=== PATIENT | female | born 1965 ===

== ENCOUNTER 2020-03-11 17:37 | Inpatient (IN) | payer MEDICAID, SELFPAY ==
--- NOTE | 2020-03-11 17:44 | XR_ITS ---
EXAMINATION: XR CHEST CLINICAL INFORMATION: Question: COMPARISON: Chest x-ray and chest CT 04/10/2019 TECHNIQUE: Frontal view of the chest was obtained. FINDINGS: Cardiac silhouette is stable in size. The lungs are well aerated. Similar mild diffuse coarsening of the interstitial markings. Subtle left basilar linear opacity most suggestive of atelectasis. No lobar consolidation. No pleural effusion or pneumothorax. XR/XR chest 1V IMPRESSION: Suspected left basilar atelectasis.
--- NOTE | 2020-03-11 17:44 | ECG_ITS ---
Test Reason : SOB Blood Pressure : / mmHG Vent. Rate : 081 BPM Atrial Rate : 081 BPM P-R Int : 152 ms QRS Dur : 096 ms QT Int : 418 ms P-R-T Axes : 082 -81 031 degrees QTc Int : 485 ms Normal sinus rhythm Possible Left atrial enlargement Left axis deviation Pulmonary disease pattern Prolonged QT Abnormal ECG When compared with ECG of 10-APR-2019 16:14, No significant change was found Referred By: Joel Greenwood Electronically Signed By:Johny Velazco
--- NOTE | 2020-03-11 17:52 | ED_ITS ---
HPI - SOB/Dyspnea General Chief Complaint: Dyspnea Stated Complaint: SOB Time Seen by Provider: 03/11/20 17:42 Source: patient Mode of arrival: EMS Limitations: language barrier History of Present Illness HPI Narrative: Patient history of asthma/COPD been sick for last 3 weeks her was diagnosed with COVID 4 weeks ago patient has been coughing mostly mucopurulent and increased shortness of breath for last 1 week patient denies any chest pain feeling weak tired no fever was saturating 80% at room air patie nt is on 3 L of oxygen 24 hours at home improved to 95% on non-rebreather MD elicited complaint: shortness of breath and cough Onset (ago): week(s) (3) Severity: moderate Relieving factors: oxygen Associated symptoms: pain with inspiration, cough and wheezing Treatment prior to arrival: oxygen Related Data Home oxygen amount: 3 liters Home Medications Medication Instructions Recorded Confirmed albuterol sulfate [ProAir HFA] 2 puff INHALATION Q4-6H PRN 03/11/20 03/11/20 amlodipine 5 mg PO DAILY 03/11/20 03/11/20 hydroxyzine pamoate 03/11/20 levothyroxine 175 mcg PO DAILY 03/11/20 03/11/20 lisinopril 40 mg PO DAILY 03/11/20 03/11/20 nicotine (polacrilex) 2 mg BUCCAL Q2H 03/11/20 03/11/20 pantoprazole PO 03/11/20 03/11/20 perphenazine mg 03/11/20 rosuvastatin 20 mg PO DAILY 03/11/20 03/11/20 sertraline 100 mg PO DAILY 03/11/20 03/11/20 umeclidinium [Incruse Ellipta] INHALATION 03/11/20 Allergies Allergy/AdvReac Type Severity Reaction Status Date / Time Penicillins [PENICILLINS] Allergy Unknown RED ITCHY Verified 03/11/20 18:01 RASH SEAFOOD Allergy Unknown FEVER Uncoded 12/13/19 16:37 SWELLING Review of Systems Review of Systems: REVIEW OF SYSTEMS: Pertinent positives and negatives are stated above in the history. GEN: no fevers, chills, fatigue ++ HEENT: no nasal congestion, sore throat, ear pain NEURO: no headache, dizziness, focal weakness PULM: Shortness of breath with cough CV: no chest pain, palpitations, LE edema ABD: no abdominal pain, nausea, vomiting, diarrhea : no dysuria, urgency, frequency SKIN: no rash ROS otherwise negative x 10 PMFSH Past Medical History Medical History COPD (chronic obstructive pulmonary disease) Hepatitis C HTN (hypertension) Hypothyroid Social History Social History Smoking Status: Current every day smoker Use of substances other than those prescribed or required for medical reasons: Yes Substance Use Type: Heroin Advance Directives: No Advance Directives Information Provided: Yes Physical Exam Vital Signs: Vital Signs: Last Vital Signs Temp 98.2 F 03/11/20 22:00 Pulse 89 03/11/20 22:00 Resp 14 03/11/20 22:00 BP 139/85 03/11/20 22:00 Pulse Ox 93 03/11/20 22:00 Body Mass Index 26.6 VITAL SIGNS: Reviewed. GENERAL: Well developed, well nourished, in moderate distress. HEAD: Normocephalic/atraumatic, EYES: PERRLA No pallor/icterus noted OROPHARYNX: Oral mucosa moist no oral lesions NECK: Supple, no adenopathy LUNGS: Prolonged breath sounds. Wheezing bilateral diffuse , + rales bilateral bases using accessory muscle use on non-rebreather CARDIOVASCULAR: Regular rate and rhythm without noted murmurs, no JVD or lower extremity edema. ABDOMEN: Soft, non-tender, non-distended with normal bowel sounds. No rigidity. No guarding. No palpable masses or hernias noted MUSCULOSKELETAL: No tenderness, deformities, EXTREMITIES: No cyanosis or edema. SKIN: no rashes, ulcerations, jaundice, pallor, NEUROLOGIC: Alert and oriented x 3. Strength and sensation to light touch were grossly intact normal speech MDM - SOB/Dyspnea MDM Narrative Medical decision making narrative: Patient with COPD with hypoxia on home oxygen COVID-19 is negative chest x-ray without any infiltrate patient is saturating now on Ventimask 90% will admit patient for COPD exacerbation Differential Diagnosis Differential diagnosis: Likely acute exacerbation of chronic obstructive airways disease and congestive heart failure Medical Records Attestation: I reviewed the patient's medical records. Lab Data Attestation: I reviewed the patient's lab results. Result diagrams: 03/11/20 18:25 03/11/20 18:25 Labs: Lab Results 03/11/20 03/11/20 03/11/20 Range/Units 18:25 18:25 18:25 WBC 7.8 (4.8-10.8) X10*3/uL RBC 6.31 H (4.20-5.50) X10*6/uL Hgb 17.7 H (12.0-16.0) g/dl Hct 58.1 H (37-47) % MCV 92.1 (80-98) fL MCH 28.1 (27.0-33.0) pg MCHC 30.5 L (31.0-35.0) g/dl RDW 19.2 H (11.0-16.0) % Plt Count 114 L (160-400) X10*3/uL MPV 11.8 (9.4-12.3) fL Immature Gran % (Auto) 0.3 (0.0-0.4) % Neut % (Auto) 46.2 (45-73) % Lymph % (Auto) 45.1 H (20-40) % [place] % (Auto) 5.3 (2-11) % Eos % (Auto) 2.3 (0-4) % Baso % (Auto) 0.8 (0-2) % Lymph # (Auto) 3.5 (1.2-4.9) X10*3/uL [place] # (Auto) 0.4 (0.1-1.2) X10*3/uL Eos # (Auto) 0.2 (0.0-0.4) X10*3/uL Baso # (Auto) 0.1 (0.0-0.2) X10*3/uL Abs Immat Gran (auto) 0.02 (0.00-0.03) X10*3/uL Absolute Neuts (auto) 3.6 (2.0-8.3) X10*3/uL Absolute Nucleated RBC 0.000 (0.0-0.012) X10*3/uL Nucleated RBC % (auto) 0.0 (0.0-0.2) /100WBC PT (10.8-13.0) SEC INR (0.9-1.1) D-Dimer NG/ML VBG pH (7.32-7.43) VBG pCO2 mmhg VBG pO2 mmhg VBG HCO3 mmol/L VBG O2 Saturation % VBG Base Excess mmol/L Sodium 139 (135-145) mmol/L Potassium 4.2 (3.3-5.1) mmol/l Chloride 99 (96-108) mmol/L Carbon Dioxide 29 (22-29) mmol/L Anion Gap 15 (12-20) BUN 7 L (9-16) mg/dL Creatinine 0.70 (0.5-1.4) mg/dL Estim Creat Clear Calc 92.7 Estimated GFR > 60 Random Glucose 81 (60-115) mg/dL Lactic Acid (0.5-2.0) mmol/L Calcium 8.2 L (8.4-10.2) mg/dL Total Bilirubin 0.9 (0.0-1.0) mg/dL Direct Bilirubin 0.4 (0.0-0.5) mg/dL AST 46 H (5-31) U/L ALT 25 (0-31) U/L Alkaline Phosphatase 118 H (39-117) U/L Troponin I High Sens < 3.5 (<3.5-17.0) ng/L Total Protein 8.5 H (6.5-8.0) g/dL Albumin 4.5 (3.5-5.0) g/dL Coronavirus (PCR) (Negative) Influenza Type A (PCR) (Negative) Influenza Type B (PCR) (Negative) RSV RNA Qual (PCR) (Negative) 03/11/20 03/11/20 03/11/20 Range/Units 18:25 18:25 18:44 WBC (4.8-10.8) X10*3/uL RBC (4.20-5.50) X10*6/uL Hgb (12.0-16.0) g/dl Hct (37-47) % MCV (80-98) fL MCH (27.0-33.0) pg MCHC (31.0-35.0) g/dl RDW (11.0-16.0) % Plt Count (160-400) X10*3/uL MPV (9.4-12.3) fL Immature Gran % (Auto) (0.0-0.4) % Neut % (Auto) (45-73) % Lymph % (Auto) (20-40) % [place] % (Auto) (2-11) % Eos % (Auto) (0-4) % Baso % (Auto) (0-2) % Lymph # (Auto) (1.2-4.9) X10*3/uL [place] # (Auto) (0.1-1.2) X10*3/uL Eos # (Auto) (0.0-0.4) X10*3/uL Baso # (Auto) (0.0-0.2) X10*3/uL Abs Immat Gran (auto) (0.00-0.03) X10*3/uL Absolute Neuts (auto) (2.0-8.3) X10*3/uL Absolute Nucleated RBC (0.0-0.012) X10*3/uL Nucleated RBC % (auto) (0.0-0.2) /100WBC PT 10.6 L (10.8-13.0) SEC INR 0.9 (0.9-1.1) D-Dimer 318 NG/ML VBG pH (7.32-7.43) VBG pCO2 mmhg VBG pO2 mmhg VBG HCO3 mmol/L VBG O2 Saturation % VBG Base Excess mmol/L Sodium (135-145) mmol/L Potassium (3.3-5.1) mmol/l Chloride (96-108) mmol/L Carbon Dioxide (22-29) mmol/L Anion Gap (12-20) BUN (9-16) mg/dL Creatinine (0.5-1.4) mg/dL Estim Creat Clear Calc Estimated GFR Random Glucose (60-115) mg/dL Lactic Acid 1.5 (0.5-2.0) mmol/L Calcium (8.4-10.2) mg/dL Total Bilirubin (0.0-1.0) mg/dL Direct Bilirubin (0.0-0.5) mg/dL AST (5-31) U/L ALT (0-31) U/L Alkaline Phosphatase (39-117) U/L Troponin I High Sens (<3.5-17.0) ng/L Total Protein (6.5-8.0) g/dL Albumin (3.5-5.0) g/dL Coronavirus (PCR) NEGATIVE (Negative) Influenza Type A (PCR) NEGATIVE (Negative) Influenza Type B (PCR) NEGATIVE (Negative) RSV RNA Qual (PCR) NEGATIVE (Negative) 03/11/20 Range/Units 20:14 WBC (4.8-10.8) X10*3/uL RBC (4.20-5.50) X10*6/uL Hgb (12.0-16.0) g/dl Hct (37-47) % MCV (80-98) fL MCH (27.0-33.0) pg MCHC (31.0-35.0) g/dl RDW (11.0-16.0) % Plt Count (160-400) X10*3/uL MPV (9.4-12.3) fL Immature Gran % (Auto) (0.0-0.4) % Neut % (Auto) (45-73) % Lymph % (Auto) (20-40) % [place] % (Auto) (2-11) % Eos % (Auto) (0-4) % Baso % (Auto) (0-2) % Lymph # (Auto) (1.2-4.9) X10*3/uL [place] # (Auto) (0.1-1.2) X10*3/uL Eos # (Auto) (0.0-0.4) X10*3/uL Baso # (Auto) (0.0-0.2) X10*3/uL Abs Immat Gran (auto) (0.00-0.03) X10*3/uL Absolute Neuts (auto) (2.0-8.3) X10*3/uL Absolute Nucleated RBC (0.0-0.012) X10*3/uL Nucleated RBC % (auto) (0.0-0.2) /100WBC PT (10.8-13.0) SEC INR (0.9-1.1) D-Dimer NG/ML VBG pH 7.31 L (7.32-7.43) VBG pCO2 56 mmhg VBG pO2 95 mmhg VBG HCO3 28 mmol/L VBG O2 Saturation 97.2 % VBG Base Excess -0.2 mmol/L Sodium (135-145) mmol/L Potassium (3.3-5.1) mmol/l Chloride (96-108) mmol/L Carbon Dioxide (22-29) mmol/L Anion Gap (12-20) BUN (9-16) mg/dL Creatinine (0.5-1.4) mg/dL Estim Creat Clear Calc Estimated GFR Random Glucose (60-115) mg/dL Lactic Acid (0.5-2.0) mmol/L Calcium (8.4-10.2) mg/dL Total Bilirubin (0.0-1.0) mg/dL Direct Bilirubin (0.0-0.5) mg/dL AST (5-31) U/L ALT (0-31) U/L Alkaline Phosphatase (39-117) U/L Troponin I High Sens (<3.5-17.0) ng/L Total Protein (6.5-8.0) g/dL Albumin (3.5-5.0) g/dL Coronavirus (PCR) (Negative) Influenza Type A (PCR) (Negative) Influenza Type B (PCR) (Negative) RSV RNA Qual (PCR) (Negative) ABG Data ABG results: Venous gases showed hypoxia mild CO2 retention respiratory acidosis Discharge Plan Discharge Clinical Impression: Acute exacerbation of chronic obstructive airways disease, Hypoxia Patient Disposition: Admitted As Inpatient
[2020-03-11 17:53] VITALS: BP 130/80; BP 134/92; PULSE 120; PULSE 81; RESP 20; TEMP 36.7; O2SAT 80; O2SAT 91; BMI 26.6
[2020-03-11 18:08] VITALS: PULSE 86; O2SAT 92
[2020-03-11] MEDS: Albuterol Sulfate 90 MCG 8 GM INHALER 4 PUFF INHALE (18:08)
[2020-03-11 18:34] LABS: PLT CLUMP 1; SCAN SMEAR FLAG 1
[2020-03-11 18:36] LABS: Basophils Absolute Auto 0.1 X10*3/uL (0.0-0.2); Basophils Percent Auto 0.8 % (0-2); Eosinophils Absolute Auto 0.2 X10*3/uL (0.0-0.4); Eosinophils Percent Auto 2.3 % (0-4); Hemoglobin 17.7 g/dl (12.0-16.0); Imm Gran Abs Auto 0.02 X10*3/uL (0.00-0.03); Imm Gran Pct Auto 0.3 % (0.0-0.4); Lymphocytes Absolute Auto 3.5 X10*3/uL (1.2-4.9); Lymphocytes Percent Auto 45.1 % (20-40); MANUAL DIFF FLAG NO; Mean Corpuscular HGB Conc 30.5 g/dl (31.0-35.0); Mean Corpuscular Hemoglobin 28.1 pg (27.0-33.0); Mean Corpuscular Volume 92.1 fL (80-98); Mean Platelet Volume 11.8 fL (9.4-12.3); Monocytes Absolute Auto 0.4 X10*3/uL (0.1-1.2); Monocytes Percent Auto 5.3 % (2-11); Neutrophils Absolute Auto 3.6 X10*3/uL (2.0-8.3); Neutrophils Percent Auto 46.2 % (45-73); Platelet Count 114 X10*3/uL (160-400); Red Blood Count 6.31 X10*6/uL (4.20-5.50); Red Cell Distribution Width 19.2 % (11.0-16.0); White Blood Count 7.8 X10*3/uL (4.8-10.8)
[2020-03-11 18:37] LABS: Hematocrit 58.1 % (37-47)
[2020-03-11 18:50] LABS: INTERNATIONAL NORM RATIO 0.9 (0.9-1.1); Prothrombin Time 10.6 SEC (10.8-13.0)
[2020-03-11 18:53] LABS: D Dimer 318 NG/ML
--- NOTE | 2020-03-11 18:56 | PC.NURSE ---
Pt presented to ED with NRB, SOB x 3 weeks, recently diagnosed with COVID x 1 month ago. Pt denies fevers but productive cough with green sputum. Home 02 dependent on 3lpm via nc. IV established by EMS, bld cultures obtained x 2 and other labs/COVID swab sent. Pt placed on venti mask at 55% and tolerating well with sat around 93%, now able to speak 5-6 word sentences with minimal SOB.
[2020-03-11 18:57] LABS: Anion Gap 15 (12-20); Blood Urea Nitrogen 7 mg/dL (9-16); Calcium 8.2 mg/dL (8.4-10.2); Carbon Dioxide 29 mmol/L (22-29); Chloride 99 mmol/L (96-108); Creatinine Clr Calc Pharmacy 92.7; Estimated Glomerular Filt Rate > 60; Glucose Random 81 mg/dL (60-115); Potassium 4.2 mmol/l (3.3-5.1); Sodium 139 mmol/L (135-145)
[2020-03-11 19:04] LABS: Troponin-I High Sensitivity < 3.5 ng/L (<3.5-17.0)
[2020-03-11 19:18] LABS: Lactic Acid 1.5 mmol/L (0.5-2.0)
[2020-03-11 19:23] LABS: Influenza A PCR NEGATIVE (Negative); Influenza B PCR NEGATIVE (Negative); Resp Syncy Virus RNA Qual PCR NEGATIVE (Negative); SARS COV2 PCR INHOUSE NEGATIVE (Negative)
[2020-03-11 19:59] LABS: Alanine Aminotransferase 25 U/L (0-31); Albumin Level 4.5 g/dL (3.5-5.0); Alkaline Phosphatase 118 U/L (39-117); Aspartate Amino Transferase 46 U/L (5-31); Bilirubin Direct 0.4 mg/dL (0.0-0.5); Bilirubin Total 0.9 mg/dL (0.0-1.0); Total Protein 8.5 g/dL (6.5-8.0)
[2020-03-11 20:00] VITALS: BP 132/86; PULSE 80; RESP 17; TEMP 37.1; O2SAT 90
[2020-03-11 20:21] LABS: PCO2 VBG 56 mmhg; PO2 VBG 95 mmhg; pH VBG 7.31 (7.32-7.43)
[2020-03-11 20:22] LABS: Base Excess VBG -0.2 mmol/L; HCO3 VBG 28 mmol/L; Oxygen Saturation VBG 97.2 %
[2020-03-11] MEDS: Albuterol/Iprat 2.5/0.5MG 3 ML AMPUL.NEB INHALE (20:31)
[2020-03-11] MEDS: Albuterol Sulfate (0.083%) 2.5 MG/3 ML VIAL.NEB 5 MG INHALE (20:31)
[2020-03-11 20:32] VITALS: PULSE 80; O2SAT 92
[2020-03-11] MEDS: 0.9 % Sodium Chloride 1,000 ML 999 ML IVCONT (20:36)
[2020-03-11] MEDS: cefTRIAXone sodium 1 GM in 0.9 % Sodium Chloride 50 ML IV (20:36)
[2020-03-11 22:00] VITALS: BP 139/85; PULSE 89; RESP 14; TEMP 36.8; O2SAT 93
[2020-03-12] VITALS: BP 125/77; PULSE 88; RESP 12; O2SAT 91
--- NOTE | 2020-03-12 00:25 | P.HPHOSP_ITS ---
History of Present Illness Date of Service: 03/12/20 Chief Complaint: SOB 54 y/o female with an extensive PMHX who presented from home due to SOB. Per history provided by the patient, reports that she is on home oxygen 3 liters of end stage COPD. In the recent days patient has noted worsening difficulty breathing which has not been improving with her O2 therapy and albuterol inhaler for what decided to come to the ED. Denies any chest pain, nausea, vomiting, diarrhea or fever. Denies any sick contacts or recent travel. On presentation to the ED vitals were stable but O2 sat was found to be in the 80's. At present patient is on venti mask saturating around 94-95%. Decision for admission given for COPD exacerbation. Patient given per ED albuterol, rocephin and dexamethasone. Patient seen and examined a the bedside, laying down in bed in no acute distress. ROS as above otherwise negative. Physical exam positive for mild wheezes diffusely, no rales or crackles. PMHX: COPD, HTN, HYpothyroidism, HLP, Psychosis, Smoker and Heroin abuser PSx; none Toxic habits; Smoker, Heroin abuser Review of Systems Constitutional: Constitutional: Reports as per [facility] Medical History COPD (chronic obstructive pulmonary disease) Hepatitis C HTN (hypertension) Hypothyroid Functional capacity: independent ambulation Social History Smoking Status: Current every day smoker Use of substances other than those prescribed or required for medical reasons: Yes Substance Use Type: Heroin Advance Directives: No Advance Directives Information Provided: Yes Meds Allergies Allergy/AdvReac Type Severity Reaction Status Date / Time Penicillins [PENICILLINS] Allergy Unknown RED ITCHY Verified 03/11/20 18:01 RASH SEAFOOD Allergy Unknown FEVER Uncoded 12/13/19 16:37 SWELLING Home Medications Medication Instructions Recorded Confirmed Type albuterol sulfate [ProAir HFA] 2 puff INHALATION Q4-6H PRN 03/11/20 03/11/20 History amlodipine 5 mg PO DAILY 03/11/20 03/11/20 History hydroxyzine pamoate 03/11/20 History levothyroxine 175 mcg PO DAILY 03/11/20 03/11/20 History lisinopril 40 mg PO DAILY 03/11/20 03/11/20 History nicotine (polacrilex) 2 mg BUCCAL Q2H 03/11/20 03/11/20 History pantoprazole PO 03/11/20 03/11/20 History perphenazine mg 03/11/20 History rosuvastatin 20 mg PO DAILY 03/11/20 03/11/20 History sertraline 100 mg PO DAILY 03/11/20 03/11/20 History umeclidinium [Incruse Ellipta] INHALATION 03/11/20 History Physical Exam Vital Signs and Narrative: Vital Signs: Last Vital Signs Temp 98.2 F 03/11/20 22:00 Pulse 88 03/12/20 00:00 Resp 12 03/12/20 00:00 BP 125/77 03/12/20 00:00 Pulse Ox 91 L 03/12/20 00:00 Body Mass Index 26.6 Const: General: cooperative, healthy appearing and comfortable Orientation/consciousness: oriented to person, oriented to place and oriented to time HENMT: Head: Yes normal to inspection Eyes: General: appearance normal, both eyes and all related structures Neck: Yes normal visual inspection Chest: Chest palpation & inspection: normal inspection of the chest Resp: Effort & Inspection: normal respiratory effort Auscultation: wheezes Cardio: Jugular venous distension: no JVD Rate: regular rate Rhythm: regular rhythm Heart sounds: S1 normal heart sound present and S2 normal heart sound present GI: Inspection: Yes normal to inspection Skin: General skin exam: no rashes or lesions noted Neuro: General: oriented to person, oriented to place and oriented to time Cognition (Neuro): normal cognition Extrem: General: Yes normal to inspection Results Labs CBC and Chem 7: 03/11/20 18:25 03/11/20 18:25 Labs: Laboratory Results - last 24 hr 03/11/20 03/11/20 03/11/20 18:25 18:25 18:25 MCV 92.1 MCH 28.1 MCHC 30.5 L RDW 19.2 H Plt Count 114 L MPV 11.8 Immature Gran % (Auto) 0.3 Neut % (Auto) 46.2 Lymph % (Auto) 45.1 H [place] % (Auto) 5.3 Eos % (Auto) 2.3 Baso % (Auto) 0.8 Lymph # (Auto) 3.5 [place] # (Auto) 0.4 Eos # (Auto) 0.2 Baso # (Auto) 0.1 Abs Immat Gran (auto) 0.02 Absolute Neuts (auto) 3.6 Absolute Nucleated RBC 0.000 Nucleated RBC % (auto) 0.0 PT INR D-Dimer VBG pH VBG pCO2 VBG pO2 VBG HCO3 VBG O2 Saturation VBG Base Excess Anion Gap 15 Estim Creat Clear Calc 92.7 Estimated GFR > 60 Random Glucose 81 Lactic Acid Calcium 8.2 L Total Bilirubin 0.9 Direct Bilirubin 0.4 AST 46 H ALT 25 Alkaline Phosphatase 118 H Troponin I High Sens < 3.5 Total Protein 8.5 H Albumin 4.5 Coronavirus (PCR) Influenza Type A (PCR) Influenza Type B (PCR) RSV RNA Qual (PCR) 03/11/20 03/11/20 03/11/20 18:25 18:25 18:44 MCV MCH MCHC RDW Plt Count MPV Immature Gran % (Auto) Neut % (Auto) Lymph % (Auto) [place] % (Auto) Eos % (Auto) Baso % (Auto) Lymph # (Auto) [place] # (Auto) Eos # (Auto) Baso # (Auto) Abs Immat Gran (auto) Absolute Neuts (auto) Absolute Nucleated RBC Nucleated RBC % (auto) PT 10.6 L INR 0.9 D-Dimer 318 VBG pH VBG pCO2 VBG pO2 VBG HCO3 VBG O2 Saturation VBG Base Excess Anion Gap Estim Creat Clear Calc Estimated GFR Random Glucose Lactic Acid 1.5 Calcium Total Bilirubin Direct Bilirubin AST ALT Alkaline Phosphatase Troponin I High Sens Total Protein Albumin Coronavirus (PCR) NEGATIVE Influenza Type A (PCR) NEGATIVE Influenza Type B (PCR) NEGATIVE RSV RNA Qual (PCR) NEGATIVE 03/11/20 20:14 MCV MCH MCHC RDW Plt Count MPV Immature Gran % (Auto) Neut % (Auto) Lymph % (Auto) [place] % (Auto) Eos % (Auto) Baso % (Auto) Lymph # (Auto) [place] # (Auto) Eos # (Auto) Baso # (Auto) Abs Immat Gran (auto) Absolute Neuts (auto) Absolute Nucleated RBC Nucleated RBC % (auto) PT INR D-Dimer VBG pH 7.31 L VBG pCO2 56 VBG pO2 95 VBG HCO3 28 VBG O2 Saturation 97.2 VBG Base Excess -0.2 Anion Gap Estim Creat Clear Calc Estimated GFR Random Glucose Lactic Acid Calcium Total Bilirubin Direct Bilirubin AST ALT Alkaline Phosphatase Troponin I High Sens Total Protein Albumin Coronavirus (PCR) Influenza Type A (PCR) Influenza Type B (PCR) RSV RNA Qual (PCR) Imaging Radiologist's Impressions: Impressions Chest X-Ray 03/11/20 17:44 IMPRESSION: Suspected left basilar atelectasis. Assessment and Plan (1) Acute exacerbation of chronic obstructive airways disease: Status: Acute Acute on chronic respiratory failure likely secondary to COPD exacerbation Continue with Albuterol inhalers as ordered Continue with IV steroid therapy and taper off as tolerated Continue with O2 therapy and titrate down as tolerated to home oxygen requirements Pulmnology consult in the am No antbx at present as there is no evidence of any underlying infectious process Covid test negative Follow up Bcx as ordered (2) Psychosis: Status: Acute continue with home meds as ordered (3) Hyperlipidemia: Status: Inactive continue with home meds as ordered (4) Hypothyroid: Status: Acute continue with home meds as ordered (5) HTN (hypertension): Status: Acute continue with home meds as ordered
--- NOTE | 2020-03-12 00:40 | PC.NURSE ---
PATIENT TAKING HERSELF OFF THE VENTI MASK THIS IS TOO MUCH FOR ME , PLACED ON 4L NASAL CANNULA, O2 SATS ARE AT 89% AND PATIENT DOES NOT HAVE DISTRESS AT THIS TIME. STATING NOT FEELING SOB. RESP THERAPIST AT BEDSIDE AND AWARE. PATIENT NORMALLY WEARS 3L CONTINUOUSLY AT HOME AT BASELINE. WILL MONITOR FOR CHANGES CLOSELY.
[2020-03-12 00:53] VITALS: BP 133/84; PULSE 81; RESP 12; O2SAT 89
--- NOTE | 2020-03-12 00:56 | PC.NURSE ---
CALLED [facility] FOR REPORT, AWAITING RETURN CALL FROM NURSE
[2020-03-12 06:38] VITALS: BP 133/70; PULSE 75; RESP 20; TEMP 36.6; O2SAT 93
[2020-03-12 07:28] VITALS: BP 146/94; PULSE 70; RESP 19; TEMP 36.2; O2SAT 91
[2020-03-12 08:00] VITALS: BP 146/94; PULSE 70; RESP 19; TEMP 36.2; O2SAT 91
[2020-03-12 08:17] LABS: Basophils Percent Auto 0.2 % (0-2); MANUAL DIFF FLAG SCAN; SCAN SMEAR FLAG 1
[2020-03-12 08:18] LABS: Hemoglobin 16.8 g/dl (12.0-16.0); Imm Gran Abs Auto 0.01 X10*3/uL (0.00-0.03); Imm Gran Pct Auto 0.2 % (0.0-0.4); Lymphocytes Absolute Auto 0.7 X10*3/uL (1.2-4.9); Lymphocytes Percent Auto 15.2 % (20-40); Mean Corpuscular HGB Conc 30.4 g/dl (31.0-35.0); Mean Corpuscular Hemoglobin 27.6 pg (27.0-33.0); Mean Corpuscular Volume 90.8 fL (80-98); Monocytes Absolute Auto 0.2 X10*3/uL (0.1-1.2); Monocytes Percent Auto 3.5 % (2-11); Neutrophils Absolute Auto 3.7 X10*3/uL (2.0-8.3); Neutrophils Percent Auto 80.9 % (45-73); Platelet Count 105 X10*3/uL (160-400); Red Blood Count 6.08 X10*6/uL (4.20-5.50); Red Cell Distribution Width 18.9 % (11.0-16.0); White Blood Count 4.5 X10*3/uL (4.8-10.8)
[2020-03-12 08:23] LABS: Hematocrit 55.2 % (37-47)
[2020-03-12 08:24] LABS: PLT ABN DIST 1
[2020-03-12] MEDS: amLODIPine Besylate 5 MG TABLET PO (08:41)
[2020-03-12] MEDS: lisinopriL 40 MG TABLET PO (08:42)
[2020-03-12] MEDS: Nicotine Polacrilex 2 MG GUM BUCCAL ×4 (08:42→21:30)
[2020-03-12] MEDS: Levothyroxine Sodium 175 MCG TABLET PO (08:42)
[2020-03-12] MEDS: Heparin Sodium,Porcine 5,000 UNIT/ML VIAL 5000 UNIT SUBCUT ×2 (08:43→17:20)
[2020-03-12] MEDS: Sertraline HCL 100 MG TABLET PO (08:43)
[2020-03-12] MEDS: Atorvastatin Calcium 80 MG TABLET PO (08:43)
[2020-03-12 08:50] LABS: Anion Gap 13 (12-20); Blood Urea Nitrogen 7 mg/dL (9-16); Calcium 8.3 mg/dL (8.4-10.2); Carbon Dioxide 28 mmol/L (22-29); Chloride 101 mmol/L (96-108); Creatinine Clr Calc Pharmacy 98.3; Estimated Glomerular Filt Rate > 60; Glucose Random 113 mg/dL (60-115); Potassium 4.4 mmol/l (3.3-5.1); Sodium 138 mmol/L (135-145)
[2020-03-12 10:35] LABS: SLIDE REVIEW VERIFIED
[2020-03-12] MEDS: 0.9 % Sodium Chloride Flush 3 ML SYRINGE IVFLUSH ×2 (14:11→17:21)
[2020-03-12 15:16] VITALS: BP 144/83; PULSE 80; RESP 18; TEMP 36.8; O2SAT 92
--- NOTE | 2020-03-12 15:43 | PM.CNPUL ---
History of Present Illness History of Present Illness Consult date: 03/12/20 Requesting physician: Kristen Pyle Reason for consult: COPD Chief complaint: COPD EXACERBATION Narrative: 54-year-old lady with underlying history of severe COPD on 3 L supplemental oxygen, hypertension, hypothyroidism, symptoms abuse admitted on 03/12/2020 with 3 day history of worsening dyspnea associated with wheezing. On ER evaluation patient was noted to be in acute COPD exacerbation was admitted for further treatment. She was started on systemic glucocorticoids, nebulized bronchodilators, and ceftriaxone and admitted to [facility] for further management. This morning she states that dyspnea is improving. Her within is getting better, her oxygen requirements are close to her baseline. Review of Systems Constitutional: Constitutional: Denies malaise and Denies weakness Eyes: Eyes: Denies change in vision and Denies loss of vision ENT: Denies dizziness Cardiovascular: Cardiovascular: Denies chest pain, Reports dyspnea, Reports dyspnea on exertion and Denies paroxysmal nocturnal dyspnea Respiratory: Respiratory: Denies cough, Reports dyspnea, Reports dyspnea on exertion and Reports wheezing Gastrointestinal: Gastrointestinal: Denies constipation and Denies diarrhea Genitourinary: Genitourinary: Denies difficulty voiding, Denies urinary incontinence and Denies urinary urgency Musculoskeletal: Musculoskeletal: Denies myalgias and Denies muscle weakness Integumentary/Breasts: Skin/Breast: Denies rash Neurologic: Denies dizziness, Denies loss of vision and Denies weakness Endocrine: Endocrine: Denies cold intolerance and Denies heat intolerance Allergic/Immunologic: Allergic/Immunologic: Reports wheezing PMFSH Past Medical History Medical History COPD (chronic obstructive pulmonary disease) Hepatitis C HTN (hypertension) Hyperlipidemia Hypothyroid Functional capacity: independent ambulation Social History Social History Household Members: Spouse Housing: Apartment Do you presently have visiting nurse or other home services: Yes Smoking Status: Current every day smoker Tobacco Type: Cigarette Packs Per Day: 2 Cigarettes Per Day: 40.0 Smoked in Last 30 Days: Yes Patient Interested in Nicotine Replacement: No Second Hand Smoke Exposure: Yes Use of substances other than those prescribed or required for medical reasons: No Substance Use Type: Heroin Have you been hit, kicked, punched, or otherwise hurt by someone within the past year? If so, by whom?: No Do you feel safe in your current relationship?: No Is there a partner from a previous relationship who is making you feel unsafe now?: No Are you made to feel afraid or neglected: No Advance Directives: No Advance Directives Information Provided: Yes Do you have thoughts of harming others: None Do you have a plan to hurt others: No Plan Recently lost weight without trying: No Meds Allergies Allergy/AdvReac Type Severity Reaction Status Date / Time Penicillins [PENICILLINS] Allergy Unknown RED ITCHY Verified 03/11/20 18:01 RASH SEAFOOD Allergy Unknown FEVER Uncoded 12/13/19 16:37 SWELLING Home Medications Medication Instructions Recorded Confirmed Type albuterol sulfate [ProAir HFA] 2 puff INHALATION Q4-6H PRN 03/11/20 03/11/20 History amlodipine 5 mg PO DAILY 03/11/20 03/11/20 History hydroxyzine pamoate 03/11/20 History levothyroxine 175 mcg PO DAILY 03/11/20 03/11/20 History lisinopril 40 mg PO DAILY 03/11/20 03/11/20 History nicotine (polacrilex) 2 mg BUCCAL Q2H 03/11/20 03/11/20 History pantoprazole PO 03/11/20 03/11/20 History perphenazine mg 03/11/20 History rosuvastatin 20 mg PO DAILY 03/11/20 03/11/20 History sertraline 100 mg PO DAILY 03/11/20 03/11/20 History umeclidinium [Incruse Ellipta] INHALATION 03/11/20 History methadone 78 mg PO DAILY 03/12/20 03/12/20 History Physical Exam Vital Signs: Vital Signs: Last Vital Signs Temp 98.2 F 03/12/20 15:16 Pulse 80 03/12/20 15:16 Resp 18 03/12/20 15:16 BP 144/83 H 03/12/20 15:16 Pulse Ox 92 03/12/20 15:16 Body Mass Index 26.6 Const: General: no acute distress, alert and awake Eyes: Sclerae: sclerae normal EOM: EOMs intact bilaterally Neck: Neck: Yes no lymphadenopathy, Yes trachea midline and Yes supple Resp: Effort & Inspection: normal respiratory effort and no respiratory distress Auscultation: wheezes (Bilateral expiratory) Cardio: Rate: regular rate Rhythm: regular rhythm Heart sounds: no gallops, no murmurs and no rubs GI: Palpation (GI): Soft to palpation and Other GI palpation findings present ( Nontender) Auscultation: normal bowel sounds Extrem: General: Yes no pedal edema, No clubbing and No cyanosis Results Laboratory Findings CBC and BMP: 03/12/20 07:51 03/12/20 07:51 ABG, PT/INR, D-dimer: PT/INR, D-dimer PT 10.6 SEC (10.8-13.0) L 03/11/20 18:25 INR 0.9 (0.9-1.1) 03/11/20 18:25 D-Dimer 318 NG/ML 03/11/20 18:25 Abnormal lab findings: Abnormal Labs 03/11/20 03/11/20 03/11/20 18:25 18:25 18:25 WBC RBC 6.31 H Hgb 17.7 H Hct 58.1 H MCHC 30.5 L RDW 19.2 H Plt Count 114 L Neut % (Auto) Lymph % (Auto) 45.1 H Lymph # (Auto) PT 10.6 L VBG pH BUN 7 L Calcium 8.2 L AST 46 H Alkaline Phosphatase 118 H Total Protein 8.5 H 03/11/20 03/12/20 03/12/20 20:14 07:51 07:51 WBC 4.5 L RBC 6.08 H Hgb 16.8 H Hct 55.2 H MCHC 30.4 L RDW 18.9 H Plt Count 105 L Neut % (Auto) 80.9 H Lymph % (Auto) 15.2 L Lymph # (Auto) 0.7 L PT VBG pH 7.31 L BUN 7 L Calcium 8.3 L AST Alkaline Phosphatase Total Protein Assessment and Plan (1) COPD exacerbation: Status: Acute Impression: Acute on chronic hypoxic and hypercapnic respiratory failure secondary to bronchitic exacerbation of underlying COPD. Recommendations: Agree with 5 day course of Solu-Medrol 40 mg daily. Agree with inhaled bronchodilators. Consider 5 day course of azithromycin for its anti-inflammatory effect in patients with an acute exacerbation of underlying COPD. (2) Acute on chronic respiratory failure with hypoxia and hypercapnia: Status: Acute
[2020-03-13] VITALS: BP 135/89; PULSE 66; RESP 20; TEMP 36.5; O2SAT 94
[2020-03-13] MEDS: Heparin Sodium,Porcine 5,000 UNIT/ML VIAL 5000 UNIT SUBCUT ×2 (00:51→08:11)
[2020-03-13] MEDS: 0.9 % Sodium Chloride Flush 3 ML SYRINGE IVFLUSH ×2 (00:54→08:12)
[2020-03-13] MEDS: Acetaminophen 325 MG TABLET 650 MG PO (04:28)
[2020-03-13 07:51] VITALS: BP 146/96; PULSE 72; RESP 18; TEMP 37.1; O2SAT 92
[2020-03-13 08:10] VITALS: BP 146/96; PULSE 72
[2020-03-13] MEDS: lisinopriL 40 MG TABLET PO (08:10)
[2020-03-13] MEDS: amLODIPine Besylate 5 MG TABLET PO (08:10)
[2020-03-13] MEDS: Atorvastatin Calcium 80 MG TABLET PO (08:10)
[2020-03-13] MEDS: Levothyroxine Sodium 175 MCG TABLET PO (08:11)
[2020-03-13] MEDS: Sertraline HCL 100 MG TABLET PO (08:11)
[2020-03-13] MEDS: Nicotine Polacrilex 2 MG GUM BUCCAL (08:29)
--- NOTE | 2020-03-13 10:25 | PM.DS ---
DS: Providers Provider Date of admission: 03/12/20 00:24 Primary care physician: Unknown Physician Consults: 03/12/20 00:24 Consult to Pulmonology Routine Consulting Provider: [facility] Reason for consultation: COPD exacerbation Has provider been notified: No DS: Diagnosis Discharge Diagnosis (1) COPD exacerbation: Status: Resolved (2) Acute on chronic respiratory failure with hypoxia and hypercapnia: Status: Resolved DS: Medications Discharge Medications Home Medications: Home Medications Medication Instructions Recorded Confirmed albuterol sulfate [ProAir HFA] 2 puff INHALATION Q4-6H PRN 03/11/20 03/11/20 amlodipine 5 mg PO DAILY 03/11/20 03/11/20 hydroxyzine pamoate 03/11/20 levothyroxine 175 mcg PO DAILY 03/11/20 03/11/20 lisinopril 40 mg PO DAILY 03/11/20 03/11/20 nicotine (polacrilex) 2 mg BUCCAL Q2H 03/11/20 03/11/20 pantoprazole PO 03/11/20 03/11/20 perphenazine mg 03/11/20 rosuvastatin 20 mg PO DAILY 03/11/20 03/11/20 sertraline 100 mg PO DAILY 03/11/20 03/11/20 umeclidinium [Incruse Ellipta] INHALATION 03/11/20 methadone 78 mg PO DAILY 03/12/20 03/12/20 DS: Summary Hospital Course Hospital Course: 54 y/o female with an extensive PMHX who presented from home due to SOB. Per history provided by the patient, reports that she is on home oxygen 3 liters of end stage COPD. In the recent days patient has noted worsening difficulty breathing which has not been improving with her O2 therapy and albuterol inhaler for what decided to come to the ED. Denies any chest pain, nausea, vomiting, diarrhea or fever. Denies any sick contacts or recent travel. On presentation to the ED vitals were stable but O2 sat was found to be in the 80's. At present patient is on venti mask saturating around 94-95%. Decision for admission given for COPD exacerbation. Patient given per ED albuterol, rocephin and dexamethasone. Hospital course: Patient was admitted and treated with IV corticosteroid and bronchodilators by [facility] and is feeling better and will be discharge with Prednisone for total of 5 days. Advised to stop smoking and follow up with PCP Time spent discussing smoking cessation with patient: 3 to 10 minutes Status at Discharge Functional status at discharge: independent ambulation Time Spent with Patient Time attestation: Total time spent providing and/or coordinating discharge services: Physical Exam Vital Signs: Vital Signs: Last Vital Signs Temp 98.7 F 03/13/20 07:51 Pulse 72 03/13/20 08:10 Resp 18 03/13/20 07:51 BP 146/96 H 03/13/20 08:10 Pulse Ox 92 03/13/20 07:51 Body Mass Index 26.6 Const: Other: General: AO X 3, no acute distress Resp: CTA bilateral CVS: S1,S2,RRR GI: +BS, NT, no distention Skin: No rash Neuro: motor grossly intact Psych: appropriate affect DS: Data Data Completed and Pending Labs on day of discharge: 03/11/20 17:44 ECG 12 lead EKG Stat EKG Documentation DIRECTED XR chest 1V Stat 03/11/20 17:45 Continuous Cardiac Monitoring NOW Albuterol Sulfate [Ventolin] 4 puff INHALE ONCE ONE dexAMETHasone Sod Phosphate/PF [Decadron] 10 mg IVPUSH ONCE ONE 03/11/20 18:25 Basic Metabolic Panel Stat Complete Blood Count Auto Diff Stat D Dimer Stat Liver Panel Stat Prothrombin Time INR Stat SARS-CoV2/FLU/RSV Stat Troponin-I High Sensitivity Stat 03/11/20 18:44 Lactic Acid Stat 03/11/20 20:13 Albuterol Sulfate (0.083%) [Ventolin (0.083%)] 5 mg INHALE ONCE ONE Albuterol/Iprat 2.5/0.5MG 3 ML [Duoneb] 3 ml INHALE ONCE ONE 03/11/20 20:14 Venous Blood Gas Stat cefTRIAXone sodium [Rocephin] 1 gm 0.9 % Sodium Chloride [Ns] 50 ml IV ONCE 03/11/20 20:15 0.9 % Sodium Chloride [Ns] 1,000 ml IVCONT 999 mls/hr 03/11/20 20:26 cefTRIAXone sodium [Rocephin] 1 gm .ROUTE .STK-MED ONE 03/12/20 00:21 Transfer Order Routine 03/12/20 07:51 Basic Metabolic Panel Routine Complete Blood Count Auto Diff Routine SLIDE REVIEW Routine 03/13/20 04:07 Acetaminophen [Tylenol] 650 mg PO ONCE ONE Laboratory Last Values WBC 4.5 X10*3/uL (4.8-10.8) L 03/12/20 07:51 RBC 6.08 X10*6/uL (4.20-5.50) H 03/12/20 07:51 Hgb 16.8 g/dl (12.0-16.0) H 03/12/20 07:51 Hct 55.2 % (37-47) H 03/12/20 07:51 MCV 90.8 fL (80-98) 03/12/20 07:51 MCH 27.6 pg (27.0-33.0) 03/12/20 07:51 MCHC 30.4 g/dl (31.0-35.0) L 03/12/20 07:51 RDW 18.9 % (11.0-16.0) H 03/12/20 07:51 Plt Count 105 X10*3/uL (160-400) L 03/12/20 07:51 MPV Not Reportable 03/12/20 07:51 Immature Gran % (Auto) 0.2 % (0.0-0.4) 03/12/20 07:51 Neut % (Auto) 80.9 % (45-73) H 03/12/20 07:51 Lymph % (Auto) 15.2 % (20-40) L 03/12/20 07:51 [place] % (Auto) 3.5 % (2-11) 03/12/20 07:51 Eos % (Auto) 0.0 % (0-4) 03/12/20 07:51 Baso % (Auto) 0.2 % (0-2) 03/12/20 07:51 Lymph # (Auto) 0.7 X10*3/uL (1.2-4.9) L 03/12/20 07:51 [place] # (Auto) 0.2 X10*3/uL (0.1-1.2) 03/12/20 07:51 Eos # (Auto) 0.0 X10*3/uL (0.0-0.4) 03/12/20 07:51 Baso # (Auto) 0.0 X10*3/uL (0.0-0.2) 03/12/20 07:51 Abs Immat Gran (auto) 0.01 X10*3/uL (0.00-0.03) 03/12/20 07:51 Absolute Neuts (auto) 3.7 X10*3/uL (2.0-8.3) 03/12/20 07:51 Absolute Nucleated RBC 0.000 X10*3/uL (0.0-0.012) 03/12/20 07:51 Nucleated RBC % (auto) 0.0 /100WBC (0.0-0.2) 03/12/20 07:51 Smear Tech's Comments VERIFIED 03/12/20 07:51 PT 10.6 SEC (10.8-13.0) L 03/11/20 18:25 INR 0.9 (0.9-1.1) 03/11/20 18:25 D-Dimer 318 NG/ML 03/11/20 18:25 VBG pH 7.31 (7.32-7.43) L 03/11/20 20:14 VBG pCO2 56 mmhg 03/11/20 20:14 VBG pO2 95 mmhg 03/11/20 20:14 VBG HCO3 28 mmol/L 03/11/20 20:14 VBG O2 Saturation 97.2 % 03/11/20 20:14 VBG Base Excess -0.2 mmol/L 03/11/20 20:14 Sodium 138 mmol/L (135-145) 03/12/20 07:51 Potassium 4.4 mmol/l (3.3-5.1) 03/12/20 07:51 Chloride 101 mmol/L (96-108) 03/12/20 07:51 Carbon Dioxide 28 mmol/L (22-29) 03/12/20 07:51 Anion Gap 13 (12-20) 03/12/20 07:51 BUN 7 mg/dL (9-16) L 03/12/20 07:51 Creatinine 0.66 mg/dL (0.5-1.4) 03/12/20 07:51 Estim Creat Clear Calc 98.3 03/12/20 07:51 Estimated GFR > 60 03/12/20 07:51 Random Glucose 113 mg/dL (60-115) D 03/12/20 07:51 Lactic Acid 1.5 mmol/L (0.5-2.0) 03/11/20 18:44 Calcium 8.3 mg/dL (8.4-10.2) L 03/12/20 07:51 Total Bilirubin 0.9 mg/dL (0.0-1.0) 03/11/20 18:25 Direct Bilirubin 0.4 mg/dL (0.0-0.5) 03/11/20 18:25 AST 46 U/L (5-31) H 03/11/20 18:25 ALT 25 U/L (0-31) 03/11/20 18:25 Alkaline Phosphatase 118 U/L (39-117) H 03/11/20 18:25 Troponin I High Sens < 3.5 ng/L (<3.5-17.0) 03/11/20 18:25 Total Protein 8.5 g/dL (6.5-8.0) H 03/11/20 18:25 Albumin 4.5 g/dL (3.5-5.0) 03/11/20 18:25 Coronavirus (PCR) NEGATIVE (Negative) 03/11/20 18:25 Influenza Type A (PCR) NEGATIVE (Negative) 03/11/20 18:25 Influenza Type B (PCR) NEGATIVE (Negative) 03/11/20 18:25 RSV RNA Qual (PCR) NEGATIVE (Negative) 03/11/20 18:25 Preliminary micro results at discharge 03/11/20 18:44 Blood Culture - Preliminary Blood - Venous No growth after 24 hours. 03/11/20 18:25 Blood Culture - Preliminary Blood - Venous No growth after 24 hours. Discharge Plan Discharge Anticipated Discharge Date/Time: 03/13/20 10:16 Patient Disposition: Home Health Service Referrals: [facility] [Other] - 1 Day (RESUMPTION OF CARE PLEASE CALL ABOVE NUMBER OR [facility] [phone] IF YOU HAVE NOT HEARD ANYTHING BY [facility].) Physician,Unknown [Primary Care Provider] - Discharge Medications: New prednisone 20 mg tablet 40 mg PO DAILY Qty: 8 RF: 0 Continued levothyroxine 175 mcg Tablet 175 mcg PO DAILY RF: 0 perphenazine 2 mg Tablet RF: 0 nicotine (polacrilex) 2 mg Gum 2 mg BUCCAL Q2H RF: 0 hydroxyzine pamoate 50 mg Capsule RF: 0 albuterol sulfate [ProAir HFA] 90 mcg/actuation Hfa Aerosol Inhaler 2 puff INHALATION Q4-6H PRN (Reason: Shortness Of Breath Or Wheezing) RF: 0 lisinopril 40 mg Tablet 40 mg PO DAILY RF: 0 Incruse Ellipta 62.5 mcg/actuation Blister With Device INHALATION RF: 0 sertraline 100 mg Tablet 100 mg PO DAILY RF: 0 amlodipine 5 mg Tablet 5 mg PO DAILY RF: 0 pantoprazole 20 mg Tablet,Delayed Release (Dr/Ec) PO RF: 0 rosuvastatin 20 mg Tablet 20 mg PO DAILY RF: 0 methadone 10 mg/mL Syringe 78 mg PO DAILY RF: 0 Discharge Orders: Discharge Order (Routine); Ordered 03/13/20 Ordered By: Karthikeyan Whitley Diet: advance to usual diet Activity on Discharge: As tolerated Discharge Date/Time: 03/13/20 16:02 Visit Report Forms: Patient Portal Discharge page Care Plan Goals: prevent rehospitalization for copd Health Concerns: tobacco use desorder Plan of Treatment: Take Prednisone as recommended and follow up with your Docotor in a week, call for appointment. Stop smoking and use Nicotine gum
--- NOTE | 2020-03-13 10:44 | MHC.CM.PN ---
PT DISCHARGING HOME WITH RESUMPTION OF [facility] AND HOME O2 WITH [place], PT USES 3L OF O2 AT NIGHT AND IF O2 IS BELOW 90, PT WILL NEED TRANSPORTATION HOME AND IS REQUESTING SHUTTLE. HCP:JAMEY WOLF ([facility]) [phone] [facility]: [facility] [phone] PCP: [facility]: [facility] OR [facility].
--- NOTE | 2020-03-13 13:37 | P.F2F_ITS ---
Service Date Service Date: 03/13/20 Reasons for Services Reason for intermediate: medication management Homebound: Leaving the home is medically contraindicated at this time without the asist of a device and/or another person due th the listed conditions above and below. Certification: Based on the above findings, I certify that this patient is confined to the home and needs intermittent intermediate care, physical therapy and/or speech therapy, or continues to need occupational therapy. The patient is under my care, and I have initiated the establishment of the plan of care. The patient will be followed by a physician who will periodically review the plan of care.
--- NOTE | 2020-03-14 13:16 | MHC.CM.PN ---
THIS RN RECEIVED A MESSAGE FROM CASE MANAGEMENT W[employer] INSULATION SPRAYER TO CALL CONTACT [facility]TS [facility] ABOUT NEEDING A SIGNED COPY OF DISCHARGE SUMMARY FROM 03/14/20, THIS RN SENT MESSAGE TO HOSPITALIST REQUESTING HIM TO SIGN DISCHARGE SUMMARY SO IT COULD BE FORWARDED TO [facility], THIS RN CONTACTED LAUREEN FROM [facility] AT APPROXIMATELY 12:15PM AND LET HER KNOW THE DISCHARGE PACKET, [id number] AD DISCHARGE SUMMARY(DRAFT) WERE SENT VIA [employer] AND SOON DISCHARGE SUMMARY WAS SIGNED IT WOULD BE FAXED PER HER REQUEST.
== END 2020-03-13 16:02 | disposition home health service (06) | DRG 140 ==
LOC: HO.ED 21:29 → HO.S3 03-12 00:56
PROVIDERS: Admitting Provider Internal Medicine; Emergency Provider Internal Medicine; Visit Provider Internal Medicine
DX: J44.1 Chronic obstructive pulmonary disease with (acute) exacerbation (principal); J96.21 Acute and chronic respiratory failure with hypoxia; Z99.81 Dependence on supplemental oxygen; E78.5 Hyperlipidemia, unspecified; I10 Essential (primary) hypertension; J96.22 Acute and chronic respiratory failure with hypercapnia; F11.20 Opioid dependence, uncomplicated; E03.9 Hypothyroidism, unspecified; F17.210 Nicotine dependence, cigarettes, uncomplicated; Z71.6 Tobacco abuse counseling; Z20.828 Contact with and (suspected) exposure to other viral communicable diseases; Z88.0 Allergy status to penicillin; Z79.890 Hormone replacement therapy; Z79.899 Other long term (current) drug therapy
CPT/HCPCS: 0241U; 36415; 71045; 80048; 80076; 82803; 83605; 84484; 85025; 85379; 85610; 87040; 93005; 94640; 96365; 96375; 99285; J0696; J1100; J2920

== ENCOUNTER → 2020-04-29 12:58 | Outpatient (BNVA) | payer MEDICAID, SELFPAY | PROVIDERS: PCP Family Medicine; Visit Provider Nurse Practitioner ==

== ENCOUNTER → 2020-10-21 08:02 | Outpatient (BNVA) | payer MEDICAID, SELFPAY | PROVIDERS: PCP Family Medicine; Visit Provider Nurse Practitioner | DX: K70.30 Alcoholic cirrhosis of liver without ascites (principal); K29.70 Gastritis, unspecified, without bleeding ==

== ENCOUNTER 2020-10-28 10:30 | Outpatient (REF) | payer MEDICAID, SELFPAY ==
--- NOTE | ~2020-10-28 | US_ITS ---
EXAMINATION: US ABDOMEN COMPLETE CLINICAL INFORMATION: Alcoholic cirrhosis of liver without ascites. COMPARISON: CT abdomen and pelvis 05/19/2018. Ultrasound abdomen 07/15/2012. TECHNIQUE: Real-time imaging of the abdominal viscera. FINDINGS: PANCREAS: Normal. ABDOMINAL AORTA: The proximal, mid, and distal segments are normal in caliber. INFERIOR VENA CAVA: Visualized portions are normal. LIVER: There is diffuse increased liver parenchymal echogenicity. No focal hepatic mass is seen. The liver is normal in size and contour. No biliary ductal dilatation. GALLBLADDER: Normal. The gallbladder is physiologically distended without evidence of stones, sludge, polyps, wall thickening or pericholecystic fluid. COMMON BILE DUCT: Normal in caliber measuring 0.3 cm in diameter. RIGHT KIDNEY: Normal. No hydronephrosis. No renal calculi or focal parenchymal lesions. The kidney measures 11.2 cm in maximum dimension. LEFT KIDNEY: Normal. No hydronephrosis. No renal calculi or focal parenchymal lesions. The kidney measures 10.6 cm in maximum dimension. SPLEEN: Normal. The spleen measures 10.2 cm in maximum dimension. FREE FLUID: None. US/US abdomen complete IMPRESSION: There is generalized increase in hepatic echotexture, consistent with fatty infiltration or hepatocellular disease. Please correlate clinically. Provided history of cirrhosis noted. No focal hepatic mass or intrahepatic biliary dilatation is seen.
== END 2020-10-28 10:31 | disposition home or self-care (01) ==
LOC: HO.US 10:30
PROVIDERS: PCP Family Medicine; Visit Provider Nurse Practitioner
DX: K70.30 Alcoholic cirrhosis of liver without ascites (principal)
CPT/HCPCS: 76700

== ENCOUNTER 2021-09-24 14:54 | Outpatient (REF) | payer MEDICAID, SELFPAY ==
[2021-09-24 15:13] LABS: MANUAL DIFF FLAG NO
[2021-09-24 15:19] LABS: Basophils Absolute Auto 0.1 X10*3/uL (0.0-0.2); Basophils Percent Auto 1.1 % (0-2); Eosinophils Absolute Auto 0.1 X10*3/uL (0.0-0.4); Eosinophils Percent Auto 2.5 % (0-4); Imm Gran Abs Auto 0.01 X10*3/uL (0.00-0.03); Imm Gran Pct Auto 0.2 % (0.0-0.4); Lymphocytes Absolute Auto 1.6 X10*3/uL (1.2-4.9); Mean Corpuscular HGB Conc 32.1 g/dl (31.0-35.0); Mean Corpuscular Hemoglobin 31.6 pg (27.0-33.0); Mean Corpuscular Volume 98.3 fL (80.0-98.0); Mean Platelet Volume 12.2 fL (9.4-12.3); Monocytes Absolute Auto 0.5 X10*3/uL (0.1-1.2); Monocytes Percent Auto 8.6 % (2-11); Neutrophils Percent Auto 57.6 % (45-73); Platelet Count 101 X10*3/uL (160-400); Red Blood Count 6.01 X10*6/uL (4.20-5.50); Red Cell Distribution Width 20.5 % (11.0-16.0); White Blood Count 5.3 X10*3/uL (4.8-10.8)
[2021-09-24 15:22] LABS: Hematocrit 59.1 % (37.0-47.0)
[2021-09-24 15:31] LABS: Ammonia 39 umol/L (13-55)
[2021-09-24 15:37] LABS: Alanine Aminotransferase 37 U/L (0-31); Albumin Level 4.2 g/dL (3.5-5.0); Alkaline Phosphatase 126 U/L (39-117); Anion Gap 15 (12-20); Aspartate Amino Transferase 71 U/L (5-31); Bilirubin Total 1.3 mg/dL (0.0-1.0); Blood Urea Nitrogen 10 mg/dL (9-16); Calcium 9.1 mg/dL (8.4-10.2); Carbon Dioxide 30 mmol/L (22-29); Chloride 95 mmol/L (96-108); Estimated Glomerular Filt Rate 58; Glucose Random 94 mg/dL (60-115); Potassium 4.6 mmol/L (3.3-5.1); Sodium 135 mmol/L (135-145); Total Protein 8.3 g/dL (6.5-8.0)
[2021-09-24 15:57] LABS: TSH reflex Free T4 23.42 uIU/mL (0.32-4.0)
[2021-09-29 13:11] LABS: Alpha Fetoprotein 3.5 ng/mL
== END 2021-09-24 14:55 | disposition home or self-care (01) ==
LOC: HO.LAB 14:54
PROVIDERS: PCP Family Medicine; Visit Provider Nurse Practitioner
DX: K70.30 Alcoholic cirrhosis of liver without ascites (principal); K21.9 Gastro-esophageal reflux disease without esophagitis; R11.2 Nausea with vomiting, unspecified; R14.0 Abdominal distension (gaseous)
CPT/HCPCS: 36415; 80053; 82105; 82140; 84439; 84443; 85025; 99212

== ENCOUNTER 2022-07-07 14:08 | Outpatient (REF) | payer MEDICAID, SELFPAY ==
--- NOTE | ~2022-07-07 | MM_ITS ---
EXAMINATION: MM SCREENING DIGITAL BREAST TOMOSYNTHESIS, BILATERAL CLINICAL INFORMATION: Screening. Asymptomatic. The lifetime risk of breast cancer based on the Tyrer-Cuzick Model is 12%. COMPARISON: Mammography: 08/08/2015, 10/19/2012 TECHNIQUE: Digital breast tomosynthesis is performed in both the craniocaudal and mediolateral oblique views along with computer-aided detection (CAD). Synthesized 2D images are generated from the tomosynthesis. FINDINGS: There are scattered areas of fibroglandular density (ACR BI-RADS breast composition Category b). There are no significant masses, abnormal calcifications, or other abnormalities. Parenchymal pattern is similar to prior studies. There is no developing density or architectural abnormality. The axilla and skin contours are unremarkable. No significant changes. MM/MM tomosynthesis screening BI IMPRESSION: No mammographic evidence of malignancy. ASSESSMENT: BI-RADS 1: Negative RECOMMENDATION: Routine annual mammography screening. This patient's information was entered into a reminder system with a target due date for their next mammogram.
--- NOTE | ~2022-07-07 | MM_ITS ---
EXAMINATION: BONE DENSITOMETRY CLINICAL INDICATION: Steroid use. COMPARISON: None (current study represents initial baseline exam). TECHNIQUE: Using a [employer] DXA System (software version: 13.1) manufactured by [employer], dual-energy x-ray absorptiometry was performed of the lumbar spine and left hip. The images are of good technical quality. Summary results are attached. FINDINGS: AP SPINE L1-L4: BMD 1.194 g/cm2, Z-score 1.2, T-score 0.1, normal. LEFT FEMUR, NECK: BMD 0.954 g/cm2, Z-score 0.6, T-score -0.6, normal. LEFT FEMUR, TOTAL: BMD 0.940 g/cm2, Z-score 0.3, T-score -0.5, normal. IDENTIFIED RISK FACTORS: Menopause, tobacco use (current smoker), glucocorticoids (chronic). HISTORY OF FRACTURE: None listed. MEDICATIONS: Vitamin D. MM/XR DEXA axial skeleton IMPRESSION: 1. DIAGNOSIS: Normal bone density based on the lowest T-score value of -0.6 in the femoral neck applying World Health Organization criteria. 2. 10-YEAR FRACTURE RISK PREDICTION, FRAX: According to the guidelines, FRAX calculation should only be performed on patients in the osteopenia bone density category. Therefore, FRAX was not performed on this patient. 3. Treatment Recommendations: NOF guidelines recommend consideration for treatment in postmenopausal women and men age 50 and older presenting with the following: -A hip or vertebral (clinical or morphometric) fracture. -T-score less than or equal to -2.5 at the femoral neck or spine after appropriate evaluation to exclude secondary causes. -Low bone mass at the hip or spine and a 10-year fracture probability by FRAX of greater than or equal to 3% for hip fracture or greater than or equal to 20% for major osteoporotic fracture based on the [place] adapted WHO algorithm. 4. Other Recommendations: All treatment decisions require clinical judgment and consideration of individual patient factors, including patient preferences, comorbidities, previous drug use, risk factors not captured in the FRAX model (e.g. frailty, falls, vitamin D deficiency, increased bone turnover, interval significant decline in bone density) and possible under or overestimation of fracture risk by FRAX. FUTURE SCAN RECOMMENDATION: People with diagnosed cases of osteoporosis or at high risk for fracture should have regular bone mineral density tests. For patients eligible for Medicare, routine testing is allowed once every 2 years. The testing frequency can be increased to one year for patients who have rapidly progressing disease, those who are receiving or discontinuing medical therapy to restore bone mass, or have additional risk factors.
== END 2022-07-07 14:09 | disposition home or self-care (01) ==
LOC: HO.MAMMO 14:08
PROVIDERS: PCP Family Medicine; Visit Provider Family Medicine
DX: Z12.31 Encounter for screening mammogram for malignant neoplasm of breast (principal); Z13.820 Encounter for screening for osteoporosis; Z91.89 Other specified personal risk factors, not elsewhere classified; Z79.51 Long term (current) use of inhaled steroids; Z78.0 Asymptomatic menopausal state
CPT/HCPCS: 77063; 77067; 77080

== ENCOUNTER 2022-10-01 13:49 | Outpatient (AMB) | payer MEDICAID, SELFPAY ==
--- NOTE | 2022-10-01 13:51 | MHC.OFFVIS ---
Intake Vital Signs 10/01/22 13:55 Height 5 ft 5 in Weight 153 lb 7.068 oz BMI 25.5 BP 139/84 Blood Pressure Location Rt brachial Position Sitting Pulse 101 H Intake Visit Reasons: 6 months follow up Intake Note: Patient presents to in office visit today in follwo up cirrhosis. Patient cc: Pt c/o gas, nausea, abdominal discomfort, bloating, and occasional vomiting. She also reports occasional diarrhea and GERD. Denies other GI symptoms. 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 Accompanied by: Self / Same As Patient Allergies Penicillins [PENICILLINS] Allergy (Unknown, Verified 10/21/20 08:02) RED ITCHY RASH SEAFOOD Allergy (Unknown, Uncoded 12/13/19 16:37) FEVER SWELLING HPI 6 months follow up HPI Details Assessment & Plan (1) Alcoholic cirrhosis: ?Comment: BASELINE LABS 03/11/2012 Plt Count 105 L Hemoglobin A1c Total Bilirubin 0.9 Direct Bilirubin 0.4 AST 46 H ALT 25 Alkaline Phosphatase 118 H Hemoglobin A1c 6.4 Free T4 0.44 L TSH 3rd Generation 48.28 H Ethyl Alcohol < 10 10/22/19 Hep Bs Antigen NEGATIVE Hep C Viral Load <15, <1.18 HIV 1&2 Antigen & Ab NONREACTIVE CURRENT LABS * ULTRASOUND OF THE ABDOMEN? 10/28/20 IMPRESSION: There is generalized increase in hepatic echotexture, consistent with fatty infiltration or hepatocellular disease. Please correlate clinically. Provided history of cirrhosis noted. No focal hepatic mass or intrahepatic biliary dilatation is seen. ?Code(s): K70.30 - Alcoholic cirrhosis of liver without ascites ?Plan: Welsh #Female family member translates per patient request She is on oxygen via 3L n/c now. She says she forgot to do the lab work last year. I will send her again. It is also time to repeat the US. She is still c/o phlem and nausea when she eats. She does have bloating, but denies CIC. I will try rx for simethicone and advise them to buy OTC Gas x if this is not covered. She is only on protonix 20mg so will increase it to 40mg and add famotidine back in qhs 20mg. This may help her nausea more, but it may be r/t gas trapping. ROV after US.? NEXT OFFICE VISIT CONSIDER GETTING FERRITIN AND HEMOCHROMATOSIS SCREEN.? HEMOGLOBIN/HEMATOCRIT VERY HIGH. (2) GERD (gastroesophageal reflux disease): ?Code(s): K21.9 - Gastro-esophageal reflux disease without esophagitis (3) Nausea and vomiting: ?Code(s): R11.2 - Nausea with vomiting, unspecified (4) Abdominal bloating: ?Code(s): R14.0 - Abdominal distension (gaseous) ? ? ? Orders: Orders US abdomen limited Today K21.9 - Gastro-eso phageal reflux dis ease without esoph agitis, K70.30 - A lcoholic cirrhosis of liver without ascites, R11.2 - N ausea with vomitin g, unspecified ? Medications: New simethicone ?? aft er meals 180 mg? PO BID 30 days 60 caps 3RF G R14.0 - Abdominal distension (gaseou s) ? famotidine (Pepcid ) 40 mg? PO BEDTIME 30 tabs 6RF K21.9 - Gastro-eso phageal reflux dis ease without esoph agitis ? famotidine (Pepcid ) 20 mg? PO BEDTIME 30 tabs 6RF K21.9 - Gastro-eso phageal reflux dis ease without esoph agitis ? THE LABS: ULTRASOUND OF THE ABDOMEN SCHEDULED FOR 03/19/2022 YET WAS NEVER OBTAINED TODAY'S VISIT Welsh #Mandi Live She has been lost to follow up since 08/2021. She says she is not drinking ETOH I hold off because of all of my medicines. She says she has not wanted to leave her house when it is too hot or too rainy and this gets in the way of her appts. she is on oxygen portable still at 4L-6L n/c. She does not know the names of her medicines, but she says that only certain foods like sauces and iced tea cause her HB. In the past she was maintained on famotidine and simethicone successfully. She is not complaining of the symptoms so I soon she still on the medications. She is due for more labs and US for her liver and she is agreeable. ROV 6 weeks. [facility], [facility] Medical History COPD (chronic obstructive pulmonary disease) Hepatitis C HTN (hypertension) Hyperlipidemia Hypothyroid Family History Father HTN (hypertension) Mother Gastritis Ovarian cancer Arthritis Son Thyroid disease Social History Household Members: Spouse Housing: Apartment Do you presently have visiting nurse or other home services: Yes Alcohol intake: current Alcohol intake frequency: does not drink Cigarette Packs Per Day: 1 Cigarettes Per Day: 20.0 Second Hand Smoke Exposure: Yes Substance Use Type: Heroin service: No Current occupational status: unemployed Review of Systems Const Denies fatigue, Denies fever(s), Denies night sweats, Denies poor appetite and Denies weight loss ENT Reports Normal hearing present, Denies dental pain, Denies dysphagia, Denies hearing loss, Denies mouth pain, Denies odynophagia, Denies throat swelling, Denies tongue swelling and Reports other (Dentition adequate) Card Reports no additional complaints and Reports dyspnea on exertion Resp Reports dyspnea on exertion GI Denies abdominal pain, Denies melena, Denies bloating, Denies hematochezia, Denies constipation, Denies GI cramping, Denies dysphagia, Denies excessive flatus, Denies early satiety, Reports heartburn, Denies diarrhea, Denies nausea, Denies odynophagia, Denies vomiting and Denies hematemesis Musc Reports myalgias Skin/Breast Denies pruritus, Denies lesions, Denies rash and Denies jaundice Neuro Reports Normal hearing present and Denies Abnormal speech present Endo Denies fatigue Aller/Immun Denies throat swelling and Denies tongue swelling Physical Exam Vital Signs: Last Vital Signs Pulse 101 H 10/01/22 13:55 BP 139/84 10/01/22 13:55 BMI result Body Mass Index 25.5 Const General: cooperative, no acute distress, well developed and well groomed Nutritional Appearance: average body habitus and well nourished Orientation/consciousness: oriented to person, oriented to place and oriented to time Limitations: language barrier and other limitations HEENT Head: Yes normocephalic and Yes atraumatic Eyes General: appearance normal, both eyes and all related structures Pupils: Equal, round and reactive pupils present Neck Neck: Yes normal visual inspection and Yes no lymphadenopathy Thyroid: Thyroid normal Resp Effort & Inspection: normal respiratory effort and able to speak in complete sentences Auscultation: clear to auscultation bilaterally Cardio Rate: regular rate Rhythm: regular rhythm Heart sounds: Normal, physiologic split S2 sound present Peripheral pulses: radial pulses present and posterior tibial pulses present GI Inspection: No distended, No Abdominal panniculus present and Yes obesity Palpation (GI): Soft to palpation, nontender, no guarding, not rigid and Hepatosplenomegaly present (extent difficult to ascertain r/t her breathing and ticklish) Percussion: Yes normal to percussion Auscultation: normal bowel sounds Rectal Exam - Female: deferred Skin General skin exam: no rashes or lesions noted, turgor normal, skin not dry, no jaundice, No spider nevi and no striae Rashes: no rashes Nails: normal Neuro General: oriented to person, oriented to place and oriented to time Cranial nerves: Yes Equal, round and reactive pupils present and Yes Normal hearing present Speech: No Abnormal speech present Extrem General: Yes normal to inspection, No clubbing, No cyanosis and No edema Psych Appearance: grossly normal and well kempt Mental Status: mental status grossly normal Speech and movement: Normal speech and movement present Affect: normal affect Attitude: cooperative Thought process: Normal thought process present and not confabulating Thought content: Normal thought content present Insight: Limited insight present (Psych) Judgement: Limited judgement present (Psych) Assessment & Plan Assessment & Plan (1) Alcoholic cirrhosis: Comment: BASELINE LABS 03/11/2012 Plt Count 105 L Hemoglobin A1c Total Bilirubin 0.9 Direct Bilirubin 0.4 AST 46 H ALT 25 Alkaline Phosphatase 118 H Hemoglobin A1c 6.4 Free T4 0.44 L TSH 3rd Generation 48.28 H Ethyl Alcohol < 10 10/22/19 Hep Bs Antigen NEGATIVE Hep C Viral Load <15, <1.18 HIV 1&2 Antigen & Ab NONREACTIVE CURRENT LABS * ULTRASOUND OF THE ABDOMEN 10/28/20 IMPRESSION: There is generalized increase in hepatic echotexture, consistent with fatty infiltration or hepatocellular disease. Please correlate clinically. Provided history of cirrhosis noted. No focal hepatic mass or intrahepatic biliary dilatation is seen. Code(s): K70.30 - Alcoholic cirrhosis of liver without ascites Plan: Welsh #Mandi Jin She has been lost to follow up since 08/2021. She says she is not drinking ETOH I hold off because of all of my medicines. She says she has not wanted to leave her house when it is too hot or too rainy and this gets in the way of her appts. she is on oxygen portable still at 4L-6L n/c. She does not know the names of her medicines, but she says that only certain foods like sauces and iced tea cause her HB. In the past she was maintained on famotidine and simethicone successfully. She is not complaining of the symptoms so I soon she still on the medications. She is due for more labs and US for her liver and she is agreeable. ROV 6 weeks. (2) Nausea and vomiting: Code(s): R11.2 - Nausea with vomiting, unspecified (3) GERD (gastroesophageal reflux disease): Code(s): K21.9 - Gastro-esophageal reflux disease without esophagitis (4) Diarrhea: Code(s): R19.7 - Diarrhea, unspecified (5) Abdominal bloating: Code(s): R14.0 - Abdominal distension (gaseous) Orders: Orders Alpha Fetoprotein 10/01/22 K70.30 - Alcoholic cirrhosis of liver without ascites Ammonia 10/01/22 K70.30 - Alcoholic cirrhosis of liver without ascites Comprehensive Met. Panel 10/01/22 K70.30 - Alcoholic cirrhosis of liver without ascites Ferritin 10/01/22 K70.30 - Alcoholic cirrhosis of liver without ascites Gamma Glutamyl Transpeptidase 10/01/22 K70.30 - Alcoholic cirrhosis of liver without ascites Complete Blood Count Auto Diff 10/01/22 K70.30 - Alcoholic cirrhosis of liver without ascites US abdomen comp w elastography 10/01/22 K70.30 - Alcoholic cirrhosis of liver without ascites Medications: Refilled simethicone after meals 180 mg PO BID 60 caps 6RF 30 days R14.0 - Abdominal distension (gaseous) famotidine (Pepcid) 40 mg PO BEDTIME 30 tabs 6RF K21.9 - Gastro-esophageal reflux disease without esophagitis Coding Level of Care Code Est Pt Level 3 (38226) Diagnoses Alcoholic cirrhosis K70.30 Nausea and vomiting R11.2 GERD (gastroesophageal reflux disease) K21.9 Diarrhea R19.7 Abdominal bloating R14.0
[2022-10-01 13:55] VITALS: BP 139/84; PULSE 101; BMI 25.5
== END 2022-10-01 14:17 | disposition home or self-care (01) ==
PROVIDERS: PCP Family Medicine; Visit Provider Nurse Practitioner
DX: K70.30 Alcoholic cirrhosis of liver without ascites (principal); R11.2 Nausea with vomiting, unspecified; K21.9 Gastro-esophageal reflux disease without esophagitis; R19.7 Diarrhea, unspecified; R14.0 Abdominal distension (gaseous)
CPT/HCPCS: 99213

== ENCOUNTER → 2022-10-01 13:49 | Outpatient (BNVA) | payer MEDICAID, SELFPAY | PROVIDERS: PCP Family Medicine; Visit Provider Nurse Practitioner | DX: K70.30 Alcoholic cirrhosis of liver without ascites (principal); K21.9 Gastro-esophageal reflux disease without esophagitis; R11.2 Nausea with vomiting, unspecified; R14.0 Abdominal distension (gaseous) | CPT/HCPCS: 99213 ==

== ENCOUNTER 2022-12-14 12:49 | Outpatient (REF) | payer MEDICAID, SELFPAY ==
[2022-12-14 16:21] LABS: Imm Gran Abs Auto 0.02 X10*3/uL (0.00-0.03); Imm Gran Pct Auto 0.3 % (0.0-0.4); PLT CLUMP 1; Red Cell Distribution Width 16.1 % (11.0-16.0); SCAN SMEAR FLAG 1
[2022-12-14 16:23] LABS: Basophils Absolute Auto 0.1 X10*3/uL (0.0-0.2); Basophils Percent Auto 0.9 % (0-2); Eosinophils Absolute Auto 0.2 X10*3/uL (0.0-0.4); Eosinophils Percent Auto 2.5 % (0-4); Hemoglobin 18.5 g/dl (12.0-16.0); Lymphocytes Absolute Auto 1.9 X10*3/uL (1.2-4.9); Lymphocytes Percent Auto 29.9 % (20-40); Mean Corpuscular HGB Conc 32.6 g/dl (31.0-35.0); Mean Corpuscular Volume 107.4 fL (80.0-98.0); Mean Platelet Volume 11.2 fL (9.4-12.3); Monocytes Absolute Auto 0.4 X10*3/uL (0.1-1.2); Monocytes Percent Auto 6.3 % (2-11); NRBC Pct Auto 0.3 /100WBC (0.0-0.2); Neutrophils Absolute Auto 3.9 x10*3/uL (2.0-8.3); Neutrophils Percent Auto 60.1 % (45-73); Red Blood Count 5.29 X10*6/uL (4.20-5.50)
[2022-12-14 16:26] LABS: Hematocrit 56.8 % (37.0-47.0)
[2022-12-14 16:27] LABS: MANUAL DIFF FLAG NO; Platelet Count 115 X10*3/uL (160-400); White Blood Count 6.5 X10*3/uL (4.8-10.8)
[2022-12-14 16:38] LABS: Estimated Average Glucose 91 mg/dL; Hemoglobin A1c % 4.8 % (<6.0); INTERNATIONAL NORM RATIO 0.9 (0.9-1.1); Prothrombin Time 10.4 SEC (11.1-13.3)
[2022-12-14 16:51] LABS: Alanine Aminotransferase 41 U/L (0-31); Albumin Level 4.3 g/dL (3.5-5.0); Alkaline Phosphatase 180 U/L (39-117); Anion Gap 13 (12-20); Aspartate Amino Transferase 87 U/L (5-31); Bilirubin Total 1.4 mg/dL (0.0-1.0); Blood Urea Nitrogen 4 mg/dL (9-16); Calcium 9.6 mg/dL (8.4-10.2); Carbon Dioxide 34 mmol/L (22-29); Chloride 96 mmol/L (96-108); Estimated Glomerular Filt Rate > 60; Glucose Random 97 mg/dL (60-115); Potassium 3.8 mmol/L (3.3-5.1); Sodium 139 mmol/L (135-145); Total Protein 8.5 g/dL (6.5-8.0)
[2022-12-14 16:52] LABS: Cholesterol 305 mg/dL (<200); HDL Cholesterol 54 mg/dL (>40); Triglycerides 549 mg/dL (<150)
[2022-12-14 17:10] LABS: Ferritin 182 ng/mL (10-250); TSH reflex Free T4 32.45 uIU/mL (0.32-4.0)
[2022-12-14 17:22] LABS: Folate 15.5 ng/mL (> or = 4.0); Vitamin B12 539 pg/mL (200-900)
[2022-12-14 17:54] LABS: Reflex LDLD? Yes
[2022-12-14 18:03] LABS: Free T4 (Free Thyroxine) 0.57 ng/dL (0.71-1.85)
[2022-12-15 08:35] LABS: Hepatitis A Antibody IgG REACTIVE (Nonreactive); ~Hepatitis A Antibody IgG 10.75 S/CO (0.00-0.99)
[2022-12-15 08:36] LABS: HBS Num1 > 1000.00 mIU/mL (0-7.99); HBc Num1 0.16 S/CO (0.00-0.79); HBsAGNum1 0.32 S/CO (0.00-0.99); HIV AB/AG Nonreactive (Nonreactive); HIV Num 1 0.15 S/CO (0.00-0.99); Hepatitis B Core Antibody Nonreactive (Nonreactive); Hepatitis B Surface Antigen Negative (Negative); ~HepC Num1 12.66 S/CO (0.00-0.79); ~Hepatitis B Surface Antibody REACTIVE (Nonreactive); ~Hepatitis C Antibody Reactive (Nonreactive)
[2022-12-15 08:47] LABS: Syphilis Screen Nonreactive (Nonreactive)
[2022-12-15 12:24] LABS: Alpha Fetoprotein 3.7 ng/mL
[2022-12-16 08:44] LABS: LDL Cholesterol Direct 147 mg/dL (<100)
[2022-12-17 07:59] LABS: TS Negative Control Passed; TS Panel A 0; TS Panel B 1; TS Positive Control Passed; TSpotTB Invalid (Negative)
== END 2022-12-14 12:50 | disposition home or self-care (01) ==
LOC: HO.HHCL 12:49
PROVIDERS: Visit Provider Family Medicine
DX: K76.9 Liver disease, unspecified (principal)
CPT/HCPCS: 36415; 80053; 80061; 82105; 82607; 82728; 82746; 83036; 83721; 84439; 84443; 85025; 85610; 86481; 86704; 86706; 86708; 86780; 86803; 87340; 87389; 87522

== ENCOUNTER 2022-12-22 10:34 | Outpatient (REF) | payer MEDICAID, SELFPAY ==
--- NOTE | ~2022-12-22 | XR_ITS ---
EXAMINATION: XR CHEST CLINICAL INFORMATION: Wheezing COMPARISON: 03/11/2020 TECHNIQUE: 2 views of the chest were obtained. FINDINGS: The lungs are hyperinflated compatible with COPD with flattening of the diaphragms. Bibasilar atelectasis is seen. Heart size within normal limits. No evidence of CHF. No pleural effusions. XR/XR chest 2V IMPRESSION: COPD. No acute intrathoracic disease.
== END 2022-12-22 10:35 | disposition home or self-care (01) ==
LOC: HO.HHCX 10:34
PROVIDERS: Visit Provider Family Medicine
DX: R06.2 Wheezing (principal)
CPT/HCPCS: 71046

== ENCOUNTER 2023-04-20 14:24 | Inpatient (IN) | payer MEDICAID, SELFPAY ==
[2023-04-20] VITALS (11 sets, daily range): BP systolic 119–156; BP diastolic 70–96; PULSE 79–102; RESP 12–24; TEMP 36.1–36.9; O2SAT 80–93; BMI 25.5
--- NOTE | ~2023-04-20 | XR_ITS ---
EXAMINATION: XR CHEST CLINICAL INFORMATION: Shortness of breath and cough COMPARISON: Previous chest x-ray recent November 2022 TECHNIQUE: Frontal view of the chest was obtained. FINDINGS: The cardiac and mediastinal contours are stable. There are increased central bronchovascular markings. There is atelectasis or small infiltrates at both lung bases. There is blunting at the left lateral costophrenic angle. This is similar to previous exams and when compared with prior CT may represent prominent epicardial fat as opposed to small pleural effusion There is no right pleural effusion. There is no pneumothorax. Bony structures are unremarkable. XR/XR chest 1V IMPRESSION: Increased central bronchovascular markings questionable for airways disease versus mild pulmonary edema. Atelectasis or small infiltrates at the lung bases.
[2023-04-20] MEDS: Albuterol Sulfate 5 MG, Albuterol/Iprat 2.5/0.5MG 3 ML 3 ML INHALE (14:43)
--- NOTE | 2023-04-20 14:43 | ECG_ITS ---
Test Reason : SOB Blood Pressure : / mmHG Vent. Rate : 086 BPM Atrial Rate : 086 BPM P-R Int : 136 ms QRS Dur : 092 ms QT Int : 386 ms P-R-T Axes : 078 -80 062 degrees QTc Int : 461 ms Normal sinus rhythm Possible Left atrial enlargement Left axis deviation Incomplete right bundle branch block Abnormal ECG When compared with ECG of 11-MAR-2020 19:05, Incomplete right bundle branch block is now Present Referred By: Generic ED Physician Electronically Signed By:Johny Velazco
--- NOTE | 2023-04-20 15:09 | ED_ITS ---
HPI - SOB/Dyspnea General Chief Complaint: Dyspnea Stated Complaint: DIFF BREATHING,6LPM NRB DUONEB PER EMS Time Seen by Provider: 04/20/23 14:53 Source: patient and EMS Mode of arrival: EMS Limitations: no limitations History of Present Illness HPI Narrative: A 57-year-old female history of COPD/emphysema on supplemental oxygen at home 4 L at rest and 6 L with exercises presented with difficulty breathing and low oxygenation in the 80s with 4 L of her baseline supplemental oxygen, patient been having subjective fever at home with cough and greenish sputum. No sick contacts, no recent travel, no lower extremities swelling. Related Data Home Medications Medication Instructions Recorded Confirmed albuterol sulfate 90 mcg/actuation 2 puff inhalation Q4-6H PRN 03/11/20 03/11/20 aerosol inhaler (ProAir HFA) Shortness Of Breath Or Wheezing lisinopril 40 mg tablet 40 mg PO DAILY 03/11/20 03/11/20 rosuvastatin 20 mg tablet 20 mg PO DAILY 03/11/20 03/11/20 docosahexaenoic acid 200 mg mg PO 09/24/21 capsule (Algal Parkman-3 DHA) perphenazine 4 mg tablet 4 mg PO BID 09/24/21 amlodipine 10 mg tablet 10 mg PO DAILY 10/01/22 budesonide-formoterol HFA 160 2 puff inhalation BID 10/01/22 mcg-4.5 mcg/actuation aerosol inhaler (Symbicort) levothyroxine 200 mcg tablet 200 mcg PO QAM 10/01/22 sertraline 25 mg tablet 25 mg PO QAM 10/01/22 umeclidinium 62.5 mcg/actuation 1 inh inhalation DAILY 10/01/22 blister powder for inhalation (Incruse Ellipta) Previous Rx's Medication Instructions Recorded famotidine 40 mg tablet (Pepcid) 40 mg PO BEDTIME #30 tabs 10/01/22 simethicone 180 mg capsule 180 mg PO BID 30 days #60 caps 10/01/22 Allergies Allergy/AdvReac Type Severity Reaction Status Date / Time Penicillins [PENICILLINS] Allergy Unknown RED ITCHY Verified 10/21/20 08:02 RASH SEAFOOD Allergy Unknown FEVER Uncoded 12/13/19 16:37 SWELLING Review of Systems 2 Review of Systems: All other systems are reviewed and are negative Constitutional: Reports as per HPI and Reports no additional constitutional complaints Eyes: Reports as per HPI and Reports no additional eye complaints Reports system reviewed and no additional complaints, except as documented Cardiovascular: Reports as per HPI and Reports no additional cardiovascular complaints Respiratory: Reports as per HPI and Reports no additional respiratory complaints Gastrointestinal: Reports as per HPI and Reports no additional gastrointestinal complaints Genitourinary: Reports no additional female genitourinary complaints Musculoskeletal: Reports no additional musculoskeletal complaints Skin/Breast: Reports system reviewed and no additional complaints, except as docu Psychiatric: Reports no additional psychiatric complaints Endocrine: Reports no additional endocrine complaints Hematologic/Lymphatic: Reports no additional hematologic/lymphatic complaints Allergic/Immunologic: Reports no additional allergic/immunologic complaints Reports system reviewed and no additional complaints, except as documented and Reports Abnormal speech present [facility] Past Medical History Medical History Hyperlipidemia Psychosis Hypoxia Acute exacerbation of chronic obstructive airways disease Hepatitis C HTN (hypertension) Hypothyroid COPD (chronic obstructive pulmonary disease) Family History Family History Father HTN (hypertension) Mother Gastritis Ovarian cancer Arthritis Son Thyroid disease Social History Social History Household Members: Spouse Housing: Apartment Do you presently have visiting nurse or other home services: Yes Alcohol intake: current Alcohol intake frequency: does not drink Cigarette Packs Per Day: 1 Cigarettes Per Day: 20.0 Second Hand Smoke Exposure: Yes Substance Use Type: Heroin Advance Directives: No Advance Directives Information Provided: No service: No Current occupational status: unemployed Physical Exam 2 Vital Signs: Vital Signs: Last Vital Signs Temp 98.4 F 04/20/23 14:35 Pulse 100 04/20/23 15:43 Resp 20 04/20/23 17:56 BP 120/70 04/20/23 15:43 Pulse Ox 93 04/20/23 15:43 O2 Del Method BiPAP 04/20/23 15:43 Oxygen Flow Rate 6 04/20/23 14:35 BMI result Body Mass Index 25.5 Vital signs have been reviewed and appear to be correct. Blood pressure elevated. Heart rate normal. Respiratory rate elevated. Temperature normal. Oxygen low. Appearance: Alert. Oriented X3. No acute distress. Head: Normal external exam. Normocephalic. Atraumatic. No Faulkner signs noted. No raccoon eyes noted Eyes: PERRLA. EOMI. Conjunctiva and sclera normal. Eyelids normal. ENT: TM's Normal. Pharynx normal. Uvula midline. Moist mucous membranes. No trismus noted. No drooling noted. No muffled voice noted. Neck: Normal inspection. Neck supple. FROM. No adenopathy. Thyroid Normal. No meningeal signs. No neck mass noted. CVS: Normal heart rate and rhythm. Heart sound normal. No murmurs noted. Pulses normal throughout. Respiratory: No respiratory distress. Painless inspiration. Breath sounds normal. Expiratory wheezing with prolonged expiration decreased air entry bilaterally. No accessory muscle usage noted or decreased air movement noted. Abdomen: Soft and nontender. Bowel sounds normal in all 4 quadrants. No distention noted. No organomegaly noted. No visible injury noted. Back: No CVA tenderness. Full range of motion noted. Skin: Skin warm and dry. Normal skin color. Normal skin turgor. No rashes/lesions/lacerations noted. Extremities: No lower extremity edema. Extremities exhibit normal range of motion. Extremities nontender. Neuro: Oriented X 3. Cranial nerve exam: II-XII are grossly intact No motor deficit. No sensory deficit. Reflexes normal. Course Reevaluation(s) Reevaluation #1: Acute respiratory failure with hypoxia and hypercarbia due to Acute COPD exacerbation with hypercarbia require BiPAP machine. Received Zithromax/ceftriaxone. Continue with BiPAP machine. ICU admission. Time: 19:31 Medications Administered Discontinued Medications Generic Name Dose Route Start Last Admin Trade Name Corbyq PRN Reason Stop Dose Admin Albuterol Sulfate 5 mg/ 0 mg 04/20/23 14:39 04/20/23 14:43 Albuterol/Ipratropium 3 ml INHALE 04/20/23 14:40 1 each ONCE ONE Administration Magnesium Sulfate 2 gm in 50 mls @ 25 mls/hr 04/20/23 15:04 04/20/23 17:43 Magnesium Sulfate/H2o IV 04/20/23 17:03 Infused ONCE ONE Infusion Ceftriaxone Sodium 1 gm/ 50 mls @ 100 mls/hr 04/20/23 15:06 04/20/23 16:30 Sodium Chloride IV 04/20/23 15:35 Infused ONCE ONE Infusion Azithromycin 500 mg/ Sodium 250 mls @ 125 mls/hr 04/20/23 15:06 04/20/23 19:19 Chloride IV 04/20/23 17:05 Infused ONCE ONE Infusion Methylprednisolone Sodium Succinate 125 mg 04/20/23 15:04 04/20/23 15:40 Methylprednisolone Sod Succ 125 Mg/2 Ml Vial IVPUSH 04/20/23 15:05 125 mg ONCE ONE Administration Medical Decision Making Differential Diagnosis Differential Diagnoses: The differential diagnosis associated with the presentation includes (Pneumonia/acute respiratory failure/COPD exacerbation/ACS/severe anemia/electrolyte abnormality.) Admission/Observation Consideration of admission/observation: Escalation of care including admission/observation considered Consult Healthcare Provider Management of the patient was discussed with: Food Safety Director (Dr. Johnson.) Lab Data MDM Lab Attestation statement: I reviewed the patient's lab results. 04/20/23 15:28 04/20/23 15:28 Labs: Lab Results 04/20/23 04/20/23 04/20/23 Range/Units 15: 15: 15:29 WBC 11.6 H (4.8-10.8) X10*3/uL RBC 5.51 H (4.20-5.50) X10*6/uL Hgb 17.1 H (12.0-16.0) g/dl Hct 55.2 H (37.0-47.0) % MCV 100.2 H (80.0-98.0) fL MCH 31.0 (27.0-33.0) pg MCHC 31.0 (31.0-35.0) g/dl RDW 16.5 H (11.0-16.0) % Plt Count 116 L (160-400) X10*3/uL MPV 11.2 (9.4-12.3) fL Immature Gran % (Auto) 0.5 H (0.0-0.4) % Neut % (Auto) 66.7 (45-73) % Lymph % (Auto) 26.9 (20-40) % Bleckley % (Auto) 4.5 (2-11) % Eos % (Auto) 1.1 (0-4) % Baso % (Auto) 0.3 (0-2) % Lymph # (Auto) 3.1 (1.2-4.9) X10*3/uL Bleckley # (Auto) 0.5 (0.1-1.2) X10*3/uL Eos # (Auto) 0.1 (0.0-0.4) X10*3/uL Baso # (Auto) 0.0 (0.0-0.2) X10*3/uL Abs Immat Gran (auto) 0.06 H (0.00-0.03) X10*3/uL Absolute Neuts (auto) 7.7 (2.0-8.3) x10*3/uL Absolute Nucleated RBC 0.000 (0.0-0.012) X10*3/uL Nucleated RBC % (auto) 0.0 (0.0-0.2) /100WBC O2 Saturation 88.0 % ABG pH at Pt Temp 7.31 L (7.35-7.45) ABG pCO2 at Pt Temp 69 H* (32-45) mmHg ABG pO2 at Pt Temp 59 L (83-108) mmHg ABG HCO3 35 H (22-26) mmol/L ABG Base Excess (Actual) 6.3 mmol/L Sodium 136 (135-145) mmol/L Potassium 3.6 (3.3-5.1) mmol/L Chloride 91 L (96-108) mmol/L Carbon Dioxide 35 H (22-29) mmol/L Anion Gap 14 (12-20) BUN 14 (9-16) mg/dL Creatinine 0.92 (0.5-1.4) mg/dL Estim Creat Clear Calc 66.7 Estimated GFR > 60 Random Glucose 137 H (60-115) mg/dL Lactic Acid 1.3 (0.5-2.0) mmol/L Calcium 9.8 (8.4-10.2) mg/dL Magnesium 2.2 (1.6-2.6) mg/dL Total Bilirubin 0.9 (0.0-1.0) mg/dL AST 32 H (5-31) U/L ALT 22 (0-31) U/L Alkaline Phosphatase 133 H (39-117) U/L Troponin I High Sens < 2.7 (<3.5-17.0) ng/L B-Natriuretic Peptide 24 (<100) pg/mL Total Protein 8.3 H (6.5-8.0) g/dL Albumin 4.0 (3.5-5.0) g/dL COVID-19 (TODD) (Negative) COVID-19 Clin Com Influenza Type A (ANN) (Negative) Influenza Type B (ANN) (Negative) Influenza A & B Note 04/20/23 04/20/23 Range/Units 15:36 17:25 WBC (4.8-10.8) X10*3/uL RBC (4.20-5.50) X10*6/uL Hgb (12.0-16.0) g/dl Hct (37.0-47.0) % MCV (80.0-98.0) fL MCH (27.0-33.0) pg MCHC (31.0-35.0) g/dl RDW (11.0-16.0) % Plt Count (160-400) X10*3/uL MPV (9.4-12.3) fL Immature Gran % (Auto) (0.0-0.4) % Neut % (Auto) (45-73) % Lymph % (Auto) (20-40) % Bleckley % (Auto) (2-11) % Eos % (Auto) (0-4) % Baso % (Auto) (0-2) % Lymph # (Auto) (1.2-4.9) X10*3/uL Bleckley # (Auto) (0.1-1.2) X10*3/uL Eos # (Auto) (0.0-0.4) X10*3/uL Baso # (Auto) (0.0-0.2) X10*3/uL Abs Immat Gran (auto) (0.00-0.03) X10*3/uL Absolute Neuts (auto) (2.0-8.3) x10*3/uL Absolute Nucleated RBC (0.0-0.012) X10*3/uL Nucleated RBC % (auto) (0.0-0.2) /100WBC O2 Saturation 93.0 % ABG pH at Pt Temp 7.29 L (7.35-7.45) ABG pCO2 at Pt Temp 76 H* (32-45) mmHg ABG pO2 at Pt Temp 71 L (83-108) mmHg ABG HCO3 37 H (22-26) mmol/L ABG Base Excess (Actual) 7.1 mmol/L Sodium (135-145) mmol/L Potassium (3.3-5.1) mmol/L Chloride (96-108) mmol/L Carbon Dioxide (22-29) mmol/L Anion Gap (12-20) BUN (9-16) mg/dL Creatinine (0.5-1.4) mg/dL Estim Creat Clear Calc Estimated GFR Random Glucose (60-115) mg/dL Lactic Acid (0.5-2.0) mmol/L Calcium (8.4-10.2) mg/dL Magnesium (1.6-2.6) mg/dL Total Bilirubin (0.0-1.0) mg/dL AST (5-31) U/L ALT (0-31) U/L Alkaline Phosphatase (39-117) U/L Troponin I High Sens (<3.5-17.0) ng/L B-Natriuretic Peptide (<100) pg/mL Total Protein (6.5-8.0) g/dL Albumin (3.5-5.0) g/dL COVID-19 (TODD) Negative (Negative) COVID-19 Clin Com See Note Influenza Type A (ANN) Negative (Negative) Influenza Type B (ANN) Negative (Negative) Influenza A & B Note See Note Independent Interpretation I performed an independent interpretation of an: Plain X-Ray (Chest:Increased central bronchovascular markings questionable for airways disease versus mild pulmonary edema. Atelectasis or small infiltrates at the lung bases. ) Radiology Impression Discussion of test interpretation with radiology: I have reviewed the radiologist's reading. Chronic Conditions Patient?s care impacted by: Other (COPD) Critical Care Time Critical Care Time Critical Care Time: Yes Total Critical Care Time: 60 Attestation: I spent 60 minutes providing critical care service to the patient, this including time spent at the bedside to evaluate the patient, reassess the patient, monitoring vital signs, review labs, and radiographic studies, counseling the patient/family, discussing the case with consultants, disposition the patient. Discharge Plan Discharge Clinical Impression: Acute exacerbation of chronic obstructive airways disease, Acute respiratory failure, unspecified whether with hypoxia or hypercapnia Patient Disposition: Admitted As Inpatient
[2023-04-20 15:11] LABS: ABG Base Excess 6.3 mmol/L; ABG HCO3 35 mmol/L (22-26); ABG pCO2 69 mmHg (32-45); ABG pH 7.31 (7.35-7.45); ABG pO2 59 mmHg (83-108)
[2023-04-20 15:36] LABS: MANUAL DIFF FLAG NO
[2023-04-20] MEDS: methylPREDNISolone Sod Succ 125 MG/2 ML VIAL IVPUSH (15:40)
[2023-04-20] MEDS: Magnesium Sulfate/H2O 2 GM/50 ML PIGGYBACK IV (15:40)
[2023-04-20 15:42] LABS: Basophils Percent Auto 0.3 % (0-2); Eosinophils Absolute Auto 0.1 X10*3/uL (0.0-0.4); Eosinophils Percent Auto 1.1 % (0-4); Hemoglobin 17.1 g/dl (12.0-16.0); Imm Gran Abs Auto 0.06 X10*3/uL (0.00-0.03); Imm Gran Pct Auto 0.5 % (0.0-0.4); Lymphocytes Absolute Auto 3.1 X10*3/uL (1.2-4.9); Lymphocytes Percent Auto 26.9 % (20-40); Mean Corpuscular Volume 100.2 fL (80.0-98.0); Mean Platelet Volume 11.2 fL (9.4-12.3); Monocytes Absolute Auto 0.5 X10*3/uL (0.1-1.2); Monocytes Percent Auto 4.5 % (2-11); Neutrophils Absolute Auto 7.7 x10*3/uL (2.0-8.3); Neutrophils Percent Auto 66.7 % (45-73); Platelet Count 116 X10*3/uL (160-400); Red Blood Count 5.51 X10*6/uL (4.20-5.50); Red Cell Distribution Width 16.5 % (11.0-16.0); White Blood Count 11.6 X10*3/uL (4.8-10.8)
[2023-04-20 15:55] LABS: Lactic Acid 1.3 mmol/L (0.5-2.0)
[2023-04-20 15:58] LABS: IDNOW Serial# 9DB6401D; Influenza A Negative (Negative); Influenza B2 Negative (Negative)
[2023-04-20 15:59] LABS: COVID-19 Test Negative (Negative); IDNOW Serial# 08D9AD1C
[2023-04-20 15:59] LABS: Alanine Aminotransferase 22 U/L (0-31); Alkaline Phosphatase 133 U/L (39-117); Anion Gap 14 (12-20); Aspartate Amino Transferase 32 U/L (5-31); Bilirubin Total 0.9 mg/dL (0.0-1.0); Blood Urea Nitrogen 14 mg/dL (9-16); Calcium 9.8 mg/dL (8.4-10.2); Carbon Dioxide 35 mmol/L (22-29); Chloride 91 mmol/L (96-108); Creatinine Clr Calc Pharmacy 66.7; Estimated Glomerular Filt Rate > 60; Glucose Random 137 mg/dL (60-115); Magnesium 2.2 mg/dL (1.6-2.6); Potassium 3.6 mmol/L (3.3-5.1); Sodium 136 mmol/L (135-145); Total Protein 8.3 g/dL (6.5-8.0)
[2023-04-20] MEDS: cefTRIAXone sodium 1 GM in 0.9 % Sodium Chloride 50 ML IV (16:00)
[2023-04-20 16:04] LABS: B Type Natriuretic Peptide 24 pg/mL (<100)
[2023-04-20 16:08] LABS: Hematocrit 55.2 % (37.0-47.0)
[2023-04-20 16:09] LABS: Troponin-I High Sensitivity < 2.7 ng/L (<3.5-17.0)
[2023-04-20 16:09] LABS: ABG Refer to POC result
[2023-04-20] MEDS: Azithromycin 500 MG in 0.9 % Sodium Chloride 250 ML 125 MG IV (17:17)
[2023-04-20 17:33] LABS: ABG Base Excess 7.1 mmol/L; ABG HCO3 37 mmol/L (22-26); ABG pCO2 76 mmHg (32-45); ABG pH 7.29 (7.35-7.45); ABG pO2 71 mmHg (83-108)
[2023-04-20 17:40] LABS: ABG Refer to POC result
[2023-04-20] MEDS: acetaZOLAMIDE sodium 500 MG VIAL 250 MG IVPUSH (19:52)
--- NOTE | 2023-04-20 20:04 | PM.CCHP ---
History of Present Illness Date of Service: 04/20/23 Attending physician on admission: Miki Johnson Chief Complaint: Dyspnea Patient is a 57-year-old female with a past medical history of COPD on home 02 4L,? hepatitis C, hypertension, hypothyroidism, hyperlipidemia,? IV drug abuse,? who presented to the emergency? department with dyspnea.? Patient presented to the emergency department with difficulty breathing and low oxygenation in the 80s on her baseline 4L. Patient reports? not feeling well in the past 2 days,? reports cough and greenish sputum.? ?Laboratory data was significant for WBC 11.6,? hemoglobin of 17.1,? chloride 91, serum bicarb 35 and? ABGs:? 7.31/69/59/35 Chest Xray:? with pulmonary congestion and some signs of possible aspiration pneumonia on right lower lobe ?ED course:? ?Patient received albuterol, methylprednisolone 125, medium 2 g, ceftriaxone 1 g, azithromycin and 500 mg.? Patient was placed on BiPAP? ?Patient be admitted to the ICU for? acute? hypercapnic and hypoxic respiratory failure requiring BiPAP Review of Systems Review of Systems: Yes all other systems are reviewed and are negative [facility] Past Medical History Medical History Hyperlipidemia Psychosis Hypoxia Acute exacerbation of chronic obstructive airways disease Hepatitis C HTN (hypertension) Hypothyroid COPD (chronic obstructive pulmonary disease) Family History Family History Father HTN (hypertension) Mother Gastritis Ovarian cancer Arthritis Son Thyroid disease Social History Social History Household Members: Significant Other Housing: Apartment Do you presently have visiting nurse or other home services: Yes (nurse and [employer]) Alcohol intake: current Alcohol intake frequency: does not drink Patient Tobacco Use Status: Current everyday Tobacco user Tobacco use type: Cigarette Cigarette Packs Per Day: 1 Cigarettes Per Day: 20.0 Smoked in Last 30 Days: Yes e-Cigarette/Vaping Use: Never Used Patient Interested in Nicotine Replacement: No Patient Given Instructions on How to Stop Smoking: No Second Hand Smoke Exposure: No Use of substances other than those prescribed or required for medical reasons: Yes Substance Use Type: Heroin Substance Use Frequency: Daily Last Used Substance: Days (ago) Currently Displaying Signs/Symptoms of Drug Intoxication Withdrawal: No Any prior treatment program specific to substance use: No Have you been hit, kicked, punched, or otherwise hurt by someone within the past year? If so, by whom?: No Do you feel safe in your current relationship?: Yes Is there a partner from a previous relationship who is making you feel unsafe now?: No Are you made to feel afraid or neglected: No Advance Directives: No Advance Directives Information Provided: No Do you have thoughts of harming others: None Do you have a plan to hurt others: No Plan Recently lost weight without trying: No How much weight loss: Unsure Eating poorly because of decreased appetite: No Nutrition screen score: 2 Nutrition Risks: No Nutritional Risk Patient : No : No Poor oral hygiene: No service: No Current occupational status: unemployed Meds Allergies Allergy/AdvReac Type Severity Reaction Status Date / Time Penicillins [PENICILLINS] Allergy Unknown RED ITCHY Verified 10/21/20 08:02 RASH SEAFOOD Allergy Unknown FEVER Uncoded 12/13/19 16:37 SWELLING Active Medications: Current Medications Enoxaparin Sodium (Enoxaparin Sodium 40 Mg/0.4 Ml Syringe) 40 mg SUBCUT Q24H MAYRA Sodium Chloride (Ns) 1,000 mls @ 250 mls/hr IV .Q4H ONE Stop: 04/20/23 23:32 Last Admin: 04/20/23 19:52 Dose: Not Given Home Medications Medication Instructions Recorded Confirmed Last Taken Type albuterol sulfate 90 mcg/actuation 2 puff inhalation Q4-6H PRN 03/11/20 04/20/23 Unknown History aerosol inhaler (ProAir HFA) Shortness Of Breath Or Wheezing lisinopril 40 mg tablet 40 mg PO DAILY 03/11/20 04/20/23 Unknown History rosuvastatin 20 mg tablet 20 mg PO DAILY 03/11/20 04/20/23 Unknown History perphenazine 4 mg tablet 4 mg PO BEDTIME 09/24/21 04/20/23 Unknown History amlodipine 10 mg tablet 10 mg PO DAILY 10/01/22 04/20/23 Unknown History levothyroxine 200 mcg tablet 200 mcg PO QAM 10/01/22 04/20/23 Unknown History sertraline 25 mg tablet 25 mg PO QAM 10/01/22 04/20/23 Unknown History umeclidinium 62.5 mcg/actuation 1 inh inhalation DAILY 10/01/22 04/20/23 Unknown History blister powder for inhalation (Incruse Ellipta) fluticasone 500 mcg-salmeterol 50 1 ea inhalation BID 04/20/23 04/20/23 Unknown History mcg/dose blistr powdr for inhalation (Advair Diskus) hydroxyzine pamoate 50 mg capsule 50 mg PO BID PRN Itching 04/20/23 04/20/23 Unknown History ipratropium 0.5 mg-albuterol 3 mg 3 ml inhalation QID PRN wheezing 04/20/23 04/20/23 Unknown History (2.5 mg base)/3 mL nebulization soln levothyroxine 25 mcg tablet 12.5 mcg PO DAILY 04/20/23 04/20/23 Unknown History lidocaine 5 % topical patch 1 patch topical Q24H PRN Pain 04/20/23 04/20/23 Unknown History omega-3 acid ethyl esters 1 gram 1 cap PO BID@1200,1800 04/20/23 04/20/23 Unknown History capsule pantoprazole 40 mg tablet,delayed 40 mg PO DAILY@1200 04/20/23 04/20/23 Unknown History release sertraline 100 mg tablet 100 mg PO DAILY 04/20/23 04/20/23 Unknown History Physical Exam Vital Signs: Vital Signs: Last Vital Signs Temp 98.4 F 04/20/23 14:35 Pulse 87 04/20/23 19:42 Resp 17 04/20/23 19:42 BP 123/78 04/20/23 19:42 Pulse Ox 91 L 04/20/23 19:42 O2 Del Method BiPAP 04/20/23 19:42 Oxygen Flow Rate 6 04/20/23 14:35 BMI result Body Mass Index 25.5 ?General:? Alert oriented x3 no severe distress on BIPAP ?HEENT:? Head is normocephalic, atraumatic, pupils equal round reactive to light accommodation bilaterally.? Extraocular movements appear intact.? Buccal mucosa is dry, Neck is supple ?Cardiac:? Clear S1-S2, no murmurs rubs or gallops. ?Pulmonary:? Expiratory wheezing throughout. On BIPAP ?Abdomen:? ?Abdomen soft, non-tender, non-distended. Normal bowel sounds. No pulsatile mass. No hepatosplenomegaly. ?Musculoskeletal:? Moving all 4 extremities upon request a major joints, there is no crepitus or tenderness.? The strength is 5/5 bilaterally and throughout all 4 extremities.? Gait not assessed at this point. ?Neurologic:? cranial nerves 2-12 are grossly intact.? No focal deficits noted.Motor strength as above.?? ?Skin:? Scattered bruising throughout extremities, multiple injection varma on upper extremities. Vascular:? 2+ pulses upper and lower extremities distally.? Results Labs 04/21/23 04:54 04/21/23 00:27 Labs: Laboratory Results - last 24 hr 04/20/23 04/20/23 04/20/23 15:04 15:28 15:29 MCV 100.2 H MCH 31.0 MCHC 31.0 RDW 16.5 H Plt Count 116 L MPV 11.2 Immature Gran % (Auto) 0.5 H Neut % (Auto) 66.7 Lymph % (Auto) 26.9 Winkler % (Auto) 4.5 Eos % (Auto) 1.1 Baso % (Auto) 0.3 Lymph # (Auto) 3.1 Winkler # (Auto) 0.5 Eos # (Auto) 0.1 Baso # (Auto) 0.0 Abs Immat Gran (auto) 0.06 H Absolute Neuts (auto) 7.7 Absolute Nucleated RBC 0.000 Nucleated RBC % (auto) 0.0 O2 Saturation 88.0 ABG pH at Pt Temp 7.31 L ABG pCO2 at Pt Temp 69 H* ABG pO2 at Pt Temp 59 L ABG HCO3 35 H ABG Base Excess (Actual) 6.3 Anion Gap 14 Estim Creat Clear Calc 66.7 Estimated GFR > 60 Random Glucose 137 H Lactic Acid 1.3 Calcium 9.8 Magnesium 2.2 Total Bilirubin 0.9 AST 32 H ALT 22 Alkaline Phosphatase 133 H B-Natriuretic Peptide 24 Total Protein 8.3 H Albumin 4.0 COVID-19 (TODD) COVID-19 Clin Com Influenza Type A (ANN) Influenza Type B (ANN) Influenza A & B Note 04/20/23 04/20/23 15:36 17:25 MCV MCH MCHC RDW Plt Count MPV Immature Gran % (Auto) Neut % (Auto) Lymph % (Auto) Winkler % (Auto) Eos % (Auto) Baso % (Auto) Lymph # (Auto) Winkler # (Auto) Eos # (Auto) Baso # (Auto) Abs Immat Gran (auto) Absolute Neuts (auto) Absolute Nucleated RBC Nucleated RBC % (auto) O2 Saturation 93.0 ABG pH at Pt Temp 7.29 L ABG pCO2 at Pt Temp 76 H* ABG pO2 at Pt Temp 71 L ABG HCO3 37 H ABG Base Excess (Actual) 7.1 Anion Gap Estim Creat Clear Calc Estimated GFR Random Glucose Lactic Acid Calcium Magnesium Total Bilirubin AST ALT Alkaline Phosphatase B-Natriuretic Peptide Total Protein Albumin COVID-19 (TODD) Negative COVID-19 Clin Com See Note Influenza Type A (ANN) Negative Influenza Type B (ANN) Negative Influenza A & B Note See Note Imaging Radiologist's Impressions: Impressions Chest X-Ray 04/20/23 17:43 IMPRESSION: Increased central bronchovascular markings questionable for airways disease versus mild pulmonary edema. Atelectasis or small infiltrates at the lung bases. Assessment and Plan (1) Acute respiratory failure with hypoxia and hypercapnia: Status: Acute (2) Acute exacerbation of chronic obstructive airways disease: Status: Acute (3) Pneumonia: Status: Acute Plan 57-year-old female? with history of COPD on home 02 4L,? hepatitis C, hypertension, hypothyroidism, hyperlipidemia,? IV drug abuse,admitted for? acute hypercapnic and hypoxic respiratory failure requiring BiPAP support Plan: Neuro:? No acute issues. Cardiac:?? Pulmonary congestion:? and chest x-ray with evidence of some pulmonary congestion.? Will give diamox as her serum bicarb is elevated.? Monitor for diuresing. Echo in the am? Pulmonary:?? acute hypoxic and hypercapnic respiratory failure secondary to Pulmonary edema and pneumonia. ? received systemic glucocorticoids in ED. Will cont? systemic? glucocorticoids, nebulized bronchodilators, and? antibiotics Renal:? No acute issues.?? Endo:? No acute issues.?? GI:?? No acute issues ID:? ?Pneumonia- ,? No signs of severe infection.? Patient has penicillin allergy? will give Levaquin and cont azithromycin.?? Heme/Onc:? No acute issues. Psych:? ? heroin abuse-? patient reports last use 3 days ago. Will add utox Miscellaneous:? No acute issues. Prophylaxis:? lovenox? Diet:? NPO while on BIPAP Critical care time spent:? 60 minutes
[2023-04-20 20:31] LABS: Thyroid Stimulating Hormone 32.28 uIU/mL (0.32-4.0)
[2023-04-20] MEDS: levoFLOXacin/D5W 500 MG/100 ML PIGGYBACK 100 MG IV (20:32)
[2023-04-20] MEDS: Enoxaparin Sodium 40 MG/0.4 ML SYRINGE SUBCUT (20:32)
--- NOTE | 2023-04-20 20:48 | PHA.MEDREC ---
Pharmacy Consult ? Medication Reconciliation Pharmacy has completed the medication reconciliation.Unable to confirm current medications. Used claim history. Niece is bringing list of medications tomorrow (Sara [phone]) Debbie Baer CPhT
[2023-04-20 21:07] LABS: Phosphorus 3.7 mg/dL (2.7-4.5)
[2023-04-20] MEDS: Levothyroxine Sodium 100 MCG/5 ML VIAL IVPUSH (22:32)
[2023-04-20] MEDS: guaiFENesin 200 MG/10 ML 10 ML LIQUID PO (22:50)
[2023-04-21] VITALS (21 sets, daily range): BP systolic 107–159; BP diastolic 61–102; PULSE 58–96; RESP 12–22; TEMP 36.4–37.1; O2SAT 88–95; BMI 26.2
[2023-04-21 00:58] LABS: Amphetamine Screen Urine Not Detected (Not Detect); Barbiturates, Urine Not Detected (Not Detect); Benzodiazepines Screen Urine Not Detected (Not Detect); Cannabinoid Screen Urine Not Detected (Not Detect); Cocaine Screen Urine Not Detected (Not Detect); Fentanyl, urine POSITIVE (Not Detect); Opiate Screen Urine POSITIVE (Not Detect); Phencyclidine Screen Urine Not Detected (Not Detect)
[2023-04-21 01:11] LABS: Alanine Aminotransferase 19 U/L (0-31); Albumin Level 3.8 g/dL (3.5-5.0); Alkaline Phosphatase 126 U/L (39-117); Anion Gap 12 (12-20); Aspartate Amino Transferase 26 U/L (5-31); Bilirubin Total 0.8 mg/dL (0.0-1.0); Blood Urea Nitrogen 10 mg/dL (9-16); Calcium 9.4 mg/dL (8.4-10.2); Carbon Dioxide 36 mmol/L (22-29); Chloride 96 mmol/L (96-108); Creatinine Clr Calc Pharmacy 80.8; Estimated Glomerular Filt Rate > 60; Glucose Random 160 mg/dL (60-115); Magnesium 2.6 mg/dL (1.6-2.6); Potassium 4.3 mmol/L (3.3-5.1); Sodium 140 mmol/L (135-145); Total Protein 7.9 g/dL (6.5-8.0)
[2023-04-21 01:16] LABS: VBG Base Excess 8.6 mmol/L; VBG HCO3 38 mmol/L (22-26); VBG pCO2 73 mmHg; VBG pH 7.32 (7.32-7.43); VBG pO2 91 mmHg
[2023-04-21 01:17] LABS: Venous Blood Gas Refer to POC result
[2023-04-21 01:26] LABS: TSH reflex Free T4 5.92 uIU/mL (0.32-4.0)
[2023-04-21 05:04] LABS: VBG Base Excess 7.7 mmol/L; VBG HCO3 35 mmol/L (22-26); VBG pCO2 57 mmHg; VBG pH 7.39 (7.32-7.43); VBG pO2 54 mmHg
[2023-04-21 05:08] LABS: Venous Blood Gas Refer to POC result
[2023-04-21 05:09] LABS: Basophils Percent Auto 0.2 % (0-2); Monocytes Absolute Auto 0.2 X10*3/uL (0.1-1.2); PLT CLUMP 1; SCAN SMEAR FLAG 1
[2023-04-21 05:11] LABS: Hematocrit 52.7 % (37.0-47.0); Hemoglobin 16.6 g/dl (12.0-16.0); Imm Gran Abs Auto 0.07 X10*3/uL (0.00-0.03); Imm Gran Pct Auto 0.9 % (0.0-0.4); Lymphocytes Absolute Auto 1.1 X10*3/uL (1.2-4.9); Mean Corpuscular HGB Conc 31.5 g/dl (31.0-35.0); Mean Corpuscular Hemoglobin 31.8 pg (27.0-33.0); Mean Platelet Volume 11.7 fL (9.4-12.3); Neutrophils Absolute Auto 6.8 x10*3/uL (2.0-8.3); Neutrophils Percent Auto 82.9 % (45-73); Platelet Count 121 X10*3/uL (160-400); Red Blood Count 5.22 X10*6/uL (4.20-5.50); Red Cell Distribution Width 16.8 % (11.0-16.0); White Blood Count 8.1 X10*3/uL (4.8-10.8)
[2023-04-21 05:12] LABS: MANUAL DIFF FLAG NO
[2023-04-21 05:23] LABS: Phosphorus 3.5 mg/dL (2.7-4.5)
[2023-04-21] MEDS: guaiFENesin 200 MG/10 ML 10 ML LIQUID PO ×2 (05:26→12:34)
--- NOTE | 2023-04-21 07:00 | CA_ITS ---
Transthoracic Echocardiogram Patient (Last, First, Middle): Sandra Rose D Gender: Female Date of : 1965 Age: 57 Procedure Date: 04/21/2023 Procedure Type: Transthoracic Echocardiogram Location: ICU Height: 165.1 cm Weight: 71.22 kg BSA: 1.78 m2 Heart Rate: 71 bpm BP: 129 / 92 mmHg Computer Hardware Designer: SB Referring MD: Gretel Khan NP Symptoms: Pulmonary edema on bipap Study Quality: Fair ECG Rhythm: Sinus Conclusions: - Normal left ventricular cavity size. There is normal left ventricular wall thickness. The left ventricular systolic function is low normal. The visually estimated ejection fraction is between 55-60%. - E/E prime ratio is between 8 and 15 consistent with indeterminate filling pressures. Reduced global longitudinal strain -14%. - The inferoseptal wall, the basal anteroseptal, and mid anteroseptal segments are akinetic. - Normal right ventricular cavity size and systolic function. Findings Left Ventricle Normal left ventricular cavity size. There is normal left ventricular wall thickness. The left ventricular systolic function is low normal. The visually estimated ejection fraction is between 55-60%. There is evidence of regional wall motion abnormalities. Abnormal diastolic function is noted. Spectral Doppler is indicative of a pseudonormal filling pattern. E/E prime ratio is between 8 and 15 consistent with indeterminate filling pressures. Reduced global longitudinal strain -14%. Wall Motion Rest Echo Findings The inferoseptal wall, the basal anteroseptal, and mid anteroseptal segments are akinetic. Right Ventricle Normal right ventricular cavity size and systolic function. Atria The left atrium is normal in size. The right atrium is normal in size. Aortic Valve Normal aortic valve structure and function. There is no aortic valve stenosis. There is no aortic valve regurgitation. Mitral Valve The mitral valve appears normal. There is no mitral valve regurgitation. There is no mitral valve stenosis. Pulmonic Valve Normal pulmonic valve structure and function. There is no pulmonic valve regurgitation. Tricuspid Valve Normal tricuspid valve structure and function. There is no tricuspid valve regurgitation. Normal right atrial pressure. There is no evidence of pulmonary hypertension. Great Vessels All visible segments of the aorta are normal in size. The visualized portions of the pulmonary artery and branches are normal. Venous The inferior vena cava is normal in size and collapses greater than 50% with inspiration. Pericardium/Pleural There is no evidence of pericardial effusion. Prior Study Comparison No prior study available for comparison. Measurements 2D Linear Measurements IVSd: 0.59 0.6-0.9/0.6-1.0 cm LVIDd: 5.38 3.9-5.3/4.2-5.9 cm LVIDd Index: 3.02 2.4-3.2/2.2-3.1 cm/m2 LVIDs: 3.77 2.0-3.6 cm LVPWd: 0.85 0.7-1.1 cm LA Diam: 3.20 2.7-3.8/3.0-4.0 cm LAIDs Index: 1.80 1.5-2.3 cm/m2 LV Mass: 167.66 67-162/88-224 g LV Mass Index: 94.19 43-95/49-115 g/m2 LVOT Diam: 2.10 3.0+(-)1.3 cm 2D Systolic Function EF 4C: 55.80 >55% EF 2C: 67.40 >55% EF BiP: 61.20 >55% Mitral Valve MV Pk E: 0.81 MV PK A: 0.80 MV Decel Time: 241.00 E/A: 1.00 E'Lateral: 7.83 E'Medial: 7.07 E/E' Med: 11.40 E/E' Lat: 10.30 PHT: 71.00 MVA PHT: 3.10 Decel Loíza: 3.34 Aortic Valve AoV Pk Niles: 1.30 AoV Pk Grad: 7.00 ALBAN: 3.01 LVOT LVOT Pk Niles: 1.13 LVOT Mn Niles: 0.81 LVOT VTI: 0.24 LVOT Pk Grad: 5.00 LVOT Mn Grad: 3.00 LVOT Diam: 2.10 LVOT Area: 3.46 Diastolic Function MV Pk E: 0.81 MV Pk A: 0.80 E/A: 1.00 E'Medial: 7.07 E/E' Med: 11.40 E' Laterial: 7.83 E/E' Lat: 10.30 Right Ventricle TAPSE (mm): 21.90 TVS' Niles: 11.90 Tricuspid Valve TR Pk Niles: 2.62 TR Pk Grad: 27.00 RA Press: 3.00 RVSP: 30.00 Great Vessels Aorta Sinus of Valsalva: 3.10 2.0-3.5 cm Ao Asc: 3.00 2.1-3.4 cm Pulmonary Veins Pulm Vein S/D 1.10 Pulmonary Valve PV Pk Niles: 0.81 Peak PV Grad: 3.00 Updated in Other Vendor System with Status of Final Johny Velazco MD electronically signed on 04/21/2023 3:42:27 PM with status of Final
[2023-04-21] MEDS: Albuterol/Iprat 2.5/0.5MG 3 ML AMPUL.NEB INHALE ×4 (07:57→20:09)
[2023-04-21] MEDS: methylPREDNISolone Sod Succ 40 MG/ML VIAL IVPUSH (08:24)
[2023-04-21] MEDS: amLODIPine Besylate 10 MG TABLET PO (08:37)
--- NOTE | 2023-04-21 08:43 | PM.CCPN ---
Subjective Subjective Date of Service: 04/21/23 Interval History: 57-year-old lady with underlying history of COPD 4 L of supplemental oxygen, hepatitis-C, hypertension, hypothyroidism, hyperlipidemia, substance abuse, now on methadone admitted on 04/20/2023 to intensive care unit with shortness of breath and hypercapnic respiratory failure requiring BiPAP support. Patient was treated with systemic glucocorticoids, nebulized bronchodilators, and acetazolamide with significant improvement. Titrated off BiPAP overnight. Critical Care Time (minutes): 0 Physical Exam Vital Signs: Vital Signs: Last Vital Signs Temp 97.6 F 04/21/23 08:00 Pulse 82 04/21/23 08:00 Resp 12 04/21/23 08:00 BP 129/92 H 04/21/23 08:00 Pulse Ox 89 L 04/21/23 08:00 O2 Del Method Nasal Cannula 04/21/23 08:00 O2 Flow Rate 6 04/21/23 08:00 FiO2 60 04/21/23 05:00 Oxygen Flow Rate 6 04/20/23 14:35 BMI result Body Mass Index 26.2 Const: General: no acute distress, alert and awake Eyes: Sclerae: sclerae normal EOM: EOMs intact bilaterally Neck: Neck: Yes no lymphadenopathy, Yes trachea midline and Yes supple Resp: Effort & Inspection: normal respiratory effort and no respiratory distress Auscultation: clear to auscultation bilaterally Cardio: Rate: regular rate Rhythm: regular rhythm Heart sounds: no gallops, no murmurs and no rubs GI: Palpation (GI): Soft to palpation and Other GI palpation findings present ( Nontender) Auscultation: normal bowel sounds Extrem: General: Yes no pedal edema, No clubbing and No cyanosis Objective Data Labs 04/21/23 04:54 04/21/23 00:27 Labs: Laboratory Results - last 24 hr 04/20/23 04/20/23 04/20/23 15:04 15:28 15:29 WBC 11.6 H RBC 5.51 H Hgb 17.1 H Hct 55.2 H MCV 100.2 H MCH 31.0 MCHC 31.0 RDW 16.5 H Plt Count 116 L MPV 11.2 Immature Gran % (Auto) 0.5 H Neut % (Auto) 66.7 Lymph % (Auto) 26.9 Barber % (Auto) 4.5 Eos % (Auto) 1.1 Baso % (Auto) 0.3 Lymph # (Auto) 3.1 Barber # (Auto) 0.5 Eos # (Auto) 0.1 Baso # (Auto) 0.0 Abs Immat Gran (auto) 0.06 H Absolute Neuts (auto) 7.7 Absolute Nucleated RBC 0.000 Nucleated RBC % (auto) 0.0 O2 Saturation 88.0 ABG pH at Pt Temp 7.31 L ABG pCO2 at Pt Temp 69 H* ABG pO2 at Pt Temp 59 L ABG HCO3 35 H ABG Base Excess (Actual) 6.3 VBG pH VBG pCO2 VBG pO2 VBG HCO3 VBG O2 Saturation VBG Base Excess Sodium 136 Potassium 3.6 Chloride 91 L Carbon Dioxide 35 H Anion Gap 14 BUN 14 Creatinine 0.92 Estim Creat Clear Calc 66.7 Estimated GFR > 60 Random Glucose 137 H Lactic Acid 1.3 Calcium 9.8 Phosphorus Magnesium 2.2 Total Bilirubin 0.9 AST 32 H ALT 22 Alkaline Phosphatase 133 H Troponin I High Sens < 2.7 B-Natriuretic Peptide 24 Total Protein 8.3 H Albumin 4.0 TSH 32.28 H Free T4 Urine Opiates Screen Urine Fentanyl Screen Ur Barbiturates Screen Ur Phencyclidine Scrn Ur Amphetamines Screen U Benzodiazepines Scrn Urine Cocaine Screen U Marijuana (THC) Screen COVID-19 (TODD) COVID-19 Clin Com Influenza Type A (ANN) Influenza Type B (ANN) Influenza A & B Note 04/20/23 04/20/23 04/20/23 15:36 17:25 20:44 WBC RBC Hgb Hct MCV MCH MCHC RDW Plt Count MPV Immature Gran % (Auto) Neut % (Auto) Lymph % (Auto) Barber % (Auto) Eos % (Auto) Baso % (Auto) Lymph # (Auto) Barber # (Auto) Eos # (Auto) Baso # (Auto) Abs Immat Gran (auto) Absolute Neuts (auto) Absolute Nucleated RBC Nucleated RBC % (auto) O2 Saturation 93.0 ABG pH at Pt Temp 7.29 L ABG pCO2 at Pt Temp 76 H* ABG pO2 at Pt Temp 71 L ABG HCO3 37 H ABG Base Excess (Actual) 7.1 VBG pH VBG pCO2 VBG pO2 VBG HCO3 VBG O2 Saturation VBG Base Excess Sodium Potassium Chloride Carbon Dioxide Anion Gap BUN Creatinine Estim Creat Clear Calc Estimated GFR Random Glucose Lactic Acid Calcium Phosphorus 3.7 Magnesium Total Bilirubin AST ALT Alkaline Phosphatase Troponin I High Sens B-Natriuretic Peptide Total Protein Albumin TSH Free T4 Urine Opiates Screen Urine Fentanyl Screen Ur Barbiturates Screen Ur Phencyclidine Scrn Ur Amphetamines Screen U Benzodiazepines Scrn Urine Cocaine Screen U Marijuana (THC) Screen COVID-19 (TODD) Negative COVID-19 Clin Com See Note Influenza Type A (ANN) Negative Influenza Type B (ANN) Negative Influenza A & B Note See Note 04/21/23 04/21/23 04/21/23 00:03 00:27 01:02 WBC RBC Hgb Hct MCV MCH MCHC RDW Plt Count MPV Immature Gran % (Auto) Neut % (Auto) Lymph % (Auto) Barber % (Auto) Eos % (Auto) Baso % (Auto) Lymph # (Auto) Barber # (Auto) Eos # (Auto) Baso # (Auto) Abs Immat Gran (auto) Absolute Neuts (auto) Absolute Nucleated RBC Nucleated RBC % (auto) O2 Saturation ABG pH at Pt Temp ABG pCO2 at Pt Temp ABG pO2 at Pt Temp ABG HCO3 ABG Base Excess (Actual) VBG pH 7.32 VBG pCO2 73 VBG pO2 91 VBG HCO3 38 H VBG O2 Saturation 99.0 VBG Base Excess 8.6 Sodium 140 Potassium 4.3 Chloride 96 Carbon Dioxide 36 H Anion Gap 12 BUN 10 Creatinine 0.76 Estim Creat Clear Calc 80.8 Estimated GFR > 60 Random Glucose 160 H Lactic Acid Calcium 9.4 Phosphorus Magnesium 2.6 Total Bilirubin 0.8 AST 26 ALT 19 Alkaline Phosphatase 126 H Troponin I High Sens B-Natriuretic Peptide Total Protein 7.9 Albumin 3.8 TSH 5.92 H Free T4 0.60 L Urine Opiates Screen POSITIVE H Urine Fentanyl Screen POSITIVE H Ur Barbiturates Screen Not Detected Ur Phencyclidine Scrn Not Detected Ur Amphetamines Screen Not Detected U Benzodiazepines Scrn Not Detected Urine Cocaine Screen Not Detected U Marijuana (THC) Screen Not Detected COVID-19 (TODD) COVID-19 Clin Com Influenza Type A (ANN) Influenza Type B (ANN) Influenza A & B Note 04/21/23 04/21/23 04:54 04:58 WBC 8.1 RBC 5.22 Hgb 16.6 H Hct 52.7 H MCV 101.0 H MCH 31.8 MCHC 31.5 RDW 16.8 H Plt Count 121 L MPV 11.7 Immature Gran % (Auto) 0.9 H Neut % (Auto) 82.9 H Lymph % (Auto) 14.0 L Barber % (Auto) 2.0 Eos % (Auto) 0.0 Baso % (Auto) 0.2 Lymph # (Auto) 1.1 L Barber # (Auto) 0.2 Eos # (Auto) 0.0 Baso # (Auto) 0.0 Abs Immat Gran (auto) 0.07 H Absolute Neuts (auto) 6.8 Absolute Nucleated RBC 0.000 Nucleated RBC % (auto) 0.0 O2 Saturation ABG pH at Pt Temp ABG pCO2 at Pt Temp ABG pO2 at Pt Temp ABG HCO3 ABG Base Excess (Actual) VBG pH 7.39 VBG pCO2 57 VBG pO2 54 VBG HCO3 35 H VBG O2 Saturation 88.0 VBG Base Excess 7.7 Sodium Potassium Chloride Carbon Dioxide Anion Gap BUN Creatinine Estim Creat Clear Calc Estimated GFR Random Glucose Lactic Acid Calcium Phosphorus 3.5 Magnesium Total Bilirubin AST ALT Alkaline Phosphatase Troponin I High Sens B-Natriuretic Peptide Total Protein Albumin TSH Free T4 Urine Opiates Screen Urine Fentanyl Screen Ur Barbiturates Screen Ur Phencyclidine Scrn Ur Amphetamines Screen U Benzodiazepines Scrn Urine Cocaine Screen U Marijuana (THC) Screen COVID-19 (TODD) COVID-19 Clin Com Influenza Type A (ANN) Influenza Type B (ANN) Influenza A & B Note Progress Note: A&P Assessment and plan (1) Acute respiratory failure with hypoxia and hypercapnia: Status: Acute (2) Alcoholic cirrhosis: Status: Acute (3) Hepatitis C: Status: Acute (4) COPD (chronic obstructive pulmonary disease): Status: Acute (5) Methadone dependence: Status: Acute Plan Assessment: 57-year-old lady with underlying oxygen-dependent COPD admitted with acute hypoxic and hypercapnic respiratory failure secondary to COPD exacerbation initially requiring BiPAP support now titrated off. Plan: Neuro: No acute issues. Cardiac: No acute issues. Pulmonary: Acute hypoxic and hypercapnic respiratory failure secondary to COPD exacerbation initially requiring BiPAP support now titrated off. Continue with systemic glucocorticoids, nebulized bronchodilators, also with possible aspiration pneumonitis/pneumonia component, continue Levaquin for 7 days. Renal: No acute issues. Endo: No acute issues. GI: No acute issues. ID: No acute issues Heme/Onc: No acute issues. Psych: No acute issues. Miscellaneous: Underlying methadone dependence, restart on methadone after verifying dose. Prophylaxis: Lovenox Diet: Regular Quality Stroke Does the patient have a stroke diagnosis?: No VTE Prior VTE?: No VTE Risk Level:: Medical - moderate - high VTE Device Contraindication: N/A - Device Ordered VTE Drug Contraindication: N/A - Med Ordered
--- NOTE | 2023-04-21 10:22 | HE.PHANOTE ---
Methadone Verification Received Methadone verification form from ICU. Med added to med rec. Patient last received 85 mg on 04/20/23 per Mica at [facility] Dwaine ([phone])
--- NOTE | 2023-04-21 11:05 | MHC.CM.PN ---
CM MET WITH PT AT BEDSIDE IN ICU. 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 PT IS INDEPENDENT BUT USES CANE WHEN GOES OUT. HOME 02 VIA [facility]. PT STATES SHE HAS A HCP. PCP DR. MO AT [facility]. DP: HOME WITH RESUMPTION OF VNA SERVICES WITH [facility] FOR NURSING AND WALLPAPER REMOVER STEAM SERVICES. CALLED PLACED TO NURSE STRAUSS AND RETURN REFERRAL SENT. PT HAS OWN RIDE HOME AT DC. CM WILL CONTINUE TO FOLLOW FOR ANY CHANGE TO DC PLAN/NEEDS.
[2023-04-21] MEDS: methADONE HCl 20 MG/2 ML ORAL.CONC 85 MG PO (12:34)
--- NOTE | 2023-04-21 13:42 | PM.EVENT ---
Event Note Date of Service: 04/22/23 Event Note: Patient was admitted to the ICU for COPD exacerbation, this afternoon downgraded to the floor. Patient came with COPD exacerbation-requiring BiPAP, IV steroids antibiotics nebs and ICU level of care. Physical exam: Unchanged from ICU note. Assessment and Plan: Above management discussed with the ICU in detail length-plan is continue nebs, steroids, antibiotics. Time Spent With Patient Time: Total time managing care of this patient today ____ minutes.
[2023-04-21] MEDS: Enoxaparin Sodium 40 MG/0.4 ML SYRINGE SUBCUT (21:55)
[2023-04-21] MEDS: levoFLOXacin/D5W 500 MG/100 ML PIGGYBACK 100 MG IV (21:55)
[2023-04-22] VITALS (10 sets, daily range): BP systolic 121–142; BP diastolic 60–87; PULSE 72–93; RESP 18–24; TEMP 36.1–36.6; O2SAT 92–97; BMI 26.6
[2023-04-22] MEDS: guaiFENesin 200 MG/10 ML 10 ML LIQUID PO ×3 (00:33→23:02)
[2023-04-22] MEDS: Ibuprofen 600 MG TABLET PO (00:33)
[2023-04-22] MEDS: Levothyroxine Sodium 200 MCG TABLET PO (05:33)
[2023-04-22] MEDS: Albuterol/Iprat 2.5/0.5MG 3 ML AMPUL.NEB INHALE ×4 (07:54→21:08)
[2023-04-22] MEDS: lisinopriL 40 MG TABLET PO (09:23)
[2023-04-22] MEDS: amLODIPine Besylate 10 MG TABLET PO (09:23)
[2023-04-22] MEDS: Levothyroxine Sodium 25 MCG TABLET 12.5 MCG PO (09:23)
[2023-04-22] MEDS: Sertraline HCL 25 MG TABLET PO (09:23)
[2023-04-22] MEDS: methylPREDNISolone Sod Succ 40 MG/ML VIAL IVPUSH (09:23)
[2023-04-22] MEDS: Sertraline HCL 100 MG TABLET PO (09:23)
[2023-04-22] MEDS: methADONE HCl 20 MG/2 ML ORAL.CONC 85 MG PO (09:24)
[2023-04-22] MEDS: Lidocaine 4 % Patch ADH..PATCH 1 PATCH TRANSDERMA ×2 (09:28→16:19)
[2023-04-22] MEDS: Atorvastatin Calcium 80 MG TABLET PO (09:28)
--- NOTE | 2023-04-22 11:40 | HE.PHANOTE ---
CHANGE IV LEVOFLOXACIN TO PO LEVOFLOXACIN PER POLICY (OK PER DR CARTER)
[2023-04-22] MEDS: Omeprazole 20 MG CAPSULE.DR PO (11:57)
--- NOTE | 2023-04-22 12:56 | MHC.CM.PN ---
EMR REVIEWED, PT STEP DOWN FROM ICU, PT W/COPD EXAC NO LONGER ON BIPAP AND NOW ON 8L O2, NO PLAN FOR DC AT THIS TIME, CM WILL CONT TO FOLLOW DC NEEDS.
--- NOTE | 2023-04-22 13:09 | P.PNIM_ITS ---
Subjective Subjective Date of Service: 04/22/23 Interval History: copd excerebation Review of Systems sob seems similar yesterday ,still sob with minimal excersion no fever or chest pain Physical Exam 2 Vital Signs: Vital Signs: Last Vital Signs Temp 97.6 F 04/22/23 11:30 Pulse 93 04/22/23 11:30 Resp 18 04/22/23 11:30 BP 124/76 04/22/23 11:30 Pulse Ox 97 04/22/23 11:30 O2 Del Method Nasal Cannula 04/22/23 11:30 O2 Flow Rate 8 04/22/23 11:30 FiO2 60 04/21/23 05:00 Oxygen Flow Rate 6 04/20/23 14:35 BMI result Body Mass Index 26.6 Appearance: Alert.? Oriented X3.? cvs: rrr, [id number] . res: air entry diminshed b/l ,has exp wheezing abd: no rebound or guarding ,nt, bs present. ext pulses present , no cyanosis . neuro: axo3 , nonfocal. Objective Data Active Medications Albuterol/Ipratropium (Albuterol/Iprat 2.5/0.5mg 3 Ml Ampul.Neb) 3 ml INHALE RQ4H WHILE AWAKE [facility] Last Admin: 04/22/23 11:18 Dose: 3 ml Documented By: RAMAN Albuterol/Ipratropium (Albuterol/Iprat 2.5/0.5mg 3 Ml Ampul.Neb) 3 ml INHALE QID PRN PRN Reason: wheezing Amlodipine Besylate (Amlodipine Besylate 10 Mg Tablet) 10 mg PO DAILY [facility]; Protocol Last Admin: 04/22/23 09:23 Dose: 10 mg Documented By: MOR Atorvastatin Calcium (Atorvastatin Calcium 80 Mg Tablet) 80 mg PO DAILY [facility] Last Admin: 04/22/23 09:28 Dose: 80 mg Documented By: MOR Enoxaparin Sodium (Enoxaparin Sodium 40 Mg/0.4 Ml Syringe) 40 mg SUBCUT Q24H [facility] Last Admin: 04/21/23 21:55 Dose: 40 mg Documented By: OGTRJazmin Famotidine (Famotidine 20 Mg Tablet) 40 mg PO BEDTIME [facility] Guaifenesin (Guaifenesin 200 Mg/10 Ml 10 Ml Liquid) 10 ml PO Q4H PRN PRN Reason: Cough Last Admin: 04/22/23 09:23 Dose: 10 ml Documented By: MOR Hydroxyzine HCl (Hydroxyzine Hcl 50 Mg Tablet) 50 mg PO BID PRN PRN Reason: Itching Ibuprofen (Ibuprofen 600 Mg Tablet) 600 mg PO Q6H PRN PRN Reason: Pain, Severe (Pain Scale 7-10) Last Admin: 04/22/23 00:33 Dose: 600 mg Documented By: BALWINDER Levofloxacin (Levofloxacin 500 Mg Tablet) 500 mg PO Q24H [facility] Levothyroxine Sodium (Levothyroxine Sodium 200 Mcg Tablet) 200 mcg PO DAILY@0600 [facility] Last Admin: 04/22/23 05:33 Dose: 200 mcg Documented By: BALWINDER Levothyroxine Sodium (Levothyroxine Sodium 25 Mcg Tablet) 12.5 mcg PO DAILY [facility] Last Admin: 04/22/23 09:23 Dose: 12.5 mcg Documented By: MOR Lidocaine (Lidocaine 4 % Patch Adh..Patch) 1 patch TRANSDERMA Q24H [facility] Last Admin: 04/22/23 09:28 Dose: 1 patch Documented By: MOR Lisinopril (Lisinopril 40 Mg Tablet) 40 mg PO DAILY [facility]; Protocol Last Admin: 04/22/23 09:23 Dose: 40 mg Documented By: MOR Methadone HCl (Methadone Hcl 20 Mg/2 Ml Oral.Conc) 85 mg PO DAILY [facility] Last Admin: 04/22/23 09:24 Dose: 85 mg Documented By: MOR Methylprednisolone Sodium Succinate (Methylprednisolone Sod Succ 40 Mg/Ml Vial) 40 mg IVPUSH DAILY [facility] Last Admin: 04/22/23 09:23 Dose: 40 mg Documented By: MOR Omeprazole (Omeprazole 20 Mg Capsule.Dr) 20 mg PO DAILY@1200 [facility] Last Admin: 04/22/23 11:57 Dose: 20 mg Documented By: MOR Perphenazine (Perphenazine 4 Mg Tablet) 4 mg PO BEDTIME [facility] Sertraline HCl (Sertraline Hcl 25 Mg Tablet) 25 mg PO DAILY@0900 [facility] Last Admin: 04/22/23 09:23 Dose: 25 mg Documented By: MOR Sertraline HCl (Sertraline Hcl 100 Mg Tablet) 100 mg PO DAILY [facility] Last Admin: 04/22/23 09:23 Dose: 100 mg Documented By: MOR Simethicone (Simethicone 80 Mg Tab.Chew) 160 mg PO BID [facility] Labs 04/21/23 04:54 04/21/23 00:27 Microbiology Microbiology Results: Microbiology 04/20/23 15:36 Blood Culture - Preliminary Blood - Venous No growth after 24 hours. 04/20/23 15:28 Blood Culture - Preliminary Blood - Venous No growth after 24 hours. Assessment and Plan (1) COPD (chronic obstructive pulmonary disease): Status: Acute Plan 57-year-old lady with underlying history of COPD 4 L of supplemental oxygen, hepatitis-C, hypertension, hypothyroidism, hyperlipidemia, substance abuse, now on methadone admitted on 04/20/2023 to intensive care unit with shortness of breath and hypercapnic respiratory failure requiring BiPAP support. Patient was treated with systemic glucocorticoids, nebulized bronchodilators, and acetazolamide with significant improvement. Titrated off BiPAP overnight Acute on chronic respiratory failure likely secondary to COPD exacerbation( on home oxygen 4 liter in day,5-6 liter at night as per patient) : need bipap in ICu,covid negative sob seems similar to yesterday , require 8 liter oxygen continue nebs ,steriods ,levaquin,taper oxygen Hyperlipidemia: continue statin. Hypothyroid: continue levothyroxine. HTN (hypertension):bp stable. continue lisinopril ,amlodipine dvt prophyalx:s/c lovenox ongoing hospitlisation need : Acute on chronic respiratory failure likely secondary to COPD exacerbation-requiring need bipap in ICu and has higher oxygen needs as well as needs iv antibiotics ,steriods . Quality Stroke Does the patient have a stroke diagnosis?: No VTE Prior VTE?: No VTE Risk Level:: Medical - moderate - high VTE Device Contraindication: N/A - Device Ordered VTE Drug Contraindication: N/A - Med Ordered
[2023-04-22] MEDS: Famotidine 20 MG TABLET 40 MG PO (23:04)
[2023-04-22] MEDS: Enoxaparin Sodium 40 MG/0.4 ML SYRINGE SUBCUT (23:05)
[2023-04-22] MEDS: levoFLOXacin 500 MG TABLET PO (23:05)
[2023-04-22] MEDS: Perphenazine 4 MG TABLET PO (23:05)
[2023-04-22] MEDS: Simethicone 80 MG TAB.CHEW 160 MG PO (23:05)
[2023-04-23 04:00] VITALS: BP 140/88; PULSE 86; RESP 18; TEMP 36.2; O2SAT 94
[2023-04-23] MEDS: guaiFENesin 200 MG/10 ML 10 ML LIQUID PO (04:34)
[2023-04-23] MEDS: Levothyroxine Sodium 200 MCG TABLET PO (04:34)
[2023-04-23 06:00] VITALS: BMI 25.4
[2023-04-23 08:00] VITALS: BP 138/80; PULSE 81; RESP 20; TEMP 36.6; O2SAT 94
[2023-04-23 09:04] VITALS: PULSE 80; RESP 18; O2SAT 92
[2023-04-23] MEDS: Albuterol/Iprat 2.5/0.5MG 3 ML AMPUL.NEB INHALE ×2 (09:04→12:03)
[2023-04-23] MEDS: methylPREDNISolone Sod Succ 40 MG/ML VIAL IVPUSH (09:45)
[2023-04-23] MEDS: Levothyroxine Sodium 25 MCG TABLET PO (09:45)
[2023-04-23] MEDS: methADONE HCl 20 MG/2 ML ORAL.CONC 85 MG PO (09:45)
[2023-04-23] MEDS: Simethicone 80 MG TAB.CHEW 160 MG PO (09:45)
[2023-04-23] MEDS: Atorvastatin Calcium 80 MG TABLET PO (09:45)
[2023-04-23] MEDS: Lidocaine 4 % Patch ADH..PATCH 1 PATCH TRANSDERMA ×2 (09:45)
[2023-04-23] MEDS: Sertraline HCL 100 MG TABLET PO (09:45)
[2023-04-23] MEDS: Sertraline HCL 25 MG TABLET PO (09:45)
[2023-04-23] MEDS: lisinopriL 40 MG TABLET PO (09:45)
[2023-04-23] MEDS: amLODIPine Besylate 10 MG TABLET PO (09:45)
--- NOTE | 2023-04-23 10:12 | P.DS_ITS ---
DS: Providers Provider Date of Service: 04/23/23 Date of admission: 04/20/23 19:41 Date of discharge: 04/23/23 Primary care physician: Cathleen Sears MD Attending physician on discharge: Jaydon Rodriguez Discharging clinician: Jaydon Rodriguez DS: Diagnosis Discharge Diagnosis (1) COPD (chronic obstructive pulmonary disease): Status: Acute DS: Summary Hospital Course Hospital Course: 57-year-old female with a past medical history of COPD on home 02 4L,? hepatitis C, hypertension, hypothyroidism, hyperlipidemia,? IV drug abuse,? who presented to the emergency? department with dyspnea.? Patient presented to the emergency department with difficulty breathing and low oxygenation in the 80s on her baseline 4L. Patient reports? not feeling well in the past 2 days,? reports cough and greenish sputum.? ?Laboratory data was significant for WBC 11.6,? hemoglobin of 17.1,? chloride 91, serum bicarb 35 and? ABGs:? 7.31/69/59/35 Chest Xray:? with pulmonary congestion and some signs of possible aspiration pneumonia on right lower lobe ?ED course:? ?Patient received albuterol, methylprednisolone 125, medium 2 g, ceftriaxone 1 g, azithromycin and 500 mg.? Patient was placed on BiPAP? ?Patient be admitted to the ICU for? acute? hypercapnic and hypoxic respiratory failure requiring BiPAP. Hospital course: Patient was admitted with acute hypoxemic, hypercarbic respiratory failure sec ondary to COPD exacerbation-started on IV steroids, antibiotics, also requiring BiPAP in ICU: Subsequently patient's seems to be improved significantly and now patient is at her baseline oxygen demand. She overall feeling much better. Going home with p.o. steroids and antibiotics( for possible pneumonitis ) plan: Complete the course Levaquin 500 mg p.o. daily for 5 days, prednisone 40 mg da rebecca for 4 days. repeat chest imaging in 3-4 weeks . Assessment and plan coordination time spent 50 minute. Patient understand and in agreement with the above plan. Time Attestation Discharge coordination time: Greater than 30 minutes Quality: Safe Use of Opioids Does Pt have an Active Cancer Diagnosis on the Problem List?: No Quality: Stroke Does the patient have a stroke diagnosis?: No Physical Exam Vital Signs: Vital Signs: Last Vital Signs Temp 97.9 F 04/23/23 08:00 Pulse 80 04/23/23 09:04 Resp 18 04/23/23 09:04 BP 138/80 04/23/23 08:00 Pulse Ox 94 04/23/23 08:00 O2 Del Method Nasal Cannula 04/23/23 08:00 O2 Flow Rate 5 04/23/23 08:00 FiO2 60 04/21/23 05:00 Oxygen Flow Rate 6 04/20/23 14:35 BMI result Body Mass Index 25.4 Appearance: Alert.? Oriented X3.? not in distress.? cvs: rrr, [id number] . res: air entry fair ,no rales or wheezing abd: no rebound or guarding ,nt, bs present. ext pulses present , no cyanosis. neuro: axo3 , nonfocal. DS: Data Data Completed and Pending Labs on day of discharge: Preliminary micro results at discharge 04/20/23 15:36 Blood Culture - Preliminary Blood - Venous No growth after 48 hours. 04/20/23 15:28 Blood Culture - Preliminary Blood - Venous No growth after 48 hours. Imaging Chest x-ray: Radiologist's impression: ITS Impressions Chest X-Ray 04/20/23 17:43 IMPRESSION: Increased central bronchovascular markings questionable for airways disease versus mild pulmonary edema. Atelectasis or small infiltrates at the lung bases. Discharge Plan Discharge Anticipated Discharge Date/Time: 04/23/23 10:03 Patient Disposition: Home Health Service Discharge Diagnosis: acute hypo Referrals: Cathleen Sears MD [Primary Care Provider] - 1 Week Discharge Medications: New prednisone 20 mg tablet 40 mg PO DAILY Qty: 8 0RF levofloxacin 500 mg Tablet 500 mg PO Q24H Qty: 5 0RF Continued albuterol sulfate [ProAir HFA] 90 mcg/actuation Hfa Aerosol Inhaler 2 puff INHALATION Q4-6H PRN (Reason: Shortness Of Breath Or Wheezing) lisinopril 40 mg Tablet 40 mg PO DAILY rosuvastatin 20 mg Tablet 20 mg PO DAILY ipratropium-albuterol 0.5 mg-3 mg(2.5 mg base)/3 mL solution for nebulization 3 ml inhalation QID PRN (Reason: wheezing) sertraline 100 mg Tablet 100 mg PO DAILY hydroxyzine pamoate 50 mg capsule 50 mg PO BID PRN (Reason: Itching) pantoprazole 40 mg tablet,delayed release (DR/EC) 40 mg PO DAILY@1200 lidocaine 5 % adhesive patch,medicated 1 patch topical Q24H PRN (Reason: Pain) fluticasone propion-salmeterol [Advair Diskus] 500-50 mcg/dose blister with device 1 ea INHALATION BID omega-3 acid ethyl esters 1 gram capsule 1 cap PO BID@1200,1800 methadone 10 mg/mL Concentrate 85 mg PO DAILY perphenazine 4 mg tablet 4 mg PO BEDTIME sertraline 25 mg tablet 25 mg PO QAM Incruse Ellipta 62.5 mcg/actuation blister with device 1 inh inhalation DAILY levothyroxine 200 mcg tablet 200 mcg PO QAM amlodipine 10 mg tablet 10 mg PO DAILY simethicone 180 mg capsule 180 mg PO BID 30 Days Qty: 60 6RF Rx Instructions: after meals famotidine [Pepcid] 40 mg tablet 40 mg PO BEDTIME Qty: 30 6RF Changed levothyroxine 25 mcg Tablet 25 mcg PO DAILY Qty: 30 0RF Discharge Orders: Discharge Order (Routine); Ordered 04/23/23 Ordered By: Jaydon Rodriguez Diet: Advance to usual diet Activity on Discharge: As tolerated Stand Alone Forms: Patient Portal Discharge page Care Plan Goals: Patient was admitted with acute hypoxemic, hypercarbic respiratory failure secondary to COPD exacerbation-started on IV steroids, antibiotics, also requiring BiPAP in ICU: Subsequently patient's seems to be improved significantly and now patient is at her baseline oxygen demand. She overall feeling much better. Going home with p.o. steroids and antibiotics( for possible pneumonitis ) Complete the course Levaquin 500 mg p.o. daily for 5 days, prednisone 40 mg daily for 4 days. repeat chest imaging in 3-4 weeks . Health Concerns: As above. Plan of Treatment: As above. Assessment: As above.
--- NOTE | 2023-04-23 10:28 | MHC.CM.PN ---
PT TO DC HOME TODAY WITH RESUMPTION OF [employer] [facility] [employer] [facility] CM CALLED PTS VISITING NURSE, RICA [phone] AND INFORMED HIM OF PENDING DC HE CONFIRMS THEY WILL RESUME SERVICES TOMORROW DCS SENT TO [facility]
[2023-04-23] MEDS: Omeprazole 20 MG CAPSULE.DR PO (11:22)
[2023-04-23 12:05] VITALS: PULSE 88; RESP 17; O2SAT 91
== END 2023-04-23 13:34 | disposition home health service (06) | DRG 140 ==
LOC: HO.ED 19:29 → HO.EDOVER 19:46 → HO.ICU 20:45 → HO.IMC 04-21 15:15
PROVIDERS: Internal Medicine Pulmonary Disease; Admitting Provider Registered Nurse Community Health; Emergency Provider Emergency Medicine; PCP Family Medicine; Visit Provider Internal Medicine
DX: J43.9 Emphysema, unspecified (principal); J96.21 Acute and chronic respiratory failure with hypoxia; J18.9 Pneumonia, unspecified organism; J96.22 Acute and chronic respiratory failure with hypercapnia; K70.30 Alcoholic cirrhosis of liver without ascites; E03.9 Hypothyroidism, unspecified; B19.20 Unspecified viral hepatitis C without hepatic coma; E78.5 Hyperlipidemia, unspecified; I10 Essential (primary) hypertension; F17.210 Nicotine dependence, cigarettes, uncomplicated; Z71.6 Tobacco abuse counseling; Z99.81 Dependence on supplemental oxygen; F11.20 Opioid dependence, uncomplicated; Z79.51 Long term (current) use of inhaled steroids; Z79.890 Hormone replacement therapy; Z79.899 Other long term (current) drug therapy
CPT/HCPCS: 36415; 71045; 80053; 80307; 82803; 83605; 83735; 83880; 84100; 84439; 84443; 84484; 85025; 87040; 87502; 87635; 93005; 93306; 93356; 94640; 94660; 99285; C1758; J0456; J0696; J1120; J1650; J1956; J2920; J2930; J3475

== ENCOUNTER → 2023-04-20 14:43 | Outpatient (BNV) | payer MEDICAID, SELFPAY | PROVIDERS: Admitting Provider Registered Nurse Community Health; Emergency Provider Emergency Medicine; PCP Family Medicine; Visit Provider Internal Medicine Cardiovascular Disease | DX: R06.02 Shortness of breath (principal) | CPT/HCPCS: 93010 ==

== ENCOUNTER 2023-04-20 19:41 | Outpatient (BNV) | payer MEDICAID, SELFPAY | END 2023-04-21 07:00 | PROVIDERS: Admitting Provider Registered Nurse Community Health; Emergency Provider Emergency Medicine; PCP Family Medicine; Visit Provider Internal Medicine Cardiovascular Disease | DX: J96.01 Acute respiratory failure with hypoxia (principal); J96.02 Acute respiratory failure with hypercapnia | CPT/HCPCS: 93306 ==

== ENCOUNTER → 2023-04-20 19:41 | Outpatient (BNV) | payer MEDICAID, SELFPAY | PROVIDERS: Admitting Provider Registered Nurse Community Health; Emergency Provider Emergency Medicine; PCP Family Medicine; Visit Provider Internal Medicine | DX: J96.01 Acute respiratory failure with hypoxia (principal); J44.1 Chronic obstructive pulmonary disease with (acute) exacerbation | CPT/HCPCS: 99232; 99239; 99499 ==

== ENCOUNTER → 2023-04-20 19:41 | Outpatient (BNV) | payer MEDICAID, SELFPAY | PROVIDERS: Admitting Provider Registered Nurse Community Health; Emergency Provider Emergency Medicine; PCP Family Medicine; Visit Provider Registered Nurse Community Health | DX: J44.1 Chronic obstructive pulmonary disease with (acute) exacerbation (principal); J96.01 Acute respiratory failure with hypoxia; J96.02 Acute respiratory failure with hypercapnia; J18.9 Pneumonia, unspecified organism | CPT/HCPCS: 99291 ==

== ENCOUNTER → 2023-04-20 19:41 | Outpatient (BNV) | payer MEDICAID, SELFPAY | PROVIDERS: Admitting Provider Registered Nurse Community Health; Emergency Provider Emergency Medicine; PCP Family Medicine; Visit Provider Internal Medicine Pulmonary Disease | DX: J96.01 Acute respiratory failure with hypoxia (principal); J96.02 Acute respiratory failure with hypercapnia; K70.30 Alcoholic cirrhosis of liver without ascites; B19.20 Unspecified viral hepatitis C without hepatic coma; J44.9 Chronic obstructive pulmonary disease, unspecified; F11.20 Opioid dependence, uncomplicated | CPT/HCPCS: 99232 ==

== ENCOUNTER 2023-05-12 11:01 | Outpatient (REF) | payer MEDICAID, SELFPAY ==
[2023-05-12 13:06] LABS: MANUAL DIFF FLAG NO
[2023-05-12 13:29] LABS: Basophils Percent Auto 0.5 % (0-2); Eosinophils Absolute Auto 0.2 X10*3/uL (0.0-0.4); Eosinophils Percent Auto 3.1 % (0-4); Hemoglobin 18.1 g/dl (12.0-16.0); Imm Gran Abs Auto 0.01 X10*3/uL (0.00-0.03); Imm Gran Pct Auto 0.2 % (0.0-0.4); Lymphocytes Absolute Auto 2.2 X10*3/uL (1.2-4.9); Lymphocytes Percent Auto 37.2 % (20-40); Mean Corpuscular HGB Conc 31.5 g/dl (31.0-35.0); Mean Corpuscular Hemoglobin 30.7 pg (27.0-33.0); Mean Corpuscular Volume 97.3 fL (80.0-98.0); Mean Platelet Volume 11.1 fL (9.4-12.3); Monocytes Absolute Auto 0.5 X10*3/uL (0.1-1.2); Monocytes Percent Auto 8.4 % (2-11); Neutrophils Absolute Auto 2.9 x10*3/uL (2.0-8.3); Neutrophils Percent Auto 50.6 % (45-73); Platelet Count 150 X10*3/uL (160-400); Red Cell Distribution Width 16.4 % (11.0-16.0); White Blood Count 5.8 X10*3/uL (4.8-10.8)
[2023-05-12 13:30] LABS: Hematocrit 57.4 % (37.0-47.0)
[2023-05-12 13:52] LABS: Alanine Aminotransferase 26 U/L (0-31); Alkaline Phosphatase 180 U/L (39-117); Anion Gap 12 (12-20); Aspartate Amino Transferase 26 U/L (5-31); Bilirubin Direct 0.2 mg/dL (0.0-0.5); Bilirubin Total 0.6 mg/dL (0.0-1.0); Blood Urea Nitrogen 7 mg/dL (9-16); C Reactive Protein 0.31 mg/dL (< or = 0.50); Calcium 9.6 mg/dL (8.4-10.2); Carbon Dioxide 36 mmol/L (22-29); Chloride 99 mmol/L (96-108); Estimated Glomerular Filt Rate > 60; Glucose Random 106 mg/dL (60-115); Potassium 4.2 mmol/L (3.3-5.1); Sodium 143 mmol/L (135-145)
[2023-05-12 13:57] LABS: Free T4 (Free Thyroxine) 1.28 ng/dL (0.71-1.85); Thyroid Stimulating Hormone 3.29 uIU/mL (0.32-4.0)
[2023-05-13 04:18] LABS: HIV AB/AG Nonreactive (Nonreactive); HIV Num 1 0.12 S/CO (0.00-0.99)
[2023-05-14 20:48] LABS: TS Negative Control Passed; TS Panel A 1; TS Panel B 2; TS Positive Control Passed; TSpotTB Negative (Negative)
== END 2023-05-12 11:02 | disposition home or self-care (01) ==
LOC: HO.HHCL 11:01
PROVIDERS: Visit Provider Family Medicine
DX: E03.8 Other specified hypothyroidism (principal); E06.3 Autoimmune thyroiditis; R61 Generalized hyperhidrosis
CPT/HCPCS: 36415; 80048; 80076; 84439; 84443; 85025; 86140; 86481; 87389

== ENCOUNTER 2023-06-14 14:52 | Outpatient (REF) | payer MEDICAID, SELFPAY ==
--- NOTE | ~2023-06-14 | XR_ITS ---
EXAMINATION: XR HIP, LEFT CLINICAL INFORMATION: 3 weeks of severe left lateral hip pain, no history of trauma. COMPARISON: None available. TECHNIQUE: 2 views of the left hip. FINDINGS: Degenerative changes on limited views of the bilateral sacroiliac joints with joint space narrowing and sclerosis. Left hip alignment preserved. Mild degenerative changes in the left hip with joint space narrowing and hypertrophic change. No displaced left hip fracture appreciated. CT scan recommended for further evaluation if there is clinical concern for fracture or other underlying pathology. XR/XR hip LT min 2V IMPRESSION: 1. Mild degenerative changes in the left hip. 2. Degenerative changes on limited views of the bilateral sacroiliac joints. 3. CT scan recommended for further evaluation if there is clinical concern for fracture or other underlying pathology.
== END 2023-06-14 14:53 | disposition home or self-care (01) ==
LOC: HO.HHCX 14:52
PROVIDERS: Visit Provider Internal Medicine Geriatric Medicine
DX: M25.552 Pain in left hip (principal)
CPT/HCPCS: 73502

== ENCOUNTER 2023-06-22 12:36 | Outpatient (AMB) | payer MEDICAID, SELFPAY ==
--- NOTE | 2023-06-22 12:38 | MHC.OFFVIS ---
Intake Vital Signs 06/22/23 12:42 Height 5 ft 5 in Weight 151 lb BMI 25.1 BP 121/72 Blood Pressure Location Lt brachial Position Sitting Pulse 72 Pulse Source Pulse Oximeter Pulse Oximetry (%) 94 Oxygen Delivery Method Room Air Intake Visit Reasons: Abdominal pain Information Interpreted: non-clinical & clinical Accompanied by: Nephew or Niece Allergies Penicillins [PENICILLINS] Allergy (Unknown, Verified 06/22/23 12:46) RED ITCHY RASH SEAFOOD Allergy (Unknown, Uncoded 06/22/23 12:46) FEVER SWELLING HPI Abdominal pain HPI Details Assessment & Plan (1) Alcoholic cirrhosis: ?Comment: BASELINE LABS 03/11/2012 Plt Count 105 L Hemoglobin A1c Total Bilirubin 0.9 Direct Bilirubin 0.4 AST 46 H ALT 25 Alkaline Phosphatase 118 H Hemoglobin A1c 6.4 Free T4 0.44 L TSH 3rd Generation 48.28 H Ethyl Alcohol < 10 10/22/19 Hep Bs Antigen NEGATIVE Hep C Viral Load <15, <1.18 HIV 1&2 Antigen & Ab NONREACTIVE CURRENT LABS * ULTRASOUND OF THE ABDOMEN? 10/28/20 IMPRESSION: There is generalized increase in hepatic echotexture, consistent with fatty infiltration or hepatocellular disease. Please correlate clinically. Provided history of cirrhosis noted. No focal hepatic mass or intrahepatic biliary dilatation is seen. ?Code(s): K70.30 - Alcoholic cirrhosis of liver without ascites ?Plan: Mexican #[employer] She has been lost to follow up since 08/2021. She says she is not drinking ETOH I hold off because of all of? my medicines. She says she has not wanted to leave her house when it is too hot or too rainy and this gets in the way of her appts. she is on oxygen portable still at 4L-6L n/c. She does not know the names of her medicines, but she says that only certain foods like sauces and iced tea cause her HB.? In the past she was maintained on famotidine and simethicone successfully.? She is not complaining of the symptoms so I soon she still on the medications. She is due for more labs and US for her liver and she is agreeable. ROV 6 weeks. (2) Nausea and vomiting: ?Code(s): R11.2 - Nausea with vomiting, unspecified (3) GERD (gastroesophageal reflux disease): ?Code(s): K21.9 - Gastro-esophageal reflux disease without esophagitis (4) Diarrhea: ?Code(s): R19.7 - Diarrhea, unspecified (5) Abdominal bloating: ?Code(s): R14.0 - Abdominal distension (gaseous) ? ? ? Orders: Orders Alpha FetoproteinB 10/01/22 K70.30 - Alcoholic cirrhosis of live r without ascites ? Ammonia 10/01/22 K70.30 - Alcoholic cirrhosis of live r without ascites ? Comprehensive Met. Panel 10/01/22 K70.30 - Alcoholic cirrhosis of live r without ascites ? Ferritin 10/01/22 K70.30 - Alcoholic cirrhosis of live r without ascites ? Gamma Glutamyl Tra nspeptidase 10/01/22 K70.30 - Alcoholic cirrhosis of live r without ascites ? Complete Blood Cou nt Auto Diff 10/01/22 K70.30 - Alcoholic cirrhosis of live r without ascites ? US abdomen comp w elastography 10/01/22 K70.30 - Alcoholic cirrhosis of live r without ascites ? Medications: Refilled simethicone ?? aft er meals 180 mg PO BID 60 c aps 6RF 30 days R14.0 - Abdominal distension (gaseou s) ? famotidine (Pepcid ) 40 mg PO BEDTIME 3 0 tabs 6RF K21.9 - Gastro-eso phageal reflux dis ease without esoph agitis ? LABS: Laboratory Tests 09/24/21 05/12/23 15:12 11:06 WBC 5.3 Hgb 19.0 H Hct 59.1 H MCV 98.3 H MCH 31.6 Plt Count 101 L 150 L Estimated GFR 58 Total Bilirubin 0.6 Direct Bilirubin 0.2 AST 26 ALT 26 Alkaline Phosphata se 180 H TSH 3.29 Free T4 1.28 ULTRASOUND OF THE ABDOMEN WITH ELASTOGRAPHY Not yet obtained TODAY'S VISIT Mexican # PULLEY WORKER/niece translates per patient request She has had NO ETOH for 2 mos and her PULLEY WORKER/niece is watching her closely. However, not all of the labs I ordered were obtained nor was the US. She will go for the remaining labs today and I will re order the US. I encouraged her that her liver will recover quickly if she can avoid alcohol and it does appear that she has improved in her transaminases when compared to her 2019 values. She continues on her famotidine and simethicone with good control of her GI conditions. Rov 6 mos. [facility] Medical History Acute respiratory failure, unspecified whether with hypoxia or hypercapnia Hyperlipidemia Psychosis Hypoxia Acute exacerbation of chronic obstructive airways disease Hepatitis C HTN (hypertension) Hypothyroid COPD (chronic obstructive pulmonary disease) Family History Father HTN (hypertension) Mother Gastritis Ovarian cancer Arthritis Son Thyroid disease Other Hypothyroid Social History Household Members: Significant Other Housing: Apartment Do you presently have visiting nurse or other home services: Yes (nurse and PULLEY WORKER) Alcohol intake: current Alcohol intake frequency: does not drink Patient Tobacco Use Status: Current everyday Tobacco user Tobacco use type: Cigarette Cigarette Packs Per Day: 1 Cigarettes Per Day: 20.0 e-Cigarette/Vaping Use: Never Used Second Hand Smoke Exposure: No Substance Use Type: Heroin service: No Current occupational status: unemployed Review of Systems Const Denies fatigue, Denies fever(s), Denies night sweats, Denies poor appetite and Denies weight loss ENT Reports Normal hearing present, Denies dental pain, Denies dysphagia, Denies hearing loss, Denies mouth pain, Denies odynophagia, Denies throat swelling, Denies tongue swelling and Reports other (Dentition adequate) Card Reports no additional complaints and Reports dyspnea on exertion Resp Reports dyspnea on exertion GI Details: Denies abdominal pain, Denies melena, Reports bloating, Denies hematochezia, Denies constipation, Denies GI cramping, Denies dysphagia, Denies excessive flatus, Denies early satiety, Reports heartburn, Denies diarrhea, Denies nausea, Denies odynophagia, Denies vomiting and Denies hematemesis Skin/Breast Denies pruritus, Denies lesions, Denies rash and Denies jaundice Neuro Reports Normal hearing present and Denies Abnormal speech present Endo Denies fatigue Aller/Immun Denies throat swelling and Denies tongue swelling Physical Exam Vital Signs: Last Vital Signs Pulse 72 06/22/23 12:42 BP 121/72 06/22/23 12:42 Pulse Ox 94 06/22/23 12:42 Oxygen Delivery Method Room Air 06/22/23 12:42 BMI result Body Mass Index 25.1 Const General: cooperative, no acute distress, well developed and well groomed Nutritional Appearance: average body habitus and well nourished Orientation/consciousness: oriented to person, oriented to place and oriented to time Limitations: language barrier and other limitations HEENT Head: Yes normocephalic and Yes atraumatic Eyes General: appearance normal, both eyes and all related structures Pupils: Equal, round and reactive pupils present Neck Neck: Yes normal visual inspection and Yes no lymphadenopathy Thyroid: Thyroid normal Resp Other: on oxygen n/c 4 L Effort & Inspection: normal respiratory effort and able to speak in complete sentences Auscultation: clear to auscultation bilaterally Cardio Rate: regular rate Rhythm: regular rhythm Heart sounds: Normal, physiologic split S2 sound present Peripheral pulses: radial pulses present and posterior tibial pulses present GI Inspection: No distended, No Abdominal panniculus present and Yes obesity Palpation (GI): Soft to palpation, nontender, no guarding, not rigid and No hepatosplenomegaly present Percussion: Yes normal to percussion Auscultation: normal bowel sounds Rectal Exam - Female: deferred Skin General skin exam: no rashes or lesions noted, turgor normal, skin not dry, no jaundice, No spider nevi and no striae Rashes: no rashes Nails: normal Neuro General: oriented to person, oriented to place and oriented to time Cranial nerves: Yes Equal, round and reactive pupils present and Yes Normal hearing present Speech: No Abnormal speech present Extrem General: Yes normal to inspection, No clubbing, No cyanosis and No edema Psych Appearance: grossly normal and well kempt Mental Status: mental status grossly normal Speech and movement: Normal speech and movement present Affect: normal affect Attitude: cooperative Thought process: Normal thought process present and not confabulating Thought content: Normal thought content present Insight: Poor insight present (Psych) Judgement: Poor judgement present (Psych) Assessment & Plan Assessment & Plan (1) GERD (gastroesophageal reflux disease): Code(s): K21.9 - Gastro-esophageal reflux disease without esophagitis (2) Abdominal bloating: Code(s): R14.0 - Abdominal distension (gaseous) (3) Alcoholic cirrhosis: Code(s): K70.30 - Alcoholic cirrhosis of liver without ascites Plan Mexican # PULLEY WORKER/niece translates per patient request She has had NO ETOH for 2 mos and her PULLEY WORKER/niece is watching her closely. However, not all of the labs I ordered were obtained nor was the US. She will go for the remaining labs today and I will re order the US. I encouraged her that her liver will recover quickly if she can avoid alcohol and it does appear that she has improved in her transaminases when compared to her 2019 values. She continues on her famotidine and simethicone with good control of her GI conditions. Rov 6 mos. Medications: New pantoprazole 40 mg PO DAILY@1200 30 tabs 6RF Refilled simethicone after meals 180 mg PO BID 30 days 60 caps 6RF R14.0 - Abdominal distension (gaseous) famotidine (Pepcid) 40 mg PO BEDTIME 30 tabs 6RF K21.9 - Gastro-esophageal reflux disease without esophagitis Coding Level of Care Code Est Pt Level 3 (58033) Diagnoses GERD (gastroesophageal reflux disease) K21.9 Abdominal bloating R14.0 Alcoholic cirrhosis K70.30
[2023-06-22 12:42] VITALS: BP 121/72; PULSE 72; O2SAT 94; BMI 25.1
== END 2023-06-22 13:13 | disposition home or self-care (01) ==
PROVIDERS: PCP Family Medicine; Visit Provider Nurse Practitioner
DX: K21.9 Gastro-esophageal reflux disease without esophagitis (principal); R14.0 Abdominal distension (gaseous); K70.30 Alcoholic cirrhosis of liver without ascites
CPT/HCPCS: 99213

== ENCOUNTER 2023-06-22 12:36 | Outpatient (REF) | payer MEDICAID, SELFPAY ==
[2023-06-22 13:36] LABS: MANUAL DIFF FLAG NO
[2023-06-22 13:52] LABS: Ammonia 39 umol/L (13-55)
[2023-06-22 14:22] LABS: Basophils Percent Auto 0.3 % (0-2); Eosinophils Absolute Auto 0.2 X10*3/uL (0.0-0.4); Eosinophils Percent Auto 2.8 % (0-4); Hematocrit 53.8 % (37.0-47.0); Hemoglobin 16.6 g/dl (12.0-16.0); Imm Gran Abs Auto 0.01 X10*3/uL (0.00-0.03); Imm Gran Pct Auto 0.1 % (0.0-0.4); Lymphocytes Absolute Auto 2.2 X10*3/uL (1.2-4.9); Lymphocytes Percent Auto 32.7 % (20-40); Mean Corpuscular HGB Conc 30.9 g/dl (31.0-35.0); Mean Corpuscular Hemoglobin 28.5 pg (27.0-33.0); Mean Corpuscular Volume 92.4 fL (80.0-98.0); Mean Platelet Volume 10.8 fL (9.4-12.3); Monocytes Absolute Auto 0.7 X10*3/uL (0.1-1.2); Monocytes Percent Auto 10.6 % (2-11); Neutrophils Absolute Auto 3.6 x10*3/uL (2.0-8.3); Neutrophils Percent Auto 53.5 % (45-73); Platelet Count 147 X10*3/uL (160-400); Red Blood Count 5.82 X10*6/uL (4.20-5.50); White Blood Count 6.8 X10*3/uL (4.8-10.8)
[2023-06-22 14:47] LABS: Alanine Aminotransferase 9 U/L (0-31); Albumin Level 3.8 g/dL (3.5-5.0); Alkaline Phosphatase 119 U/L (39-117); Anion Gap 8 (12-20); Aspartate Amino Transferase 14 U/L (5-31); Bilirubin Total 0.6 mg/dL (0.0-1.0); Blood Urea Nitrogen 8 mg/dL (9-16); Calcium 9.1 mg/dL (8.4-10.2); Carbon Dioxide 38 mmol/L (22-29); Chloride 100 mmol/L (96-108); Estimated Glomerular Filt Rate > 60; Gamma Glutamyl Transpeptidase 122 U/L (7-33); Glucose Random 69 mg/dL (60-115); Potassium 4.1 mmol/L (3.3-5.1); Sodium 142 mmol/L (135-145); Total Protein 7.5 g/dL (6.5-8.0)
[2023-06-22 14:54] LABS: Ferritin 26 ng/mL (10-250)
[2023-06-23 12:53] LABS: Alpha Fetoprotein 1.5 ng/mL
== END 2023-06-22 12:37 | disposition home or self-care (01) ==
LOC: HO.LAB 12:36
PROVIDERS: PCP Family Medicine; Visit Provider Nurse Practitioner
DX: K70.30 Alcoholic cirrhosis of liver without ascites (principal); K21.9 Gastro-esophageal reflux disease without esophagitis; R14.0 Abdominal distension (gaseous); Z99.81 Dependence on supplemental oxygen
CPT/HCPCS: 36415; 80053; 82105; 82140; 82728; 82977; 85025; 99212

== ENCOUNTER 2023-06-30 17:14 | Inpatient (IN) | payer MEDICAID, SELFPAY ==
[2023-06-30] VITALS (15 sets, daily range): BP systolic 91–180; BP diastolic 59–124; PULSE 72–110; RESP 12–30; TEMP 33–37.2; O2SAT 85–96; BMI 33.1
--- NOTE | ~2023-06-30 | XR_ITS ---
EXAMINATION: XR CHEST CLINICAL INFORMATION: Shortness of breath. COMPARISON: Chest x-ray April 20, 2023 TECHNIQUE: Frontal portable view of the chest was obtained. 6:16 PM FINDINGS: Persistent mild to moderate central pulmonary vascular congestion unchanged since chest x-ray April 20, 2023. Density at both lung bases could be due to patchy airspace disease versus crowding the bronchovascular markings. Persistent slight blunting left costophrenic angle probably due to a small pleural effusion. No significant right pleural effusion. XR/XR chest 1V IMPRESSION: Persistent mild to moderate central pulmonary vascular congestion unchanged since chest x-ray April 20, 2023.
--- NOTE | ~2023-06-30 | CT_ITS ---
EXAMINATION: CT HEAD WITHOUT CONTRAST CLINICAL INFORMATION: Altered mental status. COMPARISON: None available. TECHNIQUE: Contiguous axial imaging was performed from the skull base to vertex without intravenous administration of contrast. This CT examination was performed using dose optimization techniques as appropriate, variously including the following: *Automated exposure control *Adjustment of mA and/or kV according to patient size (this includes techniques or standardized protocols for targeted exams where dose is matched to indication/reason for exam; i.e. extremities or head) *Use of iterative reconstruction technique DLP: 652 mGy-cm FINDINGS: The lateral, third and fourth ventricles are normally outlined. The cortical sulci and basal cisterns are normally outlined as well. There is no acute territorial defect, hemorrhage or midline shift. The extra-axial spaces are unremarkable. Calvarium: Intact. Maxillofacial sinuses and mastoids: Clear as visualized. There appears to be a partially healed nasal bone fracture. CT/CT head/brain wo IV con IMPRESSION: No acute intracranial pathology. Nasal bone fracture appears to be partially healed. Correlation needed.
--- NOTE | ~2023-06-30 | CT_ITS ---
EXAMINATION: CT CHEST WITHOUT CONTRAST CLINICAL INFORMATION: Altered mental status. Dyspnea. Respiratory failure. COMPARISON: 04/10/2019. TECHNIQUE: Multidetector volumetric CT imaging of the chest was done. Axial MIP volume rendering provided. Sagittal and coronal reformatted images were obtained. This CT examination was performed using dose optimization techniques as appropriate, variously including the following: *Automated exposure control *Adjustment of mA and/or kV according to patient size (this includes techniques or standardized protocols for targeted exams where dose is matched to indication/reason for exam; i.e. extremities or head) *Use of iterative reconstruction technique DLP: 375 mGy-cm FINDINGS: ARCHIVAL STUDIES PROFESSOR: Patient is intubated. There is bibasilar consolidation greater on the left LUNGS: There is an endotracheal tube in good position above the jeffry. There is diffuse emphysematous change. There is left lung base consolidation with air bronchogram formation. There is similar patchy consolidation right lower lung field associated with a small right pleural effusion. MEDIASTINUM: There is mild shift of the midline to the left. The heart is at the upper limits of normal for size. There is no pericardial effusion. There is no significant lymph node enlargement. CORONARY ARTERY CALCIFICATION: None visualized on this study. PLEURA: There is a small right pleural effusion. AXILLA: No lymphadenopathy. UPPER ABDOMEN: Unremarkable. OSSEOUS STRUCTURES: Unremarkable. CT/CT chest wo IV con IMPRESSION: 1. Bilateral lower lobe consolidation, left greater than right. There is a small right pleural effusion. Suspect a combination of atelectasis and pneumonia. 2. Endotracheal tube in good position above the jeffry. 3. Emphysema. Fleischner guidelines were followed.
--- NOTE | ~2023-06-30 | US_ITS ---
EXAMINATION: US VENOUS ULTRASOUND WITH DOPPLER LOWER EXTREMITY, BILATERAL CLINICAL INFORMATION: Bilateral leg swelling. COMPARISON: None available. TECHNIQUE: Ultrasound of the deep veins is performed from the hip to the calf with compression sonography and color and pulse Doppler assessment. Spectral analysis with color-flow imaging is performed. FINDINGS: RIGHT: There is normal venous compression and respiratory variation and augmented flow. The visualized common femoral vein, superficial femoral vein, profunda femoral vein, popliteal vein, and the trifurcation region shows no evidence of deep venous thrombosis. There is small Delvalle's cyst with septation measuring 4.5 x 2.0 x 2.4 cm . LEFT: There is normal venous compression and respiratory variation and augmented flow. The visualized common femoral vein, superficial femoral vein, profunda femoral vein, popliteal vein, and the trifurcation region shows no evidence of deep venous thrombosis. There is no significant popliteal fossa cyst. If the patient's symptoms persist, followup ultrasound in 5 days 7 days might be of value to exclude proximal propagation from a non-visualized calf vein. US/US venous duplex LE BI IMPRESSION: No DVT demonstrated in bilateral lower extremity.
--- NOTE | ~2023-06-30 | XR_ITS ---
EXAMINATION: XR CHEST CLINICAL INFORMATION: Respiratory failure. Status post intubation. COMPARISON: Previous of the same day. TECHNIQUE: Frontal view of the chest was obtained. FINDINGS: The cardiomediastinal silhouette is stable. There is an endotracheal tube in good position above the jeffry. There is stable bibasilar lung opacity/consolidation. The bony structures and soft tissues are unremarkable XR/XR chest 1V IMPRESSION: 1. Endotracheal tube in good position above the jeffry. 2. Stable bibasilar lung opacities/consolidation.
--- NOTE | ~2023-06-30 | XR_ITS ---
EXAMINATION: XR CHEST CLINICAL INFORMATION: Central line placement. COMPARISON: Previous of the same day. TECHNIQUE: Frontal view of the chest was obtained. FINDINGS: The cardiomediastinal silhouette is stable. There is an endotracheal tube in good position above the jeffry. A gastric tube extends below the diaphragm into left upper quadrant. There has been interval placement of a left approach central line with tip at the level of the mid SVC. Bibasilar lung consolidation is again seen. No pneumothorax identified. The bony structures and soft tissues are unremarkable XR/XR chest 1V IMPRESSION: 1. Interval placement of left approach central line with tip at the level of the mid SVC. No pneumothorax. 2. No change in bibasilar lung consolidation.
--- NOTE | 2023-06-30 17:23 | ECG_ITS ---
Test Reason : SOB Blood Pressure : / mmHG Vent. Rate : 086 BPM Atrial Rate : 086 BPM P-R Int : 146 ms QRS Dur : 090 ms QT Int : 394 ms P-R-T Axes : 072 -74 043 degrees QTc Int : 471 ms Poor data quality Normal sinus rhythm with sinus arrhythmia Left axis deviation Minimal voltage criteria for LVH, may be normal variant ( Luke product ) Abnormal ECG When compared with ECG of 20-APR-2023 14:54, No significant changes seen Referred By: Chris Andrews Electronically Signed By:SEBASTIAN [facility] MD
[2023-06-30] MEDS: Albuterol Sulfate 5 MG, Albuterol/Iprat 2.5/0.5MG 3 ML 3 ML INHALE (17:56)
--- NOTE | 2023-06-30 18:18 | ED_ITS ---
HPI - General Adult General Chief complaint: Dyspnea Stated complaint: SOB x1 week, edema in lower extremity Time Seen by Provider: 06/30/23 17:18 Source: patient Mode of arrival: ambulatory Limitations: no limitations History of Present Illness HPI narrative: 57-year-old female history of asthma COPD substance abuse of heroine and opoinds, presents to ED for right leg lower extremity edema, shortness of breath, coughing, body aches, and chills for 1 week. Patient denies any chest pain. EMS STATES PATIENT ON 4 LITERS AT HER HOUSE WAS 70%. Related Data Home Medications ?Medication ?Instructions ?Recorded ?Confirmed albuterol sulfate 90 mcg/actuation 2 puff inhalation Q6H PRN 03/11/20 07/01/23 aerosol inhaler (ProAir HFA) Shortness Of Breath Or Wheezing lisinopril 40 mg tablet 40 mg PO DAILY 03/11/20 07/01/23 rosuvastatin 20 mg tablet 20 mg PO DAILY 03/11/20 07/01/23 perphenazine 4 mg tablet 4 mg PO BEDTIME 09/24/21 07/01/23 amlodipine 10 mg tablet 10 mg PO DAILY 10/01/22 07/01/23 levothyroxine 200 mcg tablet 200 mcg PO DAILY 10/01/22 07/01/23 sertraline 25 mg tablet 25 mg PO DAILY@0910/01/22 07/01/23 umeclidinium 62.5 mcg/actuation 1 inh inhalation DAILY 10/01/22 07/01/23 blister powder for inhalation (Incruse Ellipta) fluticasone 500 mcg-salmeterol 50 1 ea inhalation BID 04/20/23 07/01/23 mcg/dose blistr powdr for inhalation (Advair Diskus) hydroxyzine pamoate 50 mg capsule 50 mg PO BID PRN Itching 04/20/23 07/01/23 ipratropium 0.5 mg-albuterol 3 mg 3 ml inhalation QID PRN wheezing 04/20/23 07/01/23 (2.5 mg base)/3 mL nebulization soln omega-3 acid ethyl esters 1 gram 1 cap PO BID@1200,1800 04/20/23 07/01/23 capsule sertraline 100 mg tablet 100 mg PO DAILY@0900 04/20/23 07/01/23 methadone 10 mg/mL oral concentrate 85 mg PO DAILY 04/21/23 07/01/23 docusate sodium 100 mg capsule 100 mg PO BID constipation 07/01/23 07/01/23 metformin 500 mg tablet,extended 500 mg PO DAILY@1800 07/01/23 07/01/23 release 24 hr nicotine (polacrilex) 2 mg gum 2 mg PO Q2H PRN Smoking Cessation 07/01/23 07/01/23 olmesartan 40 mg tablet 40 mg PO DAILY@1200 07/01/23 07/01/23 sennosides 8.6 mg tablet (senna) 17.2 mg PO BEDTIME PRN constipation 07/01/23 07/01/23 Previous Rx's ?Medication ?Instructions ?Recorded levothyroxine 25 mcg tablet 25 mcg PO DAILY #30 tabs 04/23/23 famotidine 40 mg tablet (Pepcid) 40 mg PO BEDTIME #30 tabs 06/22/23 pantoprazole 40 mg tablet,delayed 40 mg PO DAILY@1200 #30 tabs 06/22/23 release simethicone 180 mg capsule 180 mg PO BID 30 days #60 caps 06/22/23 Allergies Allergy/AdvReac Type Severity Reaction Status Date / Time Penicillins [PENICILLINS] Allergy Unknown RED ITCHY Verified 06/30/23 17:45 RASH SEAFOOD Allergy Unknown FEVER Uncoded 06/22/23 12:46 SWELLING Review of Systems 2 Review of Systems: Shortness of breath, coughing, right leg swelling for 1 week. Yes all other systems are reviewed and are negative [facility] Past Medical History Medical History Acute respiratory failure, unspecified whether with hypoxia or hypercapnia Hyperlipidemia Psychosis Hypoxia Acute exacerbation of chronic obstructive airways disease Hepatitis C HTN (hypertension) Hypothyroid COPD (chronic obstructive pulmonary disease) Family History Family History Father HTN (hypertension) Mother Gastritis Ovarian cancer Arthritis Son Thyroid disease Other Hypothyroid Social History Social History Household Members: Unknown / Unable to assess Housing: Unknown / Unable to assess Alcohol intake: current Alcohol intake frequency: does not drink Patient Tobacco Use Status: Tobacco use Unknown Tobacco use type: Cigarette Cigarette Packs Per Day: 1 Cigarettes Per Day: 20.0 Smoked in Last 30 Days: Yes e-Cigarette/Vaping Use: Never Used Second Hand Smoke Exposure: No Use of substances other than those prescribed or required for medical reasons: Unable to respond Substance Use Type: Heroin Currently Displaying Signs/Symptoms of Drug Intoxication Withdrawal: No Advance Directives: No Advance Directives Information Provided: No Recently lost weight without trying: Unsure Nutrition Risks: No Nutritional Risk Patient : No : No Poor oral hygiene: Yes service: No Current occupational status: unemployed Physical Exam ED Vital Signs: Vital Signs - 24 hr 06/30/23 17:38 06/30/23 17:57 06/30/23 18:03 Temperature 98.3 F Pulse Rate 88 89 Respiratory Rate 22 H 12 14 Blood Pressure 131/75 Pulse Oximetry 92 Oxygen Delivery Method Non-Rebreather Mask Oxygen Flow Rate Fraction of Inspired Oxygen 06/30/23 19:06 06/30/23 19:11 06/30/23 19:20 Temperature 98.9 F Pulse Rate 92 Respiratory Rate 19 14 Blood Pressure 91/61 123/71 Pulse Oximetry 93 Oxygen Delivery Method BiPAP Oxygen Flow Rate 60 Fraction of Inspired Oxygen 06/30/23 20:37 06/30/23 21:16 06/30/23 21:30 Temperature 98.0 F Pulse Rate 110 H 99 Respiratory Rate 30 H 20 20 Blood Pressure 180/124 H 171/92 H Pulse Oximetry 92 87 L Oxygen Delivery Method Nasal Cannula High Flow Nasal Cannula Oxygen Flow Rate 13 40 Fraction of Inspired Oxygen 75 06/30/23 21:37 06/30/23 22:40 06/30/23 23:11 Temperature 98.6 F Pulse Rate 94 85 100 Respiratory Rate 21 H 15 Blood Pressure 121/61 Pulse Oximetry 96 92 Oxygen Delivery Method High Flow Nasal Cannula High Flow Nasal Cannula Oxygen Flow Rate 40 40 Fraction of Inspired Oxygen 85 72 06/30/23 23:18 06/30/23 23:30 Temperature Pulse Rate 98 Respiratory Rate 19 Blood Pressure 145/100 H Pulse Oximetry 94 Oxygen Delivery Method Mechanical Ventilation Oxygen Flow Rate Fraction of Inspired Oxygen 40 40 BMI result Body Mass Index 33.1 Const General: cooperative, healthy appearing, comfortable, no acute distress, well developed, alert, awake and Physically active Orientation/consciousness: oriented to person, oriented to place, oriented to time and patient oriented x3 HENMT Head: Yes normal to inspection, Yes No palpable skull fracture present, Yes normocephalic, Yes atraumatic and No abrasion Eyes General: appearance normal, both eyes and all related structures Neck Neck: Yes normal visual inspection, Yes full ROM, Yes no lymphadenopathy, Yes no meningeal signs, Yes trachea midline, Yes supple, No anterior neck swelling and No tender Chest Chest palpation & inspection: normal inspection of the chest and normal palpation of entire chest wall Resp Effort & Inspection: normal respiratory effort and able to speak in complete sentences Auscultation: diminished lung sounds Cardio Jugular venous distension: no JVD Heart sounds: S1 normal heart sound present and S2 normal heart sound present GI Inspection: Yes normal to inspection Palpation (GI): Soft to palpation, not firm, nontender, no guarding and not rigid General: No CVA tenderness and Yes no CVA tenderness Back/Spine/Pelvis Back: no CVA tenderness, No CVA tenderness and No back tenderness Skin General skin exam: no rashes or lesions noted, elasticity normal and turgor normal Neuro General: oriented to person, oriented to place, oriented to time, patient oriented x3, gait normal, tone normal, moves all extremities, Normal light touch and pain sensation, no meningeal signs, no focal motor deficits, CN's II-XI intact bilaterally and normal sensation to monofilament Extrem Other: Positive for right leg swelling only with pitting edema. Psych Appearance: grossly normal, well kempt and not disheveled Medications Administered Generic Name Dose Route Start Last Admin Trade Name Freq PRN Reason Stop Dose Admin Acetazolamide 250 mg 07/01/23 09:00 07/02/23 20:37 Acetazolamide Sodium 500 Mg Vial IVPUSH 250 mg BID MAYRA Administration Albuterol/Ipratropium 3 ml 07/01/23 11:55 07/02/23 19:55 Albuterol/Iprat 2.5/0.5mg 3 Ml Ampul.Neb INHALE 3 ml RQ6H WHILE AWAKE MAYRA Administration Docusate Sodium 100 mg 07/02/23 21:00 07/02/23 20:38 Docusate Sodium 100 Mg Capsule PO 100 mg BID MAYRA Administration Enoxaparin Sodium 40 mg 07/01/23 09:00 07/02/23 08:47 Enoxaparin Sodium 40 Mg/0.4 Ml Syringe SUBCUT 40 mg Q24H MAYRA Administration Levofloxacin 750 mg in 150 mls @ 100 mls/hr 07/01/23 08:30 07/02/23 09:52 Levaquin IV Infused Q24H MAYRA Infusion Insulin Human Lispro 0 unit 07/02/23 11:30 07/02/23 20:38 Insulin Lispro 100 Unit/Ml 3 Ml Vial SUBCUT 2 unit QIDACHS [facility] Administration Protocol Methadone HCl 85 mg 07/02/23 15:15 07/02/23 15:25 Methadone Hcl 20 Mg/2 Ml Oral.Conc PO 85 mg DAILY MAYRA Administration Perphenazine 4 mg 07/02/23 21:00 07/02/23 20:38 Perphenazine 4 Mg Tablet PO 4 mg BEDTIME MAYRA Administration Discontinued Medications Generic Name Dose Route Start Last Admin Trade Name Freq PRN Reason Stop Dose Admin Chlorhexidine Gluconate 15 ml 07/01/23 15:00 07/02/23 08:41 Chlorhexidine Gluc Oral Rinse 15 Ml Mouthwash BUCCAL Not Given TID MAYRA Albuterol Sulfate 5 mg/ 0 mg 06/30/23 17:34 06/30/23 17:56 Albuterol/Ipratropium 3 ml INHALE 06/30/23 17:35 3 each ONCE ONE Administration Etomidate 20 mg 06/30/23 22:56 06/30/23 23:07 Etomidate 20 Mg/10 Ml Vial IVPUSH 06/30/23 22:57 20 mg NOW STA Administration Famotidine 20 mg 07/01/23 09:00 07/02/23 08:47 Famotidine/Pf 20 Mg/2 Ml Vial IVPUSH 20 mg DAILY MAYRA Administration Furosemide 20 mg 07/01/23 10:18 07/01/23 10:24 Furosemide 20 Mg/2 Ml Vial IVPUSH 07/01/23 10:19 20 mg ONCE ONE Administration Protocol Furosemide 20 mg 07/02/23 09:14 07/02/23 09:33 Furosemide 20 Mg/2 Ml Vial IVPUSH 07/02/23 09:15 20 mg ONCE ONE Administration Protocol Hydromorphone HCl 1 mg 07/01/23 01:28 07/01/23 01:55 Hydromorphone Hcl 1 Mg/Ml Syringe IVPUSH 07/01/23 01:29 1 mg ONCE ONE Administration Protocol Hydromorphone HCl 1 mg 07/01/23 03:02 07/01/23 02:07 Hydromorphone Hcl 1 Mg/Ml Syringe IVPUSH 07/01/23 03:03 1 mg ONCE ONE Administration Protocol Magnesium Sulfate 2 gm in 50 mls @ 25 mls/hr 06/30/23 17:25 06/30/23 20:30 Magnesium Sulfate/H2o IV 06/30/23 19:24 Infused ONCE ONE Infusion Ceftriaxone Sodium 1 gm/ 50 mls @ 100 mls/hr 06/30/23 18:35 06/30/23 19:41 Sodium Chloride IV 06/30/23 19:04 Infused ONCE ONE Infusion Azithromycin 500 mg/ Sodium 250 mls @ 125 mls/hr 06/30/23 18:35 06/30/23 23:32 Chloride IV 06/30/23 20:34 Infused ONCE ONE Infusion Sodium Chloride 1,000 mls @ 999 mls/hr 06/30/23 18:51 06/30/23 23:32 Ns IV 06/30/23 19:51 Infused .Q1H1M STA Infusion Propofol 1,000 mg in 100 mls @ 0 mls/hr 06/30/23 23:00 07/01/23 15:00 Diprivan IVCONT Infused .Q0M MAYRA Titration Protocol Per Protocol Lactated Ringer's 1,000 mls @ 150 mls/hr 07/01/23 01:30 07/01/23 08:39 Lr IVCONT Infused .Q6H40M MAYRA Infusion Dexmedetomidine HCl 400 mcg in 100 mls @ 0 mls/hr 07/01/23 01:30 07/01/23 03:12 Precedex IVCONT Infused .Q0M MAYRA Titration Protocol Per Protocol Lactated Ringer's 1,000 mls @ 999 mls/hr 07/01/23 03:15 07/01/23 04:13 Lr IV 07/01/23 04:15 Infused .Q1H1M MAYRA Infusion Albumin Human 100 mls @ 100 mls/hr 07/01/23 08:00 07/01/23 09:50 Kedbumin 25 % IV 07/01/23 09:59 Infused Q1H MAYRA Infusion Methylprednisolone Sodium Succinate 125 mg 06/30/23 17:25 06/30/23 18:26 Methylprednisolone Sod Succ 125 Mg/2 Ml Vial IVPUSH 06/30/23 17:26 125 mg ONCE ONE Administration Methylprednisolone Sodium Succinate 60 mg 07/01/23 01:30 07/01/23 07:43 Methylprednisolone Sod Succ 125 Mg/2 Ml Vial IVPUSH 60 mg Q6H MAYRA Administration Naloxone HCl 0.2 mg 06/30/23 20:12 06/30/23 20:29 Naloxone Hcl 0.4 Mg/Ml Vial IVPUSH 06/30/23 20:13 0.2 mg STAT STA Administration Ondansetron HCl 4 mg 06/30/23 20:22 06/30/23 20:30 Ondansetron Hcl 4 Mg/2 Ml Vial IVPUSH 06/30/23 20:23 4 mg ONCE ONE Administration Potassium Chloride 40 meq 07/02/23 06:07 07/02/23 06:35 Potassium Chloride Packet 20 Meq Packet PO 07/02/23 06:08 40 meq ONCE ONE Administration Potassium Phos/Sodium Phos 2 packet 07/02/23 06:07 07/02/23 06:35 Sodium,Potassium Phosphates Powd.Pack PO 07/02/23 06:08 2 packet ONCE ONE Administration Rocuronium Philpot 100 mg 06/30/23 22:56 06/30/23 23:07 Rocuronium Philpot 50 Mg/5 Ml Vial IVPUSH 06/30/23 22:57 100 mg ONCE ONE Administration Medical Decision Making Medical Decision Making MDM Narrative: 57 year old female presents denies asthma COPD exacerbation. As per EMS patient's oxygen dependent 4-6 L WAS 70 ON 4-6LITERS. In the ED patient is talking and maintaining O2 saturation 75% on 4-6LITERS. Patient immediately given albuterol Solu-Medrol magnesium. IV ultrasound had to be placed. Patient placed on CPAP. VBG ordered. Antibiotics ordered. Chest x-ray ordered. Ultrasound lower extremity ordered. Patient is talking and laughing with staff and wathcing television. 7:30pm: Patient is sleepy. Bicarb not high enough for patient to be sleepy. PH is normal. VBG done twice. Ed exam negative for signs of trauma. Patient does have history of substance abuse is on methadone. SUSPECTING PATIENT USED SOME NARCOTICS. We will give Narcan. And no improvement will do head CT scan. 8:48pm: Patient given Narcan and awoke immedIATELY. Patient placed oxygen 13 L O2 saturation DUE TO DESATURATION TO 75%. OXYGEN WENT UP TO 88 percent. Patient placed on oxygen nasal canuli due to narcan reaction( emesis, pain, being agitatED AND NOT BEING ABLE TO HANDLE CPAP MASK). Baseline is 4-6 L oxygen. Discuss[address] with Dr. Camarena hospitalist who states patient will need to go back on CPAP and be admitted to ICU IF NO IMPROVEMENT. ONLY WILL EXCEPT PATIENT IF SHE IS OFF CPAP AND IS ON OXYGEN. 21:00; Dr. Momin recommends patient to be placed on high-flow oxygen FOR A TRIAL and then re-evaluate. 22:58: Patient is sleepy. Repeat ABG showed CO2 of 112. Patient intbuated by Me with Dr. Sin Supervision. Head CT chest CT ordered RECOMMEND BY [facility] ICU. CASE PRESENTED TO DR. JOHNSON FOR ADMISSION Differential Diagnosis Differential Diagnoses: The differential diagnosis associated with the presentation includes (CO2 retention, COPD exacerbation, pneumonia,) Admission/Observation Consideration of admission/observation: Escalation of care including admission/observation considered Lab Data MDM Lab Attestation statement: I reviewed the patient's lab results. 07/02/23 05:12 07/02/23 05:12 Labs: Lab Results 06/30/23 06/30/23 06/30/23 Range/Units 18:15 18:16 18:20 WBC 7.3 (4.8-10.8) X10*3/uL RBC 6.16 H (4.20-5.50) X10*6/uL Hgb 17.1 H (12.0-16.0) g/dl Hct 56.9 H (37.0-47.0) % MCV 92.4 (80.0-98.0) fL MCH 27.8 (27.0-33.0) pg MCHC 30.1 L (31.0-35.0) g/dl RDW 16.8 H (11.0-16.0) % Plt Count 102 L D (160-400) X10*3/uL MPV 11.5 (9.4-12.3) fL Immature Gran % (Auto) 0.3 (0.0-0.4) % Neut % (Auto) 50.7 (45-73) % Lymph % (Auto) 37.0 (20-40) % Crook % (Auto) 8.3 (2-11) % Eos % (Auto) 3.0 (0-4) % Baso % (Auto) 0.7 (0-2) % Lymph # (Auto) 2.7 (1.2-4.9) X10*3/uL Crook # (Auto) 0.6 (0.1-1.2) X10*3/uL Eos # (Auto) 0.2 (0.0-0.4) X10*3/uL Baso # (Auto) 0.1 (0.0-0.2) X10*3/uL Abs Immat Gran (auto) 0.02 (0.00-0.03) X10*3/uL Absolute Neuts (auto) 3.7 (2.0-8.3) x10*3/uL Absolute Nucleated RBC 0.000 (0.0-0.012) X10*3/uL Nucleated RBC % (auto) 0.0 (0.0-0.2) /100WBC PT 10.7 L (11.1-13.3) SEC INR 0.9 (0.9-1.1) APTT 33.8 (26.0-36.8) SEC O2 Saturation % ABG pH at Pt Temp (7.35-7.45) ABG pCO2 at Pt Temp (32-45) mmHg ABG pO2 at Pt Temp (83-108) mmHg ABG HCO3 (22-26) mmol/L ABG Base Excess (Actual) mmol/L VBG pH 7.35 (7.32-7.43) VBG pCO2 76 mmHg VBG pO2 62 mmHg VBG HCO3 42 H (22-26) mmol/L VBG O2 Saturation 91.0 % VBG Base Excess 11.7 mmol/L Sodium 141 (135-145) mmol/L Potassium 4.2 (3.3-5.1) mmol/L Chloride 94 L (96-108) mmol/L Carbon Dioxide 43 H* (22-29) mmol/L Anion Gap 8 L (12-20) BUN 12 (9-16) mg/dL Creatinine 0.64 (0.5-1.4) mg/dL Estim Creat Clear Calc 89.8 Estimated GFR > 60 Random Glucose 116 H (60-115) mg/dL Lactic Acid 0.8 (0.5-2.0) mmol/L Calcium 9.6 (8.4-10.2) mg/dL Total Bilirubin 0.7 (0.0-1.0) mg/dL AST 19 (5-31) U/L ALT 11 (0-31) U/L Alkaline Phosphatase 122 H (39-117) U/L Troponin I High Sens < 2.7 (<3.5-17.0) ng/L B-Natriuretic Peptide 38 (<100) pg/mL Total Protein 7.9 (6.5-8.0) g/dL Albumin 3.8 (3.5-5.0) g/dL Urine Color Urine Appearance Urine pH (5.0-9.0) Ur Specific Bartow (1.005-1.025) Urine Protein (Neg-Trace) mg/dL Urine Glucose (UA) (Negative) mg/dL Urine Ketones (Negative) mg/dL Urine Blood (Negative) Urine Nitrite (Negative) Ur Leukocyte Esterase (Negative) Urine RBC (0-2) /HPF Urine WBC (0-5) /HPF Ur Squamous Epith Cells (0-2) /HPF Urine Bacteria (None Seen) Hyaline Casts (0-2) /LPF Urine Opiates Screen (Not Detect) Urine Fentanyl Screen (Not Detect) Ur Barbiturates Screen (Not Detect) Ur Phencyclidine Scrn (Not Detect) Ur Amphetamines Screen (Not Detect) U Benzodiazepines Scrn (Not Detect) Urine Cocaine Screen (Not Detect) U Marijuana (THC) Screen (Not Detect) Ethyl Alcohol mg/dL Influenza Type A (PCR) NEGATIVE (Negative) Influenza Type B (PCR) NEGATIVE (Negative) RSV RNA Qual (PCR) NEGATIVE (Negative) SARS-CoV-2 RNA (RT-PCR) NEGATIVE (Negative) 06/30/23 06/30/23 06/30/23 Range/Units 19:39 22:42 23:35 WBC (4.8-10.8) X10*3/uL RBC (4.20-5.50) X10*6/uL Hgb (12.0-16.0) g/dl Hct (37.0-47.0) % MCV (80.0-98.0) fL MCH (27.0-33.0) pg MCHC (31.0-35.0) g/dl RDW (11.0-16.0) % Plt Count (160-400) X10*3/uL MPV (9.4-12.3) fL Immature Gran % (Auto) (0.0-0.4) % Neut % (Auto) (45-73) % Lymph % (Auto) (20-40) % Crook % (Auto) (2-11) % Eos % (Auto) (0-4) % Baso % (Auto) (0-2) % Lymph # (Auto) (1.2-4.9) X10*3/uL Crook # (Auto) (0.1-1.2) X10*3/uL Eos # (Auto) (0.0-0.4) X10*3/uL Baso # (Auto) (0.0-0.2) X10*3/uL Abs Immat Gran (auto) (0.00-0.03) X10*3/uL Absolute Neuts (auto) (2.0-8.3) x10*3/uL Absolute Nucleated RBC (0.0-0.012) X10*3/uL Nucleated RBC % (auto) (0.0-0.2) /100WBC PT (11.1-13.3) SEC INR (0.9-1.1) APTT (26.0-36.8) SEC O2 Saturation 95.0 % ABG pH at Pt Temp 7.16 L* (7.35-7.45) ABG pCO2 at Pt Temp 112 H* (32-45) mmHg ABG pO2 at Pt Temp 83 (83-108) mmHg ABG HCO3 40 H (22-26) mmol/L ABG Base Excess (Actual) 5.9 mmol/L VBG pH 7.35 (7.32-7.43) VBG pCO2 73 mmHg VBG pO2 81 mmHg VBG HCO3 41 H (22-26) mmol/L VBG O2 Saturation 97.0 % VBG Base Excess 11.3 mmol/L Sodium (135-145) mmol/L Potassium (3.3-5.1) mmol/L Chloride (96-108) mmol/L Carbon Dioxide (22-29) mmol/L Anion Gap (12-20) BUN (9-16) mg/dL Creatinine (0.5-1.4) mg/dL Estim Creat Clear Calc Estimated GFR Random Glucose (60-115) mg/dL Lactic Acid (0.5-2.0) mmol/L Calcium (8.4-10.2) mg/dL Total Bilirubin (0.0-1.0) mg/dL AST (5-31) U/L ALT (0-31) U/L Alkaline Phosphatase (39-117) U/L Troponin I High Sens (<3.5-17.0) ng/L B-Natriuretic Peptide (<100) pg/mL Total Protein (6.5-8.0) g/dL Albumin (3.5-5.0) g/dL Urine Color Yellow Urine Appearance Clear Urine pH 7.0 (5.0-9.0) Ur Specific Bartow 1.010 (1.005-1.025) Urine Protein 30 (1+) H (Neg-Trace) mg/dL Urine Glucose (UA) Negative (Negative) mg/dL Urine Ketones Negative (Negative) mg/dL Urine Blood Large (3+) H (Negative) Urine Nitrite Negative (Negative) Ur Leukocyte Esterase Negative (Negative) Urine RBC 3-5 H (0-2) /HPF Urine WBC 0-5 (0-5) /HPF Ur Squamous Epith Cells 0-2 (0-2) /HPF Urine Bacteria None Seen (None Seen) Hyaline Casts 3-5 (0-2) /LPF Urine Opiates Screen Not Detected (Not Detect) Urine Fentanyl Screen Not Detected (Not Detect) Ur Barbiturates Screen Not Detected (Not Detect) Ur Phencyclidine Scrn Not Detected (Not Detect) Ur Amphetamines Screen Not Detected (Not Detect) U Benzodiazepines Scrn Not Detected (Not Detect) Urine Cocaine Screen Not Detected (Not Detect) U Marijuana (THC) Screen Not Detected (Not Detect) Ethyl Alcohol < 10 mg/dL Influenza Type A (PCR) (Negative) Influenza Type B (PCR) (Negative) RSV RNA Qual (PCR) (Negative) SARS-CoV-2 RNA (RT-PCR) (Negative) Independent Interpretation I performed an independent interpretation of an: EKG (Normal sinus rhythm. Negative STEM), Plain X-Ray and CT Scan Radiology Impression Discussion of test interpretation with radiology: I have reviewed the radiologist's reading. Independent Historian Clinical information obtained from an independent historian. History obtained from or confirmed by: EMS and Other (PATIENT) External Record Review External record reviewed: Other (PRIOR VISITS) Critical Care Time Critical Care Time Critical Care Time: Yes Total Critical Care Time: 60 Attestation: 70% on room air history of asthma COPD. Patient placed on CPAP. Albuterol magnesium Solu-Medrol ordered. Antibiotics ordered. IV ultrasound placed. VBG ordered. Antibiotics ordered 22:58: Patient intubated by me with Dr. Sin Supervision. 23:00Pm: Case admitted to Dr. Johnson of ICU. Patient PA Christo Discharge Plan Discharge Clinical Impression: Acute exacerbation of chronic obstructive airways disease, Community acquired pneumonia Patient Disposition: Admitted As Inpatient Interventions: Admission Worksheet (ED) Last Done: 07/01/23 00:46 Discharge Date/Time: 07/01/23 00:50
[2023-06-30 18:21] LABS: MANUAL DIFF FLAG NO
[2023-06-30] MEDS: Magnesium Sulfate/H2O 2 GM/50 ML PIGGYBACK IV (18:26)
[2023-06-30] MEDS: methylPREDNISolone Sod Succ 125 MG/2 ML VIAL IVPUSH (18:26)
[2023-06-30 18:28] LABS: VBG Base Excess 11.7 mmol/L; VBG HCO3 42 mmol/L (22-26); VBG pCO2 76 mmHg; VBG pH 7.35 (7.32-7.43); VBG pO2 62 mmHg
[2023-06-30 18:29] LABS: INTERNATIONAL NORM RATIO 0.9 (0.9-1.1); Prothrombin Time 10.7 SEC (11.1-13.3)
[2023-06-30 18:31] LABS: Basophils Absolute Auto 0.1 X10*3/uL (0.0-0.2); Basophils Percent Auto 0.7 % (0-2); Eosinophils Absolute Auto 0.2 X10*3/uL (0.0-0.4); Hemoglobin 17.1 g/dl (12.0-16.0); Imm Gran Abs Auto 0.02 X10*3/uL (0.00-0.03); Imm Gran Pct Auto 0.3 % (0.0-0.4); Lymphocytes Absolute Auto 2.7 X10*3/uL (1.2-4.9); Mean Corpuscular HGB Conc 30.1 g/dl (31.0-35.0); Mean Corpuscular Hemoglobin 27.8 pg (27.0-33.0); Mean Corpuscular Volume 92.4 fL (80.0-98.0); Mean Platelet Volume 11.5 fL (9.4-12.3); Monocytes Absolute Auto 0.6 X10*3/uL (0.1-1.2); Monocytes Percent Auto 8.3 % (2-11); Neutrophils Absolute Auto 3.7 x10*3/uL (2.0-8.3); Neutrophils Percent Auto 50.7 % (45-73); Partial Thromboplastin Time 33.8 SEC (26.0-36.8); Platelet Count 102 X10*3/uL (160-400); Red Blood Count 6.16 X10*6/uL (4.20-5.50); Red Cell Distribution Width 16.8 % (11.0-16.0); White Blood Count 7.3 X10*3/uL (4.8-10.8)
[2023-06-30 18:32] LABS: Hematocrit 56.9 % (37.0-47.0)
[2023-06-30 18:33] LABS: Venous Blood Gas Refer to POC result
[2023-06-30 18:38] LABS: Lactic Acid 0.8 mmol/L (0.5-2.0)
[2023-06-30 18:42] LABS: B Type Natriuretic Peptide 38 pg/mL (<100)
[2023-06-30 18:46] LABS: Troponin-I High Sensitivity < 2.7 ng/L (<3.5-17.0)
[2023-06-30 18:47] LABS: Alanine Aminotransferase 11 U/L (0-31); Albumin Level 3.8 g/dL (3.5-5.0); Alkaline Phosphatase 122 U/L (39-117); Anion Gap 8 (12-20); Aspartate Amino Transferase 19 U/L (5-31); Bilirubin Total 0.7 mg/dL (0.0-1.0); Blood Urea Nitrogen 12 mg/dL (9-16); Calcium 9.6 mg/dL (8.4-10.2); Carbon Dioxide 43 mmol/L (22-29); Chloride 94 mmol/L (96-108); Creatinine Clr Calc Pharmacy 89.8; Estimated Glomerular Filt Rate > 60; Glucose Random 116 mg/dL (60-115); Potassium 4.2 mmol/L (3.3-5.1); Sodium 141 mmol/L (135-145); Total Protein 7.9 g/dL (6.5-8.0)
[2023-06-30] MEDS: cefTRIAXone sodium 1 GM in 0.9 % Sodium Chloride 50 ML IV (18:51)
[2023-06-30] MEDS: 0.9 % Sodium Chloride 1,000 ML 999 ML IV (18:56)
--- NOTE | 2023-06-30 19:09 | PC.NURSE ---
this rn assumed care of pt. pt on BIPAP 60% oxygen, sating 92-94%. pt denies sob with the bipap on. pt normal sinus on tele 85-88bpm. no acute distress noted. pt denies pain. Chris CHUA at bedside.
[2023-06-30 19:11] LABS: Influenza A PCR NEGATIVE (Negative); Influenza B PCR NEGATIVE (Negative); Resp Syncy Virus RNA Qual PCR NEGATIVE (Negative); SARS COV2 PCR INHOUSE NEGATIVE (Negative)
[2023-06-30] MEDS: Azithromycin 500 MG in 0.9 % Sodium Chloride 250 ML 125 MG IV (19:41)
[2023-06-30 19:45] LABS: VBG Base Excess 11.3 mmol/L; VBG HCO3 41 mmol/L (22-26); VBG pCO2 73 mmHg; VBG pH 7.35 (7.32-7.43); VBG pO2 81 mmHg
[2023-06-30 19:46] LABS: Venous Blood Gas Refer to POC result
[2023-06-30 19:57] LABS: Ethanol < 10 mg/dL
[2023-06-30] MEDS: Naloxone HCl 0.4 MG/ML VIAL 0.2 MG IVPUSH (20:29)
[2023-06-30] MEDS: ondansetron HCL 4 MG/2 ML VIAL IVPUSH (20:30)
--- NOTE | 2023-06-30 20:34 | PC.NURSE ---
Addendum entered by Tea Chávez 06/30/23 20:40: provider aware of pt vital signs, Chris CHUA at bedside. Original Note: pt medicated per may, pt alert at this time. respiratory at bedside to attempt to remove pt from bipap, pt on 13L nasal cannula sating 88-89%.
--- NOTE | 2023-06-30 20:52 | PC.NURSE ---
pt visibly agitated at this time, pt on 13L nasal cannula, plan to place pt back on BIPAP once calm.
--- NOTE | 2023-06-30 21:07 | PC.NURSE ---
respiratory at bedside placing pt on highflow nasal cannula.
--- NOTE | 2023-06-30 21:40 | PC.NURSE ---
pt alert at this time, calm and cooperative. pt desat to 96%, respiratory called to bedside, pt sating 96% on 40L 85% o2 high flow.
[2023-06-30 22:51] LABS: ABG Base Excess 5.9 mmol/L; ABG HCO3 40 mmol/L (22-26); ABG pCO2 112 mmHg (32-45); ABG pH 7.16 (7.35-7.45); ABG pO2 83 mmHg (83-108)
[2023-06-30] MEDS: Rocuronium Bromide 50 MG/5 ML VIAL 100 MG IVPUSH (23:07)
[2023-06-30] MEDS: Etomidate 20 MG/10 ML VIAL IVPUSH (23:07)
[2023-06-30] MEDS: propofoL 1,000 MG/100 ML VIAL 13.82 MG IVCONT (23:11)
--- NOTE | 2023-06-30 23:15 | PC.NURSE ---
@23:07 20mg etomidate and 100mg rocuronium administered for intubation ETT 7 23 @lip Pt is 76.8kg bedscale weight, propofol started at 30mcg/kg/min @23:10 HR 103, O2 100% on vent, RR 17, BP 144/102
[2023-06-30 23:39] LABS: ABG Refer to POC result
[2023-06-30 23:43] LABS: Appearance Urine Clear; Color Urine Yellow; Glucose Urine UA Negative (Negative); Leukocyte Esterase Urine Negative (Negative); Nitrite Urine Negative (Negative); UMIC TRIGGER UACC YES; Urine Blood Large (3+) (Negative); Urine Ketones Negative (Negative); Urine Protein 30 (1+) mg/dL (Neg-Trace)
--- NOTE | 2023-06-30 23:45 | PC.NURSE ---
bains placed per provider order, 700ml of dark yellow urine immediately after output.
[2023-06-30 23:49] LABS: Amphetamine Screen Urine Not Detected (Not Detect); Barbiturates, Urine Not Detected (Not Detect); Benzodiazepines Screen Urine Not Detected (Not Detect); Cannabinoid Screen Urine Not Detected (Not Detect); Cocaine Screen Urine Not Detected (Not Detect); Fentanyl, urine Not Detected (Not Detect); Opiate Screen Urine Not Detected (Not Detect); Phencyclidine Screen Urine Not Detected (Not Detect)
--- NOTE | 2023-06-30 23:54 | PM.CCHP ---
History of Present Illness Date of Service: 06/30/23 Attending physician on admission: Miki Johnson Chief Complaint: Hypoxic/hypercapnic respiratory failure; unintentional oxygen poisoning HPI:? Patient with underlying history of COPD, alcoholic cirrhosis, GERD, hepatitis-C (unknown if treated) O2 dependent, mixed asthma disorder, who presented to the emergency room complaints of right lower extremity edema, shortness of breath, coughing body aches for approximately 1 week.? Upon being seen in the emergency room, patient was noted to be hypoxic with an O2 sat 75% on room air.? Initial venous blood gases were evaluated but he was told that she was doing fine, she had been put on nasal cannula and subsequently on CPAP, then venous blood gas repeated and transition to a a Suarez mask at 13 L, the patient continued to worsen and developed significant obtundation, ABG obtained and now the patient shows respiratory acidosis with hypercarbia state with a CO2 concentration of 112.? The patient was emergently intubated by Dr. Sin. Of the laboratories are unremarkable with the exception of hemo concentration, lactic acid 0.8. Transferred to the ICU for further care. While seen in the emergency room, it was eminent that the patient could have aspirated for she has significant amount of secretions and proximally 100 cc of it were suctioned between me and the nurses, her end-tidal CO2 is over 50 and O2 sat 94%, I did adjust the settings of the vent for an FiO2 of 40% and a rate of 28 prior to transferring to ICU I discussed the case with a ER physician assistant in nursing to rule out organic causes of her encephalopathy kindly asked for a CT of the head and the chest. ROS:? UNABLE TO OBTAIN PATIENT INTUBATED Past Medical History:? As above Past Surgical History:? As above Family history:? Unknown Social History: ?History of heroin abuse currently on methadone. CODE STATUS:? Full code Allergies:? Penicillin (erythema and rash), seafood (fever and swelling) Home Medications:? see Med Rec PHYSICAL EXAM: Blood pressure 145/100, heart rate 98, respirations 22, O2 sat 94% while on vent. VENT SETTINGS : AC 28 / 300/ 5 / 40% ? General:? Sedated on a ventilator ? Skin:? Intact, multiple pinpoint lesions consistent with needle poking, right lower extremity anterior tibial slight erythema without had missed to touch. ? HEENT:? Head is normocephalic, atraumatic, pupils pinpointed and nonreactive.? Neck is supple, no JVD or lymphadenopathy, no masses. ? Cardiac:? Clear S1-S2, no murmurs rubs or gallops. ? Pulmonary:? Diminished lung sounds bilaterally with expiratory wheezing right upper lobe coarseness. ? Abdomen:? Protuberant, positive bowel sounds in all 4 quadrants.? Soft ? Musculoskeletal:? No bony abnormalities, on passive range of motion at the major joints there is no cogwheeling or crepitus, no calf asymmetry or edema of the legs.? ? Neurologic:? As above otherwise unable to assess ? Vascular:? 2+ pulses upper and lower extremities distally.? Less than 2nd capillary refill fingers and toes bilaterally upper and lower extremities. SIGNIFICANT LABORATORY DATA: As above REVIEW OF IMAGES: US BILATERAL L EXT IMPRESSION: No DVT demonstrated in bilateral lower extremity. CXR IMPRESSION: Persistent mild to moderate central pulmonary vascular congestion unchanged since chest x-ray April 20, 2023. EKG REVIEW: ?To my view this is sinus rhythm 86 beats per minutes.? There is no ST elevations, no ST depressions, Criteria for left ventricular hypertrophy, left axis deviation.? QTC is 471. ?No comparison available. ASSESSMENT: 1. Acute hypoxic/hypercarbic respiratory failure. 2. Acute respiratory acidosis. 3. Iatrogenic unintentional oxygen poisoning 4. Acute COPD exacerbation with hypercarbic state 5. Metabolic encephalopathy rule out intracranial abnormality 6. Right lower lobe pneumonia likely aspiration 7. History of opiate dependence currently on methadone treatment 8. Clinical dehydration 9. Multiple comorbidities PLAN OF CARE: Patient will be admitted to the ICU, monitor vital signs, I and O's, continue with ventilatory support, I have increased her respiratory rate to 28 as her end-tidal CO2 is over 50, will repeat a gas in a couple hours, goal O2 sat is 88-90%, administer gentle IV fluids, I have advised the ER provider to obtain a head CT to rule out intracranial pathology as a additional cause of her mental status changes.? I have asked Chris to order a CT of the chest without contrast for I do not suspect she could have a PE but certainly I think she presents a quadrant of a bilateral pneumonia rather than pulmonary vascular congestion.. Continue to give her Rocephin and Zithromax. Methadone dose should be confirmed in the morning for it to be continued.? OG tube will be placed while the patient is intubated.? Will continue with propofol sedation. Recheck laboratories and blood gas in the morning.? Will add mag and phos to her current labs. Nurses have been unable to get more IV access, central line will be placed. IV fluids will be given to complete 30 ml/kg even though I believe it is not Sepis but SIRS. GI PROPHYLAXIS: ?IV Pepcid DVT PROPHYLAXIS:? SubQ Lovenox Critical care time used for critical evaluation of this patient, diagnosis, treatment and coordination of care, review her records and documentation TOTAL CRITICAL CARE TIME 90? MIN discussion and coordination with consultants, completely separate from any procedures performed. . Patient's care was discussed in detail with Dr. Johnson.? He is aware of all the above as well as the plan of care for this patient. . Review of Systems Review of Systems: Yes unobtainable due to endotracheal tube PMFSH Past Medical History Medical History Acute respiratory failure, unspecified whether with hypoxia or hypercapnia Hyperlipidemia Psychosis Hypoxia Acute exacerbation of chronic obstructive airways disease Hepatitis C HTN (hypertension) Hypothyroid COPD (chronic obstructive pulmonary disease) Family History Family History Father HTN (hypertension) Mother Gastritis Ovarian cancer Arthritis Son Thyroid disease Other Hypothyroid Social History Social History Household Members: Unknown / Unable to assess Housing: Unknown / Unable to assess Alcohol intake: current Alcohol intake frequency: does not drink Patient Tobacco Use Status: Tobacco use Unknown Tobacco use type: Cigarette Cigarette Packs Per Day: 1 Cigarettes Per Day: 20.0 Smoked in Last 30 Days: Yes e-Cigarette/Vaping Use: Never Used Second Hand Smoke Exposure: No Use of substances other than those prescribed or required for medical reasons: Unable to respond Substance Use Type: Heroin Currently Displaying Signs/Symptoms of Drug Intoxication Withdrawal: No Advance Directives: No Advance Directives Information Provided: No Recently lost weight without trying: Unsure Nutrition Risks: No Nutritional Risk Patient : No : No Poor oral hygiene: Yes service: No Current occupational status: unemployed Meds Allergies Allergy/AdvReac Type Severity Reaction Status Date / Time Penicillins [PENICILLINS] Allergy Unknown RED ITCHY Verified 06/30/23 17:45 RASH SEAFOOD Allergy Unknown FEVER Uncoded 06/22/23 12:46 SWELLING Active Medications: Current Medications Propofol (Diprivan) 1,000 mg in 100 mls @ 0 mls/hr IVCONT .Q0M MAYRA; Protocol Last Admin: 06/30/23 23:11 Dose: 30 mcg/kg/min, 13.82 mls/hr Home Medications ?Medication ?Instructions ?Recorded ?Confirmed ?Last Taken ?Type albuterol sulfate 90 mcg/actuation 2 puff inhalation Q6H PRN 03/11/20 07/01/23 Unknown History aerosol inhaler (ProAir HFA) Shortness Of Breath Or Wheezing lisinopril 40 mg tablet 40 mg PO DAILY 03/11/20 07/01/23 06/30/23 History rosuvastatin 20 mg tablet 20 mg PO DAILY 03/11/20 07/01/23 06/29/23 History perphenazine 4 mg tablet 4 mg PO BEDTIME 09/24/21 07/01/23 06/29/23 History amlodipine 10 mg tablet 10 mg PO DAILY 10/01/22 07/01/23 06/30/23 History levothyroxine 200 mcg tablet 200 mcg PO DAILY 10/01/22 07/01/23 06/30/23 History sertraline 25 mg tablet 25 mg PO DAILY@0900 10/01/22 07/01/23 06/30/23 History umeclidinium 62.5 mcg/actuation 1 inh inhalation DAILY 10/01/22 07/01/23 06/30/23 History blister powder for inhalation (Incruse Ellipta) fluticasone 500 mcg-salmeterol 50 1 ea inhalation BID 04/20/23 07/01/23 06/30/23 History mcg/dose blistr powdr for inhalation (Advair Diskus) hydroxyzine pamoate 50 mg capsule 50 mg PO BID PRN Itching 04/20/23 07/01/23 Unknown History ipratropium 0.5 mg-albuterol 3 mg 3 ml inhalation QID PRN wheezing 04/20/23 07/01/23 Unknown History (2.5 mg base)/3 mL nebulization soln omega-3 acid ethyl esters 1 gram 1 cap PO BID@1200,1800 04/20/23 07/01/2306/29/24 History capsule sertraline 100 mg tablet 100 mg PO DAILY@0900 04/20/23 07/01/23 06/30/23 History methadone 10 mg/mL oral concentrate 85 mg PO DAILY 04/21/23 07/01/23 06/30/23 History docusate sodium 100 mg capsule 100 mg PO BID constipation 07/01/23 07/01/23 06/30/23 History metformin 500 mg tablet,extended 500 mg PO DAILY@1800 07/01/23 07/01/23 06/29/23 History release 24 hr nicotine (polacrilex) 2 mg gum 2 mg PO Q2H PRN Smoking Cessation 07/01/23 07/01/23 Unknown History olmesartan 40 mg tablet 40 mg PO DAILY@1200 07/01/23 07/01/23 06/30/23 History sennosides 8.6 mg tablet (senna) 17.2 mg PO BEDTIME PRN constipation 07/01/23 07/01/23 Unknown History Physical Exam Vital Signs: Vital Signs: Last Vital Signs Temp 98.6 F 06/30/23 22:40 Pulse 98 06/30/23 23:18 Resp 19 06/30/23 23:18 BP 145/100 H 06/30/23 23:18 Pulse Ox 94 06/30/23 23:18 O2 Del Method Mechanical Ventil ation 06/30/23 23:18 O2 Flow Rate 40 06/30/23 22:40 FiO2 40 06/30/23 23:18 BMI result Body Mass Index 33.1 Results Labs 07/01/23 04:49 07/01/23 04:49 Labs: Laboratory Results - last 24 hr 06/30/23 06/30/23 06/30/23 18:15 18:16 18:20 MCV 92.4 MCH 27.8 MCHC 30.1 L RDW 16.8 H Plt Count 102 L D MPV 11.5 Immature Gran % (Auto) 0.3 Neut % (Auto) 50.7 Lymph % (Auto) 37.0 Granite % (Auto) 8.3 Eos % (Auto) 3.0 Baso % (Auto) 0.7 Lymph # (Auto) 2.7 Granite # (Auto) 0.6 Eos # (Auto) 0.2 Baso # (Auto) 0.1 Abs Immat Gran (auto) 0.02 Absolute Neuts (auto) 3.7 Absolute Nucleated RBC 0.000 Nucleated RBC % (auto) 0.0 PT 10.7 L INR 0.9 APTT 33.8 O2 Saturation ABG pH at Pt Temp ABG pCO2 at Pt Temp ABG pO2 at Pt Temp ABG HCO3 ABG Base Excess (Actual) VBG pH 7.35 VBG pCO2 76 VBG pO2 62 VBG HCO3 42 H VBG O2 Saturation 91.0 VBG Base Excess 11.7 Anion Gap 8 L Estim Creat Clear Calc 89.8 Estimated GFR > 60 Random Glucose 116 H Lactic Acid 0.8 Calcium 9.6 Total Bilirubin 0.7 AST 19 ALT 11 Alkaline Phosphatase 122 H Troponin I High Sens < 2.7 B-Natriuretic Peptide 38 Total Protein 7.9 Albumin 3.8 Urine Opiates Screen Urine Fentanyl Screen Ur Barbiturates Screen Ur Phencyclidine Scrn Ur Amphetamines Screen U Benzodiazepines Scrn Urine Cocaine Screen U Marijuana (THC) Screen Ethyl Alcohol Influenza Type A (PCR) NEGATIVE Influenza Type B (PCR) NEGATIVE RSV RNA Qual (PCR) NEGATIVE SARS-CoV-2 RNA (RT-PCR) NEGATIVE 06/30/23 06/30/23 06/30/23 19:39 22:42 23:35 MCV MCH MCHC RDW Plt Count MPV Immature Gran % (Auto) Neut % (Auto) Lymph % (Auto) Granite % (Auto) Eos % (Auto) Baso % (Auto) Lymph # (Auto) Granite # (Auto) Eos # (Auto) Baso # (Auto) Abs Immat Gran (auto) Absolute Neuts (auto) Absolute Nucleated RBC Nucleated RBC % (auto) PT INR APTT O2 Saturation 95.0 ABG pH at Pt Temp 7.16 L* ABG pCO2 at Pt Temp 112 H* ABG pO2 at Pt Temp 83 ABG HCO3 40 H ABG Base Excess (Actual) 5.9 VBG pH 7.35 VBG pCO2 73 VBG pO2 81 VBG HCO3 41 H VBG O2 Saturation 97.0 VBG Base Excess 11.3 Anion Gap Estim Creat Clear Calc Estimated GFR Random Glucose Lactic Acid Calcium Total Bilirubin AST ALT Alkaline Phosphatase Troponin I High Sens B-Natriuretic Peptide Total Protein Albumin Urine Opiates Screen Not Detected Urine Fentanyl Screen Not Detected Ur Barbiturates Screen Not Detected Ur Phencyclidine Scrn Not Detected Ur Amphetamines Screen Not Detected U Benzodiazepines Scrn Not Detected Urine Cocaine Screen Not Detected U Marijuana (THC) Screen Not Detected Ethyl Alcohol < 10 Influenza Type A (PCR) Influenza Type B (PCR) RSV RNA Qual (PCR) SARS-CoV-2 RNA (RT-PCR) Imaging Radiologist's Impressions: Impressions Chest X-Ray 06/30/23 18:10 IMPRESSION: Persistent mild to moderate central pulmonary vascular congestion unchanged since chest x-ray April 20, 2023. Venous Duplex 06/30/23 18:41
[2023-07-01] VITALS (31 sets, daily range): BP systolic 89–142; BP diastolic 44–88; PULSE 69–95; RESP 12–20; TEMP 33–37.7; O2SAT 82–95; BMI 31.0; BMI 31.6
[2023-07-01 00:09] LABS: Bacteria Urine None Seen (None Seen); Squamous Epithelial Cell Urine 0-2 /HPF (0-2); WBC Urine 0-5 /HPF (0-5)
[2023-07-01] MEDS: dexmedeTOMIDidine HCL/NS 400 MCG/100 ML INFUS..BTL 19.2 MCG IVCONT (01:44)
[2023-07-01] MEDS: methylPREDNISolone Sod Succ 125 MG/2 ML VIAL 60 MG IVPUSH ×2 (01:45→07:43)
--- NOTE | 2023-07-01 01:50 | W.PM.CCHP ---
Procedures Date of Service Date of Service: 07/01/23 Central Line Placement Left IJ: Consent for Procedure: Emergent-no informed consent obtained Time out performed: Yes Sterile Technique Used: Yes Patient placed on monitor/pulse ox: Yes MD prep: mask, gown and gloves Central line prep: Chlorhexidine scrub Ultrasound used for placement: Yes Central line lumen inserted: triple Post procedure: sutured in place, good blood return, all ports aspirated, flushed, capped and sterile dressing applied Post procedure x-ray: tip of catheter in good position and no pneumothorax seen Patient tolerated procedure: well Complications: none
[2023-07-01] MEDS: HYDROmorphone HCl 1 MG/ML SYRINGE IVPUSH ×2 (01:55→02:07)
[2023-07-01] MEDS: Lactated Ringers 1,000 ML 150 ML IVCONT (02:34)
[2023-07-01] MEDS: Lactated Ringers 1,000 ML 999 ML IV (03:10)
[2023-07-01] MEDS: propofoL 1,000 MG/100 ML VIAL 18.43 MG IVCONT (03:15)
[2023-07-01 04:54] LABS: VBG Base Excess 9.6 mmol/L; VBG HCO3 39 mmol/L (22-26); VBG pCO2 75 mmHg; VBG pH 7.32 (7.32-7.43); VBG pO2 53 mmHg
[2023-07-01 04:59] LABS: Hematocrit 51.1 % (37.0-47.0); Hemoglobin 15.2 g/dl (12.0-16.0); Imm Gran Abs Auto 0.02 X10*3/uL (0.00-0.03); Imm Gran Pct Auto 0.3 % (0.0-0.4); Lymphocytes Absolute Auto 0.5 X10*3/uL (1.2-4.9); Lymphocytes Percent Auto 8.3 % (20-40); MANUAL DIFF FLAG SCAN; Mean Corpuscular HGB Conc 29.7 g/dl (31.0-35.0); Mean Corpuscular Hemoglobin 27.4 pg (27.0-33.0); Mean Corpuscular Volume 92.2 fL (80.0-98.0); Monocytes Percent Auto 0.6 % (2-11); Neutrophils Absolute Auto 5.6 x10*3/uL (2.0-8.3); Neutrophils Percent Auto 90.8 % (45-73); Platelet Count 95 X10*3/uL (160-400); Red Blood Count 5.54 X10*6/uL (4.20-5.50); Red Cell Distribution Width 16.3 % (11.0-16.0); SCAN SMEAR FLAG 1; White Blood Count 6.2 X10*3/uL (4.8-10.8)
[2023-07-01 05:12] LABS: Venous Blood Gas Refer to POC result
[2023-07-01 05:15] LABS: Alanine Aminotransferase 12 U/L (0-31); Albumin Level 3.1 g/dL (3.5-5.0); Alkaline Phosphatase 103 U/L (39-117); Anion Gap 11 (12-20); Aspartate Amino Transferase 21 U/L (5-31); Bilirubin Total 0.5 mg/dL (0.0-1.0); Blood Urea Nitrogen 12 mg/dL (9-16); Calcium 8.8 mg/dL (8.4-10.2); Carbon Dioxide 37 mmol/L (22-29); Chloride 97 mmol/L (96-108); Creatinine Clr Calc Pharmacy 86.8; Estimated Glomerular Filt Rate > 60; Glucose Random 187 mg/dL (60-115); Potassium 3.7 mmol/L (3.3-5.1); Sodium 141 mmol/L (135-145); Total Protein 6.5 g/dL (6.5-8.0)
[2023-07-01 05:34] LABS: SLIDE REVIEW VERIFIED
--- NOTE | 2023-07-01 06:31 | PC.NURSE ---
Patient admitted from the ED. Patient intubated and sedated on propofol upon arrival. Multiple attempts by two RNs for a second IV site were unsuccessful, a central line was then placed by the PA. Once central line was placed, IV sedation was weaned down or discontinued. Please see vent settings for changes throughout the shift.
[2023-07-01] MEDS: Albumin Human 25 % 100 ML IV ×2 (07:43→08:48)
[2023-07-01] MEDS: propofoL 1,000 MG/100 ML VIAL 13.82 MG IVCONT (08:48)
[2023-07-01] MEDS: Enoxaparin Sodium 40 MG/0.4 ML SYRINGE SUBCUT (08:49)
[2023-07-01] MEDS: acetaZOLAMIDE sodium 500 MG VIAL 250 MG IVPUSH ×2 (08:49→21:02)
[2023-07-01] MEDS: levoFLOXacin/D5W 750 MG/150 ML PIGGYBACK 100 MG IV (08:49)
[2023-07-01] MEDS: Famotidine/PF 20 MG/2 ML VIAL IVPUSH (08:49)
--- NOTE | 2023-07-01 09:50 | MHC.CLN ---
PT IS INTUBATED AND SEDATED CURRENTLY NPO IF TF NEEDED; RECOMMEND PROMOTE AT MAX GOAL RATE 40ML/HR TO PROVIDE 960KCALS (1325KCALS WITH SEDATION; 25KCALS/KG), 60G PROTEIN (1.1G/KG), 805ML FREE WATER FROM FORMULA MONITOR TOLERANCE, RESIDUALS AND LYTES SEE ALSO FULL CLINICAL NUTRITION ASSESSMENT
--- NOTE | 2023-07-01 10:03 | P.PNCC_ITS ---
Subjective Subjective Date of Service: 07/01/23 Interval History: 57-year-old lady with underlying history of COPD 4 L of supplemental oxygen, hepatitis-C, hypertension, hypothyroidism, hyperlipidemia, substance abuse, now on methadone admitted on of 06/30/2023 to intensive care unit with acute hypercapnic respiratory failure requiring ventilatory support. Patient started on empiric antibiotics, systemic glucocorticoids, nebulized bronchodilators, and acetazolamide. No events overnight Critical Care Time (minutes): 60 Physical Exam 2 Vital Signs: Vital Signs: Last Vital Signs Temp 98.4 F 07/01/23 09:53 Pulse 77 07/01/23 09:53 Resp 18 07/01/23 09:53 BP 121/71 07/01/23 09:53 Pulse Ox 87 L 07/01/23 09:53 O2 Del Method Mechanical Ventil ation 07/01/23 09:53 O2 Flow Rate 40 06/30/23 22:40 FiO2 50 07/01/23 09:53 BMI result Body Mass Index 31.6 Const: General: no acute distress and other (Sedated on the vent) Eyes: Sclerae: sclerae normal EOM: EOMs intact bilaterally Neck: Neck: Yes no lymphadenopathy, Yes trachea midline and Yes supple Resp: Auscultation: crackles (Bibasilar) Cardio: Rate: regular rate Rhythm: regular rhythm Heart sounds: no gallops, no murmurs and no rubs GI: Palpation (GI): Soft to palpation and Other GI palpation findings present ( Nontender) Auscultation: normal bowel sounds Extrem: General: Yes no pedal edema, No clubbing and No cyanosis Objective Data Labs 07/01/23 04:49 07/01/23 04:49 Labs: Laboratory Results - last 24 hr 06/30/23 06/30/23 06/30/23 18:15 18:16 18:20 WBC 7.3 RBC 6.16 H Hgb 17.1 H Hct 56.9 H MCV 92.4 MCH 27.8 MCHC 30.1 L RDW 16.8 H Plt Count 102 L D MPV 11.5 Immature Gran % (Auto) 0.3 Neut % (Auto) 50.7 Lymph % (Auto) 37.0 [place] % (Auto) 8.3 Eos % (Auto) 3.0 Baso % (Auto) 0.7 Lymph # (Auto) 2.7 [place] # (Auto) 0.6 Eos # (Auto) 0.2 Baso # (Auto) 0.1 Abs Immat Gran (auto) 0.02 Absolute Neuts (auto) 3.7 Absolute Nucleated RBC 0.000 Nucleated RBC % (auto) 0.0 Smear Tech's Comments PT 10.7 L INR 0.9 APTT 33.8 O2 Saturation ABG pH at Pt Temp ABG pCO2 at Pt Temp ABG pO2 at Pt Temp ABG HCO3 ABG Base Excess (Actual) VBG pH 7.35 VBG pCO2 76 VBG pO2 62 VBG HCO3 42 H VBG O2 Saturation 91.0 VBG Base Excess 11.7 Sodium 141 Potassium 4.2 Chloride 94 L Carbon Dioxide 43 H* Anion Gap 8 L BUN 12 Creatinine 0.64 Estim Creat Clear Calc 89.8 Estimated GFR > 60 Random Glucose 116 H Lactic Acid 0.8 Calcium 9.6 Total Bilirubin 0.7 AST 19 ALT 11 Alkaline Phosphatase 122 H Troponin I High Sens < 2.7 B-Natriuretic Peptide 38 Total Protein 7.9 Albumin 3.8 Urine Color Urine Appearance Urine pH Ur Specific [place] Urine Protein Urine Glucose (UA) Urine Ketones Urine Blood Urine Nitrite Ur Leukocyte Esterase Urine RBC Urine WBC Ur Squamous Epith Cells Urine Bacteria Hyaline Casts Urine Opiates Screen Urine Fentanyl Screen Ur Barbiturates Screen Ur Phencyclidine Scrn Ur Amphetamines Screen U Benzodiazepines Scrn Urine Cocaine Screen U Marijuana (THC) Screen Ethyl Alcohol Influenza Type A (PCR) NEGATIVE Influenza Type B (PCR) NEGATIVE RSV RNA Qual (PCR) NEGATIVE SARS-CoV-2 RNA (RT-PCR) NEGATIVE 06/30/23 06/30/23 06/30/23 19:39 22:42 23:35 WBC RBC Hgb Hct MCV MCH MCHC RDW Plt Count MPV Immature Gran % (Auto) Neut % (Auto) Lymph % (Auto) [place] % (Auto) Eos % (Auto) Baso % (Auto) Lymph # (Auto) [place] # (Auto) Eos # (Auto) Baso # (Auto) Abs Immat Gran (auto) Absolute Neuts (auto) Absolute Nucleated RBC Nucleated RBC % (auto) Smear Tech's Comments PT INR APTT O2 Saturation 95.0 ABG pH at Pt Temp 7.16 L* ABG pCO2 at Pt Temp 112 H* ABG pO2 at Pt Temp 83 ABG HCO3 40 H ABG Base Excess (Actual) 5.9 VBG pH 7.35 VBG pCO2 73 VBG pO2 81 VBG HCO3 41 H VBG O2 Saturation 97.0 VBG Base Excess 11.3 Sodium Potassium Chloride Carbon Dioxide Anion Gap BUN Creatinine Estim Creat Clear Calc Estimated GFR Random Glucose Lactic Acid Calcium Total Bilirubin AST ALT Alkaline Phosphatase Troponin I High Sens B-Natriuretic Peptide Total Protein Albumin Urine Color Yellow Urine Appearance Clear Urine pH 7.0 Ur Specific [place] 1.010 Urine Protein 30 (1+) H Urine Glucose (UA) Negative Urine Ketones Negative Urine Blood Large (3+) H Urine Nitrite Negative Ur Leukocyte Esterase Negative Urine RBC 3-5 H Urine WBC 0-5 Ur Squamous Epith Cells 0-2 Urine Bacteria None Seen Hyaline Casts 3-5 Urine Opiates Screen Not Detected Urine Fentanyl Screen Not Detected Ur Barbiturates Screen Not Detected Ur Phencyclidine Scrn Not Detected Ur Amphetamines Screen Not Detected U Benzodiazepines Scrn Not Detected Urine Cocaine Screen Not Detected U Marijuana (THC) Screen Not Detected Ethyl Alcohol < 10 Influenza Type A (PCR) Influenza Type B (PCR) RSV RNA Qual (PCR) SARS-CoV-2 RNA (RT-PCR) 07/01/23 07/01/23 04:47 04:49 WBC 6.2 RBC 5.54 H Hgb 15.2 Hct 51.1 H MCV 92.2 MCH 27.4 MCHC 29.7 L RDW 16.3 H Plt Count 95 L MPV TNP Immature Gran % (Auto) 0.3 Neut % (Auto) 90.8 H Lymph % (Auto) 8.3 L [place] % (Auto) 0.6 L Eos % (Auto) 0.0 Baso % (Auto) 0.0 Lymph # (Auto) 0.5 L [place] # (Auto) 0.0 L Eos # (Auto) 0.0 Baso # (Auto) 0.0 Abs Immat Gran (auto) 0.02 Absolute Neuts (auto) 5.6 Absolute Nucleated RBC 0.000 Nucleated RBC % (auto) 0.0 Smear Tech's Comments VERIFIED PT INR APTT O2 Saturation ABG pH at Pt Temp ABG pCO2 at Pt Temp ABG pO2 at Pt Temp ABG HCO3 ABG Base Excess (Actual) VBG pH 7.32 VBG pCO2 75 VBG pO2 53 VBG HCO3 39 H VBG O2 Saturation 84.0 VBG Base Excess 9.6 Sodium 141 Potassium 3.7 Chloride 97 Carbon Dioxide 37 H Anion Gap 11 L BUN 12 Creatinine 0.64 Estim Creat Clear Calc 86.8 Estimated GFR > 60 Random Glucose 187 H Lactic Acid Calcium 8.8 D Total Bilirubin 0.5 AST 21 ALT 12 Alkaline Phosphatase 103 Troponin I High Sens B-Natriuretic Peptide Total Protein 6.5 Albumin 3.1 L Urine Color Urine Appearance Urine pH Ur Specific [place] Urine Protein Urine Glucose (UA) Urine Ketones Urine Blood Urine Nitrite Ur Leukocyte Esterase Urine RBC Urine WBC Ur Squamous Epith Cells Urine Bacteria Hyaline Casts Urine Opiates Screen Urine Fentanyl Screen Ur Barbiturates Screen Ur Phencyclidine Scrn Ur Amphetamines Screen U Benzodiazepines Scrn Urine Cocaine Screen U Marijuana (THC) Screen Ethyl Alcohol Influenza Type A (PCR) Influenza Type B (PCR) RSV RNA Qual (PCR) SARS-CoV-2 RNA (RT-PCR) Microbiology Microbiology Results: Microbiology 07/01/23 01:29 Sputum - Suctioned Gram Stain - Final 07/01/23 01:29 Sputum - Suctioned Sputum Culture - Final Progress Note: A&P Assessment and plan (1) Acute respiratory failure with hypoxia and hypercapnia: Status: Acute (2) Hepatitis C: Status: Acute (3) COPD (chronic obstructive pulmonary disease): Status: Acute (4) Methadone dependence: Status: Acute (5) Alcoholic cirrhosis: Status: Acute Plan Assessment: 57-year-old lady with underlying COPD, CO2 retention, on supplemental oxygen up to 4 L admitted with acute hypoxic and hypercapnic respiratory failure now requiring ventilatory support. Plan: Neuro: No acute issues. Cardiac: No acute issues. Pulmonary: Acute on chronic hypoxic and hypercapnic respiratory failure requiring ventilatory support. Continue to titrate off as tolerated. Renal: No acute issues. Endo: No acute issues. Underlying hypothyroidism. GI: No acute issues. Underlying hepatitis-C. ID: No acute issues Heme/Onc: No acute issues. Psych: No acute issues. Miscellaneous: No acute issues. Prophylaxis: Famotidine, Lovenox Diet: NPO Critical care time spent: 60 minutes Quality Stroke Does the patient have a stroke diagnosis?: No VTE Prior VTE?: No VTE Risk Level:: Medical - moderate - high VTE Device Contraindication: N/A - Device Ordered VTE Drug Contraindication: N/A - Med Ordered
--- NOTE | 2023-07-01 10:08 | PHA.MEDREC ---
Pharmacy Consult ? Medication Reconciliation Pharmacy has completed the medication reconciliation. Spoke to patient's daughter Gia [phone] via phone and confirmed medication list. Spoke to ICU nurse, she will get the methadone verification form done.
[2023-07-01] MEDS: Furosemide 20 MG/2 ML VIAL IVPUSH (10:24)
--- NOTE | 2023-07-01 10:30 | PC.RT ---
Pt found on PSV settings. Settings change made by provider, RT unaware and not contacted about change.
--- NOTE | 2023-07-01 10:49 | PC.RT ---
Pt extubated w/o incident. Positive cuff leak. B/s clear and dim, no stridor noted post extubation. Pt on 15L [place], SATs 88-90% per MD request.
[2023-07-01] MEDS: Albuterol/Iprat 2.5/0.5MG 3 ML AMPUL.NEB INHALE ×3 (12:00→20:11)
[2023-07-01 12:23] LABS: ABG Base Excess 11.6 mmol/L; ABG HCO3 40 mmol/L (22-26); ABG pCO2 68 mmHg (32-45); ABG pH 7.37 (7.35-7.45); ABG pO2 45 mmHg (83-108)
--- NOTE | 2023-07-01 12:56 | PC.RT ---
ABG results sent to MD Johnson, PO2 44 mmhg. MD aware that Pt O2 SATs were 77% on 2L NC and 84% on 4L NC. Pt remains on 4L NC per .
--- NOTE | 2023-07-01 14:16 | HE.PHANOTE ---
RE: METHADONE DOSE Last dose of methadone 85 mg was given on 06/30/2023 (by home RN) per MIGEL Sanchez at [facility].
--- NOTE | 2023-07-01 15:11 | MHC.CM.PN ---
Pt presently in ICU intubated with plans to extubate today if sedation vacation successful. Review of EMR notes pt came from home: No HCP on file. Attempted to contact next of kin, joleen Nielsen: no ability to leave a VM on number. CM to follow on 07/01 when pt is able to participate in conversation.
[2023-07-02] VITALS (18 sets, daily range): BP systolic 120–139; BP diastolic 70–92; PULSE 75–91; RESP 14–24; TEMP 36.2–37.4; O2SAT 86–91; BMI 30.4
[2023-07-02 04:02] LABS: ABG Refer to POC result
[2023-07-02 05:30] LABS: Mean Corpuscular Volume 91.3 fL (80.0-98.0); PLT ABN DIST 1; SCAN SMEAR FLAG 1
[2023-07-02 05:30] LABS: VBG Base Excess 5.2 mmol/L; VBG HCO3 33 mmol/L (22-26); VBG pCO2 61 mmHg; VBG pH 7.34 (7.32-7.43); VBG pO2 47 mmHg
[2023-07-02 05:32] LABS: Basophils Percent Auto 0.2 % (0-2); Eosinophils Percent Auto 0.1 % (0-4); Hematocrit 52.3 % (37.0-47.0); Hemoglobin 16.1 g/dl (12.0-16.0); Imm Gran Abs Auto 0.03 X10*3/uL (0.00-0.03); Imm Gran Pct Auto 0.3 % (0.0-0.4); Lymphocytes Percent Auto 18.9 % (20-40); Mean Corpuscular HGB Conc 30.8 g/dl (31.0-35.0); Mean Corpuscular Hemoglobin 28.1 pg (27.0-33.0); Monocytes Absolute Auto 0.7 X10*3/uL (0.1-1.2); Monocytes Percent Auto 7.1 % (2-11); Neutrophils Absolute Auto 7.7 x10*3/uL (2.0-8.3); Neutrophils Percent Auto 73.4 % (45-73); Platelet Count 99 X10*3/uL (160-400); Red Blood Count 5.73 X10*6/uL (4.20-5.50); Red Cell Distribution Width 17.4 % (11.0-16.0); White Blood Count 10.5 X10*3/uL (4.8-10.8)
[2023-07-02 05:33] LABS: MANUAL DIFF FLAG NO
[2023-07-02 05:40] LABS: Venous Blood Gas Refer to POC result
[2023-07-02 05:51] LABS: Anion Gap 8 (12-20); Blood Urea Nitrogen 15 mg/dL (9-16); Calcium 9.5 mg/dL (8.4-10.2); Carbon Dioxide 33 mmol/L (22-29); Chloride 103 mmol/L (96-108); Estimated Glomerular Filt Rate > 60; Glucose Random 144 mg/dL (60-115); Magnesium 2.3 mg/dL (1.6-2.6); Phosphorus 2.3 mg/dL (2.7-4.5); Potassium 3.2 mmol/L (3.3-5.1); Sodium 141 mmol/L (135-145)
[2023-07-02] MEDS: Potassium Chloride Packet 20 MEQ PACKET 40 MEQ PO (06:35)
[2023-07-02] MEDS: Sodium,Potassium Phosphates POWD.PACK 2 PACKET PO (06:35)
[2023-07-02 07:30] LABS: Glucose, Whole Blood 112 mg/dL (60-115)
[2023-07-02] MEDS: Albuterol/Iprat 2.5/0.5MG 3 ML AMPUL.NEB INHALE ×3 (08:04→19:55)
[2023-07-02] MEDS: levoFLOXacin/D5W 750 MG/150 ML PIGGYBACK 150 MG IV (08:47)
[2023-07-02] MEDS: Famotidine/PF 20 MG/2 ML VIAL IVPUSH (08:47)
[2023-07-02] MEDS: acetaZOLAMIDE sodium 500 MG VIAL 250 MG IVPUSH ×2 (08:47→20:37)
[2023-07-02] MEDS: Enoxaparin Sodium 40 MG/0.4 ML SYRINGE SUBCUT (08:47)
[2023-07-02] MEDS: Furosemide 20 MG/2 ML VIAL IVPUSH (09:33)
--- NOTE | 2023-07-02 09:34 | PM.CCPN ---
Subjective Subjective Date of Service: 07/02/23 Interval History: 57-year-old lady with underlying history of COPD 4 L of supplemental oxygen, hepatitis-C, hypertension, hypothyroidism, hyperlipidemia, substance abuse, now on methadone admitted on of 06/30/2023 to intensive care unit with acute hypercapnic respiratory failure requiring ventilatory support. Patient started on empiric antibiotics, systemic glucocorticoids, nebulized bronchodilators, and acetazolamide. Extubated uneventfully on 07/01/2023. No events overnight Critical Care Time (minutes): 0 Physical Exam Vital Signs: Vital Signs: Last Vital Signs Temp 99.3 F 07/02/23 09:00 Pulse 85 07/02/23 09:00 Resp 17 07/02/23 09:00 BP 120/74 07/02/23 09:00 Pulse Ox 87 L 07/02/23 09:00 O2 Del Method Nasal Cannula 07/02/23 09:00 O2 Flow Rate 5 07/02/23 09:00 FiO2 50 07/01/23 09:53 BMI result Body Mass Index 30.4 Const: General: no acute distress, alert and awake Eyes: Sclerae: sclerae normal EOM: EOMs intact bilaterally Neck: Neck: Yes no lymphadenopathy, Yes trachea midline and Yes supple Resp: Effort & Inspection: normal respiratory effort and no respiratory distress Auscultation: clear to auscultation bilaterally Cardio: Rate: regular rate Rhythm: regular rhythm Heart sounds: no gallops, no murmurs and no rubs GI: Palpation (GI): Soft to palpation and Other GI palpation findings present ( Nontender) Auscultation: normal bowel sounds Extrem: General: Yes no pedal edema, No clubbing and No cyanosis Objective Data Labs 07/02/23 05:12 07/02/23 05:12 Labs: Laboratory Results - last 24 hr 06/30/23 07/01/23 07/02/23 18:16 12:16 05:12 WBC 10.5 RBC 5.73 H Hgb 16.1 H Hct 52.3 H MCV 91.3 MCH 28.1 MCHC 30.8 L RDW 17.4 H Plt Count 99 L MPV Not Reportable Immature Gran % (Auto) 0.3 Neut % (Auto) 73.4 H Lymph % (Auto) 18.[address] [place] % (Auto) 7.1 Eos % (Auto) 0.1 Baso % (Auto) 0.2 Lymph # (Auto) 2.0 [place] # (Auto) 0.7 Eos # (Auto) 0.0 Baso # (Auto) 0.0 Abs Immat Gran (auto) 0.03 Absolute Neuts (auto) 7.7 Absolute Nucleated RBC 0.000 Nucleated RBC % (auto) 0.0 PT 10.7 L INR 0.9 APTT 33.8 O2 Saturation 77.0 ABG pH at Pt Temp 7.37 ABG pCO2 at Pt Temp 68 H* ABG pO2 at Pt Temp 45 L* ABG HCO3 40 H ABG Base Excess (Actual) 11.6 VBG pH VBG pCO2 VBG pO2 VBG HCO3 VBG O2 Saturation VBG Base Excess Sodium 141 Potassium 3.2 L Chloride 103 Carbon Dioxide 33 H Anion Gap 8 L BUN 15 Creatinine 0.72 Estim Creat Clear Calc 78.0 Estimated GFR > 60 POC Glucose Random Glucose 144 H Calcium 9.5 D Phosphorus 2.3 L Magnesium 2.3 Albumin 4.0 07/02/23 07/02/23 05:22 07:27 WBC RBC Hgb Hct MCV MCH MCHC RDW Plt Count MPV Immature Gran % (Auto) Neut % (Auto) Lymph % (Auto) [place] % (Auto) Eos % (Auto) Baso % (Auto) Lymph # (Auto) [place] # (Auto) Eos # (Auto) Baso # (Auto) Abs Immat Gran (auto) Absolute Neuts (auto) Absolute Nucleated RBC Nucleated RBC % (auto) PT INR APTT O2 Saturation ABG pH at Pt Temp ABG pCO2 at Pt Temp ABG pO2 at Pt Temp ABG HCO3 ABG Base Excess (Actual) VBG pH 7.34 VBG pCO2 61 VBG pO2 47 VBG HCO3 33 H VBG O2 Saturation 77.0 VBG Base Excess 5.2 Sodium Potassium Chloride Carbon Dioxide Anion Gap BUN Creatinine Estim Creat Clear Calc Estimated GFR POC Glucose 112 Random Glucose Calcium Phosphorus Magnesium Albumin Microbiology Microbiology Results: Microbiology 06/30/23 18:16 Blood - Venous Blood Culture - Preliminary No growth after 24 hours. 06/30/23 18:14 Blood - Venous Blood Culture - Preliminary Prelim: GPC Gram Stain only 07/01/23 01:29 Sputum - Suctioned Gram Stain - Final 07/01/23 01:29 Sputum - Suctioned Sputum Culture - Final Progress Note: A&P Assessment and plan (1) Methadone dependence: Status: Acute (2) COPD (chronic obstructive pulmonary disease): Status: Acute (3) Hepatitis C: Status: Acute (4) Acute respiratory failure with hypoxia and hypercapnia: Status: Acute (5) Alcoholic cirrhosis: Status: Acute Plan Assessment: 57-year-old lady with underlying COPD, CO2 retention, on supplemental oxygen up to 4 L admitted with acute hypoxic and hypercapnic respiratory failure now requiring ventilatory support. Plan: Neuro: No acute issues. Cardiac: No acute issues. Pulmonary: Acute on chronic hypoxic and hypercapnic respiratory failure initially requiring ventilatory support, extubated 07/01/2023. Continue to titrate off supplemental oxygen as tolerated. Renal: No acute issues. Endo: No acute issues. Underlying hypothyroidism. GI: No acute issues. Underlying hepatitis-C/alcoholic cirrhosis. ID: No acute issues Heme/Onc: No acute issues. Psych: No acute issues. Miscellaneous: No acute issues. Prophylaxis: Lovenox Diet: Regular Quality Stroke Does the patient have a stroke diagnosis?: No VTE Prior VTE?: No VTE Risk Level:: Medical - moderate - high VTE Device Contraindication: N/A - Device Ordered VTE Drug Contraindication: N/A - Med Ordered
--- NOTE | 2023-07-02 11:36 | MHC.CM.PN ---
Met w/pt to review d/c plan: pt resides alone and has 3 hours/day of [employer] services through [employer]: [employer]NAGER assists w/transportation, some ADL's and housekeeping. Family also assists pt with transportation. Pt has a walker and cane and [employer] for home O2. Discussed d/c needs: pt would like to return to home w/outpt follow up w/PCP. Pt has working cell with her and will call family for transportation to home. HCP on file and verified: PCP Dr. Copeland
[2023-07-02 11:45] LABS: Glucose, Whole Blood 172 mg/dL (60-115)
[2023-07-02] MEDS: Insulin Lispro 100 UNIT/ML 3 ML VIAL SUBCUT ×2 (12:17→20:38)
[2023-07-02] MEDS: methADONE HCl 20 MG/2 ML ORAL.CONC 85 MG PO (15:25)
--- NOTE | 2023-07-02 16:58 | PM.EVENT ---
Event Note Date of Service: 07/02/23 Event Note: 57-year-old lady with underlying history of COPD 4 L of supplemental oxygen, hepatitis-C/etoh cirrhosis, hypertension, hypothyroidism, hyperlipidemia, substance abuse on methadone admitted to intensive care unit with shortness of breath and hypercapnic respiratory failure requiring intubation. Patient was treated with systemic glucocorticoids, nebulized bronchodilators, and acetazolamide and lasix with significant improvement, was extubated 06/30 and downgraded to the medical service 07/01. acute on chronic respiratory failure with hypercapnia and hypoxia due to COPD, pneumonia and fluid overload on baseline 4L supplemental oxygen s/p intubation s/p IV lasix on azetazolamide continue breathing treatments continue levaquin blood cultures / coag neg staph, likely contaminant goal o2 saturation 87-90% to prevent hypercapnia hypokalemia s/p replacement follow BMP DM hold metformin follow POCs HTN bp controlled home meds on hold (olmesartan, norvasc, lisinopril) follow bp closely Mood resume zoloft, perphenazine TCP r/t liver dz. at baseline hypothyroidism continue synthroid OUD continue methadone dvt ppx - lovenox Time Spent With Patient Time: Total time managing care of this patient today ____ minutes.
[2023-07-02 19:57] LABS: Glucose, Whole Blood 125 mg/dL (60-115)
[2023-07-02 19:57] LABS: Glucose, Whole Blood 156 mg/dL (60-115)
[2023-07-02] MEDS: Perphenazine 4 MG TABLET PO (20:38)
[2023-07-02] MEDS: Docusate Sodium 100 MG CAPSULE PO (20:38)
[2023-07-03] VITALS (10 sets, daily range): BP systolic 108–133; BP diastolic 63–88; PULSE 75–89; RESP 16–20; TEMP 36.1–36.8; O2SAT 86–91; BMI 29.8
[2023-07-03] MEDS: Levothyroxine Sodium 25 MCG TABLET PO (05:21)
[2023-07-03] MEDS: Levothyroxine Sodium 200 MCG TABLET PO (05:21)
[2023-07-03 07:16] LABS: Glucose, Whole Blood 109 mg/dL (60-115)
[2023-07-03 07:23] LABS: VBG Base Excess 2.2 mmol/L; VBG HCO3 29 mmol/L (22-26); VBG pCO2 51 mmHg; VBG pH 7.36 (7.32-7.43); VBG pO2 75 mmHg
[2023-07-03 07:24] LABS: Venous Blood Gas Refer to POC result
[2023-07-03] MEDS: methADONE HCl 20 MG/2 ML ORAL.CONC 85 MG PO (08:14)
[2023-07-03] MEDS: Docusate Sodium 100 MG CAPSULE PO ×2 (08:15→21:15)
[2023-07-03] MEDS: acetaZOLAMIDE sodium 500 MG VIAL 250 MG IVPUSH ×2 (08:15→21:14)
[2023-07-03] MEDS: Sertraline HCL 100 MG TABLET PO (08:15)
[2023-07-03] MEDS: levoFLOXacin/D5W 750 MG/150 ML PIGGYBACK 100 MG IV (08:15)
[2023-07-03] MEDS: Enoxaparin Sodium 40 MG/0.4 ML SYRINGE SUBCUT (08:15)
[2023-07-03] MEDS: Sertraline HCL 25 MG TABLET PO (08:15)
[2023-07-03] MEDS: Fluticasone/Vilanterol 200/25 BLST.W.DEV 1 PUFF INHALE (08:20)
[2023-07-03] MEDS: Albuterol/Iprat 2.5/0.5MG 3 ML AMPUL.NEB INHALE ×3 (08:20→19:36)
--- NOTE | 2023-07-03 10:28 | HO.PM.IMPN ---
Subjective Subjective Date of Service: 07/03/23 Interval History: Seen and examined this morning Follow-up for respiratory failure, pneumonia History obtained with the assistance of a radiation officer Patient awake alert, resting comfortably in bed. Reports ongoing cough productive of yellow phlegm and ongoing shortness of breath Review of Systems Review of Systems: Yes all other systems are reviewed and are negative Constitutional Constitutional: Denies chills and Denies fever(s) Cardiovascular Cardiovascular: Denies chest pain, Denies palpitations and Reports dyspnea Respiratory Respiratory: Reports cough and Reports dyspnea Endocrine Endocrine: Denies palpitations Physical Exam Vital Signs: Vital Signs: Last Vital Signs Temp 97.5 F 07/03/23 07:11 Pulse 75 07/03/23 08:23 Resp 18 07/03/23 08:23 BP 133/80 07/03/23 07:11 Pulse Ox 86 L 07/03/23 07:11 O2 Del Method Nasal Cannula 07/03/23 07:11 O2 Flow Rate 6 07/03/23 07:11 FiO2 50 07/01/23 09:53 BMI result Body Mass Index 29.8 Const: General: cooperative, comfortable, no acute distress, alert and awake Nutritional Appearance: average body habitus Orientation/consciousness: patient oriented x3 Resp: Other: prolonged expiratory phase, wheezing bilaterally Effort & Inspection: normal respiratory effort, able to speak in complete sentences, no respiratory distress and no use of accessory muscles Cardio: Rate: regular rate GI: Inspection: No distended Palpation (GI): Soft to palpation and nontender Neuro: General: patient oriented x3, moves all extremities and CN's II-XI intact bilaterally Extrem: General: Yes no pedal edema Objective Data Active Medications Acetazolamide (Acetazolamide Sodium 500 Mg Vial) 250 mg IVPUSH BID [facility] Last Admin: 07/03/23 08:15 Dose: 250 mg Documented By: MICHELL Albuterol Sulfate (Albuterol Sulfate (0.083%) 2.5 Mg/3 Ml Vial.Neb) 2.5 mg INHALE Q4H PRN PRN Reason: Wheezing Albuterol/Ipratropium (Albuterol/Iprat 2.5/0.5mg 3 Ml Ampul.Neb) 3 ml INHALE RQ6H WHILE AWAKE [facility] Last Admin: 07/03/23 08:20 Dose: 3 ml Documented By: LYNNE Docusate Sodium (Docusate Sodium 100 Mg Capsule) 100 mg PO BID [facility] Last Admin: 07/03/23 08:15 Dose: 100 mg Documented By: MICHELL Enoxaparin Sodium (Enoxaparin Sodium 40 Mg/0.4 Ml Syringe) 40 mg SUBCUT Q24H [facility] Last Admin: 07/03/23 08:15 Dose: 40 mg Documented By: MICHELL Fluticasone/Vilanterol (Fluticasone/Vilanterol 200/25 Blst.W.Dev) 1 puff INHALE RDAILY [facility] Last Admin: 07/03/23 08:20 Dose: 1 puff Documented By: LYNNE Levofloxacin (Levaquin) 750 mg in 150 mls @ 100 mls/hr IV Q24H [facility] Last Admin: 07/03/23 08:15 Dose: 100 mls/hr Documented By: MICHELL Insulin Human Lispro (Insulin Lispro 100 Unit/Ml 3 Ml Vial) 0 unit SUBCUT QIDACHS [facility]; Protocol Last Admin: 07/03/23 08:37 Dose: Not Given Documented By: MICHELL Non-Admin Reason: No Insulin Coverage Levothyroxine Sodium (Levothyroxine Sodium 200 Mcg Tablet) 200 mcg PO DAILY@0600 [facility] Last Admin: 07/03/23 05:21 Dose: 200 mcg Documented By: DREW Levothyroxine Sodium (Levothyroxine Sodium 25 Mcg Tablet) 25 mcg PO DAILY@0600 [facility] Last Admin: 07/03/23 05:21 Dose: 25 mcg Documented By: DREW Methadone HCl (Methadone Hcl 20 Mg/2 Ml Oral.Conc) 85 mg PO DAILY [facility] Last Admin: 07/03/23 08:14 Dose: 85 mg Documented By: MICHELL Nicotine Polacrilex (Nicotine Polacrilex 2 Mg Gum) 2 mg BUCCAL Q2H PRN PRN Reason: Smoking Cessation Perphenazine (Perphenazine 4 Mg Tablet) 4 mg PO BEDTIME [facility] Last Admin: 07/02/23 20:38 Dose: 4 mg Documented By: DREW Sertraline HCl (Sertraline Hcl 100 Mg Tablet) 100 mg PO DAILY@0900 [facility] Last Admin: 07/03/23 08:15 Dose: 100 mg Documented By: MICHELL Sertraline HCl (Sertraline Hcl 25 Mg Tablet) 25 mg PO DAILY@0900 [facility] Last Admin: 07/03/23 08:15 Dose: 25 mg Documented By: MICHELL Labs 07/02/23 05:12 07/02/23 05:12 Labs: Laboratory Results - last 24 hr 07/02/23 07/02/23 07/02/23 11:35 15:55 19:51 Hold Purple Top VBG pH VBG pCO2 VBG pO2 VBG HCO3 VBG O2 Saturation VBG Base Excess POC Glucose 172 H 125 H 156 H 07/03/23 07/03/23 07/03/23 07:00 07:04 07:12 Hold Purple Top SEE NOTE VBG pH 7.36 VBG pCO2 51 VBG pO2 75 VBG HCO3 29 H VBG O2 Saturation 96.0 VBG Base Excess 2.2 POC Glucose 109 Microbiology Microbiology Results: Microbiology 06/30/23 18:16 Blood Culture - Preliminary Blood - Venous No growth after 48 hours. 06/30/23 18:14 Blood Culture - Final Blood - Venous Coag negative Staphylococcus Assessment and Plan (1) Acute respiratory failure with hypoxia and hypercapnia: Status: Acute (2) Community acquired pneumonia: Status: Acute Plan This is a 57-year-old female with underlying COPD on 4 L of supplemental oxygen, hepatitis-C/etoh cirrhosis, hypertension, hypothyroidism, hyperlipidemia, substance abuse on methadone who presented with shortness of breath and hypercapnic respiratory failure requiring intubation in the ED and was subsequently admitted to the ICU. Patient was treated with systemic glucocorticoids, nebulized bronchodilators, and acetazolamide and lasix with significant improvement, was extubated 06/30 and downgraded to the medical service 07/01. acute on chronic respiratory failure with hypercapnia and hypoxia due to COPD, pneumonia and fluid overload CT chest showing b/l lower lobe consolidatio on baseline 4L supplemental oxygen s/p intubation s/p IV lasix on azetazolamide continue breathing treatments continue levaquin, started 06/30 blood cultures 1/2 coag neg staph, likely contaminant goal o2 saturation 87-90% to prevent hypercapnia hypokalemia s/p replacement follow BMP DM hold metformin follow POCs HTN bp controlled home meds on hold (olmesartan, norvasc, lisinopril) follow bp closely Mood resume home meds - zoloft, perphenazine TCP r/t liver dz. at baseline hypothyroidism continue synthroid OUD continue methadone tobacco dependence smoking cessation advised. dvt ppx - lovenox Patient requires ongoing inpatient stay for management of pneumonia, hypercarbic/hypoxic respiratory failure requiring close monitoring of respiratory status Quality Stroke Does the patient have a stroke diagnosis?: No VTE Prior VTE?: No VTE Risk Level:: Medical - moderate - high VTE Device Contraindication: N/A - Device Ordered VTE Drug Contraindication: N/A - Med Ordered
[2023-07-03 11:37] LABS: Glucose, Whole Blood 119 mg/dL (60-115)
[2023-07-03 11:53] LABS: Anion Gap 11 (12-20); Blood Urea Nitrogen 21 mg/dL (9-16); Calcium 9.7 mg/dL (8.4-10.2); Carbon Dioxide 27 mmol/L (22-29); Chloride 105 mmol/L (96-108); Creatinine Clr Calc Pharmacy 73.7; Estimated Glomerular Filt Rate > 60; Glucose Random 107 mg/dL (60-115); Potassium 4.7 mmol/L (3.3-5.1); Sodium 138 mmol/L (135-145)
[2023-07-03 16:24] LABS: Glucose, Whole Blood 175 mg/dL (60-115)
[2023-07-03] MEDS: Insulin Lispro 100 UNIT/ML 3 ML VIAL SUBCUT ×2 (17:04→21:15)
[2023-07-03 20:08] LABS: Glucose, Whole Blood 179 mg/dL (60-115)
[2023-07-03] MEDS: Perphenazine 4 MG TABLET PO (21:15)
[2023-07-04] VITALS (11 sets, daily range): BP systolic 111–117; BP diastolic 59–74; PULSE 82–96; RESP 16–20; TEMP 36.1–37.1; O2SAT 84–98
[2023-07-04] MEDS: Levothyroxine Sodium 200 MCG TABLET PO (05:46)
[2023-07-04] MEDS: Levothyroxine Sodium 25 MCG TABLET PO (05:46)
[2023-07-04 07:24] LABS: Glucose, Whole Blood 122 mg/dL (60-115)
[2023-07-04] MEDS: Fluticasone/Vilanterol 200/25 BLST.W.DEV 1 PUFF INHALE (07:54)
[2023-07-04] MEDS: Albuterol/Iprat 2.5/0.5MG 3 ML AMPUL.NEB INHALE ×3 (07:55→19:24)
--- NOTE | 2023-07-04 09:03 | HO.PM.IMPN ---
Subjective Subjective Date of Service: 07/04/23 Interval History: Seen and examined this morning Follow-up for respiratory failure, pneumonia History obtained with the assistance of a transaction processor Patient awake alert, resting comfortably in bed. Reports ongoing cough productive of yellow phlegm and ongoing shortness of breath Review of Systems Review of Systems: Yes all other systems are reviewed and are negative Constitutional Constitutional: Denies chills and Denies fever(s) Cardiovascular Cardiovascular: Denies chest pain, Denies palpitations and Reports dyspnea Respiratory Respiratory: Reports cough and Reports dyspnea Endocrine Endocrine: Denies palpitations Physical Exam Vital Signs: Vital Signs: Last Vital Signs Temp 98.7 F 07/04/23 07:09 Pulse 83 07/04/23 07:57 Resp 16 07/04/23 07:57 BP 113/59 L 07/04/23 07:09 Pulse Ox 93 07/04/23 07:09 O2 Del Method Oxymask 07/04/23 07:09 O2 Flow Rate 6 07/04/23 04:00 FiO2 50 07/01/23 09:53 BMI result Body Mass Index 29.8 Objective Data Active Medications Albuterol Sulfate (Albuterol Sulfate (0.083%) 2.5 Mg/3 Ml Vial.Neb) 2.5 mg INHALE Q4H PRN PRN Reason: Wheezing Albuterol/Ipratropium (Albuterol/Iprat 2.5/0.5mg 3 Ml Ampul.Neb) 3 ml INHALE RQ6H WHILE AWAKE [facility] Last Admin: 07/04/23 07:55 Dose: 3 ml Documented By: LYNNE Docusate Sodium (Docusate Sodium 100 Mg Capsule) 100 mg PO BID [facility] Last Admin: 07/03/23 21:15 Dose: 100 mg Documented By: REJI Enoxaparin Sodium (Enoxaparin Sodium 40 Mg/0.4 Ml Syringe) 40 mg SUBCUT Q24H [facility] Last Admin: 07/03/23 08:15 Dose: 40 mg Documented By: MICHELL Fluticasone/Vilanterol (Fluticasone/Vilanterol 200/25 Blst.W.Dev) 1 puff INHALE RDAILY [facility] Last Admin: 07/04/23 07:54 Dose: 1 puff Documented By: LYNNE Levofloxacin (Levaquin) 750 mg in 150 mls @ 100 mls/hr IV Q24H [facility] Last Infusion: 07/03/23 12:00 Dose: Infused Documented By: MICHELL Insulin Human Lispro (Insulin Lispro 100 Unit/Ml 3 Ml Vial) 0 unit SUBCUT BRIANDACHGlenda [facility]; Protocol Last Admin: 07/04/23 07:39 Dose: Not Given Documented By: ULISSES Non-Admin Reason: No Insulin Coverage Levothyroxine Sodium (Levothyroxine Sodium 200 Mcg Tablet) 200 mcg PO DAILY@06 [facility] Last Admin: 07/04/23 05:46 Dose: 200 mcg Documented By: REJI Levothyroxine Sodium (Levothyroxine Sodium 25 Mcg Tablet) 25 mcg PO DAILY@06 [facility] Last Admin: 07/04/23 05:46 Dose: 25 mcg Documented By: REJI Methadone HCl (Methadone Hcl 20 Mg/2 Ml Oral.Conc) 85 mg PO DAILY [facility] Last Admin: 07/03/23 08:14 Dose: 85 mg Documented By: MICHELL Nicotine Polacrilex (Nicotine Polacrilex 2 Mg Gum) 2 mg BUCCAL Q2H PRN PRN Reason: Smoking Cessation Perphenazine (Perphenazine 4 Mg Tablet) 4 mg PO BEDTIME [facility] Last Admin: 07/03/23 21:15 Dose: 4 mg Documented By: REJI Sertraline HCl (Sertraline Hcl 100 Mg Tablet) 100 mg PO DAILY@0900 [facility] Last Admin: 07/03/23 08:15 Dose: 100 mg Documented By: MICHELL Sertraline HCl (Sertraline Hcl 25 Mg Tablet) 25 mg PO DAILY@09 [facility] Last Admin: 07/03/23 08:15 Dose: 25 mg Documented By: MICHELL Labs 07/02/23 05:12 07/03/23 11:18 Labs: Laboratory Results - last 24 hr 07/03/23 07/03/23 07/03/23 11:18 11:33 16:18 Anion Gap 11 L Estim Creat Clear Calc 73.7 Estimated GFR > 60 POC Glucose 119 H 175 H Random Glucose 107 Calcium 9.7 07/03/23 07/04/23 19:57 07:12 Anion Gap Estim Creat Clear Calc Estimated GFR POC Glucose 179 H 122 H Random Glucose Calcium Assessment and Plan (1) Acute respiratory failure with hypoxia and hypercapnia: Status: Acute (2) Community acquired pneumonia: Status: Acute Plan This is a 57-year-old female with underlying COPD on 4 L of supplemental oxygen, hepatitis-C/etoh cirrhosis, hypertension, hypothyroidism, hyperlipidemia, substance abuse on methadone who presented with shortness of breath and hypercapnic respiratory failure requiring intubation in the ED and was subsequently admitted to the ICU. Patient was treated with systemic glucocorticoids, nebulized bronchodilators, and acetazolamide and lasix with significant improvement, was extubated 06/30 and downgraded to the medical service 07/01. acute on chronic respiratory failure with hypercapnia and hypoxia due to COPD, pneumonia and fluid overload CT chest showing b/l lower lobe consolidation on baseline 4L supplemental oxygen s/p intubation s/p IV lasix on azetazolamide continue breathing treatments continue levaquin, started 06/30 blood cultures 03/29 coag neg staph, likely contaminant goal o2 saturation 87-90% to prevent hypercapnia hypokalemia s/p replacement follow BMP DM hold metformin follow POCs HTN bp controlled home meds on hold (olmesartan, norvasc, lisinopril) follow bp closely Mood resume home meds - zoloft, perphenazine TCP r/t liver dz. at baseline hypothyroidism continue synthroid OUD continue methadone tobacco dependence smoking cessation advised. dvt ppx - lovenox Attending Dr. Beltran Patient requires ongoing inpatient stay for management of pneumonia, hypercarbic/hypoxic respiratory failure requiring close monitoring of respiratory status Quality Stroke Does the patient have a stroke diagnosis?: No VTE Prior VTE?: No VTE Risk Level:: Medical - moderate - high VTE Device Contraindication: N/A - Device Ordered VTE Drug Contraindication: N/A - Med Ordered
[2023-07-04] MEDS: levoFLOXacin/D5W 750 MG/150 ML PIGGYBACK 100 MG IV (09:09)
[2023-07-04] MEDS: Enoxaparin Sodium 40 MG/0.4 ML SYRINGE SUBCUT (09:09)
[2023-07-04] MEDS: Sertraline HCL 25 MG TABLET PO (09:09)
[2023-07-04] MEDS: Sertraline HCL 100 MG TABLET PO (09:09)
[2023-07-04] MEDS: methADONE HCl 20 MG/2 ML ORAL.CONC 85 MG PO (09:09)
[2023-07-04] MEDS: Docusate Sodium 100 MG CAPSULE PO ×2 (09:10→21:43)
--- NOTE | 2023-07-04 10:38 | MHC.CM.PN ---
Pt has not yet been medically cleared, she is requiring further treatment for Pneumonia and hypoxic, hypercarbaric respiratory failure. DC plan is home, resume services, CM to follow and assist with DC plan.
[2023-07-04 11:50] LABS: Glucose, Whole Blood 169 mg/dL (60-115)
[2023-07-04] MEDS: Insulin Lispro 100 UNIT/ML 3 ML VIAL SUBCUT (12:15)
[2023-07-04 16:07] LABS: Glucose, Whole Blood 100 mg/dL (60-115)
[2023-07-04] MEDS: Acetaminophen 325 MG TABLET 975 MG PO (16:21)
[2023-07-04 20:36] LABS: Glucose, Whole Blood 138 mg/dL (60-115)
[2023-07-04] MEDS: Perphenazine 4 MG TABLET PO (21:42)
[2023-07-05] VITALS (11 sets, daily range): BP systolic 101–136; BP diastolic 58–75; PULSE 82–101; RESP 16–20; TEMP 36.1–37.2; O2SAT 85–92; BMI 30.9
--- NOTE | 2023-07-05 00:03 | PC.NURSE ---
CARE ASSUMED 7PM...ALERT..ORIENTED X3...RESPIRATIONS EASY...O2 9 L/M VIA MASK...SAO2 87-91%...MD ORDER FOR SAO2 GOAL 87-90%...PER REPORT PATIENT STRAIGHT CATH'D 10AM...BLADDER SCANNED 155ml 4PM...HAD NOT VOIDED SINCE...BLADDER SCANNED 10:30PM FOR 437ml...ASYMPTOMATIC....11:30PM OOB TO BEDSIDE COMMODE AND VOIDED 400ml CONCENTRATED URINE...DENIES ANY DISCOMFORT..RESTFUL..RESPIRATIONS EASY...
[2023-07-05] MEDS: Acetaminophen 325 MG TABLET 975 MG PO ×2 (04:19→16:24)
[2023-07-05] MEDS: Levothyroxine Sodium 200 MCG TABLET PO (04:19)
[2023-07-05] MEDS: Levothyroxine Sodium 25 MCG TABLET PO (04:19)
[2023-07-05] MEDS: Fluticasone/Vilanterol 200/25 BLST.W.DEV 1 PUFF INHALE (07:43)
[2023-07-05] MEDS: Albuterol/Iprat 2.5/0.5MG 3 ML AMPUL.NEB INHALE ×3 (07:43→19:28)
[2023-07-05 07:44] LABS: Glucose, Whole Blood 119 mg/dL (60-115)
[2023-07-05] MEDS: Enoxaparin Sodium 40 MG/0.4 ML SYRINGE SUBCUT (08:30)
[2023-07-05] MEDS: Docusate Sodium 100 MG CAPSULE PO ×2 (08:30→20:44)
[2023-07-05] MEDS: Sertraline HCL 100 MG TABLET PO (08:30)
[2023-07-05] MEDS: levoFLOXacin/D5W 750 MG/150 ML PIGGYBACK 100 MG IV (08:31)
[2023-07-05] MEDS: methADONE HCl 20 MG/2 ML ORAL.CONC 85 MG PO (08:31)
[2023-07-05] MEDS: Sertraline HCL 25 MG TABLET PO (08:31)
--- NOTE | 2023-07-05 10:17 | HO.PM.IMPN ---
Subjective Subjective Date of Service: 07/05/23 Interval History: Seen and examined this morning Follow-up for respiratory failure, pneumonia Patient awake alert, resting comfortably in bed. Reports ongoing cough productive of yellow phlegm and ongoing shortness of breath Review of Systems Review of Systems: Yes all other systems are reviewed and are negative Constitutional Constitutional: Denies chills and Denies fever(s) Cardiovascular Cardiovascular: Denies chest pain, Denies palpitations and Reports dyspnea Respiratory Respiratory: Reports cough and Reports dyspnea Endocrine Endocrine: Denies palpitations Physical Exam Vital Signs: Vital Signs: Last Vital Signs Temp 96.9 F 07/05/23 07:33 Pulse 101 H 07/05/23 07:49 Resp 16 07/05/23 07:49 BP 101/58 L 07/05/23 07:33 Pulse Ox 87 L 07/05/23 07:33 O2 Del Method Oxymask 07/05/23 07:33 O2 Flow Rate 7 07/05/23 07:33 FiO2 50 07/01/23 09:53 BMI result Body Mass Index 30.9 Appearing in no acute distress lung sounds exp wheezing heart regular rate rhythm, clear S1, S2 positive bowel sounds, abdomen is soft, nontender neuro patient is alert x3, no focal deficits Objective Data Active Medications Acetaminophen (Acetaminophen 325 Mg Tablet) 975 mg PO Q6H PRN PRN Reason: Pain, Moderate(Pain Scale 4-6) Last Admin: 07/05/23 04:19 Dose: 975 mg Documented By: LEVY Albuterol Sulfate (Albuterol Sulfate (0.083%) 2.5 Mg/3 Ml Vial.Neb) 2.5 mg INHALE Q4H PRN PRN Reason: Wheezing Albuterol/Ipratropium (Albuterol/Iprat 2.5/0.5mg 3 Ml Ampul.Neb) 3 ml INHALE RQ6H WHILE AWAKE [facility] Last Admin: 07/05/23 07:43 Dose: 3 ml Documented By: JOSE Docusate Sodium (Docusate Sodium 100 Mg Capsule) 100 mg PO BID [facility] Last Admin: 07/05/23 08:30 Dose: 100 mg Documented By: ULISSES Enoxaparin Sodium (Enoxaparin Sodium 40 Mg/0.4 Ml Syringe) 40 mg SUBCUT Q24H [facility] Last Admin: 07/05/23 08:30 Dose: 40 mg Documented By: ULISSES Fluticasone/Vilanterol (Fluticasone/Vilanterol 200/25 Blst.W.Dev) 1 puff INHALE RDAILY [facility] Last Admin: 07/05/23 07:43 Dose: 1 puff Documented By: JOSE Levofloxacin (Levaquin) 750 mg in 150 mls @ 100 mls/hr IV Q24H [facility] Last Admin: 07/05/23 08:31 Dose: 100 mls/hr Documented By: ULISSES Insulin Human Lispro (Insulin Lispro 100 Unit/Ml 3 Ml Vial) 0 unit SUBCUT QIDACHS [facility]; Protocol Last Admin: 07/05/23 07:40 Dose: Not Given Documented By: ULISSES Non-Admin Reason: No Insulin Coverage Levothyroxine Sodium (Levothyroxine Sodium 200 Mcg Tablet) 200 mcg PO DAILY@0600 [facility] Last Admin: 07/05/23 04:19 Dose: 200 mcg Documented By: LEVY Levothyroxine Sodium (Levothyroxine Sodium 25 Mcg Tablet) 25 mcg PO DAILY@0600 [facility] Last Admin: 07/05/23 04:19 Dose: 25 mcg Documented By: LEVY Methadone HCl (Methadone Hcl 20 Mg/2 Ml Oral.Conc) 85 mg PO DAILY [facility] Last Admin: 07/05/23 08:31 Dose: 85 mg Documented By: ULISSES Nicotine Polacrilex (Nicotine Polacrilex 2 Mg Gum) 2 mg BUCCAL Q2H PRN PRN Reason: Smoking Cessation Perphenazine (Perphenazine 4 Mg Tablet) 4 mg PO BEDTIME [facility] Last Admin: 07/04/23 21:42 Dose: 4 mg Documented By: LEVY Sertraline HCl (Sertraline Hcl 100 Mg Tablet) 100 mg PO DAILY@0900 [facility] Last Admin: 07/05/23 08:30 Dose: 100 mg Documented By: ULISSES Sertraline HCl (Sertraline Hcl 25 Mg Tablet) 25 mg PO DAILY@0900 [facility] Last Admin: 07/05/23 08:31 Dose: 25 mg Documented By: ULISSES Labs 07/02/23 05:12 07/03/23 11:18 Labs: Laboratory Results - last 24 hr 07/04/23 07/04/23 07/04/23 11:43 15:15 20:27 POC Glucose 169 H 100 138 H 07/05/23 07:35 POC Glucose 119 H Assessment and Plan (1) Acute respiratory failure with hypoxia and hypercapnia: Status: Acute (2) Community acquired pneumonia: Status: Acute Plan This is a 57-year-old female with underlying COPD on 4 L of supplemental oxygen, hepatitis-C/etoh cirrhosis, hypertension, hypothyroidism, hyperlipidemia, substance abuse on methadone who presented with shortness of breath and hypercapnic respiratory failure requiring intubation in the ED and was subsequently admitted to the ICU. Patient was treated with systemic glucocorticoids, nebulized bronchodilators, and acetazolamide and lasix with significant improvement, was extubated 06/30 and downgraded to the medical service 07/01. Acute on chronic respiratory failure with hypercapnia and hypoxia due to COPD, pneumonia and fluid overload CT chest showing b/l lower lobe consolidation on baseline 4L supplemental oxygen s/p intubation s/p IV lasix on azetazolamide continue breathing treatments continue levaquin, started 06/30 blood cultures 03/29 coag neg staph, likely contaminant goal o2 saturation 87-90% to prevent hypercapnia Home o2 evaluation ordered hypokalemia s/p replacement follow BMP DM hold metformin follow POCs HTN bp controlled home meds on hold (olmesartan, norvasc, lisinopril) follow bp closely Mood resume home meds - zoloft, perphenazine TCP r/t liver dz. at baseline hypothyroidism continue synthroid OUD continue methadone tobacco dependence smoking cessation advised. dvt ppx - lovenox Attending Dr. Beltran DISPO PT consult Patient requires ongoing inpatient stay for management of pneumonia, hypercarbic/hypoxic respiratory failure requiring close monitoring of respiratory status Quality Stroke Does the patient have a stroke diagnosis?: No VTE Prior VTE?: No VTE Risk Level:: Medical - moderate - high VTE Device Contraindication: N/A - Device Ordered VTE Drug Contraindication: N/A - Med Ordered
[2023-07-05 11:30] LABS: Glucose, Whole Blood 119 mg/dL (60-115)
--- NOTE | 2023-07-05 13:01 | MHC.CM.PN ---
CM met with pt to discuss DC plan. Pt said she has [employer] services and O2 at home, and she lives on a third floor apt. She is on a waiting list for housing to get into a different Apt., [place] called [facility], to inquire if there is anything that can be done to move her up the waiting list due to her medical condition, left message requesting a call back. Pt [facility] her [facility] from [facility],
[2023-07-05 16:09] LABS: Glucose, Whole Blood 156 mg/dL (60-115)
[2023-07-05] MEDS: Insulin Lispro 100 UNIT/ML 3 ML VIAL SUBCUT ×2 (16:27→20:44)
[2023-07-05] MEDS: Sennosides 8.6 MG TABLET 17.2 MG PO (16:46)
[2023-07-05] MEDS: polyethylene glycoL 3350 17 GM POWD.PACK PO (16:46)
[2023-07-05 20:31] LABS: Glucose, Whole Blood 171 mg/dL (60-115)
[2023-07-05] MEDS: Perphenazine 4 MG TABLET PO (20:44)
[2023-07-06] VITALS (9 sets, daily range): BP systolic 101–140; BP diastolic 61–84; PULSE 88–94; RESP 12–18; TEMP 36.1–36.6; O2SAT 88–98; BMI 30.8
[2023-07-06] MEDS: Acetaminophen 325 MG TABLET 975 MG PO ×3 (01:27→18:06)
[2023-07-06] MEDS: Levothyroxine Sodium 25 MCG TABLET PO (03:57)
[2023-07-06] MEDS: Levothyroxine Sodium 200 MCG TABLET PO (03:57)
--- NOTE | 2023-07-06 07:21 | P.PNIM_ITS ---
Subjective Subjective Date of Service: 07/06/23 Interval History: Seen and examined this morning Follow-up for respiratory failure, pneumonia Patient awake alert, resting comfortably in bed. Reports ongoing cough productive of yellow phlegm and ongoing shortness of breath Review of Systems Review of Systems: Yes all other systems are reviewed and are negative Constitutional Constitutional: Denies chills and Denies fever(s) Cardiovascular Cardiovascular: Denies chest pain, Denies palpitations and Reports dyspnea Respiratory Respiratory: Reports cough and Reports dyspnea Endocrine Endocrine: Denies palpitations Physical Exam 2 Vital Signs: Vital Signs: Last Vital Signs Temp 97.1 F 07/06/23 03:13 Pulse 91 07/06/23 03:13 Resp 18 07/06/23 03:13 BP 115/61 07/06/23 03:13 Pulse Ox 92 07/06/23 03:13 O2 Del Method Nasal Cannula, Ox ymask 07/06/23 03:13 O2 Flow Rate 5 07/06/23 03:13 FiO2 50 07/01/23 09:53 BMI result Body Mass Index 30.8 Appearing in no acute distress lung sounds are clear to auscultation heart regular rate rhythm, clear S1, S2 positive bowel sounds, abdomen is soft, nontender neuro patient is alert x3, no focal deficits Objective Data Active Medications Acetaminophen (Acetaminophen 325 Mg Tablet) 975 mg PO Q6H PRN PRN Reason: Pain, Moderate(Pain Scale 4-6) Last Admin: 07/06/23 01:27 Dose: 975 mg Documented By: REJI Albuterol Sulfate (Albuterol Sulfate (0.083%) 2.5 Mg/3 Ml Vial.Neb) 2.5 mg INHALE Q4H PRN PRN Reason: Wheezing Albuterol/Ipratropium (Albuterol/Iprat 2.5/0.5mg 3 Ml Ampul.Neb) 3 ml INHALE RQ6H WHILE AWAKE [facility] Last Admin: 07/05/23 19:28 Dose: 3 ml Documented By: LYNNE Bisacodyl (Bisacodyl 10 Mg Supp.Rect) 10 mg [place] DAILY PRN PRN Reason: Constipation Docusate Sodium (Docusate Sodium 100 Mg Capsule) 100 mg PO BID [facility] Last Admin: 07/05/23 20:44 Dose: 100 mg Documented By: REJI Enoxaparin Sodium (Enoxaparin Sodium 40 Mg/0.4 Ml Syringe) 40 mg SUBCUT Q24H [facility] Last Admin: 07/05/23 08:30 Dose: 40 mg Documented By: ULISSES Fluticasone/Vilanterol (Fluticasone/Vilanterol 200/25 Blst.W.Dev) 1 puff INHALE RDAILY [facility] Last Admin: 07/05/23 07:43 Dose: 1 puff Documented By: JOSE Levofloxacin (Levaquin) 750 mg in 150 mls @ 100 mls/hr IV Q24H [facility] Last Infusion: 07/05/23 10:26 Dose: Infused Documented By: ULISSES Insulin Human Lispro (Insulin Lispro 100 Unit/Ml 3 Ml Vial) 0 unit SUBCUT QIDACHS [facility]; Protocol Last Admin: 07/05/23 20:44 Dose: 2 unit Documented By: REJI Levothyroxine Sodium (Levothyroxine Sodium 200 Mcg Tablet) 200 mcg PO DAILY@0600 [facility] Last Admin: 07/06/23 03:57 Dose: 200 mcg Documented By: REJI Levothyroxine Sodium (Levothyroxine Sodium 25 Mcg Tablet) 25 mcg PO DAILY@0600 [facility] Last Admin: 07/06/23 03:57 Dose: 25 mcg Documented By: REJI Methadone HCl (Methadone Hcl 20 Mg/2 Ml Oral.Conc) 85 mg PO DAILY [facility] Last Admin: 07/05/23 08:31 Dose: 85 mg Documented By: ULISSES Nicotine Polacrilex (Nicotine Polacrilex 2 Mg Gum) 2 mg BUCCAL Q2H PRN PRN Reason: Smoking Cessation Perphenazine (Perphenazine 4 Mg Tablet) 4 mg PO BEDTIME [facility] Last Admin: 07/05/23 20:44 Dose: 4 mg Documented By: REJI Polyethylene Glycol (Polyethylene Glycol 3350 17 Gm Powd.Pack) 17 gm PO DAILY PRN PRN Reason: Constipation Last Admin: 07/05/23 16:46 Dose: 17 gm Documented By: LESSARL Senna (Sennosides 8.6 Mg Tablet) 17.2 mg PO Q24H PRN PRN Reason: Constipation Last Admin: 07/05/23 16:46 Dose: 17.2 mg Documented By: ELIZABETH Sertraline HCl (Sertraline Hcl 100 Mg Tablet) 100 mg PO DAILY@09 [facility] Last Admin: 07/05/23 08:30 Dose: 100 mg Documented By: ULISSES Sertraline HCl (Sertraline Hcl 25 Mg Tablet) 25 mg PO DAILY@0900 [facility] Last Admin: 07/05/23 08:31 Dose: 25 mg Documented By: ULISSES Labs 07/02/23 05:12 07/03/23 11:18 Labs: Laboratory Results - last 24 hr 07/05/23 07/05/23 07/05/23 07:35 11:25 15:46 POC Glucose 119 H 119 H 156 H 07/05/23 20:24 POC Glucose 171 H Microbiology Microbiology Results: Microbiology 06/30/23 18:16 Blood Culture - Final Blood - Venous No growth after 5 days. Assessment and Plan (1) Acute respiratory failure with hypoxia and hypercapnia: Status: Acute (2) Community acquired pneumonia: Status: Acute Plan This is a 57-year-old female with underlying COPD on 4 L of supplemental oxygen, hepatitis-C/etoh cirrhosis, hypertension, hypothyroidism, hyperlipidemia, substance abuse on methadone who presented with shortness of breath and hypercapnic respiratory failure requiring intubation in the ED and was subsequently admitted to the ICU. Patient was treated with systemic glucocorticoids, nebulized bronchodilators, and acetazolamide and lasix with significant improvement, was extubated 06/30 and downgraded to the medical service 07/01. Acute on chronic respiratory failure with hypercapnia and hypoxia due to COPD, pneumonia and fluid overload CT chest showed b/l lower lobe consolidation s/p intubation s/p IV lasix on azetazolamide continue levaquin, started 06/30 on baseline 4-5L supplemental oxygen goal o2 saturation 87-90% to prevent hypercapnia still hypoxic despite oxygen, will consult pulm hypokalemia s/p replacement follow BMP DM2 hold metformin follow POCs HTN bp well controlled home meds on hold (olmesartan, norvasc, lisinopril) follow bp closely Mood resume home meds - zoloft, perphenazine TCP r/t liver dz. at baseline hypothyroidism continue synthroid OUD continue methadone tobacco dependence smoking cessation advised. dvt ppx - lovenox Attending Dr. Beltran DISPO PT consult Patient requires ongoing inpatient stay for management of pneumonia, hypercarbic/hypoxic respiratory failure requiring close monitoring of respiratory status Quality Stroke Does the patient have a stroke diagnosis?: No VTE Prior VTE?: No VTE Risk Level:: Medical - moderate - high VTE Device Contraindication: N/A - Device Ordered VTE Drug Contraindication: N/A - Med Ordered
[2023-07-06 07:43] LABS: Glucose, Whole Blood 122 mg/dL (60-115)
[2023-07-06] MEDS: Sertraline HCL 100 MG TABLET PO (08:00)
[2023-07-06] MEDS: Sertraline HCL 25 MG TABLET PO (08:00)
[2023-07-06] MEDS: Docusate Sodium 100 MG CAPSULE PO ×2 (08:00→21:07)
[2023-07-06] MEDS: polyethylene glycoL 3350 17 GM POWD.PACK PO (08:01)
[2023-07-06] MEDS: methADONE HCl 20 MG/2 ML ORAL.CONC 85 MG PO (08:01)
[2023-07-06] MEDS: Enoxaparin Sodium 40 MG/0.4 ML SYRINGE SUBCUT (08:01)
[2023-07-06] MEDS: levoFLOXacin/D5W 750 MG/150 ML PIGGYBACK 100 MG IV (08:08)
[2023-07-06] MEDS: Fluticasone/Vilanterol 200/25 BLST.W.DEV 1 PUFF INHALE (08:11)
[2023-07-06] MEDS: Albuterol/Iprat 2.5/0.5MG 3 ML AMPUL.NEB INHALE ×3 (08:13→19:11)
[2023-07-06 10:05] LABS: Hematocrit 53.7 % (37.0-47.0); Hemoglobin 16.1 g/dl (12.0-16.0); Mean Corpuscular Hemoglobin 27.5 pg (27.0-33.0); Mean Corpuscular Volume 91.8 fL (80.0-98.0); PLT CLUMP 1; Red Blood Count 5.85 X10*6/uL (4.20-5.50)
[2023-07-06 10:24] LABS: Anion Gap 11 (12-20); Blood Urea Nitrogen 11 mg/dL (9-16); Calcium 9.1 mg/dL (8.4-10.2); Carbon Dioxide 29 mmol/L (22-29); Chloride 102 mmol/L (96-108); Creatinine Clr Calc Pharmacy 90.9; Estimated Glomerular Filt Rate > 60; Glucose Random 181 mg/dL (60-115); Potassium 4.4 mmol/L (3.3-5.1); Sodium 138 mmol/L (135-145)
--- NOTE | 2023-07-06 10:44 | MHC.CM.PN ---
Rec from [facility] and PT is pulmonary STR, Pt agreed to go, and referrals sent for pulmonary and regular STR, only [facility] following. Pt has used [facility] following prior hosp. stay, referral sent to them. Not medically cleared yet, O2 need currently 5L. DC plan will likely be home with services. CM to follow and assist with DC plan.
[2023-07-06 11:12] LABS: Glucose, Whole Blood 187 mg/dL (60-115)
[2023-07-06 11:45] LABS: White Blood Count 5.7 X10*3/uL (4.8-10.8)
[2023-07-06] MEDS: Insulin Lispro 100 UNIT/ML 3 ML VIAL SUBCUT ×2 (13:27→21:07)
--- NOTE | 2023-07-06 14:13 | P.CONPL_ITS ---
History of Present Illness History of Present Illness Consult date: 07/06/23 Chief complaint: Hypoxic Hypercarbaric resp failure, 02 poisioning Narrative: 57-year-old lady with underlying history of COPD 4 L of supplemental oxygen, hepatitis-C, hypertension, hypothyroidism, hyperlipidemia, substance abuse, now on methadone admitted on of 06/30/2023 to intensive care unit with acute hypercapnic respiratory failure requiring ventilatory support. Patient started on empiric antibiotics, systemic glucocorticoids, nebulized bronchodilators, diuretics including acetazolamide. Extubated uneventfully on 07/01/2023. However, she still remains with increased oxygen requirements with OxyMask at 3- 4 L or nasal cannula at 6-7 L. Review of Systems 2 Constitutional: Constitutional: Denies daytime sleepiness, Denies excessive sweating, Denies fatigue, Denies fever(s), Denies lethargy, Denies malaise, Denies night sweats, Denies snoring and Denies weight loss Eyes: Eyes: Denies blurry vision and Denies itchy eyes ENT: Denies nasal congestion, Denies post nasal drip, Denies sinus pain, Denies sinus pressure and Denies other ( Thrush) Cardiovascular: Cardiovascular: Denies chest pain, Denies pedal edema, Denies dyspnea, Reports dyspnea on exertion, Denies orthopnea and Denies paroxysmal nocturnal dyspnea Respiratory: Respiratory: Denies cough, Denies hemoptysis, Denies excessive phlegm production, Denies dyspnea, Reports dyspnea on exertion, Denies snoring and Denies wheezing Gastrointestinal: Gastrointestinal: Denies abdominal pain and Denies heartburn Musculoskeletal: Musculoskeletal: Denies myalgias, Denies arthralgias and Denies joint swelling Integumentary/Breasts: Skin/Breast: Denies rash Neurologic: Denies memory loss and Denies seizure-like activity Psychiatric: Psychiatric: Denies abnormal sleep pattern, Denies anxiety and Denies memory loss Endocrine: Endocrine: Denies excessive sweating, Denies fatigue and Denies heat intolerance Hematologic/Lymphatic: Hematologic/Lymphatic: Denies easy bruising Allergic/Immunologic: Allergic/Immunologic: Denies itchy eyes, Denies seasonal rhinorrhea and Denies wheezing PMFSH Past Medical History Medical History Acute respiratory failure, unspecified whether with hypoxia or hypercapnia Hyperlipidemia Psychosis Hypoxia Acute exacerbation of chronic obstructive airways disease Hepatitis C HTN (hypertension) Hypothyroid COPD (chronic obstructive pulmonary disease) Family History Family History Father HTN (hypertension) Mother Gastritis Ovarian cancer Arthritis Son Thyroid disease Other Hypothyroid Social History Social History Household Members: Unknown / Unable to assess Housing: Unknown / Unable to assess Alcohol intake: current Alcohol intake frequency: does not drink Patient Tobacco Use Status: Tobacco use Unknown Tobacco use type: Cigarette Cigarette Packs Per Day: 1 Cigarettes Per Day: 20.0 Smoked in Last 30 Days: Yes e-Cigarette/Vaping Use: Never Used Second Hand Smoke Exposure: No Use of substances other than those prescribed or required for medical reasons: Unable to respond Substance Use Type: Heroin Currently Displaying Signs/Symptoms of Drug Intoxication Withdrawal: No Advance Directives: No Advance Directives Information Provided: No Recently lost weight without trying: Unsure Nutrition Risks: No Nutritional Risk Patient : No : No Poor oral hygiene: Yes service: No Current occupational status: unemployed Meds Allergies Allergy/AdvReac Type Severity Reaction Status Date / Time Penicillins [PENICILLINS] Allergy Unknown RED ITCHY Verified 06/30/23 17:45 RASH SEAFOOD Allergy Unknown FEVER Uncoded 06/22/23 12:46 SWELLING Active Medications: Current Medications Acetaminophen (Acetaminophen 325 Mg Tablet) 975 mg PO Q6H PRN PRN Reason: Pain, Moderate(Pain Scale 4-6) Last Admin: 07/06/23 08:00 Dose: 975 mg Albuterol Sulfate (Albuterol Sulfate (0.083%) 2.5 Mg/3 Ml Vial.Neb) 2.5 mg INHALE Q4H PRN PRN Reason: Wheezing Albuterol/Ipratropium (Albuterol/Iprat 2.5/0.5mg 3 Ml Ampul.Neb) 3 ml INHALE RQ6H WHILE AWAKE [facility] Last Admin: 07/06/23 08:13 Dose: 3 ml Bisacodyl (Bisacodyl 10 Mg Supp.Rect) 10 mg TX DAILY PRN PRN Reason: Constipation Docusate Sodium (Docusate Sodium 100 Mg Capsule) 100 mg PO BID [facility] Last Admin: 07/06/23 08:00 Dose: 100 mg Enoxaparin Sodium (Enoxaparin Sodium 40 Mg/0.4 Ml Syringe) 40 mg SUBCUT Q24H [facility] Last Admin: 07/06/23 08:01 Dose: 40 mg Fluticasone/Vilanterol (Fluticasone/Vilanterol 200/25 Blst.W.Dev) 1 puff INHALE RDAILY [facility] Last Admin: 07/06/23 08:11 Dose: 1 puff Furosemide (Furosemide 20 Mg/2 Ml Vial) 20 mg IVPUSH BID@0900,1800 [facility]; Protocol Insulin Human Lispro (Insulin Lispro 100 Unit/Ml 3 Ml Vial) 0 unit SUBCUT QIDACHS [facility]; Protocol Last Admin: 07/06/23 13:27 Dose: 2 unit Levofloxacin (Levofloxacin 750 Mg Tablet) 750 mg PO Q24H [facility] Levothyroxine Sodium (Levothyroxine Sodium 200 Mcg Tablet) 200 mcg PO DAILY@0600 [facility] Last Admin: 07/06/23 03:57 Dose: 200 mcg Levothyroxine Sodium (Levothyroxine Sodium 25 Mcg Tablet) 25 mcg PO DAILY@0600 [facility] Last Admin: 07/06/23 03:57 Dose: 25 mcg Methadone HCl (Methadone Hcl 20 Mg/2 Ml Oral.Conc) 85 mg PO DAILY [facility] Last Admin: 07/06/23 08:01 Dose: 85 mg Nicotine Polacrilex (Nicotine Polacrilex 2 Mg Gum) 2 mg BUCCAL Q2H PRN PRN Reason: Smoking Cessation Perphenazine (Perphenazine 4 Mg Tablet) 4 mg PO BEDTIME [facility] Last Admin: 07/05/23 20:44 Dose: 4 mg Polyethylene Glycol (Polyethylene Glycol 3350 17 Gm Powd.Pack) 17 gm PO DAILY PRN PRN Reason: Constipation Last Admin: 07/06/23 08:01 Dose: 17 gm Senna (Sennosides 8.6 Mg Tablet) 17.2 mg PO Q24H PRN PRN Reason: Constipation Last Admin: 07/05/23 16:46 Dose: 17.2 mg Sertraline HCl (Sertraline Hcl 100 Mg Tablet) 100 mg PO DAILY@0900 [facility] Last Admin: 07/06/23 08:00 Dose: 100 mg Sertraline HCl (Sertraline Hcl 25 Mg Tablet) 25 mg PO DAILY@0900 [facility] Last Admin: 07/06/23 08:00 Dose: 25 mg Home Medications ?Medication ?Instructions ?Recorded ?Confirmed ?Last Taken ?Type albuterol sulfate 90 mcg/actuation 2 puff inhalation Q6H PRN 03/11/20 07/01/23 Unknown History aerosol inhaler (ProAir HFA) Shortness Of Breath Or Wheezing lisinopril 40 mg tablet 40 mg PO DAILY 03/11/20 07/01/23 06/30/23 History rosuvastatin 20 mg tablet 20 mg PO DAILY 03/11/20 07/01/23 06/29/23 History perphenazine 4 mg tablet 4 mg PO BEDTIME 09/24/21 07/01/23 06/29/23 History amlodipine 10 mg tablet 10 mg PO DAILY 10/01/22 07/01/23 06/30/23 History levothyroxine 200 mcg tablet 200 mcg PO DAILY 10/01/22 07/01/23 06/30/23 History sertraline 25 mg tablet 25 mg PO DAILY@0900 10/01/22 07/01/23 06/30/23 History umeclidinium 62.5 mcg/actuation 1 inh inhalation DAILY 10/01/22 07/01/23 06/30/23 History blister powder for inhalation (Incruse Ellipta) fluticasone 500 mcg-salmeterol 50 1 ea inhalation BID 04/20/23 07/01/23 06/30/23 History mcg/dose blistr powdr for inhalation (Advair Diskus) hydroxyzine pamoate 50 mg capsule 50 mg PO BID PRN Itching 04/20/23 07/01/23 Unknown History ipratropium 0.5 mg-albuterol 3 mg 3 ml inhalation QID PRN wheezing 04/20/23 07/01/23 Unknown History (2.5 mg base)/3 mL nebulization soln omega-3 acid ethyl esters 1 gram 1 cap PO BID@1200,1800 04/20/23 07/01/23 06/30/23 History capsule sertraline 100 mg tablet 100 mg PO DAILY@0900 04/20/23 07/01/23 06/30/23 History methadone 10 mg/mL oral concentrate 85 mg PO DAILY 04/21/23 07/01/23 06/30/23 History docusate sodium 100 mg capsule 100 mg PO BID constipation 07/01/23 07/01/23 06/30/23 History metformin 500 mg tablet,extended 500 mg PO DAILY@1800 07/01/23 07/01/23 06/29/23 History release 24 hr nicotine (polacrilex) 2 mg gum 2 mg PO Q2H PRN Smoking Cessation 07/01/23 07/01/23 Unknown History olmesartan 40 mg tablet 40 mg PO DAILY@1200 07/01/23 07/01/23 06/30/23 History sennosides 8.6 mg tablet (senna) 17.2 mg PO BEDTIME PRN constipation 07/01/23 07/01/23 Unknown History Physical Exam 2 Vital Signs: Vital Signs: Last Vital Signs Temp 98 F 07/06/23 11:21 Pulse 89 07/06/23 11:21 Resp 18 07/06/23 11:21 BP 101/63 07/06/23 11:21 Pulse Ox 90 L 07/06/23 11:21 O2 Del Method Nasal Cannula 07/06/23 11:21 O2 Flow Rate 7 07/06/23 11:21 FiO2 50 07/01/23 09:53 BMI result Body Mass Index 30.8 Const: General: no acute distress and alert Nutritional Appearance: not obese Orientation/consciousness: Other orientation findings ( oriented) HEENT: Head: Yes atraumatic Eyes: General: appearance normal, both eyes and all related structures S clerae: sclerae normal EOM: EOMs intact bilaterally Neck: Neck: Yes supple Lymphatic: no lymphadenopathy noted Resp: Effort & Inspection: normal respiratory effort and no use of accessory muscles Auscultation: clear to auscultation bilaterally Cardio: Rate: regular rate Rhythm: regular rhythm Heart sounds: no gallops, no murmurs and no rubs Skin: General skin exam: other ( warm) Extrem: General: No clubbing, No cyanosis and No edema Results Laboratory Findings 07/06/23 09:12 07/06/23 09:12 ABG, PT/INR, D-dimer: PT/INR, D-dimer PT 10.7 SEC (11.1-13.3) L 06/30/23 18:16 INR 0.9 (0.9-1.1) 06/30/23 18:16 Abnormal lab findings: Abnormal Labs 06/30/23 06/30/23 06/30/23 18:16 18:20 19:39 RBC 6.16 H Hgb 17.1 H Hct 56.9 H MCHC 30.1 L RDW 16.8 H Plt Count 102 L D Neut % (Auto) Lymph % (Auto) Traverse % (Auto) Lymph # (Auto) Traverse # (Auto) PT 10.7 L ABG pH at Pt Temp ABG pCO2 at Pt Temp ABG pO2 at Pt Temp ABG HCO3 VBG HCO3 42 H 41 H Potassium Chloride 94 L Carbon Dioxide 43 H* Anion Gap 8 L BUN POC Glucose Random Glucose 116 H Phosphorus Alkaline Phosphatase 122 H Albumin Urine Protein Urine Blood Urine RBC 06/30/23 06/30/23 07/01/23 22:42 23:35 04:47 RBC Hgb Hct MCHC RDW Plt Count Neut % (Auto) Lymph % (Auto) Traverse % (Auto) Lymph # (Auto) Traverse # (Auto) PT ABG pH at Pt Temp 7.16 L* ABG pCO2 at Pt Temp 112 H* ABG pO2 at Pt Temp ABG HCO3 40 H VBG HCO3 39 H Potassium Chloride Carbon Dioxide Anion Gap BUN POC Glucose Random Glucose Phosphorus Alkaline Phosphatase Albumin Urine Protein 30 (1+) H Urine Blood Large (3+) H Urine RBC 3-5 H 07/01/23 07/01/23 07/02/23 04:49 12:16 05:12 RBC 5.54 H 5.73 H Hgb 16.1 H Hct 51.1 H 52.3 H MCHC 29.7 L 30.8 L RDW 16.3 H 17.4 H Plt Count 95 L 99 L Neut % (Auto) 90.8 H 73.4 H Lymph % (Auto) 8.3 L 18.9 L Traverse % (Auto) 0.6 L Lymph # (Auto) 0.5 L Traverse # (Auto) 0.0 L PT ABG pH at Pt Temp ABG pCO2 at Pt Temp 68 H* ABG pO2 at Pt Temp 45 L* ABG HCO3 40 H VBG HCO3 Potassium 3.2 L Chloride Carbon Dioxide 37 H 33 H Anion Gap 11 L 8 L BUN POC Glucose Random Glucose 187 H 144 H Phosphorus 2.3 L Alkaline Phosphatase Albumin 3.1 L Urine Protein Urine Blood Urine RBC 07/02/23 07/02/23 07/02/23 05:22 11:35 15:55 RBC Hgb Hct MCHC RDW Plt Count Neut % (Auto) Lymph % (Auto) Traverse % (Auto) Lymph # (Auto) Traverse # (Auto) PT ABG pH at Pt Temp ABG pCO2 at Pt Temp ABG pO2 at Pt Temp ABG HCO3 VBG HCO3 33 H Potassium Chloride Carbon Dioxide Anion Gap BUN POC Glucose 172 H 125 H Random Glucose Phosphorus Alkaline Phosphatase Albumin Urine Protein Urine Blood Urine RBC 07/02/23 07/03/23 07/03/23 19:51 07:04 11:18 RBC Hgb Hct MCHC RDW Plt Count Neut % (Auto) Lymph % (Auto) Traverse % (Auto) Lymph # (Auto) Traverse # (Auto) PT ABG pH at Pt Temp ABG pCO2 at Pt Temp ABG pO2 at Pt Temp ABG HCO3 VBG HCO3 29 H Potassium Chloride Carbon Dioxide Anion Gap 11 L BUN 21 H POC Glucose 156 H Random Glucose Phosphorus Alkaline Phosphatase Albumin Urine Protein Urine Blood Urine RBC 07/03/23 07/03/23 07/03/23 11:33 16:18 19:57 RBC Hgb Hct MCHC RDW Plt Count Neut % (Auto) Lymph % (Auto) Traverse % (Auto) Lymph # (Auto) Traverse # (Auto) PT ABG pH at Pt Temp ABG pCO2 at Pt Temp ABG pO2 at Pt Temp ABG HCO3 VBG HCO3 Potassium Chloride Carbon Dioxide Anion Gap BUN POC Glucose 119 H 175 H 179 H Random Glucose Phosphorus Alkaline Phosphatase Albumin Urine Protein Urine Blood Urine RBC 07/04/23 07/04/23 07/04/23 07:12 11:43 20:27 RBC Hgb Hct MCHC RDW Plt Count Neut % (Auto) Lymph % (Auto) Traverse % (Auto) Lymph # (Auto) Traverse # (Auto) PT ABG pH at Pt Temp ABG pCO2 at Pt Temp ABG pO2 at Pt Temp ABG HCO3 VBG HCO3 Potassium Chloride Carbon Dioxide Anion Gap BUN POC Glucose 122 H 169 H 138 H Random Glucose Phosphorus Alkaline Phosphatase Albumin Urine Protein Urine Blood Urine RBC 07/05/23 07/05/23 07/05/23 07:35 11:25 15:46 RBC Hgb Hct MCHC RDW Plt Count Neut % (Auto) Lymph % (Auto) Traverse % (Auto) Lymph # (Auto) Traverse # (Auto) PT ABG pH at Pt Temp ABG pCO2 at Pt Temp ABG pO2 at Pt Temp ABG HCO3 VBG HCO3 Potassium Chloride Carbon Dioxide Anion Gap BUN POC Glucose 119 H 119 H 156 H Random Glucose Phosphorus Alkaline Phosphatase Albumin Urine Protein Urine Blood Urine RBC 07/05/23 07/06/23 07/06/23 20:24 07:39 09:12 RBC 5.85 H Hgb 16.1 H Hct 53.7 H MCHC 30.0 L RDW 18.0 H Plt Count Neut % (Auto) Lymph % (Auto) Traverse % (Auto) Lymph # (Auto) Traverse # (Auto) PT ABG pH at Pt Temp ABG pCO2 at Pt Temp ABG pO2 at Pt Temp ABG HCO3 VBG HCO3 Potassium Chloride Carbon Dioxide Anion Gap 11 L BUN POC Glucose 171 H 122 H Random Glucose 181 H Phosphorus Alkaline Phosphatase Albumin Urine Protein Urine Blood Urine RBC 07/06/23 11:02 RBC Hgb Hct MCHC RDW Plt Count Neut % (Auto) Lymph % (Auto) Traverse % (Auto) Lymph # (Auto) Traverse # (Auto) PT ABG pH at Pt Temp ABG pCO2 at Pt Temp ABG pO2 at Pt Temp ABG HCO3 VBG HCO3 Potassium Chloride Carbon Dioxide Anion Gap BUN POC Glucose 187 H Random Glucose Phosphorus Alkaline Phosphatase Albumin Urine Protein Urine Blood Urine RBC Microbiology: Microbiology 06/30/23 18:16 Blood - Venous Blood Culture - Final No growth after 5 days. 06/30/23 18:14 Blood - Venous Blood Culture - Final Coag negative Staphylococcus 07/01/23 01:29 Sputum - Suctioned Gram Stain - Final 07/01/23 01:29 Sputum - Suctioned Sputum Culture - Final Assessment and Plan (1) COPD (chronic obstructive pulmonary disease): Status: Acute (2) Acute respiratory failure with hypoxia and hypercapnia: Status: Acute Plan Impression: 57-year-old lady with underlying chronic hypoxic and hypercapnic respiratory failure with CO2 retention on 4-6 L of supplemental oxygen admitted with acute on chronic hypoxic and hypercapnic respiratory failure initially requiring ventilatory support, now back to nasal cannula. However, patient still with elevated oxygen requirements. Somewhat improved with diuresis, renal indices and bicarbonate are still below the baseline. Recommendations: Consider further diuresis until bicarbonate increases over 30 and creatinine comes up to baseline of around 1. Agree with nebulized bronchodilators and empiric CAP coverage. Procedures Date of Service Date of Service: 07/06/23
[2023-07-06 16:18] LABS: Glucose, Whole Blood 125 mg/dL (60-115)
[2023-07-06] MEDS: Furosemide 20 MG/2 ML VIAL IVPUSH (18:08)
[2023-07-06 20:45] LABS: Glucose, Whole Blood 215 mg/dL (60-115)
[2023-07-06] MEDS: Perphenazine 4 MG TABLET PO (21:07)
[2023-07-07] MEDS: Acetaminophen 325 MG TABLET 975 MG PO ×2 (00:13→14:22)
[2023-07-07 03:34] VITALS: BP 140/76; PULSE 87; RESP 16; TEMP 36.3; O2SAT 91
[2023-07-07] MEDS: Levothyroxine Sodium 25 MCG TABLET PO (04:40)
[2023-07-07] MEDS: Levothyroxine Sodium 200 MCG TABLET PO (04:40)
[2023-07-07 06:00] VITALS: BMI 30.5
[2023-07-07 06:52] VITALS: BP 140/78; PULSE 82; RESP 20; TEMP 36.1; O2SAT 90
[2023-07-07 07:24] LABS: Glucose, Whole Blood 150 mg/dL (60-115)
[2023-07-07] MEDS: Albuterol/Iprat 2.5/0.5MG 3 ML AMPUL.NEB INHALE ×2 (07:43→14:12)
[2023-07-07] MEDS: Fluticasone/Vilanterol 200/25 BLST.W.DEV 1 PUFF INHALE (07:43)
[2023-07-07 07:45] VITALS: PULSE 82; RESP 20; O2SAT 90
[2023-07-07] MEDS: Sertraline HCL 100 MG TABLET PO (08:54)
[2023-07-07] MEDS: levoFLOXacin 750 MG TABLET PO (08:54)
[2023-07-07] MEDS: Enoxaparin Sodium 40 MG/0.4 ML SYRINGE SUBCUT (08:54)
[2023-07-07] MEDS: methADONE HCl 20 MG/2 ML ORAL.CONC 85 MG PO (08:54)
[2023-07-07] MEDS: Insulin Lispro 100 UNIT/ML 3 ML VIAL SUBCUT (08:55)
[2023-07-07] MEDS: Furosemide 20 MG/2 ML VIAL IVPUSH (08:55)
[2023-07-07] MEDS: Sertraline HCL 25 MG TABLET PO (08:55)
[2023-07-07] MEDS: Docusate Sodium 100 MG CAPSULE PO (08:55)
--- NOTE | 2023-07-07 10:52 | MHC.CM.PN ---
CM met with pt and an cotton wringer to discuss DC plan. CM explained to pt that referrals were sent for STR, the only one accepting ( and even that they did not confirm) is [facility] in [place], and pt said she does not want to go there and would rather go home with her EMERGENCY SERVICES DIRECTOR services. WILMAR has sent updated reports to [facility], the [facility] who assist her with her medications. DC plan will be for pt to go home via her EMERGENCY SERVICES DIRECTOR to transport her and resume her prior services.
[2023-07-07 11:08] VITALS: BP 150/91; PULSE 105; RESP 20; TEMP 35.8; O2SAT 87
[2023-07-07 11:24] LABS: Glucose, Whole Blood 133 mg/dL (60-115)
--- NOTE | 2023-07-07 12:18 | P.DS_ITS ---
DS: Providers Provider Date of Service: 07/07/23 Date of admission: 06/30/23 23:36 Date of discharge: 07/07/23 Primary care physician: Cathleen Sears MD Consults: 07/06/23 09:54 Consult to Pulmonology Routine Consulting Provider: [facility] Reason for consultation: hypoxia Attending physician on discharge: Dinesh Beltran Discharging clinician: Tegan Radford DS: Diagnosis Discharge Diagnosis (1) COPD (chronic obstructive pulmonary disease): Status: Acute (2) Acute respiratory failure with hypoxia and hypercapnia: Status: Acute DS: Summary Hospital Course Hospital Course: From H&P on the day of admission Patient with underlying history of COPD, alcoh olic cirrhosis, GERD, hepatitis-C (unknown if treated) O2 dependent, mixed asthma disorder, who presented to the emergency room complaints of right lower extremity edema, shortness of breath, coughing body aches for approximately 1 week.? Upon being seen in the emergency room, patient was noted to be hypoxic with an O2 sat 75% on room air.? Initial venous blood gases were evaluated but he was told that she was doing fine, she had been put on nasal cannula and subsequently on CPAP, then venous blood gas repeated and transition to a a Suarez mask at 13 L, the patient continued to worsen and developed significant obtundation, ABG obtained and now the patient shows respiratory acidosis with hypercarbia state with a CO2 concentration of 112.? The patient was emergently intubated by Dr. Sin. Of the laboratories are unremarkable with the exception of hemo concentration, lactic acid 0.8. Transferred to the ICU for further care. While seen in the emergency room, it was eminent that the patient could have aspirated for she has significant amount of secretions and proximally 100 cc of it were suctioned between me and the nurses, her end-tidal CO2 is over 50 and O2 sat 94%, I did adjust the settings of the vent for an FiO2 of 40% and a rate of 28 prior to transferring to ICU I discussed the case with a ER physician hardware sales assistant to rule out organic causes of her encephalopathy kindly asked for a CT of the head and the chest. This is a 57-year-old female with underlying COPD on 4 L of supplemental oxygen, hepatitis-C/etoh cirrhosis, hypertension, hypothyroidism, hyperlipidemia, substance abuse on methadone who presented with shortness of breath and hypercapnic respiratory failure requiring intubation in the ED and was subsequently admitted to the ICU. Patient was treated with systemic glucocorticoids, nebulized bronchodilators, and acetazolamide and lasix with significant improvement, was extubated 06/30 and downgraded to the medical service 07/01. She required further diuresis x2 doses and her restpiratory status has improved. She has completed course of antibiotics during her hospitalization. Acute on chronic respiratory failure with hypercapnia and hypoxia due to COPD, pneumonia and fluid overload CT chest showed b/l lower lobe consolidation s/p intubation. s/p IV lasix and azetazolamide. on baseline 4-5L supplemental oxygen goal o2 saturation 87-90% to prevent hypercapnia. She has been able to ambulate to the bathroom and have conversations will month maintaining oxygen saturations in her goal range of the upper 80s. She does not walk very far at baseline. PT did recommend inpatient pulmonary rehab however given her history of drug abuse on methadone only 1 facility was not option for rehab and she has declined to go to that facility. Therefore she will be discharged home to resume [employer] PROFESSIONAL services and continue her supplemental oxygen. Recommend outpatient follow up with PCP and consideration of outpatient pulmonary rehab. hypokalemia. resolved with replacement Time Attestation Total time managing care of this patient today: 36 mintues. Discharge Coordination Time (in mins): 36 Quality: Safe Use of Opioids Does Pt have an Active Cancer Diagnosis on the Problem List?: No Quality: Stroke Does the patient have a stroke diagnosis?: No Physical Exam Vital Signs: Vital Signs: Last Vital Signs Temp 96.4 F L 07/07/23 11:08 Pulse 105 H 07/07/23 11:08 Resp 20 07/07/23 11:08 BP 150/91 H 07/07/23 11:08 Pulse Ox 87 L 07/07/23 11:08 O2 Del Method Nasal Cannula 07/07/23 11:08 O2 Flow Rate 3 07/07/23 11:08 FiO2 50 07/01/23 09:53 BMI result Body Mass Index 30.5 Const: General: cooperative, comfortable, no acute distress, alert and awake Nutritional Appearance: average body habitus Orientation/consciousness: patient oriented x3 Resp: Other: no wheezing, no rhonchi Effort & Inspection: normal respiratory effort, able to speak in complete sentences, no respiratory distress and no use of accessory muscles Cardio: Rate: regular rate GI: Inspection: No distended Palpation (GI): Soft to palpation and nontender Neuro: General: patient oriented x3, moves all extremities and CN's II-XI intact bilaterally Extrem: General: Yes no pedal edema DS: Data Data Completed and Pending Completed studies during hospitalization [Text1]: Procedures Assistance with Respiratory Ventilation, Less than 24 Consecutive Hours, Continuous Positive Airway Pressure (04/20/23) Labs on day of discharge: Laboratory Results - last 24 hr 07/06/23 07/06/23 07/07/23 16:10 20:39 07:06 POC Glucose 125 H 215 H 150 H 07/07/23 11:16 POC Glucose 133 H Discharge Plan Discharge Anticipated Discharge Date/Time: 07/07/23 12:55 Patient Disposition: Home Health Service Discharge Diagnosis: acute on chronic respiratory failure with hypoxia and hypercapnia Referrals: Cathleen Sears MD [Primary Care Provider] - 1 Week Discharge Medications: Continued albuterol sulfate [ProAir HFA] 90 mcg/actuation Hfa Aerosol Inhaler 2 puff INHALATION Q6H PRN (Reason: Shortness Of Breath Or Wheezing) rosuvastatin 20 mg Tablet 20 mg PO DAILY ipratropium-albuterol 0.5 mg-3 mg(2.5 mg base)/3 mL solution for nebulization 3 ml inhalation QID PRN (Reason: wheezing) sertraline 100 mg Tablet 100 mg PO DAILY@0900 hydroxyzine pamoate 50 mg capsule 50 mg PO BID PRN (Reason: Itching) fluticasone propion-salmeterol [Advair Diskus] 500-50 mcg/dose blister with device 1 ea INHALATION BID omega-3 acid ethyl esters 1 gram capsule 1 cap PO BID@1200,1800 methadone 10 mg/mL Concentrate 85 mg PO DAILY levothyroxine 25 mcg Tablet 25 mcg PO DAILY Qty: 30 0RF sennosides [senna] 8.6 mg tablet 17.2 mg PO BEDTIME PRN (Reason: constipation) nicotine (polacrilex) 2 mg gum 2 mg PO Q2H PRN (Reason: Smoking Cessation) docusate sodium 100 mg capsule 100 mg PO BID metformin 500 mg tablet extended release 24 hr 500 mg PO DAILY@1800 perphenazine 4 mg tablet 4 mg PO BEDTIME sertraline 25 mg tablet 25 mg PO DAILY@0900 Incruse Ellipta 62.5 mcg/actuation blister with device 1 inh inhalation DAILY levothyroxine 200 mcg tablet 200 mcg PO DAILY amlodipine 10 mg tablet 10 mg PO DAILY pantoprazole 40 mg tablet,delayed release (DR/EC) 40 mg PO DAILY@1200 Qty: 30 6RF famotidine [Pepcid] 40 mg tablet 40 mg PO BEDTIME Qty: 30 6RF simethicone 180 mg capsule 180 mg PO BID 30 Days Qty: 60 6RF Rx Instructions: after meals Held lisinopril 40 mg Tablet 40 mg PO DAILY Hold Instructions: hold until confirmation from PCP - on both timothy and arb on med rec; bp stable olmesartan 40 mg tablet 40 mg PO DAILY@1200 Hold Instructions: hold until confirmation with PCP - on both timothy and arb; bp stable Discharge Orders: Discharge Order (Routine); Ordered 07/07/23 Ordered By: Tegan Radford Activity on Discharge: As tolerated Stand Alone Forms: Patient Portal Discharge page Print Language: Icelandic Care Plan Goals: see below Health Concerns: acute on chronic hypercapnic respiratory failure pneumonia Plan of Treatment: continue to use oxygen per previous recommendations - o2 goal 87-90% completed course of antibiotics and steroids call to schedule follow up appointment with PCP you have two medications for blood pressure which are similar. don't take lisinopril or olmesartan until confirmation from PCP. Olmesartan was likely supposed to replace lisinopril. blood pressure has been controlled on amlodipine only Assessment: see discharge summary
--- NOTE | 2023-07-07 12:40 | MHC.CM.PN ---
Addendum entered by Ruby Dumont 07/07/23 13:44: Pt has been medically cleared for DC, she will go home via her HEAD TRANSFER CLERK and will resume her services from [facility] home care Original Note: Pt's nurse informed me that she does not have electricity on in her apt., and asked if I would call [facility] [employer] [facility] [employer] [facility] CM called there and was told that they just 5 min ago received a call from someone that is helping this pt. and the services has been restored.
--- NOTE | 2023-07-07 13:14 | W.MHC.F2F ---
Service Date Service Date: 07/07/23 Encounter Date of encounter: 07/07/23 Reasons for Services Signs and symptoms assessed: needs residential for blood pressure monitoring and monitoring of respiratory status/supplemental oxygen Reason for residential: other MD Overseeing Care: Cathleen Sears Homebound: Leaving the home is medically contraindicated at this time without the asist of a device and/or another person due th the listed conditions above and below. Reason homebound: unsteady gait / fall risk Certification: Based on the above findings, I certify that this patient is confined to the home and needs intermittent residential care, physical therapy and/or speech therapy, or continues to need occupational therapy. The patient is under my care, and I have initiated the establishment of the plan of care. The patient will be followed by a physician who will periodically review the plan of care. Time Spent With Patient Time: Total time managing care of this patient today ____ minutes.
[2023-07-07 14:14] VITALS: PULSE 105; RESP 20
--- NOTE | 2023-07-16 16:54 | P.CDIM_ITS ---
PROVIDER RESPONSE TEXT: To clarify, the appropriate diagnosis supported by the clinical indicators: Pneumonia: possibly due to aspiration QUERY TEXT: PHYSICIAN'S DOCUMENTATION REQUEST Date of Query: 07/15/2023 09:51 AM EDT Patient Name: Sandra Rose Admit Date: 07/01/2023 Dear Tegan Radford, RETROSPECTIVE QUERY A review of the medical record indicates additional documentation may be needed. Please review below and update the documentation accordingly. Clinical Indicators: ICU H&P dated 06/30/23 - While seen in the emergency room, it was eminent that the patient could have a spirated for she has significant amount of secretions and proximally 100 cc of it were suctioned between me and the nurses . Assessment: Right lower lobe pneumonia likely aspiration Based on the above, could you clarify in the Progress Notes further specificity regarding the most li edilberto type of pneumonia you suspect for the Pdx for this patient: Aspiration Pneumonia Please indicate substance such as food or vomitus, oils, or other solids or liquids Pneumonia please specify Other (explain) Clinically unable to determine (explain) Thank you, Naomi Alcala, CCS, CDIS Use of terms such as suspected, likely, concern for, or probable (associated with a specific diagnosi s that is being evaluated, monitored, or treated as if it exists) are acceptable and can be coded in the inpatient se tting, when documented at the time of discharge. Please use your independent medical judgment in providing your response. THIS QUERY IS PART OF THE PERMANENT MEDICAL RECORD
== END 2023-07-07 14:50 | disposition home health service (06) | DRG 137 ==
LOC: HO.ED 18:19 → HO.EDOVER 07-01 00:33 → HO.ICU 07-01 00:37 → HO.IMC 07-02 12:29
PROVIDERS: Internal Medicine Pulmonary Disease; Nurse Practitioner Acute Care; Physician Assistant; Admitting Provider Physician Assistant Medical; Emergency Provider Emergency Medicine; PCP Family Medicine; Visit Provider Physician Assistant Medical
DX: J69.0 Pneumonitis due to inhalation of food and vomit (principal); J96.21 Acute and chronic respiratory failure with hypoxia; D69.59 Other secondary thrombocytopenia; J44.1 Chronic obstructive pulmonary disease with (acute) exacerbation; E11.9 Type 2 diabetes mellitus without complications; B19.20 Unspecified viral hepatitis C without hepatic coma; T41.5X1A Poisoning by therapeutic gases, accidental (unintentional), initial encounter; E87.6 Hypokalemia; K70.30 Alcoholic cirrhosis of liver without ascites; Z99.81 Dependence on supplemental oxygen; I10 Essential (primary) hypertension; F39 Unspecified mood [affective] disorder; E03.9 Hypothyroidism, unspecified; E86.0 Dehydration; F11.20 Opioid dependence, uncomplicated; J96.22 Acute and chronic respiratory failure with hypercapnia; Z20.822 Contact with and (suspected) exposure to COVID-19; Z79.51 Long term (current) use of inhaled steroids; Z79.890 Hormone replacement therapy; Z79.84 Long term (current) use of oral hypoglycemic drugs; Z79.899 Other long term (current) drug therapy
CPT/HCPCS: 0241U; 36415; 36600; 70450; 71045; 71250; 80048; 80053; 80307; 81001; 81003; 82040; 82803; 82947; 83605; 83735; 83880; 84100; 84484; 85025; 85027; 85610; 85730; 87040; 87070; 87205; 93005; 93970; 94002; 94003; 94640; 97161; 99285; C1758; J0456; J0696; J1120; J1170; J1650; J1940; J1956; J2310; J2405; J2704; J2930; J3475; J7120; P9047

== ENCOUNTER → 2023-06-30 17:23 | Outpatient (BNV) | payer MEDICAID, SELFPAY | PROVIDERS: Admitting Provider Physician Assistant Medical; Emergency Provider Emergency Medicine; PCP Family Medicine; Visit Provider Internal Medicine Cardiovascular Disease | DX: R06.02 Shortness of breath (principal) | CPT/HCPCS: 93010 ==

== ENCOUNTER → 2023-06-30 23:36 | Outpatient (BNV) | payer MEDICAID, SELFPAY | PROVIDERS: Admitting Provider Physician Assistant Medical; Emergency Provider Emergency Medicine; PCP Family Medicine; Visit Provider Internal Medicine Pulmonary Disease | DX: J44.9 Chronic obstructive pulmonary disease, unspecified (principal); J96.01 Acute respiratory failure with hypoxia; J96.02 Acute respiratory failure with hypercapnia | CPT/HCPCS: 99232; 99291 ==

== ENCOUNTER → 2023-06-30 23:36 | Outpatient (BNV) | payer MEDICAID, SELFPAY | PROVIDERS: Admitting Provider Physician Assistant Medical; Emergency Provider Emergency Medicine; PCP Family Medicine; Visit Provider Physician Assistant Medical | DX: J44.9 Chronic obstructive pulmonary disease, unspecified (principal); J96.01 Acute respiratory failure with hypoxia; J96.02 Acute respiratory failure with hypercapnia | CPT/HCPCS: 99232; 99239; 99499; G0180 ==

== ENCOUNTER → 2023-06-30 23:36 | Outpatient (BNV) | payer MEDICAID, SELFPAY | PROVIDERS: Admitting Provider Physician Assistant Medical; Emergency Provider Emergency Medicine; PCP Family Medicine; Visit Provider Physician Assistant Medical | DX: J44.1 Chronic obstructive pulmonary disease with (acute) exacerbation (principal); J96.01 Acute respiratory failure with hypoxia; J96.02 Acute respiratory failure with hypercapnia | CPT/HCPCS: 36556; 99291 ==

== ENCOUNTER → 2023-07-13 10:30 | Outpatient (BNV) | payer MEDICAID, SELFPAY | PROVIDERS: PCP Family Medicine; Visit Provider Radiology Diagnostic Radiology | DX: Z12.31 Encounter for screening mammogram for malignant neoplasm of breast (principal) | CPT/HCPCS: 77063; 77067 ==

== ENCOUNTER 2023-07-13 10:42 | Outpatient (REF) | payer MEDICAID, SELFPAY ==
--- NOTE | ~2023-07-13 | MM_ITS ---
EXAMINATION: MM SCREENING DIGITAL BREAST TOMOSYNTHESIS, BILATERAL CLINICAL INFORMATION: Screening. Asymptomatic. COMPARISON: Mammography: This study is compared with prior exams dating back to 2016. TECHNIQUE: Digital breast tomosynthesis is performed in both the craniocaudal and mediolateral oblique views along with computer-aided detection (CAD). Synthesized 2D images are generated from the tomosynthesis. FINDINGS: The breasts are heterogeneously dense, which may obscure small masses (ACR BI-RADS breast composition Category c). There are no significant masses, abnormal calcifications, or other abnormalities. MM/MM tomosynthesis screening BI IMPRESSION: No mammographic evidence of malignancy. ASSESSMENT: BI-RADS BI-RADS 1 - Negative RECOMMENDATION: Routine annual mammography screening. 1 year F/U This examination should not preclude the clinical evaluation of a suspicious palpable abnormality. This patient's information was entered into a reminder system with a target due date for their next mammogram.
== END 2023-07-13 10:43 | disposition home or self-care (01) ==
LOC: HO.MAMMO 10:42
PROVIDERS: PCP Family Medicine; Visit Provider Family Medicine
DX: Z12.31 Encounter for screening mammogram for malignant neoplasm of breast (principal)
CPT/HCPCS: 77063; 77067

== ENCOUNTER 2023-07-22 12:16 | Outpatient (REF) | payer MEDICAID, SELFPAY ==
--- NOTE | ~2023-07-22 | XR_ITS ---
EXAMINATION: XR CHEST CLINICAL INFORMATION: Pneumonia. COMPARISON: Chest radiograph 07/01/2023. TECHNIQUE: 2 views of the chest were obtained. FINDINGS: Unchanged prominence of the cardiomediastinal silhouette. Increased interstitial markings. Possible early bibasilar infiltrates. No pleural effusion or pneumothorax. No acute osseous findings. XR/XR chest 2V IMPRESSION: Findings suggesting atypical infectious/inflammatory process with small airways disease and possible bibasilar early infiltrates.
== END 2023-07-22 12:17 | disposition home or self-care (01) ==
LOC: HO.HHCX 12:16
PROVIDERS: Visit Provider Nurse Practitioner Primary Care
DX: J96.11 Chronic respiratory failure with hypoxia (principal); J96.12 Chronic respiratory failure with hypercapnia
CPT/HCPCS: 36415; 71046; 80048

== ENCOUNTER 2023-07-22 12:42 | Outpatient (REF) | payer MEDICAID, SELFPAY ==
[2023-07-22 16:53] LABS: Anion Gap 19 (12-20); Blood Urea Nitrogen 10 mg/dL (9-16); Calcium 10.1 mg/dL (8.4-10.2); Carbon Dioxide 25 mmol/L (22-29); Chloride 100 mmol/L (96-108); Estimated Glomerular Filt Rate > 60; Glucose Random 93 mg/dL (60-115); Potassium 5.2 mmol/L (3.3-5.1); Sodium 139 mmol/L (135-145)
== END 2023-07-22 12:43 | disposition home or self-care (01) ==
LOC: HO.HHCL 12:42
PROVIDERS: Visit Provider Nurse Practitioner Primary Care
DX: E87.6 Hypokalemia (principal); M79.89 Other specified soft tissue disorders
CPT/HCPCS: 36415; 80048; 83880

== ENCOUNTER 2023-08-01 14:22 | Outpatient (REF) | payer MEDICAID, SELFPAY ==
--- NOTE | ~2023-08-01 | US_ITS ---
EXAMINATION: US VENOUS ULTRASOUND WITH DOPPLER LOWER EXTREMITY, RIGHT CLINICAL INFORMATION: Right lower extremity swelling COMPARISON: Ultrasound venous duplex of the bilateral lower extremities dated 06/30/2023 TECHNIQUE: Ultrasound of the deep veins is performed from the hip to the calf with compression sonography and color and pulse Doppler assessment. Spectral analysis with color-flow imaging is performed. FINDINGS: There is normal venous compression and respiratory variation and augmented flow. The visualized common femoral vein, superficial femoral vein, profunda femoral vein, popliteal vein, and the trifurcation region shows no evidence of deep venous thrombosis. There is no significant popliteal fossa cyst. The left common femoral vein is widely patent. If the patient's symptoms persist, followup ultrasound in 5 days 7 days might be of value to exclude proximal propagation from a non-visualized calf vein. US/US venous duplex LE RT IMPRESSION: No DVT demonstrated in the right lower extremity.
== END 2023-08-01 14:23 | disposition home or self-care (01) ==
LOC: HO.US 14:22
PROVIDERS: PCP Family Medicine; Visit Provider Nurse Practitioner Primary Care
DX: R60.0 Localized edema (principal)
CPT/HCPCS: 93971

== ENCOUNTER 2023-08-03 13:17 | Outpatient (REF) | payer MEDICAID, SELFPAY ==
[2023-08-03 16:50] LABS: Anion Gap 16 (12-20); Blood Urea Nitrogen 11 mg/dL (9-16); Calcium 10.4 mg/dL (8.4-10.2); Carbon Dioxide 36 mmol/L (22-29); Chloride 93 mmol/L (96-108); Estimated Glomerular Filt Rate > 60; Glucose Random 130 mg/dL (60-115); Potassium 3.4 mmol/L (3.3-5.1); Sodium 142 mmol/L (135-145)
[2023-08-03 17:10] LABS: TSH reflex Free T4 0.57 uIU/mL (0.32-4.0)
== END 2023-08-03 13:18 | disposition home or self-care (01) ==
LOC: HO.HHCL 13:17
PROVIDERS: Visit Provider Family Medicine
DX: M79.89 Other specified soft tissue disorders (principal)
CPT/HCPCS: 36415; 80048; 84443

== ENCOUNTER 2023-08-15 21:29 | Inpatient (IN) | payer MEDICAID, SELFPAY ==
--- NOTE | ~2023-08-15 | XR_ITS ---
EXAMINATION: XR CHEST CLINICAL INFORMATION: Shortness of breath COMPARISON: Chest radiograph 07/22/2023 TECHNIQUE: Frontal view of the chest was obtained. FINDINGS: There is bibasilar atelectasis slightly improved on the right but slightly worse on the left. The heart is mildly enlarged, increased when compared to prior. No gross CHF. Pericardial effusion cannot be entirely excluded. A small left pleural effusion is present. A small right subpulmonic pleural effusion cannot be entirely excluded. XR/XR chest 1V IMPRESSION: 1. Bibasilar atelectasis with small left pleural effusion. 2. Mild cardiomegaly increased since prior.
[2023-08-15 21:35] VITALS: BP 110/62; BP 116/74; PULSE 100; PULSE 91; RESP 25; TEMP 36.9; O2SAT 84; O2SAT 93; BMI 30.3
[2023-08-15 21:38] VITALS: BP 116/79; PULSE 90; RESP 17; TEMP 36.9; O2SAT 85
--- NOTE | 2023-08-15 21:42 | ECG_ITS ---
Test Reason : DYSPENEA Blood Pressure : / mmHG Vent. Rate : 086 BPM Atrial Rate : 086 BPM P-R Int : 148 ms QRS Dur : 086 ms QT Int : 422 ms P-R-T Axes : 079 -56 042 degrees QTc Int : 504 ms Normal sinus rhythm Left axis deviation Prolonged QT Abnormal ECG When compared with ECG of 30-JUN-2023 17:50, No significant change was found Referred By: Annelise Webster Electronically Signed By:oJhny Velazco
--- NOTE | 2023-08-15 21:43 | ED_ITS ---
HPI - SOB/Dyspnea General Chief Complaint: Dyspnea Stated Complaint: COPD EXACERBATION Time Seen by Provider: 08/15/23 21:41 Source: patient Mode of arrival: ambulatory History of Present Illness ED Provider: Dr. Webster HPI Narrative: 57-year-old female with history of diabetes/hypertension/COPD/everyday smoker but denies any alcohol or drug use arrives via EMS with 3 weeks of increasing shortness of breath with bilateral lower extremity edema and redness with pain. EMS reports that patient was noted to be 84% on 6 L nasal cannula and does use 2 L of nasal cannula at baseline at home. Related Data Home Medications ?Medication ?Instructions ?Recorded ?Confirmed albuterol sulfate 90 mcg/actuation 2 puff inhalation Q6H PRN 03/11/20 07/01/23 aerosol inhaler (ProAir HFA) Shortness Of Breath Or Wheezing lisinopril 40 mg tablet 40 mg PO DAILY 03/11/20 07/01/23 rosuvastatin 20 mg tablet 20 mg PO DAILY 03/11/20 07/01/23 perphenazine 4 mg tablet 4 mg PO BEDTIME 09/24/21 07/01/23 amlodipine 10 mg tablet 10 mg PO DAILY 10/01/22 07/01/23 levothyroxine 200 mcg tablet 200 mcg PO DAILY 10/01/22 07/01/23 sertraline 25 mg tablet 25 mg PO DAILY@0910/01/22 07/01/23 umeclidinium 62.5 mcg/actuation 1 inh inhalation DAILY 10/01/22 07/01/23 blister powder for inhalation (Incruse Ellipta) fluticasone 500 mcg-salmeterol 50 1 ea inhalation BID 04/20/23 07/01/23 mcg/dose blistr powdr for inhalation (Advair Diskus) hydroxyzine pamoate 50 mg capsule 50 mg PO BID PRN Itching 04/20/23 07/01/23 ipratropium 0.5 mg-albuterol 3 mg 3 ml inhalation QID PRN wheezing 04/20/23 07/01/23 (2.5 mg base)/3 mL nebulization soln omega-3 acid ethyl esters 1 gram 1 cap PO BID@1200,1800 04/20/23 07/01/23 capsule sertraline 100 mg tablet 100 mg PO DAILY@0900 04/20/23 07/01/23 methadone 10 mg/mL oral concentrate 85 mg PO DAILY 04/21/23 07/01/23 docusate sodium 100 mg capsule 100 mg PO BID constipation 07/01/23 07/01/23 metformin 500 mg tablet,extended 500 mg PO DAILY@1800 07/01/23 07/01/23 release 24 hr nicotine (polacrilex) 2 mg gum 2 mg PO Q2H PRN Smoking Cessation 07/01/23 07/01/23 olmesartan 40 mg tablet 40 mg PO DAILY@1200 07/01/23 07/01/23 sennosides 8.6 mg tablet (senna) 17.2 mg PO BEDTIME PRN constipation 07/01/23 07/01/23 Previous Rx's ?Medication ?Instructions ?Recorded levothyroxine 25 mcg tablet 25 mcg PO DAILY #30 tabs 04/23/23 famotidine 40 mg tablet (Pepcid) 40 mg PO BEDTIME #30 tabs 06/22/23 pantoprazole 40 mg tablet,delayed 40 mg PO DAILY@1200 #30 tabs 06/22/23 release simethicone 180 mg capsule 180 mg PO BID 30 days #60 caps 06/22/23 Allergies Allergy/AdvReac Type Severity Reaction Status Date / Time Penicillins [PENICILLINS] Allergy Unknown RED ITCHY Verified 08/15/23 21:39 RASH SEAFOOD Allergy Unknown FEVER Uncoded 08/15/23 21:39 SWELLING Review of Systems 2 Review of Systems: Pertinent positives and negatives as stated in HPI [facility] Past Medical History Source: nursing notes reviewed Medical History Methadone dependence Alcoholic cirrhosis Acute respiratory failure, unspecified whether with hypoxia or hypercapnia Hyperlipidemia Psychosis Hypoxia Acute exacerbation of chronic obstructive airways disease Hepatitis C HTN (hypertension) Hypothyroid COPD (chronic obstructive pulmonary disease) Family History Family History Father HTN (hypertension) Mother Gastritis Ovarian cancer Arthritis Son Thyroid disease Other Hypothyroid Social History Social History Household Members: Unknown / Unable to assess Housing: Unknown / Unable to assess Alcohol intake: current Alcohol intake frequency: does not drink Patient Tobacco Use Status: Tobacco use Unknown Tobacco use type: Cigarette Cigarette Packs Per Day: 1 Cigarettes Per Day: 20.0 e-Cigarette/Vaping Use: Never Used Second Hand Smoke Exposure: No Substance Use Type: Heroin Advance Directives: No Advance Directives Information Provided: No service: No Current occupational status: unemployed Physical Exam 2 Vital Signs: Vital Signs: Last Vital Signs Temp 98.5 F 08/15/23 21:38 Pulse 91 08/15/23 23:50 Resp 18 08/15/23 23:50 BP 116/79 08/15/23 21:38 Pulse Ox 82 L 08/15/23 23:43 O2 Del Method Oxymask 08/15/23 23:43 O2 Flow Rate 6 08/15/23 23:43 Oxygen Flow Rate 6 08/15/23 21:35 BMI result Body Mass Index 30.3 VITAL SIGNS: Reviewed. GENERAL: Well developed, well nourished, in no acute distress. HEAD: Normocephalic/atraumatic EYES: PERRLA, EOMI EARS: Ext canals without abnormality, TMs non-bulging and non-erythematous NOSE: Nares patent bilateral OROPHARYNX: no oral lesions noted, posterior pharynx clear and non-erythematous without noted tonsillar enlargement/erythema/exudates NECK: Supple, no adenopathy LUNGS: Good inspiratory effort but decreased bilaterally, left greater than right, mild tachypnea with increased work of breathing SpO2<85> on 6 L nasal cannula CARDIOVASCULAR: Regular rate and rhythm without noted murmurs, no JVD bilateral lower extremity 1 to 2+ pitting edema ABDOMEN: Soft, non-tender, non-distended with bowel sounds. MUSCULOSKELETAL: No tenderness, deformities, or effusions noted on gross inspection. EXTREMITIES: No cyanosis, clubbing or edema. BILATERAL LOWER EXTREMITY: Janes in color, skin thickening consistent with chronic venous stasis/insufficiency, 1 to 2+ pitting, symmetrical SKIN: Inspection of the skin reveals no rashes NEUROLOGIC: Alert and oriented x 4. Strength and sensation to light touch were grossly intact x 4. Medications Administered Discontinued Medications Generic Name Dose Route Start Last Admin Trade Name Freq PRN Reason Stop Dose Admin Albuterol Sulfate 2.5 mg/ 0 mg 08/15/23 21:44 08/15/23 22:01 Albuterol/Ipratropium 3 ml INHALE 08/15/23 21:45 5 dose ONCE ONE Administration Albuterol Sulfate 2.5 mg/ 0 mg 08/15/23 23:42 08/15/23 23:50 Albuterol/Ipratropium 3 ml INHALE 08/15/23 23:43 5 dose ONCE ONE Administration Magnesium Sulfate 2 gm in 50 mls @ 150 mls/hr 08/15/23 22:21 08/15/23 22:46 Magnesium Sulfate/H2o IV 08/15/23 22:40 Infused ONCE ONE Infusion Cefepime HCl 1 gm/ Sodium 50 mls @ 100 mls/hr 08/15/23 23:50 08/16/23 01:15 Chloride IV 08/16/23 00:19 Infused ONCE ONE Infusion Methylprednisolone Sodium Succinate 125 mg 08/15/23 21:42 08/15/23 22:26 Methylprednisolone Sod Succ 125 Mg/2 Ml Vial IVPUSH 08/15/23 21:43 125 mg ONCE ONE Administration Medical Decision Making Medical Decision Making [facility] Narrative: 2144: 57-year-old female with history and clinical presentation, DDX: COPD exacerbation, possible pneumonia but felt to be less likely in the absence of fever or chills, do not suspect lower extremity cellulitis as this has appearance chronic venous insufficiency, there may be a component of CHF, will treat for COPD exacerbation. INTERVENTION: ED bronch, Solu-Medrol, supplemental oxygen, magnesium sulfate I reviewed all investigations and hematologic indices are negative for leukocytosis/anemia and patient has chronic thrombocytopenia. Delayed VBG does not demonstrate any respiratory acidosis or hypercapnia. Patient continues to require supplemental oxygen for hypoxia. She has no fevers or chills, she received 1 dose of antibiotics. Chemistry indices are negative for AGUILAR or electrolyte derangements, there is noted elevation of LFTs without reported fevers/chills/nausea or vomiting or abdominal discomfort. BNP is noted to be within normal limits. And chest x-ray does not identify a discrete infiltrate but identification of small left pleural effusion and mild cardiomegaly that has increased. Patient oxygenating well on nasal cannula with reservoir, otherwise appears comfortable, I did discuss this case with inpatient hospitalist who accepts admission. Differential Diagnosis Differential Diagnoses: The differential diagnosis associated with the presentation includes Please see the discussion above Admission/Observation Consideration of admission/observation: Escalation of care including admission/observation considered Please see the discussion above Lab Data [facility] Lab Attestation statement: I reviewed the patient's lab results. Please see the discussion above 08/15/23 22:20 08/15/23 22:20 Labs: Lab Results 08/15/23 08/15/23 08/15/23 Range/Units 22:20 22:22 23:54 WBC 6.1 (4.8-10.8) X10*3/uL RBC 5.50 (4.20-5.50) X10*6/uL Hgb 15.3 (12.0-16.0) g/dl Hct 48.3 H (37.0-47.0) % MCV 87.8 (80.0-98.0) fL MCH 27.8 (27.0-33.0) pg MCHC 31.7 (31.0-35.0) g/dl RDW 16.0 (11.0-16.0) % Plt Count 146 L D (160-400) X10*3/uL MPV 10.9 (9.4-12.3) fL Immature Gran % (Auto) 0.2 (0.0-0.4) % Neut % (Auto) 50.3 (45-73) % Lymph % (Auto) 37.0 (20-40) % Twiggs % (Auto) 8.2 (2-11) % Eos % (Auto) 3.6 (0-4) % Baso % (Auto) 0.7 (0-2) % Lymph # (Auto) 2.3 (1.2-4.9) X10*3/uL Twiggs # (Auto) 0.5 (0.1-1.2) X10*3/uL Eos # (Auto) 0.2 (0.0-0.4) X10*3/uL Baso # (Auto) 0.0 (0.0-0.2) X10*3/uL Abs Immat Gran (auto) 0.01 (0.00-0.03) X10*3/uL Absolute Neuts (auto) 3.1 (2.0-8.3) x10*3/uL Absolute Nucleated RBC 0.000 (0.0-0.012) X10*3/uL Nucleated RBC % (auto) 0.0 (0.0-0.2) /100WBC VBG pH 7.51 H (7.32-7.43) VBG pCO2 52 mmHg VBG pO2 151 mmHg VBG HCO3 42 H (22-26) mmol/L VBG O2 Saturation 99.0 % VBG Base Excess 16.4 mmol/L Sodium 141 (135-145) mmol/L Potassium 3.8 (3.3-5.1) mmol/L Chloride 91 L (96-108) mmol/L Carbon Dioxide 39 H (22-29) mmol/L Anion Gap 15 (12-20) BUN 12 (9-16) mg/dL Creatinine 0.62 (0.5-1.4) mg/dL Estim Creat Clear Calc 103.6 Estimated GFR > 60 Random Glucose 99 (60-115) mg/dL Lactic Acid 1.1 (0.5-2.0) mmol/L Calcium 10.1 (8.4-10.2) mg/dL Total Bilirubin 0.5 (0.0-1.0) mg/dL AST 33 H (5-31) U/L ALT 39 H (0-31) U/L Alkaline Phosphatase 141 H (39-117) U/L B-Natriuretic Peptide 30 (<100) pg/mL Total Protein 8.0 (6.5-8.0) g/dL Albumin 4.1 (3.5-5.0) g/dL 08/16/23 Range/Units 01:17 WBC (4.8-10.8) X10*3/uL RBC (4.20-5.50) X10*6/uL Hgb (12.0-16.0) g/dl Hct (37.0-47.0) % MCV (80.0-98.0) fL MCH (27.0-33.0) pg MCHC (31.0-35.0) g/dl RDW (11.0-16.0) % Plt Count (160-400) X10*3/uL MPV (9.4-12.3) fL Immature Gran % (Auto) (0.0-0.4) % Neut % (Auto) (45-73) % Lymph % (Auto) (20-40) % Twiggs % (Auto) (2-11) % Eos % (Auto) (0-4) % Baso % (Auto) (0-2) % Lymph # (Auto) (1.2-4.9) X10*3/uL Twiggs # (Auto) (0.1-1.2) X10*3/uL Eos # (Auto) (0.0-0.4) X10*3/uL Baso # (Auto) (0.0-0.2) X10*3/uL Abs Immat Gran (auto) (0.00-0.03) X10*3/uL Absolute Neuts (auto) (2.0-8.3) x10*3/uL Absolute Nucleated RBC (0.0-0.012) X10*3/uL Nucleated RBC % (auto) (0.0-0.2) /100WBC VBG pH 7.53 H (7.32-7.43) VBG pCO2 48 mmHg VBG pO2 155 mmHg VBG HCO3 41 H (22-26) mmol/L VBG O2 Saturation 99.0 % VBG Base Excess 16.0 mmol/L Sodium (135-145) mmol/L Potassium (3.3-5.1) mmol/L Chloride (96-108) mmol/L Carbon Dioxide (22-29) mmol/L Anion Gap (12-20) BUN (9-16) mg/dL Creatinine (0.5-1.4) mg/dL Estim Creat Clear Calc Estimated GFR Random Glucose (60-115) mg/dL Lactic Acid (0.5-2.0) mmol/L Calcium (8.4-10.2) mg/dL Total Bilirubin (0.0-1.0) mg/dL AST (5-31) U/L ALT (0-31) U/L Alkaline Phosphatase (39-117) U/L B-Natriuretic Peptide (<100) pg/mL Total Protein (6.5-8.0) g/dL Albumin (3.5-5.0) g/dL Independent Interpretation I performed an independent interpretation of an: EKG Interpretation: Normal sinus rhythm, HR-86, no STEMI, FL/QRS are within normal limits and QTC is mildly prolonged which is a change on comparison with EKG from June/2023. External Record Review External record reviewed: Outpatient record, Prior outpatient labs and Prior outpatient radiology Chronic Conditions Patient?s care impacted by: Diabetes and Hypertension COPD, everyday smoker Critical Care Time Critical Care Time Critical Care Time: Yes Total Critical Care Time: 60 Attestation: I personally attest to this time spent taking care of the patient. Discharge Plan Discharge Clinical Impression: Acute hypoxemic respiratory failure, COPD (chronic obstructive pulmonary disease) Patient Disposition: Admitted As Inpatient
[2023-08-15 21:45] VITALS: RESP 25
[2023-08-15] MEDS: Albuterol Sulfate 2.5 MG, Albuterol/Iprat 2.5/0.5MG 3 ML 3 ML INHALE ×2 (22:01→23:50)
[2023-08-15 22:02] VITALS: PULSE 96; RESP 21; O2SAT 90
[2023-08-15] MEDS: methylPREDNISolone Sod Succ 125 MG/2 ML VIAL IVPUSH (22:26)
[2023-08-15] MEDS: Magnesium Sulfate/H2O 2 GM/50 ML PIGGYBACK IV (22:26)
[2023-08-15 22:27] LABS: MANUAL DIFF FLAG NO
[2023-08-15 22:28] LABS: Basophils Percent Auto 0.7 % (0-2); Eosinophils Absolute Auto 0.2 X10*3/uL (0.0-0.4); Eosinophils Percent Auto 3.6 % (0-4); Hematocrit 48.3 % (37.0-47.0); Hemoglobin 15.3 g/dl (12.0-16.0); Imm Gran Abs Auto 0.01 X10*3/uL (0.00-0.03); Imm Gran Pct Auto 0.2 % (0.0-0.4); Lymphocytes Absolute Auto 2.3 X10*3/uL (1.2-4.9); Mean Corpuscular HGB Conc 31.7 g/dl (31.0-35.0); Mean Corpuscular Hemoglobin 27.8 pg (27.0-33.0); Mean Corpuscular Volume 87.8 fL (80.0-98.0); Mean Platelet Volume 10.9 fL (9.4-12.3); Monocytes Absolute Auto 0.5 X10*3/uL (0.1-1.2); Monocytes Percent Auto 8.2 % (2-11); Neutrophils Absolute Auto 3.1 x10*3/uL (2.0-8.3); Neutrophils Percent Auto 50.3 % (45-73); Platelet Count 146 X10*3/uL (160-400); White Blood Count 6.1 X10*3/uL (4.8-10.8)
[2023-08-15 22:37] LABS: Lactic Acid 1.1 mmol/L (0.5-2.0)
[2023-08-15 22:42] LABS: Alanine Aminotransferase 39 U/L (0-31); Albumin Level 4.1 g/dL (3.5-5.0); Alkaline Phosphatase 141 U/L (39-117); Anion Gap 15 (12-20); Aspartate Amino Transferase 33 U/L (5-31); Bilirubin Total 0.5 mg/dL (0.0-1.0); Blood Urea Nitrogen 12 mg/dL (9-16); Calcium 10.1 mg/dL (8.4-10.2); Carbon Dioxide 39 mmol/L (22-29); Chloride 91 mmol/L (96-108); Creatinine Clr Calc Pharmacy 103.6; Estimated Glomerular Filt Rate > 60; Glucose Random 99 mg/dL (60-115); Potassium 3.8 mmol/L (3.3-5.1); Sodium 141 mmol/L (135-145)
[2023-08-15 22:47] LABS: B Type Natriuretic Peptide 30 pg/mL (<100)
[2023-08-15 23:43] VITALS: O2SAT 82
--- NOTE | 2023-08-15 23:43 | PC.NURSE ---
Addendum entered by Victoriano Oro 08/15/23 23:44: vbg check recommended; ordered per Dr. Webster. Original Note: pt satting at 82% on 6L oxymask. RT called to bedside. Dr. Webster aware. pt is axox4 resp even and unlabored speaking full clear sentences.
[2023-08-15 23:50] VITALS: PULSE 91; RESP 18; O2SAT 90
[2023-08-15 23:58] LABS: Venous Blood Gas Refer to POC result
[2023-08-16] VITALS (8 sets, daily range): BP systolic 118–136; BP diastolic 66–73; PULSE 82–101; RESP 16–18; TEMP 36–37.2; O2SAT 89–93; BMI 27.1
[2023-08-16 00:03] LABS: VBG Base Excess 16.4 mmol/L; VBG HCO3 42 mmol/L (22-26); VBG pCO2 52 mmHg; VBG pH 7.51 (7.32-7.43); VBG pO2 151 mmHg
[2023-08-16] MEDS: cefEPime HCl 1 GM in 0.9 % Sodium Chloride 50 ML IV (00:32)
--- NOTE | 2023-08-16 00:47 | PC.NURSE ---
pt found to be 80-85% on oxymask. Dr. Siddiqui and RT notified. pt remains axox4 speaking full clear sentences, denies dyspnea/sob/cp. pt placed on oxymizer by RT at 4L, sats 90%. pt refusing to use bedpan/purewick, educated on need for bed rest as o2 sats drop with exertion. pt continues to refuse. pt agreeable to commode.
[2023-08-16 01:25] LABS: VBG HCO3 41 mmol/L (22-26); VBG pCO2 48 mmHg; VBG pH 7.53 (7.32-7.43); VBG pO2 155 mmHg
[2023-08-16 01:28] LABS: Venous Blood Gas Refer to POC result
--- NOTE | 2023-08-16 01:45 | PM.IMHP ---
History of Present Illness Date of Service: 08/16/23 Chief Complaint: Dyspnea This is a 57-year-old female with pertinent history of chronic hypoxemic respiratory failure to COPD with baseline 4-5 L supplemental oxygen, hepatitis-C/ethanol cirrhosis, hypertension, hypothyroidism, mixed hyperlipidemia, substance use disorder on methadone, tobacco use disorder who presents to the emergency department for evaluation of dyspnea. Patient states she started having dyspnea 1 day prior to presentation. She denies associated cough, chest discomfort or palpitations. Also has associated wheezing and no relief with home inhaler. Patient states she also has pain and swelling of bilateral lower extremity. No orthopnea or PND. No fever, chills, nausea, vomiting, abdominal discomfort, changes in urinary or bowel habits. Patient was found to be hypoxemic at 84% as per EMS on 6 L supplemental oxygen. In the emergency department, patient requiring OxyMask. Review of Systems Constitutional: Constitutional: Reports no additional constitutional complaints Cardiovascular: Cardiovascular: Reports dyspnea on exertion Respiratory: Respiratory: Reports dyspnea on exertion and Reports wheezing Gastrointestinal: Gastrointestinal: Reports no additional gastrointestinal complaints Genitourinary: Genitourinary: Reports no additional female genitourinary complaints Allergic/Immunologic: Allergic/Immunologic: Reports wheezing [facility] Medical History Methadone dependence Alcoholic cirrhosis Acute respiratory failure, unspecified whether with hypoxia or hypercapnia Hyperlipidemia Psychosis Hypoxia Acute exacerbation of chronic obstructive airways disease Hepatitis C HTN (hypertension) Hypothyroid COPD (chronic obstructive pulmonary disease) Family History Father HTN (hypertension) Mother Gastritis Ovarian cancer Arthritis Son Thyroid disease Other Hypothyroid Social History Household Members: Unknown / Unable to assess Housing: Unknown / Unable to assess Alcohol intake: current Alcohol intake frequency: does not drink Patient Tobacco Use Status: Tobacco use Unknown Tobacco use type: Cigarette Cigarette Packs Per Day: 1 Cigarettes Per Day: 20.0 Smoked in Last 30 Days: Yes e-Cigarette/Vaping Use: Never Used Second Hand Smoke Exposure: No Substance Use Type: Heroin Substance Use Type Other:: methadone Advance Directives: No Advance Directives Information Provided: No service: No Current occupational status: unemployed Meds Allergies Allergy/AdvReac Type Severity Reaction Status Date / Time Penicillins [PENICILLINS] Allergy Unknown RED ITCHY Verified 08/15/23 21:39 RASH SEAFOOD Allergy Unknown FEVER Uncoded 08/15/23 21:39 SWELLING Home Medications ?Medication ?Instructions ?Recorded ?Confirmed ?Last Taken ?Type albuterol sulfate 90 mcg/actuation 2 puff inhalation Q6H PRN 03/11/20 07/01/23 Unknown History aerosol inhaler (ProAir HFA) Shortness Of Breath Or Wheezing lisinopril 40 mg tablet 40 mg PO DAILY 03/11/20 07/01/23 06/30/23 History rosuvastatin 20 mg tablet 20 mg PO DAILY 03/11/20 07/01/23 06/29/23 History perphenazine 4 mg tablet 4 mg PO BEDTIME 09/24/21 07/01/23 06/29/23 History amlodipine 10 mg tablet 10 mg PO DAILY 10/01/22 07/01/23 06/30/23 History levothyroxine 200 mcg tablet 200 mcg PO DAILY 10/01/22 07/01/23 06/30/23 History sertraline 25 mg tablet 25 mg PO DAILY@0900 10/01/22 07/01/23 06/30/23 History umeclidinium 62.5 mcg/actuation 1 inh inhalation DAILY 10/01/22 07/01/23 06/30/23 History blister powder for inhalation (Incruse Ellipta) fluticasone 500 mcg-salmeterol 50 1 ea inhalation BID 04/20/23 07/01/23 06/30/23 History mcg/dose blistr powdr for inhalation (Advair Diskus) hydroxyzine pamoate 50 mg capsule 50 mg PO BID PRN Itching 04/20/23 07/01/23 Unknown History ipratropium 0.5 mg-albuterol 3 mg 3 ml inhalation QID PRN wheezing 04/20/23 07/01/23 Unknown History (2.5 mg base)/3 mL nebulization soln omega-3 acid ethyl esters 1 gram 1 cap PO BID@1200,1800 04/20/23 07/01/23 06/30/23 History capsule sertraline 100 mg tablet 100 mg PO DAILY@0900 04/20/23 07/01/23 06/30/23 History methadone 10 mg/mL oral concentrate 85 mg PO DAILY 04/21/23 07/01/23 06/30/23 History docusate sodium 100 mg capsule 100 mg PO BID constipation 07/01/23 07/01/23 06/30/23 History metformin 500 mg tablet,extended 500 mg PO DAILY@1800 07/01/23 07/01/23 06/29/23 History release 24 hr nicotine (polacrilex) 2 mg gum 2 mg PO Q2H PRN Smoking Cessation 07/01/23 07/01/23 Unknown History olmesartan 40 mg tablet 40 mg PO DAILY@1200 07/01/23 07/01/23 06/30/23 History sennosides 8.6 mg tablet (senna) 17.2 mg PO BEDTIME PRN constipation 07/01/23 07/01/23 Unknown History Physical Exam Vital Signs and Narrative: Vital Signs: Last Vital Signs Temp 98.5 F 08/15/23 21:38 Pulse 91 08/15/23 23:50 Resp 18 08/15/23 23:50 BP 116/79 08/15/23 21:38 Pulse Ox 82 L 08/15/23 23:43 O2 Del Method Oxymask 08/15/23 23:43 O2 Flow Rate 6 08/15/23 23:43 Oxygen Flow Rate 6 08/15/23 21:35 BMI result Body Mass Index 30.3 Middle-aged female lying in bed in mild distress on supplemental oxygen Neck supple, no JVD Regular rate and rhythm, S1-S2 heard Bilateral wheezing present Abdomen soft nontender, no guarding, no rigidity Patient is awake, alert and oriented to self, place, time and person ; no focal motor deficit Psych: Normal mood No pedal edema Results Labs 08/16/23 05:06 08/16/23 05:06 Labs: Laboratory Results - last 24 hr 08/15/23 08/15/23 08/15/23 22:20 22:22 23:54 MCV 87.8 MCH 27.8 MCHC 31.7 RDW 16.0 Plt Count 146 L D MPV 10.9 Immature Gran % (Auto) 0.2 Neut % (Auto) 50.3 Lymph % (Auto) 37.0 [place] % (Auto) 8.2 Eos % (Auto) 3.6 Baso % (Auto) 0.7 Lymph # (Auto) 2.3 [place] # (Auto) 0.5 Eos # (Auto) 0.2 Baso # (Auto) 0.0 Abs Immat Gran (auto) 0.01 Absolute Neuts (auto) 3.1 Absolute Nucleated RBC 0.000 Nucleated RBC % (auto) 0.0 VBG pH 7.51 H VBG pCO2 52 VBG pO2 151 VBG HCO3 42 H VBG O2 Saturation 99.0 VBG Base Excess 16.4 Anion Gap 15 Estim Creat Clear Calc 103.6 Estimated GFR > 60 Random Glucose 99 Lactic Acid 1.1 Calcium 10.1 Total Bilirubin 0.5 AST 33 H ALT 39 H Alkaline Phosphatase 141 H B-Natriuretic Peptide 30 Total Protein 8.0 Albumin 4.1 08/16/23 01:17 MCV MCH MCHC RDW Plt Count MPV Immature Gran % (Auto) Neut % (Auto) Lymph % (Auto) [place] % (Auto) Eos % (Auto) Baso % (Auto) Lymph # (Auto) [place] # (Auto) Eos # (Auto) Baso # (Auto) Abs Immat Gran (auto) Absolute Neuts (auto) Absolute Nucleated RBC Nucleated RBC % (auto) VBG pH 7.53 H VBG pCO2 48 VBG pO2 155 VBG HCO3 41 H VBG O2 Saturation 99.0 VBG Base Excess 16.0 Anion Gap Estim Creat Clear Calc Estimated GFR Random Glucose Lactic Acid Calcium Total Bilirubin AST ALT Alkaline Phosphatase B-Natriuretic Peptide Total Protein Albumin Imaging Radiologist's Impressions: Impressions Chest X-Ray 08/15/23 21:55 IMPRESSION: 1. Bibasilar atelectasis with small left pleural effusion. 2. Mild cardiomegaly increased since prior. Assessment and Plan (1) Acute hypoxemic respiratory failure: Status: Acute (2) COPD (chronic obstructive pulmonary disease): Status: Acute Plan This is a 57-year-old female with pertinent history of chronic hypoxemic respiratory failure to COPD with baseline 4-5 L supplemental oxygen, hepatitis-C/ethanol cirrhosis, hypertension, hypothyroidism, mixed hyperlipidemia, substance use disorder on methadone, tobacco use disorder who presents to the emergency department for evaluation of dyspnea. #. Acute on chronic hypoxic respiratory failure due to acute exacerbation of COPD: Will admit patient and initiate systemic steroids. Scheduled and p.r.n. DuoNebs. Continue home inhaler. Uses 4-5 L supplemental oxygen at baseline. Monitor oxygen and wean as tolerated, maintain oxygen saturation greater than 88% #. Dln-aclqmei-lmbxswlpi diabetes mellitus with hyperglycemia: Initiating Accu-Cheks sliding scale insulin #. Hypertension: Continue Norvasc #. Mood disorder: Continue Zoloft and perphenazine #. Chronic thrombocytopenia due to liver disease #. Substance use disorder: On methadone #. Hypothyroidism: Synthroid #. Tobacco use disorder: Counseled regarding cessation. Refused nicotine patch Med rec pending DVT prophylaxis: Lovenox Full code Admit as inpatient and will require two night minimum hospital stay for supplemental oxygen, monitoring of respiratory status (as above), which is not possible in a lesser acute setting. Quality Stroke Does the patient have a stroke diagnosis?: No VTE Prior VTE?: No VTE Risk Level:: Medical - moderate - high VTE Device Contraindication: Treatment Not Indicated VTE Drug Contraindication: N/A - Med Ordered
[2023-08-16 05:16] LABS: MANUAL DIFF FLAG NO
[2023-08-16 05:18] LABS: Basophils Percent Auto 0.2 % (0-2); Hematocrit 44.6 % (37.0-47.0); Hemoglobin 14.4 g/dl (12.0-16.0); Imm Gran Abs Auto 0.02 X10*3/uL (0.00-0.03); Imm Gran Pct Auto 0.3 % (0.0-0.4); Lymphocytes Absolute Auto 0.6 X10*3/uL (1.2-4.9); Lymphocytes Percent Auto 9.5 % (20-40); Mean Corpuscular HGB Conc 32.3 g/dl (31.0-35.0); Mean Corpuscular Volume 86.6 fL (80.0-98.0); Mean Platelet Volume 10.5 fL (9.4-12.3); Monocytes Absolute Auto 0.1 X10*3/uL (0.1-1.2); Neutrophils Absolute Auto 5.4 x10*3/uL (2.0-8.3); Platelet Count 141 X10*3/uL (160-400); Red Blood Count 5.15 X10*6/uL (4.20-5.50); White Blood Count 6.1 X10*3/uL (4.8-10.8)
[2023-08-16 05:37] LABS: Anion Gap 19 (12-20); Blood Urea Nitrogen 12 mg/dL (9-16); Calcium 9.9 mg/dL (8.4-10.2); Carbon Dioxide 31 mmol/L (22-29); Chloride 95 mmol/L (96-108); Creatinine Clr Calc Pharmacy 94.5; Estimated Glomerular Filt Rate > 60; Glucose Random 200 mg/dL (60-115); Potassium 3.7 mmol/L (3.3-5.1); Sodium 141 mmol/L (135-145)
[2023-08-16] MEDS: Albuterol/Iprat 2.5/0.5MG 3 ML AMPUL.NEB INHALE ×3 (07:24→15:06)
[2023-08-16 07:55] LABS: Glucose, Whole Blood 170 mg/dL (60-115)
--- NOTE | 2023-08-16 08:00 | PC.NURSE ---
alert and oriented, one assist onto commode
[2023-08-16 08:18] LABS: Estimated Average Glucose 131 mg/dL; Hemoglobin A1c % 6.2 % (<6.0)
[2023-08-16] MEDS: Enoxaparin Sodium 40 MG/0.4 ML SYRINGE SUBCUT (08:18)
[2023-08-16] MEDS: 0.9 % Sodium Chloride Flush 3 ML SYRINGE IVFLUSH ×3 (08:18→20:01)
[2023-08-16] MEDS: methylPREDNISolone Sod Succ 40 MG/ML VIAL IVPUSH ×2 (08:18→20:01)
--- NOTE | 2023-08-16 09:09 | PHA.MEDREC ---
Pharmacy Consult ? Medication Reconciliation Pharmacy has completed the medication reconciliation. 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 Patient no longer taking olmesartan, nicotine, fish oil, or simethicone.
--- NOTE | 2023-08-16 09:21 | HE.PHANOTE ---
Re: Methadone Last dose confirmed for methadone 85 mg daily at [facility]. Patient given 14 take home bottles for methadone 85 mg on 08/10/23.
[2023-08-16] MEDS: methADONE HCl 20 MG/2 ML ORAL.CONC 85 MG PO (10:36)
--- NOTE | 2023-08-16 10:42 | PM.EVENT ---
Event Note Date of Service: 08/16/23 Event Note: 57-year-old female with pertinent history of chronic hypoxemic respiratory failure to COPD with baseline 4-5 L supplemental oxygen, hepatitis-C/ethanol cirrhosis, hypertension, hypothyroidism, mixed hyperlipidemia, substance use disorder on methadone, tobacco use disorder who presents to the emergency department for evaluation of dyspnea and bilateral lower extremity. This morning patient feeling better with less shortness of breath, leg swelling and pain On examination awake alert Lungs clear to auscultation Extremities mild edema, no tenderness Assessment/plan #. Acute on chronic hypoxic respiratory failure due to acute exacerbation of COPD: Continue IV steroids. Scheduled and p.r.n. DuoNebs. Continue home inhaler. Uses 4-5 L supplemental oxygen at baseline. will maintain oxygen saturation greater than 88% Chest x-ray showed bibasilar atelectasis will add incentive spirometry. #. Mxn-sluebmp-eazjwhrhc diabetes mellitus with hyperglycemia: Initiating Accu-Cheks sliding scale insulin, stable blood sugars hemoglobin A1c 6.2 #. Hypertension: Continue Norvasc will lower dose to 5 mg likely contributing to leg edema follow BP #. Mood disorder: Continue Zoloft and perphenazine #. Chronic thrombocytopenia due to liver disease, stable #. Substance use disorder: Resume methadone #. Hypothyroidism: Continue Synthroid, TSH 0.57 #. Tobacco use disorder: Counseled regarding cessation. Refused nicotine patch DVT prophylaxis: Lovenox Full code Patient will require continued inpatient hospital stay for supplemental oxygen, monitoring of respiratory status (as above), which is not possible in a lesser acute setting. Time Spent With Patient Time: Total time managing care of this patient today ____ minutes.
[2023-08-16 11:20] LABS: Glucose, Whole Blood 232 mg/dL (60-115)
[2023-08-16] MEDS: Sertraline HCL 100 MG TABLET PO (11:39)
[2023-08-16] MEDS: Sertraline HCL 25 MG TABLET PO (11:39)
[2023-08-16] MEDS: Insulin Lispro 100 UNIT/ML 3 ML VIAL SUBCUT ×2 (11:40→16:35)
--- NOTE | 2023-08-16 12:29 | MHC.CM.PN ---
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
[2023-08-16] MEDS: Acetaminophen 325 MG TABLET 650 MG PO (13:49)
[2023-08-16 16:03] LABS: Glucose, Whole Blood 158 mg/dL (60-115)
[2023-08-16] MEDS: Docusate Sodium 100 MG CAPSULE PO (20:01)
[2023-08-16] MEDS: Perphenazine 4 MG TABLET PO (20:01)
[2023-08-16 20:07] LABS: Glucose, Whole Blood 138 mg/dL (60-115)
[2023-08-17 03:05] VITALS: BP 122/69; PULSE 78; RESP 17; TEMP 36.2; O2SAT 97
--- NOTE | 2023-08-17 03:14 | PC.NURSE ---
o2sat 97% on 5L decreased oxygen to 4L.
[2023-08-17] MEDS: Levothyroxine Sodium 25 MCG TABLET 12.5 MCG PO (05:18)
[2023-08-17] MEDS: Levothyroxine Sodium 200 MCG TABLET PO (05:18)
[2023-08-17] MEDS: Omeprazole 40 MG CAPSULE.DR PO (05:18)
[2023-08-17 07:13] VITALS: BP 132/85; PULSE 78; RESP 18; TEMP 36.1; O2SAT 90
[2023-08-17 07:33] LABS: Glucose, Whole Blood 129 mg/dL (60-115)
[2023-08-17] MEDS: Albuterol/Iprat 2.5/0.5MG 3 ML AMPUL.NEB INHALE ×2 (08:35→11:03)
[2023-08-17 08:38] VITALS: PULSE 87; RESP 18; O2SAT 88
[2023-08-17] MEDS: Enoxaparin Sodium 40 MG/0.4 ML SYRINGE SUBCUT (08:47)
[2023-08-17] MEDS: methylPREDNISolone Sod Succ 40 MG/ML VIAL IVPUSH (08:47)
[2023-08-17] MEDS: methADONE HCl 20 MG/2 ML ORAL.CONC 85 MG PO (08:47)
[2023-08-17] MEDS: Atorvastatin Calcium 40 MG TABLET PO (08:48)
[2023-08-17] MEDS: Docusate Sodium 100 MG CAPSULE PO (08:48)
[2023-08-17] MEDS: Furosemide 20 MG TABLET PO (08:48)
[2023-08-17] MEDS: amLODIPine Besylate 5 MG TABLET PO (08:48)
[2023-08-17] MEDS: 0.9 % Sodium Chloride Flush 3 ML SYRINGE IVFLUSH (08:52)
[2023-08-17] MEDS: Tiotropium Bromide 2.5 mcg 1 PUFF/2.5 MCG MIST.INHAL 2 PUFF INHALE (10:31)
--- NOTE | 2023-08-17 10:36 | P.DS_ITS ---
DS: Providers Provider Date of Service: 08/17/23 Date of admission: 08/16/23 01:41 Primary care physician: Cathleen Sears MD DS: Diagnosis Discharge Diagnosis (1) Acute hypoxemic respiratory failure: Status: Acute (2) COPD (chronic obstructive pulmonary disease): Status: Acute DS: Summary Hospital Course Hospital Course: History of presenting illness: Date of Service: 08/16/23 Chief Complaint: Dyspnea This is a 57-year-old female with pertinent history of chronic hypoxemic respiratory failure to COPD with baseline 4-5 L supplemental oxygen, hepatitis- C/ethanol cirrhosis, hypertension, hypothyroidism, mixed hyperlipidemia, substance use disorder on methadone, tobacco use disorder who presents to the emergency department for evaluation of dyspnea. Patient states she started having dyspnea 1 day prior to presentation. She denies associated cough, chest discomfort or palpitations. Also has associated wheezing and no relief with home inhaler. Patient states she also has pain and swelling of bilateral lower extremity. No orthopnea or PND. No fever, chills, nausea, vomiting, abdominal discomfort, changes in urinary or bowel habits. Patient was found to be hypoxemic at 84% as per EMS on 6 L supplemental oxygen. In the emergency department, patient requiring OxyMask. Hospital course: Acute on chronic hypoxic respiratory failure due to acute COPD exacerbation. 57-year-old woman with chronic hypoxic respiratory failure use 6 L of oxygen with ambulation and 4 L at rest presented to [facility] with 1 day history of shortness of breath in 2-3 weeks' history of bilateral lower extremity swelling and pain patient was noted to be hypoxic 84% as per EMS on 6 L of supplemental oxygen chest x-ray showed bibasilar atelectasis and mild cardiomegaly patient was admitted to [facility] with a diagnosis of acute on chronic hypoxic respiratory failure due to acute COPD exacerbation and treated with IV steroids scheduled and as needed updraft treatment, patient recently had right lower extremity duplex study that showed no DVT, her Norvasc dose was reduced from 10 mg to 5 mg patient noted to have significant improvement in her shortness of breath, her leg edema improved, she has been strongly advised to abstain from smoking she prefers to continue Nicorette gums and declined nicotine patch she is being discharged home on her baseline oxygen, she is recommended to continue home inhalers, does not require steroids upon discharge. In regard to Tvu-xujhska-jpztxlbfa diabetes mellitus with hyperglycemia, she is recommended to resume metformin, hemoglobin A1c 6.2 Hypertension, stable blood pressure dose of Norvasc reduced from 10 mg to 5 mg likely continue beating too edema Mood disorder,Continue Zoloft and perphenazine Chronic thrombocytopenia due to liver disease, stable Substance use disorder recommend to continue methadone Hypothyroidism: Continue Synthroid, TSH 0.57 Hepatitis-C/alcoholic cirrhosis patient currently not drinking recommend outpatient follow-up with GI and consider diuretics if continue to have lower extremity edema. Time Attestation Discharge Coordination Time (in mins): 38 Quality: Safe Use of Opioids Does Pt have an Active Cancer Diagnosis on the Problem List?: No Quality: Stroke Does the patient have a stroke diagnosis?: No Physical Exam Vital Signs: Vital Signs: Last Vital Signs Temp 96.9 F 08/17/23 07:13 Pulse 87 08/17/23 08:38 Resp 18 08/17/23 08:38 BP 132/85 08/17/23 07:13 Pulse Ox 90 L 08/17/23 07:13 O2 Del Method Nasal Cannula 08/17/23 07:13 O2 Flow Rate 4.0 08/17/23 07:13 Oxygen Flow Rate 6 08/15/23 21:35 BMI result Body Mass Index 27.1 Const: Other: General awake alert x3, in no acute distress. Neck supple no JVD. CVS regular rate rhythm, Respiratory lungs clear to auscultation, no respiratory distress, no wheeze, no rhonchi. Gastrointestinal abdomen soft, non tender, bowel sounds audible. Extremities mild bilateral lower extremity edema, improved since admission. Neuro non focal Skin no rash Psych appropriate affect DS: Data Data Completed and Pending Completed studies during hospitalization [Text1]: Procedures Assistance with Respiratory Ventilation, Less than 24 Consecutive Hours, Continuous Positive Airway Pressure (04/20/23) Insertion of Endotracheal Airway into Trachea, Via Natural or Artificial Opening (06/30/23) Insertion of Infusion Device into Superior Vena Cava, Percutaneous Approach (06/30/23) Respiratory Ventilation, Less than 24 Consecutive Hours (06/30/23) Ultrasonography of Superior Vena Cava, Guidance (06/30/23) Labs on day of discharge: Laboratory Results - last 24 hr 08/16/23 08/16/23 08/16/23 11:15 15:54 20:00 POC Glucose 232 H 158 H 138 H 08/17/23 07:17 POC Glucose 129 H Preliminary micro results at discharge 08/15/23 22:15 Blood Culture - Preliminary Blood - Venous No growth after 24 hours. 08/15/23 22:20 Blood Culture - Preliminary Blood - Venous No growth after 24 hours. Discharge Plan Discharge Anticipated Discharge Date/Time: 08/17/23 10:33 Patient Disposition: Home Health Service Discharge Diagnosis: Acute hypoxic respiratory failure due to acute exacerbation of COPD Bilateral lower extremity edema Referrals: [facility] [Other] - 1 Week Cathleen Sears MD [Primary Care Provider] - 1 Week Discharge Medications: New amlodipine [Norvasc] 5 mg tablet 5 mg PO DAILY Qty: 30 0RF Continued albuterol sulfate [ProAir HFA] 90 mcg/actuation Hfa Aerosol Inhaler 2 puff INHALATION Q6H PRN (Reason: Shortness Of Breath Or Wheezing) rosuvastatin 20 mg Tablet 20 mg PO BEDTIME ipratropium-albuterol 0.5 mg-3 mg(2.5 mg base)/3 mL solution for nebulization 3 ml inhalation QID PRN (Reason: wheezing) sertraline 100 mg Tablet 100 mg PO DAILY@1200 hydroxyzine pamoate 50 mg capsule 50 mg PO BID PRN (Reason: Itching or anxiety) fluticasone propion-salmeterol [Advair Diskus] 500-50 mcg/dose blister with device 1 ea INHALATION BID methadone 10 mg/mL Concentrate 85 mg PO DAILY Rx Instructions: [facility] methadone clinic per pt sennosides [senna] 8.6 mg tablet 17.2 mg PO BEDTIME PRN (Reason: constipation) docusate sodium 100 mg capsule 100 mg PO BID metformin 500 mg tablet extended release 24 hr 500 mg PO DAILY@1800 furosemide 20 mg tablet 20 mg PO DAILY levothyroxine 25 mcg tablet 12.5 mcg PO DAILY@0600 pantoprazole 40 mg tablet,delayed release (DR/EC) 40 mg PO DAILY@1200 famotidine [Pepcid] 40 mg tablet 40 mg PO BEDTIME PRN (Reason: Heartburn) perphenazine 4 mg tablet 4 mg PO BEDTIME sertraline 25 mg tablet 25 mg PO DAILY@1200 Incruse Ellipta 62.5 mcg/actuation blister with device 1 inh inhalation DAILY levothyroxine 200 mcg tablet 200 mcg PO DAILY@0600 Discontinued amlodipine 10 mg tablet 10 mg PO DAILY@1200 Discharge Orders: Discharge Order (Routine); Ordered 08/17/23 Ordered By: Suzy Engel Diet: Diabetic diet Activity on Discharge: As tolerated Stand Alone Forms: Patient Portal Discharge page Print Language: Belarusian Care Plan Goals: Hypoxia resolved continue home oxygen as before Reduced dose of Norvasc from 10 mg daily to 5 mg daily Keep legs elevated while sitting Recommend complete abstinence from smoking Health Concerns: Cirrhosis Plan of Treatment: Outpatient follow-up with primary care physician call for appointment Assessment: As above
--- NOTE | 2023-08-17 10:38 | MHC.CM.PN ---
pt dcd home arianne skinner
[2023-08-17 11:06] VITALS: PULSE 86; RESP 18; O2SAT 90
[2023-08-17 11:21] LABS: Glucose, Whole Blood 149 mg/dL (60-115)
--- NOTE | 2023-08-17 12:11 | MHC.CM.PN ---
shuttle booked for pt for 1:30
[2023-08-17] MEDS: Sertraline HCL 25 MG TABLET PO (12:45)
[2023-08-17] MEDS: Sertraline HCL 100 MG TABLET PO (12:45)
[2023-08-17] MEDS: Acetaminophen 325 MG TABLET 650 MG PO (12:45)
== END 2023-08-17 13:26 | disposition home health service (06) | DRG 140 ==
LOC: HO.ED 08-16 01:37 → HO.EDOVER 08-16 01:52 → HO.S3 08-16 07:33
PROVIDERS: Internal Medicine; Admitting Provider Student in an Organized Health Care Education/Training Program; Emergency Provider Student in an Organized Health Care Education/Training Program; PCP Family Medicine; Visit Provider Hospitalist
DX: J44.1 Chronic obstructive pulmonary disease with (acute) exacerbation (principal); J96.21 Acute and chronic respiratory failure with hypoxia; D69.6 Thrombocytopenia, unspecified; K70.30 Alcoholic cirrhosis of liver without ascites; Z99.81 Dependence on supplemental oxygen; E11.65 Type 2 diabetes mellitus with hyperglycemia; I10 Essential (primary) hypertension; F11.20 Opioid dependence, uncomplicated; J98.11 Atelectasis; E78.2 Mixed hyperlipidemia; E03.9 Hypothyroidism, unspecified; F17.210 Nicotine dependence, cigarettes, uncomplicated; Z71.6 Tobacco abuse counseling; Z79.51 Long term (current) use of inhaled steroids; Z79.84 Long term (current) use of oral hypoglycemic drugs; Z79.890 Hormone replacement therapy; Z79.899 Other long term (current) drug therapy
CPT/HCPCS: 36415; 71045; 80048; 80053; 82803; 82947; 83036; 83605; 83880; 85025; 87040; 93005; 94640; 99285; J0692; J1650; J2919; J3475

== ENCOUNTER → 2023-08-15 21:42 | Outpatient (BNV) | payer MEDICAID, SELFPAY | PROVIDERS: Admitting Provider Student in an Organized Health Care Education/Training Program; Emergency Provider Student in an Organized Health Care Education/Training Program; PCP Family Medicine; Visit Provider Internal Medicine Cardiovascular Disease | DX: R06.00 Dyspnea, unspecified (principal) | CPT/HCPCS: 93010 ==

== ENCOUNTER → 2023-08-16 01:41 | Outpatient (BNV) | payer MEDICAID, SELFPAY | PROVIDERS: Admitting Provider Student in an Organized Health Care Education/Training Program; Emergency Provider Student in an Organized Health Care Education/Training Program; PCP Family Medicine; Visit Provider Student in an Organized Health Care Education/Training Program | DX: J96.01 Acute respiratory failure with hypoxia (principal); J44.9 Chronic obstructive pulmonary disease, unspecified; E11.9 Type 2 diabetes mellitus without complications; I10 Essential (primary) hypertension | CPT/HCPCS: 99222; 99239 ==

== ENCOUNTER 2023-09-02 19:11 | Inpatient (IN) | payer MEDICAID, SELFPAY ==
[2023-09-02] VITALS (7 sets, daily range): BP systolic 95–140; BP diastolic 43–90; PULSE 87–110; RESP 18–24; TEMP 36.1; O2SAT 69–94; BMI 22.6
--- NOTE | ~2023-09-02 | US_ITS ---
EXAMINATION: US VENOUS ULTRASOUND WITH DOPPLER LOWER EXTREMITY, BILATERAL CLINICAL INFORMATION: Pain, redness, warmth COMPARISON: 08/01/2023 TECHNIQUE: Ultrasound of the deep veins is performed from the hip to the calf with compression sonography and color and pulse Doppler assessment. Spectral analysis with color-flow imaging is performed. FINDINGS: RIGHT: There is normal venous compression and respiratory variation and augmented flow. The visualized common femoral vein, superficial femoral vein, profunda femoral vein, popliteal vein, and the trifurcation region shows no evidence of deep venous thrombosis. Popliteal fossa cyst measures 4.4 x 2.0 x 2.0 cm. Additional cystic structure in the popliteal fossa measures 2.7 x 0.6 x 1.1 cm. Mildly prominent lymph node in the groin, which may be reactive. Edema noted extending from the popliteal fossa to the distal calf. LEFT: There is normal venous compression and respiratory variation and augmented flow. The visualized common femoral vein, superficial femoral vein, profunda femoral vein, popliteal vein, and the trifurcation region shows no evidence of deep venous thrombosis. There is no significant popliteal fossa cyst. Edema noted extending from the popliteal fossa to the distal calf. If the patient's symptoms persist, followup ultrasound in 5 days 7 days might be of value to exclude proximal propagation from a non-visualized calf vein. US/US venous duplex LE IMPRESSION: 1. No DVT demonstrated in the bilateral lower extremities. 2. Right popliteal fossa cysts measuring up to 4.4 cm. 3. Bilateral lower extremity edema.
--- NOTE | ~2023-09-02 | XR_ITS ---
EXAMINATION: XR CHEST CLINICAL INFORMATION: Shortness of breath. COMPARISON: Prior chest radiographs, most recently 08/15/2023; CT chest dated 07/01/2023. TECHNIQUE: Frontal view of the chest was obtained. FINDINGS: The heart, great vessels, pulmonary vasculature and mediastinum are stable. There is moderate plate-like atelectasis at the right base. There is mild left base scar/subsegmental atelectasis. A left pericardial fat pad is redemonstrated. No new infiltrate, effusion or pneumothorax is seen. There is no acute osseous abnormality. XR/XR chest 1V IMPRESSION: 1. There is bibasilar linear atelectasis, right greater than left. 2. No infiltrate or congestive heart failure is seen.
--- NOTE | 2023-09-02 19:14 | ED_ITS ---
HPI - SOB/Dyspnea General Chief Complaint: Dyspnea Stated Complaint: SOB, 68% with duoneb, 90% with CPAP Time Seen by Provider: 09/02/23 19:13 Source: patient Mode of arrival: ambulatory Limitations: no limitations History of Present Illness ED Provider: purvi SMITH Narrative: Patient with history of COPD , chronic smoker on 6 L of oxygen at home 18/10 been feeling short of breath for last few weeks got worse last few days family reports she was unarousable saturating 69% on 6 L of oxygen EMS arrived [employer] [place] CPAP with improvement to 91% patient does have chronic leg edema been coughing a lot lately with no fever or chills denies any chest pain no recent fall patient just discharged on 08/17/23 for similar presentation Related Data Home Medications ?Medication ?Instructions ?Recorded ?Confirmed albuterol sulfate 90 mcg/actuation 2 puff inhalation Q6H PRN 03/11/20 08/16/23 aerosol inhaler (ProAir HFA) Shortness Of Breath Or Wheezing rosuvastatin 20 mg tablet 20 mg PO BEDTIME 03/11/20 08/16/23 perphenazine 4 mg tablet 4 mg PO BEDTIME 09/24/21 08/16/23 levothyroxine 200 mcg tablet 200 mcg PO DAILY@0610/01/22 08/16/23 sertraline 25 mg tablet 25 mg PO DAILY@119910/01/22 08/16/23 umeclidinium 62.5 mcg/actuation 1 inh inhalation DAILY 10/01/22 08/16/23 blister powder for inhalation (Incruse Ellipta) fluticasone 500 mcg-salmeterol 50 1 ea inhalation BID 04/20/23 08/16/23 mcg/dose blistr powdr for inhalation (Advair Diskus) hydroxyzine pamoate 50 mg capsule 50 mg PO BID PRN Itching or anxiety 04/20/23 08/16/23 ipratropium 0.5 mg-albuterol 3 mg 3 ml inhalation QID PRN wheezing 04/20/23 08/16/23 (2.5 mg base)/3 mL nebulization soln sertraline 100 mg tablet 100 mg PO DAILY@1200 04/20/23 08/16/23 methadone 10 mg/mL oral concentrate 85 mg PO DAILY 04/21/23 08/16/23 docusate sodium 100 mg capsule 100 mg PO BID constipation 07/01/23 08/16/23 metformin 500 mg tablet,extended 500 mg PO DAILY@1800 07/01/23 08/16/23 release 24 hr sennosides 8.6 mg tablet (senna) 17.2 mg PO BEDTIME PRN constipation 07/01/23 08/16/23 famotidine 40 mg tablet (Pepcid) 40 mg PO BEDTIME PRN Heartburn 08/16/23 08/16/23 furosemide 20 mg tablet 20 mg PO DAILY 08/16/23 08/16/23 levothyroxine 25 mcg tablet 12.5 mcg PO DAILY@0600 08/16/23 08/16/23 pantoprazole 40 mg tablet,delayed 40 mg PO DAILY@1200 08/16/23 08/16/23 release Previous Rx's ?Medication ?Instructions ?Recorded amlodipine 5 mg tablet (Norvasc) 5 mg PO DAILY #30 tabs 08/17/23 Allergies Allergy/AdvReac Type Severity Reaction Status Date / Time Penicillins [PENICILLINS] Allergy Unknown RED ITCHY Verified 09/02/23 19:23 RASH SEAFOOD Allergy Unknown FEVER Uncoded 09/02/23 19:23 SWELLING Review of Systems 2 Review of Systems: Yes all other systems are reviewed and are negative PMFSH Past Medical History Medical History COPD (chronic obstructive pulmonary disease) Methadone dependence Alcoholic cirrhosis Acute respiratory failure, unspecified whether with hypoxia or hypercapnia Hyperlipidemia Psychosis Hypoxia Acute exacerbation of chronic obstructive airways disease Hepatitis C HTN (hypertension) Hypothyroid COPD (chronic obstructive pulmonary disease) Family History Family History Father HTN (hypertension) Mother Gastritis Ovarian cancer Arthritis Son Thyroid disease Other Hypothyroid Social History Social History Household Members: Significant Other Housing: Apartment Do you presently have visiting nurse or other home services: Yes Alcohol intake: current Alcohol intake frequency: does not drink Patient Tobacco Use Status: Current everyday Tobacco user Tobacco use type: Cigarette Cigarette Packs Per Day: 1 Cigarettes Per Day: 10 Years Smoked: 23 e-Cigarette/Vaping Use: Never Used Second Hand Smoke Exposure: No Substance Use Type: Heroin Advance Directives: Yes Advance Directives on File: Yes Advance Directives Date on File: 08/18/23 service: No Current occupational status: unemployed Physical Exam 2 Vital Signs: Vital Signs: Last Vital Signs Temp 96.9 F 09/02/23 19:20 Pulse 100 09/02/23 23:28 Resp 19 09/02/23 23:28 BP 105/48 L 09/02/23 23:30 Pulse Ox 94 09/02/23 23:28 O2 Del Method CPAP 09/02/23 23:28 BMI result Body Mass Index 22.6 Appearance: Alert. Oriented X3. Severe respiratory distress Eyes: No pallor or icterus ENT: Pharynx normal. Oral Mucosa moist Neck: Normal inspection. Neck supple. CVS: Normal heart rate and rhythm. Pulses normal. Respiratory: Severe respiratory distress. Equal air entry bilateral, bilateral wheezing Abdomen: Soft and nontender. Bowel sounds are present, no mass palpable, no CVA tenderness Skin: Skin warm and dry. Normal skin color. Normal skin turgor. Extremities: 1+ lower extremity edema. No calf tenderness Neuro: Oriented X 3. No motor deficit. Medications Administered Generic Name Dose Route Start Last Admin Trade Name Freq PRN Reason Stop Dose Admin Albuterol/Ipratropium 3 ml 09/02/23 20:03 09/02/23 23:05 Albuterol/Iprat 2.5/0.5mg 3 Ml Ampul.Neb INHALE 3 ml RQ4H PRN Administration Wheezing Enoxaparin Sodium 40 mg 09/02/23 20:15 09/02/23 21:32 Enoxaparin Sodium 40 Mg/0.4 Ml Syringe SUBCUT 40 mg Q24H MAYRA Administration Azithromycin 500 mg/ Sodium 250 mls @ 125 mls/hr 09/02/23 20:30 09/03/23 01:43 Chloride IV Infused Q24H MAYRA Infusion Insulin Human Lispro 0 unit 09/02/23 21:00 09/02/23 21:37 Insulin Lispro 100 Unit/Ml 3 Ml Vial SUBCUT 2 unit QIDACHS MAYRA Administration Protocol Sodium Chloride 3 ml 09/03/23 00:00 09/03/23 01:18 0.9 % Sodium Chloride Flush 3 Ml Syringe IVFLUSH Not Given QSHIFT MAYRA Discontinued Medications Generic Name Dose Route Start Last Admin Trade Name Freq PRN Reason Stop Dose Admin Albuterol Sulfate 7.5 mg/ 0 mg 09/02/23 19:28 09/02/23 19:33 Albuterol/Ipratropium 3 ml INHALE 09/02/23 19:29 10 each ONCE ONE Administration Magnesium Sulfate 2 gm in 50 mls @ 150 mls/hr 09/02/23 19:26 09/02/23 20:56 Magnesium Sulfate/H2o IV 09/02/23 19:45 Infused ONCE ONE Infusion Ceftriaxone Sodium 1 gm/ 50 mls @ 100 mls/hr 09/02/23 19:30 09/02/23 21:32 Sodium Chloride IV 09/02/23 19:59 Infused ONCE ONE Infusion Vancomycin HCl 1,500 mg/ 500 mls @ 333.333 mls/hr 09/02/23 20:23 09/02/23 23:20 Sodium Chloride IV 09/02/23 21:52 Infused ONCE ONE Infusion Albumin Human 100 mls @ 133.333 mls/hr 09/02/23 23:45 09/03/23 01:43 Kedbumin 25 % IV 09/03/23 01:29 133.33 mls/hr Q1H MAYRA Administration Methylprednisolone Sodium Succinate 125 mg 09/02/23 19:26 09/02/23 19:54 Methylprednisolone Sod Succ 125 Mg/2 Ml Vial IVPUSH 09/02/23 19:27 125 mg ONCE ONE Administration Medical Decision Making Medical Decision Making [facility] Narrative: Patient with chronic respiratory failure with COPD smoker came with acute shortness of breath treated with CPAP initially and nebulizing treatment and steroids IV antibiotics started patient has improved during stay in the ER no CHF or infiltrates venous Doppler negative for DVTs will admit patient for acute on chronic hypoxia with hypercapnia Differential Diagnosis Differential Diagnoses: The differential diagnosis associated with the presentation includes Admission/Observation Consideration of admission/observation: Escalation of care including admission/observation considered Consult Healthcare Provider Management of the patient was discussed with: Hospitalist Lab Data [facility] Lab Attestation statement: I reviewed the patient's lab results. 09/02/23 19:28 09/02/23 19:30 Labs: Lab Results 09/02/23 09/02/23 09/02/23 Range/Units 19:28 19:30 19:34 WBC 7.0 (4.8-10.8) X10*3/uL RBC 5.56 H (4.20-5.50) X10*6/uL Hgb 15.3 (12.0-16.0) g/dl Hct 50.3 H (37.0-47.0) % MCV 90.5 (80.0-98.0) fL MCH 27.5 (27.0-33.0) pg MCHC 30.4 L (31.0-35.0) g/dl RDW 17.0 H (11.0-16.0) % Plt Count 144 L (160-400) X10*3/uL MPV 11.1 (9.4-12.3) fL Immature Gran % (Auto) 0.1 (0.0-0.4) % Neut % (Auto) 50.1 (45-73) % Lymph % (Auto) 36.5 (20-40) % [place] % (Auto) 9.3 (2-11) % Eos % (Auto) 3.3 (0-4) % Baso % (Auto) 0.7 (0-2) % Lymph # (Auto) 2.5 (1.2-4.9) X10*3/uL [place] # (Auto) 0.7 (0.1-1.2) X10*3/uL Eos # (Auto) 0.2 (0.0-0.4) X10*3/uL Baso # (Auto) 0.1 (0.0-0.2) X10*3/uL Abs Immat Gran (auto) 0.01 (0.00-0.03) X10*3/uL Absolute Neuts (auto) 3.5 (2.0-8.3) x10*3/uL Absolute Nucleated RBC 0.000 (0.0-0.012) X10*3/uL Nucleated RBC % (auto) 0.0 (0.0-0.2) /100WBC VBG pH 7.37 (7.32-7.43) VBG pCO2 74 mmHg VBG pO2 57 mmHg VBG HCO3 43 H (22-26) mmol/L VBG O2 Saturation 91.0 % VBG Base Excess 13.9 mmol/L Sodium 141 (135-145) mmol/L Potassium 4.7 D (3.3-5.1) mmol/L Chloride 96 (96-108) mmol/L Carbon Dioxide 34 H (22-29) mmol/L Anion Gap 16 (12-20) BUN 8 L (9-16) mg/dL Creatinine 0.64 (0.5-1.4) mg/dL Estim Creat Clear Calc 91.8 Estimated GFR > 60 Random Glucose 94 (60-115) mg/dL Calcium 9.7 (8.4-10.2) mg/dL Magnesium 2.2 (1.6-2.6) mg/dL Total Bilirubin 0.6 (0.0-1.0) mg/dL AST 23 (5-31) U/L ALT 17 (0-31) U/L Alkaline Phosphatase 107 (39-117) U/L Troponin I High Sens < 2.7 (<3.5-17.0) ng/L B-Natriuretic Peptide 26 (<100) pg/mL Total Protein 7.9 (6.5-8.0) g/dL Albumin 4.1 (3.5-5.0) g/dL Influenza Type A (PCR) NEGATIVE (Negative) Influenza Type B (PCR) NEGATIVE (Negative) RSV RNA Qual (PCR) NEGATIVE (Negative) SARS-CoV-2 RNA (RT-PCR) NEGATIVE (Negative) ABG Data Attestation ABG: I personally reviewed and interpreted this ABG as follows: Independent Interpretation I performed an independent interpretation of an: EKG Interpretation: Normal sinus rhythm with sinus arrhythmia heart rate 91 beats per minute left axis deviation no acute ST elevation no acute ischemia Radiology Impression Discussion of test interpretation with radiology: I have reviewed the radiologist's reading. Critical Care Time Critical Care Time Critical Care Time: Yes Total Critical Care Time: 65 Attestation: The patient was critically ill with a high probability of imminent or life threatening deterioration. I spent greater than 70???minutes of discontinuous time evaluating the patient,delivering critical care at the bedside, discussing and evaluating pertinent data with consultants. Critical care time does not include time spent performing separately billable procedures or teaching. Total time spent performing critical care was 65???minutes. Discharge Plan Discharge Clinical Impression: Acute exacerbation of chronic obstructive airways disease, Acute respiratory failure with hypoxia and hypercapnia Patient Disposition: Admitted As Inpatient
--- NOTE | 2023-09-02 19:22 | ECG_ITS ---
Test Reason : SOB Blood Pressure : / mmHG Vent. Rate : 091 BPM Atrial Rate : 091 BPM P-R Int : 166 ms QRS Dur : 090 ms QT Int : 388 ms P-R-T Axes : 032 -66 037 degrees QTc Int : 477 ms Normal sinus rhythm with sinus arrhythmia Left axis deviation Abnormal ECG When compared with ECG of 15-AUG-2023 21:45, No significant change was found Referred By: Joel Roman Electronically Signed By:SEBASTIAN VAN MD
[2023-09-02] MEDS: Albuterol Sulfate 7.5 MG, Albuterol/Iprat 2.5/0.5MG 3 ML 3 ML INHALE (19:33)
[2023-09-02 19:37] LABS: MANUAL DIFF FLAG NO
[2023-09-02 19:38] LABS: Basophils Absolute Auto 0.1 X10*3/uL (0.0-0.2); Basophils Percent Auto 0.7 % (0-2); Eosinophils Absolute Auto 0.2 X10*3/uL (0.0-0.4); Eosinophils Percent Auto 3.3 % (0-4); Hematocrit 50.3 % (37.0-47.0); Hemoglobin 15.3 g/dl (12.0-16.0); Imm Gran Abs Auto 0.01 X10*3/uL (0.00-0.03); Imm Gran Pct Auto 0.1 % (0.0-0.4); Lymphocytes Absolute Auto 2.5 X10*3/uL (1.2-4.9); Lymphocytes Percent Auto 36.5 % (20-40); Mean Corpuscular HGB Conc 30.4 g/dl (31.0-35.0); Mean Corpuscular Hemoglobin 27.5 pg (27.0-33.0); Mean Corpuscular Volume 90.5 fL (80.0-98.0); Mean Platelet Volume 11.1 fL (9.4-12.3); Monocytes Absolute Auto 0.7 X10*3/uL (0.1-1.2); Monocytes Percent Auto 9.3 % (2-11); Neutrophils Absolute Auto 3.5 x10*3/uL (2.0-8.3); Neutrophils Percent Auto 50.1 % (45-73); Platelet Count 144 X10*3/uL (160-400); Red Blood Count 5.56 X10*6/uL (4.20-5.50)
[2023-09-02 19:42] LABS: VBG Base Excess 13.9 mmol/L; VBG HCO3 43 mmol/L (22-26); VBG pCO2 74 mmHg; VBG pH 7.37 (7.32-7.43); VBG pO2 57 mmHg
[2023-09-02 19:47] LABS: Venous Blood Gas Refer to POC result
[2023-09-02] MEDS: methylPREDNISolone Sod Succ 125 MG/2 ML VIAL IVPUSH (19:54)
[2023-09-02] MEDS: Magnesium Sulfate/H2O 2 GM/50 ML PIGGYBACK IV (20:01)
[2023-09-02 20:05] LABS: B Type Natriuretic Peptide 26 pg/mL (<100)
--- NOTE | 2023-09-02 20:05 | P.HPHOSP_ITS ---
History of Present Illness Date of Service: 09/02/23 Chief Complaint: dyspnea This is a 57-year-old female with pertinent history of chronic hypoxemic respiratory failure to COPD with baseline 5-6 L supplemental oxygen, hepatitis- C/ethanol cirrhosis, hypertension, hypothyroidism, mixed hyperlipidemia, substance use disorder on methadone, tobacco use disorder who presents to the emergency department for evaluation of dyspnea. Patient states symptoms started 2 weeks prior to presentation. She has been having dyspnea with exertion which has been progressive. Also has associated purulent cough and wheezing. Continues to smoke cigarettes. Patient also complains of leg pain and right lower leg redness. She denies chest discomfort or palpitations. No orthopnea or PND. No fever, chills, nausea, vomiting, abdominal discomfort, changes in urinary or bowel habits. In the emergency department, patient found to be wheezing despite multiple DuoNeb treatments. She was also found to be satting 84% on 6 L home O2 Review of Systems 2 Constitutional: Constitutional: Reports no additional constitutional complaints Cardiovascular: Cardiovascular: Reports dyspnea on exertion Respiratory: Respiratory: Reports cough, Reports dyspnea on exertion and Reports wheezing Gastrointestinal: Gastrointestinal: Reports no additional gastrointestinal complaints Genitourinary: Genitourinary: Reports no additional female genitourinary complaints Allergic/Immunologic: Allergic/Immunologic: Reports wheezing [facility] Medical History COPD (chronic obstructive pulmonary disease) Methadone dependence Alcoholic cirrhosis Acute respiratory failure, unspecified whether with hypoxia or hypercapnia Hyperlipidemia Psychosis Hypoxia Acute exacerbation of chronic obstructive airways disease Hepatitis C HTN (hypertension) Hypothyroid COPD (chronic obstructive pulmonary disease) Family History Father HTN (hypertension) Mother Gastritis Ovarian cancer Arthritis Son Thyroid disease Other Hypothyroid Social History Household Members: Significant Other Housing: Apartment Do you presently have visiting nurse or other home services: Yes Alcohol intake: current Alcohol intake frequency: does not drink Patient Tobacco Use Status: Current everyday Tobacco user Tobacco use type: Cigarette Cigarette Packs Per Day: 1 Cigarettes Per Day: 10 Years Smoked: 23 e-Cigarette/Vaping Use: Never Used Second Hand Smoke Exposure: No Substance Use Type: Heroin Advance Directives: Yes Advance Directives on File: Yes Advance Directives Date on File: 08/18/23 service: No Current occupational status: unemployed Meds Allergies Allergy/AdvReac Type Severity Reaction Status Date / Time Penicillins [PENICILLINS] Allergy Unknown RED ITCHY Verified 09/02/23 19:23 RASH SEAFOOD Allergy Unknown FEVER Uncoded 09/02/23 19:23 SWELLING Home Medications ?Medication ?Instructions ?Recorded ?Confirmed ?Last Taken ?Type albuterol sulfate 90 mcg/actuation 2 puff inhalation Q6H PRN 03/11/20 08/16/23 Unknown History aerosol inhaler (ProAir HFA) Shortness Of Breath Or Wheezing rosuvastatin 20 mg tablet 20 mg PO BEDTIME 03/11/20 08/16/23 08/15/23 History perphenazine 4 mg tablet 4 mg PO BEDTIME 09/24/21 08/16/23 08/15/23 History levothyroxine 200 mcg tablet 200 mcg PO DAILY@0600 10/01/22 08/16/23 08/15/23 History sertraline 25 mg tablet 25 mg PO DAILY@1200 10/01/22 08/16/23 08/15/23 History umeclidinium 62.5 mcg/actuation 1 inh inhalation DAILY 10/01/22 08/16/23 08/15/23 History blister powder for inhalation (Incruse Ellipta) fluticasone 500 mcg-salmeterol 50 1 ea inhalation BID 04/20/23 08/16/23 08/15/23 History mcg/dose blistr powdr for inhalation (Advair Diskus) hydroxyzine pamoate 50 mg capsule 50 mg PO BID PRN Itching or anxiety 04/20/23 08/16/23 Unknown History ipratropium 0.5 mg-albuterol 3 mg 3 ml inhalation QID PRN wheezing 04/20/23 08/16/23 Unknown History (2.5 mg base)/3 mL nebulization soln sertraline 100 mg tablet 100 mg PO DAILY@1200 04/20/23 08/16/23 08/15/23 History methadone 10 mg/mL oral concentrate 85 mg PO DAILY 04/21/23 08/16/23 08/15/23 History docusate sodium 100 mg capsule 100 mg PO BID constipation 07/01/23 08/16/23 08/15/23 History metformin 500 mg tablet,extended 500 mg PO DAILY@1800 07/01/23 08/16/23 08/15/23 History release 24 hr sennosides 8.6 mg tablet (senna) 17.2 mg PO BEDTIME PRN constipation 07/01/23 08/16/23 Unknown History famotidine 40 mg tablet (Pepcid) 40 mg PO BEDTIME PRN Heartburn 08/16/23 08/16/23 Unknown History furosemide 20 mg tablet 20 mg PO DAILY 08/16/23 08/16/23 08/15/23 History levothyroxine 25 mcg tablet 12.5 mcg PO DAILY@0600 08/16/23 08/16/23 08/15/23 History pantoprazole 40 mg tablet,delayed 40 mg PO DAILY@1200 08/16/23 08/16/23 08/15/23 History release Physical Exam 2 Vital Signs and Narrative: Vital Signs: Last Vital Signs Temp 96.9 F 09/02/23 19:20 Pulse 87 09/02/23 19:34 Resp 20 09/02/23 19:34 BP 118/76 09/02/23 19:20 Pulse Ox 90 L 09/02/23 19:20 O2 Del Method CPAP 09/02/23 19:20 BMI result Body Mass Index 22.6 Middle-aged female lying in bed in mild distress on supplemental oxygen Neck supple, no JVD Regular rate and rhythm, S1-S2 heard Bilateral wheezing present Abdomen soft nontender, no guarding, no rigidity Patient is awake, alert and oriented to self, place, time and person ; no focal motor deficit Psych: Normal mood Right lower extremity with erythema, tenderness and warmth ; bilateral pedal edema seen Results Labs 09/02/23 19:28 09/02/23 19:30 Labs: Laboratory Results - last 24 hr 09/02/23 09/02/23 19:28 19:34 MCV 90.5 MCH 27.5 MCHC 30.4 L RDW 17.0 H Plt Count 144 L MPV 11.1 Immature Gran % (Auto) 0.1 Neut % (Auto) 50.1 Lymph % (Auto) 36.5 [place] % (Auto) 9.3 Eos % (Auto) 3.3 Baso % (Auto) 0.7 Lymph # (Auto) 2.5 [place] # (Auto) 0.7 Eos # (Auto) 0.2 Baso # (Auto) 0.1 Abs Immat Gran (auto) 0.01 Absolute Neuts (auto) 3.5 Absolute Nucleated RBC 0.000 Nucleated RBC % (auto) 0.0 VBG pH 7.37 VBG pCO2 74 VBG pO2 57 VBG HCO3 43 H VBG O2 Saturation 91.0 VBG Base Excess 13.9 Assessment and Plan (1) Acute exacerbation of chronic obstructive airways disease: Status: Acute Plan This is a 57-year-old female with pertinent history of chronic hypoxemic respiratory failure to COPD with baseline 5-6 L supplemental oxygen, hepatitis- C/ethanol cirrhosis, hypertension, hypothyroidism, mixed hyperlipidemia, substance use disorder on methadone, tobacco use disorder who presents to the emergency department for evaluation of dyspnea. #. Acute on chronic hypoxic respiratory failure due to acute exacerbation of COPD: Will admit patient and initiate systemic steroids. Scheduled and p.r.n. DuoNebs. Continue home inhaler. Initiating azithromycin for pleiotropic effect #. Right lower extremity cellulitis: Initiating empiric IV antibiotics. Monitor for improvement #. Bilateral pedal edema: due to venous stasis. No CHF. Venous duplex pending. #. Rgv-wvnjiyy-ywjgvjkco diabetes mellitus with hyperglycemia: Initiating Accu-Cheks sliding scale insulin #. Hypertension: Continue Norvasc #. Mood disorder: Continue Zoloft and perphenazine #. Chronic thrombocytopenia due to liver disease #. Substance use disorder: On methadone #. Hypothyroidism: Synthroid #. Tobacco use disorder: Counseled regarding cessation. Refused nicotine patch Med rec pending DVT prophylaxis: Lovenox Full code Admit as inpatient and will require two night minimum hospital stay for supplemental oxygen, IV antibiotics, monitoring of respiratory status (as above), which is not possible in a lesser acute setting. Quality Stroke Does the patient have a stroke diagnosis?: No VTE Prior VTE?: No VTE Risk Level:: Medical - moderate - high VTE Device Contraindication: Treatment Not Indicated VTE Drug Contraindication: N/A - Med Ordered
[2023-09-02 20:07] LABS: Alanine Aminotransferase 17 U/L (0-31); Albumin Level 4.1 g/dL (3.5-5.0); Alkaline Phosphatase 107 U/L (39-117); Anion Gap 16 (12-20); Aspartate Amino Transferase 23 U/L (5-31); Bilirubin Total 0.6 mg/dL (0.0-1.0); Blood Urea Nitrogen 8 mg/dL (9-16); Calcium 9.7 mg/dL (8.4-10.2); Carbon Dioxide 34 mmol/L (22-29); Chloride 96 mmol/L (96-108); Creatinine Clr Calc Pharmacy 91.8; Estimated Glomerular Filt Rate > 60; Glucose Random 94 mg/dL (60-115); Magnesium 2.2 mg/dL (1.6-2.6); Potassium 4.7 mmol/L (3.3-5.1); Sodium 141 mmol/L (135-145); Total Protein 7.9 g/dL (6.5-8.0)
[2023-09-02 20:26] LABS: Influenza A PCR NEGATIVE (Negative); Influenza B PCR NEGATIVE (Negative); Resp Syncy Virus RNA Qual PCR NEGATIVE (Negative); SARS COV2 PCR INHOUSE NEGATIVE (Negative)
[2023-09-02 20:28] LABS: Troponin-I High Sensitivity < 2.7 ng/L (<3.5-17.0)
--- NOTE | 2023-09-02 20:54 | PC.NURSE ---
pt 85% on 6L oxymask. aware, resp at bedside
[2023-09-02] MEDS: Albuterol/Iprat 2.5/0.5MG 3 ML AMPUL.NEB INHALE ×2 (21:00→23:05)
[2023-09-02] MEDS: cefTRIAXone sodium 1 GM in 0.9 % Sodium Chloride 50 ML IV (21:01)
[2023-09-02 21:13] LABS: Lactic Acid 1.5 mmol/L (0.5-2.0)
[2023-09-02 21:14] LABS: Glucose, Whole Blood 178 mg/dL (60-115)
[2023-09-02 21:15] LABS: Prothrombin Time 11.6 SEC (11.1-13.3)
[2023-09-02] MEDS: vancomycin HCL 1,500 MG in 0.9 % Sodium Chloride 500 ML 333.33 MG IV (21:32)
[2023-09-02] MEDS: Enoxaparin Sodium 40 MG/0.4 ML SYRINGE SUBCUT (21:32)
[2023-09-02] MEDS: Insulin Lispro 100 UNIT/ML 3 ML VIAL SUBCUT (21:37)
--- NOTE | 2023-09-02 22:10 | PC.NURSE ---
pt placed on BiPAP, resting comfortably at this time
--- NOTE | 2023-09-02 22:17 | PC.NURSE ---
timothy wraps applied to bilateral legs per MD. pt tolerated well
--- NOTE | 2023-09-02 22:19 | PHA.PROG ---
Admission Date/Time: September 02, 2023 20:17 Indication: SKIN Weight in k.503 kg Serum Creatinine - Last 168 Hours 09/02/23 19:30 Creatinine 0.64 Estimated CrCl and GFR - Last 168 Hours 09/02/23 19:30 Estim Creat Clear Calc 91.8 Estimated GFR > 60 Vancomycin Loading Dose: 1500mg Current Vancomycin Dosing Regimen: 1000mg q12h Vancomycin Monitoring using AUC goal of 400 - 600 range with trough as surrogate marker: 520, predicted trough 15.6 Date and Time for next Vancomycin Level to be drawn: 09/03 @ 0700 Pharmacist Comments on Vancomycin Plan: Vancomycin dosing will take advantage of [employer] as a clinical decision support tool that uses Bayesian modeling to calculate individual patient's pharmacokinetic parameters and forecast the patient's drug concentration time course with the target goal AUC 24 range of 400 - 600 mg/L/hr.
[2023-09-02] MEDS: Azithromycin 500 MG in 0.9 % Sodium Chloride 250 ML 125 MG IV (23:21)
[2023-09-03] VITALS (8 sets, daily range): BP systolic 101–155; BP diastolic 50–85; PULSE 85–100; RESP 13–22; TEMP 36.7–37.1; O2SAT 89–94
--- NOTE | 2023-09-03 01:19 | PC.NURSE ---
albumin delayed, ABX infusing
--- NOTE | 2023-09-03 01:40 | PC.NURSE ---
assist via w/c to bathroom, pt unable to go on commode. pt tolerated well
[2023-09-03] MEDS: Albumin Human 25 % 100 ML 133.33 ML IV ×2 (01:43→03:08)
[2023-09-03] MEDS: traMADoL HCL 50 MG TABLET PO (02:38)
--- NOTE | 2023-09-03 04:30 | PC.NURSE ---
pt resting in bed with eyes closed, breathing even and unlabored, no apparent distress at this time, call may w/in reach. 91% on 6L oxymask
[2023-09-03 06:29] LABS: Basophils Percent Auto 0.2 % (0-2); Hemoglobin 12.4 g/dl (12.0-16.0); Imm Gran Abs Auto 0.03 X10*3/uL (0.00-0.03); Imm Gran Pct Auto 0.5 % (0.0-0.4); Lymphocytes Absolute Auto 0.5 X10*3/uL (1.2-4.9); Lymphocytes Percent Auto 7.6 % (20-40); MANUAL DIFF FLAG SCAN; Mean Corpuscular Hemoglobin 27.9 pg (27.0-33.0); Mean Corpuscular Volume 89.9 fL (80.0-98.0); Mean Platelet Volume 11.7 fL (9.4-12.3); Monocytes Percent Auto 0.5 % (2-11); Neutrophils Absolute Auto 5.6 x10*3/uL (2.0-8.3); Neutrophils Percent Auto 91.2 % (45-73); Platelet Count 128 X10*3/uL (160-400); Red Blood Count 4.45 X10*6/uL (4.20-5.50); Red Cell Distribution Width 16.8 % (11.0-16.0); SCAN SMEAR FLAG 1; White Blood Count 6.2 X10*3/uL (4.8-10.8)
[2023-09-03 06:48] LABS: Anion Gap 18 (12-20); Blood Urea Nitrogen 13 mg/dL (9-16); Calcium 9.5 mg/dL (8.4-10.2); Carbon Dioxide 30 mmol/L (22-29); Chloride 94 mmol/L (96-108); Creatinine Clr Calc Pharmacy 63.8; Estimated Glomerular Filt Rate > 60; Glucose Random 298 mg/dL (60-115); Potassium 3.6 mmol/L (3.3-5.1); Sodium 138 mmol/L (135-145)
[2023-09-03 07:16] LABS: SLIDE REVIEW VERIFIED
[2023-09-03] MEDS: Albuterol/Iprat 2.5/0.5MG 3 ML AMPUL.NEB INHALE ×4 (07:32→19:36)
--- NOTE | 2023-09-03 07:36 | HE.PHANOTE ---
RE VANCO IN SETTING OF INCREASED SCR, WILL LOWER DOSE AT THIS TIME. WILL CONTINUE WITH SAME TROUGH ORDER. NEW DOSE OF 750 MG Q12H, SUSPECT AUC 514, CORRELATING TO TROUGH OF 16.8. MAY NEED TO ADJUST DOSE AGAIN PENDING UPDATED LABS [facility]
[2023-09-03 07:47] LABS: Glucose, Whole Blood 240 mg/dL (60-115)
[2023-09-03] MEDS: methylPREDNISolone Sod Succ 40 MG/ML VIAL IVPUSH ×2 (08:08→21:48)
[2023-09-03] MEDS: Insulin Lispro 100 UNIT/ML 3 ML VIAL SUBCUT ×2 (08:10→14:02)
[2023-09-03] MEDS: 0.9 % Sodium Chloride Flush 3 ML SYRINGE IVFLUSH ×2 (08:10→16:36)
[2023-09-03] MEDS: vancomycin HCL 750 MG in 0.9 % Sodium Chloride 250 ML 265 MG IV (09:41)
--- NOTE | 2023-09-03 10:11 | PHA.MEDREC ---
Pharmacy Consult ? Medication Reconciliation Pharmacy has completed the medication reconciliation. Spoke with patient through an typing pool supervisor. Patient was instructed by someone to take 2 tablets of her water pill for the fluid in her legs however it was making her super drowsy, going to keep it as one tablet daily (original directions from pharmacy) on her home list. She couldn't remember the name of the water pill but furosemide was the only one in her claims recently filled. She was also discharged on amlodipine 5mg last visit here (normally fills 10mg) but there is not a claim for 5mg and the list she gave me from [facility] still says 10mg. Patient reports methadone dose of 85mg from [facility] on [address] She last took it yesterday (09/01) around 9am, it is administered by her visiting nurse. Confirmed her medications through the [facility] list patient provided, previous discharge papers, and claim history.
--- NOTE | 2023-09-03 12:57 | P.PNIM_ITS ---
Subjective Subjective Date of Service: 09/03/23 Interval History: seen and examined reports feeling better this AM but still not at baseline states she was told to increase her furosemide from 1 tab to 2 and thinks that is making her more fatigued no other complaints Review of Systems Negative except HPI/interval history. Physical Exam 2 Vital Signs: Vital Signs: Last Vital Signs Temp 98.0 F 09/03/23 06:32 Pulse 85 09/03/23 11:19 Resp 16 09/03/23 11:19 BP 101/50 L 09/03/23 06:32 Pulse Ox 91 L 09/03/23 06:32 O2 Del Method Nasal Cannula 09/03/23 06:32 O2 Flow Rate 6 09/03/23 06:32 BMI result Body Mass Index 22.6 Const: Other: General - no acute distress, appears comfortable Cardiovascular - regular rate and rhythm, S1-S2 Lungs - poor air entry globally; tachypnea and increased work of breathing with minimal exertion (i.e 2 minute coversation) Abdomen - soft, nontender, no rebound or guarding Extremities - timothy bandages removed, minimal edema; RLE -- do not appreciate significant erythema / tenderness / swelling Neuro - awake and alert, no focal deficits Objective Data Active Medications Acetaminophen (Acetaminophen 325 Mg Tablet) 650 mg PO Q6H PRN PRN Reason: Pain, Mild (Pain Scale 1-3) Albuterol/Ipratropium (Albuterol/Iprat 2.5/0.5mg 3 Ml Ampul.Neb) 3 ml INHALE RQ4H WHILE AWAKE [facility] Last Admin: 09/03/23 11:18 Dose: 3 ml Documented By: JUVE Albuterol/Ipratropium (Albuterol/Iprat 2.5/0.5mg 3 Ml Ampul.Neb) 3 ml INHALE RQ4H PRN PRN Reason: Wheezing Last Admin: 09/02/23 23:05 Dose: 3 ml Documented By: KARLEE Enoxaparin Sodium (Enoxaparin Sodium 40 Mg/0.4 Ml Syringe) 40 mg SUBCUT Q24H [facility] Last Admin: 09/02/23 21:32 Dose: 40 mg Documented By: LESLIE Glucose (Glucose Gel 15 Gm Gel..Gram.) 15 gm PO Q15M PRN; Protocol PRN Reason: per Hypoglycemia Standing Ord. Azithromycin 500 mg/ Sodium (Chloride) 250 mls @ 125 mls/hr IV Q24H [facility] Last Infusion: 09/03/23 01:43 Dose: Infused Documented By: LESLIE Dextrose (D10) 250 mls @ 750 mls/hr IV Q15M PRN; Protocol PRN Reason: per Hypoglycemia Standing Ord. Vancomycin HCl 750 mg/ Sodium (Chloride) 265 mls @ 265 mls/hr IV Q12H [facility] Last Infusion: 09/03/23 12:28 Dose: Infused Documented By: JM Insulin Human Lispro (Insulin Lispro 100 Unit/Ml 3 Ml Vial) 0 unit SUBCUT QIDACHS [facility]; Protocol Last Admin: 09/03/23 08:10 Dose: 4 unit Documented By: DENNIS Melatonin (Melatonin 3 Mg Tablet) 6 mg PO BEDTIME PRN PRN Reason: Insomnia Methylprednisolone Sodium Succinate (Methylprednisolone Sod Succ 40 Mg/Ml Vial) 40 mg IVPUSH Q12H [facility] Last Admin: 09/03/23 08:08 Dose: 40 mg Documented By: DENNIS Ondansetron HCl (Ondansetron Hcl 4 Mg/2 Ml Vial) 4 mg IVPUSH Q8H PRN PRN Reason: Nausea and Vomiting Pharmacy Consult (Consult Rx Vancomycin Dosing) 1 each MISCELLANE DAILY PRN PRN Reason: Consult order Sodium Chloride (0.9 % Sodium Chloride Flush 3 Ml Syringe) 3 ml IVFLUSH QSHIFT [facility] Last Admin: 09/03/23 08:10 Dose: 3 ml Documented By: DENNIS Labs 09/03/23 05:35 09/03/23 05:35 Labs: Laboratory Results - last 24 hr 09/02/23 09/02/23 09/02/23 19:28 19:30 19:34 MCV 90.5 MCH 27.5 MCHC 30.4 L RDW 17.0 H Plt Count 144 L MPV 11.1 Immature Gran % (Auto) 0.1 Neut % (Auto) 50.1 Lymph % (Auto) 36.5 [place] % (Auto) 9.3 Eos % (Auto) 3.3 Baso % (Auto) 0.7 Lymph # (Auto) 2.5 [place] # (Auto) 0.7 Eos # (Auto) 0.2 Baso # (Auto) 0.1 Abs Immat Gran (auto) 0.01 Absolute Neuts (auto) 3.5 Absolute Nucleated RBC 0.000 Nucleated RBC % (auto) 0.0 Smear Tech's Comments PT INR VBG pH 7.37 VBG pCO2 74 VBG pO2 57 VBG HCO3 43 H VBG O2 Saturation 91.0 VBG Base Excess 13.9 Anion Gap 16 Estim Creat Clear Calc 91.8 Estimated GFR > 60 POC Glucose Random Glucose 94 Lactic Acid Calcium 9.7 Magnesium 2.2 Total Bilirubin 0.6 AST 23 ALT 17 Alkaline Phosphatase 107 Troponin I High Sens < 2.7 B-Natriuretic Peptide 26 Total Protein 7.9 Albumin 4.1 Influenza Type A (PCR) NEGATIVE Influenza Type B (PCR) NEGATIVE RSV RNA Qual (PCR) NEGATIVE SARS-CoV-2 RNA (RT-PCR) NEGATIVE 09/02/23 09/02/23 09/03/23 20:44 21:10 05:35 MCV 89.9 MCH 27.9 MCHC 31.0 RDW 16.8 H Plt Count 128 L MPV 11.7 Immature Gran % (Auto) 0.5 H Neut % (Auto) 91.2 H Lymph % (Auto) 7.6 L [place] % (Auto) 0.5 L Eos % (Auto) 0.0 Baso % (Auto) 0.2 Lymph # (Auto) 0.5 L [place] # (Auto) 0.0 L Eos # (Auto) 0.0 Baso # (Auto) 0.0 Abs Immat Gran (auto) 0.03 Absolute Neuts (auto) 5.6 Absolute Nucleated RBC 0.000 Nucleated RBC % (auto) 0.0 Smear Tech's Comments VERIFIED PT 11.6 INR 1.0 VBG pH VBG pCO2 VBG pO2 VBG HCO3 VBG O2 Saturation VBG Base Excess Anion Gap 18 Estim Creat Clear Calc 63.8 Estimated GFR > 60 POC Glucose 178 H Random Glucose 298 H Lactic Acid 1.5 Calcium 9.5 Magnesium Total Bilirubin AST ALT Alkaline Phosphatase Troponin I High Sens B-Natriuretic Peptide Total Protein Albumin Influenza Type A (PCR) Influenza Type B (PCR) RSV RNA Qual (PCR) SARS-CoV-2 RNA (RT-PCR) 09/03/23 07:28 MCV MCH MCHC RDW Plt Count MPV Immature Gran % (Auto) Neut % (Auto) Lymph % (Auto) [place] % (Auto) Eos % (Auto) Baso % (Auto) Lymph # (Auto) [place] # (Auto) Eos # (Auto) Baso # (Auto) Abs Immat Gran (auto) Absolute Neuts (auto) Absolute Nucleated RBC Nucleated RBC % (auto) Smear Tech's Comments PT INR VBG pH VBG pCO2 VBG pO2 VBG HCO3 VBG O2 Saturation VBG Base Excess Anion Gap Estim Creat Clear Calc Estimated GFR POC Glucose 240 H Random Glucose Lactic Acid Calcium Magnesium Total Bilirubin AST ALT Alkaline Phosphatase Troponin I High Sens B-Natriuretic Peptide Total Protein Albumin Influenza Type A (PCR) Influenza Type B (PCR) RSV RNA Qual (PCR) SARS-CoV-2 RNA (RT-PCR) Assessment and Plan (1) Acute respiratory failure with hypoxia and hypercapnia: Status: Acute Plan 57 yo F with chronic resp. failure on 5-6 liters of O2, COPD, DM, HTN, mood d/o, chronic opiate dependence, hep C/cirrhosis, who presented to [facility] with hypoxia and is found to have acute COPD exacerbation and acute on chronic resp failure. 1. Acute on chronic resp failure due to COPD O2 to keep saturation 88-92 updrafts and systemic steroids currently on zithromax -- will change to doxy (see cellulitis below) 2. RLE cellulitis does not appear to be severe, will change from vancomcyin to doxy -- will cover both #1 and 2 3. DM hold oral, use sliding scale 4. HTN BP soft, hold norvasc and lasix possibly related to increase in lasix dose as outpatient recently (previously on 20, but increased to 40 recently) 5. chronic opiate dependence continue methadone 6. hypothyroidism synthroid 7. Mood continue bseline meds 8. thrombocytopenia about baseline and due to chronic liver dx Full Code DVT pptx, Lovenox Quality Stroke Does the patient have a stroke diagnosis?: No VTE Prior VTE?: No VTE Risk Level:: Medical - moderate - high VTE Device Contraindication: Treatment Not Indicated VTE Drug Contraindication: N/A - Med Ordered
[2023-09-03 13:02] LABS: Glucose, Whole Blood 192 mg/dL (60-115)
[2023-09-03] MEDS: Omeprazole 20 MG CAPSULE.DR PO (14:02)
[2023-09-03] MEDS: Sertraline HCL 25 MG TABLET PO (14:02)
[2023-09-03] MEDS: Sertraline HCL 100 MG TABLET PO (14:02)
--- NOTE | 2023-09-03 16:04 | PC.NURSE ---
attempted to verify pts methadone dose, she reports that she goes to [facility] in [place] - office closed for the day at this time
[2023-09-03 16:33] LABS: Glucose, Whole Blood 192 mg/dL (60-115)
[2023-09-03 18:44] LABS: Glucose, Whole Blood 151 mg/dL (60-115)
[2023-09-03] MEDS: Atorvastatin Calcium 80 MG TABLET PO (21:48)
[2023-09-03] MEDS: Enoxaparin Sodium 40 MG/0.4 ML SYRINGE SUBCUT (21:48)
[2023-09-03] MEDS: Docusate Sodium 100 MG CAPSULE PO (21:48)
[2023-09-03] MEDS: Doxycycline Hyclate 100 MG in 0.9 % Sodium Chloride 250 ML 166.67 MG IV (21:52)
[2023-09-03 23:17] LABS: Glucose, Whole Blood 138 mg/dL (60-115)
[2023-09-04] VITALS (11 sets, daily range): BP systolic 140–173; BP diastolic 82–96; PULSE 77–93; RESP 16–20; TEMP 36.2–36.8; O2SAT 89–93
[2023-09-04] MEDS: Levothyroxine Sodium 25 MCG TABLET 12.5 MCG PO (05:44)
[2023-09-04] MEDS: Omeprazole 20 MG CAPSULE.DR PO (05:45)
[2023-09-04] MEDS: Levothyroxine Sodium 200 MCG TABLET PO (05:45)
[2023-09-04] MEDS: guaiFEN/Codeine SF 200/20/10ML 10 ML LIQUID 5 ML PO (05:48)
[2023-09-04 07:21] LABS: Hematocrit 47.3 % (37.0-47.0); Hemoglobin 14.8 g/dl (12.0-16.0); Mean Corpuscular HGB Conc 31.3 g/dl (31.0-35.0); Mean Corpuscular Hemoglobin 27.7 pg (27.0-33.0); Mean Corpuscular Volume 88.4 fL (80.0-98.0); Mean Platelet Volume 11.4 fL (9.4-12.3); Platelet Count 166 X10*3/uL (160-400); Red Blood Count 5.35 X10*6/uL (4.20-5.50); Red Cell Distribution Width 17.3 % (11.0-16.0)
[2023-09-04 07:39] LABS: Anion Gap 12 (12-20); Blood Urea Nitrogen 13 mg/dL (9-16); Calcium 10.2 mg/dL (8.4-10.2); Carbon Dioxide 37 mmol/L (22-29); Chloride 98 mmol/L (96-108); Creatinine Clr Calc Pharmacy 94.8; Estimated Glomerular Filt Rate > 60; Glucose Random 137 mg/dL (60-115); Potassium 4.4 mmol/L (3.3-5.1); Sodium 143 mmol/L (135-145)
[2023-09-04] MEDS: Albuterol/Iprat 2.5/0.5MG 3 ML AMPUL.NEB INHALE ×4 (07:45→20:01)
[2023-09-04] MEDS: Docusate Sodium 100 MG CAPSULE PO ×2 (08:47→21:07)
[2023-09-04] MEDS: Acetaminophen 325 MG TABLET 650 MG PO (08:47)
[2023-09-04] MEDS: methylPREDNISolone Sod Succ 40 MG/ML VIAL IVPUSH ×2 (08:47→19:35)
[2023-09-04] MEDS: Doxycycline Hyclate 100 MG in 0.9 % Sodium Chloride 250 ML 166.67 MG IV ×2 (08:48→21:08)
[2023-09-04] MEDS: 0.9 % Sodium Chloride Flush 3 ML SYRINGE IVFLUSH ×4 (08:50→19:36)
[2023-09-04 12:09] LABS: Glucose, Whole Blood 161 mg/dL (60-115)
[2023-09-04] MEDS: Insulin Lispro 100 UNIT/ML 3 ML VIAL SUBCUT ×2 (12:35→21:48)
[2023-09-04] MEDS: Sertraline HCL 100 MG TABLET PO (12:35)
[2023-09-04] MEDS: Sertraline HCL 25 MG TABLET PO (12:35)
--- NOTE | 2023-09-04 12:47 | P.PNIM_ITS ---
Subjective Subjective Date of Service: 09/04/23 Interval History: seen and examined feels improving but still AVENDANO with minimal exertion still coughing Review of Systems Negative except HPI/interval history. Physical Exam 2 Vital Signs: Vital Signs: Last Vital Signs Temp 97.9 F 09/04/23 11:25 Pulse 82 09/04/23 12:41 Resp 18 09/04/23 12:41 BP 142/88 H 09/04/23 11:25 Pulse Ox 90 L 09/04/23 07:47 O2 Del Method Nasal Cannula 09/04/23 11:25 O2 Flow Rate 3 09/04/23 11:25 BMI result Body Mass Index 22.6 Const: Other: General - no acute distress, appears comfortable at rest Cardiovascular - regular rate and rhythm, S1-S2 Lungs - improved air entry, diffuse wheezing Abdomen - soft, nontender, no rebound or guarding Extremities - timothy bandages removed, minimal edema; RLE -- do not appreciate significant erythema / tenderness / swelling Neuro - awake and alert, no focal deficits Objective Data Active Medications Acetaminophen (Acetaminophen 325 Mg Tablet) 650 mg PO Q6H PRN PRN Reason: Pain, Mild (Pain Scale 1-3) Last Admin: 09/04/23 08:47 Dose: 650 mg Documented By: CORINNE Albuterol/Ipratropium (Albuterol/Iprat 2.5/0.5mg 3 Ml Ampul.Neb) 3 ml INHALE RQ4H WHILE AWAKE [facility] Last Admin: 09/04/23 12:40 Dose: 3 ml Documented By: JOSE Albuterol/Ipratropium (Albuterol/Iprat 2.5/0.5mg 3 Ml Ampul.Neb) 3 ml INHALE RQ4H PRN PRN Reason: Wheezing Last Admin: 09/02/23 23:05 Dose: 3 ml Documented By: KARLEE Atorvastatin Calcium (Atorvastatin Calcium 80 Mg Tablet) 80 mg PO BEDTIME [facility] Last Admin: 09/03/23 21:48 Dose: 80 mg Documented By: DEON Docusate Sodium (Docusate Sodium 100 Mg Capsule) 100 mg PO BID [facility] Last Admin: 09/04/23 08:47 Dose: 100 mg Documented By: CORINNE Enoxaparin Sodium (Enoxaparin Sodium 40 Mg/0.4 Ml Syringe) 40 mg SUBCUT Q24H [facility] Last Admin: 09/03/23 21:48 Dose: 40 mg Documented By: DEON Famotidine (Famotidine 20 Mg Tablet) 40 mg PO BEDTIME PRN PRN Reason: Heartburn Glucose (Glucose Gel 15 Gm Gel..Gram.) 15 gm PO Q15M PRN; Protocol PRN Reason: per Hypoglycemia Standing Ord. Guaifenesin/Codeine Phosphate (Guaifen/Codeine Sf 200/20/10ml 10 Ml Liquid) 5 ml PO Q6H PRN PRN Reason: Cough Last Admin: 09/04/23 05:48 Dose: 5 ml Documented By: DEON Hydroxyzine HCl (Hydroxyzine Hcl 50 Mg Tablet) 50 mg PO BID PRN PRN Reason: Itching or anxiety Dextrose (D10) 250 mls @ 750 mls/hr IV Q15M PRN; Protocol PRN Reason: per Hypoglycemia Standing Ord. Doxycycline Hyclate 100 mg/ (Sodium Chloride) 250 mls @ 166.67 mls/hr IV BID [facility] Last Infusion: 09/04/23 10:20 Dose: Infused Documented By: CORINNE Insulin Human Lispro (Insulin Lispro 100 Unit/Ml 3 Ml Vial) 0 unit SUBCUT QIDACHS [facility]; Protocol Last Admin: 09/04/23 12:35 Dose: 2 unit Documented By: CORINNE Levothyroxine Sodium (Levothyroxine Sodium 25 Mcg Tablet) 12.5 mcg PO DAILY@0600 [facility] Last Admin: 09/04/23 05:44 Dose: 12.5 mcg Documented By: DEON Levothyroxine Sodium (Levothyroxine Sodium 200 Mcg Tablet) 200 mcg PO DAILY@0600 [facility] Last Admin: 09/04/23 05:45 Dose: 200 mcg Documented By: DEON Melatonin (Melatonin 3 Mg Tablet) 6 mg PO BEDTIME PRN PRN Reason: Insomnia Methadone HCl (Methadone Hcl 20 Mg/2 Ml Oral.Conc) 85 mg PO ONCE ONE Stop: 09/04/23 11:54 Methylprednisolone Sodium Succinate (Methylprednisolone Sod Succ 40 Mg/Ml Vial) 40 mg IVPUSH Q12H [facility] Last Admin: 09/04/23 08:47 Dose: 40 mg Documented By: CORINNE Omeprazole (Omeprazole 20 Mg Capsule.Dr) 20 mg PO DAILY@0630 [facility] Last Admin: 09/04/23 05:45 Dose: 20 mg Documented By: DEON Ondansetron HCl (Ondansetron Hcl 4 Mg/2 Ml Vial) 4 mg IVPUSH Q8H PRN PRN Reason: Nausea and Vomiting Perphenazine (Perphenazine 4 Mg Tablet) 4 mg PO BEDTIME [facility] Last Admin: 09/04/23 00:00 Dose: 4 mg Documented By: DEON Senna (Sennosides 8.6 Mg Tablet) 17.2 mg PO BEDTIME PRN PRN Reason: constipation Sertraline HCl (Sertraline Hcl 25 Mg Tablet) 25 mg PO DAILY@1200 [facility] Last Admin: 09/04/23 12:35 Dose: 25 mg Documented By: CORINNE Sertraline HCl (Sertraline Hcl 100 Mg Tablet) 100 mg PO DAILY@1200 [facility] Last Admin: 09/04/23 12:35 Dose: 100 mg Documented By: CORINNE Sodium Chloride (0.9 % Sodium Chloride Flush 3 Ml Syringe) 3 ml IVFLUSH QSHIFT [facility] Last Admin: 09/04/23 08:50 Dose: 3 ml Documented By: CORINNE Labs 09/04/23 06:49 09/04/23 06:49 Labs: Laboratory Results - last 24 hr 09/03/23 09/03/23 09/03/23 12:56 16:29 18:32 MCV MCH MCHC RDW Plt Count MPV Absolute Nucleated RBC Nucleated RBC % (auto) Anion Gap Estim Creat Clear Calc Estimated GFR POC Glucose 192 H 192 H 151 H Random Glucose Calcium 09/03/23 09/04/23 09/04/23 21:29 06:49 11:31 MCV 88.4 MCH 27.7 MCHC 31.3 RDW 17.3 H Plt Count 166 D MPV 11.4 Absolute Nucleated RBC 0.000 Nucleated RBC % (auto) 0.0 Anion Gap 12 Estim Creat Clear Calc 94.8 Estimated GFR > 60 POC Glucose 138 H 161 H Random Glucose 137 H Calcium 10.2 D Microbiology Microbiology Results: Microbiology 09/02/23 20:44 Blood Culture - Preliminary Blood - Venous No growth after 24 hours. 09/02/23 20:44 Blood Culture - Preliminary Blood - Venous No growth after 24 hours. Assessment and Plan (1) Acute exacerbation of chronic obstructive airways disease: Status: Acute Plan 57 yo F with chronic resp. failure on 5-6 liters of O2, COPD, DM, HTN, mood d/o, chronic opiate dependence, hep C/cirrhosis, who presented to [facility] ED with hypoxia and is found to have acute COPD exacerbation and acute on chronic resp failure. 1. Acute on chronic resp failure due to COPD O2 to keep saturation 88-92 updrafts and systemic steroids doxy 2. RLE cellulitis doxy 3. DM hold oral, use sliding scale 4. HTN BP improved, will restart norvasc at 5mg and lasix upon d/c 5. chronic opiate dependence continue methadone - unable to be verified as clinic is closed, but verified with our pharmacy -- given 85mg during past admission, will give a dose now and can be verified tomorrow. 6. hypothyroidism synthroid 7. Mood continue bseline meds 8. thrombocytopenia about baseline and due to chronic liver dx Full Code DVT pptx, Lovenox pt with ongoing respiratory symptoms with hypoxia and AVENDANO with minimal exertion, therefore, not medically optimized for transition to oral medications and discharge home Quality Stroke Does the patient have a stroke diagnosis?: No VTE Prior VTE?: No VTE Risk Level:: Medical - moderate - high VTE Device Contraindication: Treatment Not Indicated VTE Drug Contraindication: N/A - Med Ordered
[2023-09-04] MEDS: methADONE HCl 20 MG/2 ML ORAL.CONC 85 MG PO (13:19)
[2023-09-04] MEDS: amLODIPine Besylate 5 MG TABLET PO (13:19)
[2023-09-04 16:26] LABS: Glucose, Whole Blood 148 mg/dL (60-115)
[2023-09-04] MEDS: Enoxaparin Sodium 40 MG/0.4 ML SYRINGE SUBCUT (19:36)
[2023-09-04] MEDS: Perphenazine 4 MG TABLET PO ×2 (21:07)
[2023-09-04] MEDS: Atorvastatin Calcium 80 MG TABLET PO (21:07)
[2023-09-04 21:41] LABS: Glucose, Whole Blood 170 mg/dL (60-115)
[2023-09-05 02:51] VITALS: BMI 25.7
[2023-09-05 04:00] VITALS: BP 135/81; PULSE 71; RESP 16; TEMP 36; O2SAT 90
[2023-09-05] MEDS: Levothyroxine Sodium 25 MCG TABLET 12.5 MCG PO (05:48)
[2023-09-05] MEDS: Omeprazole 20 MG CAPSULE.DR PO (05:48)
[2023-09-05] MEDS: Levothyroxine Sodium 200 MCG TABLET PO (05:48)
[2023-09-05 07:34] VITALS: BP 151/96; PULSE 70; RESP 12; TEMP 36.2; O2SAT 92
[2023-09-05 07:35] VITALS: PULSE 72; RESP 18; O2SAT 90
[2023-09-05] MEDS: Albuterol/Iprat 2.5/0.5MG 3 ML AMPUL.NEB INHALE ×2 (07:35→10:40)
[2023-09-05 07:38] LABS: Glucose, Whole Blood 123 mg/dL (60-115)
[2023-09-05 07:49] VITALS: BP 151/96; PULSE 70; RESP 12; TEMP 36.2; O2SAT 92
[2023-09-05] MEDS: Doxycycline Hyclate 100 MG in 0.9 % Sodium Chloride 250 ML 166.67 MG IV (08:16)
[2023-09-05] MEDS: amLODIPine Besylate 5 MG TABLET PO (08:16)
[2023-09-05] MEDS: Docusate Sodium 100 MG CAPSULE PO (08:16)
[2023-09-05] MEDS: methylPREDNISolone Sod Succ 40 MG/ML VIAL IVPUSH (08:16)
[2023-09-05] MEDS: 0.9 % Sodium Chloride Flush 3 ML SYRINGE IVFLUSH (08:17)
--- NOTE | 2023-09-05 09:18 | MHC.CM.PN ---
CM MET WITH PT AT BEDSIDE. PT LIVES WITH SIGNIFICANT OTHER. PT HAS DAILY [facility] SERVICES THROUGH [facility] FOR METHADONE AND ASSESSMENTS. RETURN REFERRAL SENT. PT IS ON 5-6 LITERS 02 AT BASELINE. 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 + HCP PCP DR. MO DP: HOME WITH RESUMPTION OF VNA SERVICES THROUGH [facility] IS THE GOAL. PT MAY HAVE A RIDE HOME, IF NOT WILL GO HOME VIA BLS DUE TO 02 NEEDS. CM WILL CONTINUE TO FOLLOW FOR ANY CHANGE TO DC PLAN/NEEDS
[2023-09-05 10:41] VITALS: PULSE 75; RESP 18; O2SAT 88
--- NOTE | 2023-09-05 10:44 | P.DS_ITS ---
DS: Providers Provider Date of Service: 09/05/23 Date of admission: 09/02/23 20:17 Primary care physician: Cathleen Sears MD DS: Diagnosis Discharge Diagnosis (1) Acute exacerbation of chronic obstructive airways disease: Status: Acute DS: Summary Hospital Course Hospital Course: History and physical as per admitting provider. This is a 57-year-old female with pertinent history of chronic hypoxemic respiratory failure to COPD with baseline 5-6 L supplemental oxygen, hepatitis-C/ethanol cirrhosis, hypertension, hypothyroidism, mixed hyperlipidemia, substance use disorder on methadone, tobacco use disorder who presents to the emergency department for evaluation of dyspnea. Patient states symptoms started 2 weeks prior to presentation. She has been having dyspnea with exertion which has been progressive. Also has associated purulent cough and wheezing. Continues to smoke cigarettes. Patient also complains of leg pain and right lower leg redness. She denies chest discomfort or palpitations. No orthopnea or PND. No fever, chills, nausea, vomiting, abdominal discomfort, changes in urinary or bowel habits. In the emergency department, patient found to be wheezing despite multiple DuoNeb treatments. She was also found to be satting 84% on 6 L home O2 57-year-old woman treated for acute on chronic respiratory failure secondary to COPD exacerbation. Treated with scheduled DuoNebs and IV steroids as well as doxycycline. O2 saturation to be around 88-92%. Patient chronically on 5-6 L oxygen via nasal cannula. Patient is at her baseline at this point with no increased shortness of breath. She will continue 4 more days of prednisone. She was also treated for right lower extremity cellulitis with IV doxycycline but at this point there is no cellulitis noted. Plan is to discharge patient home she is in agreement with this. Diabetes mellitus type 2. Continue home medications Hypertension. Stable blood pressure. Continue amlodipine and lasix History of chronic opiate dependence. On methadone at home, 85 mg daily, last dose 09/05/2023 Hypothyroidism. Continue levothyroxine Mental health. Continue home medications History of thrombocytopenia. At baseline likely secondary to chronic liver disease Time Attestation Discharge Coordination Time (in mins): 35 Quality: Safe Use of Opioids Does Pt have an Active Cancer Diagnosis on the Problem List?: No Quality: Stroke Does the patient have a stroke diagnosis?: No Physical Exam Vital Signs: Vital Signs: Last Vital Signs Temp 97.1 F 09/05/23 07:49 Pulse 75 09/05/23 10:41 Resp 18 09/05/23 10:41 BP 151/96 H 09/05/23 07:49 Pulse Ox 92 09/05/23 07:49 O2 Del Method Nasal Cannula 09/05/23 07:49 O2 Flow Rate 2 09/05/23 07:49 BMI result Body Mass Index 25.7 Appearing in no acute distress head is normocephalic atraumatic eyes pupils are PERRLA sclera is anicteric mouth throat mucous membranes are intact and moist neck is supple no lymphadenopathy, no JVD noted lung sounds are clear to auscultation heart regular rate rhythm, clear S1, S2 positive bowel sounds, abdomen is soft, nontender neuro patient is alert x3, no focal deficits DS: Data Data Completed and Pending Completed studies during hospitalization [Text1]: Procedures Assistance with Respiratory Ventilation, Less than 24 Consecutive Hours, Continuous Positive Airway Pressure (04/20/23) Insertion of Endotracheal Airway into Trachea, Via Natural or Artificial Opening (06/30/23) Insertion of Infusion Device into Superior Vena Cava, Percutaneous Approach (06/30/23) Respiratory Ventilation, Less than 24 Consecutive Hours (06/30/23) Ultrasonography of Superior Vena Cava, Guidance (06/30/23) Labs on day of discharge: Laboratory Results - last 24 hr 09/04/23 09/04/23 09/04/23 11:31 16:23 21:37 POC Glucose 161 H 148 H 170 H 09/05/23 07:35 POC Glucose 123 H Preliminary micro results at discharge 09/02/23 20:44 Blood Culture - Preliminary Blood - Venous No growth after 48 hours. 09/02/23 20:44 Blood Culture - Preliminary Blood - Venous No growth after 48 hours. Discharge Plan Discharge Anticipated Discharge Date/Time: 09/05/23 09:53 Patient Disposition: Home, Self-Care Discharge Diagnosis: Acute on chronic hypoxic respiratory failure COPD exacerbation Referrals: Cathleen Sears MD [Primary Care Provider] - 1 Week Discharge Medications: New prednisone 10 mg tablet 40 mg PO DIRECTED Qty: 16 0RF Rx Instructions: see taper instructions Continued albuterol sulfate [ProAir HFA] 90 mcg/actuation Hfa Aerosol Inhaler 2 puff INHALATION Q6H PRN (Reason: Shortness Of Breath Or Wheezing) rosuvastatin 20 mg Tablet 20 mg PO BEDTIME ipratropium-albuterol 0.5 mg-3 mg(2.5 mg base)/3 mL solution for nebulization 3 ml inhalation QID PRN (Reason: wheezing) sertraline 100 mg Tablet 100 mg PO DAILY@1200 hydroxyzine pamoate 50 mg capsule 50 mg PO BID PRN (Reason: Itching or anxiety) fluticasone propion-salmeterol [Advair Diskus] 500-50 mcg/dose blister with device 1 ea INHALATION BID methadone 10 mg/mL Concentrate 85 mg PO DAILY Rx Instructions: [facility] clinic per pt sennosides [senna] 8.6 mg tablet 17.2 mg PO BEDTIME PRN (Reason: constipation) docusate sodium 100 mg capsule 100 mg PO BID metformin 500 mg tablet extended release 24 hr 500 mg PO DAILY@1800 furosemide 20 mg tablet 20 mg PO DAILY levothyroxine 25 mcg tablet 12.5 mcg PO DAILY@0600 pantoprazole 40 mg tablet,delayed release (DR/EC) 40 mg PO DAILY@1200 famotidine [Pepcid] 40 mg tablet 40 mg PO BEDTIME PRN (Reason: Heartburn) amlodipine 10 mg tablet 10 mg PO DAILY perphenazine 4 mg tablet 4 mg PO BEDTIME sertraline 25 mg tablet 25 mg PO DAILY@1200 Incruse Ellipta 62.5 mcg/actuation blister with device 1 inh inhalation DAILY levothyroxine 200 mcg tablet 200 mcg PO DAILY@0600 Discharge Orders: Discharge Order (Routine); Ordered 09/05/23 Ordered By: Rosanna Herrera Diet: Advance to usual diet Activity on Discharge: As tolerated Stand Alone Forms: Patient Portal Discharge page Print Language: [place]ralt[place] Care Plan Goals: Continue using baseline oxygen Treated for acute on chronic respiratory failure secondary to COPD exacerbation Health Concerns: Acute on chronic respiratory failure secondary to COPD exacerbation Right lower extremity cellulitis Plan of Treatment: Follow-up primary care provider as needed Take all medications as prescribed Assessment: See discharge summary
[2023-09-05] MEDS: methADONE HCl 20 MG/2 ML ORAL.CONC 85 MG PO (11:08)
--- NOTE | 2023-09-05 11:08 | MHC.CM.PN ---
DP:PT HAS BEEN MEDICALLY CLEARED FOR DC HOME WITH RESUMPTION OF [facility] SERVICES. [facility] UPDATED ON TODAY'S DC. BLS TRANSPORT BOOKED FOR 1 PM [facility]IA [facility] DUE TO 02 NEEDS.
[2023-09-05] MEDS: Sertraline HCL 100 MG TABLET PO (11:09)
[2023-09-05] MEDS: Sertraline HCL 25 MG TABLET PO (11:09)
[2023-09-05 11:18] LABS: Glucose, Whole Blood 157 mg/dL (60-115)
[2023-09-05] MEDS: Insulin Lispro 100 UNIT/ML 3 ML VIAL SUBCUT (11:23)
[2023-09-05 11:38] VITALS: BP 147/83; PULSE 89; RESP 16; TEMP 36.4; O2SAT 88
== END 2023-09-05 12:52 | disposition home or self-care (01) | DRG 140 ==
LOC: HO.ED 20:17 → HO.EDOVER 21:00 → HO.IMC 09-03 19:34 → HO.S3 09-04 16:11
PROVIDERS: Family Medicine; Admitting Provider Student in an Organized Health Care Education/Training Program; Emergency Provider Internal Medicine; PCP Family Medicine; Visit Provider Nurse Practitioner Acute Care
DX: J44.1 Chronic obstructive pulmonary disease with (acute) exacerbation (principal); J96.21 Acute and chronic respiratory failure with hypoxia; D69.59 Other secondary thrombocytopenia; K70.30 Alcoholic cirrhosis of liver without ascites; Z99.81 Dependence on supplemental oxygen; L03.115 Cellulitis of right lower limb; I87.323 Chronic venous hypertension (idiopathic) with inflammation of bilateral lower extremity; E78.2 Mixed hyperlipidemia; E03.9 Hypothyroidism, unspecified; F11.20 Opioid dependence, uncomplicated; F17.210 Nicotine dependence, cigarettes, uncomplicated; Z20.822 Contact with and (suspected) exposure to COVID-19; Z71.6 Tobacco abuse counseling; Z79.51 Long term (current) use of inhaled steroids; Z79.84 Long term (current) use of oral hypoglycemic drugs; Z79.890 Hormone replacement therapy; Z79.899 Other long term (current) drug therapy
CPT/HCPCS: 0241U; 36415; 71045; 80048; 80053; 82803; 82947; 83605; 83735; 83880; 84484; 85025; 85027; 85610; 87040; 93005; 93970; 94640; 94660; 99285; J0456; J0696; J1650; J2919; J3370; J3371; J3475; P9047

== ENCOUNTER → 2023-09-02 19:22 | Outpatient (BNV) | payer MEDICAID, SELFPAY | PROVIDERS: Admitting Provider Student in an Organized Health Care Education/Training Program; Emergency Provider Internal Medicine; Visit Provider Internal Medicine Cardiovascular Disease | DX: R06.02 Shortness of breath (principal) | CPT/HCPCS: 93010 ==

== ENCOUNTER → 2023-09-02 20:17 | Outpatient (BNV) | payer MEDICAID, SELFPAY | PROVIDERS: Admitting Provider Student in an Organized Health Care Education/Training Program; Emergency Provider Internal Medicine; Visit Provider Student in an Organized Health Care Education/Training Program | DX: J96.01 Acute respiratory failure with hypoxia (principal); J96.02 Acute respiratory failure with hypercapnia; J44.1 Chronic obstructive pulmonary disease with (acute) exacerbation; L03.115 Cellulitis of right lower limb | CPT/HCPCS: 99222; 99232; 99239 ==

== ENCOUNTER 2023-10-04 10:37 | Outpatient (REF) | payer MEDICAID, SELFPAY ==
--- NOTE | ~2023-10-04 | XR_ITS ---
EXAMINATION: XR FOOT, LEFT CLINICAL INFORMATION: Left foot pain, 6 well aerated and redness after fall on Tuesday COMPARISON: None available. TECHNIQUE: AP, lateral, and oblique views of the left foot. FINDINGS: Mildly displaced fracture of the second distal phalanx. Remaining bony structures are intact, alignment and articulations are maintained. Minor plantar calcaneal spurring. XR/XR foot LT min 3V IMPRESSION: Fracture second toe
== END 2023-10-04 10:38 | disposition home or self-care (01) ==
LOC: HO.HHCX 10:37
PROVIDERS: Visit Provider Family Medicine
DX: M79.672 Pain in left foot (principal); R60.0 Localized edema
CPT/HCPCS: 73630

== ENCOUNTER 2023-10-06 15:07 | Inpatient (IN) | payer MEDICAID, SELFPAY ==
[2023-10-06] VITALS (22 sets, daily range): BP systolic 77–181; BP diastolic 31–86; PULSE 84–122; RESP 13–32; TEMP 36.6–37.7; O2SAT 87–96; BMI 27.1
--- NOTE | ~2023-10-06 | XR_ITS ---
EXAMINATION: XR FOOT, LEFT CLINICAL INFORMATION: Left-sided foot pain. Mild swelling. COMPARISON: Left foot October 04, 2023 TECHNIQUE: AP, lateral, and oblique views of the left foot. FINDINGS: Redemonstration of the fracture of the distal phalange of the second toe. No change in alignment of fracture fragments since prior study. No new fracture. No dislocation. Small plantar calcaneal spur. XR/XR foot LT 2V IMPRESSION: Redemonstration of fracture of the distal phalange of the second toe.
--- NOTE | ~2023-10-06 | XR_ITS ---
EXAMINATION: XR CHEST CLINICAL INFORMATION: Shortness of breath COMPARISON: 09/02/2023 and selected priors TECHNIQUE: Frontal view of the chest was obtained. FINDINGS: Portable upright film obtained at reduced lung volumes. This causes some crowding of the lung bases. Overall, bibasilar atelectasis appears improved. Heart, mediastinum and central vasculature is more prominent on current study than on prior exams. However this may be artifactual due to hypoventilation. Recommend short interval follow-up with fully inspiratory PA and lateral radiographs. Blunting of the left lateral costophrenic angle is a chronic finding likely due to prominent epicardial fat pad. No definite effusion on portable frontal radiography. No large pneumothorax. Nonobstructive gas pattern. No acute osseous finding. XR/XR chest 1V IMPRESSION: Low lung volumes. Overall atelectasis is improved compared with 09/02/2023. Prominent heart, mediastinum and central vasculature may be artifactual. Recommend short-term follow-up with PA and lateral views
--- NOTE | 2023-10-06 15:29 | ECG_ITS ---
Test Reason : SOB Blood Pressure : / mmHG Vent. Rate : 117 BPM Atrial Rate : 117 BPM P-R Int : 186 ms QRS Dur : 076 ms QT Int : 320 ms P-R-T Axes : 018 -81 064 degrees QTc Int : 446 ms Poor data quality Sinus tachycardia with Premature atrial complexes Left axis deviation Abnormal ECG When compared with ECG of 02-SEP-2023 19:29, Poor data quality in current ECG precludes serial comparison Referred By: Kalani Rodríguez Electronically Signed By:Johny Velazco
--- NOTE | 2023-10-06 15:33 | ED_ITS ---
HPI - SOB/Dyspnea General Chief Complaint: Dyspnea Stated Complaint: SOB, 95% 8LPM NRB PER EMS Time Seen by Provider: 10/06/23 15:22 History of Present Illness HPI Narrative: Patient is a 57-year-old female with a history of COPD baseline on 4 L of oxygen was noted to have sudden onset of shortness of breath generalized malaise nausea. Noted to be satting at approximately 70% on the 4 L setting. Sent in for further evaluation. Positive coughing upper respiratory symptoms. Related Data Home Medications ?Medication ?Instructions ?Recorded ?Confirmed albuterol sulfate 90 mcg/actuation 2 puff inhalation Q6H PRN 03/11/20 09/03/23 aerosol inhaler (ProAir HFA) Shortness Of Breath Or Wheezing rosuvastatin 20 mg tablet 20 mg PO BEDTIME 03/11/20 09/03/23 perphenazine 4 mg tablet 4 mg PO BEDTIME 09/24/21 09/03/23 levothyroxine 200 mcg tablet 200 mcg PO DAILY@0600 10/01/22 09/03/23 sertraline 25 mg tablet 25 mg PO DAILY@1200 10/01/22 09/03/23 umeclidinium 62.5 mcg/actuation 1 inh inhalation DAILY 10/01/22 09/03/23 blister powder for inhalation (Incruse Ellipta) fluticasone 500 mcg-salmeterol 50 1 ea inhalation BID 04/20/23 09/03/23 mcg/dose blistr powdr for inhalation (Advair Diskus) hydroxyzine pamoate 50 mg capsule 50 mg PO BID PRN Itching or anxiety 04/20/23 09/03/23 ipratropium 0.5 mg-albuterol 3 mg 3 ml inhalation QID PRN wheezing 04/20/23 09/03/23 (2.5 mg base)/3 mL nebulization soln sertraline 100 mg tablet 100 mg PO DAILY@1200 04/20/23 09/03/23 methadone 10 mg/mL oral concentrate 85 mg PO DAILY 04/21/23 08/16/23 docusate sodium 100 mg capsule 100 mg PO BID constipation 07/01/23 09/03/23 metformin 500 mg tablet,extended 500 mg PO DAILY@1800 07/01/23 09/03/23 release 24 hr sennosides 8.6 mg tablet (senna) 17.2 mg PO BEDTIME PRN constipation 07/01/23 09/03/23 famotidine 40 mg tablet (Pepcid) 40 mg PO BEDTIME PRN Heartburn 08/16/23 09/03/23 furosemide 20 mg tablet 20 mg PO DAILY 08/16/23 09/03/23 levothyroxine 25 mcg tablet 12.5 mcg PO DAILY@0600 08/16/23 09/03/23 pantoprazole 40 mg tablet,delayed 40 mg PO DAILY@1200 08/16/23 09/03/23 release amlodipine 10 mg tablet 10 mg PO DAILY 09/03/23 09/03/23 Previous Rx's ?Medication ?Instructions ?Recorded prednisone 10 mg tablet 40 mg (4 x 10 mg) PO DIRECTED 09/05/23 #16 tabs Allergies Allergy/AdvReac Type Severity Reaction Status Date / Time Penicillins [PENICILLINS] Allergy Unknown RED ITCHY Verified 10/06/23 15:17 RASH SEAFOOD Allergy Unknown FEVER Uncoded 10/06/23 15:17 SWELLING Review of Systems 2 Review of Systems: Positive coughing congestion upper respiratory symptoms Yes all other systems are reviewed and are negative [facility] Past Medical History Attestation statement: The following information was validated with the patient. Medical History COPD (chronic obstructive pulmonary disease) Methadone dependence Alcoholic cirrhosis Acute respiratory failure, unspecified whether with hypoxia or hypercapnia Hyperlipidemia Psychosis Hypoxia Acute exacerbation of chronic obstructive airways disease Hepatitis C HTN (hypertension) Hypothyroid COPD (chronic obstructive pulmonary disease) Family History Family History Father HTN (hypertension) Mother Gastritis Ovarian cancer Arthritis Son Thyroid disease Other Hypothyroid Social History Social History Household Members: Significant Other Household Members Other:: 1 Housing: Apartment Do you presently have visiting nurse or other home services: Yes (daily) Alcohol intake: current Alcohol intake frequency: does not drink Patient Tobacco Use Status: Current everyday Tobacco user Tobacco use type: Cigarette Cigarette Packs Per Day: 1 Cigarettes Per Day: 20.0 Years Smoked: 30 e-Cigarette/Vaping Use: Never Used Second Hand Smoke Exposure: No Substance Use Type: Heroin Advance Directives: Yes Advance Directives on File: Yes Advance Directives Date on File: 08/18/23 service: No Current occupational status: unemployed Physical Exam 2 Vital Signs: Vital Signs: Last Vital Signs Temp 98.8 F 10/06/23 18:00 Pulse 102 H 10/06/23 19:38 Resp 21 H 10/06/23 19:38 BP 112/62 10/06/23 18:00 Pulse Ox 89 L 10/06/23 18:00 O2 Del Method BiPAP 10/06/23 18:00 O2 Flow Rate 11 10/06/23 15:15 Oxygen Flow Rate 10/06/23 15:14 BMI result Body Mass Index 27.1 Appearance: Increased work of breathing shortness of breath Eyes: Pupils equal, round and reactive to light. ENT: Pharynx normal. Neck: Normal inspection. Neck supple. No lymph nodes noted. No crepitus CVS: Normal heart rate and rhythm. Pulses normal. Normal S1 and S2 Respiratory: Positive wheezing bilaterally diminished breath sounds bilaterally Abdomen: Soft and nontender. No rigidity. No distention. good BS x4 Skin: Skin warm and dry. Normal skin color. Normal skin turgor. Extremities: No lower extremity edema. Neurovascular intact to all extremities. No Lacerations. No Rash Neuro: Oriented X 3. No motor deficit. No sensory deficit. Moving all extermities. No slurred speech Medications Administered Discontinued Medications Generic Name Dose Route Start Last Admin Trade Name Freq PRN Reason Stop Dose Admin Albuterol Sulfate 7.5 mg/ 10 mg 10/06/23 15:29 10/06/23 15:36 Albuterol Sulfate 2.5 mg INHALE 10/06/23 15:30 Not Given ONCE ONE Levalbuterol HCl 5 mg/ 0 mg 10/06/23 15:29 10/06/23 15:35 Ipratropium [place] 0.5 mg INHALE 10/06/23 15:30 1 dose ONCE ONE Administration Albuterol Sulfate 7.5 mg/ 0 mg 10/06/23 19:38 10/06/23 19:42 Albuterol/Ipratropium 3 ml INHALE 10/06/23 19:39 10 each ONCE ONE Administration Cefepime HCl 1 gm/ Sodium 50 mls @ 100 mls/hr 10/06/23 15:30 10/06/23 16:57 Chloride IV 10/06/23 15:59 Infused ONCE ONE Infusion Magnesium Sulfate 2 gm in 50 mls @ 150 mls/hr 10/06/23 15:31 10/06/23 16:49 Magnesium Sulfate/H2o IV 10/06/23 15:50 Infused ONCE ONE Infusion Acetaminophen 1,000 mg in 100 mls @ 400 mls/hr 10/06/23 15:33 10/06/23 16:57 Ofirmev IV 10/06/23 15:47 Infused ONCE ONE Infusion Methylprednisolone Sodium Succinate 125 mg 10/06/23 15:30 10/06/23 16:23 Methylprednisolone Sod Succ 125 Mg/2 Ml Vial IVPUSH 10/06/23 15:31 125 mg ONCE ONE Administration Medical Decision Making Medical Decision Making MDM Narrative: History of multiple ED visits in the past for shortness of breath. Patient presented in extremis. Continuous albuterol neb was given. ABG was done. My interpretation of patient's ABG showed acute on chronic respiratory acidosis with a pH of 7.27 pCO2 of greater than 80. BiPAP was started. Glass Vial Filler was contacted. Will repeat ABG. Currently there is no bed available at [facility]. Informed by the fiction and nonfiction writer prose that beds were open up in approximately 2 hours. Will continue to treat patient closely. Cultures were obtained antibiotic was started. 19:00 Patient was placed on BiPAP for the next 2-1/2 hours. Repeat ABG interpretation showed a pH of 7.25 pCO2 is 90 worsening acute on chronic respiratory acidosis. Additional BiPAP setting was changed. Will monitor carefully. Glass Vial Filler kept informed. Most likely will require ICU stay. Differential Diagnosis Differential Diagnoses: The differential diagnosis associated with the presentation includes Pneumonia, COPD, respiratory failure Admission/Observation Consideration of admission/observation: Escalation of care including admission/observation considered Consult Healthcare Provider Management of the patient was discussed with: Wood Scrap Handler (Glass Vial Filler) Lab Data [facility] Lab Attestation statement: I reviewed the patient's lab results. 10/06/23 15:42 10/06/23 16:25 Labs: Lab Results 10/06/23 10/06/23 10/06/23 Range/Units 15:38 15:42 16:25 WBC 8.0 (4.8-10.8) X10*3/uL RBC 5.60 H (4.20-5.50) X10*6/uL Hgb 15.7 (12.0-16.0) g/dl Hct 50.7 H (37.0-47.0) % MCV 90.5 (80.0-98.0) fL MCH 28.0 (27.0-33.0) pg MCHC 31.0 (31.0-35.0) g/dl RDW 17.4 H (11.0-16.0) % Plt Count 181 (160-400) X10*3/uL MPV 11.0 (9.4-12.3) fL Immature Gran % (Auto) 0.4 (0.0-0.4) % Neut % (Auto) 67.2 (45-73) % Lymph % (Auto) 23.1 (20-40) % [place] % (Auto) 6.8 (2-11) % Eos % (Auto) 2.0 (0-4) % Baso % (Auto) 0.5 (0-2) % Lymph # (Auto) 1.8 (1.2-4.9) X10*3/uL [place] # (Auto) 0.5 (0.1-1.2) X10*3/uL Eos # (Auto) 0.2 (0.0-0.4) X10*3/uL Baso # (Auto) 0.0 (0.0-0.2) X10*3/uL Abs Immat Gran (auto) 0.03 (0.00-0.03) X10*3/uL Absolute Neuts (auto) 5.3 (2.0-8.3) x10*3/uL Absolute Nucleated RBC 0.000 (0.0-0.012) X10*3/uL Nucleated RBC % (auto) 0.0 (0.0-0.2) /100WBC O2 Saturation 95.0 % ABG pH at Pt Temp 7.27 L (7.35-7.45) ABG pCO2 at Pt Temp 86 H* (32-45) mmHg ABG pO2 at Pt Temp 77 L (83-108) mmHg ABG HCO3 40 H (22-26) mmol/L ABG Base Excess (Actual) 9.0 mmol/L Sodium 138 (135-145) mmol/L Potassium 4.8 (3.3-5.1) mmol/L Chloride 99 (96-108) mmol/L Carbon Dioxide 31 H (22-29) mmol/L Anion Gap 13 (12-20) BUN 13 (9-16) mg/dL Creatinine 0.76 (0.5-1.4) mg/dL Estim Creat Clear Calc 83.2 Estimated GFR > 60 Random Glucose 116 H (60-115) mg/dL Lactic Acid 0.7 (0.5-2.0) mmol/L Calcium 9.6 (8.4-10.2) mg/dL Troponin I High Sens 2.7 (<3.5-17.0) ng/L Influenza Type A (PCR) NEGATIVE (Negative) Influenza Type B (PCR) NEGATIVE (Negative) RSV RNA Qual (PCR) NEGATIVE (Negative) SARS-CoV-2 RNA (RT-PCR) NEGATIVE (Negative) 10/06/23 Range/Units 18:23 WBC (4.8-10.8) X10*3/uL RBC (4.20-5.50) X10*6/uL Hgb (12.0-16.0) g/dl Hct (37.0-47.0) % MCV (80.0-98.0) fL MCH (27.0-33.0) pg MCHC (31.0-35.0) g/dl RDW (11.0-16.0) % Plt Count (160-400) X10*3/uL MPV (9.4-12.3) fL Immature Gran % (Auto) (0.0-0.4) % Neut % (Auto) (45-73) % Lymph % (Auto) (20-40) % [place] % (Auto) (2-11) % Eos % (Auto) (0-4) % Baso % (Auto) (0-2) % Lymph # (Auto) (1.2-4.9) X10*3/uL [place] # (Auto) (0.1-1.2) X10*3/uL Eos # (Auto) (0.0-0.4) X10*3/uL Baso # (Auto) (0.0-0.2) X10*3/uL Abs Immat Gran (auto) (0.00-0.03) X10*3/uL Absolute Neuts (auto) (2.0-8.3) x10*3/uL Absolute Nucleated RBC (0.0-0.012) X10*3/uL Nucleated RBC % (auto) (0.0-0.2) /100WBC O2 Saturation 93.0 % ABG pH at Pt Temp 7.23 L (7.35-7.45) ABG pCO2 at Pt Temp 91 H* (32-45) mmHg ABG pO2 at Pt Temp 73 L (83-108) mmHg ABG HCO3 39 H (22-26) mmol/L ABG Base Excess (Actual) 7.2 mmol/L Sodium (135-145) mmol/L Potassium (3.3-5.1) mmol/L Chloride (96-108) mmol/L Carbon Dioxide (22-29) mmol/L Anion Gap (12-20) BUN (9-16) mg/dL Creatinine (0.5-1.4) mg/dL Estim Creat Clear Calc Estimated GFR Random Glucose (60-115) mg/dL Lactic Acid (0.5-2.0) mmol/L Calcium (8.4-10.2) mg/dL Troponin I High Sens (<3.5-17.0) ng/L Influenza Type A (PCR) (Negative) Influenza Type B (PCR) (Negative) RSV RNA Qual (PCR) (Negative) SARS-CoV-2 RNA (RT-PCR) (Negative) ABG Data ABG Results: Acute on chronic respiratory acidosis Independent Interpretation I performed an independent interpretation of an: EKG (It showed a sinus rhythm heart rate is 120 poor quality.) and Plain X-Ray (My interpretation patient's EKG showed no gross infiltrate) Radiology Impression Discussion of test interpretation with radiology: I have reviewed the radiologist's reading. Independent Historian Clinical information obtained from an independent historian. History obtained from or confirmed by: EMS External Record Review External record reviewed: Inpatient record Chronic Conditions COPD Critical Care Time Critical Care Time Critical Care Time: Yes Total Critical Care Time: 90 Attestation: I have personally provided 90 minutes of critical care time exclusive of time spent on separately billable procedures. ?Time includes review of lab data, radiology results, discussion with consultants, and monitoring for potential decompensation. ?Interventions were performed as documented above Discharge Plan Discharge Clinical Impression: Respiratory failure Patient Disposition: Admitted As Inpatient Prescriptions: No Action albuterol sulfate [ProAir HFA] 90 mcg/actuation Hfa Aerosol Inhaler 2 puff INHALATION Q6H PRN (Reason: Shortness Of Breath Or Wheezing) rosuvastatin 20 mg Tablet 20 mg PO BEDTIME ipratropium-albuterol 0.5 mg-3 mg(2.5 mg base)/3 mL solution for nebulization 3 ml inhalation QID PRN (Reason: wheezing) sertraline 100 mg Tablet 100 mg PO DAILY@1200 hydroxyzine pamoate 50 mg capsule 50 mg PO BID PRN (Reason: Itching or anxiety) fluticasone propion-salmeterol [Advair Diskus] 500-50 mcg/dose blister with device 1 ea INHALATION BID methadone 10 mg/mL Concentrate 85 mg PO DAILY Rx Instructions: [facility] methadone clinic per pt sennosides [senna] 8.6 mg tablet 17.2 mg PO BEDTIME PRN (Reason: constipation) docusate sodium 100 mg capsule 100 mg PO BID metformin 500 mg tablet extended release 24 hr 500 mg PO DAILY@1800 furosemide 20 mg tablet 20 mg PO DAILY levothyroxine 25 mcg tablet 12.5 mcg PO DAILY@0600 pantoprazole 40 mg tablet,delayed release (DR/EC) 40 mg PO DAILY@1200 famotidine [Pepcid] 40 mg tablet 40 mg PO BEDTIME PRN (Reason: Heartburn) amlodipine 10 mg tablet 10 mg PO DAILY prednisone 10 mg tablet 40 mg PO DIRECTED Qty: 16 0RF Rx Instructions: see taper instructions perphenazine 4 mg tablet 4 mg PO BEDTIME sertraline 25 mg tablet 25 mg PO DAILY@1200 Incruse Ellipta 62.5 mcg/actuation blister with device 1 inh inhalation DAILY levothyroxine 200 mcg tablet 200 mcg PO DAILY@0600 Print Language: Micronesian
[2023-10-06] MEDS: levalbuterol HCL 5 MG, Ipratropium Bromide 0.5 MG INHALE (15:35)
[2023-10-06 15:48] LABS: ABG HCO3 40 mmol/L (22-26); ABG pCO2 86 mmHg (32-45); ABG pH 7.27 (7.35-7.45); ABG pO2 77 mmHg (83-108)
[2023-10-06 15:49] LABS: MANUAL DIFF FLAG NO
[2023-10-06 15:53] LABS: Basophils Percent Auto 0.5 % (0-2); Eosinophils Absolute Auto 0.2 X10*3/uL (0.0-0.4); Hematocrit 50.7 % (37.0-47.0); Hemoglobin 15.7 g/dl (12.0-16.0); Imm Gran Abs Auto 0.03 X10*3/uL (0.00-0.03); Imm Gran Pct Auto 0.4 % (0.0-0.4); Lymphocytes Absolute Auto 1.8 X10*3/uL (1.2-4.9); Lymphocytes Percent Auto 23.1 % (20-40); Mean Corpuscular Volume 90.5 fL (80.0-98.0); Monocytes Absolute Auto 0.5 X10*3/uL (0.1-1.2); Monocytes Percent Auto 6.8 % (2-11); Neutrophils Absolute Auto 5.3 x10*3/uL (2.0-8.3); Neutrophils Percent Auto 67.2 % (45-73); Platelet Count 181 X10*3/uL (160-400); Red Cell Distribution Width 17.4 % (11.0-16.0)
[2023-10-06 16:00] LABS: Lactic Acid 0.7 mmol/L (0.5-2.0)
[2023-10-06] MEDS: cefEPime HCl 1 GM in 0.9 % Sodium Chloride 50 ML IV (16:23)
[2023-10-06] MEDS: methylPREDNISolone Sod Succ 125 MG/2 ML VIAL IVPUSH (16:23)
[2023-10-06] MEDS: Acetaminophen 1,000 MG/100 ML PIGGYBACK 400 MG IV (16:24)
[2023-10-06] MEDS: Magnesium Sulfate/H2O 2 GM/50 ML PIGGYBACK IV (16:24)
[2023-10-06 16:45] LABS: Anion Gap 13 (12-20); Blood Urea Nitrogen 13 mg/dL (9-16); Calcium 9.6 mg/dL (8.4-10.2); Carbon Dioxide 31 mmol/L (22-29); Chloride 99 mmol/L (96-108); Creatinine Clr Calc Pharmacy 83.2; Estimated Glomerular Filt Rate > 60; Glucose Random 116 mg/dL (60-115); Potassium 4.8 mmol/L (3.3-5.1); Sodium 138 mmol/L (135-145)
[2023-10-06 16:55] LABS: Troponin-I High Sensitivity 2.7 ng/L (<3.5-17.0)
[2023-10-06 17:11] LABS: Influenza A PCR NEGATIVE (Negative); Influenza B PCR NEGATIVE (Negative); Resp Syncy Virus RNA Qual PCR NEGATIVE (Negative); SARS COV2 PCR INHOUSE NEGATIVE (Negative)
[2023-10-06 18:19] LABS: ABG Refer to POC result
[2023-10-06 18:31] LABS: ABG Base Excess 7.2 mmol/L; ABG HCO3 39 mmol/L (22-26); ABG pCO2 91 mmHg (32-45); ABG pH 7.23 (7.35-7.45); ABG pO2 73 mmHg (83-108)
[2023-10-06] MEDS: Albuterol Sulfate 7.5 MG, Albuterol/Iprat 2.5/0.5MG 3 ML 3 ML INHALE (19:42)
[2023-10-06 20:14] LABS: Venous Blood Gas Refer to POC result
[2023-10-06 20:15] LABS: VBG Base Excess 9.7 mmol/L; VBG HCO3 40 mmol/L (22-26); VBG pCO2 84 mmHg; VBG pH 7.28 (7.32-7.43); VBG pO2 66 mmHg
--- NOTE | 2023-10-06 20:25 | P.HPCC_ITS ---
History of Present Illness Date of Service: 10/06/23 Attending physician on admission: Lois Wilhelm Chief Complaint: Dyspnea The patient is a 57-year-old macedonian speaking female with a past medical history of COPD on home 02 at 4-6L,? hepatitis C, cirrhosis,? hypertension, hypothyroidism, hyperlipidemia, Substance abuse (on methadone), and tobacco use? who presented to the emergency? department with dyspnea.? Patient presented to the emergency department with? dyspnea. ? Patient reported acute shortness of breath,? satting 70% on 4L baseline O2.? she has a reported cough and respiratory symptoms.? ? Laboratory data was? consistent with respiratory acidosis,? 7.27/86/77/40,? she was placed on BiPAP.? ED course: She received albuterol, Solu-Medrol 125, cefepime and magnesium 2gm Patient admitted to ICU for hemodynamic monitoring of acute hypoxic and hypercapnic respiratory failure secondary to COPD exacerbation requiring BiPAP support Review of Systems 2 Review of Systems: Yes all other systems are reviewed and are negative Cardiovascular: Cardiovascular: Reports dyspnea Respiratory: Respiratory: Reports cough, Denies hemoptysis, Reports dyspnea and Reports wheezing Musculoskeletal: Comments: left foot pain Allergic/Immunologic: Allergic/Immunologic: Reports wheezing PMFSH Past Medical History Medical History COPD (chronic obstructive pulmonary disease) Methadone dependence Alcoholic cirrhosis Acute respiratory failure, unspecified whether with hypoxia or hypercapnia Hyperlipidemia Psychosis Hypoxia Acute exacerbation of chronic obstructive airways disease Hepatitis C HTN (hypertension) Hypothyroid COPD (chronic obstructive pulmonary disease) Family History Family History Father HTN (hypertension) Mother Gastritis Ovarian cancer Arthritis Son Thyroid disease Other Hypothyroid Social History Social History Household Members: Spouse Household Members Other:: 1 Housing: Apartment Do you presently have visiting nurse or other home services: Yes ( [employer] 3 hrs only Mondays ) Alcohol intake: current Alcohol intake frequency: does not drink Patient Tobacco Use Status: Current everyday Tobacco user Tobacco use type: Cigarette Cigarette Packs Per Day: 1 Cigarettes Per Day: 10 Years Smoked: 30 Smoked in Last 30 Days: Yes e-Cigarette/Vaping Use: Never Used Patient Interested in Nicotine Replacement: No ( I don't like the patch ) Second Hand Smoke Exposure: No Use of substances other than those prescribed or required for medical reasons: Refusing to respond Substance Use Type: Heroin Currently Displaying Signs/Symptoms of Drug Intoxication Withdrawal: No Denominational Healthcare Practices: [employer]oc[employer] Advance Directives: Yes Advance Directives on File: Yes Advance Directives Date on File: 08/18/23 Do you have a plan to hurt others: No Plan Recently lost weight without trying: Unsure Eating poorly because of decreased appetite: No Nutrition Risks: Difficulty chewing, On aspiration precautions and Poor intake 0-25% >4 days Patient : No : No service: No Current occupational status: unemployed Meds Allergies Allergy/AdvReac Type Severity Reaction Status Date / Time Penicillins [PENICILLINS] Allergy Unknown RED ITCHY Verified 10/06/23 15:17 RASH SEAFOOD Allergy Unknown FEVER Uncoded 10/06/23 15:17 SWELLING Active Medications: Current Medications Albuterol Sulfate (Albuterol Sulfate (0.083%) 2.5 Mg/3 Ml Vial.Neb) 2.5 mg INHALE Q4H PRN PRN Reason: Shortness of Breath/Wheezing Albuterol/Ipratropium (Albuterol/Iprat 2.5/0.5mg 3 Ml Ampul.Neb) 3 ml INHALE RQ4H WHILE AWAKE [facility] Enoxaparin Sodium (Enoxaparin Sodium 40 Mg/0.4 Ml Syringe) 40 mg SUBCUT Q24H [facility] Azithromycin 500 mg/ Sodium (Chloride) 250 mls @ 125 mls/hr IV Q24H [facility] Methylprednisolone Sodium Succinate (Methylprednisolone Sod Succ 125 Mg/2 Ml Vial) 80 mg IVPUSH Q12H [facility] Home Medications ?Medication ?Instructions ?Recorded ?Confirmed ?Last Taken ?Type rosuvastatin 20 mg tablet 20 mg PO BEDTIME 03/11/20 09/03/23 08/15/23 History perphenazine 4 mg tablet 4 mg PO BEDTIME 09/24/21 09/03/23 08/15/23 History levothyroxine 200 mcg tablet 200 mcg PO DAILY@0600 10/01/22 09/03/23 08/15/23 History sertraline 25 mg tablet 25 mg PO DAILY@1200 10/01/22 09/03/23 08/15/23 History umeclidinium 62.5 mcg/actuation 1 inh inhalation DAILY 10/01/22 09/03/23 08/15/23 History blister powder for inhalation (Incruse Ellipta) hydroxyzine pamoate 50 mg capsule 50 mg PO BID PRN Itching or anxiety 04/20/23 09/03/23 Unknown History ipratropium 0.5 mg-albuterol 3 mg 3 ml inhalation QID PRN wheezing 04/20/23 09/03/23 Unknown History (2.5 mg base)/3 mL nebulization soln sertraline 100 mg tablet 100 mg PO DAILY@1200 04/20/23 09/03/23 08/15/23 History methadone 10 mg/mL oral concentrate 85 mg PO DAILY 04/21/23 08/16/23 09/02/23 09:00 History docusate sodium 100 mg capsule 100 mg PO BID constipation 07/01/23 09/03/23 08/15/23 History metformin 500 mg tablet,extended 500 mg PO DAILY@1800 07/01/23 09/03/23 08/15/23 History release 24 hr sennosides 8.6 mg tablet (senna) 17.2 mg PO BEDTIME PRN constipation 07/01/23 09/03/23 Unknown History famotidine 40 mg tablet (Pepcid) 40 mg PO BEDTIME PRN Heartburn 08/16/23 09/03/23 Unknown History furosemide 20 mg tablet 20 mg PO DAILY 08/16/23 09/03/23 08/15/23 History levothyroxine 25 mcg tablet 12.5 mcg PO DAILY@0600 08/16/23 09/03/23 08/15/23 History pantoprazole 40 mg tablet,delayed 40 mg PO DAILY@1200 08/16/23 09/03/23 08/15/23 History release amlodipine 10 mg tablet 10 mg PO DAILY 09/03/23 09/03/23 Unknown History albuterol sulfate 90 mcg/actuation 2 puff inhalation Q6H PRN wheezing 10/06/23 Unknown History aerosol inhaler (Ventolin HFA) fluticasone 500 mcg-salmeterol 50 1 ea inhalation BID 10/06/23 Unknown History mcg/dose blistr powdr for inhalation (Advair Diskus) olmesartan 40 mg tablet 40 mg PO DAILY 10/06/23 Unknown History omega-3 acid ethyl esters 1 gram 1 cap PO BID 10/06/23 Unknown History capsule simethicone 180 mg capsule 180 mg PO BID 10/06/23 Unknown History Physical Exam 2 Vital Signs: Vital Signs: Last Vital Signs Temp 98.8 F 10/06/23 18:00 Pulse 96 10/06/23 19:59 Resp 20 10/06/23 19:59 BP 88/46 L 10/06/23 19:59 Pulse Ox 87 L 10/06/23 19:59 O2 Del Method BiPAP 10/06/23 19:59 O2 Flow Rate 10/06/23 15:15 Oxygen Flow Rate 10/06/23 15:14 BMI result Body Mass Index 27.1 ?General:? Alert oriented x3 no severe distress on BIPAP ?HEENT:? Head is normocephalic, atraumatic, pupils equal round reactive to light accommodation bilaterally.? Extraocular movements appear intact.? Buccal mucosa is dry, Neck is supple ?Cardiac:? Clear S1-S2, no murmurs rubs or gallops. ?Pulmonary:? Expiratory wheezing throughout. On BIPAP ?Abdomen:? ?Abdomen soft, non-tender, non-distended. Normal bowel sounds. No pulsatile mass. No hepatosplenomegaly. ?Musculoskeletal:?Left foot pain to touch, The strength is 5/5 bilaterally and throughout all 4 extremities.? Gait not assessed at this point. ?Neurologic:? cranial nerves 2-12 are grossly intact.? No focal deficits noted.Motor strength as above.?? ?Skin:? Scattered bruising throughout extremities, skin is dry Vascular:? 2+ pulses upper and lower extremities distally.? Results Labs 10/07/23 04:24 10/07/23 04:24 Labs: Laboratory Results - last 24 hr 10/06/23 10/06/23 10/06/23 15:38 15:42 16:25 MCV 90.5 MCH 28.0 MCHC 31.0 RDW 17.4 H Plt Count 181 MPV 11.0 Immature Gran % (Auto) 0.4 Neut % (Auto) 67.2 Lymph % (Auto) 23.1 Phelps % (Auto) 6.8 Eos % (Auto) 2.0 Baso % (Auto) 0.5 Lymph # (Auto) 1.8 Phelps # (Auto) 0.5 Eos # (Auto) 0.2 Baso # (Auto) 0.0 Abs Immat Gran (auto) 0.03 Absolute Neuts (auto) 5.3 Absolute Nucleated RBC 0.000 Nucleated RBC % (auto) 0.0 O2 Saturation 95.0 ABG pH at Pt Temp 7.27 L ABG pCO2 at Pt Temp 86 H* ABG pO2 at Pt Temp 77 L ABG HCO3 40 H ABG Base Excess (Actual) 9.0 VBG pH VBG pCO2 VBG pO2 VBG HCO3 VBG O2 Saturation VBG Base Excess Anion Gap 13 Estim Creat Clear Calc 83.2 Estimated GFR > 60 Random Glucose 116 H Lactic Acid 0.7 Calcium 9.6 Troponin I High Sens 2.7 Influenza Type A (PCR) NEGATIVE Influenza Type B (PCR) NEGATIVE RSV RNA Qual (PCR) NEGATIVE SARS-CoV-2 RNA (RT-PCR) NEGATIVE 10/06/23 10/06/23 18:23 20:08 MCV MCH MCHC RDW Plt Count MPV Immature Gran % (Auto) Neut % (Auto) Lymph % (Auto) Phelps % (Auto) Eos % (Auto) Baso % (Auto) Lymph # (Auto) Phelps # (Auto) Eos # (Auto) Baso # (Auto) Abs Immat Gran (auto) Absolute Neuts (auto) Absolute Nucleated RBC Nucleated RBC % (auto) O2 Saturation 93.0 ABG pH at Pt Temp 7.23 L ABG pCO2 at Pt Temp 91 H* ABG pO2 at Pt Temp 73 L ABG HCO3 39 H ABG Base Excess (Actual) 7.2 VBG pH 7.28 L VBG pCO2 84 VBG pO2 66 VBG HCO3 40 H VBG O2 Saturation 91.0 VBG Base Excess 9.7 Anion Gap Estim Creat Clear Calc Estimated GFR Random Glucose Lactic Acid Calcium Troponin I High Sens Influenza Type A (PCR) Influenza Type B (PCR) RSV RNA Qual (PCR) SARS-CoV-2 RNA (RT-PCR) Imaging Radiologist's Impressions: Impressions Chest X-Ray 10/06/23 16:40 IMPRESSION: Low lung volumes. Overall atelectasis is improved compared with 09/02/2023. Prominent heart, mediastinum and central vasculature may be artifactual. Recommend short-term follow-up with PA and lateral views Assessment and Plan (1) Acute respiratory failure with hypoxia and hypercapnia: Status: Resolved (2) COPD exacerbation: Status: Resolved (3) COPD (chronic obstructive pulmonary disease): Status: Inactive (4) Pulmonary edema: Status: Acute (5) Hypotension: Status: Acute Plan 57-year-old female with a past medical history of COPD on home 02 at 4-6L,? hepatitis C, cirrhosis,? hypertension, hypothyroidism, hyperlipidemia, Substance abuse (on methadone), and tobacco use ,admitted for acute hypercapnic and hypoxic respiratory failure secondary to COPD ? exacerbation requiring BiPAP support? Plan: Neuro:? No acute issues. Cardiac:?? Pulmonary edema:? chest x-ray with evidence of some pulmonary congestion.? Will give diamox as her serum bicarb is elevated.? Monitor for diuresing.? Hypotesion, she is mentating, alert x 3, likely from diuresing, no evidence of sepsi despite lactic being slightly elevated, white count is flat Pulmonary:?? Acute hypoxic and hypercapnic respiratory failure secondary to? COPD exacerbation. ? received systemic glucocorticoids in ED. Will cont? systemic? glucocorticoids, nebulized bronchodilators, and add azithromacin for copd exacerbation Renal:? No acute issues.?? Endo:? No acute issues.?? GI:?? No acute issues ID:? ?No acute issues Heme/Onc:? No acute issues. Msk: Left Toe Fx, Xray show redemonstration of seconf left toe fax, cont non weight bearing and hard sole shoes Psych: ? patient has a history of substance abuse,? Will add utox Miscellaneous:? No acute issues. Prophylaxis:? lovenox? Diet:? NPO while on BIPAP Critical care time spent:? 60 minutes
[2023-10-06 20:49] LABS: ABG Refer to POC result
[2023-10-06] MEDS: Enoxaparin Sodium 40 MG/0.4 ML SYRINGE SUBCUT (21:26)
[2023-10-06] MEDS: acetaZOLAMIDE sodium 500 MG VIAL 250 MG IVPUSH (21:26)
[2023-10-06] MEDS: Albumin Human 25 % 100 ML IV ×2 (21:31→21:49)
--- NOTE | 2023-10-06 21:34 | PC.NURSE ---
Addendum entered by Lisa Love RN 10/07/23 06:37: Patient remains afebrile, normal WBC. U/A sent for lactic. Pt remains A&Ox4, more wakeful. VBGs trended and improving. Pt requesting to come off Bipap. SENIOR PROJECT ARCHITECT verbal okay to take pt off bipap and place on baseline 4L nc; okay for nursing bedside swallow and sips of water if passed which patient did and has been tolerating infrequent small sips without coughing or other issue. Pt initially maintaining goal of 88-90% on nc though began to desat to low/mid 80%. Pt transitioned to oxymask for observed mouth breathing while resting in bed intermittently napping and watching TV, though still required increase in o2 to maintain goal. Patient consistently denies sob. Breathing is even and unlabored without distress. Respiratory requested to bedside and treatment given for wheezing with +effect. Discussed going back on bipap to maintain o2 sats with patient though patient refused for display card writer and SENIOR PROJECT ARCHITECT present at bedside. Pt continues on oxymask, resting in bed without distress. Po care provided. Please see admission and shift assessments, vitals, and MAR for full details. Handoff report given to coming RN. Addendum entered by Lisa Love RN 10/07/23 02:28: Repeat lactic back critical 3.0. SENIOR PROJECT ARCHITECT immediately notified. Mentation maintained. Orders for more albumin and levaquin as pt has allergy to pcn. Albumin initiated. Levaquin only stocked in ED; nursing body shop supervisor obtaining. Addendum entered by Lisa Love RN 10/07/23 00:49: Two additional peripheral #22's placed after multiple RN attempts. Patient BP briefly improved after albumin though has since been systolic in 80's. Patient is still arousable to voice and mentating per display card writer's initial assessment. SENIOR PROJECT ARCHITECT aware with MAP goal >50. Repeat labs ordered with lactic back at 2.5. SENIOR PROJECT ARCHITECT notified, no new orders at this time; verbal plan is to reassess lactic for further plan as WBC is normal at this time. Original Note: Patient arrived to ICU 20:00 hour. English speaking business management associate used. On bipap on arrival. Breathing even and unlabored without distress. Pt reporting on admission assessment she fell at home last Tuesday and broke her left foot, though denies having been medically assessed since incident. Tender to palpation. +dp and pt pulses. SENIOR PROJECT ARCHITECT notified, XR obtained. BPs soft 21:00 hour, systolic in 70's Pt drowsy though arouses to voice. MANNY Khan notified, albumin initatied via single right forearm #20. Tanner placed. Attempting to obtain additional access via ultrasound due to difficult stick.
[2023-10-06] MEDS: Azithromycin 500 MG in 0.9 % Sodium Chloride 250 ML 125 MG IV (22:09)
[2023-10-06 22:24] LABS: Amphetamine Screen Urine Not Detected (Not Detect); Barbiturates, Urine Not Detected (Not Detect); Benzodiazepines Screen Urine Not Detected (Not Detect); Buprenorphine Scr Not Detected (Not Detect); Cannabinoid Screen Urine Not Detected (Not Detect); Cocaine Screen Urine Not Detected (Not Detect); Fentanyl, urine Not Detected (Not Detect); Methadone Screen, Urine Positive (Not Detect); Opiate Screen Urine Not Detected (Not Detect); Oxycodone Screen Urine Not Detected (Not Detect); Phencyclidine Screen Urine Not Detected (Not Detect)
[2023-10-06 23:18] LABS: VBG Base Excess 6.3 mmol/L; VBG HCO3 35 mmol/L (22-26); VBG pCO2 67 mmHg; VBG pH 7.32 (7.32-7.43); VBG pO2 67 mmHg
[2023-10-06 23:20] LABS: Basophils Percent Auto 0.4 % (0-2); Hematocrit 43.7 % (37.0-47.0); Hemoglobin 13.3 g/dl (12.0-16.0); Imm Gran Abs Auto 0.02 X10*3/uL (0.00-0.03); Imm Gran Pct Auto 0.4 % (0.0-0.4); Lymphocytes Absolute Auto 0.4 X10*3/uL (1.2-4.9); Lymphocytes Percent Auto 7.7 % (20-40); MANUAL DIFF FLAG SCAN; Mean Corpuscular HGB Conc 30.4 g/dl (31.0-35.0); Mean Corpuscular Hemoglobin 27.9 pg (27.0-33.0); Mean Corpuscular Volume 91.6 fL (80.0-98.0); Mean Platelet Volume 10.8 fL (9.4-12.3); Monocytes Absolute Auto 0.1 X10*3/uL (0.1-1.2); Monocytes Percent Auto 1.1 % (2-11); Neutrophils Absolute Auto 5.2 x10*3/uL (2.0-8.3); Neutrophils Percent Auto 90.4 % (45-73); Platelet Count 157 X10*3/uL (160-400); Red Blood Count 4.77 X10*6/uL (4.20-5.50); Red Cell Distribution Width 17.4 % (11.0-16.0); SCAN SMEAR FLAG 1; White Blood Count 5.7 X10*3/uL (4.8-10.8)
[2023-10-06 23:34] LABS: Venous Blood Gas Refer to POC result
[2023-10-06 23:36] LABS: Anion Gap 14 (12-20); Blood Urea Nitrogen 18 mg/dL (9-16); Calcium 8.9 mg/dL (8.4-10.2); Carbon Dioxide 32 mmol/L (22-29); Chloride 97 mmol/L (96-108); Creatinine Clr Calc Pharmacy 61.4; Estimated Glomerular Filt Rate 55; Glucose Random 190 mg/dL (60-115); Lactic Acid 2.5 mmol/L (0.5-2.0); Magnesium 2.8 mg/dL (1.6-2.6); Sodium 139 mmol/L (135-145)
[2023-10-06 23:39] LABS: SLIDE REVIEW VERIFIED
[2023-10-07] VITALS (37 sets, daily range): BP systolic 83–132; BP diastolic 39–77; PULSE 83–100; RESP 12–30; TEMP 36.4–37.4; O2SAT 85–95
[2023-10-07 01:17] LABS: Reflex Lactate? Lactic Acid Added
[2023-10-07] MEDS: Albumin Human 25 % 100 ML IV ×2 (02:24→03:17)
[2023-10-07 02:31] LABS: Appearance Urine Clear; Color Urine Dark Yellow; Glucose Urine UA Negative (Negative); Leukocyte Esterase Urine Negative (Negative); Nitrite Urine Negative (Negative); Urine Blood Negative (Negative); Urine Ketones Negative (Negative); Urine Protein Negative (Neg-Trace)
[2023-10-07] MEDS: levoFLOXacin/D5W 750 MG/150 ML PIGGYBACK 100 MG IV (02:52)
[2023-10-07 03:42] LABS: Reflex Lactate? 2 Y
[2023-10-07 04:32] LABS: VBG Base Excess 6.5 mmol/L; VBG HCO3 33 mmol/L (22-26); VBG pCO2 58 mmHg; VBG pH 7.36 (7.32-7.43); VBG pO2 37 mmHg
[2023-10-07 04:41] LABS: Venous Blood Gas Refer to POC result
[2023-10-07 04:44] LABS: MANUAL DIFF FLAG NO
[2023-10-07 04:54] LABS: Basophils Percent Auto 0.4 % (0-2); Eosinophils Percent Auto 0.2 % (0-4); Hematocrit 42.7 % (37.0-47.0); Hemoglobin 13.3 g/dl (12.0-16.0); Imm Gran Abs Auto 0.02 X10*3/uL (0.00-0.03); Imm Gran Pct Auto 0.4 % (0.0-0.4); Lymphocytes Absolute Auto 0.9 X10*3/uL (1.2-4.9); Lymphocytes Percent Auto 16.9 % (20-40); Mean Corpuscular HGB Conc 31.1 g/dl (31.0-35.0); Mean Corpuscular Hemoglobin 28.2 pg (27.0-33.0); Mean Corpuscular Volume 90.5 fL (80.0-98.0); Mean Platelet Volume 10.9 fL (9.4-12.3); Monocytes Absolute Auto 0.2 X10*3/uL (0.1-1.2); Monocytes Percent Auto 3.5 % (2-11); Neutrophils Absolute Auto 4.1 x10*3/uL (2.0-8.3); Neutrophils Percent Auto 78.6 % (45-73); Platelet Count 151 X10*3/uL (160-400); Red Blood Count 4.72 X10*6/uL (4.20-5.50); Red Cell Distribution Width 17.3 % (11.0-16.0); White Blood Count 5.2 X10*3/uL (4.8-10.8)
[2023-10-07 04:59] LABS: ~Lactic Acid-LAB USE ONLY 2.7 mmol/L (0.5-2.0)
[2023-10-07 05:06] LABS: Anion Gap 17 (12-20); Blood Urea Nitrogen 19 mg/dL (9-16); Calcium 9.2 mg/dL (8.4-10.2); Carbon Dioxide 29 mmol/L (22-29); Chloride 98 mmol/L (96-108); Creatinine Clr Calc Pharmacy 75.3; Estimated Glomerular Filt Rate > 60; Glucose Random 133 mg/dL (60-115); Magnesium 2.9 mg/dL (1.6-2.6); Phosphorus 4.6 mg/dL (2.7-4.5); Potassium 4.5 mmol/L (3.3-5.1); Sodium 139 mmol/L (135-145)
[2023-10-07] MEDS: Albuterol Sulfate (0.083%) 2.5 MG/3 ML VIAL.NEB INHALE (05:25)
[2023-10-07] MEDS: Albuterol/Iprat 2.5/0.5MG 3 ML AMPUL.NEB INHALE ×4 (07:32→20:35)
[2023-10-07] MEDS: methylPREDNISolone Sod Succ 125 MG/2 ML VIAL 80 MG IVPUSH ×2 (07:51→20:10)
--- NOTE | 2023-10-07 08:06 | PM.CCPN ---
Subjective Subjective Date of Service: 10/07/23 Interval History: admitted for hypercarbic respiratory failure, on BiPAP, w/ interval improvement Critical Care Time (minutes): 60 Physical Exam Vital Signs: Vital Signs: Last Vital Signs Temp 99.1 F 10/07/23 05:00 Pulse 92 10/07/23 07:32 Resp 19 10/07/23 07:32 BP 120/68 10/07/23 07:00 Pulse Ox 87 L 10/07/23 07:00 O2 Del Method Oxymask 10/07/23 07:00 O2 Flow Rate 7 10/07/23 07:00 FiO2 50 10/07/23 03:00 Oxygen Flow Rate 11 10/06/23 15:14 BMI result Body Mass Index 27.1 Const: General: cooperative, healthy appearing, comfortable, no acute distress, well developed, alert, awake and Physically active Orientation/consciousness: patient oriented x3 HEENT: Head: Yes normal to inspection, Yes normocephalic and Yes atraumatic Eyes: General: appearance normal, both eyes and all related structures Neck: Neck: Yes normal visual inspection, Yes full ROM, Yes no meningeal signs, Yes trachea midline and Yes supple Chest: Chest palpation & inspection: normal inspection of the chest Resp: Other: no appreciable rales, rhonchi, wheezing Effort & Inspection: normal respiratory effort Cardio: Rate: regular rate Rhythm: regular rhythm GI: Inspection: Yes normal to inspection, No Abdominal wall edema and No distended Palpation (GI): Soft to palpation, not firm, nontender, no guarding and not rigid Skin: General skin exam: no rashes or lesions noted Neuro: General: patient oriented x3, tone normal, moves all extremities, no meningeal signs and no focal motor deficits Extrem: General: Yes normal to inspection, Yes full ROM, Yes capillary refill normal and Yes no clubbing, cyanosis or edema Psych: Appearance: grossly normal Objective Data Labs 10/07/23 04:24 10/07/23 04:24 Labs: Laboratory Results - last 24 hr 10/06/23 10/06/23 10/06/23 15:38 15:42 16:25 WBC 8.0 RBC 5.60 H Hgb 15.7 Hct 50.7 H MCV 90.5 MCH 28.0 MCHC 31.0 RDW 17.4 H Plt Count 181 MPV 11.0 Immature Gran % (Auto) 0.4 Neut % (Auto) 67.2 Lymph % (Auto) 23.1 Pickett % (Auto) 6.8 Eos % (Auto) 2.0 Baso % (Auto) 0.5 Lymph # (Auto) 1.8 Pickett # (Auto) 0.5 Eos # (Auto) 0.2 Baso # (Auto) 0.0 Abs Immat Gran (auto) 0.03 Absolute Neuts (auto) 5.3 Absolute Nucleated RBC 0.000 Nucleated RBC % (auto) 0.0 Smear Tech's Comments O2 Saturation 95.0 ABG pH at Pt Temp 7.27 L ABG pCO2 at Pt Temp 86 H* ABG pO2 at Pt Temp 77 L ABG HCO3 40 H ABG Base Excess (Actual) 9.0 VBG pH VBG pCO2 VBG pO2 VBG HCO3 VBG O2 Saturation VBG Base Excess Sodium 138 Potassium 4.8 Chloride 99 Carbon Dioxide 31 H Anion Gap 13 BUN 13 Creatinine 0.76 Estim Creat Clear Calc 83.2 Estimated GFR > 60 Random Glucose 116 H Lactic Acid 0.7 Lactic Acid F/U @ 2Hr Lactic Acid F/U @ 4Hr Calcium 9.6 Phosphorus Magnesium Troponin I High Sens 2.7 Urine Color Urine Appearance Urine pH Ur Specific [place] Urine Protein Urine Glucose (UA) Urine Ketones Urine Blood Urine Nitrite Ur Leukocyte Esterase Urine Opiates Screen Ur Buprenorphine Scrn Ur Oxycodone Screen Urine Methadone Screen Urine Fentanyl Screen Ur Barbiturates Screen Ur Phencyclidine Scrn Ur Amphetamines Screen U Benzodiazepines Scrn Urine Cocaine Screen U Marijuana (THC) Screen Influenza Type A (PCR) NEGATIVE Influenza Type B (PCR) NEGATIVE RSV RNA Qual (PCR) NEGATIVE SARS-CoV-2 RNA (RT-PCR) NEGATIVE 10/06/23 10/06/23 10/06/23 18:23 20:08 21:45 WBC RBC Hgb Hct MCV MCH MCHC RDW Plt Count MPV Immature Gran % (Auto) Neut % (Auto) Lymph % (Auto) Pickett % (Auto) Eos % (Auto) Baso % (Auto) Lymph # (Auto) [place] # (Auto) Eos # (Auto) Baso # (Auto) Abs Immat Gran (auto) Absolute Neuts (auto) Absolute Nucleated RBC Nucleated RBC % (auto) Smear Tech's Comments O2 Saturation 93.0 ABG pH at Pt Temp 7.23 L ABG pCO2 at Pt Temp 91 H* ABG pO2 at Pt Temp 73 L ABG HCO3 39 H ABG Base Excess (Actual) 7.2 VBG pH 7.28 L VBG pCO2 84 VBG pO2 66 VBG HCO3 40 H VBG O2 Saturation 91.0 VBG Base Excess 9.7 Sodium Potassium Chloride Carbon Dioxide Anion Gap BUN Creatinine Estim Creat Clear Calc Estimated GFR Random Glucose Lactic Acid Lactic Acid F/U @ 2Hr Lactic Acid F/U @ 4Hr Calcium Phosphorus Magnesium Troponin I High Sens Urine Color Urine Appearance Urine pH Ur Specific [place] Urine Protein Urine Glucose (UA) Urine Ketones Urine Blood Urine Nitrite Ur Leukocyte Esterase Urine Opiates Screen Not Detected Ur Buprenorphine Scrn Not Detected Ur Oxycodone Screen Not Detected Urine Methadone Screen Positive H Urine Fentanyl Screen Not Detected Ur Barbiturates Screen Not Detected Ur Phencyclidine Scrn Not Detected Ur Amphetamines Screen Not Detected U Benzodiazepines Scrn Not Detected Urine Cocaine Screen Not Detected U Marijuana (THC) Screen Not Detected Influenza Type A (PCR) Influenza Type B (PCR) RSV RNA Qual (PCR) SARS-CoV-2 RNA (RT-PCR) 10/06/23 10/06/23 10/07/23 23:08 23:11 01:35 WBC 5.7 RBC 4.77 Hgb 13.3 Hct 43.7 MCV 91.6 MCH 27.9 MCHC 30.4 L RDW 17.4 H Plt Count 157 L MPV 10.8 Immature Gran % (Auto) 0.4 Neut % (Auto) 90.4 H Lymph % (Auto) 7.7 L Pickett % (Auto) 1.1 L Eos % (Auto) 0.0 Baso % (Auto) 0.4 Lymph # (Auto) 0.4 L [place]ett # (Auto) 0.1 Eos # (Auto) 0.0 Baso # (Auto) 0.0 Abs Immat Gran (auto) 0.02 Absolute Neuts (auto) 5.2 Absolute Nucleated RBC 0.000 Nucleated RBC % (auto) 0.0 Smear Tech's Comments VERIFIED O2 Saturation ABG pH at Pt Temp ABG pCO2 at Pt Temp ABG pO2 at Pt Temp ABG HCO3 ABG Base Excess (Actual) VBG pH 7.32 VBG pCO2 67 VBG pO2 67 VBG HCO3 35 H VBG O2 Saturation 94.0 VBG Base Excess 6.3 Sodium 139 Potassium 4.0 Chloride 97 Carbon Dioxide 32 H Anion Gap 14 BUN 18 H Creatinine 1.03 Estim Creat Clear Calc 61.4 Estimated GFR 55 Random Glucose 190 H Lactic Acid 2.5 H* Lactic Acid F/U @ 2Hr 3.0 H* Lactic Acid F/U @ 4Hr Calcium 8.9 D Phosphorus 6.0 H Magnesium 2.8 H Troponin I High Sens Urine Color Urine Appearance Urine pH Ur Specific [place] Urine Protein Urine Glucose (UA) Urine Ketones Urine Blood Urine Nitrite Ur Leukocyte Esterase Urine Opiates Screen Ur Buprenorphine Scrn Ur Oxycodone Screen Urine Methadone Screen Urine Fentanyl Screen Ur Barbiturates Screen Ur Phencyclidine Scrn Ur Amphetamines Screen U Benzodiazepines Scrn Urine Cocaine Screen U Marijuana (THC) Screen Influenza Type A (PCR) Influenza Type B (PCR) RSV RNA Qual (PCR) SARS-CoV-2 RNA (RT-PCR) 10/07/23 10/07/23 10/07/23 02:15 04:22 04:24 WBC 5.2 RBC 4.72 Hgb 13.3 Hct 42.7 MCV 90.5 MCH 28.2 MCHC 31.1 RDW 17.3 H Plt Count 151 L MPV 10.9 Immature Gran % (Auto) 0.4 Neut % (Auto) 78.6 H Lymph % (Auto) 16.9 L Pickett % (Auto) 3.5 Eos % (Auto) 0.2 Baso % (Auto) 0.4 Lymph # (Auto) 0.9 L [place]ett # (Auto) 0.2 Eos # (Auto) 0.0 Baso # (Auto) 0.0 Abs Immat Gran (auto) 0.02 Absolute Neuts (auto) 4.1 Absolute Nucleated RBC 0.000 Nucleated RBC % (auto) 0.0 Smear Tech's Comments O2 Saturation ABG pH at Pt Temp ABG pCO2 at Pt Temp ABG pO2 at Pt Temp ABG HCO3 ABG Base Excess (Actual) VBG pH 7.36 VBG pCO2 58 VBG pO2 37 VBG HCO3 33 H VBG O2 Saturation 68.0 VBG Base Excess 6.5 Sodium 139 Potassium 4.5 Chloride 98 Carbon Dioxide 29 Anion Gap 17 BUN 19 H Creatinine 0.84 Estim Creat Clear Calc 75.3 Estimated GFR > 60 Random Glucose 133 H Lactic Acid Lactic Acid F/U @ 2Hr Lactic Acid F/U @ 4Hr 2.7 H* Calcium 9.2 Phosphorus 4.6 H Magnesium 2.9 H Troponin I High Sens Urine Color Dark Yellow Urine Appearance Clear Urine pH 5.0 Ur Specific [place] 1.020 Urine Protein Negative Urine Glucose (UA) Negative Urine Ketones Negative Urine Blood Negative Urine Nitrite Negative Ur Leukocyte Esterase Negative Urine Opiates Screen Ur Buprenorphine Scrn Ur Oxycodone Screen Urine Methadone Screen Urine Fentanyl Screen Ur Barbiturates Screen Ur Phencyclidine Scrn Ur Amphetamines Screen U Benzodiazepines Scrn Urine Cocaine Screen U Marijuana (THC) Screen Influenza Type A (PCR) Influenza Type B (PCR) RSV RNA Qual (PCR) SARS-CoV-2 RNA (RT-PCR) Progress Note: A&P Assessment and plan (1) Acute and chronic respiratory failure: Status: Acute (2) COPD (chronic obstructive pulmonary disease): Status: Acute (3) Hypertension: Status: Acute (4) Polysubstance abuse: Status: Acute Plan Patient is a 57 Y F with hypertension, hyperlipidemia, hypothyroidism, substance misuse on methadone, hepatitis C c/v cirrhosis, and COPD, c/b chronic mixed respiratory failure, on 4-6L NC baseline, presenting on 10/06 w/ yuspnea, found to be in acute on chronic mixed respiratory failure, placed on BiPAP N: encephalopathy, likely toxic-metabolic, resolved CV: no acute issues R: acute on chronic mixed respiratory failure d/t COPD exacerbation, likely multi-factorial, s/p BiPAP, magnesium improved; duonebs, steroids; to monitor GI: regular diet : no acute issues H: thrombocytopenia; to monitor; chemical DVT prophylaxis when platelets greater than 100 ID: empiric levofloxacin in setting of COPD exacerbation MSK: L 2nd distal phalange fracture; RICE as needed P: polysubstance misuse Quality Stroke Does the patient have a stroke diagnosis?: No VTE Prior VTE?: No VTE Risk Level:: Medical - moderate - high VTE Device Contraindication: N/A - Device Ordered VTE Drug Contraindication: N/A - Med Ordered
--- NOTE | 2023-10-07 08:30 | PHA.MEDREC ---
Pharmacy Consult ? Medication Reconciliation Pharmacy has completed the medication reconciliation. Used channeling machine operator services. Patient was on BiPAP machine and stated she could not think of her medications right now. Patient was last here about 4 weeks ago. Asked if anything has changed since then patient said that nothing should have changed since last discharge, used discharged packet as well as medical records. Looks like amlodipine was decreased last visit as well.
--- NOTE | 2023-10-07 09:25 | HE.PHANOTE ---
METHADONE Pharmacy received methadone verification sheet. Patient is noted to be dosed with [facility] in [place] [phone], patient dosed with 85 mg, last dose on 10/05/23
[2023-10-07] MEDS: Acetaminophen 325 MG TABLET 650 MG PO ×2 (09:32→21:42)
[2023-10-07] MEDS: Levothyroxine Sodium 200 MCG TABLET PO (09:32)
[2023-10-07] MEDS: Furosemide 20 MG TABLET PO (09:32)
[2023-10-07] MEDS: methADONE HCl 20 MG/2 ML ORAL.CONC 85 MG PO (09:32)
--- NOTE | 2023-10-07 10:17 | MHC.CM.PN ---
Pt in ICU making clinical gains for respiratory distress: pt on cell phone when CM arrived conversing without SOB noted: Pt states she lives with a partner and has VNA services for RN and methadone through [facility]. [facility] supplies her Home O2 and she uses a walker or cane on occasion. Pt utilizes family, bus or BLS services for transportation. HCP on file and verified. D/C plan is for a return to home with existing services via BLS transport. PCP Dr. Copeland HCP on file and verified
[2023-10-07 12:42] LABS: VBG Base Excess 6.2 mmol/L; VBG HCO3 32 mmol/L (22-26); VBG pCO2 51 mmHg; VBG pO2 87 mmHg
[2023-10-07 13:27] LABS: Venous Blood Gas Refer to POC result
[2023-10-07] MEDS: Enoxaparin Sodium 40 MG/0.4 ML SYRINGE SUBCUT (20:10)
[2023-10-07] MEDS: 0.9 % Sodium Chloride Flush 3 ML SYRINGE IVFLUSH (20:10)
[2023-10-08] VITALS (16 sets, daily range): BP systolic 127–151; BP diastolic 79–89; PULSE 70–91; RESP 16–22; TEMP 36.2–36.8; O2SAT 89–96; BMI 28.6
[2023-10-08 05:06] LABS: VBG Base Excess 7.7 mmol/L; VBG HCO3 34 mmol/L (22-26); VBG pCO2 53 mmHg; VBG pH 7.41 (7.32-7.43); VBG pO2 50 mmHg
[2023-10-08] MEDS: Levothyroxine Sodium 200 MCG TABLET PO (05:30)
[2023-10-08 06:03] LABS: Basophils Percent Auto 0.1 % (0-2); Eosinophils Percent Auto 0.3 % (0-4); Hematocrit 45.3 % (37.0-47.0); Hemoglobin 14.1 g/dl (12.0-16.0); Imm Gran Abs Auto 0.05 X10*3/uL (0.00-0.03); Imm Gran Pct Auto 0.6 % (0.0-0.4); Lymphocytes Absolute Auto 1.1 X10*3/uL (1.2-4.9); Lymphocytes Percent Auto 14.4 % (20-40); MANUAL DIFF FLAG SCAN; Mean Corpuscular HGB Conc 31.1 g/dl (31.0-35.0); Mean Corpuscular Hemoglobin 28.3 pg (27.0-33.0); Mean Corpuscular Volume 90.8 fL (80.0-98.0); Mean Platelet Volume 11.8 fL (9.4-12.3); Monocytes Absolute Auto 0.3 X10*3/uL (0.1-1.2); Monocytes Percent Auto 3.3 % (2-11); Neutrophils Absolute Auto 6.3 x10*3/uL (2.0-8.3); Neutrophils Percent Auto 81.3 % (45-73); PLT CLUMP 1; Red Blood Count 4.99 X10*6/uL (4.20-5.50); Red Cell Distribution Width 17.2 % (11.0-16.0); SCAN SMEAR FLAG 1
[2023-10-08 06:04] LABS: White Blood Count 7.8 X10*3/uL (4.8-10.8)
[2023-10-08 06:05] LABS: Platelet Count 162 X10*3/uL (160-400)
[2023-10-08 06:19] LABS: Venous Blood Gas Refer to POC result
[2023-10-08 06:26] LABS: Anion Gap 14 (12-20); Blood Urea Nitrogen 17 mg/dL (9-16); Calcium 10.2 mg/dL (8.4-10.2); Carbon Dioxide 30 mmol/L (22-29); Chloride 99 mmol/L (96-108); Creatinine Clr Calc Pharmacy 92.6; Estimated Glomerular Filt Rate > 60; Glucose Random 176 mg/dL (60-115); Magnesium 2.6 mg/dL (1.6-2.6); Phosphorus 2.1 mg/dL (2.7-4.5); Potassium 4.7 mmol/L (3.3-5.1); Sodium 138 mmol/L (135-145)
[2023-10-08 06:31] LABS: SLIDE REVIEW VERIFIED
[2023-10-08] MEDS: Albuterol/Iprat 2.5/0.5MG 3 ML AMPUL.NEB INHALE ×4 (08:05→19:47)
[2023-10-08] MEDS: methylPREDNISolone Sod Succ 125 MG/2 ML VIAL 80 MG IVPUSH ×2 (08:16→20:45)
[2023-10-08] MEDS: Sodium,Potassium Phosphates POWD.PACK 2 PACKET PO (08:17)
[2023-10-08] MEDS: methADONE HCl 20 MG/2 ML ORAL.CONC 85 MG PO (08:17)
[2023-10-08] MEDS: levoFLOXacin 500 MG TABLET PO (08:17)
[2023-10-08] MEDS: Furosemide 20 MG TABLET PO (08:17)
[2023-10-08] MEDS: 0.9 % Sodium Chloride Flush 3 ML SYRINGE IVFLUSH ×3 (08:18→20:45)
--- NOTE | 2023-10-08 11:31 | P.PNIM_ITS ---
Subjective Subjective Date of Service: 10/08/23 Interval History: seen and examined this AM slowly feeling better but still far from baseline Review of Systems Negative except HPI/interval history. Physical Exam 2 Vital Signs: Vital Signs: Last Vital Signs Temp 97.3 F 10/08/23 08:00 Pulse 84 10/08/23 11:15 Resp 18 10/08/23 11:15 BP 151/84 H 10/08/23 08:00 Pulse Ox 96 10/08/23 08:00 O2 Del Method Nasal Cannula 10/08/23 08:00 O2 Flow Rate 6 10/08/23 08:00 FiO2 40 10/08/23 03:00 Oxygen Flow Rate 11 10/06/23 15:14 BMI result Body Mass Index 28.6 Const: Other: General - no acute distress, appears comfortable Cardiovascular - regular rate and rhythm, S1-S2 Lungs - coase sounds throughout Abdomen - soft, nontender, no rebound or guarding Extremities - no edema bilaterally Neuro - awake and alert, no focal deficits Objective Data Active Medications Acetaminophen (Acetaminophen 325 Mg Tablet) 650 mg PO Q6H PRN PRN Reason: Pain, Moderate(Pain Scale 4-6) Last Admin: 10/07/23 21:42 Dose: 650 mg Documented By: CYNDI Albuterol Sulfate (Albuterol Sulfate (0.083%) 2.5 Mg/3 Ml Vial.Neb) 2.5 mg INHALE Q4H PRN PRN Reason: Shortness of Breath/Wheezing Last Admin: 10/07/23 05:25 Dose: 2.5 mg Documented By: JAKE Albuterol/Ipratropium (Albuterol/Iprat 2.5/0.5mg 3 Ml Ampul.Neb) 3 ml INHALE RQ4H WHILE AWAKE MAYRA Last Admin: 10/08/23 11:12 Dose: 3 ml Documented By: ANASTASIIA Enoxaparin Sodium (Enoxaparin Sodium 40 Mg/0.4 Ml Syringe) 40 mg SUBCUT Q24H MAYRA Last Admin: 10/07/23 20:10 Dose: 40 mg Documented By: CYNDI Famotidine (Famotidine 20 Mg Tablet) 20 mg PO BEDTIME PRN PRN Reason: Heartburn Furosemide (Furosemide 20 Mg Tablet) 20 mg PO DAILY MAYRA; Protocol Last Admin: 10/08/23 08:17 Dose: 20 mg Documented By: TANISHA Levofloxacin (Levofloxacin 500 Mg Tablet) 500 mg PO Q24H [facility] Last Admin: 10/08/23 08:17 Dose: 500 mg Documented By: TANISHA Levothyroxine Sodium (Levothyroxine Sodium 200 Mcg Tablet) 200 mcg PO DAILY@0600 [facility] Last Admin: 10/08/23 05:30 Dose: 200 mcg Documented By: DONAL Methadone HCl (Methadone Hcl 20 Mg/2 Ml Oral.Conc) 85 mg PO DAILY [facility] Last Admin: 10/08/23 08:17 Dose: 85 mg Documented By: TANISHA Methylprednisolone Sodium Succinate (Methylprednisolone Sod Succ 125 Mg/2 Ml Vial) 80 mg IVPUSH Q12H [facility] Last Admin: 10/08/23 08:16 Dose: 80 mg Documented By: TANISHA Sodium Chloride (0.9 % Sodium Chloride Flush 3 Ml Syringe) 3 ml IVFLUSH QSHIFT [facility] Last Admin: 10/08/23 08:18 Dose: 3 ml Documented By: TANISHA Labs 10/08/23 04:56 10/08/23 04:56 Labs: Laboratory Results - last 24 hr 10/07/23 10/08/23 10/08/23 12:33 04:56 04:57 MCV 90.8 MCH 28.3 MCHC 31.1 RDW 17.2 H Plt Count 162 MPV 11.8 Immature Gran % (Auto) 0.6 H Neut % (Auto) 81.3 H Lymph % (Auto) 14.4 L Bo[place] % (Auto) 3.3 Eos % (Auto) 0.3 Baso % (Auto) 0.1 Lymph # (Auto) 1.1 L [place] # (Auto) 0.3 Eos # (Auto) 0.0 Baso # (Auto) 0.0 Abs Immat Gran (auto) 0.05 H Absolute Neuts (auto) 6.3 Absolute Nucleated RBC 0.000 Nucleated RBC % (auto) 0.0 Smear Tech's Comments VERIFIED VBG pH 7.40 7.41 VBG pCO2 51 53 VBG pO2 87 50 VBG HCO3 32 H 34 H VBG O2 Saturation 98.0 84.0 VBG Base Excess 6.2 7.7 Anion Gap 14 Estim Creat Clear Calc 92.6 Estimated GFR > 60 Random Glucose 176 H Calcium 10.2 D Phosphorus 2.1 L Magnesium 2.6 Microbiology Microbiology Results: Microbiology 10/06/23 16:25 Blood Culture - Preliminary Blood - Venous No growth after 24 hours. 10/06/23 15:42 Blood Culture - Preliminary Blood - Venous No growth after 24 hours. Assessment and Plan (1) COPD (chronic obstructive pulmonary disease): Status: Acute Plan 57 yo F with HTN, HLD, hypothyroidism, chronic opiate dependence on methadone, hep c/cirrhosis and COPD on 4-6L at baseline who was admitted on 10/05 to the ICU 1. Acute on chronic hypoxic/hypercarbic resp failure due to COPD s/p NIPPV and ICU now on NC -- continue with goal 88-92 IV solu-medrol and updrafts + levaquin 2. DM hold metformin sliding scale + POC 3. HTN continue lasix/norvasc 4. chronic opiate dependence methadone 5. hypothyroidism synthroid 6. Mood continue bseline meds 7. thrombocytopenia resolved Full Code DVT pptx, Lovenox Quality Stroke Does the patient have a stroke diagnosis?: No VTE Prior VTE?: No VTE Risk Level:: Medical - moderate - high VTE Device Contraindication: N/A - Device Ordered VTE Drug Contraindication: N/A - Med Ordered
[2023-10-08 11:46] LABS: Glucose, Whole Blood 146 mg/dL (60-115)
[2023-10-08] MEDS: Sertraline HCL 100 MG TABLET PO (12:15)
[2023-10-08] MEDS: Omeprazole 20 MG CAPSULE.DR PO (12:15)
[2023-10-08] MEDS: Sertraline HCL 25 MG TABLET PO (12:15)
[2023-10-08 15:17] LABS: Glucose, Whole Blood 236 mg/dL (60-115)
[2023-10-08] MEDS: Insulin Lispro 100 UNIT/ML 3 ML VIAL SUBCUT ×2 (15:50→20:57)
[2023-10-08] MEDS: Perphenazine 4 MG TABLET PO (20:44)
[2023-10-08] MEDS: Atorvastatin Calcium 80 MG TABLET PO (20:44)
[2023-10-08] MEDS: Enoxaparin Sodium 40 MG/0.4 ML SYRINGE SUBCUT (20:45)
[2023-10-08 21:02] LABS: Glucose, Whole Blood 166 mg/dL (60-115)
[2023-10-09] VITALS: BP 137/72; PULSE 77; RESP 16; TEMP 36; O2SAT 92
[2023-10-09] MEDS: Acetaminophen 325 MG TABLET 650 MG PO ×2 (01:03→08:18)
[2023-10-09 04:00] VITALS: BP 141/82; PULSE 73; RESP 16; TEMP 36.6; O2SAT 92
[2023-10-09] MEDS: Levothyroxine Sodium 200 MCG TABLET PO (05:20)
[2023-10-09] MEDS: Levothyroxine Sodium 25 MCG TABLET 12.5 MCG PO (05:20)
[2023-10-09] MEDS: Omeprazole 20 MG CAPSULE.DR PO (06:27)
[2023-10-09 07:27] LABS: MANUAL DIFF FLAG NO
[2023-10-09 07:28] LABS: Glucose, Whole Blood 126 mg/dL (60-115)
[2023-10-09 07:32] VITALS: BP 153/92; PULSE 79; RESP 16; TEMP 36.2; O2SAT 89
[2023-10-09 07:32] LABS: Basophils Percent Auto 0.3 % (0-2); Hematocrit 51.1 % (37.0-47.0); Hemoglobin 15.7 g/dl (12.0-16.0); Imm Gran Abs Auto 0.02 X10*3/uL (0.00-0.03); Imm Gran Pct Auto 0.3 % (0.0-0.4); Lymphocytes Absolute Auto 1.7 X10*3/uL (1.2-4.9); Lymphocytes Percent Auto 23.9 % (20-40); Mean Corpuscular HGB Conc 30.7 g/dl (31.0-35.0); Mean Corpuscular Hemoglobin 27.5 pg (27.0-33.0); Mean Corpuscular Volume 89.5 fL (80.0-98.0); Mean Platelet Volume 11.1 fL (9.4-12.3); Monocytes Absolute Auto 0.4 X10*3/uL (0.1-1.2); Monocytes Percent Auto 5.7 % (2-11); Neutrophils Absolute Auto 4.9 x10*3/uL (2.0-8.3); Neutrophils Percent Auto 69.8 % (45-73); Platelet Count 194 X10*3/uL (160-400); Red Blood Count 5.71 X10*6/uL (4.20-5.50); Red Cell Distribution Width 16.8 % (11.0-16.0)
[2023-10-09 07:34] VITALS: PULSE 68; RESP 18; O2SAT 91
[2023-10-09] MEDS: Albuterol/Iprat 2.5/0.5MG 3 ML AMPUL.NEB INHALE ×2 (07:34→11:14)
[2023-10-09 08:00] LABS: Anion Gap 13 (12-20); Blood Urea Nitrogen 16 mg/dL (9-16); Calcium 10.3 mg/dL (8.4-10.2); Carbon Dioxide 35 mmol/L (22-29); Chloride 96 mmol/L (96-108); Creatinine Clr Calc Pharmacy 109.8; Estimated Glomerular Filt Rate > 60; Glucose Random 115 mg/dL (60-115); Magnesium 2.5 mg/dL (1.6-2.6); Phosphorus 3.1 mg/dL (2.7-4.5); Potassium 4.1 mmol/L (3.3-5.1); Sodium 140 mmol/L (135-145)
[2023-10-09 08:09] LABS: VBG Base Excess 13.7 mmol/L; VBG HCO3 42 mmol/L (22-26); VBG pCO2 65 mmHg; VBG pH 7.41 (7.32-7.43); VBG pO2 67 mmHg
[2023-10-09 08:11] LABS: Venous Blood Gas Refer to POC result
[2023-10-09] MEDS: Furosemide 20 MG TABLET PO (08:11)
[2023-10-09] MEDS: amLODIPine Besylate 5 MG TABLET PO (08:11)
[2023-10-09] MEDS: levoFLOXacin 500 MG TABLET PO (08:11)
[2023-10-09] MEDS: methylPREDNISolone Sod Succ 125 MG/2 ML VIAL 80 MG IVPUSH (08:11)
[2023-10-09] MEDS: methADONE HCl 20 MG/2 ML ORAL.CONC 85 MG PO (08:12)
[2023-10-09] MEDS: 0.9 % Sodium Chloride Flush 3 ML SYRINGE IVFLUSH (08:12)
--- NOTE | 2023-10-09 10:40 | PM.DS ---
DS: Providers Provider Date of Service: 10/09/23 Date of admission: 10/06/23 19:40 Primary care physician: Cathleen Sears MD DS: Diagnosis Discharge Diagnosis (1) COPD (chronic obstructive pulmonary disease): Status: Acute DS: Summary Hospital Course Hospital Course: From the admission H&P: The patient is a 57-year-old armenian speaking female with a past medical history of COPD on home 02 at 4-6L,? hepatitis C, cirrhosis,? hypertension, hypothyroidism, hyperlipidemia, Substance abuse (on methadone), and tobacco use? who presented to the emergency? department with dyspnea.? Patient presented to the emergency department with? dyspnea. ? Patient reported acute shortness of breath,? satting 70% on 4L baseline O2.? she has a reported cough and respiratory symptoms.? ? Laboratory data was? consistent with respiratory acidosis,? 7.//40,? she was placed on BiPAP.? ED course: She received albuterol, Solu-Medrol 125, cefepime and magnesium 2gm Patient admitted to ICU for hemodynamic monitoring of acute hypoxic and hypercapnic respiratory failure secondary to COPD exacerbation requiring BiPAP support Hospital Course: The patient was admitted to the intensive care unit for acute on chronic hypoxic and hypercarbic respiratory failure requiring BiPAP therapy. She was treated with systemic steroids, antibiotics and scheduled bronchodilators. She improved quickly and was transitioned to the medical floor on hospital day 2. There her treatment with steroids antibiotics and updrafts was continued. The patient is now at her baseline 4-6 L of supplemental oxygen. She has improved enough and is requesting discharge as it is her [birth year] tomorrow. Given her stability and improvement towards baseline I think this is reasonable and hence she will be discharged home with a prednisone taper as well as 5 more days of doxycycline. Time Attestation Discharge Coordination Time (in mins): 40 Quality: Safe Use of Opioids Does Pt have an Active Cancer Diagnosis on the Problem List?: No Quality: Stroke Does the patient have a stroke diagnosis?: No Physical Exam Vital Signs: Vital Signs: Last Vital Signs Temp 97.2 F 10/09/23 07:32 Pulse 68 10/09/23 07:34 Resp 18 10/09/23 07:34 BP 153/92 H 10/09/23 07:32 Pulse Ox 89 L 10/09/23 07:32 O2 Del Method Nasal Cannula 10/09/23 07:32 O2 Flow Rate 6 10/09/23 07:32 FiO2 40 10/08/23 03:00 Oxygen Flow Rate 11 10/06/23 15:14 BMI result Body Mass Index 28.6 Const: Other: Awake and alert No respiratory distress Improved air entry bilaterally DS: Data Data Completed and Pending Completed studies during hospitalization [Text1]: Procedures Assistance with Respiratory Ventilation, Less than 24 Consecutive Hours, Continuous Positive Airway Pressure (09/02/23) Insertion of Endotracheal Airway into Trachea, Via Natural or Artificial Opening (06/30/23) Insertion of Infusion Device into Superior Vena Cava, Percutaneous Approach (06/30/23) Respiratory Ventilation, Less than 24 Consecutive Hours (06/30/23) Ultrasonography of Superior Vena Cava, Guidance (06/30/23) Labs on day of discharge: Laboratory Results - last 24 hr 10/08/23 10/08/23 10/08/23 11:43 15:08 20:52 WBC RBC Hgb Hct MCV MCH MCHC RDW Plt Count MPV Immature Gran % (Auto) Neut % (Auto) Lymph % (Auto) Mcdonald % (Auto) Eos % (Auto) Baso % (Auto) Lymph # (Auto) Mcdonald # (Auto) Eos # (Auto) Baso # (Auto) Abs Immat Gran (auto) Absolute Neuts (auto) Absolute Nucleated RBC Nucleated RBC % (auto) VBG pH VBG pCO2 VBG pO2 VBG HCO3 VBG O2 Saturation VBG Base Excess Sodium Potassium Chloride Carbon Dioxide Anion Gap BUN Creatinine Estim Creat Clear Calc Estimated GFR POC Glucose 146 H 236 H 166 H Random Glucose Calcium Phosphorus Magnesium 10/09/23 10/09/23 10/09/23 07:16 07:18 08:01 WBC 7.0 RBC 5.71 H Hgb 15.7 Hct 51.1 H MCV 89.5 MCH 27.5 MCHC 30.7 L RDW 16.8 H Plt Count 194 MPV 11.1 Immature Gran % (Auto) 0.3 Neut % (Auto) 69.8 Lymph % (Auto) 23.9 Mcdonald % (Auto) 5.7 Eos % (Auto) 0.0 Baso % (Auto) 0.3 Lymph # (Auto) 1.7 Mcdonald # (Auto) 0.4 Eos # (Auto) 0.0 Baso # (Auto) 0.0 Abs Immat Gran (auto) 0.02 Absolute Neuts (auto) 4.9 Absolute Nucleated RBC 0.000 Nucleated RBC % (auto) 0.0 VBG pH 7.41 VBG pCO2 65 VBG pO2 67 VBG HCO3 42 H VBG O2 Saturation 93.0 VBG Base Excess 13.7 Sodium 140 Potassium 4.1 Chloride 96 Carbon Dioxide 35 H Anion Gap 13 BUN 16 Creatinine 0.59 Estim Creat Clear Calc 109.8 Estimated GFR > 60 POC Glucose 126 H Random Glucose 115 Calcium 10.3 H Phosphorus 3.1 Magnesium 2.5 Preliminary micro results at discharge 10/06/23 16:25 Blood Culture - Preliminary Blood - Venous No growth after 48 hours. 10/06/23 15:42 Blood Culture - Preliminary Blood - Venous No growth after 48 hours. Discharge Plan Discharge Anticipated Discharge Date/Time: 10/09/23 10:26 Patient Disposition: Home Health Service Discharge Diagnosis: COPD Respiratory failure Referrals: Cathleen Sears MD [Primary Care Provider] - 1 Week Discharge Medications: New doxycycline hyclate 100 mg capsule 100 mg PO BID Qty: 10 0RF prednisone 10 mg tablet See Taper PO DIRECTED Qty: 30 0RF Taper: Prednisone 40 mg daily for 3 Days and 0 Hour 30 mg daily for 3 Days and 0 Hour 20 mg daily for 3 Days and 0 Hour 10 mg daily for 3 Days and 0 Hour Rx Instructions: see taper instructions Continued rosuvastatin 20 mg Tablet 20 mg PO BEDTIME ipratropium-albuterol 0.5 mg-3 mg(2.5 mg base)/3 mL solution for nebulization 3 ml inhalation QID PRN (Reason: wheezing) sertraline 100 mg Tablet 100 mg PO DAILY@1200 hydroxyzine pamoate 50 mg capsule 50 mg PO BID PRN (Reason: Itching or anxiety) methadone 10 mg/mL Concentrate 85 mg PO DAILY Rx Instructions: [facility] methadone clinic per pt sennosides [senna] 8.6 mg tablet 17.2 mg PO BEDTIME PRN (Reason: constipation) docusate sodium 100 mg capsule 100 mg PO BID metformin 500 mg tablet extended release 24 hr 500 mg PO DAILY@1800 furosemide 20 mg tablet 20 mg PO DAILY levothyroxine 25 mcg tablet 12.5 mcg PO DAILY@0600 pantoprazole 40 mg tablet,delayed release (DR/EC) 40 mg PO DAILY@1200 famotidine [Pepcid] 40 mg tablet 40 mg PO BEDTIME PRN (Reason: Heartburn) amlodipine 10 mg tablet 5 mg PO DAILY simethicone 180 mg capsule 180 mg PO BID fluticasone propion-salmeterol [Advair Diskus] 500-50 mcg/dose blister with device 1 ea INHALATION BID olmesartan 40 mg tablet 40 mg PO DAILY omega-3 acid ethyl esters 1 gram capsule 1 cap PO BID albuterol sulfate [Ventolin HFA] 90 mcg/actuation HFA aerosol inhaler 2 puff INHALATION Q6H PRN (Reason: wheezing) perphenazine 4 mg tablet 4 mg PO BEDTIME sertraline 25 mg tablet 25 mg PO DAILY@1200 Incruse Ellipta 62.5 mcg/actuation blister with device 1 inh inhalation DAILY levothyroxine 200 mcg tablet 200 mcg PO DAILY@0600 Discharge Orders: Discharge Order (Routine); Ordered 10/09/23 Ordered By: Dinesh Beltran Diet: Advance to usual diet Activity on Discharge: As tolerated Stand Alone Forms: Patient Portal Discharge page Print Language: Sinhala Care Plan Goals: Take prednisone as prescribed -- you can start first dose tomorrow Finish doxycyline for 5 days -- you can start your first dose tomorrow Continue your other medications as usual Health Concerns: see above Plan of Treatment: see above Assessment: see discharge summary
--- NOTE | 2023-10-09 11:11 | MHC.CM.PN ---
Addendum entered by Marni Sanford 10/09/23 14:38: LAST DOSE LETTER AND DCS FAXED TO [facility] Addendum entered by Marni Sanford 10/09/23 13:42: CM CALLED [facility] AGAIN AT 1335 HOURS AND LEFT ANOTHER MESSAGE WITH THE ANSWERING SERVICE CM RECEIVED A RETURN CALL FROM REAL NGO WHO REQUESTED PTS DCS AND LAST DOSE LETTER BE FAXED TO [phone] [facility] TRANSPORT ARRANGED FOR [address] [place] Original Note: PT CLEARED TO DC HOME WITH RESUMPTION OF SERVICES, INCLUDING [facility] VNA FOR METHADONE DELIVERY CM CALLED [facility] [phone] AND SPOKE TO THE ANSWERING SERVICE. CM AWAITING A RESPONSE FROM THE RN SOCIAL WORK RN TO NOTIFY THEM OF DC AND REQUEST A FAX NUMBER FOR THE DCS AND LAST DOSE LETTER
[2023-10-09 11:15] VITALS: PULSE 98; RESP 20; O2SAT 91
[2023-10-09 12:00] VITALS: BP 144/84; PULSE 92; RESP 16; TEMP 36.4; O2SAT 92
[2023-10-09 12:13] LABS: Glucose, Whole Blood 176 mg/dL (60-115)
[2023-10-09] MEDS: Sertraline HCL 25 MG TABLET PO (12:27)
[2023-10-09] MEDS: Sertraline HCL 100 MG TABLET PO (12:27)
[2023-10-09] MEDS: Insulin Lispro 100 UNIT/ML 3 ML VIAL SUBCUT (12:29)
== END 2023-10-09 14:36 | disposition home health service (06) | DRG 140 ==
LOC: HO.ED 19:50 → HO.EDOVER 19:52 → HO.ICU 19:57 → HO.IMC 10-08 06:46
PROVIDERS: Internal Medicine Critical Care Medicine; Admitting Provider Registered Nurse Community Health; Emergency Provider Emergency Medicine Emergency Medical Services; PCP Family Medicine; Visit Provider Family Medicine
DX: J44.1 Chronic obstructive pulmonary disease with (acute) exacerbation (principal); J96.21 Acute and chronic respiratory failure with hypoxia; G92.8 Other toxic encephalopathy; Z99.81 Dependence on supplemental oxygen; K70.30 Alcoholic cirrhosis of liver without ascites; D69.6 Thrombocytopenia, unspecified; F39 Unspecified mood [affective] disorder; E03.9 Hypothyroidism, unspecified; E11.9 Type 2 diabetes mellitus without complications; S92.532A Displaced fracture of distal phalanx of left lesser toe(s), initial encounter for closed fracture; X58.XXXA Exposure to other specified factors, initial encounter; J96.22 Acute and chronic respiratory failure with hypercapnia; F19.10 Other psychoactive substance abuse, uncomplicated; F17.210 Nicotine dependence, cigarettes, uncomplicated; F11.20 Opioid dependence, uncomplicated; Z20.822 Contact with and (suspected) exposure to COVID-19; Z71.6 Tobacco abuse counseling; Z88.0 Allergy status to penicillin; Z79.51 Long term (current) use of inhaled steroids; Z79.890 Hormone replacement therapy; Z79.84 Long term (current) use of oral hypoglycemic drugs; Z79.899 Other long term (current) drug therapy
CPT/HCPCS: 0241U; 36415; 71045; 73620; 80048; 80307; 81003; 82803; 82947; 83605; 83735; 84100; 84484; 85025; 87040; 93005; 94640; 94660; 97162; 99285; C1758; J0131; J0456; J0692; J1120; J1650; J1956; J2919; J3475; P9047

== ENCOUNTER → 2023-10-06 15:29 | Outpatient (BNV) | payer MEDICAID, SELFPAY | PROVIDERS: Admitting Provider Registered Nurse Community Health; Emergency Provider Emergency Medicine Emergency Medical Services; PCP Family Medicine; Visit Provider Internal Medicine Cardiovascular Disease | DX: R06.02 Shortness of breath (principal) | CPT/HCPCS: 93010 ==

== ENCOUNTER → 2023-10-06 19:40 | Outpatient (BNV) | payer MEDICAID, SELFPAY | PROVIDERS: Admitting Provider Registered Nurse Community Health; Emergency Provider Emergency Medicine Emergency Medical Services; PCP Family Medicine; Visit Provider Registered Nurse Community Health | DX: J96.01 Acute respiratory failure with hypoxia (principal); J96.02 Acute respiratory failure with hypercapnia; J44.1 Chronic obstructive pulmonary disease with (acute) exacerbation; J44.9 Chronic obstructive pulmonary disease, unspecified; J81.1 Chronic pulmonary edema; I95.9 Hypotension, unspecified; J96.20 Acute and chronic respiratory failure, unspecified whether with hypoxia or hypercapnia; I10 Essential (primary) hypertension; F19.10 Other psychoactive substance abuse, uncomplicated | CPT/HCPCS: 99291 ==

== ENCOUNTER → 2023-10-06 19:40 | Outpatient (BNV) | payer MEDICAID, SELFPAY | PROVIDERS: Admitting Provider Registered Nurse Community Health; Emergency Provider Emergency Medicine Emergency Medical Services; PCP Family Medicine; Visit Provider Family Medicine | DX: J44.1 Chronic obstructive pulmonary disease with (acute) exacerbation (principal) | CPT/HCPCS: 99232; 99239 ==

== ENCOUNTER 2023-10-12 13:23 | Outpatient (AMB) | payer MEDICAID, SELFPAY ==
--- NOTE | 2023-10-12 13:25 | A.OFFVIS_ITS ---
Vital Signs 10/12/23 13:26 Height 5 ft 5 in Weight 160 lb 7.944 oz BMI 26.7 BP 104/54 L Blood Pressure Location Lt brachial Position Sitting Pulse 104 H Pulse Source Pulse Oximeter Intake Visit Reasons: pnp/dr aiken/vibha leg edema Doctor Podiatric Medicine Required: No Doctor Podiatric Medicine Services: Doctor Podiatric Medicine Offered & Declined Doctor Podiatric Medicine Name: Sandra-niece Accompanied by: Family/Other Allergies Penicillins [PENICILLINS] Allergy (Unknown, Verified 10/06/23 15:17) RED ITCHY RASH SEAFOOD Allergy (Unknown, Uncoded 10/06/23 15:17) FEVER SWELLING Medication List - Last Reconciled 10/12/23 by Bimal Hsu MD albuterol sulfate 90 mcg/actuation (Ventolin HFA) 2 puffs inhalation Q6H PRN amlodipine 5 mg PO DAILY aspirin (Adult Low Dose Aspirin) 81 mg PO DAILY docusate sodium 100 mg PO BID doxycycline hyclate 100 mg PO BID famotidine (Pepcid) 40 mg PO BEDTIME PRN fluticasone propion-salmeterol 500-50 mcg/dose (Advair Diskus) 1 ea inhalation BID furosemide 20 mg PO DAILY hydroxyzine pamoate 50 mg PO BID PRN ipratropium-albuterol 0.5 mg-3 mg(2.5 mg base)/3 mL 3 mL inhalation QID PRN levothyroxine 12.5 mcg PO DAILY@0600 levothyroxine 200 mcg PO DAILY@0600 metformin ER 500 mg PO DAILY@1800 methadone 85 mg PO DAILY olmesartan 40 mg PO DAILY omega-3 acid ethyl esters 1 cap PO BID pantoprazole 40 mg PO DAILY@1200 perphenazine 4 mg PO BEDTIME prednisone See Taper mg PO DIRECTED rosuvastatin 20 mg PO BEDTIME sennosides (senna) 17.2 mg PO BEDTIME PRN sertraline 100 mg PO DAILY@1200 sertraline 25 mg PO DAILY@1200 simethicone 180 mg PO BID umeclidinium 62.5 mcg/actuation (Incruse Ellipta) 1 inh inhalation DAILY HPI Comments Details: Evette is here for cardiac consultation. Previously no documented coronary disease or myocardial infarction or cardiomyopathy or in fact any other cardiac issues. Apparently, has done drugs including heroin and cocaine many years ago but nothing recently. She does have significant COPD at baseline and also uses oxygen. Has hepatitis-C and cirrhosis. Many comorbidities. Unfortunately, she still smoking. Has had hospitalizations for respiratory failure. From cardiac standpoint, no clear history. She does not get any clear-cut angina. She does get short of breath related to her COPD. [facility] Medical History (Updated 10/12/23 @ 14:05 by Bimal Hsu MD) Polysubstance abuse Hypertension COPD (chronic obstructive pulmonary disease) Acute and chronic respiratory failure Hypotension Pulmonary edema Respiratory failure Methadone dependence Alcoholic cirrhosis Acute respiratory failure, unspecified whether with hypoxia or hypercapnia Hyperlipidemia Psychosis Hypoxia Acute exacerbation of chronic obstructive airways disease Hepatitis C HTN (hypertension) Hypothyroid COPD (chronic obstructive pulmonary disease) Family History Father HTN (hypertension) Mother Gastritis Ovarian cancer Arthritis Son Thyroid disease Other Hypothyroid Social History Household Members: Spouse Household Members Other:: 1 Housing: Apartment Do you presently have visiting nurse or other home services: Yes ( MEDICAL RECORD ADMINISTRATOR 3 hrs only Mondays ) Alcohol intake: current Alcohol intake frequency: does not drink Patient Tobacco Use Status: Current everyday Tobacco user Tobacco use type: Cigarette Cigarette Packs Per Day: 1 Cigarettes Per Day: 10 Years Smoked: 30 e-Cigarette/Vaping Use: Never Used Second Hand Smoke Exposure: No Substance Use Type: Heroin Advance Directives Date on File: 08/18/23 service: No Current occupational status: unemployed Review of Systems Const Denies chills, Denies daytime sleepiness, Denies fatigue, Denies fever(s), Denies poor appetite, Denies snoring, Denies stops breathing during sleep, Denies weakness, Denies weight gain and Denies weight loss Eyes Denies loss of vision ENT Denies dizziness Card Denies chest pain, Denies irregular heart rhythm, Denies claudication, Reports leg edema, Denies lightheadedness, Denies palpitations, Denies dyspnea on exertion and Denies orthopnea Resp Denies cough, Denies excessive phlegm production, Denies dyspnea on exertion, Denies snoring and Denies wheezing GI Denies abdominal pain, Denies hematochezia, Denies change in bowel habits, Denies nausea and Denies vomiting Denies urinary frequency and Denies dysuria Musc Denies arthralgias, Denies muscle weakness, Denies numbness and Denies other Skin/Breast Denies nail changes and Denies rash Neuro Denies Abnormal speech present, Denies dizziness, Denies loss of vision, Denies memory loss, Denies numbness and Denies weakness Psych Denies depression and Denies memory loss Endo Denies fatigue and Denies palpitations Daniele/Lymph Denies easy bruising Aller/Immun Denies wheezing Physical Exam Vital Signs: Last Vital Signs Pulse 104 H 10/12/23 13:26 BP 104/54 L 10/12/23 13:26 BMI result Body Mass Index 26.7 Const General: comfortable and no acute distress Orientation/consciousness: patient oriented x3 HEENT Other: Unremarkable Head: Yes normal to inspection Neck Neck: Yes normal visual inspection Chest Chest palpation & inspection: normal inspection of the chest Resp Auscultation: wheezes and diminished lung sounds Cardio Palpation: normal PMI Heart sounds: S1 normal heart sound present, S2 normal heart sound present, no gallops, no murmurs and no rubs GI Palpation (GI): Soft to palpation Back/Spine/Pelvis Other: unremarkable Skin General skin exam: no rashes or lesions noted Neuro General: patient oriented x3 Speech: No Abnormal speech present Extrem General: Yes normal to inspection Psych Mental Status: mental status grossly normal Assessment & Plan Assessment & Plan (1) Atherosclerotic cardiovascular disease: Code(s): I25.10 - Atherosclerotic heart disease of [place] coronary artery without angina pectoris Category: Medical Plan In the most recent EKG, underlying artifact. There is sinus tachycardia, leftward axis but no clear-cut ischemic findings. In the echocardiogram from March, LVEF 55-60%. Reduced peak global longitudinal strain. Inferoseptal wall/anteroseptal chacon described to be akinetic. Overall, findings may indicate underlying coronary disease. They may also be related to coronary event in the setting of drug use from many years ago. Timing is unclear. Clinically, she does not have any angina whatsoever. Main issue is rather shortness of breath related to COPD. We discussed about different options for ischemic evaluation including stress test visits with coronary CTA. Do not really believe she can cooperate for a stress test due to advanced lung disease and oxygen dependence. CTA will also be challenging as she has sinus tachycardia and hence image quality would be suboptimal. We will plan on following her clinically for now. She is on aspirin and statins. Otherwise, risk factor modification. Must stop smoking and we discussed that today. Her lipids are on the higher side and she is due for follow-up checks. Based on this, we can see if meds need to be adjusted. If any concerns like chest pain/angina, they will contact us immediately. Discussed about this as well. Discussed with niece who came for appointment. All questions answered. Coding Level of Care Code New Pt Level 4 (87429) Diagnoses Atherosclerotic cardiovascular disease I25.10
[2023-10-12 13:26] VITALS: BP 104/54; PULSE 104; BMI 26.7
== END 2023-10-12 13:55 | disposition home or self-care (01) ==
PROVIDERS: PCP Family Medicine; Visit Provider Internal Medicine
DX: I25.10 Atherosclerotic heart disease of native coronary artery without angina pectoris (principal)
CPT/HCPCS: 99204

== ENCOUNTER → 2023-10-12 13:23 | Outpatient (BNVA) | payer MEDICAID, SELFPAY | PROVIDERS: PCP Family Medicine; Visit Provider Internal Medicine | DX: I25.10 Atherosclerotic heart disease of native coronary artery without angina pectoris (principal); Z79.82 Long term (current) use of aspirin; Z79.899 Other long term (current) drug therapy | CPT/HCPCS: 99202 ==

== ENCOUNTER 2023-10-25 19:45 | Inpatient (IN) | payer MEDICAID, SELFPAY ==
[2023-10-25] VITALS (17 sets, daily range): BP systolic 75–149; BP diastolic 31–96; PULSE 84–114; RESP 17–29; O2SAT 80–99; BMI 27.4; BMI 32.4
--- NOTE | ~2023-10-25 | CT_ITS ---
EXAMINATION: CT CHEST WITHOUT CONTRAST CLINICAL INFORMATION: Hypoxia COMPARISON: Chest x-ray from the same day, CT 07/01/2023 TECHNIQUE: Multidetector volumetric CT imaging of the chest was done. Axial MIP volume rendering provided. Sagittal and coronal reformatted images were obtained. This CT examination was performed using dose optimization techniques as appropriate, variously including the following: *Automated exposure control *Adjustment of mA and/or kV according to patient size (this includes techniques or standardized protocols for targeted exams where dose is matched to indication/reason for exam; i.e. extremities or head) *Use of iterative reconstruction technique DLP: 249 mGy-cm FINDINGS: LUNGS: Endotracheal tube tip lies approximately 3.7 cm above the jeffry. There is extensive upper lobe predominant centrilobular and paraseptal emphysema. There is complete opacification of the left lower lobe which also demonstrates some volume loss favoring at least a component of atelectasis. Adjacent dense opacity is present in the posterior left upper lobe. Dense regions of opacity are also present in the basilar right middle and lower lobes favored to at least partially be due to atelectasis. MEDIASTINUM: Visualized thyroid gland is grossly unremarkable. No significant mediastinal lymphadenopathy is seen. There is cardiomegaly without pericardial effusion. Aorta appears normal in caliber. CORONARY ARTERY CALCIFICATION: None visualized on this study. PLEURA: No pneumothorax or significant pleural effusion. AXILLA: No lymphadenopathy. UPPER ABDOMEN: Unremarkable. OSSEOUS STRUCTURES: Unremarkable. CT/CT chest wo IV con IMPRESSION: 1. Regions of dense opacity towards the bilateral lung bases as described above. This is favored to at least partially be due to atelectasis given associated volume loss, though a component of consolidation/pneumonia cannot be excluded. 2. Extensive upper lobe predominant emphysema. 3. Cardiomegaly.
--- NOTE | ~2023-10-25 | CT_ITS ---
EXAMINATION: CT ANGIOGRAM OF THE CHEST WITH AND WITHOUT CONTRAST (CT PULMONARY ANGIOGRAM FOR PE) CLINICAL INFORMATION: Reason for Exam hypoxia, tachycardia, elevated ddimer COMPARISON: 10/25/2023 TECHNIQUE: Prior to contrast administration, noncontrast localization images were obtained. Subsequently, multidetector volumetric imaging was performed from the thoracic inlet to below the diaphragms following the administration of 65 mL Omnipaque 350 intravenous contrast. No contrast reaction reported Sagittal, coronal, and MIP oblique sagittal reformatted images were obtained on the CT workstation, uploaded to PACS, and reviewed. This CT examination was performed using dose optimization techniques as appropriate, variously including the following: *Automated exposure control *Adjustment of mA and/or kV according to patient size (this includes techniques or standardized protocols for targeted exams where dose is matched to indication/reason for exam; i.e. extremities or head) *Use of iterative reconstruction technique Total exam dose-length product 301 mGy-cm FINDINGS: QUALITY OF STUDY/CONTRAST BOLUS: Satisfactory. PULMONARY ARTERIES: No filling defects are seen in the main, lobar, or segmental pulmonary arteries to suggest the presence of pulmonary emboli. THORACIC AORTA: No aneurysm or dissection. LUNG: Extensive upper lobe predominant emphysema. There is partial dense opacification of the bilateral lower lobes and right middle lobe, favored to at least mostly be due to atelectasis. PLEURA: No pneumothorax or pleural effusion. MEDIASTINUM: The visualized thyroid gland is unremarkable. There are subcentimeter mediastinal lymph nodes within the range of normal variation. Cardiomegaly without pericardial effusion. No evidence of septal bowing or right heart strain. CORONARY ARTERY CALCIFICATION: None visualized on this study. CHEST WALL/AXILLA: No axillary or internal mammary lymphadenopathy. OSSEOUS STRUCTURES: No acute or suspicious osseous abnormality. UPPER ABDOMEN: Unremarkable. No reflux of contrast into the hepatic veins to suggest elevated right heart pressures. CT/CT angio chest PE protocol IMPRESSION: 1. No pulmonary embolus identified. 2. Extensive upper lobe predominant emphysema. 3. Partial dense opacification of the bilateral lower lobes and right middle lobe, favored to at least mostly be due to atelectasis. In the proper clinical setting, some superimposed consolidation cannot be excluded. VTE: negative.
--- NOTE | ~2023-10-25 | XR_ITS ---
EXAMINATION: XR CHEST CLINICAL INFORMATION: SOB and COPD. COMPARISON: Chest 10/06/2023 TECHNIQUE: Frontal view of the chest was obtained. FINDINGS: The lungs are well-expanded with patchy opacity right lung base likely infiltrate or atelectasis. Rest of lungs are clear. The heart size and pulmonary vascularity is normal. No gross bony abnormality seen. XR/XR chest 1V IMPRESSION: New patchy opacity right lung base likely infiltrate or atelectasis.
--- NOTE | ~2023-10-25 | XR_ITS ---
EXAMINATION: XR CHEST CLINICAL INFORMATION: ET tube and NG tube placement. COMPARISON: Chest radiograph dated 10/25/2023 at 8:22 PM. TECHNIQUE: Frontal view of the chest was obtained. FINDINGS: The tip of the endotracheal tube terminates 4.5 cm above the jeffry. There is an enteric tube crossing the diaphragm. The tip is collimated from the [id number]. Heart size remains normal. Bibasilar airspace disease is redemonstrated. No pleural effusion or pneumothorax. No acute osseous abnormality. XR/XR chest 1V IMPRESSION: The tip of the endotracheal tube terminates 4.5 cm above the jeffry. There is an enteric tube crossing the diaphragm. The tip is collimated from the [id number]. Bibasilar airspace disease is redemonstrated.
--- NOTE | 2023-10-25 19:52 | ECG_ITS ---
Test Reason : SOB Blood Pressure : / mmHG Vent. Rate : 089 BPM Atrial Rate : 089 BPM P-R Int : 140 ms QRS Dur : 090 ms QT Int : 386 ms P-R-T Axes : 059 -69 062 degrees QTc Int : 469 ms Normal sinus rhythm Left axis deviation Abnormal ECG When compared with ECG of 06-OCT-2023 16:11, Premature atrial complexes are no longer Present Referred By: Karen Sin Electronically Signed By:Johny Velazco
[2023-10-25 20:10] LABS: MANUAL DIFF FLAG NO
[2023-10-25] MEDS: 0.9 % Sodium Chloride 1,000 ML 999 ML IVCONT (20:10)
[2023-10-25] MEDS: Magnesium Sulfate/H2O 2 GM/50 ML PIGGYBACK IV (20:10)
[2023-10-25] MEDS: methylPREDNISolone Sod Succ 125 MG/2 ML VIAL IVPUSH (20:10)
[2023-10-25] MEDS: Albuterol Sulfate 7.5 MG, Albuterol/Iprat 2.5/0.5MG 3 ML 3 ML INHALE (20:13)
[2023-10-25 20:15] LABS: VBG Base Excess 11.8 mmol/L; VBG HCO3 44 mmol/L (22-26); VBG pCO2 96 mmHg; VBG pH 7.27 (7.32-7.43); VBG pO2 47 mmHg
[2023-10-25 20:18] LABS: Venous Blood Gas Refer to POC result
[2023-10-25 20:21] LABS: Basophils Percent Auto 0.4 % (0-2); Eosinophils Absolute Auto 0.2 X10*3/uL (0.0-0.4); Hematocrit 55.7 % (37.0-47.0); Hemoglobin 16.7 g/dl (12.0-16.0); Imm Gran Abs Auto 0.03 X10*3/uL (0.00-0.03); Imm Gran Pct Auto 0.4 % (0.0-0.4); Lymphocytes Absolute Auto 2.1 X10*3/uL (1.2-4.9); Lymphocytes Percent Auto 25.7 % (20-40); Mean Corpuscular Hemoglobin 28.3 pg (27.0-33.0); Mean Corpuscular Volume 94.4 fL (80.0-98.0); Mean Platelet Volume 10.4 fL (9.4-12.3); Monocytes Absolute Auto 0.5 X10*3/uL (0.1-1.2); Monocytes Percent Auto 6.3 % (2-11); Neutrophils Absolute Auto 5.2 x10*3/uL (2.0-8.3); Neutrophils Percent Auto 64.2 % (45-73); Platelet Count 116 X10*3/uL (160-400); Red Cell Distribution Width 16.6 % (11.0-16.0); White Blood Count 8.1 X10*3/uL (4.8-10.8)
[2023-10-25 20:24] LABS: INTERNATIONAL NORM RATIO 0.8 (0.9-1.1)
[2023-10-25 20:25] LABS: Prothrombin Time 10.2 SEC (11.1-13.3)
[2023-10-25 20:26] LABS: Lactic Acid 0.9 mmol/L (0.5-2.0)
[2023-10-25 20:28] LABS: Ethanol < 10 mg/dL
[2023-10-25 20:36] LABS: B Type Natriuretic Peptide 22 pg/mL (<100)
[2023-10-25 20:37] LABS: Alanine Aminotransferase 20 U/L (0-31); Albumin Level 4.5 g/dL (3.5-5.0); Alkaline Phosphatase 104 U/L (39-117); Anion Gap 11 (12-20); Aspartate Amino Transferase 19 U/L (5-31); Bilirubin Direct 0.2 mg/dL (0.0-0.5); Bilirubin Total 0.6 mg/dL (0.0-1.0); Blood Urea Nitrogen 12 mg/dL (9-16); Calcium 9.6 mg/dL (8.4-10.2); Carbon Dioxide 44 mmol/L (22-29); Chloride 90 mmol/L (96-108); Estimated Glomerular Filt Rate > 60; Glucose Random 110 mg/dL (60-115); Sodium 141 mmol/L (135-145); Total Protein 8.3 g/dL (6.5-8.0)
[2023-10-25 20:38] LABS: Troponin-I High Sensitivity 2.9 ng/L (<3.5-17.0)
[2023-10-25] MEDS: cefTRIAXone sodium 1 GM in 0.9 % Sodium Chloride 50 ML IV (20:54)
[2023-10-25] MEDS: Etomidate 20 MG/10 ML VIAL IVPUSH (21:03)
[2023-10-25] MEDS: Rocuronium Bromide 50 MG/5 ML VIAL 100 MG IVPUSH (21:04)
[2023-10-25] MEDS: propofoL 1,000 MG/100 ML VIAL 12.25 MG IVCONT (21:10)
--- NOTE | 2023-10-25 21:21 | PC.NURSE ---
OG tube placed by MD; soft restraints applied by this RN
[2023-10-25] MEDS: Azithromycin 500 MG in 0.9 % Sodium Chloride 250 ML 125 MG IV (21:37)
[2023-10-25 21:45] LABS: Appearance Urine Clear; Color Urine Yellow; Glucose Urine UA Negative (Negative); Leukocyte Esterase Urine Negative (Negative); Nitrite Urine Negative (Negative); Urine Blood Negative (Negative); Urine Ketones Negative (Negative); Urine Protein Negative (Neg-Trace)
--- NOTE | 2023-10-25 21:50 | ED_ITS ---
HPI - SOB/Dyspnea General Chief Complaint: Dyspnea Stated Complaint: sob Time Seen by Provider: 10/25/23 19:52 Source: EMS Mode of arrival: EMS Limitations: altered mental status and other (Respiratory distress) History of Present Illness ED Provider: Dr. Karen Sin HPI Narrative: Patient comes to the emergency room via ambulance for shortness of breath. At this time, patient is confused, unable to answer questions, in respiratory distress. According to EMS, the patient called because she tried giving herself a breathing treatment but she was still not feeling better. She has been short of breath for several days. According to EMS, patient was saturating in the low 70s on 5 L of oxygen which is patient's home dose. EMS gave her IM Solu-Medrol. When patient arrived to the emergency room, patient tripoding, cyanotic, attempting to answer questions but patient is too short of breath. Related Data Home Medications ?Medication ?Instructions ?Recorded ?Confirmed rosuvastatin 20 mg tablet 20 mg PO BEDTIME 03/11/20 10/12/23 perphenazine 4 mg tablet 4 mg PO BEDTIME 09/24/21 10/12/23 levothyroxine 200 mcg tablet 200 mcg PO DAILY@0600 10/01/22 10/12/23 sertraline 25 mg tablet 25 mg PO DAILY@1200 10/01/22 10/12/23 umeclidinium 62.5 mcg/actuation 1 inh inhalation DAILY 10/01/22 10/12/23 blister powder for inhalation (Incruse Ellipta) hydroxyzine pamoate 50 mg capsule 50 mg PO BID PRN Itching or anxiety 04/20/23 10/12/23 ipratropium 0.5 mg-albuterol 3 mg 3 ml inhalation QID PRN wheezing 04/20/23 10/12/23 (2.5 mg base)/3 mL nebulization soln sertraline 100 mg tablet 100 mg PO DAILY@1200 04/20/23 10/12/23 methadone 10 mg/mL oral concentrate 85 mg PO DAILY 04/21/23 10/12/23 docusate sodium 100 mg capsule 100 mg PO BID constipation 07/01/23 10/12/23 metformin 500 mg tablet,extended 500 mg PO DAILY@1800 07/01/23 10/12/23 release 24 hr sennosides 8.6 mg tablet (senna) 17.2 mg PO BEDTIME PRN constipation 07/01/23 10/12/23 famotidine 40 mg tablet (Pepcid) 40 mg PO BEDTIME PRN Heartburn 08/16/23 10/12/23 furosemide 20 mg tablet 20 mg PO DAILY 08/16/23 10/12/23 levothyroxine 25 mcg tablet 12.5 mcg PO DAILY@0600 08/16/23 10/12/23 pantoprazole 40 mg tablet,delayed 40 mg PO DAILY@1200 08/16/23 10/12/23 release amlodipine 10 mg tablet 5 mg PO DAILY 09/03/23 10/12/23 albuterol sulfate 90 mcg/actuation 2 puff inhalation Q6H PRN wheezing 10/06/23 10/12/23 aerosol inhaler (Ventolin HFA) fluticasone 500 mcg-salmeterol 50 1 ea inhalation BID 10/06/23 10/12/23 mcg/dose blistr powdr for inhalation (Advair Diskus) olmesartan 40 mg tablet 40 mg PO DAILY 10/06/23 10/12/23 omega-3 acid ethyl esters 1 gram 1 cap PO BID 10/06/23 10/12/23 capsule simethicone 180 mg capsule 180 mg PO BID 10/06/23 10/12/23 aspirin 81 mg tablet,delayed 81 mg PO DAILY 10/12/23 10/12/23 release (Adult Low Dose Aspirin) Previous Rx's ?Medication ?Instructions ?Recorded doxycycline hyclate 100 mg capsule 100 mg PO BID #10 caps 10/09/23 prednisone 10 mg tablet See Taper PO DIRECTED #30 tabs 10/09/23 Allergies Allergy/AdvReac Type Severity Reaction Status Date / Time Penicillins [PENICILLINS] Allergy Unknown RED ITCHY Verified 10/25/23 20:01 RASH SEAFOOD Allergy Unknown FEVER Uncoded 10/06/23 15:17 SWELLING Review of Systems 2 Review of Systems: Yes Unobtainable due to mental condition [facility] Past Medical History Medical History Polysubstance abuse Hypertension COPD (chronic obstructive pulmonary disease) Acute and chronic respiratory failure Hypotension Pulmonary edema Respiratory failure Methadone dependence Alcoholic cirrhosis Acute respiratory failure, unspecified whether with hypoxia or hypercapnia Hyperlipidemia Psychosis Hypoxia Acute exacerbation of chronic obstructive airways disease Hepatitis C HTN (hypertension) Hypothyroid COPD (chronic obstructive pulmonary disease) Family History Family History Father HTN (hypertension) Mother Gastritis Ovarian cancer Arthritis Son Thyroid disease Other Hypothyroid Social History Social History Household Members: Spouse Household Members Other:: 1 Housing: Apartment Do you presently have visiting nurse or other home services: Yes ( 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 ) Alcohol intake: current Alcohol intake frequency: does not drink Patient Tobacco Use Status: Current everyday Tobacco user Tobacco use type: Cigarette Cigarette Packs Per Day: 1 Cigarettes Per Day: 10 Years Smoked: 30 Smoked in Last 30 Days: Yes e-Cigarette/Vaping Use: Never Used Second Hand Smoke Exposure: No Use of substances other than those prescribed or required for medical reasons: No Substance Use Type: Heroin Advance Directives: Yes Advance Directives on File: Yes Advance Directives Date on File: 08/18/23 service: No Current occupational status: unemployed Physical Exam 2 Vital Signs: Vital Signs: Last Vital Signs Pulse 91 10/25/23 20:14 Resp 21 H 10/25/23 20:14 BP 149/86 H 10/25/23 20:00 Pulse Ox 80 L 10/25/23 20:00 O2 Del Method Nasal Cannula 10/25/23 20:00 Oxygen Flow Rate 5 10/25/23 20:00 BMI result Body Mass Index 32.4 Const: Other: Appearance: Alert. In respiratory distress Eyes: Pupils equal, round and reactive to light. ENT: Pharynx normal. Neck: Normal inspection. Neck supple. No lymph nodes noted. No crepitus CVS: Normal heart rate and rhythm. Pulses normal. Normal S1 and S2 Respiratory: Patient on non-rebreather, tripoding, using accessory muscles, unable to talk due to shortness of breath. Very tight air movement, almost no wheezing Abdomen: Soft and nontender. No rigidity. No distention. Skin: Skin warm and dry. Normal skin color. Normal skin turgor. Extremities: No lower extremity edema. No Lacerations. No Rash Neuro: Unable to participating cranial nerve assessment Psych: In distress Course Course Course Narrative: -patient was placed on BiPAP, oxygen saturation was kept around 88-90%. However, within 5 minutes, patient started becoming fatigued, became unresponsive, patient was intubated -my interpretation of labs: patient's white blood cell count 8.1, lactic acid 0.9. Patient in acute respiratory failure. Patient's blood gases show a pH of 7.27, pCO2 96, bicarb 44. - Chest x-ray shows pneumonia. -serology pending -I discussed the patient with Dr. Reich and CLIMATOLOGY TEACHER Bill, patient being admitted to the intensive care unit Medications Administered Generic Name Dose Route Start Last Admin Trade Name Freq PRN Reason Stop Dose Admin Magnesium Sulfate 2 gm in 50 mls @ 25 mls/hr 10/25/23 19:53 10/25/23 20:40 Magnesium Sulfate/H2o IV 10/25/23 21:52 Infused ONCE ONE Infusion Azithromycin 500 mg/ Sodium 250 mls @ 125 mls/hr 10/25/23 19:53 10/25/23 21:37 Chloride IV 10/25/23 21:52 125 mls/hr ONCE ONE Administration Propofol 1,000 mg in 100 mls @ 0 mls/hr 10/25/23 20:45 10/25/23 21:10 Diprivan IVCONT 30 mcg/kg/min .Q0M MAYRA 12.25 mls/hr Administration Protocol Per Protocol Discontinued Medications Generic Name Dose Route Start Last Admin Trade Name Freq PRN Reason Stop Dose Admin Albuterol Sulfate 7.5 mg/ 0 mg 10/25/23 20:11 10/25/23 20:13 Albuterol/Ipratropium 3 ml INHALE 10/25/23 20:12 10 each ONCE ONE Administration Etomidate 20 mg 10/25/23 20:31 10/25/23 21:03 Etomidate 20 Mg/10 Ml Vial IVPUSH 10/25/23 20:32 20 mg NOW STA Administration Sodium Chloride 1,000 mls @ 999 mls/hr 10/25/23 19:52 10/25/23 20:10 Ns IVCONT 10/25/23 20:52 999 mls/hr .Q1H1M ONE Administration Ceftriaxone Sodium 1 gm/ 50 mls @ 100 mls/hr 10/25/23 19:53 10/25/23 21:38 Sodium Chloride IV 10/25/23 20:22 Infused ONCE ONE Infusion Methylprednisolone Sodium Succinate 125 mg 10/25/23 19:53 10/25/23 20:10 Methylprednisolone Sod Succ 125 Mg/2 Ml Vial IVPUSH 10/25/23 19:54 125 mg ONCE ONE Administration Rocuronium [place] 100 mg 10/25/23 20:31 10/25/23 21:04 Rocuronium [place] 50 Mg/5 Ml Vial IVPUSH 10/25/23 20:32 100 mg ONCE ONE Administration Medical Decision Making Lab Data 10/25/23 20:05 10/25/23 20:05 Labs: Lab Results 10/25/23 10/25/23 Range/Units 20:05 20:08 WBC 8.1 (4.8-10.8) X10*3/uL RBC 5.90 H (4.20-5.50) X10*6/uL Hgb 16.7 H (12.0-16.0) g/dl Hct 55.7 H (37.0-47.0) % MCV 94.4 (80.0-98.0) fL MCH 28.3 (27.0-33.0) pg MCHC 30.0 L (31.0-35.0) g/dl RDW 16.6 H (11.0-16.0) % Plt Count 116 L D (160-400) X10*3/uL MPV 10.4 (9.4-12.3) fL Immature Gran % (Auto) 0.4 (0.0-0.4) % Neut % (Auto) 64.2 (45-73) % Lymph % (Auto) 25.7 (20-40) % [place] % (Auto) 6.3 (2-11) % Eos % (Auto) 3.0 (0-4) % Baso % (Auto) 0.4 (0-2) % Lymph # (Auto) 2.1 (1.2-4.9) X10*3/uL [place] # (Auto) 0.5 (0.1-1.2) X10*3/uL Eos # (Auto) 0.2 (0.0-0.4) X10*3/uL Baso # (Auto) 0.0 (0.0-0.2) X10*3/uL Abs Immat Gran (auto) 0.03 (0.00-0.03) X10*3/uL Absolute Neuts (auto) 5.2 (2.0-8.3) x10*3/uL Absolute Nucleated RBC 0.000 (0.0-0.012) X10*3/uL Nucleated RBC % (auto) 0.0 (0.0-0.2) /100WBC PT 10.2 L (11.1-13.3) SEC INR 0.8 L (0.9-1.1) VBG pH 7.27 L (7.32-7.43) VBG pCO2 96 mmHg VBG pO2 47 mmHg VBG HCO3 44 H (22-26) mmol/L VBG O2 Saturation 80.0 % VBG Base Excess 11.8 mmol/L Sodium 141 (135-145) mmol/L Potassium 4.0 (3.3-5.1) mmol/L Chloride 90 L (96-108) mmol/L Carbon Dioxide 44 H* D (22-29) mmol/L Anion Gap 11 L (12-20) BUN 12 (9-16) mg/dL Creatinine 0.71 (0.5-1.4) mg/dL Estim Creat Clear Calc 79.0 Estimated GFR > 60 Random Glucose 110 (60-115) mg/dL Lactic Acid 0.9 (0.5-2.0) mmol/L Calcium 9.6 D (8.4-10.2) mg/dL Total Bilirubin 0.6 (0.0-1.0) mg/dL Direct Bilirubin 0.2 (0.0-0.5) mg/dL AST 19 (5-31) U/L ALT 20 (0-31) U/L Alkaline Phosphatase 104 (39-117) U/L Troponin I High Sens 2.9 (<3.5-17.0) ng/L B-Natriuretic Peptide 22 (<100) pg/mL Total Protein 8.3 H (6.5-8.0) g/dL Albumin 4.5 (3.5-5.0) g/dL Ethyl Alcohol < 10 mg/dL Procedures Intubation Intubation Type:: Emergency Endotracheal Intubation Intubation Date:: 10/25/23 Time out performed: Yes sedative: Etomidate Mg Given: 20 paralytic: Rocuronium Mg Given: 100 Laryngoscope: other (GlideScope) ET Tube Size: 7.5 ET Tube Uncuffed: No Tube Secured Depth (cm): 23 Tube Secured Location: lips Tube Placement Confirmation: visualized tube passing through cords, equal breath sounds bilaterally, no breath sounds over epigastrium and confirmation by capnometry Patient Tolerated Procedure: well and no complications Intubation Complications: none Critical Care Time Critical Care Time Critical Care Time: Yes Total Critical Care Time: 90 Attestation: I have personally provided critical care time. Time includes review of lab data, radiology results, discussion with consultants, and monitoring for potential decompensation. Intervention performed as documented. Discharge Plan Discharge Clinical Impression: Pneumonia, Acute hypoxic on chronic hypercapnic respiratory failure Patient Disposition: Admitted As Inpatient Prescriptions: No Action rosuvastatin 20 mg Tablet 20 mg PO BEDTIME ipratropium-albuterol 0.5 mg-3 mg(2.5 mg base)/3 mL solution for nebulization 3 ml inhalation QID PRN (Reason: wheezing) sertraline 100 mg Tablet 100 mg PO DAILY@1200 hydroxyzine pamoate 50 mg capsule 50 mg PO BID PRN (Reason: Itching or anxiety) methadone 10 mg/mL Concentrate 85 mg PO DAILY Rx Instructions: [facility] methadone clinic per pt sennosides [senna] 8.6 mg tablet 17.2 mg PO BEDTIME PRN (Reason: constipation) docusate sodium 100 mg capsule 100 mg PO BID metformin 500 mg tablet extended release 24 hr 500 mg PO DAILY@1800 furosemide 20 mg tablet 20 mg PO DAILY levothyroxine 25 mcg tablet 12.5 mcg PO DAILY@0600 pantoprazole 40 mg tablet,delayed release (DR/EC) 40 mg PO DAILY@1200 famotidine [Pepcid] 40 mg tablet 40 mg PO BEDTIME PRN (Reason: Heartburn) amlodipine 10 mg tablet 5 mg PO DAILY simethicone 180 mg capsule 180 mg PO BID fluticasone propion-salmeterol [Advair Diskus] 500-50 mcg/dose blister with device 1 ea INHALATION BID olmesartan 40 mg tablet 40 mg PO DAILY omega-3 acid ethyl esters 1 gram capsule 1 cap PO BID albuterol sulfate [Ventolin HFA] 90 mcg/actuation HFA aerosol inhaler 2 puff INHALATION Q6H PRN (Reason: wheezing) doxycycline hyclate 100 mg capsule 100 mg PO BID Qty: 10 0RF prednisone 10 mg tablet See Taper PO DIRECTED Qty: 30 0RF Taper: Prednisone 40 mg daily for 3 Days and 0 Hour 30 mg daily for 3 Days and 0 Hour 20 mg daily for 3 Days and 0 Hour 10 mg daily for 3 Days and 0 Hour Rx Instructions: see taper instructions perphenazine 4 mg tablet 4 mg PO BEDTIME sertraline 25 mg tablet 25 mg PO DAILY@1200 Incruse Ellipta 62.5 mcg/actuation blister with device 1 inh inhalation DAILY levothyroxine 200 mcg tablet 200 mcg PO DAILY@0600 aspirin [Adult Low Dose Aspirin] 81 mg tablet,delayed release (DR/EC) 81 mg PO DAILY Print Language: Persian
[2023-10-25 21:55] LABS: Amphetamine Screen Urine Not Detected (Not Detect); Barbiturates, Urine Not Detected (Not Detect); Benzodiazepines Screen Urine Not Detected (Not Detect); Buprenorphine Scr Not Detected (Not Detect); Cannabinoid Screen Urine Not Detected (Not Detect); Cocaine Screen Urine Not Detected (Not Detect); Fentanyl, urine Not Detected (Not Detect); Methadone Screen, Urine Positive (Not Detect); Opiate Screen Urine Not Detected (Not Detect); Oxycodone Screen Urine Not Detected (Not Detect); Phencyclidine Screen Urine Not Detected (Not Detect)
--- NOTE | 2023-10-25 22:03 | P.HPCC_ITS ---
History of Present Illness Date of Service: 10/25/23 Attending physician on admission: Miki Johnson Chief Complaint: Dyspnea The patient is a 57-year-old telugu speaking female with a past medical history of COPD on home 02 at 4-6L,? hepatitis C, cirrhosis,? hypertension, hypothyroidism, hyperlipidemia, Substance abuse (on methadone), and tobacco use? who presented to the emergency? department with dyspnea.? According to EMS patient was satting low 70s on 5 L oxygen at home,? EMS? placed on CPAP and gave IM Solu-Medrol EN route to the hospital.? On arrival to the emergency department patient was significantly confused,? unable to answer questions, in severe respiratory distress,? tripoding? and cyanotic, she was unable to tolerate CPAP and required emergent intubation.? ? Laboratory data was significant for? venous blood gas? 7.27/96/47/44, serum bicarb 44 ?Imaging:? ?Chest x-ray consistent with pulmonary congestion,? right lower lobe with? questionable infiltrate or atelectasis ED course:? she received 1 L bolus, 125 mg of Solu-Medrol, ceftriaxone 1 g, azithromycin 500 mg, and albuterol 7.5 mg Review of Systems 2 Review of Systems: Yes unobtainable due to endotracheal tube PMFSH Past Medical History Medical History (Updated 10/25/23 @ 22:32 by Gretel Khan NP) Pulmonary edema Polysubstance abuse Hypertension COPD (chronic obstructive pulmonary disease) Acute and chronic respiratory failure Hypotension Respiratory failure Methadone dependence Alcoholic cirrhosis Acute respiratory failure, unspecified whether with hypoxia or hypercapnia Hyperlipidemia Psychosis Hypoxia Acute exacerbation of chronic obstructive airways disease Hepatitis C HTN (hypertension) Hypothyroid COPD (chronic obstructive pulmonary disease) Family History Family History Father HTN (hypertension) Mother Gastritis Ovarian cancer Arthritis Son Thyroid disease Other Hypothyroid Social History Social History Household Members: Unknown / Unable to assess Household Members Other:: 1 Housing: Unknown / Unable to assess Do you presently have visiting nurse or other home services: Yes ( 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 ) Alcohol intake: current Alcohol intake frequency: does not drink Patient Tobacco Use Status: Tobacco use Unknown Tobacco use type: Cigarette Cigarette Packs Per Day: 1 Cigarettes Per Day: 10 Years Smoked: 30 Smoked in Last 30 Days: Yes e-Cigarette/Vaping Use: Never Used Second Hand Smoke Exposure: No Use of substances other than those prescribed or required for medical reasons: Unable to respond Substance Use Type: Heroin Currently Displaying Signs/Symptoms of Drug Intoxication Withdrawal: No Advance Directives: Yes Advance Directives on File: Yes Advance Directives Date on File: 08/18/23 Nutrition Risks: On aspiration precautions Patient : No service: No Current occupational status: unemployed Meds Allergies Allergy/AdvReac Type Severity Reaction Status Date / Time Penicillins [PENICILLINS] Allergy Unknown RED ITCHY Verified 10/25/23 20:01 RASH SEAFOOD Allergy Unknown FEVER Uncoded 10/06/23 15:17 SWELLING Active Medications: Current Medications Enoxaparin Sodium (Enoxaparin Sodium 40 Mg/0.4 Ml Syringe) 40 mg SUBCUT Q24H MAYRA Propofol (Diprivan) 1,000 mg in 100 mls @ 0 mls/hr IVCONT .Q0M MAYRA; Protocol Last Admin: 10/25/23 21:10 Dose: 30 mcg/kg/min, 12.25 mls/hr Sodium Chloride (Ns) 1,500 mls @ 999 mls/hr IVCONT .Q1H31M ONE Stop: 10/25/23 22:26 Home Medications ?Medication ?Instructions ?Recorded ?Confirmed ?Last Taken ?Type rosuvastatin 20 mg tablet 20 mg PO BEDTIME 03/11/20 10/26/23 08/15/23 History perphenazine 4 mg tablet 4 mg PO BEDTIME 09/24/21 10/26/23 08/15/23 History levothyroxine 200 mcg tablet 200 mcg PO DAILY@0600 10/01/22 10/26/23 08/15/23 History sertraline 25 mg tablet 25 mg PO DAILY@1200 10/01/22 10/26/23 08/15/23 History umeclidinium 62.5 mcg/actuation 1 inh inhalation DAILY 10/01/22 10/26/23 08/15/23 History blister powder for inhalation (Incruse Ellipta) hydroxyzine pamoate 50 mg capsule 50 mg PO BID PRN Itching or anxiety 04/20/23 10/26/23 Unknown History ipratropium 0.5 mg-albuterol 3 mg 3 ml inhalation QID PRN wheezing 04/20/23 10/26/23 Unknown History (2.5 mg base)/3 mL nebulization soln sertraline 100 mg tablet 100 mg PO DAILY@1200 04/20/23 10/26/23 08/15/23 History methadone 10 mg/mL oral concentrate 85 mg PO DAILY 04/21/23 10/12/23 10/05/23 History docusate sodium 100 mg capsule 100 mg PO BID constipation 07/01/23 10/26/23 08/15/23 History metformin 500 mg tablet,extended 500 mg PO DAILY@1800 07/01/23 10/26/23 08/15/23 History release 24 hr sennosides 8.6 mg tablet (senna) 17.2 mg PO BEDTIME PRN constipation 07/01/23 10/26/23 Unknown History famotidine 40 mg tablet (Pepcid) 40 mg PO BEDTIME PRN Heartburn 08/16/23 10/26/23 Unknown History furosemide 20 mg tablet 20 mg PO DAILY 08/16/23 10/26/23 08/15/23 History levothyroxine 25 mcg tablet 12.5 mcg PO DAILY@0600 08/16/23 10/26/23 08/15/23 History pantoprazole 40 mg tablet,delayed 40 mg PO DAILY@1200 08/16/23 10/26/23 08/15/23 History release amlodipine 10 mg tablet 5 mg PO DAILY 09/03/23 10/26/23 Unknown History albuterol sulfate 90 mcg/actuation 2 puff inhalation Q6H PRN wheezing 10/06/23 10/26/23 Unknown History aerosol inhaler (Ventolin HFA) fluticasone 500 mcg-salmeterol 50 1 ea inhalation BID 10/06/23 10/26/23 Unknown History mcg/dose blistr powdr for inhalation (Advair Diskus) olmesartan 40 mg tablet 40 mg PO DAILY 10/06/23 10/26/23 Unknown History omega-3 acid ethyl esters 1 gram 1 cap PO BID 10/06/23 10/26/23 Unknown History capsule simethicone 180 mg capsule 180 mg PO BID 10/06/23 10/26/23 Unknown History lidocaine 5 % topical patch 1 patch topical DAILY PRN Pain 10/26/23 10/26/23 Unknown History Physical Exam 2 Vital Signs: Vital Signs: Last Vital Signs Pulse 98 10/25/23 21:45 Resp 20 10/25/23 21:45 BP 135/96 H 10/25/23 21:45 Pulse Ox 89 L 10/25/23 21:45 O2 Del Method Mechanical Ventil ation 10/25/23 21:45 Oxygen Flow Rate 5 10/25/23 20:00 BMI result Body Mass Index 32.4 ?General:? Patient intubated ?HEENT:? Head is normocephalic, atraumatic, pupils equal round reactive to light accommodation bilaterally.? Extraocular movements appear intact.? Buccal mucosa is dry, Neck is supple ?Cardiac:? Clear S1-S2, no murmurs rubs or gallops. ?Pulmonary:? Lungs diminished throughout ?Abdomen:? ?Abdomen soft, non-tender, non-distended. Normal bowel sounds. No pulsatile mass. No hepatosplenomegaly. ?Musculoskeletal:? Moves extremities randomly and to pain. ?Neurologic:? No focal deficits noted.Motor strength as above.?? ?Skin:? Scattered bruising throughout extremities, skin is dry Vascular:? 2+ pulses upper and lower extremities distally.? Results Labs 10/26/23 05:14 10/26/23 05:14 Labs: Laboratory Results - last 24 hr 10/25/23 10/25/23 10/25/23 20:05 20:08 21:32 MCV 94.4 MCH 28.3 MCHC 30.0 L RDW 16.6 H Plt Count 116 L D MPV 10.4 Immature Gran % (Auto) 0.4 Neut % (Auto) 64.2 Lymph % (Auto) 25.7 Bowie % (Auto) 6.3 Eos % (Auto) 3.0 Baso % (Auto) 0.4 Lymph # (Auto) 2.1 Bowie # (Auto) 0.5 Eos # (Auto) 0.2 Baso # (Auto) 0.0 Abs Immat Gran (auto) 0.03 Absolute Neuts (auto) 5.2 Absolute Nucleated RBC 0.000 Nucleated RBC % (auto) 0.0 PT 10.2 L INR 0.8 L VBG pH 7.27 L VBG pCO2 96 VBG pO2 47 VBG HCO3 44 H VBG O2 Saturation 80.0 VBG Base Excess 11.8 Anion Gap 11 L Estim Creat Clear Calc 79.0 Estimated GFR > 60 Random Glucose 110 Lactic Acid 0.9 Calcium 9.6 D Total Bilirubin 0.6 Direct Bilirubin 0.2 AST 19 ALT 20 Alkaline Phosphatase 104 Troponin I High Sens 2.9 B-Natriuretic Peptide 22 Total Protein 8.3 H Albumin 4.5 Urine Color Yellow Urine Appearance Clear Urine pH 7.0 Ur Specific [place] 1.010 Urine Protein Negative Urine Glucose (UA) Negative Urine Ketones Negative Urine Blood Negative Urine Nitrite Negative Ur Leukocyte Esterase Negative Urine Opiates Screen Not Detected Ur Buprenorphine Scrn Not Detected Ur Oxycodone Screen Not Detected Urine Methadone Screen Positive H Urine Fentanyl Screen Not Detected Ur Barbiturates Screen Not Detected Ur Phencyclidine Scrn Not Detected Ur Amphetamines Screen Not Detected U Benzodiazepines Scrn Not Detected Urine Cocaine Screen Not Detected U Marijuana (THC) Screen Not Detected Ethyl Alcohol < 10 Imaging Radiologist's Impressions: Impressions Chest X-Ray 10/25/23 20:25 IMPRESSION: New patchy opacity right lung base likely infiltrate or atelectasis. Assessment and Plan (1) Acute hypoxic on chronic hypercapnic respiratory failure: Status: Acute (2) Pulmonary edema: Status: Acute Plan 57-year-old female with a past medical history of COPD on home 02 at 4-6L,? hepatitis C, cirrhosis,? hypertension, hypothyroidism, hyperlipidemia, Substance abuse (on methadone), and tobacco use ,admitted for acute hypercapnic and hypoxic respiratory failure secondary to? pulmonary edema Plan: Neuro:? No acute issues. Cardiac:?? Pulmonary edema:? chest x-ray with evidence of some pulmonary congestion.? Last echo on showed mild ventricular systolic dysfunction with EF of 55-60%. Will give diamox as her serum bicarb is elevated.? Monitor for diuresing.? Hypotension: No evidence of severe sepsis, lactic is negative white count is negative. Patient is required amount of sedation for intubation. Hypotension related to sedation. Wean off sedation and pressors as tolerated Pulmonary:?? Acute hypoxic and hypercapnic respiratory failure secondary to ? pulmonary edema,? ? I do not believe patient is in COPD exacerbation? or a pneumonia? patient? does not have any wheezing ?In right pulmonary infiltrates does not appear to be a pneumonia as patient white count is negative,? with no bandemia.? But will obtain chest CT for further imaging. ? Continue diuresing Renal:? No acute issues.?? Endo:? No acute issues.?? GI:?? No acute issues ID:? ?No acute issues Heme/Onc:? No acute issues. Psych: ? no acute issues Miscellaneous:? No acute issues. Prophylaxis:? lovenox? Critical care time spent:? 60 minutes
[2023-10-25] MEDS: acetaZOLAMIDE sodium 500 MG VIAL IVPUSH (22:18)
[2023-10-25] MEDS: Midazolam HCl/NS 50 MG/50 ML PLAST..BAG IVCONT (22:26)
[2023-10-25 22:30] LABS: Influenza A PCR NEGATIVE (Negative); Influenza B PCR NEGATIVE (Negative); Resp Syncy Virus RNA Qual PCR NEGATIVE (Negative); SARS COV2 PCR INHOUSE NEGATIVE (Negative)
[2023-10-25] MEDS: 0.9 % Sodium Chloride 1,500 ML 999 ML IVCONT (22:34)
[2023-10-25] MEDS: fentaNYL citrate/NS 1,000 MCG/100 ML PLAST..BAG 2.5 MCG IVCONT (22:53)
[2023-10-25] MEDS: Norepinephrine Bitartrate/D5W 8 MG/250 ML PLAST..BAG 8.28 MG IV (23:47)
[2023-10-25] MEDS: Enoxaparin Sodium 40 MG/0.4 ML SYRINGE SUBCUT (23:51)
[2023-10-26] VITALS (39 sets, daily range): BP systolic 91–134; BP diastolic 48–90; PULSE 67–98; RESP 13–25; TEMP 34.1–37.2; O2SAT 88–96; BMI 28.9
[2023-10-26 00:04] LABS: D Dimer High Sensitivity 201 NG/ML
[2023-10-26 00:42] LABS: Venous Blood Gas Refer to POC result
[2023-10-26 00:47] LABS: VBG Base Excess 8.4 mmol/L; VBG HCO3 38 mmol/L (22-26); VBG pCO2 74 mmHg; VBG pH 7.31 (7.32-7.43); VBG pO2 93 mmHg
[2023-10-26] MEDS: propofoL 1,000 MG/100 ML VIAL 20.41 MG IVCONT ×7 (03:28→23:50)
[2023-10-26 05:23] LABS: VBG Base Excess 7.5 mmol/L; VBG HCO3 34 mmol/L (22-26); VBG pCO2 58 mmHg; VBG pH 7.38 (7.32-7.43); VBG pO2 66 mmHg
[2023-10-26 05:27] LABS: Venous Blood Gas Refer to POC result
[2023-10-26 05:28] LABS: Hemoglobin 14.7 g/dl (12.0-16.0); Imm Gran Abs Auto 0.06 X10*3/uL (0.00-0.03); Imm Gran Pct Auto 0.5 % (0.0-0.4); SCAN SMEAR FLAG 1
[2023-10-26 05:30] LABS: Basophils Percent Auto 0.2 % (0-2); Hematocrit 47.3 % (37.0-47.0); Lymphocytes Absolute Auto 0.6 X10*3/uL (1.2-4.9); Lymphocytes Percent Auto 4.6 % (20-40); Mean Corpuscular HGB Conc 31.1 g/dl (31.0-35.0); Mean Corpuscular Hemoglobin 28.2 pg (27.0-33.0); Mean Corpuscular Volume 90.8 fL (80.0-98.0); Mean Platelet Volume 10.6 fL (9.4-12.3); Monocytes Absolute Auto 0.1 X10*3/uL (0.1-1.2); Monocytes Percent Auto 0.6 % (2-11); Neutrophils Absolute Auto 11.7 x10*3/uL (2.0-8.3); Neutrophils Percent Auto 94.1 % (45-73); Platelet Count 112 X10*3/uL (160-400); Red Blood Count 5.21 X10*6/uL (4.20-5.50); Red Cell Distribution Width 15.9 % (11.0-16.0); White Blood Count 12.5 X10*3/uL (4.8-10.8)
[2023-10-26 05:42] LABS: Alanine Aminotransferase 18 U/L (0-31); Albumin Level 3.8 g/dL (3.5-5.0); Alkaline Phosphatase 95 U/L (39-117); Anion Gap 10 (12-20); Aspartate Amino Transferase 19 U/L (5-31); Bilirubin Total 0.6 mg/dL (0.0-1.0); Blood Urea Nitrogen 12 mg/dL (9-16); Calcium 8.9 mg/dL (8.4-10.2); Carbon Dioxide 34 mmol/L (22-29); Chloride 99 mmol/L (96-108); Creatinine Clr Calc Pharmacy 93.2; Estimated Glomerular Filt Rate > 60; Glucose Random 236 mg/dL (60-115); MANUAL DIFF FLAG SCAN; Magnesium 2.5 mg/dL (1.6-2.6); PLT ABN DIST 1; Potassium 3.4 mmol/L (3.3-5.1); Sodium 140 mmol/L (135-145)
[2023-10-26 05:54] LABS: SLIDE REVIEW VERIFIED
[2023-10-26] MEDS: Potassium Chloride Packet 20 MEQ PACKET 40 MEQ PO (06:08)
--- NOTE | 2023-10-26 06:08 | PC.NURSE ---
Patient admitted to ICU from ED at approx 2330. Upon initial assessment, patient sedated on propofol, fentanyl, and versed- patient difficult to sedate, reaching for lines and tubes. Sedation titrated per MAR, RASS -3/-4. Core esophageal probe placed for accurate temp monitoring, afebrile. NSR on tele, HR 80s. Levophed ordered and titrated to maintain MAP > 65. ETT #7.5, 23cm @ lip, ACVC 20/340/6.0/70%. SpO2 goal 88-92% per FARM EQUIPMENT TECHNICIAN. OGT in place, clamped at this time. Tanner catheter in place from ED, urine output approx 100mL/hour. Skin overall intact, diffuse blanchable redness to upper back, bathed upon arrival. Bed locked, in lowest position, bed alarm on.
--- NOTE | 2023-10-26 07:00 | CA_ITS ---
Transthoracic Echocardiogram Patient (Last, First, Middle): Sandra RoseArnol Gender: Female Date of : 1965 Age: 58 Procedure Date: 10/26/2023 Procedure Type: Transthoracic Echocardiogram Location: ICU Height: 165.1 cm Weight: 78.47 kg BSA: 1.86 m2 Heart Rate: bpm BP: 92 / 55 mmHg Senior Budget Analyst: EDWARD Referring MD: Miki Johnson MD Symptoms: AVENDANO Study Quality: Fair Conclusions: - Normal left ventricular size, thickness, and systolic function. The visually estimated ejection fraction is between 55-60%. - E/E prime ratio is between 8 and 15 consistent with indeterminate filling pressures. - The basal inferoseptal segment is akinetic. - Mildly increased right ventricular cavity size. There is normal right ventricular systolic function. - The left atrium is moderately dilated. Findings Procedure Information Contrast agent, definity, is being given per protocol without apparent complications. Left Ventricle Normal left ventricular size, thickness, and systolic function. The visually estimated ejection fraction is between 55-60%. There is evidence of regional wall motion abnormalities. Abnormal diastolic function is noted. Spectral Doppler is indicative of an impaired relaxation filling pattern. E/E prime ratio is between 8 and 15 consistent with indeterminate filling pressures. Wall Motion Rest Echo Findings The basal inferoseptal segment is akinetic. Right Ventricle Mildly increased right ventricular cavity size. There is normal right ventricular systolic function. Atria The left atrium is moderately dilated. The right atrium is normal in size. Aortic Valve Normal aortic valve structure and function. There is no aortic valve stenosis. There is no aortic valve regurgitation. Mitral Valve Normal mitral valve structure and function. There is no mitral valve regurgitation. There is no mitral valve stenosis. Pulmonic Valve The pulmonic valve was not well visualized. Tricuspid Valve Likely normal tricuspid valve structure and function. There is trace tricuspid valve regurgitation. Normal right atrial pressure. There is no evidence of pulmonary hypertension. Great Vessels All visible segments of the aorta are normal in size. Venous The inferior vena cava is normal in size and collapses greater than 50% with inspiration. Pericardium/Pleural There is no evidence of pericardial effusion. Prior Study Comparison No significant change compared to prior study dated: 04/21/2023. Measurements 2D Linear Measurements IVSd: 0.93 0.6-0.9/0.6-1.0 cm LVIDd: 4.97 3.9-5.3/4.2-5.9 cm LVIDd Index: 2.67 2.4-3.2/2.2-3.1 cm/m2 LVIDs: 3.09 2.0-3.6 cm LVPWd: 0.82 0.7-1.1 cm Ao Root: 3.10 2.1-3.5 cm LA Diam: 3.10 2.7-3.8/3.0-4.0 cm LAIDs Index: 1.67 1.5-2.3 cm/m2 LV Mass: 187.79 67-162/88-224 g LV Mass Index: 100.96 43-95/49-115 g/m2 LVOT Diam: 2.10 3.0+(-)1.3 cm 2D Systolic Function EF 4C: 56.70 >55% EF 2C: 51.60 >55% EF BiP: 55.40 >55% Mitral Valve MV Pk E: 0.69 MV PK A: 1.08 MV Decel Time: 188.00 E/A: 0.60 E'Lateral: 5.87 E'Medial: 6.20 E/E' Med: 11.10 E/E' Lat: 11.70 PHT: 55.00 MVA PHT: 4.00 Decel [place]: 3.64 Aortic Valve AoV Pk [place]: 1.47 AoV Mn [place]: 0.94 AoV VTI: 0.22 AoV Pk Grad: 9.00 Aov Mn Grad: 4.00 ALBAN Cont.VTI: 2.96 LVOT LVOT Pk [place]iles: 1.11 LVOT Mn [place]: 0.73 LVOT VTI: 0.19 LVOT Pk Grad: 5.00 LVOT Mn Grad: 2.00 LVOT Diam: 2.10 LVOT Area: 3.46 Diastolic Function MV Pk E: 0.69 MV Pk A: 1.08 E/A: 0.60 E'Medial: 6.20 E/E' Med: 11.10 E' Laterial: 5.87 E/E' Lat: 11.70 Right Ventricle TAPSE (mm): 24.30 TVS' [place]iles: 11.20 Tricuspid Valve TR Pk [place]: 2.57 TR Pk Grad: 26.00 RVSP: 26.00 Great Vessels Aorta Ao Root-2D: 3.10 2.0-3.7 cm Ao Asc: 2.80 2.1-3.4 cm Updated in Other Vendor System with Status of Final Johny Velazco MD electronically signed on 10/26/2023 12:33:42 PM with status of Final
[2023-10-26] MEDS: 0.9 % Sodium Chloride Flush 3 ML SYRINGE IVFLUSH ×2 (07:34→16:23)
[2023-10-26] MEDS: Famotidine/PF 20 MG/2 ML VIAL IVPUSH (07:34)
[2023-10-26] MEDS: Chlorhexidine Gluc Oral Rinse 15 ML MOUTHWASH BUCCAL ×3 (07:37→20:16)
--- NOTE | 2023-10-26 07:38 | PHA.MEDREC ---
Pharmacy Consult ? Medication Reconciliation Pharmacy has completed the medication reconciliation. Patient recently discharged 10/09; patient intubated. Utilized discharge instructions and recent claim history.
[2023-10-26] MEDS: levoFLOXacin/D5W 500 MG/100 ML PIGGYBACK 100 MG IV (09:20)
[2023-10-26] MEDS: acetaZOLAMIDE sodium 500 MG VIAL 250 MG IVPUSH ×2 (09:20→20:16)
[2023-10-26] MEDS: fentaNYL citrate/NS 1,000 MCG/100 ML PLAST..BAG 7.5 MCG IVCONT ×2 (09:28→21:18)
--- NOTE | 2023-10-26 09:34 | P.PNCC_ITS ---
Subjective Subjective Date of Service: 10/26/23 Interval History: 57-year-old lady with underlying COPD on home O2 4-6 L, hepatitis-C, liver cirrhosis, substance abuse, methadone dependent, hypothyroidism admitted on 10/25/2023 with likely secondary to pulmonary aspiration with possible aspiration pneumonia and also underlying cardiomyopathy. Patient treated with empiric diuresis and antibiotics with improvement in her FiO2. Critical Care Time (minutes): 60 Physical Exam 2 Vital Signs: Vital Signs: Last Vital Signs Temp 98.4 F 10/26/23 09:00 Pulse 82 10/26/23 09:00 Resp 18 10/26/23 09:00 BP 92/55 L 10/26/23 09:00 Pulse Ox 88 L 10/26/23 09:00 O2 Del Method Mechanical Ventil ation 10/26/23 09:00 FiO2 50 10/26/23 09:00 Oxygen Flow Rate 5 10/25/23 20:00 BMI result Body Mass Index 28.9 Const: General: no acute distress and other (sedated on the vent) Eyes: Sclerae: sclerae normal EOM: EOMs intact bilaterally Neck: Neck: Yes no lymphadenopathy, Yes trachea midline and Yes supple Resp: Auscultation: crackles (bibasilar) Cardio: Rate: regular rate Rhythm: regular rhythm Heart sounds: no gallops, no murmurs and no rubs GI: Palpation (GI): Soft to palpation and Other GI palpation findings present ( Nontender) Auscultation: normal bowel sounds Extrem: General: Yes no pedal edema, No clubbing and No cyanosis Objective Data Labs 10/26/23 05:14 10/26/23 05:14 Labs: Laboratory Results - last 24 hr 10/25/23 10/25/23 10/25/23 20:05 20:08 21:32 WBC 8.1 RBC 5.90 H Hgb 16.7 H Hct 55.7 H MCV 94.4 MCH 28.3 MCHC 30.0 L RDW 16.6 H Plt Count 116 L D MPV 10.4 Immature Gran % (Auto) 0.4 Neut % (Auto) 64.2 Lymph % (Auto) 25.7 [place] % (Auto) 6.3 Eos % (Auto) 3.0 Baso % (Auto) 0.4 Lymph # (Auto) 2.1 [place] # (Auto) 0.5 Eos # (Auto) 0.2 Baso # (Auto) 0.0 Abs Immat Gran (auto) 0.03 Absolute Neuts (auto) 5.2 Absolute Nucleated RBC 0.000 Nucleated RBC % (auto) 0.0 Smear Tech's Comments PT 10.2 L INR 0.8 L D-Dimer High Sensitivty 201 VBG pH 7.27 L VBG pCO2 96 VBG pO2 47 VBG HCO3 44 H VBG O2 Saturation 80.0 VBG Base Excess 11.8 Sodium 141 Potassium 4.0 Chloride 90 L Carbon Dioxide 44 H* D Anion Gap 11 L BUN 12 Creatinine 0.71 Estim Creat Clear Calc 79.0 Estimated GFR > 60 Random Glucose 110 Lactic Acid 0.9 Calcium 9.6 D Phosphorus Magnesium Total Bilirubin 0.6 Direct Bilirubin 0.2 AST 19 ALT 20 Alkaline Phosphatase 104 Troponin I High Sens 2.9 B-Natriuretic Peptide 22 Total Protein 8.3 H Albumin 4.5 Urine Color Yellow Urine Appearance Clear Urine pH 7.0 Ur Specific [place] 1.010 Urine Protein Negative Urine Glucose (UA) Negative Urine Ketones Negative Urine Blood Negative Urine Nitrite Negative Ur Leukocyte Esterase Negative Urine Opiates Screen Not Detected Ur Buprenorphine Scrn Not Detected Ur Oxycodone Screen Not Detected Urine Methadone Screen Positive H Urine Fentanyl Screen Not Detected Ur Barbiturates Screen Not Detected Ur Phencyclidine Scrn Not Detected Ur Amphetamines Screen Not Detected U Benzodiazepines Scrn Not Detected Urine Cocaine Screen Not Detected U Marijuana (THC) Screen Not Detected Ethyl Alcohol < 10 Influenza Type A (PCR) NEGATIVE Influenza Type B (PCR) NEGATIVE RSV RNA Qual (PCR) NEGATIVE SARS-CoV-2 RNA (RT-PCR) NEGATIVE 10/26/23 10/26/23 10/26/23 00:40 05:13 05:14 WBC 12.5 H RBC 5.21 Hgb 14.7 Hct 47.3 H MCV 90.8 MCH 28.2 MCHC 31.1 RDW 15.9 Plt Count 112 L MPV 10.6 Immature Gran % (Auto) 0.5 H Neut % (Auto) 94.1 H Lymph % (Auto) 4.6 L [place] % (Auto) 0.6 L Eos % (Auto) 0.0 Baso % (Auto) 0.2 Lymph # (Auto) 0.6 L [place] # (Auto) 0.1 Eos # (Auto) 0.0 Baso # (Auto) 0.0 Abs Immat Gran (auto) 0.06 H Absolute Neuts (auto) 11.7 H Absolute Nucleated RBC 0.000 Nucleated RBC % (auto) 0.0 Smear Tech's Comments VERIFIED PT INR D-Dimer High Sensitivty VBG pH 7.31 L 7.38 VBG pCO2 74 58 VBG pO2 93 66 VBG HCO3 38 H 34 H VBG O2 Saturation 99.0 94.0 VBG Base Excess 8.4 7.5 Sodium 140 Potassium 3.4 Chloride 99 Carbon Dioxide 34 H Anion Gap 10 L BUN 12 Creatinine 0.73 Estim Creat Clear Calc 93.2 Estimated GFR > 60 Random Glucose 236 H Lactic Acid Calcium 8.9 D Phosphorus 3.0 Magnesium 2.5 Total Bilirubin 0.6 Direct Bilirubin AST 19 ALT 18 Alkaline Phosphatase 95 Troponin I High Sens B-Natriuretic Peptide Total Protein 7.0 Albumin 3.8 Urine Color Urine Appearance Urine pH Ur Specific [place] Urine Protein Urine Glucose (UA) Urine Ketones Urine Blood Urine Nitrite Ur Leukocyte Esterase Urine Opiates Screen Ur Buprenorphine Scrn Ur Oxycodone Screen Urine Methadone Screen Urine Fentanyl Screen Ur Barbiturates Screen Ur Phencyclidine Scrn Ur Amphetamines Screen U Benzodiazepines Scrn Urine Cocaine Screen U Marijuana (THC) Screen Ethyl Alcohol Influenza Type A (PCR) Influenza Type B (PCR) RSV RNA Qual (PCR) SARS-CoV-2 RNA (RT-PCR) Progress Note: A&P Assessment and plan (1) Pulmonary edema: Status: Acute (2) Acute hypoxic on chronic hypercapnic respiratory failure: Status: Acute (3) Aspiration pneumonia: Status: Acute (4) Hepatitis C: Status: Acute (5) Methadone dependence: Status: Acute (6) Alcoholic cirrhosis: Status: Acute (7) COPD (chronic obstructive pulmonary disease): Status: Acute Plan Assessment: 58-year-old lady with underlying hep C cirrhosis, COPD on 07/01 L, substance abuse on methadone admitted with acute hypoxic respiratory failure likely secondary to combination exacerbation of underlying congestive heart failure and aspiration pneumonia, now ventilatory support. Plan: Neuro: No acute issues. Cardiac: Acute on chronic congestive heart failure improving with diuresis. 2D echocardiogram is pending. Pulmonary: Acute hypoxic respiratory failure secondary to combination aspiration pneumonia versus pneumonitis acute on chronic congestive heart failure, improving. Continue to titrate off ventilatory support as tolerated. Underlying COPD supplemental oxygen dependent 4-6 L. Renal: No acute issues. Endo: No acute issues. GI: No acute issues. ID: Empiric coverage for aspiration pneumonia. Heme/Onc: No acute issues. Psych: No acute issues. Miscellaneous: No acute issues. Prophylaxis: Lovenox, famotidine Diet: Tube feeds Critical care time spent: 60 minutes Quality Stroke Does the patient have a stroke diagnosis?: No VTE Prior VTE?: No VTE Risk Level:: Medical - moderate - high VTE Device Contraindication: N/A - Device Ordered VTE Drug Contraindication: N/A - Med Ordered
--- NOTE | 2023-10-26 10:09 | MHC.CLN ---
PT IS INTUBATED AND SEDATED DISCUSSED AT ROUNDS WITH MD DIAZ TO START TODAY RECOMMEND JEVITY 1.0 AT MAX GOAL RATE 35ML/HR WITH 30ML PROSOURCE BID AND 240ML FREE WATER FLUSHES Q 8 HRS TO PROVIDE 1010KCALS (1549KCALS WITH SEDATION; 24KCALS/KG BASED ON CMW), 67G TOTAL PROTEIN (1.05G/KG), 1421ML TOTAL WATER FROM FORMULA AND FLUSHES (25ML/KG BASED ON IBW) MONITOR TOLERANCE AND LYTES SEE ALSO FULL CLINICAL NUTRITION ASSESSMENT
--- NOTE | 2023-10-26 10:17 | PC.NURSE ---
Per MD called to verify methadone dose Clinic is [facility] in [place] ([phone]). Clinic states that patient's home care organization picks up methadone bottles and administers to pt at home. [facility] able to verify dose of 85 mg. Contacted home care [facility] in [place] ([phone]). Left message for BRIANNA Thornton to call back to verify last done date and time.
--- NOTE | 2023-10-26 10:17 | MHC.CM.PN ---
PT IS CURRENTLY INTUBATED AND SEDATED IN ICU. INFORMATION GLEANED FROM CHART/RECENT ADMISSION. PT LIVES WITH PARTNER. USES WALKER/CANE NEEDED AND HAS HOME 02 4-6 LITERS VIA [place]. PT IS ACTIVE WITH [facility] FOR METHADONE DELIVERY AND INTERMEDIATE. RETURN REFERRAL SENT. +HCP ON FILE. PCP DR. MO AT [facility]:HOME WITH RESUMPTION OF [facility] SERVICES IS THE GOAL. CM WILL CONTINUE TO FOLLOW FOR DC PLAN .
[2023-10-26] MEDS: levoFLOXacin/D5W 250 MG/50 ML PIGGYBACK 50 MG IV (10:27)
--- NOTE | 2023-10-26 11:10 | HE.PHANOTE ---
METHADONE Receives from [facility] ([phone]). MIGEL Hernandez & Leonarod RN in facility confirmed last dose was 85mg on 10/24 at 10:15.
[2023-10-26] MEDS: Midazolam HCl/NS 50 MG/50 ML PLAST..BAG IVCONT (13:29)
[2023-10-26] MEDS: methADONE HCl 20 MG/2 ML ORAL.CONC 60 MG PO (14:15)
--- NOTE | 2023-10-26 15:08 | PC.NURSE ---
per , methadone 60 mg dose given via NGT 14:30 Tube feeds started Jevity @20ml/hr Versed gtt paused 15:05 per
[2023-10-26 18:06] LABS: Glucose, Whole Blood 109 mg/dL (60-115)
[2023-10-26 19:51] LABS: Anion Gap 9 (12-20); Blood Urea Nitrogen 13 mg/dL (9-16); Calcium 8.8 mg/dL (8.4-10.2); Carbon Dioxide 28 mmol/L (22-29); Chloride 105 mmol/L (96-108); Creatinine Clr Calc Pharmacy 102.2; Estimated Glomerular Filt Rate > 60; Glucose Random 120 mg/dL (60-115); Magnesium 2.4 mg/dL (1.6-2.6); Phosphorus 3.4 mg/dL (2.7-4.5); Potassium 4.1 mmol/L (3.3-5.1); Sodium 138 mmol/L (135-145)
[2023-10-26] MEDS: Enoxaparin Sodium 40 MG/0.4 ML SYRINGE SUBCUT (21:18)
--- NOTE | 2023-10-26 21:46 | PC.NURSE ---
LATE ENTRY FOR 10/24: pt extremely difficult to obtain IV access, multiple RN's attempted without success. able to obtain u/s guided line in left AC, labs obtained at 2004. at this time one pediatric blood culture was able to be obtained due to very little blood return. lab was called to verify if culture would be accepted. due to weight of patient and policy, culture was not accepted. Dr Sin notified - antibiotics were administered as not to delay care. after patient was intubated and stabilized requested that cultures attempted to be drawn despite already receiving antibiotics. at approx 2130 multiple attempts at obtaining blood cultures were made with no success. previous pedi culture was still available. lab called by another staff member who was also told they were not able to accept the pediatric blood culture. made aware. blood cultures finally able to be obtained at 225.
[2023-10-26 23:44] LABS: Glucose, Whole Blood 119 mg/dL (60-115)
[2023-10-27] VITALS (36 sets, daily range): BP systolic 85–126; BP diastolic 45–87; PULSE 40–89; RESP 12–27; TEMP 34–37.4; O2SAT 87–94; BMI 27.6
[2023-10-27] MEDS: Albuterol Sulfate (0.083%) 2.5 MG/3 ML VIAL.NEB INHALE (00:27)
[2023-10-27] MEDS: 0.9 % Sodium Chloride Flush 3 ML SYRINGE IVFLUSH ×3 (00:45→15:45)
--- NOTE | 2023-10-27 00:55 | PM.EVENT ---
Documented by User: Gretel Khan NP 10/27/23 00:56 Event Note Date of Service: 10/27/23 Event Note: Hypotension is related to sedation requirement, no evidence of severe sepsis Time Spent With Patient Time: Total time managing care of this patient today ____ minutes. Documented by User: Miki Johnson MD 10/27/23 11:57 Event Note Date of Service: 10/27/23
[2023-10-27] MEDS: Midazolam HCl/PF 2 MG/2 ML VIAL 4 MG IVPUSH (01:31)
[2023-10-27] MEDS: Cisatracurium Besylate 20 MG/10 ML VIAL IVPUSH (02:31)
[2023-10-27] MEDS: propofoL 1,000 MG/100 ML VIAL 20.41 MG IVCONT ×6 (02:54→21:21)
[2023-10-27] MEDS: fentaNYL citrate/NS 1,000 MCG/100 ML PLAST..BAG 20 MCG IVCONT ×5 (04:49→23:59)
[2023-10-27 05:12] LABS: Venous Blood Gas Refer to POC result
[2023-10-27 05:15] LABS: VBG Base Excess 3.8 mmol/L; VBG HCO3 29 mmol/L (22-26); VBG pCO2 47 mmHg; VBG pO2 80 mmHg
[2023-10-27 05:21] LABS: MANUAL DIFF FLAG NO
[2023-10-27 05:30] LABS: Basophils Percent Auto 0.2 % (0-2); Eosinophils Absolute Auto 0.1 X10*3/uL (0.0-0.4); Hematocrit 46.5 % (37.0-47.0); Hemoglobin 14.6 g/dl (12.0-16.0); Imm Gran Abs Auto 0.04 X10*3/uL (0.00-0.03); Imm Gran Pct Auto 0.4 % (0.0-0.4); Lymphocytes Absolute Auto 1.7 X10*3/uL (1.2-4.9); Mean Corpuscular HGB Conc 31.4 g/dl (31.0-35.0); Mean Corpuscular Hemoglobin 28.2 pg (27.0-33.0); Mean Corpuscular Volume 89.8 fL (80.0-98.0); Mean Platelet Volume 10.5 fL (9.4-12.3); Monocytes Absolute Auto 0.6 X10*3/uL (0.1-1.2); Monocytes Percent Auto 6.6 % (2-11); Neutrophils Absolute Auto 6.8 x10*3/uL (2.0-8.3); Neutrophils Percent Auto 73.8 % (45-73); Platelet Count 116 X10*3/uL (160-400); Red Blood Count 5.18 X10*6/uL (4.20-5.50); Red Cell Distribution Width 16.3 % (11.0-16.0); White Blood Count 9.2 X10*3/uL (4.8-10.8)
[2023-10-27 05:41] LABS: Albumin Level 3.6 g/dL (3.5-5.0); Anion Gap 11 (12-20); Blood Urea Nitrogen 16 mg/dL (9-16); Calcium 9.5 mg/dL (8.4-10.2); Carbon Dioxide 29 mmol/L (22-29); Chloride 106 mmol/L (96-108); Creatinine Clr Calc Pharmacy 93.2; Estimated Glomerular Filt Rate > 60; Glucose Random 115 mg/dL (60-115); Magnesium 2.4 mg/dL (1.6-2.6); Phosphorus 3.6 mg/dL (2.7-4.5); Potassium 3.6 mmol/L (3.3-5.1); Sodium 142 mmol/L (135-145)
[2023-10-27 06:14] LABS: Glucose, Whole Blood 109 mg/dL (60-115)
[2023-10-27] MEDS: Albuterol/Iprat 2.5/0.5MG 3 ML AMPUL.NEB INHALE ×3 (07:19→19:42)
[2023-10-27] MEDS: Chlorhexidine Gluc Oral Rinse 15 ML MOUTHWASH BUCCAL ×3 (08:00→21:19)
[2023-10-27] MEDS: acetaZOLAMIDE sodium 500 MG VIAL 250 MG IVPUSH ×2 (08:00→21:19)
[2023-10-27] MEDS: Famotidine/PF 20 MG/2 ML VIAL IVPUSH (08:00)
[2023-10-27] MEDS: Potassium Chloride Packet 20 MEQ PACKET 40 MEQ OG-TUBE (08:01)
[2023-10-27] MEDS: methADONE HCl 20 MG/2 ML ORAL.CONC 60 MG PO (08:08)
[2023-10-27] MEDS: levoFLOXacin/D5W 500 MG/100 ML PIGGYBACK 100 MG IV (08:08)
[2023-10-27] MEDS: levoFLOXacin/D5W 250 MG/50 ML PIGGYBACK 50 MG IV (09:42)
--- NOTE | 2023-10-27 10:11 | MHC.CLN ---
F/U PT REMAINS INTUBATED AND SEDATED DISCUSSED AT ROUNDS WITH TF STARTED YESTERDAY HOWEVER BRIEFLY ON HOLD PER NSG TF TO BE RE-STARTED TODAY PER MD RECOMMEND JEVITY 1.0 AT MAX GOAL RATE 35ML/HR WITH 30ML PROSOURCE BID AND 240ML FREE WATER FLUSHES Q 8 HRS TO PROVIDE 1010KCALS (1549KCALS WITH SEDATION; 24KCALS/KG BASED ON CMW), 67G TOTAL PROTEIN (1.05G/KG), 1421ML TOTAL WATER FROM FORMULA AND FLUSHES (25ML/KG BASED ON IBW) MONITOR TOLERANCE AND LYTES
--- NOTE | 2023-10-27 11:57 | PM.CCPN ---
Subjective Subjective Date of Service: 10/27/23 Interval History: 57-year-old lady with underlying COPD on home O2 4-6 L, hepatitis-C, liver cirrhosis, substance abuse, methadone dependent, hypothyroidism admitted on 10/25/2023 with likely secondary to pulmonary aspiration with possible aspiration pneumonia and also underlying cardiomyopathy. Patient treated with empiric diuresis and antibiotics with improvement in her FiO2. No events overnight. FiO2 requirements remain at 50%, still with significant in-line secretions. Critical Care Time (minutes): 60 Physical Exam Vital Signs: Vital Signs: Last Vital Signs Temp 99.1 F 10/27/23 11:00 Pulse 76 10/27/23 11:00 Resp 18 10/27/23 11:00 BP 103/67 10/27/23 11:00 Pulse Ox 91 L 10/27/23 11:00 O2 Del Method Mechanical Ventil ation 10/27/23 11:00 FiO2 50 10/27/23 11:19 Oxygen Flow Rate 5 10/25/23 20:00 BMI result Body Mass Index 27.6 Const: General: no acute distress and other (Sedated on the vent) Eyes: Sclerae: sclerae normal EOM: EOMs intact bilaterally Neck: Neck: Yes no lymphadenopathy, Yes trachea midline and Yes supple Resp: Auscultation: crackles (Bibasilar) Cardio: Rate: regular rate Rhythm: regular rhythm Heart sounds: no gallops, no murmurs and no rubs GI: Palpation (GI): Soft to palpation and Other GI palpation findings present ( Nontender) Auscultation: normal bowel sounds Extrem: General: Yes no pedal edema, No clubbing and No cyanosis Objective Data Labs 10/27/23 05:13 10/27/23 05:04 Labs: Laboratory Results - last 24 hr 10/26/23 10/26/23 10/26/23 18:02 19:19 23:38 WBC RBC Hgb Hct MCV MCH MCHC RDW Plt Count MPV Immature Gran % (Auto) Neut % (Auto) Lymph % (Auto) [place] % (Auto) Eos % (Auto) Baso % (Auto) Lymph # (Auto) [place] # (Auto) Eos # (Auto) Baso # (Auto) Abs Immat Gran (auto) Absolute Neuts (auto) Absolute Nucleated RBC Nucleated RBC % (auto) VBG pH VBG pCO2 VBG pO2 VBG HCO3 VBG O2 Saturation VBG Base Excess Sodium 138 Potassium 4.1 D Chloride 105 Carbon Dioxide 28 Anion Gap 9 L BUN 13 Creatinine 0.63 Estim Creat Clear Calc 102.2 Estimated GFR > 60 POC Glucose 109 119 H Random Glucose 120 H Calcium 8.8 Phosphorus 3.4 Magnesium 2.4 Albumin 10/27/23 10/27/23 10/27/23 05:04 05:07 05:13 WBC 9.2 RBC 5.18 Hgb 14.6 Hct 46.5 MCV 89.8 MCH 28.2 MCHC 31.4 RDW 16.3 H Plt Count 116 L MPV 10.5 Immature Gran % (Auto) 0.4 Neut % (Auto) 73.8 H Lymph % (Auto) 18.0 L [place] % (Auto) 6.6 Eos % (Auto) 1.0 Baso % (Auto) 0.2 Lymph # (Auto) 1.7 [place] # (Auto) 0.6 Eos # (Auto) 0.1 Baso # (Auto) 0.0 Abs Immat Gran (auto) 0.04 H Absolute Neuts (auto) 6.8 Absolute Nucleated RBC 0.000 Nucleated RBC % (auto) 0.0 VBG pH 7.40 VBG pCO2 47 VBG pO2 80 VBG HCO3 29 H VBG O2 Saturation 97.0 VBG Base Excess 3.8 Sodium 142 Potassium 3.6 Chloride 106 Carbon Dioxide 29 Anion Gap 11 L BUN 16 Creatinine 0.69 Estim Creat Clear Calc 93.2 Estimated GFR > 60 POC Glucose Random Glucose 115 Calcium 9.5 D Phosphorus 3.6 Magnesium 2.4 Albumin 3.6 10/27/23 06:05 WBC RBC Hgb Hct MCV MCH MCHC RDW Plt Count MPV Immature Gran % (Auto) Neut % (Auto) Lymph % (Auto) [place] % (Auto) Eos % (Auto) Baso % (Auto) Lymph # (Auto) [place] # (Auto) Eos # (Auto) Baso # (Auto) Abs Immat Gran (auto) Absolute Neuts (auto) Absolute Nucleated RBC Nucleated RBC % (auto) VBG pH VBG pCO2 VBG pO2 VBG HCO3 VBG O2 Saturation VBG Base Excess Sodium Potassium Chloride Carbon Dioxide Anion Gap BUN Creatinine Estim Creat Clear Calc Estimated GFR POC Glucose 109 Random Glucose Calcium Phosphorus Magnesium Albumin Microbiology Microbiology Results: Microbiology 10/25/23 22:59 Blood - Venous Blood Culture - Preliminary No growth after 24 hours. 10/25/23 23:01 Blood - Venous Blood Culture - Preliminary No growth after 24 hours. Progress Note: A&P Assessment and plan (1) COPD (chronic obstructive pulmonary disease): Status: Acute (2) Methadone dependence: Status: Acute (3) Hepatitis C: Status: Acute (4) Aspiration pneumonia: Status: Acute (5) Alcoholic cirrhosis: Status: Acute (6) Pulmonary edema: Status: Acute (7) Acute hypoxic on chronic hypercapnic respiratory failure: Status: Acute Plan Assessment: 58-year-old lady with underlying hep C cirrhosis, COPD on 07/01 L, substance abuse on methadone admitted with acute hypoxic respiratory failure likely secondary to combination exacerbation of underlying congestive heart failure and aspiration pneumonia, now ventilatory support. Plan: Neuro: No acute issues. Cardiac: Acute on chronic congestive heart failure improving with diuresis. 2D echocardiogram is wall motion abnormalities and diastolic dysfunction. Pulmonary: Acute hypoxic respiratory failure secondary to combination aspiration pneumonia versus pneumonitis acute on chronic congestive heart failure, improving. Continue to titrate off ventilatory support as tolerated. Underlying COPD supplemental oxygen dependent 4-6 L. Renal: No acute issues. Endo: No acute issues. GI: No acute issues. ID: Empiric coverage for aspiration pneumonia. Heme/Onc: No acute issues. Psych: No acute issues. Miscellaneous: No acute issues. Prophylaxis: Lovenox, famotidine Diet: Tube feeds Critical care time spent: 60 minutes Quality Stroke Does the patient have a stroke diagnosis?: No VTE Prior VTE?: No VTE Risk Level:: Medical - moderate - high VTE Device Contraindication: N/A - Device Ordered VTE Drug Contraindication: N/A - Med Ordered
[2023-10-27 12:06] LABS: Glucose, Whole Blood 106 mg/dL (60-115)
--- NOTE | 2023-10-27 15:36 | MHC.CM.PN ---
Pt continues care in ICU: vented but showing signs of respiratory improvement. Possible weaning plans for 8/ - D/C plan : return to home w/existing family/[employer] and [facility] support. CM to follow for changes in plan
[2023-10-27 18:20] LABS: Glucose, Whole Blood 109 mg/dL (60-115)
[2023-10-27] MEDS: Enoxaparin Sodium 40 MG/0.4 ML SYRINGE SUBCUT (21:19)
[2023-10-28] VITALS (32 sets, daily range): BP systolic 92–151; BP diastolic 55–95; PULSE 66–94; RESP 11–22; TEMP 34–37.6; O2SAT 88–93; BMI 27.3
[2023-10-28] MEDS: 0.9 % Sodium Chloride Flush 3 ML SYRINGE IVFLUSH ×4 (00:02→21:35)
[2023-10-28 00:07] LABS: Glucose, Whole Blood 104 mg/dL (60-115)
[2023-10-28] MEDS: propofoL 1,000 MG/100 ML VIAL 20.41 MG IVCONT ×3 (00:07→08:05)
[2023-10-28] MEDS: fentaNYL citrate/NS 1,000 MCG/100 ML PLAST..BAG 20 MCG IVCONT (04:49)
[2023-10-28 04:52] LABS: MANUAL DIFF FLAG NO
[2023-10-28 04:53] LABS: VBG Base Excess 1.2 mmol/L; VBG HCO3 27 mmol/L (22-26); VBG pCO2 47 mmHg; VBG pH 7.36 (7.32-7.43); VBG pO2 61 mmHg
[2023-10-28 04:58] LABS: Basophils Percent Auto 0.5 % (0-2); Eosinophils Absolute Auto 0.3 X10*3/uL (0.0-0.4); Hematocrit 45.3 % (37.0-47.0); Hemoglobin 14.1 g/dl (12.0-16.0); Imm Gran Abs Auto 0.02 X10*3/uL (0.00-0.03); Imm Gran Pct Auto 0.3 % (0.0-0.4); Lymphocytes Absolute Auto 1.6 X10*3/uL (1.2-4.9); Mean Corpuscular HGB Conc 31.1 g/dl (31.0-35.0); Mean Corpuscular Hemoglobin 28.2 pg (27.0-33.0); Mean Corpuscular Volume 90.6 fL (80.0-98.0); Monocytes Absolute Auto 0.4 X10*3/uL (0.1-1.2); Monocytes Percent Auto 7.1 % (2-11); Neutrophils Absolute Auto 3.9 x10*3/uL (2.0-8.3); Neutrophils Percent Auto 63.1 % (45-73); Platelet Count 124 X10*3/uL (160-400); White Blood Count 6.2 X10*3/uL (4.8-10.8)
[2023-10-28 04:59] LABS: Venous Blood Gas Refer to POC result
[2023-10-28 05:10] LABS: Alanine Aminotransferase 15 U/L (0-31); Albumin Level 3.3 g/dL (3.5-5.0); Alkaline Phosphatase 78 U/L (39-117); Anion Gap 8 (12-20); Aspartate Amino Transferase 14 U/L (5-31); Bilirubin Total 0.3 mg/dL (0.0-1.0); Blood Urea Nitrogen 18 mg/dL (9-16); Calcium 8.8 mg/dL (8.4-10.2); Carbon Dioxide 27 mmol/L (22-29); Chloride 108 mmol/L (96-108); Estimated Glomerular Filt Rate > 60; Glucose Random 120 mg/dL (60-115); Magnesium 2.2 mg/dL (1.6-2.6); Phosphorus 4.1 mg/dL (2.7-4.5); Potassium 3.7 mmol/L (3.3-5.1); Sodium 139 mmol/L (135-145); Total Protein 6.4 g/dL (6.5-8.0)
[2023-10-28] MEDS: Albuterol/Iprat 2.5/0.5MG 3 ML AMPUL.NEB INHALE ×3 (07:35→19:42)
[2023-10-28] MEDS: acetaZOLAMIDE sodium 500 MG VIAL 250 MG IVPUSH ×2 (08:08→21:34)
[2023-10-28] MEDS: Famotidine/PF 20 MG/2 ML VIAL IVPUSH (08:17)
[2023-10-28] MEDS: methADONE HCl 20 MG/2 ML ORAL.CONC 60 MG PO (08:21)
[2023-10-28] MEDS: Chlorhexidine Gluc Oral Rinse 15 ML MOUTHWASH BUCCAL (08:26)
[2023-10-28] MEDS: levoFLOXacin/D5W 500 MG/100 ML PIGGYBACK 100 MG IV (09:28)
[2023-10-28] MEDS: levoFLOXacin/D5W 250 MG/50 ML PIGGYBACK 50 MG IV (09:38)
--- NOTE | 2023-10-28 10:17 | P.PNCC_ITS ---
Subjective Subjective Date of Service: 10/28/23 Interval History: 57-year-old lady with underlying COPD on home O2 4-6 L, hepatitis-C, liver cirrhosis, substance abuse, methadone dependent, hypothyroidism admitted on 10/25/2023 with likely secondary to pulmonary aspiration with possible aspiration pneumonia and also underlying cardiomyopathy. Patient treated with empiric diuresis and antibiotics with improvement in her FiO2. No events overnight. Critical Care Time (minutes): 60 Physical Exam 2 Vital Signs: Vital Signs: Last Vital Signs Temp 97.7 F 10/28/23 09:00 Pulse 67 10/28/23 09:00 Resp 18 10/28/23 09:00 BP 104/62 10/28/23 09:00 Pulse Ox 88 L 10/28/23 09:00 O2 Del Method Mechanical Ventil ation 10/28/23 09:00 FiO2 50 10/28/23 09:00 Oxygen Flow Rate 5 10/25/23 20:00 BMI result Body Mass Index 27.3 Const: General: no acute distress and other (Sedated on the vent) Eyes: Sclerae: sclerae normal EOM: EOMs intact bilaterally Neck: Neck: Yes no lymphadenopathy, Yes trachea midline and Yes supple Resp: Auscultation: crackles (Mild bilateral) Cardio: Rate: regular rate Rhythm: regular rhythm Heart sounds: no gallops, no murmurs and no rubs GI: Palpation (GI): Soft to palpation and Other GI palpation findings present ( Nontender) Auscultation: normal bowel sounds Extrem: General: Yes no pedal edema, No clubbing and No cyanosis Objective Data Labs 10/28/23 04:43 10/28/23 04:43 Labs: Laboratory Results - last 24 hr 10/27/23 10/27/23 10/27/23 12:03 18:12 23:59 WBC RBC Hgb Hct MCV MCH MCHC RDW Plt Count MPV Immature Gran % (Auto) Neut % (Auto) Lymph % (Auto) [place] % (Auto) Eos % (Auto) Baso % (Auto) Lymph # (Auto) [place] # (Auto) Eos # (Auto) Baso # (Auto) Abs Immat Gran (auto) Absolute Neuts (auto) Absolute Nucleated RBC Nucleated RBC % (auto) VBG pH VBG pCO2 VBG pO2 VBG HCO3 VBG O2 Saturation VBG Base Excess Sodium Potassium Chloride Carbon Dioxide Anion Gap BUN Creatinine Estim Creat Clear Calc Estimated GFR POC Glucose 106 109 104 Random Glucose Calcium Phosphorus Magnesium Total Bilirubin AST ALT Alkaline Phosphatase Total Protein Albumin 10/28/23 10/28/23 04:42 04:43 WBC 6.2 RBC 5.00 Hgb 14.1 Hct 45.3 MCV 90.6 MCH 28.2 MCHC 31.1 RDW 17.0 H Plt Count 124 L MPV TNP Immature Gran % (Auto) 0.3 Neut % (Auto) 63.1 Lymph % (Auto) 25.0 [place] % (Auto) 7.1 Eos % (Auto) 4.0 Baso % (Auto) 0.5 Lymph # (Auto) 1.6 [place] # (Auto) 0.4 Eos # (Auto) 0.3 Baso # (Auto) 0.0 Abs Immat Gran (auto) 0.02 Absolute Neuts (auto) 3.9 Absolute Nucleated RBC 0.000 Nucleated RBC % (auto) 0.0 VBG pH 7.36 VBG pCO2 47 VBG pO2 61 VBG HCO3 27 H VBG O2 Saturation 90.0 VBG Base Excess 1.2 Sodium 139 Potassium 3.7 Chloride 108 Carbon Dioxide 27 Anion Gap 8 L BUN 18 H Creatinine 0.72 Estim Creat Clear Calc 87.0 Estimated GFR > 60 POC Glucose Random Glucose 120 H Calcium 8.8 D Phosphorus 4.1 Magnesium 2.2 Total Bilirubin 0.3 AST 14 ALT 15 Alkaline Phosphatase 78 Total Protein 6.4 L Albumin 3.3 L Microbiology Microbiology Results: Microbiology 10/25/23 22:59 Blood - Venous Blood Culture - Preliminary No growth after 48 hours. 10/25/23 23:01 Blood - Venous Blood Culture - Preliminary No growth after 48 hours. Progress Note: A&P Assessment and plan (1) COPD (chronic obstructive pulmonary disease): Status: Acute (2) Alcoholic cirrhosis: Status: Acute (3) Methadone dependence: Status: Acute (4) Hepatitis C: Status: Acute (5) Aspiration pneumonia: Status: Acute (6) Pulmonary edema: Status: Acute (7) Acute hypoxic on chronic hypercapnic respiratory failure: Status: Acute Plan Assessment: 58-year-old lady with underlying hep C cirrhosis, COPD on 07/01 L, substance abuse on methadone admitted with acute hypoxic respiratory failure likely secondary to combination exacerbation of underlying congestive heart failure and aspiration pneumonia, now ventilatory support. Plan: Neuro: No acute issues. Cardiac: Acute on chronic congestive heart failure improving with diuresis. 2D echocardiogram with wall motion abnormalities and diastolic dysfunction. Pulmonary: Acute hypoxic respiratory failure secondary to combination aspiration pneumonia versus pneumonitis acute on chronic congestive heart failure, improving. Continue to titrate off ventilatory support as tolerated. Underlying COPD supplemental oxygen dependent 4-6 L. Renal: No acute issues. Endo: No acute issues. GI: No acute issues. ID: Empiric coverage for aspiration pneumonia. Heme/Onc: No acute issues. Psych: No acute issues. Miscellaneous: No acute issues. Prophylaxis: Lovenox, famotidine Diet: Tube feeds Critical care time spent: 60 minutes Quality Stroke Does the patient have a stroke diagnosis?: No VTE Prior VTE?: No VTE Risk Level:: Medical - moderate - high VTE Device Contraindication: N/A - Device Ordered VTE Drug Contraindication: N/A - Med Ordered
--- NOTE | 2023-10-28 10:45 | MHC.CLN ---
F/U PT REMAINS INTUBATED AND SEDATED DISCUSSED AT ROUNDS WITH PT RECEIVING JEVITY 1.0 AT MAX GOAL RATE 35ML/HR WITH 30ML PROSOURCE BID AND 240ML FREE WATER FLUSHES Q 8 HRS PROVIDES 1010KCALS (1549KCALS WITH SEDATION; 24KCALS/KG BASED ON CMW), 67G TOTAL PROTEIN (1.05G/KG), 1421ML TOTAL WATER FROM FORMULA AND FLUSHES (25ML/KG BASED ON IBW) MONITOR TOLERANCE AND LYTES
[2023-10-28] MEDS: propofoL 1,000 MG/100 ML VIAL 4.08 MG IVCONT (11:27)
[2023-10-28 11:35] LABS: Glucose, Whole Blood 110 mg/dL (60-115)
--- NOTE | 2023-10-28 14:31 | MHC.CM.PN ---
Pt extubated today and is on high flow O2. Pt originally from home w/[facility] and [employer] support. Unknown if pt will require placement - CM to assess once pt is more stable. Family can transport to home.
[2023-10-28] MEDS: Ketorolac Tromethamine 15 MG/ML VIAL IVPUSH (16:15)
[2023-10-28 17:57] LABS: Glucose, Whole Blood 99 mg/dL (60-115)
[2023-10-28] MEDS: Enoxaparin Sodium 40 MG/0.4 ML SYRINGE SUBCUT (21:34)
[2023-10-29] VITALS (13 sets, daily range): BP systolic 121–166; BP diastolic 84–105; PULSE 86–100; RESP 16–20; TEMP 36.3–37.1; O2SAT 92–96; BMI 26.5
[2023-10-29 01:09] LABS: Glucose, Whole Blood 113 mg/dL (60-115)
[2023-10-29 06:11] LABS: Glucose, Whole Blood 93 mg/dL (60-115)
[2023-10-29 06:59] LABS: VBG Base Excess -2.9 mmol/L; VBG HCO3 18 mmol/L (22-26); VBG pCO2 25 mmHg; VBG pH 7.47 (7.32-7.43); VBG pO2 97 mmHg
[2023-10-29 07:01] LABS: Venous Blood Gas Refer to POC result
--- NOTE | 2023-10-29 07:35 | HO.PM.IMPN ---
Subjective Subjective Date of Service: 10/29/23 Interval History: Seen in follow up for aspiration pneumonia, CHF exacerbation, acute on chronic hypoxemic respiratory failure Interval history: ICU step-down overnight. Denies shortness of breath, orthopnea, wheezing, chest pain. Has been weaned to high-flow s/p extubation on 10/27. No complaints Review of Systems Review of Systems: Yes all other systems are reviewed and are negative Physical Exam Vital Signs: Vital Signs: Last Vital Signs Temp 98.5 F 10/29/23 07:15 Pulse 89 10/29/23 07:15 Resp 17 10/29/23 07:15 BP 146/89 H 10/29/23 07:15 Pulse Ox 92 10/29/23 07:15 O2 Del Method High Flow Nasal C annula 10/29/23 07:15 O2 Flow Rate 35 10/29/23 07:15 FiO2 72 10/29/23 07:15 Oxygen Flow Rate 5 10/25/23 20:00 BMI result Body Mass Index 26.5 Constitutional - Awake and Alert, No apparent distress Eyes - PERRLA, EOMI Cardiovascular - S1S2, RRR, No edema Respiratory - Normal lung expansion, Normal respiratory effort, No respiratory distress, bilateral crackles Gastrointestinal - NT / ND; +BS; No rebound or guarding Extremities - no calf tenderness bilaterally, no swelling Skin - Warm/Dry Neurological - Alert & oriented x3 Psychological - Appropriate affect Objective Data Active Medications Acetazolamide (Acetazolamide Sodium 500 Mg Vial) 250 mg IVPUSH BID [facility] Last Admin: 10/28/23 21:34 Dose: 250 mg Documented By: BERNY Albuterol Sulfate (Albuterol Sulfate (0.083%) 2.5 Mg/3 Ml Vial.Neb) 2.5 mg INHALE Q4H PRN PRN Reason: Shortness of Breath/Wheezing Last Admin: 10/27/23 00:27 Dose: 2.5 mg Documented By: LYNNE Albuterol/Ipratropium (Albuterol/Iprat 2.5/0.5mg 3 Ml Ampul.Neb) 3 ml INHALE RQ6H WHILE AWAKE [facility] Last Admin: 10/28/23 19:42 Dose: 3 ml Documented By: MARKUS Enoxaparin Sodium (Enoxaparin Sodium 40 Mg/0.4 Ml Syringe) 40 mg SUBCUT Q24H [facility] Last Admin: 10/28/23 21:34 Dose: 40 mg Documented By: BERNY Levofloxacin (Levaquin) 500 mg in 100 mls @ 100 mls/hr IV Q24H [facility] Last Infusion: 10/28/23 10:35 Dose: Infused Documented By: BAUTISTA Levofloxacin (Levaquin) 250 mg in 50 mls @ 50 mls/hr IV Q24H [facility] Last Infusion: 10/28/23 11:48 Dose: Infused Documented By: KATHERINE Methadone HCl (Methadone Hcl 20 Mg/2 Ml Oral.Conc) 60 mg PO DAILY [facility] Last Admin: 10/28/23 08:21 Dose: 60 mg Documented By: BAUTISTA Sodium Chloride (0.9 % Sodium Chloride Flush 3 Ml Syringe) 3 ml IVFLUSH QSHIFT [facility] Last Admin: 10/28/23 21:35 Dose: 3 ml Documented By: BERNY Labs 10/29/23 09:19 10/29/23 09:19 Labs: Laboratory Results - last 24 hr 10/28/23 10/28/23 10/29/23 11:31 17:49 00:59 VBG pH VBG pCO2 VBG pO2 VBG HCO3 VBG O2 Saturation VBG Base Excess POC Glucose 110 99 113 10/29/23 10/29/23 06:05 06:51 VBG pH 7.47 H VBG pCO2 25 VBG pO2 97 VBG HCO3 18 L VBG O2 Saturation 99.0 VBG Base Excess -2.9 POC Glucose 93 Assessment and Plan (1) Aspiration pneumonia: Status: Acute (2) Pulmonary edema: Status: Acute (3) Acute hypoxic on chronic hypercapnic respiratory failure: Status: Acute Plan 57-year-old croatian speaking female with a past medical history of COPD on home 02 at 4-6L,? hepatitis C, cirrhosis,? hypertension, hypothyroidism, hyperlipidemia, Substance abuse (on methadone), and tobacco use admitted for acute on chronic hypoxemic respiratory failure secondary to aspiration pneumonia and CHF exacerbation. Patient was initially admitted to ICU on 10/24 requiring emergent intubation due to severe respiratory distress and was successfully extubated on 10/27 on step-down to med/tele on 10/28. #Acute on chronic hypoxemic respiratory failure secondary to aspiration pneumonia and CHF exacerbation -continue high-flow O2, wean as tolerated. Baseline 4-6 L via nasal cannula -VBG this morning reassuring with pH 7.47, pCO2 25, bicarb 18 -DC diamox given bicarb 18. Initiate lasix 20mg IV daily, -17L this admission -continue Levaquin for empiric coverage of aspiration pneumonia -DuoNebs -steroids not indicated at this time -low-sodium diet -monitor I&O -weight is -last echo 10/25 shows normal LV systolic function with EF 55-60%. Normal LV size, thickness. Indeterminate filling pressures with akinetic basal inferoseptal segment -follow BMP # COPD -no acute exacerbation -resume home inhalers, albuterol p.r.n. # hypertension -resume amlodipine, olmesartan # hypothyroidism -resume levothyroxine # opiate use disorder -continue methadone, dose reduced to 60 mg in the ICU # tobacco abuse -smoking cessation # GERD -PPI #hep c cirrhosis -compensated -outpt follow up DVT prophylaxis-Lovenox Full code Patient requires ongoing inpatient stay due to acute on chronic hypoxemic respiratory failure still requiring high-flow secondary to aspiration pneumonia and CHF exacerbation and will require ongoing IV diuresis and IV antibiotics as well as close monitoring of intake and output and renal function/electrolyte levels Quality Stroke Does the patient have a stroke diagnosis?: No VTE Prior VTE?: No VTE Risk Level:: Medical - moderate - high VTE Device Contraindication: N/A - Device Ordered VTE Drug Contraindication: N/A - Med Ordered
[2023-10-29] MEDS: Albuterol/Iprat 2.5/0.5MG 3 ML AMPUL.NEB INHALE ×3 (07:36→18:40)
[2023-10-29] MEDS: methADONE HCl 20 MG/2 ML ORAL.CONC 60 MG PO (09:01)
[2023-10-29] MEDS: levoFLOXacin/D5W 500 MG/100 ML PIGGYBACK 100 MG IV (09:04)
[2023-10-29] MEDS: acetaZOLAMIDE sodium 500 MG VIAL 250 MG IVPUSH (09:04)
[2023-10-29] MEDS: levoFLOXacin/D5W 250 MG/50 ML PIGGYBACK 50 MG IV (09:12)
[2023-10-29] MEDS: 0.9 % Sodium Chloride Flush 3 ML SYRINGE IVFLUSH ×4 (09:12→22:55)
[2023-10-29 10:01] LABS: Anion Gap 12 (12-20); Blood Urea Nitrogen 14 mg/dL (9-16); Calcium 9.2 mg/dL (8.4-10.2); Carbon Dioxide 25 mmol/L (22-29); Chloride 108 mmol/L (96-108); Creatinine Clr Calc Pharmacy 88.3; Estimated Glomerular Filt Rate > 60; Glucose Random 147 mg/dL (60-115); Magnesium 2.2 mg/dL (1.6-2.6); Phosphorus 3.8 mg/dL (2.7-4.5); Potassium 3.3 mmol/L (3.3-5.1); Sodium 142 mmol/L (135-145)
[2023-10-29 10:10] LABS: Basophils Percent Auto 0.3 % (0-2); Eosinophils Absolute Auto 0.3 X10*3/uL (0.0-0.4); Eosinophils Percent Auto 4.3 % (0-4); Hematocrit 52.4 % (37.0-47.0); Hemoglobin 16.4 g/dl (12.0-16.0); Imm Gran Abs Auto 0.03 X10*3/uL (0.00-0.03); Imm Gran Pct Auto 0.4 % (0.0-0.4); Lymphocytes Absolute Auto 1.2 X10*3/uL (1.2-4.9); Lymphocytes Percent Auto 17.1 % (20-40); Mean Corpuscular HGB Conc 31.3 g/dl (31.0-35.0); Mean Corpuscular Hemoglobin 27.7 pg (27.0-33.0); Mean Corpuscular Volume 88.4 fL (80.0-98.0); Mean Platelet Volume 10.9 fL (9.4-12.3); Monocytes Absolute Auto 0.4 X10*3/uL (0.1-1.2); Monocytes Percent Auto 6.1 % (2-11); Neutrophils Absolute Auto 5.2 x10*3/uL (2.0-8.3); Neutrophils Percent Auto 71.8 % (45-73); Platelet Count 126 X10*3/uL (160-400); Red Blood Count 5.93 X10*6/uL (4.20-5.50); Red Cell Distribution Width 16.8 % (11.0-16.0); White Blood Count 7.2 X10*3/uL (4.8-10.8)
[2023-10-29 11:55] LABS: Glucose, Whole Blood 157 mg/dL (60-115)
[2023-10-29] MEDS: Docusate Sodium 100 MG CAPSULE PO ×2 (13:29→22:49)
[2023-10-29] MEDS: amLODIPine Besylate 5 MG TABLET PO (13:29)
[2023-10-29] MEDS: Furosemide 20 MG/2 ML VIAL IVPUSH (13:30)
[2023-10-29 16:23] LABS: Glucose, Whole Blood 128 mg/dL (60-115)
[2023-10-29 22:16] LABS: Glucose, Whole Blood 101 mg/dL (60-115)
[2023-10-29] MEDS: Simethicone 80 MG TAB.CHEW 160 MG PO (22:49)
[2023-10-29] MEDS: Enoxaparin Sodium 40 MG/0.4 ML SYRINGE SUBCUT (22:49)
[2023-10-29] MEDS: Perphenazine 4 MG TABLET PO (22:49)
[2023-10-29] MEDS: Atorvastatin Calcium 80 MG TABLET PO (22:49)
[2023-10-30] VITALS (13 sets, daily range): BP systolic 112–148; BP diastolic 69–99; PULSE 70–109; RESP 18–20; TEMP 36.1–36.9; O2SAT 88–96; BMI 27.3
[2023-10-30] MEDS: hydrOXYzine HCL 50 MG TABLET PO (00:12)
[2023-10-30 06:32] LABS: Venous Blood Gas Refer to POC result
[2023-10-30 06:35] LABS: VBG Base Excess 0.1 mmol/L; VBG HCO3 24 mmol/L (22-26); VBG pCO2 39 mmHg; VBG pO2 79 mmHg
[2023-10-30] MEDS: Levothyroxine Sodium 200 MCG TABLET PO (06:52)
[2023-10-30] MEDS: Levothyroxine Sodium 25 MCG TABLET 12.5 MCG PO (06:52)
[2023-10-30 07:04] LABS: Blood Urea Nitrogen 11 mg/dL (9-16); Calcium 9.9 mg/dL (8.4-10.2); Creatinine Clr Calc Pharmacy 89.6; Estimated Glomerular Filt Rate > 60; Glucose Random 115 mg/dL (60-115)
[2023-10-30 07:21] LABS: Anion Gap 15 (12-20); Carbon Dioxide 22 mmol/L (22-29); Chloride 106 mmol/L (96-108); Potassium 4.2 mmol/L (3.3-5.1); Sodium 139 mmol/L (135-145)
[2023-10-30 07:26] LABS: Hematocrit 52.4 % (37.0-47.0); Red Cell Distribution Width 16.9 % (11.0-16.0); SCAN SMEAR FLAG 1
--- NOTE | 2023-10-30 07:27 | HO.PM.IMPN ---
Subjective Subjective Date of Service: 10/30/23 Physical Exam Vital Signs: Vital Signs: Last Vital Signs Temp 98.4 F 10/30/23 04:00 Pulse 80 10/30/23 04:00 Resp 20 10/30/23 04:33 BP 148/88 H 10/30/23 04:00 Pulse Ox 94 10/30/23 04:00 O2 Del Method High Flow Nasal C annula 10/30/23 04:00 O2 Flow Rate 40 10/30/23 04:00 FiO2 70 10/30/23 04:00 Oxygen Flow Rate 5 10/25/23 20:00 BMI result Body Mass Index 26.5 Objective Data Active Medications Albuterol Sulfate (Albuterol Sulfate (0.083%) 2.5 Mg/3 Ml Vial.Neb) 2.5 mg INHALE Q4H PRN PRN Reason: Shortness of Breath/Wheezing Last Admin: 10/27/23 00:27 Dose: 2.5 mg Documented By: LYNNE Albuterol Sulfate (Albuterol Sulfate 90 Mcg 8 Gm Inhaler) 2 puff INHALE RQ6H PRN PRN Reason: wheezing Albuterol/Ipratropium (Albuterol/Iprat 2.5/0.5mg 3 Ml Ampul.Neb) 3 ml INHALE RQ6H WHILE AWAKE [facility] Last Admin: 10/29/23 18:40 Dose: 3 ml Documented By: KARLEE Amlodipine Besylate (Amlodipine Besylate 5 Mg Tablet) 5 mg PO DAILY [facility]; Protocol Last Admin: 10/29/23 13:29 Dose: 5 mg Documented By: MOR Atorvastatin Calcium (Atorvastatin Calcium 80 Mg Tablet) 80 mg PO BEDTIME [facility] Last Admin: 10/29/23 22:49 Dose: 80 mg Documented By: JAYCEE Docusate Sodium (Docusate Sodium 100 Mg Capsule) 100 mg PO BID [facility] Last Admin: 10/29/23 22:49 Dose: 100 mg Documented By: JAYCEE Enoxaparin Sodium (Enoxaparin Sodium 40 Mg/0.4 Ml Syringe) 40 mg SUBCUT Q24H [facility] Last Admin: 10/29/23 22:49 Dose: 40 mg Documented By: JAYCEE Famotidine (Famotidine 20 Mg Tablet) 40 mg PO BEDTIME PRN PRN Reason: Heartburn Fluticasone/Vilanterol (Fluticasone/Vilanterol 200/25 Blst.W.Dev) 1 puff INHALE RDAILY [facility] Furosemide (Furosemide 20 Mg/2 Ml Vial) 20 mg IVPUSH DAILY [facility]; Protocol Last Admin: 10/29/23 13:30 Dose: 20 mg Documented By: MOR Glucose (Glucose Gel 15 Gm Gel..Gram.) 15 gm PO Q15M PRN; Protocol PRN Reason: per Hypoglycemia Standing Ord. Hydroxyzine HCl (Hydroxyzine Hcl 50 Mg Tablet) 50 mg PO BID PRN PRN Reason: Itching or anxiety Last Admin: 10/30/23 00:12 Dose: 50 mg Documented By: JAYCEE Levofloxacin (Levaquin) 500 mg in 100 mls @ 100 mls/hr IV Q24H [facility] Last Infusion: 10/29/23 10:05 Dose: Infused Documented By: MOR Levofloxacin (Levaquin) 250 mg in 50 mls @ 50 mls/hr IV Q24H [facility] Last Infusion: 10/29/23 10:15 Dose: Infused Documented By: MOR Dextrose (D10) 250 mls @ 750 mls/hr IV Q15M PRN; Protocol PRN Reason: per Hypoglycemia Standing Ord. Insulin Human Lispro (Insulin Lispro 100 Unit/Ml 3 Ml Vial) 0 unit SUBCUT QIDACHS [facility]; Protocol Last Admin: 10/29/23 22:48 Dose: Not Given Documented By: JAYCEE Non-Admin Reason: No Insulin Coverage Levothyroxine Sodium (Levothyroxine Sodium 25 Mcg Tablet) 12.5 mcg PO DAILY@0600 [facility] Last Admin: 10/30/23 06:52 Dose: 12.5 mcg Documented By: JAYCEE Levothyroxine Sodium (Levothyroxine Sodium 200 Mcg Tablet) 200 mcg PO DAILY@0600 [facility] Last Admin: 10/30/23 06:52 Dose: 200 mcg Documented By: JAYCEE Lidocaine (Lidocaine 4 % Patch Adh..Patch) 1 patch TRANSDERMA DAILY PRN PRN Reason: Pain, Mild (Pain Scale 1-3) Methadone HCl (Methadone Hcl 20 Mg/2 Ml Oral.Conc) 60 mg PO DAILY [facility] Last Admin: 10/29/23 09:01 Dose: 60 mg Documented By: MOR Neomycin/Polymyxin/Dexamethasone (Neomy/Polymyx/Dexameth Oph Larissa 5 Ml Bottle) 2 drop EYE-LEFT RQ4H WHILE AWAKE [facility] Omeprazole (Omeprazole 20 Mg Capsule.Dr) 20 mg PO DAILY@1200 [facility] Perphenazine (Perphenazine 4 Mg Tablet) 4 mg PO BEDTIME [facility] Last Admin: 10/29/23 22:49 Dose: 4 mg Documented By: JAYCEE Polyethylene Glycol (Polyethylene Glycol 3350 17 Gm Powd.Pack) 17 gm PO DAILY [facility] Last Admin: 10/29/23 15:29 Dose: Not Given Documented By: MOR Non-Admin Reason: pt was able to move her bowel Senna (Sennosides 8.6 Mg Tablet) 17.2 mg PO BEDTIME PRN PRN Reason: constipation Sertraline HCl (Sertraline Hcl 25 Mg Tablet) 25 mg PO DAILY@1200 [facility] Sertraline HCl (Sertraline Hcl 100 Mg Tablet) 100 mg PO DAILY@1200 [facility] Simethicone (Simethicone 80 Mg Tab.Chew) 160 mg PO BID [facility] Last Admin: 10/29/23 22:49 Dose: 160 mg Documented By: JAYCEE Sodium Chloride (0.9 % Sodium Chloride Flush 3 Ml Syringe) 3 ml IVFLUSH QSHIFT [facility] Last Admin: 10/29/23 22:55 Dose: 3 ml Documented By: JAYCEE Tiotropium Nicholson (Tiotropium Nicholson 2.5 Mcg 1 Puff/2.5 Mcg Mist.Inhal) 1 puff INHALE RDAILY [facility] Valsartan (Valsartan 160 Mg Tablet) 160 mg PO DAILY [facility] Labs 10/30/23 06:24 10/30/23 06:24 Labs: Laboratory Results - last 24 hr 10/29/23 10/29/23 10/29/23 09:19 11:51 16:08 MCV 88.4 MCH 27.7 MCHC 31.3 RDW 16.8 H Plt Count 126 L MPV 10.9 Immature Gran % (Auto) 0.4 Neut % (Auto) 71.8 Lymph % (Auto) 17.1 L Weber % (Auto) 6.1 Eos % (Auto) 4.3 H Baso % (Auto) 0.3 Lymph # (Auto) 1.2 Weber # (Auto) 0.4 Eos # (Auto) 0.3 Baso # (Auto) 0.0 Abs Immat Gran (auto) 0.03 Absolute Neuts (auto) 5.2 Absolute Nucleated RBC 0.000 Nucleated RBC % (auto) 0.0 VBG pH VBG pCO2 VBG pO2 VBG HCO3 VBG O2 Saturation VBG Base Excess Anion Gap 12 Estim Creat Clear Calc 88.3 Estimated GFR > 60 POC Glucose 157 H 128 H Random Glucose 147 H Calcium 9.2 Phosphorus 3.8 Magnesium 2.2 Albumin 4.0 10/29/23 10/30/23 10/30/23 22:12 06:24 06:25 MCV MCH MCHC RDW Plt Count MPV Immature Gran % (Auto) Neut % (Auto) Lymph % (Auto) Weber % (Auto) Eos % (Auto) Baso % (Auto) Lymph # (Auto) Weber # (Auto) Eos # (Auto) Baso # (Auto) Abs Immat Gran (auto) Absolute Neuts (auto) Absolute Nucleated RBC Nucleated RBC % (auto) VBG pH 7.40 VBG pCO2 39 VBG pO2 79 VBG HCO3 24 VBG O2 Saturation 98.0 VBG Base Excess 0.1 Anion Gap 15 Estim Creat Clear Calc 89.6 Estimated GFR > 60 POC Glucose 101 Random Glucose 115 Calcium 9.9 D Phosphorus Magnesium Albumin Assessment and Plan (1) Aspiration pneumonia: Status: Acute (2) Pulmonary edema: Status: Acute (3) Acute hypoxic on chronic hypercapnic respiratory failure: Status: Acute Plan 57-year-old bhutanese speaking female with a past medical history of COPD on home 02 at 4-6L,? hepatitis C, cirrhosis,? hypertension, hypothyroidism, hyperlipidemia, Substance abuse (on methadone), and tobacco use admitted for acute on chronic hypoxemic respiratory failure secondary to aspiration pneumonia and CHF exacerbation. Patient was initially admitted to ICU on 10/24 requiring emergent intubation due to severe respiratory distress and was successfully extubated on 10/27 on step-down to med/tele on 10/28. #Acute on chronic hypoxemic respiratory failure secondary to aspiration pneumonia and CHF exacerbation -continue high-flow O2, wean as tolerated. Baseline 4-6 L via nasal cannula -VBG this morning reassuring with pH 7.47, pCO2 25, bicarb 18 -DC diamox given bicarb 18. Initiate lasix 20mg IV daily, -18L this admission. Lungs clear 10/29. Change to PO lasix 20mg daily tomorrow 10/30 -continue Levaquin for empiric coverage of aspiration pneumonia -DuoNebs -steroids not indicated at this time -low-sodium diet -monitor I&O -weight is -last echo 10/25 shows normal LV systolic function with EF 55-60%. Normal LV size, thickness. Indeterminate filling pressures with akinetic basal inferoseptal segment -follow BMP #Acute tachycardia acutely tachcyaric in the 110-130 range today EKG shows sinus tach , rate 115, unchanaged from priors Remains hypoxic to 90% despite high flow ddimer slightly elevated at 278. check cta chest #Chronic thrombocytopenia -due to cirrhosis, not severe sepsis # COPD -no acute exacerbation -resume home inhalers, albuterol p.r.n. # hypertension -resume amlodipine, olmesartan # hypothyroidism -resume levothyroxine # opiate use disorder -continue methadone, dose reduced to 60 mg in the ICU # tobacco abuse -smoking cessation # GERD -PPI #hep c cirrhosis -compensated -outpt follow up DVT prophylaxis-Lovenox Full code Patient requires ongoing inpatient stay due to acute on chronic hypoxemic respiratory failure still requiring high-flow secondary to aspiration pneumonia and CHF exacerbation and will require ongoing IV diuresis and IV antibiotics as well as close monitoring of intake and output and renal function/electrolyte levels Quality Stroke Does the patient have a stroke diagnosis?: No VTE Prior VTE?: No VTE Risk Level:: Medical - moderate - high VTE Device Contraindication: N/A - Device Ordered VTE Drug Contraindication: N/A - Med Ordered
[2023-10-30 07:28] LABS: Basophils Percent Auto 0.1 % (0-2); Eosinophils Absolute Auto 0.3 X10*3/uL (0.0-0.4); Eosinophils Percent Auto 4.3 % (0-4); Hemoglobin 16.8 g/dl (12.0-16.0); Imm Gran Abs Auto 0.02 X10*3/uL (0.00-0.03); Imm Gran Pct Auto 0.3 % (0.0-0.4); Lymphocytes Absolute Auto 1.9 X10*3/uL (1.2-4.9); Lymphocytes Percent Auto 27.9 % (20-40); Mean Corpuscular HGB Conc 32.1 g/dl (31.0-35.0); Mean Corpuscular Hemoglobin 28.1 pg (27.0-33.0); Mean Corpuscular Volume 87.8 fL (80.0-98.0); Monocytes Absolute Auto 0.5 X10*3/uL (0.1-1.2); Monocytes Percent Auto 6.6 % (2-11); Neutrophils Absolute Auto 4.2 x10*3/uL (2.0-8.3); Neutrophils Percent Auto 60.8 % (45-73); Red Blood Count 5.97 X10*6/uL (4.20-5.50)
[2023-10-30 07:30] LABS: PLT ABN DIST 1; Platelet Count 97 X10*3/uL (160-400)
[2023-10-30 07:31] LABS: MANUAL DIFF FLAG NO
[2023-10-30 07:39] LABS: Glucose, Whole Blood 136 mg/dL (60-115)
[2023-10-30] MEDS: Albuterol/Iprat 2.5/0.5MG 3 ML AMPUL.NEB INHALE ×3 (07:44→19:19)
[2023-10-30] MEDS: amLODIPine Besylate 5 MG TABLET PO (08:42)
[2023-10-30] MEDS: Simethicone 80 MG TAB.CHEW 160 MG PO ×2 (08:42→21:33)
[2023-10-30] MEDS: Valsartan 160 MG TABLET PO (08:42)
[2023-10-30] MEDS: Docusate Sodium 100 MG CAPSULE PO ×2 (08:42→21:33)
[2023-10-30] MEDS: methADONE HCl 20 MG/2 ML ORAL.CONC 60 MG PO (08:43)
[2023-10-30] MEDS: Furosemide 20 MG/2 ML VIAL IVPUSH (08:44)
[2023-10-30] MEDS: levoFLOXacin/D5W 500 MG/100 ML PIGGYBACK 100 MG IV (08:47)
[2023-10-30] MEDS: levoFLOXacin/D5W 250 MG/50 ML PIGGYBACK 50 MG IV (08:47)
[2023-10-30 11:32] LABS: Glucose, Whole Blood 174 mg/dL (60-115)
[2023-10-30] MEDS: NeoMY/Polymyx/Dexameth Oph Sus 5 ML BOTTLE 2 DROP EYE-LEFT ×3 (11:40→21:50)
[2023-10-30] MEDS: Sertraline HCL 100 MG TABLET PO (11:40)
[2023-10-30] MEDS: Omeprazole 20 MG CAPSULE.DR PO (11:40)
[2023-10-30] MEDS: Sertraline HCL 25 MG TABLET PO (11:40)
[2023-10-30] MEDS: Insulin Lispro 100 UNIT/ML 3 ML VIAL SUBCUT ×2 (11:40→22:19)
--- NOTE | 2023-10-30 13:46 | ECG_ITS ---
Test Reason : tachycardia Blood Pressure : / mmHG Vent. Rate : 115 BPM Atrial Rate : 115 BPM P-R Int : 152 ms QRS Dur : 084 ms QT Int : 348 ms P-R-T Axes : 024 -84 048 degrees QTc Int : 481 ms Sinus tachycardia Left axis deviation Pulmonary disease pattern Abnormal ECG When compared with ECG of 25-OCT-2023 20:10, No significant change was found Referred By: Catalina Denny Electronically Signed By:SEBASTIAN VAN MD
[2023-10-30] MEDS: Lidocaine 4 % Patch ADH..PATCH 1 PATCH TRANSDERMA (14:17)
[2023-10-30 15:13] LABS: D Dimer High Sensitivity 278 NG/ML
[2023-10-30 16:04] LABS: Glucose, Whole Blood 117 mg/dL (60-115)
[2023-10-30] MEDS: 0.9 % Sodium Chloride Flush 3 ML SYRINGE IVFLUSH ×2 (16:12→21:41)
[2023-10-30] MEDS: Enoxaparin Sodium 40 MG/0.4 ML SYRINGE SUBCUT (21:33)
[2023-10-30] MEDS: Perphenazine 4 MG TABLET PO (21:33)
[2023-10-30] MEDS: Atorvastatin Calcium 80 MG TABLET PO (21:33)
[2023-10-30 21:57] LABS: Glucose, Whole Blood 160 mg/dL (60-115)
[2023-10-31] VITALS (8 sets, daily range): BP systolic 102–130; BP diastolic 67–88; PULSE 87–106; RESP 18–20; TEMP 36.1–36.8; O2SAT 90–93; BMI 27.3
[2023-10-31] MEDS: iohexoL 350 MG/ML 100 ML INFUS..BTL 65 ML IV (00:36)
[2023-10-31] MEDS: Levothyroxine Sodium 25 MCG TABLET 12.5 MCG PO (06:23)
[2023-10-31] MEDS: Levothyroxine Sodium 200 MCG TABLET PO (06:23)
[2023-10-31 06:48] LABS: MANUAL DIFF FLAG NO
[2023-10-31 06:57] LABS: Basophils Percent Auto 0.4 % (0-2); Eosinophils Absolute Auto 0.3 X10*3/uL (0.0-0.4); Eosinophils Percent Auto 4.3 % (0-4); Hematocrit 51.7 % (37.0-47.0); Hemoglobin 16.3 g/dl (12.0-16.0); Imm Gran Abs Auto 0.03 X10*3/uL (0.00-0.03); Imm Gran Pct Auto 0.4 % (0.0-0.4); Lymphocytes Absolute Auto 1.8 X10*3/uL (1.2-4.9); Lymphocytes Percent Auto 25.4 % (20-40); Mean Corpuscular HGB Conc 31.5 g/dl (31.0-35.0); Mean Corpuscular Volume 88.8 fL (80.0-98.0); Mean Platelet Volume 11.5 fL (9.4-12.3); Monocytes Absolute Auto 0.7 X10*3/uL (0.1-1.2); Monocytes Percent Auto 9.1 % (2-11); Neutrophils Absolute Auto 4.3 x10*3/uL (2.0-8.3); Neutrophils Percent Auto 60.4 % (45-73); Platelet Count 142 X10*3/uL (160-400); Red Blood Count 5.82 X10*6/uL (4.20-5.50); Red Cell Distribution Width 16.7 % (11.0-16.0); White Blood Count 7.2 X10*3/uL (4.8-10.8)
[2023-10-31 07:10] LABS: Glucose, Whole Blood 111 mg/dL (60-115)
[2023-10-31 07:18] LABS: Anion Gap 12 (12-20); Blood Urea Nitrogen 18 mg/dL (9-16); Calcium 9.5 mg/dL (8.4-10.2); Carbon Dioxide 29 mmol/L (22-29); Chloride 103 mmol/L (96-108); Creatinine Clr Calc Pharmacy 88.2; Estimated Glomerular Filt Rate > 60; Glucose Random 96 mg/dL (60-115); Sodium 140 mmol/L (135-145)
[2023-10-31] MEDS: Fluticasone/Vilanterol 200/25 BLST.W.DEV 1 PUFF INHALE (07:18)
[2023-10-31] MEDS: Albuterol/Iprat 2.5/0.5MG 3 ML AMPUL.NEB INHALE ×3 (07:18→18:41)
[2023-10-31] MEDS: Tiotropium Bromide 2.5 mcg 1 PUFF/2.5 MCG MIST.INHAL INHALE (07:18)
--- NOTE | 2023-10-31 07:40 | HO.PM.IMPN ---
Subjective Subjective Date of Service: 10/31/23 Interval History: Seen in follow up for acute hypopxemic respiratory failure due to CHF exacerbation and aspiration Interval history: Continues improving, downt o 6L on valle, no sob/wheezing/cough/cp. Vitals stable tachycardia resolved Review of Systems Review of Systems: Yes all other systems are reviewed and are negative Physical Exam Vital Signs: Vital Signs: Last Vital Signs Temp 97 F 10/31/23 04:00 Pulse 97 10/31/23 07:19 Resp 18 10/31/23 07:19 BP 123/77 10/31/23 04:00 Pulse Ox 92 10/31/23 04:00 O2 Del Method High Flow Nasal C annula 10/31/23 04:00 O2 Flow Rate 40 10/31/23 04:00 FiO2 55 10/31/23 04:00 Oxygen Flow Rate 5 10/25/23 20:00 BMI result Body Mass Index 27.3 Constitutional - Awake and Alert, No apparent distress Eyes - PERRLA, EOMI Cardiovascular - S1S2, RRR, No edema Respiratory - Normal lung expansion, Normal respiratory effort, No respiratory distress, CTA bilaterally Gastrointestinal - NT / ND; +BS; No rebound or guarding Extremities - no calf tenderness bilaterally, no swelling Skin - Warm/Dry Neurological - Alert & oriented x3 Psychological - Appropriate affect Objective Data Active Medications Albuterol Sulfate (Albuterol Sulfate (0.083%) 2.5 Mg/3 Ml Vial.Neb) 2.5 mg INHALE Q4H PRN PRN Reason: Shortness of Breath/Wheezing Last Admin: 10/27/23 00:27 Dose: 2.5 mg Documented By: LYNNE Albuterol Sulfate (Albuterol Sulfate 90 Mcg 8 Gm Inhaler) 2 puff INHALE RQ6H PRN PRN Reason: wheezing Albuterol/Ipratropium (Albuterol/Iprat 2.5/0.5mg 3 Ml Ampul.Neb) 3 ml INHALE RQ6H WHILE AWAKE [facility] Last Admin: 10/31/23 07:18 Dose: 3 ml Documented By: JUVE Amlodipine Besylate (Amlodipine Besylate 5 Mg Tablet) 5 mg PO DAILY [facility]; Protocol Last Admin: 10/30/23 08:42 Dose: 5 mg Documented By: MOR Atorvastatin Calcium (Atorvastatin Calcium 80 Mg Tablet) 80 mg PO BEDTIME [facility] Last Admin: 10/30/23 21:33 Dose: 80 mg Documented By: DEON Docusate Sodium (Docusate Sodium 100 Mg Capsule) 100 mg PO BID [facility] Last Admin: 10/30/23 21:33 Dose: 100 mg Documented By: DEON Enoxaparin Sodium (Enoxaparin Sodium 40 Mg/0.4 Ml Syringe) 40 mg SUBCUT Q24H [facility] Last Admin: 10/30/23 21:33 Dose: 40 mg Documented By: DEON Famotidine (Famotidine 20 Mg Tablet) 40 mg PO BEDTIME PRN PRN Reason: Heartburn Fluticasone/Vilanterol (Fluticasone/Vilanterol 200/25 Blst.W.Dev) 1 puff INHALE RDAILY [facility] Last Admin: 10/31/23 07:18 Dose: 1 puff Documented By: JUVE Furosemide (Furosemide 20 Mg Tablet) 20 mg PO DAILY [facility]; Protocol Glucose (Glucose Gel 15 Gm Gel..Gram.) 15 gm PO Q15M PRN; Protocol PRN Reason: per Hypoglycemia Standing Ord. Hydroxyzine HCl (Hydroxyzine Hcl 50 Mg Tablet) 50 mg PO BID PRN PRN Reason: Itching or anxiety Last Admin: 10/30/23 00:12 Dose: 50 mg Documented By: JAYCEE Dextrose (D10) 250 mls @ 750 mls/hr IV Q15M PRN; Protocol PRN Reason: per Hypoglycemia Standing Ord. Levofloxacin (Levaquin) 750 mg in 150 mls @ 100 mls/hr IV Q24H [facility] Insulin Human Lispro (Insulin Lispro 100 Unit/Ml 3 Ml Vial) 0 unit SUBCUT QIDACHS [facility]; Protocol Last Admin: 10/31/23 07:35 Dose: Not Given Documented By: MOR Non-Admin Reason: No Insulin Coverage Levothyroxine Sodium (Levothyroxine Sodium 25 Mcg Tablet) 12.5 mcg PO DAILY@0600 [facility] Last Admin: 10/31/23 06:23 Dose: 12.5 mcg Documented By: DEON Levothyroxine Sodium (Levothyroxine Sodium 200 Mcg Tablet) 200 mcg PO DAILY@0600 [facility] Last Admin: 10/31/23 06:23 Dose: 200 mcg Documented By: DEON Lidocaine (Lidocaine 4 % Patch Adh..Patch) 1 patch TRANSDERMA DAILY PRN PRN Reason: Pain, Mild (Pain Scale 1-3) Last Admin: 10/30/23 14:17 Dose: 1 patch Documented By: MOR Methadone HCl (Methadone Hcl 20 Mg/2 Ml Oral.Conc) 60 mg PO DAILY [facility] Last Admin: 10/30/23 08:43 Dose: 60 mg Documented By: MOR Neomycin/Polymyxin/Dexamethasone (Neomy/Polymyx/Dexameth Oph Larissa 5 Ml Bottle) 2 drop EYE-LEFT RQ4H WHILE AWAKE [facility] Last Admin: 10/30/23 21:50 Dose: 2 drop Documented By: DEON Omeprazole (Omeprazole 20 Mg Capsule.Dr) 20 mg PO DAILY@1200 [facility] Last Admin: 10/30/23 11:40 Dose: 20 mg Documented By: MOR Perphenazine (Perphenazine 4 Mg Tablet) 4 mg PO BEDTIME [facility] Last Admin: 10/30/23 21:33 Dose: 4 mg Documented By: DEON Polyethylene Glycol (Polyethylene Glycol 3350 17 Gm Powd.Pack) 17 gm PO DAILY [facility] Last Admin: 10/30/23 09:06 Dose: Not Given Documented By: MOR Non-Admin Reason: Patient Refused Senna (Sennosides 8.6 Mg Tablet) 17.2 mg PO BEDTIME PRN PRN Reason: constipation Sertraline HCl (Sertraline Hcl 25 Mg Tablet) 25 mg PO DAILY@1200 [facility] Last Admin: 10/30/23 11:40 Dose: 25 mg Documented By: MOR Sertraline HCl (Sertraline Hcl 100 Mg Tablet) 100 mg PO DAILY@1200 [facility] Last Admin: 10/30/23 11:40 Dose: 100 mg Documented By: MOR Simethicone (Simethicone 80 Mg Tab.Chew) 160 mg PO BID [facility] Last Admin: 10/30/23 21:33 Dose: 160 mg Documented By: DEON Sodium Chloride (0.9 % Sodium Chloride Flush 3 Ml Syringe) [facility] Last Admin: 10/30/23 21:41 Dose: 3 ml Documented By: DEON Tiotropium Republic (Tiotropium [place] 2.5 Mcg 1 Puff/2.5 Mcg Mist.Inhal) 1 puff INHALE RDAILY [facility] Last Admin: 10/31/23 07:18 Dose: 1 puff Documented By: JUVE Valsartan (Valsartan 160 Mg Tablet) 160 mg PO DAILY [facility] Last Admin: 10/30/23 08:42 Dose: 160 mg Documented By: MOR Labs 10/31/23 06:15 10/31/23 06:15 Labs: Laboratory Results - last 24 hr 10/30/23 10/30/23 10/30/23 11:28 14:57 16:00 MCV MCH MCHC RDW Plt Count MPV Immature Gran % (Auto) Neut % (Auto) Lymph % (Auto) [place] % (Auto) Eos % (Auto) Baso % (Auto) Lymph # (Auto) [place] # (Auto) Eos # (Auto) Baso # (Auto) Abs Immat Gran (auto) Absolute Neuts (auto) Absolute Nucleated RBC Nucleated RBC % (auto) D-Dimer High Sensitivty 278 Anion Gap Estim Creat Clear Calc Estimated GFR POC Glucose 174 H 117 H Random Glucose Calcium 10/30/23 10/31/23 10/31/23 21:52 06:15 07:04 MCV 88.8 MCH 28.0 MCHC 31.5 RDW 16.7 H Plt Count 142 L D MPV 11.5 Immature Gran % (Auto) 0.4 Neut % (Auto) 60.4 Lymph % (Auto) 25.4 [place] % (Auto) 9.1 Eos % (Auto) 4.3 H Baso % (Auto) 0.4 Lymph # (Auto) 1.8 [place] # (Auto) 0.7 Eos # (Auto) 0.3 Baso # (Auto) 0.0 Abs Immat Gran (auto) 0.03 Absolute Neuts (auto) 4.3 Absolute Nucleated RBC 0.000 Nucleated RBC % (auto) 0.0 D-Dimer High Sensitivty Anion Gap 12 Estim Creat Clear Calc 88.2 Estimated GFR > 60 POC Glucose 160 H 111 Random Glucose 96 Calcium 9.5 Microbiology Microbiology Results: Microbiology 10/25/23 22:59 Blood Culture - Final Blood - Venous No growth after 5 days. 10/25/23 23:01 Blood Culture - Final Blood - Venous No growth after 5 days. Assessment and Plan (1) Aspiration pneumonia: Status: Acute (2) Pulmonary edema: Status: Acute (3) Acute hypoxic on chronic hypercapnic respiratory failure: Status: Acute Plan 57-year-old iraqi speaking female with a past medical history of COPD on home 02 at 4-6L,? hepatitis C, cirrhosis,? hypertension, hypothyroidism, hyperlipidemia, Substance abuse (on methadone), and tobacco use admitted for acute on chronic hypoxemic respiratory failure secondary to aspiration pneumonia and CHF exacerbation. Patient was initially admitted to ICU on 10/24 requiring emergent intubation due to severe respiratory distress and was successfully extubated on 10/27 on step-down to med/tele on 10/28. #Acute on chronic hypoxemic respiratory failure secondary to aspiration pneumonia and CHF exacerbation -continue high-flow O2, wean as tolerated. Now on 6L visa valle. Baseline 4L via nasal cannula -DC diamox given bicarb 18. Initiate lasix 20mg IV daily, -18L this admission. Lungs clear 10/29. Change to PO lasix 20mg daily tomorrow 10/30. Monitor bicarb -continue Levaquin (10/25) for empiric coverage of aspiration pneumonia -DuoNebs -steroids not indicated at this time -low-sodium diet -monitor I&O -weight is -last echo 10/25 shows normal LV systolic function with EF 55-60%. Normal LV size, thickness. Indeterminate filling pressures with akinetic basal inferoseptal segment -follow BMP #Acute tachycardia acutely tachcyaric in the 110-130 range 10/29, EKG shows sinus tach , rate 115, unchanaged from priors -ddimer slightly elevated at 278. check cta chest negative for PE but shows extensive upper lobe predominant emphysema. There is also partial dense opacification of the bilateral lower lobes and right middle lobe likely due to atelectasis but possible superimposed consolidation can not be excluded -Continue Levaquin #Chronic thrombocytopenia -due to cirrhosis, not severe sepsis # COPD -no acute exacerbation -resume home inhalers, albuterol p.r.n. # hypertension -resume amlodipine, olmesartan # hypothyroidism -resume levothyroxine # opiate use disorder -continue methadone, dose reduced to 60 mg in the ICU # tobacco abuse -smoking cessation # GERD -PPI #hep c cirrhosis -compensated -outpt follow up DVT prophylaxis-Lovenox Full code Patient requires ongoing inpatient stay due to acute on chronic hypoxemic respiratory failure still requiring high-flow secondary to aspiration pneumonia and CHF exacerbation and will require ongoing IV diuresis and IV antibiotics as well as close monitoring of intake and output and renal function/electrolyte levels Quality Stroke Does the patient have a stroke diagnosis?: No VTE Prior VTE?: No VTE Risk Level:: Medical - moderate - high VTE Device Contraindication: N/A - Device Ordered VTE Drug Contraindication: N/A - Med Ordered
[2023-10-31] MEDS: Furosemide 20 MG TABLET PO (08:18)
[2023-10-31] MEDS: Valsartan 160 MG TABLET PO (08:18)
[2023-10-31] MEDS: Docusate Sodium 100 MG CAPSULE PO ×2 (08:18→20:51)
[2023-10-31] MEDS: Simethicone 80 MG TAB.CHEW 160 MG PO ×2 (08:18→20:51)
[2023-10-31] MEDS: NeoMY/Polymyx/Dexameth Oph Sus 5 ML BOTTLE 2 DROP EYE-LEFT ×4 (08:18→20:53)
[2023-10-31] MEDS: methADONE HCl 20 MG/2 ML ORAL.CONC 60 MG PO (08:19)
[2023-10-31] MEDS: amLODIPine Besylate 5 MG TABLET PO (08:20)
[2023-10-31] MEDS: 0.9 % Sodium Chloride Flush 3 ML SYRINGE IVFLUSH ×3 (08:21→20:51)
[2023-10-31] MEDS: levoFLOXacin/D5W 750 MG/150 ML PIGGYBACK 100 MG IV (08:24)
--- NOTE | 2023-10-31 11:08 | MHC.CLN ---
F/U PT EXTUBATED AND TRANSFERRED TO MEDICAL FLOOR DIET ADVANCED TO 2000DM 2GM NA-APPROPRIATE NOTED REDNESS TO BUTTOCKS-FRAGILE SKIN MONITOR PO INTAKE CLOSE[address] RD TO FOLLOW WEEKLY
[2023-10-31 11:51] LABS: Glucose, Whole Blood 122 mg/dL (60-115)
[2023-10-31] MEDS: Sertraline HCL 25 MG TABLET PO (12:14)
[2023-10-31] MEDS: Sertraline HCL 100 MG TABLET PO (12:14)
[2023-10-31] MEDS: Omeprazole 20 MG CAPSULE.DR PO (12:14)
--- NOTE | 2023-10-31 14:57 | MHC.CM.PN ---
Addendum entered by Zulay Lara 10/31/23 15:22: [facility] unable to accpt pt, and requested referrals be placed to their sister facilities. Referrals placed to [facility], [facility], and [facility]. Original Note: EMR reviewed and per MD rounds, pt is not medically cleared for discharge today, anticipating discharge tomorrow. PT eval done and they are recommending STR. This CM met with pt with the assistance of a hearing stenographer to discuss PT recs and discharge plan. Pt states she would like to discuss going to STR with her niece and will let us know. Pt states we can place referrals to STR's to inquire about available beds. Due to pts methadone use, facility options are limited. Referral placed to [facility].
[2023-10-31 16:33] LABS: Glucose, Whole Blood 143 mg/dL (60-115)
[2023-10-31 19:48] LABS: Glucose, Whole Blood 152 mg/dL (60-115)
[2023-10-31] MEDS: Enoxaparin Sodium 40 MG/0.4 ML SYRINGE SUBCUT (20:51)
[2023-10-31] MEDS: Atorvastatin Calcium 80 MG TABLET PO (20:51)
[2023-10-31] MEDS: Insulin Lispro 100 UNIT/ML 3 ML VIAL SUBCUT (20:51)
[2023-10-31] MEDS: Perphenazine 4 MG TABLET PO (20:51)
[2023-11-01] VITALS (7 sets, daily range): BP systolic 113–136; BP diastolic 60–83; PULSE 72–110; RESP 16–20; TEMP 36.2–36.7; O2SAT 80–95; BMI 27.4
[2023-11-01] MEDS: Levothyroxine Sodium 25 MCG TABLET 12.5 MCG PO (05:58)
[2023-11-01] MEDS: Levothyroxine Sodium 200 MCG TABLET PO (05:59)
[2023-11-01 07:15] LABS: Glucose, Whole Blood 132 mg/dL (60-115)
[2023-11-01] MEDS: Tiotropium Bromide 2.5 mcg 1 PUFF/2.5 MCG MIST.INHAL INHALE (07:18)
[2023-11-01] MEDS: Albuterol/Iprat 2.5/0.5MG 3 ML AMPUL.NEB INHALE ×2 (07:20→13:48)
[2023-11-01] MEDS: Fluticasone/Vilanterol 200/25 BLST.W.DEV 1 PUFF INHALE (07:20)
[2023-11-01] MEDS: Valsartan 160 MG TABLET PO (08:44)
[2023-11-01] MEDS: levoFLOXacin/D5W 750 MG/150 ML PIGGYBACK 100 MG IV (08:44)
[2023-11-01] MEDS: Simethicone 80 MG TAB.CHEW 160 MG PO (08:44)
[2023-11-01] MEDS: amLODIPine Besylate 5 MG TABLET PO (08:44)
[2023-11-01] MEDS: Docusate Sodium 100 MG CAPSULE PO (08:44)
[2023-11-01] MEDS: Furosemide 20 MG TABLET PO (08:44)
[2023-11-01] MEDS: 0.9 % Sodium Chloride Flush 3 ML SYRINGE IVFLUSH (08:47)
[2023-11-01] MEDS: methADONE HCl 20 MG/2 ML ORAL.CONC 60 MG PO (08:48)
[2023-11-01] MEDS: NeoMY/Polymyx/Dexameth Oph Sus 5 ML BOTTLE 2 DROP EYE-LEFT ×2 (08:48→14:14)
[2023-11-01] MEDS: polyethylene glycoL 3350 17 GM POWD.PACK PO (08:49)
[2023-11-01 11:20] LABS: Glucose, Whole Blood 138 mg/dL (60-115)
--- NOTE | 2023-11-01 11:40 | MHC.CM.PN ---
Addendum entered by Sepideh Wyman RN 11/01/23 13:10: CM RECEIVED ANOTHER CALL FROM MONTSERRAT AT [facility], MONTSERRAT REPORTS PT IS ACTIVE W/[facility] [phone], CM CALLED [facility] AND WAS TRANSFERRED TO PT'S COUNSELOR LETICIA NO ANSWER AND DETAILED MESSAGE LEFT REGARDING DOSE CHANGE AND RESUMPTION OF [facility] TOMORROW 11/01, CM CONTACT INFO PROVIDED. Addendum entered by Sepideh Wyman RN 11/01/23 12:51: CM RECEIVED A CALL BACK FROM MONTSERRAT [phone] AT [facility] REPORTING THEY CAN DO PT'S RESUMP OF CARE TOMORROW 11/01 AND THAT PT WILL HAVE A NURSE COVERING FOR MONTSERRAT STRAUSS REQUESTING CM FAX DC SUMMARY TO [phone] ONCE COMPLETE Addendum entered by Sepideh Wyman RN 11/01/23 12:16: CM REATTEMPTED TO CONTACT PT'S NURSE RICA STRAUSS ANSWERED HOWEVER IS ON [employer] AND GAVE [phone], CM ATTEMPTED TO CONTACT [facility] OFFICE HOWEVER ANSWERING SERVICE ANSWERED AND DETAILED MESSAGE LEFT INCLUDING INFO REGARDING CHANGE IN METHADONE DOSE WHICH WAS DECREASED TO 60MG DAILY. Original Note: PT MEDICALLY CLEARED FOR DC HOME W/RESUMP OF [facility] FOR SN/METHADONE AND NEW HOME PT, WILMAR MET W/PT WHO GAVE [facility] NURSES PHONE # FOR HER NURSE RICA [phone], DETAILED MESSAGE LEFT. PT REPORTS HER NIECE WILL TRANSPORT.
--- NOTE | 2023-11-01 13:22 | HO.ADDICTCON ---
History of Present Illness Date of Service: 11/01/2023 Chief Complaint: Hypoxic hypercapnic respiratory failure Reason for Consult: methadone dose titration Sources of Information: patient interviewed and chart reviewed HPI Narrative: Patient medically admitted with respiratory failure required intubation, while in ICU methadone dose decreased from 85mg to 60mg daily consult requested to address discharge dosing of methadone patient seen in room 468 awake, alert, bright affect reporting she wishes to remain at 60mg as her goal is to eventually taper off of methadone states she has been in recovery for many years denies any withdrawal sx since dose decrease Review of Systems Constitutional: Reports as per HPI Diagnostics Vital Signs (24Hr): Vital Signs - 24 hr 10/31/23 15:00 10/31/23 16:00 10/31/23 18:41 Temperature 97.3 F Pulse Rate 100 96 106 H Respiratory Rate 18 18 18 Blood Pressure 102/68 Pulse Oximetry 90 L Oxygen Delivery Method Room Air Oxygen Flow Rate 10/31/23 19:46 11/01/23 00:00 11/01/23 04:00 Temperature 97.4 F 97.2 F 98.0 F Pulse Rate 94 72 84 Respiratory Rate 20 16 16 Blood Pressure 115/67 118/73 121/72 Pulse Oximetry 90 L 95 94 Oxygen Delivery Method Nasal Cannula Nasal Cannula Nasal Cannula Oxygen Flow Rate 5 5 5 11/01/23 07:20 11/01/23 08:00 11/01/23 12:00 Temperature 97.5 F 98.0 F Pulse Rate 84 90 110 H Respiratory Rate 16 20 20 Blood Pressure 113/60 136/83 Pulse Oximetry 80 L 87 L Oxygen Delivery Method Room Air Room Air Nasal Cannula Oxygen Flow Rate 5 5 BMI result Body Mass Index 27.4 Labs 10/31/23 06:15 10/31/23 06:15 Labs: Laboratory Results - last 48 hr 10/30/23 10/30/23 10/30/23 14:57 16:00 21:52 WBC RBC Hgb Hct MCV MCH MCHC RDW Plt Count MPV Immature Gran % (Auto) Neut % (Auto) Lymph % (Auto) [place] % (Auto) Eos % (Auto) Baso % (Auto) Lymph # (Auto) [place] # (Auto) Eos # (Auto) Baso # (Auto) Abs Immat Gran (auto) Absolute Neuts (auto) Absolute Nucleated RBC Nucleated RBC % (auto) D-Dimer High Sensitivty 278 Sodium Potassium Chloride Carbon Dioxide Anion Gap BUN Creatinine Estim Creat Clear Calc Estimated GFR POC Glucose 117 H 160 H Random Glucose Calcium 10/31/23 10/31/23 10/31/23 06:15 07:04 11:34 WBC 7.2 RBC 5.82 H Hgb 16.3 H Hct 51.7 H MCV 88.8 MCH 28.0 MCHC 31.5 RDW 16.7 H Plt Count 142 L D MPV 11.5 Immature Gran % (Auto) 0.4 Neut % (Auto) 60.4 Lymph % (Auto) 25.4 [place] % (Auto) 9.1 Eos % (Auto) 4.3 H Baso % (Auto) 0.4 Lymph # (Auto) 1.8 [place] # (Auto) 0.7 Eos # (Auto) 0.3 Baso # (Auto) 0.0 Abs Immat Gran (auto) 0.03 Absolute Neuts (auto) 4.3 Absolute Nucleated RBC 0.000 Nucleated RBC % (auto) 0.0 D-Dimer High Sensitivty Sodium 140 Potassium 4.0 Chloride 103 Carbon Dioxide 29 Anion Gap 12 BUN 18 H Creatinine 0.71 Estim Creat Clear Calc 88.2 Estimated GFR > 60 POC Glucose 111 122 H Random Glucose 96 Calcium 9.5 10/31/23 10/31/23 11/01/23 16:22 19:42 06:59 WBC RBC Hgb Hct MCV MCH MCHC RDW Plt Count MPV Immature Gran % (Auto) Neut % (Auto) Lymph % (Auto) [place] % (Auto) Eos % (Auto) Baso % (Auto) Lymph # (Auto) [place] # (Auto) Eos # (Auto) Baso # (Auto) Abs Immat Gran (auto) Absolute Neuts (auto) Absolute Nucleated RBC Nucleated RBC % (auto) D-Dimer High Sensitivty Sodium Potassium Chloride Carbon Dioxide Anion Gap BUN Creatinine Estim Creat Clear Calc Estimated GFR POC Glucose 143 H 152 H 132 H Random Glucose Calcium 11/01/23 10:58 WBC RBC Hgb Hct MCV MCH MCHC RDW Plt Count MPV Immature Gran % (Auto) Neut % (Auto) Lymph % (Auto) [place] % (Auto) Eos % (Auto) Baso % (Auto) Lymph # (Auto) [place] # (Auto) Eos # (Auto) Baso # (Auto) Abs Immat Gran (auto) Absolute Neuts (auto) Absolute Nucleated RBC Nucleated RBC % (auto) D-Dimer High Sensitivty Sodium Potassium Chloride Carbon Dioxide Anion Gap BUN Creatinine Estim Creat Clear Calc Estimated GFR POC Glucose 138 H Random Glucose Calcium Imaging Radiology Impressions: ITS Impressions Chest X-Ray 10/25/23 20:25 IMPRESSION: New patchy opacity right lung base likely infiltrate or atelectasis. Chest X-Ray 10/25/23 21:35 IMPRESSION: The tip of the endotracheal tube terminates 4.5 cm above the jeffry. There is an enteric tube crossing the diaphragm. The tip is collimated from the [id number]-no-nuid. Bibasilar airspace disease is redemonstrated. Chest CT 10/25/23 23:43 IMPRESSION: 1. Regions of dense opacity towards the bilateral lung bases as described above. This is favored to at least partially be due to atelectasis given associated volume loss, though a component of consolidation/pneumonia cannot be excluded. 2. Extensive upper lobe predominant emphysema. 3. Cardiomegaly. Chest CTA 10/31/23 00:30 IMPRESSION: 1. No pulmonary embolus identified. 2. Extensive upper lobe predominant emphysema. 3. Partial dense opacification of the bilateral lower lobes and right middle lobe, favored to at least mostly be due to atelectasis. In the proper clinical setting, some superimposed consolidation cannot be excluded. VTE: negative. Mental Status Exam Mental Status Exam Patient Appearance: Well Grooomed Level of Consciousness: Awake, Appropriate and Alert Medications Medications Current Medications Albuterol Sulfate (Albuterol Sulfate (0.083%) 2.5 Mg/3 Ml Vial.Neb) 2.5 mg INHALE Q4H PRN PRN Reason: Shortness of Breath/Wheezing Last Admin: 10/27/23 00:27 Dose: 2.5 mg Albuterol Sulfate (Albuterol Sulfate 90 Mcg 8 Gm Inhaler) 2 puff INHALE RQ6H PRN PRN Reason: wheezing Albuterol/Ipratropium (Albuterol/Iprat 2.5/0.5mg 3 Ml Ampul.Neb) 3 ml INHALE RQ6H WHILE AWAKE [facility] Last Admin: 11/01/23 07:20 Dose: 3 ml Amlodipine Besylate (Amlodipine Besylate 5 Mg Tablet) 5 mg PO DAILY [facility]; Protocol Last Admin: 11/01/23 08:44 Dose: 5 mg Atorvastatin Calcium (Atorvastatin Calcium 80 Mg Tablet) 80 mg PO BEDTIME [facility] Last Admin: 10/31/23 20:51 Dose: 80 mg Docusate Sodium (Docusate Sodium 100 Mg Capsule) 100 mg PO BID [facility] Last Admin: 11/01/23 08:44 Dose: 100 mg Enoxaparin Sodium (Enoxaparin Sodium 40 Mg/0.4 Ml Syringe) 40 mg SUBCUT Q24H [facility] Last Admin: 10/31/23 20:51 Dose: 40 mg Famotidine (Famotidine 20 Mg Tablet) 40 mg PO BEDTIME PRN PRN Reason: Heartburn Fluticasone/Vilanterol (Fluticasone/Vilanterol 200/25 Blst.W.Dev) 1 puff INHALE RDAILY [facility] Last Admin: 11/01/23 07:20 Dose: 1 puff Furosemide (Furosemide 20 Mg Tablet) 20 mg PO DAILY [facility]; Protocol Last Admin: 11/01/23 08:44 Dose: 20 mg Glucose (Glucose Gel 15 Gm Gel..Gram.) 15 gm PO Q15M PRN; Protocol PRN Reason: per Hypoglycemia Standing Ord. Hydroxyzine HCl (Hydroxyzine Hcl 50 Mg Tablet) 50 mg PO BID PRN PRN Reason: Itching or anxiety Last Admin: 10/30/23 00:12 Dose: 50 mg Dextrose (D10) 250 mls @ 750 mls/hr IV Q15M PRN; Protocol PRN Reason: per Hypoglycemia Standing Ord. Levofloxacin (Levaquin) 750 mg in 150 mls @ 100 mls/hr IV Q24H [facility] Last Infusion: 11/01/23 10:29 Dose: Infused Insulin Human Lispro (Insulin Lispro 100 Unit/Ml 3 Ml Vial) 0 unit SUBCUT QIDACHS [facility]; Protocol Last Admin: 11/01/23 11:21 Dose: Not Given Levothyroxine Sodium (Levothyroxine Sodium 25 Mcg Tablet) 12.5 mcg PO DAILY@0600 [facility] Last Admin: 11/01/23 05:58 Dose: 12.5 mcg Levothyroxine Sodium (Levothyroxine Sodium 200 Mcg Tablet) 200 mcg PO DAILY@0600 [facility] Last Admin: 11/01/23 05:59 Dose: 200 mcg Lidocaine (Lidocaine 4 % Patch Adh..Patch) 1 patch TRANSDERMA DAILY PRN PRN Reason: Pain, Mild (Pain Scale 1-3) Last Admin: 10/30/23 14:17 Dose: 1 patch Methadone HCl (Methadone Hcl 20 Mg/2 Ml Oral.Conc) 60 mg PO DAILY [facility] Last Admin: 11/01/23 08:48 Dose: 60 mg Neomycin/Polymyxin/Dexamethasone (Neomy/Polymyx/Dexameth Oph Larissa 5 Ml Bottle) 2 drop EYE-LEFT RQ4H WHILE AWAKE [facility] Last Admin: 11/01/23 08:48 Dose: 2 drop Omeprazole (Omeprazole 20 Mg Capsule.Dr) 20 mg PO DAILY@1200 [facility] Last Admin: 10/31/23 12:14 Dose: 20 mg Perphenazine (Perphenazine 4 Mg Tablet) 4 mg PO BEDTIME [facility] Last Admin: 10/31/23 20:51 Dose: 4 mg Polyethylene Glycol (Polyethylene Glycol 3350 17 Gm Powd.Pack) 17 gm PO DAILY [facility] Last Admin: 11/01/23 08:49 Dose: 17 gm Senna (Sennosides 8.6 Mg Tablet) 17.2 mg PO BEDTIME PRN PRN Reason: constipation Sertraline HCl (Sertraline Hcl 25 Mg Tablet) 25 mg PO DAILY@1200 [facility] Last Admin: 10/31/23 12:14 Dose: 25 mg Sertraline HCl (Sertraline Hcl 100 Mg Tablet) 100 mg PO DAILY@1200 [facility] Last Admin: 10/31/23 12:14 Dose: 100 mg Simethicone (Simethicone 80 Mg Tab.Chew) 160 mg PO BID [facility] Last Admin: 11/01/23 08:44 Dose: 160 mg Sodium Chloride (0.9 % Sodium Chloride Flush 3 Ml Syringe) 3 ml IVFLUSH QSHIFT [facility] Last Admin: 11/01/23 08:47 Dose: 3 ml Tiotropium Rutherford (Tiotropium [place] 2.5 Mcg 1 Puff/2.5 Mcg Mist.Inhal) 1 puff INHALE RDAILY [facility] Last Admin: 11/01/23 07:18 Dose: 1 puff Valsartan (Valsartan 160 Mg Tablet) 160 mg PO DAILY [facility] Last Admin: 11/01/23 08:44 Dose: 160 mg Allergies Allergies Allergy/AdvReac Type Severity Reaction Status Date / Time Penicillins [PENICILLINS] Allergy Unknown RED ITCHY Verified 10/25/23 20:01 RASH SEAFOOD Allergy Unknown FEVER Uncoded 10/06/23 15:17 SWELLING Assessment & Plan Assessment & Plan (1) Opioid use disorder, moderate, in sustained remission: Status: Acute Code(s): F11.21 - Opioid dependence, in remission Assessment and Plan: does not wish to make any additional changes to her methadone dose will remain at 60mg daily [facility] [place] at [place] (2) Elevated TSH: Status: Acute Code(s): R79.89 - Other specified abnormal findings of blood chemistry Total time managing care of this patient today ____ minutes. PMFSH Past Medical History Medical History (Updated 11/01/23 @ 13:22 by Sandra Mitchell CNP) COPD (chronic obstructive pulmonary disease) Methadone dependence Alcoholic cirrhosis Hepatitis C Pulmonary edema Polysubstance abuse Hypertension Acute and chronic respiratory failure Hypotension Respiratory failure Acute respiratory failure, unspecified whether with hypoxia or hypercapnia Hyperlipidemia Psychosis Hypoxia Acute exacerbation of chronic obstructive airways disease HTN (hypertension) Hypothyroid COPD (chronic obstructive pulmonary disease) Family History Family History Father HTN (hypertension) Mother Gastritis Ovarian cancer Arthritis Son Thyroid disease Other Hypothyroid Social History Social History Household Members: Unknown / Unable to assess Household Members Other:: 1 Housing: Unknown / Unable to assess Do you presently have visiting nurse or other home services: Yes ( [employer] 3 hrs only Mondays ) Alcohol intake: current Alcohol intake frequency: does not drink Patient Tobacco Use Status: Tobacco use Unknown Tobacco use type: Cigarette Cigarette Packs Per Day: 1 Cigarettes Per Day: 10 Years Smoked: 30 e-Cigarette/Vaping Use: Never Used Second Hand Smoke Exposure: No Substance Use Type: Heroin Advance Directives Date on File: 08/18/23 service: No Current occupational status: unemployed
--- NOTE | 2023-11-01 13:45 | P.DS_ITS ---
DS: Providers Provider Date of Service: 11/01/23 Date of admission: 10/25/23 22:01 Date of discharge: 11/01/23 Primary care physician: Cathleen Sears MD Consults: 11/01/23 11:47 Addiction Medicine Routine Consulting Provider: Addiction Covering Reason for consultation: drug use hx - on methadone adjustment Has provider been notified: No Attending physician on discharge: Jaydon Rodriguez Discharging clinician: Jaydon Rodriguez DS: Diagnosis Discharge Diagnosis (1) Opioid use disorder, moderate, in sustained remission: Status: Acute DS: Summary Hospital Course Hospital Course: 57-year-old syriac speaking female with a past medical history of COPD on home 02 at 4-6L,? hepatitis C, cirrhosis,? hypertension, hypothyroidism, h yperlipidemia, Substance abuse (on methadone), and tobacco use? who presented to the emergency? department with dyspnea.? According to EMS patient was satting low 70s on 5 L oxygen at home,? EMS? placed on CPAP and gave IM Solu-Medrol EN route to the hospital.? On arrival to the emergency department patient was significantly confused,? unable to answer questions, in severe respiratory distress,? tripoding? and cyanotic, she was unable to tolerate CPAP and required emergent intubation.? ?Laboratory data was significant for? venous blood gas? 7.27/96/47/44, serum bicarb 44. ?Imaging:?Chest x-ray consistent with pulmonary congestion,? right lower lobe with? questionable infiltrate or atelectasis ED course:? she received 1 L bolus, 125 mg of Solu-Medrol, ceftriaxone 1 g, azithromycin 500 mg, and albuterol 7.5 mg. Hospital course: 57-year-old female came with hx of copd on 4-6 liter home oxygen to the hospital because of shortness of breath, respiratory distressed-admitted to the ICU for Acute on chronic hypoxemic respiratory failure secondary to aspiration pneumonia and CHF exacerbation(HFpEF) and was unable to tolerate CPAP required intubation-initially patient started IV Lasix, steroids, antibiotics: With above supportive care patient seems to be improving, subsequently extubated ,in addition in ICU patient is methadone adjusted to 60mg po daily. Patient will also switched back to Lasix p.o. 20 mg daily. Echo was done EF is 55-60%. Patient also received Levaquin for aspiration pneumonia, completed the course of antibiotics for 7 days. Patient also has mild tachycardia, EKG sinus tachy, D- dimer borderline elevated to 78, CTA chest was negative for PE has extensive emphysema. Tachycardia seems to be somewhat improving, echo as above. Patient is asymptomatic, Tachycardia might be multifactorial- emphysema/atlactasis,decondtioning . tsh levels in : normal. plan: please consider check tsh in 1 week. Completed antibiotic course for pneumonia, consider checking chest imaging in 3- 4 weeks to see resolution of pneumonia. Continue home Lasix for 20 mg daily. methadone adjusted to 60mg po daily Monitor daily weights, CHF education given, if patient gained weight 2 lb or more in 1 week-will need outpatient Lasix adjustment. Patient was offered to go for rehab but patient declined, will be going home with home PT and VNA. Above was discussed with the patient and her family at bedside in detail length with the instrumentation and controls technician present, they both understand and in agreement with the above plan, time spent 40 minute. Time Attestation Total time managing care of this patient today: 40 mintues. Discharge Coordination Time (in mins): 40 min Quality: Safe Use of Opioids Does Pt have an Active Cancer Diagnosis on the Problem List?: No Quality: Stroke Does the patient have a stroke diagnosis?: No Physical Exam Vital Signs: Vital Signs: Last Vital Signs Temp 98.0 F 11/01/23 12:00 Pulse 110 H 11/01/23 12:00 Resp 20 11/01/23 12:00 BP 136/83 11/01/23 12:00 Pulse Ox 87 L 11/01/23 12:00 O2 Del Method Room Air, Nasal C annula 11/01/23 12:00 O2 Flow Rate 5 11/01/23 12:00 Oxygen Flow Rate 5 10/25/23 20:00 BMI result Body Mass Index 27.4 Appearance: Alert.? Oriented X3.? Eyes: Pupils equal, round and reactive to light.? Sclera nonicteric.? ENT: Pharynx normal.? Moist mucous membranes. cvs: rrr, [id number]. res: air entry fair , no wheezing or rales . abd: no rebound or guarding ,nt, bs present. ext pulses present , no cyanosis. neuro: axo3 , nonfocal. DS: Data Data Completed and Pending Completed studies during hospitalization [Text1]: Procedures Assistance with Respiratory Ventilation, Less than 24 Consecutive Hours, Continuous Positive Airway Pressure (10/06/23) Insertion of Endotracheal Airway into Trachea, Via Natural or Artificial Opening (06/30/23) Insertion of Infusion Device into Superior Vena Cava, Percutaneous Approach (06/30/23) Respiratory Ventilation, Less than 24 Consecutive Hours (06/30/23) Ultrasonography of Superior Vena Cava, Guidance (06/30/23) Labs on day of discharge: Laboratory Results - last 24 hr 10/31/23 10/31/23 11/01/23 16:22 19:42 06:59 POC Glucose 143 H 152 H 132 H 11/01/23 10:58 POC Glucose 138 H Imaging Chest x-ray: Radiologist's impression: ITS Impressions Chest X-Ray 10/25/23 20:25 IMPRESSION: New patchy opacity right lung base likely infiltrate or atelectasis. Chest X-Ray 10/25/23 21:35 IMPRESSION: The tip of the endotracheal tube terminates 4.5 cm above the jeffry. There is an enteric tube crossing the diaphragm. The tip is collimated from the [id number]. Bibasilar airspace disease is redemonstrated. Chest CT 10/25/23 23:43 IMPRESSION: 1. Regions of dense opacity towards the bilateral lung bases as described above. This is favored to at least partially be due to atelectasis given associated volume loss, though a component of consolidation/pneumonia cannot be excluded. 2. Extensive upper lobe predominant emphysema. 3. Cardiomegaly. Chest CTA 10/31/23 00:30 IMPRESSION: 1. No pulmonary embolus identified. 2. Extensive upper lobe predominant emphysema. 3. Partial dense opacification of the bilateral lower lobes and right middle lobe, favored to at least mostly be due to atelectasis. In the proper clinical setting, some superimposed consolidation cannot be excluded. VTE: negative. Discharge Plan Discharge Anticipated Discharge Date/Time: 11/01/23 13:32 Patient Disposition: Home Health Service Discharge Diagnosis: Acute on chronic hypoxemic respiratory failure secondary to aspiration pneumonia and CHF exacerbation Referrals: [facility] [Outside] - 1 Day (resumption of retirement and new home PT) Cathleen Sears MD [Primary Care Provider] - 1 Week Discharge Medications: Continued rosuvastatin 20 mg Tablet 20 mg PO BEDTIME ipratropium-albuterol 0.5 mg-3 mg(2.5 mg base)/3 mL solution for nebulization 3 ml inhalation QID PRN (Reason: wheezing) sertraline 100 mg Tablet 100 mg PO DAILY@1200 hydroxyzine pamoate 50 mg capsule 50 mg PO BID PRN (Reason: Itching or anxiety) sennosides [senna] 8.6 mg tablet 17.2 mg PO BEDTIME PRN (Reason: constipation) docusate sodium 100 mg capsule 100 mg PO BID metformin 500 mg tablet extended release 24 hr 500 mg PO DAILY@1800 furosemide 20 mg tablet 20 mg PO DAILY levothyroxine 25 mcg tablet 12.5 mcg PO DAILY@0600 pantoprazole 40 mg tablet,delayed release (DR/EC) 40 mg PO DAILY@1200 famotidine [Pepcid] 40 mg tablet 40 mg PO BEDTIME PRN (Reason: Heartburn) amlodipine 10 mg tablet 5 mg PO DAILY simethicone 180 mg capsule 180 mg PO BID fluticasone propion-salmeterol [Advair Diskus] 500-50 mcg/dose blister with device 1 ea INHALATION BID olmesartan 40 mg tablet 40 mg PO DAILY omega-3 acid ethyl esters 1 gram capsule 1 cap PO BID albuterol sulfate [Ventolin HFA] 90 mcg/actuation HFA aerosol inhaler 2 puff INHALATION Q6H PRN (Reason: wheezing) lidocaine 5 % adhesive patch,medicated 1 patch topical DAILY PRN (Reason: Pain) Rx Instructions: on for 12 h off for 12 h perphenazine 4 mg tablet 4 mg PO BEDTIME sertraline 25 mg tablet 25 mg PO DAILY@1200 Incruse Ellipta 62.5 mcg/actuation blister with device 1 inh inhalation DAILY levothyroxine 200 mcg tablet 200 mcg PO DAILY@0600 Changed methadone 10 mg/mL Concentrate 60 mg PO DAILY Qty: 1 0RF Rx Instructions: [facility] meth[facility]one clinic per pt- dose reduced during hospitalization to 60 mg Discharge Orders: Discharge Order (Routine); Ordered 11/01/23 Ordered By: Jaydon Rodriguez Diet: Advance to usual diet Activity on Discharge: As tolerated Stand Alone Forms: Patient Portal Discharge page, Community Support Print Language: Lithuanian Other Ambulatory Orders: Thyroid Stimulating Hormone (Routine) Timeframe: 1 Week Facility: [facility] - Location: Laboratory Ordered By: Jaydon Rodriguez Care Plan Goals: Patient was admitted for acute on chronic hypoxemic respiratory failure secondary to aspiration pneumonia, CHF exacerbation(hfpEf): Started on IV diuretics, antibiotics, also initially received steroids, required intubation in ICU-seems to be improved-sent to floor: Completed 7 days of antibiotics, diuresed well, shortness of breath improved significantly to the baseline now. Also in ICU her methadone is adjusted please see below. Health Concerns: please consider check tsh in 1 week. Completed antibiotic course for pneumonia, consider checking chest imaging in 3- 4 weeks to see resolution of pneumonia. Continue home Lasix for 20 mg daily. methadone adjusted to 60mg po daily Monitor daily weights, CHF education given, if patient gained weight 2 lb or more in 1 week-will need outpatient Lasix adjustment. Plan of Treatment: As above. Assessment: As above. Patient Instructions: Heart Failure (DC), Pneumonia (DC)
[2023-11-01 14:06] LABS: Glucose, Whole Blood 138 mg/dL (60-115)
[2023-11-01] MEDS: Sertraline HCL 25 MG TABLET PO (14:14)
[2023-11-01] MEDS: Omeprazole 20 MG CAPSULE.DR PO (14:14)
[2023-11-01] MEDS: Sertraline HCL 100 MG TABLET PO (14:15)
--- NOTE | 2023-11-01 14:24 | P.F2F_ITS ---
Service Date Service Date: 11/01/23 Encounter Date of encounter: 11/01/23 Encounter: CHF exacerbation, aspiration pneumonia Reasons for Services Signs and symptoms assessed: Shortness of breath or cough or fever or new symptoms. Reason for physical therapy: home safety and mobility, therapeutic exercises, restore joint function, gait/transfer training, assess need for DME, ADL training, energy conservation and other MD Overseeing Care: Cathleen Sears Homebound: Leaving the home is medically contraindicated at this time without the asist of a device and/or another person due th the listed conditions above and below. Reason homebound: weakness related to hospital stay Homebound supporting statement: Patient is generalized weak post hospitalisation has multiple comorbidities- need help with physical therapy, declined to go to rehab. Patient already has active VNA Certification: Based on the above findings, I certify that this patient is confined to the home and needs intermittent residential care, physical therapy and/or speech therapy, or continues to need occupational therapy. The patient is under my care, and I have initiated the establishment of the plan of care. The patient will be followed by a physician who will periodically review the plan of care. Time Spent With Patient Time: Total time managing care of this patient today ____ minutes.
--- NOTE | 2023-12-08 13:53 | MHC.CM.PN ---
Pt making progress and will transfer to the medical floor today: Pt from home w/significant other: has [facility] for skilled RN visits and [facility] for Methadone. Pt has a walker and [employer] for home O2. PCP is Dr. Sears: HCP on file and verified (dtr) Pt will likely need BLS transport to home. Referred back to [facility] for continued services upon d/c. CM to follow.
== END 2023-11-01 14:45 | disposition home health service (06) | DRG 137 ==
LOC: HO.ED 22:03 → HO.EDOVER 22:08 → HO.ICU 22:51 → HO.IMC 10-28 21:49
PROVIDERS: Internal Medicine Pulmonary Disease; Physician Assistant; Student in an Organized Health Care Education/Training Program; Admitting Provider Registered Nurse Community Health; Emergency Provider Emergency Medicine; PCP Family Medicine; Visit Provider Internal Medicine
DX: J69.0 Pneumonitis due to inhalation of food and vomit (principal); J96.21 Acute and chronic respiratory failure with hypoxia; I50.33 Acute on chronic diastolic (congestive) heart failure; J96.22 Acute and chronic respiratory failure with hypercapnia; I11.0 Hypertensive heart disease with heart failure; B19.20 Unspecified viral hepatitis C without hepatic coma; J43.9 Emphysema, unspecified; Z99.81 Dependence on supplemental oxygen; I42.9 Cardiomyopathy, unspecified; K21.9 Gastro-esophageal reflux disease without esophagitis; I95.2 Hypotension due to drugs; R00.0 Tachycardia, unspecified; T42.75XA Adverse effect of unspecified antiepileptic and sedative-hypnotic drugs, initial encounter; D69.59 Other secondary thrombocytopenia; K70.30 Alcoholic cirrhosis of liver without ascites; F11.20 Opioid dependence, uncomplicated; E78.5 Hyperlipidemia, unspecified; E03.9 Hypothyroidism, unspecified; Z20.822 Contact with and (suspected) exposure to COVID-19; Z88.0 Allergy status to penicillin; Z79.51 Long term (current) use of inhaled steroids; Z79.84 Long term (current) use of oral hypoglycemic drugs; Z79.890 Hormone replacement therapy; Z79.899 Other long term (current) drug therapy
CPT/HCPCS: 0241U; 36415; 71045; 71250; 71275; 80048; 80053; 80076; 80307; 81003; 82040; 82803; 82947; 83605; 83735; 83880; 84100; 84484; 85025; 85379; 85610; 87040; 93005; 93306; 94002; 94003; 94640; 94799; 97161; 99285; C1758; J0456; J0696; J1120; J1650; J1885; J1940; J1956; J2250; J2251; J2704; J2919; J3010; J3475; Q9967

== ENCOUNTER → 2023-10-25 19:52 | Outpatient (BNV) | payer MEDICAID, SELFPAY | PROVIDERS: Admitting Provider Registered Nurse Community Health; Emergency Provider Emergency Medicine; PCP Family Medicine; Visit Provider Internal Medicine Cardiovascular Disease | DX: R06.02 Shortness of breath (principal); R94.31 Abnormal electrocardiogram [ECG] [EKG] | CPT/HCPCS: 93010 ==

== ENCOUNTER 2023-10-25 22:01 | Outpatient (BNV) | payer MEDICAID, SELFPAY | END 2023-10-26 07:00 | PROVIDERS: Admitting Provider Registered Nurse Community Health; Emergency Provider Emergency Medicine; PCP Family Medicine; Visit Provider Internal Medicine Cardiovascular Disease | DX: R06.02 Shortness of breath (principal); R93.1 Abnormal findings on diagnostic imaging of heart and coronary circulation | CPT/HCPCS: 93306 ==

== ENCOUNTER 2023-10-25 22:01 | Outpatient (BNV) | payer MEDICAID, SELFPAY | END 2023-10-30 13:46 | PROVIDERS: Admitting Provider Registered Nurse Community Health; Emergency Provider Emergency Medicine; PCP Family Medicine; Visit Provider Internal Medicine Cardiovascular Disease | DX: R00.0 Tachycardia, unspecified (principal) | CPT/HCPCS: 93010 ==

== ENCOUNTER → 2023-10-25 22:01 | Outpatient (BNV) | payer MEDICAID, SELFPAY | PROVIDERS: Admitting Provider Registered Nurse Community Health; Emergency Provider Emergency Medicine; PCP Family Medicine; Visit Provider Nurse Practitioner Psychiatric/Mental Health | DX: F11.21 Opioid dependence, in remission (principal); R79.89 Other specified abnormal findings of blood chemistry | CPT/HCPCS: 99221 ==

== ENCOUNTER → 2023-10-25 22:01 | Outpatient (BNV) | payer MEDICAID, SELFPAY | PROVIDERS: Admitting Provider Registered Nurse Community Health; Emergency Provider Emergency Medicine; Visit Provider Registered Nurse Community Health | DX: J96.01 Acute respiratory failure with hypoxia (principal); J96.12 Chronic respiratory failure with hypercapnia; J81.1 Chronic pulmonary edema | CPT/HCPCS: 99291; 99499 ==

== ENCOUNTER → 2023-10-25 22:01 | Outpatient (BNV) | payer MEDICAID, SELFPAY | PROVIDERS: Admitting Provider Registered Nurse Community Health; Emergency Provider Emergency Medicine; Visit Provider Internal Medicine Pulmonary Disease | DX: J69.0 Pneumonitis due to inhalation of food and vomit (principal); J96.01 Acute respiratory failure with hypoxia; J96.12 Chronic respiratory failure with hypercapnia; B19.20 Unspecified viral hepatitis C without hepatic coma; J44.9 Chronic obstructive pulmonary disease, unspecified; F11.20 Opioid dependence, uncomplicated; K70.30 Alcoholic cirrhosis of liver without ascites; J81.1 Chronic pulmonary edema | CPT/HCPCS: 99291 ==

== ENCOUNTER → 2023-10-25 22:01 | Outpatient (BNV) | payer MEDICAID, SELFPAY | PROVIDERS: Admitting Provider Registered Nurse Community Health; Emergency Provider Emergency Medicine; PCP Family Medicine; Visit Provider Physician Assistant | DX: J69.0 Pneumonitis due to inhalation of food and vomit (principal); J81.1 Chronic pulmonary edema; J96.01 Acute respiratory failure with hypoxia; J96.12 Chronic respiratory failure with hypercapnia | CPT/HCPCS: 99232; 99239; G0180 ==

== ENCOUNTER 2023-11-08 13:40 | Outpatient (REF) | payer MEDICAID, SELFPAY ==
[2023-11-08 16:34] LABS: Cholesterol 235 mg/dL (<200); HDL Cholesterol 35 mg/dL (>40); Triglycerides 551 mg/dL (<150)
[2023-11-08 16:51] LABS: Alanine Aminotransferase 21 U/L (0-31); Albumin Level 3.9 g/dL (3.5-5.0); Alkaline Phosphatase 99 U/L (39-117); Anion Gap 15 (12-20); Aspartate Amino Transferase 24 U/L (5-31); Bilirubin Total 0.4 mg/dL (0.0-1.0); Blood Urea Nitrogen 12 mg/dL (9-16); Calcium 10.2 mg/dL (8.4-10.2); Carbon Dioxide 35 mmol/L (22-29); Chloride 94 mmol/L (96-108); Estimated Glomerular Filt Rate > 60; Glucose Random 89 mg/dL (60-115); Potassium 5.7 mmol/L (3.3-5.1); Sodium 138 mmol/L (135-145); TSH reflex Free T4 1.52 uIU/mL (0.32-4.0); Thyroid Stimulating Hormone 1.52 uIU/mL (0.32-4.0); Total Protein 7.8 g/dL (6.5-8.0)
[2023-11-08 17:17] LABS: Creatinine Urine 67.59 mg/dL; Microalbumin Urine < 5.0 mg/L
[2023-11-08 17:42] LABS: Folate 6.4 ng/mL (> or = 4.0); Vitamin B12 600 pg/mL (200-900)
[2023-11-08 18:12] LABS: Reflex LDLD? No
== END 2023-11-08 13:41 | disposition home or self-care (01) ==
LOC: HO.HHCL 13:40
PROVIDERS: Family Medicine; Visit Provider Internal Medicine
DX: E11.9 Type 2 diabetes mellitus without complications (principal); R79.89 Other specified abnormal findings of blood chemistry
CPT/HCPCS: 36415; 80053; 80061; 82043; 82570; 82607; 82746; 84443

== ENCOUNTER 2023-12-07 14:51 | Inpatient (IN) | payer MEDICAID, SELFPAY ==
[2023-12-07] VITALS (8 sets, daily range): BP systolic 101–122; BP diastolic 52–74; PULSE 89–111; RESP 14–25; TEMP 36.5–36.9; O2SAT 88–98; BMI 27.4
--- NOTE | ~2023-12-07 | XR_ITS ---
EXAMINATION: XR CHEST CLINICAL INFORMATION: Shortness of breath COMPARISON: 10/25/2023 TECHNIQUE: Frontal view of the chest was obtained. FINDINGS: Emphysema with increased lung markings appear similar. Pleural and parenchymal disease to get the left base appears similar. No overt pulmonary edema. Heart size remains enlarged. XR/XR chest 1V IMPRESSION: Emphysema. Left basilar pleural and parenchymal disease similar. Electronically signed by: Kwadwo Grijalva MD 12/07/2023 06:03 PM EDT RP
--- NOTE | 2023-12-07 15:09 | ECG_ITS ---
Test Reason : dyspnea Blood Pressure : / mmHG Vent. Rate : 101 BPM Atrial Rate : 101 BPM P-R Int : 154 ms QRS Dur : 088 ms QT Int : 378 ms P-R-T Axes : 006 -67 033 degrees QTc Int : 490 ms Sinus tachycardia Left axis deviation Abnormal ECG When compared with ECG of 30-OCT-2023 13:52, No significant change was found Referred By: Ed Larson Electronically Signed By:KIRA BREWSTER
--- NOTE | 2023-12-07 15:10 | ED.GENADULT ---
HPI - General Adult General Chief complaint: Dyspnea Stated complaint: SOB ON HOME O2,COUGH,?FLU PER EMS Time Seen by Provider: 12/07/23 15:02 History of Present Illness ED Provider: Marsha SMITH narrative: The patient is a 58-year-old woman with a history of COPD as well as other medical problems who has had worsening shortness of breath over the last 2 days. She has had a cough productive of yellow-green sputum. She thinks she may have had a fever. She is normally on 4 L of oxygen at home. She has been using her nebulizer machine. Today she called an ambulance because she was quite short of breath. Related Data Home Medications ?Medication ?Instructions ?Recorded ?Confirmed rosuvastatin 20 mg tablet 20 mg PO BEDTIME 03/11/20 10/26/23 perphenazine 4 mg tablet 4 mg PO BEDTIME 09/24/21 10/26/23 levothyroxine 200 mcg tablet 200 mcg PO DAILY@0600 10/01/22 10/26/23 sertraline 25 mg tablet 25 mg PO DAILY@1200 10/01/22 10/26/23 umeclidinium 62.5 mcg/actuation 1 inh inhalation DAILY 10/01/22 10/26/23 blister powder for inhalation (Incruse Ellipta) hydroxyzine pamoate 50 mg capsule 50 mg PO BID PRN Itching or anxiety 04/20/23 10/26/23 ipratropium 0.5 mg-albuterol 3 mg 3 ml inhalation QID PRN wheezing 04/20/23 10/26/23 (2.5 mg base)/3 mL nebulization soln sertraline 100 mg tablet 100 mg PO DAILY@1200 04/20/23 10/26/23 docusate sodium 100 mg capsule 100 mg PO BID constipation 07/01/23 10/26/23 metformin 500 mg tablet,extended 500 mg PO DAILY@1800 07/01/23 10/26/23 release 24 hr sennosides 8.6 mg tablet (senna) 17.2 mg PO BEDTIME PRN constipation 07/01/23 10/26/23 famotidine 40 mg tablet (Pepcid) 40 mg PO BEDTIME PRN Heartburn 08/16/23 10/26/23 furosemide 20 mg tablet 20 mg PO DAILY 08/16/23 10/26/23 levothyroxine 25 mcg tablet 12.5 mcg PO DAILY@0600 08/16/23 10/26/23 pantoprazole 40 mg tablet,delayed 40 mg PO DAILY@1200 08/16/23 10/26/23 release amlodipine 10 mg tablet 5 mg PO DAILY 09/03/23 10/26/23 albuterol sulfate 90 mcg/actuation 2 puff inhalation Q6H PRN wheezing 10/06/23 10/26/23 aerosol inhaler (Ventolin HFA) fluticasone 500 mcg-salmeterol 50 1 ea inhalation BID 10/06/23 10/26/23 mcg/dose blistr powdr for inhalation (Advair Diskus) olmesartan 40 mg tablet 40 mg PO DAILY 10/06/23 10/26/23 omega-3 acid ethyl esters 1 gram 1 cap PO BID 10/06/23 10/26/23 capsule simethicone 180 mg capsule 180 mg PO BID 10/06/23 10/26/23 lidocaine 5 % topical patch 1 patch topical DAILY PRN Pain 10/26/23 10/26/23 Previous Rx's ?Medication ?Instructions ?Recorded methadone 10 mg/mL oral concentrate 60 mg (6 mL) PO DAILY #1 mL 11/01/23 Allergies Allergy/AdvReac Type Severity Reaction Status Date / Time Penicillins [PENICILLINS] Allergy Unknown RED ITCHY Verified 12/07/23 15:12 RASH SEAFOOD Allergy Unknown FEVER Uncoded 12/07/23 15:12 SWELLING PMFSH Past Medical History Medical History (Updated 12/07/23 @ 22:26 by Ed Larson MD) COPD (chronic obstructive pulmonary disease) Methadone dependence Alcoholic cirrhosis Hepatitis C Pulmonary edema Polysubstance abuse Hypertension Acute and chronic respiratory failure Hypotension Respiratory failure Acute respiratory failure, unspecified whether with hypoxia or hypercapnia Hyperlipidemia Psychosis Hypoxia Acute exacerbation of chronic obstructive airways disease HTN (hypertension) Hypothyroid COPD (chronic obstructive pulmonary disease) Family History Family History Father HTN (hypertension) Mother Gastritis Ovarian cancer Arthritis Son Thyroid disease Other Hypothyroid Social History Social History Household Members: Unknown / Unable to assess Household Members Other:: 1 Housing: Unknown / Unable to assess Do you presently have visiting nurse or other home services: Yes ( [employer] 3 hrs only Mondays ) Alcohol intake: current Alcohol intake frequency: does not drink Patient Tobacco Use Status: Tobacco use Unknown Tobacco use type: Cigarette Cigarette Packs Per Day: 1 Cigarettes Per Day: 10 Years Smoked: 30 Smoked in Last 30 Days: No e-Cigarette/Vaping Use: Never Used Second Hand Smoke Exposure: No Use of substances other than those prescribed or required for medical reasons: No Substance Use Type: Heroin Advance Directives: Yes Advance Directives on File: Yes Advance Directives Date on File: 08/18/23 Do you have a plan to hurt others: No Plan service: No Current occupational status: unemployed Physical Exam ED Vital Signs: Vital Signs - 24 hr 12/07/23 15:06 12/07/23 16:20 12/07/23 18:23 Temperature 97.9 F Pulse Rate 111 H 99 Respiratory Rate 14 25 H 16 Blood Pressure 122/74 Pulse Oximetry 92 Oxygen Delivery Method Oxymask 12/07/23 18:28 12/07/23 20:00 12/07/23 20:00 Temperature 97.7 F Pulse Rate 90 89 Respiratory Rate 14 14 18 Blood Pressure 101/52 L Pulse Oximetry 96 93 Oxygen Delivery Method BiPAP BiPAP 12/07/23 22:03 Temperature Pulse Rate Respiratory Rate 20 Blood Pressure Pulse Oximetry Oxygen Delivery Method BMI result Body Mass Index 27.4 Const Other: The patient is a chronically ill-appearing 58-year-old woman who arrived awake in respiratory difficulty. There was increased work of breathing. HENMT Other: Face is symmetrical. Mucous membranes moist. Airway clear. Eyes Other: Pupils are round equal, conjunctivae clear, extraocular movements intact Neck Other: No JVD, no stridor Resp Other: Increased work of breathing, tachypnea, decreased air entry bilaterally, wheezes bilaterally Cardio Rate: tachycardic Rhythm: regular rhythm Heart sounds: S1 normal heart sound present and S2 normal heart sound present GI Other: Abdomen is soft and nontender Skin Other: Skin is pale and dry Neuro Other: The patient was initially awake and alert with intact cranial nerves and moving her extremities symmetrically. Later she seemed somnolent. Extrem Other: No peripheral edema, no calf asymmetry or tenderness. Medications Administered Discontinued Medications Generic Name Dose Route Start Last Admin Trade Name Freq PRN Reason Stop Dose Admin Albuterol Sulfate 5 mg/ 0 mg 12/07/23 16:09 12/07/23 16:20 Albuterol/Ipratropium 3 ml INHALE 12/07/23 16:10 1 each ONCE ONE Administration Azithromycin 500 mg/ Sodium 250 mls @ 125 mls/hr 12/07/23 18:12 12/07/23 18:22 Chloride IV 12/07/23 20:11 125 mls/hr ONCE ONE Administration Lidocaine 2 patch 12/07/23 20:04 12/07/23 20:49 Lidocaine 4 % Patch Adh..Patch TRANSDERMA 12/07/23 20:05 2 patch ONCE ONE Administration Protocol Methylprednisolone Sodium Succinate 80 mg 12/07/23 18:11 12/07/23 18:16 Methylprednisolone Sod Succ 125 Mg/2 Ml Vial IVPUSH 12/07/23 18:12 80 mg ONCE ONE Administration Medical Decision Making Medical Decision Making [facility] Narrative: The patient is a 58-year-old female with a history of significant COPD who is normally on 4 L of oxygen at home. She presents with 2 days of worsening symptoms of a respiratory illness. She says she has had fevers, cough, and green sputum production. She arrived hypoxic on 4 L and required additional supplemental oxygen. Her VBG showed a pH of 7.33 with a pCO2 of 84. Chest x-ray is unchanged. EKG is unremarkable. COVID is positive. Other labs are fairly unremarkable. The patient was initially placed on an OxyMask and she seemed to develop somnolence on the OxyMask. She was then placed on BiPAP. She was also given bronchodilator treatments as well as IV steroids and IV azithromycin. I think her acute respiratory deterioration is from COVID and her COPD. I do not think she is septic. Her lactate is 0.9. White count is normal with a normal differential. CRP only minimally abnormal at 0.78. The patient was placed on BiPAP for over an hour at which point we were able to transfer her to high-flow nasal oxygen. This seemed adequate. I discussed the case with the hospitalist. He says the patient tends to be a very brittle COPD the patient and often fails treatment on the floor. He therefore recommended possible ICU admission. I consulted the ICU attending and ultimately the patient was accepted to the ICU. Repeat VBG was fairly stable. Lab Data 12/07/23 15:58 12/07/23 15:50 Labs: Lab Results 12/07/23 12/07/23 12/07/23 Range/Units 15:39 15:50 15:50 WBC (4.8-10.8) X10*3/uL RBC (4.20-5.50) X10*6/uL Hgb (12.0-16.0) g/dl Hct (37.0-47.0) % MCV (80.0-98.0) fL MCH (27.0-33.0) pg MCHC (31.0-35.0) g/dl RDW (11.0-16.0) % Plt Count (160-400) X10*3/uL MPV (9.4-12.3) fL Immature Gran % (Auto) (0.0-0.4) % Neut % (Auto) (45-73) % Lymph % (Auto) (20-40) % [place] % (Auto) (2-11) % Eos % (Auto) (0-4) % Baso % (Auto) (0-2) % Lymph # (Auto) (1.2-4.9) X10*3/uL [place] # (Auto) (0.1-1.2) X10*3/uL Eos # (Auto) (0.0-0.4) X10*3/uL Baso # (Auto) (0.0-0.2) X10*3/uL Abs Immat Gran (auto) (0.00-0.03) X10*3/uL Absolute Neuts (auto) (2.0-8.3) x10*3/uL Absolute Nucleated RBC (0.0-0.012) X10*3/uL Nucleated RBC % (auto) (0.0-0.2) /100WBC PT 10.9 L (11.1-13.3) SEC INR 0.9 (0.9-1.1) VBG pH (7.32-7.43) VBG pCO2 mmHg VBG pO2 mmHg VBG HCO3 (22-26) mmol/L VBG O2 Saturation % VBG Base Excess mmol/L Sodium 137 (135-145) mmol/L Potassium 4.7 (3.3-5.1) mmol/L Chloride 92 L (96-108) mmol/L Carbon Dioxide 42 H* (22-29) mmol/L Anion Gap 8 L (12-20) BUN 14 (9-16) mg/dL Creatinine 0.70 (0.5-1.4) mg/dL Estim Creat Clear Calc 92.9 Estimated GFR > 60 Random Glucose 116 H (60-115) mg/dL Lactic Acid 0.9 (0.5-2.0) mmol/L Calcium 9.6 (8.4-10.2) mg/dL Magnesium 2.3 (1.6-2.6) mg/dL Total Bilirubin 0.4 (0.0-1.0) mg/dL Direct Bilirubin 0.1 (0.0-0.5) mg/dL AST 27 (5-31) U/L ALT 41 H (0-31) U/L Alkaline Phosphatase 109 (39-117) U/L Troponin I High Sens (<3.5-17.0) ng/L C-Reactive Protein 0.78 H (< or = 0.50) mg/dL B-Natriuretic Peptide 12 (<100) pg/mL Total Protein 7.7 (6.5-8.0) g/dL Albumin 4.1 (3.5-5.0) g/dL Ethyl Alcohol < 10 Cancelled mg/dL Influenza Type A (PCR) NEGATIVE (Negative) Influenza Type B (PCR) NEGATIVE (Negative) RSV RNA Qual (PCR) NEGATIVE (Negative) SARS-CoV-2 RNA (RT-PCR) POSITIVE A (Negative) 12/07/23 12/07/23 12/07/23 Range/Units 15:51 15:58 16:00 WBC 7.6 (4.8-10.8) X10*3/uL RBC 4.99 (4.20-5.50) X10*6/uL Hgb 14.1 (12.0-16.0) g/dl Hct 44.8 (37.0-47.0) % MCV 89.8 (80.0-98.0) fL MCH 28.3 (27.0-33.0) pg MCHC 31.5 (31.0-35.0) g/dl RDW 14.6 (11.0-16.0) % Plt Count 145 L (160-400) X10*3/uL MPV 10.6 (9.4-12.3) fL Immature Gran % (Auto) 0.4 (0.0-0.4) % Neut % (Auto) 54.2 (45-73) % Lymph % (Auto) 33.3 (20-40) % [place] % (Auto) 9.2 (2-11) % Eos % (Auto) 2.5 (0-4) % Baso % (Auto) 0.4 (0-2) % Lymph # (Auto) 2.5 (1.2-4.9) X10*3/uL [place] # (Auto) 0.7 (0.1-1.2) X10*3/uL Eos # (Auto) 0.2 (0.0-0.4) X10*3/uL Baso # (Auto) 0.0 (0.0-0.2) X10*3/uL Abs Immat Gran (auto) 0.03 (0.00-0.03) X10*3/uL Absolute Neuts (auto) 4.1 (2.0-8.3) x10*3/uL Absolute Nucleated RBC 0.000 (0.0-0.012) X10*3/uL Nucleated RBC % (auto) 0.0 (0.0-0.2) /100WBC PT (11.1-13.3) SEC INR (0.9-1.1) VBG pH 7.33 (7.32-7.43) VBG pCO2 84 mmHg VBG pO2 56 mmHg VBG HCO3 45 H (22-26) mmol/L VBG O2 Saturation 89.0 % VBG Base Excess 14.5 mmol/L Sodium (135-145) mmol/L Potassium (3.3-5.1) mmol/L Chloride (96-108) mmol/L Carbon Dioxide (22-29) mmol/L Anion Gap (12-20) BUN (9-16) mg/dL Creatinine (0.5-1.4) mg/dL Estim Creat Clear Calc Estimated GFR Random Glucose (60-115) mg/dL Lactic Acid (0.5-2.0) mmol/L Calcium (8.4-10.2) mg/dL Magnesium (1.6-2.6) mg/dL Total Bilirubin (0.0-1.0) mg/dL Direct Bilirubin (0.0-0.5) mg/dL AST (5-31) U/L ALT (0-31) U/L Alkaline Phosphatase (39-117) U/L Troponin I High Sens < 2.7 (<3.5-17.0) ng/L C-Reactive Protein (< or = 0.50) mg/dL B-Natriuretic Peptide (<100) pg/mL Total Protein (6.5-8.0) g/dL Albumin (3.5-5.0) g/dL Ethyl Alcohol mg/dL Influenza Type A (PCR) (Negative) Influenza Type B (PCR) (Negative) RSV RNA Qual (PCR) (Negative) SARS-CoV-2 RNA (RT-PCR) (Negative) 12/07/23 Range/Units 20:55 WBC (4.8-10.8) X10*3/uL RBC (4.20-5.50) X10*6/uL Hgb (12.0-16.0) g/dl Hct (37.0-47.0) % MCV (80.0-98.0) fL MCH (27.0-33.0) pg MCHC (31.0-35.0) g/dl RDW (11.0-16.0) % Plt Count (160-400) X10*3/uL MPV (9.4-12.3) fL Immature Gran % (Auto) (0.0-0.4) % Neut % (Auto) (45-73) % Lymph % (Auto) (20-40) % [place] % (Auto) (2-11) % Eos % (Auto) (0-4) % Baso % (Auto) (0-2) % Lymph # (Auto) (1.2-4.9) X10*3/uL [place] # (Auto) (0.1-1.2) X10*3/uL Eos # (Auto) (0.0-0.4) X10*3/uL Baso # (Auto) (0.0-0.2) X10*3/uL Abs Immat Gran (auto) (0.00-0.03) X10*3/uL Absolute Neuts (auto) (2.0-8.3) x10*3/uL Absolute Nucleated RBC (0.0-0.012) X10*3/uL Nucleated RBC % (auto) (0.0-0.2) /100WBC PT (11.1-13.3) SEC INR (0.9-1.1) VBG pH 7.34 (7.32-7.43) VBG pCO2 78 mmHg VBG pO2 47 mmHg VBG HCO3 42 H (22-26) mmol/L VBG O2 Saturation 81.0 % VBG Base Excess 12.5 mmol/L Sodium (135-145) mmol/L Potassium (3.3-5.1) mmol/L Chloride (96-108) mmol/L Carbon Dioxide (22-29) mmol/L Anion Gap (12-20) BUN (9-16) mg/dL Creatinine (0.5-1.4) mg/dL Estim Creat Clear Calc Estimated GFR Random Glucose (60-115) mg/dL Lactic Acid (0.5-2.0) mmol/L Calcium (8.4-10.2) mg/dL Magnesium (1.6-2.6) mg/dL Total Bilirubin (0.0-1.0) mg/dL Direct Bilirubin (0.0-0.5) mg/dL AST (5-31) U/L ALT (0-31) U/L Alkaline Phosphatase (39-117) U/L Troponin I High Sens (<3.5-17.0) ng/L C-Reactive Protein (< or = 0.50) mg/dL B-Natriuretic Peptide (<100) pg/mL Total Protein (6.5-8.0) g/dL Albumin (3.5-5.0) g/dL Ethyl Alcohol mg/dL Influenza Type A (PCR) (Negative) Influenza Type B (PCR) (Negative) RSV RNA Qual (PCR) (Negative) SARS-CoV-2 RNA (RT-PCR) (Negative) Independent Interpretation I performed an independent interpretation of an: EKG Interpretation: EKG at 16:10 shows sinus tachycardia at 101 beats per minute. There is left axis deviation. No significant change from previous. No acute ischemic changes. Critical Care Time Critical Care Time Critical Care Time: Yes Total Critical Care Time: 35 Attestation: The patient was critically ill with a high probability of imminent or life-threatening deterioration. ?I spent greater than 30 minutes of discontinuous time evaluating the patient, delivering critical care at the bedside, discussing evaluating data with consultants. ?Critical care time does not include time spent performing separately billable procedures or teaching. ?Time spent performing critical care with 35 minutes. Discharge Plan Discharge Patient Disposition: Admitted As Inpatient Prescriptions: No Action rosuvastatin 20 mg Tablet 20 mg PO BEDTIME ipratropium-albuterol 0.5 mg-3 mg(2.5 mg base)/3 mL solution for nebulization 3 ml inhalation QID PRN (Reason: wheezing) sertraline 100 mg Tablet 100 mg PO DAILY@1200 hydroxyzine pamoate 50 mg capsule 50 mg PO BID PRN (Reason: Itching or anxiety) sennosides [senna] 8.6 mg tablet 17.2 mg PO BEDTIME PRN (Reason: constipation) docusate sodium 100 mg capsule 100 mg PO BID metformin 500 mg tablet extended release 24 hr 500 mg PO DAILY@1800 furosemide 20 mg tablet 20 mg PO DAILY levothyroxine 25 mcg tablet 12.5 mcg PO DAILY@0600 pantoprazole 40 mg tablet,delayed release (DR/EC) 40 mg PO DAILY@1200 famotidine [Pepcid] 40 mg tablet 40 mg PO BEDTIME PRN (Reason: Heartburn) amlodipine 10 mg tablet 5 mg PO DAILY simethicone 180 mg capsule 180 mg PO BID fluticasone propion-salmeterol [Advair Diskus] 500-50 mcg/dose blister with device 1 ea INHALATION BID olmesartan 40 mg tablet 40 mg PO DAILY omega-3 acid ethyl esters 1 gram capsule 1 cap PO BID albuterol sulfate [Ventolin HFA] 90 mcg/actuation HFA aerosol inhaler 2 puff INHALATION Q6H PRN (Reason: wheezing) lidocaine 5 % adhesive patch,medicated 1 patch topical DAILY PRN (Reason: Pain) Rx Instructions: on for 12 h off for 12 h methadone 10 mg/mL Concentrate 60 mg PO DAILY Qty: 1 0RF Rx Instructions: [facility] methadone clinic per pt- dose reduced during hospitalization to 60 mg perphenazine 4 mg tablet 4 mg PO BEDTIME sertraline 25 mg tablet 25 mg PO DAILY@1200 Incruse Ellipta 62.5 mcg/actuation blister with device 1 inh inhalation DAILY levothyroxine 200 mcg tablet 200 mcg PO DAILY@0600 Print Language: Kyrgyz
[2023-12-07 15:51] LABS: INTERNATIONAL NORM RATIO 0.9 (0.9-1.1); Prothrombin Time 10.9 SEC (11.1-13.3)
[2023-12-07 16:03] LABS: MANUAL DIFF FLAG NO
[2023-12-07 16:06] LABS: Basophils Percent Auto 0.4 % (0-2); Eosinophils Absolute Auto 0.2 X10*3/uL (0.0-0.4); Eosinophils Percent Auto 2.5 % (0-4); Hematocrit 44.8 % (37.0-47.0); Hemoglobin 14.1 g/dl (12.0-16.0); Imm Gran Abs Auto 0.03 X10*3/uL (0.00-0.03); Imm Gran Pct Auto 0.4 % (0.0-0.4); Lymphocytes Absolute Auto 2.5 X10*3/uL (1.2-4.9); Lymphocytes Percent Auto 33.3 % (20-40); Mean Corpuscular HGB Conc 31.5 g/dl (31.0-35.0); Mean Corpuscular Hemoglobin 28.3 pg (27.0-33.0); Mean Corpuscular Volume 89.8 fL (80.0-98.0); Mean Platelet Volume 10.6 fL (9.4-12.3); Monocytes Absolute Auto 0.7 X10*3/uL (0.1-1.2); Monocytes Percent Auto 9.2 % (2-11); Neutrophils Absolute Auto 4.1 x10*3/uL (2.0-8.3); Neutrophils Percent Auto 54.2 % (45-73); Platelet Count 145 X10*3/uL (160-400); Red Blood Count 4.99 X10*6/uL (4.20-5.50); Red Cell Distribution Width 14.6 % (11.0-16.0); White Blood Count 7.6 X10*3/uL (4.8-10.8)
[2023-12-07 16:14] LABS: Lactic Acid 0.9 mmol/L (0.5-2.0)
[2023-12-07 16:19] LABS: VBG Base Excess 14.5 mmol/L; VBG HCO3 45 mmol/L (22-26); VBG pCO2 84 mmHg; VBG pH 7.33 (7.32-7.43); VBG pO2 56 mmHg
[2023-12-07] MEDS: Albuterol Sulfate 5 MG, Albuterol/Iprat 2.5/0.5MG 3 ML 3 ML INHALE (16:20)
[2023-12-07 16:24] LABS: Influenza A PCR NEGATIVE (Negative); Influenza B PCR NEGATIVE (Negative); Resp Syncy Virus RNA Qual PCR NEGATIVE (Negative); SARS COV2 PCR INHOUSE POSITIVE (Negative)
[2023-12-07 16:34] LABS: B Type Natriuretic Peptide 12 pg/mL (<100)
[2023-12-07 16:40] LABS: Troponin-I High Sensitivity < 2.7 ng/L (<3.5-17.0)
[2023-12-07 16:44] LABS: Alanine Aminotransferase 41 U/L (0-31); Albumin Level 4.1 g/dL (3.5-5.0); Alkaline Phosphatase 109 U/L (39-117); Anion Gap 8 (12-20); Aspartate Amino Transferase 27 U/L (5-31); Bilirubin Direct 0.1 mg/dL (0.0-0.5); Bilirubin Total 0.4 mg/dL (0.0-1.0); Blood Urea Nitrogen 14 mg/dL (9-16); C Reactive Protein 0.78 mg/dL (< or = 0.50); Calcium 9.6 mg/dL (8.4-10.2); Carbon Dioxide 42 mmol/L (22-29); Chloride 92 mmol/L (96-108); Creatinine Clr Calc Pharmacy 92.9; Estimated Glomerular Filt Rate > 60; Ethanol < 10 mg/dL; Glucose Random 116 mg/dL (60-115); Magnesium 2.3 mg/dL (1.6-2.6); Potassium 4.7 mmol/L (3.3-5.1); Sodium 137 mmol/L (135-145); Total Protein 7.7 g/dL (6.5-8.0)
[2023-12-07 16:54] LABS: Venous Blood Gas Refer to POC result
[2023-12-07] MEDS: methylPREDNISolone Sod Succ 125 MG/2 ML VIAL 80 MG IVPUSH (18:16)
[2023-12-07] MEDS: Azithromycin 500 MG in 0.9 % Sodium Chloride 250 ML 125 MG IV (18:22)
[2023-12-07] MEDS: Lidocaine 4 % Patch ADH..PATCH 2 PATCH TRANSDERMA (20:49)
[2023-12-07 20:58] LABS: Venous Blood Gas Refer to POC result
[2023-12-07 20:58] LABS: VBG Base Excess 12.5 mmol/L; VBG HCO3 42 mmol/L (22-26); VBG pCO2 78 mmHg; VBG pH 7.34 (7.32-7.43); VBG pO2 47 mmHg
--- NOTE | 2023-12-07 22:36 | P.HPCC_ITS ---
History of Present Illness Date of Service: 12/07/23 Attending physician on admission: Miki Johnson Chief Complaint: Dyspnea The patient is a 57-year-old occitan speaking female with a past medical history of COPD on home 02 at 4-6L,? hepatitis C, cirrhosis,? hypertension, hypothyroidism, hyperlipidemia, Substance abuse (on methadone), and tobacco use? who presented to the emergency? department with dyspnea.? Patient presented to the emergency department with worning? dyspnea x 2 days. Reported cough, productive yellow sputum and possible fever. Also no improvement with nebulizer machine ? On arrival to the emergency department patient was? placed on BiPAP due to work of breathing,?? ?Laboratory data was only significant for positive COVID test ED course:?? She received albuterol, Solu-Medrol 80,? albuterol treatment and azithromycin 500 Patient admitted to ICU for hemodynamic monitoring of acute hypoxic and hypercapnic respiratory failure secondary to viral infection with COVID requiring BiPAP support Review of Systems 2 Review of Systems: Yes all other systems are reviewed and are negative PMFSH Past Medical History Medical History (Updated 12/07/23 @ 22:26 by Ed Larson MD) COPD (chronic obstructive pulmonary disease) Methadone dependence Alcoholic cirrhosis Hepatitis C Pulmonary edema Polysubstance abuse Hypertension Acute and chronic respiratory failure Hypotension Respiratory failure Acute respiratory failure, unspecified whether with hypoxia or hypercapnia Hyperlipidemia Psychosis Hypoxia Acute exacerbation of chronic obstructive airways disease HTN (hypertension) Hypothyroid COPD (chronic obstructive pulmonary disease) Family History Family History Father HTN (hypertension) Mother Gastritis Ovarian cancer Arthritis Son Thyroid disease Other Hypothyroid Social History Social History Household Members: Unknown / Unable to assess Household Members Other:: 1 Housing: Unknown / Unable to assess Do you presently have visiting nurse or other home services: Yes Alcohol intake: current Alcohol intake frequency: does not drink Patient Tobacco Use Status: Tobacco use Unknown Tobacco use type: Cigarette Cigarette Packs Per Day: 1 Cigarettes Per Day: 10 Years Smoked: 30 Smoked in Last 30 Days: No e-Cigarette/Vaping Use: Never Used Second Hand Smoke Exposure: No Use of substances other than those prescribed or required for medical reasons: No Substance Use Type: Heroin Currently Displaying Signs/Symptoms of Drug Intoxication Withdrawal: No Advance Directives: Yes Advance Directives on File: Yes Advance Directives Date on File: 08/18/23 Do you have a plan to hurt others: No Plan Recently lost weight without trying: No Patient : No service: No Current occupational status: unemployed Meds Allergies Allergy/AdvReac Type Severity Reaction Status Date / Time Penicillins [PENICILLINS] Allergy Unknown RED ITCHY Verified 12/07/23 15:12 RASH SEAFOOD Allergy Unknown FEVER Uncoded 12/07/23 15:12 SWELLING Active Medications: Current Medications Albuterol Sulfate (Albuterol Sulfate (0.083%) 2.5 Mg/3 Ml Vial.Neb) 2.5 mg INHALE Q4H PRN PRN Reason: Shortness of Breath/Wheezing Albuterol/Ipratropium (Albuterol/Iprat 2.5/0.5mg 3 Ml Ampul.Neb) 3 ml INHALE RQ4H WHILE AWAKE MAYRA Enoxaparin Sodium (Enoxaparin Sodium 40 Mg/0.4 Ml Syringe) 40 mg SUBCUT Q24H MAYRA Methylprednisolone Sodium Succinate (Methylprednisolone Sod Succ 40 Mg/Ml Vial) 40 mg IVPUSH Q12H COUNT INCLUDES THE [facility] Home Medications ?Medication ?Instructions ?Recorded ?Confirmed ?Last Taken ?Type rosuvastatin 20 mg tablet 20 mg PO BEDTIME 03/11/20 10/26/23 08/15/23 History perphenazine 4 mg tablet 4 mg PO BEDTIME 09/24/21 10/26/23 08/15/23 History levothyroxine 200 mcg tablet 200 mcg PO DAILY@0600 10/01/22 10/26/23 08/15/23 History sertraline 25 mg tablet 25 mg PO DAILY@1200 10/01/22 10/26/23 08/15/23 History umeclidinium 62.5 mcg/actuation 1 inh inhalation DAILY 10/01/22 10/26/23 08/15/23 History blister powder for inhalation (Incruse Ellipta) hydroxyzine pamoate 50 mg capsule 50 mg PO BID PRN Itching or anxiety 04/20/23 10/26/23 Unknown History ipratropium 0.5 mg-albuterol 3 mg 3 ml inhalation QID PRN wheezing 04/20/23 10/26/23 Unknown History (2.5 mg base)/3 mL nebulization soln sertraline 100 mg tablet 100 mg PO DAILY@1200 04/20/23 10/26/23 08/15/23 History docusate sodium 100 mg capsule 100 mg PO BID constipation 07/01/23 10/26/23 08/15/23 History metformin 500 mg tablet,extended 500 mg PO DAILY@1800 07/01/23 10/26/23 08/15/23 History release 24 hr sennosides 8.6 mg tablet (senna) 17.2 mg PO BEDTIME PRN constipation 07/01/23 10/26/23 Unknown History famotidine 40 mg tablet (Pepcid) 40 mg PO BEDTIME PRN Heartburn 08/16/23 10/26/23 Unknown History furosemide 20 mg tablet 20 mg PO DAILY 08/16/23 10/26/23 08/15/23 History levothyroxine 25 mcg tablet 12.5 mcg PO DAILY@0600 08/16/23 10/26/23 08/15/23 History pantoprazole 40 mg tablet,delayed 40 mg PO DAILY@1200 08/16/23 10/26/23 08/15/23 History release amlodipine 10 mg tablet 5 mg PO DAILY 09/03/23 10/26/23 Unknown History albuterol sulfate 90 mcg/actuation 2 puff inhalation Q6H PRN wheezing 10/06/23 10/26/23 Unknown History aerosol inhaler (Ventolin HFA) fluticasone 500 mcg-salmeterol 50 1 ea inhalation BID 10/06/23 10/26/23 Unknown History mcg/dose blistr powdr for inhalation (Advair Diskus) olmesartan 40 mg tablet 40 mg PO DAILY 10/06/23 10/26/23 Unknown History omega-3 acid ethyl esters 1 gram 1 cap PO BID 10/06/23 10/26/23 Unknown History capsule simethicone 180 mg capsule 180 mg PO BID 10/06/23 10/26/23 Unknown History lidocaine 5 % topical patch 1 patch topical DAILY PRN Pain 10/26/23 10/26/23 Unknown History acetaminophen 500 mg tablet 1,000 mg PO Q8H PRN moderate pain 12/08/23 Unknown History hydrocortisone 2.5 % topical cream appl topical QD-BID 12/08/23 Unknown History varenicline 0.5 mg (11)-1 mg (42) ea PO DIRECTED 12/08/23 Unknown History tablets in a dose pack Physical Exam 2 Vital Signs: Vital Signs: Last Vital Signs Temp 97.7 F 12/07/23 18:28 Pulse 89 12/07/23 20:00 Resp 20 12/07/23 22:03 BP 101/52 L 12/07/23 18:28 Pulse Ox 93 12/07/23 20:00 O2 Del Method BiPAP 12/07/23 20:00 Oxygen Flow Rate 11 12/07/23 15:06 BMI result Body Mass Index 27.4 ?General:? Alert oriented x3, speaking in full sentences ?HEENT:? Head is normocephalic, atraumatic, pupils equal round reactive to light accommodation bilaterally.? Extraocular movements appear intact.? Buccal mucosa is dry, Neck is supple ?Cardiac:? Clear S1-S2, no murmurs rubs or gallops. ?Pulmonary:? Expiratory wheezing throughout. On High flow 50/50% ?Abdomen:? ?Abdomen soft, non-tender, non-distended. Normal bowel sounds. No pulsatile mass. No hepatosplenomegaly. ?Musculoskeletal:? The strength is 5/5 bilaterally and throughout all 4 extremities.? Gait not assessed at this point. ?Neurologic:? cranial nerves 2-12 are grossly intact.? No focal deficits noted.Motor strength as above.?? ?Skin:? Scattered bruising throughout extremities, skin is dry Vascular:? 2+ pulses upper and lower extremities distally.? Results Labs 12/08/23 05:09 12/08/23 05:09 Labs: Laboratory Results - last 24 hr 12/07/23 12/07/23 12/07/23 15:39 15:50 15:50 MCV MCH MCHC RDW Plt Count MPV Immature Gran % (Auto) Neut % (Auto) Lymph % (Auto) [place] % (Auto) Eos % (Auto) Baso % (Auto) Lymph # (Auto) [place] # (Auto) Eos # (Auto) Baso # (Auto) Abs Immat Gran (auto) Absolute Neuts (auto) Absolute Nucleated RBC Nucleated RBC % (auto) PT 10.9 L INR 0.9 VBG pH VBG pCO2 VBG pO2 VBG HCO3 VBG O2 Saturation VBG Base Excess Anion Gap 8 L Estim Creat Clear Calc 92.9 Estimated GFR > 60 Random Glucose 116 H Lactic Acid 0.9 Calcium 9.6 Magnesium 2.3 Total Bilirubin 0.4 Direct Bilirubin 0.1 AST 27 ALT 41 H Alkaline Phosphatase 109 Troponin I High Sens C-Reactive Protein 0.78 H B-Natriuretic Peptide 12 Total Protein 7.7 Albumin 4.1 Ethyl Alcohol < 10 Cancelled Influenza Type A (PCR) NEGATIVE Influenza Type B (PCR) NEGATIVE RSV RNA Qual (PCR) NEGATIVE SARS-CoV-2 RNA (RT-PCR) POSITIVE A 12/07/23 12/07/23 12/07/23 15:51 15:58 16:00 MCV 89.8 MCH 28.3 MCHC 31.5 RDW 14.6 Plt Count 145 L MPV 10.6 Immature Gran % (Auto) 0.4 Neut % (Auto) 54.2 Lymph % (Auto) 33.3 [place] % (Auto) 9.2 Eos % (Auto) 2.5 Baso % (Auto) 0.4 Lymph # (Auto) 2.5 [place] # (Auto) 0.7 Eos # (Auto) 0.2 Baso # (Auto) 0.0 Abs Immat Gran (auto) 0.03 Absolute Neuts (auto) 4.1 Absolute Nucleated RBC 0.000 Nucleated RBC % (auto) 0.0 PT INR VBG pH 7.33 VBG pCO2 84 VBG pO2 56 VBG HCO3 45 H VBG O2 Saturation 89.0 VBG Base Excess 14.5 Anion Gap Estim Creat Clear Calc Estimated GFR Random Glucose Lactic Acid Calcium Magnesium Total Bilirubin Direct Bilirubin AST ALT Alkaline Phosphatase Troponin I High Sens < 2.7 C-Reactive Protein B-Natriuretic Peptide Total Protein Albumin Ethyl Alcohol Influenza Type A (PCR) Influenza Type B (PCR) RSV RNA Qual (PCR) SARS-CoV-2 RNA (RT-PCR) 12/07/23 20:55 MCV MCH MCHC RDW Plt Count MPV Immature Gran % (Auto) Neut % (Auto) Lymph % (Auto) [place] % (Auto) Eos % (Auto) Baso % (Auto) Lymph # (Auto) [place] # (Auto) Eos # (Auto) Baso # (Auto) Abs Immat Gran (auto) Absolute Neuts (auto) Absolute Nucleated RBC Nucleated RBC % (auto) PT INR VBG pH 7.34 VBG pCO2 78 VBG pO2 47 VBG HCO3 42 H VBG O2 Saturation 81.0 VBG Base Excess 12.5 Anion Gap Estim Creat Clear Calc Estimated GFR Random Glucose Lactic Acid Calcium Magnesium Total Bilirubin Direct Bilirubin AST ALT Alkaline Phosphatase Troponin I High Sens C-Reactive Protein B-Natriuretic Peptide Total Protein Albumin Ethyl Alcohol Influenza Type A (PCR) Influenza Type B (PCR) RSV RNA Qual (PCR) SARS-CoV-2 RNA (RT-PCR) Imaging Radiologist's Impressions: Impressions Chest X-Ray 12/07/23 15:10 IMPRESSION: Emphysema. Left basilar pleural and parenchymal disease similar. Electronically signed by: Kwadwo Grijalva MD 12/07/2023 06:03 PM EDT RP Assessment and Plan (1) Acute hypoxic on chronic hypercapnic respiratory failure: Status: Acute (2) COVID: Status: Acute (3) Acute exacerbation of chronic obstructive pulmonary disease: Status: Acute (4) Pulmonary edema: Status: Acute Plan 57-year-old female with a past medical history of COPD on home 02 at 4-6L,? hepatitis C, cirrhosis,? hypertension, hypothyroidism, hyperlipidemia, Substance abuse (on methadone), and tobacco use ,admitted for acute hypercapnic and hypoxic respiratory failure secondary to? COVID-19 infection requiring BiPAP support? Plan: Neuro:? No acute issues. Cardiac:?? Pulmonary edema:? chest x-ray with evidence of some pulmonary congestion.? Will give diamox as her serum bicarb is elevated.? Monitor for diuresing.? Hypotesion, she is mentating, alert x 3, likely from diuresing, no evidence of sepsis? Pulmonary:?? Acute hypoxic and hypercapnic respiratory failure secondary to? COVID-19? viral illness and COPD exacerbation. ? received systemic glucocorticoids in ED. Will cont? systemic? glucocorticoids, nebulized bronchodilators, and cont azithromacin for copd exacerbation. Transitioned to high flow,? Keep 02 sat 88- 93% Renal:? No acute issues.?? Endo:? No acute issues.?? GI:?? No acute issues ID:? ?No acute issues Heme/Onc:? No acute issues. Psych:? ? no acute issues Miscellaneous:? No acute issues. Prophylaxis:? lovenox? Diet:? NPO while on BIPAP Critical care time spent:? 60 minutes
--- NOTE | 2023-12-07 22:48 | PC.NURSE ---
Report giving to ICU. Pt will be transported to room 262.
--- NOTE | 2023-12-07 23:20 | PC.NURSE ---
Pt reports hot sensation to lower back where lidocaine patches are placed, redness noted. Patches removed.
[2023-12-07] MEDS: Enoxaparin Sodium 40 MG/0.4 ML SYRINGE SUBCUT (23:25)
[2023-12-07] MEDS: acetaZOLAMIDE sodium 500 MG VIAL IVPUSH (23:25)
[2023-12-08] VITALS (19 sets, daily range): BP systolic 108–160; BP diastolic 54–95; PULSE 80–96; RESP 14–24; TEMP 35.9–36.9; O2SAT 88–95; BMI 27.8
[2023-12-08 05:23] LABS: VBG Base Excess 7.8 mmol/L; VBG HCO3 35 mmol/L (22-26); VBG pCO2 58 mmHg; VBG pH 7.38 (7.32-7.43); VBG pO2 60 mmHg
[2023-12-08 05:26] LABS: Venous Blood Gas Refer to POC result
[2023-12-08 05:46] LABS: MANUAL DIFF FLAG NO
[2023-12-08 05:47] LABS: Basophils Percent Auto 0.2 % (0-2); Hemoglobin 14.1 g/dl (12.0-16.0); Imm Gran Abs Auto 0.03 X10*3/uL (0.00-0.03); Imm Gran Pct Auto 0.5 % (0.0-0.4); Lymphocytes Absolute Auto 1.4 X10*3/uL (1.2-4.9); Lymphocytes Percent Auto 24.6 % (20-40); Mean Corpuscular HGB Conc 31.3 g/dl (31.0-35.0); Mean Corpuscular Hemoglobin 28.4 pg (27.0-33.0); Mean Corpuscular Volume 90.7 fL (80.0-98.0); Mean Platelet Volume 11.8 fL (9.4-12.3); Monocytes Absolute Auto 0.1 X10*3/uL (0.1-1.2); Monocytes Percent Auto 2.2 % (2-11); Neutrophils Percent Auto 72.5 % (45-73); Platelet Count 150 X10*3/uL (160-400); Red Blood Count 4.96 X10*6/uL (4.20-5.50); Red Cell Distribution Width 14.6 % (11.0-16.0); White Blood Count 5.5 X10*3/uL (4.8-10.8)
[2023-12-08 06:06] LABS: Albumin Level 3.9 g/dL (3.5-5.0); Anion Gap 14 (12-20); Blood Urea Nitrogen 18 mg/dL (9-16); Calcium 9.3 mg/dL (8.4-10.2); Carbon Dioxide 30 mmol/L (22-29); Chloride 97 mmol/L (96-108); Creatinine Clr Calc Pharmacy 93.4; Estimated Glomerular Filt Rate > 60; Glucose Random 175 mg/dL (60-115); Magnesium 2.5 mg/dL (1.6-2.6); Sodium 137 mmol/L (135-145)
[2023-12-08 06:48] LABS: Amphetamine Screen Urine Not Detected (Not Detect); Barbiturates, Urine Not Detected (Not Detect); Benzodiazepines Screen Urine Not Detected (Not Detect); Buprenorphine Scr Not Detected (Not Detect); Cannabinoid Screen Urine Not Detected (Not Detect); Cocaine Screen Urine Not Detected (Not Detect); Fentanyl, urine Not Detected (Not Detect); Methadone Screen, Urine Positive (Not Detect); Opiate Screen Urine Not Detected (Not Detect); Oxycodone Screen Urine Not Detected (Not Detect); Phencyclidine Screen Urine Not Detected (Not Detect)
--- NOTE | 2023-12-08 06:52 | HE.PHANOTE ---
METHADONE CONFIRMATION FORM PATIENT GOT 60MG FROM [facility] ON 12/06 @ 0800
[2023-12-08] MEDS: Albuterol/Iprat 2.5/0.5MG 3 ML AMPUL.NEB INHALE ×4 (07:43→18:45)
[2023-12-08] MEDS: methylPREDNISolone Sod Succ 40 MG/ML VIAL IVPUSH ×2 (07:47→22:00)
[2023-12-08] MEDS: methADONE HCl 20 MG/2 ML ORAL.CONC 60 MG PO (07:47)
[2023-12-08] MEDS: Acetaminophen 325 MG TABLET 650 MG PO (08:08)
--- NOTE | 2023-12-08 09:58 | P.PNCC_ITS ---
Subjective Subjective Date of Service: 12/08/23 Interval History: [age] year old lady with underlying COPD on home oxygen at 4-6 L, hepatitis-C,, hypertension, hypothyroidism, substance abuse on methadone admitted on 12/07/2023 with worsening dyspnea over several days. On ER evaluation patient with acute on chronic hypoxic respiratory failure secondary to COVID-19 infection briefly requiring BiPAP support, titrated to high-flow nasal cannula and admitted to the intensive care unit for close monitoring. No events overnight. Critical Care Time (minutes): 0 Physical Exam 2 Vital Signs: Vital Signs: Last Vital Signs Temp 98.4 F 12/08/23 08:00 Pulse 96 12/08/23 08:00 Resp 16 12/08/23 07:44 BP 114/54 L 12/08/23 08:00 Pulse Ox 90 L 12/08/23 08:00 O2 Del Method High Flow Nasal C annula 12/08/23 08:00 O2 Flow Rate 45 12/08/23 08:00 FiO2 50 12/08/23 08:00 Oxygen Flow Rate 11 12/07/23 15:06 BMI result Body Mass Index 27.8 Const: General: no acute distress, alert and awake Eyes: Sclerae: sclerae normal EOM: EOMs intact bilaterally Neck: Neck: Yes no lymphadenopathy, Yes trachea midline and Yes supple Resp: Effort & Inspection: normal respiratory effort and no respiratory distress Auscultation: crackles (Bilateral) Cardio: Rate: regular rate Rhythm: regular rhythm Heart sounds: no gallops, no murmurs and no rubs GI: Palpation (GI): Soft to palpation and Other GI palpation findings present ( Nontender) Auscultation: normal bowel sounds Extrem: General: Yes no pedal edema, No clubbing and No cyanosis Objective Data Labs 12/08/23 05:09 12/08/23 05:09 Labs: Laboratory Results - last 24 hr 12/07/23 12/07/23 12/07/23 15:39 15:50 15:50 WBC RBC Hgb Hct MCV MCH MCHC RDW Plt Count MPV Immature Gran % (Auto) Neut % (Auto) Lymph % (Auto) [place] % (Auto) Eos % (Auto) Baso % (Auto) Lymph # (Auto) [place] # (Auto) Eos # (Auto) Baso # (Auto) Abs Immat Gran (auto) Absolute Neuts (auto) Absolute Nucleated RBC Nucleated RBC % (auto) PT 10.9 L INR 0.9 VBG pH VBG pCO2 VBG pO2 VBG HCO3 VBG O2 Saturation VBG Base Excess Sodium 137 Potassium 4.7 Chloride 92 L Carbon Dioxide 42 H* Anion Gap 8 L BUN 14 Creatinine 0.70 Estim Creat Clear Calc 92.9 Estimated GFR > 60 Random Glucose 116 H Lactic Acid 0.9 Calcium 9.6 Phosphorus Magnesium 2.3 Total Bilirubin 0.4 Direct Bilirubin 0.1 AST 27 ALT 41 H Alkaline Phosphatase 109 Troponin I High Sens C-Reactive Protein 0.78 H B-Natriuretic Peptide 12 Total Protein 7.7 Albumin 4.1 Urine Opiates Screen Ur Buprenorphine Scrn Ur Oxycodone Screen Urine Methadone Screen Urine Fentanyl Screen Ur Barbiturates Screen Ur Phencyclidine Scrn Ur Amphetamines Screen U Benzodiazepines Scrn Urine Cocaine Screen U Marijuana (THC) Screen Ethyl Alcohol < 10 Cancelled Influenza Type A (PCR) NEGATIVE Influenza Type B (PCR) NEGATIVE RSV RNA Qual (PCR) NEGATIVE SARS-CoV-2 RNA (RT-PCR) POSITIVE A 12/07/23 12/07/23 12/07/23 15:51 15:58 16:00 WBC 7.6 RBC 4.99 Hgb 14.1 Hct 44.8 MCV 89.8 MCH 28.3 MCHC 31.5 RDW 14.6 Plt Count 145 L MPV 10.6 Immature Gran % (Auto) 0.4 Neut % (Auto) 54.2 Lymph % (Auto) 33.3 [place] % (Auto) 9.2 Eos % (Auto) 2.5 Baso % (Auto) 0.4 Lymph # (Auto) 2.5 [place] # (Auto) 0.7 Eos # (Auto) 0.2 Baso # (Auto) 0.0 Abs Immat Gran (auto) 0.03 Absolute Neuts (auto) 4.1 Absolute Nucleated RBC 0.000 Nucleated RBC % (auto) 0.0 PT INR VBG pH 7.33 VBG pCO2 84 VBG pO2 56 VBG HCO3 45 H VBG O2 Saturation 89.0 VBG Base Excess 14.5 Sodium Potassium Chloride Carbon Dioxide Anion Gap BUN Creatinine Estim Creat Clear Calc Estimated GFR Random Glucose Lactic Acid Calcium Phosphorus Magnesium Total Bilirubin Direct Bilirubin AST ALT Alkaline Phosphatase Troponin I High Sens < 2.7 C-Reactive Protein B-Natriuretic Peptide Total Protein Albumin Urine Opiates Screen Ur Buprenorphine Scrn Ur Oxycodone Screen Urine Methadone Screen Urine Fentanyl Screen Ur Barbiturates Screen Ur Phencyclidine Scrn Ur Amphetamines Screen U Benzodiazepines Scrn Urine Cocaine Screen U Marijuana (THC) Screen Ethyl Alcohol Influenza Type A (PCR) Influenza Type B (PCR) RSV RNA Qual (PCR) SARS-CoV-2 RNA (RT-PCR) 12/07/23 12/08/23 12/08/23 20:55 05:09 05:12 WBC 5.5 RBC 4.96 Hgb 14.1 Hct 45.0 MCV 90.7 MCH 28.4 MCHC 31.3 RDW 14.6 Plt Count 150 L MPV 11.8 Immature Gran % (Auto) 0.5 H Neut % (Auto) 72.5 Lymph % (Auto) 24.6 [place] % (Auto) 2.2 Eos % (Auto) 0.0 Baso % (Auto) 0.2 Lymph # (Auto) 1.4 [place] # (Auto) 0.1 Eos # (Auto) 0.0 Baso # (Auto) 0.0 Abs Immat Gran (auto) 0.03 Absolute Neuts (auto) 4.0 Absolute Nucleated RBC 0.000 Nucleated RBC % (auto) 0.0 PT INR VBG pH 7.34 7.38 VBG pCO2 78 58 VBG pO2 47 60 VBG HCO3 42 H 35 H VBG O2 Saturation 81.0 91.0 VBG Base Excess 12.5 7.8 Sodium 137 Potassium 4.0 Chloride 97 Carbon Dioxide 30 H Anion Gap 14 BUN 18 H Creatinine 0.70 Estim Creat Clear Calc 93.4 Estimated GFR > 60 Random Glucose 175 H Lactic Acid Calcium 9.3 Phosphorus 4.0 Magnesium 2.5 Total Bilirubin Direct Bilirubin AST ALT Alkaline Phosphatase Troponin I High Sens C-Reactive Protein B-Natriuretic Peptide Total Protein Albumin 3.9 Urine Opiates Screen Ur Buprenorphine Scrn Ur Oxycodone Screen Urine Methadone Screen Urine Fentanyl Screen Ur Barbiturates Screen Ur Phencyclidine Scrn Ur Amphetamines Screen U Benzodiazepines Scrn Urine Cocaine Screen U Marijuana (THC) Screen Ethyl Alcohol Influenza Type A (PCR) Influenza Type B (PCR) RSV RNA Qual (PCR) SARS-CoV-2 RNA (RT-PCR) 12/08/23 06:23 WBC RBC Hgb Hct MCV MCH MCHC RDW Plt Count MPV Immature Gran % (Auto) Neut % (Auto) Lymph % (Auto) [place] % (Auto) Eos % (Auto) Baso % (Auto) Lymph # (Auto) [place] # (Auto) Eos # (Auto) Baso # (Auto) Abs Immat Gran (auto) Absolute Neuts (auto) Absolute Nucleated RBC Nucleated RBC % (auto) PT INR VBG pH VBG pCO2 VBG pO2 VBG HCO3 VBG O2 Saturation VBG Base Excess Sodium Potassium Chloride Carbon Dioxide Anion Gap BUN Creatinine Estim Creat Clear Calc Estimated GFR Random Glucose Lactic Acid Calcium Phosphorus Magnesium Total Bilirubin Direct Bilirubin AST ALT Alkaline Phosphatase Troponin I High Sens C-Reactive Protein B-Natriuretic Peptide Total Protein Albumin Urine Opiates Screen Not Detected Ur Buprenorphine Scrn Not Detected Ur Oxycodone Screen Not Detected Urine Methadone Screen Positive H Urine Fentanyl Screen Not Detected Ur Barbiturates Screen Not Detected Ur Phencyclidine Scrn Not Detected Ur Amphetamines Screen Not Detected U Benzodiazepines Scrn Not Detected Urine Cocaine Screen Not Detected U Marijuana (THC) Screen Not Detected Ethyl Alcohol Influenza Type A (PCR) Influenza Type B (PCR) RSV RNA Qual (PCR) SARS-CoV-2 RNA (RT-PCR) Progress Note: A&P Assessment and plan (1) Acute on chronic respiratory failure with hypoxia and hypercapnia: Status: Resolved (2) COVID: Status: Acute (3) Alcoholic cirrhosis: Status: Acute (4) Methadone dependence: Status: Acute (5) Hepatitis C: Status: Acute (6) COPD (chronic obstructive pulmonary disease): Status: Acute Plan Assessment: 58-year-old lady with underlying COPD on 4-6 L, hep C cirrhosis, methadone dependence admitted with acute chronic hypoxic and hypercapnic respiratory failure secondary to COVID-19 initially briefly requiring BiPAP support now titrated to high-flow nasal cannula. Plan: Neuro: No acute issues. Cardiac: No acute issues. Pulmonary: Acute on chronic hypoxic and hypercapnic respiratory failure secondary to COVID-19 initially requiring BiPAP support now titrated to high- flow nasal cannula. Continue to titrate down to basal supplemental oxygen requirements of 4-6 L. maintaining O2 sat goal of 88-92%. Underlying COPD. Renal: No acute issues. Endo: No acute issues. Underlying hypothyroidism, continue Synthroid. GI: No acute issues. ID: COVID-19 with significant hypoxemia, continue with systemic glucocorticoids. Empiric azithromycin for underlying COPD exacerbation. Heme/Onc: No acute issues. Psych: No acute issues. Miscellaneous: Underlying methadone dependence, continue on methadone. Prophylaxis: Lovenox Diet: Regular Quality Stroke Does the patient have a stroke diagnosis?: No VTE Prior VTE?: No VTE Risk Level:: Medical - moderate - high VTE Device Contraindication: N/A - Device Ordered VTE Drug Contraindication: N/A - Med Ordered
--- NOTE | 2023-12-08 10:50 | P.CDIM_ITS ---
PROVIDER RESPONSE TEXT: To clarify, the appropriate diagnosis supported by the clinical indicators: Acute pulmonary edema QUERY TEXT: PHYSICIAN'S DOCUMENTATION REQUEST Date of Query: 12/08/2023 10:37 AM EDT Patient Name: Sandra Rose Admit Date: 12/08/2023 Dear Miki Johnson MD, A review of the medical record indicates additional documentation may be needed. Please review below and update the documentation accordingly. Clinical Indicators: ICU H&P 12/07/23 - Plan: Pulmonary edema, chest x-ray with evidence of some pulmonary congestion. Will give diamox as her serum bicarb is elevated. Monitor for diuresing. Based on the above, could you please provide, in the Progress Notes, further specificity regarding th e acuity of the pulmonary edema? Acute pulmonary edema Chronic pulmonary edema Other (explain) Clinically unable to determine (explain) Thank you, Naomi Alcala, CCS, CDIS Use of terms such as suspected, likely, concern for, or probable (associated with a specific diagnosi s that is being evaluated, monitored, or treated as if it exists) are acceptable and can be coded in the inpatient se tting, when documented at the time of discharge. Please use your independent medical judgment in providing your response. THIS QUERY IS PART OF THE PERMANENT MEDICAL RECORD
--- NOTE | 2023-12-08 11:57 | PHA.MEDREC ---
Pharmacy Consult ? Medication Reconciliation Pharmacy has completed the medication reconciliation. Patient had list but is a poor historian, also confirmed with [facility] who faxed medication list and claim history. Prednisone was 20mg daily x 5 days recently filled and also on list from [facility]. Patient also recently started Chantix but seems confused about dosing/taper schedule.
--- NOTE | 2023-12-08 13:59 | MHC.CM.PN ---
Pt making progress and will transfer to the medical floor today: Pt from home w/significant other: has [facility] for skilled RN visits and [facility] for Methadone. Pt has a walker and [employer] for home O2. PCP is Dr. Sears: HCP on file and verified (dtr) Pt will likely need BLS transport to home. Referred back to [facility] for continued services upon d/c. CM to follow.
[2023-12-08 16:14] LABS: Glucose, Whole Blood 215 mg/dL (60-115)
[2023-12-08] MEDS: Insulin Lispro 100 UNIT/ML 3 ML VIAL SUBCUT ×2 (16:50→22:01)
[2023-12-08 20:54] LABS: Glucose, Whole Blood 190 mg/dL (60-115)
[2023-12-08] MEDS: Famotidine 20 MG TABLET 40 MG PO (22:00)
[2023-12-08] MEDS: Furosemide 20 MG TABLET PO (22:00)
[2023-12-08] MEDS: Atorvastatin Calcium 80 MG TABLET PO (22:00)
[2023-12-08] MEDS: Azithromycin 500 MG in 0.9 % Sodium Chloride 250 ML 125 MG IV (22:01)
[2023-12-08] MEDS: Enoxaparin Sodium 40 MG/0.4 ML SYRINGE SUBCUT (22:12)
[2023-12-09] VITALS (10 sets, daily range): BP systolic 133–151; BP diastolic 70–79; PULSE 76–100; RESP 18–20; TEMP 35.9–37; O2SAT 90–95
[2023-12-09] MEDS: guaiFENesin 100 MG/5 ML 5 ML LIQUID PO (04:50)
[2023-12-09] MEDS: Levothyroxine Sodium 75 MCG TABLET 225 MCG PO (04:51)
[2023-12-09 06:31] LABS: MANUAL DIFF FLAG NO
[2023-12-09 06:35] LABS: Venous Blood Gas Refer to POC result
[2023-12-09 06:36] LABS: VBG HCO3 36 mmol/L (22-26); VBG pCO2 69 mmHg; VBG pH 7.33 (7.32-7.43); VBG pO2 78 mmHg
[2023-12-09 06:36] LABS: Basophils Percent Auto 0.2 % (0-2); Hematocrit 44.3 % (37.0-47.0); Imm Gran Abs Auto 0.05 X10*3/uL (0.00-0.03); Imm Gran Pct Auto 0.8 % (0.0-0.4); Lymphocytes Absolute Auto 1.3 X10*3/uL (1.2-4.9); Mean Corpuscular HGB Conc 31.6 g/dl (31.0-35.0); Mean Corpuscular Hemoglobin 28.4 pg (27.0-33.0); Mean Corpuscular Volume 89.9 fL (80.0-98.0); Mean Platelet Volume 10.7 fL (9.4-12.3); Monocytes Absolute Auto 0.2 X10*3/uL (0.1-1.2); Monocytes Percent Auto 3.3 % (2-11); Neutrophils Absolute Auto 4.7 x10*3/uL (2.0-8.3); Neutrophils Percent Auto 74.7 % (45-73); Platelet Count 144 X10*3/uL (160-400); Red Blood Count 4.93 X10*6/uL (4.20-5.50); Red Cell Distribution Width 14.4 % (11.0-16.0); White Blood Count 6.3 X10*3/uL (4.8-10.8)
[2023-12-09 06:53] LABS: Albumin Level 3.9 g/dL (3.5-5.0); Anion Gap 9 (12-20); Blood Urea Nitrogen 17 mg/dL (9-16); Calcium 9.3 mg/dL (8.4-10.2); Carbon Dioxide 32 mmol/L (22-29); Chloride 102 mmol/L (96-108); Creatinine Clr Calc Pharmacy 103.8; Estimated Glomerular Filt Rate > 60; Glucose Random 174 mg/dL (60-115); Magnesium 2.4 mg/dL (1.6-2.6); Phosphorus 2.5 mg/dL (2.7-4.5); Potassium 4.3 mmol/L (3.3-5.1); Sodium 139 mmol/L (135-145)
[2023-12-09 07:43] LABS: Glucose, Whole Blood 164 mg/dL (60-115)
[2023-12-09] MEDS: Albuterol/Iprat 2.5/0.5MG 3 ML AMPUL.NEB INHALE ×3 (09:19→18:36)
[2023-12-09] MEDS: methADONE HCl 20 MG/2 ML ORAL.CONC 60 MG PO (09:20)
[2023-12-09] MEDS: Furosemide 20 MG TABLET PO ×2 (09:20→22:13)
[2023-12-09] MEDS: guaiFENesin DM 600/30 1 TAB TAB.ER.12H PO ×2 (09:20→22:12)
[2023-12-09] MEDS: Acetaminophen 325 MG TABLET 650 MG PO ×2 (09:20→22:13)
[2023-12-09] MEDS: Insulin Lispro 100 UNIT/ML 3 ML VIAL SUBCUT ×4 (09:20→22:14)
[2023-12-09] MEDS: methylPREDNISolone Sod Succ 40 MG/ML VIAL IVPUSH ×2 (09:20→22:14)
--- NOTE | 2023-12-09 10:26 | P.PNIM_ITS ---
Subjective Subjective Date of Service: 12/09/23 Interval History: sob, cough, back pain Physical Exam 2 Vital Signs: Vital Signs: Last Vital Signs Temp 96.7 F L 12/09/23 08:00 Pulse 82 12/09/23 09:22 Resp 18 12/09/23 09:22 BP 133/70 12/09/23 08:00 Pulse Ox 92 12/09/23 08:00 O2 Del Method Room Air 12/09/23 08:00 O2 Flow Rate 8 12/09/23 03:59 FiO2 45 12/08/23 23:47 Oxygen Flow Rate 11 12/07/23 15:06 BMI result Body Mass Index 27.8 General: AO X 3, in acute distress Resp: wheezing bilateral, mild accessory muscles used CVS: S1,S2,RRR GI: soft, non tender, non distended Neuro: motor grossly intact, alert Objective Data Active Medications Acetaminophen (Acetaminophen 325 Mg Tablet) 650 mg PO Q6H PRN PRN Reason: Pain, Mild (Pain Scale 1-3) Last Admin: 12/09/23 09:20 Dose: 650 mg Documented By: PENNY Albuterol Sulfate (Albuterol Sulfate (0.083%) 2.5 Mg/3 Ml Vial.Neb) 2.5 mg INHALE Q4H PRN PRN Reason: Shortness of Breath/Wheezing Albuterol/Ipratropium (Albuterol/Iprat 2.5/0.5mg 3 Ml Ampul.Neb) 3 ml INHALE RQ4H WHILE AWAKE [facility] Last Admin: 12/09/23 09:19 Dose: 3 ml Documented By: YURI Amlodipine Besylate (Amlodipine Besylate 5 Mg Tablet) 5 mg PO DAILY@1200 [facility]; Protocol Atorvastatin Calcium (Atorvastatin Calcium 80 Mg Tablet) 80 mg PO BEDTIME [facility] Last Admin: 12/08/23 22:00 Dose: 80 mg Documented By: TERI Enoxaparin Sodium (Enoxaparin Sodium 40 Mg/0.4 Ml Syringe) 40 mg SUBCUT Q24H [facility] Last Admin: 12/08/23 22:12 Dose: 40 mg Documented By: TERI Famotidine (Famotidine 20 Mg Tablet) 40 mg PO BEDTIME [facility] Last Admin: 12/08/23 22:00 Dose: 40 mg Documented By: TERI Furosemide (Furosemide 20 Mg Tablet) 20 mg PO BID [facility]; Protocol Last Admin: 12/09/23 09:20 Dose: 20 mg Documented By: PENNY Glucose (Glucose Gel 15 Gm Gel..Gram.) 15 gm PO Q15M PRN; Protocol PRN Reason: per Hypoglycemia Standing Ord. Guaifenesin (Guaifenesin 100 Mg/5 Ml 5 Ml Liquid) 5 ml PO Q6H PRN PRN Reason: Cough Last Admin: 12/09/23 04:50 Dose: 5 ml Documented By: TERI Guaifenesin/Dextromethorphan (Guaifenesin Dm 600/30 1 Tab Tab.Er.12h) 1 tab PO BID [facility] Last Admin: 12/09/23 09:20 Dose: 1 tab Documented By: PENNY Hydroxyzine HCl (Hydroxyzine Hcl 25 Mg Tablet) 25 mg PO Q6H PRN PRN Reason: itch Azithromycin 500 mg/ Sodium (Chloride) 250 mls @ 125 mls/hr IV Q24H [facility] Last Infusion: 12/09/23 00:01 Dose: Infused Documented By: TERI Dextrose (D10) 250 mls @ 750 mls/hr IV Q15M PRN; Protocol PRN Reason: per Hypoglycemia Standing Ord. Insulin Human Lispro (Insulin Lispro 100 Unit/Ml 3 Ml Vial) 0 unit SUBCUT QIDACHS [facility]; Protocol Last Admin: 12/09/23 09:20 Dose: 2 unit Documented By: PENNY Levothyroxine Sodium (Levothyroxine Sodium 75 Mcg Tablet) 225 mcg PO DAILY@0600 [facility] Last Admin: 12/09/23 04:51 Dose: 225 mcg Documented By: TERI Methadone HCl (Methadone Hcl 20 Mg/2 Ml Oral.Conc) 60 mg PO DAILY [facility] Last Admin: 12/09/23 09:20 Dose: 60 mg Documented By: PENNY Co-signed By: JATINDER Methylprednisolone Sodium Succinate (Methylprednisolone Sod Succ 40 Mg/Ml Vial) 40 mg IVPUSH Q12H [facility] Last Admin: 12/09/23 09:20 Dose: 40 mg Documented By: PENNY Omeprazole (Omeprazole 20 Mg Capsule.Dr) 20 mg PO DAILY@1200 [facility] Perphenazine (Perphenazine 4 Mg Tablet) 4 mg PO BEDTIME [facility] Last Admin: 12/08/23 21:59 Dose: Not Given Documented By: TERI Non-Admin Reason: Patient Refused Senna (Sennosides 8.6 Mg Tablet) 17.2 mg PO BEDTIME PRN PRN Reason: constipation Sertraline HCl (Sertraline Hcl 100 Mg Tablet) 100 mg PO DAILY@1200 [facility] Sertraline HCl (Sertraline Hcl 25 Mg Tablet) 25 mg PO DAILY@1200 [facility] Sodium Chloride (Sodium Chloride 0.65 % Nasal 44 Ml Sprbtl) 1 spray NOSTRIL-B Q1H PRN PRN Reason: Dryness Labs 12/09/23 06:26 12/09/23 06:26 Labs: Laboratory Results - last 24 hr 12/08/23 12/08/23 12/09/23 16:11 20:30 06:26 MCV 89.9 MCH 28.4 MCHC 31.6 RDW 14.4 Plt Count 144 L MPV 10.7 Immature Gran % (Auto) 0.8 H Neut % (Auto) 74.7 H Lymph % (Auto) 21.0 Cache % (Auto) 3.3 Eos % (Auto) 0.0 Baso % (Auto) 0.2 Lymph # (Auto) 1.3 Cache # (Auto) 0.2 Eos # (Auto) 0.0 Baso # (Auto) 0.0 Abs Immat Gran (auto) 0.05 H Absolute Neuts (auto) 4.7 Absolute Nucleated RBC 0.000 Nucleated RBC % (auto) 0.0 VBG pH VBG pCO2 VBG pO2 VBG HCO3 VBG O2 Saturation VBG Base Excess Anion Gap 9 L Estim Creat Clear Calc 103.8 Estimated GFR > 60 POC Glucose 215 H 190 H Random Glucose 174 H Calcium 9.3 Phosphorus 2.5 L Magnesium 2.4 Albumin 3.9 12/09/23 12/09/23 06:32 07:05 MCV MCH MCHC RDW Plt Count MPV Immature Gran % (Auto) Neut % (Auto) Lymph % (Auto) Cache % (Auto) Eos % (Auto) Baso % (Auto) Lymph # (Auto) Cache # (Auto) Eos # (Auto) Baso # (Auto) Abs Immat Gran (auto) Absolute Neuts (auto) Absolute Nucleated RBC Nucleated RBC % (auto) VBG pH 7.33 VBG pCO2 69 VBG pO2 78 VBG HCO3 36 H VBG O2 Saturation 97.0 VBG Base Excess 8.0 Anion Gap Estim Creat Clear Calc Estimated GFR POC Glucose 164 H Random Glucose Calcium Phosphorus Magnesium Albumin Microbiology Microbiology Results: Microbiology 12/07/23 15:51 Blood Culture - Preliminary Blood - Venous No growth after 24 hours. 12/07/23 15:39 Blood Culture - Preliminary Blood - Venous No growth after 24 hours. Assessment and Plan (1) Acute on chronic respiratory failure with hypercapnia: Status: Acute Plan 58F PMH opiate dependence, hepatitis-C with cirrhosis, chronic hypoxic respiratory failure due to COPD on 4-6 L home, hypothyroid, hyperlipidemia presented 12/07/23 with shortness of breath, found to be positive for COVID. Required BiPAP for work of breathing so admitted to ICU, treated with steroids nebs and azithromycin and now downgraded to medical floor 12/08/23. Acute on chronic hypoxic and hypercapnic failure secondary to COPD with acute decompensation due to COVID Continue steroids and bronchodilators, continue to wean O2, empiric azithromycin Hypothyroid Continue levothyroxine Opiate depend Continue methadone hcv with cirrhosis appears compensated mood disorder trilafon, zoloft htn amlodipine dvt prophylaxis - lovenox full code reason for continued hospitalization:still wheezy, sob, o2 requirements above baseline Quality Stroke Does the patient have a stroke diagnosis?: No VTE Prior VTE?: No VTE Risk Level:: Medical - moderate - high VTE Device Contraindication: N/A - Device Ordered VTE Drug Contraindication: N/A - Med Ordered
[2023-12-09] MEDS: Albuterol Sulfate (0.083%) 2.5 MG/3 ML VIAL.NEB INHALE (11:24)
[2023-12-09 11:36] LABS: Glucose, Whole Blood 260 mg/dL (60-115)
[2023-12-09] MEDS: Omeprazole 20 MG CAPSULE.DR PO (12:39)
[2023-12-09] MEDS: amLODIPine Besylate 5 MG TABLET PO (12:39)
[2023-12-09] MEDS: Sertraline HCL 25 MG TABLET PO (12:40)
[2023-12-09] MEDS: Sertraline HCL 100 MG TABLET PO (12:40)
--- NOTE | 2023-12-09 13:47 | MHC.CM.PN ---
EMR REVIEWED, PT W/ARF/COPD/COVID, PT ON HI FLOW O2, NO PLAN FOR DC, CM WILL CONT TO FOLLOW DC NEEDS.
[2023-12-09 16:04] LABS: Glucose, Whole Blood 194 mg/dL (60-115)
[2023-12-09 21:26] LABS: Glucose, Whole Blood 250 mg/dL (60-115)
[2023-12-09] MEDS: Atorvastatin Calcium 80 MG TABLET PO (22:12)
[2023-12-09] MEDS: Famotidine 20 MG TABLET 40 MG PO (22:13)
[2023-12-09] MEDS: Azithromycin 500 MG in 0.9 % Sodium Chloride 250 ML 125 MG IV (22:14)
[2023-12-09] MEDS: Enoxaparin Sodium 40 MG/0.4 ML SYRINGE SUBCUT (22:16)
[2023-12-09] MEDS: Sennosides 8.6 MG TABLET 17.2 MG PO (22:23)
[2023-12-10] VITALS (10 sets, daily range): BP systolic 136–159; BP diastolic 72–93; PULSE 84–96; RESP 16–22; TEMP 36.1–36.7; O2SAT 90–94
[2023-12-10] MEDS: Levothyroxine Sodium 75 MCG TABLET 225 MCG PO (06:07)
[2023-12-10 06:58] LABS: Hematocrit 42.8 % (37.0-47.0); Hemoglobin 13.8 g/dl (12.0-16.0); Mean Corpuscular HGB Conc 32.2 g/dl (31.0-35.0); Mean Corpuscular Hemoglobin 28.2 pg (27.0-33.0); Mean Corpuscular Volume 87.5 fL (80.0-98.0); Mean Platelet Volume 10.5 fL (9.4-12.3); Platelet Count 167 X10*3/uL (160-400); Red Blood Count 4.89 X10*6/uL (4.20-5.50); Red Cell Distribution Width 14.2 % (11.0-16.0); White Blood Count 6.9 X10*3/uL (4.8-10.8)
[2023-12-10 07:23] LABS: Anion Gap 12 (12-20); Blood Urea Nitrogen 14 mg/dL (9-16); Calcium 9.6 mg/dL (8.4-10.2); Carbon Dioxide 36 mmol/L (22-29); Chloride 97 mmol/L (96-108); Creatinine Clr Calc Pharmacy 100.6; Estimated Glomerular Filt Rate > 60; Glucose Fasting 178 mg/dL (60-99); Potassium 3.9 mmol/L (3.3-5.1); Sodium 141 mmol/L (135-145)
[2023-12-10 07:39] LABS: Glucose, Whole Blood 164 mg/dL (60-115)
[2023-12-10] MEDS: Albuterol/Iprat 2.5/0.5MG 3 ML AMPUL.NEB INHALE ×4 (08:03→18:56)
[2023-12-10] MEDS: Furosemide 20 MG TABLET PO ×2 (08:19→21:06)
[2023-12-10] MEDS: Insulin Lispro 100 UNIT/ML 3 ML VIAL SUBCUT ×4 (08:19→21:14)
[2023-12-10] MEDS: Acetaminophen 325 MG TABLET 650 MG PO ×2 (08:19→21:06)
[2023-12-10] MEDS: guaiFENesin DM 600/30 1 TAB TAB.ER.12H PO ×2 (08:19→21:06)
[2023-12-10] MEDS: methylPREDNISolone Sod Succ 40 MG/ML VIAL IVPUSH ×2 (08:19→21:06)
[2023-12-10] MEDS: methADONE HCl 20 MG/2 ML ORAL.CONC 60 MG PO (08:20)
--- NOTE | 2023-12-10 10:52 | HO.PM.IMPN ---
Subjective Subjective Date of Service: 12/10/23 Interval History: sob, cough, back pain overall much better Physical Exam Vital Signs: Vital Signs: Last Vital Signs Temp 97.0 F 12/10/23 07:57 Pulse 96 12/10/23 08:03 Resp 18 12/10/23 08:03 BP 143/93 H 12/10/23 07:57 Pulse Ox 93 12/10/23 07:57 O2 Del Method Room Air 12/10/23 07:57 O2 Flow Rate 6 12/10/23 03:36 FiO2 50 12/09/23 16:00 Oxygen Flow Rate 11 12/07/23 15:06 BMI result Body Mass Index 27.8 General: AO X 3, in acute distress Resp: wheezing bilateral, mild accessory muscles used CVS: S1,S2,RRR GI: soft, non tender, non distended Neuro: motor grossly intact, alert Objective Data Active Medications Acetaminophen (Acetaminophen 325 Mg Tablet) 650 mg PO Q6H PRN PRN Reason: Pain, Mild (Pain Scale 1-3) Last Admin: 12/10/23 08:19 Dose: 650 mg Documented By: PENNY Albuterol Sulfate (Albuterol Sulfate (0.083%) 2.5 Mg/3 Ml Vial.Neb) 2.5 mg INHALE Q4H PRN PRN Reason: Shortness of Breath/Wheezing Last Admin: 12/09/23 11:24 Dose: 2.5 mg Documented By: JUVE Albuterol/Ipratropium (Albuterol/Iprat 2.5/0.5mg 3 Ml Ampul.Neb) 3 ml INHALE RQ4H WHILE AWAKE [facility] Last Admin: 12/10/23 08:03 Dose: 3 ml Documented By: ANASTASIIA Amlodipine Besylate (Amlodipine Besylate 5 Mg Tablet) 5 mg PO DAILY@1200 [facility]; Protocol Last Admin: 12/09/23 12:39 Dose: 5 mg Documented By: PENNY Atorvastatin Calcium (Atorvastatin Calcium 80 Mg Tablet) 80 mg PO BEDTIME [facility] Last Admin: 12/09/23 22:12 Dose: 80 mg Documented By: KIMBERLEY Enoxaparin Sodium (Enoxaparin Sodium 40 Mg/0.4 Ml Syringe) 40 mg SUBCUT Q24H [facility] Last Admin: 12/09/23 22:16 Dose: 40 mg Documented By: KIMBERLEY Famotidine (Famotidine 20 Mg Tablet) 40 mg PO BEDTIME [facility] Last Admin: 12/09/23 22:13 Dose: 40 mg Documented By: KIMBERLEY Furosemide (Furosemide 20 Mg Tablet) 20 mg PO BID [facility]; Protocol Last Admin: 12/10/23 08:19 Dose: 20 mg Documented By: PENNY Glucose (Glucose Gel 15 Gm Gel..Gram.) 15 gm PO Q15M PRN; Protocol PRN Reason: per Hypoglycemia Standing Ord. Guaifenesin (Guaifenesin 100 Mg/5 Ml 5 Ml Liquid) 5 ml PO Q6H PRN PRN Reason: Cough Last Admin: 12/09/23 04:50 Dose: 5 ml Documented By: TERI Guaifenesin/Dextromethorphan (Guaifenesin Dm 600/30 1 Tab Tab.Er.12h) 1 tab PO BID [facility] Last Admin: 12/10/23 08:19 Dose: 1 tab Documented By: PENNY Hydroxyzine HCl (Hydroxyzine Hcl 25 Mg Tablet) 25 mg PO Q6H PRN PRN Reason: itch Azithromycin 500 mg/ Sodium (Chloride) 250 mls @ 125 mls/hr IV Q24H [facility] Last Infusion: 12/10/23 00:33 Dose: Infused Documented By: KIMBERLEY Dextrose (D10) 250 mls @ 750 mls/hr IV Q15M PRN; Protocol PRN Reason: per Hypoglycemia Standing Ord. Insulin Human Lispro (Insulin Lispro 100 Unit/Ml 3 Ml Vial) 0 unit SUBCUT QIDACHS [facility]; Protocol Last Admin: 12/10/23 08:19 Dose: 2 unit Documented By: PENNY Levothyroxine Sodium (Levothyroxine Sodium 75 Mcg Tablet) 225 mcg PO DAILY@0600 [facility] Last Admin: 12/10/23 06:07 Dose: 225 mcg Documented By: KIMBERLEY Methadone HCl (Methadone Hcl 20 Mg/2 Ml Oral.Conc) 60 mg PO DAILY [facility] Last Admin: 12/10/23 08:20 Dose: 60 mg Documented By: PENNY Co-signed By: BALWINDER Methylprednisolone Sodium Succinate (Methylprednisolone Sod Succ 40 Mg/Ml Vial) 40 mg IVPUSH Q12H [facility] Last Admin: 12/10/23 08:19 Dose: 40 mg Documented By: PENNY Omeprazole (Omeprazole 20 Mg Capsule.Dr) 20 mg PO DAILY@1200 [facility] Last Admin: 12/09/23 12:39 Dose: 20 mg Documented By: PENNY Perphenazine (Perphenazine 4 Mg Tablet) 4 mg PO BEDTIME [facility] Last Admin: 12/09/23 22:20 Dose: Not Given Documented By: KIMBERLEY Non-Admin Reason: Patient Refused Senna (Sennosides 8.6 Mg Tablet) 17.2 mg PO BEDTIME PRN PRN Reason: constipation Last Admin: 12/09/23 22:23 Dose: 8.6 mg Documented By: KIMBERLEY Comments: pt request half dose Sertraline HCl (Sertraline Hcl 100 Mg Tablet) 100 mg PO DAILY@1200 [facility] Last Admin: 12/09/23 12:40 Dose: 100 mg Documented By: PENNY Sertraline HCl (Sertraline Hcl 25 Mg Tablet) 25 mg PO DAILY@1200 [facility] Last Admin: 12/09/23 12:40 Dose: 25 mg Documented By: PENNY Sodium Chloride (Sodium Chloride 0.65 % Nasal 44 Ml Sprbtl) 1 spray NOSTRIL-B Q1H PRN PRN Reason: Dryness Labs 12/10/23 06:34 12/10/23 06:34 Labs: Laboratory Results - last 24 hr 12/09/23 12/09/23 12/09/23 11:20 15:51 20:56 MCV MCH MCHC RDW Plt Count MPV Absolute Nucleated RBC Nucleated RBC % (auto) Anion Gap Estim Creat Clear Calc Estimated GFR POC Glucose 260 H 194 H 250 H Fasting Glucose Calcium 12/10/23 12/10/23 06:34 07:25 MCV 87.5 MCH 28.2 MCHC 32.2 RDW 14.2 Plt Count 167 MPV 10.5 Absolute Nucleated RBC 0.000 Nucleated RBC % (auto) 0.0 Anion Gap 12 Estim Creat Clear Calc 100.6 Estimated GFR > 60 POC Glucose 164 H Fasting Glucose 178 H Calcium 9.6 Microbiology Microbiology Results: Microbiology 12/07/23 15:51 Blood Culture - Preliminary Blood - Venous No growth after 48 hours. 12/07/23 15:39 Blood Culture - Preliminary Blood - Venous No growth after 48 hours. Assessment and Plan (1) Acute on chronic respiratory failure with hypercapnia: Status: Acute Plan 58F PMH opiate dependence, hepatitis-C with cirrhosis, chronic hypoxic respiratory failure due to COPD on 4-6 L home, hypothyroid, hyperlipidemia presented 12/07/23 with shortness of breath, found to be positive for COVID. Required BiPAP for work of breathing so admitted to ICU, treated with steroids nebs and azithromycin and now downgraded to medical floor 12/08/23. Acute on chronic hypoxic and hypercapnic failure secondary to COPD with acute decompensation due to COVID Continue steroids and bronchodilators, continue to wean O2, empiric azithromycin much improved, goal o2 88-91% on 4-6L Hypothyroid Continue levothyroxine Opiate depend Continue methadone hcv with cirrhosis appears compensated mood disorder trilafon, zoloft htn amlodipine dvt prophylaxis - lovenox full code reason for continued hospitalization:still wheezy, sob, o2 requirements above baseline Quality Stroke Does the patient have a stroke diagnosis?: No VTE Prior VTE?: No VTE Risk Level:: Medical - moderate - high VTE Device Contraindication: N/A - Device Ordered VTE Drug Contraindication: N/A - Med Ordered
[2023-12-10 11:33] LABS: Glucose, Whole Blood 206 mg/dL (60-115)
[2023-12-10] MEDS: Sertraline HCL 25 MG TABLET PO (11:52)
[2023-12-10] MEDS: Sertraline HCL 100 MG TABLET PO (11:52)
[2023-12-10] MEDS: amLODIPine Besylate 5 MG TABLET PO (11:53)
[2023-12-10] MEDS: Omeprazole 20 MG CAPSULE.DR PO (11:53)
[2023-12-10 16:30] LABS: Glucose, Whole Blood 248 mg/dL (60-115)
[2023-12-10 21:02] LABS: Glucose, Whole Blood 255 mg/dL (60-115)
[2023-12-10] MEDS: Sodium Chloride 0.65 % Nasal 44 ML SPRBTL 1 SPRAY NOSTRIL-B (21:04)
[2023-12-10] MEDS: Atorvastatin Calcium 80 MG TABLET PO (21:06)
[2023-12-10] MEDS: Famotidine 20 MG TABLET 40 MG PO (21:06)
[2023-12-10] MEDS: Azithromycin 500 MG in 0.9 % Sodium Chloride 250 ML 125 MG IV (21:07)
[2023-12-10] MEDS: Enoxaparin Sodium 40 MG/0.4 ML SYRINGE SUBCUT (23:10)
[2023-12-11 03:59] VITALS: BP 137/85; PULSE 82; RESP 20; TEMP 36.3; O2SAT 90
[2023-12-11] MEDS: Levothyroxine Sodium 75 MCG TABLET 225 MCG PO (05:04)
[2023-12-11] MEDS: Albuterol/Iprat 2.5/0.5MG 3 ML AMPUL.NEB INHALE ×2 (07:46→11:21)
[2023-12-11 07:47] VITALS: PULSE 72; RESP 15; O2SAT 97
[2023-12-11 07:59] LABS: Glucose, Whole Blood 156 mg/dL (60-115)
[2023-12-11 08:00] VITALS: BP 147/86; PULSE 80; RESP 20; O2SAT 96
[2023-12-11] MEDS: Insulin Lispro 100 UNIT/ML 3 ML VIAL SUBCUT ×2 (08:37→11:57)
[2023-12-11] MEDS: guaiFENesin DM 600/30 1 TAB TAB.ER.12H PO (08:37)
[2023-12-11] MEDS: methADONE HCl 20 MG/2 ML ORAL.CONC 60 MG PO (08:37)
[2023-12-11] MEDS: Furosemide 20 MG TABLET PO (08:37)
[2023-12-11] MEDS: Acetaminophen 325 MG TABLET 650 MG PO (08:37)
[2023-12-11] MEDS: methylPREDNISolone Sod Succ 40 MG/ML VIAL IVPUSH (08:38)
--- NOTE | 2023-12-11 09:18 | PM.DS ---
DS: Providers Provider Date of Service: 12/11/23 Date of admission: 12/07/23 22:22 Date of discharge: 12/11/23 Primary care physician: Cathleen Sears MD DS: Diagnosis Discharge Diagnosis (1) Acute on chronic respiratory failure with hypercapnia: Status: Acute DS: Summary Hospital Course Hospital Course: from initial hpi: 57-year-old east timorese speaking female with a past medical history of COPD on home 02 at 4-6L,? hepatitis C, cirrhosis,? hypertension, hypothyroidism, hyperlipidemia, Substance abuse (on methadone), and tobacco use? who presented to the emergency? department with dyspnea.? Patient presented to the emergency department with worning? dyspnea x 2 days. Reported cough, productive yellow sputum and possible fever. Also no improvement with nebulizer machine ? On arrival to the emergency department patient was? placed on BiPAP due to work of breathing,?? ?Laboratory data was only significant for positive COVID test ED course:?? She received albuterol, Solu-Medrol 80,? albuterol treatment and azithromycin 500 Patient admitted to ICU for hemodynamic monitoring of acute hypoxic and hypercapnic respiratory failure secondary to viral infection with COVID requiring BiPAP support hospital course: Patient was admitted for acute on chronic hypoxic and hypercapnic respiratory failure secondary to COPD with acute decompensation due to COVID. She was treated with steroids and bronchodilators. She was also given empiric azithromycin. She was treated with BiPAP in ICU and then taken off and downgraded to medical floor where she was continued to be weaned down to her baseline oxygen of 4-6 L. Patient is feeling much better will be discharged home on 5 more days of prednisone 40 mg daily. For hypothyroidism will continue with levothyroxine. For opiate dependence was continued on methadone. For HCV with cirrhosis patient appears compensated. For mood disorder was continued on Trilafon and Zoloft. For hypertension was continued on amlodipine. Time Attestation Discharge Coordination Time (in mins): 32 Quality: Safe Use of Opioids Does Pt have an Active Cancer Diagnosis on the Problem List?: No Quality: Stroke Does the patient have a stroke diagnosis?: No Physical Exam Vital Signs: Vital Signs: Last Vital Signs Temp 97.4 F 12/11/23 03:59 Pulse 80 12/11/23 08:00 Resp 20 12/11/23 08:00 BP 147/86 H 12/11/23 08:00 Pulse Ox 96 12/11/23 08:00 O2 Del Method Nasal Cannula 12/11/23 03:59 O2 Flow Rate 6 12/11/23 03:59 FiO2 50 12/09/23 16:00 Oxygen Flow Rate 11 12/07/23 15:06 BMI result Body Mass Index 27.8 General: AO X 3, in acute distress Resp: mild wheezing bilateral, no accessory muscles used CVS: S1,S2,RRR GI: soft, non tender, non distended Neuro: motor grossly intact, alert DS: Data Data Completed and Pending Completed studies during hospitalization [Text1]: Procedures Assistance with Respiratory Ventilation, Less than 24 Consecutive Hours, Continuous Positive Airway Pressure (10/06/23) Insertion of Endotracheal Airway into Trachea, Via Natural or Artificial Opening (10/25/23) Insertion of Infusion Device into Superior Vena Cava, Percutaneous Approach (06/30/23) Introduction of Vasopressor into Peripheral Vein, Percutaneous Approach (10/25/23) Respiratory Ventilation, 24-96 Consecutive Hours (10/25/23) Respiratory Ventilation, Less than 24 Consecutive Hours (06/30/23) Ultrasonography of Superior Vena Cava, Guidance (06/30/23) Labs on day of discharge: Laboratory Results - last 24 hr 12/10/23 12/10/23 12/10/23 11:20 16:27 20:55 POC Glucose 206 H 248 H 255 H 12/11/23 07:49 POC Glucose 156 H Preliminary micro results at discharge 12/07/23 15:51 Blood Culture - Preliminary Blood - Venous No growth after 48 hours. 12/07/23 15:39 Blood Culture - Preliminary Blood - Venous No growth after 48 hours. Discharge Plan Discharge Anticipated Discharge Date/Time: 12/11/23 09:15 Patient Disposition: Home, Self-Care Discharge Diagnosis: covid Referrals: Cathleen Sears MD [Primary Care Provider] - 1 Week Discharge Medications: New prednisone 20 mg tablet 40 mg PO DAILY Qty: 10 0RF Continued rosuvastatin 20 mg Tablet 20 mg PO BEDTIME ipratropium-albuterol 0.5 mg-3 mg(2.5 mg base)/3 mL solution for nebulization 3 ml inhalation QID PRN (Reason: wheezing) sertraline 100 mg Tablet 100 mg PO DAILY@1200 sennosides [senna] 8.6 mg tablet 17.2 mg PO BEDTIME PRN (Reason: constipation) metformin 500 mg tablet extended release 24 hr 500 mg PO DAILY@1700 Rx Instructions: with dinner furosemide 20 mg tablet 20 mg PO BID levothyroxine 25 mcg tablet 25 mcg PO DAILY@0600 pantoprazole 40 mg tablet,delayed release (DR/EC) 40 mg PO DAILY@1200 famotidine [Pepcid] 40 mg tablet 40 mg PO BEDTIME amlodipine 10 mg tablet 5 mg PO DAILY@1200 simethicone 180 mg capsule 180 mg PO BIDAC fluticasone propion-salmeterol [Advair Diskus] 500-50 mcg/dose blister with device 1 ea INHALATION BID albuterol sulfate [Ventolin HFA] 90 mcg/actuation HFA aerosol inhaler 2 puff INHALATION Q6H PRN (Reason: wheezing) lidocaine 5 % adhesive patch,medicated 1 patch topical DAILY PRN (Reason: Pain) Rx Instructions: on for 12 h off for 12 h methadone 10 mg/mL Concentrate 60 mg PO DAILY Qty: 1 0RF Rx Instructions: [facility] methadone clinic per pt- dose reduced during hospitalization to 60 mg acetaminophen 500 mg tablet 1,000 mg PO Q8H PRN (Reason: moderate pain) hydrocortisone 2.5 % cream 1 appl topical BID PRN (Reason: Itching) varenicline 0.5 mg (11)- 1 mg (42) tablets,dose pack PO DIRECTED prednisone 20 mg tablet 20 mg PO DAILY hydroxyzine pamoate 25 mg capsule 25 mg PO Q6H PRN (Reason: itch) docusate sodium 100 mg Capsule 100 mg PO BID PRN (Reason: Constipation) perphenazine 4 mg tablet 4 mg PO BEDTIME sertraline 25 mg tablet 25 mg PO DAILY@1200 Incruse Ellipta 62.5 mcg/actuation blister with device 1 inh inhalation DAILY levothyroxine 200 mcg tablet 200 mcg PO DAILY@0600 Discharge Orders: Discharge Order (Routine); Ordered 12/11/23 Ordered By: Zachary Suazo Diet: Advance to usual diet Activity on Discharge: As tolerated Stand Alone Forms: Patient Portal Discharge page Print Language: Salvadorean Care Plan Goals: recovery Health Concerns: covid, copd Plan of Treatment: increased prednisone 5 days Assessment: see above
--- NOTE | 2023-12-11 09:50 | MHC.CM.PN ---
Pt has been medically cleared for DC. She will go home via family transport and resume VNA services from [facility].
[2023-12-11 11:21] VITALS: PULSE 93; RESP 14; O2SAT 98
[2023-12-11 11:49] LABS: Glucose, Whole Blood 218 mg/dL (60-115)
[2023-12-11] MEDS: Sertraline HCL 25 MG TABLET PO (11:57)
[2023-12-11] MEDS: Omeprazole 20 MG CAPSULE.DR PO (11:57)
[2023-12-11] MEDS: amLODIPine Besylate 5 MG TABLET PO (11:57)
[2023-12-11] MEDS: Sertraline HCL 100 MG TABLET PO (11:57)
== END 2023-12-11 12:53 | disposition home health service (06) | DRG 137 ==
LOC: HO.ED 22:26 → HO.EDOVER 22:29 → HO.ICU 22:41 → HO.IMC 12-08 10:59
PROVIDERS: Internal Medicine Pulmonary Disease; Admitting Provider Registered Nurse Community Health; Emergency Provider Emergency Medicine; PCP Family Medicine; Visit Provider Internal Medicine
DX: U07.1 COVID-19 (principal); J96.21 Acute and chronic respiratory failure with hypoxia; K74.69 Other cirrhosis of liver; E03.9 Hypothyroidism, unspecified; F39 Unspecified mood [affective] disorder; B19.20 Unspecified viral hepatitis C without hepatic coma; I10 Essential (primary) hypertension; Z99.81 Dependence on supplemental oxygen; J81.0 Acute pulmonary edema; J44.1 Chronic obstructive pulmonary disease with (acute) exacerbation; J96.22 Acute and chronic respiratory failure with hypercapnia; F11.20 Opioid dependence, uncomplicated; Z79.51 Long term (current) use of inhaled steroids; Z79.84 Long term (current) use of oral hypoglycemic drugs; Z79.890 Hormone replacement therapy; Z79.899 Other long term (current) drug therapy
CPT/HCPCS: 0241U; 36415; 71045; 80048; 80076; 80307; 82040; 82803; 82947; 83605; 83735; 83880; 84100; 84484; 85025; 85027; 85610; 86140; 87040; 93005; 94640; 99285; J0456; J1120; J1650; J2919

== ENCOUNTER → 2023-12-07 22:22 | Outpatient (BNV) | payer MEDICAID, SELFPAY | PROVIDERS: Admitting Provider Registered Nurse Community Health; Emergency Provider Emergency Medicine; PCP Family Medicine; Visit Provider Registered Nurse Community Health | DX: J96.01 Acute respiratory failure with hypoxia (principal); J96.12 Chronic respiratory failure with hypercapnia; U07.1 COVID-19; J44.1 Chronic obstructive pulmonary disease with (acute) exacerbation; J81.1 Chronic pulmonary edema | CPT/HCPCS: 99291 ==

== ENCOUNTER → 2023-12-07 22:22 | Outpatient (BNV) | payer MEDICAID, SELFPAY | PROVIDERS: Admitting Provider Registered Nurse Community Health; Emergency Provider Emergency Medicine; PCP Family Medicine; Visit Provider Internal Medicine | DX: U07.1 COVID-19 (principal); J96.22 Acute and chronic respiratory failure with hypercapnia | CPT/HCPCS: 99232; 99233; 99239 ==

== ENCOUNTER → 2023-12-07 22:22 | Outpatient (BNV) | payer MEDICAID, SELFPAY | PROVIDERS: Admitting Provider Registered Nurse Community Health; Emergency Provider Emergency Medicine; PCP Family Medicine; Visit Provider Internal Medicine Pulmonary Disease | DX: J96.21 Acute and chronic respiratory failure with hypoxia (principal); J96.22 Acute and chronic respiratory failure with hypercapnia; U07.1 COVID-19; K70.30 Alcoholic cirrhosis of liver without ascites; F11.20 Opioid dependence, uncomplicated; J44.9 Chronic obstructive pulmonary disease, unspecified; B19.20 Unspecified viral hepatitis C without hepatic coma | CPT/HCPCS: 99233 ==

== ENCOUNTER 2023-12-21 11:52 | Outpatient (REF) | payer MEDICAID, SELFPAY ==
[2023-12-21 14:47] LABS: Alanine Aminotransferase 30 U/L (0-31); Albumin Level 4.2 g/dL (3.5-5.0); Alkaline Phosphatase 97 U/L (39-117); Aspartate Amino Transferase 24 U/L (5-31); Bilirubin Direct 0.1 mg/dL (0.0-0.5); Bilirubin Total 0.5 mg/dL (0.0-1.0); Total Protein 7.7 g/dL (6.5-8.0)
[2023-12-21 15:44] LABS: Estimated Average Glucose 146 mg/dL; Hemoglobin A1c % 6.7 % (<6.0)
[2023-12-23 11:14] LABS: Anti Nuclear Antibody Screen NEGATIVE (NEGATIVE)
[2023-12-25 16:09] LABS: Smooth Muscle Antibody <20 U (<20)
[2023-12-27 10:03] LABS: Mitochondrial Antibodies NEGATIVE (NEGATIVE)
[2023-12-27 11:21] LABS: Phosphatidylethanol 16:0-18:1 NEGATIVE; Phosphatidylethanol 16:0-18:2 NEGATIVE
== END 2023-12-21 11:53 | disposition home or self-care (01) ==
LOC: HO.LAB 11:52
PROVIDERS: PCP Family Medicine; Visit Provider Nurse Practitioner
DX: K21.9 Gastro-esophageal reflux disease without esophagitis (principal); K70.30 Alcoholic cirrhosis of liver without ascites; E11.9 Type 2 diabetes mellitus without complications
CPT/HCPCS: 36415; 80076; 80321; 83036; 86015; 86038; 86381; 99212

== ENCOUNTER 2023-12-21 11:52 | Outpatient (AMB) | payer MEDICAID, SELFPAY ==
--- NOTE | 2023-12-21 11:53 | A.OFFVIS_ITS ---
Vital Signs 12/21/23 12:11 Height 5 ft 5 in Weight 171 lb BMI 28.5 BP 126/59 L Blood Pressure Location Lt brachial Position Sitting Pulse 111 H Intake Visit Reasons: 6 month follow up ETOH cirrhosis, GERD Intake Note: Patient 6 month up ETHOS, Cirrhosis, and GERD Patient cc: soft stool, GERD with a lot of burping, bloody hemorrhoids, some difficulty swallowing. 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 Required: No Accompanied by: Family/Other Allergies Penicillins [PENICILLINS] Allergy (Unknown, Verified 12/21/23 12:05) RED ITCHY RASH SEAFOOD Allergy (Unknown, Uncoded 12/07/23 15:12) FEVER SWELLING HPI HPI 6 month follow up ETOH cirrhosis, GERD: Details: Assessment & Plan (1) GERD (gastroesophageal reflux disease): Code(s): K21.9 - Gastro-esophageal reflux disease without esophagitis (2) Abdominal bloating: Code(s): R14.0 - Abdominal distension (gaseous) (3) Alcoholic cirrhosis: Code(s): K70.30 - Alcoholic cirrhosis of liver without ascites Plan Salvadorean # COTTON MACHINE OPERATOR/niece translates per patient request She has had NO ETOH for 2 mos and her COTTON MACHINE OPERATOR/niece is watching her closely. However, not all of the labs I ordered were obtained nor was the US. She will go for the remaining labs today and I will re order the US. I encouraged her that her liver will recover quickly if she can avoid alcohol and it does appear that she has improved in her transaminases when compared to her 2019 values. She continues on her famotidine and simethicone with good control of her GI conditions. Rov 6 mos. Medications: New pantoprazole 40 mg PO DAILY@1200 30 tabs 6RF Refilled simethicone after meals 180 mg PO BID 30 days 60 caps 6RF R14.0 - Abdominal distension (gaseous) famotidine (Pepcid) 40 mg PO BEDTIME 30 tabs 6RF K21.9 - Gastro-esophageal reflux disease without esophagitis LABS: ULTRASOUND OF THE ABDOMEN WITH ELASTOGRAPHY Not yet obtained TODAY'S VISIT Salvadorean #Lorenzo translates per pt request She was hospitalized and intubated recently apparently she had COVID and this drove her into respiratory failure. While this is well documented her family was not aware of the COVID diagnosis so I did review this with them. I told him it is important in the future to keep up with her COVID vaccines given her chronic respiratory problems. She will go for the blood work that were missing I never got a full autoimmune workup on her and the ultrasound was not designated to the correct place and I have switched that today. She continues to be abstinent to alcohol since March which is good for her liver health. I also was unaware that she is diabetic, she asks for a fingerstick to check her sugar today and that is what tips me off. Obviously control of her blood sugars also important to her liver health so I will get a glucose and A1c. She continues on her pantoprazole in the morning famotidine at night and simethicone. She still has a lot of gas and bloating but this was going to come with her central adiposity and all of her multiple health problems including her chronic methadone therapy. For constipation and she endorses moving her bowels well and having good control of her GERD. Return office visit in 6 months [facility] Medical History (Updated 12/21/23 @ 12:29 by ESTHELA Rod) Nausea and vomiting COVID Community acquired pneumonia Colon cancer screening COPD (chronic obstructive pulmonary disease) Methadone dependence Alcoholic cirrhosis Hepatitis C Pulmonary edema Polysubstance abuse Hypertension Acute and chronic respiratory failure Hypotension Respiratory failure Acute respiratory failure, unspecified whether with hypoxia or hypercapnia Hyperlipidemia Psychosis Hypoxia Acute exacerbation of chronic obstructive airways disease HTN (hypertension) Hypothyroid COPD (chronic obstructive pulmonary disease) Family History Father HTN (hypertension) Mother Gastritis Ovarian cancer Arthritis Son Thyroid disease Other Hypothyroid Social History Household Members: Unknown / Unable to assess Household Members Other:: 1 Housing: Unknown / Unable to assess Do you presently have visiting nurse or other home services: Yes Alcohol intake: current Alcohol intake frequency: does not drink Patient Tobacco Use Status: Tobacco use Unknown Tobacco use type: Cigarette Cigarette Packs Per Day: 1 Cigarettes Per Day: 10 Years Smoked: 30 e-Cigarette/Vaping Use: Never Used Second Hand Smoke Exposure: No Substance Use Type: Heroin Advance Directives Date on File: 08/18/23 service: No Current occupational status: unemployed Review of Systems Const Denies fatigue, Denies fever(s), Reports headache(s), Denies night sweats, Denies poor appetite and Denies weight loss ENT Reports Normal hearing present, Denies dental pain, Denies dysphagia, Reports headache(s), Denies hearing loss, Denies mouth pain, Denies odynophagia, Denies throat swelling, Denies tongue swelling and Reports other (Dentition adequate) Card Reports no additional complaints and Reports dyspnea on exertion Resp Reports dyspnea on exertion GI Details: Denies abdominal pain, Reports belching, Denies melena, Reports bloating, Denies hematochezia, Reports constipation, Denies GI cramping, Denies dysphagia, Denies excessive flatus, Denies early satiety, Reports heartburn, Denies diarrhea, Denies nausea, Denies odynophagia, Denies vomiting and Denies hematemesis Skin/Breast Denies pruritus, Denies lesions, Denies rash and Denies jaundice Neuro Reports Normal hearing present, Denies Abnormal speech present and Reports headache(s) Endo Denies fatigue Aller/Immun Denies throat swelling and Denies tongue swelling Physical Exam Vital Signs: Last Vital Signs Pulse 111 H 12/21/23 12:11 BP 126/59 L 12/21/23 12:11 BMI result Body Mass Index 28.5 Const General: cooperative, no acute distress, well developed and well groomed Nutritional Appearance: well nourished and obese Orientation/consciousness: oriented to person, oriented to place and oriented to time Limitations: No language barrier HEENT Head: Yes normocephalic and Yes atraumatic Eyes General: appearance normal, both eyes and all related structures Pupils: Equal, round and reactive pupils present Neck Neck: Yes normal visual inspection and Yes no lymphadenopathy Thyroid: Thyroid normal Resp Effort & Inspection: normal respiratory effort and able to speak in complete sentences Auscultation: clear to auscultation bilaterally Cardio Rate: regular rate Rhythm: regular rhythm Heart sounds: Normal, physiologic split S2 sound present Peripheral pulses: radial pulses present and posterior tibial pulses present GI Inspection: No distended, No Abdominal panniculus present and Yes obesity Palpation (GI): Soft to palpation, nontender, no guarding, not rigid and Hepatomegaly present Percussion: Yes normal to percussion Auscultation: normal bowel sounds Rectal Exam - Female: deferred Skin General skin exam: no rashes or lesions noted, turgor normal, skin not dry, no jaundice, No spider nevi and no striae Rashes: no rashes Nails: normal Neuro General: oriented to person, oriented to place and oriented to time Cranial nerves: Yes Equal, round and reactive pupils present and Yes Normal hearing present Speech: No Abnormal speech present Extrem General: Yes normal to inspection, No clubbing, No cyanosis and No edema Psych Appearance: grossly normal and well kempt Mental Status: mental status grossly normal Speech and movement: Normal speech and movement present Affect: normal affect Attitude: cooperative Thought process: Normal thought process present and not confabulating Thought content: Normal thought content present Insight: Limited insight present (Psych) Judgement: Limited judgement present (Psych) Assessment & Plan Assessment & Plan (1) GERD (gastroesophageal reflux disease): Code(s): K21.9 - Gastro-esophageal reflux disease without esophagitis Category: Medical (2) Alcoholic cirrhosis: Code(s): K70.30 - Alcoholic cirrhosis of liver without ascites Category: Medical (3) Diabetes: Code(s): E11.9 - Type 2 diabetes mellitus without complications Category: Medical Plan Salvadorean #Niece translates per pt request She was hospitalized and intubated recently apparently she had COVID and this drove her into respiratory failure. While this is well documented her family was not aware of the COVID diagnosis so I did review this with them. I told him it is important in the future to keep up with her COVID vaccines given her chronic respiratory problems. She will go for the blood work that were missing I never got a full autoimmune workup on her and the ultrasound was not designated to the correct place and I have switched that today. She continues to be abstinent to alcohol since March which is good for her liver health. I also was unaware that she is diabetic, she asks for a fingerstick to check her sugar today and that is what tips me off. Obviously control of her blood sugars also important to her liver health so I will get a glucose and A1c. She continues on her pantoprazole in the morning famotidine at night and simethicone. She still has a lot of gas and bloating but this was going to come with her central adiposity and all of her multiple health problems including her chronic methadone therapy. For constipation and she endorses moving her bowels well and having good control of her GERD. Return office visit in 6 months Orders: Orders US abdomen comp w elastography 10/12/23 K74.60 - Unspecified cirrhosis of liver Smooth Muscle Antibody Today K70.30 - Alcoholic cirrhosis of liver without ascites Phosphatidylethanol, Blood Today K70.30 - Alcoholic cirrhosis of liver without ascites AMB Fasting Glucose Today E11.9 - Type 2 diabetes mellitus without complications, K70.30 - Alcoholic cirrhosis of liver without ascites, Z13.9 - Encounter for screening, unspecified Hemoglobin A1c Today E11.9 - Type 2 diabetes mellitus without complications PASCUAL Reflex Titer and Pattern Today K70.30 - Alcoholic cirrhosis of liver without ascites Mitochondrial Antibody Today K70.30 - Alcoholic cirrhosis of liver without ascites Liver Panel Today E11.9 - Type 2 diabetes mellitus without complications, K70.30 - Alcoholic cirrhosis of liver without ascites Medications: New sennosides (senna) 17.2 mg (2 x 8.6 mg) PO BEDTIME PRN 60 tabs 6RF constipation hydrocortisone 2.5% (Proctosol HC) BE SURE TO INCLUDE RECTAL APPICATOR!! 1 appl NC BID 30 grams 6RF hemorrhoids K64.9 - Unspecified hemorrhoids pantoprazole 40 mg PO DAILY@1200 30 tabs 6RF simethicone 180 mg PO BIDAC 60 caps 6RF docusate sodium 100 mg PO BID PRN 60 caps 6RF Constipation Refilled famotidine 40 mg PO BEDTIME 30 tabs 6RF Coding Level of Care Code Est Pt Level 3 (57510) Diagnoses GERD (gastroesophageal reflux disease) K21.9 Alcoholic cirrhosis K70.30 Diabetes E11.9
[2023-12-21 12:11] VITALS: BP 126/59; PULSE 111; BMI 28.5
== END 2023-12-21 14:21 | disposition home or self-care (01) ==
PROVIDERS: PCP Family Medicine; Visit Provider Nurse Practitioner
DX: K21.9 Gastro-esophageal reflux disease without esophagitis (principal); K70.30 Alcoholic cirrhosis of liver without ascites; E11.9 Type 2 diabetes mellitus without complications
CPT/HCPCS: 99213

== ENCOUNTER 2023-12-24 21:32 | Inpatient (IN) | payer MEDICAID, SELFPAY ==
--- NOTE | ~2023-12-24 | XR_ITS ---
EXAMINATION: XR CHEST CLINICAL INFORMATION: Cough, dyspnea and fever COMPARISON: Chest radiograph 12/07/[address] chest 12/07/2023 TECHNIQUE: Frontal view of the chest was obtained. FINDINGS: Again seen is mild cardiomegaly. There is no evidence of CHF. Bibasilar atelectasis is once again noted, left greater than right XR/XR chest 1V IMPRESSION: Bibasilar atelectasis, left greater than right. Electronically signed by: Ronny Louis MD 12/24/2023 10:41 PM EDT
[2023-12-24 21:37] VITALS: BP 120/72; BP 139/64; PULSE 109; PULSE 110; RESP 15; TEMP 37.7; O2SAT 90; O2SAT 96; BMI 30.7
[2023-12-24 21:47] VITALS: BP 139/64; PULSE 109; RESP 21; TEMP 37.7; O2SAT 87
--- NOTE | 2023-12-24 21:56 | PC.NURSE ---
patient o2 saturations in Mid 80s on Nasal Cannula. Swtched patient to oxymask and o2 improved to 92%
--- NOTE | 2023-12-24 22:02 | ED.GENADULT ---
HPI - General Adult General Chief complaint: General Medical Stated complaint: Sob, COPD exacerbation Time Seen by Provider: 12/24/23 22:02 History of Present Illness ED Provider: Marsha SMITH narrative: The patient is a 58-year-old woman with a history of COPD. She says that she has felt unwell for about 5 or 6 days. She has felt much worse over the last 2 days. She has been coughing a lot. She has been producing green and yellow sputum. She thinks she has had a fever. Related Data Home Medications ?Medication ?Instructions ?Recorded ?Confirmed rosuvastatin 20 mg tablet 20 mg PO BEDTIME 03/11/20 12/25/23 perphenazine 4 mg tablet 4 mg PO BEDTIME 09/24/21 12/25/23 levothyroxine 200 mcg tablet 200 mcg PO DAILY@0610/01/22 12/25/23 sertraline 25 mg tablet 25 mg PO DAILY@119910/01/22 12/25/23 umeclidinium 62.5 mcg/actuation 1 inh inhalation DAILY 10/01/22 12/25/23 blister powder for inhalation (Incruse Ellipta) ipratropium 0.5 mg-albuterol 3 mg 3 ml inhalation QID PRN wheezing 04/20/23 12/25/23 (2.5 mg base)/3 mL nebulization soln sertraline 100 mg tablet 100 mg PO DAILY@1200 04/20/23 12/25/23 metformin 500 mg tablet,extended 500 mg PO DAILY@1700 07/01/23 12/25/23 release 24 hr furosemide 20 mg tablet 20 mg PO BID 08/16/23 12/25/23 levothyroxine 25 mcg tablet 12.5 mcg PO DAILY@0608/16/23 12/25/23 amlodipine 10 mg tablet 5 mg PO DAILY@119909/03/23 12/25/23 albuterol sulfate 90 mcg/actuation 2 puff inhalation Q6H PRN wheezing 10/06/23 12/25/23 aerosol inhaler (Ventolin HFA) fluticasone 500 mcg-salmeterol 50 1 ea inhalation BID 10/06/23 12/25/23 mcg/dose blistr powdr for inhalation (Advair Diskus) lidocaine 5 % topical patch 1 patch topical DAILY PRN Pain 10/26/23 12/25/23 acetaminophen 500 mg tablet 1,000 mg PO Q8H PRN moderate pain 12/08/23 12/25/23 hydrocortisone 2.5 % topical cream 1 appl topical BID PRN Itching 12/08/23 12/25/23 hydroxyzine pamoate 25 mg capsule 25 mg PO Q6H PRN itch 12/08/23 12/25/23 varenicline 0.5 mg (11)-1 mg (42) 1 ea PO DIRECTED 12/08/23 12/25/23 tablets in a dose pack Previous Rx's ?Medication ?Instructions ?Recorded methadone 10 mg/mL oral concentrate 60 mg (6 mL) PO DAILY #1 mL 11/01/23 docusate sodium 100 mg capsule 100 mg PO BID PRN Constipation #60 12/21/23 caps famotidine 40 mg tablet 40 mg PO BEDTIME #30 tabs 12/21/23 hydrocortisone 2.5 % topical cream 1 appl MS BID hemorrhoids #30 grams 12/21/23 with perineal applicator (Proctosol HC) pantoprazole 40 mg tablet,delayed 40 mg PO DAILY@1200 #30 tabs 12/21/23 release sennosides 8.6 mg tablet (senna) 17.2 mg (2 x 8.6 mg) PO BEDTIME 12/21/23 PRN constipation #60 tabs simethicone 180 mg capsule 180 mg PO BIDAC #60 caps 12/21/23 Allergies Allergy/AdvReac Type Severity Reaction Status Date / Time Penicillins [PENICILLINS] Allergy Unknown RED ITCHY Verified 12/24/23 21:41 RASH SEAFOOD Allergy Unknown FEVER Uncoded 12/24/23 21:41 SWELLING Review of Systems Review of Systems: Yes all other systems are reviewed and are negative [facility] Past Medical History Medical History (Updated 12/25/23 @ 02:59 by Ed Larson MD) Nausea and vomiting COVID Community acquired pneumonia Colon cancer screening COPD (chronic obstructive pulmonary disease) Methadone dependence Alcoholic cirrhosis Hepatitis C Pulmonary edema Polysubstance abuse Hypertension Acute and chronic respiratory failure Hypotension Respiratory failure Acute respiratory failure, unspecified whether with hypoxia or hypercapnia Hyperlipidemia Psychosis Hypoxia Acute exacerbation of chronic obstructive airways disease HTN (hypertension) Hypothyroid COPD (chronic obstructive pulmonary disease) Family History Family History Father HTN (hypertension) Mother Gastritis Ovarian cancer Arthritis Son Thyroid disease Other Hypothyroid Social History Social History Household Members: Unknown / Unable to assess Household Members Other:: 1 Housing: Unknown / Unable to assess Do you presently have visiting nurse or other home services: Yes Alcohol intake: current Alcohol intake frequency: does not drink Patient Tobacco Use Status: Tobacco use Unknown Tobacco use type: Cigarette Cigarette Packs Per Day: 1 Cigarettes Per Day: 10 Years Smoked: 30 Smoked in Last 30 Days: Yes e-Cigarette/Vaping Use: Never Used Second Hand Smoke Exposure: No Use of substances other than those prescribed or required for medical reasons: No Substance Use Type: Heroin Advance Directives: Yes Advance Directives on File: Yes Advance Directives Date on File: 08/18/23 Do you have a plan to hurt others: No Plan Patient : No service: No Current occupational status: unemployed Physical Exam ED Vital Signs: Vital Signs - 24 hr 12/24/23 21:37 12/24/23 21:47 12/25/23 01:05 Temperature 99.9 F 99.9 F Pulse Rate 109 H 109 H 98 Respiratory Rate 15 21 H 18 Blood Pressure 139/64 139/64 Pulse Oximetry 90 L 87 L Oxygen Delivery Method Nasal Cannula Nasal Cannula Oxygen Flow Rate 6 12/25/23 01:46 12/25/23 02:02 12/25/23 07:22 Temperature Pulse Rate 98 92 93 Respiratory Rate 18 19 17 Blood Pressure 135/61 Pulse Oximetry 89 L Oxygen Delivery Method Oxymask Oxygen Flow Rate 12/25/23 08:11 12/25/23 10:01 12/25/23 11:04 Temperature 98.7 F Pulse Rate 97 98 97 Respiratory Rate 20 15 18 Blood Pressure 139/83 120/77 Pulse Oximetry 92 92 Oxygen Delivery Method Nasal Cannula Nasal Cannula Oxygen Flow Rate 6 6 12/25/23 11:45 12/25/23 12:42 12/25/23 12:44 Temperature Pulse Rate 88 100 Respiratory Rate 14 20 Blood Pressure 122/77 120/77 Pulse Oximetry 90 L 84 L 92 Oxygen Delivery Method Nasal Cannula Nasal Cannula Nasal Cannula Oxygen Flow Rate 3 3 5 12/25/23 12:47 12/25/23 15:06 Temperature Pulse Rate 84 Respiratory Rate 18 Blood Pressure 120/77 Pulse Oximetry Oxygen Delivery Method Oxygen Flow Rate BMI result Body Mass Index 30.7 Const Other: The patient is a chronically ill-appearing 58-year-old. She looked somewhat short of breath. Mental status was normal. HENMT Other: Face is symmetrical. Mucous membranes moist. Eyes General: appearance normal, both eyes and all related structures Neck Neck: Yes no JVD Resp Other: Markedly diminished air entry bilaterally. Quiet wheezes. Cardio Rate: regular rate Rhythm: regular rhythm Heart sounds: S1 normal heart sound present and S2 normal heart sound present GI Other: Abdomen is soft and nontender Skin Other: skin is dry and unremarkable. Neuro Other: The patient was awake and alert. She seemed coherent and I did not feel she was exhibiting signs of confusion or encephalopathy. Cranial nerves were intact. She moves her extremities symmetrically and had no focal findings. Extrem Other: No calf swelling or tenderness, no asymmetry. Medications Administered Generic Name Dose Route Start Last Admin Trade Name Freq PRN Reason Stop Dose Admin Albuterol/Ipratropium 3 ml 12/25/23 08:00 12/25/23 15:05 Albuterol/Iprat 2.5/0.5mg 3 Ml Ampul.Neb INHALE 3 ml RQ4H WHILE AWAKE MAYRA Administration Amlodipine Besylate 5 mg 12/25/23 12:00 12/25/23 12:47 Amlodipine Besylate 5 Mg Tablet PO 5 mg DAILY@1200 MAYRA Administration Protocol Enoxaparin Sodium 40 mg 12/25/23 03:30 12/25/23 04:43 Enoxaparin Sodium 40 Mg/0.4 Ml Syringe SUBCUT 40 mg Q24H MAYRA Administration Furosemide 20 mg 12/25/23 09:00 12/25/23 10:03 Furosemide 20 Mg Tablet PO 20 mg BID MAYRA Administration Protocol Insulin Human Lispro 0 unit 12/25/23 11:30 12/25/23 18:34 Insulin Lispro 100 Unit/Ml 3 Ml Vial SUBCUT 2 unit QIDACHS MAYRA Administration Protocol Methadone HCl 60 mg 12/25/23 10:30 12/25/23 11:43 Methadone Hcl 20 Mg/2 Ml Oral.Conc PO 60 mg DAILY@0800 MAYRA Administration Methylprednisolone Sodium Succinate 40 mg 12/25/23 10:00 12/25/23 10:03 Methylprednisolone Sod Succ 40 Mg/Ml Vial IVPUSH 40 mg Q12H MAYRA Administration Omeprazole 20 mg 12/25/23 12:00 12/25/23 12:47 Omeprazole 20 Mg Capsule. PO 20 mg DAILY@1200 MAYRA Administration Sertraline HCl 25 mg 12/25/23 12:00 12/25/23 12:47 Sertraline Hcl 25 Mg Tablet PO 25 mg DAILY@1200 MAYRA Administration Sertraline HCl 100 mg 12/25/23 12:00 12/25/23 12:47 Sertraline Hcl 100 Mg Tablet PO 100 mg DAILY@1200 MAYRA Administration Sodium Chloride 3 ml 12/25/23 08:00 12/25/23 15:43 0.9 % Sodium Chloride Flush 3 Ml Syringe IVFLUSH Not Given QSHIFT MAYRA Discontinued Medications Generic Name Dose Route Start Last Admin Trade Name Freq PRN Reason Stop Dose Admin Albuterol Sulfate 7.5 mg/ 10 mg 12/25/23 01:01 12/25/23 01:04 Albuterol Sulfate 2.5 mg INHALE 12/25/23 01:02 10 mg ONCE ONE Administration Albuterol Sulfate 7.5 mg/ 0 mg 12/25/23 01:39 12/25/23 01:45 Albuterol/Ipratropium 3 ml INHALE 12/25/23 01:40 10 each ONCE ONE Administration Azithromycin 500 mg/ Sodium 250 mls @ 125 mls/hr 12/25/23 01:04 12/25/23 05:49 Chloride IV 12/25/23 03:03 Infused ONCE ONE Infusion Lidocaine 2 patch 12/25/23 08:06 12/25/23 10:02 Lidocaine 4 % Patch Adh..Patch TRANSDERMA 12/25/23 08:07 2 patch ONCE ONE Administration Protocol Methylprednisolone Sodium Succinate 80 mg 12/24/23 22:51 12/24/23 23:05 Methylprednisolone Sod Succ 125 Mg/2 Ml Vial IVPUSH 12/24/23 22:52 80 mg ONCE ONE Administration Medical Decision Making Medical Decision Making MDM Narrative: The patient is a 58-year-old woman with a history of COPD who was on home oxygen. She has had multiple hospitalizations for exacerbations of her COPD and her chronic lung disease. She presents with what seems to be several days of worsening respiratory symptoms. She describes having a fever and a cough productive of yellow sputum. I suspect she has a another COPD exacerbation. Her chest x-ray does not show any definite pneumonia. Her labs would argue against a pneumonia as well. Her breath sounds were markedly diminished. She was given IV methylprednisolone and IV azithromycin and multiple bronchodilator treatments. She continued to have significantly higher than usual oxygen requirement and so she was admitted to the hospitalist service. Lab Data 12/25/23 05:20 12/25/23 04:36 Labs: Lab Results 12/24/23 12/24/23 12/24/23 Range/Units 22:05 22:45 22:57 WBC 7.4 (4.8-10.8) X10*3/uL RBC 4.78 (4.20-5.50) X10*6/uL Hgb 13.5 (12.0-16.0) g/dl Hct 43.4 (37.0-47.0) % MCV 90.8 (80.0-98.0) fL MCH 28.2 (27.0-33.0) pg MCHC 31.1 (31.0-35.0) g/dl RDW 14.8 (11.0-16.0) % Plt Count 113 L D (160-400) X10*3/uL MPV 10.6 (9.4-12.3) fL Immature Gran % (Auto) 0.4 (0.0-0.4) % Neut % (Auto) 65.6 (45-73) % Lymph % (Auto) 24.4 (20-40) % [place] % (Auto) 6.2 (2-11) % Eos % (Auto) 3.1 (0-4) % Baso % (Auto) 0.3 (0-2) % Lymph # (Auto) 1.8 (1.2-4.9) X10*3/uL [place] # (Auto) 0.5 (0.1-1.2) X10*3/uL Eos # (Auto) 0.2 (0.0-0.4) X10*3/uL Baso # (Auto) 0.0 (0.0-0.2) X10*3/uL Abs Immat Gran (auto) 0.03 (0.00-0.03) X10*3/uL Absolute Neuts (auto) 4.9 (2.0-8.3) x10*3/uL Absolute Nucleated RBC 0.000 (0.0-0.012) X10*3/uL Nucleated RBC % (auto) 0.0 (0.0-0.2) /100WBC Smear Tech's Comments VERIFIED VBG pH 7.56 H (7.32-7.43) VBG pCO2 53 mmHg VBG pO2 120 mmHg VBG HCO3 48 H (22-26) mmol/L VBG O2 Saturation 100.0 % VBG Base Excess 22.3 mmol/L Sodium 136 (135-145) mmol/L Potassium 5.3 H D (3.3-5.1) mmol/L Chloride 92 L (96-108) mmol/L Carbon Dioxide 37 H (22-29) mmol/L Anion Gap 12 (12-20) BUN 12 (9-16) mg/dL Creatinine 0.65 (0.5-1.4) mg/dL Estim Creat Clear Calc 102.1 Estimated GFR > 60 POC Glucose (60-115) mg/dL Random Glucose 138 H (60-115) mg/dL Calcium 9.7 (8.4-10.2) mg/dL Magnesium 2.3 (1.6-2.6) mg/dL Total Bilirubin 0.5 (0.0-1.0) mg/dL Direct Bilirubin 0.1 (0.0-0.5) mg/dL AST 30 (5-31) U/L ALT 24 (0-31) U/L Alkaline Phosphatase 97 (39-117) U/L Troponin I High Sens < 2.7 (<3.5-17.0) ng/L C-Reactive Protein 0.47 (< or = 0.50) mg/dL Total Protein 7.9 (6.5-8.0) g/dL Albumin 4.0 (3.5-5.0) g/dL Influenza Type A (PCR) NEGATIVE (Negative) Influenza Type B (PCR) NEGATIVE (Negative) RSV RNA Qual (PCR) NEGATIVE (Negative) SARS-CoV-2 RNA (RT-PCR) NEGATIVE (Negative) 12/25/23 12/25/23 12/25/23 Range/Units 04:36 05:20 12:17 WBC 6.5 (4.8-10.8) X10*3/uL RBC 4.58 (4.20-5.50) X10*6/uL Hgb 12.9 (12.0-16.0) g/dl Hct 42.3 (37.0-47.0) % MCV 92.4 (80.0-98.0) fL MCH 28.2 (27.0-33.0) pg MCHC 30.5 L (31.0-35.0) g/dl RDW 14.9 (11.0-16.0) % Plt Count 114 L (160-400) X10*3/uL MPV 11.4 (9.4-12.3) fL Immature Gran % (Auto) 0.8 H (0.0-0.4) % Neut % (Auto) 89.6 H (45-73) % Lymph % (Auto) 8.6 L (20-40) % [place] % (Auto) 0.8 L (2-11) % Eos % (Auto) 0.0 (0-4) % Baso % (Auto) 0.2 (0-2) % Lymph # (Auto) 0.6 L (1.2-4.9) X10*3/uL [place] # (Auto) 0.1 (0.1-1.2) X10*3/uL Eos # (Auto) 0.0 (0.0-0.4) X10*3/uL Baso # (Auto) 0.0 (0.0-0.2) X10*3/uL Abs Immat Gran (auto) 0.05 H (0.00-0.03) X10*3/uL Absolute Neuts (auto) 5.8 (2.0-8.3) x10*3/uL Absolute Nucleated RBC 0.000 (0.0-0.012) X10*3/uL Nucleated RBC % (auto) 0.0 (0.0-0.2) /100WBC Smear Tech's Comments VBG pH (7.32-7.43) VBG pCO2 mmHg VBG pO2 mmHg VBG HCO3 (22-26) mmol/L VBG O2 Saturation % VBG Base Excess mmol/L Sodium 141 (135-145) mmol/L Potassium 3.9 D (3.3-5.1) mmol/L Chloride 92 L (96-108) mmol/L Carbon Dioxide 39 H (22-29) mmol/L Anion Gap 14 (12-20) BUN 14 (9-16) mg/dL Creatinine 0.74 (0.5-1.4) mg/dL Estim Creat Clear Calc 89.6 Estimated GFR > 60 POC Glucose 272 H (60-115) mg/dL Random Glucose 277 H (60-115) mg/dL Calcium 9.4 (8.4-10.2) mg/dL Magnesium (1.6-2.6) mg/dL Total Bilirubin (0.0-1.0) mg/dL Direct Bilirubin (0.0-0.5) mg/dL AST (5-31) U/L ALT (0-31) U/L Alkaline Phosphatase (39-117) U/L Troponin I High Sens (<3.5-17.0) ng/L C-Reactive Protein (< or = 0.50) mg/dL Total Protein (6.5-8.0) g/dL Albumin (3.5-5.0) g/dL Influenza Type A (PCR) (Negative) Influenza Type B (PCR) (Negative) RSV RNA Qual (PCR) (Negative) SARS-CoV-2 RNA (RT-PCR) (Negative) Independent Interpretation I performed an independent interpretation of an: EKG Interpretation: EKG at 22:20 shows sinus tachycardia at 105 beats per minute. No definite acute ischemic changes. Critical Care Time Critical Care Time Critical Care Time: Yes Total Critical Care Time: 35 Attestation: The patient was critically ill with a high probability of imminent or life-threatening deterioration. I spent greater than 30 minutes of discontinuous time evaluating the patient, delivering critical care at the bedside, discussing evaluating data with consultants. Critical care time does not include time spent performing separately billable procedures or teaching. Time spent performing critical care with 35 minutes. Discharge Plan Discharge Clinical Impression: Acute exacerbation of chronic obstructive pulmonary disease Patient Disposition: Admitted As Inpatient
--- NOTE | 2023-12-24 22:05 | ECG_ITS ---
Test Reason : DYSPNEA Blood Pressure : / mmHG Vent. Rate : 105 BPM Atrial Rate : 105 BPM P-R Int : 160 ms QRS Dur : 088 ms QT Int : 356 ms P-R-T Axes : -02 -60 035 degrees QTc Int : 470 ms Sinus tachycardia Left axis deviation Abnormal ECG When compared with ECG of 07-DEC-2023 16:10, No significant change was found Referred By: Ed Larson Electronically Signed By:KIRA BREWSTER
[2023-12-24 22:55] LABS: Basophils Percent Auto 0.3 % (0-2); Eosinophils Absolute Auto 0.2 X10*3/uL (0.0-0.4); Eosinophils Percent Auto 3.1 % (0-4); Hematocrit 43.4 % (37.0-47.0); Hemoglobin 13.5 g/dl (12.0-16.0); Imm Gran Abs Auto 0.03 X10*3/uL (0.00-0.03); Imm Gran Pct Auto 0.4 % (0.0-0.4); Lymphocytes Absolute Auto 1.8 X10*3/uL (1.2-4.9); Lymphocytes Percent Auto 24.4 % (20-40); MANUAL DIFF FLAG SCAN; Mean Corpuscular HGB Conc 31.1 g/dl (31.0-35.0); Mean Corpuscular Hemoglobin 28.2 pg (27.0-33.0); Mean Corpuscular Volume 90.8 fL (80.0-98.0); Mean Platelet Volume 10.6 fL (9.4-12.3); Monocytes Absolute Auto 0.5 X10*3/uL (0.1-1.2); Monocytes Percent Auto 6.2 % (2-11); Neutrophils Absolute Auto 4.9 x10*3/uL (2.0-8.3); Neutrophils Percent Auto 65.6 % (45-73); PLT CLUMP 1; Red Blood Count 4.78 X10*6/uL (4.20-5.50); Red Cell Distribution Width 14.8 % (11.0-16.0); SCAN SMEAR FLAG 1
[2023-12-24 22:56] LABS: Platelet Count 113 X10*3/uL (160-400); White Blood Count 7.4 X10*3/uL (4.8-10.8)
[2023-12-24 23:05] LABS: VBG Base Excess 22.3 mmol/L; VBG HCO3 48 mmol/L (22-26); VBG pCO2 53 mmHg; VBG pH 7.56 (7.32-7.43); VBG pO2 120 mmHg
[2023-12-24] MEDS: methylPREDNISolone Sod Succ 125 MG/2 ML VIAL 80 MG IVPUSH (23:05)
[2023-12-24 23:10] LABS: Venous Blood Gas Refer to POC result
[2023-12-24 23:19] LABS: Alanine Aminotransferase 24 U/L (0-31); Alkaline Phosphatase 97 U/L (39-117); Anion Gap 12 (12-20); Aspartate Amino Transferase 30 U/L (5-31); Bilirubin Direct 0.1 mg/dL (0.0-0.5); Bilirubin Total 0.5 mg/dL (0.0-1.0); Blood Urea Nitrogen 12 mg/dL (9-16); C Reactive Protein 0.47 mg/dL (< or = 0.50); Calcium 9.7 mg/dL (8.4-10.2); Carbon Dioxide 37 mmol/L (22-29); Chloride 92 mmol/L (96-108); Creatinine Clr Calc Pharmacy 102.1; Estimated Glomerular Filt Rate > 60; Glucose Random 138 mg/dL (60-115); Magnesium 2.3 mg/dL (1.6-2.6); Potassium 5.3 mmol/L (3.3-5.1); Sodium 136 mmol/L (135-145); Total Protein 7.9 g/dL (6.5-8.0)
[2023-12-24 23:31] LABS: Troponin-I High Sensitivity < 2.7 ng/L (<3.5-17.0)
[2023-12-24 23:37] LABS: SLIDE REVIEW VERIFIED
[2023-12-24 23:44] LABS: Influenza A PCR NEGATIVE (Negative); Influenza B PCR NEGATIVE (Negative); Resp Syncy Virus RNA Qual PCR NEGATIVE (Negative); SARS COV2 PCR INHOUSE NEGATIVE (Negative)
[2023-12-25] VITALS (15 sets, daily range): BP systolic 120–139; BP diastolic 61–83; PULSE 84–100; RESP 14–20; TEMP 36.7–37.1; O2SAT 84–98
[2023-12-25] MEDS: Albuterol Sulfate 7.5 MG, Albuterol Sulfate (0.083%) 2.5 MG 10 MG INHALE (01:04)
[2023-12-25] MEDS: Albuterol Sulfate 7.5 MG, Albuterol/Iprat 2.5/0.5MG 3 ML 3 ML INHALE (01:45)
[2023-12-25] MEDS: Azithromycin 500 MG in 0.9 % Sodium Chloride 250 ML 125 MG IV (02:09)
--- NOTE | 2023-12-25 03:04 | P.HPHOSP_ITS ---
History of Present Illness Date of Service: 12/25/23 Chief Complaint: Dyspnea This is a 58-year-old female with pertinent history of chronic hypoxemic respiratory failure due to COPD on 4-6 L supplemental oxygen, hypothyroidism, opiate use disorder, HCV cirrhosis, mood disorder, hypertension, gastroesophageal reflux disease, mixed hyperlipidemia who presents to the emergency department for evaluation of dyspnea. Patient states symptoms started 5 days prior to presentation. She has been feeling unwell and has been having dyspnea which is worse with exertion. Also has been having cough with purulent sputum production. Has associated wheezing which is not relief with home inhaler. No fever, chills, chest pain, palpitations, abdominal pain, changes in urinary or bowel habits. Denies orthopnea or PND In the emergency department, patient with wheezing despite multiple DuoNeb treatments. Review of Systems 2 Constitutional: Constitutional: Reports fatigue and Reports malaise Cardiovascular: Cardiovascular: Reports dyspnea on exertion Respiratory: Respiratory: Reports cough, Reports dyspnea on exertion and Reports wheezing Endocrine: Endocrine: Reports fatigue Allergic/Immunologic: Allergic/Immunologic: Reports wheezing [facility] Medical History (Updated 12/25/23 @ 02:59 by Ed Larson MD) Nausea and vomiting COVID Community acquired pneumonia Colon cancer screening COPD (chronic obstructive pulmonary disease) Methadone dependence Alcoholic cirrhosis Hepatitis C Pulmonary edema Polysubstance abuse Hypertension Acute and chronic respiratory failure Hypotension Respiratory failure Acute respiratory failure, unspecified whether with hypoxia or hypercapnia Hyperlipidemia Psychosis Hypoxia Acute exacerbation of chronic obstructive airways disease HTN (hypertension) Hypothyroid COPD (chronic obstructive pulmonary disease) Family History Father HTN (hypertension) Mother Gastritis Ovarian cancer Arthritis Son Thyroid disease Other Hypothyroid Social History Household Members: Unknown / Unable to assess Household Members Other:: 1 Housing: Unknown / Unable to assess Do you presently have visiting nurse or other home services: Yes Alcohol intake: current Alcohol intake frequency: does not drink Patient Tobacco Use Status: Tobacco use Unknown Tobacco use type: Cigarette Cigarette Packs Per Day: 1 Cigarettes Per Day: 10 Years Smoked: 30 Smoked in Last 30 Days: Yes e-Cigarette/Vaping Use: Never Used Second Hand Smoke Exposure: No Use of substances other than those prescribed or required for medical reasons: No Substance Use Type: Heroin Advance Directives: Yes Advance Directives on File: Yes Advance Directives Date on File: 08/18/23 Do you have a plan to hurt others: No Plan Patient : No service: No Current occupational status: unemployed Meds Allergies Allergy/AdvReac Type Severity Reaction Status Date / Time Penicillins [PENICILLINS] Allergy Unknown RED ITCHY Verified 12/24/23 21:41 RASH SEAFOOD Allergy Unknown FEVER Uncoded 12/24/23 21:41 SWELLING Home Medications ?Medication ?Instructions ?Recorded ?Confirmed ?Last Taken ?Type rosuvastatin 20 mg tablet 20 mg PO BEDTIME 03/11/20 12/08/23 12/06/23 History perphenazine 4 mg tablet 4 mg PO BEDTIME 09/24/21 12/08/23 12/06/23 History levothyroxine 200 mcg tablet 200 mcg PO DAILY@0610/01/22 12/08/23 12/06/23 History sertraline 25 mg tablet 25 mg PO DAILY@1200 10/01/22 12/08/23 12/06/23 History umeclidinium 62.5 mcg/actuation 1 inh inhalation DAILY 10/01/22 12/08/23 12/06/23 History blister powder for inhalation (Incruse Ellipta) ipratropium 0.5 mg-albuterol 3 mg 3 ml inhalation QID PRN wheezing 04/20/23 12/08/23 12/06/23 History (2.5 mg base)/3 mL nebulization soln sertraline 100 mg tablet 100 mg PO DAILY@1200 04/20/23 12/08/23 12/06/23 History metformin 500 mg tablet,extended 500 mg PO DAILY@1700 07/01/23 12/08/23 12/06/23 History release 24 hr furosemide 20 mg tablet 20 mg PO BID 08/16/23 12/08/23 12/06/23 History levothyroxine 25 mcg tablet 25 mcg PO DAILY@0608/16/23 12/08/23 12/06/23 History amlodipine 10 mg tablet 5 mg PO DAILY@1200 09/03/23 12/08/23 12/06/23 History albuterol sulfate 90 mcg/actuation 2 puff inhalation Q6H PRN wheezing 10/06/23 12/08/23 12/06/23 History aerosol inhaler (Ventolin HFA) fluticasone 500 mcg-salmeterol 50 1 ea inhalation BID 10/06/23 12/08/23 12/06/23 History mcg/dose blistr powdr for inhalation (Advair Diskus) lidocaine 5 % topical patch 1 patch topical DAILY PRN Pain 10/26/23 12/08/23 12/06/23 History acetaminophen 500 mg tablet 1,000 mg PO Q8H PRN moderate pain 12/08/23 12/08/23 12/06/23 History hydrocortisone 2.5 % topical cream 1 appl topical BID PRN Itching 12/08/23 12/08/23 12/06/23 History hydroxyzine pamoate 25 mg capsule 25 mg PO Q6H PRN itch 12/08/23 12/08/23 Unknown History prednisone 20 mg tablet 20 mg PO DAILY 12/08/23 12/08/23 Unknown History varenicline 0.5 mg (11)-1 mg (42) ea PO DIRECTED 12/08/23 Unknown History tablets in a dose pack Physical Exam 2 Vital Signs and Narrative: Vital Signs: Last Vital Signs Temp 99.9 F 12/24/23 21:47 Pulse 92 12/25/23 02:02 Resp 19 12/25/23 02:02 BP 135/61 12/25/23 02:02 Pulse Ox 89 L 12/25/23 02:02 O2 Del Method Oxymask 12/25/23 02:02 O2 Flow Rate 6 12/24/23 21:47 Oxygen Flow Rate 6 12/24/23 21:37 BMI result Body Mass Index 30.7 Middle-aged female lying in bed in mild distress on supplemental oxygen Neck supple, no JVD Regular rate and rhythm, S1-S2 heard Bilateral wheezing present Abdomen soft nontender, no guarding, no rigidity Patient is awake, alert and oriented to self, place, time and person ; no focal motor deficit Psych: Normal mood No pedal edema Results Labs 12/24/23 22:45 12/24/23 22:45 Labs: Laboratory Results - last 24 hr 12/24/23 12/24/23 12/24/23 22:05 22:45 22:57 MCV 90.8 MCH 28.2 MCHC 31.1 RDW 14.8 Plt Count 113 L D MPV 10.6 Immature Gran % (Auto) 0.4 Neut % (Auto) 65.6 Lymph % (Auto) 24.4 [place] % (Auto) 6.2 Eos % (Auto) 3.1 Baso % (Auto) 0.3 Lymph # (Auto) 1.8 Bound[place] # (Auto) 0.5 Eos # (Auto) 0.2 Baso # (Auto) 0.0 Abs Immat Gran (auto) 0.03 Absolute Neuts (auto) 4.9 Absolute Nucleated RBC 0.000 Nucleated RBC % (auto) 0.0 Smear Tech's Comments VERIFIED VBG pH 7.56 H VBG pCO2 53 VBG pO2 120 VBG HCO3 48 H VBG O2 Saturation 100.0 VBG Base Excess 22.3 Anion Gap 12 Estim Creat Clear Calc 102.1 Estimated GFR > 60 Random Glucose 138 H Calcium 9.7 Magnesium 2.3 Total Bilirubin 0.5 Direct Bilirubin 0.1 AST 30 ALT 24 Alkaline Phosphatase 97 Troponin I High Sens < 2.7 C-Reactive Protein 0.47 Total Protein 7.9 Albumin 4.0 Influenza Type A (PCR) NEGATIVE Influenza Type B (PCR) NEGATIVE RSV RNA Qual (PCR) NEGATIVE SARS-CoV-2 RNA (RT-PCR) NEGATIVE Imaging Radiologist's Impressions: Impressions Chest X-Ray 12/24/23 22:05 IMPRESSION: Bibasilar atelectasis, left greater than right. Electronically signed by: Ronny Louis MD 12/24/2023 10:41 PM EDT RP Assessment and Plan (1) Acute exacerbation of chronic obstructive pulmonary disease: Status: Acute Plan This is a 58-year-old female with pertinent history of chronic hypoxemic respiratory failure due to COPD on 4-6 L supplemental oxygen, hypothyroidism, opiate use disorder, HCV cirrhosis, mood disorder, hypertension, gastroesophageal reflux disease, mixed hyperlipidemia who presents to the emergency department for evaluation of dyspnea. #. Acute respiratory distress on chronic hypoxic respiratory failure due to acute exacerbation of COPD: Will admit patient with systemic steroids. Scheduled and p.r.n. DuDeanbs. Initiating azithromycin for pleiotropic effect. #. Hypothyroid: On Synthroid #. Opiate use disorder: On methadone #. HCV cirrhosis: No decompensation on admission #. Mood disorder: Continue home mood stabilizers #. Hypertension: On amlodipine #. Mixed hyperlipidemia: On statin Med rec pending DVT prophylaxis: Lovenox Full code Quality Stroke Does the patient have a stroke diagnosis?: No VTE Prior VTE?: No VTE Risk Level:: Medical - moderate - high VTE Device Contraindication: Treatment Not Indicated VTE Drug Contraindication: N/A - Med Ordered
[2023-12-25] MEDS: Enoxaparin Sodium 40 MG/0.4 ML SYRINGE SUBCUT (04:43)
[2023-12-25 05:46] LABS: MANUAL DIFF FLAG NO
[2023-12-25 05:57] LABS: Basophils Percent Auto 0.2 % (0-2); Hematocrit 42.3 % (37.0-47.0); Hemoglobin 12.9 g/dl (12.0-16.0); Imm Gran Abs Auto 0.05 X10*3/uL (0.00-0.03); Imm Gran Pct Auto 0.8 % (0.0-0.4); Lymphocytes Absolute Auto 0.6 X10*3/uL (1.2-4.9); Lymphocytes Percent Auto 8.6 % (20-40); Mean Corpuscular HGB Conc 30.5 g/dl (31.0-35.0); Mean Corpuscular Hemoglobin 28.2 pg (27.0-33.0); Mean Corpuscular Volume 92.4 fL (80.0-98.0); Mean Platelet Volume 11.4 fL (9.4-12.3); Monocytes Absolute Auto 0.1 X10*3/uL (0.1-1.2); Monocytes Percent Auto 0.8 % (2-11); Neutrophils Absolute Auto 5.8 x10*3/uL (2.0-8.3); Neutrophils Percent Auto 89.6 % (45-73); Platelet Count 114 X10*3/uL (160-400); Red Blood Count 4.58 X10*6/uL (4.20-5.50); Red Cell Distribution Width 14.9 % (11.0-16.0); White Blood Count 6.5 X10*3/uL (4.8-10.8)
[2023-12-25 06:11] LABS: Anion Gap 14 (12-20); Blood Urea Nitrogen 14 mg/dL (9-16); Calcium 9.4 mg/dL (8.4-10.2); Carbon Dioxide 39 mmol/L (22-29); Chloride 92 mmol/L (96-108); Creatinine Clr Calc Pharmacy 89.6; Estimated Glomerular Filt Rate > 60; Glucose Random 277 mg/dL (60-115); Potassium 3.9 mmol/L (3.3-5.1); Sodium 141 mmol/L (135-145)
--- NOTE | 2023-12-25 07:00 | PC.NURSE ---
Report taken from Ivett Brown RN
[2023-12-25] MEDS: Albuterol/Iprat 2.5/0.5MG 3 ML AMPUL.NEB INHALE ×4 (07:21→19:36)
--- NOTE | 2023-12-25 07:42 | PM.EVENT ---
Event Note Date of Service: 12/25/23 Event Note: This is a 58-year-old female with pertinent history of chronic hypoxemic respiratory failure due to COPD on 4-6 L supplemental oxygen, hypothyroidism, opiate use disorder, HCV cirrhosis, mood disorder, hypertension, gastroesophageal reflux disease, mixed hyperlipidemia who presents to the emergency department for evaluation of dyspnea. Acute respiratory failure on chronic hypoxic respiratory failure due to acute exacerbation of COPD systemic steroids Scheduled and p.r.n. DuoNebs. Initiating azithromycin for pleiotropic effect. supplemental oxygen to keep o2 sats> 90% Primary metabolic alkalosis with secondary respiratory Alkalosis secondary to COPD exacerbation continue treatment as above DM2 ss, ada diet Hypothyroid On Synthroid Opiate use disorder On methadone HCV cirrhosis No decompensation on admission Mood disorder Continue home mood stabilizers HTN On amlodipine Mixed hyperlipidemia On statin DVT prophylaxis: Jose Miguel Attending Dr. Whitley Full code Time Spent With Patient Time: Total time managing care of this patient today ____ minutes.
--- NOTE | 2023-12-25 07:48 | PHA.MEDREC ---
Pharmacy Consult ? Medication Reconciliation Pharmacy has completed the medication reconciliation. Patient has list but poor historian, recently discharged 12/10. Utilized discharge packet which matched claim history
--- NOTE | 2023-12-25 08:03 | PC.NURSE ---
Pt. pulled IV out by getting caught on telemetry wires. Bed change and being cleaned up per ED staff. Requesting a Lidocaine patch- Leo Larson MD notified.
--- NOTE | 2023-12-25 08:11 | PC.NURSE ---
20G to R upper forearm placed. Tolerated well. Good blood return.
[2023-12-25] MEDS: Lidocaine 4 % Patch ADH..PATCH 2 PATCH TRANSDERMA (10:02)
[2023-12-25] MEDS: methylPREDNISolone Sod Succ 40 MG/ML VIAL IVPUSH ×2 (10:03→21:33)
[2023-12-25] MEDS: Furosemide 20 MG TABLET PO ×2 (10:03→21:25)
--- NOTE | 2023-12-25 10:15 | PC.NURSE ---
Spoke with Mica Ghosh LPN at [facility] to verify pt.'s last Methadone dosage. Per Mica, pt. is dosed with 60mg/daily, but they are unsure as to when her last dose was because pt. is on a homebound program. As it was explained to this RN, the homebound program means that a nurse visits the pt.'s residence every morning and doses her. Pt. has not had her homebound Methadone dose this morning because [place] has [place] [facility] [place]
--- NOTE | 2023-12-25 10:23 | PC.NURSE ---
Methadone verification form faxed to pharmacy
--- NOTE | 2023-12-25 10:28 | HE.PHANOTE ---
RE: methadone Patient gets 60mg daily via homebound program per [facility]. Daily visiting nurse, last dose 12/24/23
[2023-12-25] MEDS: methADONE HCl 20 MG/2 ML ORAL.CONC 60 MG PO (11:43)
[2023-12-25 12:22] LABS: Glucose, Whole Blood 272 mg/dL (60-115)
[2023-12-25] MEDS: Insulin Lispro 100 UNIT/ML 3 ML VIAL SUBCUT ×3 (12:47→21:24)
[2023-12-25] MEDS: amLODIPine Besylate 5 MG TABLET PO (12:47)
[2023-12-25] MEDS: Sertraline HCL 25 MG TABLET PO (12:47)
[2023-12-25] MEDS: Sertraline HCL 100 MG TABLET PO (12:47)
[2023-12-25] MEDS: Omeprazole 20 MG CAPSULE.DR PO (12:47)
--- NOTE | 2023-12-25 13:41 | MHC.CM.PN ---
PT LIVES WITH SHE HAS A INSURANCE BROKER AND HOME 02 SHE WILL ARRANGE HER OWN TRANSPORT HOME [facility] W/FAMILY AND INSURANCE BROKER
[2023-12-25 18:14] LABS: Glucose, Whole Blood 189 mg/dL (60-115)
--- NOTE | 2023-12-25 19:00 | PC.NURSE ---
Report given to Yusra Samuel RN
[2023-12-25 21:02] LABS: Glucose, Whole Blood 234 mg/dL (60-115)
[2023-12-25] MEDS: Famotidine 20 MG TABLET 40 MG PO (21:24)
[2023-12-25] MEDS: Perphenazine 4 MG TABLET PO (21:26)
[2023-12-25] MEDS: Atorvastatin Calcium 80 MG TABLET PO (21:26)
--- NOTE | 2023-12-25 21:39 | PC.NURSE ---
Patient is alert and oriented x4, VSS. Patient denies any pain at present . Patient reports chronic back pain that is well managed with Lidocaine patch. Patient medicated per MAR. Patient assisted to use a bedside commode and back to bed. Patient denies discomfort with urination . Currently patient resting on the stretcher bed, watching TV, call may in patient's reach.
[2023-12-26] VITALS (9 sets, daily range): BP systolic 130–141; BP diastolic 70–89; PULSE 78–94; RESP 13–20; TEMP 36–36.8; O2SAT 89–97
[2023-12-26] MEDS: 0.9 % Sodium Chloride Flush 3 ML SYRINGE IVFLUSH ×3 (00:19→19:28)
[2023-12-26] MEDS: Azithromycin 500 MG in 0.9 % Sodium Chloride 250 ML 125 MG IV (00:20)
--- NOTE | 2023-12-26 00:35 | PC.NURSE ---
Patient requested and given jello and zero sugar francia jessica. Patient tolerated well.
[2023-12-26] MEDS: Enoxaparin Sodium 40 MG/0.4 ML SYRINGE SUBCUT (03:45)
[2023-12-26] MEDS: Levothyroxine Sodium 25 MCG TABLET 12.5 MCG PO (06:20)
[2023-12-26] MEDS: Levothyroxine Sodium 200 MCG TABLET PO (06:20)
[2023-12-26] MEDS: methADONE HCl 20 MG/2 ML ORAL.CONC 60 MG PO (07:56)
[2023-12-26] MEDS: Furosemide 20 MG TABLET PO (07:56)
[2023-12-26 08:06] LABS: Glucose, Whole Blood 196 mg/dL (60-115)
[2023-12-26] MEDS: Insulin Lispro 100 UNIT/ML 3 ML VIAL SUBCUT ×3 (08:09→20:32)
[2023-12-26] MEDS: Albuterol/Iprat 2.5/0.5MG 3 ML AMPUL.NEB INHALE ×3 (10:25→20:39)
[2023-12-26] MEDS: amLODIPine Besylate 5 MG TABLET PO (11:07)
[2023-12-26] MEDS: Sertraline HCL 100 MG TABLET PO (11:07)
[2023-12-26] MEDS: Sertraline HCL 25 MG TABLET PO (11:07)
[2023-12-26] MEDS: methylPREDNISolone Sod Succ 40 MG/ML VIAL IVPUSH ×2 (11:07→20:33)
[2023-12-26] MEDS: Omeprazole 20 MG CAPSULE.DR PO (11:07)
--- NOTE | 2023-12-26 11:11 | HO.PM.IMPN ---
Subjective Subjective Date of Service: 12/26/23 Review of Systems Follow up COPD exacerbation feeling better but still sob Physical Exam Vital Signs: Vital Signs: Last Vital Signs Temp 97.9 F 12/26/23 10:46 Pulse 93 12/26/23 10:46 Resp 20 12/26/23 10:46 BP 139/89 12/26/23 10:46 Pulse Ox 89 L 12/26/23 10:46 O2 Del Method Nasal Cannula 12/26/23 10:46 O2 Flow Rate 6 12/26/23 10:46 Oxygen Flow Rate 6 12/24/23 21:37 BMI result Body Mass Index 30.7 Appearing in no acute distress lung sounds exp wheezing heart regular rate rhythm, clear S1, S2 positive bowel sounds, abdomen is soft, nontender neuro patient is alert x3, no focal deficits Objective Data Active Medications Acetaminophen (Acetaminophen 325 Mg Tablet) 650 mg PO Q6H PRN PRN Reason: Pain, Mild (Pain Scale 1-3), fever or headache Albuterol Sulfate (Albuterol Sulfate 90 Mcg 8 Gm Inhaler) 2 puff INHALE Q6H PRN PRN Reason: wheezing Albuterol/Ipratropium (Albuterol/Iprat 2.5/0.5mg 3 Ml Ampul.Neb) 3 ml INHALE RQ4H WHILE AWAKE [facility] Last Admin: 12/26/23 10:25 Dose: 3 ml Documented By: OJSE Albuterol/Ipratropium (Albuterol/Iprat 2.5/0.5mg 3 Ml Ampul.Neb) 3 ml INHALE Q4H PRN PRN Reason: Wheezing Albuterol/Ipratropium (Albuterol/Iprat 2.5/0.5mg 3 Ml Ampul.Neb) 3 ml INHALE QID PRN PRN Reason: wheezing Amlodipine Besylate (Amlodipine Besylate 5 Mg Tablet) 5 mg PO DAILY@1200 MAYRA; Protocol Last Admin: 12/26/23 11:07 Dose: 5 mg Documented By: KENDAL Atorvastatin Calcium (Atorvastatin Calcium 80 Mg Tablet) 80 mg PO BEDTIME [facility] Last Admin: 12/25/23 21:26 Dose: 80 mg Documented By: VASQUEZ Calcium Carbonate (Calcium Carbonate 750 Mg Tab.Chew) 750 mg PO Q4H PRN PRN Reason: Heartburn Docusate Sodium (Docusate Sodium 100 Mg Capsule) 100 mg PO BID PRN PRN Reason: Constipation Enoxaparin Sodium (Enoxaparin Sodium 40 Mg/0.4 Ml Syringe) 40 mg SUBCUT Q24H [facility] Last Admin: 12/26/23 03:45 Dose: 40 mg Documented By: VASQUEZ Famotidine (Famotidine 20 Mg Tablet) 40 mg PO BEDTIME [facility] Last Admin: 12/25/23 21:24 Dose: 40 mg Documented By: VASQUEZ Fluticasone/Vilanterol (Fluticasone/Vilanterol 200/25 Blst.W.Dev) 1 puff INHALE RDAILY [facility] Furosemide (Furosemide 20 Mg Tablet) 20 mg PO BID [facility]; Protocol Last Admin: 12/26/23 07:56 Dose: 20 mg Documented By: BETH Glucose (Glucose Gel 15 Gm Gel..Gram.) 15 gm PO Q15M PRN; Protocol PRN Reason: per Hypoglycemia Standing Ord. Hydroxyzine HCl (Hydroxyzine Hcl 25 Mg Tablet) 25 mg PO Q6H PRN PRN Reason: itch Azithromycin 500 mg/ Sodium (Chloride) 250 mls @ 125 mls/hr IV Q24H [facility] Last Infusion: 12/26/23 02:21 Dose: Infused Documented By: VASQUEZ Dextrose (D10) 250 mls @ 750 mls/hr IV Q15M PRN; Protocol PRN Reason: per Hypoglycemia Standing Ord. Insulin Human Lispro (Insulin Lispro 100 Unit/Ml 3 Ml Vial) 0 unit SUBCUT QIDACHS [facility]; Protocol Last Admin: 12/26/23 08:09 Dose: 2 unit Documented By: BETH Levothyroxine Sodium (Levothyroxine Sodium 25 Mcg Tablet) 12.5 mcg PO DAILY@0600 [facility] Last Admin: 12/26/23 06:20 Dose: 12.5 mcg Documented By: VASQUEZ Levothyroxine Sodium (Levothyroxine Sodium 200 Mcg Tablet) 200 mcg PO DAILY@0600 [facility] Last Admin: 12/26/23 06:20 Dose: 200 mcg Documented By: VASQUEZ Magnesium Hydroxide (Milk Of Magnesia 30 Ml Oral.Susp) 30 ml PO DAILY PRN PRN Reason: Constipation Melatonin (Melatonin 3 Mg Tablet) 6 mg PO BEDTIME PRN PRN Reason: Insomnia Methadone HCl (Methadone Hcl 20 Mg/2 Ml Oral.Conc) 60 mg PO DAILY@0800 [facility] Last Admin: 12/26/23 07:56 Dose: 60 mg Documented By: BETH Co-signed By: MITCHELL Methylprednisolone Sodium Succinate (Methylprednisolone Sod Succ 40 Mg/Ml Vial) 40 mg IVPUSH Q12H [facility] Last Admin: 12/26/23 11:07 Dose: 40 mg Documented By: KENDAL Omeprazole (Omeprazole 20 Mg Capsule.Dr) 20 mg PO DAILY@1200 [facility] Last Admin: 12/26/23 11:07 Dose: 20 mg Documented By: KENDAL Ondansetron HCl (Ondansetron Hcl 4 Mg/2 Ml Vial) 4 mg IVPUSH Q8H PRN PRN Reason: Nausea and Vomiting Perphenazine (Perphenazine 4 Mg Tablet) 4 mg PO BEDTIME [facility] Last Admin: 12/25/23 21:26 Dose: 4 mg Documented By: VASQUEZ Senna (Sennosides 8.6 Mg Tablet) 17.2 mg PO BEDTIME PRN PRN Reason: constipation Sertraline HCl (Sertraline Hcl 25 Mg Tablet) 25 mg PO DAILY@1200 [facility] Last Admin: 12/26/23 11:07 Dose: 25 mg Documented By: KENDAL Sertraline HCl (Sertraline Hcl 100 Mg Tablet) 100 mg PO DAILY@1200 [facility] Last Admin: 12/26/23 11:07 Dose: 100 mg Documented By: KENDAL Sodium Chloride (0.9 % Sodium Chloride Flush 3 Ml Syringe) 3 ml IVFLUSH QSHIFT [facility] Last Admin: 12/26/23 08:10 Dose: 3 ml Documented By: BETH Labs 12/25/23 05:20 12/25/23 04:36 Labs: Laboratory Results - last 24 hr 12/25/23 12/25/23 12/25/23 12:17 18:09 20:58 POC Glucose 272 H 189 H 234 H 12/26/23 07:27 POC Glucose 196 H Assessment and Plan (1) Acute exacerbation of chronic obstructive pulmonary disease: Status: Acute Plan This is a 58-year-old female with pertinent history of chronic hypoxemic respiratory failure due to COPD on 4-6 L supplemental oxygen, hypothyroidism, opiate use disorder, HCV cirrhosis, mood disorder, hypertension, gastroesophageal reflux disease, mixed hyperlipidemia who presents to the emergency department for evaluation of dyspnea. Acute respiratory failure on chronic hypoxic respiratory failure due to acute exacerbation of COPD systemic steroids Scheduled and p.r.n. DuoNebs. azithromycin for pleiotropic effect. supplemental oxygen to keep o2 sats> 90% Primary metabolic alkalosis with secondary respiratory Alkalosis secondary to COPD exacerbation continue treatment as above DM2 ss, ada diet Hypothyroid On Synthroid Opiate use disorder On methadone HCV cirrhosis No decompensation on admission Mood disorder Continue home mood stabilizers HTN On amlodipine Mixed hyperlipidemia On statin DVT prophylaxis: Lovenox Attending Dr. Whitley Full code Quality Stroke Does the patient have a stroke diagnosis?: No VTE Prior VTE?: No VTE Risk Level:: Medical - moderate - high VTE Device Contraindication: Treatment Not Indicated VTE Drug Contraindication: N/A - Med Ordered
[2023-12-26 11:29] LABS: Glucose, Whole Blood 104 mg/dL (60-115)
[2023-12-26 16:20] LABS: Glucose, Whole Blood 253 mg/dL (60-115)
[2023-12-26] MEDS: Perphenazine 4 MG TABLET PO (19:28)
[2023-12-26] MEDS: Atorvastatin Calcium 80 MG TABLET PO (19:28)
[2023-12-26] MEDS: Famotidine 20 MG TABLET 40 MG PO (19:28)
[2023-12-26 20:11] LABS: Glucose, Whole Blood 270 mg/dL (60-115)
[2023-12-26] MEDS: Melatonin 3 MG TABLET 6 MG PO (21:17)
[2023-12-27] MEDS: Azithromycin 500 MG in 0.9 % Sodium Chloride 250 ML 125 MG IV (00:37)
[2023-12-27 04:00] VITALS: BP 146/92; PULSE 85; RESP 20; TEMP 36; O2SAT 92
[2023-12-27] MEDS: Levothyroxine Sodium 200 MCG TABLET PO (05:32)
[2023-12-27] MEDS: Levothyroxine Sodium 25 MCG TABLET 12.5 MCG PO (05:32)
[2023-12-27] MEDS: Enoxaparin Sodium 40 MG/0.4 ML SYRINGE SUBCUT (05:35)
--- NOTE | 2023-12-27 07:14 | P.DS_ITS ---
DS: Providers Provider Date of Service: 12/27/23 Date of admission: 12/25/23 15:56 Primary care physician: Cathleen Sears MD DS: Diagnosis Discharge Diagnosis (1) Acute exacerbation of chronic obstructive pulmonary disease: Status: Acute DS: Summary Hospital Course Hospital Course: History and physical as per admitting provider. This is a 58-year-old female with pertinent history of chronic hypoxemic respiratory failure due to COPD on 4-6 L supplemental oxygen, hypothyroidism, opiate use disorder, HCV cirrhosis, mood disorder, hypertension, gastroesophageal reflux disease, mixed hyperlipidemia who presents to the emergency department for evaluation of dyspnea. Patient states symptoms started 5 days prior to presentation. She has been feeling unwell and has been having dyspnea which is worse with exertion. Also has been having cough with purulent sputum production. Has associated wheezing which is not relief with home inhaler. No fever, chills, chest pain, palpitations, abdominal pain, changes in urinary or bowel habits. Denies orthopnea or PND. In the emergency department, patient with wheezing despite multiple DuoNeb treatments. 58-year-old woman treated for acute on chronic hypoxic respiratory failure secondary to COPD exacerbation. She was treated with IV steroids, scheduled and as needed bronchodilators and azithromycin floor pleiotropic effect. She chronically is on 4-6 L of oxygen at home. She was noted to have primary metabolic alkalosis with secondary respiratory alkalosis secondary to COPD exacerbation. Plan is to discharge home with remote areas of azithromycin and prednisone taper. Diabetes mellitus type 2. Continue home medications Hypothyroidism. Continue levothyroxine Opiate use disorder. Continue methadone Hepatitis-C cirrhosis. No decompensation during admission Mental health. Continue mood stabilizers Hypertension. Continue amlodipine Hyperlipidemia. Continue statin Time Attestation Discharge Coordination Time (in mins): 36 Quality: Safe Use of Opioids Does Pt have an Active Cancer Diagnosis on the Problem List?: No Quality: Stroke Does the patient have a stroke diagnosis?: No Physical Exam Vital Signs: Vital Signs: Last Vital Signs Temp 96.8 F 12/27/23 04:00 Pulse 85 12/27/23 04:00 Resp 20 12/27/23 04:00 BP 146/92 H 12/27/23 04:00 Pulse Ox 92 12/27/23 04:00 O2 Del Method Nasal Cannula 12/27/23 04:00 O2 Flow Rate 6 12/27/23 04:00 Oxygen Flow Rate 6 12/24/23 21:37 BMI result Body Mass Index 30.7 Appearing in no acute distress head is normocephalic atraumatic eyes pupils are PERRLA sclera is anicteric mouth throat mucous membranes are intact and moist neck is supple no lymphadenopathy, no JVD noted lung sounds are clear to auscultation heart regular rate rhythm, clear S1, S2 positive bowel sounds, abdomen is soft, nontender neuro patient is alert x3, no focal deficits DS: Data Data Completed and Pending Completed studies during hospitalization [Text1]: Procedures Assistance with Respiratory Ventilation, Less than 24 Consecutive Hours, Continuous Positive Airway Pressure (12/07/23) Insertion of Endotracheal Airway into Trachea, Via Natural or Artificial Opening (10/25/23) Insertion of Infusion Device into Superior Vena Cava, Percutaneous Approach (06/30/23) Introduction of Vasopressor into Peripheral Vein, Percutaneous Approach (10/25/23) Respiratory Ventilation, 24-96 Consecutive Hours (10/25/23) Respiratory Ventilation, Less than 24 Consecutive Hours (06/30/23) Ultrasonography of Superior Vena Cava, Guidance (06/30/23) Labs on day of discharge: Laboratory Results - last 24 hr 12/26/23 12/26/23 12/26/23 07:27 11:20 16:16 POC Glucose 196 H 104 253 H 12/26/23 20:06 POC Glucose 270 H Discharge Plan Discharge Anticipated Discharge Date/Time: 12/27/23 07:11 Patient Disposition: Home, Self-Care Discharge Diagnosis: Acute on chronic hypoxic respiratory failure COPD exacerbation Referrals: Cathleen Sears MD [Primary Care Provider] - 1 Week Discharge Medications: New prednisone 10 mg tablet See Taper PO DIRECTED Qty: 20 0RF Taper: Prednisone 40 mg daily for 2 Days and 0 Hour 30 mg daily for 2 Days and 0 Hour 20 mg daily for 2 Days and 0 Hour 10 mg daily for 2 Days and 0 Hour Rx Instructions: see taper instructions azithromycin 500 mg tablet 500 mg PO DAILY 3 Days Qty: 3 0RF Continued rosuvastatin 20 mg Tablet 20 mg PO BEDTIME ipratropium-albuterol 0.5 mg-3 mg(2.5 mg base)/3 mL solution for nebulization 3 ml inhalation QID PRN (Reason: wheezing) sertraline 100 mg Tablet 100 mg PO DAILY@1200 metformin 500 mg tablet extended release 24 hr 500 mg PO DAILY@1700 Rx Instructions: with dinner furosemide 20 mg tablet 20 mg PO BID levothyroxine 25 mcg tablet 12.5 mcg PO DAILY@0600 amlodipine 10 mg tablet 5 mg PO DAILY@1200 fluticasone propion-salmeterol [Advair Diskus] 500-50 mcg/dose blister with device 1 ea INHALATION BID albuterol sulfate [Ventolin HFA] 90 mcg/actuation HFA aerosol inhaler 2 puff INHALATION Q6H PRN (Reason: wheezing) lidocaine 5 % adhesive patch,medicated 1 patch topical DAILY PRN (Reason: Pain) Rx Instructions: on for 12 h off for 12 h methadone 10 mg/mL Concentrate 60 mg PO DAILY Qty: 1 0RF Rx Instructions: [facility] methadone clinic per pt- dose reduced during hospitalization to 60 mg acetaminophen 500 mg tablet 1,000 mg PO Q8H PRN (Reason: moderate pain) hydrocortisone 2.5 % cream 1 appl topical BID PRN (Reason: Itching) varenicline 0.5 mg (11)- 1 mg (42) tablets,dose pack 1 ea PO DIRECTED hydroxyzine pamoate 25 mg capsule 25 mg PO Q6H PRN (Reason: itch) perphenazine 4 mg tablet 4 mg PO BEDTIME sertraline 25 mg tablet 25 mg PO DAILY@1200 Incruse Ellipta 62.5 mcg/actuation blister with device 1 inh inhalation DAILY levothyroxine 200 mcg tablet 200 mcg PO DAILY@0600 pantoprazole 40 mg tablet,delayed release (DR/EC) 40 mg PO DAILY@1200 Qty: 30 6RF sennosides [senna] 8.6 mg tablet 17.2 mg PO BEDTIME PRN (Reason: constipation) Qty: 60 6RF simethicone 180 mg capsule 180 mg PO BIDAC Qty: 60 6RF famotidine 40 mg tablet 40 mg PO BEDTIME Qty: 30 6RF docusate sodium 100 mg capsule 100 mg PO BID PRN (Reason: Constipation) Qty: 60 6RF hydrocortisone [Proctosol HC] 2.5 % cream with perineal applicator 1 appl [place] BID Qty: 30 6RF Rx Instructions: BE SURE TO INCLUDE RECTAL APPICATOR!! Discharge Orders: Discharge Order (Routine); Ordered 12/27/23 Ordered By: Rosanna Herrera Diet: Advance to usual diet Activity on Discharge: As tolerated Stand Alone Forms: Patient Portal Discharge page Print Language: Syrian Care Plan Goals: Complete course of prednisone and azithromycin Health Concerns: Acute on chronic hypoxic respiratory failure COPD exacerbation Plan of Treatment: Follow-up with primary care provider as needed Take all medications as prescribed Assessment: See discharge summary
[2023-12-27 07:28] LABS: Glucose, Whole Blood 155 mg/dL (60-115)
[2023-12-27 07:32] VITALS: BP 154/92; PULSE 82; RESP 16; TEMP 36.4; O2SAT 94
[2023-12-27] MEDS: methADONE HCl 20 MG/2 ML ORAL.CONC 60 MG PO (07:53)
[2023-12-27] MEDS: Insulin Lispro 100 UNIT/ML 3 ML VIAL SUBCUT (07:54)
[2023-12-27] MEDS: 0.9 % Sodium Chloride Flush 3 ML SYRINGE IVFLUSH (07:54)
[2023-12-27] MEDS: Furosemide 20 MG TABLET PO (07:54)
[2023-12-27] MEDS: Albuterol/Iprat 2.5/0.5MG 3 ML AMPUL.NEB INHALE (08:16)
[2023-12-27] MEDS: Fluticasone/Vilanterol 200/25 BLST.W.DEV 1 PUFF INHALE (08:16)
[2023-12-27 08:18] VITALS: PULSE 82; RESP 16; O2SAT 94
--- NOTE | 2023-12-27 08:46 | MHC.CM.PN ---
DP: PT HAS BEEN MEDICALLY CLEARED FOR DC HOME, NO SERVICES. PT HAS OWN [facility] HOME.
== END 2023-12-27 10:33 | disposition home or self-care (01) | DRG 140 ==
LOC: HO.ED 12-25 02:59 → HO.EDOVER 12-25 03:11 → HO.S3 12-26 08:46
PROVIDERS: Admitting Provider Student in an Organized Health Care Education/Training Program; Emergency Provider Emergency Medicine; PCP Family Medicine; Visit Provider Nurse Practitioner Acute Care
DX: J44.1 Chronic obstructive pulmonary disease with (acute) exacerbation (principal); J96.21 Acute and chronic respiratory failure with hypoxia; E87.3 Alkalosis; K74.69 Other cirrhosis of liver; I10 Essential (primary) hypertension; F39 Unspecified mood [affective] disorder; E78.2 Mixed hyperlipidemia; Z99.81 Dependence on supplemental oxygen; E03.9 Hypothyroidism, unspecified; E11.9 Type 2 diabetes mellitus without complications; F11.20 Opioid dependence, uncomplicated; Z86.19 Personal history of other infectious and parasitic diseases; F17.210 Nicotine dependence, cigarettes, uncomplicated; Z71.6 Tobacco abuse counseling; Z20.822 Contact with and (suspected) exposure to COVID-19; Z79.51 Long term (current) use of inhaled steroids; Z79.84 Long term (current) use of oral hypoglycemic drugs; Z79.890 Hormone replacement therapy; Z79.899 Other long term (current) drug therapy
CPT/HCPCS: 0241U; 36415; 71045; 80048; 80076; 82803; 82947; 83735; 84484; 85025; 86140; 93005; 94640; 96374; 99285; J0456; J1650; J2919

== ENCOUNTER → 2023-12-25 03:02 | Outpatient (BNV) | payer MEDICAID, SELFPAY | PROVIDERS: Admitting Provider Student in an Organized Health Care Education/Training Program; Emergency Provider Emergency Medicine; Visit Provider Student in an Organized Health Care Education/Training Program | DX: J44.1 Chronic obstructive pulmonary disease with (acute) exacerbation (principal); J96.21 Acute and chronic respiratory failure with hypoxia | CPT/HCPCS: 99222; 99232; 99239; 99499 ==

== ENCOUNTER 2024-01-02 15:43 | Emergency (ER) | payer OTHER, MEDICAID, SELFPAY ==
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
[2024-01-02 16:09] VITALS: BP 114/81; BP 130/88; PULSE 104; PULSE 110; RESP 18; TEMP 36.2; O2SAT 91; O2SAT 92; BMI 29.5
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
[2024-01-02 19:52] VITALS: BP 114/81; PULSE 104; RESP 18; TEMP 36.2; O2SAT 91
== END 2024-01-02 19:52 | disposition home or self-care (01) ==
PROVIDERS: Emergency Provider Emergency Medicine
DX: S13.4XXA Sprain of ligaments of cervical spine, initial encounter (principal); V43.62XA Car passenger injured in collision with other type car in traffic accident, initial encounter; Y93.89 Activity, other specified; Y92.414 Local residential or business street as the place of occurrence of the external cause; Y99.9 Unspecified external cause status
CPT/HCPCS: 70450; 72125; 99284

== ENCOUNTER 2024-01-05 06:20 | Inpatient (IN) | payer MEDICAID, SELFPAY ==
[2024-01-05] VITALS (28 sets, daily range): BP systolic 98–162; BP diastolic 58–104; PULSE 63–120; RESP 14–32; TEMP 36.7–37.2; O2SAT 88–98; BMI 33.2
--- NOTE | ~2024-01-05 | XR_ITS ---
EXAMINATION: XR CHEST CLINICAL INFORMATION: Shortness of breath COMPARISON: December 24, 2023. TECHNIQUE: Frontal view of the chest was obtained. Apical lordotic projection. FINDINGS: Coarsened opacity seen in the medial right base suspicious for infiltrate or atelectasis. Possible atelectatic change in the peripheral left base. No pneumothorax seen. Pulmonary vascularity appears stable. No distinct enlarging pleural effusions observed. XR/XR chest 1V IMPRESSION: Findings suspicious for infiltrate or atelectasis in the medial right base. Possible atelectatic change in the peripheral left base. Electronically signed by: Freddie Rosado MD 01/05/2024 10:41 AM EDT
--- NOTE | 2024-01-05 07:01 | ECG_ITS ---
Test Reason : DIFF BREATHING Blood Pressure : / mmHG Vent. Rate : 112 BPM Atrial Rate : 112 BPM P-R Int : 154 ms QRS Dur : 090 ms QT Int : 342 ms P-R-T Axes : 000 -54 052 degrees QTc Int : 466 ms Sinus tachycardia Left axis deviation Abnormal ECG When compared with ECG of 24-DEC-2023 22:20, No significant change was found Referred By: Karen Sin Electronically Signed By:SEBASTIAN VAN MD
[2024-01-05] MEDS: 0.9 % Sodium Chloride 2,000 ML 999 ML IVCONT (07:11)
[2024-01-05] MEDS: methylPREDNISolone Sod Succ 125 MG/2 ML VIAL 60 MG IVPUSH (07:11)
[2024-01-05] MEDS: Magnesium Sulfate/H2O 2 GM/50 ML PIGGYBACK IV (07:11)
[2024-01-05] MEDS: Albuterol Sulfate 7.5 MG, Albuterol/Iprat 2.5/0.5MG 3 ML 3 ML INHALE ×2 (07:13→09:44)
[2024-01-05 07:31] LABS: Venous Blood Gas Refer to POC result
[2024-01-05 07:31] LABS: VBG Base Excess 20.6 mmol/L; VBG HCO3 49 mmol/L (22-26); VBG pCO2 66 mmHg; VBG pH 7.47 (7.32-7.43); VBG pO2 55 mmHg
--- NOTE | 2024-01-05 07:37 | PC.NURSE ---
is RN resumed care of pt at 0645. per previous RN, pt unable to maintain SPO2 on 15L via nonrebreather. per previous RN, pt unable to maintain SPO2 above 84%. upon this remote mortgage underwriter's arrival - RT/MD bedside - pt then placed on bipap w/ good effect. rate = 16/5 @ 35%. pt maintaining PSO2% around 91%-92% via bipap at this time. 20gIV placed in the right upper forearm via ultrasound guided. another 20gIV placed in nthe right forearm - labs obtained/sent to lab. IVF/medication administered per provider order. ekg performed by [employer] bedside obtaining 2nd set of cultures - will administer abx when able. pt currently remains on same settings via bipap at this time. otherwise vss and up to date aside from being sinus tachycardic on the business center representative. pt repositioned upright to promote patent airway. wob noted. respirations even/labored. plan of care ongoing.
[2024-01-05 07:39] LABS: Troponin-I High Sensitivity 5.3 ng/L (<3.5-17.0)
[2024-01-05 07:44] LABS: INTERNATIONAL NORM RATIO 0.8 (0.9-1.1); Prothrombin Time 9.8 SEC (10.9-12.4)
[2024-01-05] MEDS: cefTRIAXone sodium 1 GM in 0.9 % Sodium Chloride 50 ML IV (07:48)
[2024-01-05 07:50] LABS: Basophils Percent Auto 0.2 % (0-2); Eosinophils Absolute Auto 0.2 X10*3/uL (0.0-0.4); Eosinophils Percent Auto 1.5 % (0-4); Hematocrit 49.2 % (37.0-47.0); Hemoglobin 14.9 g/dl (12.0-16.0); Imm Gran Abs Auto 0.06 X10*3/uL (0.00-0.03); Imm Gran Pct Auto 0.5 % (0.0-0.4); Lymphocytes Absolute Auto 3.2 X10*3/uL (1.2-4.9); Lymphocytes Percent Auto 25.7 % (20-40); Mean Corpuscular HGB Conc 30.3 g/dl (31.0-35.0); Mean Corpuscular Hemoglobin 28.3 pg (27.0-33.0); Mean Corpuscular Volume 93.4 fL (80.0-98.0); Mean Platelet Volume 10.1 fL (9.4-12.3); Monocytes Percent Auto 8.4 % (2-11); Neutrophils Absolute Auto 7.8 x10*3/uL (2.0-8.3); Neutrophils Percent Auto 63.7 % (45-73); Platelet Count 169 X10*3/uL (160-400); Red Blood Count 5.27 X10*6/uL (4.20-5.50); White Blood Count 12.3 X10*3/uL (4.8-10.8)
[2024-01-05] MEDS: Azithromycin 500 MG in 0.9 % Sodium Chloride 250 ML 125 MG IV (07:50)
[2024-01-05 07:51] LABS: MANUAL DIFF FLAG NO
[2024-01-05 07:58] LABS: Lactic Acid 1.5 mmol/L (0.5-2.0)
--- NOTE | 2024-01-05 08:01 | ED_ITS ---
HPI - Altered Mental Status General Chief Complaint: Dyspnea Stated Complaint: COPD SOB Time Seen by Provider: 01/05/24 07:05 Source: patient, EMS and old records reviewed Mode of arrival: EMS Limitations: altered mental status History of Present Illness ED Provider: CAESAR SMITH narrative: 58 yo female well known to us with a PMH of DM, COPD, ETOH cirrhosis, GERD, pneumonia, recurrent bouts of respiratory failure and NIPPV use - I do not have much history from night staff or EMS reportedly call for unresponsive person. She was in respiratory distress. Patient arrived with pinpoint pupils and RT noted initial end tidals in 80s placed in bipap on arrival. able to find EMS report was at home - 85% on neb treatment, called initially for SOB MD complaint: altered mental status and decreased responsiveness Onset (ago): unknown Severity: severe Consistency of symptoms: waxing and waning Context: history of similar presentation Associated symptoms: denies other symptoms Treatments prior to arrival: oxygen Related Data Home Medications ?Medication ?Instructions ?Recorded ?Confirmed rosuvastatin 20 mg tablet 20 mg PO BEDTIME 03/11/20 12/25/23 perphenazine 4 mg tablet 4 mg PO BEDTIME 09/24/21 12/25/23 levothyroxine 200 mcg tablet 200 mcg PO DAILY@0610/01/22 12/25/23 sertraline 25 mg tablet 25 mg PO DAILY@119910/01/22 12/25/23 umeclidinium 62.5 mcg/actuation 1 inh inhalation DAILY 10/01/22 12/25/23 blister powder for inhalation (Incruse Ellipta) ipratropium 0.5 mg-albuterol 3 mg 3 ml inhalation QID PRN wheezing 04/20/23 12/25/23 (2.5 mg base)/3 mL nebulization soln sertraline 100 mg tablet 100 mg PO DAILY@1200 04/20/23 12/25/23 metformin 500 mg tablet,extended 500 mg PO DAILY@1700 07/01/23 12/25/23 release 24 hr furosemide 20 mg tablet 20 mg PO BID 08/16/23 12/25/23 levothyroxine 25 mcg tablet 12.5 mcg PO DAILY@0608/16/23 12/25/23 amlodipine 10 mg tablet 5 mg PO DAILY@119909/03/23 12/25/23 albuterol sulfate 90 mcg/actuation 2 puff inhalation Q6H PRN wheezing 10/06/23 12/25/23 aerosol inhaler (Ventolin HFA) fluticasone 500 mcg-salmeterol 50 1 ea inhalation BID 10/06/23 12/25/23 mcg/dose blistr powdr for inhalation (Advair Diskus) lidocaine 5 % topical patch 1 patch topical DAILY PRN Pain 10/26/23 12/25/23 acetaminophen 500 mg tablet 1,000 mg PO Q8H PRN moderate pain 12/08/23 12/25/23 hydrocortisone 2.5 % topical cream 1 appl topical BID PRN Itching 12/08/23 12/25/23 hydroxyzine pamoate 25 mg capsule 25 mg PO Q6H PRN itch 12/08/23 12/25/23 varenicline 0.5 mg (11)-1 mg (42) 1 ea PO DIRECTED 12/08/23 12/25/23 tablets in a dose pack Previous Rx's ?Medication ?Instructions ?Recorded methadone 10 mg/mL oral concentrate 60 mg (6 mL) PO DAILY #1 mL 11/01/23 docusate sodium 100 mg capsule 100 mg PO BID PRN Constipation #60 12/21/23 caps famotidine 40 mg tablet 40 mg PO BEDTIME #30 tabs 12/21/23 hydrocortisone 2.5 % topical cream [address] BID hemorrhoids #30 grams 12/21/23 with perineal applicator (Proctosol HC) pantoprazole 40 mg tablet,delayed 40 mg PO DAILY@1200 #30 tabs 12/21/23 release sennosides 8.6 mg tablet (senna) 17.2 mg (2 x 8.6 mg) PO BEDTIME 12/21/23 PRN constipation #60 tabs simethicone 180 mg capsule 180 mg PO BIDAC #60 caps 12/21/23 azithromycin 500 mg tablet 500 mg PO DAILY 3 days #3 tabs 12/27/23 prednisone 10 mg tablet See Taper PO DIRECTED #20 tabs 12/27/23 methocarbamol 750 mg tablet 750 mg PO Q8H PRN pain #15 tabs 01/02/24 Allergies Allergy/AdvReac Type Severity Reaction Status Date / Time Penicillins [PENICILLINS] Allergy Unknown RED ITCHY Verified 01/05/24 06:32 RASH SEAFOOD Allergy Unknown FEVER Uncoded 01/05/24 06:32 SWELLING Review of Systems 2 Review of Systems: ROS unable to be obtained due to altered mental status [facility] Past Medical History Attestation statement: The following information was validated with the patient. Source: old records reviewed Medical History Nausea and vomiting COVID Community acquired pneumonia Colon cancer screening COPD (chronic obstructive pulmonary disease) Methadone dependence Alcoholic cirrhosis Hepatitis C Pulmonary edema Polysubstance abuse Hypertension Acute and chronic respiratory failure Hypotension Respiratory failure Acute respiratory failure, unspecified whether with hypoxia or hypercapnia Hyperlipidemia Psychosis Hypoxia Acute exacerbation of chronic obstructive airways disease HTN (hypertension) Hypothyroid COPD (chronic obstructive pulmonary disease) Family History Family History Father HTN (hypertension) Mother Gastritis Ovarian cancer Arthritis Son Thyroid disease Other Hypothyroid Social History Social History Household Members: Significant Other Household Members Other:: 1 Housing: Apartment Do you presently have visiting nurse or other home services: Yes Alcohol intake: current Alcohol intake frequency: does not drink Patient Tobacco Use Status: Current someday Tobacco user Tobacco use type: Cigarette Cigarette Packs Per Day: 1 Cigarettes Per Day: 10 Years Smoked: 30 e-Cigarette/Vaping Use: Never Used Second Hand Smoke Exposure: No Substance Use Type: Heroin Advance Directives: Yes Advance Directives on File: Yes Advance Directives Date on File: 08/18/23 service: No Current occupational status: unemployed Physical Exam ED Vital Signs: Vital Signs - 24 hr 01/05/24 06:29 01/05/24 07:08 01/05/24 07:14 Temperature 99 F Pulse Rate 109 H 108 H Respiratory Rate 22 H 23 H 20 Blood Pressure 162/97 H Pulse Oximetry 89 L Oxygen Delivery Method Nasal Cannula 01/05/24 07:36 01/05/24 07:56 01/05/24 08:12 Temperature Pulse Rate 91 110 H 108 H Respiratory Rate 23 H 24 H 16 Blood Pressure 133/83 121/94 H 120/90 H Pulse Oximetry 91 L 91 L 89 L Oxygen Delivery Method BiPAP BiPAP BiPAP 01/05/24 08:44 01/05/24 09:15 01/05/24 09:20 Temperature Pulse Rate 116 H 116 H 120 H Respiratory Rate 28 H 16 20 Blood Pressure 158/96 H 146/80 H 135/86 Pulse Oximetry 97 93 91 L Oxygen Delivery Method BiPAP BiPAP BiPAP 01/05/24 09:43 01/05/24 11:12 Temperature Pulse Rate 119 H Respiratory Rate 24 H 32 H Blood Pressure Pulse Oximetry Oxygen Delivery Method BMI result Body Mass Index 33.2 Appearance: Somnolent but wakes to voice and responds to painful stimuli and pulls away and yells moderate acute distress. unkempt disheveled Eyes: Pinpoint but equal ENT: Pharynx normal. atraumatic Neck: Normal inspection. Neck supple. CVS: Normal heart rate and rhythm. Pulses normal. Respiratory: Moderate respiratory distress labored Breath sounds very diminished with wheezes throughout , diminished with crackles R side Abdomen: Soft and nontender. Skin: Skin warm and dry. Normal skin color. Normal skin turgor. Extremities: No lower extremity edema. Neuro: Somnolent. No motor deficit. No sensory deficit. Course Course Course Narrative: awake and alert now breathing on her own sats improved after low dose narcan 0.2mg before very somnolent 89% on bipap with poor effort not going over NIPPV rate Reevaluation(s) Reevaluation #1: off bipap 931am after narcan she is not happy with us is awake repeat hour long neb Reevaluation #2: repeat narcan 0.2mg pinpoint pupils sleepy 87% on 6L RR 7 Reevaluation #3: possible RML pneumonia - will add on flagyl in case of aspiration still hypoxic 86% at this time failed bipap trial will place her back on Bipap will discuss with ICU Additional Reevaluation(s): doesn't want bipap I don't want to intubate her IM zyprexa given she states she needs something to calm down IM zyprexa ordered she is agreeable to try it Medications Administered Generic Name Dose Route Start Last Admin Trade Name Freq PRN Reason Stop Dose Admin Metronidazole 500 mg in 100 mls @ 100 mls/hr 01/05/24 10:48 01/05/24 11:04 Flagyl IV 01/05/24 11:47 100 mls/hr ONCE ONE Administration Discontinued Medications Generic Name Dose Route Start Last Admin Trade Name Freq PRN Reason Stop Dose Admin Albuterol Sulfate 7.5 mg/ 0 mg 01/05/24 07:12 01/05/24 07:13 Albuterol/Ipratropium 3 ml INHALE 01/05/24 07:13 1 each ONCE ONE Administration Albuterol Sulfate 7.5 mg/ 0 mg 01/05/24 09:43 01/05/24 09:44 Albuterol/Ipratropium 3 ml INHALE 01/05/24 09:44 1 each ONCE ONE Administration Sodium Chloride 2,000 mls @ 999 mls/hr 01/05/24 07:02 01/05/24 11:01 Ns IVCONT 01/05/24 09:02 Infused .Q2H1M ONE Infusion Azithromycin 500 mg/ Sodium 250 mls @ 125 mls/hr 01/05/24 07:02 01/05/24 09:50 Chloride IV 01/05/24 09:01 Infused ONCE ONE Infusion Ceftriaxone Sodium 1 gm/ 50 mls @ 100 mls/hr 01/05/24 07:02 01/05/24 08:18 Sodium Chloride IV 01/05/24 07:31 Infused ONCE ONE Infusion Magnesium Sulfate 2 gm in 50 mls @ 150 mls/hr 01/05/24 07:06 01/05/24 07:31 Magnesium Sulfate/H2o IV 01/05/24 07:25 Infused ONCE ONE Infusion Methylprednisolone Sodium Succinate 60 mg 01/05/24 07:06 01/05/24 07:11 Methylprednisolone Sod Succ 125 Mg/2 Ml Vial IVPUSH 01/05/24 07:07 60 mg ONCE ONE Administration Naloxone HCl 0.2 mg 01/05/24 08:19 01/05/24 08:27 Naloxone Hcl 0.4 Mg/Ml Vial IVPUSH 01/05/24 08:20 0.2 mg STAT STA Administration Naloxone HCl 0.2 mg 01/05/24 10:38 01/05/24 10:41 Naloxone Hcl 0.4 Mg/Ml Vial IVPUSH 01/05/24 10:39 0.2 mg STAT STA Administration Olanzapine 5 mg 01/05/24 10:51 01/05/24 10:59 Olanzapine 10 Mg Vial IM 01/05/24 10:52 5 mg ONCE ONE Administration Medical Decision Making Medical Decision Making MDM Narrative: 58 yo female well known to us with a PMH of DM, COPD, ETOH cirrhosis, GERD, pneumonia, recurrent bouts of respiratory failure and NIPPV use at this time will need basic labs, cultures, VBG, empiric COPD abx coverage and start on steroids/magnesium. She is waking up and improving but suspect this is likely due to ongoing opiate use and intoxication. She has no signs of head trauma. Doubt ICH. Will monitor on Bipap for improvement and if necessary will start on very lose dose narcan. Differential Diagnosis Differential Diagnoses: The differential diagnosis associated with the presentation includes COPD, drug abuse, metabolic and toxic encephalopathy, chronic resp failure Admission/Observation Consideration of admission/observation: Escalation of care including admission/observation considered ICU to review case Dr. Knott to admit Consult Healthcare Provider Management of the patient was discussed with: High Lift Driver (Dr. Knott aware will review) Lab Data MDM Lab Attestation statement: I reviewed the patient's lab results. 01/05/24 07:42 01/05/24 08:19 Labs: Lab Results 01/05/24 01/05/24 01/05/24 Range/Units 07:10 07:27 07:31 WBC (4.8-10.8) X10*3/uL RBC (4.20-5.50) X10*6/uL Hgb (12.0-16.0) g/dl Hct (37.0-47.0) % MCV (80.0-98.0) fL MCH (27.0-33.0) pg MCHC (31.0-35.0) g/dl RDW (11.0-16.0) % Plt Count (160-400) X10*3/uL MPV (9.4-12.3) fL Immature Gran % (Auto) (0.0-0.4) % Neut % (Auto) (45-73) % Lymph % (Auto) (20-40) % [place] % (Auto) (2-11) % Eos % (Auto) (0-4) % Baso % (Auto) (0-2) % Lymph # (Auto) (1.2-4.9) X10*3/uL [place] # (Auto) (0.1-1.2) X10*3/uL Eos # (Auto) (0.0-0.4) X10*3/uL Baso # (Auto) (0.0-0.2) X10*3/uL Abs Immat Gran (auto) (0.00-0.03) X10*3/uL Absolute Neuts (auto) (2.0-8.3) x10*3/uL Absolute Nucleated RBC (0.0-0.012) X10*3/uL Nucleated RBC % (auto) (0.0-0.2) /100WBC Hold Purple Top PT 9.8 L (10.9-12.4) SEC INR 0.8 L (0.9-1.1) VBG pH 7.47 H (7.32-7.43) VBG pCO2 66 mmHg VBG pO2 55 mmHg VBG HCO3 49 H (22-26) mmol/L VBG O2 Saturation 90.0 % VBG Base Excess 20.6 mmol/L Sodium (135-145) mmol/L Potassium (3.3-5.1) mmol/L Chloride (96-108) mmol/L Carbon Dioxide (22-29) mmol/L Anion Gap (12-20) BUN (9-16) mg/dL Creatinine (0.5-1.4) mg/dL Estim Creat Clear Calc Estimated GFR Random Glucose (60-115) mg/dL Lactic Acid 1.5 (0.5-2.0) mmol/L Calcium (8.4-10.2) mg/dL Magnesium (1.6-2.6) mg/dL Total Bilirubin (0.0-1.0) mg/dL Direct Bilirubin (0.0-0.5) mg/dL AST (5-31) U/L ALT (0-31) U/L Alkaline Phosphatase (39-117) U/L Ammonia (13-55) umol/L Troponin I High Sens 5.3 D (<3.5-17.0) ng/L B-Natriuretic Peptide < 10 (<100) pg/mL Total Protein (6.5-8.0) g/dL Albumin (3.5-5.0) g/dL Lipase (8-78) U/L Ethyl Alcohol mg/dL Influenza Type A (PCR) (Negative) Influenza Type B (PCR) (Negative) RSV RNA Qual (PCR) (Negative) SARS-CoV-2 RNA (RT-PCR) (Negative) 01/05/24 01/05/24 01/05/24 Range/Units 07:42 07:44 08:19 WBC 12.3 H (4.8-10.8) X10*3/uL RBC 5.27 (4.20-5.50) X10*6/uL Hgb 14.9 (12.0-16.0) g/dl Hct 49.2 H (37.0-47.0) % MCV 93.4 (80.0-98.0) fL MCH 28.3 (27.0-33.0) pg MCHC 30.3 L (31.0-35.0) g/dl RDW 15.0 (11.0-16.0) % Plt Count 169 D (160-400) X10*3/uL MPV 10.1 (9.4-12.3) fL Immature Gran % (Auto) 0.5 H (0.0-0.4) % Neut % (Auto) 63.7 (45-73) % Lymph % (Auto) 25.7 (20-40) % [place] % (Auto) 8.4 (2-11) % Eos % (Auto) 1.5 (0-4) % Baso % (Auto) 0.2 (0-2) % Lymph # (Auto) 3.2 (1.2-4.9) X10*3/uL [place] # (Auto) 1.0 (0.1-1.2) X10*3/uL Eos # (Auto) 0.2 (0.0-0.4) X10*3/uL Baso # (Auto) 0.0 (0.0-0.2) X10*3/uL Abs Immat Gran (auto) 0.06 H (0.00-0.03) X10*3/uL Absolute Neuts (auto) 7.8 (2.0-8.3) x10*3/uL Absolute Nucleated RBC 0.000 (0.0-0.012) X10*3/uL Nucleated RBC % (auto) 0.0 (0.0-0.2) /100WBC Hold Purple Top SEE NOTE PT (10.9-12.4) SEC INR (0.9-1.1) VBG pH (7.32-7.43) VBG pCO2 mmHg VBG pO2 mmHg VBG HCO3 (22-26) mmol/L VBG O2 Saturation % VBG Base Excess mmol/L Sodium 140 (135-145) mmol/L Potassium 4.1 (3.3-5.1) mmol/L Chloride 91 L (96-108) mmol/L Carbon Dioxide 37 H (22-29) mmol/L Anion Gap 16 (12-20) BUN 12 (9-16) mg/dL Creatinine 0.67 (0.5-1.4) mg/dL Estim Creat Clear Calc 85.0 Estimated GFR > 60 Random Glucose 185 H (60-115) mg/dL Lactic Acid (0.5-2.0) mmol/L Calcium 9.4 (8.4-10.2) mg/dL Magnesium 2.9 H (1.6-2.6) mg/dL Total Bilirubin 0.5 (0.0-1.0) mg/dL Direct Bilirubin 0.1 (0.0-0.5) mg/dL AST 24 (5-31) U/L ALT 23 (0-31) U/L Alkaline Phosphatase 90 (39-117) U/L Ammonia 56 H (13-55) umol/L Troponin I High Sens (<3.5-17.0) ng/L B-Natriuretic Peptide (<100) pg/mL Total Protein 7.1 (6.5-8.0) g/dL Albumin 3.9 (3.5-5.0) g/dL Lipase 38 (8-78) U/L Ethyl Alcohol < 10 mg/dL Influenza Type A (PCR) NEGATIVE (Negative) Influenza Type B (PCR) NEGATIVE (Negative) RSV RNA Qual (PCR) NEGATIVE (Negative) SARS-CoV-2 RNA (RT-PCR) NEGATIVE (Negative) ABG Data Attestation ABG: I personally reviewed and interpreted this ABG as follows: Independent Interpretation I performed an independent interpretation of an: EKG and Plain X-Ray (right middle lobe ds) Interpretation: Rate: 112 Rhythm: sinus tach [place]: ;eft Normal P waves. Normal JOSH. Normal QRS complex. ST T wave : normal no ESTRADA, inverted t wave V1 qTC: 466 prior studies: no acute ischemia The study has been interpreted contemporaneously by me. . Radiology Impression Discussion of test interpretation with radiology: I have reviewed the radiologist's reading. Independent Historian Clinical information obtained from an independent historian. History obtained from or confirmed by: EMS External Record Review External record reviewed: Inpatient record and Outpatient record Critical Care Time Critical Care Time Critical Care Time: Yes Total Critical Care Time: 75 Attestation: NIPPV, IV narcan x 2, review of records, IV magnesium I attest to this time spent taking care of the patient Discharge Plan Discharge Clinical Impression: Opiate abuse, continuous COPD (chronic obstructive pulmonary disease) Qualifiers: COPD type: COPD with acute exacerbation Qualified Code(s): J44.1 - Chronic obstructive pulmonary disease with (acute) exacerbation Pneumonia Qualifiers: Pneumonia type: due to unspecified organism Laterality: right Lung location: m iddle lobe of lung Qualified Code(s): J18.9 - Pneumonia, unspecified organism Patient Disposition: Admitted As Inpatient Print Language: Vietnamese
[2024-01-05] MEDS: Naloxone HCl 0.4 MG/ML VIAL 0.2 MG IVPUSH ×2 (08:27→10:41)
--- NOTE | 2024-01-05 08:27 | PC.NURSE ---
pt remains lethargic despite being on bipap. not answering questions appropriately. narcan administered via IVP per provider order. effectiveness pending.
[2024-01-05 08:28] LABS: Influenza A PCR NEGATIVE (Negative); Influenza B PCR NEGATIVE (Negative); Resp Syncy Virus RNA Qual PCR NEGATIVE (Negative); SARS COV2 PCR INHOUSE NEGATIVE (Negative)
[2024-01-05 08:41] LABS: Ammonia 56 umol/L (13-55)
--- NOTE | 2024-01-05 08:59 | PC.NURSE ---
pt less lethargic s/p IVP narcan. pt responsive to verbal stimuli. pt seemingly agitated/uncomfortable after medication administration. pt states that she is freezing cold and her whole entire body is aching. pt fidgeting throughout. thrashing body around in bed. pt remains on bipap at this time - setting remain the same as when she as placed on bipap - 16/5 @ 35%. SPO2 97%. pt repositioned to promote patent airway. chest xray obtained. plan of care ongoing.
[2024-01-05 09:01] LABS: Alanine Aminotransferase 23 U/L (0-31); Albumin Level 3.9 g/dL (3.5-5.0); Alkaline Phosphatase 90 U/L (39-117); Aspartate Amino Transferase 24 U/L (5-31); Bilirubin Direct 0.1 mg/dL (0.0-0.5); Bilirubin Total 0.5 mg/dL (0.0-1.0); Blood Urea Nitrogen 12 mg/dL (9-16); Calcium 9.4 mg/dL (8.4-10.2); Estimated Glomerular Filt Rate > 60; Glucose Random 185 mg/dL (60-115); Lipase 38 U/L (8-78); Magnesium 2.9 mg/dL (1.6-2.6); Total Protein 7.1 g/dL (6.5-8.0)
[2024-01-05 09:01] LABS: B Type Natriuretic Peptide < 10 pg/mL (<100)
[2024-01-05 09:08] LABS: Ethanol < 10 mg/dL
[2024-01-05 09:09] LABS: Carbon Dioxide 37 mmol/L (22-29); Chloride 91 mmol/L (96-108); Potassium 4.1 mmol/L (3.3-5.1); Sodium 140 mmol/L (135-145)
--- NOTE | 2024-01-05 09:20 | PC.NURSE ---
Care of Pt assumed at 9a d/t assignment change. Pt is currently on Bipap sating at 93% Pt is restless and frequently manipulates Bipap mask despite verbal reassurance and direction. Settings are 16/5 @35%
--- NOTE | 2024-01-05 09:32 | PC.NURSE ---
RT at bedside for removal of Bipap. Pt placed on 4L O2 via Oxymask and satting consistently at 90%. RT to administer updraft treatment and assess, Dr. Momin present.
[2024-01-05 10:33] LABS: Anion Gap 16 (12-20)
[2024-01-05] MEDS: OLANZapine 10 MG VIAL 5 MG IM (10:59)
[2024-01-05] MEDS: metroNIDAZOLE/NS 500 MG/100 ML PIGGYBACK 100 MG IV (11:04)
--- NOTE | 2024-01-05 11:07 | PC.NURSE ---
RT called to niharikaal Pt d/t poor sating on O2 @4L with oxymask. Bipap re-initiated at 16/5 @ 35%. Pt becomes agitated with Bipap. Pt states she is agreeable to take something to assist with her agitation--IM Zyprexa given with Pt consent. Pt now less restless and combative.
--- NOTE | 2024-01-05 12:10 | PC.NURSE ---
Pt has been resting quietly for about an hour now. Less agitated and restless. Bipap settings remain 16/5 @ 35%
--- NOTE | 2024-01-05 12:34 | PC.NURSE ---
Addendum entered by Rhoda Smith RN 01/05/24 12:38: Correction: Pts Nieces correct name spelling is Gia. Gia is listed as Pt HCP in her contacts. Original Note: Phone call from Pts Niece Sara received. Sara reports Pt called her from her cell but was unable to understand her. Sara advised she may come visit her aunt in the ER and that she is on admitted status at this time. Sara providers her contact # [phone] and [place] [facility] [place] needs.
--- NOTE | 2024-01-05 13:09 | PC.NURSE ---
Spoke with BRIANNA Valerio in ICU for report. RN to RN report given. Teodoro given the opportunity for questions and all questions answered to satisfaction. Pt with urine to clothing and linens. Pt cleansed and linens change, 2 warm blankets given per request. Pt resting quietly as this time.
[2024-01-05] MEDS: Pantoprazole Sodium 40 MG/10 ML VIAL IVPUSH (13:59)
[2024-01-05 14:12] LABS: Phosphorus 3.1 mg/dL (2.7-4.5)
--- NOTE | 2024-01-05 15:24 | P.HPCC_ITS ---
History of Present Illness Date of Service: 01/05/24 Chief Complaint: Shortness of breaths 58-year-old lady who is very frequent Flyer to this hospital mainly due to noncompliance and drug abuse with past medical history of chronic hypoxemic respiratory failure due to COPD on 4-6 L supplemental oxygen, hypothyroidism, opiate use disorder, HCV cirrhosis, mood disorder, hypertension, gastroesophageal reflux disease, mixed hyperlipidemia presents to the hospital with shortness of breath. Shortness of breath is acute in onset exacerbated by movement, present even at rest and is not associated with fever or cough. She is drowsy and very difficult to arouse and unable to get any further history. She received a dose of Narcan which momentarily improved her mental status but turns back to be drowsy later on Review of Systems 2 Review of Systems: Unable to obtain due to poor mental status PMFSH Past Medical History Medical History Nausea and vomiting COVID Community acquired pneumonia Colon cancer screening COPD (chronic obstructive pulmonary disease) Methadone dependence Alcoholic cirrhosis Hepatitis C Pulmonary edema Polysubstance abuse Hypertension Acute and chronic respiratory failure Hypotension Respiratory failure Acute respiratory failure, unspecified whether with hypoxia or hypercapnia Hyperlipidemia Psychosis Hypoxia Acute exacerbation of chronic obstructive airways disease HTN (hypertension) Hypothyroid COPD (chronic obstructive pulmonary disease) Family History Family History Father HTN (hypertension) Mother Gastritis Ovarian cancer Arthritis Son Thyroid disease Other Hypothyroid Social History Social History Household Members: Significant Other Household Members Other:: 1 Housing: Apartment Do you presently have visiting nurse or other home services: Yes Alcohol intake: current Alcohol intake frequency: does not drink Patient Tobacco Use Status: Current someday Tobacco user Tobacco use type: Cigarette Cigarette Packs Per Day: 1 Cigarettes Per Day: 10 Years Smoked: 30 e-Cigarette/Vaping Use: Never Used Second Hand Smoke Exposure: No Substance Use Type: Heroin Advance Directives: Yes Advance Directives on File: Yes Advance Directives Date on File: 08/18/23 service: No Current occupational status: unemployed Meds Allergies Allergy/AdvReac Type Severity Reaction Status Date / Time Penicillins [PENICILLINS] Allergy Unknown RED ITCHY Verified 01/05/24 06:32 RASH SEAFOOD Allergy Unknown FEVER Uncoded 01/05/24 06:32 SWELLING Active Medications: Current Medications Albuterol/Ipratropium (Albuterol/Iprat 2.5/0.5mg 3 Ml Ampul.Neb) 3 ml INHALE Q6H [facility] Last Admin: 01/05/24 13:38 Dose: Not Given Methylprednisolone Sodium Succinate (Methylprednisolone Sod Succ 40 Mg/Ml Vial) 40 mg IVPUSH DAILY ONE Stop: 01/06/24 09:01 Pantoprazole Sodium (Pantoprazole Sodium 40 Mg/10 Ml Vial) 40 mg IVPUSH DAILY@0630 [facility] Last Admin: 01/05/24 13:59 Dose: 40 mg Home Medications ?Medication ?Instructions ?Recorded ?Confirmed ?Last Taken ?Type rosuvastatin 20 mg tablet 20 mg PO BEDTIME 03/11/20 12/25/23 12/06/23 History perphenazine 4 mg tablet 4 mg PO BEDTIME 09/24/21 12/25/23 12/06/23 History levothyroxine 200 mcg tablet 200 mcg PO DAILY@0610/01/22 12/25/23 12/06/23 History sertraline 25 mg tablet 25 mg PO DAILY@119910/01/22 12/25/23 12/06/23 History umeclidinium 62.5 mcg/actuation 1 inh inhalation DAILY 10/01/22 12/25/23 12/06/23 History blister powder for inhalation (Incruse Ellipta) ipratropium 0.5 mg-albuterol 3 mg 3 ml inhalation QID PRN wheezing 04/20/23 12/25/23 12/06/23 History (2.5 mg base)/3 mL nebulization soln sertraline 100 mg tablet 100 mg PO DAILY@1200 04/20/23 12/25/23 12/06/23 History metformin 500 mg tablet,extended 500 mg PO DAILY@1700 07/01/23 12/25/23 12/06/23 History release 24 hr furosemide 20 mg tablet 20 mg PO BID 08/16/23 12/25/23 12/06/23 History levothyroxine 25 mcg tablet 12.5 mcg PO DAILY@0600 08/16/23 12/25/23 12/06/23 History amlodipine 10 mg tablet 5 mg PO DAILY@1200 09/03/23 12/25/23 12/06/23 History albuterol sulfate 90 mcg/actuation 2 puff inhalation Q6H PRN wheezing 10/06/23 12/25/23 12/06/23 History aerosol inhaler (Ventolin HFA) fluticasone 500 mcg-salmeterol 50 1 ea inhalation BID 10/06/23 12/25/23 12/06/23 History mcg/dose blistr powdr for inhalation (Advair Diskus) lidocaine 5 % topical patch 1 patch topical DAILY PRN Pain 10/26/23 12/25/23 12/06/23 History acetaminophen 500 mg tablet 1,000 mg PO Q8H PRN moderate pain 12/08/23 12/25/23 12/06/23 History hydrocortisone 2.5 % topical cream 1 appl topical BID PRN Itching 12/08/23 12/25/23 12/06/23 History hydroxyzine pamoate 25 mg capsule 25 mg PO Q6H PRN itch 12/08/23 12/25/23 Unknown History varenicline 0.5 mg (11)-1 mg (42) 1 ea PO DIRECTED 12/08/23 12/25/23 Unknown History tablets in a dose pack Physical Exam 2 Vital Signs: Vital Signs: Last Vital Signs Temp 98.0 F 01/05/24 12:16 Pulse 96 01/05/24 15:00 Resp 18 01/05/24 15:11 BP 98/62 01/05/24 15:00 Pulse Ox 91 L 01/05/24 15:00 O2 Del Method BiPAP 01/05/24 15:00 O2 Flow Rate 2 01/05/24 12:16 FiO2 35 01/05/24 15:00 Oxygen Flow Rate 5 01/05/24 06:29 BMI result Body Mass Index 33.2 General: acute distress, ill appearing and tired appearing Nutritional Appearance: well nourished and overweight Eyes: appearance normal, both eyes and all related structures; Alignment and Position: alignment normal and position normal Neck: No lymphadenopathy, no thyromegaly Resp: bilateral air entry equal, occasional added sounds present Cardio: Regular rate, regular rhythm; Heart sounds: S1 normal heart sound present and S2 normal heart sound present GI: soft, nontender, no guarding, no hepatosplenomegaly : bladder normal to inspection, bladder normal to palpation, no renal angle tenderness Skin: no rashes or lesions noted and elasticity normal Neuro: Drowsy but arousable, no focal deficits Results Labs 01/05/24 07:42 01/05/24 08:19 Labs: Laboratory Results - last 24 hr 01/05/24 01/05/24 01/05/24 07:10 07:27 07:31 MCV MCH MCHC RDW Plt Count MPV Immature Gran % (Auto) Neut % (Auto) Lymph % (Auto) [place] % (Auto) Eos % (Auto) Baso % (Auto) Lymph # (Auto) [place] # (Auto) Eos # (Auto) Baso # (Auto) Abs Immat Gran (auto) Absolute Neuts (auto) Absolute Nucleated RBC Nucleated RBC % (auto) Hold Purple Top PT 9.8 L INR 0.8 L VBG pH 7.47 H VBG pCO2 66 VBG pO2 55 VBG HCO3 49 H VBG O2 Saturation 90.0 VBG Base Excess 20.6 Anion Gap Estim Creat Clear Calc Estimated GFR Random Glucose Lactic Acid 1.5 Calcium Phosphorus Magnesium Total Bilirubin Direct Bilirubin AST ALT Alkaline Phosphatase Ammonia Troponin I High Sens 5.3 D B-Natriuretic Peptide < 10 Total Protein Albumin Lipase Ethyl Alcohol Influenza Type A (PCR) Influenza Type B (PCR) RSV RNA Qual (PCR) SARS-CoV-2 RNA (RT-PCR) 01/05/24 01/05/24 01/05/24 07:42 07:44 08:19 MCV 93.4 MCH 28.3 MCHC 30.3 L RDW 15.0 Plt Count 169 D MPV 10.1 Immature Gran % (Auto) 0.5 H Neut % (Auto) 63.7 Lymph % (Auto) 25.7 [place] % (Auto) 8.4 Eos % (Auto) 1.5 Baso % (Auto) 0.2 Lymph # (Auto) 3.2 [place] # (Auto) 1.0 Eos # (Auto) 0.2 Baso # (Auto) 0.0 Abs Immat Gran (auto) 0.06 H Absolute Neuts (auto) 7.8 Absolute Nucleated RBC 0.000 Nucleated RBC % (auto) 0.0 Hold Purple Top SEE NOTE PT INR VBG pH VBG pCO2 VBG pO2 VBG HCO3 VBG O2 Saturation VBG Base Excess Anion Gap 16 Estim Creat Clear Calc 85.0 Estimated GFR > 60 Random Glucose 185 H Lactic Acid Calcium 9.4 Phosphorus 3.1 Magnesium 2.9 H Total Bilirubin 0.5 Direct Bilirubin 0.1 AST 24 ALT 23 Alkaline Phosphatase 90 Ammonia 56 H Troponin I High Sens B-Natriuretic Peptide Total Protein 7.1 Albumin 3.9 Lipase 38 Ethyl Alcohol < 10 Influenza Type A (PCR) NEGATIVE Influenza Type B (PCR) NEGATIVE RSV RNA Qual (PCR) NEGATIVE SARS-CoV-2 RNA (RT-PCR) NEGATIVE Imaging Radiologist's Impressions: Impressions Chest X-Ray 01/05/24 07:01 IMPRESSION: Findings suspicious for infiltrate or atelectasis in the medial right base. Possible atelectatic change in the peripheral left base. Electronically signed by: Freddie Rosado MD 01/05/2024 10:41 AM EDT RP Assessment and Plan (1) Pneumonia: Qualifiers: Laterality: right Lung location: middle lobe of lung Pneumonia type: d ue to unspecified organism Qualified Code(s): J18.9 - Pneumonia, unspecified organism Status: Acute (2) Opiate abuse, continuous: Status: Acute (3) Diabetes: Status: Acute (4) Acute exacerbation of chronic obstructive pulmonary disease: Status: Acute (5) Opioid use disorder, moderate, in sustained remission: Status: Acute (6) COPD (chronic obstructive pulmonary disease): Qualifiers: COPD type: COPD with acute exacerbation Qualified Code(s): J44.1 - Chronic obstructive pulmonary disease with (acute) exacerbation Status: Acute (7) Methadone dependence: Status: Acute (8) Hepatitis C: Status: Acute Plan Neuro: Acute encephalopathy possibly due to drug overdose as she has history of drug overdose and somewhat responded to Narcan. Her UDS is still pending Close neurological status monitoring in the ICU every hour Respiratory: Acute on chronic hypoxemic respiratory failure due to COPD exacerbation Currently on BiPAP support We will do Duo nebs around the clock, Solu-Medrol 40 mg daily Received ceftriaxone erythromycin in the ED, we will continue with that Heme: Chronic anemia, closely monitor H&H, transfuse for hemoglobin less than 7 grams/deciliter Endocrine: Blood sugars under control Sliding scale insulin as needed Infectious disease: We will send pancultures We will start the patient on empiric ceftriaxone and azithromycin Lactate normal Prophylaxis: Lovenox, pantoprazole Patient's acute respiratory decompensation needing BiPAP support is due to poor mental status from drug overdose and less likely from sepsis. Her lactate is normal, blood cultures are sent, received empiric antibiotics in the ED.
--- NOTE | 2024-01-05 15:53 | PHA.MEDREC ---
Addendum entered by Narciso Mcclendon 01/05/24 16:11: Reviewed Original Note: Pharmacy Consult ? Medication Reconciliation Pharmacy has completed the medication reconciliation. I attempted to call [id number] to confirm med list and [facility] phone was shut off. I utilized discharge packet from 12/27/23 to confirm med rec. Patient got an Azithromycin for 3 days and Prednisone taper regimen on 12/26 for 8 days, I called [facility] and they confirmed she got those 12/27. I took them both off the med rec since patient would be with with the Azithromycin 12/29 and the Prednisone would of been done today 01/04.
[2024-01-05 16:47] LABS: Lactic Acid 1.6 mmol/L (0.5-2.0)
[2024-01-05] MEDS: Albuterol/Iprat 2.5/0.5MG 3 ML AMPUL.NEB INHALE (19:14)
[2024-01-05 21:48] LABS: VBG Base Excess 21.4 mmol/L; VBG HCO3 48 mmol/L (22-26); VBG pCO2 62 mmHg; VBG pO2 60 mmHg
[2024-01-05 21:48] LABS: Amphetamine Screen Urine Not Detected (Not Detect); Barbiturates, Urine Not Detected (Not Detect); Benzodiazepines Screen Urine Not Detected (Not Detect); Buprenorphine Scr Not Detected (Not Detect); Cannabinoid Screen Urine Not Detected (Not Detect); Cocaine Screen Urine Not Detected (Not Detect); Fentanyl, urine Not Detected (Not Detect); Methadone Screen, Urine Positive (Not Detect); Opiate Screen Urine Not Detected (Not Detect); Oxycodone Screen Urine Not Detected (Not Detect); Phencyclidine Screen Urine Not Detected (Not Detect)
[2024-01-05 21:51] LABS: Venous Blood Gas Refer to POC result
[2024-01-05] MEDS: Lidocaine 4 % Patch ADH..PATCH 1 PATCH TRANSDERMA (21:52)
[2024-01-05] MEDS: Acetaminophen 325 MG TABLET 650 MG PO (21:52)
[2024-01-06] VITALS (21 sets, daily range): BP systolic 115–140; BP diastolic 69–91; PULSE 79–105; RESP 13–23; TEMP 35.7–36.6; O2SAT 90–100; BMI 33.6
[2024-01-06] MEDS: Albuterol/Iprat 2.5/0.5MG 3 ML AMPUL.NEB INHALE ×3 (00:41→11:59)
[2024-01-06 05:42] LABS: MANUAL DIFF FLAG NO
[2024-01-06 05:48] LABS: Basophils Percent Auto 0.2 % (0-2); Eosinophils Percent Auto 0.3 % (0-4); Hematocrit 45.5 % (37.0-47.0); Hemoglobin 14.1 g/dl (12.0-16.0); Imm Gran Abs Auto 0.05 X10*3/uL (0.00-0.03); Imm Gran Pct Auto 0.5 % (0.0-0.4); Lymphocytes Absolute Auto 2.1 X10*3/uL (1.2-4.9); Lymphocytes Percent Auto 19.2 % (20-40); Mean Corpuscular Hemoglobin 28.1 pg (27.0-33.0); Mean Corpuscular Volume 90.6 fL (80.0-98.0); Mean Platelet Volume 10.6 fL (9.4-12.3); Monocytes Absolute Auto 0.7 X10*3/uL (0.1-1.2); Neutrophils Absolute Auto 8.1 x10*3/uL (2.0-8.3); Neutrophils Percent Auto 73.8 % (45-73); Platelet Count 163 X10*3/uL (160-400); Red Blood Count 5.02 X10*6/uL (4.20-5.50); Red Cell Distribution Width 14.6 % (11.0-16.0); White Blood Count 10.9 X10*3/uL (4.8-10.8)
[2024-01-06 05:49] LABS: VBG Base Excess 14.6 mmol/L; VBG HCO3 43 mmol/L (22-26); VBG pCO2 66 mmHg; VBG pH 7.41 (7.32-7.43); VBG pO2 47 mmHg
[2024-01-06 05:52] LABS: Venous Blood Gas Refer to POC result
[2024-01-06 06:00] LABS: Alanine Aminotransferase 20 U/L (0-31); Albumin Level 3.7 g/dL (3.5-5.0); Alkaline Phosphatase 81 U/L (39-117); Anion Gap 12 (12-20); Aspartate Amino Transferase 22 U/L (5-31); Bilirubin Total 0.7 mg/dL (0.0-1.0); Blood Urea Nitrogen 12 mg/dL (9-16); Calcium 9.1 mg/dL (8.4-10.2); Carbon Dioxide 37 mmol/L (22-29); Chloride 97 mmol/L (96-108); Creatinine Clr Calc Pharmacy 83.7; Estimated Glomerular Filt Rate > 60; Glucose Random 221 mg/dL (60-115); Magnesium 2.5 mg/dL (1.6-2.6); Potassium 4.3 mmol/L (3.3-5.1); Sodium 142 mmol/L (135-145); Total Protein 6.6 g/dL (6.5-8.0)
[2024-01-06 06:06] LABS: Alanine Aminotransferase 20 U/L (0-31); Albumin Level 3.6 g/dL (3.5-5.0); Alkaline Phosphatase 80 U/L (39-117); Anion Gap 8 (12-20); Aspartate Amino Transferase 22 U/L (5-31); Bilirubin Total 0.7 mg/dL (0.0-1.0); Blood Urea Nitrogen 11 mg/dL (9-16); Carbon Dioxide 40 mmol/L (22-29); Chloride 97 mmol/L (96-108); Creatinine Clr Calc Pharmacy 82.5; Estimated Glomerular Filt Rate > 60; Glucose Random 219 mg/dL (60-115); Magnesium 2.5 mg/dL (1.6-2.6); Phosphorus 2.6 mg/dL (2.7-4.5); Potassium 4.2 mmol/L (3.3-5.1); Sodium 141 mmol/L (135-145); Total Protein 6.5 g/dL (6.5-8.0)
[2024-01-06] MEDS: Acetaminophen 325 MG TABLET 650 MG PO ×2 (06:31→20:10)
[2024-01-06] MEDS: Pantoprazole Sodium 40 MG/10 ML VIAL IVPUSH (06:31)
[2024-01-06] MEDS: cefTRIAXone sodium 2 GM in 0.9 % Sodium Chloride 50 ML IV (06:31)
[2024-01-06] MEDS: Azithromycin 500 MG in 0.9 % Sodium Chloride 250 ML 125 MG IV (07:56)
[2024-01-06] MEDS: Sodium,Potassium Phosphates POWD.PACK 2 PACKET PO (08:02)
[2024-01-06] MEDS: Lactulose 20 GM/30 ML SOLUTION 30 GM PO (08:07)
[2024-01-06] MEDS: methylPREDNISolone Sod Succ 40 MG/ML VIAL IVPUSH (08:07)
--- NOTE | 2024-01-06 08:58 | P.PNCC_ITS ---
Subjective Subjective Date of Service: 01/06/24 Critical Care Time (minutes): 35 Comment: Feels better, off BiPAP support this morning Air entry better, mentation has improved Saturation stable on nasal cannula oxygen Physical Exam 2 Vital Signs: Vital Signs: Last Vital Signs Temp 97.9 F 01/06/24 08:00 Pulse 79 01/06/24 08:00 Resp 16 01/06/24 08:00 BP 124/79 01/06/24 08:00 Pulse Ox 94 01/06/24 08:00 O2 Del Method Nasal Cannula 01/06/24 08:00 O2 Flow Rate 4 01/06/24 08:00 FiO2 35 01/05/24 21:00 Oxygen Flow Rate 5 01/05/24 06:29 BMI result Body Mass Index 33.6 General: Not in acute distress, comfortable and speaking on the phone Nutritional Appearance: well nourished and overweight Eyes: appearance normal, both eyes and all related structures; Alignment and Position: alignment normal and position normal Neck: No lymphadenopathy, no thyromegaly Resp: bilateral air entry equal, bilateral significant wheeze heard Cardio: Regular rate, regular rhythm; Heart sounds: S1 normal heart sound present and S2 normal heart sound present GI: soft, nontender, no guarding, no hepatosplenomegaly : bladder normal to inspection, bladder normal to palpation, no renal angle tenderness Skin: no rashes or lesions noted and elasticity normal Neuro: oriented to person, oriented to place, oriented to time and moves all extremities Objective Data Labs 01/06/24 05:17 01/06/24 05:37 Labs: Laboratory Results - last 24 hr 01/05/24 01/05/24 01/05/24 07:31 08:19 16:17 WBC RBC Hgb Hct MCV MCH MCHC RDW Plt Count MPV Immature Gran % (Auto) Neut % (Auto) Lymph % (Auto) [place] % (Auto) Eos % (Auto) Baso % (Auto) Lymph # (Auto) [place] # (Auto) Eos # (Auto) Baso # (Auto) Abs Immat Gran (auto) Absolute Neuts (auto) Absolute Nucleated RBC Nucleated RBC % (auto) VBG pH VBG pCO2 VBG pO2 VBG HCO3 VBG O2 Saturation VBG Base Excess Sodium 140 Potassium 4.1 Chloride 91 L Carbon Dioxide 37 H Anion Gap 16 BUN 12 Creatinine 0.67 Estim Creat Clear Calc 85.0 Estimated GFR > 60 Random Glucose 185 H Lactic Acid 1.6 Calcium 9.4 Phosphorus 3.1 Magnesium 2.9 H Total Bilirubin 0.5 Direct Bilirubin 0.1 AST 24 ALT 23 Alkaline Phosphatase 90 B-Natriuretic Peptide < 10 Total Protein 7.1 Albumin 3.9 Lipase 38 Urine Opiates Screen Ur Buprenorphine Scrn Ur Oxycodone Screen Urine Methadone Screen Urine Fentanyl Screen Ur Barbiturates Screen Ur Phencyclidine Scrn Ur Amphetamines Screen U Benzodiazepines Scrn Urine Cocaine Screen U Marijuana (THC) Screen Ethyl Alcohol < 10 01/05/24 01/05/24 01/06/24 21:29 21:43 05:17 WBC 10.9 H RBC 5.02 Hgb 14.1 Hct 45.5 MCV 90.6 MCH 28.1 MCHC 31.0 RDW 14.6 Plt Count 163 MPV 10.6 Immature Gran % (Auto) 0.5 H Neut % (Auto) 73.8 H Lymph % (Auto) 19.2 L [place] % (Auto) 6.0 Eos % (Auto) 0.3 Baso % (Auto) 0.2 Lymph # (Auto) 2.1 [place] # (Auto) 0.7 Eos # (Auto) 0.0 Baso # (Auto) 0.0 Abs Immat Gran (auto) 0.05 H Absolute Neuts (auto) 8.1 Absolute Nucleated RBC 0.000 Nucleated RBC % (auto) 0.0 VBG pH 7.50 H VBG pCO2 62 VBG pO2 60 VBG HCO3 48 H VBG O2 Saturation 96.0 VBG Base Excess 21.4 Sodium 141 Potassium 4.2 Chloride 97 Carbon Dioxide 40 H* Anion Gap 8 L BUN 11 Creatinine 0.69 Estim Creat Clear Calc 82.5 Estimated GFR > 60 Random Glucose 219 H Lactic Acid Calcium 9.0 Phosphorus 2.6 L Magnesium 2.5 Total Bilirubin 0.7 Direct Bilirubin AST 22 ALT 20 Alkaline Phosphatase 80 B-Natriuretic Peptide Total Protein 6.5 Albumin 3.6 Lipase Urine Opiates Screen Not Detected Ur Buprenorphine Scrn Not Detected Ur Oxycodone Screen Not Detected Urine Methadone Screen Positive H Urine Fentanyl Screen Not Detected Ur Barbiturates Screen Not Detected Ur Phencyclidine Scrn Not Detected Ur Amphetamines Screen Not Detected U Benzodiazepines Scrn Not Detected Urine Cocaine Screen Not Detected U Marijuana (THC) Screen Not Detected Ethyl Alcohol 01/06/24 01/06/24 05:37 05:43 WBC RBC Hgb Hct MCV MCH MCHC RDW Plt Count MPV Immature Gran % (Auto) Neut % (Auto) Lymph % (Auto) [place] % (Auto) Eos % (Auto) Baso % (Auto) Lymph # (Auto) [place] # (Auto) Eos # (Auto) Baso # (Auto) Abs Immat Gran (auto) Absolute Neuts (auto) Absolute Nucleated RBC Nucleated RBC % (auto) VBG pH 7.41 VBG pCO2 66 VBG pO2 47 VBG HCO3 43 H VBG O2 Saturation 77.0 VBG Base Excess 14.6 Sodium 142 Potassium 4.3 Chloride 97 Carbon Dioxide 37 H Anion Gap 12 BUN 12 Creatinine 0.68 Estim Creat Clear Calc 83.7 Estimated GFR > 60 Random Glucose 221 H Lactic Acid Calcium 9.1 Phosphorus Magnesium 2.5 Total Bilirubin 0.7 Direct Bilirubin AST 22 ALT 20 Alkaline Phosphatase 81 B-Natriuretic Peptide Total Protein 6.6 Albumin 3.7 Lipase Urine Opiates Screen Ur Buprenorphine Scrn Ur Oxycodone Screen Urine Methadone Screen Urine Fentanyl Screen Ur Barbiturates Screen Ur Phencyclidine Scrn Ur Amphetamines Screen U Benzodiazepines Scrn Urine Cocaine Screen U Marijuana (THC) Screen Ethyl Alcohol Progress Note: A&P Assessment and plan (1) Pneumonia: Status: Acute (2) Opiate abuse, continuous: Status: Acute (3) Acute exacerbation of chronic obstructive pulmonary disease: Status: Acute (4) Opioid use disorder, moderate, in sustained remission: Status: Acute (5) COPD (chronic obstructive pulmonary disease): Status: Acute (6) Alcoholic cirrhosis: Status: Acute Plan Neuro: Acute encephalopathy possibly due to drug overdose as she has history of drug overdose and somewhat responded to Narcan. Her UDS is still pending Close neurological status monitoring in the ICU every hour Respiratory: Acute on chronic hypoxemic respiratory failure due to COPD exacerbation Off BiPAP support this morning, saturation stable on nasal cannula oxygen We will do Duo nebs around the clock, We will change Solu-Medrol 40 mg daily to p.o. prednisone 40 mg daily Continue ceftriaxone and azithromycin Heme: Chronic anemia, closely monitor H&H, transfuse for hemoglobin less than 7 grams/deciliter Endocrine: Blood sugars under control Sliding scale insulin as needed Infectious disease: Pending pancultures Continue empiric ceftriaxone and azithromycin Lactate normal Prophylaxis: Lovenox, pantoprazole Quality Stroke Does the patient have a stroke diagnosis?: No VTE Prior VTE?: No VTE Risk Level:: Medical - moderate - high VTE Device Contraindication: N/A - Device Ordered VTE Drug Contraindication: N/A - Med Ordered
--- NOTE | 2024-01-06 12:26 | P.CDIM_ITS ---
PROVIDER RESPONSE TEXT: To clarify, the appropriate diagnosis supported by the clinical indicators: Metabolic QUERY TEXT: PHYSICIAN'S DOCUMENTATION REQUEST Date of Query: 01/06/2024 12:09 PM EDT Patient Name: Sandra Rose Admit Date: 01/05/2024 Dear Kei Knott MD, A review of the medical record indicates additional documentation may be needed. Please review below and update the documentation accordingly. Clinical Indicators: ICU progress notes: Acute encephalopathy possibly due to drug overdose as she has a history of drug o verdose and somewhat responded to Narcan. Monitoring in the ICU. Altered mental status, decreased responsiveness. Based on the above, please further specify, in the Progress Notes, the known or suspected type of the documented encephalopathy: Metabolic Toxic Toxic metabolic Other (explain) Clinically unable to determine (explain) Thank you, Naomi Alcala, CCS, CDIS Use of terms such as suspected, likely, concern for, or probable (associated with a specific diagnosi s that is being evaluated, monitored, or treated as if it exists) are acceptable and can be coded in the inpatient se tting, when documented at the time of discharge. Please use your independent medical judgment in providing your response. THIS QUERY IS PART OF THE PERMANENT MEDICAL RECORD
--- NOTE | 2024-01-06 12:29 | MHC.CM.PN ---
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 She has [employer] for home O2 and Cpap and [facility] [place] [facility] for home methadone delivery. Pt states she will return to home w/existing services. She has a working cell and will call family for transportation.
--- NOTE | 2024-01-06 13:15 | HE.PHANOTE ---
RE: methadone Last dose [facility] 01/04/24 for 50mg
[2024-01-06] MEDS: Enoxaparin Sodium 40 MG/0.4 ML SYRINGE SUBCUT (14:25)
[2024-01-06 14:33] LABS: Glucose, Whole Blood 278 mg/dL (60-115)
--- NOTE | 2024-01-06 15:52 | PM.EVENT ---
Event Note Date of Service: 01/06/24 Event Note: This is a 58-year-old female admitted to the ICU secondary to acute encephalopathy and COPD exacerbation requiring BiPAP support. Downgraded from the ICU 01/05 Acute metabolic encephalopathy possibly due to drug overdose as she has history of drug overdose and somewhat responded to Narcan. Her UDS + for methadone Acute on chronic hypoxemic respiratory failure due to COPD exacerbation Off BiPAP support this morning, saturation stable on nasal cannula oxygen duenebs on baseline o2 We will change Solu-Medrol 40 mg daily to p.o. prednisone 40 mg daily Continue ceftriaxone and azithromycin Resume baseline inhalers Chronic anemia, closely monitor H&H, transfuse for hemoglobin less than 7 grams/deciliter diabetes: Blood sugars under control Sliding scale insulin as needed Hold metformin possible pneumonia Continue empiric ceftriaxone and azithromycin Lactate normal, no sepsis Hypothyroidism Resume Synthroid Mood Resume home medications HLD Resume statin Hypertension Blood pressure stable If trends up can resume Norvasc Opiate use disorder On methadone DVT prophylaxis-Lovenox Time Spent With Patient Time: Total time managing care of this patient today ____ minutes.
[2024-01-06] MEDS: methADONE HCl 20 MG/2 ML ORAL.CONC 60 MG PO (17:35)
[2024-01-06 18:38] LABS: Glucose, Whole Blood 173 mg/dL (60-115)
[2024-01-06] MEDS: Insulin Lispro 100 UNIT/ML 3 ML VIAL SUBCUT (18:52)
[2024-01-06] MEDS: 0.9 % Sodium Chloride Flush 3 ML SYRINGE IVFLUSH (18:53)
[2024-01-06 21:05] LABS: Glucose, Whole Blood 149 mg/dL (60-115)
[2024-01-06] MEDS: Atorvastatin Calcium 80 MG TABLET PO (21:06)
[2024-01-06] MEDS: Famotidine 20 MG TABLET 40 MG PO (21:06)
[2024-01-06] MEDS: Furosemide 20 MG TABLET PO (21:06)
[2024-01-06] MEDS: Perphenazine 4 MG TABLET PO (21:06)
[2024-01-06] MEDS: guaiFEN/Codeine SF 200/20/10ML 10 ML LIQUID 5 ML PO (23:59)
[2024-01-07] VITALS (7 sets, daily range): BP systolic 138–165; BP diastolic 69–101; PULSE 84–103; RESP 18–22; TEMP 36.1–36.7; O2SAT 91–97; BMI 34.5; BMI 34.0
[2024-01-07] MEDS: Levothyroxine Sodium 25 MCG TABLET 12.5 MCG PO (07:15)
[2024-01-07] MEDS: cefTRIAXone sodium 2 GM VIAL IV (07:15)
[2024-01-07] MEDS: Levothyroxine Sodium 200 MCG TABLET PO (07:15)
[2024-01-07 07:42] LABS: Glucose, Whole Blood 130 mg/dL (60-115)
[2024-01-07] MEDS: Fluticasone/Vilanterol 200/25 BLST.W.DEV 1 PUFF INHALE (07:52)
[2024-01-07] MEDS: Simethicone 80 MG TAB.CHEW 160 MG PO ×2 (09:09→16:50)
[2024-01-07] MEDS: Azithromycin 500 MG TABLET PO (09:10)
[2024-01-07] MEDS: methADONE HCl 20 MG/2 ML ORAL.CONC 60 MG PO (09:10)
[2024-01-07] MEDS: predniSONE 20 MG TABLET 40 MG PO (09:10)
[2024-01-07] MEDS: 0.9 % Sodium Chloride Flush 3 ML SYRINGE IVFLUSH ×2 (09:19→09:23)
--- NOTE | 2024-01-07 11:14 | HO.PM.IMPN ---
Subjective Subjective Date of Service: 01/07/24 Review of Systems Follow up COPD exacerbation feeling better but still with some SOB Physical Exam Vital Signs: Vital Signs: Last Vital Signs Temp 97.0 F 01/07/24 08:00 Pulse 94 01/07/24 08:00 Resp 22 H 01/07/24 08:00 BP 138/79 01/07/24 08:00 Pulse Ox 93 01/07/24 08:00 O2 Del Method Nasal Cannula 01/07/24 08:00 O2 Flow Rate 4 01/07/24 08:00 FiO2 35 01/05/24 21:00 Oxygen Flow Rate 5 01/05/24 06:29 BMI result Body Mass Index 34.0 Appearing in no acute distress lung sounds dim heart regular rate rhythm, clear S1, S2 positive bowel sounds, abdomen is soft, nontender neuro patient is alert x3, no focal deficits Objective Data Active Medications Acetaminophen (Acetaminophen 325 Mg Tablet) 650 mg PO Q6H PRN PRN Reason: Pain, Mild (Pain Scale 1-3) Last Admin: 01/06/24 20:10 Dose: 650 mg Documented By: JAYCEE Albuterol/Ipratropium (Albuterol/Iprat 2.5/0.5mg 3 Ml Ampul.Neb) 3 ml INHALE Q6H [facility] Last Admin: 01/07/24 07:52 Dose: Not Given Documented By: CARLOS Non-Admin Reason: Pt eating and refused Atorvastatin Calcium (Atorvastatin Calcium 80 Mg Tablet) 80 mg PO BEDTIME [facility] Last Admin: 01/06/24 21:06 Dose: 80 mg Documented By: JAYCEE Azithromycin (Azithromycin 500 Mg Tablet) 500 mg PO Q24H [facility] Last Admin: 01/07/24 09:10 Dose: 500 mg Documented By: [place] Ceftriaxone Sodium (Ceftriaxone Sodium 2 Gm Vial) 2 gm IV Q24H [facility] Enoxaparin Sodium (Enoxaparin Sodium 40 Mg/0.4 Ml Syringe) 40 mg SUBCUT Q24H [facility] Last Admin: 01/06/24 14:25 Dose: 40 mg Documented By: FLEX Famotidine (Famotidine 20 Mg Tablet) 40 mg PO BEDTIME [facility] Last Admin: 01/06/24 21:06 Dose: 40 mg Documented By: JAYCEE Fluticasone/Vilanterol (Fluticasone/Vilanterol 200/25 Blst.W.Dev) 1 puff INHALE DAILY [facility] Last Admin: 01/07/24 07:52 Dose: 1 puff Documented By: CARLOS Furosemide (Furosemide 20 Mg Tablet) 20 mg PO BID [facility]; Protocol Last Admin: 01/06/24 21:06 Dose: 20 mg Documented By: JAYCEE Glucose (Glucose Gel 15 Gm Gel..Gram.) 15 gm PO Q15M PRN; Protocol PRN Reason: per Hypoglycemia Standing Ord. Guaifenesin/Codeine Phosphate (Guaifen/Codeine Sf 200/20/10ml 10 Ml Liquid) 5 ml PO Q6H PRN PRN Reason: Cough Last Admin: 01/06/24 23:59 Dose: 5 ml Documented By: JAYCEE Dextrose (D10) 250 mls @ 750 mls/hr IV Q15M PRN; Protocol PRN Reason: per Hypoglycemia Standing Ord. Insulin Human Lispro (Insulin Lispro 100 Unit/Ml 3 Ml Vial) 0 unit SUBCUT QIDACHS [facility]; Protocol Stop: 01/07/24 15:17 Last Admin: 01/07/24 09:36 Dose: Not Given Documented By: ALB[place] Non-Admin Reason: No Insulin Coverage Lactulose (Lactulose 20 Gm/30 Ml Solution) 30 gm PO BID [facility] Last Admin: 01/06/24 21:05 Dose: Not Given Documented By: JAYCEE Non-Admin Reason: Patient Refused Levothyroxine Sodium (Levothyroxine Sodium 25 Mcg Tablet) 12.5 mcg PO DAILY@0600 [facility] Levothyroxine Sodium (Levothyroxine Sodium 200 Mcg Tablet) 200 mcg PO DAILY@0600 [facility] Lidocaine (Lidocaine 4 % Patch Adh..Patch) 1 patch TRANSDERMA DAILY PRN PRN Reason: Pain, Mild (Pain Scale 1-3) Methadone HCl (Methadone Hcl 20 Mg/2 Ml Oral.Conc) 60 mg PO DAILY@0800 [facility] Last Admin: 01/07/24 09:10 Dose: 60 mg Documented By: ALB[place]IA Co-signed By: BRI Perphenazine (Perphenazine 4 Mg Tablet) 4 mg PO BEDTIME [facility] Last Admin: 01/06/24 21:06 Dose: 4 mg Documented By: JAYCEE Prednisone (Prednisone 20 Mg Tablet) 40 mg PO DAILY [facility] Last Admin: 01/07/24 09:10 Dose: 40 mg Documented By: [place] Sertraline HCl (Sertraline Hcl 100 Mg Tablet) 100 mg PO DAILY@1200 [facility] Sertraline HCl (Sertraline Hcl 25 Mg Tablet) 25 mg PO DAILY@1200 [facility] Simethicone (Simethicone 80 Mg Tab.Chew) 160 mg PO BIDAC [facility] Last Admin: 01/07/24 09:09 Dose: 160 mg Documented By: ALB[place] Sodium Chloride (0.9 % Sodium Chloride Flush 3 Ml Syringe) 3 ml IVFLUSH QSHIFT [facility] Last Admin: 01/07/24 09:23 Dose: 3 ml Documented By: ALB[place]IA Tiotropium [place] (Tiotropium [place] 2.5 Mcg 1 Puff/2.5 Mcg Mist.Inhal) 2 puff INHALE DAILY [facility] Last Admin: 01/07/24 07:53 Dose: Not Given Documented By: CARLOS Non-Admin Reason: Med Not Available Labs 01/06/24 05:17 01/06/24 05:37 Labs: Laboratory Results - last 24 hr 01/06/24 01/06/24 01/06/24 14:28 18:34 20:58 POC Glucose 278 H 173 H 149 H 01/07/24 07:23 POC Glucose 130 H Microbiology Microbiology Results: Microbiology 01/05/24 07:42 Blood Culture - Preliminary Blood - Venous No growth after 48 hours. 01/05/24 07:30 Blood Culture - Preliminary Blood - Venous No growth after 48 hours. Assessment and Plan (1) Pneumonia: Status: Acute (2) Acute exacerbation of chronic obstructive pulmonary disease: Status: Acute Plan This is a 58-year-old female admitted to the ICU secondary to acute encephalopathy and COPD exacerbation requiring BiPAP support. Downgraded from the ICU 01/05 Acute metabolic encephalopathy possibly due to drug overdose as she has history of drug overdose and somewhat responded to Narcan. Her UDS + for methadone Acute on chronic hypoxemic respiratory failure due to COPD exacerbation Off BiPAP saturation stable on nasal cannula oxygen duonebs on baseline o2 prednisone 40 mg daily Continue ceftriaxone and azithromycin Resume baseline inhalers Chronic anemia closely monitor H&H transfuse for hemoglobin less than 7 grams/deciliter diabetes 2 Blood sugars under control Sliding scale insulin as needed Hold metformin possible pneumonia Continue empiric ceftriaxone and azithromycin Lactate normal, no sepsis Hypothyroidism Resume Synthroid Mood Resume home medications HLD Resume statin Hypertension Blood pressure stable If trends up can resume Norvasc Opiate use disorder On methadone DVT prophylaxis with Full code lovenox Attending Dr. Whitley Quality Stroke Does the patient have a stroke diagnosis?: No VTE Prior VTE?: No VTE Risk Level:: Medical - moderate - high VTE Device Contraindication: N/A - Device Ordered VTE Drug Contraindication: N/A - Med Ordered
[2024-01-07] MEDS: Furosemide 20 MG TABLET PO (11:16)
[2024-01-07 12:01] LABS: Glucose, Whole Blood 248 mg/dL (60-115)
[2024-01-07] MEDS: Sertraline HCL 25 MG TABLET PO (13:00)
[2024-01-07] MEDS: Sertraline HCL 100 MG TABLET PO (13:00)
[2024-01-07] MEDS: Insulin Lispro 100 UNIT/ML 3 ML VIAL SUBCUT ×3 (13:00→21:34)
[2024-01-07] MEDS: Enoxaparin Sodium 40 MG/0.4 ML SYRINGE SUBCUT (14:41)
[2024-01-07] MEDS: Albuterol/Iprat 2.5/0.5MG 3 ML AMPUL.NEB INHALE ×2 (14:44→21:30)
[2024-01-07 16:34] LABS: Glucose, Whole Blood 284 mg/dL (60-115)
[2024-01-07] MEDS: Acetaminophen 325 MG TABLET 650 MG PO (21:25)
[2024-01-07] MEDS: Famotidine 20 MG TABLET 40 MG PO (21:26)
[2024-01-07] MEDS: Atorvastatin Calcium 80 MG TABLET PO (21:26)
[2024-01-07] MEDS: Perphenazine 4 MG TABLET PO (21:26)
[2024-01-07 21:33] LABS: Glucose, Whole Blood 224 mg/dL (60-115)
[2024-01-08] VITALS (10 sets, daily range): BP systolic 134–155; BP diastolic 80–100; PULSE 77–96; RESP 17–22; TEMP 36–36.9; O2SAT 90–97; BMI 35.0
[2024-01-08] MEDS: Levothyroxine Sodium 200 MCG TABLET PO (07:32)
[2024-01-08] MEDS: Levothyroxine Sodium 25 MCG TABLET 12.5 MCG PO (07:33)
[2024-01-08] MEDS: cefTRIAXone sodium 2 GM VIAL IV (07:34)
[2024-01-08 07:46] LABS: Glucose, Whole Blood 113 mg/dL (60-115)
[2024-01-08] MEDS: Albuterol/Iprat 2.5/0.5MG 3 ML AMPUL.NEB INHALE ×3 (08:01→14:50)
[2024-01-08] MEDS: Fluticasone/Vilanterol 200/25 BLST.W.DEV 1 PUFF INHALE (08:01)
[2024-01-08] MEDS: Acetaminophen 325 MG TABLET 650 MG PO ×2 (08:36→17:19)
[2024-01-08] MEDS: 0.9 % Sodium Chloride Flush 3 ML SYRINGE IVFLUSH ×4 (08:37→21:19)
[2024-01-08] MEDS: Azithromycin 500 MG TABLET PO (08:37)
[2024-01-08] MEDS: predniSONE 20 MG TABLET 40 MG PO (08:37)
[2024-01-08] MEDS: methADONE HCl 20 MG/2 ML ORAL.CONC 60 MG PO (08:37)
--- NOTE | 2024-01-08 08:46 | HO.PM.IMPN ---
Subjective Subjective Date of Service: 01/08/24 Review of Systems Follow up COPD exacerbation feeling better but still with some mild SOB Physical Exam Vital Signs: Vital Signs: Last Vital Signs Temp 98.1 F 01/08/24 07:56 Pulse 78 01/08/24 08:02 Resp 18 01/08/24 08:02 BP 149/99 H 01/08/24 07:56 Pulse Ox 92 01/08/24 07:56 O2 Del Method Nasal Cannula 01/08/24 07:56 O2 Flow Rate 4 01/08/24 07:56 FiO2 35 01/05/24 21:00 Oxygen Flow Rate 5 01/05/24 06:29 BMI result Body Mass Index 35.0 Appearing in no acute distress lung sounds diminshed heart regular rate rhythm, clear S1, S2 positive bowel sounds, abdomen is soft, nontender neuro patient is alert x3, no focal deficits Objective Data Active Medications Acetaminophen (Acetaminophen 325 Mg Tablet) 650 mg PO Q6H PRN PRN Reason: Pain, Mild (Pain Scale 1-3) Last Admin: 01/07/24 21:25 Dose: 650 mg Documented By: JAYCEE Albuterol/Ipratropium (Albuterol/Iprat 2.5/0.5mg 3 Ml Ampul.Neb) 3 ml INHALE Q6H [facility] Last Admin: 01/08/24 08:01 Dose: 3 ml Documented By: CARLOS Atorvastatin Calcium (Atorvastatin Calcium 80 Mg Tablet) 80 mg PO BEDTIME [facility] Last Admin: 01/07/24 21:26 Dose: 80 mg Documented By: JAYCEE Azithromycin (Azithromycin 500 Mg Tablet) 500 mg PO Q24H [facility] Last Admin: 01/07/24 09:10 Dose: 500 mg Documented By: ALBANIA Ceftriaxone Sodium (Ceftriaxone Sodium 2 Gm Vial) 2 gm IV Q24H [facility] Last Admin: 01/08/24 07:34 Dose: 2 gm Documented By: JAYCEE Enoxaparin Sodium (Enoxaparin Sodium 40 Mg/0.4 Ml Syringe) 40 mg SUBCUT Q24H [facility] Last Admin: 01/07/24 14:41 Dose: 40 mg Documented By: ALBANIA Famotidine (Famotidine 20 Mg Tablet) 40 mg PO BEDTIME [facility] Last Admin: 01/07/24 21:26 Dose: 40 mg Documented By: JAYCEE Fluticasone/Vilanterol (Fluticasone/Vilanterol 200/25 Blst.W.Dev) 1 puff INHALE DAILY [facility] Last Admin: 01/08/24 08:01 Dose: 1 puff Documented By: CARLOS Furosemide (Furosemide 20 Mg Tablet) 20 mg PO BID@0600,1800 [facility]; Protocol Last Admin: 01/08/24 07:32 Dose: 20 mg Documented By: JAYCEE Glucose (Glucose Gel 15 Gm Gel..Gram.) 15 gm PO Q15M PRN; Protocol PRN Reason: per Hypoglycemia Standing Ord. Guaifenesin/Codeine Phosphate (Guaifen/Codeine Sf 200/20/10ml 10 Ml Liquid) 5 ml PO Q6H PRN PRN Reason: Cough Last Admin: 01/06/24 23:59 Dose: 5 ml Documented By: JAYCEE Dextrose (D10) 250 mls @ 750 mls/hr IV Q15M PRN; Protocol PRN Reason: per Hypoglycemia Standing Ord. Insulin Human Lispro (Insulin Lispro 100 Unit/Ml 3 Ml Vial) 0 unit SUBCUT [facility]; Protocol Last Admin: 01/08/24 07:54 Dose: Not Given Documented By: ALBANIA Non-Admin Reason: No Insulin Coverage Lactulose (Lactulose 20 Gm/30 Ml Solution) 30 gm PO BID [facility] Last Admin: 01/07/24 21:55 Dose: Not Given Documented By: JAYCEE Non-Admin Reason: Patient Refused Levothyroxine Sodium (Levothyroxine Sodium 25 Mcg Tablet) 12.5 mcg PO DAILY@0600 [facility] Last Admin: 01/08/24 07:33 Dose: 12.5 mcg Documented By: JAYCEE Levothyroxine Sodium (Levothyroxine Sodium 200 Mcg Tablet) 200 mcg PO DAILY@0600 [facility] Last Admin: 01/08/24 07:32 Dose: 200 mcg Documented By: JAYCEE Lidocaine (Lidocaine 4 % Patch Adh..Patch) 1 patch TRANSDERMA DAILY PRN PRN Reason: Pain, Mild (Pain Scale 1-3) Methadone HCl (Methadone Hcl 20 Mg/2 Ml Oral.Conc) 60 mg PO DAILY@0800 [facility] Last Admin: 01/07/24 09:10 Dose: 60 mg Documented By: ALBANIA Co-signed By: BRI Perphenazine (Perphenazine 4 Mg Tablet) 4 mg PO BEDTIME [facility] Last Admin: 01/07/24 21:26 Dose: 4 mg Documented By: JAYCEE Prednisone (Prednisone 20 Mg Tablet) 40 mg PO DAILY [facility] Last Admin: 01/07/24 09:10 Dose: 40 mg Documented By: ALB[place] Sertraline HCl (Sertraline Hcl 100 Mg Tablet) 100 mg PO DAILY@1200 [facility] Last Admin: 01/07/24 13:00 Dose: 100 mg Documented By: ALBANIA Sertraline HCl (Sertraline Hcl 25 Mg Tablet) 25 mg PO DAILY@1200 [facility] Last Admin: 01/07/24 13:00 Dose: 25 mg Documented By: ALBANIA Simethicone (Simethicone 80 Mg Tab.Chew) 160 mg PO BIDAC [facility] Last Admin: 01/07/24 16:50 Dose: 160 mg Documented By: ALB[place] Sodium Chloride (0.9 % Sodium Chloride Flush 3 Ml Syringe) 3 ml IVFLUSH QSHIFT [facility] Last Admin: 01/08/24 00:00 Dose: 3 ml Documented By: JAYCEE Tiotropium [place] (Tiotropium [place] 2.5 Mcg 1 Puff/2.5 Mcg Mist.Inhal) 2 puff INHALE DAILY [facility] Last Admin: 01/08/24 08:04 Dose: Not Given Documented By: CARLOS Non-Admin Reason: Med Not Available Labs 01/06/24 05:17 01/06/24 05:37 Labs: Laboratory Results - last 24 hr 01/07/24 01/07/24 01/07/24 11:27 15:45 21:29 POC Glucose 248 H 284 H 224 H 01/08/24 07:16 POC Glucose 113 Microbiology Microbiology Results: Microbiology 01/05/24 07:42 Blood Culture - Preliminary Blood - Venous No growth after 48 hours. 01/05/24 07:30 Blood Culture - Preliminary Blood - Venous No growth after 48 hours. Assessment and Plan (1) Pneumonia: Status: Acute (2) Acute exacerbation of chronic obstructive pulmonary disease: Status: Acute Plan 58-year-old female admitted to the ICU secondary to acute encephalopathy and COPD exacerbation requiring BiPAP support. Downgraded from the ICU 01/05 Acute metabolic encephalopathy. Resolved Her UDS + for methadone no other drugs Acute on chronic hypoxemic respiratory failure due to COPD exacerbation Off BiPAP saturation stable on nasal cannula oxygen, on baseline oxygen duonebs prednisone 40 mg daily Continue ceftriaxone and azithromycin Resume baseline inhalers Chronic anemia closely monitor H&H transfuse for hemoglobin less than 7 grams/deciliter diabetes 2 Blood sugars under control Sliding scale insulin as needed Hold metformin CAP Continue empiric ceftriaxone and azithromycin Lactate normal, no sepsis Hypothyroidism Resume Synthroid Mood Resume home medications HLD Resume statin Hypertension Blood pressure stable continue amlodipine Opiate use disorder On methadone DVT prophylaxis with Full code lovenox Attending Dr. Whitley Quality Stroke Does the patient have a stroke diagnosis?: No VTE Prior VTE?: No VTE Risk Level:: Medical - moderate - high VTE Device Contraindication: N/A - Device Ordered VTE Drug Contraindication: N/A - Med Ordered
[2024-01-08 11:24] LABS: Glucose, Whole Blood 250 mg/dL (60-115)
[2024-01-08] MEDS: Insulin Lispro 100 UNIT/ML 3 ML VIAL SUBCUT ×3 (11:54→21:19)
[2024-01-08] MEDS: Sertraline HCL 100 MG TABLET PO (11:54)
[2024-01-08] MEDS: Sertraline HCL 25 MG TABLET PO (11:54)
[2024-01-08] MEDS: amLODIPine Besylate 5 MG TABLET PO (11:54)
[2024-01-08] MEDS: Enoxaparin Sodium 40 MG/0.4 ML SYRINGE SUBCUT (13:32)
[2024-01-08 16:57] LABS: Glucose, Whole Blood 356 mg/dL (60-115)
[2024-01-08] MEDS: Simethicone 80 MG TAB.CHEW 160 MG PO (17:16)
[2024-01-08 20:50] LABS: Glucose, Whole Blood 215 mg/dL (60-115)
[2024-01-08] MEDS: Atorvastatin Calcium 80 MG TABLET PO (21:19)
[2024-01-08] MEDS: Famotidine 20 MG TABLET 40 MG PO (21:19)
[2024-01-08] MEDS: Perphenazine 4 MG TABLET PO (21:19)
[2024-01-08] MEDS: guaiFEN/Codeine SF 200/20/10ML 10 ML LIQUID 5 ML PO (21:24)
[2024-01-08] MEDS: Lidocaine 4 % Patch ADH..PATCH 1 PATCH TRANSDERMA (21:27)
[2024-01-09 02:34] VITALS: O2SAT 93
[2024-01-09 03:27] VITALS: BP 158/86; PULSE 77; RESP 18; TEMP 36.5; O2SAT 96
[2024-01-09 05:55] VITALS: PULSE 84; RESP 18; O2SAT 96
[2024-01-09] MEDS: Albuterol/Iprat 2.5/0.5MG 3 ML AMPUL.NEB INHALE (05:55)
[2024-01-09 06:00] VITALS: BMI 35.1
[2024-01-09] MEDS: Levothyroxine Sodium 200 MCG TABLET PO (06:05)
[2024-01-09] MEDS: Levothyroxine Sodium 25 MCG TABLET 12.5 MCG PO (06:05)
[2024-01-09 06:06] VITALS: BP 145/91
[2024-01-09] MEDS: Furosemide 20 MG TABLET PO (06:06)
[2024-01-09] MEDS: Acetaminophen 325 MG TABLET 650 MG PO (06:10)
[2024-01-09 07:25] LABS: Glucose, Whole Blood 125 mg/dL (60-115)
--- NOTE | 2024-01-09 07:28 | PM.DS ---
DS: Providers Provider Date of Service: 01/09/24 Date of admission: 01/05/24 12:20 Primary care physician: Cathleen Sears MD DS: Diagnosis Discharge Diagnosis (1) Pneumonia: Status: Acute (2) Acute exacerbation of chronic obstructive pulmonary disease: Status: Acute DS: Summary Hospital Course Hospital Course: History and physical as per admitting provider. 58-year-old lady who is very frequent Flyer to this hospital mainly due to noncompliance and drug abuse with past medical history of chronic hypoxemic respiratory failure due to COPD on 4-6 L supplemental oxygen, hypothyroidism, opiate use disorder, HCV cirrhosis, mood disorder, hypertension, gastroesophageal reflux disease, mixed hyperlipidemia presents to the hospital with shortness of breath. Shortness of breath is acute in onset exacerbated by movement, present even at rest and is not associated with fever or cough. She is drowsy and very difficult to arouse and unable to get any further history. She received a dose of Narcan which momentarily improved her mental status but turns back to be drowsy later on 58-year-old woman treated for acute on chronic hypoxemic respiratory failure secondary to COPD exacerbation. Treated with BiPAP initially in the ICU and transitioned to oxygen. She is on 4-6 L of oxygen at home and at this point she is on her baseline. She was treated with DuoNebs, Solu-Medrol then transitioned to prednisone, Rocephin and azithromycin for presumed pneumonia. She had some mild metabolic encephalopathy likely secondary to the COPD exacerbation but this has resolved and patient is at her baseline mental status at this point. Chronic normocytic anemia. H&H stable during hospitalization Diabetes mellitus type 2. Continue home medications Hypothyroidism. Continue levothyroxine Mental health. Continue home medications Hyperlipidemia. Continue statin Hypertension. Stable blood pressure. Continue amlodipine History of opiate use disorder. Continue methadone. Last dose 01/09/2024 Time Attestation Discharge Coordination Time (in mins): 35 Quality: Safe Use of Opioids Does Pt have an Active Cancer Diagnosis on the Problem List?: No Quality: Stroke Does the patient have a stroke diagnosis?: No Physical Exam Vital Signs: Vital Signs: Last Vital Signs Temp 97.7 F 01/09/24 03:27 Pulse 84 01/09/24 05:55 Resp 18 01/09/24 05:55 BP 145/91 H 01/09/24 06:06 Pulse Ox 96 01/09/24 03:27 O2 Del Method Nasal Cannula 01/09/24 03:27 O2 Flow Rate 3 01/09/24 03:27 FiO2 35 01/05/24 21:00 Oxygen Flow Rate 5 01/05/24 06:29 BMI result Body Mass Index 35.1 Appearing in no acute distress head is normocephalic atraumatic eyes pupils are PERRLA sclera is anicteric mouth throat mucous membranes are intact and moist neck is supple no lymphadenopathy, no JVD noted lung sounds are clear to auscultation heart regular rate rhythm, clear S1, S2 positive bowel sounds, abdomen is soft, nontender neuro patient is alert x3, no focal deficits DS: Data Data Completed and Pending Completed studies during hospitalization [Text1]: Procedures Assistance with Respiratory Ventilation, Less than 24 Consecutive Hours, Continuous Positive Airway Pressure (12/07/23) Insertion of Endotracheal Airway into Trachea, Via Natural or Artificial Opening (10/25/23) Insertion of Infusion Device into Superior Vena Cava, Percutaneous Approach (06/30/23) Introduction of Vasopressor into Peripheral Vein, Percutaneous Approach (10/25/23) Respiratory Ventilation, 24-96 Consecutive Hours (10/25/23) Respiratory Ventilation, Less than 24 Consecutive Hours (06/30/23) Ultrasonography of Superior Vena Cava, Guidance (06/30/23) Labs on day of discharge: Laboratory Results - last 24 hr 01/08/24 01/08/24 01/08/24 07:16 11:19 16:46 POC Glucose 113 250 H 356 H* 01/08/24 01/09/24 20:38 07:15 POC Glucose 215 H 125 H Preliminary micro results at discharge 01/05/24 07:42 Blood Culture - Preliminary Blood - Venous No growth after 48 hours. 01/05/24 07:30 Blood Culture - Preliminary Blood - Venous No growth after 48 hours. Discharge Plan Discharge Anticipated Discharge Date/Time: 01/09/24 07:26 Patient Disposition: Home, Self-Care Discharge Diagnosis: Acute on chronic hypoxic respiratory failure COPD exacerbation Referrals: Cathleen Sears MD [Primary Care Provider] - 1 Week Discharge Medications: New prednisone 10 mg tablet See Taper PO DIRECTED Qty: 20 0RF Taper: Prednisone 40 mg daily for 2 Days and 0 Hour 30 mg daily for 2 Days and 0 Hour 20 mg daily for 2 Days and 0 Hour 10 mg daily for 2 Days and 0 Hour Rx Instructions: see taper instructions fluticasone furoate-vilanterol [Breo Ellipta] 200-25 mcg/dose Blister With Device 1 inh inhalation DAILY Qty: 60 0RF cefuroxime axetil 500 mg tablet 500 mg PO BID Qty: 4 0RF azithromycin 500 mg tablet 500 mg PO DAILY 2 Days Qty: 2 0RF Rx Instructions: start on day 2 of therapy Continued rosuvastatin 20 mg Tablet 20 mg PO BEDTIME ipratropium-albuterol 0.5 mg-3 mg(2.5 mg base)/3 mL solution for nebulization 3 ml inhalation QID PRN (Reason: wheezing) sertraline 100 mg Tablet 100 mg PO DAILY@1200 metformin 500 mg tablet extended release 24 hr 500 mg PO DAILY@1700 Rx Instructions: with dinner furosemide 20 mg tablet 20 mg PO BID levothyroxine 25 mcg tablet 12.5 mcg PO DAILY@0600 amlodipine 10 mg tablet 5 mg PO DAILY@1200 albuterol sulfate [Ventolin HFA] 90 mcg/actuation HFA aerosol inhaler 2 puff INHALATION Q6H PRN (Reason: wheezing) lidocaine 5 % adhesive patch,medicated 1 patch topical DAILY PRN (Reason: Pain) Rx Instructions: on for 12 h off for 12 h acetaminophen 500 mg tablet 1,000 mg PO Q8H PRN (Reason: moderate pain) hydrocortisone 2.5 % cream 1 appl topical BID PRN (Reason: Itching) varenicline 0.5 mg (11)- 1 mg (42) tablets,dose pack 1 ea PO DIRECTED hydroxyzine pamoate 25 mg capsule 25 mg PO Q6H PRN (Reason: itch) methocarbamol 750 mg tablet 750 mg PO Q8H PRN (Reason: pain) Qty: 15 0RF methadone 10 mg/mL concentrate 50 mg PO DAILY Rx Instructions: [facility] methadone clinic per pt- dose reduced during hospitalization to 60 mg perphenazine 4 mg tablet 4 mg PO BEDTIME sertraline 25 mg tablet 25 mg PO DAILY@1200 Incruse Ellipta 62.5 mcg/actuation blister with device 1 inh inhalation DAILY levothyroxine 200 mcg tablet 200 mcg PO DAILY@0600 pantoprazole 40 mg tablet,delayed release (DR/EC) 40 mg PO DAILY@1200 Qty: 30 6RF sennosides [senna] 8.6 mg tablet 17.2 mg PO BEDTIME PRN (Reason: constipation) Qty: 60 6RF simethicone 180 mg capsule 180 mg PO BIDAC Qty: 60 6RF famotidine 40 mg tablet 40 mg PO BEDTIME Qty: 30 6RF docusate sodium 100 mg capsule 100 mg PO BID PRN (Reason: Constipation) Qty: 60 6RF hydrocortisone [Proctosol HC] 2.5 % cream with perineal applicator 1 appl [place] BID Qty: 30 6RF Rx Instructions: BE SURE TO INCLUDE RECTAL APPICATOR!! Discontinued fluticasone propion-salmeterol [Advair Diskus] 500-50 mcg/dose blister with device 1 ea INHALATION BID Discharge Orders: Discharge Order (Routine); Ordered 01/09/24 Ordered By: Rosanna Herrera Diet: Advance to usual diet Activity on Discharge: As tolerated Stand Alone Forms: Patient Portal Discharge page Print Language: Bahraini Care Plan Goals: Last methadone dose 01/09/24 Health Concerns: Acute on chronic hypoxic respiratory failure COPD exacerbation Plan of Treatment: Follow-up with primary care provider as needed Take all medications as prescribed Assessment: See discharge summary
[2024-01-09 07:33] VITALS: BP 145/92; PULSE 96; RESP 20; TEMP 36.6; O2SAT 94
[2024-01-09 08:00] VITALS: PULSE 96; RESP 20; O2SAT 95
[2024-01-09] MEDS: Fluticasone/Vilanterol 200/25 BLST.W.DEV 1 PUFF INHALE (08:00)
[2024-01-09] MEDS: Azithromycin 500 MG TABLET PO (08:06)
[2024-01-09] MEDS: predniSONE 20 MG TABLET 40 MG PO (08:06)
[2024-01-09] MEDS: Simethicone 80 MG TAB.CHEW 160 MG PO (08:06)
[2024-01-09] MEDS: methADONE HCl 20 MG/2 ML ORAL.CONC 60 MG PO (08:06)
[2024-01-09] MEDS: 0.9 % Sodium Chloride Flush 3 ML SYRINGE IVFLUSH (08:09)
[2024-01-09] MEDS: cefTRIAXone sodium 2 GM VIAL IV (08:09)
--- NOTE | 2024-01-09 09:16 | MHC.CM.PN ---
Addendum entered by Debbie Patel 01/09/24 09:24: Patient has [facility] for home delivered Methadone; they have been notified of today's dc and dc summary has been sent via [employer]. Original Note: Patient has been medically cleared for dc to home today, self care.
== END 2024-01-09 10:36 | disposition home or self-care (01) | DRG 140 ==
LOC: HO.ED 10:41 → HO.EDOVER 12:24 → HO.ICU 12:31 → HO.IMC 01-06 16:02
PROVIDERS: Emergency Medicine; Physician Assistant Medical; Admitting Provider Internal Medicine Critical Care Medicine; Emergency Provider Emergency Medicine; PCP Family Medicine; Visit Provider Nurse Practitioner Acute Care
DX: J44.0 Chronic obstructive pulmonary disease with (acute) lower respiratory infection (principal); J96.21 Acute and chronic respiratory failure with hypoxia; G93.41 Metabolic encephalopathy; K70.30 Alcoholic cirrhosis of liver without ascites; J18.9 Pneumonia, unspecified organism; J44.1 Chronic obstructive pulmonary disease with (acute) exacerbation; F11.20 Opioid dependence, uncomplicated; F17.210 Nicotine dependence, cigarettes, uncomplicated; D64.9 Anemia, unspecified; E78.2 Mixed hyperlipidemia; E03.9 Hypothyroidism, unspecified; Z20.822 Contact with and (suspected) exposure to COVID-19; Z71.6 Tobacco abuse counseling; Z79.51 Long term (current) use of inhaled steroids; Z79.84 Long term (current) use of oral hypoglycemic drugs; Z79.890 Hormone replacement therapy; Z79.899 Other long term (current) drug therapy
CPT/HCPCS: 0241U; 36415; 71045; 80048; 80053; 80076; 80307; 82140; 82803; 82947; 83605; 83690; 83735; 83880; 84100; 84484; 85025; 85610; 87040; 93005; 94640; 99285; J0456; J0696; J1650; J1836; J2310; J2359; J2470; J2919; J3475

== ENCOUNTER → 2024-01-05 07:01 | Outpatient (BNV) | payer MEDICAID, SELFPAY | PROVIDERS: Admitting Provider Internal Medicine Critical Care Medicine; Emergency Provider Emergency Medicine; Visit Provider Internal Medicine Cardiovascular Disease | DX: R94.31 Abnormal electrocardiogram [ECG] [EKG] (principal) | CPT/HCPCS: 93010 ==

== ENCOUNTER → 2024-01-05 12:20 | Outpatient (BNV) | payer MEDICAID, SELFPAY | PROVIDERS: Admitting Provider Internal Medicine Critical Care Medicine; Emergency Provider Emergency Medicine; Visit Provider Physician Assistant Medical | DX: J18.9 Pneumonia, unspecified organism (principal); J44.1 Chronic obstructive pulmonary disease with (acute) exacerbation | CPT/HCPCS: 99232; 99239; 99499 ==

== ENCOUNTER → 2024-01-05 12:20 | Outpatient (BNV) | payer MEDICAID, SELFPAY | PROVIDERS: Admitting Provider Internal Medicine Critical Care Medicine; Emergency Provider Emergency Medicine; Visit Provider Internal Medicine Critical Care Medicine | DX: J44.1 Chronic obstructive pulmonary disease with (acute) exacerbation (principal); J18.9 Pneumonia, unspecified organism; F11.20 Opioid dependence, uncomplicated; K70.30 Alcoholic cirrhosis of liver without ascites | CPT/HCPCS: 99223; 99291 ==

== ENCOUNTER 2024-02-02 16:07 | Outpatient (REF) | payer MEDICAID, SELFPAY ==
[2024-02-02 16:15] LABS: Appearance Urine Clear; Color Urine Yellow; Glucose Urine UA Negative (Negative); Leukocyte Esterase Urine Negative (Negative); Nitrite Urine Negative (Negative); Specific Gravity - Urine 1.015 (1.005-1.025); Urine Blood Negative (Negative); Urine Ketones Negative (Negative); Urine Protein Negative (Neg-Trace)
[2024-02-02 16:18] LABS: Bacteria Urine None Seen (None Seen); Hyaline Casts Urine 0-2 /LPF (0-2); RBC Urine 0-2 /HPF (0-2); Squamous Epithelial Cell Urine 0-2 /HPF (0-2); WBC Urine 0-5 /HPF (0-5)
== END 2024-02-02 16:08 | disposition home or self-care (01) ==
LOC: HO.LNP 16:07
PROVIDERS: Visit Provider Family Medicine
DX: R32 Unspecified urinary incontinence (principal)
CPT/HCPCS: 81001

== ENCOUNTER 2024-02-16 12:53 | Outpatient (AMB) | payer MEDICAID, SELFPAY ==
[2024-02-16 12:54] VITALS: BP 118/68; PULSE 88; BMI 34.4
--- NOTE | 2024-02-16 12:54 | MHC.OFFVIS ---
Vital Signs 02/16/24 12:54 Height 5 ft Weight 176 lb 5.917 oz BMI 34.4 BP 118/68 Blood Pressure Location Lt brachial Position Sitting Pulse 88 Pulse Source Pulse Oximeter Intake Visit Reasons: 4 mth f/up Outpatient Pharmacy Manager Required: Yes Outpatient Pharmacy Manager Name: ROBLES [id number] Allergies Penicillins [PENICILLINS] Allergy (Unknown, Verified 01/05/24 06:32) RED ITCHY RASH SEAFOOD Allergy (Unknown, Uncoded 01/05/24 06:32) FEVER SWELLING Medication List - Last Reconciled 02/16/24 by Bimal Hsu MD acetaminophen 1,000 mg PO Q8H PRN albuterol sulfate 90 mcg/actuation (Ventolin HFA) 2 puffs inhalation Q6H PRN amlodipine 5 mg PO DAILY@1200 docusate sodium 100 mg PO BID PRN famotidine 40 mg PO BEDTIME fluticasone furoate-vilanterol 200-25 mcg/dose (Breo Ellipta) 1 inh inhalation DAILY furosemide 20 mg PO BID hydrocortisone 2.5% 1 appl topical BID PRN hydrocortisone 2.5% (Proctosol HC) 1 appl [place] BID hydroxyzine pamoate 25 mg PO Q6H PRN ipratropium-albuterol 0.5 mg-3 mg(2.5 mg base)/3 mL 3 mL inhalation QID PRN levothyroxine 12.5 mcg PO DAILY@0600 levothyroxine 200 mcg PO DAILY@0600 lidocaine 5% 1 patch topical DAILY PRN metformin ER 500 mg PO DAILY@1700 methadone 50 mg PO DAILY methocarbamol 750 mg PO Q8H PRN pantoprazole 40 mg PO DAILY@1200 perphenazine 4 mg PO BEDTIME prednisone See Taper mg PO DIRECTED rosuvastatin 20 mg PO BEDTIME sennosides (senna) 17.2 mg (2 x 8.6 mg) PO BEDTIME PRN sertraline 100 mg PO DAILY@1200 sertraline 25 mg PO DAILY@1200 simethicone 180 mg PO BIDAC umeclidinium 62.5 mcg/actuation (Incruse Ellipta) 1 inh inhalation DAILY varenicline 1 ea PO DIRECTED HPI Comments Details: Evette returns for follow-up. Previously no documented coronary disease or myocardial infarction or cardiomyopathy or in fact any other cardiac issues. Apparently, has done drugs including heroin and cocaine many years ago but nothing recently. She does have significant COPD at baseline and also uses oxygen. Has hepatitis-C and cirrhosis. Many comorbidities. Unfortunately, she still smoking. Has had recurring hospitalizations for respiratory failure. From cardiac standpoint, no clear history. She does not get any clear-cut angina. She does get short of breath related to her COPD. She has had further hospitalizations for respiratory reasons since last seen but nothing cardiac related. [facility] Medical History Opiate abuse, continuous Diabetes Opioid use disorder, moderate, in sustained remission Nausea and vomiting COVID Community acquired pneumonia Colon cancer screening COPD (chronic obstructive pulmonary disease) Methadone dependence Alcoholic cirrhosis Hepatitis C Pulmonary edema Polysubstance abuse Hypertension Acute and chronic respiratory failure Hypotension Respiratory failure Acute respiratory failure, unspecified whether with hypoxia or hypercapnia Hyperlipidemia Psychosis Hypoxia Acute exacerbation of chronic obstructive airways disease HTN (hypertension) Hypothyroid COPD (chronic obstructive pulmonary disease) Family History Father HTN (hypertension) Mother Gastritis Ovarian cancer Arthritis Son Thyroid disease Other Hypothyroid Social History Household Members: Significant Other Household Members Other:: 1 Housing: Apartment Do you presently have visiting nurse or other home services: Yes Alcohol intake: current Alcohol intake frequency: does not drink Comment: refuses bed alarm at times Patient Tobacco Use Status: Current someday Tobacco user Tobacco use type: Cigarette Cigarette Packs Per Day: 1 Cigarettes Per Day: 10 Years Smoked: 30 e-Cigarette/Vaping Use: Never Used Second Hand Smoke Exposure: No Substance Use Type: Heroin Advance Directives Date on File: 08/18/23 service: No Current occupational status: unemployed Review of Systems Const Denies weakness ENT Denies dizziness Card Denies chest pain, Denies chest pain with activity, Denies syncope, Denies rapid heart rate, Denies pedal edema, Denies edema, Denies leg edema, Denies lightheadedness, Denies palpitations, Denies dyspnea, Denies dyspnea on exertion and Denies orthopnea Resp Denies cough, Denies dyspnea and Denies dyspnea on exertion GI Denies hematochezia and Denies change in stool character Musc Denies abnormal gait, Denies muscle cramps, Denies muscle weakness, Denies numbness, Denies radiating pain into limb and Denies tingling Neuro Denies abnormal gait, Denies dizziness, Denies syncope, Denies numbness, Denies tingling and Denies weakness Endo Denies palpitations Physical Exam Vital Signs: Last Vital Signs Pulse 88 02/16/24 12:54 BP 118/68 02/16/24 12:54 BMI result Body Mass Index 34.4 Const General: comfortable and no acute distress Orientation/consciousness: patient oriented x3 HEENT Other: Unremarkable Head: Yes normal to inspection Neck Neck: Yes normal visual inspection Chest Chest palpation & inspection: normal inspection of the chest Resp Auscultation: clear to auscultation bilaterally Cardio Palpation: normal PMI Heart sounds: S1 normal heart sound present, S2 normal heart sound present, no gallops, no murmurs and no rubs GI Palpation (GI): Soft to palpation Back/Spine/Pelvis Other: unremarkable Skin General skin exam: no rashes or lesions noted Neuro General: patient oriented x3 Extrem General: Yes normal to inspection Psych Mental Status: mental status grossly normal Assessment & Plan Assessment & Plan (1) Atherosclerotic cardiovascular disease: Code(s): I25.10 - Atherosclerotic heart disease of [place] coronary artery without angina pectoris Category: Medical (2) COPD (chronic obstructive pulmonary disease): Code(s): J44.9 - Chronic obstructive pulmonary disease, unspecified Category: Medical (3) Chronic respiratory failure: Code(s): J96.10 - Chronic respiratory failure, unspecified whether with hypoxia or hypercapnia Category: Medical Plan In the last EKG, underlying rhythm is sinus tachycardia at 112/Min; leftward axis; no significant ST-T changes; normal NJ and corrected QT. In the last echocardiogram, LVEF 55-60% with basal inferior akinesis. Mildly increased right ventricular size. Dilated left atrium. However, in the chest CT scans, there is no evidence of coronary calcification. All the available high sensitivity troponins are normal. Cardiac BNP is also within normal limits at <10. Hence unclear etiology for the wall motion abnormality. Possible coronary event in setting of drug use for many years ago. Coronary disease still possible, but less likely as there is no calcification. Clinically, she does not have any angina whatsoever. Main issue is rather shortness of breath related to COPD. Due to advanced lung disease as well as oxygen dependence, she is not suitable for any ischemic workup like stress test or coronary CTA. Mainly aggressive risk factor modification including stopping smoking, management of risk factors. She is not clear about any of her medications and hence no changes made. She states that it comes in a pillbox. Blood pressure, sugars, lipids should be optimally managed. If any concerning symptoms like angina, advised her to contact us immediately. She understands. Coding Level of Care Code Est Pt Level 4 (81656) Diagnoses Atherosclerotic cardiovascular disease I25.10 COPD (chronic obstructive pulmonary disease) J44.9 Chronic respiratory failure J96.10
== END 2024-02-16 13:18 | disposition home or self-care (01) ==
PROVIDERS: PCP Family Medicine; Visit Provider Internal Medicine
DX: I25.10 Atherosclerotic heart disease of native coronary artery without angina pectoris (principal); J44.9 Chronic obstructive pulmonary disease, unspecified; J96.10 Chronic respiratory failure, unspecified whether with hypoxia or hypercapnia
CPT/HCPCS: 99214

== ENCOUNTER → 2024-02-16 12:53 | Outpatient (BNVA) | payer MEDICAID, SELFPAY | PROVIDERS: PCP Family Medicine; Visit Provider Internal Medicine | DX: J44.9 Chronic obstructive pulmonary disease, unspecified (principal); J96.10 Chronic respiratory failure, unspecified whether with hypoxia or hypercapnia; I25.10 Atherosclerotic heart disease of native coronary artery without angina pectoris; F17.210 Nicotine dependence, cigarettes, uncomplicated; Z99.81 Dependence on supplemental oxygen | CPT/HCPCS: 99212 ==

== ENCOUNTER 2024-04-02 05:45 | Inpatient (IN) | payer MEDICAID, SELFPAY ==
[2024-04-02] VITALS (13 sets, daily range): BP systolic 114–156; BP diastolic 69–88; PULSE 90–110; RESP 14–25; TEMP 36.5–36.9; O2SAT 85–97; BMI 30.3
--- NOTE | 2024-04-02 | ECG_ITS ---
Test Reason : SOB Blood Pressure : / mmHG Vent. Rate : 101 BPM Atrial Rate : 101 BPM P-R Int : 158 ms QRS Dur : 082 ms QT Int : 374 ms P-R-T Axes : 009 -54 015 degrees QTc Int : 484 ms Sinus tachycardia Left axis deviation Abnormal ECG When compared with ECG of 05-JAN-2024 07:43, No significant changes seen Referred By: Generic ED Physician Electronically Signed By:MORE GUERRIER
--- NOTE | ~2024-04-02 | XR_ITS ---
CLINICAL HISTORY: sob 1 view chest x-ray Comparison: 01/05/2024 Findings: Portions of the exam are obscured by overlying material. The lungs are clear. Heart size is normal. No acute fracture. IMPRESSION: 1. No acute findings. This document has been electronically signed by: Abdulaziz Roman MD on 04/02/2024 06:23:03
[2024-04-02] MEDS: Albuterol Sulfate 2.5 MG, Albuterol/Iprat 2.5/0.5MG 3 ML 3 ML INHALE (06:04)
[2024-04-02 06:06] LABS: MANUAL DIFF FLAG NO
[2024-04-02 06:08] LABS: Basophils Percent Auto 0.5 % (0-2); Eosinophils Absolute Auto 0.2 X10*3/uL (0.0-0.4); Eosinophils Percent Auto 2.6 % (0-4); Hematocrit 51.1 % (37.0-47.0); Imm Gran Abs Auto 0.02 X10*3/uL (0.00-0.03); Imm Gran Pct Auto 0.2 % (0.0-0.4); Lymphocytes Absolute Auto 3.1 X10*3/uL (1.2-4.9); Mean Corpuscular HGB Conc 31.3 g/dl (31.0-35.0); Mean Corpuscular Volume 89.3 fL (80.0-98.0); Mean Platelet Volume 10.6 fL (9.4-12.3); Monocytes Absolute Auto 0.7 X10*3/uL (0.1-1.2); Monocytes Percent Auto 7.3 % (2-11); Neutrophils Absolute Auto 4.8 x10*3/uL (2.0-8.3); Neutrophils Percent Auto 54.4 % (45-73); Platelet Count 168 X10*3/uL (160-400); Red Blood Count 5.72 X10*6/uL (4.20-5.50); White Blood Count 8.9 X10*3/uL (4.8-10.8)
[2024-04-02 06:10] LABS: Venous Blood Gas Refer to POC result
[2024-04-02 06:10] LABS: VBG Base Excess 14.6 mmol/L; VBG HCO3 46 mmol/L (22-26); VBG pCO2 87 mmHg; VBG pH 7.33 (7.32-7.43); VBG pO2 41 mmHg
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
[2024-04-02 06:31] LABS: B Type Natriuretic Peptide < 10 pg/mL (<100)
--- NOTE | 2024-04-02 06:32 | ED_ITS ---
HPI - SOB/Dyspnea General Chief Complaint: Dyspnea Stated Complaint: SOB Time Seen by Provider: 04/02/24 06:31 Source: patient and RN notes reviewed Mode of arrival: EMS Limitations: no limitations History of Present Illness ED Provider: Mackenzie Monsalve PA-C HPI Narrative: This is a 58-year-old female, with a past medical history of chronic hypoxemic respiratory failure due to COPD on 4-6 L supplemental oxygen, hypothyroidism, opiate use disorder, HCV cirrhosis, mood disorder, hypertension, GERD, mixed hyperlipidemia, who presents emergency department via EMS with complaints of shortness of breath. Patient is chronically on 4-6 L of supplemental oxygen, and states that overnight her home had lost power. She states that she realize that her home had lost power therefore she was running around trying to connect her oxygen tank to her portable oxygen tank. She states that she became increasingly short of breath and called 911. On arrival, EMS had found patient at 85%, and they had given her a do nebulizer and placed on 4 L nasal cannula. Patient reports that she is currently being followed by her primary care physician, states that she has been on prednisone as well as antibiotics as over the last week or 2 she has been sick with an URI. Denies CP, fevers, chills, abdominal pain, nausea, vomiting or diarrhea. MD elicited complaint: shortness of breath Pertinent past history: COPD and IV drug use Severity: moderate Exacerbating factors: nothing Relieving factors: oxygen and bronchodilators Known history of: COPD Associated symptoms: denies other symptoms Treatment prior to arrival: bronchodilator Related Data Home oxygen amount: 4 liters Home Medications ?Medication ?Instructions ?Recorded ?Confirmed perphenazine 4 mg tablet 4 mg PO BEDTIME 09/24/21 04/02/24 levothyroxine 200 mcg tablet 200 mcg PO DAILY@0600 10/01/22 04/02/24 sertraline 25 mg tablet 25 mg PO DAILY@1200 10/01/22 04/02/24 umeclidinium 62.5 mcg/actuation 1 inh inhalation DAILY 10/01/22 04/02/24 blister powder for inhalation (Incruse Ellipta) ipratropium 0.5 mg-albuterol 3 mg 3 ml inhalation QID PRN wheezing 04/20/23 04/02/24 (2.5 mg base)/3 mL nebulization soln sertraline 100 mg tablet 100 mg PO DAILY@1200 04/20/23 04/02/24 furosemide 20 mg tablet 20 mg PO BID 08/16/23 04/02/24 amlodipine 10 mg tablet 5 mg PO DAILY@1200 09/03/23 04/02/24 albuterol sulfate 90 mcg/actuation 2 puff inhalation Q6H PRN wheezing 10/06/23 04/02/24 aerosol inhaler (Ventolin HFA) acetaminophen 500 mg tablet 1,000 mg PO Q8H PRN moderate pain 12/08/23 04/02/24 hydroxyzine pamoate 25 mg capsule 25 mg PO Q6H PRN itch 12/08/23 04/02/24 methadone 10 mg/mL oral concentrate 56 mg PO DAILY 01/06/24 04/02/24 doxycycline hyclate 100 mg capsule 100 mg PO BID 04/02/24 04/02/24 levothyroxine 25 mcg tablet 25 mcg PO DAILY@0600 04/02/24 04/02/24 metformin 500 mg tablet,extended 500 mg PO BID 04/02/24 04/02/24 release 24 hr prednisone 10 mg tablet See Taper PO DIRECTED 04/02/24 04/02/24 rosuvastatin 20 mg tablet 20 mg PO DAILY 04/02/24 04/02/24 Previous Rx's ?Medication ?Instructions ?Recorded docusate sodium 100 mg capsule 100 mg PO BID PRN Constipation #60 12/21/23 caps famotidine 40 mg tablet 40 mg PO BEDTIME #30 tabs 12/21/23 pantoprazole 40 mg tablet,delayed 40 mg PO DAILY@1200 #30 tabs 12/21/23 release sennosides 8.6 mg tablet (senna) 17.2 mg (2 x 8.6 mg) PO BEDTIME 12/21/23 PRN constipation #60 tabs simethicone 180 mg capsule 180 mg PO BIDAC #60 caps 12/21/23 fluticasone furoate 200 1 inh inhalation DAILY #60 ea 01/09/24 mcg-vilanterol 25 mcg/dose inhalation powder (Breo Ellipta) Allergies Allergy/AdvReac Type Severity Reaction Status Date / Time Penicillins [PENICILLINS] Allergy Unknown RED ITCHY Verified 04/02/24 05:57 RASH SEAFOOD Allergy Unknown FEVER Uncoded 04/02/24 05:57 SWELLING Review of Systems 2 Review of Systems: Yes all other systems are reviewed and are negative Constitutional: Constitutional: Reports as per [facility] Past Medical History Attestation statement: The following information was validated with the patient. Medical History (Updated 04/02/24 @ 12:55 by Julio Cobb DO) Opioid use disorder, moderate, in sustained remission Opiate abuse, continuous Diabetes Nausea and vomiting COVID Community acquired pneumonia Colon cancer screening COPD (chronic obstructive pulmonary disease) Methadone dependence Alcoholic cirrhosis Hepatitis C Pulmonary edema Polysubstance abuse Hypertension Acute and chronic respiratory failure Hypotension Respiratory failure Acute respiratory failure, unspecified whether with hypoxia or hypercapnia Hyperlipidemia Psychosis Hypoxia Acute exacerbation of chronic obstructive airways disease HTN (hypertension) Hypothyroid COPD (chronic obstructive pulmonary disease) Family History Family History Father HTN (hypertension) Mother Gastritis Ovarian cancer Arthritis Son Thyroid disease Other Hypothyroid Social History Social History Household Members: Significant Other Household Members Other:: 1 Housing: Apartment Do you presently have visiting nurse or other home services: Yes Alcohol intake: current Alcohol intake frequency: does not drink Comment: refuses bed alarm at times Patient Tobacco Use Status: Current someday Tobacco user Tobacco use type: Cigarette Cigarette Packs Per Day: 1 Cigarettes Per Day: 10 Years Smoked: 30 Smoked in Last 30 Days: Yes e-Cigarette/Vaping Use: Never Used Patient Interested in Nicotine Replacement: Yes Patient Given Instructions on How to Stop Smoking: No Second Hand Smoke Exposure: No Use of substances other than those prescribed or required for medical reasons: No Substance Use Type: Heroin Last Used Substance Other:: on methadone for 10 years Currently Displaying Signs/Symptoms of Drug Intoxication Withdrawal: No Do you feel safe in your current relationship?: Yes Advance Directives: Yes Advance Directives on File: Yes Advance Directives Date on File: 08/18/23 Do you have a plan to hurt others: No Plan Recently lost weight without trying: No Patient : No service: No Current occupational status: unemployed Physical Exam 2 Vital Signs: Vital Signs: Last Vital Signs Temp 97.2 F 04/03/24 07:29 Pulse 102 H 04/03/24 08:22 Resp 20 04/03/24 08:22 BP 144/98 H 04/03/24 07:29 Pulse Ox 92 04/03/24 07:29 O2 Del Method Room Air 04/03/24 07:29 O2 Flow Rate 4 04/03/24 04:00 FiO2 59 04/02/24 07:26 Oxygen Flow Rate 5 04/02/24 05:54 BMI result Body Mass Index 30.3 Const: General: cooperative, comfortable and no acute distress O rientation/consciousness: patient oriented x3 Limitations: no limitations HEENT: Head: Yes normal to inspection, Yes normocephalic and Yes atraumatic Ears: hearing grossly normal bilaterally General nose exam: Normal external nose present Face and sinus: Yes normal facial exam Mouth: Normal oral and palatal mucosa present, oropharynx normal and moist mucous membranes Throat: Yes posterior oropharynx normal Eyes: General: appearance normal, both eyes and all related structures E yelids: Yes eyelids normal Conjunctivae: conjunctivae normal Sclerae: s clerae normal Pupils: Equal, round and reactive pupils present EOM: EOMs intact bilaterally Neck: Neck: Yes normal visual inspection, Yes full ROM and Yes no lymphadenopathy Lymphatic: no lymphadenopathy noted Chest: Chest palpation & inspection: normal inspection of the chest Resp: Other: Labored, in moderate respiratory distress, breath sounds are very diminished, with expiratory wheezes noted throughout all lung [place]. Cardio: Rate: regular rate Rhythm: regular rhythm Heart sounds: S1 normal heart sound present and S2 normal heart sound present GI: Other: Abd soft, nontender, nondistended. Inspection: Yes normal to inspection Skin: General skin exam: no rashes or lesions noted Trauma: no lacerations or abrasions Wounds: no wounds Neuro: General: patient oriented x3 and moves all extremities Cranial nerves: Yes Equal, round and reactive pupils present Extrem: Other: No lower extremity edema, no calf tenderness. General: Yes normal to inspection Right upper extremity: normal to inspection Left upper extremity: normal to inspection Right lower extremity: normal to inspection Left lower extremity: normal to inspection Course Reevaluation(s) Reevaluation #1: pt on bipap, appears comfortable, resting comfortably. will continue to monitor. Reevaluation #2: Patient taken off BiPAP for trial. Will await about a 1/2 hour and repeat VBG to ensure that CO2 improves. Critical lactic at 2.3, she is already receiving antibiotics. Lactic acidosis likely secondary to multiple updrafts. Will administer NS 500mL IV fluid bolus. Time: 10:06 Reevaluation #3: Patient has been off of BiPAP for 30 minutes, repeat VBG returns, revealing overall improvement of the pCO2 to 66, pH has improved. Patient currently on 6 L nasal cannula, saturating between 89 and 91%. She remains to be alert and oriented. Patient needs to be admitted to the medical service for further management of hypoxia. Time: 10:40 Medications Administered Generic Name Dose Route Start Last Admin Trade Name Freq PRN Reason Stop Dose Admin Acetaminophen 650 mg 04/02/24 12:44 04/03/24 00:36 Acetaminophen 325 Mg Tablet PO 650 mg Q6H PRN Administration Pain, Mild 1-3,fever,headache Albuterol/Ipratropium 3 ml 04/02/24 12:44 04/03/24 08:18 Albuterol/Iprat 2.5/0.5mg 3 Ml Ampul.Neb INHALE 3 ml Q4H PRN Administration Shortness of Breath/Wheezing Ceftriaxone Sodium 1 gm 04/02/24 13:00 04/02/24 14:18 Ceftriaxone Sodium 1 Gm Vial IVPUSH 1 gm Q24H MAYRA Administration Enoxaparin Sodium 40 mg 04/02/24 12:45 04/02/24 14:18 Enoxaparin Sodium 40 Mg/0.4 Ml Syringe SUBCUT 40 mg Q24H MAYRA Administration Insulin Human Lispro 0 unit 04/02/24 16:30 04/03/24 08:01 Insulin Lispro 100 Unit/Ml 3 Ml Vial SUBCUT 2 unit QIDACHS MAYRA Administration Protocol Methadone HCl 56 mg 04/03/24 08:55 04/03/24 09:11 Methadone Hcl 20 Mg/2 Ml Oral.Conc PO 56 mg DAILY@0800 MAYRA Administration Methylprednisolone Sodium Succinate 60 mg 04/02/24 13:00 04/03/24 06:17 Methylprednisolone Sod Succ 125 Mg/2 Ml Vial IVPUSH 60 mg Q6H MAYRA Administration Sodium Chloride 3 ml 04/02/24 16:00 04/03/24 08:01 0.9 % Sodium Chloride Flush 3 Ml Syringe IVFLUSH 3 ml QSHIFT MAYRA Administration Discontinued Medications Generic Name Dose Route Start Last Admin Trade Name Freq PRN Reason Stop Dose Admin Acetaminophen 650 mg 04/02/24 07:24 04/02/24 09:16 Acetaminophen 325 Mg Tablet PO 04/02/24 07:25 650 mg ONCE ONE Administration Albuterol Sulfate 2.5 mg/ 5 mg 04/02/24 06:29 04/02/24 06:33 Albuterol Sulfate 2.5 mg INHALE 04/02/24 06:30 5 mg ONCE ONE Administration Albuterol Sulfate 2.5 mg/ 5 mg 04/02/24 08:49 04/02/24 08:55 Albuterol Sulfate 2.5 mg INHALE 04/02/24 08:50 5 mg ONCE ONE Administration Ceftriaxone Sodium 1 gm 04/02/24 08:07 04/02/24 09:16 Ceftriaxone Sodium 1 Gm Vial IVPUSH 04/02/24 08:08 1 gm ONCE ONE Administration Albuterol Sulfate 2.5 mg/ 0 mg 04/02/24 05:59 04/02/24 06:04 Albuterol/Ipratropium 3 ml INHALE 04/02/24 06:00 1 dose ONCE ONE Administration Magnesium Sulfate 2 gm in 50 mls @ 150 mls/hr 04/02/24 06:51 04/02/24 07:25 Magnesium Sulfate/H2o IV 04/02/24 07:10 Infused ONCE ONE Infusion Azithromycin 500 mg/ Sodium 250 mls @ 125 mls/hr 04/02/24 08:07 04/02/24 11:43 Chloride IV 04/02/24 10:06 Infused ONCE ONE Infusion Sodium Chloride 500 mls @ 500 mls/hr 04/02/24 10:08 04/02/24 12:11 Ns IV 04/02/24 11:07 Infused .Q1H ONE Infusion Doxycycline Hyclate 100 mg/ 250 mls @ 166.67 mls/hr 04/02/24 12:50 04/02/24 16:31 Sodium Chloride IV 04/02/24 14:19 Infused BID ONE Infusion Methadone HCl 56 mg 04/02/24 15:59 04/02/24 16:25 Methadone Hcl 20 Mg/2 Ml Oral.Conc PO 04/02/24 16:00 56 mg ONCE ONE Administration Methylprednisolone Sodium Succinate 125 mg 04/02/24 06:28 04/02/24 06:50 Methylprednisolone Sod Succ 125 Mg/2 Ml Vial IVPUSH 04/02/24 06:29 125 mg ONCE ONE Administration Medical Decision Making Medical Decision Making MDM Narrative: This is a 58-year-old female, with a past medical history of chronic hypoxemic respiratory failure due to COPD on 4-6 L supplemental oxygen, hypothyroidism, opiate use disorder, HCV cirrhosis, mood disorder, hypertension, GERD, mixed hyperlipidemia, who presents emergency department via EMS with complaints of shortness for breath. On arrival, patient 91% nasal cannula. Upon my assessment, patient desaturating to 86% on 4L, pt increased to 6L nasal cannula, and respiratory therapy was called as VBG just returned and pt's CO2 is elevated at 87, which is higher than her baseline. Patient has already received 125 of Solu-Medrol, added 2 g of magnesium. We will continue to closely monitor. Infection is not suspected as patient was without O2 for a prolonged period of time. She has no leukocytosis. Differential Diagnosis Differential Diagnoses: The differential diagnosis associated with the presentation includes COPD exacerbation, respiratory failure, pneumonia, CHF Admission/Observation Consideration of admission/observation: Escalation of care including admission/observation considered Lab Data MDM Lab Attestation statement: I reviewed the patient's lab results. No leukocytosis, stable H&H, VBG revealing elevated CO2 at 87, higher than her baseline, elevated HCO3 at 46. 04/03/24 05:27 04/03/24 05:27 Labs: Lab Results 04/02/24 04/02/24 04/02/24 Range/Units 06:01 06:05 09:10 WBC 8.9 (4.8-10.8) X10*3/uL RBC 5.72 H (4.20-5.50) X10*6/uL Hgb 16.0 (12.0-16.0) g/dl Hct 51.1 H (37.0-47.0) % MCV 89.3 (80.0-98.0) fL MCH 28.0 (27.0-33.0) pg MCHC 31.3 (31.0-35.0) g/dl RDW 14.0 (11.0-16.0) % Plt Count 168 (160-400) X10*3/uL MPV 10.6 (9.4-12.3) fL Immature Gran % (Auto) 0.2 (0.0-0.4) % Neut % (Auto) 54.4 (45-73) % Lymph % (Auto) 35.0 (20-40) % Pender % (Auto) 7.3 (2-11) % Eos % (Auto) 2.6 (0-4) % Baso % (Auto) 0.5 (0-2) % Lymph # (Auto) 3.1 (1.2-4.9) X10*3/uL Pender # (Auto) 0.7 (0.1-1.2) X10*3/uL Eos # (Auto) 0.2 (0.0-0.4) X10*3/uL Baso # (Auto) 0.0 (0.0-0.2) X10*3/uL Abs Immat Gran (auto) 0.02 (0.00-0.03) X10*3/uL Absolute Neuts (auto) 4.8 (2.0-8.3) x10*3/uL Absolute Nucleated RBC 0.000 (0.0-0.012) X10*3/uL Nucleated RBC % (auto) 0.0 (0.0-0.2) /100WBC Smear Tech's Comments VBG pH 7.33 (7.32-7.43) VBG pCO2 87 mmHg VBG pO2 41 mmHg VBG HCO3 46 H (22-26) mmol/L VBG O2 Saturation 67.0 % VBG Base Excess 14.6 mmol/L Sodium 143 (135-145) mmol/L Potassium 3.8 (3.3-5.1) mmol/L Chloride 99 (96-108) mmol/L Carbon Dioxide 38 H (22-29) mmol/L Anion Gap 10 L (12-20) BUN 13 (9-16) mg/dL Creatinine 0.66 (0.5-1.4) mg/dL Estim Creat Clear Calc 99.7 Estimated GFR > 60 POC Glucose (60-115) mg/dL Random Glucose 84 (60-115) mg/dL Fasting Glucose (60-99) mg/dL Lactic Acid 2.3 H* (0.5-2.0) mmol/L Lactic Acid F/U @ 2Hr (0.5-2.0) mmol/L Lactic Acid F/U @ 4Hr (0.5-2.0) mmol/L Calcium 9.7 D (8.4-10.2) mg/dL Magnesium 2.1 (1.6-2.6) mg/dL Total Bilirubin 0.4 (0.0-1.0) mg/dL AST 20 (5-31) U/L ALT 30 (0-31) U/L Alkaline Phosphatase 97 (39-117) U/L Troponin I High Sens < 2.7 (<3.5-17.0) ng/L B-Natriuretic Peptide < 10 (<100) pg/mL Total Protein 8.0 (6.5-8.0) g/dL Albumin 4.3 (3.5-5.0) g/dL Influenza Type A (PCR) NEGATIVE (Negative) Influenza Type B (PCR) NEGATIVE (Negative) RSV RNA Qual (PCR) NEGATIVE (Negative) SARS-CoV-2 RNA (RT-PCR) NEGATIVE (Negative) 04/02/24 04/02/24 04/02/24 Range/Units 10:28 11:35 14:24 WBC (4.8-10.8) X10*3/uL RBC (4.20-5.50) X10*6/uL Hgb (12.0-16.0) g/dl Hct (37.0-47.0) % MCV (80.0-98.0) fL MCH (27.0-33.0) pg MCHC (31.0-35.0) g/dl RDW (11.0-16.0) % Plt Count (160-400) X10*3/uL MPV (9.4-12.3) fL Immature Gran % (Auto) (0.0-0.4) % Neut % (Auto) (45-73) % Lymph % (Auto) (20-40) % Pender % (Auto) (2-11) % Eos % (Auto) (0-4) % Baso % (Auto) (0-2) % Lymph # (Auto) (1.2-4.9) X10*3/uL Pender # (Auto) (0.1-1.2) X10*3/uL Eos # (Auto) (0.0-0.4) X10*3/uL Baso # (Auto) (0.0-0.2) X10*3/uL Abs Immat Gran (auto) (0.00-0.03) X10*3/uL Absolute Neuts (auto) (2.0-8.3) x10*3/uL Absolute Nucleated RBC (0.0-0.012) X10*3/uL Nucleated RBC % (auto) (0.0-0.2) /100WBC Smear Tech's Comments VBG pH 7.39 (7.32-7.43) VBG pCO2 66 mmHg VBG pO2 58 mmHg VBG HCO3 40 H (22-26) mmol/L VBG O2 Saturation 89.0 % VBG Base Excess 12.0 mmol/L Sodium (135-145) mmol/L Potassium (3.3-5.1) mmol/L Chloride (96-108) mmol/L Carbon Dioxide (22-29) mmol/L Anion Gap (12-20) BUN (9-16) mg/dL Creatinine (0.5-1.4) mg/dL Estim Creat Clear Calc Estimated GFR POC Glucose (60-115) mg/dL Random Glucose (60-115) mg/dL Fasting Glucose (60-99) mg/dL Lactic Acid (0.5-2.0) mmol/L Lactic Acid F/U @ 2Hr 3.2 H* (0.5-2.0) mmol/L Lactic Acid F/U @ 4Hr 4.4 H* (0.5-2.0) mmol/L Calcium (8.4-10.2) mg/dL Magnesium (1.6-2.6) mg/dL Total Bilirubin (0.0-1.0) mg/dL AST (5-31) U/L ALT (0-31) U/L Alkaline Phosphatase (39-117) U/L Troponin I High Sens (<3.5-17.0) ng/L B-Natriuretic Peptide (<100) pg/mL Total Protein (6.5-8.0) g/dL Albumin (3.5-5.0) g/dL Influenza Type A (PCR) (Negative) Influenza Type B (PCR) (Negative) RSV RNA Qual (PCR) (Negative) SARS-CoV-2 RNA (RT-PCR) (Negative) 04/02/24 04/02/24 04/03/24 Range/Units 15:55 20:54 05:27 WBC 10.8 (4.8-10.8) X10*3/uL RBC 4.95 (4.20-5.50) X10*6/uL Hgb 14.0 (12.0-16.0) g/dl Hct 44.5 (37.0-47.0) % MCV 89.9 (80.0-98.0) fL MCH 28.3 (27.0-33.0) pg MCHC 31.5 (31.0-35.0) g/dl RDW 13.9 (11.0-16.0) % Plt Count 88 L D (160-400) X10*3/uL MPV 12.3 (9.4-12.3) fL Immature Gran % (Auto) 0.6 H (0.0-0.4) % Neut % (Auto) 87.6 H (45-73) % Lymph % (Auto) 9.8 L (20-40) % Pender % (Auto) 1.8 L (2-11) % Eos % (Auto) 0.0 (0-4) % Baso % (Auto) 0.2 (0-2) % Lymph # (Auto) 1.1 L (1.2-4.9) X10*3/uL Pender # (Auto) 0.2 (0.1-1.2) X10*3/uL Eos # (Auto) 0.0 (0.0-0.4) X10*3/uL Baso # (Auto) 0.0 (0.0-0.2) X10*3/uL Abs Immat Gran (auto) 0.06 H (0.00-0.03) X10*3/uL Absolute Neuts (auto) 9.5 H (2.0-8.3) x10*3/uL Absolute Nucleated RBC 0.000 (0.0-0.012) X10*3/uL Nucleated RBC % (auto) 0.0 (0.0-0.2) /100WBC Smear Tech's Comments VERIFIED VBG pH (7.32-7.43) VBG pCO2 mmHg VBG pO2 mmHg VBG HCO3 (22-26) mmol/L VBG O2 Saturation % VBG Base Excess mmol/L Sodium 139 (135-145) mmol/L Potassium 4.7 D (3.3-5.1) mmol/L Chloride 100 (96-108) mmol/L Carbon Dioxide 32 H (22-29) mmol/L Anion Gap 12 (12-20) BUN 16 (9-16) mg/dL Creatinine 0.66 (0.5-1.4) mg/dL Estim Creat Clear Calc 99.7 Estimated GFR > 60 POC Glucose 357 H* 189 H (60-115) mg/dL Random Glucose 251 H (60-115) mg/dL Fasting Glucose 252 H (60-99) mg/dL Lactic Acid (0.5-2.0) mmol/L Lactic Acid F/U @ 2Hr (0.5-2.0) mmol/L Lactic Acid F/U @ 4Hr (0.5-2.0) mmol/L Calcium 9.2 (8.4-10.2) mg/dL Magnesium (1.6-2.6) mg/dL Total Bilirubin 0.3 (0.0-1.0) mg/dL AST 14 (5-31) U/L ALT 23 (0-31) U/L Alkaline Phosphatase 85 (39-117) U/L Troponin I High Sens (<3.5-17.0) ng/L B-Natriuretic Peptide (<100) pg/mL Total Protein 7.0 (6.5-8.0) g/dL Albumin 3.8 (3.5-5.0) g/dL Influenza Type A (PCR) (Negative) Influenza Type B (PCR) (Negative) RSV RNA Qual (PCR) (Negative) SARS-CoV-2 RNA (RT-PCR) (Negative) 04/03/24 Range/Units 07:31 WBC (4.8-10.8) X10*3/uL RBC (4.20-5.50) X10*6/uL Hgb (12.0-16.0) g/dl Hct (37.0-47.0) % MCV (80.0-98.0) fL MCH (27.0-33.0) pg MCHC (31.0-35.0) g/dl RDW (11.0-16.0) % Plt Count (160-400) X10*3/uL MPV (9.4-12.3) fL Immature Gran % (Auto) (0.0-0.4) % Neut % (Auto) (45-73) % Lymph % (Auto) (20-40) % Pender % (Auto) (2-11) % Eos % (Auto) (0-4) % Baso % (Auto) (0-2) % Lymph # (Auto) (1.2-4.9) X10*3/uL Pender # (Auto) (0.1-1.2) X10*3/uL Eos # (Auto) (0.0-0.4) X10*3/uL Baso # (Auto) (0.0-0.2) X10*3/uL Abs Immat Gran (auto) (0.00-0.03) X10*3/uL Absolute Neuts (auto) (2.0-8.3) x10*3/uL Absolute Nucleated RBC (0.0-0.012) X10*3/uL Nucleated RBC % (auto) (0.0-0.2) /100WBC Smear Tech's Comments VBG pH (7.32-7.43) VBG pCO2 mmHg VBG pO2 mmHg VBG HCO3 (22-26) mmol/L VBG O2 Saturation % VBG Base Excess mmol/L Sodium (135-145) mmol/L Potassium (3.3-5.1) mmol/L Chloride (96-108) mmol/L Carbon Dioxide (22-29) mmol/L Anion Gap (12-20) BUN (9-16) mg/dL Creatinine (0.5-1.4) mg/dL Estim Creat Clear Calc Estimated GFR POC Glucose 182 H (60-115) mg/dL Random Glucose (60-115) mg/dL Fasting Glucose (60-99) mg/dL Lactic Acid (0.5-2.0) mmol/L Lactic Acid F/U @ 2Hr (0.5-2.0) mmol/L Lactic Acid F/U @ 4Hr (0.5-2.0) mmol/L Calcium (8.4-10.2) mg/dL Magnesium (1.6-2.6) mg/dL Total Bilirubin (0.0-1.0) mg/dL AST (5-31) U/L ALT (0-31) U/L Alkaline Phosphatase (39-117) U/L Troponin I High Sens (<3.5-17.0) ng/L B-Natriuretic Peptide (<100) pg/mL Total Protein (6.5-8.0) g/dL Albumin (3.5-5.0) g/dL Influenza Type A (PCR) (Negative) Influenza Type B (PCR) (Negative) RSV RNA Qual (PCR) (Negative) SARS-CoV-2 RNA (RT-PCR) (Negative) Independent Interpretation I performed an independent interpretation of an: EKG Interpretation: EKG sinus tachycardic at 101 beats per minute, NJ interval 158, QT/QTC 374/484. Radiology Impression Discussion of test interpretation with radiology: I have reviewed the radiologist's reading. Radiologist Impression: CLINICAL HISTORY: sob 1 view chest x-ray Comparison: 01/05/2024 Findings: Portions of the exam are obscured by overlying material. The lungs are clear. Heart size is normal. No acute fracture. IMPRESSION: 1. No acute findings. This document has been electronically signed by: Abdulaziz Roman MD on 04/02/2024 06:23:03 Dictated By: Abdulaziz Roman MD Critical Care Time Critical Care Time Critical Care Time: Yes Total Critical Care Time: 35 Attestation: I have personally provided critical care time exclusive of time spent on separately billable procedures. Time includes review of lab data, radiology results, discussion with consultants, and monitoring for potential decompensation. Intervention performed as documented. Discharge Plan Discharge Clinical Impression: COPD exacerbation Patient Disposition: Admitted As Inpatient Interventions: Admission Worksheet (ED) Last Done: 04/02/24 12:00 Discharge Date/Time: 04/02/24 15:31
[2024-04-02] MEDS: Albuterol Sulfate 2.5 MG, Albuterol Sulfate (0.083%) 2.5 MG 5 MG INHALE ×2 (06:33→08:55)
[2024-04-02 06:45] LABS: Influenza A PCR NEGATIVE (Negative); Influenza B PCR NEGATIVE (Negative); Resp Syncy Virus RNA Qual PCR NEGATIVE (Negative); SARS COV2 PCR INHOUSE NEGATIVE (Negative)
[2024-04-02] MEDS: methylPREDNISolone Sod Succ 125 MG/2 ML VIAL IVPUSH (06:50)
--- NOTE | 2024-04-02 06:54 | PC.NURSE ---
provider aware of pt 02, respiratory called to place pt on bipap at this time.
[2024-04-02] MEDS: Magnesium Sulfate/H2O 2 GM/50 ML PIGGYBACK IV (07:00)
[2024-04-02 07:22] LABS: Albumin Level 4.3 g/dL (3.5-5.0); Alkaline Phosphatase 97 U/L (39-117); Anion Gap 10 (12-20); Aspartate Amino Transferase 20 U/L (5-31); Bilirubin Total 0.4 mg/dL (0.0-1.0); Blood Urea Nitrogen 13 mg/dL (9-16); Calcium 9.7 mg/dL (8.4-10.2); Carbon Dioxide 38 mmol/L (22-29); Chloride 99 mmol/L (96-108); Creatinine Clr Calc Pharmacy 99.7; Estimated Glomerular Filt Rate > 60; Glucose Random 84 mg/dL (60-115); Magnesium 2.1 mg/dL (1.6-2.6); Potassium 3.8 mmol/L (3.3-5.1); Sodium 143 mmol/L (135-145); Troponin-I High Sensitivity < 2.7 ng/L (<3.5-17.0)
--- NOTE | 2024-04-02 07:26 | PC.NURSE ---
Pt was able to tolerate ambulation to BR on 6L. Not tachipnic and able to speak in full sentences.
[2024-04-02 08:22] LABS: Alanine Aminotransferase 30 U/L (0-31)
--- NOTE | 2024-04-02 09:15 | PC.NURSE ---
Pt has been tolerating Bipap well.
[2024-04-02] MEDS: cefTRIAXone sodium 1 GM VIAL IVPUSH ×2 (09:16→14:18)
[2024-04-02] MEDS: Acetaminophen 325 MG TABLET 650 MG PO (09:16)
[2024-04-02] MEDS: Azithromycin 500 MG in 0.9 % Sodium Chloride 250 ML 125 MG IV (09:18)
[2024-04-02 10:04] LABS: Lactic Acid 2.3 mmol/L (0.5-2.0)
[2024-04-02 10:33] LABS: VBG HCO3 40 mmol/L (22-26); VBG pCO2 66 mmHg; VBG pH 7.39 (7.32-7.43); VBG pO2 58 mmHg
[2024-04-02 10:34] LABS: Venous Blood Gas Refer to POC result
[2024-04-02] MEDS: 0.9 % Sodium Chloride 500 ML IV (10:53)
[2024-04-02 11:17] LABS: Reflex Lactate? Lactic Acid Added
[2024-04-02 12:18] LABS: ~Lactic Acid-LAB USE ONLY 3.2 mmol/L (0.5-2.0)
--- NOTE | 2024-04-02 12:20 | MHC.EDTECH ---
pt requested coffee and a sandwich. Ambulated pt to bathroom. Pt resting comfortably in bed at this time.
--- NOTE | 2024-04-02 12:52 | PM.IMHP ---
History of Present Illness Date of Service: 04/02/24 Chief Complaint: Shortness of breath 58-year-old female, with a past medical history of chronic hypoxemic respiratory failure due to COPD on 4-6 L supplemental oxygen, hypothyroidism, opiate use disorder, HCV cirrhosis, mood disorder, hypertension, GERD, mixed hyperlipidemia, who presents emergency department via EMS with complaints of shortness of breath. Patient is chronically on 4-6 L of supplemental oxygen, and states that overnight her home had lost power. She states that she realize that her home had lost power therefore she was running around trying to connect her oxygen tank to her portable oxygen tank. She states that she became increasingly short of breath and called 911. On arrival, EMS had found patient at 85%, and they had given her a do nebulizer and placed on 4 L nasal cannula. Patient reports that she is currently being followed by her primary care physician, states that she has been on prednisone as well as antibiotics as over the last week or 2 she has been sick with an URI. Review of Systems Review of Systems: Denies chest pain Admits shortness of breath with minimal movement Denies nausea vomiting diarrhea Denies fever chills [facility] Medical History (Updated 04/02/24 @ 12:55 by Julio Cobb DO) Opioid use disorder, moderate, in sustained remission Opiate abuse, continuous Diabetes Nausea and vomiting COVID Community acquired pneumonia Colon cancer screening COPD (chronic obstructive pulmonary disease) Methadone dependence Alcoholic cirrhosis Hepatitis C Pulmonary edema Polysubstance abuse Hypertension Acute and chronic respiratory failure Hypotension Respiratory failure Acute respiratory failure, unspecified whether with hypoxia or hypercapnia Hyperlipidemia Psychosis Hypoxia Acute exacerbation of chronic obstructive airways disease HTN (hypertension) Hypothyroid COPD (chronic obstructive pulmonary disease) Family History Father HTN (hypertension) Mother Gastritis Ovarian cancer Arthritis Son Thyroid disease Other Hypothyroid Social History Household Members: Significant Other Household Members Other:: 1 Housing: Apartment Do you presently have visiting nurse or other home services: Yes Alcohol intake: current Alcohol intake frequency: does not drink Comment: refuses bed alarm at times Patient Tobacco Use Status: Current someday Tobacco user Tobacco use type: Cigarette Cigarette Packs Per Day: 1 Cigarettes Per Day: 10 Years Smoked: 30 Smoked in Last 30 Days: No e-Cigarette/Vaping Use: Never Used Second Hand Smoke Exposure: No Use of substances other than those prescribed or required for medical reasons: No Substance Use Type: Heroin Advance Directives: Yes Advance Directives on File: Yes Advance Directives Date on File: 08/18/23 Do you have a plan to hurt others: No Plan Patient : No service: No Current occupational status: unemployed Meds Allergies Allergy/AdvReac Type Severity Reaction Status Date / Time Penicillins [PENICILLINS] Allergy Unknown RED ITCHY Verified 04/02/24 05:57 RASH SEAFOOD Allergy Unknown FEVER Uncoded 04/02/24 05:57 SWELLING Active Medications: Current Medications Acetaminophen (Acetaminophen 325 Mg Tablet) 650 mg PO Q6H PRN PRN Reason: Pain, Mild 1-3,fever,headache Albuterol/Ipratropium (Albuterol/Iprat 2.5/0.5mg 3 Ml Ampul.Neb) 3 ml INHALE Q4H PRN PRN Reason: Shortness of Breath/Wheezing Calcium Carbonate (Calcium Carbonate 750 Mg Tab.Chew) 750 mg PO Q4H PRN PRN Reason: Heartburn Ceftriaxone Sodium (Ceftriaxone Sodium 1 Gm Vial) 1 gm IVPUSH Q24H [facility] Enoxaparin Sodium (Enoxaparin Sodium 40 Mg/0.4 Ml Syringe) 40 mg SUBCUT Q24H [facility] Doxycycline Hyclate 100 mg/ (Sodium Chloride) 250 mls @ 166.67 mls/hr IV BID ONE Stop: 04/02/24 14:19 Magnesium Hydroxide (Milk Of Magnesia 30 Ml Oral.Susp) 30 ml PO DAILY PRN PRN Reason: Constipation Melatonin (Melatonin 3 Mg Tablet) 6 mg PO BEDTIME PRN PRN Reason: Insomnia Ondansetron HCl (Ondansetron Hcl 4 Mg/2 Ml Vial) 4 mg IVPUSH Q8H PRN PRN Reason: Nausea and Vomiting Sodium Chloride (0.9 % Sodium Chloride Flush 3 Ml Syringe) 3 ml IVFLUSH [facility] Home Medications ?Medication ?Instructions ?Recorded ?Confirmed ?Last Taken ?Type rosuvastatin 20 mg tablet 20 mg PO BEDTIME 03/11/20 02/16/24 12/06/23 History perphenazine 4 mg tablet 4 mg PO BEDTIME 09/24/21 02/16/24 12/06/23 History levothyroxine 200 mcg tablet 200 mcg PO DAILY@0600 10/01/22 02/16/24 12/06/23 History sertraline 25 mg tablet 25 mg PO DAILY@1200 10/01/22 02/16/24 12/06/23 History umeclidinium 62.5 mcg/actuation 1 inh inhalation DAILY 10/01/22 02/16/24 12/06/23 History blister powder for inhalation (Incruse Ellipta) ipratropium 0.5 mg-albuterol 3 mg 3 ml inhalation QID PRN wheezing 04/20/23 02/16/24 12/06/23 History (2.5 mg base)/3 mL nebulization soln sertraline 100 mg tablet 100 mg PO DAILY@1200 04/20/23 02/16/24 12/06/23 History metformin 500 mg tablet,extended 500 mg PO DAILY@1700 07/01/23 02/16/24 12/06/23 History release 24 hr furosemide 20 mg tablet 20 mg PO BID 08/16/23 02/16/24 12/06/23 History levothyroxine 25 mcg tablet 12.5 mcg PO DAILY@0600 08/16/23 02/16/24 12/06/23 History amlodipine 10 mg tablet 5 mg PO DAILY@1200 09/03/23 02/16/24 12/06/23 History albuterol sulfate 90 mcg/actuation 2 puff inhalation Q6H PRN wheezing 10/06/23 02/16/24 12/06/23 History aerosol inhaler (Ventolin HFA) lidocaine 5 % topical patch 1 patch topical DAILY PRN Pain 10/26/23 02/16/24 12/06/23 History acetaminophen 500 mg tablet 1,000 mg PO Q8H PRN moderate pain 12/08/23 02/16/24 12/06/23 History hydrocortisone 2.5 % topical cream 1 appl topical BID PRN Itching 12/08/23 02/16/24 12/06/23 History hydroxyzine pamoate 25 mg capsule 25 mg PO Q6H PRN itch 12/08/23 02/16/24 Unknown History varenicline 0.5 mg (11)-1 mg (42) 1 ea PO DIRECTED 12/08/23 02/16/24 Unknown History tablets in a dose pack methadone 10 mg/mL oral concentrate 50 mg PO DAILY 01/06/24 02/16/24 01/04/24 History Physical Exam Vital Signs and Narrative: Vital Signs: Last Vital Signs Temp 98.5 F 04/02/24 11:12 Pulse 102 H 04/02/24 11:12 Resp 14 04/02/24 11:12 BP 114/69 04/02/24 11:12 Pulse Ox 91 L 04/02/24 11:12 O2 Del Method Nasal Cannula 04/02/24 11:12 O2 Flow Rate 6 04/02/24 11:12 FiO2 59 04/02/24 07:26 Oxygen Flow Rate 5 04/02/24 05:54 BMI result Body Mass Index 30.3 Const: Other: Awake alert oriented x3 able to speak in full sentences Resp: Other: Diminished throughout with dense expiratory wheezes [place] Cardio: Other: No S4; positive S1-S2; no S3 murmurs rubs or gallops GI: Other: Soft nontender nondistended normoactive bowel sounds Neuro: Other: Cranial nerves 2-12 grossly intact as tested. Motor is 5/5 all extremities. Sensation is intact. Cognition appropriate. Gait not observed Extrem: Other: No edema bilaterally Results Labs 04/02/24 06:01 04/02/24 06:01 Labs: Laboratory Results - last 24 hr 04/02/24 04/02/24 04/02/24 06:01 06:05 09:10 MCV 89.3 MCH 28.0 MCHC 31.3 RDW 14.0 Plt Count 168 MPV 10.6 Immature Gran % (Auto) 0.2 Neut % (Auto) 54.4 Lymph % (Auto) 35.0 [place] % (Auto) 7.3 Eos % (Auto) 2.6 Baso % (Auto) 0.5 Lymph # (Auto) 3.1 [place] # (Auto) 0.7 Eos # (Auto) 0.2 Baso # (Auto) 0.0 Abs Immat Gran (auto) 0.02 Absolute Neuts (auto) 4.8 Absolute Nucleated RBC 0.000 Nucleated RBC % (auto) 0.0 VBG pH 7.33 VBG pCO2 87 VBG pO2 41 VBG HCO3 46 H VBG O2 Saturation 67.0 VBG Base Excess 14.6 Anion Gap 10 L Estim Creat Clear Calc 99.7 Estimated GFR > 60 Random Glucose 84 Lactic Acid 2.3 H* Lactic Acid F/U @ 2Hr Calcium 9.7 D Magnesium 2.1 Total Bilirubin 0.4 AST 20 ALT 30 Alkaline Phosphatase 97 Troponin I High Sens < 2.7 B-Natriuretic Peptide < 10 Total Protein 8.0 Albumin 4.3 Influenza Type A (PCR) NEGATIVE Influenza Type B (PCR) NEGATIVE RSV RNA Qual (PCR) NEGATIVE SARS-CoV-2 RNA (RT-PCR) NEGATIVE 04/02/24 04/02/24 10:28 11:35 MCV MCH MCHC RDW Plt Count MPV Immature Gran % (Auto) Neut % (Auto) Lymph % (Auto) [place] % (Auto) Eos % (Auto) Baso % (Auto) Lymph # (Auto) [place] # (Auto) Eos # (Auto) Baso # (Auto) Abs Immat Gran (auto) Absolute Neuts (auto) Absolute Nucleated RBC Nucleated RBC % (auto) VBG pH 7.39 VBG pCO2 66 VBG pO2 58 VBG HCO3 40 H VBG O2 Saturation 89.0 VBG Base Excess 12.0 Anion Gap Estim Creat Clear Calc Estimated GFR Random Glucose Lactic Acid Lactic Acid F/U @ 2Hr 3.2 H* Calcium Magnesium Total Bilirubin AST ALT Alkaline Phosphatase Troponin I High Sens B-Natriuretic Peptide Total Protein Albumin Influenza Type A (PCR) Influenza Type B (PCR) RSV RNA Qual (PCR) SARS-CoV-2 RNA (RT-PCR) Assessment and Plan (1) COPD exacerbation: Status: Acute (2) Diabetes type 2: Qualifiers: Diabetes mellitus snf insulin use: without fisheries enforcement officer use Diabetes mellitus complication status: with other specified complication Qualified Code(s): E11.69 - Type 2 diabetes mellitus with other specified complication Status: Acute (3) Opioid use disorder, moderate, in sustained remission: Status: Acute (4) HTN (hypertension): Qualifiers: Hypertension type: primary hypertension Qualified Code(s): I10 - Essential (primary) hypertension Status: Acute Plan 58-year-old female past medical history significant for chronic hypoxemia and respiratory failure due to COPD on O2 at baseline, hypothyroidism, opiate use disorder, hep C, hypertension presents to the emergency room with complaints of worsening shortness of breath. Patient states she was being treated by her PCP for what she describes as an upper respiratory infection and lost power at home. She states she could not do a nebulizer treatments and became anxious and called EMS. Patient was found to be severely hypoxic and also hypercapnic. Received bicarb for to 3 hours in the ER with resolution of her hypercarbia. At this point in time she will be admitted to general medical floor to continue therapies 1. Hypercapnic respiratory failure secondary to COPD exacerbation -ceftriaxone/doxycycline (1) -methylprednisolone 60 mg q.6 hours -DuoNebs q.4 hours p.r.n. while awake -titrate O2 back to patient's baseline at 4 L at rest/6 L with ambulation 2. Diabetes type 2 (expect sugars to rise with methylprednisolone) -lispro correctional scale -continue outpatient metformin as ordered -diabetic diet -adjust as indicated 3. Opiate use disorder -consult addiction Medicine -continue methadone at outpatient dosing once cleared by addiction Medicine 4. Hypertension -acceptable control on current therapies -adjust as indicated Full code Lovenox Patient will require at least 1 night of observation to treat hypercapnic respiratory failure and COPD exacerbation with IV antibiotics and IV steroids. This can not be achieved a lesser acute setting Quality Stroke Does the patient have a stroke diagnosis?: No VTE Prior VTE?: No VTE Risk Level:: Medical - moderate - high VTE Device Contraindication: Treatment Not Indicated VTE Drug Contraindication: N/A - Med Ordered
[2024-04-02 13:37] LABS: Reflex Lactate? 2 Y
[2024-04-02] MEDS: methylPREDNISolone Sod Succ 125 MG/2 ML VIAL 60 MG IVPUSH ×2 (14:16→18:03)
[2024-04-02] MEDS: Enoxaparin Sodium 40 MG/0.4 ML SYRINGE SUBCUT (14:18)
--- NOTE | 2024-04-02 14:20 | HE.PHANOTE ---
RE: methadone [facility] confirmed last dose 56mg on 04/01/24 @0900
[2024-04-02] MEDS: Doxycycline Hyclate 100 MG in 0.9 % Sodium Chloride 250 ML 166.67 MG IV (14:24)
[2024-04-02 14:48] LABS: ~Lactic Acid-LAB USE ONLY 4.4 mmol/L (0.5-2.0)
--- NOTE | 2024-04-02 15:09 | PHA.MEDREC ---
Addendum entered by Matilde Garibay [facility] 04/02/24 15:26: reviewed by pharmacist, patient has recently filled rosuvastatin Original Note: Pharmacy Consult ? Medication Reconciliation Pharmacy has completed the medication reconciliation. Spoke to patient through transportation broker service to confirm med list. patient states she is no longer taking Hydrocortisone cream, lidocain patch , Methocarbamol 750 mg , Rosuvastatin 20 mg, and Verenicline starting pack. Patient confirmed she takes Levothyroxine 200 and 25 mcg for a total dose of 225 mcg daily, Sertraline 100 and 25 mg for a total dose of 125 mcg. Patient confirmed she is still on Doxycyclin hyc 100 mg and patient is on day 7 of Prednisone 10 mg taper dose (4 tabs x4 day, 3 ts x3 days, 2 tabs x 2 days, 1 tab).
[2024-04-02 16:06] LABS: Glucose, Whole Blood 357 mg/dL (60-115)
[2024-04-02] MEDS: methADONE HCl 20 MG/2 ML ORAL.CONC 56 MG PO (16:25)
[2024-04-02] MEDS: Insulin Lispro 100 UNIT/ML 3 ML VIAL SUBCUT ×2 (16:41→21:31)
[2024-04-02 20:59] LABS: Glucose, Whole Blood 189 mg/dL (60-115)
[2024-04-02] MEDS: 0.9 % Sodium Chloride Flush 3 ML SYRINGE IVFLUSH (21:35)
[2024-04-03] MEDS: Acetaminophen 325 MG TABLET 650 MG PO (00:36)
[2024-04-03] MEDS: methylPREDNISolone Sod Succ 125 MG/2 ML VIAL 60 MG IVPUSH ×5 (00:37→23:58)
[2024-04-03 04:00] VITALS: BP 156/91; PULSE 78; RESP 17; TEMP 36.4; O2SAT 90
[2024-04-03 05:43] LABS: Basophils Percent Auto 0.2 % (0-2); Hematocrit 44.5 % (37.0-47.0); Imm Gran Abs Auto 0.06 X10*3/uL (0.00-0.03); Imm Gran Pct Auto 0.6 % (0.0-0.4); Lymphocytes Absolute Auto 1.1 X10*3/uL (1.2-4.9); Lymphocytes Percent Auto 9.8 % (20-40); Mean Corpuscular HGB Conc 31.5 g/dl (31.0-35.0); Mean Corpuscular Hemoglobin 28.3 pg (27.0-33.0); Mean Corpuscular Volume 89.9 fL (80.0-98.0); Mean Platelet Volume 12.3 fL (9.4-12.3); Monocytes Absolute Auto 0.2 X10*3/uL (0.1-1.2); Monocytes Percent Auto 1.8 % (2-11); Neutrophils Absolute Auto 9.5 x10*3/uL (2.0-8.3); Neutrophils Percent Auto 87.6 % (45-73); Red Blood Count 4.95 X10*6/uL (4.20-5.50); Red Cell Distribution Width 13.9 % (11.0-16.0); White Blood Count 10.8 X10*3/uL (4.8-10.8)
[2024-04-03 05:47] LABS: MANUAL DIFF FLAG SCAN; Platelet Count 88 X10*3/uL (160-400)
[2024-04-03 06:05] LABS: SLIDE REVIEW VERIFIED
[2024-04-03 06:14] LABS: Alanine Aminotransferase 23 U/L (0-31); Albumin Level 3.8 g/dL (3.5-5.0); Alkaline Phosphatase 85 U/L (39-117); Anion Gap 12 (12-20); Aspartate Amino Transferase 14 U/L (5-31); Blood Urea Nitrogen 16 mg/dL (9-16); Calcium 9.2 mg/dL (8.4-10.2); Carbon Dioxide 32 mmol/L (22-29); Chloride 100 mmol/L (96-108); Creatinine Clr Calc Pharmacy 99.7; Estimated Glomerular Filt Rate > 60; Glucose Fasting 252 mg/dL (60-99); Glucose Random 251 mg/dL (60-115); Potassium 4.7 mmol/L (3.3-5.1); Sodium 139 mmol/L (135-145)
[2024-04-03 06:26] LABS: Bilirubin Total 0.3 mg/dL (0.0-1.0)
[2024-04-03 07:29] VITALS: BP 144/98; PULSE 86; RESP 18; TEMP 36.2; O2SAT 92
[2024-04-03 07:54] LABS: Glucose, Whole Blood 182 mg/dL (60-115)
[2024-04-03] MEDS: Insulin Lispro 100 UNIT/ML 3 ML VIAL SUBCUT ×4 (08:01→20:15)
[2024-04-03] MEDS: 0.9 % Sodium Chloride Flush 3 ML SYRINGE IVFLUSH ×3 (08:01→20:16)
[2024-04-03] MEDS: Albuterol/Iprat 2.5/0.5MG 3 ML AMPUL.NEB INHALE ×2 (08:18→15:02)
[2024-04-03 08:22] VITALS: PULSE 102; RESP 20
[2024-04-03] MEDS: methADONE HCl 20 MG/2 ML ORAL.CONC 56 MG PO (09:11)
[2024-04-03 11:27] LABS: Glucose, Whole Blood 312 mg/dL (60-115)
[2024-04-03] MEDS: Enoxaparin Sodium 40 MG/0.4 ML SYRINGE SUBCUT (12:02)
[2024-04-03] MEDS: cefTRIAXone sodium 1 GM VIAL IVPUSH (12:03)
--- NOTE | 2024-04-03 14:43 | P.PNIM_ITS ---
Subjective Subjective Date of Service: 04/03/24 Interval History: Minimal improvement overnight. Tolerant of therapies Review of Systems Denies chest pain Admits shortness of breath with minimal movement Denies nausea vomiting diarrhea Denies fever chills Physical Exam 2 Vital Signs: Vital Signs: Last Vital Signs Temp 97.2 F 04/03/24 07:29 Pulse 102 H 04/03/24 08:22 Resp 20 04/03/24 08:22 BP 144/98 H 04/03/24 07:29 Pulse Ox 92 04/03/24 07:29 O2 Del Method Nasal Cannula 04/03/24 07:29 O2 Flow Rate 4 04/03/24 07:29 FiO2 59 04/02/24 07:26 Oxygen Flow Rate 5 04/02/24 05:54 BMI result Body Mass Index 30.3 Const: Other: Awake alert oriented x3 able to speak in full sentences Resp: Other: Diminished throughout with dense expiratory wheezes [place] Cardio: Other: No S4; positive S1-S2; no S3 murmurs rubs or gallops GI: Other: Soft nontender nondistended normoactive bowel sounds Neuro: Other: Cranial nerves 2-12 grossly intact as tested. Motor is 5/5 all extremities. Sensation is intact. Cognition appropriate. Gait not observed Extrem: Other: No edema bilaterally Objective Data Active Medications Acetaminophen (Acetaminophen 325 Mg Tablet) 650 mg PO Q6H PRN PRN Reason: Pain, Mild 1-3,fever,headache Last Admin: 04/03/24 00:36 Dose: 650 mg Documented By: [place]ON Albuterol/Ipratropium (Albuterol/Iprat 2.5/0.5mg 3 Ml Ampul.Neb) 3 ml INHALE Q4H PRN PRN Reason: Shortness of Breath/Wheezing Last Admin: 04/03/24 08:18 Dose: 3 ml Documented By: SCOVILJazmin Calcium Carbonate (Calcium Carbonate 750 Mg Tab.Chew) 750 mg PO Q4H PRN PRN Reason: Heartburn Ceftriaxone Sodium (Ceftriaxone Sodium 1 Gm Vial) 1 gm IVPUSH Q24H [facility] Last Admin: 04/03/24 12:03 Dose: 1 gm Documented By: JUNE Enoxaparin Sodium (Enoxaparin Sodium 40 Mg/0.4 Ml Syringe) 40 mg SUBCUT Q24H [facility] Last Admin: 04/03/24 12:02 Dose: 40 mg Documented By: JUNE Glucose (Glucose Gel 15 Gm Gel..Gram.) 15 gm PO Q15M PRN; Protocol PRN Reason: per Hypoglycemia Standing Ord. Dextrose (D10) 250 mls @ 750 mls/hr IV Q15M PRN; Protocol PRN Reason: per Hypoglycemia Standing Ord. Insulin Human Lispro (Insulin Lispro 100 Unit/Ml 3 Ml Vial) 0 unit SUBCUT QIDACHS [facility]; Protocol Last Admin: 04/03/24 12:01 Dose: 8 unit Documented By: JUNE Magnesium Hydroxide (Milk Of Magnesia 30 Ml Oral.Susp) 30 ml PO DAILY PRN PRN Reason: Constipation Melatonin (Melatonin 3 Mg Tablet) 6 mg PO BEDTIME PRN PRN Reason: Insomnia Methadone HCl (Methadone Hcl 20 Mg/2 Ml Oral.Conc) 56 mg PO DAILY@0800 [facility] Last Admin: 04/03/24 09:11 Dose: 56 mg Documented By: JUNE Co-signed By: JUN Methylprednisolone Sodium Succinate (Methylprednisolone Sod Succ 125 Mg/2 Ml Vial) 60 mg IVPUSH Q6H [facility] Last Admin: 04/03/24 12:02 Dose: 60 mg Documented By: JUNE Ondansetron HCl (Ondansetron Hcl 4 Mg/2 Ml Vial) 4 mg IVPUSH Q8H PRN PRN Reason: Nausea and Vomiting Sodium Chloride (0.9 % Sodium Chloride Flush 3 Ml Syringe) 3 ml IVFLUSH QSHIFT [facility] Last Admin: 04/03/24 08:01 Dose: 3 ml Documented By: JUNE Labs 04/03/24 05:27 04/03/24 05:27 Labs: Laboratory Results - last 24 hr 04/02/24 04/02/24 04/02/24 14:24 15:55 20:54 MCV MCH MCHC RDW Plt Count MPV Immature Gran % (Auto) Neut % (Auto) Lymph % (Auto) [place] % (Auto) Eos % (Auto) Baso % (Auto) Lymph # (Auto) [place] # (Auto) Eos # (Auto) Baso # (Auto) Abs Immat Gran (auto) Absolute Neuts (auto) Absolute Nucleated RBC Nucleated RBC % (auto) Smear Tech's Comments Anion Gap Estim Creat Clear Calc Estimated GFR POC Glucose 357 H* 189 H Random Glucose Fasting Glucose Lactic Acid F/U @ 4Hr 4.4 H* Calcium Total Bilirubin AST ALT Alkaline Phosphatase Total Protein Albumin 04/03/24 04/03/24 04/03/24 05:27 07:31 11:15 MCV 89.9 MCH 28.3 MCHC 31.5 RDW 13.9 Plt Count 88 L D MPV 12.3 Immature Gran % (Auto) 0.6 H Neut % (Auto) 87.6 H Lymph % (Auto) 9.8 L [place] % (Auto) 1.8 L Eos % (Auto) 0.0 Baso % (Auto) 0.2 Lymph # (Auto) 1.1 L [place] # (Auto) 0.2 Eos # (Auto) 0.0 Baso # (Auto) 0.0 Abs Immat Gran (auto) 0.06 H Absolute Neuts (auto) 9.5 H Absolute Nucleated RBC 0.000 Nucleated RBC % (auto) 0.0 Smear Tech's Comments VERIFIED Anion Gap 12 Estim Creat Clear Calc 99.7 Estimated GFR > 60 POC Glucose 182 H 312 H Random Glucose 251 H Fasting Glucose 252 H Lactic Acid F/U @ 4Hr Calcium 9.2 Total Bilirubin 0.3 AST 14 ALT 23 Alkaline Phosphatase 85 Total Protein 7.0 Albumin 3.8 Microbiology Microbiology Results: Microbiology 04/02/24 09:09 Blood Culture - Preliminary Blood - Venous No growth after 24 hours. 04/02/24 09:09 Blood Culture - Preliminary Blood - Venous No growth after 24 hours. Assessment and Plan (1) Chronic respiratory failure: Status: Acute (2) COPD exacerbation: Status: Acute (3) Opioid use disorder, moderate, in sustained remission: Status: Acute (4) Diabetes type 2: Status: Acute Plan 58-year-old female past medical history significant for chronic hypoxemia and respiratory failure due to COPD on O2 at baseline, hypothyroidism, opiate use disorder, hep C, hypertension presents to the emergency room with complaints of worsening shortness of breath. Patient states she was being treated by her PCP for what she describes as an upper respiratory infection and lost power at home. She states she could not do a nebulizer treatments and became anxious and called EMS. Patient was found to be severely hypoxic and also hypercapnic. Received bicarb for to 3 hours in the ER with resolution of her hypercarbia. At this point in time she will be admitted to general medical floor to continue therapies 1. Hypercapnic respiratory failure secondary to COPD exacerbation -ceftriaxone/doxycycline (2) -methylprednisolone 60 mg q.6 hours -DuoNebs q.4 hours p.r.n. while awake -titrate O2 back to patient's baseline at 4 L at rest/6 L with ambulation 2. Diabetes type 2 (expect sugars to rise with methylprednisolone) -lispro correctional scale -continue outpatient metformin as ordered -diabetic diet -adjust as indicated 3. Opiate use disorder -consult addiction Medicine -continue methadone at outpatient dosing once cleared by addiction Medicine 4. Hypertension -acceptable control on current therapies -adjust as indicated Full code Amirahnox Patient will require at least 1 night of observation to treat hypercapnic respiratory failure and COPD exacerbation with IV antibiotics and IV steroids. This can not be achieved a lesser acute setting Quality Stroke Does the patient have a stroke diagnosis?: No VTE Prior VTE?: No VTE Risk Level:: Medical - moderate - high VTE Device Contraindication: Treatment Not Indicated VTE Drug Contraindication: N/A - Med Ordered
[2024-04-03 15:21] VITALS: BP 140/80; PULSE 88; RESP 20; TEMP 36.6; O2SAT 94
--- NOTE | 2024-04-03 15:57 | MHC.CM.PN ---
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
[2024-04-03 16:14] LABS: Glucose, Whole Blood 186 mg/dL (60-115)
[2024-04-03 19:52] VITALS: BP 148/82; PULSE 91; RESP 20; TEMP 36.7; O2SAT 92
[2024-04-03 20:15] LABS: Glucose, Whole Blood 337 mg/dL (60-115)
[2024-04-04 04:00] VITALS: BP 152/93; PULSE 78; RESP 20; TEMP 36.4; O2SAT 92
[2024-04-04] MEDS: methylPREDNISolone Sod Succ 125 MG/2 ML VIAL 60 MG IVPUSH ×2 (06:17→13:35)
[2024-04-04 07:12] LABS: Basophils Percent Auto 0.1 % (0-2); Eosinophils Percent Auto 0.1 % (0-4); Hemoglobin 14.4 g/dl (12.0-16.0); Imm Gran Abs Auto 0.08 X10*3/uL (0.00-0.03); Imm Gran Pct Auto 0.7 % (0.0-0.4); Lymphocytes Percent Auto 8.1 % (20-40); MANUAL DIFF FLAG SCAN; Mean Corpuscular HGB Conc 32.7 g/dl (31.0-35.0); Mean Corpuscular Hemoglobin 28.6 pg (27.0-33.0); Mean Corpuscular Volume 87.3 fL (80.0-98.0); Monocytes Absolute Auto 0.4 X10*3/uL (0.1-1.2); NRBC Pct Auto 0.2 /100WBC (0.0-0.2); Neutrophils Absolute Auto 10.5 x10*3/uL (2.0-8.3); PLT CLUMP 1; Red Blood Count 5.04 X10*6/uL (4.20-5.50); SCAN SMEAR FLAG 1
[2024-04-04 07:14] LABS: White Blood Count 11.9 X10*3/uL (4.8-10.8)
[2024-04-04 07:20] LABS: Alanine Aminotransferase 25 U/L (0-31); Albumin Level 3.8 g/dL (3.5-5.0); Alkaline Phosphatase 82 U/L (39-117); Anion Gap 15 (12-20); Aspartate Amino Transferase 27 U/L (5-31); Bilirubin Total 0.3 mg/dL (0.0-1.0); Blood Urea Nitrogen 18 mg/dL (9-16); Calcium 9.1 mg/dL (8.4-10.2); Carbon Dioxide 32 mmol/L (22-29); Chloride 98 mmol/L (96-108); Creatinine Clr Calc Pharmacy 107.9; Estimated Glomerular Filt Rate > 60; Glucose Fasting 213 mg/dL (60-99); Potassium 4.9 mmol/L (3.3-5.1); Sodium 140 mmol/L (135-145); Total Protein 7.4 g/dL (6.5-8.0)
[2024-04-04 07:25] VITALS: BP 161/99; PULSE 74; RESP 18; TEMP 36; O2SAT 92
[2024-04-04 07:32] LABS: Platelet Count 93 X10*3/uL (160-400); SLIDE REVIEW VERIFIED
[2024-04-04 07:37] LABS: Glucose, Whole Blood 187 mg/dL (60-115)
[2024-04-04] MEDS: Insulin Lispro 100 UNIT/ML 3 ML VIAL SUBCUT ×2 (08:07→11:45)
[2024-04-04] MEDS: methADONE HCl 20 MG/2 ML ORAL.CONC 56 MG PO (08:08)
[2024-04-04] MEDS: 0.9 % Sodium Chloride Flush 3 ML SYRINGE IVFLUSH ×2 (08:11→13:36)
[2024-04-04] MEDS: Albuterol/Iprat 2.5/0.5MG 3 ML AMPUL.NEB INHALE (08:37)
[2024-04-04 08:38] VITALS: PULSE 86; RESP 18; O2SAT 91
[2024-04-04 11:17] LABS: Glucose, Whole Blood 320 mg/dL (60-115)
[2024-04-04] MEDS: Acetaminophen 325 MG TABLET 650 MG PO (11:49)
--- NOTE | 2024-04-04 11:52 | PM.DS ---
DS: Providers Provider Date of Service: 04/04/24 Date of admission: 04/03/24 10:44 Date of discharge: 04/04/24 Primary care physician: [facility] Consults: 04/03/24 08:49 Addiction Medicine Routine Consulting Provider: Addiction Covering Reason for consultation: methadone dosing Has provider been notified: Yes DS: Diagnosis Discharge Diagnosis (1) Chronic respiratory failure: Status: Acute (2) COPD exacerbation: Status: Acute (3) Opioid use disorder, moderate, in sustained remission: Status: Acute (4) Diabetes type 2: Status: Acute DS: Summary Hospital Course Hospital Course: 58-year-old female, with a past medical history of chronic hypoxemic respiratory failure due to COPD on 4-6 L supplemental oxygen, hypothyroidism, opiate use disorder, HCV cirrhosis, mood disorder, hypertension, GERD, mixed hyperlipidemia, who presents emergency department via EMS with complaints of shortness of breath. Patient is chronically on 4-6 L of supplemental oxygen, and states that overnight her home had lost power. She states that she realize that her home had lost power therefore she was running around trying to connect her oxygen tank to her portable oxygen tank. She states that she became increasingly short of breath and called 911. On arrival, EMS had found patient at 85%, and they had given her a do nebulizer and placed on 4 L nasal cannula. Patient reports that she is currently being followed by her primary care physician, states that she has been on prednisone as well as antibiotics as over the last week or 2 she has been sick with an URI. Hospital Course Patient admitted to general medical floor and started on IV ceftriaxone and azithromycin along with pulse dose steroids. Over the next 48 hours her oxygen requirement has returned to baseline and she is medically acceptable for discharge. She will be discharged to complete a course of Ceftin as well as a prednisone taper. She will follow up with the PCP as scheduled Time Attestation Discharge Coordination Time (in mins): 35 Quality: Safe Use of Opioids Does Pt have an Active Cancer Diagnosis on the Problem List?: No Quality: Stroke Does the patient have a stroke diagnosis?: No Physical Exam Vital Signs: Vital Signs: Last Vital Signs Temp 96.8 F 04/04/24 07:25 Pulse 86 04/04/24 08:38 Resp 18 04/04/24 08:38 BP 161/99 H 04/04/24 07:25 Pulse Ox 92 04/04/24 07:25 O2 Del Method Nasal Cannula 04/04/24 07:25 O2 Flow Rate 5 04/04/24 07:25 FiO2 59 04/02/24 07:26 Oxygen Flow Rate 5 04/02/24 05:54 BMI result Body Mass Index 30.3 Const: Other: Awake alert oriented x3 able to speak in full sentences Resp: Other: Diminished throughout with improvement in expiratory wheezes Cardio: Other: No S4; positive S1-S2; no S3 murmurs rubs or gallops GI: Other: Soft nontender nondistended normoactive bowel sounds Neuro: Other: Cranial nerves 2-12 grossly intact as tested. Motor is 5/5 all extremities. Sensation is intact. Cognition appropriate. Gait not observed Extrem: Other: No edema bilaterally DS: Data Data Completed and Pending Completed studies during hospitalization [Text1]: Procedures Assistance with Respiratory Ventilation, Less than 24 Consecutive Hours, Continuous Positive Airway Pressure (01/05/24) Insertion of Endotracheal Airway into Trachea, Via Natural or Artificial Opening (10/25/23) Insertion of Infusion Device into Superior Vena Cava, Percutaneous Approach (06/30/23) Introduction of Vasopressor into Peripheral Vein, Percutaneous Approach (10/25/23) Respiratory Ventilation, 24-96 Consecutive Hours (10/25/23) Respiratory Ventilation, Less than 24 Consecutive Hours (06/30/23) Ultrasonography of Superior Vena Cava, Guidance (06/30/23) Labs on day of discharge: Laboratory Results - last 24 hr 04/03/24 04/03/24 04/04/24 16:10 19:55 06:16 WBC 11.9 H RBC 5.04 Hgb 14.4 Hct 44.0 MCV 87.3 MCH 28.6 MCHC 32.7 RDW 14.0 Plt Count 93 L MPV Not Reportable Immature Gran % (Auto) 0.7 H Neut % (Auto) 88.0 H Lymph % (Auto) 8.1 L [place] % (Auto) 3.0 Eos % (Auto) 0.1 Baso % (Auto) 0.1 Lymph # (Auto) 1.0 L [place] # (Auto) 0.4 Eos # (Auto) 0.0 Baso # (Auto) 0.0 Abs Immat Gran (auto) 0.08 H Absolute Neuts (auto) 10.5 H Absolute Nucleated RBC 0.020 H Nucleated RBC % (auto) 0.2 Smear Tech's Comments VERIFIED Sodium 140 Potassium 4.9 Chloride 98 Carbon Dioxide 32 H Anion Gap 15 BUN 18 H Creatinine 0.61 Estim Creat Clear Calc 107.9 Estimated GFR > 60 POC Glucose 186 H 337 H Fasting Glucose 213 H Calcium 9.1 Total Bilirubin 0.3 AST 27 ALT 25 Alkaline Phosphatase 82 Total Protein 7.4 Albumin 3.8 04/04/24 04/04/24 07:25 11:13 WBC RBC Hgb Hct MCV MCH MCHC RDW Plt Count MPV Immature Gran % (Auto) Neut % (Auto) Lymph % (Auto) [place] % (Auto) Eos % (Auto) Baso % (Auto) Lymph # (Auto) [place] # (Auto) Eos # (Auto) Baso # (Auto) Abs Immat Gran (auto) Absolute Neuts (auto) Absolute Nucleated RBC Nucleated RBC % (auto) Smear Tech's Comments Sodium Potassium Chloride Carbon Dioxide Anion Gap BUN Creatinine Estim Creat Clear Calc Estimated GFR POC Glucose 187 H 320 H Fasting Glucose Calcium Total Bilirubin AST ALT Alkaline Phosphatase Total Protein Albumin Preliminary micro results at discharge 04/02/24 09:09 Blood Culture - Preliminary Blood - Venous No growth after 48 hours. 04/02/24 09:09 Blood Culture - Preliminary Blood - Venous No growth after 48 hours. Discharge Plan Discharge Anticipated Discharge Date/Time: 04/04/24 11:47 Patient Disposition: Home Health Service Discharge Diagnosis: COPD exacerbation Referrals: [facility] [Primary Care Provider] - 1 Week Discharge Medications: New cefuroxime axetil 500 mg tablet 500 mg PO BID 10 Days Qty: 20 0RF prednisone 10 mg tablet See Rx Instructions .Route .COMPLEX Qty: 45 0RF Rx Instructions: 10 mg orally; 5 tabs p.o. daily x3 days; 4 tabs p.o. daily x3 days; 3 tabs daily x3 days; 2 tabs daily x3 days; 1 tab daily x3 days Continued ipratropium-albuterol 0.5 mg-3 mg(2.5 mg base)/3 mL solution for nebulization 3 ml inhalation QID PRN (Reason: wheezing) sertraline 100 mg Tablet 100 mg PO DAILY@1200 furosemide 20 mg tablet 20 mg PO BID amlodipine 10 mg tablet 5 mg PO DAILY@1200 albuterol sulfate [Ventolin HFA] 90 mcg/actuation HFA aerosol inhaler 2 puff INHALATION Q6H PRN (Reason: wheezing) acetaminophen 500 mg tablet 1,000 mg PO Q8H PRN (Reason: moderate pain) hydroxyzine pamoate 25 mg capsule 25 mg PO Q6H PRN (Reason: itch) methadone 10 mg/mL concentrate 56 mg PO DAILY Rx Instructions: [facility] clinic per pt- dose reduced during hospitalization to 60 mg fluticasone furoate-vilanterol [Breo Ellipta] 200-25 mcg/dose Blister With Device 1 inh inhalation DAILY Qty: 60 0RF levothyroxine 25 mcg tablet 25 mcg PO DAILY@0600 metformin 500 mg tablet extended release 24 hr 500 mg PO BID rosuvastatin 20 mg Tablet 20 mg PO DAILY perphenazine 4 mg tablet 4 mg PO BEDTIME sertraline 25 mg tablet 25 mg PO DAILY@1200 Incruse Ellipta 62.5 mcg/actuation blister with device 1 inh inhalation DAILY levothyroxine 200 mcg tablet 200 mcg PO DAILY@0600 pantoprazole 40 mg tablet,delayed release (DR/EC) 40 mg PO DAILY@1200 Qty: 30 6RF sennosides [senna] 8.6 mg tablet 17.2 mg PO BEDTIME PRN (Reason: constipation) Qty: 60 6RF simethicone 180 mg capsule 180 mg PO BIDAC Qty: 60 6RF famotidine 40 mg tablet 40 mg PO BEDTIME Qty: 30 6RF docusate sodium 100 mg capsule 100 mg PO BID PRN (Reason: Constipation) Qty: 60 6RF Discontinued doxycycline hyclate 100 mg capsule 100 mg PO BID Rx Instructions: End date 04/05/24 prednisone 10 mg tablet See Taper PO DIRECTED Taper: Prednisone 20 mg daily for 2 Days and 0 Hour 10 mg daily for 2 Days and 0 Hour Rx Instructions: see taper instructions on day 7 End date 04/05/24 Discharge Orders: Discharge Order (Routine); Ordered 04/04/24 Ordered By: Julio Cobb Diet: Advance to usual diet Activity on Discharge: As tolerated Stand Alone Forms: Patient Portal Discharge page Print Language: Kuwaiti Care Plan Goals: Resume all medicines as taken prior to the hospitalization Health Concerns: Ceftin 500 twice daily for 10 days has been added to your regimen; prednisone taper has been added. Take as directed. Plan of Treatment: Continue all other respiratory treatments as taken; follow up with PCP next available Assessment: See discharge summary
--- NOTE | 2024-04-04 11:55 | P.F2F_ITS ---
Service Date Service Date: 04/04/24 Encounter Date of encounter: 04/04/24 Encounter: Acute hospitalization Reasons for Services Signs and symptoms assessed: Assess respiratory status and med compliance Reason for custodial: medication management and other (Respiratory status) Homebound: Leaving the home is medically contraindicated at this time without the asist of a device and/or another person due th the listed conditions above and below. Reason homebound: unsteady gait / fall risk, shortness of breath with minimal effort and unable to drive Certification: Based on the above findings, I certify that this patient is confined to the home and needs intermittent custodial care, physical therapy and/or speech therapy, or continues to need occupational therapy. The patient is under my care, and I have initiated the establishment of the plan of care. The patient will be followed by a physician who will periodically review the plan of care. Time Spent With Patient Time: Total time managing care of this patient today ____ minutes.
--- NOTE | 2024-04-04 13:03 | MHC.CM.PN ---
Addendum entered by Nohemy Hines 04/04/24 13:40: A Last dose letter has been sent to the agency. A copy of the Last dose letter has been given to the patient. She will transport via BLS. 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 Original Note: Patient is discharged today to home. [facility] will resume services tomorrow. Patient transported via BLS.
[2024-04-04] MEDS: cefTRIAXone sodium 1 GM VIAL IVPUSH (13:35)
[2024-04-04] MEDS: Enoxaparin Sodium 40 MG/0.4 ML SYRINGE SUBCUT (13:35)
--- NOTE | 2024-04-06 08:22 | P.CDIM_ITS ---
PROVIDER RESPONSE TEXT: To clarify, the appropriate diagnosis supported by the clinical indicators: Acute on chronic QUERY TEXT: PHYSICIAN'S DOCUMENTATION REQUEST Date of Query: 04/04/2024 09:54 AM EST Patient Name: Sandra Rose Admit Date: 04/03/2024 Dear Julio Cobb DO, A review of the medical record indicates additional documentation may be needed. Please review below and update the documentation accordingly. Clinical Indicators: presented with shortness of breath found to be hypoxic and hypercapnic received bicarb on Ceftriaxone/Doxycycline, methylprednisolone and DuoNebs patient is on oxygen at baseline PMH: chronic hypoxemia and respiratory failure, COPD Clarify which of the following accurately represents the acuity of the Respiratory Failure. Possible options might include: Acute Acute on chronic Compensated Chronic stable condition Remission Other (explain) Clinically unable to determine (explain) Thank you, Karyn Montalvo RN Use of terms such as suspected, likely, concern for, or probable (associated with a specific diagnosi s that is being evaluated, monitored, or treated as if it exists) are acceptable and can be coded in the inpatient se tting, when documented at the time of discharge. Please use your independent medical judgment in providing your response. THIS QUERY IS PART OF THE PERMANENT MEDICAL RECORD
== END 2024-04-04 15:19 | disposition home health service (06) | DRG 140 ==
LOC: HO.ED 12:00 → HO.EDOVER 12:52 → HO.S3 13:56
PROVIDERS: Physician Assistant Medical; Admitting Provider Hospitalist; Emergency Provider Emergency Medicine Emergency Medical Services; PCP Family Medicine; Visit Provider Hospitalist
DX: J44.1 Chronic obstructive pulmonary disease with (acute) exacerbation (principal); J96.21 Acute and chronic respiratory failure with hypoxia; K74.69 Other cirrhosis of liver; Z99.81 Dependence on supplemental oxygen; J96.22 Acute and chronic respiratory failure with hypercapnia; F11.20 Opioid dependence, uncomplicated; E03.9 Hypothyroidism, unspecified; I10 Essential (primary) hypertension; F17.210 Nicotine dependence, cigarettes, uncomplicated; Z71.6 Tobacco abuse counseling; Z20.822 Contact with and (suspected) exposure to COVID-19; Z79.51 Long term (current) use of inhaled steroids; Z79.890 Hormone replacement therapy; Z79.899 Other long term (current) drug therapy
CPT/HCPCS: 0241U; 36415; 71045; 80053; 82803; 82947; 83605; 83735; 83880; 84484; 85025; 87040; 93005; 94640; 99285; J0456; J0696; J1650; J2919; J3475

== ENCOUNTER → 2024-04-02 06:04 | Outpatient (BNV) | payer MEDICAID, SELFPAY | PROVIDERS: Emergency Provider Emergency Medicine Emergency Medical Services; Visit Provider Internal Medicine | DX: R06.02 Shortness of breath (principal) | CPT/HCPCS: 93010 ==

== ENCOUNTER → 2024-04-02 06:05 | Outpatient (BNV) | payer MEDICAID, SELFPAY | PROVIDERS: Visit Provider Specialist | DX: R06.02 Shortness of breath (principal) | CPT/HCPCS: 71045 ==

== ENCOUNTER → 2024-04-02 12:44 | Outpatient (BNV) | payer MEDICAID, SELFPAY | PROVIDERS: Admitting Provider Hospitalist; Emergency Provider Emergency Medicine Emergency Medical Services; Visit Provider Hospitalist | DX: J44.1 Chronic obstructive pulmonary disease with (acute) exacerbation (principal); E11.69 Type 2 diabetes mellitus with other specified complication; F11.21 Opioid dependence, in remission; I10 Essential (primary) hypertension | CPT/HCPCS: 99223; 99232; 99239; G0180 ==

== ENCOUNTER 2024-06-12 14:06 | Outpatient (REF) | payer MEDICAID, SELFPAY ==
[2024-06-12 16:49] LABS: MANUAL DIFF FLAG NO
[2024-06-12 16:57] LABS: Basophils Percent Auto 0.5 % (0-2); Eosinophils Percent Auto 0.2 % (0-4); Hematocrit 48.2 % (37.0-47.0); Imm Gran Abs Auto 0.01 X10*3/uL (0.00-0.03); Imm Gran Pct Auto 0.2 % (0.0-0.4); Lymphocytes Percent Auto 15.6 % (20-40); Mean Corpuscular HGB Conc 31.1 g/dl (31.0-35.0); Mean Corpuscular Hemoglobin 27.8 pg (27.0-33.0); Mean Corpuscular Volume 89.3 fL (80.0-98.0); Mean Platelet Volume 11.6 fL (9.4-12.3); Monocytes Absolute Auto 0.1 X10*3/uL (0.1-1.2); Monocytes Percent Auto 1.1 % (2-11); Neutrophils Absolute Auto 5.1 x10*3/uL (2.0-8.3); Neutrophils Percent Auto 82.4 % (45-73); Platelet Count 161 X10*3/uL (160-400); Red Cell Distribution Width 14.4 % (11.0-16.0); White Blood Count 6.2 X10*3/uL (4.8-10.8)
[2024-06-12 17:13] LABS: Alanine Aminotransferase 31 U/L (0-31); Albumin Level 4.3 g/dL (3.5-5.0); Anion Gap 15 (12-20); Aspartate Amino Transferase 30 U/L (5-31); Bilirubin Total 0.5 mg/dL (0.0-1.0); Blood Urea Nitrogen 15 mg/dL (9-16); C Reactive Protein 0.13 mg/dL (< or = 0.50); Calcium 9.7 mg/dL (8.4-10.2); Carbon Dioxide 33 mmol/L (22-29); Chloride 98 mmol/L (96-108); Cholesterol 282 mg/dL (<200); Estimated Glomerular Filt Rate > 60; Glucose Random 181 mg/dL (60-115); HDL Cholesterol 47 mg/dL (>40); LDL Cholesterol Calculated 182 mg/dL (<100); Potassium 4.2 mmol/L (3.3-5.1); Sodium 142 mmol/L (135-145); Total Protein 8.3 g/dL (6.5-8.0); Triglycerides 269 mg/dL (<150); Uric Acid 4.4 mg/dL (2.4-5.7)
[2024-06-12 17:33] LABS: TSH reflex Free T4 0.22 uIU/mL (0.32-4.0)
[2024-06-12 17:47] LABS: Reflex LDLD? No
[2024-06-12 17:48] LABS: Alkaline Phosphatase 95 U/L (39-117)
[2024-06-12 17:54] LABS: Erythrocyte Sedimentation Rate 12 MM/HR (0-20)
[2024-06-12 18:28] LABS: Free T4 (Free Thyroxine) 1.13 ng/dL (0.71-1.85)
== END 2024-06-12 14:07 | disposition home or self-care (01) ==
LOC: HO.HHCL 14:06
PROVIDERS: Visit Provider Family Medicine
DX: M25.40 Effusion, unspecified joint (principal); E78.5 Hyperlipidemia, unspecified; E06.3 Autoimmune thyroiditis; I10 Essential (primary) hypertension
CPT/HCPCS: 36415; 80053; 80061; 84439; 84443; 84550; 85025; 85652; 86140

== ENCOUNTER 2024-06-20 11:54 | Outpatient (AMB) | payer MEDICAID, SELFPAY ==
--- NOTE | 2024-06-20 12:02 | A.OFFVIS_ITS ---
Vital Signs 06/20/24 12:04 Height 5 ft 5 in Weight 180 lb BMI 30.0 BP 106/69 Blood Pressure Location Lt brachial Position Sitting Pulse 92 Pulse Oximetry (%) 95 Oxygen Delivery Method Nasal Cannula Intake Visit Reasons: 6 month follow up ETOH cirrhosis, GERD Intake Note: Patient follow up for ETHOS cirrhosis, GERD. Patient cc: gassy, constipation, difficulty swallowing even water, denies any other GI issues for today visit. Administrative Law Judge Required: Yes Administrative Law Judge [place] [facility] [place] Allergies Penicillins [PENICILLINS] Allergy (Unknown, Verified 06/20/24 12:02) RED ITCHY RASH SEAFOOD Allergy (Unknown, Uncoded 04/02/24 05:57) FEVER SWELLING HPI HPI 6 month follow up ETOH cirrhosis, GERD: Details: Assessment & Plan (1) GERD (gastroesophageal reflux disease): Code(s): K21.9 - Gastro-esophageal reflux disease without esophagitis Category: Medical (2) Alcoholic cirrhosis: Code(s): K70.30 - Alcoholic cirrhosis of liver without ascites Category: Medical (3) Diabetes: Code(s): E11.9 - Type 2 diabetes mellitus without complications Category: Medical Plan Burmese #Niece translates per pt request She was hospitalized and intubated recently apparently she had COVID and this drove her into respiratory failure. While this is well documented her family was not aware of the COVID diagnosis so I did review this with them. I told him it is important in the future to keep up with her COVID vaccines given her chronic respiratory problems. She will go for the blood work that were missing I never got a full autoimmune workup on her and the ultrasound was not designated to the correct place and I have switched that today. She continues to be abstinent to alcohol since March which is good for her liver health. I also was unaware that she is diabetic, she asks for a fingerstick to check her sugar today and that is what tips me off. Obviously control of her blood sugars also important to her liver health so I will get a glucose and A1c. She continues on her pantoprazole in the morning famotidine at night and simethicone. She still has a lot of gas and bloating but this was going to come with her central adiposity and all of her multiple health problems including her chronic methadone therapy. For constipation and she endorses moving her bowels well and having good control of her GERD. Return office visit in 6 months Orders: Orders US abdomen comp w elastography 10/12/23 K74.60 - Unspecified cirrhosis of liver Smooth Muscle Antibody Today K70.30 - Alcoholic cirrhosis of liver without ascites Phosphatidylethanol, Blood Today K70.30 - Alcoholic cirrhosis of liver without ascites AMB Fasting Glucose Today E11.9 - Type 2 diabetes mellitus without complications, K70.30 - Alcoholic cirrhosis of liver without ascites, Z13.9 - Encounter for screening, unspecified Hemoglobin A1c Today E11.9 - Type 2 diabetes mellitus without complications PASCUAL Reflex Titer and Pattern Today K70.30 - Alcoholic cirrhosis of liver without ascites Mitochondrial Antibody Today K70.30 - Alcoholic cirrhosis of liver without ascites Liver Panel Today E11.9 - Type 2 diabetes mellitus without complications, K70.30 - Alcoholic cirrhosis of liver without ascites Medications: New sennosides (senna) 17.2 mg (2 x 8.6 mg) PO BEDTIME PRN 60 tabs 6RF constipation hydrocortisone 2.5% (Proctosol HC) BE SURE TO INCLUDE RECTAL APPICATOR!! 1 appl LA BID 30 grams 6RF hemorrhoids K64.9 - Unspecified hemorrhoids pantoprazole 40 mg PO DAILY@1200 30 tabs 6RF simethicone 180 mg PO BIDAC 60 caps 6RF docusate sodium 100 mg PO BID PRN 60 caps 6RF Constipation Refilled famotidine 40 mg PO BEDTIME 30 tabs 6RF LABS: ULTRASOUND OF THE ABDOMEN WITH ELASTOGRAPHY NOT OBTAINED Laboratory Tests 12/21/23 06/12/24 13:00 14:10 Total Bilirubin 0.5 AST 30 ALT 31 Alkaline Phosphatase 95 PASCUAL Screen NEGATIVE Anti-Mitochondrial Ab NEGATIVE Anti-Smooth Muscle Ab <20 PEth 16:0/18.1 (POPEth) NEGATIVE PEth 16:0/18.2 (PLPEth) NEGATIVE TODAY'S VISIT Burmese #PASCUAL live She continues on her pantoprazole in the morning famotidine at night and simethicone. I also rx'd colace and senna for [facility]IC as she is on methadone therapy which she feels is working well for her. She has been somewhat down recently r/t her health problems, but she has a counselor and it helps her to speak with them. She is still waiting for a p sychiatrist appointment. We will try to get her US rescheduled as her PT-1 somehow got misscheduled and they failed to pick her up. We reviewed her other labs and she seems to be doing well in terms of the LAYTON. She continues to abstain from ETOH for 1.5 years now. ROV 6 mos. [facility] Medical History (Updated 06/20/24 @ 12:59 by ESTHELA Rod) Alcoholic cirrhosis Diabetes type 2 Chronic respiratory failure Opioid use disorder, moderate, in sustained remission Opiate abuse, continuous Diabetes Nausea and vomiting COVID Community acquired pneumonia Colon cancer screening COPD (chronic obstructive pulmonary disease) Methadone dependence Hepatitis C Pulmonary edema Polysubstance abuse Hypertension Acute and chronic respiratory failure Hypotension Respiratory failure Acute respiratory failure, unspecified whether with hypoxia or hypercapnia Hyperlipidemia Psychosis Hypoxia Acute exacerbation of chronic obstructive airways disease HTN (hypertension) Hypothyroid COPD (chronic obstructive pulmonary disease) Family History Father HTN (hypertension) Mother Gastritis Ovarian cancer Arthritis Son Thyroid disease Other Hypothyroid Social History Household Members: Significant Other Household Members Other:: 1 Housing: Apartment Do you presently have visiting nurse or other home services: Yes Alcohol intake: current Alcohol intake frequency: does not drink Comment: refuses bed alarm at times Patient Tobacco Use Status: Current someday Tobacco user Tobacco use type: Cigarette Cigarette Packs Per Day: 1 Cigarettes Per Day: 10 Years Smoked: 30 e-Cigarette/Vaping Use: Never Used Second Hand Smoke Exposure: No Substance Use Type: Heroin Advance Directives Date on File: 08/18/23 service: No Current occupational status: unemployed Review of Systems Const Reports fatigue, Denies fever(s), Denies night sweats, Denies poor appetite and Denies weight loss ENT Reports Normal hearing present, Denies dysphagia, Denies odynophagia, Denies throat swelling and Denies tongue swelling Card Reports no additional complaints and Reports dyspnea on exertion Resp Reports dyspnea on exertion GI Details: Denies abdominal pain, Denies melena, Denies bloating, Denies hematochezia, Reports constipation, Denies GI cramping, Denies dysphagia, Denies excessive flatus, Denies early satiety, Reports heartburn, Denies diarrhea, Denies nausea, Denies odynophagia, Denies vomiting and Denies hematemesis Skin/Breast Denies pruritus, Denies lesions, Denies rash and Denies jaundice Neuro Reports Normal hearing present and Denies Abnormal speech present Psych Reports depression, Denies hopelessness, Denies homicidal ideation and Denies suicidal ideation Endo Reports fatigue Aller/Immun Denies throat swelling and Denies tongue swelling Physical Exam Vital Signs: Last Vital Signs Pulse 92 06/20/24 12:04 BP 106/69 06/20/24 12:04 Pulse Ox 95 06/20/24 12:04 Oxygen Delivery Method Nasal Cannula 06/20/24 12:04 BMI result Body Mass Index 30.0 Const General: cooperative, no acute distress, well developed and well groomed Nutritional Appearance: well nourished and obese Orientation/consciousness: oriented to person, oriented to place and oriented to time Limitations: language barrier and other limitations HEENT Head: Yes normocephalic and Yes atraumatic Eyes General: appearance normal, both eyes and all related structures Pupils: Equal, round and reactive pupils present Neck Neck: Yes normal visual inspection and Yes no lymphadenopathy Thyroid: Thyroid normal Resp Other: On 2L oxygen tank n/c Effort & Inspection: normal respiratory effort and able to speak in complete sentences Auscultation: diminished lung sounds Cardio Rate: regular rate Rhythm: regular rhythm Heart sounds: Normal, physiologic split S2 sound present Peripheral pulses: radial pulses present and posterior tibial pulses present GI Inspection: No distended, No Abdominal panniculus present and Yes obesity Palpation (GI): Soft to palpation, nontender, no guarding, not rigid and No hepatosplenomegaly present Percussion: Yes normal to percussion Auscultation: normal bowel sounds Rectal Exam - Female: deferred Skin General skin exam: no rashes or lesions noted, turgor normal, skin not dry, no jaundice, No spider nevi and no striae Rashes: no rashes Nails: normal Neuro General: oriented to person, oriented to place and oriented to time Cranial nerves: Yes Equal, round and reactive pupils present and Yes Normal hearing present Speech: No Abnormal speech present Extrem General: Yes normal to inspection, No clubbing, No cyanosis and No edema Psych Appearance: grossly normal and well kempt Mental Status: mental status grossly normal Speech and movement: Normal speech and movement present Affect: normal affect Attitude: cooperative Thought process: Normal thought process present and not confabulating Thought content: Normal thought content present Insight: Limited insight present (Psych) Judgement: Limited judgement present (Psych) Assessment & Plan Assessment & Plan (1) GERD (gastroesophageal reflux disease): Code(s): K21.9 - Gastro-esophageal reflux disease without esophagitis Category: Medical (2) Alcoholic cirrhosis: Code(s): K70.30 - Alcoholic cirrhosis of liver without ascites Category: Medical (3) Opioid-induced constipation: Code(s): K59.03 - Drug induced constipation; T40.2X5A - Adverse effect of other opioids, initial encounter Category: Medical Plan Burmese #PASCUAL live She continues on her pantoprazole in the morning famotidine at night and simethicone. I also rx'd colace and senna for CIC as she is on methadone therapy which she feels is working well for her. She has been somewhat down recently r/t her health problems, but she has a counselor and it helps her to speak with them. She is still waiting for a ps ychiatrist appointment. We will try to get her US rescheduled as her PT-1 somehow got misscheduled and they failed to pick her up. We reviewed her other labs and she seems to be doing well in terms of the LAYTON. She continues to abstain from ETOH for 1.5 years now. ROV 6 mos. Medications: Refilled simethicone 180 mg PO BIDAC 60 caps 6RF famotidine 40 mg PO BEDTIME 30 tabs 6RF docusate sodium 100 mg PO BID PRN 60 caps 6RF Constipation sennosides (senna) 17.2 mg (2 x 8.6 mg) PO BEDTIME PRN 60 tabs 6RF constipation pantoprazole 40 mg PO DAILY 30 tabs 6RF Coding Level of Care Code Est Pt Level 3 (08250) Diagnoses GERD (gastroesophageal reflux disease) K21.9 Alcoholic cirrhosis K70.30 Opioid-induced constipation K59.03; T40.2X5A
[2024-06-20 12:04] VITALS: BP 106/69; PULSE 92; O2SAT 95
--- OUTSIDE RECORDS SUMMARY | 2024-06-20 14:22 | XMS_ITS | Encounter Summary ---
Author Organization [employer] Address [address] [place] [address] Care Team Providers Care Mortar Maker Name Role Phone Cathleen Sears MD Primary Care Provider Tad Baez PharmD Unavailable [phone] Bhumi [place] RN Unavailable [phone] Reason for Visit * Reason Comments Care Coordination PT1 Encounter Details Date Type Department Care Team (Latest Contact Info) Description 06/18/2024 Patient Outreach [facility] MEDICINE [address] [place], [place] [phone] Cathleen Sears MD [address] [place], [place] [phone] Care Coordination (PT1) Social History Tobacco Use Types Packs/Day Years Used Date Smoking Tobacco: Some Days Cigarettes 1.9 36.2 Started: 1988 Passive Smoke Exposure: Current Smokeless Tobacco: Never Comments:Patient reports sig nificant progress on tapering off over the last 6 months down to 2-3 cigarettes a day as of 01/18/2024 Alcohol Use Standard Drinks/Week Comments Never 0 (1 standard drink = 0.6 oz pur e alcohol) Alcohol Answer Date Recorded Frequency of Alcohol Consumption Not on file 02/02/2024 Average Number of Drinks Not on file 024 Frequency of Binge Drinking Not on file 09/2023 Score 0 02/02/2024 Depression Answer Date Recorded Patient Health Questionnaire-9 Score 2 07/22/2023 Patient Health Questionnaire-9 Score 2 07/22/2023 Last PHQ-9: Questionnaire Data Not on file 0 07/22/2023 Housing Stability Answer Date Recorded What is your housing situation today? I have farhad shelby 01/10/[address] you li ve. Do you have problems with any of the following? None of the above 01/10/2023 Food Insecurity Answer Date Recorded Within the past 12 months, y ou worried that your food would run out before you got money to buy more: Sometimes True 2023 Within the past 12 months,th e food you bought just didn't last and you didn't have enough money to get more: Sometimes True 11/04/2023 Transportation Answer Date Recorded In the past 12 months, has l ack of transportation kept you from medical appts, meetings, work or from getting things needed for daily living? Yes, it has kept me from medical appointments or getting medications. 11/04/2023 Utilities Answer Date Recorded In the past 12 months, has t he electric, gas, oil or water company threatened to shut off services in your home? No 01/10/2023 Depression Answer Date Recorded Patient Health Questionnaire-2 Score 1 07/22/2023 Internet Access Answer Date Recorded Internet Access Q1 Yes 11/25/2023 Internet Access Q2 Not on file 11/25/2023 Comments No Sex and Gender Information Value Date Recorded Sex Assigned at Female 01/25/2022 10:16 AM EDT Legal Sex Female 10:16 AM EDT Gender Identity Female 01/25/2022 10:16 AM EDT Sexual Orientation Straight 01/25/2022 10 :16 AM EDT documented as of this encounter Progress Notes * Nicolasa Herrera - 06/18/2024 12:42 PM EDT CHW Nicolasa Herrera submitted PT[facility] to [facility] and [facility] pulmonary once approved will schedule PT1 to upcoming appts once approved. documented in this encounter Plan of Treatment Upcoming Encounters Date Type Department Care Team (Late st Contact Info) Description 06/28/2024 10:30 AM EDT Nurse Only [facility] MEDICINE [address] [place] [address] documented as of this encounter Visit Diagnoses Not on filedocumented in this encounter Additional Health Concerns Assessment Noted Time PHQ-9 Depression Total Score: 2 07/22/19 10:34 AM EDT documented as of this encounter Care Teams Mortar Maker Relationship Specialty Start Date End Date Cathleen Sears MD [address] [place] [address] PCP - General Family Medicine 03/28/18 Tad Baez PharmD [address] [place] [address] Pharmacist Internal Medicine 03/16/24 Bhumi [place], BRIANNA [address] [place] [id number] Branch Operations SpecialistCaterpillar Tractor Operator 05/21/24 [facility] 05/04/17 documented as of this encounter
--- OUTSIDE RECORDS SUMMARY | 2024-06-20 14:22 | XMS_ITS | Encounter Summary ---
Author Organization [employer] Address [address] [facility] [address] [facility] [address] 7[address] [place] [address] Care Team Providers Care Ssrs Report Developer Name Role Phone Cathleen Sears MD Primary Care Provider [phone] Tad Baez PharmD Unavailable [phone] Bhumi [place] RN Unavailable [phone] Reason for Visit * Reason Comments Care Coordination PT1 Encounter Details Date Type Department Care Team (Latest Contact Info) Description 05/28/2024 Patient Outreach [facility] MEDICINE [address] [place], [place] [phone] Cathleen Sears MD [address] [place], [place] [phone] Care Coordination (PT1) Social History Tobacco Use [...] encounter Progress Notes * Nicolasa Herrera - 05/28/2024 1:05 PM EST CHW Nicolasa Herrera scheduled PT1 for patient for appt on 05/30/24 230pm at [facility]. CHW will remind patient of appt. documented in this encounter Plan of Treatment Upcoming Encounters Date Type Department Care Team (Late st Contact Info) Description 06/28/2024 10:30 AM EDT Nurse Only [facility] MEDICINE [address] [place] [address] documented as of this encounter Visit Diagnoses Not on filedocumented in this encounter Additional Health Concerns Assessment Noted Time PHQ-9 Depression Total Score: 2 07/22/19 10:34 AM EDT documented as of this encounter Care Teams Ssrs Report Developer Relationship Specialty Start Date End Date Cathleen Sears MD [address] [place] [address] PCP - General Family Medicine 03/28/18 Tad Baez PharmD [address] [place] [address] Pharmacist Internal Medicine 03/16/24 Bhumi [place], BRIANNA [address] [place] [address] Pie Filling MixerCheckman 05/21/24 [facility] 05/04/17 documented as of this encounter
--- OUTSIDE RECORDS SUMMARY | 2024-06-20 14:22 | XMS_ITS | Encounter Summary ---
Author Organization [employer] Address [address] [facility] 7t [place] [address] Care Team Providers Care Solutions Executive Cloud Sales Name Role Phone Cathleen Sears MD Primary Care Provider [phone] Tad Baez PharmD Unavailable [phone] Bhumi [place] RN Unavailable [phone] Reason for Visit * Reason Onset Date Comments Care Management 05/21/2024 C3- initial as sessment/ enrollment Encounter Details Date Type Department Care Team (Late st Contact Info) Description 05/21/2024 Telephone [facility] MEDICINE [address] [place], [place] [phone] Cathleen Sears MD [address] [place], [place] [phone] Care Management ([facility]- initial assessment/ enrollment) Social History Tobacco Use Types Packs/Day Years [...] AM EDT documented as of this encounter Miscellaneous Notes * Telephone Encounter - Bhumi [place] RN - 05/21/2024 11:00 AM EST WILMAR [place] RN, provided notification to PCP Dr. Sears of patient's enrollment into [facility]3 Complex Care Program. WILMAR [place] RN, completed care plan and sent to HIM to be scanned into the medical record. PCP notified and awaiting review from provider. WILMAR plan: - assist with scheduling appts with specialists and ensuring compliance to visits - provide patient with appt reminders and provide transportation to visits as needed - provide education and reinforce the importance of attending visits as scheduled and calling the office when unable to attend -provide education on disease processes and management of chronic conditions -provide resources based on positive SDOH needs * Telephone Encounter - Bhumi [place] RN - 05/21/2024 10:59 AM EST CM Bhumi [place] RN placed outbound call to patient for agreed upon time for initial assessment for enrollment into Adult Care Management Program. Patient's name, , and address were verified. Sandra is a 58 year old female with Hx of dependence on supplemental oxygen, COPD, chronic respiratory failure with hypoxia and hypercapnia, centribular emphysema, HTN, GERD, chronic liver disease, parotid mass, Hep C, urinary incontinence, popliteal mass, hypothyroidism, Zayra's thyroiditis, Type 2DM, erythrocytosis, alcohol use disoder, depression, opioid dependence on agonist therapy, tobacco dependence, history of alcohol use disorder, history of IV drug abuse, PTSD, hearing impairment, andpreauricular mass. Patient is being followed by Cardiology, Pulmonology, GI, ENT, Optometry, Orthopedic Surgery, Podiatry, and Audiology. Patient also reports being followed by Behavioral Health. Perpatient, seeing her psychiatrist on a monthly basis and seeing her therapist every 2 weeks. Patient states she is scheduled to see her therapist tomorrow and has a visit with psych scheduled on 07/10/24. Patient reports having a visiting nurse named Norberto who sees her daily. She states Norberto gives her methadone and also assesses her vitals/sugars. Patient states she has a new BASEBALL UMPIRE FOR [employer]ITTLE [employer]AGUE who will be starting work with her today. Per patient, will be receiving 3 hours of BASEBALL UMPIRE [employer]AGUE services per day. She states the BASEBALL UMPIRE FOR LITTLE LEAGUE will be helping her with cooking, cleaning, bathing/toileting as needed. She states she is able to do some activities on her own but needs assistance as she becomes SOB with most activities. Patient states she lives with her on a 3rd floor unit. Patient requesting assistance with moving to the 1st floor. States she is on supplemental oxygen and has difficulty with going up and downthe stairs on her own. Per patient, feels like she may fall and will have no one there to assist her. Per patient, this has been an ongoing situation and states that it affects her mental health. Patient states she has attempted to reach out to housing for help with this but has not been successful. Patient reports current use of a cane. She states she received a rollator but is not able to use it as she cannot go up and down the stairs with it. Patient states she does not have a specific diet.Per patient, tries to limit salt intake and tries to follow a low carb diet. Patient states her medications are in med boxes which are prepared by [facility] pharmacy. Per patient, takes all medications as prescribed. She states he also checks her med boxes and makes sure that they are up to date and thatpatient is not missing any doses. Patient reports SOB and fatigue. She states she saw her visiting nurse this morning who is aware. Per patient, is currently on 4L of O2. She states she increases theO2 to 6 units when she is active. Per patient, will be giving herself nebulizer treatment to see ifthat helps with symptoms. She agrees to seek medical attention if symptoms persist or worsen. Per patient, is scheduled to see [facility] Pulmonology on 06/07/24 at 1:40pm. She is requesting transportation to the visit. She is also requesting PT1 to the visit with PCP on 06/12/24 at 1:15pm. MILVIA Baldwin will assist with transportation. CM called [facility]. R/s US elastography to 06/19/24 at 8:30am (fasting- nothing to eat or drink for at least [address] neck rescheduled to 07/02/24 at 11:00am (nothing to eat/ drink 3 hours prior and patient must have a BUN/CREAT completed within 30days). CM will send message to PCP to order labs during the upcoming f/u appt. Patient is also scheduled to see [facility] on 06/20/24 at 12:00pm. CM will send all appt details to patient via mail. Care management program explained and contact information given. Patient verbalizes understanding, and able to repeat back to typewriter tester. A follow up call will be placed within 10 days, patient agrees with plan. documented in this encounter Plan of Treatment Upcoming Encounters Date Type Department Care Team ([facility] Contact Info) Description 06/28/2024 10:30 AM EDT Nurse Only [facility] MEDICINE [address] [place] [address] documented as of this encounter Visit Diagnoses Not on filedocumented in this encounter Additional Health Concerns Assessment Noted Time PHQ-9 Depression Total Score: 2 07/22/19 24 10:34 AM EDT documented as of this encounter Care Teams Solutions Executive Cloud Sales Relationship Specialty Start Date End Date Cathleen [place] MD [address] [place] [address] PCP - General Family Medicine 03/28/18 Tad Baez, Sanjiv [address] [place] [address] Pharmacist Internal Medicine 03/16/24 Bhumi [place], BRIANNA [address] [place] [address] Kiln PusherTender Labor 05/21/24 [facility] 05/04/17 documented as of this encounter
--- OUTSIDE RECORDS SUMMARY | 2024-06-20 14:22 | XMS_ITS | Encounter Summary ---
Author Organization [employer] Address [address] [place] [address] Care Team Providers Care Mattress Stuffer Name Role Phone Cathleen Sears MD Primary Care Provider [phone] Tad Baez PharmD Unavailable [phone] Bhumi [place] RN Unavailable [phone] Reason for Visit * Reason Onset Date Comments chart prep 06/07/2024 Encounter Details Date Type Department Care Team (Late st Contact Info) Description 06/07/2024 Telephone [facility] MEDICINE [address] [place], [place] [phone] Cathleen Sears MD [address] [place], [place] [phone] chart prep Social History Tobacco Use Types Packs/Day Years [...] encounter Miscellaneous Notes * Telephone Encounter - Marie [place] MA - 06/07/2024 3:41 PM EDT ..chart Prep Labs: not done 03/26/24 Images: not done ct no show r/s 07/02/24 Vaccines due: Updated Referrals: Completed Ultrasound appointment 06/19/24 Gastro appointment 06/20/24 Screenings: Eye Exam Overdue care gaps: A1C, Glucose, and disability screening documented in this encounter Plan of Treatment Upcoming Encounters Date Type Department Care Team (Late st Contact Info) Description 06/28/2024 10:30 AM EDT Nurse Only [facility] MEDICINE [address] [place] [address] documented as of this encounter Visit Diagnoses Not on filedocumented in this encounter Additional Health Concerns Assessment Noted Time PHQ-9 Depression Total Score: 2 07/22/19 24 10:34 AM EDT documented as of this encounter Care Teams Mattress Stuffer Relationship Specialty Start Date End Date Cathleen Sears MD [address] [place] [address] PCP - General Family Medicine 03/28/18 Tad Baez, LaurenD [address] [place] [address] Pharmacist Internal Medicine 03/16/24 Bhumi Mnoroe, BRIANNA [address] [place] [address] Technical Service RepresentativeHypertrichologist 05/21/24 [facility] 05/04/17 documented as of this encounter
--- OUTSIDE RECORDS SUMMARY | 2024-06-20 14:22 | XMS_ITS | Encounter Summary ---
Author Organization [facility] Address [address] [place] [address] Care Team Providers Care Business Machine Mechanic Name Role Phone Cathleen Sears MD Primary Care Provider [phone] Ivett Smith RN Unavailable [phone] Tad Baez PharmD Unavailable [phone] Bhumi [place] RN Unavailable [phone] Encounter Details Date Type Department Care Team (Late st Contact Info) Description 04/29/2022 Orders Only [facility] MEDICINE [address] [place] [address] Cathleen Sears MD [address] [place], [place] [phone] Dental decay (Primary Dx) Social History Tobacco Use Types Packs/Day Years Used Date Smoking Tobacco: Never Assessed Comments Unknown Sex and Gender Information Value Date Recorded Sex Assigned at Female 01/25/2022 10:16 AM EDT Legal Sex Female 10:16 AM EDT Gender Identity Female 01/25/2022 10:16 AM EDT Sexual Orientation Straight 01/25/2022 10 :16 AM EDT COVID-19 Exposure Response Date Recorded In the last 10 days, have yo u been in contact with someone who was confirmed or suspected to have Coronavirus/COVID-19? No / Unsure 04/29/2022 10:18 AM EST documented as of this encounter Plan of Treatment Upcoming Encounters Date Type Department Care Team (Late st Contact Info) Description 06/28/2024 10:30 AM EDT Nurse Only [facility] MEDICINE [address] [place] [address] documented as of this encounter Visit Diagnoses Diagnosis Dental decay- Primary Unspecified dental caries documented in this encounter Care Teams Business Machine Mechanic Relationship Specialty Start Date End Date Cathleen Sears MD [address] [place] [address] PCP - General Family Medicine 03/28/18 Ivett Smith, BRIANNA [address] [place] [address] Registered Nurse Case Management 12/30/22 01/24/24 Tad Baez PharmD [address] [place] [address] Pharmacist Internal Medicine 03/16/24 Bhumi [place] RN [address] [place] [address] Roof ForemanSupervisor Instrument Repair 05/21/24 [facility] 05/04/17 documented as of this encounter
--- OUTSIDE RECORDS SUMMARY | 2024-06-20 14:22 | XMS_ITS | Encounter Summary ---
Author Organization [employer] Address [address] [facility] 7t [place] [address] Care Team Providers Care Crate Tier Name Role Phone Cathleen Sears MD Primary Care Provider [phone] Tad Baez PharmD Unavailable [phone] Bhumi [place] RN Unavailable [phone] Reason for Visit * Reason Onset Date Comments Care Management 06/06/2024 C3CM- f/u call # 2 lvm Encounter Details Date Type Department Care Team (Late st Contact Info) Description 06/06/2024 Telephone [facility] MEDICINE [address] [place], [place] [phone] Cathleen Sears MD [address] [place], [place] [phone] Care Management (C3CM- f/u call #2 lvm) Social History Tobacco Use Types Packs/Day Years [...] encounter Miscellaneous Notes * Telephone Encounter - Buhmi [place] RN - 06/06/2024 9:18 AM EDT CM Bhumi [place] RN placed outbound call to patient for follow up call. No answer at this time. LVM introducing herself from [facility] CM Department. Requested call back. CM reinforced direct contact information for any additional questions or concerns. Education provided on Walk-In Urgent Care located in Lobby of [facility]. Patient provided with after-hours line for [facility], , which offer night time triage service and option to transfer to construction sales manager provider if needed. CM also reminded patient of her scheduled visit with [facility] Pulmonology on 06/07/24 at 1:40pm. CM advised that she please return call to with any questions or concerns. CM will attempt another follow up call within 10 days. Please inform patient of her scheduled visit with Pulmonology when call is returned. Thank you. documented in this encounter Plan of Treatment Upcoming Encounters Date Type Department Care Team (Late st Contact Info) Description 06/28/2024 10:30 AM EDT Nurse Only [facility] MEDICINE [address] [place] [address] documented as of this encounter Visit Diagnoses Not on filedocumented in this encounter Additional Health Concerns Assessment Noted Time PHQ-9 Depression Total Score: 2 07/22/19 10:34 AM EDT documented as of this encounter Care Teams Crate Tier Relationship Specialty Start Date End Date Cathleen [place] MD [address] [place] [address] PCP - General Family Medicine 03/28/18 Tad Baez, PharmD [address] [place] [address] Pharmacist Internal Medicine 03/16/24 Bhumi [place] RN [address] [place] [address] Home Health CnaSenior Wind Energy Consultant 05/21/24 [facility] 05/04/17 documented as of this encounter
--- OUTSIDE RECORDS SUMMARY | 2024-06-20 14:22 | XMS_ITS | Encounter Summary ---
Author Organization [employer] Address [address] 7t [place] [address] Care Team Providers Care Commissioner Of Relocation Services Name Role Phone Cathleen Sears MD Primary Care Provider [phone] Tad Baez PharmD Unavailable [phone] Bhumi [place] RN Unavailable [phone] Reason for Visit * Reason Onset Date Comments [employer] 05/28/2024 G love, exam vnyl lg Encounter Details Date Type Department Care Team (Late st Contact Info) Description 05/28/2024 Telephone [facility] MEDICINE [address] [place], [place] [phone] Cathleen Sears MD [address] [place], [place] [phone] [employer] (Glove, exam vnyl lg) Social History Tobacco Use Types Packs/Day Years [...] encounter Miscellaneous Notes * Telephone Encounter - René Ramirez MA - 05/29/2024 10:22 AM EST Form has been signed by PCP and faxed to [employer]. Form is sent in for scanning. * Telephone Encounter - René Ramirez MA - 05/28/2024 11:20 AM EST Received medical necessity form from [employer] for Glove, exam vnyl lg. Form has been filled out and placed on PCP's desk for signature. documented in this encounter Plan of Treatment Upcoming Encounters Date Type Department Care Team (Late st Contact Info) Description 06/28/2024 10:30 AM EDT Nurse Only [facility] MEDICINE [address] [place] [address] documented as of this encounter Visit Diagnoses Not on filedocumented in this encounter Additional Health Concerns Assessment Noted Time PHQ-9 Depression Total Score: 2 07/22/19 10:34 AM EDT documented as of this encounter Care Teams Commissioner Of Relocation Services Relationship Specialty Start Date End Date Cathleen Sears MD [address] [place] [address] PCP - General Family Medicine 03/28/18 Tad Baez PharmD [address] [place] [address] Pharmacist Internal Medicine 03/16/24 Bhumi [place], BRIANNA [address] [place] [phone] Airplane CaptainGreen Building Materials Distributor 05/21/24 [facility] 05/04/17 documented as of this encounter
--- OUTSIDE RECORDS SUMMARY | 2024-06-20 14:22 | XMS_ITS | Encounter Summary ---
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 COPD (chronic obstructive pulmonary disease) ([facility]) - Lab Coordinator: Ashly, last seen on 06/07/24 - Severe exacerbation 1-2 times per month for the last 6 months - Most recent hospitalization for severe COPD exacerbation in Mar 2024. Treated with IV steroid, antibiotic, and BiPAP. - Most recent COPD exacerbation on 06/07/24 when patient went to see Dr. Hart. Treated with azithromycin and prednisone x 5 days. - Last intubation in September 2023 (2 times in last 12 mo) - Continue Fluticasone-Salmeterol (Wixela) 500-50mcg 1 puff inhaled twice daily - Continue umeclidinium (Incruse) - Continue albuterol HFA prn. - Continue DuoNeb for neb prn Tx. - Continue working on smoking cessation. - Continue supplemental oxygen 4L-6L; recommended to discuss with corporate licensed broker regarding to oxygenconcentrator. - Anticipate to start BiPAP 21/7 mmHg - Strongly encouraged to get COVID vaccine - Keep appt with corporate licensed broker and resume pulmonary rehab. -Treatment Hx: Budesonide - Formoterol (Symbicort) was changed to Wixela in Jan 2023. Plan to try fluticasone / umeclidinium / vilanterol (Trelegy) per corporate licensed broker. * Assessment & Plan Note - Laura Morgan MA - 06/12/2024 8:59 AM EDTAssociated Problem(s): Dependence on supplemental oxygen -Continuous supplemental oxygen 4-6 L/m -Supplier: [employer] -Check if she can get a portable oxygen concentrator because her current portable oxygen does not last very long and it is heavy -Avoid smoking around oxygen documented in this encounter Plan of Treatment Upcoming Encounters Date Type Department Care Team (Late st Contact Info) Description 06/28/2024 10:30 AM EDT Nurse Only [facility] [address] [place] [address] documented as of this encounter Procedures Procedure Name Priority Date/Time Associated Diagnosis Comments POCT GLYCOSYLATED HEMOGLOBIN (HGB A1C) Routine 06/12/2024 9:39 AM EDT Type 2 diabetes mellitus without complication, without long-term current use of insulin ([facility]) POCT GLUCOSE Routine 06/12/2024 9:38 AM EDT Type 2 diabetes mellitus without complication, without long-term current use of insulin ([facility]) documented in this encounter Results * (ABNORMAL) POCT glycosylated hemoglobin (Hgb A1c) (06/12/2024 9:39 AM EDT) Hemoglobin A1C 6.8(A) 4.0 - 6.0 % QC Media Lot # [id number] Lot# Expiration Date ,600 Blood Capillary blood specimen / Unknown 06/12/2024 9:39 AM EDT us Cathleen Sears MD POINT OF CARE TEST ENTER/EDIT OR DERABLES Final Result * (ABNORMAL) POCT glucose manually resulted (06/12/2024 9:38 AM EDT) Glucose Blood, POC 204(A) 60 - 200 mg/dL QC Media Lot # [id number] Lot# Expiration Date 201,477 Blood Capillary blood specimen / Unknown 06/12/2024 9:38 AM EDT us Cathleen Sears MD POINT OF CARE TEST ENTER/EDIT OR DERABLES Final Result documented in this encounter Visit Diagnoses Diagnosis Chronic obstructive pulmonary disease, unspecified COPD type (CMS/HCC)- Primary Dependence on supplemental oxygen Chronic respiratory failure with hypoxia and hypercapnia (CMS/HCC) Centrilobular emphysema (CMS/HCC) Primary hypertension Unspecified essential hypertension Metabolic dysfunction-associated steatotic liver disease (MASLD) 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 Type 2 diabetes mellitus without complication, without long-term current use of insulin (CMS/HCC) Tobacco dependence Tobacco use disorder Dyslipidemia Other and unspecified hyperlipidemia Major depressive disorder in remission, unspecified whether recurrent (CMS/HCC) Opioid dependence on agonist therapy (CMS/HCC) Post-traumatic stress disorder Posttraumatic stress disorder Chronic liver disease Unspecified chronic liver disease without mention of alcohol Chronic neck pain Cervicalgia Chronic low back pain, unspecified back pain laterality, unspecified whether sciatica present Skin lesions documented in this encounter Additional Health Concerns Assessment Noted Time PHQ-9 Depression Total Score: 2 04/26/20 24 10:34 AM EDT documented as of this encounter Care Teams Diesel Retrofit Designer Relationship Specialty Start Date End Date Cathleen Sears MD [address] [place] [address] PCP - General Family Medicine 03/28/18 Tad Baez PharmD [address] [place] [address] Pharmacist Internal Medicine 03/16/24 Bhumi Monroe, BRIANNA [address] [place] [id number] Ballpoint Pens AssemblerEmbroidery Operator 05/21/24 [facility] 05/04/17 documented as of this encounter
--- OUTSIDE RECORDS SUMMARY | 2024-06-20 14:22 | XMS_ITS | Encounter Summary ---
Author Organization [employer] Address [address] [place] [address] Care Team Providers Care Valve Technician Name Role Phone Cathleen Sears MD Primary Care Provider [phone] Tad Baez PharmD Unavailable [phone] Bhumi Monroe RN Unavailable [phone] Reason for Visit * Reason Comments Care Coordination Appt reminder Encounter Details Date Type Department Care Team (Latest Contact Info) Description 06/11/2024 Patient Outreach [facility] [address] [place], [place] [phone] Cathleen Sears MD [address] [place], [place] [phone] Care Coordination (Appt reminder) Social History Tobacco Use Types Packs/Day Years [...] encounter Progress Notes * Nicolasa Herrera - 06/11/2024 9:53 AM EDT CHW Nicolasa Herrera placed outbound call to patient introducing herself from [facility] CM Department, in regard to remind patient of appt for 06/12/24 @ 115PM with PCP at the [facility]. Patient's name and was confirmed. Patient is aware and confirmed will be available and has no barriers on attending this appointment. Patient verbalized understanding and agreed with plan. PT1 will nut picker patient at 1245pm. documented in this encounter Plan of Treatment Upcoming Encounters Date Type Department Care Team (Late st Contact Info) Description 06/28/2024 10:30 AM EDT Nurse Only [facility] [address] [place] [address] documented as of this encounter Visit Diagnoses Not on filedocumented in this encounter Additional Health Concerns Assessment Noted Time PHQ-9 Depression Total Score: 2 07/22/19 10:34 AM EDT documented as of this encounter Care Teams Valve Technician Relationship Specialty Start Date End Date Cathleen Sears MD [address] [place] [address] PCP - General Family Medicine 03/28/18 Tad Baez PharmD [address] [place] [address] Pharmacist Internal Medicine 03/16/24 Bhumi Monroe, BRIANNA [address] [place] [id number] Recruitment ConsultantLogistics Analyst 05/21/24 [facility] 05/04/17 documented as of this encounter
--- OUTSIDE RECORDS SUMMARY | 2024-06-20 14:22 | XMS_ITS | Encounter Summary ---
Author Organization [employer] Address [address] [place] [address] Care Team Providers Care Cigarette Seller Name Role Phone Cathleen Sears MD Primary Care Provider [phone] Tad Baez PharmD Unavailable [phone] Bhumi Monroe RN Unavailable [phone] Reason for Visit * Reason Onset Date Comments Care Management 06/18/2024 C3CM- f/u call Encounter Details Date Type Department Care Team (Late st Contact Info) Description 06/18/2024 Telephone [facility] [address] [place], [place] [phone] Cathleen Sears MD [address] [place] [address] Care Management (C3CM- f/u call) Social History Tobacco Use Types Packs/Day Years [...] Telephone Encounter - Bhumi Monroe RN - 06/20/2024 8:46 AM EDT FYI: Patient no showed US elastography on 06/19/24. Patient was contacted with appt reminder and PT1was set for the visit. Patient also no showed the US on 03/13/24 and cancelled the visit on 02/27/24. * Telephone Encounter - Bhumi Monroe RN - 06/18/2024 12:47 PM EDT WILMAR Monroe RN and CHW Nicolasa Herrera placed outbound call to patient. Patient's name, and address confirmed. Patient c/o intermittent episodes of left sided neck pain. Per patient, pain has been present for several months now. She states the pain sometimes radiates down to her left arm/hand. Also reports numbness and tingling. Per patient, took two motrin earlier today which helped alleviate the pain. She states the pain is not present now. CM reminded patient that she is scheduled to complete the CT head/ neck on 07/02/24 at 11:00am. Advised PT1 has been scheduled for the visit. Advised that she please contact the office if symptoms persist or worsen. She agrees. Per patient, visit with Pulmonology went well. She states she completed the azythromycin and the prednisone. Per patient, feels like the medications had no effect. She states she still feels SOB with activity. She also reports cough with productive, yellow phlegm. Per patient, negative for fever. She reports being on 6L of oxygen with activity. CM will f/u with the office to schedule an appt and will update patient. She agrees. WILMAR informed patient that [facility] was contacted today. Advised patient that she is scheduled for O2 eval on 07/03/24 at 3:00pm. She is also scheduled to be seen on 07/04/24 at 10:30am for f/u [facility]. Nicolasa will assist with scheduling PT1. Patient is also scheduled PFT on 09/14 at 8:00am and Pulmonology f/u on 10/17/24 at 1:00pm. Per patient, has not been started on the BIPAP. CM will f/u with [facility] and will also inquire on the portable oxygen concentrator. Patient is aware of her upcoming US elastography on 06/19/24 at 8:30am and her visit with GI on 06/20/24 12:00pm. PT1 has been set for these visits and patient is aware. CM reminded patient that she is to be fasting8 hours prior to the US tomorrow. She verbalizes understanding. Patient states she is receiving a call now from [facility]. She is scheduled to be seen on 07/12/24 at 1:45pm at [facility]. Patient also aware of RN visit on 06/28/24 for the Shingrix vaccine. PT1 set. No further questions or concerns. CM reinforced direct contact information or CHW for any additional questions or concerns. Education provided on [facility] located in [facility]. Patient provided with after-hours line for [facility], , which offer night time triage service and option to transfer to sap payroll consultant provider if needed. Patient verbalizes understanding, and able to repeat back to account underwriter. A follow up call will be placed within 10 days, patientagrees with plan. CM called Pulmonology. Informed the provider does not have any immediate appts available. A messagewill be sent to the triage team to contact CM. CM called patient and informed her of this. She verbalizes understanding. documented in this encounter Plan of Treatment Upcoming Encounters Date Type Department Care Team (Late st Contact Info) Description 06/28/2024 10:30 AM EDT Nurse Only [facility] [address] [place] [address] documented as of this encounter Visit Diagnoses Not on filedocumented in this encounter Additional Health Concerns Assessment Noted Time PHQ-9 Depression Total Score: 2 07/22/19 10:34 AM EDT documented as of this encounter Care Teams Cigarette Seller Relationship Specialty Start Date End Date Cathleen Sears MD [address] [place] [address] PCP - General Family Medicine 03/28/18 Tad Baez, LaurenD [address] [place] [address] Pharmacist Internal Medicine 03/16/24 Bhumi Monroe, RN [address] [place] [phone] Forensic InvestigatorTank Car Mechanic 05/21/24 [facility] 05/04/17 documented as of this encounter
--- OUTSIDE RECORDS SUMMARY | 2024-06-20 14:22 | XMS_ITS | Encounter Summary ---
Author Organization [employer] Address [address] [place] [address] Care Team Providers Care Reading Aide Name Role Phone Cathleen Sears MD Primary Care Provider [phone] Tad Baez PharmD Unavailable [phone] Bhumi Monroe RN Unavailable [phone] Reason for Visit * Reason Comments Care Coordination PT1 Encounter Details Date Type Department Care Team (Latest Contact Info) Description 05/21/2024 Patient Outreach [facility] [address] [place], [place] [phone] Cathleen Sears MD [address] [place], [place] [phone] Care Coordination (PT1) Social History Tobacco Use [...] AM EDT documented as of this encounter Plan of Treatment Upcoming Encounters Date Type Department Care Team (Late st Contact Info) Description 06/28/2024 10:30 AM EDT Nurse Only [facility] [address] [place] [address] documented as of this encounter Visit Diagnoses Not on filedocumented in this encounter Additional Health Concerns Assessment Noted Time PHQ-9 Depression Total Score: 2 07/22/19 24 10:34 AM EDT documented as of this encounter Care Teams Reading Aide Relationship Specialty Start Date End Date Cathleen Sears MD [address] [place] [address] PCP - General Family Medicine 03/28/18 Tad Baez, PharmD [address] [place] [address] Pharmacist Internal Medicine 03/16/24 Bhumi Monroe, BRIANNA [address] [place] [address] Marine Propulsion TechnicianTraveling Phlebotomist 05/21/24 [facility] 05/04/17 documented as of this encounter
--- OUTSIDE RECORDS SUMMARY | 2024-06-20 14:22 | XMS_ITS | Clinical Summary ---
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 recommended to discuss with production control specialist regarding to oxygen concentrator. - Strongly encouraged to get COVID vaccine - Keep appt with production control specialist and resume pulmonary rehab. -Treatment Hx: Budesonide - Formoterol (Symbicort) was changed to Wixela in Jan 2023. Plan to try Trelegy. -Since she seldom sees her [facility] production control specialist, and she is well-known to [facility] production control specialist / critical medicine teams, we discussed about transferring care to [facility] pulmonology. Patient agreed with the plan initially, but decided to stay with [facility] production control specialist. Assessment & Plan (02/06/2024 5:33 AM EST): - Manager Market: Ashly, last seen on 11/18/23 - Severe exacerbation 1-2 times per month for the last 6 months - Most recent exacerbation in Dec 2023, required hospitalization. Treated with IV steroid, antibiotic, and BiPAP. -Mild exacerbation today, will treat with short course of prednisone due to her weight gain and leg edema, patient was advised to monitor BP and BG while on prednisone - Last intubation in September 2023 (2 times in last 6 mo) - Continue Fluticasone-Salmeterol (Wixela) 500-50mcg 1 puff inhaled twice daily - Continue umeclidinium (Incruse) - Continue albuterol HFA prn. - Continue DuoNeb for neb prn Tx. - Continue workin on smoking cessation. - Continue supplemental oxygen 4L-6L; recommended to discuss with production control specialist regarding to oxygen concentrator. - Strongly encouraged to get COVID vaccine - Keep appt with production control specialist and resume pulmonary rehab. -Treatment Hx: Budesonide - Formoterol (Symbicort) was changed to Wixela in Jan 2023. Plan to try Trelegy. -Since she seldom sees her [facility] production control specialist, and she is well-known to [facility] production control specialist / critical medicine teams, we discussed about transferring care to [facility] pulmonology. Patient agreed with the plan initially, but decided to stay with [facility] production control specialist. Assessment & Plan (11/29/2023 11:51 AM EDT): - Manager Market: Ashly, last seen on 11/18/23 - Severe exacerbation monthly for the last 6 months - Most recent exacerbation in September 2023, required hospitalization. Treated with IV steroid, antibiotic, and BiPAP. -Mild exacerbation today, will treat with short course of prednisone due to her weight gain and leg edema, patient was advised to monitor BP and BG while on prednisone - Last intubation in June 2023 - Continue Fluticasone-Salmeterol (Wixela) 500-50mcg 1 puff inhaled twice daily - Continue umeclidinium (Incruse) - Continue albuterol HFA prn. - Continue DuoNeb for neb prn Tx. - Continue workin on smoking cessation. - Continue supplemental oxygen 4L-6L; recommended to discuss with production control specialist regarding to oxygen concentrator. - Strongly encouraged to get COVID vaccine - Keep appt with production control specialist -Treatment Hx: Budesonide - Formoterol (Symbicort) was changed to Wixela in Jan 2023. Plan to try Trelegy. Assessment & Plan (10/11/2023 11:41 AM EDT): - Manager Market: Ashly, last seen on 05/31/23 - Severe exacerbation monthly for the last 6 months - Most recent exacerbation in September 2023, required hospitalization. Treated with IV steroid, antibiotic, and BiPAP. - Last intubation in June 2023 - Continue Fluticasone-Salmeterol (Wixela) 500-50mcg 1 puff inhaled twice daily - Continue umeclidinium (Incruse) - Continue albuterol HFA prn. - Continue DuoNeb for neb prn Tx. - Continue workin on smoking cessation. - Continue supplemental oxygen 4L-6L; recommended to discuss with production control specialist regarding to oxygen concentrator. - Strongly encouraged to get COVID vaccine - Keep appt with production control specialist -Treatment Hx: Budesonide - Formoterol (Symbicort) was changed to Wixela in Jan 2023. Plan to try Trelegy. Assessment & Plan (10/04/2023 5:20 PM EDT): - Manager Market: Ashly, last seen on 05/31/23 - Severe exacerbation monthly for the last 6 months - Most recent exacerbation in August 2023, required hospitalization. Treated with IV steroid, antibiotic, and BiPAP. - Last intubation in June 2023 - Continue Fluticasone-Salmeterol (Wixela) 500-50mcg 1 puff inhaled twice daily - Continue umeclidinium (Incruse) - Continue albuterol HFA prn. - Continue DuoNeb for neb prn Tx. - Continue workin on smoking cessation. - Continue supplemental oxygen 4L-6L; recommended to discuss with production control specialist regarding to oxygen concentrator. - Strongly encouraged to get COVID vaccine - Keep appt with production control specialist -Treatment Hx: Budesonide - Formoterol (Symbicort) was changed to Wixela in Jan 2023. Plan to try Trelegy. Assessment & Plan (08/23/2023 3:08 PM EDT): - Manager Market: Ashly, last seen on 05/31/23 - Severe exacerbation 4-5 per year - Most recent exacerbation in June 2023, required hospitalization and intubation. Treated with IV steroid, antibiotic, and BiPAP. - Continue Fluticasone-Salmeterol (Wixela) 500-50mcg 1 puff inhaled twice daily - Continue umeclidinium (Incruse) - Continue albuterol HFA prn. - Continue DuoNeb for neb prn Tx. - Continue workin on smoking cessation. - Continue supplemental oxygen 4L-6L; recommended to discuss with production control specialist regarding to oxygen concentrator. - Strongly encouraged to get COVID vaccine - Keep appt with production control specialist -Treatment Hx: Budesonide - Formoterol (Symbicort) was changed to Wixela in Jan 2023. Plan to try Trelegy. Assessment & Plan (05/31/2023 4:31 PM EST): - Manager Market: Ashly, last seen on 01/28/23 - Severe exacerbation 4-5 per year - Most recent exacerbation in March 2023, required hospitalization. Treated with IV steroid and BiPAP. Possible aspiration pneumonia and received azithromycin and ceftriaxone. Discharged with prednisone and levofloxacin. . - Exacerbation in Dec 2022. Outpatient management. Rx prednisone taper and azithromycin in Nov 2022, and prednisone and levofloxacin 2 weeks later. CXR negative in Nov 2022. - Continue Fluticasone-Salmeterol (Wixela) 500-50mcg 1 puff inhaled twice daily - Continue albuterol HFA prn. - Continue DuoNeb for neb prn Tx. - Continue workin on smoking cessation. - Continue supplemental oxygen 4L-6L; recommended to discuss with production control specialist regarding to oxygen concentrator. - Strongly encouraged to get COVID vaccine - Keep appt with production control specialist -Treatment Hx: Budesonide - Formoterol (Symbicort) was changed to Wixela in Jan 2023. Plan to try Trelegy. Assessment & Plan (05/08/2023 6:17 AM EST): - Manager Market: Ashly, last seen on 01/28/23 - Severe exacerbation 4-5 per year - Most recent exacerbation in March 2023, required hospitalization. Treated with IV steroid and BiPAP. Possible aspiration pneumonia and received azithromycin and ceftriaxone. Discharged with prednisone and levofloxacin. . - Exacerbation in Dec 2022. Outpatient management. Rx prednisone taper and azithromycin in Nov 2022, and prednisone and levofloxacin 2 weeks later. CXR negative in Nov 2022. - Continue Fluticasone-Salmeterol (Wixela)??500-50mcg 1 puff inhaled twice daily - Continue albuterol HFA prn. - Continue DuoNeb for neb prn Tx. - Continue workin on smoking cessation. - Continue supplemental oxygen 4L-6L - Strongly encouraged to get COVID vaccine - Keep appt with production control specialist -Treatment Hx: Budesonide - Formoterol (Symbicort) was changed to Wixela in Jan 2023. Plan to try Trelegy. Assessment & Plan (03/01/2023 6:49 AM EST): - Manager Market: Ashly, last seen on 01/28/23 - Severe exacerbation 3-4 per year - Most recent exacerbation in Dec 2022., Rx prednisone taper and azithromycin in Nov 2022, and prednisone and levofloxacin 2 weeks later. CXR negative in Nov 2022. - Last hospitalization for COPD exacerbation in Feb 2020, Rx ceftriaxone, steroid, discharged with prednisone burst. - Hospitalization in Mar 2019. Dx COPD exacerbation. Rx prednisone and doxycycline - Exacerbation in Jan 2019, hospitalized 02/05/19- 02/07/19, Dx COPD exacerbation, CAP, Tx azithromycin - [facility] hospitalization 01/11/19-01/17/19, b/l lower lobe pneumonia, L > R, treated with IV steroid, levofloxacin, and bronchodilators Tx. Discharged with prednisone, benzonatate, levofloxacin. - Continue Fluticasone-Salmeterol (Wixela)??500-50mcg 1 puff inhaled twice daily - Continue albuterol HFA prn. - Continue DuoNeb for neb prn Tx. - Continue workin on smoking cessation. - Continue supplemental oxygen 4L-6L - Strongly encouraged to get COVID vaccine - Keep appt with production control specialist -Treatment Hx: Budesonide - Formoterol (Symbicort) was changed to Wixela in Jan 2023. Plan to try Trelegy. Assessment & Plan (12/24/2022 3:40 PM EDT): - Manager Market: Ashly, last seen on 04/15/22 - Severe exacerbation 1-2 per year, none in [id number] - Most recent exacerbation today 12/22/22, Rx prednisone taper and azithromycin - Last hospitalization for COPD exacerbation in Feb 2020, Rx ceftriaxone, steroid, discharged with prednisone burst. - Hospitalization in Mar 2019. Dx COPD exacerbation. Rx prednisone and doxycycline - Exacerbation in Jan 2019, hospitalized 02/05/19- 02/07/19, Dx COPD exacerbation, CAP, Tx azithromycin - [facility] hospitalization 01/11/19-01/17/19, b/l lower lobe pneumonia, L > R, treated with IV steroid, levofloxacin, and bronchodilators Tx. Discharged with prednisone, benzonatate, levofloxacin. - Continue Symbicort and Incruse as maintenance. Plan to switch to Trelegy per production control specialist - Continue albuterol HFA prn. - Continue DuoNeb for neb prn Tx. - Continue workin on smoking cessation. - Continue supplemental oxygen 4L - Keep appt with production control specialist - Strongly encouraged to get COVID vaccine Assessment & Plan (12/05/2022 5:51 AM EDT): - Manager Market: Ashly, last seen on 04/15/22 - Severe exacerbation 1-2 per year, none in [id number] - Most recent exacerbation in Feb 2020, required hospitalization at [facility], Rx ceftriaxone, steroid, discharged with prednisone burst. - Hospitalization in Mar 2019. Dx COPD exacerbation. Rx prednisone and doxycycline - Exacerbation in Jan 2019, hospitalized 02/05/19- 02/07/19, Dx COPD exacerbation, CAP, Tx azithromycin - [facility] hospitalization 01/11/19-01/17/19, b/l lower lobe pneumonia, L > R, treated with IV steroid, levofloxacin, and bronchodilators Tx. Discharged with prednisone, benzonatate, levofloxacin. - Continue Symbicort and Incruse as maintenance. Plan to switch to Trelegy per production control specialist - Continue albuterol HFA prn. - Continue DuoNeb for neb prn Tx. - Continue workin on smoking cessation. - Continue supplemental oxygen 4L - Keep appt with production control specialist - Strongly encouraged to get COVID vaccine Assessment & Plan (05/08/2022 5:47 PM EST): - Manager Market: Ashly, last seen on 04/15/22 - Severe exacerbation 1-2 per year, none in [id number] - Most recent exacerbation in Feb 2020, required hospitalization at [facility], Rx ceftriaxone, steroid, discharged with prednisone burst. - Hospitalization in Mar 2019. Dx COPD exacerbation. Rx prednisone and doxycycline - Exacerbation in Jan 2019, hospitalized 02/05/19- 02/07/19, Dx COPD exacerbation, CAP, Tx azithromycin - [facility] hospitalization 01/11/19-01/17/19, b/l lower lobe pneumonia, L > R, treated with IV steroid, levofloxacin, and bronchodilators Tx. Discharged with prednisone, benzonatate, levofloxacin. - Continue Symbicort and Incruse as maintenance. Plan to switch to Trelegy per production control specialist - Continue albuterol HFA prn. - Continue DuoNeb for neb prn Tx. - Continue workin on smoking cessation. - Continue supplemental oxygen 4L - Keep appt with production control specialist - Strongly encouraged to get COVID vaccine Assessment & Plan (04/12/2022 7:28 PM EST): - Manager Market: Ashly - Severe exacerbation 1-2 per year, none in [id number] - Most recent exacerbation in Feb 2020, required hospitalization at [facility], Rx ceftriaxone, steroid, discharged with prednisone burst. - Hospitalization in Mar 2019. Dx COPD exacerbation. Rx prednisone and doxycycline - Exacerbation in Jan 2019, hospitalized 02/05/19- 02/07/19, Dx COPD exacerbation, CAP, Tx azithromycin - [facility] hospitalization 01/11/19-01/17/19, b/l lower lobe pneumonia, L > R, treated with IV steroid, levofloxacin, and bronchodilators Tx. Discharged with prednisone, benzonatate, levofloxacin. - Continue Breo and Spiriva as maintenance. Plan to switch to Trelegy per production control specialist - Continue albuterol HFA prn. - Continue DuoNeb for neb prn Tx. - Continue workin on smoking cessation. - Continue supplemental oxygen 4L - Keep appt with production control specialist in October. - Strongly encouraged to get COVID vaccine Diabetes mellitus, type 2 04/12/2022 Assessment & Plan (06/16/2024 6:04 AM EDT): - A1C 7.0% today, 7.0% on 03/26/24 - in a setting of frequent steroid use for COPD exacerbation - continue working on lifestyle modifications - continue SMBG - continue metformin ER 500 mg twice daily - last eye exam: referred to [facility] eye care - last comprehensive foot exam: 10/04/23, left 2nd toe fracture after a fall - last lipid profile: 11/08/23, TC 235; TG 551; HDL 35; LDL TNP - last microalbumin test: 11/08/23, UACR: TNP Assessment & Plan (04/30/2024 9:07 AM EST): - A1C 7.0% today, 6.7% on 12/21/23 - in a setting of frequent steroid use for COPD exacerbation - continue working on lifestyle modifications - continue SMBG - increase metformin ER 500 mg twice daily - last eye exam: referred to [facility] eye care - last comprehensive foot exam: 10/04/23, left 2nd toe fracture after a fall - last lipid profile: 11/08/23, TC 235; TG 551; HDL 35; LDL TNP - last microalbumin test: 11/08/23, UACR: TNP Assessment & Plan (03/26/2024 5:04 PM EST): - A1C 7.0% today, 6.7% on 12/21/23 - in a setting of frequent steroid use for COPD exacerbation - continue working on lifestyle modifications - continue SMBG - increase metformin ER 500 mg twice daily - last eye exam: referred to [facility] eye care - last comprehensive foot exam: 10/04/23, left 2nd toe fracture after a fall - last lipid profile: 11/08/23, TC 235; TG 551; HDL 35; LDL TNP - last microalbumin test: 11/08/23, UACR: TNP Assessment & Plan (02/06/2024 5:48 AM EST): - A1C 6.7% on 12/21/23 - in a setting of frequent steroid use for COPD exacerbation - continue working on lifestyle modifications - continue SMBG - increase metformin ER 500 mg twice daily - last eye exam: referred to [facility] eye care - last comprehensive foot exam: 10/04/23, left 2nd toe fracture after a fall - last lipid profile: 11/08/23, TC 235; TG 551; HDL 35; LDL TNP - last microalbumin test: 11/08/23, UACR: TNP Assessment & Plan (11/29/2023 11:37 AM EDT): - A1C 6.5% on 10/04/23 - in a setting of frequent steroid use for COPD exacerbation - continue working on lifestyle modifications - continue SMBG - continue metformin ER 500 mg once daily - last eye exam: referred to [facility] eye care - last comprehensive foot exam: 10/04/23, left 2nd toe fracture after a fall - last lipid profile: 11/08/23, TC 235; TG 551; HDL 35; LDL TNP - last microalbumin test: 11/08/23, UACR: TNP Assessment & Plan (11/28/2023 5:43 AM EDT): >>ASSESSMENT AND PLAN FOR PREDIABETES WRITTEN ON 05/08/2022 5:49 PM BY CATHLEEN MO MD - in a setting of frequent prednisone use for COPD/asthma exacerbation Assessment & Plan (11/28/2023 5:43 AM EDT): >>ASSESSMENT AND PLAN FOR PREDIABETES WRITTEN ON 05/08/2023 6:34 AM BY CATHLEEN MO MD - in a setting of frequent prednisone use for COPD/asthma exacerbation Assessment & Plan (10/11/2023 11:43 AM EDT): - A1C 6.5% on 10/04/23 - in a setting of frequent steroid use for COPD exacerbation - continue working on lifestyle modifications - continue SMBG - continue metformin ER 500 mg once daily - last eye exam: referred to [facility] eye care - last comprehensive foot exam: 10/04/23, left 2nd toe fracture after a fall - last lipid profile: 12/24/22 - last microalbumin test: Ordered Assessment & Plan (10/05/2023 6:28 AM EDT): - A1C 6.5% on 10/04/23 - in a setting of frequent steroid use for COPD exacerbation - continue working on lifestyle modifications - continue SMBG - continue metformin ER 500 mg once daily - last eye exam: referred to [facility] eye care - last comprehensive foot exam: 10/04/23, left 2nd toe fracture after a fall - last lipid profile: 12/24/22 - last microalbumin test: Ordered Assessment & Plan (08/27/2023 6:47 AM EDT): - A1C 6.4% on 07/22/23, improved from 6.7% on 05/19/23 - in a setting of frequent steroid use for COPD exacerbation - continue working on lifestyle modifications - continue SMBG - continue metformin ER 500 mg once daily - last eye exam: referred to [facility] eye care - last comprehensive foot exam: - last lipid profile: 12/24/22 - last microalbumin test: Ordered Assessment & Plan (11/28/2023 5:43 AM EDT): >>ASSESSMENT AND PLAN FOR DIABETES MELLITUS, TYPE 2 ([facility]) WRITTEN ON 05/31/2023 4:21 PM BY CATHLEEN MO MD - A1C 6.7% on 05/19/23, likely due to frequent steroid use recently - continue working on lifestyle modifications - start SMBG - start metformin ER 500 mg once daily - refer to [facility] eye care - foot exam at next visit >>ASSESSMENT AND PLAN FOR PREDIABETES WRITTEN ON 05/20/2023 11:04 AM BY MARTIN Ibrahim in a setting of frequent prednisone use for COPD/asthma exacerbation Alcohol use disorder 10/26/2016 Assessment & Plan (11/29/2023 11:35 AM EDT): She has not been drinking alcohol Early maintenance stage Encouraged to continue working on recovery Assessment & Plan (12/05/2022 5:49 AM EDT): She has not been drinking alcohol Early maintenance stage Encouraged to continue working on recovery Assessment & Plan (05/08/2022 5:54 PM EST): She has not been drinking alcohol Early maintenance stage Encouraged to continue working on recovery Dyslipidemia 05/24/2016 Assessment & Plan (06/12/2024 9:01 AM EDT): - last lipid profile: 11/08/23 TC 235; TG 551; HDL 35; LDL TNP - Current medication: rosuvastatin 20 mg qhs and omega-3 1g bid - Work on lifestyle modificatioins - Moderate intensity statin therapy is recommended - Monitor LFT; consider decreasing rosuvastatin to 10 mg at bedtime if transaminates worsens. Assessment & Plan (04/30/2024 9:07 AM EST): - last lipid profile: 11/08/23 TC 235; TG 551; HDL 35; LDL TNP - Current medication: rosuvastatin 20 mg qhs and omega-3 1g bid - Work on lifestyle modificatioins - Moderate intensity statin therapy is recommended - Monitor LFT; consider decreasing rosuvastatin to 10 mg at bedtime if transaminates worsens. Assessment & Plan (03/26/2024 5:04 PM EST): - last lipid profile: 11/08/23 TC 235; TG 551; HDL 35; LDL TNP - Current medication: rosuvastatin 20 mg qhs and omega-3 1g bid - Work on lifestyle modificatioins - Moderate intensity statin therapy is recommended - Monitor LFT; consider decreasing rosuvastatin to 10 mg at bedtime if transaminates worsens. Assessment & Plan (02/02/2024 2:28 PM EST): - last lipid profile: 11/08/23 TC 235; TG 551; HDL 35; LDL TNP - Current medication: rosuvastatin 20 mg qhs and omega-3 1g bid - Work on lifestyle modificatioins - Moderate intensity statin therapy is recommended - Monitor LFT; consider decreasing rosuvastatin to 10 mg at bedtime if transaminates worsens. Assessment & Plan (11/29/2023 11:36 AM EDT): - last lipid profile: 11/08/23 TC 235; TG 551; HDL 35; LDL TNP - Current medication: rosuvastatin 20 mg qhs and omega-3 1g bid - Work on lifestyle modificatioins - Moderate intensity statin therapy is recommended - Monitor LFT; consider decreasing rosuvastatin to 10 mg at bedtime if transaminates worsens. Assessment & Plan (10/11/2023 11:43 AM EDT): - last lipid profile: 12/14/22 TC 305; TG 549; HDL 54; LDL 147 - Current medication: rosuvastatin 20 mg qhs and omega-3 1g bid - Work on lifestyle modificatioins - Moderate intensity statin therapy is recommended - Monitor LFT; consider decreasing rosuvastatin to 10 mg at bedtime if transaminates worsens. Assessment & Plan (10/04/2023 9:58 AM EDT): - last lipid profile: 12/14/22 TC 305; TG 549; HDL 54; LDL 147 - Current medication: rosuvastatin 20 mg qhs and omega-3 1g bid - Work on lifestyle modificatioins - Moderate intensity statin therapy is recommended - Monitor LFT; consider decreasing rosuvastatin to 10 mg at bedtime if transaminates worsens. Assessment & Plan (08/18/2023 5:42 AM EDT): - last lipid profile: 12/14/22 TC 305; TG 549; HDL 54; LDL 147 - Current medication: rosuvastatin 20 mg qhs and omega-3 1g bid - Work on lifestyle modificatioins - Moderate intensity statin therapy is recommended - Monitor LFT; consider decreasing rosuvastatin to 10 mg at bedtime if transaminates worsens. Assessment & Plan (04/28/2023 1:13 PM EST): - last lipid profile: 12/14/22 TC 305; TG 549; HDL 54; LDL 147 - Current medication: rosuvastatin 20 mg qhs and omega-3 1g bid - Work on lifestyle modificatioins - Moderate intensity statin therapy is recommended - Monitor LFT; consider decreasing rosuvastatin to 10 mg at bedtime if transaminates worsens. Assessment & Plan (12/24/2022 4:05 PM EDT): - last lipid profile: 12/14/22 TC 305; TG 549; HDL 54; LDL 147 - Current medication: rosuvastatin 20 mg qhs and omega-3 1g bid - Work on lifestyle modificatioins - Moderate intensity statin therapy is recommended - Monitor LFT; consider decreasing rosuvastatin to 10 mg at bedtime if transaminates worsens. Assessment & Plan (05/08/2022 6:27 PM EST): - last fasting lipid profile: 08/13/20 TC 304; TG 692; HDL 59 - with high triglyceride level 10/23/19 TC 345; TG 1039; HDL 36; LDL cannot be calculated - Current medication: rosuvastatin 20 mg qhs and omega-3 1g bid - According to ACC/AHA guideline, 10-year ASCVD risk is > 7.5%, and moderate -intensity statin therapy is recommended. Previously she was not on statin due to Hx transaminitis and alcoholic hepatitis. We agreed to start on rosuvastatin with caution due to horrendous lipid profile.. Emphasized the importance of lifestyle modification. - Recheck lab. Assessment & Plan (04/12/2022 7:41 PM EST): - last fasting lipid profile: 08/13/20 TC 304; TG 692; HDL 59 - with high triglyceride level 10/23/19 TC 345; TG 1039; HDL 36; LDL cannot be calculated - Current medication: rosuvastatin 20 mg qhs and omega-3 1g bid - According to ACC/AHA guideline, 10-year ASCVD risk is > 7.5%, and moderate -intensity statin therapy is recommended. Previously she was not on statin due to Hx transaminitis and alcoholic hepatitis. We agreed to start on rosuvastatin with caution due to horrendous lipid profile.. Emphasized the importance of lifestyle modification. - Recheck lab. Umbilical hernia without obstruction and without gangrene 07/07/2015 Dependence on supplemental oxygen 01/07/2015 Assessment & Plan (06/16/2024 5:54 AM EDT): -Continuous supplemental oxygen 4-6 L/m -Supplier: [employer] -Check if she can get a portable oxygen concentrator because her current portable oxygen does not last very long and it is heavy -Avoid smoking around oxygen Assessment & Plan (04/30/2024 9:06 AM EST): -Continuous supplemental oxygen 4-6 L/m -Supplier: [employer] -Check if she can get a portable oxygen concentrator -Avoid smoking around oxygen Assessment & Plan (04/02/2024 6:15 AM EST): -Continuous supplemental oxygen 4-6 L/m -Supplier: [employer] -Check if she can get a portable oxygen concentrator -Avoid smoking around oxygen Assessment & Plan (02/06/2024 5:23 AM EST): -Continuous supplemental oxygen 4-6 L/m -Supplier: [employer] -Check if she can get a portable oxygen concentrator -Avoid smoking around oxygen Assessment & Plan (11/29/2023 11:31 AM EDT): -Continuous supplemental oxygen 4-6 L/m -Supplier: [employer] -Check if she can get an oxygen concentrator -Avoid smoking around oxygen Assessment & Plan (10/04/2023 9:57 AM EDT): -Continuous supplemental oxygen 4-6 L/m -Supplier: [employer] -Check if she can get an oxygen concentrator -Avoid smoking around oxygen Assessment & Plan (05/31/2023 4:31 PM EST): -Continuous supplemental oxygen 4-6 L/m -Supplier: [employer] -Check if she can get an oxygen concentrator -Avoid smoking around oxygen Assessment & Plan (05/08/2023 6:28 AM EST): -Continuous supplemental oxygen 4L/m -Supplier: [employer] Assessment & Plan (03/01/2023 6:44 AM EST): -Supplier: [employer] -Pt had [id number] visit with Dr. Hart, production control specialist, on 01/28/23. He recommended supplemental oxygen 4LNC at rest and 6LNC with activity based on last evaluation -Continue as recommended. Assessment & Plan (01/05/2023 5:14 PM EDT): -Continuous supplemental oxygen 4L/m -Supplier: [employer] -Contacted [employer] for oxygen delivery RAN -Pt also needs a rollator as she needs frequent rest when walking. Assessment & Plan (12/05/2022 5:52 AM EDT): -Continuous supplemental oxygen 4L/m -Supplier: [employer] -Contacted [employer] for oxygen delivery RAN Assessment & Plan (05/08/2022 5:44 PM EST): -Continuous supplemental oxygen 4L/m Erythrocytosis 01/07/2015 Assessment & Plan (05/08/2023 6:35 AM EST): - 09/24/21 Hemoglobin 19.0; Hematocrit 59.1 - likely due to hypoxia / COPD - previously referred to milieu coordinator, but pt missed appt Assessment & Plan (12/05/2022 5:49 AM EDT): - 09/24/21 Hemoglobin 19.0; Hematocrit 59.1 - likely due to hypoxia / COPD - previously referred to milieu coordinator, but pt missed appt Assessment & Plan (05/08/2022 5:50 PM EST): - 09/24/21 Hemoglobin 19.0; Hematocrit 59.1 - likely due to hypoxia / COPD - previously referred to milieu coordinator, but pt missed appt Assessment & Plan (04/12/2022 7:51 PM EST): - 09/24/21 Hemoglobin 19.0; Hematocrit 59.1 - likely due to hypoxia / COPD - previously referred to milieu coordinator, but pt missed appt 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 Assessment & Plan (05/03/2024 5:15 PM EST): -Likely due to Hx alcohol use disorder -Followed by [facility], last visit on 12/21/23 -Hepatitis profile: [...] office to reschedule appointment for liver US. Assessment & Plan (03/26/2024 5:03 PM EST): -Likely due to Hx alcohol use disorder -Followed by [facility], last visit on 12/21/23 -Hepatitis profile: [...] office to reschedule appointment for liver US. Assessment & Plan (02/06/2024 5:37 AM EST): -Likely due to Hx alcohol use disorder -Followed by [facility], last visit on 12/21/23 -Hepatitis profile: [...] office to reschedule appointment for liver US. Assessment & Plan (11/29/2023 11:32 AM EDT): -Likely due to Hx alcohol use disorder -Followed by [facility], last visit on 06/22/23 -Hepatitis profile: Hep B immune, reactive Hep [...] office to reschedule appointment for liver US. Assessment & Plan (10/11/2023 11:42 AM EDT): -Likely due to Hx alcohol use disorder -Followed by [facility], last visit on 06/22/23 -Hepatitis profile: Hep B immune, reactive Hep [...] office to reschedule appointment for liver US. Assessment & Plan (10/04/2023 5:22 PM EDT): -Likely due to Hx alcohol use disorder -Followed by [facility], last visit on 06/22/23 -Hepatitis profile: Hep B immune, reactive Hep [...] office to reschedule appointment for liver US. Assessment & Plan (08/27/2023 6:53 AM EDT): -Likely due to Hx alcohol use disorder -Followed by [facility], last visit on 06/22/23 -Hepatitis profile: Hep B immune, reactive Hep [...] from alcohol; Encouraged to continue staying abstinent Assessment & Plan (05/31/2023 4:33 PM EST): -Likely due to Hx alcohol use disorder -Followed by [facility], last visit on 09/24/21 -Hepatitis profile: Hep B immune, reactive Hep C antibody with undetectable VL -Last lab in August 2021 -Last US on 10/28/20 showing generalized increase in hepatic echotexture, consistent with fatty infiltration or hepatocellular disease. -Omeprazole was switched to Pantoprazole in Apr [...] from alcohol; Encouraged to continue staying abstinent -consider changing to [facility] since pt has a difficulty getting appt with current GI Assessment & Plan (04/28/2023 1:18 PM EST): -Likely due to Hx alcohol use disorder -Followed by [facility], last visit on 09/24/21 -Hepatitis profile: Hep B immune, reactive Hep C antibody with undetectable VL -Last lab in August 2021 -Last US on 10/28/20 showing generalized increase in hepatic echotexture, consistent with fatty infiltration or hepatocellular disease. -Omeprazole was switched to Pantoprazole in Apr [...] from alcohol; Encouraged to continue staying abstinent -consider changing to [facility] since pt has a difficulty getting appt with current GI Assessment & Plan (10/02/2023 4:38 PM EDT): >>ASSESSMENT AND PLAN FOR CHRONIC LIVER DISEASE WRITTEN ON 12/22/2022 10:01 AM BY JIMMIE PARSONS -Likely due to Hx alcohol use disorder -Followed by [facility], last visit on 09/24/21 -Hepatitis profile: Hep B immune, reactive Hep C antibody with undetectable VL -Last lab in August 2021 -Last US on 10/28/20 showing generalized increase in hepatic echotexture, consistent with fatty infiltration or hepatocellular disease. -Omeprazole was switched to Pantoprazole in Apr [...] from alcohol; Encouraged to continue staying abstinent -consider changing to [facility] since pt has a difficulty getting appt with current GI >>ASSESSMENT AND PLAN FOR TRANSAMINITIS WRITTEN ON 12/24/2022 3:44 PM BY CATHLEEN MO MD 12/14/22 AST 87; ALT 41 ; Alkaline 180 ; AFP 3.7 ; Total Bilirubin 1.4 ; ALBUMIN 4.3 -continue working on lifestyle modifications -recommended to reschedule a follow-up appt with GI Assessment & Plan (12/05/2022 5:53 AM EDT): -Likely due to Hx alcohol use disorder -Followed by [facility], last visit on 09/24/21 -Hepatitis profile: Hep B immune, reactive Hep C antibody with undetectable VL -Last lab in August 2021 -Last US on 10/28/20 showing generalized increase in hepatic echotexture, consistent with fatty infiltration or hepatocellular disease. -Omeprazole was switched to Pantoprazole in Apr [...] from alcohol; Encouraged to continue staying abstinent -consider changing to [facility] since pt has a difficulty getting appt with current GI Assessment & Plan (05/08/2022 5:48 PM EST): -Likely due to Hx alcohol use disorder -Followed by [facility], last visit on 09/24/21 -Hepatitis profile: Hep B immune, reactive Hep C antibody with undetectable VL -Last lab in August 2021 -Last US on 10/28/20 showing generalized increase in hepatic echotexture, consistent with fatty infiltration or hepatocellular disease. -Omeprazole was switched to Pantoprazole in Apr [...] from alcohol; Encouraged to continue staying abstinent Assessment & Plan (04/12/2022 7:38 PM EST): -Likely due to Hx alcohol use disorder -Followed by [facility], last visit on 09/24/21 -Hepatitis profile: Hep B immune, reactive Hep C antibody with undetectable VL -Last lab in August 2021 -Last US on 10/28/20 showing generalized increase in hepatic echotexture, consistent with fatty infiltration or hepatocellular disease. -Omeprazole was switched to Pantoprazole in Apr [...] from alcohol; Encouraged to continue staying abstinent Hypertension 02/26/2014 Assessment & Plan (06/12/2024 9:00 AM EDT): -Goal BP < 140/90 per JNC-8 and [...] 3 mo, sooner if any problem arises Assessment & Plan (04/30/2024 9:07 AM EST): -Goal BP < 140/90 per JNC-8 and [...] 3 mo, sooner if any problem arises Assessment & Plan (03/26/2024 5:03 PM EST): -Goal BP < 140/90 per JNC-8 and [...] 3 mo, sooner if any problem arises Assessment & Plan (02/06/2024 5:36 AM EST): -Goal BP < 140/90 per JNC-8 and [...] 3 mo, sooner if any problem arises Assessment & Plan (11/29/2023 11:32 AM EDT): -Goal BP < 140/90 per JNC-8 and [...] 3 mo, sooner if any problem arises Assessment & Plan (10/11/2023 11:41 AM EDT): -Goal BP < 140/90 per JNC-8 and < 130/80 per ACC/AHA guideline (Treatment threshold >= 140/90 ) -Continue working on lifestyle modifications -Continue monitoring [...] 3 mo, sooner if any problem arises Assessment & Plan (10/04/2023 9:57 AM EDT): -Goal BP < 140/90 per JNC-8 and < 130/80 per ACC/AHA guideline (Treatment threshold >= 140/90 ) -Continue working on lifestyle modifications -Continue monitoring [...] 3 mo, sooner if any problem arises Assessment & Plan (08/23/2023 3:10 PM EDT): -Goal BP < 140/90 per JNC-8 and < 130/80 per ACC/AHA guideline (Treatment threshold >= 140/90 ) -Continue working on lifestyle modifications -Continue monitoring [...] 3 mo, sooner if any problem arises Assessment & Plan (05/31/2023 4:33 PM EST): -Goal BP < 140/90 per JNC-8 and < 130/80 per ACC/AHA guideline (Treatment threshold >= 140/90 ) -Continue working on lifestyle modifications -Continue monitoring BP at home (patient has visiting nurse service, and BP reportedly has been normal) -Continue current medications: Amlodipine 10 mg daily ; olmesartan 40 mg daily -Treatment Hx: Due to chronic cough, switched lisinopril to olmesartan recently. -Follow up in 3-6 mo, sooner if any problem arises Assessment & Plan (05/08/2023 6:51 AM EST): -Goal BP < 140/90 per JNC-8 and < 130/80 per ACC/AHA guideline (Treatment threshold >= 140/90 ) -Continue working on lifestyle modifications -Continue monitoring BP at home (patient has visiting nurse service, and BP reportedly has been normal) -Continue current medications: Amlodipine 10 mg daily ; lisinopril 40 mg daily -Will discontinue ACEI and start ARB, preferably olmesartan 40 mg or telmesartan 80 mg, but if not approved will prescribe [id number] mg daily -Follow up in 3-6 mo, sooner if any problem arises Assessment & Plan (03/01/2023 6:52 AM EST): -Goal BP < 140/90 per JNC-8 and < 130/80 per ACC/AHA guideline (Treatment threshold >= 140/90 ) -Continue working on lifestyle modifications -Continue Amlodipine 10 mg daily -Recently seen by production control specialist, Dr. Hart, and was recommended to switch lisinopril 40 mg daily to another medication due to chronic cough; discontinue lisinopril -Start losartan 100 mg daily -Follow up in 3-6 mo, sooner if any problem arises Assessment & Plan (12/22/2022 10:03 AM EDT): -Goal BP < 140/90 per JNC-8 and < 130/80 per ACC/AHA guideline (Treatment threshold >= 140/90 ) -Continue working on lifestyle modifications -Continue current medications: Amlodipine 10 mg daily ; lisinopril 40 mg daily -Follow up in 3-6 mo, sooner if any problem arises Assessment & Plan (12/05/2022 5:52 AM EDT): -Goal BP < 140/90 per JNC-8 and < 130/80 per ACC/AHA guideline (Treatment threshold >= 140/90 ) -Continue working on lifestyle modifications -Continue current medications: Amlodipine 10 mg daily ; lisinopril 40 mg daily -Follow up in 3-6 mo, sooner if any problem arises Assessment & Plan (05/08/2022 5:47 PM EST): -Goal BP < 140/90 per JNC-8 and < 130/80 per ACC/AHA guideline (Treatment threshold >= 140/90 ) -Continue working on lifestyle modifications -Continue current medications: Amlodipine 10 mg daily ; lisinopril 40 mg daily -Follow up in 3-6 mo, sooner if any problem arises Assessment & Plan (04/12/2022 7:53 PM EST): -Goal BP < 140/90 per JNC-8 and < 130/80 per ACC/AHA guideline (Treatment threshold >= 140/90 ) -Continue working on lifestyle modifications -Continue current medications: Amlodipine 10 mg daily ; lisinopril 40 mg daily -Follow up in 3-6 mo, sooner if any problem arises Migraine 08/01/2012 Depression 03/29/2012 Assessment & Plan (06/16/2024 6:08 AM EDT): Previous Dx: Depression; PTSD; alcohol-induced mood disorder [facility] provider: [facility], psychiatrist Dr. Cruz Current medications: sertraline 125 mg daily, perphenazine 4 mg daily Previously tried medications: risperidone; hydroxyzine; prazosin pt is depression has worsened with current living condition pt was able to contract her safety today Assessment & Plan (04/02/2024 6:22 AM EST): Previous Dx: Depression; PTSD; alcohol-induced mood disorder [facility] provider: [facility] Current medications: sertraline, prazosin 2mg, hydroxyzine, and risperidone. pt is depression has worsened with current living condition pt was able to contract her safety today Assessment & Plan (10/04/2023 9:59 AM EDT): Previous Dx: Depression; PTSD; alcohol-induced mood disorder [facility] provider: [facility] Current medications: sertraline, prazosin 2mg, hydroxyzine, and risperidone. pt is depression has worsened with current living condition pt was able to contract her safety today Assessment & Plan (08/18/2023 5:43 AM EDT): Previous Dx: Depression; PTSD; alcohol-induced mood disorder [facility] provider: [facility] Current medications: sertraline, prazosin 2mg, hydroxyzine, and risperidone. pt is depression has worsened with current living condition pt was able to contract her safety today Assessment & Plan (05/08/2022 5:53 PM EST): Previous Dx: Depression; PTSD; alcohol-induced mood disorder [facility] provider: [facility] Current medications: sertraline, prazosin 2mg, hydroxyzine, and risperidone. pt is depression has worsened with current living condition pt was able to contract her safety today Assessment & Plan (04/12/2022 7:43 PM EST): Previous Dx: Depression; PTSD; alcohol-induced mood disorder [facility] provider: [facility] Current medications: sertraline, prazosin 2mg, hydroxyzine, and risperidone. pt is depression has worsened with current living condition pt was able to contract her safety today Opioid dependence on agonist therapy 03/29/2012 Assessment & Plan (06/16/2024 6:05 AM EDT): She has Narcan at home She receives methadone by home delivery, which seems to be beneficial Continue on Methadone Tx. Current dose 55 mg Continue current recovery effort and support Assessment & Plan (11/29/2023 11:36 AM EDT): She has Narcan at home She receives methadone by home delivery, which seems to be beneficial Continue on Methadone Tx. Current dose 85 mg Continue current recovery effort and support Assessment & Plan (05/08/2023 6:37 AM EST): She has Narcan at home She receives methadone by home delivery, which seems to be beneficial Continue on Methadone Tx. Current dose 85 mg Continue current recovery effort and support Assessment & Plan (05/08/2022 5:52 PM EST): She has Narcan at home She receives methadone by home delivery, which seems to be beneficial Continue on Methadone Tx. Currently taking at 78 mg Continue current recovery effort and support Assessment & Plan (04/12/2022 7:42 PM EST): She has Narcan at home She started receiving methadone home delivery Continue on Methadone Tx. Currently taking at 78 mg Tobacco dependence 03/29/2012 Assessment & Plan (06/12/2024 9:01 AM EDT): - restarted smoking in August 2023 - previously tried varenicline and nicotine replacement - not candidate for lung cancer screening CT due to severe COPD - continue working on smoking cessation - prescribed varenicline in Nov 2023 - referred to [facility] Assessment & Plan (04/26/2024 10:32 AM EST): - restarted smoking in August 2023 - previously tried varenicline and nicotine replacement - not candidate for lung cancer screening CT due to severe COPD - continue working on smoking cessation - prescribed varenicline in Nov 2023 - referred to [facility] Assessment & Plan (04/02/2024 6:20 AM EST): - restarted smoking in August 2023 - previously tried varenicline and nicotine replacement - not candidate for lung cancer screening CT due to severe COPD - continue working on smoking cessation - prescribed varenicline in Nov 2023 - referred to [facility] Assessment & Plan (02/06/2024 5:38 AM EST): - restarted smoking in August 2023 - previously tried varenicline and nicotine replacement - not candidate for lung cancer screening CT due to severe COPD - continue working on smoking cessation - prescribed varenicline in Nov 2023 - referred to [facility] Assessment & Plan (11/29/2023 11:53 AM EDT): - restarted smoking in August 2023 - previously tried varenicline and nicotine replacement - not candidate for lung cancer screening CT due to severe COPD - continue working on smoking cessation - will restart varenicline Assessment & Plan (10/11/2023 11:44 AM EDT): - restarted smoking in August 2023 - previously tried varenicline and nicotine replacement - not candidate for lung cancer screening CT due to severe COPD - continue working on smoking cessation Assessment & Plan (10/05/2023 6:30 AM EDT): - restarted smoking in August 2023 - previously tried varenicline and nicotine replacement - not candidate for lung cancer screening CT due to severe COPD - continue working on smoking cessation Assessment & Plan (08/27/2023 6:56 AM EDT): - recently quit smoking July 2023 - continue working on smoking cessation and remain non-smoker - previously tried varenicline and nicotine replacement - not candidate for lung cancer screening CT due to severe COPD Assessment & Plan (04/28/2023 1:17 PM EST): - continue working on smoking cessation - previously tried varenicline and nicotine replacement - not candidate for lung cancer screening CT due to severe COPD Assessment & Plan (12/22/2022 10:06 AM EDT): - continue working on smoking cessation - previously tried varenicline and nicotine replacement - not candidate for lung cancer screening CT due to severe COPD Assessment & Plan (05/08/2022 5:51 PM EST): - continue working on smoking cessation - previously tried varenicline and nicotine replacement - not candidate for lung cancer screening CT due to severe COPD Assessment & Plan (04/12/2022 7:51 PM EST): - continue working on smoking cessation - previously tried varenicline and nicotine replacement Hypothyroidism 10/20/2011 Assessment & Plan (06/16/2024 6:02 AM EDT): - Installation Service Representative: [facility], last visit on 06/15/20 - Current replacement: levothyroxine 225 mcg daily - Most recent thyroid function test: 11/08/23 therapeutic range - Recheck today Assessment & Plan (04/26/2024 10:32 AM EST): - Installation Service Representative: [facility], last visit on 06/15/20 - Current replacement: levothyroxine 225 mcg daily - Most recent thyroid function test: 11/08/23 therapeutic range Assessment & Plan (03/26/2024 5:03 PM EST): - Installation Service Representative: [facility], last visit on 06/15/20 - Current replacement: levothyroxine 225 mcg daily - Most recent thyroid function test: 08/03/23 therapeutic range - Requested to repeat lab today. - Encouraged to improve adherence. Assessment & Plan (02/02/2024 2:28 PM EST): - Installation Service Representative: [facility], last visit on 06/15/20 - Current replacement: levothyroxine 225 mcg daily - Most recent thyroid function test: 08/03/23 therapeutic range - Requested to repeat lab today. - Encouraged to improve adherence. Assessment & Plan (11/29/2023 11:32 AM EDT): - Installation Service Representative: [facility], last visit on 06/15/20 - Current replacement: levothyroxine 225 mcg daily - Most recent thyroid function test: 08/03/23 therapeutic range - Requested to repeat lab today. - Encouraged to improve adherence. Assessment & Plan (10/11/2023 11:43 AM EDT): - Installation Service Representative: [facility], last visit on 06/15/20 - Current replacement: levothyroxine 225 mcg daily - Most recent thyroid function test: 08/03/23 therapeutic range - Requested to repeat lab today. - Encouraged to improve adherence. Assessment & Plan (10/02/2023 4:45 PM EDT): - Installation Service Representative: [facility], last visit on 06/15/20 - Current replacement: levothyroxine 225 mcg daily - Most recent thyroid function test: 08/03/23 therapeutic range - Requested to repeat lab today. - Encouraged to improve adherence. Assessment & Plan (12/05/2022 5:49 AM EDT): - Installation Service Representative: [facility], last visit on 06/15/20 - Current replacement: levothyroxine 200 mcg daily - Most recent thyroid function test: 09/24/21 TSH 23.42 - 08/13/20 TSH 26.67, Free T4 0.9 - 10/22/19 TSH 48.28; Free T4 0.44 - Requested to repeat lab today. - Encouraged to improve adherence. - Advised to keep appt with Installation Service Representative Assessment & Plan (04/12/2022 7:31 PM EST): - Installation Service Representative: [facility], last visit on 06/15/20 - Current replacement: levothyroxine 200 mcg daily - Most recent thyroid function test: 09/24/21 TSH 23.42 - 08/13/20 TSH 26.67, Free T4 0.9 - 10/22/19 TSH 48.28; Free T4 0.44 - Requested to repeat lab today. - Encouraged to improve adherence. - Advised to keep appt with Installation Service Representative Resolved Problems Problem Noted Date Diagnosed Date Resolved Date COPD with acute exacerbation 03/08/2024 03/25/2024 Assessment & Plan (03/08/2024 3:47 PM EST): Suspect acute COPD exacerbation. At baseline O2 SAT with supplemental oxygen. -prescribed 100 mg Doxycyline 100 mg BID for 7 days. -prescribed Prednisone taper. -ER precautions discussed. -Seek medical attention for worsening symptoms. Pulmonary edema 12/22/2023 02/06/2024 Polysubstance abuse 12/22/2023 04/02/19 25 COVID 12/22/2023 01/19/2024 Acute respiratory failure wi th hypoxia and hypercapnia 09/27/2023 10/02/2023 Community acquired pneumonia 09/27/2023 10/02/2023 Chronic cough 05/08/2023 08/23/2023 Assessment & Plan (05/08/2023 6:44 AM EST): - change ACEI to ARB - work on smoking cessation - optimize Tx for GERD and COPD Aspiration pneumonitis 04/28/202308/22 Assessment & Plan (04/28/2023 1:22 PM EST): -Ordered CXR -Will re-evaluate in 4 weeks. 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 04/12/19 23 08/23/2023 Assessment & Plan (05/31/2023 4:34 PM EST): - Installation Service Representative: [facility], last visit on 06/15/20 - Current replacement: levothyroxine 225 mcg daily (recently increased from 212.5 mcg because patient had TSH 5.92 and free T4 0.6) - Most recent thyroid function test: Most recent TSH in Mar 2023 was 5.92 (patient was having acute illness) - Recheck thyroid function Assessment & Plan (05/08/2023 6:34 AM EST): - Installation Service Representative: [facility], last visit on 06/15/20 - Current replacement: levothyroxine 225 mcg daily (recently increased from 212.5 mcg because patient had TSH 5.92 and free T4 0.6) - Most recent thyroid function test: Most recent TSH in Mar 2023 was 5.92 (patient was having acute illness) - Recheck thyroid function Assessment & Plan (12/24/2022 3:43 PM EDT): - Installation Service Representative: [facility], last visit on 06/15/20 - Current replacement: levothyroxine 200 mcg daily - Most recent thyroid function test: 12/14/22 TSH 32.45, Free T4 0.57 - Encouraged to improve adherence. Assessment & Plan (12/05/2022 5:53 AM EDT): - Installation Service Representative: [facility], last visit on 06/15/20 - Current replacement: levothyroxine 200 mcg daily - Most recent thyroid function test: 09/24/21 TSH 23.42 - 08/13/20 TSH 26.67, Free T4 0.9 - 10/22/19 TSH 48.28; Free T4 0.44 - Requested to repeat lab today. - Encouraged to improve adherence. - Advised to keep appt with Installation Service Representative Assessment & Plan (05/08/2022 5:49 PM EST): - Installation Service Representative: [facility], last visit on 06/15/20 - Current replacement: levothyroxine 200 mcg daily - Most recent thyroid function test: 09/24/21 TSH 23.42 - 08/13/20 TSH 26.67, Free T4 0.9 - 10/22/19 TSH 48.28; Free T4 0.44 - Requested to repeat lab today. - Encouraged to improve adherence. - Advised to keep appt with Installation Service Representative Assessment & Plan (04/12/2022 7:32 PM EST): - Installation Service Representative: [facility], last visit on 06/15/20 - Current replacement: levothyroxine 200 mcg daily - Most recent thyroid function test: 09/24/21 TSH 23.42 - 08/13/20 TSH 26.67, Free T4 0.9 - 10/22/19 TSH 48.28; Free T4 0.44 - Requested to repeat lab today. - Encouraged to improve adherence. - Advised to keep appt with Installation Service Representative Cirrhosis, alcoholic 01/07/2015 024 Assessment & Plan (05/31/2023 4:21 PM EST): -Followed by [facility], last visit on 09/24/21 -Hepatitis profile: Hep B immune, reactive Hep C antibody with undetectable VL -Last lab in August 2021 -Last US on 10/28/20 showing generalized increase in hepatic echotexture, consistent with fatty infiltration or hepatocellular disease. -Omeprazole was switched to Pantoprazole in Apr [...] from alcohol; Encouraged to continue staying abstinent Assessment & Plan (04/12/2022 7:38 PM EST): -Followed by [facility], last visit on 09/24/21 -Hepatitis profile: Hep B immune, reactive Hep C antibody with undetectable VL -Last lab in August 2021 -Last US on 10/28/20 showing generalized increase in hepatic echotexture, consistent with fatty infiltration or hepatocellular disease. -Omeprazole was switched to Pantoprazole in Apr [...] from alcohol; Encouraged to continue staying abstinent Asthma with COPD 09/03/2014 05/08/2023 Assessment & Plan (12/24/2022 3:41 PM EDT): - Manager Market: Ashly, last seen on 04/15/22 - Severe exacerbation 1-2 per year, none in [phone] - Most recent exacerbation today, 12/22/22. - Last hospitalization Feb 2020. [facility]. Rx ceftriaxone, steroid, discharged with prednisone burst. - Hospitalization in Mar 2019. Dx COPD exacerbation. Rx prednisone and doxycycline - Exacerbation in Jan 2019, hospitalized 02/05/19- 02/07/19, Dx COPD exacerbation, CAP, Tx azithromycin - [facility] 01/11/19-01/17/19, b/l lower lobe pneumonia, L > R, treated with IV steroid, levofloxacin, and bronchodilators Tx. Discharged with prednisone, benzonatate, levofloxacin. - Continue Symbicort and Incruse as maintenance. Plan to switch to Trelegy per production control specialist - Continue albuterol HFA prn. - Continue DuoNeb for neb prn Tx. - Continue workin on smoking cessation. - Continue supplemental oxygen 4L - Keep appt with production control specialist - Strongly encouraged to get COVID vaccine Assessment & Plan (12/05/2022 5:51 AM EDT): - Manager Market: Ashly, last seen on 04/15/22 - Severe exacerbation 1-2 per year, none in [phone] - Most recent exacerbation in Feb 2020, required hospitalization at [facility], Rx ceftriaxone, steroid, discharged with prednisone burst. - Hospitalization in Mar 2019. Dx COPD exacerbation. Rx prednisone and doxycycline - Exacerbation in Jan 2019, hospitalized 02/05/19- 02/07/19, Dx COPD exacerbation, CAP, Tx azithromycin - [facility] hospitalization 01/11/19-01/17/19, b/l lower lobe pneumonia, L > R, treated with IV steroid, levofloxacin, and bronchodilators Tx. Discharged with prednisone, benzonatate, levofloxacin. - Continue Symbicort and Incruse as maintenance. Plan to switch to Trelegy per production control specialist - Continue albuterol HFA prn. - Continue DuoNeb for neb prn Tx. - Continue workin on smoking cessation. - Continue supplemental oxygen 4L - Keep appt with production control specialist - Strongly encouraged to get COVID vaccine Assessment & Plan (05/08/2022 5:47 PM EST): - Manager Market: Ashly, last seen on 04/15/22 - Severe exacerbation 1-2 per year, none in [phone] - Most recent exacerbation in Feb 2020, required hospitalization at [facility], Rx ceftriaxone, steroid, discharged with prednisone burst. - Hospitalization in Mar 2019. Dx COPD exacerbation. Rx prednisone and doxycycline - Exacerbation in Jan 2019, hospitalized 02/05/19- 02/07/19, Dx COPD exacerbation, CAP, Tx azithromycin - [facility] hospitalization 01/11/19-01/17/19, b/l lower lobe pneumonia, L > R, treated with IV steroid, levofloxacin, and bronchodilators Tx. Discharged with prednisone, benzonatate, levofloxacin. - Continue Symbicort and Incruse as maintenance. Plan to switch to Trelegy per production control specialist - Continue albuterol HFA prn. - Continue DuoNeb for neb prn Tx. - Continue workin on smoking cessation. - Continue supplemental oxygen 4L - Keep appt with production control specialist - Strongly encouraged to get COVID vaccine Encounters Date Type Department Care Team Description 06/20/2024 Telephone [facility] [address] [place] [phone] Cathleen Mo MD 06/18/[address] [address] Cathleen Mo MD Care Management (C3CM- f/u call) 06/18/2024 Patient Outreach [address] [address] Cathleen Mo MD Care Coordination (PT1) 06/12/2024 1:15 PM EDT Office Visit [address] [address] Cathleen Mo MD Chronic obstructive pulmonary disease, unspecified COPD type (CMS/HCC) (Primary Dx); Dependence on supplemental oxygen; Chronic respiratory failure with hypoxia and hypercapnia (CMS/HCC); Centrilobular emphysema (CMS/HCC); Primary hypertension; Metabolic dysfunction-associated steatotic liver disease (MASLD); 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; Type 2 diabetes mellitus without complication, without long-term current use of insulin (CMS/HCC); Tobacco dependence; Dyslipidemia; Major depressive disorder in remission, unspecified whether recurrent (CMS/HCC); Opioid dependence on agonist therapy (CMS/HCC); Post-traumatic stress disorder; Chronic liver disease; Chronic neck pain; Chronic low back pain, unspecified back pain laterality, unspecified whether sciatica present; Skin lesions 06/12/2024 Orders Only [facility] [place] [address] Cathleen Mo MD 06/12/2024 Travel 06/11/2024 [address]reach [address] [place] [address] Cathleen Mo MD Care Coordination (Appt reminder) 06/07/[address] [address] Cathleen Mo MD chart prep 06/06/[address] [address] Cathleen Mo MD Care Management (C3CM- f/u call #2 lvm) 06/01/[address] [address] Cathleen Mo MD Care Management (C3CM- f/u call lvm) 05/28/2024 Patient Outreach [address] [address] Cathleen Mo MD Care Coordination (PT1) 05/28/[address] [address] Cathleen Mo MD 05/28/[address] [address] Cathleen Mo MD [facility] (Glove, exam vnyl lg) 05/24/[address] [address] Cathleen Mo MD 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 05/21/2024 Patient Outreach [address] [address] Cathleen Mo MD Care Coordination (PT1) 05/21/[address] [address] Cathleen Mo MD Care Management (C3CM- initial assessment/ enrollment) 05/18/2024 Patient Outreach [address] [address] Cathleen Mo MD Care Coordination (PT1) 05/18/2024 Patient Outreach [address] [address] Cathleen Mo MD Care Coordination (CM/CHW appt reminder) 05/17/[address] [address] Marie Monroe [place] 05/07/2024 Refill [facility] [address] [place] [address] Cathleen Mo MD 05/02/2024 Patient Outreach [address] [address] Cathleen Mo MD Care Coordination (CM/CHW outreach) 04/27/[address] [address] Bhumi Monroe RN Care Management (C3CM- chart review) 04/26/2024 9:30 AM EST Office Visit [address] [address] Cathleen Mo MD Chronic obstructive pulmonary disease, unspecified COPD type (CMS/HCC) (Primary Dx); Chronic respiratory failure with hypoxia and hypercapnia (CMS/HCC); Dependence on supplemental oxygen; Primary hypertension; Type 2 diabetes mellitus without complication, without long-term current use of insulin (CMS/HCC); 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; Zayra's thyroiditis; Tobacco dependence; Dyslipidemia; Dietary counseling; Exercise counseling; Overweight; Colon cancer screening; Chronic liver disease; Cirrhosis of liver without ascites, unspecified hepatic cirrhosis type (CMS/HCC); Sensorineural hearing loss (SNHL) of both ears; Preauricular mass; Parotid mass 04/26/2024 Travel 04/25/2024 Patient Outreach [address] [address] Cathleen Mo MD Care Coordination (SDOH) 04/19/2024 Patient Outreach [address] [phone] Cathleen Mo MD Care Coordination (SDOH) 04/12/[address] [address] Cathleen Mo MD chart prep 04/12/2024 Patient Outreach [address] [address] Cathleen Mo MD Care Coordination (SDOH f/u) 04/10/2024 Patient Outreach [address] [address] Cathleen Mo MD Care Coordination (CHW outreach for SDOH PT-1 and food needs-referral completed /) 04/10/[address] [address] Cathleen Mo MD Pt1 04/09/2024 Telephone [facility] [address] [place] [address] Yuliet Haddad [place] Durable Medical Equipment 04/06/2024 Patient Outreach [address] [address] Cathleen Mo MD Care Coordination (SDOH) 04/05/[address] [address] Cathleen Mo MD Letter Request 04/05/2024 Patient Outreach [address] [address] Cathleen Mo MD Care Coordination (CHW outreach for SDOH PT-1 and food needs-referral completed /) 04/05/2024 Patient Outreach [address] [address] Cathleen Mo MD Transition Of Care (Tcm) (HDF scheduled) 04/04/[address] [address] Marie Monroe [place] dme pads 04/03/2024 Patient Outreach [address] [address] Cathleen Mo MD Care Coordination (SDOH f/u) 04/02/[address] [address] Cathleen Mo MD 04/02/2024 Orders Only GENERIC EXTERNAL DATA DEPARTMENT Provider, Generic External Data 03/26/2024 3:30 PM EST Office Visit [facility] [address] [place] [address] Cathleen Mo MD Type 2 diabetes mellitus without complication, without long-term current use of insulin (CMS/HCC) (Primary Dx); Zayra's thyroiditis; 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; Chronic obstructive pulmonary disease, unspecified COPD type (CMS/HCC); Chronic respiratory failure with hypoxia and hypercapnia (CMS/HCC); Primary hypertension; Cirrhosis of liver without ascites, unspecified hepatic cirrhosis type (CMS/HCC); Chronic liver disease; Joint swelling; Dyslipidemia; Need for COVID-19 vaccine; Dependence on supplemental oxygen; Urinary incontinence, unspecified type; Tobacco dependence 03/26/2024 Travel 03/25/2024 Refill [facility] [address] [place] [address] Cathleen Mo MD Other specified hypothyroidism 03/23/2024 Telephone [facility] [address] [place] [address] Marie Monroe MA chart prep from Last 3 Months Immunizations Name Administration Dates Next Due Hep A / Hep B 10/13/2009,04/08/2009 Hep B, adult 07/14/2010 Influenza injectable quadriv alent preservative free 04/28/2023,04/29/2022,01/12/2019,03/13 Influenza, IIV3, injectable 12/09/2009 Influenza, Split (incl. chaparro fied surface antigen) 04/21/2012 Influenza, seasonal, injecta ble, preservative free 02/02/2024 Pfizer Covid-19 Vaccine 12+ 03/26/2024, Pneumococcal Conjugate PCV 20 04/28/2023 Pneumococcal Polysaccharide PPSV23 01/12/2019, TD (adult), 2 Lf tetanus tox oid, preservative free, adsorbed 04/29/2022,04/09/2009 Tdap 04/21/2012 Zoster, Recombinant 04/26/2024 Social History Tobacco Use Types Packs/Day Years Used Date Smoking Tobacco: Some Days Cigarettes 1.9 36.2 Started: 1988 Passive Smoke Exposure: Current Smokeless Tobacco: Never Tobacco Cessation:Ready to Q uit: Not Asked; Counseling Given: Not Answered Comments:Patient reports significant progress on tapering off over the last [...] Orientation Straight 01/25/2022 10 :16 AM EDT Last Filed Vital Signs Vital Sign Reading [...] oz) 06/12/2024 1:22 P M EDT Height 165.1 cm (5' 5 ) 02/02/2024 10:45 AM EST Body Mass Index 28.39 02/02/2024 10:45 AM EST Plan of Treatment Upcoming Encounters Date Type Department Care Team (Late st Contact Info) Description 06/28/2024 10:30 AM EDT Nurse Only [facility] [address] [place] [phone] Health Maintenance Due Date Last Done Comments CT Colonography 1966 Colonoscopy 1966 Dental Prophylaxis 1966 Dental X-Ray: Bitewings 1966 FIT 1966 FOBT 1966 Sigmoidoscopy 1966 Eye Exam 1976 Dental Oral Exam 07/22/2016 01/21/2016 Dental X-Ray: Full Mouth 01/21/2019 01/21/2016 Zoster Vaccines (2 of 2) 06/21/2024 04/26/2024 Depression Screening 07/21/2024 07/22/2023, 07/22/19 24 SDOH Screening 2024 10/10/2023 Diabetes: Foot Exam 10/10/2024 10/11/2023, Diabetes: Urine Protein Screening 11/07/2024 11/08/2023 Diabetes: Hemoglobin A1C 12/13/2024 025, 03/26/2024, 12/21/2023, Additional history exists Alcohol/Substance Use Screening 02/01/2025 02/02/2024 Tobacco Screening 02/05/2025 02/06/2024 Pap Smear 04/29/2025 04/29/2022, 02/07/2019 Lipid Panel 06/12/2025 06/12/2024, 10/26, 12/14/2022, Additional history exists Mammogram 07/12/2025 07/13/2023, 07/07/2022 Colorectal Cancer Screening 03/26/2027 FIT DNA/Cologuard 03/26/2027 03/26/2024 Cervical Cancer Screening 04/29/2027 HPV/Cotest 04/29/2027 04/29/2022, 01/26, 01/23/2019 DTaP/Tdap/Td Vaccines (3 - Td or Tdap) 04/29/2032 04/29/2022, 04/21/2012, 04/09/2009 RSV Patients and Patients Aged 60 years or older (1 - 1-dose 75+ series) 2041 Hepatitis A Vaccines Discontinued 10/13/2009, 04/08/19 10 Hepatitis B Vaccines Completed 07/14/2010, 10/13/2009, 04/08/2009 Pneumococcal Vaccine: 50+ Years Completed 04/28/2023, 01/12/2019, 04/21/2012 HIV Screening Completed 05/12/2023, 11/26, 10/22/2019 Influenza Vaccine Completed 02/02/2024, , 04/29/2022, Additional history exists COVID-19 Vaccine Completed 03/26/2024, 03/2023, 06/13/2020 HIB Vaccines Aged Out No longer eligi ble based on patient's age to complete this topic HPV Vaccines Aged Out No longer eligi ble based on patient's age to complete this topic IPV Vaccines Aged Out No longer eligi ble based on patient's age to complete this topic Lung Cancer Screening Discontinued Meningococcal Vaccine Aged Out No roxanne lj eligible based on patient's age to complete this topic RSV under 20 months Aged Out No longe r eligible based on patient's age to complete this topic Rotavirus Vaccines Aged Out No longer eligible based on patient's age to complete this topic Procedures Procedure Name Priority Date/Time Associated Diagnosis Comments CBC WITH AUTO DIFFERENTIAL Routine 06/12/2024 2:40 PM EDT Joint swelling T4, FREE Routine 06/12/2024 2:10 PM EDT SED RATE BY MODIFIED WESTERGREN Routine 06/12/2024 2:10 PM EDT Joint swelling C-REACTIVE PROTEIN Routine 06/12/2024 2: 10 PM EDT Joint swelling URIC ACID Routine 06/12/2024 2:10 PM EDT Joint swelling COMPREHENSIVE METABOLIC PANEL Routine 06/12/2024 2:10 PM EDT Primary hypertension TSH W/REFLEX TO FT4 Routine 06/12/2024 2 :10 PM EDT Zayra's thyroiditis 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 LIPID PANEL WITH REFLEX TO DIRECT LDL Routine 06/12/2024 2:10 PM EDT Dyslipidemia POCT GLYCOSYLATED HEMOGLOBIN (HGB A1C) Routine 06/12/2024 9:39 AM EDT Type 2 diabetes mellitus without complication, without long-term current use of insulin ([facility]/HCC) POCT GLUCOSE Routine 06/12/2024 9:38 AM EDT Type 2 diabetes mellitus without complication, without long-term current use of insulin (CMS/HCC) AMB REFERRAL TO PULMONOLOGY Routine 06/07/2024 Chronic respiratory failure with hypoxia and hypercapnia (CMS/HCC) LACTIC ACID LAB USE ONLY Routine 04/02/2024 11:35 AM EST VENOUS BLOOD GAS Routine 04/02/2024 10:2 8 AM EST LACTIC ACID Routine 04/02/2024 9:10 AM EST MAGNESIUM Routine 04/02/2024 6:01 AM EST COMPREHENSIVE METABOLIC PANEL Routine 04/02/2024 6:01 AM EST HIGH SENSITIVITY TROPONIN I Routine 04/02/2024 6:01 AM EST SARS COV2/INFLUENZA A/B AND RSV RNA QL NAAT Routine 04/02/2024 6:01 AM EST POCT GLYCOSYLATED HEMOGLOBIN (HGB A1C) Routine 03/26/2024 3:46 PM EST Type 2 diabetes mellitus without complication, without long-term current use of insulin (CMS/HCC) POCT GLUCOSE Routine 03/26/2024 3:45 PM EST Type 2 diabetes mellitus without complication, without long-term current use of insulin (CMS/HCC) LAB COLOGUARD?? COLON CANCER SCREEN Routine 03/26/2024 11:10 AM EST Screening for colon cancer ALBUMIN, RANDOM URINE W/CREATININE Routine 11/08/2023 1:45 PM EDT Type 2 diabetes mellitus without complication, without long-term current use of insulin ([facility]/HCC) BI MAMMOGRAM SCREENING TOMOSYNTHESIS BILATERAL Routine 07/13/2023 11:10 AM EDT HIV 1/2 ANTIGEN/ANTIBODY, FOURTH GENERATION W/RFL Routine 05/12/2023 11:06 AM EST Perspiration excessive THINPREP IMAGING PAP AND HPV MRNA E6/E7 WITH REFLEX TO HPV 16,18/45 Routine 04/29/2022 11:38 AM EST PANORAMIC RADIOGRAPHIC IMAGE Routine 01/21/2016 12:00 AM EDT COMPREHENSIVE ORAL EVALUATION - NEW OR ESTABLISHED PATIENT Routine 01/21/2016 12:00 AM EDT from Last 3 Months or Most Recently Relevant to Health Maintenance Results * (ABNORMAL) CBC auto differential (06/12/2024 2:40 PM EDT) White Blood Count 6.2 4.8 - 10.8 X10*3/uL [facility] Red Blood Count 5.40 4.20 - 5.50 X10*6/uL [facility] Hemoglobin 15.0 12.0 - 16.0 g/dl [facility] Hematocrit 48.2(H) 37.0 - 47.0 % [facility] Mean Corpuscular Volume 89.3 80.0 - 98.0 fL [facility] Mean Corpuscular Hemoglobin 27.8 27.0 - 33.0 pg [facility] Mean Corpuscular HGB Conc 31.1 31.0 - 35.0 g/dl [facility] Red Cell Distribution Width 14.4 11.0 - 16.0 % [facility] Platelet Count 161 160 - 400 X10*3/uL [facility] Mean Platelet Volume 11.6 9.4 - 12.3 fL [facility] Neutrophils Percent Auto 82.4(H) 45 - 73 % [facility] Imm Gran Pct Auto 0.2 0.0 - 0.4 % [facility] Lymphocytes Percent Auto 15.6(L) 20 - 40 % [facility] Monocytes Percent Auto 1.1(L) 2 - 11 % [facility] Eosinophils Percent Auto 0.2 0 - 4 % [facility] Basophils Percent Auto 0.5 0 - 2 % [facility] NRBC Pct Auto 0.0 0.0 - 0.2 /100WBC [facility] Neutrophils Absolute Auto 5.1 2.0 - 8.3 x10*3/uL [facility] Imm Gran Abs Auto 0.01 0.00 - 0.03 X10*3/uL [facility] Lymphocytes Absolute Auto 1.0(L) 1.2 - 4.9 X10*3/uL [facility] Monocytes Absolute Auto 0.1 0.1 - 1.2 X10*3/uL [facility] Eosinophils Absolute Auto 0.0 0.0 - 0.4 X10*3/uL [facility] Basophils Absolute Auto 0.0 0.0 - 0.2 X10*3/uL [facility] NRBC Abs Auto 0.000 0.0 - 0.012 X10*3/uL [facility] Blood Venous blood specimen / Unknown 06/12/2024 2:40 PM EDT 06/12/2024 4:48 PM EDT Cathleen Mo MD LAB BLOOD ORDERABLES Final Resul t Performing Organization Address City/[facility]/ZIP Co de Phone Number [facility] [address] [place] [phone] * (ABNORMAL) TSH with Reflex to Free T4 (06/12/2024 2:10 PM EDT) TSH reflex Free T4 0.22(L) 0.32 - 4.0 uIU/mL [facility] Blood 06/12/2024 2:10 PM EDT 06/12/2024 4:45 PM EDT us Cathleen Mo MD LAB BLOOD ORDERABLES Final Resul t Performing Organization Address [facility] Co de Phone Number [facility] [address] [place] [phone] * (ABNORMAL) Lipid Panel with Reflex to Direct LDL (06/12/2024 2:10 PM EDT) Triglycerides 269(H) <150 mg/dL [facility] Comment:Desirable Triglyceri de: less than 150 mg/dLBorderline High Triglyceride 150-199 mg/dLHigh Triglyceride: 200-499 mg/dLVery High Triglyceride: greater than or equal to 5OO mg/dL Cholesterol 282(H) <200 mg/dL [facility] Comment:Desirable Cholestero l: less than 200 mg/dLBorderline High Cholesterol: 200-239 mg/dLHigh Cholesterol: greater than 239 mg/dL LDL Cholesterol Calculated 182(H) <100 mg/dL [facility] Comment:Desirable LDL: less than 100 mg/dLNear Optimal/Above Optimal LDL: 110- 129 mg/dLBorderline High LDL: 130-159 mg/dLHigh LDL: 160-189 mg/dLVery High LDL: greater than or equal to 190 mg/dL HDL Cholesterol 47 >40 mg/dL [facility] Comment:Desirable HDL: great er than 40 mg/dL Note: This HDL assay may give artificially low results in patients with liver disease. Blood 06/12/2024 2:10 PM EDT 06/12/2024 4:45 PM EDT Cathleen Mo MD LAB BLOOD ORDERABLES Final Resul t Performing Organization Address City/[facility]/ZIP Co de Phone Number [facility] [address] [place] [phone] * Sed Rate by Modified Williamergren (06/12/2024 2:10 PM EDT) Erythrocyte Sedimentation Rate 12 0 - 20 MM/HR [facility] Comment:Patients with polycy themia and many hemoglobin abnormalitiesmay have depressed sed rates whereas patients with anemiamay have elevated sed rates. Blood Venous blood specimen / Unknown 06/12/2024 2:10 PM EDT 06/12/2024 4:45 PM EDT Cathleen Mo MD LAB BLOOD ORDERABLES Final Resul t Performing Organization Address [facility] Co de Phone Number [facility] [address] [place] [phone] * C-reactive Protein (06/12/2024 2:10 PM EDT) C Reactive Protein 0.13 < or = 0.50 mg/dL [facility] Blood Venous blood specimen / Unknown 06/12/2024 2:10 PM EDT 06/12/2024 4:45 PM EDT Cathelen Mo MD LAB BLOOD ORDERABLES Final Resul t Performing Organization Address City/[facility] Co de Phone Number [facility] [address] [place] [phone] * Uric acid (06/12/2024 2:10 PM EDT) Uric Acid 4.4 2.4 - 5.7 mg/dL [facility] Blood Venous blood specimen / Unknown 06/12/2024 2:10 PM EDT 06/12/2024 4:45 PM EDT Cathleen Mo MD LAB BLOOD ORDERABLES Final Resul t Performing Organization Address [facility] Co de Phone Number [facility] [address] [place] [phone] * T4, Free (06/12/2024 2:10 PM EDT) Free T4 (Free Thyroxine) 1.13 0.71 - 1.85 ng/dL [facility] 06/12/2024 2:10 PM EDT 06/12/2024 4:45 PM EDT Cathleen Mo MD LAB BLOOD ORDERABLES Final Resul t Performing Organization Address [facility] de Phone Number [facility] [address] [place] [phone] * (ABNORMAL) Comprehensive Metabolic Panel (06/12/2024 2:10 PM EDT) Only the most recent of2 resultswithin the time period is included. Sodium 142 135 - 145 mmol/L [facility] Potassium 4.2 3.3 - 5.1 mmol/L [facility] Chloride 98 96 - 108 mmol/L [facility] Carbon Dioxide 33(H) 22 - 29 mmol/L [facility] Anion Gap 15 12 - 20 [facility] Urea Nitrogen (BUN) 15 9 - 16 mg/dL [facility] Creatinine, Serum 0.67 0.5 - 1.4 mg/dL [facility] Estimated Glomerular Filt Rate >60 [facility] Comment:Chronic Kidney Disea se: Estimated GFR < 60 mL/min/1.33n8Kaarmq Kidney Disease: Estimated GFR < 15 mL/min/1.73m2 Glucose 181(H) 60 - 115 mg/dL [facility] Calcium 9.7 8.4 - 10.2 mg/dL [facility] Bilirubin, Total 0.5 0.0 - 1.0 mg/dL [facility] Aspartate Amino Transferase 30 5 - 31 U/L [facility] Alanine Aminotransferase 31 0 - 31 U/L [facility] Total Protein 8.3(H) 6.5 - 8.0 g/dL [facility] Albumin Level 4.3 3.5 - 5.0 g/dL [facility] Alkaline Phosphatase 95 39 - 117 U/L [facility] Blood Venous blood specimen / Unknown 06/12/2024 2:10 PM EDT 06/12/2024 4:45 PM EDT Cathleen Mo MD LAB BLOOD ORDERABLES Final Resul t [facility] [address] [place] [phone] * (ABNORMAL) POCT glycosylated hemoglobin (Hgb A1c) (06/12/2024 9:39 AM EDT) Only the most recent of2 resultswithin the time period is included. Hemoglobin A1C 6.8(A) 4.0 - 6.0 % QC Media Lot # [id number] Lot# Expiration Date Blood Capillary blood specimen / Unknown 06/12/2024 9:39 AM EDT Cathleen Mo MD POINT OF CARE TEST ENTER/EDIT OR DERABLES Final Result * (ABNORMAL) POCT glucose manually resulted (06/12/2024 9:38 AM EDT) Only the most recent of2 resultswithin the time period is included. Glucose Blood, POC 204(A) 60 - 200 mg/dL QC Media Lot # [id number] Lot# Expiration Date Blood Capillary blood specimen / Unknown 06/12/2024 9:38 AM EDT Cathleen Mo MD POINT OF CARE TEST ENTER/EDIT OR DERABLES Final Result * Referral to Pulmonology (06/07/2024) Steph PALOMINO OUTPATIENT REFERRAL ORDERABLES F inal Result * (ABNORMAL) Lactic Acid (04/02/2024 11:35 AM EST) Lactic Acid 3.2(HH) 0.5 - 2.0 mmol/L [facility] Comment:Critical value for t est(s):LACTA Results called to daisha back by: BARBARA Person calling: OLIVERWAN Date: 04/02/24Time: 1218 04/02/2024 11:3 5 AM EST 04/02/2024 11:37 AM EST us Generic External Data Provider LAB BLOOD ORDERAB LES Final Result [facility] [address] [place] [phone] * (ABNORMAL) VENOUS BLOOD GAS (04/02/2024 10:28 AM EST) VBG pH 7.39 7.32 - 7.43 [facility] Comment:METER #: [id number] additional_comment: CbAlbanom VBG PCO2 66 mmHg [facility] Comment:METER #: [id number] additional_comment: CbAlbanom VBG PO2 58 mmHg [facility] Comment:METER #: [id number] additional_comment: CbAlbanom VBG Base Excess 12.0 mmol/L [facility] Comment:METER #: [id number] additional_comment: CbAlbanom VBG HCO3 40(H) 22 - 26 mmol/L [facility] Comment:METER #: [id number] additional_comment: Cb[employer]banom O2 Sat, Juan 89.0 % [facility] Comment:METER #: [id number] additional_comment: CbAlbanom 04/02/2024 10:2 8 AM EST 04/02/2024 10:33 AM EST us Generic External Data Provider LAB BLOOD ORDERAB LES Final Result Performing Organization Address [facility] de Phone Number [facility] [address] [place] [phone] * (ABNORMAL) Lactic Acid (04/02/2024 9:10 AM EST) Lactic Acid 2.3(HH) 0.5 - 2.0 mmol/L [facility] Comment:Critical value for t est(s): lacta Results called to daisha back by:barbara Person calling:urperto Date: 04/02/24Time:950 04/02/2024 9:10 AM EST 04/02/2024 9:17 AM EST us Generic External Data Provider LAB BLOOD ORDERAB LES Final Result Performing Organization Address [facility] Phone Number [facility] [address] [place] [phone] * High Sensitivity Troponin I (04/02/2024 6:01 AM EST) TROPONIN I HIGH SENSITIVITY <2.7 <3.5 - 17.0 ng/L [facility] Comment:The [place]urtado high sens itivity Troponin-I results should beused in conjunction with other diagnostic information suchas ECG, clinical observations and information, and patientsymptoms to aid in the diagnosis of SC. 04/02/2024 6:01 AM EST 04/02/2024 6:05 AM EST us Generic External Data Provider LAB BLOOD ORDERAB LES Final Result Performing Organization Address [facility] de Phone Number [facility] [address] [place] [phone] * SARS-CoV-2 RNA, Influenza A/B, and RSV RNA, Ql NAAT (04/02/2024 6:01 AM EST) Influenza A PCR NEGATIVE Negative [facility] Influenza B PCR NEGATIVE Negative [facility] Resp Syncy Virus RNA Qual PCR NEGATIVE Negative [facility] SARS COV2 PCR NEGATIVE Negative [facility] Comment:All test results mus t be correlated with clinical findings.Negative results do not preclude SARS-CoV2, influenza Avirus, influenza B virus and/or RSV infectionand should not be used as the sole basis for treatment orother patient management decisions. Negative results must becombined with clinical observations, patient history, andepidemiological information.This test has not been evaluated for monitoring treatment ofinfection.This test has been authorized by the FDA under an EmergencyUse Authorization (EUA) for use by authorized laboratories.Testing performed on the [employer] GeneXpert utilizingreal-time RT-PCR.All SARS CoV2 and positive influenza A/B results arereported to [facility]. 04/02/2024 6:01 AM EST 04/02/2024 6:05 AM EST Generic External Data Provider LAB MICROBIOLOGY - GENERAL ORDERABLES Final Result Performing Organization Address City/[facility]/ZIP Co de Phone Number [facility] [address] [place] [phone] * Magnesium (04/02/2024 6:01 AM EST) Magnesium 2.1 1.6 - 2.6 mg/dL [facility] 04/02/2024 6:01 AM EST 04/02/2024 6:05 AM EST Generic External Data Provider LAB BLOOD ORDERAB LES Final Result Performing Organization Address [facility]/ZIP Co de Phone Number [facility] [address] [place] [phone] * Cologuard?? colon cancer screening (03/26/2024 11:10 AM EST) [facility] Cologuard Result Negative Negative 03/30/19 5:10 PM EST [facility] (CLIA #:[id number]) Comment: NEGATIVE TEST RESULT. A negative Cologuard result indicates a low likelihood that a colorectal cancer (CRC) or advanced adenoma (adenomatous polyps with more advanced pre-malignant features) ??is present. The chance that a person with a negative Cologuard test has a colorectal cancer is less than 1 in 1500 (negative predictive value >99.9%) or has an ??advanced adenoma is less than ??5.3% (negative predictive value 94.7%). These data are based on a prospective cross-sectional study of 10,000 individuals at average risk for colorectal cancer who were screened with both Cologuard and colonoscopy. (Martha Fiore. et al, N Engl J Med 2014;370(14):1286- 1297) The normal value (reference range) for this assay is negative. COLOGUARD RE-SCREENING RECOMMENDATION: Periodic colorectal cancer screening is an important part of preventive healthcare for asymptomatic individuals at average risk for colorectal cancer. ??Following a negative Cologuard result, the [place] [employer] Society and U.S. Multi-Society Task Force screening guidelines recommend a Cologuard re-screening interval of 3 years. References: [place] [employer] Guideline for Colorectal Cancer Screening: https://www.cancer.org/cancer/qgqdw-ybxcth-ehiezf/qmntgqrmo-cmgntceas-btqbrgo/ac s-rec ommendations.html.; Holland WARREN, Ivis PERDOMO, Stalin LarkinK, Colorectal Cancer Screening: Recommendations for Physicians and Patients from the U.S. Multi-Society Task Force on Colorectal Cancer Screening , Am J Gastroenterology 2017; 112:9264-6410. TEST DESCRIPTION: Composite algorithmic analysis of stool DNA-biomarkers with hemoglobin immunoassay. ?? Quantitative values of individual biomarkers are not reportable and are not associated with individual biomarker result reference ranges. Cologuard is intended for colorectal cancer screening of adults of either sex, 45 years or older, who are at average-risk for colorectal cancer (CRC). Cologuard has been approved for use by the U.S. FDA. The performance of Cologuard was established in a cross sectional study of average-risk adults aged 50-84. Cologuard performance in patients ages 45 to 49 years was estimated by sub-group analysis of near-age groups. Colonoscopies performed for a positive result may find as the most clinically significant lesion: colorectal cancer [4.0%], advanced adenoma (including sessile serrated polyps greater than or equal to 1cm diameter) [20%] or non- advanced adenoma [31%]; or no colorectal neoplasia [45%]. These estimates are derived from a prospective cross-sectional screening study of 10,000 individuals at average risk for colorectal cancer who were screened with both Cologuard and colonoscopy. (Martha Bailey et al, N Engl J Med 2014;370(14):5762-2317.) Cologuard may produce a false negative or false positive result (no colorectal cancer or precancerous polyp present at colonoscopy follow up). A negative Cologuard test result does not guarantee the absence of CRC or advanced adenoma (pre-cancer). The current Cologuard screening interval is every 3 years. ([place] [employer] Society and U.S. Multi-Society Task Force). Cologuard performance data in a 10,000 patient pivotal study using colonoscopy as the reference method can be accessed at the following location: www.Boyibang/results. Additional description of the Cologuard test process, warnings and precautions can be found at www.Novatekrd.com. Stool specimen (specimen) 03/26/2024 11:10 AM EST 03/27/2024 11:53 AM EST us Cathleen Mo MD LAB MOLECULAR DIAGNOSTICS ORDERA BLES Final Result [facility] (CLIA #:[id number]) [place] [place] [place] [address], * Albumin, Random Urine W/Creatinine (11/08/2023 1:45 PM EDT) Creatinine, Urine 67.59 mg/dL [facility] Microalbumin Urine <5.0 mg/L [facility] Microalbum Creatinine Ratio Ur TNP <30 ug/mg cr [facility] Comment:Unable to calculate albumin/creatinine ratio due to lowmicroalbumin or creatinine result. Urine 11/08/2023 1:45 PM EDT 11/08/2023 3:56 PM EDT us Cathleen Mo MD LAB URINE ORDERABLES Final Resul t [facility] [address] [place] [phone] * BI Mammogram Screening Tomosynthesis Bilateral (07/13/2023 11:10 AM EDT) Anatomical Region Laterality Modality Breast Bilateral Mammography 07/13/2023 11:1 0 AM EDT Narrative 07/18/2023 3:46 PM EDT ? [facility] [place] ? [address] ?[place] [address] ? Mammography Report ? Signed ? Patient: Joseph Mazariegos,Evelyn ?MR# ?? : [id number] ? : 1965 ?Acct:[id number] ? Age/Sex: 57 / F ?ADM Date: 04/17/24 ? Loc: HO.MAMMO ? Attending Dr: Cathleen Mo MD ? Ordering Physician: Cathleen Mo MD ?Results: 1Negative ? Date of Service: /17/24 ?Follow Up: 1 Year From Orig ?? inal Mammogram ? Procedure(s): MM tomosynthesis screening BI ?? Accession Number(s): [id number] ? cc: Cathleen Mo MD ? EXAMINATION: ?? MM SCREENING DIGITAL BREAST TOMOSYNTHESIS, BILATERAL ? CLINICAL INFORMATION: ? Screening. Asymptomatic. ? COMPARISON: ?? Mammography: This study is compared with prior exams dating back to ?? 2015. ? TECHNIQUE: ?? Digital breast tomosynthesis is performed in both the craniocaudal and ?? mediolateral oblique views along with computer-aided detection (CAD). ?? Synthesized 2D images are generated from the tomosynthesis. ? FINDINGS: ?? The breasts are heterogeneously dense, which may obscure small masses ?? (ACR BI-RADS breast composition Category c). ? There are no significant masses, abnormal calcifications, or other ?? abnormalities. ? MM/MM tomosynthesis screening BI ?? IMPRESSION: ?? No mammographic evidence of malignancy. ? ASSESSMENT: ? BI-RADS BI-RADS 1 - Negative ? RECOMMENDATION: ?? Routine annual mammography screening. ? 1 year F/U ? This examination should not preclude the clinical evaluation of a ?? suspicious palpable abnormality. ? This patient's information was entered into a reminder system with a ?? target due date for their next mammogram. ? Dictated By: ?Elis Rodriguez MD ? Signed By: ?<Electronically signed by Elis Rodriguez MD in OV> ? 07/18/23 1543 ? DD/ 1110 ? TD/TT: ? Lab Engineer: ? Procedure Note Sylvester Quick - 07/18/2023 Nathaly [facility] [address] [place], [place] [address] Mammography Report Signed Patient: Sandra Rose [facility]# : [id number] : 1965Acct:[id number] Age/Sex: 57 / FADM Date: 07/13/23 Loc: HO.MAMMO Attending Dr: Cathleen Mo MD Ordering Physician: Cathleen Mo MDResults: 1Negative Date of Service: 07/13/23Follow Up: 1 Year From [facility] ina Mammogram Procedure(s): MM tomosynthesis screening BI Accession Number(s): [id number] cc: Cathleen Mo MD EXAMINATION: MM SCREENING DIGITAL BREAST TOMOSYNTHESIS, BILATERAL CLINICAL INFORMATION: Screening. Asymptomatic. COMPARISON: Mammography: This study is compared with prior exams dating back to 2016. TECHNIQUE: Digital breast tomosynthesis is performed in both the craniocaudal and mediolateral oblique views along with computer-aided detection (CAD). Synthesized 2D images are generated from the tomosynthesis. FINDINGS: The breasts are heterogeneously dense, which may obscure small masses (ACR BI-RADS breast composition Category c). There are no significant masses, abnormal calcifications, or other abnormalities. MM/MM tomosynthesis screening BI IMPRESSION: No mammographic evidence of malignancy. ASSESSMENT: BI-RADS BI-RADS 1 - Negative RECOMMENDATION: Routine annual mammography screening. 1 year F/U This examination should not preclude the clinical evaluation of a suspicious palpable abnormality. This patient's information was entered into a reminder system with a target due date for their next mammogram. Dictated By: Elis Rodriguez MD Signed By: <Electronically signed by Elis Rodriguez MD in OV> 07/18/23 1543 DD/ 1110 TD/TT: Lab Engineer: Cathleen Mo MD IM BI PROCEDURES Final Result * HIV-1/2 Antigen and Antibodies, Fourth Generation, with Reflexes (05/12/2023 11:06 AM EST) HIV AB/AG Nonreactive Nonreactive [facility] Comment:HIV-1 p24 Ag and/or HIV-1/HIV-2 Ab not detected.A test result that is nonreactive does not exclude thepossibility of exposure to or infection with HIV-1 and/orHIV-2. Nonreactive results in this assay for individualswith prior exposure to HIV-1 and/or HIV-2 may be due toantigen and antibody levels that are below the limit ofdetection of this assay.The [employer]visible Sentinel HIV Ag/Ab Combo assay result andsupplemental assay results should be interpreted inconjunction with the patient's clinical presentation,history and other laboratory results. If the results areinconsistent with clinical evidence, additional testing issuggested to confirm the result. Blood Venous blood specimen / Unknown 05/12/2023 11:06 AM EST 05/12/2023 1:03 PM EST us Cathleen Mo MD LAB BLOOD ORDERABLES Final Resul t [facility] [address] [place] [phone] * Thinprep TIS PAP And HPV mRNA E6/E7 With Reflex To HPV 16,18/45 (04/29/2022 11:38 AM EST) Clinical Information: ROUTINE PAP Physician Practice [facility] LMP: NONE GIVEN [facility] [employer] [facility] [facility] Prev. PAP: NONE GIVEN [facility] Prev. BX: NONE GIVEN [facility] SOURCE: None given [facility] Statement Of Adequacy: Physician Practice [facility] Comment: Satisfactory for evaluation. Endocervical/transformation zone component present. Interpretation/ Result: Negative for intraepithelial lesion or malignancy. [facility] COMMENT: This Pap test has been evaluated with computer assisted technology. [facility] [place] [facility] Cytotechnologis t: [facility] Comment: SXA, CT(ASCP) CT screening location: [address] ??[address] Review Cytotechnologis t: [facility] Comment: JNA, CT(ASCP) CT screening location: [address] ??[phone] (Always Message) [facility] [place] [employer] Comment: EXPLANATORY NOTE: The Pap is a screening test for cervical cancer. It is not a diagnostic test and is subject to false negative and false positive results. It is most reliable when a satisfactory sample, regularly obtained, is submitted with relevant clinical findings and history, and when the Pap result is evaluated along with historic and current clinical information. HPV nRNA E6/E7 Not Detected Not Detected [facility] Comment: Methodology: Transplant Rn-Mediated Amplification This assay detects E6/E7 viral messenger RNA (mRNA) from 14 high-risk HPV types (16,18,31,33,35,39,45,51,52,56,58,59,66,68). Cervical sources are required for HPV testing. If a vaginal source from a patient who has had a total hysterectomy with removal of cervix was submitted, please contact the testing laboratory for alternative testing options. For additional information, please refer to http://education.SignNow/faq/RWV311a1 (This link if provided for information/ educational purposes only.) 04/29/2022 11:3 8 AM EST 04/30/2022 9:58 AM EST Narrative [facility] - 05/05/2022 2:36 PM EST FASTING: UNKNOWN Cathleen Mo MD LAB PATHOLOGY ORDERABLES Final R esult [facility] [address], [place] [phone] [facility] [place] [employer] [address] [facility], ([address]) [place] [address] from Last 3 Months or Most Recently Relevant to Health Maintenance Insurance [employer] [facility] STAND ADULT Care Teams Cloth Reeler Relationship Specialty Start Date End Date Cathleen Mo MD [address] [place] [address] PCP - General Family Medicine 03/28/18 Tad Baez, PharmD [address] [place] [address] Pharmacist Internal Medicine 03/16/24 Bhumi Monroe, BRIANNA [address] [place] [phone] Production Control SupervisorPrivate Branch Exchange Service Advisor 05/21/24 [facility] 05/04/17
--- OUTSIDE RECORDS SUMMARY | 2024-06-20 14:22 | XMS_ITS | Encounter Summary ---
Author Organization [employer] Address [address] [place] [address] Care Team Providers Care Edger Machine Operator Name Role Phone Cathleen Sears MD Primary Care Provider [phone] Tad Baez PharmD Unavailable [phone] Bhumi Monroe RN Unavailable [phone] Reason for Visit * Reason Comments Med Refill Encounter Details Date Type Department Care Team (Late st Contact Info) Description 05/28/2024 Refill [facility] [address] [place], [place] [phone] Cathleen Sears MD [address] [place], [place] [phone] Social History Tobacco Use Types Packs/Day Years [...] your housing situation today? I have farhad sing 01/10/[address] you li [...] Description 06/28/2024 10:30 AM EDT Nurse Only [facility] [address] [place] [address] documented as of this encounter Visit Diagnoses Not on filedocumented in this encounter Additional Health Concerns Assessment Noted Time PHQ-9 Depression Total Score: 2 07/22/19 24 10:34 AM EDT documented as of this encounter Care Teams Edger Machine Operator Relationship Specialty Start Date End Date Cathleen Sears MD [address] [place] [address] PCP - General Family Medicine 03/28/18 Tad Baez, PharmD [address] [place] [address] Pharmacist Internal Medicine 03/16/24 Bhumi Monroe RN [address] [place] [phone] Bird Cage AssemblerInternational Flight Attendant 05/21/24 [facility] 05/04/17 documented as of this encounter
--- OUTSIDE RECORDS SUMMARY | 2024-06-20 14:22 | XMS_ITS | Encounter Summary ---
Author Organization [employer] Address [address] [place] [address] Care Team Providers Care Dressmaker Or Tailor Name Role Phone Cathleen Sears MD Primary Care Provider [phone] Tad Baez PharmD Unavailable [phone] Bhumi Monroe RN Unavailable [phone] Reason for Visit * Reason Comments Med Refill Encounter Details Date Type Department Care Team (Late st Contact Info) Description 05/24/2024 Refill [facility] [address] [place], [place] [phone] Cathleen Sears MD [address] [place], [place] [phone] 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 Social History Tobacco Use Types Packs/Day Years [...] EDT Nurse Only [facility] [address] [place] [address] documented as of this encounter Visit Diagnoses Diagnosis 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
--- OUTSIDE RECORDS SUMMARY | 2024-06-20 14:22 | XMS_ITS | Encounter Summary ---
Author Organization [employer] Address [address] [place] [address] Care Team Providers Care Sports Trainer Name Role Phone Cathleen Sears MD Primary Care Provider [phone] Tad Baez PharmD Unavailable [phone] Bhumi Monroe RN Unavailable [phone] Encounter Details Date Type Department Care Team (Late st Contact Info) Description 06/20/2024 Telephone [facility] [address] [place], [place] [phone] Cathleen Sears MD [address] [place], [place] [phone] Social History Tobacco Use Types Packs/Day Years [...] is your housing situation today? I have fahrad shelby 01/10/[address] you [...] Encounter - Bhumi Monroe RN - 06/20/2024 1:14 PM EDT CM received v/m from ENT advising that they are not able to schedule an appointment for the patientas patient has no showed two previously scheduled visits. CM will forward to PCP to inform and consider placing referral to another office? Please review and advise. Thank you. documented in this encounter Plan of Treatment Upcoming Encounters Date Type Department Care Team (Late st Contact Info) Description 06/28/2024 10:30 AM EDT Nurse Only [facility] [address] [place] [phone] documented as of this encounter Visit Diagnoses Not on filedocumented in this encounter Additional Health Concerns Assessment Noted Time PHQ-9 Depression Total Score: 2 07/22/19 24 10:34 AM EDT documented as of this encounter Care Teams Sports Trainer Relationship Specialty Start Date End Date Cathleen Sears MD [address] [place] [address] PCP - General Family Medicine 03/28/18 Tad Baez, Sanjiv [address] [place] [phone] Pharmacist Internal Medicine 03/16/24 Bhumi Monroe RN [address] [place] [phone] Wildlife BiologistGreen Marketer 05/21/24 [facility] 05/04/17 documented as of this encounter
--- OUTSIDE RECORDS SUMMARY | 2024-06-20 14:22 | XMS_ITS | Encounter Summary ---
Author Organization [employer] [facility] Address [address] [facility] 7t [place] [address] Care Team Providers Care Compliance Lead Name Role Phone Cathleen Sears MD Primary Care Provider [phone] Tad Baez PharmD Unavailable [phone] Bhumi Monroe RN Unavailable [phone] Reason for Referral * Imaging (Routine) - Closed Specialty Diagnoses / Procedures Referred By Sina nicolas Referred To Contact Radiology Diagnoses Zayra's thyroiditis Preauricular mass Parotid mass Procedures CT Soft Tissue Neck w/ Contrast Cathleen Sears MD [address] [place] [address] Phone: tel: fax: [address] Phone: tel: fax: Referral ID Status Reason Start Date Expiration Date Visits Re quested Visits Authorized [id number] Closed 02/07/2024 02/06/2025 1 1 Encounter Details Date Type Department Care Team (Late st Contact Info) Description 02/04/2024 Orders Only [facility] [address] [place], [place] [phone] Cathleen Sears MD [address] [place], [place] [phone] Zayra's thyroiditis (Primary Dx); Preauricular mass; Parotid mass Social History Tobacco Use Types Packs/Day Years [...] your housing situation today? I have farhad heron 01/10/[address] you li [...] the past 12 months, has t he [employer], gas, oil or water [employer] threatened to shut off services in your [...] Description 06/28/2024 10:30 AM EDT Nurse Only [facility] [address] [place] [address] Scheduled Orders Name Type Priority Associated Diagnoses Orde r Schedule CT Soft Tissue Neck w/ Contrast Imaging Routine Zayra's thyroiditis Preauricular mass Parotid mass Expected: 02/07/2024, Expires: 02/06/2025 documented as of this encounter Visit Diagnoses Diagnosis Zayra's thyroiditis- Primary Chronic lymphocytic thyroiditis Preauricular mass Parotid mass Swelling, mass, or lump in head and neck documented in this encounter Additional Health Concerns Assessment Noted Time PHQ-9 Depression Total Score: 2 07/22/19 10:34 AM EDT documented as of this encounter Care Teams Compliance Lead Relationship Specialty Start Date End Date Cathleen Sears MD [address] [place] [address] PCP - General Family Medicine 03/28/18 Tad Baez, Sanjiv [address] [place] [address] Pharmacist Internal Medicine 03/16/24 Bhumi Monroe, BRIANNA [address] [place] [address] Information Security Systems InstructorPsychodramatist 05/21/24 [facility] 05/04/17 documented as of this encounter
--- OUTSIDE RECORDS SUMMARY | 2024-06-20 14:22 | XMS_ITS | Encounter Summary ---
Author Organization [employer] Address [address] [facility] [address] 7t [place] [address] Care Team Providers Care Contact Lens Assistant Name Role Phone Cathleen Sears MD Primary Care Provider [phone] Tad Baez PharmD Unavailable [phone] Bhumi Monroe RN Unavailable [phone] Encounter Details Date Type Department Care Team (Late st Contact Info) Description 06/12/[address] [facility] [address] [place], [place] [phone] Cathleen Sears MD [address] [place], [place] [phone] Social History Tobacco Use Types Packs/Day Years [...] Description 06/28/2024 10:30 AM EDT Nurse [address] [facility] [address] [place] [address] documented as of this encounter Procedures Procedure Name Priority Date/Time Associated Diagnosis Comments T4, FREE Routine 06/12/2024 2:10 PM EDT documented in this encounter Results * T4, Free (06/12/2024 2:10 PM EDT) Free T4 (Free Thyroxine) 1.13 0.71 - 1.85 ng/dL [facility] 06/12/2024 2:10 PM EDT 06/12/2024 4:45 PM EDT Cathleen Sears MD LAB BLOOD ORDERABLES Final Resul t [facility] [address] [place] [address] [phone] documented in this encounter Visit Diagnoses Not on filedocumented in this encounter Additional Health Concerns Assessment Noted Time PHQ-9 Depression Total Score: 2 07/22/19 24 10:34 AM EDT documented as of this encounter Care Teams Contact Lens Assistant Relationship Specialty Start Date End Date Cathleen Sears MD [address] [place] [address] PCP - General Family Medicine 03/28/18 Tad Baez, LaurenD [address] [place] [address] Pharmacist Internal Medicine 03/16/24 Bhumi Monroe, BRIANNA [address] [place] [address] Printed Circuit Board DrafterPortrait Photographer 05/21/24 [facility] 05/04/17 documented as of this encounter
--- OUTSIDE RECORDS SUMMARY | 2024-06-20 14:22 | XMS_ITS | Encounter Summary ---
Author Organization [employer] Address [address] [facility] [address] 7t [place] [address] Care Team Providers Care Covered Button Maker Name Role Phone Cathleen Sears MD Primary Care Provider [phone] Tad Baez PharmD Unavailable [phone] Bhumi Monroe RN Unavailable [phone] Reason for Visit * Reason Onset Date Comments Care Management 06/01/2024 C3CM- f/u call l Encounter Details Date Type Department Care Team (Late st Contact Info) Description 06/01/2024 Telephone [facility] MED[facility]INE [address] [place], [place] [phone] Cathleen Sears MD [address] [place], [place] [phone] Care Management (C3CM- f/u call lv) Social History Tobacco Use Types Packs/Day Years [...] Telephone Encounter - Bhumi Monroe RN - 06/01/2024 1:25 PM EST CM Bhumi Monroe RN placed outbound call to patient for follow up call. No answer at this time. LVM introducing herself from [facility] CM Department. Requested call back. CM reinforced direct contact information or CHW for any additional questions or concerns. Education provided on [facility] located in Lobby of [facility]. Patient provided with after-hours line for [facility], , which offer night time triage service and option to transfer to oncall provider if needed. CM will attempt another follow up call within 10 days. documented in this encounter Plan of Treatment Upcoming Encounters Date Type Department Care Team (Late st Contact Info) Description 06/28/2024 10:30 AM EDT Nurse Only [facility] MEDICINE [address] [place] [address] documented as of this encounter Visit Diagnoses Not on filedocumented in this encounter Additional Health Concerns Assessment Noted Time PHQ-9 Depression Total Score: 2 07/22/19 10:34 AM EDT documented as of this encounter Care Teams Covered Button Maker Relationship Specialty Start Date End Date Cathleen Sears MD [address] [place] [address] PCP - General Family Medicine 03/28/18 Tad Baez, LaurenD [address] [place] [address] Pharmacist Internal Medicine 03/16/24 Bhumi Monroe RN [address] [place] [address] Assembler FinalIncubator Machine Operator 05/21/24 [facility] 05/04/17 documented as of this encounter
--- OUTSIDE RECORDS SUMMARY | 2024-06-20 14:22 | XMS_ITS | Encounter Summary ---
Author Organization [employer] Address [address] [facility] [address] 7t [place] [address] Care Team Providers Care Middle School Band Teacher Name Role Phone Cathleen Sears MD Primary Care Provider [phone] Tad Baez PharmD Unavailable [phone] Bhumi Monroe RN Unavailable [phone] Encounter Details Date Type Department Care Team (Latest Contact Info) Description 06/12/2024 Travel Social History Tobacco Use Types Packs/Day Years [...] the past 12 months, has t he [employer], oil or water [employer] threatened to shut off services in your [...] AM EDT Nurse Only [facility] [address] [place] [address] documented as of this encounter Visit Diagnoses Not on filedocumented in this encounter Additional Health Concerns Assessment Noted Time PHQ-9 Depression Total Score: 2 07/22/19 24 10:34 AM EDT documented as of this encounter Care Teams Middle School Band Teacher Relationship Specialty Start Date End Date Cathleen Sears MD [address] [place] [address] PCP - General Family Medicine 03/28/18 Tad Baez, LaurenD [address] [place] [address] Pharmacist Internal Medicine 03/16/24 Bhumi Monroe RN [address] [place] [address] Utility LinemanRoom Service Food Server 05/21/24 [facility] 05/04/17 documented as of this encounter
--- OUTSIDE RECORDS SUMMARY | 2024-06-20 14:23 | XMS_ITS | Encounter Summary ---
Author Organization [employer] Address [address] [facility] [address] 7t [place] [address] Care Team Providers Care Line Patroller Name Role Phone Cathleen Sears MD Primary Care Provider [phone] Ivett Smith RN Unavailable [phone] Tad Baez PharmD Unavailable [phone] Bhumi Monroe RN Unavailable [phone] Encounter Details Date Type Department Care Team (Late st Contact Info) Description 09/08/2023 Telephone [facility] [address] [place], [place] [phone] Cathleen Sears MD [address] [place], [place] [phone] Social History Tobacco Use Types Packs/Day Years Used Date Smoking Tobacco: Some Days Cigarettes Passive Smoke Exposure: Current Smokeless Tobacco: Never Alcohol Use Standard Drinks/Week Comments Never 0 (1 standard drink = 0.6 oz pur e alcohol) Depression Answer Date Recorded Patient Health Questionnaire-9 [...] before you got money to buy more: Never True 01/10/2023 Within the past 12 months,th e food you bought just didn't last and you didn't have enough money to get more: Never True Transportation Answer Date Recorded In the past 12 months, has l ack of transportation kept you from medical appts, meetings, work or from getting things needed for daily living? No 01/10/2023 Utilities Answer Date Recorded In the past 12 months, has t he electric, gas, oil or water company threatened to shut off services in your home? No 01/10/2023 Depression Answer Date Recorded Patient Health Questionnaire-2 Score 1 07/22/2023 Comments Unknown Sex and Gender Information Value [...] Description 06/28/2024 10:30 AM EDT Nurse Only [facility] [address] [place] [address] documented as of this encounter Visit Diagnoses Not on filedocumented in this encounter Additional Health Concerns Assessment Noted Time PHQ-9 Depression Total Score: 2 07/22/19 24 10:34 AM EDT documented as of this encounter Care Teams Line Patroller Relationship Specialty Start Date End Date Cathleen Sears MD [address] [place] [address] PCP - General Family Medicine 03/28/18 Ivett Smith RN [address] [place] [address] Registered Nurse Case Management 12/30/22 01/24/24 Tad Baez, Sanjiv [address] [place] [address] Pharmacist Internal Medicine 03/16/24 Bhumi Monroe RN [address] [place] [address] Ict Sales RepresentativeCarpet Repairer 05/21/24 [facility] 05/04/17 documented as of this encounter
--- OUTSIDE RECORDS SUMMARY | 2024-06-20 14:23 | XMS_ITS | Encounter Summary ---
Author Organization [employer] Address [address] 7t [place] [address] Care Team Providers Care Body Technician Name Role Phone Cathleen Sears MD Primary Care Provider [phone] Ivett Smith RN Unavailable [phone] Tad Baez PharmD Unavailable [phone] Bhumi Monroe RN Unavailable [phone] Encounter Details Date Type Department Care Team (Late st Contact Info) Description 07/27/2023 Orders Only [facility] [address] [place], [place] [phone] Cathleen Sears MD [address] [place], [place] [phone] Hypertension associated with diabetes (CMS/HCC) (CMS/HCC) (Primary Dx); Leg swelling Social History Tobacco Use Types Packs/Day Years [...] Description 06/28/2024 10:30 AM EDT Nurse Only [facility] [address] [place] [address] documented as of this encounter Procedures Procedure Name Priority Date/Time Associated Diagnosis Comments TSH W/REFLEX TO FT4 Routine 08/03/2023 1 :18 PM EDT Leg swelling BASIC METABOLIC PANEL Routine 08/03/2023 1:18 PM EDT Leg swelling documented in this encounter Results * TSH with Reflex to Free T4 (08/03/2023 1:18 PM EDT) TSH reflex Free T4 0.57 0.32 - 4.0 uIU/mL [facility] Blood 08/03/2023 1:18 PM EDT 08/03/2023 4:15 PM EDT us Cathleen Sears MD LAB BLOOD ORDERABLES Final Resul t [facility] [address] [place] [address] [phone] * (ABNORMAL) Basic Metabolic Panel (08/03/2023 1:18 PM EDT) Sodium 142 135 - 145 mmol/L [facility] Potassium 3.4 3.3 - 5.1 mmol/L [facility] Chloride 93(L) 96 - 108 mmol/L [facility] Carbon Dioxide 36(H) 22 - 29 mmol/L [facility] Anion Gap 16 12 - 20 [facility] Urea Nitrogen (BUN) 11 9 - 16 mg/dL [facility] Creatinine, Serum 0.62 0.5 - 1.4 mg/dL [facility] Estimated Glomerular Filt Rate >60 [facility] Comment:NOTE: For -Am erican individuals, multiply the result by 1.210.Chronic Kidney Disease: Estimated GFR < 60 mL/min/1.15a5Ylnwiv Kidney Disease: Estimated GFR < 15 mL/min/1.73m2 Glucose 130(H) 60 - 115 mg/dL [facility] Calcium 10.4(H) 8.4 - 10.2 mg/dL [facility] Blood Venous blood specimen / Unknown 08/03/2023 1:18 PM EDT 08/03/2023 4:15 PM EDT Cathleen Sears MD LAB BLOOD ORDERABLES Final Resul t [facility] [address] [place] [address] [phone] documented in this encounter Visit Diagnoses Diagnosis Hypertension associated with diabetes (CMS/HCC)- Primary Unspecified essential hypertension Leg swelling Swelling of limb documented in this encounter Additional Health Concerns Assessment Noted Time PHQ-9 Depression Total Score: 2 07/22/19 24 10:34 AM EDT documented as of this encounter Care Teams Body Technician Relationship Specialty Start Date End Date Cathleen Sears MD [address] [place] [address] PCP - General Family Medicine 03/28/18 Ivett Smith, RN [address] [place] [address] Registered Nurse Case Management 12/30/22 01/24/24 Tad Baez PharmD [address] [place] [address] Pharmacist Internal Medicine 03/16/24 Bhumi Monroe, BRIANNA [address] [place] [address] Production Machine Computer OperatorTool Design Checker 05/21/24 [facility] 05/04/17 documented as of this encounter
--- OUTSIDE RECORDS SUMMARY | 2024-06-20 14:23 | XMS_ITS | Encounter Summary ---
Author Organization [employer] Address [address] 7t [place] [address] Care Team Providers Care Information Technology Project Manager Name Role Phone Cathleen Sears MD Primary Care Provider [phone] Ivett Smith RN Unavailable [phone] Tad Baez PharmD Unavailable [phone] Bhumi Monroe RN Unavailable [phone] Encounter Details Date Type Department Care Team (Late Contact Info) Description 04/12/2022 Abstract [facility] [address] [place] [address] Cathleen Sears MD [address] [place], [place] [phone] Social History Tobacco Use Types Packs/Day Years [...] suspected to have Coronavirus/COVID-19? No / Unsure 04/07/2022 2:27 PM EST documented as of this encounter Plan of Treatment Upcoming Encounters Date Type Department Care Team (Late Contact Info) Description 06/28/2024 10:30 AM EDT Nurse Only [facility] [address] [place], [place] [phone] documented as of this encounter Procedures Procedure Name Priority Date/Time Associated Diagnosis Comments THINPREP PAP AND HPV DNA REFLEX GENOTYPES 16,18 Routine 02/07/2019 12:00 AM EST documented in this encounter Results * Thinprepr PAP And HPV DNA Reflex Genotypes 16,18 (02/07/2019 12:00 AM EST) us Historical Provider MD LAB PATHOLOGY ORDERABLES Final Result Performing Organization Address City/State/[facility] Co de Phone Number [facility] [address] [place] [address] [phone] documented in this encounter Visit Diagnoses Not on filedocumented in this encounter Care Teams Information Technology Project Manager Relationship Specialty Start Date End Date Cathleen Sears MD [address] [place] [address] PCP - General Family Medicine 03/28/18 Ivett Smith RN [address] [place] [address] Registered Nurse Case Management 12/30/22 01/24/24 Tad Baez, Sanjiv [address] [place] [address] Pharmacist Internal Medicine 03/16/24 Bhumi Monroe RN [address] [place] [address] Auto Parts Counter PersonDust Operator 05/21/24 [facility] 05/04/17 documented as of this encounter
--- OUTSIDE RECORDS SUMMARY | 2024-06-20 14:23 | XMS_ITS | Encounter Summary ---
Author Organization [employer] Address [address] 7t [place] [address] Care Team Providers Care Analog Device Designer Name Role Phone Cathleen Sears MD Primary Care Provider [phone] Tad Baez PharmD Unavailable [phone] Bhumi Monroe RN Unavailable [phone] Reason for Visit * Reason Onset Date Comments Pt1 04/10/2024 Encounter Details Date Type Department Care Team (Late st Contact Info) Description 04/10/2024 Telephone [facility] [address] [place], [place] [phone] Cathleen Sears MD [address] [place], [place] [phone] Pt1 Social History Tobacco Use Types Packs/Day Years [...] encounter Miscellaneous Notes * Telephone Encounter - Vinayak Dowd - 04/10/2024 11:22 AM EST Patient calling requesting PT1 Home Address verified: Y/N: Yes Provider name or facility name: [address] [place] [address] [address] [address] [facility] Escort needed: Y/N: No Do you have a wheelchair: Y/N: No If yes- Manual or electric: Visits: (3 x Month) Pt has Apt this Tuesday documented in this encounter Plan of Treatment Upcoming Encounters Date Type Department Care Team ([facility] st Contact Info) Description 06/28/2024 10:30 AM EDT Nurse Only [facility] [address] [place] [address] documented as of this encounter Visit Diagnoses Not on filedocumented in this encounter Additional Health Concerns Assessment Noted Time PHQ-9 Depression Total Score: 2 07/22/19 24 10:34 AM EDT documented as of this encounter Care Teams Analog Device Designer Relationship Specialty Start Date End Date Cathleen Sears MD [address] [place] [address] PCP - General Family Medicine 03/28/18 Tad Baez, LaurenD [address] [place] [address] Pharmacist Internal Medicine 03/16/24 Bhumi Monroe, BRIANNA [address] [place] [address] Leather SorterPlunger Machine Operator 05/21/24 [facility] 05/04/17 documented as of this encounter
--- OUTSIDE RECORDS SUMMARY | 2024-06-20 14:23 | XMS_ITS | Encounter Summary ---
Author Organization [employer] Address [address] 7t [place] [address] Care Team Providers Care Security Systems Installer Name Role Phone Cathleen Sears MD Primary Care Provider [phone] Ivett Smith RN Unavailable [phone] Tad Baez PharmD Unavailable [phone] Bhumi Monroe RN Unavailable [phone] Reason for Visit * Reason Onset Date Comments FYI 08/16/2023 Encounter Details Date Type Department Care Team (Late st Contact Info) Description 08/16/2023 Telephone [facility] [address] [place], [place] [phone] Cathleen Sears MD [address] [place], [place] [phone] FYI Social History Tobacco Use Types Packs/Day Years [...] encounter Miscellaneous Notes * Telephone Encounter - Janki Baldwin - 08/16/2023 9:28 AM EDT TC from Norberto Collazo calling to inform pt is currently at [facility] due to shortness of breath . documented in this encounter Plan of Treatment Upcoming Encounters Date Type Department Care Team (Late st Contact Info) Description 06/28/2024 10:30 AM EDT Nurse Only [facility] [address] [place] [address] documented as of this encounter Visit Diagnoses Not on filedocumented in this encounter Additional Health Concerns Assessment Noted Time PHQ-9 Depression Total Score: 2 07/22/19 24 10:34 AM EDT documented as of this encounter Care Teams Security Systems Installer Relationship Specialty Start Date End Date Cathleen Sears MD [address] [place] [address] PCP - General Family Medicine 03/28/18 Ivett Smith RN [address] [place] [address] Registered Nurse Case Management 12/30/22 01/24/24 Tad Baez, Sanjiv [address] [place] [address] Pharmacist Internal Medicine 03/16/24 Bhumi Monroe RN [address] [place] [address] Senior Javascript EngineerMental Health Advanced Practice Nurse 05/21/24 [facility] 05/04/17 documented as of this encounter
--- OUTSIDE RECORDS SUMMARY | 2024-06-20 14:23 | XMS_ITS | Encounter Summary ---
Author Organization [employer] Address [address] [facility] 7t [place] [address] Care Team Providers Care Production Tech Name Role Phone Cathleen Sears MD Primary Care Provider [phone] Ivett Smith RN Unavailable [phone] Tad Baez PharmD Unavailable [phone] Bhumi Monroe RN Unavailable [phone] Encounter Details Date Type Department Care Team (Late st Contact Info) Description 03/19/2022 Orders Only [facility] [address] [place] [address] Laura Nova LPN Social History Tobacco Use Types Packs/Day Years [...] Description 06/28/2024 10:30 AM EDT Nurse Only [facility]INE [address] [place], [place] [phone] documented as of this encounter Visit Diagnoses Not on filedocumented in this encounter Care Teams Production Tech Relationship Specialty Start Date End Date Cathleen Sears MD [address] [place], [place] [phone] PCP - General Family Medicine 03/28/18 Ivett Smith, RN [address] [place] [address] Registered Nurse Case Management 12/30/22 01/24/24 Tad Baez, Sanjiv [address] [place] [address] Pharmacist Internal Medicine 03/16/24 Bhumi Monroe, BRIANNA [address] [place] [address] [employer] Welding Machine OperatorConvex Grinder Operator 05/21/24 [facility] 05/04/17 documented as of this encounter
== END 2024-06-20 12:33 | disposition home or self-care (01) ==
LOC: HO.HGI 11:55
PROVIDERS: PCP Family Medicine; Visit Provider Nurse Practitioner
DX: K21.9 Gastro-esophageal reflux disease without esophagitis (principal); K70.30 Alcoholic cirrhosis of liver without ascites; K59.03 Drug induced constipation; T40.2X5A Adverse effect of other opioids, initial encounter
CPT/HCPCS: 99213

== ENCOUNTER → 2024-06-20 11:54 | Outpatient (BNVA) | payer MEDICAID, SELFPAY | PROVIDERS: PCP Family Medicine; Visit Provider Nurse Practitioner | DX: K21.9 Gastro-esophageal reflux disease without esophagitis (principal); K70.30 Alcoholic cirrhosis of liver without ascites; K59.03 Drug induced constipation; T40.2X5A Adverse effect of other opioids, initial encounter | CPT/HCPCS: 99212 ==

== ENCOUNTER 2024-07-12 13:44 | Outpatient (REF) | payer MEDICAID, SELFPAY ==
--- OUTSIDE RECORDS SUMMARY | 2024-07-12 16:49 | XMS_ITS | Encounter Summary ---
Author Organization [employer] Address [address] [facility] 7t [place] [address] Care Team Providers Care Gripper Machine Operator Name Role Phone Cathleen Sears MD Primary Care Provider Ivett Smith RN Unavailable [phone] Tad Baez PharmD Unavailable [phone] Bhumi Monroe RN Unavailable [phone] Encounter Details Date Type Department Care Team (Late Contact Info) Description 04/12/2022 Abstract [facility] [address] [place], [place] [phone] Cathleen Sears MD [address] [place], [place] [phone] Social History Tobacco Use Types Packs/Day Years [...] Department Care Team (Late Contact Info) Description 08/16/2024 1:45 PM EDT Office Visit [facility] [address] [place], [place] [phone] Silvia Cameron, OD [address] [place] [address] documented as of this encounter Procedures Procedure Name Priority Date/Time Associated Diagnosis Comments THINPREP PAP AND HPV DNA REFLEX GENOTYPES 16,18 Routine 02/07/2019 12:00 AM EST documented in this encounter Results * Thinprepr PAP And HPV DNA Reflex Genotypes 16,18 (02/07/2019 12:00 AM EST) us Historical Provider MD LAB PATHOLOGY ORDERABLES Final Result [facility] [address] [place] [address] [phone] documented in this encounter Visit Diagnoses Not on filedocumented in this encounter Care Teams Gripper Machine Operator Relationship Specialty Start Date End Date Cathleen Sears MD [address] [place] [address] PCP - General Family Medicine 03/28/18 Ivett Smith RN [address] [place] [address] Registered Nurse Case Management 12/30/22 01/24/24 Tad Baez, LaurenD [address] [place] [address] Pharmacist Internal Medicine 03/16/24 Bhumi Monroe, BRIANNA [address] [place] [address] Ultrasound SpecialistHealth Informatics Specialist 05/21/24 [facility] 05/04/17 documented as of this encounter
--- OUTSIDE RECORDS SUMMARY | 2024-07-12 16:49 | XMS_ITS | Encounter Summary ---
Author Organization [employer] Address [address] [place] [address] Care Team Providers Care Director Of Student Life Name Role Phone Cathleen Sears MD Primary Care Provider [phone] Tad Baez PharmD Unavailable [phone] Bhumi Monroe RN Unavailable [phone] Reason for Visit * Reason Onset Date Comments Care Management 07/09/2024 C3CM- f/u call Encounter Details Date Type Department Care Team (Late st Contact Info) Description 07/09/2024 Telephone [facility] MEDICINE [address] [place] [address] Cathleen Sears MD [address] [place] [address] Care Management (C3CM- f/u call) Social History Tobacco Use Types Packs/Day Years Used Date Smoking Tobacco: Some Days Cigarettes 1.9 36.3 Started: 1988 Passive Smoke Exposure: Current Smokeless [...] Telephone Encounter - Bhumi Monroe RN - 07/09/2024 12:36 PM EDT CM Bhumi Monroe RN placed outbound call to patient. Patient's name, and address confirmed. Patient seen at [facility] Walk in [place] on 07/04/24 for COPD exacerbation. Patient states she is taking the doxycycline and prednisone as prescribed. Per patient, medications have been working well for her. She states her symptoms have improved. She denies any difficulty breathing at this time. Patient states an employee from [employer] just left her home. She states she has been having some difficulties withher current STAMP CLASSIFIER. Per patient, STAMP CLASSIFIER has not been in to see her or to assist her with getting to her medical appts. Per patient, has missed several visits for this reason. Patient states she was informed by the [employer] employee that they will need for her current STAMP CLASSIFIER to sign paperwork stating that shewill no longer be working with the patient so that she can apply for a new STAMP CLASSIFIER. Patient expresses that she is worried that the services will be terminated as this is the second instance where this has happened. CM reminded patient that she missed the US elastography and CT neck. CM did let patient know that these visits have already been rescheduled 3-4x. CM provided patient with the [facility] Centralized Scheduling number and advised that she reschedule these visits to dates/times that are most convenient for her. Advised that she please f/u with CM/CHW with appt details so that PT1 can be set up.She agrees. CM advised patient that visit with ENT could not be scheduled due to multiple no shows.Patient verbalizes understanding and states that she cannot go out to [place] as this is too far a distance. She is asking that the office please re consider as her reason for not attending was outof her control. CM will notify PCP and will f/u with patient. No further questions or concerns. CM reinforced direct contact information or CHW for any additional questions or concerns. Education provided on [facility] Ur[facility] Care located in [facility] of [facility]. Patient provided with after-hours line for [facility], , which offer night time triage service and option to transfer to boot and saddle repair person provider if needed. Patient verbalizes understanding, and able to repeat back to specifications writer. A follow up call will be placed within 10 days, patientagrees with plan. documented in this encounter Plan of Treatment Upcoming Encounters Date Type Department Care Team (Late st Contact Info) Description 08/16/2024 1:45 PM EDT Office Visit [facility] OPTOMETRY [address] [place], [place] [phone] Silvia Cameron, OD [address] [place], [place] [phone] documented as of this encounter Visit Diagnoses Not on filedocumented in this encounter Additional Health Concerns Assessment Noted Time PHQ-9 Depression Total Score: 2 07/22/19 24 10:34 AM EDT documented as of this encounter Care Teams Director Of Student Life Relationship Specialty Start Date End Date Cathleen Sears MD [address] [place] [address] PCP - General Family Medicine 03/28/18 Tad Baez PharmD [address] [place] [address] Pharmacist Internal Medicine 03/16/24 Bhumi Monroe, BRIANNA [address] [place] [address] Physician Office NurseThermostat Repairer 05/21/24 [facility] 05/04/17 documented as of this encounter
--- OUTSIDE RECORDS SUMMARY | 2024-07-12 16:49 | XMS_ITS | Encounter Summary ---
Author Organization [email or web address] Address [address] [place] [address] Care Team Providers Care Cash Clerk Name Role Phone Cathleen Sears MD Primary Care Provider [phone] Tad Baez PharmD Unavailable [phone] Bhumi Monroe RN Unavailable [phone] Reason for Visit * Reason Onset Date Comments Pt1 04/10/2024 Encounter Details Date Type Department Care Team (Late st Contact Info) Description 04/10/2024 Telephone [facility] MEDICINE [address] [place], [place] [phone] Cathleen Sears MD [address] [place], [place] [phone] Pt1 Social History Tobacco Use Types Packs/Day [...] Y/N: Yes Provider name or facility name: [address] [place] [address] [address] [address] [facility] Escort needed: Y/N: No Do you have a wheelchair: Y/N: No If yes- Manual or electric: Visits: (3 x Month) Pt has Apt this Tuesday documented in this encounter Plan of Treatment Upcoming Encounters Date Type Department Care Team ([facility] st Contact Info) Description 08/16/2024 1:45 PM EDT Office Visit [facility] OPTOMETRY [address] [place] [address] Bearaleigh Silvia, OD [address] [place] [address] documented as of this encounter Visit Diagnoses Not on filedocumented in this encounter Additional Health Concerns Assessment Noted Time PHQ-9 Depression Total Score: 2 07/22/19 24 10:34 AM EDT documented as of this encounter Care Teams Cash Clerk Relationship Specialty Start Date End Date Cathleen Sears MD [address] [place] [address] PCP - General Family Medicine 03/28/18 Tad Baez, PharmD [address] [place] [address] Pharmacist Internal Medicine 03/16/24 Bhumi Monroe, BRIANNA [address] [place] [address] Community Support SpecialistPaleology Professor 05/21/24 [facility] 05/04/17 documented as of this encounter
--- OUTSIDE RECORDS SUMMARY | 2024-07-12 16:49 | XMS_ITS | Encounter Summary ---
Author Organization [facility] Address [address] 7t [place] [address] Care Team Providers Care Skirt Maker Name Role Phone Cathleen Sears MD Primary Care Provider [phone] Tad Baez PharmD Unavailable [phone] Bhumi Monroe RN Unavailable [phone] Reason for Referral * Imaging (Routine) - Closed Specialty Diagnoses / Procedures Referred By Sina nicolas Referred To Contact Radiology Diagnoses Zayra's thyroiditis Preauricular mass Parotid mass Procedures CT Soft Tissue Neck w/ Contrast Cathleen Sears MD [address] [place] [address] Phone: tel: fax: [address] Phone: tel: fax: Referral ID Status Reason Start Date Expiration Date Visits Re quested Visits Authorized [id number] Closed 02/07/2024 02/06/2025 1 1 Encounter Details Date Type Department Care Team (Late st Contact Info) Description 02/04/2024 Orders Only [facility] MEDICINE [address] [place], [place] [phone] Cathleen Sears MD [address] [place], [place] [phone] Zayra's thyroiditis (Primary Dx); Preauricular mass; Parotid [...] the past 12 months, has t he [employer], gas, oil or water [employer] threatened to shut off services in your [...] Description 08/16/2024 1:45 PM EDT Office Visit [facility] OPTOMETRY [address] [place] [address] Silvia Cameron, OD [address] [place] [address] Scheduled Orders Name Type Priority Associated Diagnoses [...] documented as of this encounter Care Teams Skirt Maker Relationship Specialty Start Date End Date Cathleen Sears MD [address] [place] [address] PCP - General Family Medicine 03/28/18 Tad Baez, LaurenD [address] [place] [address] Pharmacist Internal Medicine 03/16/24 Bhumi Monroe, BRIANNA [address] [place] [address] Territory SupervisorHand Bunch Maker 05/21/24 [facility] 05/04/17 documented as of this encounter
--- OUTSIDE RECORDS SUMMARY | 2024-07-12 16:49 | XMS_ITS | Encounter Summary ---
Author Organization [employer] Address [address] [facility] [address] 7t [place] [address] Care Team Providers Care Nuclear Monitoring Technician Name Role Phone Cathleen Sears MD Primary Care Provider [phone] Ivett Smith RN Unavailable [phone] Tad Baez PharmD Unavailable [phone] Bhumi Monroe RN Unavailable [phone] Encounter Details Date Type Department Care Team (Late st Contact Info) Description 03/19/2022 Orders Only [facility] MED & PEDS [address] [place] [address] Laura Nova LPN Social History Tobacco Use [...] Description 08/16/2024 1:45 PM EDT Office Visit [facility] OPTOMETRY [address] [place], [place] [phone] Silvia Cameron, OD [address] [place] [address] documented as of this encounter Visit Diagnoses Not on filedocumented in this encounter Care Teams Nuclear Monitoring Technician Relationship Specialty Start Date End Date Cathleen Sears MD [address] [place] [address] PCP - General Family Medicine 03/28/18 Ivett Smith, BRIANNA [address] [place] [address] Registered Nurse Case Management 12/30/22 01/24/24 Tad Baez, Sanjiv [address] [place] [address] Pharmacist Internal Medicine 03/16/24 Bhumi Monroe RN [address] [place] [address] Manager ReimbursementFlying Teacher 05/21/24 [facility] 05/04/17 documented as of this encounter
--- OUTSIDE RECORDS SUMMARY | 2024-07-12 16:49 | XMS_ITS | Encounter Summary ---
Author Organization [employer] Address [address] [place] [address] Care Team Providers Care Display Associate Name Role Phone Cathleen Sears MD Primary Care Provider [phone] Tad Baez PharmD Unavailable [phone] Bhumi Monroe RN Unavailable [phone] Reason for Visit * Reason Comments Care Coordination PT1 Encounter Details Date Type Department Care Team (Latest Contact Info) Description 07/09/2024 Patient Outreach [facility] MEDICINE [address] [place], [place] [phone] Cathleen Sears MD [address] [place], [place] [phone] Care Coordination (PT1) Social History Tobacco Use [...] encounter Progress Notes * Nicolasa Herrera - 07/09/2024 12:36 PM EDT CHW Nicolasa Herrera scheduled PT1 for appt on 07/12/24 145pm to [facility] speech and hearing. CHW will remind patient of appt. documented in this encounter Plan of Treatment Upcoming Encounters Date Type Department Care Team (Late st Contact Info) Description 08/16/2024 1:45 PM EDT Office Visit [facility] OPTOMETRY [address] [place] [address] Silvia Cameron, OD [address] [place] [address] documented as of this encounter Visit Diagnoses Not on filedocumented in this encounter Additional Health Concerns Assessment Noted Time PHQ-9 Depression Total Score: 2 07/22/19 24 10:34 AM EDT documented as of this encounter Care Teams Display Associate Relationship Specialty Start Date End Date Cathleen Sears MD [address] [place] [address] PCP - General Family Medicine 03/28/18 Tad Baez, LaurenD [address] [place] [address] Pharmacist Internal Medicine 03/16/24 Bhumi Monroe, RN [address] [place] [address] Database Marketing ManagerMotorboat Operator 05/21/24 [facility] 05/04/17 documented as of this encounter
--- OUTSIDE RECORDS SUMMARY | 2024-07-12 16:49 | XMS_ITS | Encounter Summary ---
Author Organization [employer] Address [address] [place] [address] Care Team Providers Care Chemistry Specialist Name Role Phone Cathleen Sears MD Primary Care Provider [phone] Ivett Smith RN Unavailable [phone] Tad Baez PharmD Unavailable [phone] Bhumi Monroe RN Unavailable [phone] Encounter Details Date Type Department Care Team (Late st Contact Info) Description 07/27/2023 Orders Only [facility] MEDICINE [address] [place], [place] [phone] Cathleen Sears MD [address] [place], [place] [phone] Hypertension associated with diabetes (CMS/HCC) (CMS/HCC) (Primary [...] Description 08/16/2024 1:45 PM EDT Office Visit [facility] OPTOMETRY [address] [place] [address] TarSilvia storey, OD [address] [place] [address] documented as of this encounter Procedures Procedure Name Priority Date/Time Associated Diagnosis Comments TSH W/REFLEX TO FT4 Routine 08/03/2023 1 :18 PM EDT Leg swelling BASIC METABOLIC PANEL Routine 08/03/2023 1:18 PM EDT Leg swelling documented in this encounter Results * TSH with Reflex to Free T4 (08/03/2023 1:18 PM EDT) TSH reflex Free T4 0.57 0.32 - 4.0 uIU/mL [facility] Blood 08/03/2023 1:18 PM EDT 08/03/2023 4:15 PM EDT us Cathleen Sakurai MD LAB BLOOD ORDERABLES Final Resul t Performing Organization Address [facility] de Phone Number [facility] [address] [place] [address] [phone] * (ABNORMAL) Basic Metabolic Panel (08/03/2023 1:18 PM EDT) Sodium 142 135 - 145 mmol/L [facility] Potassium 3.4 3.3 - 5.1 mmol/L [facility] Chloride 93(L) 96 - 108 mmol/L [facility] Carbon Dioxide 36(H) 22 - 29 mmol/L [facility] Anion Gap 16 12 - 20 [facility] Urea Nitrogen (BUN) 11 9 - 16 mg/dL [facility] Creatinine, Serum 0.62 0.5 - 1.4 mg/dL [facility] Estimated Glomerular Filt Rate >60 [facility] Comment:NOTE: For -Am erican individuals, multiply the result by 1.210.Chronic Kidney Disease: Estimated GFR < 60 mL/min/1.43i1[place] Kidney Disease: Estimated GFR < 15 mL/min/1.73m2 Glucose 130(H) 60 - 115 mg/dL [facility] Calcium 10.4(H) 8.4 - 10.2 mg/dL [facility] Blood Venous blood specimen / Unknown 08/03/2023 1:18 PM EDT 08/03/2023 4:15 PM EDT Cathleen Sears MD LAB BLOOD ORDERABLES Final Resul t Performing Organization Address [facility] Co de Phone Number [facility] [address] [place] [address] [phone] documented in this encounter Visit Diagnoses Diagnosis Hypertension associated with diabetes (CMS/HCC)- Primary Unspecified essential hypertension Leg swelling Swelling of limb documented in this encounter Additional Health Concerns Assessment Noted Time PHQ-9 Depression Total Score: 2 07/22/19 24 10:34 AM EDT documented as of this encounter Care Teams Chemistry Specialist Relationship Specialty Start Date End Date Cathleen Sears MD [address] [place] [address] PCP - General Family Medicine 03/28/18 Ivett Smith, RN [address] [place] [address] Registered Nurse Case Management 12/30/22 01/24/24 Tad Baez, Sanjiv [address] [place] [address] Pharmacist Internal Medicine 03/16/24 Bhumi Monroe, BRIANNA [address] [place] [address] Travel Accommodations RaterDrop Hammer Mechanic 05/21/24 [facility] 05/04/17 documented as of this encounter
--- OUTSIDE RECORDS SUMMARY | 2024-07-12 16:49 | XMS_ITS | Clinical Summary ---
Author Organization [employer] Address [address] [facility] [address] [place] [address] Care Team Providers Care Sliver Handler Name Role Phone Cathleen Mo MD Primary Care Provider [phone] Tad Baez PharmD Unavailable [phone] Bhumi Monroe RN Unavailable [phone] Allergies Active Allergy Reactions Criticality Noted [...] at bedtime for constipation. 60 capsule 3 024 Active senna (Senokot) 8.6 MG tablet TAKE 2 TABLETS BY MOUTH AT BEDTIME NEEDED FOR CONSTIPATION 180 tablet 3 024 Active Blood Glucose Monitoring Suppl (FreeStyle Lite) w/Device kit 1 each 2 times daily. Use to check blood sugar two times per day 1 kit 024 Active FreeStyle lancets 1 each by Other [...] hours as needed for cravings. 110 each Active sertraline (Zoloft) 100 MG tablet TAKE [...] per day. 025 Active levothyroxine (Synthroid, Levoxyl) 25 MCG tabletIndications :Other specified hypothyroidism TAKE 1 TABLET BY MOUTH EVERY MORNING 90 tablet 025 Active amLODIPine (Norvasc) 5 MG tablet TAKE 1 TABLET BY MOUTH EVERYDAY AT NOON 90 tablet 025 Active furosemide (Lasix) 20 MG tablet TAKE 1 TABLET BY MOUTH TWICE DAILY 180 tablet 025 Active predniSONE (Deltasone) 10 MG tablet Take 4 tablets (40 mg) by mouth Once per day for 3 days, THEN 3 tablets (30 mg) Once per day for 3 days, THEN 2 tablets (20 mg) Once per day for 3 days, THEN 1 tablet (10 mg) Once per day for 3 days. 30 tablet 025 2024 Active glucose blood test strip Use to check blood sugar two times per day 100 each 12 024 2024 levothyroxine (Synthroid, Levoxyl) 25 MCG tabletIndications :Other specified hypothyroidism TAKE 1 TABLET BY MOUTH EVERY MORNING 30 tablet 1 024 2024 Discontinued furosemide (Lasix) 20 MG tablet TAKE 1 TABLET BY MOUTH TWICE DAILY 60 tablet 1 024 2024 Discontinued(R eorder (will not trigger notification to Pharmacy)) amLODIPine (Norvasc) 5 MG tablet TAKE 1 TABLET BY MOUTH EVERYDAY AT NOON 90 tablet 025 2024 Discontinued doxycycline (Vibramycin) 100 MG capsule Take 1 capsule (100 mg) by mouth 2 times daily for 7 days. Take with at least 8 ounces (large glass) of water, do not lie down for 30 minutes after 14 capsule 025 2024 Active Problems Problem Noted Date Diagnosed Date [...] leg, and APAP prn - referred to manufacturers agent as requested by patient's caregiver - prescribe a cane to offload the weight Assessment & Plan (10/12/2023 11:52 AM EDT): - s/p fall - X-ray on 10/04/23 shows mildly displaced fracture of 2nd distal phalanx - continue off weight, ice, elevate leg, and APAP prn - refer to manufacturers agent as requested by patient's caregiver Popliteal cyst, right 10/02/2023 Assessment & Plan (10/11/2023 11:43 AM EDT): -seen on US during recent admission -repeat US Assessment & Plan (10/02/2023 4:46 PM EDT): -seen on US during recent admission -repeat US Abdominal bloating 09/27/2023 Centrilobular emphysema 09/27/2023 Overview (06/16/2024): - 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 - Anticipate to start BiPAP 21/7 mmHg - Strongly encouraged to get COVID vaccine - Keep appt with gasoline engine inspector and resume pulmonary rehab. -Treatment Hx: Budesonide - Formoterol (Symbicort) was changed to Wixela in Jan 2023. Plan to try fluticasone / umeclidinium / vilanterol (Trelegy) per gasoline engine inspector. Colon cancer screening 09/27/2023 Assessment & Plan [...] Plan (06/16/2024 6:01 AM EDT): Following with [facility], last seen in Nov 2023 FIB-4 index 1.78 Check the status of US (advised to call the office with managed care director) Avoid hepatotoxic drugs Maintain non-alcohol life Follow up with GI as scheduled Assessment & Plan (05/03/2024 5:15 PM EST): Following with [facility], last seen in Nov 2023 FIB-4 index 1.78 Check the status of US (advised to call the office with managed care director) Avoid hepatotoxic drugs Maintain non-alcohol life Follow up with GI as scheduled Assessment & Plan (03/26/2024 5:03 PM EST): Following with [facility], last seen in Nov 2023 FIB-4 index 1.78 Check the status of US (advised to call the office with managed care director) Avoid hepatotoxic drugs Maintain non-alcohol life Follow up with GI as scheduled Assessment & Plan (02/06/2024 5:37 AM EST): Following with [facility], last seen in Nov 2023 FIB-4 index 1.78 Check the status of US (advised to call the office with managed care director) Avoid hepatotoxic drugs Maintain non-alcohol life Follow up with GI as scheduled Assessment & Plan (11/29/2023 11:32 AM EDT): Following with [facility], last seen in May 2023 FIB-4 index 1.78 Check the status of US Avoid hepatotoxic drugs Maintain non-alcohol life Follow up with GI as scheduled Assessment & Plan (10/11/2023 11:42 AM EDT): Following with [facility], last seen in May 2023 FIB-4 index 1.78 Check the status of US Avoid hepatotoxic drugs Maintain non-alcohol life Follow up with GI as scheduled Assessment & Plan (10/02/2023 4:34 PM EDT): Following with [facility], last seen in May 2023 FIB-4 index 1.78 Check the status of US Avoid hepatotoxic drugs Maintain non-alcohol life Follow up with GI as scheduled Assessment & Plan (08/27/2023 6:55 AM EDT): Following with 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 - Anticipate to start BiPAP 21/7 mmHg - Strongly encouraged to get COVID vaccine - Keep appt with gasoline engine inspector and resume pulmonary rehab. -Treatment Hx: Budesonide - Formoterol (Symbicort) was changed to Wixela in Jan 2023. Plan to try fluticasone / umeclidinium / vilanterol (Trelegy) per gasoline engine inspector. 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 - Strongly encouraged to get COVID vaccine - Keep appt with gasoline engine inspector and resume pulmonary rehab. -Treatment Hx: Budesonide - Formoterol (Symbicort) was changed to Wixela in Jan 2023. Plan to try Trelegy. 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 - Strongly encouraged to get COVID vaccine - Keep appt with gasoline engine inspector and resume pulmonary rehab. -Treatment Hx: Budesonide - Formoterol (Symbicort) was changed to Wixela in Jan 2023. Plan to try Trelegy. -Since she seldom sees her [facility] gasoline engine inspector, and she is well-known to [facility] gasoline engine inspector / critical medicine teams, we discussed about transferring care to [facility] pulmonology. Patient agreed with the plan initially, but decided to stay with [facility] gasoline engine inspector. 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 - Strongly encouraged to get COVID vaccine - Keep appt with gasoline engine inspector and resume pulmonary rehab. -Treatment Hx: Budesonide - Formoterol (Symbicort) was changed to Wixela in Jan 2023. Plan to try Trelegy. -Since she seldom sees her [facility] gasoline engine inspector, and she is well-known to [facility] gasoline engine inspector / critical medicine teams, we discussed about transferring care to [facility]. Patient agreed with the plan initially, but decided to stay with [facility] gasoline engine inspector. 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 - Strongly encouraged to get COVID vaccine - Keep appt with gasoline engine inspector -Treatment Hx: Budesonide - Formoterol (Symbicort) was changed to Wixela in Jan 2023. Plan to try Trelegy. 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 - Strongly encouraged to get COVID vaccine - Keep appt with gasoline engine inspector -Treatment Hx: Budesonide - Formoterol (Symbicort) was changed to Wixela in Jan 2023. Plan to try Trelegy. 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 - Strongly encouraged to get COVID vaccine - Keep appt with gasoline engine inspector -Treatment Hx: Budesonide - Formoterol (Symbicort) was changed to Wixela in Jan 2023. Plan to try Trelegy. 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 - Strongly encouraged to get COVID vaccine - Keep appt with gasoline engine inspector -Treatment Hx: Budesonide - Formoterol (Symbicort) was changed to Wixela in Jan 2023. Plan to try Trelegy. Assessment & Plan (05/08/2023 6:27 AM EST): - Farm Owner Operator: Ashly, last seen on 01/28/23 - Acute [...] get COVID vaccine - Keep appt with gasoline engine inspector. Plan at last visit was to do a nocturnal polysomnogram with TCCO2 monitoring to evaluate for nocturnal non-invasive ventilator assessment and chest CT w/o contrast and TTE after polysomnogram Assessment & Plan (03/01/2023 6:50 AM EST): - Farm Owner Operator: Ashly, last seen on 01/28/23 - Severe [...] Dx COPD exacerbation, CAP, Tx azithromycin - [facility] 01/11/19-01/17/19, b/l lower lobe pneumonia, L [...] get COVID vaccine - Keep appt with gasoline engine inspector -Treatment Hx: Budesonide - Formoterol (Symbicort) was changed to Wixela in Jan 2023. Plan to try Trelegy. Gastroesophageal reflux disease 09/09/2022 Assessment & Plan (08/23/2023 3:11 PM EDT): 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 - Anticipate to start BiPAP 21/7 mmHg - Strongly encouraged to get COVID vaccine - Keep appt with gasoline engine inspector and resume pulmonary rehab. -Treatment Hx: Budesonide - Formoterol (Symbicort) was changed to Wixela in Jan 2023. Plan to try fluticasone / umeclidinium / vilanterol (Trelegy) per gasoline engine inspector. 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 - Strongly encouraged to get COVID vaccine - Keep appt with gasoline engine inspector and resume pulmonary rehab. -Treatment Hx: Budesonide - Formoterol (Symbicort) was changed to Wixela in Jan 2023. Plan to try fluticasone / umeclidinium / vilanterol (Trelegy) per gasoline engine inspector. 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 - Strongly encouraged to get COVID vaccine - Keep appt with gasoline engine inspector and resume pulmonary rehab. -Treatment Hx: Budesonide - Formoterol (Symbicort) was changed to Wixela in Jan 2023. Plan to try Trelegy. -Since she seldom sees her [facility] gasoline engine inspector, and she is well-known to [facility] gasoline engine inspector / critical medicine teams, we discussed about transferring care to [facility]. Patient agreed with the plan initially, but decided to stay with [facility] gasoline engine inspector. 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 - Strongly encouraged to get COVID vaccine - Keep appt with gasoline engine inspector and resume pulmonary rehab. -Treatment Hx: Budesonide - Formoterol (Symbicort) was changed to Wixela in Jan 2023. Plan to try Trelegy. -Since she seldom sees her [facility] gasoline engine inspector, and she is well-known to [facility] gasoline engine inspector / critical medicine teams, we discussed about transferring care to [facility]. Patient agreed with the plan initially, but decided to stay with [facility] gasoline engine inspector. 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 - Strongly encouraged to get COVID vaccine - Keep appt with gasoline engine inspector -Treatment Hx: Budesonide - Formoterol (Symbicort) was changed to Wixela in Jan 2023. Plan to try Trelegy. 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 - Strongly encouraged to get COVID vaccine - Keep appt with gasoline engine inspector -Treatment Hx: Budesonide - Formoterol (Symbicort) was changed to Wixela in Jan 2023. Plan to try Trelegy. 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 - Strongly encouraged to get COVID vaccine - Keep appt with gasoline engine inspector -Treatment Hx: Budesonide - Formoterol (Symbicort) was changed to Wixela in Jan 2023. Plan to try Trelegy. 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 - Strongly encouraged to get COVID vaccine - Keep appt with gasoline engine inspector -Treatment Hx: Budesonide - Formoterol (Symbicort) was changed to Wixela in Jan 2023. Plan to try Trelegy. 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 - Strongly encouraged to get COVID vaccine - Keep appt with gasoline engine inspector -Treatment Hx: Budesonide - Formoterol (Symbicort) was changed to Wixela in Jan 2023. Plan to try Trelegy. Assessment & Plan (05/08/2023 6:17 AM EST): - Farm Owner Operator: Aslhy, last seen on 01/28/23 - Severe exacerbation [...] get COVID vaccine - Keep appt with gasoline engine inspector -Treatment Hx: Budesonide - Formoterol (Symbicort) was changed to Wixela in Jan 2023. Plan to try Trelegy. 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 01/11/19-01/17/19, b/l lower lobe pneumonia, L [...] get COVID vaccine - Keep appt with gasoline engine inspector -Treatment Hx: Budesonide - Formoterol (Symbicort) was changed to Wixela in Jan 2023. Plan to try Trelegy. 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 - Hospitalization in Mar 2019. Dx COPD exacerbation. Rx prednisone and doxycycline - Exacerbation in Jan 2019, hospitalized 02/05/19- 02/07/19, Dx COPD exacerbation, CAP, Tx azithromycin - [facility] 01/11/19-01/17/19, b/l lower lobe pneumonia, L > R, treated with IV steroid, levofloxacin, and bronchodilators Tx. Discharged with prednisone, benzonatate, levofloxacin. - Continue Symbicort and Incruse as maintenance. Plan to switch to Trelegy per gasoline engine inspector - Continue albuterol HFA prn. - Continue DuoNeb for neb prn Tx. - Continue workin on smoking cessation. 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, Rx ceftriaxone, steroid, discharged with prednisone burst. - Hospitalization in Mar 2019. Dx COPD exacerbation. Rx prednisone and doxycycline - Exacerbation in Jan 2019, hospitalized 02/05/19- 02/07/19, Dx COPD exacerbation, CAP, Tx azithromycin - [facility] 01/11/19-01/17/19, b/l lower lobe pneumonia, L > R, treated with IV steroid, levofloxacin, and bronchodilators Tx. Discharged with prednisone, benzonatate, levofloxacin. - Continue Symbicort and Incruse as maintenance. Plan to switch to Trelegy per gasoline engine inspector - Continue albuterol HFA prn. - Continue DuoNeb for neb prn Tx. - Continue workin on smoking cessation. 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, Rx ceftriaxone, steroid, discharged with prednisone burst. - Hospitalization in Mar 2019. Dx COPD exacerbation. Rx prednisone and doxycycline - Exacerbation in Jan 2019, hospitalized 02/05/19- 02/07/19, Dx COPD exacerbation, CAP, Tx azithromycin - [facility] 01/11/19-01/17/19, b/l lower lobe pneumonia, L > R, treated with IV steroid, levofloxacin, and bronchodilators Tx. Discharged with prednisone, benzonatate, levofloxacin. - Continue Symbicort and Incruse as maintenance. Plan to switch to Trelegy per gasoline engine inspector - Continue albuterol HFA prn. - Continue DuoNeb for neb prn Tx. - Continue workin on smoking cessation. 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, Rx ceftriaxone, steroid, discharged with prednisone burst. - Hospitalization in Mar 2019. Dx COPD exacerbation. Rx prednisone and doxycycline - Exacerbation in Jan 2019, hospitalized 02/05/19- 02/07/19, Dx COPD exacerbation, CAP, Tx azithromycin - [facility] 01/11/19-01/17/19, b/l lower lobe pneumonia, L > R, treated with IV steroid, levofloxacin, and bronchodilators Tx. Discharged with prednisone, benzonatate, levofloxacin. - Continue Breo and Spiriva as maintenance. Plan to switch to Trelegy per gasoline engine inspector - Continue albuterol HFA prn. - Continue DuoNeb for neb prn Tx. - Continue workin on smoking cessation. - Continue supplemental oxygen 4L - Keep appt with gasoline engine inspector in October. - Strongly encouraged to get COVID vaccine Diabetes mellitus, type 2 04/12/2022 Assessment & Plan (06/16/2024 6:04 AM EDT): - A1C 7.0% today, 7.0% on 03/26/24 - in a setting of frequent steroid use for COPD exacerbation - continue working on lifestyle modifications - continue SMBG - continue metformin ER 500 mg twice daily - last eye exam: referred to [facility] eye care - last comprehensive foot [...] daily - last eye exam: referred to [facility] eye care - last comprehensive foot [...] daily - last eye exam: referred to [facility] eye [facility] - last comprehensive foot exam: 10/04/23, left [...] daily - last eye exam: referred to [facility] eye care - last comprehensive foot [...] daily - last eye exam: referred to [facility] eye care - last comprehensive foot [...] daily - last eye exam: referred to [facility] eye care - last comprehensive foot [...] daily - last eye exam: referred to [facility] eye care - last comprehensive foot [...] daily - last eye exam: referred to [facility] eye care - last comprehensive foot exam: - last lipid profile: 12/24/22 - last microalbumin test: Ordered Assessment & Plan (11/28/2023 5:43 AM EDT): >>ASSESSMENT AND PLAN FOR DIABETES MELLITUS, TYPE 2 (CMS/HCC) WRITTEN ON 05/31/2023 4:21 PM BY CATHLEEN MO MD - A1C 6.7% on 05/19/23, likely due to frequent steroid use recently - continue working on lifestyle modifications - start SMBG - start metformin ER 500 mg once daily - refer to [facility] eye care - foot exam at next visit >>ASSESSMENT AND PLAN FOR PREDIABETES WRITTEN ON 05/20/2023 11:04 AM BY MARTIN PETTIT - in a setting of frequent prednisone [...] EDT): -Continuous supplemental oxygen 4-6 L/m -Supplier: [employer] -Check if she can get a portable [...] EDT): -Continuous supplemental oxygen 4-6 L/m -Supplier: [employer] -Check if she can get an oxygen concentrator -Avoid smoking around oxygen Assessment & Plan (10/04/2023 9:57 AM EDT): -Continuous supplemental oxygen 4-6 L/m -Supplier: [employer] [...] 6:44 AM EST): -Supplier: [employer] -Pt had Apnc-vk-Buin visit with Dr. Hart, gasoline engine inspector, on 01/28/23. He recommended supplemental oxygen 4LNC at rest and 6LNC with activity based on last evaluation -Continue as recommended. Assessment & Plan (01/05/2023 5:14 PM EDT): -Continuous supplemental oxygen 4L/m -Supplier: [employer] -[facility]ed [facility] for oxygen delivery RAN -Pt also needs a rollator as she needs frequent rest when walking. Assessment & Plan (12/05/2022 5:52 AM EDT): -Continuous supplemental oxygen 4L/m -Supplier: [employer] -Contacted [facility] for oxygen delivery RAN Assessment & Plan (05/08/2022 5:44 PM EST): -Continuous supplemental oxygen 4L/m Erythrocytosis 01/07/2015 Assessment & Plan (05/08/2023 6:35 AM EST): - 09/24/21 Hemoglobin 19.0; Hematocrit 59.1 - likely due to hypoxia / COPD - previously referred to explosives engineer, but pt missed appt Assessment & Plan (12/05/2022 5:49 AM EDT): - 09/24/21 Hemoglobin 19.0; Hematocrit 59.1 - likely due to hypoxia / COPD - previously referred to explosives engineer, but pt missed appt Assessment & Plan (05/08/2022 5:50 PM EST): - 09/24/21 Hemoglobin 19.0; Hematocrit 59.1 - likely due to hypoxia / COPD - previously referred to explosives engineer, but pt missed appt Assessment & Plan (04/12/2022 7:51 PM EST): - 09/24/21 Hemoglobin 19.0; Hematocrit 59.1 - likely due to hypoxia / COPD - previously referred to explosives engineer, but pt missed appt 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 Hepatitis C antibody test positive 01/07/2015 Chronic liver disease 09/03/2014 Assessment & Plan (06/16/2024 6:02 AM EDT): -Likely due to Hx alcohol use disorder -Followed by [facility], last visit on 12/21/23 -Hepatitis profile: [...] to Hx alcohol use disorder -Followed by [facility], last visit on 12/21/23 -Hepatitis profile: [...] to Hx alcohol use disorder -Followed by [facility], last visit on 12/21/23 -Hepatitis profile: [...] to Hx alcohol use disorder -Followed by [facility], last visit on 12/21/23 -Hepatitis profile: [...] to Hx alcohol use disorder -Followed by [facility], last visit on 06/22/23 -Hepatitis profile: [...] to Hx alcohol use disorder -Followed by [facility], last visit on 06/22/23 -Hepatitis profile: [...] to Hx alcohol use disorder -Followed by [facility], last visit on 06/22/23 -Hepatitis profile: [...] to Hx alcohol use disorder -Followed by [facility], last visit on 06/22/23 -Hepatitis profile: [...] to Hx alcohol use disorder -Followed by [facility], last visit on 09/24/21 -Hepatitis profile: [...] to continue staying abstinent -consider changing to [facility] since pt has a difficulty getting appt with current GI Assessment & Plan (04/28/2023 1:18 PM EST): -Likely due to Hx alcohol use disorder -Followed by [facility], last visit on 09/24/21 -Hepatitis profile: [...] to Hx alcohol use disorder -Followed by [facility], last visit on 09/24/21 -Hepatitis profile: [...] to Hx alcohol use disorder -Followed by [facility], last visit on 09/24/21 -Hepatitis profile: [...] to continue staying abstinent -consider changing to [facility] since pt has a difficulty getting appt with current GI Assessment & Plan (05/08/2022 5:48 PM EST): -Likely due to Hx alcohol use disorder -Followed by [facility], last visit on 09/24/21 -Hepatitis profile: [...] to Hx alcohol use disorder -Followed by [facility], last visit on 09/24/21 -Hepatitis profile: [...] mg, but if not approved will prescribe [id number] mg daily -Follow up in 3-6 mo, sooner if any problem arises Assessment & Plan (03/01/2023 6:52 AM EST): -Goal BP < 140/90 per JNC-8 and < 130/80 per ACC/AHA guideline (Treatment threshold >= 140/90 ) -Continue working on lifestyle modifications -Continue Amlodipine 10 mg daily -Recently seen by gasoline engine inspector, Dr. Hart, and was recommended to switch [...] Previous Dx: Depression; PTSD; alcohol-induced mood disorder [facility] provider: [facility], psychiatrist Dr. Cruz Current medications: sertraline 125 mg daily, perphenazine 4 mg daily Previously tried medications: risperidone; hydroxyzine; prazosin pt is depression has worsened with current living condition pt was able to contract her safety today Assessment & Plan (04/02/2024 6:22 AM EST): Previous Dx: Depression; PTSD; alcohol-induced mood disorder [facility] provider: Mumtaz Current medications: sertraline, prazosin 2mg, hydroxyzine, and risperidone. pt is depression has worsened with current living condition pt was able to contract her safety today Assessment & Plan (10/04/2023 9:59 AM EDT): Previous Dx: Depression; PTSD; alcohol-induced mood disorder [facility] provider: Mumtaz Current medications: sertraline, prazosin 2mg, hydroxyzine, and risperidone. pt is depression has worsened with current living condition pt was able to contract her safety today Assessment & Plan (08/18/2023 5:43 AM EDT): Previous Dx: Depression; PTSD; alcohol-induced mood disorder [facility] provider: Mumtaz Current medications: sertraline, prazosin 2mg, hydroxyzine, and risperidone. pt is depression has worsened with current living condition pt was able to contract her safety today Assessment & Plan (05/08/2022 5:53 PM EST): Previous Dx: Depression; PTSD; alcohol-induced mood disorder [facility] provider: HUI Current medications: sertraline, prazosin 2mg, hydroxyzine, and risperidone. pt is depression has worsened with current living condition pt was able to contract her safety today Assessment & Plan (04/12/2022 7:43 PM EST): Previous Dx: Depression; PTSD; alcohol-induced mood disorder S provider: HUI Current medications: sertraline, prazosin 2mg, hydroxyzine, and [...] varenicline in Nov 2023 - referred to [facility] Assessment & Plan (04/26/2024 10:32 AM EST): - restarted smoking in August 2023 - previously tried varenicline and nicotine replacement - not candidate for lung cancer screening CT due to severe COPD - continue working on smoking cessation - prescribed varenicline in Nov 2023 - referred to [facility] Assessment & Plan (04/02/2024 6:20 AM EST): - restarted smoking in August 2023 - previously tried varenicline and nicotine replacement - not candidate for lung cancer screening CT due to severe COPD - continue working on smoking cessation - prescribed varenicline in Nov 2023 - referred to [facility] Assessment & Plan (02/06/2024 5:38 AM EST): - restarted smoking in August 2023 - previously tried varenicline and nicotine replacement - not candidate for lung cancer screening CT due to severe COPD - continue working on smoking cessation - prescribed varenicline in Nov 2023 - referred to [facility] Assessment & Plan (11/29/2023 11:53 AM EDT): [...] & Plan (06/16/2024 6:02 AM EDT): - Aircraft Design Engineer: ALLISON, last visit on 06/15/20 - Current replacement: levothyroxine 225 mcg daily - Most recent thyroid function test: 11/08/23 therapeutic range - Recheck today Assessment & Plan (04/26/2024 10:32 AM EST): - Aircraft Design Engineer: [facility], last visit on 06/15/20 - Current replacement: levothyroxine 225 mcg daily - Most recent thyroid function test: 11/08/23 therapeutic range Assessment & Plan (03/26/2024 5:03 PM EST): - Aircraft Design Engineer: [facility], last visit on 06/15/20 - Current replacement: levothyroxine 225 mcg daily - Most recent thyroid function test: 08/03/23 therapeutic range - Requested to repeat lab today. - Encouraged to improve adherence. Assessment & Plan (02/02/2024 2:28 PM EST): - Aircraft Design Engineer: [facility], last visit on 06/15/20 - Current replacement: levothyroxine 225 mcg daily - Most recent thyroid function test: 08/03/23 therapeutic range - Requested to repeat lab today. - Encouraged to improve adherence. Assessment & Plan (11/29/2023 11:32 AM EDT): - Aircraft Design Engineer: [facility], last visit on 06/15/20 - Current replacement: levothyroxine 225 mcg daily - Most recent thyroid function test: 08/03/23 therapeutic range - Requested to repeat lab today. - Encouraged to improve adherence. Assessment & Plan (10/11/2023 11:43 AM EDT): - Aircraft Design Engineer: [facility], last visit on 06/15/20 - Current replacement: levothyroxine 225 mcg daily - Most recent thyroid function test: 08/03/23 therapeutic range - Requested to repeat lab today. - Encouraged to improve adherence. Assessment & Plan (10/02/2023 4:45 PM EDT): - Aircraft Design Engineer: [facility], last visit on 06/15/20 - Current replacement: levothyroxine 225 mcg daily - Most recent thyroid function test: 08/03/23 therapeutic range - Requested to repeat lab today. - Encouraged to improve adherence. Assessment & Plan (12/05/2022 5:49 AM EDT): - Aircraft Design Engineer: [facility], last visit on 06/15/20 - Current replacement: levothyroxine 200 mcg daily - Most recent thyroid function test: 09/24/21 TSH 23.42 - 08/13/20 TSH 26.67, Free T4 0.9 - 10/22/19 TSH 48.28; Free T4 0.44 - Requested to repeat lab today. - Encouraged to improve adherence. - Advised to keep appt with Aircraft Design Engineer Assessment & Plan (04/12/2022 7:31 PM EST): - Aircraft Design Engineer: [facility], last visit on 06/15/20 - Current replacement: levothyroxine 200 mcg daily - Most recent thyroid function test: 09/24/21 TSH 23.42 - 08/13/20 TSH 26.67, Free T4 0.9 - 10/22/19 TSH 48.28; Free T4 0.44 - Requested to repeat lab today. - Encouraged to improve adherence. - Advised to keep appt with Aircraft Design Engineer Resolved Problems Problem Noted Date Diagnosed Date Resolved Date COPD with acute exacerbation 03/08/2024 03/25/2024 Assessment & Plan (03/08/2024 3:47 PM EST): Suspect acute COPD exacerbation. At baseline O2 SAT with supplemental oxygen. -prescribed 100 mg Doxycyline 100 mg BID for 7 days. -prescribed Prednisone taper. -ER precautions discussed. -Seek medical attention for worsening symptoms. Pulmonary edema 12/22/2023 02/06/2024 Polysubstance abuse 12/22/2023 04/02/19 COVID 12/22/2023 01/19/2024 Acute respiratory failure wi [...] & Plan (05/31/2023 4:34 PM EST): - Aircraft Design Engineer: [facility], last visit on 06/15/20 - Current replacement: levothyroxine 225 mcg daily (recently increased from 212.5 mcg because patient had TSH 5.92 and free T4 0.6) - Most recent thyroid function test: Most recent TSH in Mar 2023 was 5.92 (patient was having acute illness) - Recheck thyroid function Assessment & Plan (05/08/2023 6:34 AM EST): - Aircraft Design Engineer: [place]ISON, last visit on 06/15/20 - Current replacement: levothyroxine 225 mcg daily (recently increased from 212.5 mcg because patient had TSH 5.92 and free T4 0.6) - Most recent thyroid function test: Most recent TSH in Mar 2023 was 5.92 (patient was having acute illness) - Recheck thyroid function Assessment & Plan (12/24/2022 3:43 PM EDT): - Aircraft Design Engineer: ALLISON, last visit on 06/15/20 - Current replacement: levothyroxine 200 mcg daily - Most recent thyroid function test: 12/14/22 TSH 32.45, Free T4 0.57 - Encouraged to improve adherence. Assessment & Plan (12/05/2022 5:53 AM EDT): - Aircraft Design Engineer: [place]ISON, last visit on 06/15/20 - Current replacement: levothyroxine 200 mcg daily - Most recent thyroid function test: 09/24/21 TSH 23.42 - 08/13/20 TSH 26.67, Free T4 0.9 - 10/22/19 TSH 48.28; Free T4 0.44 - Requested to repeat lab today. - Encouraged to improve adherence. - Advised to keep appt with Aircraft Design Engineer Assessment & Plan (05/08/2022 5:49 PM EST): - Aircraft Design Engineer: [place], last visit on 06/15/20 - Current replacement: levothyroxine 200 mcg daily - Most recent thyroid function test: 09/24/21 TSH 23.42 - 08/13/20 TSH 26.67, Free T4 0.9 - 10/22/19 TSH 48.28; Free T4 0.44 - Requested to repeat lab today. - Encouraged to improve adherence. - Advised to keep appt with Aircraft Design Engineer Assessment & Plan (04/12/2022 7:32 PM EST): - Aircraft Design Engineer: [facility], last visit on 06/15/20 - Current replacement: levothyroxine 200 mcg daily - Most recent thyroid function test: 09/24/21 TSH 23.42 - 08/13/20 TSH 26.67, Free T4 0.9 - 10/22/19 TSH 48.28; Free T4 0.44 - Requested to repeat lab today. - Encouraged to improve adherence. - Advised to keep appt with Aircraft Design Engineer Cirrhosis, alcoholic 01/07/2015 024 Assessment & Plan (05/31/2023 4:21 PM EST): -Followed by [facility], last visit on 09/24/21 -Hepatitis profile: [...] Plan (04/12/2022 7:38 PM EST): -Followed by [facility], last visit on 09/24/21 -Hepatitis profile: [...] & Plan (12/24/2022 3:41 PM EDT): - Farm Owner Operator: Ashly, last seen on 04/15/22 - Severe exacerbation 1-2 per year, none in [id number] - Most recent exacerbation today, 12/22/22. - Last hospitalization Feb [address] [facility] Rx ceftriaxone, steroid, discharged with prednisone burst. - Hospitalization in Mar 2019. Dx COPD exacerbation. Rx prednisone and doxycycline - Exacerbation in Jan 2019, hospitalized 02/05/19- 02/07/19, Dx COPD exacerbation, CAP, Tx azithromycin - [facility] 01/11/19-01/17/19, b/l lower lobe pneumonia, L > R, treated with IV steroid, levofloxacin, and bronchodilators Tx. Discharged with prednisone, benzonatate, levofloxacin. - Continue Symbicort and Incruse as maintenance. Plan to switch to Trelegy per gasoline engine inspector - Continue albuterol HFA prn. - Continue DuoNeb for neb prn Tx. - Continue workin on smoking cessation. - Continue supplemental oxygen 4L - Keep appt with gasoline engine inspector - Strongly encouraged to get COVID vaccine Assessment & Plan (12/05/2022 5:51 AM EDT): - Farm Owner Operator: Ashly, last seen on 04/15/22 - Severe exacerbation 1-2 per year, none in [id number] - Most recent exacerbation in Feb 2020, required hospitalization at [facility], Rx ceftriaxone, steroid, discharged with prednisone burst. - Hospitalization in Mar 2019. Dx COPD exacerbation. Rx prednisone and doxycycline - Exacerbation in Jan 2019, hospitalized 02/05/19- 02/07/19, Dx COPD exacerbation, CAP, Tx azithromycin - [facility] 01/11/19-01/17/19, b/l lower lobe pneumonia, L > R, treated with IV steroid, levofloxacin, and bronchodilators Tx. Discharged with prednisone, benzonatate, levofloxacin. - Continue Symbicort and Incruse as maintenance. Plan to switch to Trelegy per gasoline engine inspector - Continue albuterol HFA prn. - Continue DuoNeb for neb prn Tx. - Continue workin on smoking cessation. - Continue supplemental oxygen 4L - Keep appt with gasoline engine inspector - Strongly encouraged to get COVID vaccine Assessment & Plan (05/08/2022 5:47 PM EST): - Farm Owner Operator: Ashly, last seen on 04/15/22 - Severe exacerbation 1-2 per year, none in [id number] - Most recent exacerbation in Feb 2020, required hospitalization at [facility], Rx ceftriaxone, steroid, discharged with prednisone burst. - Hospitalization in Mar 2019. Dx COPD exacerbation. Rx prednisone and doxycycline - Exacerbation in Jan 2019, hospitalized 02/05/19- 02/07/19, Dx COPD exacerbation, CAP, Tx azithromycin - [facility] 01/11/19-01/17/19, b/l lower lobe pneumonia, L > R, treated with IV steroid, levofloxacin, and bronchodilators Tx. Discharged with prednisone, benzonatate, levofloxacin. - Continue Symbicort and Incruse as maintenance. Plan to switch to Trelegy per gasoline engine inspector - Continue albuterol HFA prn. - Continue DuoNeb for neb prn Tx. - Continue workin on smoking cessation. - Continue supplemental oxygen 4L - Keep appt with gasoline engine inspector - Strongly encouraged to get COVID vaccine Encounters Date Type Department Care Team Description 07/11/2024 Patient Outreach [facility] [address] [place] [phone] Cathleen Mo MD Care Coordination (Appt reminder) 07/10/2024 Telephone [facility] [address] [phone] Bert Banegas MD oygen return 07/09/2024 Telephone [facility] [address] [place] [phone] Cathleen Mo MD Care Management (C3CM- f/u call) 07/09/2024 Patient Outreach [facility] [address] [place] [phone] Cathleen Mo MD Care Coordination (PT1) 07/04/2024 3:20 PM EDT Office Visit [facility] [address] [address] Bert Banegas MD COPD exacerbation ([facility]) (Primary Dx); Chronic respiratory failure with hypoxia and hypercapnia (CMS/HCC) 07/04/2024 Refill [facility] [address] [place] [address] Cathleen Mo MD 07/03/2024 Patient Outreach [address] [address] Cathleen Mo MD Care Coordination (Appt reminder) 07/02/2024 Telephone [facility] [address] [place] [phone] Elba Jiang, BRIANNA 07/02/2024 Patient Outreach [address] [address] Cathleen Mo MD Care Coordination (triage) 07/02/2024 Refill [facility] [address] [place] [phone] Cathleen Mo MD Other specified hypothyroidism 07/01/2024 Refill [facility] [address] [place] [address] Cathleen Mo MD 06/29/2024 Patient Outreach [address] [address] Cathleen Mo MD Care Coordination (Appt reminder) 06/29/[address] [address] Cathleen Mo MD Care Management (C3CM- f/u call lvm) 06/20/2024 Orders Only [facility] [address] [place] [phone] Cathleen Mo MD Parotid mass (Primary Dx); Sensorineural hearing loss (SNHL) of both ears 06/20/2024 Telephone [facility] [address] [place] [phone] Cathleen Mo MD 06/18/[address] [address] Cathleen Mo MD Care Management (C3CM- f/u call) 06/18/2024 Patient Outreach [address] [address] Cathleen Mo MD Care Coordination (PT1) 06/12/2024 1:15 PM EDT Office Visit [address] [address] Cathleen Mo MD Chronic obstructive pulmonary disease, [...] sciatica present; Skin lesions 06/12/2024 Orders Only [address] [address] Cathleen Mo MD 06/12/2024 Travel 06/11/2024 Patient Outreach [address] [address] Cathleen Mo MD Care Coordination (Appt reminder) 06/07/[address] [address] Cathleen Mo MD chart prep 06/06/[address] [address] Cathleen Mo MD Care Management (C3CM- f/u call #2 lvm) 06/01/[address] [address] Cathleen Mo MD Care Management (C3CM- f/u call lvm) 05/28/2024 Patient Outreach [address] [address] Cathleen Mo MD Care Coordination (PT1) 05/28/2024 Refill [facility] [address] [place] [address] Cathleen Mo MD 05/28/[address] [address] Cathleen Mo MD [employer] [place] (Glove, exam vnyl lg) 05/24/2024 Refill [facility] [address] [place] [phone] Cathleen Mo MD 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 05/21/2024 Patient Outreach [address] [address] Cathleen Mo MD Care Coordination (PT1) 05/21/[address] [address] Cathleen Mo MD Care Management (C3CM- initial assessment/ enrollment) 05/18/2024 Patient Outreach [address] [address] Cathleen Mo MD Care Coordination (PT1) 05/18/2024 Patient Outreach [address] [phone] Cathleen Mo MD Care Coordination (CM/CHW appt reminder) 05/17/[address] [phone] Marie Monroe [place] 05/07/2024 Refill [facility] [address] [place], [place] [phone] Cathleen Mo MD 05/02/2024 Patient Outreach [address] [phone] Cathleen Mo MD Care Coordination (CM/CHW outreach) 04/27/[address] [phone] Bhumi Monroe RN Care Management (C3CM- chart review) 04/26/2024 9:30 AM EST Office Visit [address] [phone] Cathleen Mo MD Chronic obstructive pulmonary disease, [...] Parotid mass 04/26/2024 Travel 04/25/2024 Patient Outreach [facility] [address] [place] [address] [phone] Ctahleen Mo MD Care Coordination (SDOH) 04/19/2024 Patient Outreach [facility] [address] [place] [address] Cathleen Mo MD Care Coordination (SDOH) from Last 3 Months Immunizations Name Administration [...] Sign Reading Time Taken Comments Blood Pressure 123/78 07/04/2024 3:15 PM EDT Pulse 110 07/04/2024 3:28 PM EDT Temperature 36.7 ??C (98 ??F) 07/04/2024 3:15 PM EDT Respiratory Rate 24 07/04/2024 3:15 PM EDT Oxygen Saturation 90% 07/04/2024 3:35 PM EDT Inhaled Oxygen Concentration - - Weight 77.4 kg (170 lb 9.6 oz) 06/12/2024 1:22 P M EDT Height 165.1 cm (5' 5 ) 02/02/2024 10:45 AM EST Body Mass Index 28.39 02/02/2024 10:45 AM EST Plan of Treatment Upcoming Encounters Date Type Department Care Team (Late st Contact Info) Description 08/16/2024 1:45 PM EDT Office Visit [facility] [address] [place], [place] [phone] Silvia Cameron, OD [address] [place] [address] Health Maintenance Due Date Last Done Comments [...] Protein Screening 11/07/2024 11/08/2023 Diabetes: Hemoglobin A1C 12/13/202406/12/ 025, 03/26/2024, 12/21/2023, Additional history exists Alcohol/Substance Use Screening 02/01/2025 02/02/2024 Pap Smear 04/29/2025 04/29/2022, 02/07/2019 Lipid Panel 06/12/2025 06/12/2024, 10/26, 12/14/2022, Additional history exists Tobacco Screening 07/04/2025 07/04/2024 Mammogram 07/12/2025 07/13/2023, 07/07/2022 Colorectal Cancer Screening [...] use of insulin (CMS/HCC) POCT GLUCOSE Routine 06/12/2024 9:38 AM EDT Type 2 diabetes mellitus without complication, without long-term current use of insulin (CMS/HCC) AMB REFERRAL TO PULMONOLOGY Routine 06/07/2024 Chronic respiratory failure with hypoxia and hypercapnia (CMS/HCC) LAB COLOGUARD?? COLON CANCER SCREEN Routine 03/26/2024 11:10 AM EST Screening for colon cancer ALBUMIN, RANDOM URINE W/CREATININE Routine 11/08/2023 1:45 PM EDT Type 2 diabetes mellitus without complication, without long-term current use of insulin (CMS/HCC) BI MAMMOGRAM SCREENING TOMOSYNTHESIS BILATERAL Routine 07/13/2023 [...] Blood Count 6.2 4.8 - 10.8 X10*3/uL [facility] Red Blood Count 5.40 4.20 - 5.50 X10*6/uL [facility] Hemoglobin 15.0 12.0 - 16.0 g/dl [facility] Hematocrit 48.2(H) 37.0 - 47.0 % [facility] Mean Corpuscular Volume 89.3 80.0 - 98.0 fL [facility] Mean Corpuscular Hemoglobin 27.8 27.0 - 33.0 pg [facility] Mean Corpuscular HGB Conc 31.1 31.0 - 35.0 g/dl [facility] Red Cell Distribution Width 14.4 11.0 - 16.0 % [facility] Platelet Count 161 160 - 400 X10*3/uL [facility] Mean Platelet Volume 11.6 9.4 - 12.3 fL [facility] Neutrophils Percent Auto 82.4(H) 45 - 73 % [facility] Imm Gran Pct Auto 0.2 0.0 - 0.4 % [facility] Lymphocytes Percent Auto 15.6(L) 20 - 40 % [facility] Monocytes Percent Auto 1.1(L) 2 - 11 % [facility] Eosinophils Percent Auto 0.2 0 - 4 % [facility] Basophils Percent Auto 0.5 0 - 2 % [facility] NRBC Pct Auto 0.0 0.0 - 0.2 /100WBC [facility] Neutrophils Absolute Auto 5.1 2.0 - 8.3 x10*3/uL [facility] Imm Gran Abs Auto 0.01 0.00 - 0.03 X10*3/uL [facility] Lymphocytes Absolute Auto 1.0(L) 1.2 - 4.9 X10*3/uL [facility] Monocytes Absolute Auto 0.1 0.1 - 1.2 X10*3/uL [facility] Eosinophils Absolute Auto 0.0 0.0 - 0.4 X10*3/uL [facility] Basophils Absolute Auto 0.0 0.0 - 0.2 X10*3/uL [facility] NRBC Abs Auto 0.000 0.0 - 0.012 X10*3/uL [facility] Blood Venous blood specimen / Unknown 06/12/2024 2:40 PM EDT 06/12/2024 4:48 PM EDT Cathleen Mo MD LAB BLOOD ORDERABLES Final Resul t Performing Organization Address City/[facility] Co de Phone Number [facility] [address] [place] [address] [phone] * (ABNORMAL) TSH with Reflex to Free T4 (06/12/2024 2:10 PM EDT) TSH reflex Free T4 0.22(L) 0.32 - 4.0 uIU/mL [facility] Blood 06/12/2024 2:10 PM EDT 06/12/2024 4:45 PM EDT Cathleen Mo MD LAB BLOOD ORDERABLES Final Resul t Performing Organization Address City/[facility] Co de Phone Number [facility] [address] [place] [address] [phone] * (ABNORMAL) Lipid Panel with Reflex to Direct LDL (06/12/2024 2:10 PM EDT) Triglycerides 269(H) <150 mg/dL [facility] Comment:Desirable Triglyceri de: less than 150 mg/dLBorderline High Triglyceride 150-199 mg/dLHigh Triglyceride: 200-499 mg/dLVery High Triglyceride: greater than or equal to 5OO mg/dL Cholesterol 282(H) <200 mg/dL [facility] Comment:Desirable Cholestero l: less than 200 mg/dLBorderline High Cholesterol: 200-239 mg/dLHigh Cholesterol: greater than 239 mg/dL LDL Cholesterol Calculated 182(H) <100 mg/dL [facility] Comment:Desirable LDL: less than 100 mg/dLNear Optimal/Above Optimal LDL: 110- 129 mg/dLBorderline High LDL: 130-159 mg/dLHigh LDL: 160-189 mg/dLVery High LDL: greater than or equal to 190 mg/dL HDL Cholesterol 47 >40 mg/dL [facility] Comment:Desirable HDL: great er than 40 mg/dL Note: This HDL assay may give artificially low results in patients with liver disease. Blood 06/12/2024 2:10 PM EDT 06/12/2024 4:45 PM EDT us Cathleen Mo MD LAB BLOOD ORDERABLES Final Resul t Performing Organization Address [facility] de Phone Number [facility] [address] [place] [address] [phone] * Sed Rate by Modified Westergren (06/12/2024 2:10 PM EDT) Erythrocyte Sedimentation Rate 12 0 - 20 MM/HR [facility] Comment:Patients with polycy themia and many hemoglobin abnormalitiesmay have depressed sed rates whereas patients with anemiamay have elevated sed rates. Blood Venous blood specimen / Unknown 06/12/2024 2:10 PM EDT 06/12/2024 4:45 PM EDT us Cathleen Mo MD LAB BLOOD ORDERABLES Final Resul t Performing Organization Address City/[facility]/ZIP Co de Phone Number [facility] [address] [place] [address] [phone] * C-reactive Protein (06/12/2024 2:10 PM EDT) C Reactive Protein 0.13 < or = 0.50 mg/dL [facility] Blood Venous blood specimen / Unknown 06/12/2024 2:10 PM EDT 06/12/2024 4:45 PM EDT Cathleen Mo MD LAB BLOOD ORDERABLES Final Resul t Performing Organization Address [facility] Co de Phone Number [facility] [address] [place] [address] [phone] * Uric acid (06/12/2024 2:10 PM EDT) Uric Acid 4.4 2.4 - 5.7 mg/dL [facility] Blood Venous blood specimen / Unknown 06/12/2024 2:10 PM EDT 06/12/2024 4:45 PM EDT Cathleen Mo MD LAB BLOOD ORDERABLES Final Resul t Performing Organization Address [facility] Co de Phone Number [facility] [address] [place] [address] [phone] * T4, Free (06/12/2024 2:10 PM EDT) Free T4 (Free Thyroxine) 1.13 0.71 - 1.85 ng/dL [facility] 06/12/2024 2:10 PM EDT 06/12/2024 4:45 PM EDT Cathleen Mo MD LAB BLOOD ORDERABLES Final Resul t Performing Organization Address [facility] Co de Phone Number [facility] [address] [place] [address] [phone] * (ABNORMAL) Comprehensive Metabolic Panel (06/12/2024 2:10 PM EDT) Sodium 142 135 - 145 mmol/L [facility] Potassium 4.2 3.3 - 5.1 mmol/L [facility] Chloride 98 96 - 108 mmol/L [facility] Carbon Dioxide 33(H) 22 - 29 mmol/L [facility] Anion Gap 15 12 - 20 [facility] Urea Nitrogen (BUN) 15 9 - 16 mg/dL [facility] Creatinine, Serum 0.67 0.5 - 1.4 mg/dL [facility] Estimated Glomerular Filt Rate >60 [facility] Comment:Chronic Kidney Disea se: Estimated GFR < 60 mL/min/1.43t9Joeooe Kidney Disease: Estimated GFR < 15 mL/min/1.73m2 Glucose 181(H) 60 - 115 mg/dL [facility] Calcium 9.7 8.4 - 10.2 mg/dL [facility] Bilirubin, Total 0.5 0.0 - 1.0 mg/dL [facility] Aspartate Amino Transferase 30 5 - 31 U/L [facility] Alanine Aminotransferase 31 0 - 31 U/L [facility] Total Protein 8.3(H) 6.5 - 8.0 g/dL [facility] Albumin Level 4.3 3.5 - 5.0 g/dL [facility] Alkaline Phosphatase 95 39 - 117 U/L [facility] Blood Venous blood specimen / Unknown 06/12/2024 2:10 PM EDT 06/12/2024 4:45 PM EDT us Cathleen Mo MD LAB BLOOD ORDERABLES Final Resul t [facility] [address] [place] [phone] * (ABNORMAL) POCT glycosylated hemoglobin (Hgb A1c) (06/12/2024 9:39 AM EDT) Hemoglobin A1C 6.8(A) 4.0 - 6.0 % QC Media Lot # [id number] Lot# Expiration Date ,026 Blood Capillary blood specimen / Unknown 06/12/2024 9:39 AM EDT Cathleen Mo MD POINT OF CARE TEST ENTER/EDIT OR DERABLES Final Result * (ABNORMAL) POCT glucose manually resulted (06/12/2024 9:38 AM EDT) Pathologist [facility] Glucose Blood, POC 204(A) 60 - 200 mg/dL QC Media Lot # [id number] Lot# Expiration Date 8859,025 Blood Capillary blood specimen / Unknown 06/12/2024 9:38 AM EDT Cathleen Mo MD POINT OF CARE TEST ENTER/EDIT OR DERABLES Final Result * Referral to Pulmonology (06/07/2024) [facility] OUTPATIENT REFERRAL ORDERABLES F inal Result * Cologuard?? colon cancer screening (03/26/2024 11:10 AM EST) Pathologist [facility] Cologuard Result Negative Negative 03/30/19 5:10 PM EST [employer] (CLIA #:[id number]) Comment: NEGATIVE TEST RESULT. A negative Cologuard [...] screened with both Cologuard and colonoscopy. (Martha North al, N Engl J Med 2014;370(14):1286- 1297) The normal value (reference range) for this assay is negative. COLOGUARD RE-SCREENING RECOMMENDATION: Periodic colorectal cancer screening is an important part of preventive healthcare for asymptomatic individuals at average risk for colorectal cancer. ??Following a negative Cologuard result, the [place] Cancer Society and U.S. Multi-Society Task Force screening guidelines recommend a Cologuard re-screening interval of 3 years. References: [place] Cancer Society Guideline for Colorectal Cancer Screening: https://www.cancer.org/cancer/gqvyf-noqajb-ixkyyt/ndpjovohu-izwnrhfea-mkvzhen/ac s-rec ommendations.html.; Holland DK, Ivis PERDOMO, Stalin LarkinK, Colorectal Cancer Screening: Recommendations for Physicians and Patients from the U.S. Multi-Society Task Force on Colorectal Cancer Screening , Am J Gastroenterology 2017; 112:3063-6814. TEST DESCRIPTION: Composite algorithmic analysis of stool [...] screened with both Cologuard and colonoscopy. (Martha North al, N Engl J Med 2014;370(14):8122-4992.) Cologuard may produce a false negative or false positive result (no colorectal cancer or precancerous polyp present at colonoscopy follow up). A negative Cologuard test result does not guarantee the absence of CRC or advanced adenoma (pre-cancer). The current Cologuard screening interval is every 3 years. ([place] Cancer Society and U.S. Multi-Society Task Force). Cologuard performance data in a 10,000 patient pivotal study using colonoscopy as the reference method can be accessed at the following location: www.[employer]/results. Additional description of the Cologuard test process, warnings and precautions can be found at www.cologuard.com. Stool specimen (specimen) 03/26/2024 11:10 AM EST 03/27/2024 11:53 AM EST Cathleen Mo MD LAB MOLECULAR DIAGNOSTICS ORDERA BLES Final Result Performing Organization Address City/[facility] Co de Phone Number [employer] (CLIA #:[id number]) [place]anie [place] [address], * Albumin, Random Urine W/Creatinine (11/08/2023 1:45 PM EDT) Creatinine, Urine 67.59 mg/dL [facility] Microalbumin Urine <5.0 mg/L [facility] Microalbum Creatinine Ratio Ur TNP <30 ug/mg cr [facility] Comment:Unable to calculate albumin/creatinine ratio due to lowmicroalbumin or creatinine result. Urine 11/08/2023 1:45 PM EDT 11/08/2023 3:56 PM EDT Cathleen Mo MD LAB URINE ORDERABLES Final Resul t Performing Organization Address [facility]/ZIP Co de Phone Number [facility] [address] [place] [address] [phone] * BI Mammogram Screening Tomosynthesis Bilateral (07/13/2023 11:10 AM EDT) Anatomical Region Laterality Modality Breast Bilateral Mammography 07/13/2023 11:1 0 AM EDT Narrative 07/18/2023 3:46 PM EDT ? [facility] ? [address] ?[place] [address] ? Mammography Report ? Signed ? Patient: Joseph Shannonpo,Evelyn ?MR# ?? : [id number] ? : 1965 ?Acct:[id number] ? Age/Sex: 57 / F ?ADM Date: 07/13/23 ? Loc: HO.MAMMO ? Attending Dr: Cathleen Mo MD ? Ordering Physician: Cathleen Mo MD ?Results: 1Negative ? Date of Service: 07/13/23 ?Follow Up: 1 Year From Orig ?? inal Mammogram ? Procedure(s): MM tomosynthesis screening BI ?? Accession Number(s): [id number] ? cc: Cathleen Mo MD ? EXAMINATION: [...] 1543 ? DD/ 1110 ? TD/TT: ? Heel Former: ? Procedure Note Abdelrahman, Image - 07/18/2023 [facility] [address] [place] [address] Mammography Report Signed Patient: Sandra Rose DMR# : [id number] : 1965Acct:[id number] Age/Sex: 57 / FADM Date: 07/13/23 Loc: [facility] Attending Dr: Cathleen Mo MD Ordering Physician: Cathleen Mo MDResults: 1Negative Date of Service: 07/13/23Follow Up: 1 Year From Orig inal Mammogram Procedure(s): MM tomosynthesis screening BI Accession Number(s): [id number] cc: Cathleen Mo MD EXAMINATION: MM SCREENING [...] in OV> 07/18/23 1543 DD/ 1110 TD/TT: Heel Former: Cathleen Mo MD IMG BI PROCEDURES Final Result * HIV-1/2 Antigen and Antibodies, Fourth Generation, with Reflexes (05/12/2023 11:06 AM EST) HIV AB/AG Nonreactive Nonreactive [facility] Comment:HIV-1 p24 Ag and/or HIV-1/HIV-2 Ab not detected.A test result that is nonreactive does not exclude thepossibility of exposure to or infection with HIV-1 and/orHIV-2. Nonreactive results in this assay for individualswith prior exposure to HIV-1 and/or HIV-2 may be due toantigen and antibody levels that are below the limit ofdetection of this assay.The CytRxniVtrim HIV Ag/Ab Combo assay result andsupplemental assay results should be interpreted inconjunction with the patient's clinical presentation,history and other laboratory results. If the results areinconsistent with clinical evidence, additional testing issuggested to confirm the result. Blood Venous blood specimen / Unknown 05/12/2023 11:06 AM EST 05/12/2023 1:03 PM EST Cathleen Mo MD LAB BLOOD ORDERABLES Final Resul t [facility] [address] [place] [address] [phone] * Thinprep TIS PAP And HPV mRNA E6/E7 With Reflex To HPV 16,18/45 (04/29/2022 11:38 AM EST) Clinical Information: ROUTINE PAP [facility] LMP: NONE GIVEN [facility] [place] [facility] [facility] Prev. PAP: NONE GIVEN [facility] [place] [facility] [facility] Prev. BX: NONE GIVEN [facility] [place] [facility] [facility] SOURCE: None given [facility] Statement Of Adequacy: [facility] Comment: Satisfactory for evaluation. Endocervical/transformation zone component present. Interpretation/ Result: Negative for intraepithelial lesion or malignancy. [facility] COMMENT: This Pap test has been evaluated with computer assisted technology. [facility] [place] [facility] Cytotechnologis t: [facility] [place] [facility] Comment: SXA, CT(ASCP) CT screening location: [address] ??[phone] Review Cytotechnologis t: [facility] [place] [facility] Comment: JNA, CT(ASCP) CT screening location: [address] ??[address] (Always Message) [facility] Comment: EXPLANATORY NOTE: The Pap is a [...] HPV nRNA E6/E7 Not Detected Not Detected [employer] Comment: Methodology: Coat Joiner-Mediated Amplification This assay detects E6/E7 viral messenger RNA (mRNA) from 14 high-risk HPV types (16,18,31,33,35,39,45,51,52,56,58,59,66,68). Cervical sources are required for HPV testing. If a vaginal source from a patient who has had a total hysterectomy with removal of cervix was submitted, please contact the testing laboratory for alternative testing options. For additional information, please refer to http://education.[employer]/faq/FXV801d9 (This link if provided for information/ educational purposes only.) 04/29/2022 11:3 8 AM EST 04/30/2022 9:58 AM EST Narrative [facility] - 05/05/2022 2:36 PM EST FASTING: UNKNOWN us Cathleen Mo MD LAB PATHOLOGY ORDERABLES Final R esult [facility] [address] [place] [address] [facility] [address], ([address]) [place] [phone] from Last 3 Months or Most Recently Relevant to Health Maintenance Insurance [facility] MEDICAID STAND ADULT Care Teams Sliver Handler Relationship Specialty Start Date End Date Cathleen Mo MD [address] [place] [address] PCP - General Family Medicine 03/28/18 Tad Baez, PharmD [address] [place] [phone] Pharmacist Internal Medicine 03/16/24 Bhumi Monroe, RN [address] [place] [phone] Canine Service Instructor TrainerCar Clerk Pullman 05/21/24 [facility] 05/04/17
--- OUTSIDE RECORDS SUMMARY | 2024-07-12 16:49 | XMS_ITS | Encounter Summary ---
Author Organization [employer] Address [address] [facility] 7t [place] [address] Care Team Providers Care Mortician Supplies Sales Representative Name Role Phone Cathleen Sears MD Primary Care Provider [phone] Tad Baez PharmD Unavailable [phone] Bhumi Monroe RN Unavailable [phone] Reason for Referral * Consultation (Routine) - Closed Specialty Diagnoses / Procedures Referred By Sina nicolas Referred To Contact Otolaryngology Diagnoses Parotid mass Sensorineural hearing loss (SNHL) of both ears Cathleen Sears MD [address] [place] [address] Phone: tel: fax: Referral ID Status Reason Start Date Expiration Date V isits Requested Visits Authorized [id number] Closed Specialty Services Required 06/20/2024 06/20/2025 1 1 Encounter Details Date Type Department Care Team (Late st Contact Info) Description 06/20/2024 Orders Only [facility] MEDICINE [address] [place] [address] Cathleen Sears MD [address] [place], [place] [phone] Parotid mass (Primary Dx); Sensorineural hearing loss (SNHL) of both ears Social History Tobacco Use Types Packs/Day Years [...] Description 08/16/2024 1:45 PM EDT Office Visit [facility] OPTOMETRY [address] [place], [place] [phone] Silvia Cameron, OD [address] [place] [address] Scheduled Referrals Name Type Priority Associated Diagnoses Orde r Schedule Referral to ENT Outpatient Referral Routine Parotid mass Sensorineural hearing loss (SNHL) of both ears Expected: 06/20/2024 (Approximate), Expires: 06/20/2025 documented as of this encounter Visit Diagnoses Diagnosis Parotid mass- Primary Swelling, mass, or lump in head and neck Sensorineural hearing loss (SNHL) of both ears documented in this encounter Additional Health Concerns Assessment Noted Time PHQ-9 Depression Total Score: 2 07/22/19 10:34 AM EDT documented as of this encounter Care Teams Mortician Supplies Sales Representative Relationship Specialty Start Date End Date Cathleen Sears MD [address] [place] [address] PCP - General Family Medicine 03/28/18 Tad Baez, Sanjiv [address] [place] [address] Pharmacist Internal Medicine 03/16/24 Bhumi Monroe, BRIANNA [address] [place] [address] Furnace FirerPackaging Inspector 05/21/24 [facility] 05/04/17 documented as of this encounter
--- OUTSIDE RECORDS SUMMARY | 2024-07-12 16:49 | XMS_ITS | Encounter Summary ---
Author Organization [employer] Address [address] [place] [address] Care Team Providers Care Real Estate Financial Analyst Name Role Phone Cathleen Sears MD Primary Care Provider [phone] Ivett Smith RN Unavailable [phone] Tad Baez PharmD Unavailable [phone] Bhumi Monroe RN Unavailable [phone] Reason for Visit * Reason Onset Date Comments FYI 08/16/2023 Encounter Details Date Type Department Care Team (Late st Contact Info) Description 08/16/2023 Telephone [facility] MEDICINE [address] [place], [place] [phone] Cathleen Sears MD [address] [place], [place] [phone] FY Social History Tobacco Use Types Packs/Day Years [...] calling to inform pt is currently at [facility] due to shortness of breath . documented in this encounter Plan of Treatment Upcoming Encounters Date Type Department Care Team (Late st Contact Info) Description 08/16/2024 1:45 PM EDT Office Visit [facility] OPTOMETRY [address] [place] [address] Silvia Cameron, OD [address] [place] [address] documented as of this encounter Visit Diagnoses Not on filedocumented in this encounter Additional Health Concerns Assessment Noted Time PHQ-9 Depression Total Score: 2 07/22/19 24 10:34 AM EDT documented as of this encounter Care Teams Real Estate Financial Analyst Relationship Specialty Start Date End Date Cathleen Sears MD [address] [place] [address] PCP - General Family Medicine 03/28/18 Ivett Smith, RN [address] [place] [address] Registered Nurse Case Management 12/30/22 01/24/24 Tad Baez, Sanjiv [address] [place] [phone] Pharmacist Internal Medicine 03/16/24 Bhumi Monroe, BRIANNA [address] [place] [address] Bottling Equipment Sales RepresentativeTaping Foreman 05/21/24 [facility] 05/04/17 documented as of this encounter
--- OUTSIDE RECORDS SUMMARY | 2024-07-12 16:49 | XMS_ITS | Encounter Summary ---
Author Organization [email or web address] Address [address] [facility] [address] [place] [address] Care Team Providers Care Health Teacher Name Role Phone Cathleen Sears MD Primary Care Provider Tad Baez PharmD Unavailable [phone] Bhumi Monroe RN Unavailable [phone] Reason for Visit * Reason Comments Care Coordination Appt reminder Encounter Details Date Type Department Care Team (Latest Contact Info) Description 07/11/2024 Patient Outreach [facility] MEDICINE [address] [place], [place] [phone] Cathleen Sears MD [address] [place], [place] [phone] Care Coordination (Appt reminder) Social History Tobacco [...] encounter Progress Notes * Nicolasa Herrera - 07/11/2024 10:48 AM EDT CHW Nicolasa Herrera placed outbound call to patient introducing herself from [facility] CM Department, in regard to remind patient of appt for 07/12/24 @ 145PM with [facility] speech and hearing. Patient's name and was confirmed. Patient is aware and confirmed will be available and has no barriers on attending this appointment. Patient verbalized understanding and agrees with plan. PT1 will hop picker patient at 115pm and patient is aware. documented in this encounter Plan of Treatment Upcoming Encounters Date Type Department Care Team (Late st Contact Info) Description 08/16/2024 1:45 PM EDT Office Visit [facility] OPTOMETRY [address] [place] [address] Silvia Cameron, OD [address] [place] [address] documented as of this encounter Visit Diagnoses Not on filedocumented in this encounter Additional Health Concerns Assessment Noted Time PHQ-9 Depression Total Score: 2 07/22/19 24 10:34 AM EDT documented as of this encounter Care Teams Health Teacher Relationship Specialty Start Date End Date Cathleen Sears MD [address] [place] [address] PCP - General Family Medicine 03/28/18 Tad Baez, LaurenD [address] [place] [address] Pharmacist Internal Medicine 03/16/24 Bhumi Monroe, BRIANNA [address] [place] [address] Radio Sales Account ExecutiveFighting Vehicle Infantryman 05/21/24 [facility] 05/04/17 documented as of this encounter
--- OUTSIDE RECORDS SUMMARY | 2024-07-12 16:49 | XMS_ITS | Encounter Summary ---
Author Organization [employer] [facility] Address [address] [place] [address] Care Team Providers Care Rn Community Health Name Role Phone Cathleen Sears MD Primary Care Provider Ivett Smith RN Unavailable [phone] Tad Baez PharmD Unavailable [phone] Bhumi Monroe RN Unavailable [phone] Encounter Details Date Type Department Care Team (Late Contact Info) Description 04/29/2022 Orders Only [facility] MEDICINE [address] [place] [address] Cathleen Sears MD [address] [place], [place] [phone] Dental decay (Primary Dx) Social History Tobacco [...] Description 08/16/2024 1:45 PM EDT Office Visit [facility] OPTOMETRY [address] [place] [address] Silvia Cameron, OD [address] [place] [address] documented as of this encounter Visit Diagnoses Diagnosis Dental decay- Primary Unspecified dental caries documented in this encounter Care Teams Rn Community Health Relationship Specialty Start Date End Date Cathleen Sears MD [address] [place] [address] PCP - General Family Medicine 03/28/18 Ivett Smith, BRIANNA [address] [place] [address] Registered Nurse Case Management 12/30/22 01/24/24 Tad Baez PharmD [address] [place] [address] Pharmacist Internal Medicine 03/16/24 Bhumi Monroe, BRIANNA [address] [place] [address] Drafter Chief DesignSenior Field Service Engineer 05/21/24 [facility] 05/04/17 documented as of this encounter
--- OUTSIDE RECORDS SUMMARY | 2024-07-12 16:49 | XMS_ITS | Encounter Summary ---
Author Organization [employer] Address [address] 7t [place] [address] Care Team Providers Care Sales Audit Clerk Name Role Phone Cathleen Sears MD Primary Care Provider [phone] Tad Baez PharmD Unavailable [phone] Bhumi Monroe RN Unavailable [phone] Reason for Visit * Reason Onset Date Comments oygen return 07/10/2024 Encounter Details Date Type Department Care Team (Late st Contact Info) Description 07/10/2024 Telephone [facility] WALK[facility]IN CENTER [address] [place], [place] [phone] Bert Banegas MD [address] [place], [place] [phone] oygen return Social History Tobacco Use Types Packs/Day Years [...] encounter Miscellaneous Notes * Telephone Encounter - Angela Barbour RN - 07/10/2024 12:13 PM EDT TC placed to patient with CESAR Newman pt was seen in [facility] [place] last Tuesday [facility] [employer] [facility] pt states that her MANAGER MSW is suppose to work today and if she comes in she will ask her toreturn the tank. documented in this encounter Plan of Treatment Upcoming Encounters Date Type Department Care Team (Late st Contact Info) Description 08/16/2024 1:45 PM EDT Office Visit [facility] OPTOMETRY [address] [place] [address] Silvia Cameron, OD [address] [place] [address] documented as of this encounter Visit Diagnoses Not on filedocumented in this encounter Additional Health Concerns Assessment Noted Time PHQ-9 Depression Total Score: 2 07/22/19 24 10:34 AM EDT documented as of this encounter Care Teams Sales Audit Clerk Relationship Specialty Start Date End Date Cathleen Sears MD [address] [place] [address] PCP - General Family Medicine 03/28/18 Tad Baez, LaurenD [address] [place] [address] Pharmacist Internal Medicine 03/16/24 Bhumi Monroe RN [address] [place] [address] Commission AuditorCoding Educator 05/21/24 [facility] Care 05/04/17 documented as of this encounter
--- OUTSIDE RECORDS SUMMARY | 2024-07-12 16:49 | XMS_ITS | Encounter Summary ---
Author Organization [employer] Address [address] 7t [place] [address] Care Team Providers Care Pantry Steward/Stewardess Name Role Phone Cathleen Sears MD Primary Care Provider [phone] Ivett Smith RN Unavailable [phone] Tad Baez PharmD Unavailable [phone] Bhumi Monroe RN Unavailable [phone] Encounter Details Date Type Department Care Team (Late st Contact Info) Description 09/08/2023 Telephone [facility] MEDICINE [address] [place], [place] [phone] Cathleen Sears MD [address] [place], [place] [phone] Social History Tobacco Use Types Packs/Day Years [...] Description 08/16/2024 1:45 PM EDT Office Visit [facility] OPTOMETRY [address] [place] [address] Tarka, Silvia, OD [address] [place] [address] documented as of this encounter Visit Diagnoses Not on filedocumented in this encounter Additional Health Concerns Assessment Noted Time PHQ-9 Depression Total Score: 2 07/22/19 24 10:34 AM EDT documented as of this encounter Care Teams Pantry Steward/Stewardess Relationship Specialty Start Date End Date Cathleen Sears MD [address] [place] [address] PCP - General Family Medicine 03/28/18 Ivett Smith RN [address] [place] [address] Registered Nurse Case Management 12/30/22 01/24/24 Tad Baez, LaurenD 230 [place] [address] Pharmacist Internal Medicine 03/16/24 Bhumi Monroe RN [address] [place] [address] Service SpecialistTobacco Sprayer 05/21/24 [facility] 05/04/17 documented as of this encounter
== END 2024-07-12 13:45 | disposition home or self-care (01) ==
LOC: HO.SH 13:44
PROVIDERS: Visit Provider Family Medicine
DX: Z01.118 Encounter for examination of ears and hearing with other abnormal findings (principal); H90.3 Sensorineural hearing loss, bilateral
CPT/HCPCS: 92557; 92567

== ENCOUNTER 2024-07-26 15:17 | Outpatient (REF) | payer MEDICAID, SELFPAY ==
--- NOTE | ~2024-07-26 | XR_ITS ---
EXAMINATION: XR CHEST 2 VIEWS HISTORY: persistent cough and SOB COMPARISON: Comparison is made with the prior examination dated 04/02/2024. FINDINGS: PA and lateral views of the chest are submitted. The lungs are hyperinflated, consistent with COPD. There are patchy opacities at the right lung base, compatible with pneumonia. The left lung is clear. There is no pleural effusion, pneumothorax, or pulmonary vascular congestion. The heart is enlarged. The bones are intact. XR/XR chest 2V IMPRESSION: Cardiomegaly. Right lower lobe pneumonia. Follow-up is recommended to document resolution. Electronically signed by: Jackson Mott MD 07/26/2024 03:39 PM EDT
--- OUTSIDE RECORDS SUMMARY | 2024-07-26 17:05 | XMS_ITS | Encounter Summary ---
Author Organization [employer] Address [address] [facility] 7t [place] [address] Care Team Providers Care Entry Level Sales Consultant Name Role Phone Cathleen Sears MD Primary Care Provider [phone] Tad Baez PharmD Unavailable [phone] Bhumi Monroe RN Unavailable [phone] Reason for Referral * Consultation (Routine) - Closed Specialty Diagnoses / Procedures Referred By Sina nicolas Referred To Contact Otolaryngology Diagnoses Parotid mass Sensorineural hearing loss (SNHL) of both ears Cathleen Sears MD [address] [place] [address] Phone: tel: fax: Referral ID Status Reason Start Date Expiration Date V isits Requested Visits Authorized [id number] Closed Specialty Services Required 06/20/2024 06/20/2025 1 1 Encounter Details Date Type Department Care Team (Late st Contact Info) Description 06/20/2024 Orders Only [facility] 230 [place] [address] Cathleen Sears MD [address] [place], [place] [phone] Parotid mass (Primary Dx); Sensorineural hearing loss [...] 1:45 PM EDT Office Visit [facility] OPTOMETRY [address] [place] [address] Silvia Cameron, OD [address] [place] [address] 09/04/2024 1:00 PM EDT Office Visit [facility] MED[facility] [address] [place] [address] Cathleen Sears MD [address] [place] [address] Scheduled Referrals Name Type Priority Associated Diagnoses [...] documented as of this encounter Care Teams Entry Level Sales Consultant Relationship Specialty Start Date End Date Cathleen Sears MD [address] [place] [address] PCP - General Family Medicine 03/28/18 Tad Baez, LaurenD [address] [place] [address] Pharmacist Internal Medicine 03/16/24 Bhumi Monroe, BRIANNA [address] [place] [address] Retail Financial AnalystInformatics Pharmacist 05/21/24 [facility] 05/04/17 documented as of this encounter
--- OUTSIDE RECORDS SUMMARY | 2024-07-26 17:05 | XMS_ITS | Encounter Summary ---
Author Organization [employer] [facility] Address [address] 7t [place] [address] Care Team Providers Care Director Digital Catalogue Name Role Phone Cathleen Sears MD Primary Care Provider Ivett Smith RN Unavailable [phone] Tad Baez PharmD Unavailable [phone] Bhumi Monroe RN Unavailable [phone] Encounter Details Date Type Department Care Team (Late Contact Info) Description 04/29/2022 Orders Only [facility] MEDICINE 230 [place] [address] Cathleen Sears MD 230 [place], [place] [phone] Dental decay (Primary Dx) Social History Tobacco [...] Description 08/16/2024 1:45 PM EDT Office Visit [facility] OPTOMETRY [address] [place] [address] Silvia Cameron, OD 267 [place] [address] 09/04/2024 1:00 PM EDT Office Visit [facility] MEDICINE 230 [place] [address] Cathleen Sears MD [address] [place] [address] documented as of this encounter Visit Diagnoses Diagnosis Dental decay- Primary Unspecified dental caries documented in this encounter Care Teams Director Digital Catalogue Relationship Specialty Start Date End Date Cathleen Sears MD [address] [place] [address] PCP - General Family Medicine 03/28/18 Ivett Smith RN [address] [place] [address] Registered Nurse Case Management 12/30/22 01/24/24 Tad Baez PharmD [address] [place] [address] Pharmacist Internal Medicine 03/16/24 Bhumi Monroe RN [address] [place] [address] Manufacturing Support EngineerSheet Metal Installer 05/21/24 [facility] 05/04/17 documented as of this encounter
--- OUTSIDE RECORDS SUMMARY | 2024-07-26 17:05 | XMS_ITS | Encounter Summary ---
Author Organization [employer] Address [address] [facility] 7t [place] [address] Care Team Providers Care User Interface Engineer Name Role Phone Cathleen Sears MD Primary Care Provider Ivett Smith RN Unavailable [phone] Tad Baez PharmD Unavailable [phone] Bhumi Monroe RN Unavailable [phone] Encounter Details Date Type Department Care Team (Late st Contact Info) Description 03/19/2022 Orders Only [facility] MED & PEDS [address] [place], [place] [phone] Laura Nova LPN Social History Tobacco Use [...] Description 08/16/2024 1:45 PM EDT Office Visit [facility] OPTOMETRY [address] [place], [place] [phone] Silvia Cameron, OD [address] [place], [place] [phone] 09/04/2024 1:00 PM EDT Office Visit [facility] MEDICINE [address] [place], [place] [phone] Cathleen Sears MD [address] [place] [address] documented as of this encounter Visit Diagnoses Not on filedocumented in this encounter Care Teams User Interface Engineer Relationship Specialty Start Date End Date Cathleen Sears MD [address] [place] [address] PCP - General Family Medicine 03/28/18 Ivett Smith, BRIANNA [address] [place] [address] Registered Nurse Case Management 12/30/22 01/24/24 Tad Baez, Sanjiv [address] [place] [address] Pharmacist Internal Medicine 03/16/24 Bhumi Monroe, BRIANNA [address] [place] [address] Oyster BuyerDirector Of Corporate Communications 05/21/24 [facility] Care 05/04/17 documented as of this encounter
--- OUTSIDE RECORDS SUMMARY | 2024-07-26 17:05 | XMS_ITS | Encounter Summary ---
Author Organization [employer] Address [address] 7[address] [place] [address] Care Team Providers Care Cab Starter Name Role Phone Cathleen Sears MD Primary Care Provider [phone] Tad Baez PharmD Unavailable [phone] Bhumi Monroe RN Unavailable [phone] Reason for Visit * Reason Onset Date Comments Pt1 04/10/2024 Encounter Details Date Type Department Care Team (Late st Contact Info) Description 04/10/2024 Telephone [facility] MEDICINE [address] [place], [place] [phone] Cathleen Sears MD [address] [place], [place] [phone] Pt1 Social History Tobacco Use Types Packs/Day [...] Y/N: Yes Provider name or facility name: [address] [place] [address] [address] [address] [facility] Escort needed: Y/N: No Do you have a wheelchair: Y/N: No If yes- Manual or electric: Visits: (3 x Month) Pt has Apt this Tuesday documented in this encounter Plan of Treatment Upcoming Encounters Date Type Department Care Team ([facility] st Contact Info) Description 08/16/2024 1:45 PM EDT Office Visit [facility] OPTOMETRY [address] [place] [address] Bearaleigh Silvia, OD [address] [place] [address] 09/04/2024 1:00 PM EDT Office Visit [facility] MEDICINE [address] [place] [address] Cathleen Sears MD [address] [place] [address] documented as of this encounter Visit Diagnoses Not on filedocumented in this encounter Additional Health Concerns Assessment Noted Time PHQ-9 Depression Total Score: 2 07/22/19 10:34 AM EDT documented as of this encounter Care Teams Cab Starter Relationship Specialty Start Date End Date Cathleen Sears MD 230 [place] [address] PCP - General Family Medicine 03/28/18 Tad Baez, PharmD 230 [place] [address] Pharmacist Internal Medicine 03/16/24 Bhumi Monroe, BRIANNA [address] [place] [address] Electronic Musical Instrument RepairerOrthopaedic General 05/21/24 [facility] 05/04/17 documented as of this encounter
--- OUTSIDE RECORDS SUMMARY | 2024-07-26 17:05 | XMS_ITS | Encounter Summary ---
Author Organization [employer] Address [address] 7t [place] [address] Care Team Providers Care Pomologist Name Role Phone Cathleen Sears MD Primary Care Provider [phone] Tad Baez PharmD Unavailable [phone] Bhumi Monroe RN Unavailable [phone] Reason for Visit * Reason Comments Cough Starting feeling sym ptoms 7 to 8 days ago. O2 is usually at 6 liters at home, when resting she puts it at 4 liters. Nasal Congestion Green Phlem Encounter Details Date Type Department Care Team (Late st Contact Info) Description 07/26/2024 3:00 PM EDT Office Visit [facility] WALK-IN CENTER 230 [place] [address] COPD with acute exacerbation (CMS/HCC) (Primary Dx) Social History Tobacco Use Types [...] Sign Reading Time Taken Comments Blood Pressure 133/86 07/26/2024 2:33 PM EDT Pulse 102 07/26/2024 2:33 PM EDT Temperature 36.8 ??C (98.3 ??F) 07/26/2024 2:33 PM ED T Respiratory Rate - - Oxygen Saturation 93% 07/26/2024 2:33 PM EDT Inhaled Oxygen Concentration - - Weight - - Height - - Body Mass Index - - documented in this encounter Plan of Treatment Upcoming Encounters Date Type Department Care Team (Late st Contact Info) Description 08/16/2024 1:45 PM EDT Office Visit [facility] OPTOMETRY [address] [place] [address], [place] [address] Silvia Cameron, OD [address] [place] [address] 09/04/2024 1:00 PM EDT Office Visit [facility] MEDICINE [address] [place] [address] Cathleen Sears MD [address] [place] [address] documented as of this encounter Procedures Procedure Name Priority Date/Time Associated Diagnosis Comments XR CHEST 2 VIEWS STAT 07/26/2024 3:17 PM EDT COPD with acute exacerbation (CMS/HCC) documented in this encounter Results * XR Chest 2 Views (07/26/2024 3:17 PM EDT) Anatomical Region Laterality Modality Chest Radiographic Evon ging 07/26/2024 3:17 PM EDT Narrative 07/26/2024 3:42 PM EDT ?[facility] ?[address] ?[place] [address] ?XRay Report ? Signed ? Patient: Sandra Rose ?MR# ?? : [id number] ? : 1965 ?Acct:[id number] ? Age/Sex: 58 / F ?ADM Date: 07/26/24 ? Loc: HO.HHCX ? Attending Dr: Laura Shirley DO ? Ordering Physician: Laura Shirley DO ?? Date of Service: 07/26/24 ?? Procedure(s): XR chest 2V ?? Accession Number(s): [id number] ? cc: Laura Shirley DO ? EXAMINATION: ??XR CHEST 2 VIEWS ? HISTORY: persistent cough and SOB ? COMPARISON: Comparison is made with the prior examination dated ?? 04/02/2024. ? FINDINGS: ??PA and lateral views of the chest are submitted. The lungs ?? are hyperinflated, consistent with COPD. There are patchy opacities at ?? the right lung base, compatible with pneumonia. The left lung is clear. ?? There is no pleural effusion, pneumothorax, or pulmonary vascular ?? congestion. ??The heart is enlarged. ??The bones are intact. ? XR/XR chest 2V ?? IMPRESSION: ?? Cardiomegaly. Right lower lobe pneumonia. Follow-up is recommended to ?? document resolution. ? Electronically signed by: ??Jackson Mott MD ??07/26/2024 03:39 PM EDT ?? RP ? Dictated By: ?Jackson Mott MD ? Signed By: ?<Electronically signed by Jackson Mott MD in OV> ?07/26/241538 ? DD/ 1517 ? TD/TT: 07/26/24 1530 ? Case Packer And Sealer: ? Procedure Note Abdelrahman, Image - 07/26/[address] [address] XRay Report Signed Patient: Sandra Rose DMR# : [id number] : 1965Acct:[id number] Age/Sex: 58 / FADM Date: 07/26/24 Loc: HO.HHCX Attending Dr: Laura Shirley DO Ordering Physician: Laura Shirley DO Date of Service: 07/26/24 Procedure(s): XR chest 2V Accession Number(s): [id number] cc: Laura Shirley DO EXAMINATION: XR CHEST 2 VIEWS HISTORY: persistent cough and SOB COMPARISON: Comparison is made with the prior examination dated 04/02/2024. FINDINGS: PA and lateral views of the chest are submitted. The lungs are hyperinflated, consistent with COPD. There are patchy opacities at the right lung base, compatible with pneumonia. The left lung is clear. There is no pleural effusion, pneumothorax, or pulmonary vascular congestion. The heart is enlarged. The bones are intact. XR/XR chest 2V IMPRESSION: Cardiomegaly. Right lower lobe pneumonia. Follow-up is recommended to document resolution. Electronically signed by: Jackson Mott MD 07/26/2024 03:39 PM EDT Dictated By: Jackson Mott MD Signed By: <Electronically signed by Jackson Mott MD in OV> 07/26/24 1539 DD/ 1517 TD/TT: 07/26/24 1530 Case Packer And Sealer: Laura Shirley DO IMG XR PROCEDURES Final Resu lt documented in this encounter Visit Diagnoses Diagnosis COPD with acute exacerbation (CMS/HCC)- Primary documented in this encounter Additional Health Concerns Assessment Noted Time PHQ-9 Depression Total Score: 2 07/22/19 24 10:34 AM EDT documented as of this encounter Care Teams Pomologist Relationship Specialty Start Date End Date Cathleen Sears MD [address] [place] [address] PCP - General Family Medicine 03/28/18 Tad Baez, Sanjiv [address] [place] [address] Pharmacist Internal Medicine 03/16/24 Bhumi Monroe, BRIANNA [address] [place] [address] Corporate Communications InternPump Operator Byproducts 05/21/24 [facility] Care 05/04/17 documented as of this encounter
--- OUTSIDE RECORDS SUMMARY | 2024-07-26 17:05 | XMS_ITS | Encounter Summary ---
Author Organization [employer] Address [address] 7t [place] [address] Care Team Providers Care Square Cutter Name Role Phone Cathleen Sears MD Primary Care Provider Ivett Smith RN Unavailable [phone] Tad Baez PharmD Unavailable [phone] Bhumi Monroe RN Unavailable [phone] Encounter Details Date Type Department Care Team (Late Contact Info) Description 04/12/2022 Abstract [facility] MEDICINE [address] [place], [place] [phone] Cathleen Sears MD [address] [place], [place] [phone] Social History Tobacco Use Types Packs/Day Years [...] 1:45 PM EDT Office Visit [facility] OPTOMETRY [address] [place], [place] [phone] Silvia Cameron, OD [address] [place] [address] 09/04/2024 1:00 PM EDT Office Visit [facility] MEDICINE [address] [place] [address] Cathleen Sears MD [address] [place] [address] documented as of this encounter Procedures Procedure Name Priority Date/Time Associated Diagnosis Comments THINPREP PAP AND HPV DNA REFLEX GENOTYPES 16,18 Routine 02/07/2019 12:00 AM EST documented in this encounter Results * Thinprepr PAP And HPV DNA Reflex Genotypes 16,18 (02/07/2019 12:00 AM EST) us Historical Provider LAB PATHOLOGY ORDERABLES Final Result Performing Organization Address City/State/[facility] Co de Phone Number [facility] [address] [place] [phone] documented in this encounter Visit Diagnoses Not on filedocumented in this encounter Care Teams Square Cutter Relationship Specialty Start Date End Date Cathleen Sears MD [address] [place] [address] PCP - General Family Medicine 03/28/18 Ivett Smith RN [address] [place] [address] Registered Nurse Case Management 12/30/22 01/24/24 Tad Baez, Sanjiv [address] [place] [address] Pharmacist Internal Medicine 03/16/24 Bhumi Monroe, BRIANNA [address] [place] [address] Cafeteria DirectorBakery Sales Clerk 05/21/24 [facility] 05/04/17 documented as of this encounter
--- OUTSIDE RECORDS SUMMARY | 2024-07-26 17:05 | XMS_ITS | Encounter Summary ---
Author Organization [employer] Address [address] [facility] [address] 7t [place] [address] Care Team Providers Care Foil Cutter Name Role Phone Cathleen Sears MD Primary Care Provider [phone] Tad Baez PharmD Unavailable [phone] Bhumi Monroe RN Unavailable [phone] Reason for Visit * Reason Onset Date Comments Care Management 07/19/2024 C3CM- f/u call Encounter Details Date Type Department Care Team (Late st Contact Info) Description 07/19/2024 Telephone [facility] MEDICINE 230 [place] [address] Cathleen Sears MD [address] [place] [address] Care Management (C3CM- f/u call) Social History [...] Telephone Encounter - Bhumi Monroe RN - 07/19/2024 1:24 PM EDT WILMAR contacted [facility] to f/u on BIPAP and O2 portable concentrator. Left v/m requeting return call. WILMAR Monroe RN placed outbound call to patient. Patient's name, and address confirmed. Patient c/o cough with productive yellow phlegm x2 days. Patient states that on 07/15/24, she had takenan anti-anxiety med during the day time and fell asleep with her window open. Patient states she isnot sure if she had taken 1 or 2 tabs. Per patient, did not wake up for several hours. She states her woke her up and per patient, she was very cold and drowsy. Per patient, did not have a blanket on her to keep her warm. She states she urinated on herself while she slept. Per patient, was able to walk herself to her bathroom and was able to shower and change. She states that about 2 days later, she started to develop a cough. Per patient, took a home remedy today (lemon, francia, honey). She states she has noted that the home remedy has helped clear her chest congestion. Per patient, breathing well. She denies CP, SOB, fever, or other symptoms. Per patient, satting at 94% on 6L of O2 right now. CM advised she continue to monitor and f/u sooner if no improvement. She agrees. Patient states she called [facility] to r/s her US and CT. She believes the appt is on 08/28/24 but would like for CM to contact the office to confirm. CM will f/u. Patient confirms attending visit with [facility] on 07/12. CM notified the patient that they have been enrolled in the Care Management Program for 60 days. CMupdated the patient on the progress that has been made toward goals in the past two months. CM questioned patient about what else they would like to work as the patient will be graduated from the program within the next month. No further questions or concerns. CM reinforced direct contact information for any additional questions or concerns. A follow up call will be placed within 10 days, patient agrees withplan. CM called [facility] Centralized Scheduling. Patient scheduled 08/28/24 at 9:30am for the US elastography and the CT is scheduled at 10:00am. Patient should be fasting for at least 8 hours prior to the US. Patient will also need to complete a BUN and CREAT at least [address] CM called patient. Left v/m with details. Advised that PT1 will be set on her behalf. CM will also send message to PCP to inform. CM called [facility]. Spoke with Nery who confirms that patient attended the O2 eval on 07/03. Patient missed the NATALIE f/u on 07/04. CM called sleep medicine. Spoke with Sheryl. Visit has been rescheduled do the next available date which is 03/14/25 at 1:00pm at [address] [facility] documented in this encounter Plan of Treatment Upcoming Encounters Date Type Department Care Team (Late st Contact Info) Description 08/16/2024 1:45 PM EDT Office Visit [facility] OPTOMETRY [address] [place] [address] Silvia Cameron, OD [address] [place] [address] 09/04/2024 1:00 PM EDT Office Visit [facility] MEDICINE 230 [place] [address] Cathleen Sears MD [address] [place] [address] documented as of this encounter Visit Diagnoses Not on filedocumented in this encounter Additional Health Concerns Assessment Noted Time PHQ-9 Depression Total Score: 2 07/22/19 24 10:34 AM EDT documented as of this encounter Care Teams Foil Cutter Relationship Specialty Start Date End Date Cathleen Sears MD [address] [place] [address] PCP - General Family Medicine 03/28/18 Tad Baez, LaurenD [address] [place] [address] Pharmacist Internal Medicine 03/16/24 Bhumi Monroe, BRIANNA [address] [place] [address] Chemical Machine TenderDrug And Alcohol Treatment Specialist 05/21/24 [facility] 05/04/17 documented as of this encounter
--- OUTSIDE RECORDS SUMMARY | 2024-07-26 17:05 | XMS_ITS | Encounter Summary ---
Author Organization [employer] Address [address] [place] [address] Care Team Providers Care Jewelry Cutter Name Role Phone Cathleen Sears MD Primary Care Provider [phone] Ivett Smith RN Unavailable [phone] Tad Baez PharmD Unavailable [phone] Bhumi Monroe RN Unavailable [phone] Encounter Details Date Type Department Care Team (Late st Contact Info) Description 09/08/2023 Telephone [facility] [address] [place], [place] [phone] Cathleen Sears MD [address] [place], [place] [phone] Social History Tobacco Use Types Packs/Day Years [...] Description 08/16/2024 1:45 PM EDT Office Visit [facility] [address] [place] [address] Tarka, Silvia, OD [address] [place] [address] 09/04/2024 1:00 PM EDT Office Visit [facility] [address] [place] [address] Cathleen Sears MD [address] [place] [address] documented as of this encounter Visit Diagnoses Not on filedocumented in this encounter Additional Health Concerns Assessment Noted Time PHQ-9 Depression Total Score: 2 07/22/19 24 10:34 AM EDT documented as of this encounter Care Teams Jewelry Cutter Relationship Specialty Start Date End Date Cathleen Sears MD [address] [place] [address] PCP - General Family Medicine 03/28/18 Ivett Smith RN [address] [place] [address] Registered Nurse Case Management 12/30/22 01/24/24 Tad Baez, LaurenD [address] [place] [address] Pharmacist Internal Medicine 03/16/24 Bhumi Monroe RN [address] [place] [address] Control And Recovery Special TacticsFulfillment Specialist 05/21/24 [facility] 05/04/17 documented as of this encounter
--- OUTSIDE RECORDS SUMMARY | 2024-07-26 17:05 | XMS_ITS | Encounter Summary ---
Author Organization [employer] Address [address] [place] [address] Care Team Providers Care Labor Relations Officer Name Role Phone Cathleen Sears MD Primary Care Provider [phone] Ivett Smith RN Unavailable [phone] Tad Baez PharmD Unavailable [phone] Bhumi Monroe RN Unavailable [phone] Reason for Visit * Reason Onset Date Comments FYI 08/16/2023 Encounter Details Date Type Department Care Team (Late st Contact Info) Description 08/16/2023 Telephone [facility] [address] [place], [place] [phone] Cathleen Sears MD [address] [place], [place] [phone] FYI Social History Tobacco Use Types Packs/Day [...] calling to inform [place] [facility] [place] . documented in this encounter Plan of Treatment Upcoming Encounters Date Type Department Care Team (Late st Contact Info) Description 08/16/2024 1:45 PM EDT Office Visit [facility] [address] [place] [address] Silvia Cameron, OD [address] [place] [address] 09/04/2024 1:00 PM EDT Office Visit [facility] [address] [place], [place] [phone] Cathleen Sears MD [address] [place] [address] documented as of this encounter Visit Diagnoses Not on filedocumented in this encounter Additional Health Concerns Assessment Noted Time PHQ-9 Depression Total Score: 2 07/22/19 10:34 AM EDT documented as of this encounter Care Teams Labor Relations Officer Relationship Specialty Start Date End Date Cathleen Sears MD [address] [place] [address] PCP - General Family Medicine 03/28/18 Ivett Smith, BRIANNA [address] [place] [address] Registered Nurse Case Management 12/30/22 01/24/24 Tad Baez PharmD [address] [place] [address] Pharmacist Internal Medicine 03/16/24 Bhumi Monroe RN [address] [place] [address] Cake Batter MixerCarburetor Expert 05/21/24 [facility] 05/04/17 documented as of this encounter
--- OUTSIDE RECORDS SUMMARY | 2024-07-26 17:05 | XMS_ITS | Encounter Summary ---
Author Organization [employer] Address [address] [place] [address] Care Team Providers Care Inspector Sheet Metal Parts Name Role Phone Cathleen Sears MD Primary Care Provider [phone] Tad Baez PharmD Unavailable [phone] Bhumi Monroe RN Unavailable [phone] Encounter Details Date Type Department Care Team (Late st Contact Info) Description 07/23/2024 Orders Only [facility] [address] [place] [address] Cathleen Sears MD [address] [place], [place] [phone] Metabolic dysfunction-associated steatotic liver disease (MASLD) (Primary Dx); Type 2 diabetes mellitus without complication, without long-term current use of insulin (CMS/HCC) Social History Tobacco Use Types Packs/Day Years [...] 1:45 PM EDT Office Visit [facility] [address] [place] [address] Silvia Cameron, GERARDO [address] [place] [address] 09/04/2024 1:00 PM EDT Office Visit [facility] [address] [place] [address] Cathleen Sears MD [address] [place] [address] Scheduled Orders Name Type Priority Associated Diagnoses Orde r Schedule BUN (Blood Urea Nitrogen) Lab Routine Metabolic dysfunction-associated steatotic liver disease (MASLD) Type 2 diabetes mellitus without complication, without long-term current use of insulin (CMS/HCC) Expected: 07/23/2024 (Approximate), Expires: 07/23/2025 Creatinine, Serum Lab Routine Metabolic dysfunction-associated steatotic liver disease (MASLD) Type 2 diabetes mellitus without complication, without long-term current use of insulin (CMS/HCC) Expected: 07/23/2024, Expires: 07/23/2025 documented as of this encounter Visit Diagnoses Diagnosis Metabolic dysfunction-associated steatotic liver disease (MASLD)- Primary Type 2 diabetes mellitus without complication, without long-term current use of insulin (CMS/HCC) documented in this encounter Additional Health Concerns Assessment Noted Time PHQ-9 Depression Total Score: 2 07/22/19 24 10:34 AM EDT documented as of this encounter Care Teams Inspector Sheet Metal Parts Relationship Specialty Start Date End Date Cathleen Sears MD [address] [place] [id number] PCP - General Family Medicine 03/28/18 Tad Baez, LaurenD [address] [place] [address] Pharmacist Internal Medicine 03/16/24 Bhumi Monroe RN [address] [place] [address] Securities ConsultantTextile Machinery Instructor 05/21/24 [facility] 05/04/17 documented as of this encounter
--- OUTSIDE RECORDS SUMMARY | 2024-07-26 17:05 | XMS_ITS | Clinical Summary ---
Author Organization [employer] Address [address] [place] [address] Care Team Providers Care Junior Mechanical Engineer Name Role Phone Cathleen Mo MD Primary Care Provider [phone] Tad Baez PharmD Unavailable [phone] Bhumi Monroe RN Unavailable Allergies Active Allergy Reactions Criticality Noted Date [...] MOUTH TWICE DAILY 180 tablet 025 Active azithromycin (Zithromax) 250 MG tablet Take 2 tablets PO daily x one day then 1 tablet PO daily x 4 days 6 tablet Active predniSONE (Deltasone) 10 MG tablet Take 6 tabs PO daily x 2 days then 5 tabs PO daily x 2 days then 4 tabs PO daily x 2 days then 3 tabs PO daily x 2 days then 2 tabs PO daily x 2 days then 1 tab PO daily x 2 days then 1/2 tab PO daily x 2 days 43 tablet Active cetirizine (ZyrTEC) 10 MG tablet Take 0.5 tablets (5 mg) by mouth Once per day. 15 tablet 3 025 2025 Active fluticasone (Flonase) 50 MCG/ACT nasal spray Administer 2 sprays into each nostril Once per day. Shake gently. Before first use, prime pump. After use, clean tip and replace cap. 16 g 3 025 2025 Active guaiFENesin (Mucinex) 600 MG 12 hr tablet Take 1 tablet (600 mg) by mouth if needed in the morning and at bedtime for cough or congestion. Do not crush, chew, or split. 30 tablet 025 2025 Active benzonatate (Tessalon Perles) 100 MG capsule Take 1 capsule (100 mg) by mouth if needed in the morning, at noon, and at bedtime for cough for up to 10 days. Do not crush or chew. 30 capsule 025 2024 Active levoFLOXacin (Levaquin) 750 MG tablet Take 1 tablet (750 mg) by mouth Once per day for 7 days. 7 tablet 2024 Active glucose blood test strip Use [...] BY MOUTH EVERYDAY AT NOON 90 tablet 2024 Discontinued doxycycline (Vibramycin) 100 MG capsule Take 1 capsule (100 mg) by mouth 2 times daily for 7 days. Take with at least 8 ounces (large glass) of water, do not lie down for 30 minutes after 14 capsule 025 2024 predniSONE (Deltasone) 10 MG tablet Take 4 tablets (40 mg) by mouth Once per day for 3 days, THEN 3 tablets (30 mg) Once per day for 3 days, THEN 2 tablets (20 mg) Once per day for 3 days, THEN 1 tablet (10 mg) Once per day for 3 days. 30 tablet 025 2024 Active Problems Problem Noted Date [...] leg, and APAP prn - referred to nuclear equipment test engineer as requested by patient's caregiver - prescribe a cane to offload the weight Assessment & Plan (10/12/2023 11:52 AM EDT): - s/p fall - X-ray on 10/04/23 shows mildly displaced fracture of 2nd distal phalanx - continue off weight, ice, elevate leg, and APAP prn - refer to nuclear equipment test engineer as requested by patient's caregiver Popliteal cyst, right 10/02/2023 Assessment & Plan (10/11/2023 11:43 AM EDT): -seen on US during recent admission -repeat US Assessment & Plan (10/02/2023 4:46 PM EDT): -seen on US during recent admission -repeat US Abdominal bloating 09/27/2023 Centrilobular emphysema 09/27/2023 Overview (06/16/2024): - Textile Colorist Dyer: Ashly, last seen on 06/07/24 - Severe [...] supplemental oxygen 4L-6L; recommended to discuss with tool repair technician regarding to oxygen concentrator. - Anticipate to start BiPAP 21/7 mmHg - Strongly encouraged to get COVID vaccine - Keep appt with tool repair technician and resume pulmonary rehab. -Treatment Hx: Budesonide - Formoterol (Symbicort) was changed to Wixela in Jan 2023. Plan to try fluticasone / umeclidinium / vilanterol (Trelegy) per tool repair technician. Colon cancer screening 09/27/2023 Assessment & Plan [...] Plan (06/16/2024 6:01 AM EDT): Following with [facility], last seen in Nov 2023 FIB-4 index 1.78 Check the status of US (advised to call the office with animal daycare provider) Avoid hepatotoxic drugs Maintain non-alcohol life Follow up with GI as scheduled Assessment & Plan (05/03/2024 5:15 PM EST): Following with [facility], last seen in Nov 2023 FIB-4 index 1.78 Check the status of US (advised to call the office with animal daycare provider) Avoid hepatotoxic drugs Maintain non-alcohol life Follow up with GI as scheduled Assessment & Plan (03/26/2024 5:03 PM EST): Following with [facility], last seen in Nov 2023 FIB-4 index 1.78 Check the status of US (advised to call the office with animal daycare provider) Avoid hepatotoxic drugs Maintain non-alcohol life Follow up with GI as scheduled Assessment & Plan (02/06/2024 5:37 AM EST): Following with [facility], last seen in Nov 2023 FIB-4 index 1.78 Check the status of US (advised to call the office with animal daycare provider) Avoid hepatotoxic drugs Maintain non-alcohol life Follow up with GI as scheduled Assessment & Plan (11/29/2023 11:32 AM EDT): Following with [facility], last seen in May 2023 FIB-4 index 1.78 Check the status of US Avoid hepatotoxic drugs Maintain non-alcohol life Follow up with GI as scheduled Assessment & Plan (10/11/2023 11:42 AM EDT): Following with [facility], last seen in May 2023 FIB-4 index 1.78 Check the status of US Avoid hepatotoxic drugs Maintain non-alcohol life Follow up with GI as scheduled Assessment & Plan (10/02/2023 4:34 PM EDT): Following with [facility], last seen in May 2023 FIB-4 index 1.78 Check the status of US Avoid hepatotoxic drugs Maintain non-alcohol life Follow up with GI as scheduled Assessment & Plan (08/27/2023 6:55 AM EDT): Following with [facility], last seen in May 2023 FIB-4 [...] & Plan (06/16/2024 5:58 AM EDT): - Textile Colorist Dyer: Ashly, last seen on 06/07/24 - Severe [...] supplemental oxygen 4L-6L; recommended to discuss with tool repair technician regarding to oxygen concentrator. - Anticipate to start BiPAP 21/7 mmHg - Strongly encouraged to get COVID vaccine - Keep appt with tool repair technician and resume pulmonary rehab. -Treatment Hx: Budesonide - Formoterol (Symbicort) was changed to Wixela in Jan 2023. Plan to try fluticasone / umeclidinium / vilanterol (Trelegy) per tool repair technician. Assessment & Plan (05/03/2024 5:14 PM EST): - Textile Colorist Dyer: Ashly, last seen on 12/29/23 - Severe [...] supplemental oxygen 4L-6L; recommended to discuss with tool repair technician regarding to oxygen concentrator. - Strongly encouraged to get COVID vaccine - Keep appt with tool repair technician and resume pulmonary rehab. -Treatment Hx: Budesonide - Formoterol (Symbicort) was changed to Wixela in Jan 2023. Plan to try Trelegy. Assessment & Plan (04/02/2024 6:16 AM EST): - Textile Colorist Dyer: Ashly, last seen on 11/18/23 - Severe [...] supplemental oxygen 4L-6L; recommended to discuss with tool repair technician regarding to oxygen concentrator. - Strongly encouraged to get COVID vaccine - Keep appt with tool repair technician and resume pulmonary rehab. -Treatment Hx: Budesonide - Formoterol (Symbicort) was changed to Wixela in Jan 2023. Plan to try Trelegy. -Since she seldom sees her [facility] tool repair technician, and she is well-known to [facility] tool repair technician / critical medicine teams, we discussed about transferring care to [facility] pulmonology. Patient agreed with the plan initially, but decided to stay with [facility] tool repair technician. Assessment & Plan (02/06/2024 5:34 AM EST): - Textile Colorist Dyer: Ashly, last seen on 11/18/23 - Severe [...] supplemental oxygen 4L-6L; recommended to discuss with tool repair technician regarding to oxygen concentrator. - Strongly encouraged to get COVID vaccine - Keep appt with tool repair technician and resume pulmonary rehab. -Treatment Hx: Budesonide - Formoterol (Symbicort) was changed to Wixela in Jan 2023. Plan to try Trelegy. -Since she seldom sees her [facility] tool repair technician, and she is well-known to [facility] tool repair technician / critical medicine teams, we discussed about transferring care to [facility] pulmonology. Patient agreed with the plan initially, but decided to stay with [facility] tool repair technician. Assessment & Plan (11/29/2023 11:51 AM EDT): - Textile Colorist Dyer: Ashly, last seen on 11/18/23 - Severe [...] supplemental oxygen 4L-6L; recommended to discuss with tool repair technician regarding to oxygen concentrator. - Strongly encouraged to get COVID vaccine - Keep appt with tool repair technician -Treatment Hx: Budesonide - Formoterol (Symbicort) was changed to Wixela in Jan 2023. Plan to try Trelegy. Assessment & Plan (10/11/2023 11:41 AM EDT): - Textile Colorist Dyer: Ashly, last seen on 05/31/23 - Severe [...] supplemental oxygen 4L-6L; recommended to discuss with tool repair technician regarding to oxygen concentrator. - Strongly encouraged to get COVID vaccine - Keep appt with tool repair technician -Treatment Hx: Budesonide - Formoterol (Symbicort) was changed to Wixela in Jan 2023. Plan to try Trelegy. Assessment & Plan (10/04/2023 5:21 PM EDT): - Textile Colorist Dyer: [facility], last seen on 05/31/23 - Severe [...] supplemental oxygen 4L-6L; recommended to discuss with tool repair technician regarding to oxygen concentrator. - Strongly encouraged to get COVID vaccine - Keep appt with tool repair technician -Treatment Hx: Budesonide - Formoterol (Symbicort) was changed to Wixela in Jan 2023. Plan to try Trelegy. Assessment & Plan (08/23/2023 3:08 PM EDT): - Textile Colorist Dyer: [facility], last seen on 05/31/23 - Severe [...] supplemental oxygen 4L-6L; recommended to discuss with tool repair technician regarding to oxygen concentrator. - Strongly encouraged to get COVID vaccine - Keep appt with tool repair technician -Treatment Hx: Budesonide - Formoterol (Symbicort) was changed to Wixela in Jan 2023. Plan to try Trelegy. Assessment & Plan (05/08/2023 6:27 AM EST): - Textile Colorist Dyer: Ashly, last seen on 01/28/23 - Acute [...] get COVID vaccine - Keep appt with tool repair technician. Plan at last visit was to do a nocturnal polysomnogram with TCCO2 monitoring to evaluate for nocturnal non-invasive ventilator assessment and chest CT w/o contrast and TTE after polysomnogram Assessment & Plan (03/01/2023 6:50 AM EST): - Textile Colorist Dyer: Ashly, last seen on 01/28/23 - Severe [...] Dx COPD exacerbation, CAP, Tx azithromycin - [facility] hospitalization 01/11/19-01/17/19, b/l lower lobe pneumonia, L [...] get COVID vaccine - Keep appt with tool repair technician -Treatment Hx: Budesonide - Formoterol (Symbicort) was changed to Wixela in Jan 2023. Plan to try Trelegy. Gastroesophageal reflux disease 09/09/2022 Assessment & Plan (08/23/2023 3:11 PM EDT): [facility], last seen in May 2023 Continue pantoprazole and famotidine History of alcohol use disorder 09/09/2022 History of intravenous drug abuse 09/09/2022 Post-traumatic stress disorder 09/09/2022 COPD (chronic obstructive pulmonary disease) Assessment & Plan (06/16/2024 5:57 AM EDT): - Textile Colorist Dyer: Ashly, last seen on 06/07/24 - Severe [...] supplemental oxygen 4L-6L; recommended to discuss with tool repair technician regarding to oxygen concentrator. - Anticipate to start BiPAP 21/7 mmHg - Strongly encouraged to get COVID vaccine - Keep appt with tool repair technician and resume pulmonary rehab. -Treatment Hx: Budesonide - Formoterol (Symbicort) was changed to Wixela in Jan 2023. Plan to try fluticasone / umeclidinium / vilanterol (Trelegy) per tool repair technician. Assessment & Plan (05/03/2024 5:06 PM EST): - Textile Colorist Dyer: Ashly, last seen on 12/29/23 - Severe [...] supplemental oxygen 4L-6L; recommended to discuss with tool repair technician regarding to oxygen concentrator. - Strongly encouraged to get COVID vaccine - Keep appt with tool repair technician and resume pulmonary rehab. -Treatment Hx: Budesonide - Formoterol (Symbicort) was changed to Wixela in Jan 2023. Plan to try fluticasone / umeclidinium / vilanterol (Trelegy) per tool repair technician. Assessment & Plan (04/02/2024 6:16 AM EST): - Textile Colorist Dyer: Ashly, last seen on 11/18/23 - Severe [...] supplemental oxygen 4L-6L; recommended to discuss with tool repair technician regarding to oxygen concentrator. - Strongly encouraged to get COVID vaccine - Keep appt with tool repair technician and resume pulmonary rehab. -Treatment Hx: Budesonide - Formoterol (Symbicort) was changed to Wixela in Jan 2023. Plan to try Trelegy. -Since she seldom sees her [facility] tool repair technician, and she is well-known to [facility] tool repair technician / critical medicine teams, we discussed about transferring care to [facility] pulmonology. Patient agreed with the plan initially, but decided to stay with [facility] tool repair technician. Assessment & Plan (02/06/2024 5:33 AM EST): - Textile Colorist Dyer: Ashly, last seen on 11/18/23 - Severe [...] supplemental oxygen 4L-6L; recommended to discuss with tool repair technician regarding to oxygen concentrator. - Strongly encouraged to get COVID vaccine - Keep appt with tool repair technician and resume pulmonary rehab. -Treatment Hx: Budesonide - Formoterol (Symbicort) was changed to Wixela in Jan 2023. Plan to try Trelegy. -Since she seldom sees her [facility] tool repair technician, and she is well-known to [facility] tool repair technician / critical medicine teams, we discussed about transferring care to [facility] pulmonology. Patient agreed with the plan initially, but decided to stay with [facility] tool repair technician. Assessment & Plan (11/29/2023 11:51 AM EDT): - Textile Colorist Dyer: Ashly, last seen on 11/18/23 - Severe [...] supplemental oxygen 4L-6L; recommended to discuss with tool repair technician regarding to oxygen concentrator. - Strongly encouraged to get COVID vaccine - Keep appt with tool repair technician -Treatment Hx: Budesonide - Formoterol (Symbicort) was changed to Wixela in Jan 2023. Plan to try Trelegy. Assessment & Plan (10/11/2023 11:41 AM EDT): - Textile Colorist Dyer: Ashly, last seen on 05/31/23 - Severe [...] supplemental oxygen 4L-6L; recommended to discuss with tool repair technician regarding to oxygen concentrator. - Strongly encouraged to get COVID vaccine - Keep appt with tool repair technician -Treatment Hx: Budesonide - Formoterol (Symbicort) was changed to Wixela in Jan 2023. Plan to try Trelegy. Assessment & Plan (10/04/2023 5:20 PM EDT): - Textile Colorist Dyer: Ashly, last seen on 05/31/23 - Severe [...] supplemental oxygen 4L-6L; recommended to discuss with tool repair technician regarding to oxygen concentrator. - Strongly encouraged to get COVID vaccine - Keep appt with tool repair technician -Treatment Hx: Budesonide - Formoterol (Symbicort) was changed to Wixela in Jan 2023. Plan to try Trelegy. Assessment & Plan (08/23/2023 3:08 PM EDT): - Textile Colorist Dyer: Ashly, last seen on 05/31/23 - Severe [...] supplemental oxygen 4L-6L; recommended to discuss with tool repair technician regarding to oxygen concentrator. - Strongly encouraged to get COVID vaccine - Keep appt with tool repair technician -Treatment Hx: Budesonide - Formoterol (Symbicort) was changed to Wixela in Jan 2023. Plan to try Trelegy. Assessment & Plan (05/31/2023 4:31 PM EST): - Textile Colorist Dyer: Ashly, last seen on 01/28/23 - Severe [...] supplemental oxygen 4L-6L; recommended to discuss with tool repair technician regarding to oxygen concentrator. - Strongly encouraged to get COVID vaccine - Keep appt with tool repair technician -Treatment Hx: Budesonide - Formoterol (Symbicort) was changed to Wixela in Jan 2023. Plan to try Trelegy. Assessment & Plan (05/08/2023 6:17 AM EST): - Textile Colorist Dyer: Ashly, last seen on 01/28/23 - Severe [...] get COVID vaccine - Keep appt with tool repair technician -Treatment Hx: Budesonide - Formoterol (Symbicort) was changed to Wixela in Jan 2023. Plan to try Trelegy. Assessment & Plan (03/01/2023 6:49 AM EST): - Textile Colorist Dyer: Ashly, last seen on 01/28/23 - Severe [...] Dx COPD exacerbation, CAP, Tx azithromycin - [facility] hospitalization 01/11/19-01/17/19, b/l lower lobe pneumonia, L [...] get COVID vaccine - Keep appt with tool repair technician -Treatment Hx: Budesonide - Formoterol (Symbicort) was changed to Wixela in Jan 2023. Plan to try Trelegy. Assessment & Plan (12/24/2022 3:40 PM EDT): - Textile Colorist Dyer: Ashly, last seen on 04/15/22 - Severe exacerbation 1-2 per year, none in [id number] - Most recent exacerbation today 12/22/22, Rx prednisone taper and azithromycin - Last hospitalization for COPD exacerbation in Feb 2020, Rx ceftriaxone, steroid, discharged with prednisone burst. - Hospitalization in Mar 2019. Dx COPD exacerbation. Rx prednisone and doxycycline - Exacerbation in Jan 2019, hospitalized 02/05/19- 02/07/19, Dx COPD exacerbation, CAP, Tx azithromycin - [facility] hospitalization 01/11/19-01/17/19, b/l lower lobe pneumonia, L > R, treated with IV steroid, levofloxacin, and bronchodilators Tx. Discharged with prednisone, benzonatate, levofloxacin. - Continue Symbicort and Incruse as maintenance. Plan to switch to Trelegy per tool repair technician - Continue albuterol HFA prn. - Continue DuoNeb for neb prn Tx. - Continue workin on smoking cessation. - Continue supplemental oxygen 4L - Keep appt with tool repair technician - Strongly encouraged to get COVID vaccine Assessment & Plan (12/05/2022 5:51 AM EDT): - Textile Colorist Dyer: Ashly, last seen on 04/15/22 - Severe exacerbation 1-2 per year, none in [id number] - Most recent exacerbation in Feb 2020, required hospitalization at [facility], Rx ceftriaxone, steroid, discharged with prednisone burst. - Hospitalization in Mar 2019. Dx COPD exacerbation. Rx prednisone and doxycycline - Exacerbation in Jan 2019, hospitalized 02/05/19- 02/07/19, Dx COPD exacerbation, CAP, Tx azithromycin - [facility] hospitalization 01/11/19-01/17/19, b/l lower lobe pneumonia, L > R, treated with IV steroid, levofloxacin, and bronchodilators Tx. Discharged with prednisone, benzonatate, levofloxacin. - Continue Symbicort and Incruse as maintenance. Plan to switch to Trelegy per tool repair technician - Continue albuterol HFA prn. - Continue DuoNeb for neb prn Tx. - Continue workin on smoking cessation. - Continue supplemental oxygen 4L - Keep appt with tool repair technician - Strongly encouraged to get COVID vaccine Assessment & Plan (05/08/2022 5:47 PM EST): - Textile Colorist Dyer: Ashly, last seen on 04/15/22 - Severe exacerbation 1-2 per year, none in [id number] - Most recent exacerbation in Feb 2020, required hospitalization at [facility], Rx ceftriaxone, steroid, discharged with prednisone burst. - Hospitalization in Mar 2019. Dx COPD exacerbation. Rx prednisone and doxycycline - Exacerbation in Jan 2019, hospitalized 02/05/19- 02/07/19, Dx COPD exacerbation, CAP, Tx azithromycin - [facility] hospitalization 01/11/19-01/17/19, b/l lower lobe pneumonia, L > R, treated with IV steroid, levofloxacin, and bronchodilators Tx. Discharged with prednisone, benzonatate, levofloxacin. - Continue Symbicort and Incruse as maintenance. Plan to switch to Trelegy per tool repair technician - Continue albuterol HFA prn. - Continue DuoNeb for neb prn Tx. - Continue workin on smoking cessation. - Continue supplemental oxygen 4L - Keep appt with tool repair technician - Strongly encouraged to get COVID vaccine Assessment & Plan (04/12/2022 7:28 PM EST): - Textile Colorist Dyer: Ashly - Severe exacerbation 1-2 per year, none in [id number] - Most recent exacerbation in Feb 2020, required hospitalization at [facility], Rx ceftriaxone, steroid, discharged with prednisone burst. - Hospitalization in Mar 2019. Dx COPD exacerbation. Rx prednisone and doxycycline - Exacerbation in Jan 2019, hospitalized 02/05/19- 02/07/19, Dx COPD exacerbation, CAP, Tx azithromycin - [facility] hospitalization 01/11/19-01/17/19, b/l lower lobe pneumonia, L > R, treated with IV steroid, levofloxacin, and bronchodilators Tx. Discharged with prednisone, benzonatate, levofloxacin. - Continue Breo and Spiriva as maintenance. Plan to switch to Trelegy per tool repair technician - Continue albuterol HFA prn. - Continue DuoNeb for neb prn Tx. - Continue workin on smoking cessation. - Continue supplemental oxygen 4L - Keep appt with tool repair technician in October. - Strongly encouraged to get COVID vaccine Diabetes mellitus, type 2 04/12/2022 Assessment & Plan (06/16/2024 6:04 AM EDT): - A1C 7.0% today, 7.0% on 03/26/24 - in a setting of frequent steroid use for COPD exacerbation - continue working on lifestyle modifications - continue SMBG - continue metformin ER 500 mg twice daily - last eye exam: referred to [facility] eye care - last comprehensive foot exam: [...] daily - last eye exam: referred to [facility] eye care - last comprehensive foot exam: [...] daily - last eye exam: referred to [facility] eye care - last comprehensive foot exam: [...] daily - last eye exam: referred to [facility] eye care - last comprehensive foot exam: [...] daily - last eye exam: referred to [facility] eye care - last comprehensive foot exam: [...] daily - last eye exam: referred to [facility] eye care - last comprehensive foot exam: [...] daily - last eye exam: referred to [facility] eye care - last comprehensive foot exam: [...] daily - last eye exam: referred to [facility] eye care - last comprehensive foot exam: - last lipid profile: 12/24/22 - last microalbumin test: Ordered Assessment & Plan (11/28/2023 5:43 AM EDT): >>ASSESSMENT AND PLAN FOR DIABETES MELLITUS, TYPE 2 ([facility]) WRITTEN ON 05/31/2023 4:21 PM BY CATHLEEN MO MD - A1C 6.7% on 05/19/23, likely due to frequent steroid use recently - continue working on lifestyle modifications - start SMBG - start metformin ER 500 mg once daily - refer to [facility] eye care - foot exam at next [...] 6:44 AM EST): -Supplier: [employer] -Pt had [id number]-[id number] visit with Dr. Hart, tool repair technician, on 01/28/23. He recommended supplemental oxygen 4LNC at rest and 6LNC with activity based on last evaluation -Continue as recommended. Assessment & Plan (01/05/2023 5:14 PM EDT): -Continuous supplemental oxygen 4L/m -Supplier: [employer] -Contacted [facility] for oxygen delivery RAN -Pt also needs a rollator as she needs frequent rest when walking. Assessment & Plan (12/05/2022 5:52 AM EDT): -Continuous supplemental oxygen 4L/m -Supplier: [employer] -Contacted [facility] for oxygen delivery [facility] Assessment & Plan (05/08/2022 5:44 PM EST): -Continuous supplemental oxygen 4L/m Erythrocytosis 01/07/2015 Assessment & Plan (05/08/2023 6:35 AM EST): - 09/24/21 Hemoglobin 19.0; Hematocrit 59.1 - likely due to hypoxia / COPD - previously referred to pantograph transferrer, but pt missed appt Assessment & Plan (12/05/2022 5:49 AM EDT): - 09/24/21 Hemoglobin 19.0; Hematocrit 59.1 - likely due to hypoxia / COPD - previously referred to pantograph transferrer, but pt missed appt Assessment & Plan (05/08/2022 5:50 PM EST): - 09/24/21 Hemoglobin 19.0; Hematocrit 59.1 - likely due to hypoxia / COPD - previously referred to pantograph transferrer, but pt missed appt Assessment & Plan (04/12/2022 7:51 PM EST): - 09/24/21 Hemoglobin 19.0; Hematocrit 59.1 - likely due to hypoxia / COPD - previously referred to pantograph transferrer, but pt missed appt 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 Hepatitis C antibody test positive 01/07/2015 Chronic liver disease 09/03/2014 Assessment & Plan (06/16/2024 6:02 AM EDT): -Likely due to Hx alcohol use disorder -Followed by [facility], last visit on 12/21/23 -Hepatitis profile: [...] to Hx alcohol use disorder -Followed by [facility], last visit on 12/21/23 -Hepatitis profile: [...] to Hx alcohol use disorder -Followed by [facility], last visit on 12/21/23 -Hepatitis profile: [...] to Hx alcohol use disorder -Followed by [facility], last visit on 12/21/23 -Hepatitis profile: [...] to Hx alcohol use disorder -Followed by [facility], last visit on 06/22/23 -Hepatitis profile: [...] to Hx alcohol use disorder -Followed by [facility], last visit on 06/22/23 -Hepatitis profile: [...] to Hx alcohol use disorder -Followed by [facility], last visit on 06/22/23 -Hepatitis profile: [...] to Hx alcohol use disorder -Followed by [facility], last visit on 06/22/23 -Hepatitis profile: [...] to Hx alcohol use disorder -Followed by [facility], last visit on 09/24/21 -Hepatitis profile: [...] to Hx alcohol use disorder -Followed by [facility], last visit on 09/24/21 -Hepatitis profile: [...] to Hx alcohol use disorder -Followed by [facility], last visit on 09/24/21 -Hepatitis profile: [...] to continue staying abstinent -consider changing to [facility] since pt has a difficulty [...] to Hx alcohol use disorder -Followed by [facility], last visit on 09/24/21 -Hepatitis profile: [...] to continue staying abstinent -consider changing to [facility] since pt has a difficulty getting appt with current GI Assessment & Plan (05/08/2022 5:48 PM EST): -Likely due to Hx alcohol use disorder -Followed by [facility], last visit on 09/24/21 -Hepatitis profile: [...] to Hx alcohol use disorder -Followed by [facility], last visit on 09/24/21 -Hepatitis profile: [...] mg, but if not approved will prescribe [id number] mg daily -Follow up in 3-6 mo, sooner if any problem arises Assessment & Plan (03/01/2023 6:52 AM EST): -Goal BP < 140/90 per JNC-8 and < 130/80 per ACC/AHA guideline (Treatment threshold >= 140/90 ) -Continue working on lifestyle modifications -Continue Amlodipine 10 mg daily -Recently seen by tool repair technician, Dr. Hart, and was recommended to switch [...] Previous Dx: Depression; PTSD; alcohol-induced mood disorder [facility] provider: Mumtaz, psychiatrist Dr. Cruz Current medications: sertraline 125 mg daily, perphenazine 4 mg daily Previously tried medications: risperidone; hydroxyzine; prazosin pt is depression has worsened with current living condition pt was able to contract her safety today Assessment & Plan (04/02/2024 6:22 AM EST): Previous Dx: Depression; PTSD; alcohol-induced mood disorder [facility] provider: [facility] Current medications: sertraline, prazosin 2mg, hydroxyzine, and risperidone. pt is depression has worsened with current living condition pt was able to contract her safety today Assessment & Plan (10/04/2023 9:59 AM EDT): Previous Dx: Depression; PTSD; alcohol-induced mood disorder [facility] provider: Mumtaz Current medications: sertraline, prazosin 2mg, hydroxyzine, and risperidone. pt is depression has worsened with current living condition pt was able to contract her safety today Assessment & Plan (08/18/2023 5:43 AM EDT): Previous Dx: Depression; PTSD; alcohol-induced mood disorder [facility] provider: Mumtaz Current medications: sertraline, prazosin 2mg, hydroxyzine, and risperidone. pt is depression has worsened with current living condition pt was able to contract her safety today Assessment & Plan (05/08/2022 5:53 PM EST): Previous Dx: Depression; PTSD; alcohol-induced mood disorder [facility] provider: [facility] Current medications: sertraline, prazosin 2mg, hydroxyzine, and risperidone. pt is depression has worsened with current living condition pt was able to contract her safety today Assessment & Plan (04/12/2022 7:43 PM EST): Previous Dx: Depression; PTSD; alcohol-induced mood disorder [facility] provider: HUI Current medications: sertraline, prazosin [...] varenicline in Nov 2023 - referred to [facility] Assessment & Plan (04/26/2024 10:32 AM EST): - restarted smoking in August 2023 - previously tried varenicline and nicotine replacement - not candidate for lung cancer screening CT due to severe COPD - continue working on smoking cessation - prescribed varenicline in Nov 2023 - referred to [facility] Assessment & Plan (04/02/2024 6:20 AM EST): - restarted smoking in August 2023 - previously tried varenicline and nicotine replacement - not candidate for lung cancer screening CT due to severe COPD - continue working on smoking cessation - prescribed varenicline in Nov 2023 - referred to [facility] Assessment & Plan (02/06/2024 5:38 AM EST): - restarted smoking in August 2023 - previously tried varenicline and nicotine replacement - not candidate for lung cancer screening CT due to severe COPD - continue working on smoking cessation - prescribed varenicline in Nov 2023 - referred to [facility] Assessment & Plan (11/29/2023 11:53 AM [...] & Plan (06/16/2024 6:02 AM EDT): - Mac Developer: [place], last visit on 06/15/20 - Current replacement: levothyroxine 225 mcg daily - Most recent thyroid function test: 11/08/23 therapeutic range - Recheck today Assessment & Plan (04/26/2024 10:32 AM EST): - Mac Developer: [facility], last visit on 06/15/20 - Current replacement: levothyroxine 225 mcg daily - Most recent thyroid function test: 11/08/23 therapeutic range Assessment & Plan (03/26/2024 5:03 PM EST): - Mac Developer: [facility], last visit on 06/15/20 - Current replacement: levothyroxine 225 mcg daily - Most recent thyroid function test: 08/03/23 therapeutic range - Requested to repeat lab today. - Encouraged to improve adherence. Assessment & Plan (02/02/2024 2:28 PM EST): - Mac Developer: [facility], last visit on 06/15/20 - Current replacement: levothyroxine 225 mcg daily - Most recent thyroid function test: 08/03/23 therapeutic range - Requested to repeat lab today. - Encouraged to improve adherence. Assessment & Plan (11/29/2023 11:32 AM EDT): - Mac Developer: [facility], last visit on 06/15/20 - Current replacement: levothyroxine 225 mcg daily - Most recent thyroid function test: 08/03/23 therapeutic range - Requested to repeat lab today. - Encouraged to improve adherence. Assessment & Plan (10/11/2023 11:43 AM EDT): - Mac Developer: [facility], last visit on 06/15/20 - Current replacement: levothyroxine 225 mcg daily - Most recent thyroid function test: 08/03/23 therapeutic range - Requested to repeat lab today. - Encouraged to improve adherence. Assessment & Plan (10/02/2023 4:45 PM EDT): - Mac Developer: [facility], last visit on 06/15/20 - Current replacement: levothyroxine 225 mcg daily - Most recent thyroid function test: 08/03/23 therapeutic range - Requested to repeat lab today. - Encouraged to improve adherence. Assessment & Plan (12/05/2022 5:49 AM EDT): - Mac Developer: [facility], last visit on 06/15/20 - Current replacement: levothyroxine 200 mcg daily - Most recent thyroid function test: 09/24/21 TSH 23.42 - 08/13/20 TSH 26.67, Free T4 0.9 - 10/22/19 TSH 48.28; Free T4 0.44 - Requested to repeat lab today. - Encouraged to improve adherence. - Advised to keep appt with Mac Developer Assessment & Plan (04/12/2022 7:31 PM EST): - Mac Developer: [facility], last visit on 06/15/20 - Current replacement: levothyroxine 200 mcg daily - Most recent thyroid function test: 09/24/21 TSH 23.42 - 08/13/20 TSH 26.67, Free T4 0.9 - 10/22/19 TSH 48.28; Free T4 0.44 - Requested to repeat lab today. - Encouraged to improve adherence. 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5 mcg because patient had TSH 5.92 and free T4 0.6) - Most recent thyroid function test: Most recent TSH in Mar 2023 was 5.92 (patient was having acute illness) - Recheck thyroid function Assessment & Plan (12/24/2022 3:43 PM EDT): - Mac Developer: [facility], last visit on 06/15/20 - Current replacement: levothyroxine 200 mcg daily - Most recent thyroid function test: 12/14/22 TSH 32.45, Free T4 0.57 - Encouraged to improve adherence. Assessment & Plan (12/05/2022 5:53 AM EDT): - Mac Developer: [facility], last visit on 06/15/20 - Current replacement: levothyroxine 200 mcg daily - Most recent thyroid function test: 09/24/21 TSH 23.42 - 08/13/20 TSH 26.67, Free T4 0.9 - 10/22/19 TSH 48.28; Free T4 0.44 - Requested to repeat lab today. - Encouraged to improve adherence. - Advised to keep appt with Mac Developer Assessment & Plan (05/08/2022 5:49 PM EST): - Mac Developer: [facility], last visit on 06/15/20 - Current replacement: levothyroxine 200 mcg daily - Most recent thyroid function test: 09/24/21 TSH 23.42 - 08/13/20 TSH 26.67, Free T4 0.9 - 10/22/19 TSH 48.28; Free T4 0.44 - Requested to repeat lab today. - Encouraged to improve adherence. - Advised to keep appt with Mac Developer Assessment & Plan (04/12/2022 7:32 PM EST): - Mac Developer: [facility], last visit on 06/15/20 - Current replacement: levothyroxine 200 mcg daily - Most recent thyroid function test: 09/24/21 TSH 23.42 - 08/13/20 TSH 26.67, Free T4 0.9 - 10/22/19 TSH 48.28; Free T4 0.44 - Requested to repeat lab today. - Encouraged to improve adherence. - Advised to keep appt with Mac Developer Cirrhosis, alcoholic 01/07/2015 024 Assessment & Plan (05/31/2023 4:21 PM EST): -Followed by [facility], last visit on 09/24/21 -Hepatitis profile: [...] Plan (04/12/2022 7:38 PM EST): -Followed by [facility], last visit on 09/24/21 -Hepatitis profile: [...] & Plan (12/24/2022 3:41 PM EDT): - Textile Colorist Dyer: Ashly, last seen on 04/15/22 - Severe exacerbation 1-2 per year, none in [id number] - Most recent exacerbation today, 12/22/22. - Last hospitalization Feb 2020. [facility]. Rx ceftriaxone, steroid, discharged with prednisone burst. - Hospitalization in Mar 2019. Dx COPD exacerbation. Rx prednisone and doxycycline - Exacerbation in Jan 2019, hospitalized 02/05/19- 02/07/19, Dx COPD exacerbation, CAP, Tx azithromycin - [facility] hospitalization 01/11/19-01/17/19, b/l lower lobe pneumonia, L > R, treated with IV steroid, levofloxacin, and bronchodilators Tx. Discharged with prednisone, benzonatate, levofloxacin. - Continue Symbicort and Incruse as maintenance. Plan to switch to Trelegy per tool repair technician - Continue albuterol HFA prn. - Continue DuoNeb for neb prn Tx. - Continue workin on smoking cessation. - Continue supplemental oxygen 4L - Keep appt with tool repair technician - Strongly encouraged to get COVID vaccine Assessment & Plan (12/05/2022 5:51 AM EDT): - Textile Colorist Dyer: Ashly, last seen on 04/15/22 - Severe exacerbation 1-2 per year, none in [id number] - Most recent exacerbation in Feb 2020, required hospitalization at [facility], Rx ceftriaxone, steroid, discharged with prednisone burst. - Hospitalization in Mar 2019. Dx COPD exacerbation. Rx prednisone and doxycycline - Exacerbation in Jan 2019, hospitalized 02/05/19- 02/07/19, Dx COPD exacerbation, CAP, Tx azithromycin - [facility] hospitalization 01/11/19-01/17/19, b/l lower lobe pneumonia, L > R, treated with IV steroid, levofloxacin, and bronchodilators Tx. Discharged with prednisone, benzonatate, levofloxacin. - Continue Symbicort and Incruse as maintenance. Plan to switch to Trelegy per tool repair technician - Continue albuterol HFA prn. - Continue DuoNeb for neb prn Tx. - Continue workin on smoking cessation. - Continue supplemental oxygen 4L - Keep appt with tool repair technician - Strongly encouraged to get COVID vaccine Assessment & Plan (05/08/2022 5:47 PM EST): - Textile Colorist Dyer: Ashly, last seen on 04/15/22 - Severe exacerbation 1-2 per year, none in [phone] - Most recent exacerbation in Feb 2020, required hospitalization at [facility], Rx ceftriaxone, steroid, discharged with prednisone burst. - Hospitalization in Mar 2019. Dx COPD exacerbation. Rx prednisone and doxycycline - Exacerbation in Jan 2019, hospitalized 02/05/19- 02/07/19, Dx COPD exacerbation, CAP, Tx azithromycin - [facility] hospitalization 01/11/19-01/17/19, b/l lower lobe pneumonia, L > R, treated with IV steroid, levofloxacin, and bronchodilators Tx. Discharged with prednisone, benzonatate, levofloxacin. - Continue Symbicort and Incruse as maintenance. Plan to switch to Trelegy per tool repair technician - Continue albuterol HFA prn. - Continue DuoNeb for neb prn Tx. - Continue workin on smoking cessation. - Continue supplemental oxygen 4L - Keep appt with tool repair technician - Strongly encouraged to get COVID vaccine Encounters Date Type Department Care Team Description 07/26/2024 3:00 PM EDT Office Visit [facility] [address] [place] [id number] COPD with acute exacerbation (CMS/[facility]) (Primary Dx) 07/26/2024 Telephone [facility] [address] [place] [phone] Laura Shirley DO 07/26/2024 Telephone [facility] [address] [address] Laura Shirley DO Nurse Triage 07/26/2024 Travel 07/23/2024 Orders Only [facility] [address] [place] [phone] Cathleen Mo MD Metabolic dysfunction-associated steatotic liver disease (MASLD) (Primary Dx); Type 2 diabetes mellitus without complication, without long-term current use of insulin (CMS/HCC) 07/19/[address] [address] Cathleen Mo MD Care Management (C3CM- f/u call) 07/11/2024 Patient Outreach [address] [address] Cathleen Mo MD Care Coordination (Appt reminder) 07/10/2024 Telephone [facility] [address] [address] Bert Banegas MD oygen return 07/09/[address] [address] Cathleen Mo MD Care Management (C3CM- f/u call) 07/09/2024 Patient Outreach [address] [address] Cathleen Mo MD Care Coordination (PT1) 07/04/2024 3:20 PM EDT Office Visit [facility] [address] [address] Bert Banegas MD COPD exacerbation (CMS/HCC) (Primary Dx); Chronic respiratory failure with hypoxia and hypercapnia (CMS/HCC) 07/04/2024 Refill [facility] [address] [place] [address] Cathleen Mo MD 07/03/2024 Patient Outreach [address] [address] Cathleen Mo MD Care Coordination (Appt reminder) 07/02/[address] [address] Elba Jiang, RN 07/02/2024 Patient Outreach [address] [address] Cathleen Mo MD Care Coordination (triage) 07/02/2024 Refill [facility] [address] [place] [address] Cathleen Mo MD Other specified hypothyroidism 07/01/2024 Refill [facility] [address] [place] [address] Cathleen Mo MD 06/29/2024 Patient Outreach [address] [address] Cathleen Mo MD Care Coordination (Appt reminder) 06/29/[address] [address] Cathleen Mo MD Care Management (C3CM- f/u call lvm) 06/20/2024 Orders Only [address] [place] [address] Cathleen Mo MD Parotid mass (Primary Dx); Sensorineural hearing loss (SNHL) of both ears 06/20/2024 Telephone [facility] [place] [address] Cathleen Mo MD 06/18/[address] [address] Cathleen Mo MD Care Management (C3CM- f/u call) 06/18/2024 Patient Outreach [address] [address] Cathleen Mo MD Care Coordination (PT1) 06/12/2024 1:15 PM EDT Office Visit [address] [address] Cathleen Mo MD Chronic obstructive pulmonary disease, [...] sciatica present; Skin lesions 06/12/2024 Orders Only [facility] [place] [address] Cathleen Mo MD 06/12/2024 Travel 06/11/2024 Patient Outreach [address] [address] Cathleen Mo MD Care Coordination (Appt reminder) 06/07/[address] [address] Cathleen Mo MD chart prep 06/06/[address] [address] Cathleen Mo MD Care Management (C3CM- f/u call #2 lvm) 06/01/2024 Telephone [facility] [address] [place] [address] Cathleen Mo MD Care Management (C3CM- f/u call lvm) 05/28/2024 Patient Outreach [facility] [address] [place] [address] Cathleen Mo MD Care Coordination (PT1) 05/28/2024 Refill [facility] [address] [place] [address] Cathleen Mo MD 05/28/[address] [address] Cathleen Mo MD Aneesh and Minh Sh[employer] [place] (Glove, exam vnyl lg) 05/24/2024 Refill [facility] [address] [place] [address] Cathleen Mo MD 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 05/21/2024 Patient Outreach [address] [address] Cathleen Mo MD Care Coordination (PT1) 05/21/[address] [address] Cathleen Mo MD Care Management (C3- initial assessment/ enrollment) 05/18/2024 Patient Outreach [facility] [address] [place] [address] Cathleen Mo MD Care Coordination (PT1) 05/18/2024 Patient Outreach [facility] [address] [place] [address] Cathleen Mo MD Care Coordination (CM/CHW appt reminder) 05/17/[address] [address] Marie Monroe [place] 05/07/2024 Refill [facility] [address] [place] [address] Cathleen Mo MD 05/02/2024 Patient Outreach [facility] [address] [place] [address] Cathleen Mo MD Care Coordination (CM/CHW outreach) from Last 3 Months Immunizations Name Administration [...] 07/26/2024 2:33 PM ED T Respiratory Rate 24 07/04/2024 3:15 PM EDT Oxygen Saturation 93% 07/26/2024 2:33 PM EDT Inhaled Oxygen Concentration - - Weight 77.4 kg (170 lb 9.6 oz) 06/12/2024 1:22 P M EDT Height 165.1 cm (5' 5 ) 02/02/2024 10:45 AM EST Body Mass Index 28.39 02/02/2024 10:45 AM EST Plan of Treatment Upcoming Encounters Date Type Department Care Team (Late st Contact Info) Description 08/16/2024 1:45 PM EDT Office Visit [facility] [address] [place], [place] [phone] Silvia Cameron, OD [address] [place] [address] 09/04/2024 1:00 PM EDT Office Visit [facility] [address] [place] [address] Cathleen Mo MD [address] [place] [address] Health Maintenance Due Date Last Done Comments [...] Protein Screening 11/07/2024 11/08/2023 Diabetes: Hemoglobin A1C 12/13/202406/12/2 025, 03/26/2024, 12/21/2023, Additional history exists Alcohol/Substance Use Screening 02/01/2025 02/02/2024 Pap Smear 04/29/2025 04/29/2022, 02/07/2019 Lipid Panel 06/12/2025 06/12/2024, 08/05/2023, 12/14/2022, Additional history exists Tobacco Screening 07/04/2025 07/04/2024 Mammogram 07/12/2025 07/13/2023, 07/07/2022 Colorectal Cancer Screening 03/26/2027 FIT DNA/Cologuard 03/26/2027 03/26/2024 Cervical Cancer Screening 04/29/2027 HPV/Cotest 04/29/2027 04/29/2022, 01/26, 01/23/2019 DTaP/Tdap/Td Vaccines (3 - Td or Tdap) 04/29/2032 04/29/2022, 04/21/2012, 04/09/2009 RSV Patients and Patients Aged 60 years or older (1 - 1-dose 75+ series) 2041 Hepatitis A Vaccines Discontinued 10/13/2009, 04/08/19 Hepatitis B Vaccines Completed 07/14/2010, 10/13/2009, 04/08/2009 [...] PM EDT COPD with acute exacerbation (CMS/HCC) AMB REFERRAL TO AUDIOLOGY Routine 07/12/2024 Sensorineural hearing loss (SNHL) of both ears CBC WITH AUTO DIFFERENTIAL Routine 06/12/2024 2:40 [...] Recently Relevant to Health Maintenance Results * XR Chest 2 Views (07/26/2024 3:17 PM EDT) Anatomical Region Laterality Modality Chest Radiographic Evon ging 07/26/2024 3:17 PM EDT Narrative 07/26/2024 3:42 PM EDT ?[facility] ?[address] ?[place] [address] ?XRay Report ? Signed ? Patient: Sandra Rose ?MR# ?? : [id number] ? : 1965 ?Acct:[id number] ? Age/Sex: 58 / F ?ADM Date: 07/26/24 ? Loc: HO.HHCX ? Attending Dr: Laura Shirley DO ? Ordering Physician: Laura Shirley DO ?? Date of Service: 07/26/24 ?? Procedure(s): XR chest 2V ?? Accession Number(s): [id number] ? cc: Laura Shirley DO ? EXAMINATION: [...] signed by Jackson Mott MD in OV> ?07/26/24 1539 ? DD/ ? TD/TT: 07/26/24 1530 ? [employer]: ? Procedure Note Donotuseinterpreter, Image - 07/26/[address] [address] XRay Report Signed Patient: Sandra Rose DMR# : [id number] : 1965Acct:[id number] Age/Sex: 58 / FADM Date: 07/26/24 Loc: .HHCX Attending Dr: Laura Shirley DO Ordering Physician: Laura Shirley DO Date of Service: 07/26/24 Procedure(s): XR chest 2V Accession Number(s): [id number] cc: Laura Shirley DO EXAMINATION: XR CHEST [...] 07/26/24 1539 DD/ 1517 TD/TT: 07/26/24 1530 [employer]: Laura Shirley DO IMG XR PROCEDURES Final Resu lt * Referral to Audiology (07/12/2024) us Cathleen Mo MD OUTPATIENT REFERRAL ORDERABLES F inal Result * (ABNORMAL) CBC auto differential (06/12/2024 2:40 PM EDT) White Blood Count 6.2 4.8 - 10.8 X10*3/uL [facility] Red Blood Count 5.40 4.20 - 5.50 X10*6/uL [facility] Hemoglobin 15.0 12.0 - 16.0 g/dl [facility] Hematocrit 48.2(H) 37.0 - 47.0 % [facility] Mean Corpuscular Volume 89.3 80.0 - 98.0 fL [facility] Mean Corpuscular Hemoglobin 27.8 27.0 - 33.0 pg [facility] Mean Corpuscular HGB Conc 31.1 31.0 - 35.0 g/dl [facility] Red Cell Distribution Width 14.4 11.0 - 16.0 % [facility] Platelet Count 161 160 - 400 X10*3/uL [facility] Mean Platelet Volume 11.6 9.4 - 12.3 fL [facility] Neutrophils Percent Auto 82.4(H) 45 - 73 % [facility] Imm Gran Pct Auto 0.2 0.0 - 0.4 % [facility] Lymphocytes Percent Auto 15.6(L) 20 - 40 % [facility] Monocytes Percent Auto 1.1(L) 2 - 11 % [facility] Eosinophils Percent Auto 0.2 0 - 4 % [facility] Basophils Percent Auto 0.5 0 - 2 % [facility] NRBC Pct Auto 0.0 0.0 - 0.2 /100WBC [facility] Neutrophils Absolute Auto 5.1 2.0 - 8.3 x10*3/uL [facility] Imm Gran Abs Auto 0.01 0.00 - 0.03 X10*3/uL [facility] Lymphocytes Absolute Auto 1.0(L) 1.2 - 4.9 X10*3/uL [facility] Monocytes Absolute Auto 0.1 0.1 - 1.2 X10*3/uL [facility] LABS Eosinophils Absolute Auto 0.0 0.0 - 0.4 X10*3/uL [facility] Basophils Absolute Auto 0.0 0.0 - 0.2 X10*3/uL [facility] NRBC Abs Auto 0.000 0.0 - 0.012 X10*3/uL [facility] Blood Venous blood specimen / Unknown 06/12/2024 2:40 PM EDT 06/12/2024 4:48 PM EDT Cathleen Mo MD LAB BLOOD ORDERABLES Final Resul t Performing Organization Address City/[facility]/ZIP Co de Phone Number [facility] [address] [place] [address] [phone] * (ABNORMAL) TSH with Reflex to Free T4 (06/12/2024 2:10 PM EDT) TSH reflex Free T4 0.22(L) 0.32 - 4.0 uIU/mL [facility] Blood 06/12/2024 2:10 PM EDT 06/12/2024 4:45 PM EDT Cathleen Mo MD LAB BLOOD ORDERABLES Final Resul t Performing Organization Address [facility]/ZIP Co de Phone Number [facility] [address] [place] [address] [phone] * (ABNORMAL) Lipid Panel with Reflex to Direct LDL (06/12/2024 2:10 PM EDT) Triglycerides 269(H) <150 mg/dL [facility] Comment:Desirable Triglyceri de: less than 150 mg/dLBorderline High Triglyceride 150-199 mg/dLHigh Triglyceride: 200-499 mg/dLVery High Triglyceride: greater than or equal to 5OO mg/dL Cholesterol 282(H) <200 mg/dL [facility] Comment:Desirable Cholestero l: less than 200 mg/dLBorderline High Cholesterol: 200-239 mg/dLHigh Cholesterol: greater than 239 mg/dL LDL Cholesterol Calculated 182(H) <100 mg/dL [facility] Comment:Desirable LDL: less than 100 mg/dLNear Optimal/Above Optimal LDL: 110- 129 mg/dLBorderline High LDL: 130-159 mg/dLHigh LDL: 160-189 mg/dLVery High LDL: greater than or equal to 190 mg/dL HDL Cholesterol 47 >40 mg/dL [facility] Comment:Desirable HDL: great er than 40 mg/dL Note: This HDL assay may give artificially low results in patients with liver disease. Blood 06/12/2024 2:1 0 PM EDT 06/12/2024 4:45 PM EDT Cathleen Mo MD LAB BLOOD ORDERABLES Final Resul t Performing Organization Address [facility] Co de Phone Number [facility] [address] [place] [address] [phone] * Sed Rate by Modified Westergren (06/12/2024 2:10 PM EDT) Erythrocyte Sedimentation Rate 12 0 - 20 MM/HR [facility] Comment:Patients with polycy themia and many hemoglobin abnormalitiesmay have depressed sed rates whereas patients with anemiamay have elevated sed rates. Blood Venous blood specimen / Unknown 06/12/2024 2:10 PM EDT 06/12/2024 4:45 PM EDT Cathleen Mo MD LAB BLOOD ORDERABLES Final Resul t Performing Organization Address City/[facility] Co de Phone Number [facility] [address] [place] [address] [phone] * C-reactive Protein (06/12/2024 2:10 PM EDT) C Reactive Protein 0.13 < or = 0.50 mg/dL [facility] Blood Venous blood specimen / Unknown 06/12/2024 2:10 PM EDT 06/12/2024 4:45 PM EDT us Cathleen Mo MD LAB BLOOD ORDERABLES Final Resul t Performing Organization Address [facility] Co de Phone Number [facility] [address] [place] [address] [phone] * Uric acid (06/12/2024 2:10 PM EDT) Uric Acid 4.4 2.4 - 5.7 mg/dL [facility] Blood Venous blood specimen / Unknown 06/12/2024 2:10 PM EDT 06/12/2024 4:45 PM EDT us Cathleen Mo MD LAB BLOOD ORDERABLES Final Resul t Performing Organization Address [facility] Co de Phone Number [facility] [address] [place] [address] [phone] * T4, Free (06/12/2024 2:10 PM EDT) Free T4 (Free Thyroxine) 1.13 0.71 - 1.85 ng/dL [facility] 06/12/2024 2:10 PM EDT 06/12/2024 4:45 PM EDT Cathleen Mo MD LAB BLOOD ORDERABLES Final Resul t Performing Organization Address [facility] Co de Phone Number [facility] [address] [place] [address] [phone] * (ABNORMAL) Comprehensive Metabolic Panel (06/12/2024 2:10 PM EDT) Sodium 142 135 - 145 mmol/L [facility] Potassium 4.2 3.3 - 5.1 mmol/L [facility] Chloride 98 96 - 108 mmol/L [facility] Carbon Dioxide 33(H) 22 - 29 mmol/L [facility] Anion Gap 15 12 - 20 [facility] Urea Nitrogen (BUN) 15 9 - 16 mg/dL [facility] Creatinine, Serum 0.67 0.5 - 1.4 mg/dL [facility] Estimated Glomerular Filt Rate >60 [facility] Comment:Chronic Kidney Disea se: Estimated GFR < 60 mL/min/1.89o8Yuyfpw Kidney Disease: Estimated GFR < 15 mL/min/1.73m2 Glucose 181(H) 60 - 115 mg/dL [facility] Calcium 9.7 8.4 - 10.2 mg/dL [facility] Bilirubin, Total 0.5 0.0 - 1.0 mg/dL [facility] Aspartate Amino Transferase 30 5 - 31 U/L [facility] Alanine Aminotransferase 31 0 - 31 U/L [facility] Total Protein 8.3(H) 6.5 - 8.0 g/dL [facility] Albumin Level 4.3 3.5 - 5.0 g/dL [facility] Alkaline Phosphatase 95 39 - 117 U/L [facility] Blood Venous blood specimen / Unknown 06/12/2024 2:10 PM EDT 06/12/2024 4:45 PM EDT Cathleen Mo MD LAB BLOOD ORDERABLES Final Resul t [facility] [address] [place] [address] [phone] * (ABNORMAL) POCT glycosylated hemoglobin (Hgb [...] Media Lot # [id number] Lot# Expiration Date [id number] Blood Capillary blood specimen / Unknown 06/12/2024 9:38 AM EDT Cathleen Mo MD POINT OF CARE TEST ENTER/EDIT OR DERABLES Final Result * Referral to Pulmonology (06/07/2024) us Steph PLAOMINO OUTPATIENT REFERRAL ORDERABLES F inal Result * Cologuard?? colon cancer screening (03/26/2024 11:10 AM EST) Cologuard Result Negative Negative 03/30/19 5:10 PM EST [facility] (CLIA #:[id number]) Comment: NEGATIVE TEST RESULT. A negative Cologuard [...] cancer. ??Following a negative Cologuard result, the [place] [employer] and U.S. Multi-Society Task Force screening guidelines recommend a Cologuard re-screening interval of 3 years. References: [place] [employer] Guideline for Colorectal Cancer Screening: https://www.cancer.org/cancer/ssoqf-rmvuyi-yvrark/blhtijepk-ngiwxvvbl-jasuxoc/ac s-rec ommendations.html.; Holland DK, Ivis CR, Stalin LarkinK, Colorectal Cancer Screening: Recommendations for Physicians and Patients from the U.S. Multi-Society Task Force on Colorectal Cancer Screening , Am J Gastroenterology 2017; 112:4608-0569. TEST DESCRIPTION: Composite algorithmic analysis of stool [...] Bailey et al, N Engl J Med 2014;370(14):5101-4609.) Cologuard may produce a false negative or false positive result (no colorectal cancer or precancerous polyp present at colonoscopy follow up). A negative Cologuard test result does not guarantee the absence of CRC or advanced adenoma (pre-cancer). The current Cologuard screening interval is every 3 years. ([place] [employer] and U.S. Multi-Society Task Force). Cologuard performance data in a 10,000 patient pivotal study using colonoscopy as the reference method can be accessed at the following location: www.[employer]/results. Additional description of the Cologuard test process, warnings and precautions can be found at www.SensGard.com. Stool specimen (specimen) 03/26/2024 11:10 AM EST 03/27/2024 11:53 AM EST Cathleen Mo MD LAB MOLECULAR DIAGNOSTICS ORDERA BLES Final Result Performing Organization Address [facility] Co de Phone Number [facility] (CLIA #:[id number]) [place] [address], * Albumin, Random Urine W/Creatinine (11/08/2023 1:45 PM EDT) Creatinine, Urine 67.59 mg/dL [facility] Microalbumin Urine <5.0 mg/L [facility] Microalbum Creatinine Ratio Ur TNP <30 ug/mg cr [facility] Comment:Unable to calculate albumin/creatinine ratio due to lowmicroalbumin or creatinine result. Urine 11/08/2023 1:45 PM EDT 11/08/2023 3:56 PM EDT Cathleen Mo MD LAB URINE ORDERABLES Final Resul t Performing Organization Address [facility] de Phone Number [facility] [address] [place] [address] [phone] * BI Mammogram Screening Tomosynthesis Bilateral (07/13/2023 11:10 AM EDT) Anatomical Region Laterality Modality Breast Bilateral Mammography 07/13/2023 11:1 0 AM EDT Narrative 07/18/2023 3:46 PM EDT ? [facility] ? [address] ?[place] [address] ? Mammography Report ? Signed ? Patient: Joseph Mazariegos,Evelyn ?MR# ?? : [id number] ? : 1965 ?Acct:[id number] ? Age/Sex: 57 / F ?ADM Date: 04/17/24 ? Loc: HO.MAMMO ? Attending Dr: Cathleen Mo MD ? Ordering Physician: Cathleen Mo MD ?Results: 1Negative ? Date of Service: 07/13/23 ?Follow Up: 1 Year From Orig ?? inal Mammogram ? Procedure(s): MM tomosynthesis screening BI ?? Accession Number(s): [id number] ? cc: Cathleen Mo MD ? EXAMINATION: [...] 1543 ? DD/ 1110 ? TD/TT: ? [employer]: ? Procedure Note Donotuseinterpreter, Image - 07/18/2023 [facility] [address] [place] [address] Mammography Report Signed Patient: Sandra Rose DMR# : [id number] : 1965Acct:[id number] Age/Sex: 57 / FADM Date: 07/13/23 Loc: HO.MAMMO Attending Dr: Cathleen Mo MD Ordering Physician: Cathleen Mo MDResults: 1Negative Date of Service: 07/13/23Follow Up: 1 Year From Orig inal Mammogram Procedure(s): MM tomosynthesis screening BI Accession Number(s): [id number] cc: Cathleen Mo MD EXAMINATION: MM SCREENING [...] in OV> 07/18/23 1543 DD/ 1110 TD/TT: [employer]: Cathleen Mo MD IMG BI PROCEDURES Final Result * HIV-1/2 Antigen and Antibodies, Fourth Generation, with Reflexes (05/12/2023 11:06 AM EST) HIV AB/AG Nonreactive Nonreactive [facility] Comment:HIV-1 p24 Ag and/or HIV-1/HIV-2 Ab not detected.A test result that is nonreactive does not exclude thepossibility of exposure to or infection with HIV-1 and/orHIV-2. Nonreactive results in this assay for individualswith prior exposure to HIV-1 and/or HIV-2 may be due toantigen and antibody levels that are below the limit ofdetection of this assay.The What's More Al[employer] Than You HIV Ag/Ab Combo assay result andsupplemental assay results should be interpreted inconjunction with the patient's clinical presentation,history and other laboratory results. If the results areinconsistent with clinical evidence, additional testing issuggested to confirm the result. Blood Venous blood specimen / Unknown 05/12/2023 11:06 AM EST 05/12/2023 1:03 PM EST Cathleen Mo MD LAB BLOOD ORDERABLES Final Resul t [facility] [address] [place] [address] [phone] * Thinprep TIS PAP And HPV mRNA E6/E7 With Reflex To HPV 16,18/45 (04/29/2022 11:38 AM EST) Clinical Information: ROUTINE PAP [facility] LMP: NONE GIVEN [facility] Prev. PAP: NONE GIVEN [facility] Prev. BX: NONE GIVEN [facility] [employer] SOURCE: None given [facility] Statement Of Adequacy: [facility] Comment: Satisfactory for evaluation. Endocervical/transformation zone component present. Interpretation/ Result: Negative for intraepithelial lesion or malignancy. [employer] [place] [employer] COMMENT: This Pap test has been evaluated with computer assisted technology. [employer] [place] [employer] Cytotechnologis t: [employer] [place] [employer] Comment: SXA, CT(ASCP) CT screening location: [address] ??[phone] Review Cytotechnologis t: [employer] [place] [employer] Comment: JNA, CT(ASCP) CT screening location: [address] ??[phone] (Always Message) [employer] [place] [employer] Comment: EXPLANATORY NOTE: The Pap is a [...] HPV nRNA E6/E7 Not Detected Not Detected [employer] [place] [employer] Comment: Methodology: Bag Valver-Mediated Amplification This assay detects E6/E7 viral messenger RNA (mRNA) from 14 high-risk HPV types (16,18,31,33,35,39,45,51,52,56,58,59,66,68). Cervical sources are required for HPV testing. If a vaginal source from a patient who has had a total hysterectomy with removal of cervix was submitted, please contact the testing laboratory for alternative testing options. For additional information, please refer to http://education.Accruit/faq/FEP289o7 (This link if provided for information/ educational purposes only.) 04/29/2022 11:3 8 AM EST 04/30/2022 9:58 AM EST Narrative [facility] - 05/05/2022 2:36 PM EST FASTING: UNKNOWN us Cathleen Mo MD LAB PATHOLOGY ORDERABLES Final R esult [employer] [address] [place] [address], [facility], [place] [address] [employer] [place] [employer] [address] [facility], ([address]) [place] [phone] from Last 3 Months or Most Recently Relevant to Health Maintenance Insurance [facility] MEDICA[facility] STAND ADULT Care Teams Junior Mechanical Engineer Relationship Specialty Start Date End Date Cathleen Mo MD [address] [place] [phone] PCP - General Family Medicine 03/28/18 Tad Baez, LaurenD [address] [place], [place] [phone] Pharmacist Internal Medicine 03/16/24 Bhumi Monroe, BRIANNA [address] [place] [phone] Mushroom LaborerVp [employer] 05/21/24 [facility] 05/04/17
--- OUTSIDE RECORDS SUMMARY | 2024-07-26 17:05 | XMS_ITS | Encounter Summary ---
Author Organization [employer] Address [address] [place] [address] Care Team Providers Care Asl Interpreter Name Role Phone Cathleen Sears MD Primary Care Provider [phone] Tad Baez PharmD Unavailable [phone] Bhumi Monroe RN Unavailable [phone] Encounter Details Date Type Department Care Team (Latest Contact Info) Description 07/26/2024 Travel Social History Tobacco Use Types Packs/Day [...] the past 12 months, has t he [email or web address], gas, oil or water [employer] threatened to shut off services in your [...] 1:45 PM EDT Office Visit [facility] [address] [place] [address] TarraleighSilvia, OD [address] [place] [address] 09/04/2024 1:00 PM EDT Office Visit [facility] [address] [place] [address] Cathleen Sears MD [address] [place] [address] documented as of this encounter Visit Diagnoses Not on filedocumented in this encounter Additional Health Concerns Assessment Noted Time PHQ-9 Depression Total Score: 2 07/22/19 24 10:34 AM EDT documented as of this encounter Care Teams Asl Interpreter Relationship Specialty Start Date End Date Cathleen Sears MD [address] [place] [phone] PCP - General Family Medicine 03/28/18 Tad Baez, LaurenD [address] [place] [address] Pharmacist Internal Medicine 03/16/24 Bhumi Monroe RN [address] [place] [phone] [employer] Teaching Gr[employer] 7 And 8 Teacher 05/21/24 [facility] 05/04/17 documented as of this encounter
--- OUTSIDE RECORDS SUMMARY | 2024-07-26 17:05 | XMS_ITS | Encounter Summary ---
Author Organization [employer] Address [address] [place] [address] Care Team Providers Care Cleat Maker Name Role Phone Cathleen Sears MD Primary Care Provider [phone] Tad Baez PharmD Unavailable [phone] Bhumi Monroe RN Unavailable [phone] Encounter Details Date Type Department Care Team (Late st Contact Info) Description 07/26/2024 Telephone [facility] [address] [place] [address] Laura Shirley DO [address] [place], [place] [phone] Social History Tobacco Use Types Packs/Day Years [...] encounter Miscellaneous Notes * Telephone Encounter - Nasima Lawson RN - 07/26/2024 4:30 PM EDT Verbally discussed with patient that her chest x-ray showed RLL pneumonia. Advised that Dr. Barronent a different prescription for Levaquin to our pharmacy. Escorted patient to pharmacy to [facility]. Also advised that a repeat chest x-ray is needed in 2 weeks. Will call patient tomorrow for status check and to confirm patient got new Abx. * Telephone Encounter - Laura Shirley DO - 07/26/2024 4:15 PM EDT Please advise pt that her CXR shows PNA in the RLL and will treat with levaquin daily for one week.She needs to repeat CXR in 2 weeks. Thank you. documented in this encounter Plan of Treatment Upcoming Encounters Date Type Department Care Team (Late st Contact Info) Description 08/16/2024 1:45 PM EDT Office Visit [facility] [address] [place] [address] Silvia Cameron, OD [address] [place] [address] 09/04/2024 1:00 PM EDT Office Visit [facility] [address] [place] [address] Cathleen Sears MD [address] [place] [phone] Scheduled Orders Name Type Priority Associated Diagnoses Orde r Schedule XR Chest 2 Views Imaging Routine Pneumonia of right lower lobe due to infectious organism Expected: 07/26/2024, Expires: 07/26/2025 documented as of this encounter Visit Diagnoses Diagnosis Pneumonia of right lower lobe due to infectious organism- Primary documented in this encounter Additional Health Concerns Assessment Noted Time PHQ-9 Depression Total Score: 2 07/22/19 24 10:34 AM EDT documented as of this encounter Care Teams Cleat Maker Relationship Specialty Start Date End Date Cathleen Sears MD [address] [place] [address] PCP - General Family Medicine 03/28/18 Tad Baez, LaurenD [address] [place] [address] Pharmacist Internal Medicine 03/16/24 Bhumi Monroe, BRIANNA [address] [place] [phone] Door Tender[employer]ft 05/21/24 [facility] 05/04/17 documented as of this encounter
--- OUTSIDE RECORDS SUMMARY | 2024-07-26 17:05 | XMS_ITS | Encounter Summary ---
Author Organization [facility] [facility] Address [address] [facility] 7t [place] [address] Care Team Providers Care Director Title Name Role Phone Cathleen Sears MD Primary Care Provider [phone] Tad Baez PharmD Unavailable [phone] Bhumi Monroe RN Unavailable [phone] Reason for Referral * Imaging (Routine) - Closed Specialty Diagnoses / Procedures Referred By Sina nicolas Referred To Contact Radiology Diagnoses Zayra's thyroiditis Preauricular mass Parotid mass Procedures CT Soft Tissue Neck w/ Contrast Cathleen Sears MD [address] [place] [address] Phone: tel: fax: [address] Phone: tel: fax: Referral ID Status Reason Start Date Expiration Date Visits Re quested Visits Authorized [id number] Closed 02/07/2024 02/06/2025 1 1 Encounter Details Date Type Department Care Team (Late st Contact Info) Description 02/04/2024 Orders Only [facility] [address] [place], [place] [phone] Cathleen Sears MD [address] [place], [place] [phone] Zayra's thyroiditis (Primary Dx); Preauricular mass; Parotid [...] the past 12 months, has t he [place], gas, oil or water [employer] threatened to shut off services in your [...] Description 08/16/2024 1:45 PM EDT Office Visit [facility] [address] [place] [address] Silvia Cameron, OD [address] [place] [address] 09/04/2024 1:00 PM EDT Office Visit [facility] [address] [place] [address] Cathleen Sears MD [address] [place] [address] Scheduled Orders Name Type Priority Associated Diagnoses [...] as of this encounter Care Teams Director Title Relationship Specialty Start Date End Date Cathleen Sears MD [address] [place] [address] PCP - General Family Medicine 03/28/18 Tad Baez, PharmD [address] [place] [address] Pharmacist Internal Medicine 03/16/24 Bhumi Monroe, BRIANNA [address] [place] [phone] Supervisor Machine SetterChief Operator Lock Tender 05/21/24 [facility] 05/04/17 documented as of this encounter
--- OUTSIDE RECORDS SUMMARY | 2024-07-26 17:05 | XMS_ITS | Encounter Summary ---
Author Organization [employer] Address [address] [place] [address] Care Team Providers Care Customer Expert Name Role Phone Cathleen Sears MD Primary Care Provider [phone] Ivett Smith RN Unavailable [phone] Tad Baez PharmD Unavailable [phone] Bhumi Monroe RN Unavailable [phone] Encounter Details Date Type Department Care Team (Late st Contact Info) Description 07/27/2023 Orders Only [facility] [address] [place], [place] [phone] Cathleen Sears MD [address] [place], [place] [phone] Hypertension associated with diabetes (CMS/HCC) (CMS/HCC) (Primary [...] the past 12 months, has t he [place], gas, oil or water company threatened to [...] Description 08/16/2024 1:45 PM EDT Office Visit [facility] [address] [place] [address] Silvia Cameron, OD [address] [place] [address] 09/04/2024 1:00 PM EDT Office Visit [facility] [address] [place] [address] Cathleen Sears MD [address] [place] [address] documented as of this encounter Procedures Procedure Name Priority Date/Time Associated Diagnosis Comments TSH W/REFLEX TO FT4 Routine 08/03/2023 1 :18 PM EDT Leg swelling BASIC METABOLIC PANEL Routine 08/03/2023 1:18 PM EDT Leg swelling documented in this encounter Results * TSH with Reflex to Free T4 (08/03/2023 1:18 PM EDT) TSH reflex Free T4 0.57 0.32 - 4.0 uIU/mL [facility] Blood 08/03/2023 1:18 PM EDT 08/03/2023 4:15 PM EDT Cathleen Sears MD LAB BLOOD ORDERABLES Final Resul t Performing Organization Address [facility] de Phone Number [facility] [address] [place] [phone] * (ABNORMAL) Basic Metabolic Panel (08/03/2023 1:18 PM EDT) Sodium 142 135 - 145 mmol/L [facility] Potassium 3.4 3.3 - 5.1 mmol/L [facility] Chloride 93(L) 96 - 108 mmol/L [facility] Carbon Dioxide 36(H) 22 - 29 mmol/L [facility] Anion Gap 16 12 - 20 [facility] Urea Nitrogen (BUN) 11 9 - 16 mg/dL [facility] Creatinine, Serum 0.62 0.5 - 1.4 mg/dL [facility] Estimated Glomerular Filt Rate >60 [facility] Comment:NOTE: For -Am erican individuals, multiply the result by 1.210.Chronic Kidney Disease: Estimated GFR < 60 mL/min/1.39i5Pjtshm Kidney Disease: Estimated GFR < 15 mL/min/1.73m2 Glucose 130(H) 60 - 115 mg/dL [facility] Calcium 10.4(H) 8.4 - 10.2 mg/dL [facility] Blood Venous blood specimen / Unknown 08/03/2023 1:18 PM EDT 08/03/2023 4:15 PM EDT Cathleen Sears MD LAB BLOOD ORDERABLES Final Resul t Performing Organization Address [facility] Co de Phone Number [facility] [address] [place] [phone] documented in this encounter Visit Diagnoses Diagnosis Hypertension associated with diabetes (CMS/HCC)- Primary Unspecified essential hypertension Leg swelling Swelling of limb documented in this encounter Additional Health Concerns Assessment Noted Time PHQ-9 Depression Total Score: 2 07/22/19 24 10:34 AM EDT documented as of this encounter Care Teams Customer Expert Relationship Specialty Start Date End Date Cathleen Sears MD [address] [place] [address] PCP - General Family Medicine 03/28/18 Ivett Smith RN [address] [place] [address] Registered Nurse Case Management 12/30/22 01/24/24 Tad Baez PharmD [address] [place] [address] Pharmacist Internal Medicine 03/16/24 Bhumi Monroe RN [address] [place] [address] System TrainerCap And Stud Machine Operator 05/21/24 [facility] 05/04/17 documented as of this encounter
--- OUTSIDE RECORDS SUMMARY | 2024-07-26 17:05 | XMS_ITS | Encounter Summary ---
Author Organization [employer] Address [address] [place] [address] Care Team Providers Care Automotive Generator Repairer Name Role Phone Cathleen Sears MD Primary Care Provider [phone] Tad Baez PharmD Unavailable [phone] Bhumi Monroe RN Unavailable [phone] Reason for Visit * Reason Onset Date Comments Nurse Triage 07/26/2024 Encounter Details Date Type Department Care Team (Late st Contact Info) Description 07/26/2024 Telephone [facility] [address] [place], [place] [phone] Laura Shirley DO [address] [place], [place] [phone] Nurse Triage Social History Tobacco Use Types Packs/Day Years [...] Encounter - Nasima Lawson RN - 07/26/2024 2:51 PM EDT vp marketing Assessment: Patient presents to walk-in center with worsening shortness of breath and productive cough with green sputum x 7-8 days. Followed by [facility] Patient seen at [facility] 07/04 and diagnosed with a COPD exacerbation. Patient was advised to go to ED butdeclined at visit. She was treated with doxycycline and course of prednisone. Patient reports these medications helped, but she never felt 100% back to her baseline. Of note - At [facility] visit on 07/04, Patient ran out of her home oxygen tank at visit and was sent home with an [facility] oxygen tank. Patient reports she still has the tank at home but is having difficulty getting it here as she cannot carry both. This RN placed patient on [facility] tank upon arrival so patient will having enough oxygen in her tank to get home safely. Patient reports she plans on returning the tank when she has a new COMMUNICATION CENTER OPERATOR or help to bring it back. Vitals: BP 133/86 HR 102 RR 24 SpO2 93% on 6L O2 via NC Temp 98.3 (oral) In Office Testing: Influenza A/B and COVID swabs collected by [facility] and pending Plan: Report to Dr. Shirley Patient to be evaluated by provider Interpretor Trent GUERRERO documented in this encounter Plan of Treatment Upcoming Encounters Date Type Department Care Team (Late st Contact Info) Description 08/16/2024 1:45 PM EDT Office Visit [facility] [address] [place] [address] TarkaSilvia, OD [address] [place] [address] 09/04/2024 1:00 PM EDT Office Visit [facility] [address] [place] [address] Cathleen Sears MD [address] [place] [address] documented as of this encounter Visit Diagnoses Not on filedocumented in this encounter Additional Health Concerns Assessment Noted Time PHQ-9 Depression Total Score: 2 07/22/19 24 10:34 AM EDT documented as of this encounter Care Teams Automotive Generator Repairer Relationship Specialty Start Date End Date Cathleen Sears MD [address] [place] [phone] PCP - General Family Medicine 03/28/18 Tad Baez, LaurenD [address] [place] [phone] Pharmacist Internal Medicine 03/16/24 Bhumi Monroe, BRIANNA [address] [place] [address] Jewelry Casting Model Maker ApprenticeTravel Counselor 05/21/24 [facility] 05/04/17 documented as of this encounter
== END 2024-07-26 15:18 | disposition home or self-care (01) ==
LOC: HO.HHCX 15:17
PROVIDERS: Visit Provider Family Medicine
DX: J44.1 Chronic obstructive pulmonary disease with (acute) exacerbation (principal)
CPT/HCPCS: 71046

== ENCOUNTER → 2024-07-26 15:17 | Outpatient (BNV) | payer MEDICAID, SELFPAY | PROVIDERS: Visit Provider Radiology Diagnostic Radiology | DX: J18.9 Pneumonia, unspecified organism (principal); I51.7 Cardiomegaly | CPT/HCPCS: 71046 ==

== ENCOUNTER 2024-08-09 11:04 | Emergency (ER) | payer MEDICAID, SELFPAY ==
--- NOTE | ~2024-08-09 | XR_ITS ---
EXAMINATION: XR CHEST 2 VIEWS HISTORY: pain COMPARISON: Comparison is made with the prior examination dated 07/26/2024. FINDINGS: PA and lateral views of the chest are submitted. The lungs remain hyperinflated, consistent with COPD. There is been improved aeration of the right lung base since the prior study. Residual opacities remain. Again seen is linear scarring at the left lung base. There is no pleural effusion, pneumothorax, or pulmonary vascular congestion. The heart remains enlarged. The bones are intact. XR/XR chest 2V IMPRESSION: COPD. Improvement in previously seen right basilar pneumonia. Continued follow-up is recommended to document complete resolution. Electronically signed by: Jackson Mott MD 08/09/2024 11:44 AM EDT
[2024-08-09 11:07] VITALS: BP 117/67; PULSE 104; RESP 18; TEMP 35.5; O2SAT 93; BMI 28.0
--- NOTE | 2024-08-09 11:08 | ED.GENADULT ---
HPI - General Adult General Chief complaint: Dyspnea Stated complaint: diff breathing Time Seen by Provider: 08/09/24 11:48 Related Data Home Medications ?Medication ?Instructions ?Recorded ?Confirmed perphenazine 4 mg tablet 4 mg PO BEDTIME 09/24/21 04/02/24 levothyroxine 200 mcg tablet 200 mcg PO DAILY@0600 10/01/22 04/02/24 sertraline 25 mg tablet 25 mg PO DAILY@1200 10/01/22 04/02/24 umeclidinium 62.5 mcg/actuation 1 inh inhalation DAILY 10/01/22 04/02/24 blister powder for inhalation (Incruse Ellipta) ipratropium 0.5 mg-albuterol 3 mg 3 ml inhalation QID PRN wheezing 04/20/23 04/02/24 (2.5 mg base)/3 mL nebulization soln sertraline 100 mg tablet 100 mg PO DAILY@1200 04/20/23 04/02/24 furosemide 20 mg tablet 20 mg PO BID 08/16/23 04/02/24 amlodipine 10 mg tablet 5 mg PO DAILY@119909/03/23 04/02/24 albuterol sulfate 90 mcg/actuation 2 puff inhalation Q6H PRN wheezing 10/06/23 04/02/24 aerosol inhaler (Ventolin HFA) acetaminophen 500 mg tablet 1,000 mg PO Q8H PRN moderate pain 12/08/23 04/02/24 hydroxyzine pamoate 25 mg capsule 25 mg PO Q6H PRN itch 12/08/23 04/02/24 methadone 10 mg/mL oral concentrate 56 mg PO DAILY 01/06/24 04/02/24 levothyroxine 25 mcg tablet 25 mcg PO DAILY@59904/02/24 04/02/24 metformin 500 mg tablet,extended 500 mg PO BID 04/02/24 04/02/24 release 24 hr rosuvastatin 20 mg tablet 20 mg PO DAILY 04/02/24 04/02/24 Previous Rx's ?Medication ?Instructions ?Recorded fluticasone furoate 200 1 inh inhalation DAILY #60 ea 01/09/24 mcg-vilanterol 25 mcg/dose inhalation powder (Breo Ellipta) cefuroxime axetil 500 mg tablet 500 mg PO BID 10 days #20 tabs 04/04/24 prednisone 10 mg tablet See Rx Instructions .Route 04/04/24 .COMPLEX #45 tabs docusate sodium 100 mg capsule 100 mg PO BID PRN Constipation #60 06/20/24 caps famotidine 40 mg tablet 40 mg PO BEDTIME #30 tabs 06/20/24 pantoprazole 40 mg tablet,delayed 40 mg PO DAILY #30 tabs 06/20/24 release sennosides 8.6 mg tablet (senna) 17.2 mg (2 x 8.6 mg) PO BEDTIME 06/20/24 PRN constipation #60 tabs simethicone 180 mg capsule 180 mg PO BIDAC #60 caps 06/20/24 benzonatate 100 mg capsule 100 mg PO TID PRN cough #20 caps 08/09/24 Allergies Allergy/AdvReac Type Severity Reaction Status Date / Time Penicillins [PENICILLINS] Allergy Unknown RED ITCHY Verified 08/09/24 11:08 RASH SEAFOOD Allergy Unknown FEVER Uncoded 04/02/24 05:57 SWELLING PMFSH Past Medical History Medical History Alcoholic cirrhosis Diabetes type 2 Chronic respiratory failure Opioid use disorder, moderate, in sustained remission Opiate abuse, continuous Diabetes Nausea and vomiting COVID Community acquired pneumonia Colon cancer screening COPD (chronic obstructive pulmonary disease) Methadone dependence Hepatitis C Pulmonary edema Polysubstance abuse Hypertension Acute and chronic respiratory failure Hypotension Respiratory failure Acute respiratory failure, unspecified whether with hypoxia or hypercapnia Hyperlipidemia Psychosis Hypoxia Acute exacerbation of chronic obstructive airways disease HTN (hypertension) Hypothyroid COPD (chronic obstructive pulmonary disease) Family History Family History Father HTN (hypertension) Mother Gastritis Ovarian cancer Arthritis Son Thyroid disease Other Hypothyroid Social History Social History Household Members: Significant Other Household Members Other:: 1 Housing: Apartment Do you presently have visiting nurse or other home services: Yes Alcohol intake: current Alcohol intake frequency: does not drink Comment: refuses bed alarm at times Patient Tobacco Use Status: Current someday Tobacco user Tobacco use type: Cigarette Cigarette Packs Per Day: 1 Cigarettes Per Day: 10 Years Smoked: 30 e-Cigarette/Vaping Use: Never Used Second Hand Smoke Exposure: No Substance Use Type: Heroin Advance Directives: Yes Advance Directives on File: Yes Advance Directives Date on File: 08/18/23 service: No Current occupational status: unemployed Physical Exam ED Vital Signs: BMI result Body Mass Index 28.0 Course Course Course Narrative: RME, this is a rapid medical exam performed by Danielito Henderson please refer to primary provider for complete H&P- 58-year-old female past medical history significant for COPD on 4-6 L via nasal cannula, opiate use disorder, hepatitis-C cirrhosis, mood disorder presents for evaluation of shortness of breath. The patient had an x-ray 2 weeks ago today that showed a right lower lobe pneumonia. She reports she completed a 10 day course of antibiotics in his now feeling worsening shortness of breath. Her oxygen saturation is 94% on her baseline 5 L supplemental oxygen. She denies any pain. Plan for labs, repeat chest x-ray. I ordered blood cultures given the recent known infection, however she is afebrile and does not appear septic at the time of triage Medical Decision Making Lab Data 08/09/24 11:28 08/09/24 11:28 Labs: Lab Results 08/09/24 08/09/24 Range/Units 11:27 11:28 WBC 9.2 (4.8-10.8) X10*3/uL RBC 5.12 (4.20-5.50) X10*6/uL Hgb 14.5 (12.0-16.0) g/dl Hct 47.3 H (37.0-47.0) % MCV 92.4 (80.0-98.0) fL MCH 28.3 (27.0-33.0) pg MCHC 30.7 L (31.0-35.0) g/dl RDW 14.9 (11.0-16.0) % Plt Count 150 L (160-400) X10*3/uL MPV 10.5 (9.4-12.3) fL Immature Gran % (Auto) 0.4 (0.0-0.4) % Neut % (Auto) 55.6 (45-73) % Lymph % (Auto) 34.4 (20-40) % Morton % (Auto) 7.0 (2-11) % Eos % (Auto) 2.1 (0-4) % Baso % (Auto) 0.5 (0-2) % Lymph # (Auto) 3.2 (1.2-4.9) X10*3/uL Morton # (Auto) 0.6 (0.1-1.2) X10*3/uL Eos # (Auto) 0.2 (0.0-0.4) X10*3/uL Baso # (Auto) 0.1 (0.0-0.2) X10*3/uL Abs Immat Gran (auto) 0.04 H (0.00-0.03) X10*3/uL Absolute Neuts (auto) 5.1 (2.0-8.3) x10*3/uL Absolute Nucleated RBC 0.000 (0.0-0.012) X10*3/uL Nucleated RBC % (auto) 0.0 (0.0-0.2) /100WBC Sodium 141 (135-145) mmol/L Potassium 3.9 (3.3-5.1) mmol/L Chloride 97 (96-108) mmol/L Carbon Dioxide 35 H (22-29) mmol/L Anion Gap 13 (12-20) BUN 12 (9-16) mg/dL Creatinine 0.63 (0.5-1.4) mg/dL Estim Creat Clear Calc 100.6 Estimated GFR > 60 Random Glucose 134 H (60-115) mg/dL Lactic Acid 1.2 (0.5-2.0) mmol/L Calcium 8.8 D (8.4-10.2) mg/dL Total Bilirubin 0.4 (0.0-1.0) mg/dL AST 22 (5-31) U/L ALT 20 (0-31) U/L Alkaline Phosphatase 96 (39-117) U/L Total Protein 7.1 (6.5-8.0) g/dL Albumin 3.9 (3.5-5.0) g/dL Influenza Type A (PCR) NEGATIVE (Negative) Influenza Type B (PCR) NEGATIVE (Negative) RSV RNA Qual (PCR) NEGATIVE (Negative) SARS-CoV-2 RNA (RT-PCR) NEGATIVE (Negative) Discharge Plan Discharge Clinical Impression: COPD (chronic obstructive pulmonary disease) Patient Disposition: Home, Self-Care Instructions: Chronic Bronchitis (DC) Additional Instructions: Your blood work was normal, your chest x-ray showed improvement of the right lower lobe pneumonia from prior chest x-ray, you . stating that you feeling well Prescriptions: New benzonatate 100 mg capsule 100 mg PO TID PRN (Reason: cough) Qty: 20 0RF No Action ipratropium-albuterol 0.5 mg-3 mg(2.5 mg base)/3 mL solution for nebulization 3 ml inhalation QID PRN (Reason: wheezing) sertraline 100 mg Tablet 100 mg PO DAILY@1200 furosemide 20 mg tablet 20 mg PO BID amlodipine 10 mg tablet 5 mg PO DAILY@1200 albuterol sulfate [Ventolin HFA] 90 mcg/actuation HFA aerosol inhaler 2 puff INHALATION Q6H PRN (Reason: wheezing) acetaminophen 500 mg tablet 1,000 mg PO Q8H PRN (Reason: moderate pain) hydroxyzine pamoate 25 mg capsule 25 mg PO Q6H PRN (Reason: itch) methadone 10 mg/mL concentrate 56 mg PO DAILY Rx Instructions: [facility] meth[facility]one clinic per pt- dose reduced during hospitalization to 60 mg fluticasone furoate-vilanterol [Breo Ellipta] 200-25 mcg/dose Blister With Device 1 inh inhalation DAILY Qty: 60 0RF levothyroxine 25 mcg tablet 25 mcg PO DAILY@0600 metformin 500 mg tablet extended release 24 hr 500 mg PO BID rosuvastatin 20 mg Tablet 20 mg PO DAILY cefuroxime axetil 500 mg tablet 500 mg PO BID 10 Days Qty: 20 0RF prednisone 10 mg tablet See Rx Instructions .Route .COMPLEX Qty: 45 0RF Rx Instructions: 10 mg orally; 5 tabs p.o. daily x3 days; 4 tabs p.o. daily x3 days; 3 tabs daily x3 days; 2 tabs daily x3 days; 1 tab daily x3 days perphenazine 4 mg tablet 4 mg PO BEDTIME sertraline 25 mg tablet 25 mg PO DAILY@1200 Incruse Ellipta 62.5 mcg/actuation blister with device 1 inh inhalation DAILY levothyroxine 200 mcg tablet 200 mcg PO DAILY@0600 simethicone 180 mg capsule 180 mg PO BIDAC Qty: 60 6RF sennosides [senna] 8.6 mg tablet 17.2 mg PO BEDTIME PRN (Reason: constipation) Qty: 60 6RF pantoprazole 40 mg tablet,delayed release (DR/EC) 40 mg PO DAILY Qty: 30 6RF famotidine 40 mg tablet 40 mg PO BEDTIME Qty: 30 6RF docusate sodium 100 mg capsule 100 mg PO BID PRN (Reason: Constipation) Qty: 60 6RF Referrals: Physician,Unknown J [Primary Care Provider] - 08/13/24 Interventions: ED Discharge Assessment Last Done: 08/09/24 12:48 Discharge Date/Time: 08/09/24 12:49 Print Language: Panamanian
--- NOTE | 2024-08-09 11:11 | ECG_ITS ---
Test Reason : dypnea Blood Pressure : */* mmHG Vent. Rate : 96 BPM Atrial Rate : 96 BPM P-R Int : 154 ms QRS Dur : 88 ms QT Int : 390 ms P-R-T Axes : -2 -68 47 degrees QTcB Int : 492 ms Normal sinus rhythm Left axis deviation Prolonged QT Abnormal ECG When compared with ECG of 02-Apr-2024 06:04, No significant change was found Referred By: Brayan Henderson Electronically Signed By: SEBASTIAN VAN MD
[2024-08-09 11:38] LABS: MANUAL DIFF FLAG NO
[2024-08-09 11:39] LABS: Basophils Absolute Auto 0.1 X10*3/uL (0.0-0.2); Basophils Percent Auto 0.5 % (0-2); Eosinophils Absolute Auto 0.2 X10*3/uL (0.0-0.4); Eosinophils Percent Auto 2.1 % (0-4); Hematocrit 47.3 % (37.0-47.0); Hemoglobin 14.5 g/dl (12.0-16.0); Imm Gran Abs Auto 0.04 X10*3/uL (0.00-0.03); Imm Gran Pct Auto 0.4 % (0.0-0.4); Lymphocytes Absolute Auto 3.2 X10*3/uL (1.2-4.9); Lymphocytes Percent Auto 34.4 % (20-40); Mean Corpuscular HGB Conc 30.7 g/dl (31.0-35.0); Mean Corpuscular Hemoglobin 28.3 pg (27.0-33.0); Mean Corpuscular Volume 92.4 fL (80.0-98.0); Mean Platelet Volume 10.5 fL (9.4-12.3); Monocytes Absolute Auto 0.6 X10*3/uL (0.1-1.2); Neutrophils Absolute Auto 5.1 x10*3/uL (2.0-8.3); Neutrophils Percent Auto 55.6 % (45-73); Platelet Count 150 X10*3/uL (160-400); Red Blood Count 5.12 X10*6/uL (4.20-5.50); Red Cell Distribution Width 14.9 % (11.0-16.0); White Blood Count 9.2 X10*3/uL (4.8-10.8)
[2024-08-09 11:54] LABS: Lactic Acid 1.2 mmol/L (0.5-2.0)
[2024-08-09 11:55] LABS: Alanine Aminotransferase 20 U/L (0-31); Albumin Level 3.9 g/dL (3.5-5.0); Alkaline Phosphatase 96 U/L (39-117); Anion Gap 13 (12-20); Aspartate Amino Transferase 22 U/L (5-31); Bilirubin Total 0.4 mg/dL (0.0-1.0); Blood Urea Nitrogen 12 mg/dL (9-16); Calcium 8.8 mg/dL (8.4-10.2); Carbon Dioxide 35 mmol/L (22-29); Chloride 97 mmol/L (96-108); Creatinine Clr Calc Pharmacy 100.6; Estimated Glomerular Filt Rate > 60; Glucose Random 134 mg/dL (60-115); Potassium 3.9 mmol/L (3.3-5.1); Sodium 141 mmol/L (135-145); Total Protein 7.1 g/dL (6.5-8.0)
[2024-08-09 12:06] VITALS: BP 127/79; PULSE 90; RESP 22; O2SAT 90
[2024-08-09 12:18] LABS: Influenza A PCR NEGATIVE (Negative); Influenza B PCR NEGATIVE (Negative); Resp Syncy Virus RNA Qual PCR NEGATIVE (Negative); SARS COV2 PCR INHOUSE NEGATIVE (Negative)
[2024-08-09 12:24] VITALS: TEMP 36.9; O2SAT 93
--- NOTE | 2024-08-09 12:24 | ED_ITS ---
HPI - SOB/Dyspnea General Chief Complaint: Dyspnea Stated Complaint: diff breathing Time Seen by Provider: 08/09/24 11:48 Source: patient Mode of arrival: ambulatory Limitations: no limitations History of Present Illness HPI Narrative: This is a very nice 58 years old the patient with COPD at baseline she used 6 L of oxygen basically she was sent by the [facility] to have a follow- up chest x-ray follow-up labs, she was diagnosed with pneumonia she finished the antibiotic and she is feeling better she has chronic shortness of breath. Again the reason was of the visit was follow-up chest x-ray labs MD elicited complaint: shortness of breath Pertinent past history: COPD Onset (ago): week(s) Context: recent illness Timing: now resolved Severity: mild Exacerbating factors: nothing Relieving factors: nothing Known history of: COPD Associated symptoms: denies other symptoms Related Data Home oxygen amount: other (6 L) Home Medications ?Medication ?Instructions ?Recorded ?Confirmed perphenazine 4 mg tablet 4 mg PO BEDTIME 09/24/21 04/02/24 levothyroxine 200 mcg tablet 200 mcg PO DAILY@0610/01/22 04/02/24 sertraline 25 mg tablet 25 mg PO DAILY@119910/01/22 04/02/24 umeclidinium 62.5 mcg/actuation 1 inh inhalation DAILY 10/01/22 04/02/24 blister powder for inhalation (Incruse Ellipta) ipratropium 0.5 mg-albuterol 3 mg 3 ml inhalation QID PRN wheezing 04/20/23 04/02/24 (2.5 mg base)/3 mL nebulization soln sertraline 100 mg tablet 100 mg PO DAILY@119904/20/23 04/02/24 furosemide 20 mg tablet 20 mg PO BID 08/16/23 04/02/24 amlodipine 10 mg tablet 5 mg PO DAILY@119909/03/23 04/02/24 albuterol sulfate 90 mcg/actuation 2 puff inhalation Q6H PRN wheezing 10/06/23 04/02/24 aerosol inhaler (Ventolin HFA) acetaminophen 500 mg tablet 1,000 mg PO Q8H PRN moderate pain 12/08/23 04/02/24 hydroxyzine pamoate 25 mg capsule 25 mg PO Q6H PRN itch 12/08/23 04/02/24 methadone 10 mg/mL oral concentrate 56 mg PO DAILY 01/06/24 04/02/24 levothyroxine 25 mcg tablet 25 mcg PO DAILY@0600 04/02/24 04/02/24 metformin 500 mg tablet,extended 500 mg PO BID 04/02/24 04/02/24 release 24 hr rosuvastatin 20 mg tablet 20 mg PO DAILY 04/02/24 04/02/24 Previous Rx's ?Medication ?Instructions ?Recorded fluticasone furoate 200 1 inh inhalation DAILY #60 ea 01/09/24 mcg-vilanterol 25 mcg/dose inhalation powder (Breo Ellipta) cefuroxime axetil 500 mg tablet 500 mg PO BID 10 days #20 tabs 04/04/24 prednisone 10 mg tablet See Rx Instructions .Route 04/04/24 .COMPLEX #45 tabs docusate sodium 100 mg capsule 100 mg PO BID PRN Constipation #60 06/20/24 caps famotidine 40 mg tablet 40 mg PO BEDTIME #30 tabs 06/20/24 pantoprazole 40 mg tablet,delayed 40 mg PO DAILY #30 tabs 06/20/24 release sennosides 8.6 mg tablet (senna) 17.2 mg (2 x 8.6 mg) PO BEDTIME 06/20/24 PRN constipation #60 tabs simethicone 180 mg capsule 180 mg PO BIDAC #60 caps 06/20/24 benzonatate 100 mg capsule 100 mg PO TID PRN cough #20 caps 08/09/24 Allergies Allergy/AdvReac Type Severity Reaction Status Date / Time Penicillins [PENICILLINS] Allergy Unknown RED ITCHY Verified 08/09/24 11:08 RASH SEAFOOD Allergy Unknown FEVER Uncoded 04/02/24 05:57 SWELLING Review of Systems 2 Review of Systems: Yes unobtainable due to endotracheal tube ENT: Reports system reviewed and no additional complaints, except as documented Cardiovascular: Cardiovascular: Reports no additional cardiovascular complaints and Reports dyspnea Respiratory: Respiratory: Reports dyspnea [facility] Past Medical History Attestation statement: The following information was validated with the patient. [facility] Narrative: COPD O2 dependent 6 L Medical History Alcoholic cirrhosis Diabetes type 2 Chronic respiratory failure Opioid use disorder, moderate, in sustained remission Opiate abuse, continuous Diabetes Nausea and vomiting COVID Community acquired pneumonia Colon cancer screening COPD (chronic obstructive pulmonary disease) Methadone dependence Hepatitis C Pulmonary edema Polysubstance abuse Hypertension Acute and chronic respiratory failure Hypotension Respiratory failure Acute respiratory failure, unspecified whether with hypoxia or hypercapnia Hyperlipidemia Psychosis Hypoxia Acute exacerbation of chronic obstructive airways disease HTN (hypertension) Hypothyroid COPD (chronic obstructive pulmonary disease) Family History Family History Father HTN (hypertension) Mother Gastritis Ovarian cancer Arthritis Son Thyroid disease Other Hypothyroid Social History Social History Household Members: Significant Other Household Members Other:: 1 Housing: Apartment Do you presently have visiting nurse or other home services: Yes Alcohol intake: current Alcohol intake frequency: does not drink Comment: refuses bed alarm at times Patient Tobacco Use Status: Current someday Tobacco user Tobacco use type: Cigarette Cigarette Packs Per Day: 1 Cigarettes Per Day: 10 Years Smoked: 30 e-Cigarette/Vaping Use: Never Used Second Hand Smoke Exposure: No Substance Use Type: Heroin Advance Directives: Yes Advance Directives on File: Yes Advance Directives Date on File: 08/18/23 service: No Current occupational status: unemployed Physical Exam 2 Vital Signs: Vital Signs: Last Vital Signs Temp 98.4 F 08/09/24 12:48 Pulse 90 08/09/24 12:48 Resp 18 08/09/24 12:48 BP 127/79 08/09/24 12:48 Pulse Ox 93 08/09/24 12:48 O2 Del Method Nasal Cannula 08/09/24 12:48 O2 Flow Rate 6 08/09/24 12:48 Oxygen Flow Rate 6 08/09/24 11:07 BMI result Body Mass Index 28.0 Not acute distress she is comfortable in the stretcher Const: General: cooperative Nutritional Appearance: well nourished O rientation/consciousness: patient oriented x3 HEENT: Head: Yes normal to inspection General nose exam: Normal external nose present Face and sinus: Yes normal facial exam Mouth: Normal oral and palatal mucosa present Neck: Neck: Yes normal visual inspection Chest: Chest palpation & inspection: normal inspection of the chest Resp: Effort & Inspection: normal respiratory effort Auscultation: rhonchi Cardio: Jugular venous distension: no JVD Rate: regular rate Rhythm: r egular rhythm GI: Other: Soft nontender no guarding Palpation (GI): Soft to palpation Skin: General skin exam: no rashes or lesions noted Neuro: General: patient oriented x3 Medical Decision Making Medical Decision Making [facility] Narrative: Patient is here for follow-up chest x-ray labs we will do the chest x-ray and labs 12:28 patient has no fever she states she is feeling better, her WBC is normal 9.2, cxr showed improved the right lower lobe pneumonia, at this point I think the patient can be discharged home I do not think she needs another course of antibiotic. She is clinically stable, sat is 93% she is asking me a refill of Tessalon Differential Diagnosis Differential Diagnoses: The differential diagnosis associated with the presentation includes COPD exacerbation/bronchitis/pneumonia Admission/Observation Consideration of admission/observation: Escalation of care including admission/observation considered Lab Data [facility] Lab Attestation statement: I reviewed the patient's lab results. 08/09/24 11:28 08/09/24 11:28 Labs: Lab Results 08/09/24 08/09/24 Range/Units 11:27 11:28 WBC 9.2 (4.8-10.8) X10*3/uL RBC 5.12 (4.20-5.50) X10*6/uL Hgb 14.5 (12.0-16.0) g/dl Hct 47.3 H (37.0-47.0) % MCV 92.4 (80.0-98.0) fL MCH 28.3 (27.0-33.0) pg MCHC 30.7 L (31.0-35.0) g/dl RDW 14.9 (11.0-16.0) % Plt Count 150 L (160-400) X10*3/uL MPV 10.5 (9.4-12.3) fL Immature Gran % (Auto) 0.4 (0.0-0.4) % Neut % (Auto) 55.6 (45-73) % Lymph % (Auto) 34.4 (20-40) % [place] % (Auto) 7.0 (2-11) % Eos % (Auto) 2.1 (0-4) % Baso % (Auto) 0.5 (0-2) % Lymph # (Auto) 3.2 (1.2-4.9) X10*3/uL [place] # (Auto) 0.6 (0.1-1.2) X10*3/uL Eos # (Auto) 0.2 (0.0-0.4) X10*3/uL Baso # (Auto) 0.1 (0.0-0.2) X10*3/uL Abs Immat Gran (auto) 0.04 H (0.00-0.03) X10*3/uL Absolute Neuts (auto) 5.1 (2.0-8.3) x10*3/uL Absolute Nucleated RBC 0.000 (0.0-0.012) X10*3/uL Nucleated RBC % (auto) 0.0 (0.0-0.2) /100WBC Sodium 141 (135-145) mmol/L Potassium 3.9 (3.3-5.1) mmol/L Chloride 97 (96-108) mmol/L Carbon Dioxide 35 H (22-29) mmol/L Anion Gap 13 (12-20) BUN 12 (9-16) mg/dL Creatinine 0.63 (0.5-1.4) mg/dL Estim Creat Clear Calc 100.6 Estimated GFR > 60 Random Glucose 134 H (60-115) mg/dL Lactic Acid 1.2 (0.5-2.0) mmol/L Calcium 8.8 D (8.4-10.2) mg/dL Total Bilirubin 0.4 (0.0-1.0) mg/dL AST 22 (5-31) U/L ALT 20 (0-31) U/L Alkaline Phosphatase 96 (39-117) U/L Total Protein 7.1 (6.5-8.0) g/dL Albumin 3.9 (3.5-5.0) g/dL Influenza Type A (PCR) NEGATIVE (Negative) Influenza Type B (PCR) NEGATIVE (Negative) RSV RNA Qual (PCR) NEGATIVE (Negative) SARS-CoV-2 RNA (RT-PCR) NEGATIVE (Negative) Independent Interpretation I performed an independent interpretation of an: Plain X-Ray Interpretation: Not acute disease Radiology Impression Discussion of test interpretation with radiology: I have reviewed the radiologist's reading. Radiologist Impression: Improved the pneumonia Discharge Plan Discharge Clinical Impression: COPD (chronic obstructive pulmonary disease) Qualifiers: COPD type: unspecified COPD Qualified Code(s): J44.9 - Chronic obstructive pulmonary disease, unspecified Patient Disposition: Home, Self-Care Instructions: Chronic Bronchitis (DC) Additional Instructions: Your blood work was normal, your chest x-ray showed improvement of the right lower lobe pneumonia from prior chest x-ray, you . stating that you feeling well Prescriptions: New benzonatate 100 mg capsule 100 mg PO TID PRN (Reason: cough) Qty: 20 0RF No Action ipratropium-albuterol 0.5 mg-3 mg(2.5 mg base)/3 mL solution for nebulization 3 ml inhalation QID PRN (Reason: wheezing) sertraline 100 mg Tablet 100 mg PO DAILY@1200 furosemide 20 mg tablet 20 mg PO BID amlodipine 10 mg tablet 5 mg PO DAILY@1200 albuterol sulfate [Ventolin HFA] 90 mcg/actuation HFA aerosol inhaler 2 puff INHALATION Q6H PRN (Reason: wheezing) acetaminophen 500 mg tablet 1,000 mg PO Q8H PRN (Reason: moderate pain) hydroxyzine pamoate 25 mg capsule 25 mg PO Q6H PRN (Reason: itch) methadone 10 mg/mL concentrate 56 mg PO DAILY Rx Instructions: [facility] methadone clinic per pt- dose reduced during hospitalization to 60 mg fluticasone furoate-vilanterol [Breo Ellipta] 200-25 mcg/dose Blister With Device 1 inh inhalation DAILY Qty: 60 0RF levothyroxine 25 mcg tablet 25 mcg PO DAILY@0600 metformin 500 mg tablet extended release 24 hr 500 mg PO BID rosuvastatin 20 mg Tablet 20 mg PO DAILY cefuroxime axetil 500 mg tablet 500 mg PO BID 10 Days Qty: 20 0RF prednisone 10 mg tablet See Rx Instructions .Route .COMPLEX Qty: 45 0RF Rx Instructions: 10 mg orally; 5 tabs p.o. daily x3 days; 4 tabs p.o. daily x3 days; 3 tabs daily x3 days; 2 tabs daily x3 days; 1 tab daily x3 days perphenazine 4 mg tablet 4 mg PO BEDTIME sertraline 25 mg tablet 25 mg PO DAILY@1200 Incruse Ellipta 62.5 mcg/actuation blister with device 1 inh inhalation DAILY levothyroxine 200 mcg tablet 200 mcg PO DAILY@0600 simethicone 180 mg capsule 180 mg PO BIDAC Qty: 60 6RF sennosides [senna] 8.6 mg tablet 17.2 mg PO BEDTIME PRN (Reason: constipation) Qty: 60 6RF pantoprazole 40 mg tablet,delayed release (DR/EC) 40 mg PO DAILY Qty: 30 6RF famotidine 40 mg tablet 40 mg PO BEDTIME Qty: 30 6RF docusate sodium 100 mg capsule 100 mg PO BID PRN (Reason: Constipation) Qty: 60 6RF Referrals: Physician,Unknown J [Primary Care Provider] - 08/13/24 Interventions: ED Discharge Assessment Last Done: 08/09/24 12:48 Discharge Date/Time: 08/09/24 12:49 Print Language: Nigerian
[2024-08-09 12:48] VITALS: BP 127/79; PULSE 90; RESP 18; TEMP 36.9; O2SAT 93
--- OUTSIDE RECORDS SUMMARY | 2024-08-09 13:04 | XMS_ITS | Clinical Summary ---
Author Organization [employer] Address [address] [place] [address] Care Team Providers Care [employer] Name Role Phone Cathleen Mo MD Primary Care Provider [phone] Tad Baez PharmD Unavailable [phone] Bhumi Monroe RN Unavailable [phone] Allergies Active Allergy Reactions Criticality Noted Date Comments Buspirone Itching 06/03/2017 Penicillins Rash Low 10/20/2011 Other Reaction(s): RED ITCHY RASH Shellfish Allergy Fever 12/13/2019 Other Reaction(s): FEVER SWELLING Medications perphenazine 4 MG tablet Take 4 mg by mouth at bedtime. 01/22/20 22 Active Simethicone Ultra Strength 180 MG capsule TAKE 1 CAPSULE BY MOUTH TWICE DAILY AFTER MEALS 11/27/19 22 Active Incruse Ellipta 62.5 MCG/ACT aerosol powder INHALE 1 PUFF EVERY DAY AT THE SAME TIME 12/31/19 22 Active pantoprazole (ProtoNix) 40 MG EC tablet TAKE 1 TABLET BY MOUTH EVERYDAY AT NOON 90 tablet 3 01/05/20 23 Active docusate sodium (Colace) 100 MG capsule Take 1 capsule (100 mg) by mouth if needed in the morning and at bedtime for constipation. 60 capsule 3 04/28/19 24 Active senna (Senokot) 8.6 MG tablet TAKE 2 TABLETS BY MOUTH AT BEDTIME NEEDED FOR CONSTIPATION 180 tablet 3 04/29/19 24 Active Blood Glucose Monitoring Suppl (FreeStyle Lite) w/Device kit 1 each 2 times daily. Use to check blood sugar two times per day 1 kit 07/12/19 24 Active FreeStyle lancets 1 each by Other route 2 times daily. Use bid, dx type 2 diabetes 60 each 07/12/19 Active Alcohol Swabs pads 1 each 2 times daily. 100 each 07/12/19 Active famotidine (Pepcid) 40 MG tablet Take 40 mg by mouth at bedtime. 06/29/19 24 Active methadone (Dolophine) 10 MG/ML solution Take 60 mg by mouth Once per day. 04/21/19 24 Active lidocaine (Lidoderm) 5 % patch APPLY 1 PATCH TOPICALLY TO SKIN, LEAVE ON FOR 12 HOURS AND OFF FOR 12 HOURS DIRECTED NEEDED FOR PAIN 30 patch 11 10/11/19 24 Active rosuvastatin (Crestor) 20 MG tablet TAKE 1 TABLET BY MOUTH AT BEDTIME 90 tablet 3 11/22/19 24 Active acetaminophen (Tylenol Extra Strength) 500 MG tablet Take 2 tablets (1,000 mg) by mouth every 8 (eight) hours if needed for mild pain or moderate pain. 180 tablet 3 11/29/19 24 Active Varenicline Tartrate, Starter, 0.5 MG X 11 & 1 MG X 42 tablet therapy pack Take 1 tablet by mouth 2 times daily. 0.5 mg once daily for 3 days, then 0.5 mg twice daily for 3 days, then 1 mg twice daily. 1 each 11/29/19 24 Active hydrocortisone (Anusol-HC) 2.5 % rectal cream INSERT 1 APPLICATORFUL RECTALLY TWICE DAILY FOR HEMORRHOIDS 12/21/19 Active hydrOXYzine pamoate (Vistaril) 25 MG capsule TAKE 1 CAPSULE BY MOUTH EVERY 6 HOURS NEEDED FOR ITCHING 120 capsule 1 01/27/20 24 Active Breo Ellipta 200-25 MCG/ACT aerosol powder Inhale 1 puff Once per day. 30 each 02/02/20 24 Active metFORMIN XR (Glucophage-XR) 500 MG 24 hr tablet Take 1 tablet (500 mg) by mouth with breakfast and with evening meal. Do not crush, chew, or split. 180 tablet 3 02/06/20 24 Active nicotine polacrilex (Nicorette) 4 MG gumIndications:Tob acco dependence Chew 1 piece of gum every 1-2 hours as needed for cravings. 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 45 tablet 1 06/13/19 25 Active sertraline (Zoloft) 25 MG tablet Take 25 mg by mouth Once per day. 06/09/19 25 Active levothyroxine (Synthroid, Levoxyl) 25 MCG tabletIndications: Other specified hypothyroidism TAKE 1 TABLET BY MOUTH EVERY MORNING 90 tablet 07/03/19 25 Active amLODIPine (Norvasc) 5 MG tablet TAKE 1 TABLET BY MOUTH EVERYDAY AT NOON 90 tablet 07/03/19 25 Active furosemide (Lasix) 20 MG tablet TAKE 1 TABLET BY MOUTH TWICE DAILY 180 tablet 07/03/19 25 Active azithromycin (Zithromax) 250 MG tablet Take 2 tablets PO daily x one day then 1 tablet PO daily x 4 days 6 tablet 07/27/19 25 Active predniSONE (Deltasone) 10 MG tablet Take [...] PO daily x 2 days 43 tablet 07/27/19 25 Active cetirizine (ZyrTEC) 10 MG tablet Take 0.5 tablets (5 mg) by mouth Once per day. 15 tablet 3 07/27/19 25 026 Active fluticasone (Flonase) 50 MCG/ACT nasal spray Administer 2 sprays into each nostril Once per day. Shake gently. Before first use, prime pump. After use, clean tip and replace cap. 16 g 3 07/27/19 25 026 Active guaiFENesin (Mucinex) 600 MG 12 hr tablet Take 1 tablet (600 mg) by mouth if needed in the morning and at bedtime for cough or congestion. Do not crush, chew, or split. 30 tablet 07/27/19 25 026 Active glucose blood test strip Use to check blood sugar two times per day 100 each 12 07/12/19 025 doxycycline (Vibramycin) 100 MG capsule Take 1 capsule (100 mg) by mouth 2 times daily for 7 days. Take with at least 8 ounces (large glass) of water, do not lie down for 30 minutes after 14 capsule 07/05/19 25 025 predniSONE (Deltasone) 10 MG tablet Take 4 tablets (40 mg) by mouth Once per day for 3 days, THEN 3 tablets (30 mg) Once per day for 3 days, THEN 2 tablets (20 mg) Once per day for 3 days, THEN 1 tablet (10 mg) Once per day for 3 days. 30 tablet 07/05/19 25 025 benzonatate (Tessalon Perles) 100 MG capsule Take 1 capsule (100 mg) by mouth if needed in the morning, at noon, and at bedtime for cough for up to 10 days. Do not crush or chew. 30 capsule 07/27/19 25 025 levoFLOXacin (Levaquin) 750 MG tablet Take 1 tablet (750 mg) by mouth Once per day for 7 days. 7 tablet 07/27/19 25 025 Active Problems Problem Noted Date Diagnosed Date [...] leg, and APAP prn - referred to geophysics professor as requested by patient's caregiver - prescribe a cane to offload the weight Assessment & Plan (10/12/2023 11:52 AM EDT): - s/p fall - X-ray on 10/04/23 shows mildly displaced fracture of 2nd distal phalanx - continue off weight, ice, elevate leg, and APAP prn - refer to geophysics professor as requested by patient's caregiver Popliteal cyst, right 10/02/2023 Assessment & Plan (10/11/2023 11:43 AM EDT): -seen on US during recent admission -repeat US Assessment & Plan (10/02/2023 4:46 PM EDT): -seen on US during recent admission -repeat US Abdominal bloating 09/27/2023 Centrilobular emphysema 09/27/2023 Overview (06/16/2024): - Epoxy Specialist: Ashly, last seen on 06/07/24 - Severe [...] supplemental oxygen 4L-6L; recommended to discuss with roving teller regarding to oxygen concentrator. - Anticipate to start BiPAP 21/7 mmHg - Strongly encouraged to get COVID vaccine - Keep appt with roving teller and resume pulmonary rehab. -Treatment Hx: Budesonide - Formoterol (Symbicort) was changed to Wixela in Jan 2023. Plan to try fluticasone / umeclidinium / vilanterol (Trelegy) per roving teller. Colon cancer screening 09/27/2023 Assessment & Plan [...] Plan (06/16/2024 6:01 AM EDT): Following with [facility], last seen in Nov 2023 FIB-4 index 1.78 Check the status of US (advised to call the office with toddler caregiver) Avoid hepatotoxic drugs Maintain non-alcohol life Follow up with GI as scheduled Assessment & Plan (05/03/2024 5:15 PM EST): Following with [facility], last seen in Nov 2023 FIB-4 index 1.78 Check the status of US (advised to call the office with toddler caregiver) Avoid hepatotoxic drugs Maintain non-alcohol life Follow up with GI as scheduled Assessment & Plan (03/26/2024 5:03 PM EST): Following with [facility], last seen in Nov 2023 FIB-4 index 1.78 Check the status of US (advised to call the office with toddler caregiver) Avoid hepatotoxic drugs Maintain non-alcohol life Follow up with GI as scheduled Assessment & Plan (02/06/2024 5:37 AM EST): Following with [facility], last seen in Nov 2023 FIB-4 index 1.78 Check the status of US (advised to call the office with toddler caregiver) Avoid hepatotoxic drugs Maintain non-alcohol life Follow up with GI as scheduled Assessment & Plan (11/29/2023 11:32 AM EDT): Following with [facility], last seen in May 2023 FIB-4 index 1.78 Check the status of US Avoid hepatotoxic drugs Maintain non-alcohol life Follow up with GI as scheduled Assessment & Plan (10/11/2023 11:42 AM EDT): Following with [facility], last seen in May 2023 FIB-4 index 1.78 Check the status of US Avoid hepatotoxic drugs Maintain non-alcohol life Follow up with GI as scheduled Assessment & Plan (10/02/2023 4:34 PM EDT): Following with [facility], last seen in May 2023 FIB-4 index 1.78 Check the status of US Avoid hepatotoxic drugs Maintain non-alcohol life Follow up with GI as scheduled Assessment & Plan (08/27/2023 6:55 AM EDT): Following with [facility], last seen in May 2023 FIB-4 [...] & Plan (06/16/2024 5:58 AM EDT): - Epoxy Specialist: Ashly, last seen on 06/07/24 - Severe [...] supplemental oxygen 4L-6L; recommended to discuss with roving teller regarding to oxygen concentrator. - Anticipate to start BiPAP 21/7 mmHg - Strongly encouraged to get COVID vaccine - Keep appt with roving teller and resume pulmonary rehab. -Treatment Hx: Budesonide - Formoterol (Symbicort) was changed to Wixela in Jan 2023. Plan to try fluticasone / umeclidinium / vilanterol (Trelegy) per roving teller. Assessment & Plan (05/03/2024 5:14 PM EST): - Epoxy Specialist: Ashly, last seen on 12/29/23 - Severe [...] supplemental oxygen 4L-6L; recommended to discuss with roving teller regarding to oxygen concentrator. - Strongly encouraged to get COVID vaccine - Keep appt with roving teller and resume pulmonary rehab. -Treatment Hx: Budesonide - Formoterol (Symbicort) was changed to Wixela in Jan 2023. Plan to try Trelegy. Assessment & Plan (04/02/2024 6:16 AM EST): - Epoxy Specialist: Ashly, last seen on 11/18/23 - Severe [...] supplemental oxygen 4L-6L; recommended to discuss with roving teller regarding to oxygen concentrator. - Strongly encouraged to get COVID vaccine - Keep appt with roving teller and resume pulmonary rehab. -Treatment Hx: Budesonide - Formoterol (Symbicort) was changed to Wixela in Jan 2023. Plan to try Trelegy. -Since she seldom sees her [facility] roving teller, and she is well-known to [facility] roving teller / critical medicine teams, we discussed about transferring care to [facility] pulmonology. Patient agreed with the plan initially, but decided to stay with [facility] roving teller. Assessment & Plan (02/06/2024 5:34 AM EST): - Epoxy Specialist: Ashly, last seen on 11/18/23 - Severe [...] supplemental oxygen 4L-6L; recommended to discuss with roving teller regarding to oxygen concentrator. - Strongly encouraged to get COVID vaccine - Keep appt with roving teller and resume pulmonary rehab. -Treatment Hx: Budesonide - Formoterol (Symbicort) was changed to Wixela in Jan 2023. Plan to try Trelegy. -Since she seldom sees her [facility] roving teller, and she is well-known to [facility] roving teller / critical medicine teams, we discussed about transferring care to [facility] pulmonology. Patient agreed with the plan initially, but decided to stay with [facility] roving teller. Assessment & Plan (11/29/2023 11:51 AM EDT): - Epoxy Specialist: Ashly, last seen on 11/18/23 - Severe [...] supplemental oxygen 4L-6L; recommended to discuss with roving teller regarding to oxygen concentrator. - Strongly encouraged to get COVID vaccine - Keep appt with roving teller -Treatment Hx: Budesonide - Formoterol (Symbicort) was changed to Wixela in Jan 2023. Plan to try Trelegy. Assessment & Plan (10/11/2023 11:41 AM EDT): - Epoxy Specialist: Ashly, last seen on 05/31/23 - Severe [...] supplemental oxygen 4L-6L; recommended to discuss with roving teller regarding to oxygen concentrator. - Strongly encouraged to get COVID vaccine - Keep appt with roving teller -Treatment Hx: Budesonide - Formoterol (Symbicort) was changed to Wixela in Jan 2023. Plan to try Trelegy. Assessment & Plan (10/04/2023 5:21 PM EDT): - Epoxy Specialist: [facility], last seen on 05/31/23 - Severe [...] supplemental oxygen 4L-6L; recommended to discuss with roving teller regarding to oxygen concentrator. - Strongly encouraged to get COVID vaccine - Keep appt with roving teller -Treatment Hx: Budesonide - Formoterol (Symbicort) was changed to Wixela in Jan 2023. Plan to try Trelegy. Assessment & Plan (08/23/2023 3:08 PM EDT): - Epoxy Specialist: [facility], last seen on 05/31/23 - Severe [...] supplemental oxygen 4L-6L; recommended to discuss with roving teller regarding to oxygen concentrator. - Strongly encouraged to get COVID vaccine - Keep appt with roving teller -Treatment Hx: Budesonide - Formoterol (Symbicort) was changed to Wixela in Jan 2023. Plan to try Trelegy. Assessment & Plan (05/08/2023 6:27 AM EST): - Epoxy Specialist: [facility], last seen on 01/28/23 - Acute on [...] get COVID vaccine - Keep appt with roving teller. Plan at last visit was to do a nocturnal polysomnogram with TCCO2 monitoring to evaluate for nocturnal non-invasive ventilator assessment and chest CT w/o contrast and TTE after polysomnogram Assessment & Plan (03/01/2023 6:50 AM EST): - Epoxy Specialist: [facility], last seen on 01/28/23 - Severe exacerbation [...] Dx COPD exacerbation, CAP, Tx azithromycin - [facility] hospitalization 01/11/19-01/17/19, b/l lower lobe pneumonia, L [...] get COVID vaccine - Keep appt with roving teller -Treatment Hx: Budesonide - Formoterol (Symbicort) was changed to Wixela in Jan 2023. Plan to try Trelegy. Gastroesophageal reflux disease 09/09/2022 Assessment & Plan (08/23/2023 3:11 PM EDT): [facility], last seen in May 2023 Continue pantoprazole and famotidine History of alcohol use disorder 09/09/2022 History of intravenous drug abuse 09/09/2022 Post-traumatic stress disorder 09/09/2022 COPD (chronic obstructive pulmonary disease) Assessment & Plan (06/16/2024 5:57 AM EDT): - Epoxy Specialist: Ashly, last seen on 06/07/24 - Severe [...] supplemental oxygen 4L-6L; recommended to discuss with roving teller regarding to oxygen concentrator. - Anticipate to start BiPAP 21/7 mmHg - Strongly encouraged to get COVID vaccine - Keep appt with roving teller and resume pulmonary rehab. -Treatment Hx: Budesonide - Formoterol (Symbicort) was changed to Wixela in Jan 2023. Plan to try fluticasone / umeclidinium / vilanterol (Trelegy) per roving teller. Assessment & Plan (05/03/2024 5:06 PM EST): - Epoxy Specialist: Ashly, last seen on 12/29/23 - Severe [...] supplemental oxygen 4L-6L; recommended to discuss with roving teller regarding to oxygen concentrator. - Strongly encouraged to get COVID vaccine - Keep appt with roving teller and resume pulmonary rehab. -Treatment Hx: Budesonide - Formoterol (Symbicort) was changed to Wixela in Jan 2023. Plan to try fluticasone / umeclidinium / vilanterol (Trelegy) per roving teller. Assessment & Plan (04/02/2024 6:16 AM EST): - Epoxy Specialist: [place], last seen on 11/18/23 - Severe exacerbation [...] supplemental oxygen 4L-6L; recommended to discuss with roving teller regarding to oxygen concentrator. - Strongly encouraged to get COVID vaccine - Keep appt with roving teller and resume pulmonary rehab. -Treatment Hx: Budesonide - Formoterol (Symbicort) was changed to Wixela in Jan 2023. Plan to try Trelegy. -Since she seldom sees her [facility] roving teller, and she is well-known to [facility] roving teller / critical medicine teams, we discussed about transferring care to [facility] pulmonology. Patient agreed with the plan initially, but decided to stay with [facility] roving teller. Assessment & Plan (02/06/2024 5:33 AM EST): - Epoxy Specialist: [place], last seen on 11/18/23 - Severe exacerbation [...] supplemental oxygen 4L-6L; recommended to discuss with roving teller regarding to oxygen concentrator. - Strongly encouraged to get COVID vaccine - Keep appt with roving teller and resume pulmonary rehab. -Treatment Hx: Budesonide - Formoterol (Symbicort) was changed to Wixela in Jan 2023. Plan to try Trelegy. -Since she seldom sees her [facility] roving teller, and she is well-known to [facility] roving teller / critical medicine teams, we discussed about transferring care to [facility] pulmonology. Patient agreed with the plan initially, but decided to stay with [facility] roving teller. Assessment & Plan (11/29/2023 11:51 AM EDT): - Epoxy Specialist: Ashly, last seen on 11/18/23 - Severe [...] supplemental oxygen 4L-6L; recommended to discuss with roving teller regarding to oxygen concentrator. - Strongly encouraged to get COVID vaccine - Keep appt with roving teller -Treatment Hx: Budesonide - Formoterol (Symbicort) was changed to Wixela in Jan 2023. Plan to try Trelegy. Assessment & Plan (10/11/2023 11:41 AM EDT): - Epoxy Specialist: Ashly, last seen on 05/31/23 - Severe [...] supplemental oxygen 4L-6L; recommended to discuss with roving teller regarding to oxygen concentrator. - Strongly encouraged to get COVID vaccine - Keep appt with roving teller -Treatment Hx: Budesonide - Formoterol (Symbicort) was changed to Wixela in Jan 2023. Plan to try Trelegy. Assessment & Plan (10/04/2023 5:20 PM EDT): - Epoxy Specialist: Ashly, last seen on 05/31/23 - Severe [...] supplemental oxygen 4L-6L; recommended to discuss with roving teller regarding to oxygen concentrator. - Strongly encouraged to get COVID vaccine - Keep appt with roving teller -Treatment Hx: Budesonide - Formoterol (Symbicort) was changed to Wixela in Jan 2023. Plan to try Trelegy. Assessment & Plan (08/23/2023 3:08 PM EDT): - Epoxy Specialist: Ashly, last seen on 05/31/23 - Severe [...] supplemental oxygen 4L-6L; recommended to discuss with roving teller regarding to oxygen concentrator. - Strongly encouraged to get COVID vaccine - Keep appt with roving teller -Treatment Hx: Budesonide - Formoterol (Symbicort) was changed to Wixela in Jan 2023. Plan to try Trelegy. Assessment & Plan (05/31/2023 4:31 PM EST): - Epoxy Specialist: Ashly, last seen on 01/28/23 - Severe [...] supplemental oxygen 4L-6L; recommended to discuss with roving teller regarding to oxygen concentrator. - Strongly encouraged to get COVID vaccine - Keep appt with roving teller -Treatment Hx: Budesonide - Formoterol (Symbicort) was changed to Wixela in Jan 2023. Plan to try Trelegy. Assessment & Plan (05/08/2023 6:17 AM EST): - Epoxy Specialist: Ashly, last seen on 01/28/23 - Severe [...] get COVID vaccine - Keep appt with roving teller -Treatment Hx: Budesonide - Formoterol (Symbicort) was changed to Wixela in Jan 2023. Plan to try Trelegy. Assessment & Plan (03/01/2023 6:49 AM EST): - Epoxy Specialist: Ashly, last seen on 01/28/23 - Severe [...] Dx COPD exacerbation, CAP, Tx azithromycin - [facility] hospitalization 01/11/19-01/17/19, b/l lower lobe pneumonia, L [...] get COVID vaccine - Keep appt with roving teller -Treatment Hx: Budesonide - Formoterol (Symbicort) was changed to Wixela in Jan 2023. Plan to try Trelegy. Assessment & Plan (12/24/2022 3:40 PM EDT): - Epoxy Specialist: Ashly, last seen on 04/15/22 - Severe exacerbation 1-2 per year, none in [id number] - Most recent exacerbation today 12/22/22, Rx prednisone taper and azithromycin - Last hospitalization for COPD exacerbation in Feb 2020, Rx ceftriaxone, steroid, discharged with prednisone burst. - Hospitalization in Mar 2019. Dx COPD exacerbation. Rx prednisone and doxycycline - Exacerbation in Jan 2019, hospitalized 02/05/19- 02/07/19, Dx COPD exacerbation, CAP, Tx azithromycin - [facility] hospitalization 01/11/19-01/17/19, b/l lower lobe pneumonia, L > R, treated with IV steroid, levofloxacin, and bronchodilators Tx. Discharged with prednisone, benzonatate, levofloxacin. - Continue Symbicort and Incruse as maintenance. Plan to switch to Trelegy per roving teller - Continue albuterol HFA prn. - Continue DuoNeb for neb prn Tx. - Continue workin on smoking cessation. - Continue supplemental oxygen 4L - Keep appt with roving teller - Strongly encouraged to get COVID vaccine Assessment & Plan (12/05/2022 5:51 AM EDT): - Epoxy Specialist: Ashyl, last seen on 04/15/22 - Severe exacerbation 1-2 per year, none in [id number] - Most recent exacerbation in Feb 2020, required hospitalization at [facility], Rx ceftriaxone, steroid, discharged with prednisone burst. - Hospitalization in Mar 2019. Dx COPD exacerbation. Rx prednisone and doxycycline - Exacerbation in Jan 2019, hospitalized 02/05/19- 02/07/19, Dx COPD exacerbation, CAP, Tx azithromycin - [facility] hospitalization 01/11/19-01/17/19, b/l lower lobe pneumonia, L > R, treated with IV steroid, levofloxacin, and bronchodilators Tx. Discharged with prednisone, benzonatate, levofloxacin. - Continue Symbicort and Incruse as maintenance. Plan to switch to Trelegy per roving teller - Continue albuterol HFA prn. - Continue DuoNeb for neb prn Tx. - Continue workin on smoking cessation. - Continue supplemental oxygen 4L - Keep appt with roving teller - Strongly encouraged to get COVID vaccine Assessment & Plan (05/08/2022 5:47 PM EST): - Epoxy Specialist: Ashly, last seen on 04/15/22 - Severe exacerbation 1-2 per year, none in [id number] - Most recent exacerbation in Feb 2020, required hospitalization at [facility], Rx ceftriaxone, steroid, discharged with prednisone burst. - Hospitalization in Mar 2019. Dx COPD exacerbation. Rx prednisone and doxycycline - Exacerbation in Jan 2019, hospitalized 02/05/19- 02/07/19, Dx COPD exacerbation, CAP, Tx azithromycin - [facility] hospitalization 01/11/19-01/17/19, b/l lower lobe pneumonia, L > R, treated with IV steroid, levofloxacin, and bronchodilators Tx. Discharged with prednisone, benzonatate, levofloxacin. - Continue Symbicort and Incruse as maintenance. Plan to switch to Trelegy per roving teller - Continue albuterol HFA prn. - Continue DuoNeb for neb prn Tx. - Continue workin on smoking cessation. - Continue supplemental oxygen 4L - Keep appt with roving teller - Strongly encouraged to get COVID vaccine Assessment & Plan (04/12/2022 7:28 PM EST): - Epoxy Specialist: Ashly - Severe exacerbation 1-2 per year, none in [id number] - Most recent exacerbation in Feb 2020, required hospitalization at [facility], Rx ceftriaxone, steroid, discharged with prednisone burst. - Hospitalization in Mar 2019. Dx COPD exacerbation. Rx prednisone and doxycycline - Exacerbation in Jan 2019, hospitalized 02/05/19- 02/07/19, Dx COPD exacerbation, CAP, Tx azithromycin - [facility] hospitalization 01/11/19-01/17/19, b/l lower lobe pneumonia, L > R, treated with IV steroid, levofloxacin, and bronchodilators Tx. Discharged with prednisone, benzonatate, levofloxacin. - Continue Breo and Spiriva as maintenance. Plan to switch to Trelegy per roving teller - Continue albuterol HFA prn. - Continue DuoNeb for neb prn Tx. - Continue workin on smoking cessation. - Continue supplemental oxygen 4L - Keep appt with roving teller in October. - Strongly encouraged to get COVID vaccine Diabetes mellitus, type 2 04/12/2022 Assessment & Plan (06/16/2024 6:04 AM EDT): - A1C 7.0% today, 7.0% on 03/26/24 - in a setting of frequent steroid use for COPD exacerbation - continue working on lifestyle modifications - continue SMBG - continue metformin ER 500 mg twice daily - last eye exam: referred to [facility] - last comprehensive foot exam: [...] daily - last eye exam: referred to [facility] care - last comprehensive foot exam: [...] daily - last eye exam: referred to [facility] - last comprehensive foot exam: [...] daily - last eye exam: referred to [facility] - last comprehensive foot exam: [...] daily - last eye exam: referred to [facility] - last comprehensive foot exam: [...] daily - last eye exam: referred to [facility] care - last comprehensive foot exam: [...] daily - last eye exam: referred to [facility] - last comprehensive foot exam: [...] daily - last eye exam: referred to [facility] - last comprehensive foot exam: - last lipid profile: 12/24/22 - last microalbumin test: Ordered Assessment & Plan (11/28/2023 5:43 AM EDT): >>ASSESSMENT AND PLAN FOR DIABETES MELLITUS, TYPE 2 ([facility]) WRITTEN ON 05/31/2023 4:21 PM BY CATHLEEN MO MD - A1C 6.7% on 05/19/23, likely due to frequent steroid use recently - continue working on lifestyle modifications - start SMBG - start metformin ER 500 mg once daily - refer to [facility] - foot exam at next [...] AM EST): -Continuous supplemental oxygen 4L/m -Supplier: [employer] Assessment & Plan (03/01/2023 6:44 AM EST): -Supplier: [employer] -Pt had [id number] visit with Dr. Hart, roving teller, on 01/28/23. He recommended supplemental oxygen 4LNC at rest and 6LNC with activity based on last evaluation -Continue as recommended. Assessment & Plan (01/05/2023 5:14 PM EDT): -Continuous supplemental oxygen 4L/m -Supplier: [facility] -Contacted [facility] for oxygen delivery RAN -Pt also needs a rollator as she needs frequent rest when walking. Assessment & Plan (12/05/2022 5:52 AM EDT): -Continuous supplemental oxygen 4L/m -Supplier: [employer] -Contacted [facility] for oxygen delivery RAN Assessment & Plan (05/08/2022 5:44 PM EST): -Continuous supplemental oxygen 4L/m Erythrocytosis 01/07/2015 Assessment & Plan (05/08/2023 6:35 AM EST): - 09/24/21 Hemoglobin 19.0; Hematocrit 59.1 - likely due to hypoxia / COPD - previously referred to lap cutter, but pt missed appt Assessment & Plan (12/05/2022 5:49 AM EDT): - 09/24/21 Hemoglobin 19.0; Hematocrit 59.1 - likely due to hypoxia / COPD - previously referred to lap cutter, but pt missed appt Assessment & Plan (05/08/2022 5:50 PM EST): - 09/24/21 Hemoglobin 19.0; Hematocrit 59.1 - likely due to hypoxia / COPD - previously referred to lap cutter, but pt missed appt Assessment & Plan (04/12/2022 7:51 PM EST): - 09/24/21 Hemoglobin 19.0; Hematocrit 59.1 - likely due to hypoxia / COPD - previously referred to lap cutter, but pt missed appt 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 Hepatitis C antibody test positive 01/07/2015 Chronic liver disease 09/03/2014 Assessment & Plan (06/16/2024 6:02 AM EDT): -Likely due to Hx alcohol use disorder -Followed by [facility], last visit on 12/21/23 -Hepatitis profile: [...] to Hx alcohol use disorder -Followed by [facility], last visit on 12/21/23 -Hepatitis profile: [...] to Hx alcohol use disorder -Followed by [facility], last visit on 12/21/23 -Hepatitis profile: [...] to Hx alcohol use disorder -Followed by [facility], last visit on 12/21/23 -Hepatitis profile: [...] to Hx alcohol use disorder -Followed by [facility], last visit on 06/22/23 -Hepatitis profile: [...] to Hx alcohol use disorder -Followed by [facility], last visit on 06/22/23 -Hepatitis profile: [...] to Hx alcohol use disorder -Followed by [facility], last visit on 06/22/23 -Hepatitis profile: [...] to Hx alcohol use disorder -Followed by [facility], last visit on 06/22/23 -Hepatitis profile: [...] to Hx alcohol use disorder -Followed by [facility], last visit on 09/24/21 -Hepatitis profile: [...] to Hx alcohol use disorder -Followed by [facility], last visit on 09/24/21 -Hepatitis profile: [...] to Hx alcohol use disorder -Followed by [facility], last visit on 09/24/21 -Hepatitis profile: [...] to Hx alcohol use disorder -Followed by [facility], last visit on 09/24/21 -Hepatitis profile: [...] to Hx alcohol use disorder -Followed by [facility], last visit on 09/24/21 -Hepatitis profile: [...] to Hx alcohol use disorder -Followed by [facility], last visit on 09/24/21 -Hepatitis profile: [...] mg, but if not approved will prescribe [id number] mg daily -Follow up in 3-6 mo, sooner if any problem arises Assessment & Plan (03/01/2023 6:52 AM EST): -Goal BP < 140/90 per JNC-8 and < 130/80 per ACC/AHA guideline (Treatment threshold >= 140/90 ) -Continue working on lifestyle modifications -Continue Amlodipine 10 mg daily -Recently seen by roving teller, Dr. Hart, and was recommended to switch [...] Previous Dx: Depression; PTSD; alcohol-induced mood disorder [facility] provider: Mumtaz, psychiatrist Dr. Cruz Current medications: sertraline 125 mg daily, perphenazine 4 mg daily Previously tried medications: risperidone; hydroxyzine; prazosin pt is depression has worsened with current living condition pt was able to contract her safety today Assessment & Plan (04/02/2024 6:22 AM EST): Previous Dx: Depression; PTSD; alcohol-induced mood disorder [facility] provider: Mumtaz Current medications: sertraline, prazosin 2mg, hydroxyzine, and risperidone. pt is depression has worsened with current living condition pt was able to contract her safety today Assessment & Plan (10/04/2023 9:59 AM EDT): Previous Dx: Depression; PTSD; alcohol-induced mood disorder [facility] provider: Mumtaz Current medications: sertraline, prazosin 2mg, hydroxyzine, and risperidone. pt is depression has worsened with current living condition pt was able to contract her safety today Assessment & Plan (08/18/2023 5:43 AM EDT): Previous Dx: Depression; PTSD; alcohol-induced mood disorder [facility] provider: Mumtaz Current medications: sertraline, prazosin 2mg, hydroxyzine, and risperidone. pt is depression has worsened with current living condition pt was able to contract her safety today Assessment & Plan (05/08/2022 5:53 PM EST): Previous Dx: Depression; PTSD; alcohol-induced mood disorder [facility] provider: Mumtaz Current medications: sertraline, prazosin 2mg, hydroxyzine, and risperidone. pt is depression has worsened with current living condition pt was able to contract her safety today Assessment & Plan (04/12/2022 7:43 PM EST): Previous Dx: Depression; PTSD; alcohol-induced mood disorder [facility] provider: Mumtaz Current medications: sertraline, prazosin [...] varenicline in Nov 2023 - referred to [facility] Assessment & Plan (04/26/2024 10:32 AM EST): - restarted smoking in August 2023 - previously tried varenicline and nicotine replacement - not candidate for lung cancer screening CT due to severe COPD - continue working on smoking cessation - prescribed varenicline in Nov 2023 - referred to [facility] Assessment & Plan (04/02/2024 6:20 AM EST): - restarted smoking in August 2023 - previously tried varenicline and nicotine replacement - not candidate for lung cancer screening CT due to severe COPD - continue working on smoking cessation - prescribed varenicline in Nov 2023 - referred to [facility] Assessment & Plan (02/06/2024 5:38 AM EST): - restarted smoking in August 2023 - previously tried varenicline and nicotine replacement - not candidate for lung cancer screening CT due to severe COPD - continue working on smoking cessation - prescribed varenicline in Nov 2023 - referred to [facility] Assessment & Plan (11/29/2023 11:53 AM EDT): [...] & Plan (06/16/2024 6:02 AM EDT): - Boatswains Mate: ALLISON, last visit on 06/15/20 - Current replacement: levothyroxine 225 mcg daily - Most recent thyroid function test: 11/08/23 therapeutic range - Recheck today Assessment & Plan (04/26/2024 10:32 AM EST): - Boatswains Mate: ALLISON, last visit on 06/15/20 - Current replacement: levothyroxine 225 mcg daily - Most recent thyroid function test: 11/08/23 therapeutic range Assessment & Plan (03/26/2024 5:03 PM EST): - Boatswains Mate: [facility], last visit on 06/15/20 - Current replacement: levothyroxine 225 mcg daily - Most recent thyroid function test: 08/03/23 therapeutic range - Requested to repeat lab today. - Encouraged to improve adherence. Assessment & Plan (02/02/2024 2:28 PM EST): - Boatswains Mate: [facility], last visit on 06/15/20 - Current replacement: levothyroxine 225 mcg daily - Most recent thyroid function test: 08/03/23 therapeutic range - Requested to repeat lab today. - Encouraged to improve adherence. Assessment & Plan (11/29/2023 11:32 AM EDT): - Boatswains Mate: [facility], last visit on 06/15/20 - Current replacement: levothyroxine 225 mcg daily - Most recent thyroid function test: 08/03/23 therapeutic range - Requested to repeat lab today. - Encouraged to improve adherence. Assessment & Plan (10/11/2023 11:43 AM EDT): - Boatswains Mate: ALLISON, last visit on 06/15/20 - Current replacement: levothyroxine 225 mcg daily - Most recent thyroid function test: 08/03/23 therapeutic range - Requested to repeat lab today. - Encouraged to improve adherence. Assessment & Plan (10/02/2023 4:45 PM EDT): - Boatswains Mate: [facility], last visit on 06/15/20 - Current replacement: levothyroxine 225 mcg daily - Most recent thyroid function test: 08/03/23 therapeutic range - Requested to repeat lab today. - Encouraged to improve adherence. Assessment & Plan (12/05/2022 5:49 AM EDT): - Boatswains Mate: [facility], last visit on 06/15/20 - Current replacement: levothyroxine 200 mcg daily - Most recent thyroid function test: 09/24/21 TSH 23.42 - 08/13/20 TSH 26.67, Free T4 0.9 - 10/22/19 TSH 48.28; Free T4 0.44 - Requested to repeat lab today. - Encouraged to improve adherence. - Advised to keep appt with Boatswains Mate Assessment & Plan (04/12/2022 7:31 PM EST): - Boatswains Mate: [facility], last visit on 06/15/20 - Current replacement: levothyroxine 200 mcg daily - Most recent thyroid function test: 09/24/21 TSH 23.42 - 08/13/20 TSH 26.67, Free T4 0.9 - 10/22/19 TSH 48.28; Free T4 0.44 - Requested to repeat lab today. - Encouraged to improve adherence. - Advised to keep appt with Boatswains Mate Resolved Problems Problem Noted Date Diagnosed Date [...] & Plan (05/31/2023 4:34 PM EST): - Boatswains Mate: [facility], last visit on 06/15/20 - Current replacement: levothyroxine 225 mcg daily (recently increased from 212.5 mcg because patient had TSH 5.92 and free T4 0.6) - Most recent thyroid function test: Most recent TSH in Mar 2023 was 5.92 (patient was having acute illness) - Recheck thyroid function Assessment & Plan (05/08/2023 6:34 AM EST): - Boatswains Mate: [facility], last visit on 06/15/20 - Current replacement: levothyroxine 225 mcg daily (recently increased from 212.5 mcg because patient had TSH 5.92 and free T4 0.6) - Most recent thyroid function test: Most recent TSH in Mar 2023 was 5.92 (patient was having acute illness) - Recheck thyroid function Assessment & Plan (12/24/2022 3:43 PM EDT): - Boatswains Mate: [facility], last visit on 06/15/20 - Current replacement: levothyroxine 200 mcg daily - Most recent thyroid function test: 12/14/22 TSH 32.45, Free T4 0.57 - Encouraged to improve adherence. Assessment & Plan (12/05/2022 5:53 AM EDT): - Boatswains Mate: [facility], last visit on 06/15/20 - Current replacement: levothyroxine 200 mcg daily - Most recent thyroid function test: 09/24/21 TSH 23.42 - 08/13/20 TSH 26.67, Free T4 0.9 - 10/22/19 TSH 48.28; Free T4 0.44 - Requested to repeat lab today. - Encouraged to improve adherence. - Advised to keep appt with Boatswains Mate Assessment & Plan (05/08/2022 5:49 PM EST): - Boatswains Mate: [facility], last visit on 06/15/20 - Current replacement: levothyroxine 200 mcg daily - Most recent thyroid function test: 09/24/21 TSH 23.42 - 08/13/20 TSH 26.67, Free T4 0.9 - 10/22/19 TSH 48.28; Free T4 0.44 - Requested to repeat lab today. - Encouraged to improve adherence. - Advised to keep appt with Boatswains Mate Assessment & Plan (04/12/2022 7:32 PM EST): - Boatswains Mate: [facility], last visit on 06/15/20 - Current replacement: levothyroxine 200 mcg daily - Most recent thyroid function test: 09/24/21 TSH 23.42 - 08/13/20 TSH 26.67, Free T4 0.9 - 10/22/19 TSH 48.28; Free T4 0.44 - Requested to repeat lab today. - Encouraged to improve adherence. - Advised to keep appt with Boatswains Mate Cirrhosis, alcoholic 01/07/2015 024 Assessment & Plan (05/31/2023 4:21 PM EST): -Followed by [facility], last visit on 09/24/21 -Hepatitis profile: [...] Plan (04/12/2022 7:38 PM EST): -Followed by [facility], last visit on 09/24/21 -Hepatitis profile: [...] & Plan (12/24/2022 3:41 PM EDT): - Epoxy Specialist: Ashly, last seen on 04/15/22 - Severe exacerbation 1-2 per year, none in [id number] - Most recent exacerbation today, 12/22/22. - Last hospitalization Feb 2020. [facility]. Rx ceftriaxone, steroid, discharged with prednisone burst. - Hospitalization in Mar 2019. Dx COPD exacerbation. Rx prednisone and doxycycline - Exacerbation in Jan 2019, hospitalized 02/05/19- 02/07/19, Dx COPD exacerbation, CAP, Tx azithromycin - [facility] hospitalization 01/11/19-01/17/19, b/l lower lobe pneumonia, L > R, treated with IV steroid, levofloxacin, and bronchodilators Tx. Discharged with prednisone, benzonatate, levofloxacin. - Continue Symbicort and Incruse as maintenance. Plan to switch to Trelegy per roving teller - Continue albuterol HFA prn. - Continue DuoNeb for neb prn Tx. - Continue workin on smoking cessation. - Continue supplemental oxygen 4L - Keep appt with roving teller - Strongly encouraged to get COVID vaccine Assessment & Plan (12/05/2022 5:51 AM EDT): - Epoxy Specialist: Ashly, last seen on 04/15/22 - Severe exacerbation 1-2 per year, none in [id number] - Most recent exacerbation in Feb 2020, required hospitalization at [facility], Rx ceftriaxone, steroid, discharged with prednisone burst. - Hospitalization in Mar 2019. Dx COPD exacerbation. Rx prednisone and doxycycline - Exacerbation in Jan 2019, hospitalized 02/05/19- 02/07/19, Dx COPD exacerbation, CAP, Tx azithromycin - [facility] hospitalization 01/11/19-01/17/19, b/l lower lobe pneumonia, L > R, treated with IV steroid, levofloxacin, and bronchodilators Tx. Discharged with prednisone, benzonatate, levofloxacin. - Continue Symbicort and Incruse as maintenance. Plan to switch to Trelegy per roving teller - Continue albuterol HFA prn. - Continue DuoNeb for neb prn Tx. - Continue workin on smoking cessation. - Continue supplemental oxygen 4L - Keep appt with roving teller - Strongly encouraged to get COVID vaccine Assessment & Plan (05/08/2022 5:47 PM EST): - Epoxy Specialist: Ashly, last seen on 04/15/22 - Severe exacerbation 1-2 per year, none in [id number] - Most recent exacerbation in Feb 2020, required hospitalization at [facility], Rx ceftriaxone, steroid, discharged with prednisone burst. - Hospitalization in Mar 2019. Dx COPD exacerbation. Rx prednisone and doxycycline - Exacerbation in Jan 2019, hospitalized 02/05/19- 02/07/19, Dx COPD exacerbation, CAP, Tx azithromycin - [facility] hospitalization 01/11/19-01/17/19, b/l lower lobe pneumonia, L > R, treated with IV steroid, levofloxacin, and bronchodilators Tx. Discharged with prednisone, benzonatate, levofloxacin. - Continue Symbicort and Incruse as maintenance. Plan to switch to Trelegy per roving teller - Continue albuterol HFA prn. - Continue DuoNeb for neb prn Tx. - Continue workin on smoking cessation. - Continue supplemental oxygen 4L - Keep appt with roving teller - Strongly encouraged to get COVID vaccine Encounters Date Type Department Care Team Description 08/09/2024 Population [facility] Risk Score [facility] () Department [address] [id number] Provider, Population Health Generic 08/08/2024 Patient Outreach [facility] [address] [place] [phone] Cathleen Mo MD Care Coordination (Appt reminder/pt1) 07/31/[address] [address] Cathleen Mo MD Care Management (C3- f/u call) 07/31/[address] [address] Cathleen Mo MD 07/26/2024 3:00 PM EDT Office Visit [facility] [address] [place] [phone] COPD with acute exacerbation (CMS/HCC) (Primary Dx) 07/26/2024 Telephone [facility] [address] [place] [phone] Laura Shirley DO Follow-up 07/26/2024 Telephone [facility] [address] [place] [phone] Laura Shirley DO Nurse Triage 07/26/2024 Travel 07/23/2024 Orders Only [facility] [address] [place] [phone] Cathleen Mo MD Metabolic dysfunction-associate d steatotic liver disease (MASLD) (Primary Dx); Type 2 diabetes mellitus without complication, without long-term current use of insulin (CMS/HCC) 07/19/[address] [address] Cathleen Mo MD Care Management (C3- f/u call) 07/11/2024 Patient Outreach [address] [address] Cathleen Mo MD Care Coordination (Appt reminder) 07/10/2024 Telephone [facility] [address] [address] Bert Banegas MD oygen return 07/09/[address] [address] Cathleen Mo MD Care Management (C3CM- f/u call) 07/09/2024 Patient Outreach [address] [address] Cathleen Mo MD Care Coordination (PT1) 07/04/2024 3:20 PM EDT Office Visit [facility] [address] [address] Bert Banegas MD COPD exacerbation (CMS/HCC) (Primary Dx); Chronic respiratory failure with hypoxia and hypercapnia (CMS/HCC) 07/04/2024 Refill [facility] [address] [place] [address] Cathleen Mo MD 07/03/2024 Patient Outreach [address] [address] Cathleen Mo MD Care Coordination (Appt reminder) 07/02/[address] [address] Elba Jiang, RN 07/02/2024 Patient Outreach [address] [address] Cathleen Mo MD Care Coordination (triage) 07/02/[address] [address] Cathleen Mo MD Other specified hypothyroidism 07/01/2024 Refill [facility] [address] [place] [address] Cathleen Mo MD 06/29/2024 Patient Outreach [address] [address] Cathleen Mo MD Care Coordination (Appt reminder) 06/29/[address] [address] Cathleen Mo MD Care Management (C3CM- f/u call lvm) 06/20/2024 Orders Only [address] [place] [address] Cathleen Mo MD Parotid mass (Primary Dx); Sensorineural hearing loss (SNHL) of both ears 06/20/[address] [address] Cathleen Mo MD 06/18/[address] [address] Cathleen Mo MD Care Management (C3CM- f/u call) 06/18/2024 Patient Outreach [address] [address] Cathleen Mo MD Care Coordination (PT1) 06/12/2024 1:15 PM EDT Office Visit [facility] [place] [place] [address] Cathleen Mo MD Chronic obstructive pulmonary disease, [...] sciatica present; Skin lesions 06/12/2024 Orders Only [facility] [place] [address] Cathleen Mo MD 06/12/2024 Travel 06/11/2024 Patient Outreach [address] [address] Cathleen Mo MD Care Coordination (Appt reminder) 06/07/[address] [address] Cathleen Mo MD chart prep 06/06/[address] [address] Cathleen Mo MD Care Management (C3CM- f/u call #2 lvm) 06/01/[address] [address] Cathleen Mo MD Care Management (C3CM- f/u call lvm) 05/28/2024 Patient Outreach [address] [address] Cathleen Mo MD Care Coordination (PT1) 05/28/[address] [address] Cathleen Mo MD 05/28/[address] [address] Cathleen Mo MD [facility] [place] (Glove, exam vnyl lg) 05/24/[address] [address] Cathleen Mo MD 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 05/21/2024 Patient Outreach [address] [address] Cathleen Mo MD Care Coordination (PT1) 05/21/[address] [address] Cathleen Mo MD Care Management (C3- initial assessment/ enrollment) 05/18/2024 Patient Outreach [address] [address] Cathleen Mo MD Care Coordination (PT1) 05/18/2024 Patient Outreach [address] [phone] Cathleen Mo MD Care Coordination (CM/CHW appt reminder) 05/17/2024 Telephone [facility] [address] [place] [address] Marie Monroe MA from Last 3 Months Immunizations Immunization Administration Dates Next Due Hep A / [...] Date Smoking Tobacco: Some Days Cigarettes 1.9 36.4 Started: 1988 Passive Smoke Exposure: Current Smokeless [...] 1:45 PM EDT Office Visit [facility] [address] [place] [address], [place] [address] Silvia Cameron, OD [address] [place] [address] 09/04/2024 1:00 PM EDT Office Visit [facility] [address] [place] [address] Cathleen Mo MD [address] [place], [place] [phone] Health Maintenance Due Date Last Done Comments [...] Screening 11/07/2024 11/08/2023 Diabetes: Hemoglobin A1C 12/13/2024 03/ 025, 03/26/2024, 12/21/2023, Additional history exists Alcohol/Substance Use Screening 02/01/2025 02/02/2024 Pap Smear 04/29/2025 04/29/2022, 02/07/2019 Lipid Panel 06/12/2025 06/12/2024, 08/1 05/2023, 12/14/2022, Additional history exists Tobacco Screening 07/04/2025 [...] this topic Lung Cancer Screening Discontinued Meningococcal B Vaccine Aged Out No l onger eligible based on patient's age to complete this topic Meningococcal Vaccine Aged Out No roxanne lj [...] PM EDT Narrative 07/26/2024 3:42 PM EDT ?[facility] ?[address] ?[place] [address] ?XRay Report ? Signed ? Patient: RuizSandra Green ?MR# ?? : [id number] ? : 1965 ?Acct:[id number] ? Age/Sex: 58 / F ?ADM Date: 07/26/24 ? Loc: HO.HHCX ? Attending Dr: Laura Shirley DO ? Ordering Physician: Laura Shirley DO ?? Date of Service: 07/26/24 ?? Procedure(s): XR chest 2V ?? Accession Number(s): [id number] ? cc: Laura Shirley DO ? EXAMINATION: [...] MD in OV> ?07/26/24 1539 ? DD/ 16 ? TD/TT: 07/26/24 1530 ? Epic Analyst: ? Procedure Note [place], Image - 07/26/[address] [address] XRay Report Signed Patient: Sandra Rose DMR# : [id number] : 1965Acct:[id number] Age/Sex: 58 / FADM Date: 07/26/24 Loc: HO.HHCX Attending Dr: Laura Shirley DO Ordering Physician: Laura Shirley DO Date of Service: 07/26/24 Procedure(s): XR chest 2V Accession Number(s): [id number] cc: Laura Shirley DO EXAMINATION: XR CHEST [...] 07/26/24 1539 DD/ 1517 TD/TT: 07/26/24 1530 Epic Analyst: us Laura Shirley DO IMG XR PROCEDURES Final Resu lt * Referral to Audiology (07/12/2024) us Cathleen Mo MD OUTPATIENT REFERRAL ORDERABLES F inal Result * (ABNORMAL) CBC auto differential (06/12/2024 2:40 PM EDT) White Blood Count 6.2 4.8 - 10.8 X10*3/uL [facility] Red Blood Count 5.40 4.20 - 5.50 X10*6/uL [facility] Hemoglobin 15.0 12.0 - 16.0 g/dl [facility] Hematocrit 48.2(H) 37.0 - 47.0 % [facility] Mean Corpuscular Volume 89.3 80.0 - 98.0 fL [facility] Mean Corpuscular Hemoglobin 27.8 27.0 - 33.0 pg [facility] Mean Corpuscular HGB Conc 31.1 31.0 - 35.0 g/dl [facility] Red Cell Distribution Width 14.4 11.0 - 16.0 % [facility] Platelet Count 161 160 - 400 X10*3/uL [facility] Mean Platelet Volume 11.6 9.4 - 12.3 fL [facility] Neutrophils Percent Auto 82.4(H) 45 - 73 % [facility] Imm Gran Pct Auto 0.2 0.0 - 0.4 % [facility] Lymphocytes Percent Auto 15.6(L) 20 - 40 % [facility] Monocytes Percent Auto 1.1(L) 2 - 11 % [facility] Eosinophils Percent Auto 0.2 0 - 4 % [facility] Basophils Percent Auto 0.5 0 - 2 % [facility] NRBC Pct Auto 0.0 0.0 - 0.2 /100WBC [facility] Neutrophils Absolute Auto 5.1 2.0 - 8.3 x10*3/uL [facility] Imm Gran Abs Auto 0.01 0.00 - 0.03 X10*3/uL [facility] Lymphocytes Absolute Auto 1.0(L) 1.2 - 4.9 X10*3/uL [facility] Monocytes Absolute Auto 0.1 0.1 - 1.2 X10*3/uL [facility] Eosinophils Absolute Auto 0.0 0.0 - 0.4 X10*3/uL [facility] Basophils Absolute Auto 0.0 0.0 - 0.2 X10*3/uL [facility] NRBC Abs Auto 0.000 0.0 - 0.012 X10*3/uL [facility] Blood Venous blood specimen / Unknown 06/12/2024 2:40 PM EDT 06/12/2024 4:48 PM EDT Cathleen Mo MD LAB BLOOD ORDERABLES Final Resul t Performing Organization Address City/[facility]/ZIP Co de Phone Number [facility] [address] [place] [phone] * (ABNORMAL) TSH with Reflex to Free T4 (06/12/2024 2:10 PM EDT) TSH reflex Free T4 0.22(L) 0.32 - 4.0 uIU/mL [facility] Blood 06/12/2024 2:10 PM EDT 06/12/2024 4:45 PM EDT Cathleen Mo MD LAB BLOOD ORDERABLES Final Resul t Performing Organization Address City/[facility] Co de Phone Number [facility] [address] [place] [phone] * (ABNORMAL) Lipid Panel with Reflex to Direct LDL (06/12/2024 2:10 PM EDT) Triglycerides 269(H) <150 mg/dL [facility] Comment:Desirable Triglyceri de: less than 150 mg/dLBorderline High Triglyceride 150-199 mg/dLHigh Triglyceride: 200-499 mg/dLVery High Triglyceride: greater than or equal to 5OO mg/dL Cholesterol 282(H) <200 mg/dL [facility] Comment:Desirable Cholestero l: less than 200 mg/dLBorderline High Cholesterol: 200-239 mg/dLHigh Cholesterol: greater than 239 mg/dL LDL Cholesterol Calculated 182(H) <100 mg/dL [facility] Comment:Desirable LDL: less than 100 [...] ORDERABLES Final Resul t Performing Organization Address City/[facility] Co de Phone Number [facility] [address] [place] [phone] * Sed Rate by Modified Westergren (06/12/2024 2:10 PM EDT) Erythrocyte Sedimentation Rate 12 0 - 20 MM/HR [facility] Comment:Patients with polycy themia and many hemoglobin abnormalitiesmay have depressed sed rates whereas patients with anemiamay have elevated sed rates. Blood Venous blood specimen / Unknown 06/12/2024 2:10 PM EDT 06/12/2024 4:45 PM EDT us Cathleen Mo MD LAB BLOOD ORDERABLES Final Resul t [facility] [address] [place] [phone] * C-reactive Protein (06/12/2024 2:10 PM EDT) C Reactive Protein 0.13 < or = 0.50 mg/dL [facility] Blood Venous blood specimen / Unknown 06/12/2024 2:10 PM EDT 06/12/2024 4:45 PM EDT us Cathleen Mo MD LAB BLOOD ORDERABLES Final Resul t Performing Organization Address [facility] de Phone Number [facility] [address] [place] [address] [phone] * Uric acid (06/12/2024 2:10 PM EDT) Uric Acid 4.4 2.4 - 5.7 mg/dL [facility] Blood Venous blood specimen / Unknown 06/12/2024 2:10 PM EDT 06/12/2024 4:45 PM EDT us Cathleen Mo MD LAB BLOOD ORDERABLES Final Resul t Performing Organization Address [facility] de Phone Number [facility] [address] [place] [phone] * T4, Free (06/12/2024 2:10 PM EDT) Free T4 (Free Thyroxine) 1.13 0.71 - 1.85 ng/dL [facility] 06/12/2024 2:10 PM EDT 06/12/2024 4:45 PM EDT Cathleen Mo MD LAB BLOOD ORDERABLES Final Resul t Performing Organization Address [facility] Co de Phone Number [facility] [address] [place] [address] [phone] * (ABNORMAL) Comprehensive Metabolic Panel (06/12/2024 2:10 PM EDT) Sodium 142 135 - 145 mmol/L [facility] Potassium 4.2 3.3 - 5.1 mmol/L [facility] Chloride 98 96 - 108 mmol/L [facility] Carbon Dioxide 33(H) 22 - 29 mmol/L [facility] Anion Gap 15 12 - 20 [facility] Urea Nitrogen (BUN) 15 9 - 16 mg/dL [facility] Creatinine, Serum 0.67 0.5 - 1.4 mg/dL [facility] Estimated Glomerular Filt Rate >60 [facility] Comment:Chronic Kidney Disea se: Estimated GFR < 60 mL/min/1.98t2Ptfnex Kidney Disease: Estimated GFR < 15 mL/min/1.73m2 Glucose 181(H) 60 - 115 mg/dL [facility] Calcium 9.7 8.4 - 10.2 mg/dL [facility] Bilirubin, Total 0.5 0.0 - 1.0 mg/dL [facility] Aspartate Amino Transferase 30 5 - 31 U/L [facility] Alanine Aminotransferase 31 0 - 31 U/L [facility] Total Protein 8.3(H) 6.5 - 8.0 g/dL [facility] Albumin Level 4.3 3.5 - 5.0 g/dL [facility] Alkaline Phosphatase 95 39 - 117 U/L [facility] Blood Venous blood specimen / Unknown 06/12/2024 2:10 PM EDT 06/12/2024 4:45 PM EDT Cathleen Mo MD LAB BLOOD ORDERABLES Final Resul t [facility] [address] [place] [phone] * (ABNORMAL) POCT glycosylated hemoglobin (Hgb [...] Media Lot # [id number] Lot# Expiration Date [id number] Blood Capillary blood specimen / Unknown 06/12/2024 9:38 AM EDT Cathleen Mo MD POINT OF CARE TEST ENTER/EDIT OR DERABLES Final Result * Referral to Pulmonology (06/07/2024) us Steph PALOMINO OUTPATIENT REFERRAL ORDERABLES F inal Result * Cologuard?? colon cancer screening (03/26/2024 11:10 AM EST) Cologuard Result Negative Negative 03/30/19 25 5:10 PM EST [facility] (CLIA #:[id number]) Comment: NEGATIVE TEST RESULT. A negative Cologuard [...] cancer. ??Following a negative Cologuard result, the [place] [employer] Society and U.S. Multi-Society Task Force screening guidelines recommend a Cologuard re-screening interval of 3 years. References: [place] [employer] Guideline for Colorectal Cancer Screening: https://www.cancer.org/cancer/twnnc-girpyh-zomvfv/vgxsekfir-hmcbmulyi-sjcpmme/ac s-rec ommendations.html.; Holland DK, Ivis CR, Stalin LarkinK, Colorectal Cancer Screening: Recommendations for Physicians and Patients from the U.S. Multi-Society Task Force on Colorectal Cancer Screening , Am J Gastroenterology 2017; 112:4825-8311. TEST DESCRIPTION: Composite algorithmic analysis of stool [...] (Martha North al, N Engl J Med 2014;370(14):9323-2504.) Cologuard may produce a false negative or false positive result (no colorectal cancer or precancerous polyp present at colonoscopy follow up). A negative Cologuard test result does not guarantee the absence of CRC or advanced adenoma (pre-cancer). The current Cologuard screening interval is every 3 years. ([place] [employer] and U.S. Multi-Society Task Force). Cologuard performance data in a 10,000 patient pivotal study using colonoscopy as the reference method can be accessed at the following location: www.Padinmotion.Enteye/results. Additional description of the Cologuard test process, warnings and precautions can be found at www.Eburyrd.com. Stool specimen (specimen) 03/26/2024 11:10 AM EST 03/27/2024 11:53 AM EST Cathleen Mo MD LAB MOLECULAR DIAGNOSTICS ORDERA BLES Final Result Performing Organization Address [facility] Co de Phone Number [facility] (CLIA #:[id number]) [place] [address], * Albumin, Random Urine W/Creatinine (11/08/2023 1:45 PM EDT) Creatinine, Urine 67.59 mg/dL [facility] Microalbumin Urine <5.0 mg/L [facility] Microalbum Creatinine Ratio Ur TNP <30 ug/mg cr [facility] Comment:Unable to calculate albumin/creatinine ratio due to lowmicroalbumin or creatinine result. Urine 11/08/2023 1:45 PM EDT 11/08/2023 3:56 PM EDT Cathleen Mo MD LAB URINE ORDERABLES Final Resul t Performing Organization Address [facility] de Phone Number [facility] [address] [place], [place] [phone] * BI Mammogram Screening Tomosynthesis Bilateral (07/13/2023 11:10 AM EDT) Anatomical Region Laterality Modality Breast Bilateral Mammography 07/13/2023 11:1 0 AM EDT Narrative 07/18/2023 3:46 PM EDT ? [facility] [place] ? [address] ?[place] [address] ? Mammography Report ? Signed ? Patient: Joseph Mazariegos,Sandra Ambrose ?MR# ?? : [id number] ? : 1965 ?Acct:[id number] ? Age/Sex: 57 / F ?ADM Date: 04/17/24 ? Loc: HO.MAMMO ? Attending Dr: Cathleen Mo MD ? Ordering Physician: Cathleen Mo MD ?Results: 1Negative ? Date of Service: 07/13/23 ?Follow Up: 1 Year From Orig ?? inal Mammogram ? Procedure(s): MM tomosynthesis screening BI ?? Accession Number(s): [id number] ? cc: Cathleen Mo MD ? EXAMINATION: [...] 1543 ? DD/ 1110 ? TD/TT: ? Epic Analyst: ? Procedure Note Donotuseinterpreter, Image - 07/18/2023 [place] [facility] [address] [place] [address] Mammography Report Signed Patient: Sandra Rose DMR# : [id number] : 1965Acct:[id number] Age/Sex: 57 / FADM Date: 07/13/23 Loc: [place] Attending Dr: Cathleen Mo MD Ordering Physician: Cathleen Moesults: 1Negative Date of Service: 07/13/23Follow Up: 1 Year From Orig inal Mammogram Procedure(s): MM tomosynthesis screening BI Accession Number(s): [id number] cc: Cathleen Mo MD EXAMINATION: MM SCREENING [...] in OV> 07/18/23 1543 DD/ 1110 TD/TT: Epic Analyst: Cathleen Mo MD IMG BI PROCEDURES Final Result * HIV-1/2 Antigen and Antibodies, Fourth Generation, with Reflexes (05/12/2023 11:06 AM EST) HIV AB/AG Nonreactive Nonreactive [facility] Comment:HIV-1 p24 Ag and/or HIV-1/HIV-2 Ab not detected.A test result that is nonreactive does not exclude thepossibility of exposure to or infection with HIV-1 and/orHIV-2. Nonreactive results in this assay for individualswith prior exposure to HIV-1 and/or HIV-2 may be due toantigen and antibody levels that are below the limit ofdetection of this assay.The Omnireliant HIV Ag/Ab Combo assay result andsupplemental assay results should be interpreted inconjunction with the patient's clinical presentation,history and other laboratory results. If the results areinconsistent with clinical evidence, additional testing issuggested to confirm the result. Blood Venous blood specimen / Unknown 05/12/2023 11:06 AM EST 05/12/2023 1:03 PM EST Cathleen Mo MD LAB BLOOD ORDERABLES Final Resul t [facility] [address] [place] [address] [phone] * Thinprep TIS PAP And HPV mRNA E6/E7 With Reflex To HPV 16,18/45 (04/29/2022 11:38 AM EST) Clinical Information: ROUTINE PAP [facility]etag-[facility] LMP: NONE GIVEN [facility] Prev. PAP: NONE GIVEN [facility] Prev. BX: NONE GIVEN [facility] [employer] SOURCE: None given [facility] [employer] Statement Of Adequacy: [facility] Comment: Satisfactory for evaluation. Endocervical/transformation zone component present. Interpretation/ Result: Negative for intraepithelial lesion or malignancy. [facility] [place] [facility] COMMENT: This Pap test has been evaluated with computer assisted technology. [facility] [place] [facility] Cytotechnologis t: [facility] [place] [facility] Comment: SXA, CT(ASCP) CT screening location: [address] ??[phone] Review Cytotechnologis t: [facility] [place] [facility] Comment: JNA, CT(ASCP) CT screening location: [address] ??[address] (Always Message) [facility] [place] [facility] Comment: EXPLANATORY NOTE: The Pap is a [...] HPV nRNA E6/E7 Not Detected Not Detected [facility] [place] [facility] Comment: Methodology: Fur Blowing Machine Operator-Mediated Amplification This assay detects E6/E7 viral messenger RNA (mRNA) from 14 high-risk HPV types (16,18,31,33,35,39,45,51,52,56,58,59,66,68). Cervical sources are required for HPV testing. If a vaginal source from a patient who has had a total hysterectomy with removal of cervix was submitted, please contact the testing laboratory for alternative testing options. For additional information, please refer to http://education.Yottaa/faq/QEU163n4 (This link if provided for information/ educational purposes only.) 04/29/2022 11:3 8 AM EST 04/30/2022 9:58 AM EST Narrative [facility] - 05/05/2022 2:36 PM EST FASTING: UNKNOWN us Cathleen Mo MD LAB PATHOLOGY ORDERABLES Final R esult [facility] [address] [place] [address], [facility], [place] [address] [facility] [place] [facility] [address] [facility], ([address]) [place] [address] from Last 3 Months or Most Recently Relevant to Health Maintenance Insurance [employer] C3 Care Teams Weaver Wire Loom Relationship Specialty Start Date End Date Cathleen Mo MD [address] [place] [address] PCP - General Family Medicine 03/28/18 Tad Baez, Sanjiv [address] [place], [place] [phone] Pharmacist Internal Medicine 03/16/24 Bhumi Monroe, BRIANNA [address] [place] [address] Side StitcherFiscal Accounting Clerk 05/21/24 [facility] 05/04/17
--- OUTSIDE RECORDS SUMMARY | 2024-08-09 13:04 | XMS_ITS | Encounter Summary ---
Author Organization [employer] Address [address] [facility] 7t [place] [address] Care Team Providers Care Rolling Machine Operator Automatic Name Role Phone Cathleen Sears MD Primary Care Provider [phone] Tad Baez PharmD Unavailable [phone] Bhumi Monroe RN Unavailable [phone] Reason for Referral * Imaging (Routine) - Closed Specialty Diagnoses / Procedures Referred By Sina nicolas Referred To Contact Radiology Diagnoses Zayra's thyroiditis Preauricular mass Parotid mass Procedures CT Soft Tissue Neck w/ Contrast Cathleen Sears MD [address] [place] [address] Phone: tel: fax: [address] Phone: tel: fax: Referral ID Status Reason Start Date Expiration Date Visits Re quested Visits Authorized [id number] Closed 02/07/2024 02/06/2025 1 1 Encounter Details Date Type Department Care Team (Late st Contact Info) Description 02/04/2024 Orders Only [facility] [address] [place], [place] [phone] Cathleen Sears MD [address] [place], [place] [phone] Zayra's thyroiditis (Primary Dx); Preauricular mass; Parotid [...] is your housing situation today? I have farhadmelania shelby 01/10/[address] you [...] the past 12 months, has t he [employer], gas, oil or water company threatened to [...] Description 08/16/2024 1:45 PM EDT Office Visit [facility] [address] [place] [address] Silvia Cameron, OD [address] [place] [address] 09/04/2024 1:00 PM EDT Office Visit [facility] [address] [place] [address] Cathleen Sears MD [address] [place] [address] Scheduled Orders Name Type Priority Associated Diagnoses [...] documented as of this encounter Care Teams Rolling Machine Operator Automatic Relationship Specialty Start Date End Date Cathleen Sears MD [address] [place] [address] PCP - General Family Medicine 03/28/18 Tad Baez, LaurenD [address] [place] [phone] Pharmacist Internal Medicine 03/16/24 Bhumi Monroe, BRIANNA [address] [place] [phone] Laboratory TesterAttacher 05/21/24 [facility] 05/04/17 documented as of this encounter
--- OUTSIDE RECORDS SUMMARY | 2024-08-09 13:04 | XMS_ITS | Encounter Summary ---
Author Organization [employer] Address [address] [facility] [address] [facility] [address] [place] [address] Care Team Providers Care Multimedia Instructional Designer Name Role Phone Cathleen Sears MD Primary Care Provider [phone] Ivett Smith RN Unavailable [phone] Tad Baez PharmD Unavailable [phone] Bhumi Monroe RN Unavailable [phone] Encounter Details Date Type Department Care Team (Late st Contact Info) Description 09/08/2023 Telephone [facility] [address] [place], [place] [phone] Cathleen Sears MD [address] [place], [place] [phone] Social History Tobacco Use Types Packs/Day Years [...] Description 08/16/2024 1:45 PM EDT Office Visit [facility] [address] [place] [address] Tarka, Silvia, OD [address] [place] [address] 09/04/2024 1:00 PM EDT Office Visit [facility] [address] [place] [address] Cathleen Sears MD [address] [place], [place] [phone] documented as of this encounter Visit Diagnoses Not on filedocumented in this encounter Additional Health Concerns Assessment Noted Time PHQ-9 Depression Total Score: 2 07/22/19 24 10:34 AM EDT documented as of this encounter Care Teams Multimedia Instructional Designer Relationship Specialty Start Date End Date Cathleen Sears MD [address] [place] [phone] PCP - General Family Medicine 03/28/18 Ivett Smith RN [address] [place] [phone] Registered Nurse Case Management 12/30/22 01/24/24 Tad Baez, LaurenD [address] [place] [phone] Pharmacist Internal Medicine 03/16/24 Bhumi Monroe RN [address] [place] [address] Integrity AssessorSpud Driller 05/21/24 [facility] 05/04/17 documented as of this encounter
--- OUTSIDE RECORDS SUMMARY | 2024-08-09 13:04 | XMS_ITS | Encounter Summary ---
Author Organization [employer] Address [address] [facility] 7t [place] [address] Care Team Providers Care Librarian Helper Name Role Phone Cathleen Sears MD Primary Care Provider [phone] Tad Baez PharmD Unavailable [phone] Bhumi Monroe RN Unavailable [phone] Reason for Referral * Consultation (Routine) - Closed Specialty Diagnoses / Procedures Referred By Sina nicolas Referred To Contact Otolaryngology Diagnoses Parotid mass Sensorineural hearing loss (SNHL) of both ears Cathleen Sears MD [address] [place] [address] Phone: tel: fax: Referral ID Status Reason Start Date Expiration Date V isits Requested Visits Authorized [id number] Closed Specialty Services Required 06/20/2024 06/20/2025 1 1 Encounter Details Date Type Department Care Team (Late st Contact Info) Description 06/20/2024 Orders Only [facility] [address] [place], [place] [phone] Cathleen Sears MD [address] [place], [place] [phone] Parotid mass (Primary Dx); Sensorineural hearing loss [...] 08/16/2024 1:45 PM EDT Office Visit [facility] [address] [place] [address] Anu Cameronica, OD [address] [place] [address] 09/04/2024 1:00 PM EDT Office Visit [facility] [address] [place] [address] Cathleen Sears MD [address] [place] [address] Scheduled Referrals Name Type Priority Associated Diagnoses [...] documented as of this encounter Care Teams Librarian Helper Relationship Specialty Start Date End Date Cathleen Sears MD [address] [place] [address] PCP - General Family Medicine 03/28/18 Tad Baez PharmD [address] [place] [address] Pharmacist Internal Medicine 03/16/24 Bhumi Monroe, BRIANNA [address] [place] [phone] Ammonia Box OperatorOre Washer 05/21/24 [facility] 05/04/17 documented as of this encounter
--- OUTSIDE RECORDS SUMMARY | 2024-08-09 13:04 | XMS_ITS | Encounter Summary ---
Author Organization [employer] Address [address] 7t [place] [address] Care Team Providers Care Airborne Operations Manager Name Role Phone Cathleen Sears MD Primary Care Provider [phone] Ivett Smith RN Unavailable [phone] Tad Baez PharmD Unavailable [phone] Bhumi Monroe RN Unavailable [phone] Encounter Details Date Type Department Care Team (Late st Contact Info) Description 07/27/2023 Orders Only [facility] MEDICINE [address] [place], [place] [phone] Cathleen Sears MD [address] [place], [place] [phone] Hypertension associated with diabetes (CMS/HCC) (CMS/HCC) (Primary [...] Description 08/16/2024 1:45 PM EDT Office Visit [facility] OPTOMETRY [address] [place], [place] [phone] Silvia Cameron, OD [address] [place] [address] 09/04/2024 1:00 PM EDT Office Visit [facility] MEDICINE [address] [place], [place] [phone] Cathleen Sears MD [address] [place] [address] documented as of this encounter Procedures Procedure Name Priority Date/Time Associated Diagnosis Comments TSH W/REFLEX TO FT4 Routine 08/03/2023 1 :18 PM EDT Leg swelling BASIC METABOLIC PANEL Routine 08/03/2023 1:18 PM EDT Leg swelling documented in this encounter Results * TSH with Reflex to Free T4 (08/03/2023 1:18 PM EDT) TSH reflex Free T4 0.57 0.32 - 4.0 uIU/mL [facility] Blood 08/03/2023 1:18 PM EDT 08/03/2023 4:15 PM EDT Cathleen Sears MD LAB BLOOD ORDERABLES Final Resul t Performing Organization Address [facility] Co de Phone Number [facility] [address] [place] [address] [phone] * (ABNORMAL) Basic Metabolic Panel (08/03/2023 1:18 PM EDT) Sodium 142 135 - 145 mmol/L [facility] Potassium 3.4 3.3 - 5.1 mmol/L [facility] Chloride 93(L) 96 - 108 mmol/L [facility] Carbon Dioxide 36(H) 22 - 29 mmol/L [facility] Anion Gap 16 12 - 20 [facility] Urea Nitrogen (BUN) 11 9 - 16 mg/dL [facility] Creatinine, Serum 0.62 0.5 - 1.4 mg/dL [facility] Estimated Glomerular Filt Rate >60 [facility] Comment:NOTE: For -Am erican individuals, multiply the result by 1.210.Chronic Kidney Disease: Estimated GFR < 60 mL/min/1.30j1Tbeyhl Kidney Disease: Estimated GFR < 15 mL/min/1.73m2 Glucose 130(H) 60 - 115 mg/dL [facility] Calcium 10.4(H) 8.4 - 10.2 mg/dL [facility] Blood Venous blood specimen / Unknown 08/03/2023 1:18 PM EDT 08/03/2023 4:15 PM EDT Cathleen Sears MD LAB BLOOD ORDERABLES Final Resul t Performing Organization Address [facility]/ZIP Co de Phone Number [facility] [address] [place] [phone] documented in this encounter Visit Diagnoses Diagnosis Hypertension associated with diabetes ([facility])- Primary Unspecified essential hypertension Leg swelling Swelling of limb documented in this encounter Additional Health Concerns Assessment Noted Time PHQ-9 Depression Total Score: 2 07/22/19 24 10:34 AM EDT documented as of this encounter Care Teams Airborne Operations Manager Relationship Specialty Start Date End Date Cathleen Sears MD [address] [place] [address] PCP - General Family Medicine 03/28/18 Ivett Smith, BRIANNA [address] [place] [address] Registered Nurse Case Management 12/30/22 01/24/24 Tad Baez, Sanjiv [address] [place] [address] Pharmacist Internal Medicine 03/16/24 Bhumi Monroe RN [address] [place] [address] Welder Machine OperatorChief Librarian Branch Or Department 05/21/24 [facility] 05/04/17 documented as of this encounter
--- OUTSIDE RECORDS SUMMARY | 2024-08-09 13:04 | XMS_ITS | Encounter Summary ---
Author Organization [employer] Address [address] [facility] 7t [place] [address] Care Team Providers Care Ems Instructor Name Role Phone Cathleen Sears MD Primary Care Provider Ivett Smith RN Unavailable [phone] Tad Baez PharmD Unavailable [phone] Bhumi Monroe RN Unavailable [phone] Encounter Details Date Type Department Care Team ([facility] Contact Info) Description 04/12/2022 Abstract [facility] MEDICINE [address] [place], [place] [phone] Cathleen Sears MD [address] [place], [place] [phone] Social History Tobacco Use Types Packs/Day Years [...] Upcoming Encounters Date Type Department Care Team ([facility] Contact Info) Description 08/16/2024 1:45 PM EDT Office Visit [facility] OPTOMETRY [address] [place], [place] [phone] Silvia Cameron, OD [address] [place] [address] 09/04/2024 1:00 PM EDT Office Visit [facility] MEDICINE [address] [place] [address] Cathleen Sears MD [address] [place] [address] documented as of this encounter Procedures Procedure Name Priority Date/Time Associated Diagnosis Comments THINPREP PAP AND HPV DNA REFLEX GENOTYPES 16,18 Routine 02/07/2019 12:00 AM EST documented in this encounter Results * Thinprepr PAP And HPV DNA Reflex Genotypes 16,18 (02/07/2019 12:00 AM EST) us Historical Provider LAB PATHOLOGY ORDERABLES Final Result Performing Organization Address City/State/[facility] Co de Phone Number [facility] [address] [place] [phone] documented in this encounter Visit Diagnoses Not on filedocumented in this encounter Care Teams Ems Instructor Relationship Specialty Start Date End Date Cathleen Sears MD [address] [place] [address] PCP - General Family Medicine 03/28/18 Ivett Smith, BRIANNA [address] [place] [address] Registered Nurse Case Management 12/30/22 01/24/24 Tad Baez, PharmD [address] [place] [address] Pharmacist Internal Medicine 03/16/24 Bhumi Monroe, BRIANNA [address] [place] [address] Oncology AdminDirector Of Institutional Sales 05/21/24 [facility] 05/04/17 documented as of this encounter
--- OUTSIDE RECORDS SUMMARY | 2024-08-09 13:04 | XMS_ITS | Encounter Summary ---
Author Organization [employer] Address [address] [facility] 7t [place] [address] Care Team Providers Care End Packer Name Role Phone Cathleen Sears MD Primary Care Provider Ivett Smith RN Unavailable [phone] Tad Baez PharmD Unavailable [phone] Bhumi Monreo RN Unavailable [phone] Encounter Details Date Type Department Care Team (Late st Contact Info) Description 03/19/2022 Orders Only [facility] MED [facility] PEDS [address] [place], [place] [phone] Laura Nova LPN Social History Tobacco Use [...] Description 08/16/2024 1:45 PM EDT Office Visit [facility] OPTOMETRY [address] [place], [place] [phone] Silvia Cameron OD [address] [place], [place] [phone] 09/04/2024 1:00 PM EDT Office Visit [facility] MEDICINE 230 [place], [place] [phone] Cathleen Sears MD 230 [place] [address] documented as of this encounter Visit Diagnoses Not on filedocumented in this encounter Care Teams End Packer Relationship Specialty Start Date End Date Cathleen Sears MD [address] [place] [address] PCP - General Family Medicine 03/28/18 Ivett Smith, BRIANNA [address] [place] [address] Registered Nurse Case Management 12/30/22 01/24/24 Tad Baez, Sanjiv [address] [place] [address] Pharmacist Internal Medicine 03/16/24 Bhumi Monroe, BRIANNA [address] [place] [address] Computer Systems Software EngineerExecutive Director 05/21/24 [facility] 05/04/17 documented as of this encounter
--- OUTSIDE RECORDS SUMMARY | 2024-08-09 13:04 | XMS_ITS | Encounter Summary ---
Author Organization [employer] Address [address] [facility] 7t [place] [address] Care Team Providers Care Assistant Professor Of Forestry Name Role Phone Cathleen Sears MD Primary Care Provider Ivett Smith RN Unavailable [phone] Tad Baez PharmD Unavailable Bhumi Monroe RN Unavailable [phone] Encounter Details Date Type Department Care Team ([facility] [address] Contact Info) Description 04/29/2022 Orders Only [facility] MEDICINE [address] [place], [place] [phone] Cathleen Sears MD [address] [place], [place] [phone] Dental decay (Primary Dx) Social History Tobacco [...] Description 08/16/2024 1:45 PM EDT Office Visit [facility] OPTOMETRY [address] [place] [address] Silvia Cameron, OD [address] [place] [address] 09/04/2024 1:00 PM EDT Office Visit [facility] MEDICINE [address] [place] [address] Cathleen Sears MD [address] [place] [address] documented as of this encounter Visit Diagnoses Diagnosis Dental decay- Primary Unspecified dental caries documented in this encounter Care Teams Assistant Professor Of Forestry Relationship Specialty Start Date End Date Cathleen Sears MD [address] [place] [address] PCP - General Family Medicine 03/28/18 Ivett Smith RN [address] [place] [address] Registered Nurse Case Management 12/30/22 01/24/24 Tad Baez PharmD [address] [place] [address] Pharmacist Internal Medicine 03/16/24 Bhumi Monroe RN [address] [place] [address] Extension ForesterFranchise Business Consultant 05/21/24 [facility] 05/04/17 documented as of this encounter
--- OUTSIDE RECORDS SUMMARY | 2024-08-09 13:04 | XMS_ITS | Encounter Summary ---
Author Organization [employer] Address [address] [facility] 7t [place] [address] Care Team Providers Care Barkeep Name Role Phone Cathleen Sears MD Primary Care Provider [phone] Ivett Smith RN Unavailable [phone] Tad Baez PharmD Unavailable [phone] Bhumi Monroe RN Unavailable [phone] Reason for Visit * Reason Onset Date Comments FYI 08/16/2023 Encounter Details Date Type Department Care Team (Late st Contact Info) Description 08/16/2023 Telephone [facility] MEDICINE [address] [place], [place] [phone] Cathleen Sears MD [address] [place], [place] [phone] FYI Social History Tobacco Use Types Packs/Day [...] calling to inform pt is currently at [facility] due to shortness of breath . documented in this encounter Plan of Treatment Upcoming Encounters Date Type Department Care Team (Late st Contact Info) Description 08/16/2024 1:45 PM EDT Office Visit [facility] OPTOMETRY [address] [place] [address] Silvia Cameron, GERARDO [address] [place] [address] 09/04/2024 1:00 PM EDT Office Visit [facility] MEDICINE [address] [place] [address] Cathleen Sears MD [address] [place] [address] documented as of this encounter Visit Diagnoses Not on filedocumented in this encounter Additional Health Concerns Assessment Noted Time PHQ-9 Depression Total Score: 2 07/22/19 24 10:34 AM EDT documented as of this encounter Care Teams Barkeep Relationship Specialty Start Date End Date Cathleen Sears MD [address] [place] [address] PCP - General Family Medicine 03/28/18 Ivett Smith, BRIANNA [address] [place] [address] Registered Nurse Case Management 12/30/22 01/24/24 Tad Baez PharmD [address] [place] [address] Pharmacist Internal Medicine 03/16/24 Bhumi Monroe RN [address] [place] [address] Glass ScullionPlasma Cutting Machine Operator 05/21/24 [facility] 05/04/17 documented as of this encounter
--- OUTSIDE RECORDS SUMMARY | 2024-08-09 13:05 | XMS_ITS | Encounter Summary ---
Author Organization [employer] Address [address] [facility] 7t [place] [address] Care Team Providers Care Senior Research Project Manager Name Role Phone Cathleen Sears MD Primary Care Provider [phone] Tad Baez PharmD Unavailable [phone] Bhumi Monroe RN Unavailable [phone] Reason for Visit * Reason Onset Date Comments Care Management 07/19/2024 C3CM- f/u call Encounter Details Date Type Department Care Team ([facility] st Contact Info) Description 07/19/2024 Telephone [facility] MEDICINE [address] [place], [place] [phone] Cathleen Sears MD [address] [place], [place] [phone] Care Management (C3CM- f/u call) Social History [...] - 07/19/2024 1:24 PM EDT [facility] contacted [facility] to f/u on BIPAP and O2 portable [...] improvement. She agrees. Patient states she called [facility] to r/s her US and CT. She [...] 10 days, patient agrees withplan. CM called [facility] Centralized Scheduling. Patient scheduled 08/28/24 at 9:30am [...] message to PCP to inform. CM called [facility]. Spoke with Nery who confirms that patient attended the O2 eval on 07/03. Patient missed the NATALIE f/u on 07/04. CM called sleep medicine. Spoke with Sheryl. Visit has been rescheduled do the next available date which is 03/14/25 at 1:00pm at [address] [facility] ([facility]). documented in this encounter Plan of Treatment Upcoming Encounters Date Type Department Care Team (Late st Contact Info) Description 08/16/2024 1:45 PM EDT Office Visit [facility] OPTOMETRY [address] [place] [address] TarSilvia storey, OD [address] [place] [address] 09/04/2024 1:00 PM EDT Office Visit [facility] MEDICINE [address] [place] [address] Cathleen Sears MD 230 [place] [address] documented as of this encounter Visit Diagnoses Not on filedocumented in this encounter Additional Health Concerns Assessment Noted Time PHQ-9 Depression Total Score: 2 07/22/19 24 10:34 AM EDT documented as of this encounter Care Teams Senior Research Project Manager Relationship Specialty Start Date End Date Cathleen Sears MD 230 [place] [address] PCP - General Family Medicine 03/28/18 Tad Baez, PharmD 230 [place] [address] Pharmacist Internal Medicine 03/16/24 Bhumi Monroe, BRIANNA [address] [place] [address] Bicycle RepairerPlant Scientist 05/21/24 [facility] 05/04/17 documented as of this encounter
--- OUTSIDE RECORDS SUMMARY | 2024-08-09 13:05 | XMS_ITS | Encounter Summary ---
Author Organization [employer] Address [address] [facility] 7t [place] [address] Care Team Providers Care Fire Equipment Operator Name Role Phone Cathleen Sears MD Primary Care Provider [phone] Tad Baez PharmD Unavailable [phone] Bhumi Monroe RN Unavailable [phone] Encounter Details Date Type Department Care Team ([facility] st Contact Info) Description 08/09/2024 Population Health Risk Score [facility] [facility] (C3) Department [address] [facility] [address] [place] [phone] Provider, Population Health Generic Social History Tobacco Use Types Packs/Day Years [...] Description 08/16/2024 1:45 PM EDT Office Visit [facility] OPTOMETRY [address] [place] [address] Silvia Cameron, OD [address] [place] [address] 09/04/2024 1:00 PM EDT Office Visit [facility] MEDICINE [address] [place] [address] Cathleen Sears MD 230 [place] [address] documented as of this encounter Visit Diagnoses Not on filedocumented in this encounter Additional Health Concerns Assessment Noted Time PHQ-9 Depression Total Score: 2 07/22/19 24 10:34 AM EDT documented as of this encounter Care Teams Fire Equipment Operator Relationship Specialty Start Date End Date Cathleen Sears MD [address] [place], [place] [phone] PCP - General Family Medicine 03/28/18 Tad Baez PharmD 230 [place], [place] [phone] Pharmacist Internal Medicine 03/16/24 Bhumi Monroe, BRIANNA [address] [place] [address] Building AttendantHot Blaster 05/21/24 [facility] 05/04/17 documented as of this encounter
--- OUTSIDE RECORDS SUMMARY | 2024-08-09 13:05 | XMS_ITS | Encounter Summary ---
Author Organization [email or web address] Address [address] [facility] 7t [place] [address] Care Team Providers Care Child Psychologist Name Role Phone Cathleen Sears MD Primary Care Provider [phone] Tad Baez PharmD Unavailable [phone] Bhumi Monroe RN Unavailable [phone] Reason for Visit * Reason Onset Date Comments Pt1 04/10/2024 Encounter Details Date Type Department Care Team (Late st Contact Info) Description 04/10/2024 Telephone [facility] MEDICINE 230 [place], [place] [phone] Cathleen Sears MD [address] [place], [place] [phone] Pt1 Social History Tobacco Use Types Packs/Day [...] Y/N: Yes Provider name or facility name: [address] [place] [address] [address] [address] [facility] Escort needed: Y/N: No Do you have a wheelchair: Y/N: No If yes- Manual or electric: Visits: (3 x Month) Pt has Apt this Tuesday documented in this encounter Plan of Treatment Upcoming Encounters Date Type Department Care Team ([facility] st Contact Info) Description 08/16/2024 1:45 PM EDT Office Visit [facility] OPTOMETRY [address] [place] [address] Silvia Cameron, OD [address] [place] [address] 09/04/2024 1:00 PM EDT Office Visit [facility] MEDICINE 230 [place] [address] Cathleen Sears MD 230 [place] [address] documented as of this encounter Visit Diagnoses Not on filedocumented in this encounter Additional Health Concerns Assessment Noted Time PHQ-9 Depression Total Score: 2 07/22/19 10:34 AM EDT documented as of this encounter Care Teams Child Psychologist Relationship Specialty Start Date End Date Cathleen Sears MD [address] [place] [address] PCP - General Family Medicine 03/28/18 Tad Baez, LaurenD 230 [place] [address] Pharmacist Internal Medicine 03/16/24 Bhumi Monroe, RN [address] [place] [address] Stone Crusher OperatorTransmission Assembler 05/21/24 [facility] 05/04/17 documented as of this encounter
--- OUTSIDE RECORDS SUMMARY | 2024-08-09 13:05 | XMS_ITS | Encounter Summary ---
Author Organization [employer] Address [address] [facility] 7t [place] [address] Care Team Providers Care Gymnastics Instructor Name Role Phone Cathleen Sears MD Primary Care Provider [phone] Tad Baez PharmD Unavailable [phone] Bhumi Monroe RN Unavailable [phone] Reason for Visit * Reason Comments Care Coordination Appt reminder/pt1 Encounter Details Date Type Department Care Team (Latest Contact Info) Description 08/08/2024 Patient Outreach [facility] MEDICINE [address] [place], [place] [phone] Cathleen Sears MD [address] [place], [place] [phone] Care Coordination (Appt reminder/pt1) Social History Tobacco Use Types Packs/Day Years [...] encounter Progress Notes * Nicolasa Herrera - 08/08/2024 10:09 AM EDT CHW Nicolasa Herrera placed call to patient to remind of appt for 08/09/24 11am [facility] for xrays and labs, CHW let patient know PT1 will pick her up at 1030am. Patient understood and agreed to attend. [place] scheduled PT1 for appt on 08/16/24 with [facility] and will also attend appt. documented in this encounter Plan of Treatment Upcoming Encounters Date Type Department Care Team (Late st Contact Info) Description 08/16/2024 1:45 PM EDT Office Visit [facility] OPTOMETRY [address] [place], [place] [phone] Silvia Cameron, OD [address] [place] [address] 09/04/2024 1:00 PM EDT Office Visit [facility] MEDICINE [address] [place] [address] Cathleen Sears MD [address] [place] [address] documented as of this encounter Visit Diagnoses Not on filedocumented in this encounter Additional Health Concerns Assessment Noted Time PHQ-9 Depression Total Score: 2 07/22/19 24 10:34 AM EDT documented as of this encounter Care Teams Gymnastics Instructor Relationship Specialty Start Date End Date Cathleen Sears MD [address] [place] [address] PCP - General Family Medicine 03/28/18 Tad Baez, LaurenD [address] [place] [address] Pharmacist Internal Medicine 03/16/24 Bhumi Monroe, RN [address] [place] [address] Reed MakerChief Engineer'S Helper 05/21/24 [facility] 05/04/17 documented as of this encounter
--- OUTSIDE RECORDS SUMMARY | 2024-08-09 13:05 | XMS_ITS | Encounter Summary ---
Author Organization [employer] Address [address] [facility] 7t [place] [address] Care Team Providers Care Stucco Worker Name Role Phone Cathleen Sears MD Primary Care Provider [phone] Tad Baez PharmD Unavailable [phone] Bhumi Monroe RN Unavailable [phone] Encounter Details Date Type Department Care Team (Late st Contact Info) Description 07/23/2024 Orders Only [facility] MEDICINE [address] [place] [address] Cathleen Sears MD 230 [place], [place] [phone] Metabolic dysfunction-associated steatotic liver disease (MASLD) (Primary [...] 1:45 PM EDT Office Visit [facility] OPTOMETRY [address] [place] [address] Silvia Cameron, GERARDO [address] [place] [address] 09/04/2024 1:00 PM EDT Office Visit [facility] MEDICINE [address] [place] [address] Cathleen Sears MD 230 [place] [address] Scheduled Orders Name Type Priority Associated Diagnoses [...] documented as of this encounter Care Teams Stucco Worker Relationship Specialty Start Date End Date Cathleen Sears MD 230 [place] [address] PCP - General Family Medicine 03/28/18 Tad Baez, LaurenD [address] [place] [address] Pharmacist Internal Medicine 03/16/24 Bhumi Monroe, BRIANNA [address] [place] [address] Student Records SpecialistScrew Machine Tool Setter 05/21/24 [facility] 05/04/17 documented as of this encounter
== END 2024-08-09 12:49 | disposition home or self-care (01) ==
PROVIDERS: Physician Assistant; Emergency Provider Emergency Medicine
DX: J44.9 Chronic obstructive pulmonary disease, unspecified (principal); R06.00 Dyspnea, unspecified; E11.9 Type 2 diabetes mellitus without complications; Z79.899 Other long term (current) drug therapy; Z03.818 Encounter for observation for suspected exposure to other biological agents ruled out
CPT/HCPCS: 0241U; 71046; 80053; 83605; 85025; 87040; 93005; 99283; 99284

== ENCOUNTER → 2024-08-09 11:11 | Outpatient (BNV) | payer MEDICAID, SELFPAY | PROVIDERS: Emergency Provider Emergency Medicine; Visit Provider Radiology Diagnostic Radiology | DX: J44.9 Chronic obstructive pulmonary disease, unspecified (principal) | CPT/HCPCS: 71046 ==

== ENCOUNTER → 2024-08-09 11:11 | Outpatient (BNV) | payer MEDICAID, SELFPAY | PROVIDERS: Emergency Provider Emergency Medicine; Visit Provider Internal Medicine Cardiovascular Disease | DX: R94.31 Abnormal electrocardiogram [ECG] [EKG] (principal); R06.00 Dyspnea, unspecified | CPT/HCPCS: 93010 ==

== ENCOUNTER 2024-08-28 | Outpatient (REF) | payer MEDICAID, SELFPAY ==
--- NOTE | ~2024-08-28 | XR_ITS ---
EXAMINATION: XR CHEST 2 VIEWS HISTORY: copd exacerbation r/o pneumonia COMPARISON: Comparison is made with the prior examination dated 08/09/2024. FINDINGS: PA and lateral views of the chest are submitted. The lungs are hyperinflated, consistent with COPD. There has been progression of pneumonia at the right lung base with greater airspace opacity. The upper lung zones are clear. There is no pleural effusion, pneumothorax, or pulmonary vascular congestion. The heart remains enlarged. The bones are intact. XR/XR chest 2V IMPRESSION: Progression of right basilar pneumonia. Continued follow-up is recommended to document resolution. Electronically signed by: Jackson Mott MD 08/28/2024 03:42 PM EDT
--- OUTSIDE RECORDS SUMMARY | 2024-09-25 08:41 | XMS_ITS | Clinical Summary ---
Author Organization [employer] Address [address] [place] [address] Care Team Providers Care Dag Sprayer Name Role Phone Cathleen Mo MD Primary Care Provider [phone] Tad Baez PharmD Unavailable [phone] Allergies Active Allergy Reactions Criticality Noted Date [...] or moderate pain. 180 tablet 025 Active acetaminophen (Tylenol Extra Strength) 500 [...] Date Diagnosed Date Carpal tunnel syndrome 09/04/2024 Assessment & Plan (09/10/2024 8:53 AM EDT): - patient lost her wrist braces; will prescribe new pair Dyspnea on exertion 08/28/2024 Assessment & Plan [...] leg, and APAP prn - referred to rn digestive as requested by patient's caregiver - prescribe a cane to offload the weight Assessment & Plan (10/12/2023 11:52 AM EDT): - s/p fall - X-ray on 10/04/23 shows mildly displaced fracture of 2nd distal phalanx - continue off weight, ice, elevate leg, and APAP prn - refer to rn digestive as requested by patient's caregiver Popliteal cyst, right 10/02/2023 Assessment & Plan (10/11/2023 11:43 AM EDT): -seen on US during recent admission -repeat US Assessment & Plan (10/02/2023 4:46 PM EDT): -seen on US during recent admission -repeat US Abdominal bloating 09/27/2023 Centrilobular emphysema 09/27/2023 Overview (06/16/2024): - Colleter: [facility], last seen on 06/07/24 - Severe [...] supplemental oxygen 4L-6L; recommended to discuss with clinical document improvement educator regarding to oxygen concentrator. - Anticipate to start BiPAP 21/7 mmHg - Strongly encouraged to get COVID vaccine - Keep appt with clinical document improvement educator and resume pulmonary rehab. -Treatment Hx: Budesonide - Formoterol (Symbicort) was changed to Wixela in Jan 2023. Plan to try fluticasone / umeclidinium / vilanterol (Trelegy) per clinical document improvement educator. Colon cancer screening 09/27/2023 Assessment & Plan [...] Plan (06/16/2024 6:01 AM EDT): Following with [facility], last seen in Nov 2023 FIB-4 index 1.78 Check the status of US (advised to call the office with career development director) Avoid hepatotoxic drugs Maintain non-alcohol life Follow up with GI as scheduled Assessment & Plan (05/03/2024 5:15 PM EST): Following with [facility], last seen in Nov 2023 FIB-4 index 1.78 Check the status of US (advised to call the office with career development director) Avoid hepatotoxic drugs Maintain non-alcohol life Follow up with GI as scheduled Assessment & Plan (03/26/2024 5:03 PM EST): Following with [facility], last seen in Nov 2023 FIB-4 index 1.78 Check the status of US (advised to call the office with career development director) Avoid hepatotoxic drugs Maintain non-alcohol life Follow up with GI as scheduled Assessment & Plan (02/06/2024 5:37 AM EST): Following with [facility], last seen in Nov 2023 FIB-4 index 1.78 Check the status of US (advised to call the office with career development director) Avoid hepatotoxic drugs Maintain non-alcohol life Follow up with GI as scheduled Assessment & Plan (11/29/2023 11:32 AM EDT): Following with [facility], last seen in May 2023 FIB-4 index 1.78 Check the status of US Avoid hepatotoxic drugs Maintain non-alcohol life Follow up with GI as scheduled Assessment & Plan (10/11/2023 11:42 AM EDT): Following with [facility], last seen in May 2023 FIB-4 index 1.78 Check the status of US Avoid hepatotoxic drugs Maintain non-alcohol life Follow up with GI as scheduled Assessment & Plan (10/02/2023 4:34 PM EDT): Following with [facility], last seen in May 2023 FIB-4 index 1.78 Check the status of US Avoid hepatotoxic drugs Maintain non-alcohol life Follow up with GI as scheduled Assessment & Plan (08/27/2023 6:55 AM EDT): Following with [facility], last seen in May 2023 FIB-4 [...] and hyp ercapnia 09/09/2022 Assessment & Plan (09/10/2024 8:56 AM EDT): - Colleter: Ashly, last seen on 06/07/24 - Severe exacerbation 1-2 times per month for the last 6 months - Most recent hospitalization for severe COPD exacerbation in Mar 2024. Treated with IV steroid, antibiotic, and BiPAP. - Most recent COPD exacerbation on 08/28/24. Treated with azithromycin and prednisone x 5 days. - Last intubation in September 2023 (2 times in last 12 mo) - Continue Fluticasone-Salmeterol (Wixela) 500-50mcg 1 puff inhaled twice daily - Continue umeclidinium (Incruse) - Continue albuterol HFA prn. - Continue DuoNeb for neb prn Tx. - Continue working on smoking cessation. - Continue supplemental oxygen 4L-6L; recommended to discuss with clinical document improvement educator regarding to oxygen concentrator. - Anticipate to start BiPAP 21/7 mmHg - Strongly encouraged to get COVID vaccine - Keep appt with clinical document improvement educator and resume pulmonary rehab. -Treatment Hx: Budesonide - Formoterol (Symbicort) was changed to Wixela in Jan 2023. Plan to try fluticasone / umeclidinium / vilanterol (Trelegy) per clinical document improvement educator. Assessment & Plan (06/16/2024 5:58 AM EDT): - Colleter: Ashly, last seen on 06/07/24 - Severe [...] supplemental oxygen 4L-6L; recommended to discuss with clinical document improvement educator regarding to oxygen concentrator. - Anticipate to start BiPAP 21/7 mmHg - Strongly encouraged to get COVID vaccine - Keep appt with clinical document improvement educator and resume pulmonary rehab. -Treatment Hx: Budesonide - Formoterol (Symbicort) was changed to Wixela in Jan 2023. Plan to try fluticasone / umeclidinium / vilanterol (Trelegy) per clinical document improvement educator. Assessment & Plan (05/03/2024 5:14 PM EST): - Colleter: Ashly, last seen on 12/29/23 - Severe [...] supplemental oxygen 4L-6L; recommended to discuss with clinical document improvement educator regarding to oxygen concentrator. - Strongly encouraged to get COVID vaccine - Keep appt with clinical document improvement educator and resume pulmonary rehab. -Treatment Hx: Budesonide - Formoterol (Symbicort) was changed to Wixela in Jan 2023. Plan to try Trelegy. Assessment & Plan (04/02/2024 6:16 AM EST): - Colleter: Ashly, last seen on 11/18/23 - Severe [...] supplemental oxygen 4L-6L; recommended to discuss with clinical document improvement educator regarding to oxygen concentrator. - Strongly encouraged to get COVID vaccine - Keep appt with clinical document improvement educator and resume pulmonary rehab. -Treatment Hx: Budesonide - Formoterol (Symbicort) was changed to Wixela in Jan 2023. Plan to try Trelegy. -Since she seldom sees her [facility] clinical document improvement educator, and she is well-known to [facility] clinical document improvement educator / critical medicine teams, we discussed about transferring care to [facility] pulmonology. Patient agreed with the plan initially, but decided to stay with [facility] clinical document improvement educator. Assessment & Plan (02/06/2024 5:34 AM EST): - Colleter: Ashly, last seen on 11/18/23 - Severe [...] supplemental oxygen 4L-6L; recommended to discuss with clinical document improvement educator regarding to oxygen concentrator. - Strongly encouraged to get COVID vaccine - Keep appt with clinical document improvement educator and resume pulmonary rehab. -Treatment Hx: Budesonide - Formoterol (Symbicort) was changed to Wixela in Jan 2023. Plan to try Trelegy. -Since she seldom sees her [facility] clinical document improvement educator, and she is well-known to [facility] clinical document improvement educator / critical medicine teams, we discussed about transferring care to [facility] pulmonology. Patient agreed with the plan initially, but decided to stay with [facility] clinical document improvement educator. Assessment & Plan (11/29/2023 11:51 AM EDT): - Colleter: Ashly, last seen on 11/18/23 - Severe [...] supplemental oxygen 4L-6L; recommended to discuss with clinical document improvement educator regarding to oxygen concentrator. - Strongly encouraged to get COVID vaccine - Keep appt with clinical document improvement educator -Treatment Hx: Budesonide - Formoterol (Symbicort) was changed to Wixela in Jan 2023. Plan to try Trelegy. Assessment & Plan (10/11/2023 11:41 AM EDT): - Colleter: Ashly, last seen on 05/31/23 - Severe [...] supplemental oxygen 4L-6L; recommended to discuss with clinical document improvement educator regarding to oxygen concentrator. - Strongly encouraged to get COVID vaccine - Keep appt with clinical document improvement educator -Treatment Hx: Budesonide - Formoterol (Symbicort) was changed to Wixela in Jan 2023. Plan to try Trelegy. Assessment & Plan (10/04/2023 5:21 PM EDT): - Colleter: Ashly, last seen on 05/31/23 - Severe [...] supplemental oxygen 4L-6L; recommended to discuss with clinical document improvement educator regarding to oxygen concentrator. - Strongly encouraged to get COVID vaccine - Keep appt with clinical document improvement educator -Treatment Hx: Budesonide - Formoterol (Symbicort) was changed to Wixela in Jan 2023. Plan to try Trelegy. Assessment & Plan (08/23/2023 3:08 PM EDT): - Colleter: Ashly, last seen on 05/31/23 - Severe [...] supplemental oxygen 4L-6L; recommended to discuss with clinical document improvement educator regarding to oxygen concentrator. - Strongly encouraged to get COVID vaccine - Keep appt with clinical document improvement educator -Treatment Hx: Budesonide - Formoterol (Symbicort) was changed to Wixela in Jan 2023. Plan to try Trelegy. Assessment & Plan (05/08/2023 6:27 AM EST): - Colleter: Ashly, last seen on 01/28/23 - Acute [...] get COVID vaccine - Keep appt with clinical document improvement educator. Plan at last visit was to do a nocturnal polysomnogram with TCCO2 monitoring to evaluate for nocturnal non-invasive ventilator assessment and chest CT w/o contrast and TTE after polysomnogram Assessment & Plan (03/01/2023 6:50 AM EST): - Colleter: Ashly, last seen on 01/28/23 - Severe [...] Dx COPD exacerbation, CAP, Tx azithromycin - [facility] hospitalization 01/11/19-01/17/19, b/l lower lobe pneumonia, L > R, treated with IV steroid, levofloxacin, and bronchodilators Tx. Discharged with prednisone, benzonatate, levofloxacin. - Continue Fluticasone-Salmeterol (Wixela) 500-50mcg 1 puff inhaled twice daily - Continue albuterol HFA prn. - Continue DuoNeb for neb prn Tx. - Continue workin on smoking cessation. - Continue supplemental oxygen 4L-6L - Strongly encouraged to get COVID vaccine - Keep appt with clinical document improvement educator -Treatment Hx: Budesonide - Formoterol (Symbicort) was changed to Wixela in Jan 2023. Plan to try Trelegy. Gastroesophageal reflux disease 09/09/2022 Assessment & Plan (08/23/2023 3:11 PM EDT): [facility], last seen in May 2023 Continue pantoprazole and famotidine History of alcohol use disorder 09/09/2022 History of intravenous drug abuse 09/09/2022 Post-traumatic stress disorder 09/09/2022 COPD (chronic obstructive pulmonary disease) Assessment & Plan (09/10/2024 8:55 AM EDT): - Colleter: Ashyl, last seen on 06/07/24 - Severe exacerbation 1-2 times per month for the last 6 months - Most recent hospitalization for severe COPD exacerbation in Mar 2024. Treated with IV steroid, antibiotic, and BiPAP. - Most recent COPD exacerbation on 08/28/24, seen in the walk-in clinic. Treated with azithromycin and prednisone x 5 days. - Last intubation in September 2023 (2 times in last 12 mo) - Continue Fluticasone-Salmeterol (Wixela) 500-50mcg 1 puff inhaled twice daily - Continue umeclidinium (Incruse) - Continue albuterol HFA prn. - Continue DuoNeb for neb prn Tx. - Continue working on smoking cessation. - Continue supplemental oxygen 4L-6L; recommended to discuss with clinical document improvement educator regarding to oxygen concentrator. - Anticipate to start BiPAP 21/7 mmHg - Strongly encouraged to get COVID vaccine - Keep appt with clinical document improvement educator and resume pulmonary rehab. -Treatment Hx: Budesonide - Formoterol (Symbicort) was changed to Wixela in Jan 2023. Plan to try fluticasone / umeclidinium / vilanterol (Trelegy) per clinical document improvement educator. Assessment & Plan (06/16/2024 5:57 AM EDT): - Colleter: Ashly, last seen on 06/07/24 - Severe [...] supplemental oxygen 4L-6L; recommended to discuss with clinical document improvement educator regarding to oxygen concentrator. - Anticipate to start BiPAP 21/7 mmHg - Strongly encouraged to get COVID vaccine - Keep appt with clinical document improvement educator and resume pulmonary rehab. -Treatment Hx: Budesonide - Formoterol (Symbicort) was changed to Wixela in Jan 2023. Plan to try fluticasone / umeclidinium / vilanterol (Trelegy) per clinical document improvement educator. Assessment & Plan (05/03/2024 5:06 PM EST): - Colleter: Ashly, last seen on 12/29/23 - Severe [...] supplemental oxygen 4L-6L; recommended to discuss with clinical document improvement educator regarding to oxygen concentrator. - Strongly encouraged to get COVID vaccine - Keep appt with clinical document improvement educator and resume pulmonary rehab. -Treatment Hx: Budesonide - Formoterol (Symbicort) was changed to Wixela in Jan 2023. Plan to try fluticasone / umeclidinium / vilanterol (Trelegy) per clinical document improvement educator. Assessment & Plan (04/02/2024 6:16 AM EST): - Colleter: Ashly, last seen on 11/18/23 - Severe [...] supplemental oxygen 4L-6L; recommended to discuss with clinical document improvement educator regarding to oxygen concentrator. - Strongly encouraged to get COVID vaccine - Keep appt with clinical document improvement educator and resume pulmonary rehab. -Treatment Hx: Budesonide - Formoterol (Symbicort) was changed to Wixela in Jan 2023. Plan to try Trelegy. -Since she seldom sees her [facility] clinical document improvement educator, and she is well-known to [facility] clinical document improvement educator / critical medicine teams, we discussed about transferring care to [facility] pulmonology. Patient agreed with the plan initially, but decided to stay with [facility] clinical document improvement educator. Assessment & Plan (02/06/2024 5:33 AM EST): - Colleter: Ashly, last seen on 11/18/23 - Severe [...] supplemental oxygen 4L-6L; recommended to discuss with clinical document improvement educator regarding to oxygen concentrator. - Strongly encouraged to get COVID vaccine - Keep appt with clinical document improvement educator and resume pulmonary rehab. -Treatment Hx: Budesonide - Formoterol (Symbicort) was changed to Wixela in Jan 2023. Plan to try Trelegy. -Since she seldom sees her [facility] clinical document improvement educator, and she is well-known to [facility] clinical document improvement educator / critical medicine teams, we discussed about transferring care to [facility] pulmonology. Patient agreed with the plan initially, but decided to stay with [facility] clinical document improvement educator. Assessment & Plan (11/29/2023 11:51 AM EDT): - Colleter: Ashly, last seen on 11/18/23 - Severe [...] supplemental oxygen 4L-6L; recommended to discuss with clinical document improvement educator regarding to oxygen concentrator. - Strongly encouraged to get COVID vaccine - Keep appt with clinical document improvement educator -Treatment Hx: Budesonide - Formoterol (Symbicort) was changed to Wixela in Jan 2023. Plan to try Trelegy. Assessment & Plan (10/11/2023 11:41 AM EDT): - Colleter: Ashly, last seen on 05/31/23 - Severe [...] supplemental oxygen 4L-6L; recommended to discuss with clinical document improvement educator regarding to oxygen concentrator. - Strongly encouraged to get COVID vaccine - Keep appt with clinical document improvement educator -Treatment Hx: Budesonide - Formoterol (Symbicort) was changed to Wixela in Jan 2023. Plan to try Trelegy. Assessment & Plan (10/04/2023 5:20 PM EDT): - Colleter: [facility], last seen on 05/31/23 - Severe [...] supplemental oxygen 4L-6L; recommended to discuss with clinical document improvement educator regarding to oxygen concentrator. - Strongly encouraged to get COVID vaccine - Keep appt with clinical document improvement educator -Treatment Hx: Budesonide - Formoterol (Symbicort) was changed to Wixela in Jan 2023. Plan to try Trelegy. Assessment & Plan (08/23/2023 3:08 PM EDT): - Colleter: [place], last seen on 05/31/23 - Severe exacerbation [...] supplemental oxygen 4L-6L; recommended to discuss with clinical document improvement educator regarding to oxygen concentrator. - Strongly encouraged to get COVID vaccine - Keep appt with clinical document improvement educator -Treatment Hx: Budesonide - Formoterol (Symbicort) was changed to Wixela in Jan 2023. Plan to try Trelegy. Assessment & Plan (05/31/2023 4:31 PM EST): - Colleter: Ashly, last seen on 01/28/23 - Severe [...] supplemental oxygen 4L-6L; recommended to discuss with clinical document improvement educator regarding to oxygen concentrator. - Strongly encouraged to get COVID vaccine - Keep appt with clinical document improvement educator -Treatment Hx: Budesonide - Formoterol (Symbicort) was changed to Wixela in Jan 2023. Plan to try Trelegy. Assessment & Plan (05/08/2023 6:17 AM EST): - Colleter: Ashly, last seen on 01/28/23 - Severe [...] get COVID vaccine - Keep appt with clinical document improvement educator -Treatment Hx: Budesonide - Formoterol (Symbicort) was changed to Wixela in Jan 2023. Plan to try Trelegy. Assessment & Plan (03/01/2023 6:49 AM EST): - Colleter: Ashly, last seen on 01/28/23 - Severe [...] Dx COPD exacerbation, CAP, Tx azithromycin - [facility] hospitalization 01/11/19-01/17/19, b/l lower lobe pneumonia, L > R, treated with IV steroid, levofloxacin, and bronchodilators Tx. Discharged with prednisone, benzonatate, levofloxacin. - Continue Fluticasone-Salmeterol (Wixela) 500-50mcg 1 puff inhaled twice daily - Continue albuterol HFA prn. - Continue DuoNeb for neb prn Tx. - Continue workin on smoking cessation. - Continue supplemental oxygen 4L-6L - Strongly encouraged to get COVID vaccine - Keep appt with clinical document improvement educator -Treatment Hx: Budesonide - Formoterol (Symbicort) was changed to Wixela in Jan 2023. Plan to try Trelegy. Assessment & Plan (12/24/2022 3:40 PM EDT): - Colleter: Ashly, last seen on 04/15/22 - Severe exacerbation 1-2 per year, none in [id number] - Most recent exacerbation today 12/22/22, Rx prednisone taper and azithromycin - Last hospitalization for COPD exacerbation in Feb 2020, Rx ceftriaxone, steroid, discharged with prednisone burst. - Hospitalization in Mar 2019. Dx COPD exacerbation. Rx prednisone and doxycycline - Exacerbation in Jan 2019, hospitalized 02/05/19- 02/07/19, Dx COPD exacerbation, CAP, Tx azithromycin - [facility] hospitalization 01/11/19-01/17/19, b/l lower lobe pneumonia, L > R, treated with IV steroid, levofloxacin, and bronchodilators Tx. Discharged with prednisone, benzonatate, levofloxacin. - Continue Symbicort and Incruse as maintenance. Plan to switch to Trelegy per clinical document improvement educator - Continue albuterol HFA prn. - Continue DuoNeb for neb prn Tx. - Continue workin on smoking cessation. - Continue supplemental oxygen 4L - Keep appt with clinical document improvement educator - Strongly encouraged to get COVID vaccine Assessment & Plan (12/05/2022 5:51 AM EDT): - Colleter: Ashly, last seen on 04/15/22 - Severe exacerbation 1-2 per year, none in [id number] - Most recent exacerbation in Feb 2020, required hospitalization at [facility], Rx ceftriaxone, steroid, discharged with prednisone burst. - Hospitalization in Mar 2019. Dx COPD exacerbation. Rx prednisone and doxycycline - Exacerbation in Jan 2019, hospitalized 02/05/19- 02/07/19, Dx COPD exacerbation, CAP, Tx azithromycin - [facility] hospitalization 01/11/19-01/17/19, b/l lower lobe pneumonia, L > R, treated with IV steroid, levofloxacin, and bronchodilators Tx. Discharged with prednisone, benzonatate, levofloxacin. - Continue Symbicort and Incruse as maintenance. Plan to switch to Trelegy per clinical document improvement educator - Continue albuterol HFA prn. - Continue DuoNeb for neb prn Tx. - Continue workin on smoking cessation. - Continue supplemental oxygen 4L - Keep appt with clinical document improvement educator - Strongly encouraged to get COVID vaccine Assessment & Plan (05/08/2022 5:47 PM EST): - Colleter: Ashly, last seen on 04/15/22 - Severe exacerbation 1-2 per year, none in [id number] - Most recent exacerbation in Feb 2020, required hospitalization at [facility], Rx ceftriaxone, steroid, discharged with prednisone burst. - Hospitalization in Mar 2019. Dx COPD exacerbation. Rx prednisone and doxycycline - Exacerbation in Jan 2019, hospitalized 02/05/19- 02/07/19, Dx COPD exacerbation, CAP, Tx azithromycin - [facility] hospitalization 01/11/19-01/17/19, b/l lower lobe pneumonia, L > R, treated with IV steroid, levofloxacin, and bronchodilators Tx. Discharged with prednisone, benzonatate, levofloxacin. - Continue Symbicort and Incruse as maintenance. Plan to switch to Trelegy per clinical document improvement educator - Continue albuterol HFA prn. - Continue DuoNeb for neb prn Tx. - Continue workin on smoking cessation. - Continue supplemental oxygen 4L - Keep appt with clinical document improvement educator - Strongly encouraged to get COVID vaccine Assessment & Plan (04/12/2022 7:28 PM EST): - Colleter: Ashly - Severe exacerbation 1-2 per year, none in [id number] - Most recent exacerbation in Feb 2020, required hospitalization at [facility], Rx ceftriaxone, steroid, discharged with prednisone burst. - Hospitalization in Mar 2019. Dx COPD exacerbation. Rx prednisone and doxycycline - Exacerbation in Jan 2019, hospitalized 02/05/19- 02/07/19, Dx COPD exacerbation, CAP, Tx azithromycin - [facility] hospitalization 01/11/19-01/17/19, b/l lower lobe pneumonia, L > R, treated with IV steroid, levofloxacin, and bronchodilators Tx. Discharged with prednisone, benzonatate, levofloxacin. - Continue Breo and Spiriva as maintenance. Plan to switch to Trelegy per clinical document improvement educator - Continue albuterol HFA prn. - Continue DuoNeb for neb prn Tx. - Continue workin on smoking cessation. - Continue supplemental oxygen 4L - Keep appt with clinical document improvement educator in October. - Strongly encouraged to get COVID vaccine Diabetes mellitus, type 2 04/12/2022 Assessment & Plan (09/04/2024 5:10 PM EDT): - A1C 6.5% 09/04/24, 7.0% on 03/26/24 - in a setting of frequent steroid use for COPD exacerbation - continue working on lifestyle modifications - continue SMBG - continue metformin ER 500 mg twice daily - last eye exam: referred to [facility] eye care - last comprehensive foot [...] daily - last eye exam: referred to [facility] eye care - last comprehensive foot [...] daily - last eye exam: referred to [facility] - last comprehensive foot exam: 10/04/23, [...] daily - last eye exam: referred to [facility] eye care - last comprehensive foot [...] daily - last eye exam: referred to [facility] eye care - last comprehensive foot [...] daily - last eye exam: referred to [facility] eye [facility] - last comprehensive foot exam: 10/04/23, [...] daily - last eye exam: referred to [facility] eye care - last comprehensive foot [...] daily - last eye exam: referred to [facility] eye care - last comprehensive foot [...] daily - last eye exam: referred to [facility] eye care - last comprehensive foot exam: - last lipid profile: 12/24/22 - last microalbumin test: Ordered Assessment & Plan (11/28/2023 5:43 AM EDT): >>ASSESSMENT AND PLAN FOR DIABETES MELLITUS, TYPE 2 ([facility]) WRITTEN ON 05/31/2023 4:21 PM BY CATHLEEN MO MD - A1C 6.7% on 05/19/23, likely due to frequent steroid use recently - continue working on lifestyle modifications - start SMBG - start metformin ER 500 mg once daily - refer to [facility] eye care - foot exam at [...] on recovery Dyslipidemia 05/24/2016 Assessment & Plan (09/06/2024 9:36 PM EDT): - last lipid profile: 06/12/24 TC 282; TG 269; HDL 47; LDL 182 - Current medication: rosuvastatin 20 mg qhs and omega-3 1g bid - Work on lifestyle modificatioins - Moderate intensity statin therapy is recommended - Monitor LFT; consider decreasing rosuvastatin to 10 mg at bedtime if transaminates worsens. Assessment & Plan (06/12/2024 9:01 AM EDT): [...] 6:44 AM EST): -Supplier: [employer] -Pt had Gtyp-sm-Gezi visit with Dr. Hart, clinical document improvement educator, on 01/28/23. He recommended supplemental oxygen 4LNC [...] hypoxia / COPD - previously referred to cell maker, but pt missed appt Assessment & Plan (12/05/2022 5:49 AM EDT): - 09/24/21 Hemoglobin 19.0; Hematocrit 59.1 - likely due to hypoxia / COPD - previously referred to cell maker, but pt missed appt Assessment & Plan (05/08/2022 5:50 PM EST): - 09/24/21 Hemoglobin 19.0; Hematocrit 59.1 - likely due to hypoxia / COPD - previously referred to cell maker, but pt missed appt Assessment & Plan (04/12/2022 7:51 PM EST): - 09/24/21 Hemoglobin 19.0; Hematocrit 59.1 - likely due to hypoxia / COPD - previously referred to cell maker, but pt missed appt 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 Hepatitis C antibody test positive 01/07/2015 Chronic liver disease 09/03/2014 Assessment & Plan (06/16/2024 6:02 AM EDT): -Likely due to Hx alcohol use disorder -Followed by [facility], last visit on 12/21/23 -Hepatitis profile: [...] to Hx alcohol use disorder -Followed by [facility], last visit on 12/21/23 -Hepatitis profile: [...] to Hx alcohol use disorder -Followed by [facility], last visit on 12/21/23 -Hepatitis profile: [...] to Hx alcohol use disorder -Followed by [facility], last visit on 12/21/23 -Hepatitis profile: [...] to Hx alcohol use disorder -Followed by [facility], last visit on 06/22/23 -Hepatitis profile: [...] to Hx alcohol use disorder -Followed by [facility], last visit on 06/22/23 -Hepatitis profile: [...] to Hx alcohol use disorder -Followed by [facility], last visit on 06/22/23 -Hepatitis profile: [...] to Hx alcohol use disorder -Followed by [facility], last visit on 06/22/23 -Hepatitis profile: [...] to Hx alcohol use disorder -Followed by [facility], last visit on 09/24/21 -Hepatitis profile: [...] to Hx alcohol use disorder -Followed by [facility], last visit on 09/24/21 -Hepatitis profile: [...] to Hx alcohol use disorder -Followed by [facility], last visit on 09/24/21 -Hepatitis profile: [...] to continue staying abstinent -consider changing to [facility] since pt has a difficulty [...] to Hx alcohol use disorder -Followed by [facility], last visit on 09/24/21 -Hepatitis profile: [...] to continue staying abstinent -consider changing to [facility] since pt has a difficulty getting appt with current GI Assessment & Plan (05/08/2022 5:48 PM EST): -Likely due to Hx alcohol use disorder -Followed by [facility], last visit on 09/24/21 -Hepatitis profile: [...] to Hx alcohol use disorder -Followed by [facility], last visit on 09/24/21 -Hepatitis profile: [...] mg, but if not approved will prescribe [id number] mg daily -Follow up in 3-6 mo, sooner if any problem arises Assessment & Plan (03/01/2023 6:52 AM EST): -Goal BP < 140/90 per JNC-8 and < 130/80 per ACC/AHA guideline (Treatment threshold >= 140/90 ) -Continue working on lifestyle modifications -Continue Amlodipine 10 mg daily -Recently seen by clinical document improvement educator, Dr. Hart, and was recommended to switch [...] Depression; PTSD; alcohol-induced mood disorder [facility] provider: [facility], psychiatrist Dr. Cruz Current medications: sertraline 125 mg daily, perphenazine 4 mg daily Previously tried medications: risperidone; hydroxyzine; prazosin pt is depression has worsened with current living condition pt was able to contract her safety today Assessment & Plan (04/02/2024 6:22 AM EST): Previous Dx: Depression; PTSD; alcohol-induced mood disorder [facility] provider: Mumtaz Current medications: sertraline, prazosin 2mg, hydroxyzine, and risperidone. pt is depression has worsened with current living condition pt was able to contract her safety today Assessment & Plan (10/04/2023 9:59 AM EDT): Previous Dx: Depression; PTSD; alcohol-induced mood disorder [facility] provider: Mumtaz Current medications: sertraline, prazosin 2mg, hydroxyzine, and risperidone. pt is depression has worsened with current living condition pt was able to contract her safety today Assessment & Plan (08/18/2023 5:43 AM EDT): Previous Dx: Depression; PTSD; alcohol-induced mood disorder [facility] provider: Mumtaz Current medications: sertraline, prazosin 2mg, hydroxyzine, and risperidone. pt is depression has worsened with current living condition pt was able to contract her safety today Assessment & Plan (05/08/2022 5:53 PM EST): Previous Dx: Depression; PTSD; alcohol-induced mood disorder [facility] provider: Mumtaz Current medications: sertraline, prazosin 2mg, hydroxyzine, and risperidone. pt is depression has worsened with current living condition pt was able to contract her safety today Assessment & Plan (04/12/2022 7:43 PM EST): Previous Dx: Depression; PTSD; alcohol-induced mood disorder [facility] provider: Mumtaz Current medications: sertraline, prazosin [...] varenicline in Nov 2023 - referred to [facility] Assessment & Plan (04/26/2024 10:32 AM EST): - restarted smoking in August 2023 - previously tried varenicline and nicotine replacement - not candidate for lung cancer screening CT due to severe COPD - continue working on smoking cessation - prescribed varenicline in Nov 2023 - referred to [facility] Assessment & Plan (04/02/2024 6:20 AM EST): - restarted smoking in August 2023 - previously tried varenicline and nicotine replacement - not candidate for lung cancer screening CT due to severe COPD - continue working on smoking cessation - prescribed varenicline in Nov 2023 - referred to [facility] Assessment & Plan (02/06/2024 5:38 AM EST): - restarted smoking in August 2023 - previously tried varenicline and nicotine replacement - not candidate for lung cancer screening CT due to severe COPD - continue working on smoking cessation - prescribed varenicline in Nov 2023 - referred to [facility] Assessment & Plan (11/29/2023 11:53 AM EDT): [...] & Plan (09/04/2024 5:12 PM EDT): - 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 [employer]: [facility], last visit on 06/15/20 - Current replacement: levothyroxine 225 mcg daily - Most recent thyroid function test: 0.22 06/12/24 therapeutic range, slightly low - Recheck today Assessment & Plan (06/16/2024 6:02 AM EDT): - 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 [employer]: [facility], 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 visit on 06/15/20 - Current replacement: levothyroxine 225 mcg daily - Most recent thyroid function test: 11/08/23 therapeutic range - Recheck today Assessment & Plan (04/26/2024 10:32 AM EST): - Supervisor [employer]: [facility], last visit on 06/15/20 - Current replacement: levothyroxine 225 mcg daily - Most recent thyroid function test: 11/08/23 therapeutic range Assessment & Plan (03/26/2024 5:03 PM EST): - Supervisor [employer]: [facility], last visit on 06/15/20 - Current replacement: levothyroxine 225 mcg daily - Most recent thyroid function test: 08/03/23 therapeutic range - Requested to repeat lab today. - Encouraged to improve adherence. Assessment & Plan (02/02/2024 2:28 PM EST): - Supervisor [employer]: [facility], last visit on 06/15/20 - Current replacement: levothyroxine 225 mcg daily - Most recent thyroid function test: 08/03/23 therapeutic range - Requested to repeat lab today. - Encouraged to improve adherence. Assessment & Plan (11/29/2023 11:32 AM EDT): - Supervisor [employer]: [facility], last visit on 06/15/20 - Current replacement: levothyroxine 225 mcg daily - Most recent thyroid function test: 08/03/23 therapeutic range - Requested to repeat lab today. - Encouraged to improve adherence. 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 - Encouraged to improve adherence. Assessment & Plan (10/02/2023 4:45 PM EDT): - Supervisor [employer]: [facility], last visit on 06/15/20 - Current replacement: levothyroxine 225 mcg daily - Most recent thyroid function test: 08/03/23 therapeutic range - Requested to repeat lab today. - Encouraged to improve adherence. Assessment & Plan (12/05/2022 5:49 AM EDT): - Supervisor [employer]: [facility], last visit on 06/15/20 - Current replacement: levothyroxine 200 mcg daily - Most recent thyroid function test: 09/24/21 TSH 23.42 - 08/13/20 TSH 26.67, Free T4 0.9 - 10/22/19 TSH 48.28; Free T4 0.44 - Requested to repeat lab today. - Encouraged to improve adherence. - Advised to keep appt with [employer] Assessment & Plan (04/12/2022 7:31 PM EST): - Supervisor [employer]: [facility], last visit on 06/15/20 - Current replacement: levothyroxine 200 mcg daily - Most recent thyroid function test: 09/24/21 TSH 23.42 - 08/13/20 TSH 26.67, Free T4 0.9 - 10/22/19 TSH 48.28; Free T4 0.44 - Requested to repeat lab today. - Encouraged to improve adherence. - Advised to keep appt with [employer] Resolved Problems Problem Noted Date Diagnosed Date Resolved Date COPD exacerbation 08/28/2024 09/10/2024 Assessment & Plan (08/28/2024 3:21 PM EDT): I will prescribe 5 days of Z pack and prednisone 60mg daily I will prescribe tessalon pearls for cough and acetaminophen for general discomfort CXR ordered to r/o underline pneumonia ED precautions reviewed COPD with acute exacerbation 03/08/2024 03/25/2024 Assessment [...] & Plan (05/31/2023 4:34 PM EST): - Supervisor [employer]: [facility], last visit on 06/15/20 - Current replacement: levothyroxine 225 mcg daily (recently increased from 212.5 mcg because patient had TSH 5.92 and free T4 0.6) - Most recent thyroid function test: Most recent TSH in Mar 2023 was 5.92 (patient was having acute illness) - Recheck thyroid function Assessment & Plan (05/08/2023 6:34 AM EST): - [employer]visor [employer]: [facility], last visit on 06/15/20 - Current replacement: levothyroxine 225 mcg daily (recently increased from 212.5 mcg because patient had TSH 5.92 and free T4 0.6) - Most recent thyroid function test: Most recent TSH in Mar 2023 was 5.92 (patient was having acute illness) - Recheck thyroid function Assessment & Plan (12/24/2022 3:43 PM EDT): - 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 Assessment & Plan (12/05/2022 5:53 AM EDT): - [employer]: [facility], last visit on 06/15/20 - Current replacement: levothyroxine 200 mcg daily - Most recent thyroid function test: 09/24/21 TSH 23.42 - 08/13/20 TSH 26.67, Free T4 0.9 - 10/22/19 TSH 48.28; Free T4 0.44 - Requested to repeat lab today. - Encouraged to improve adherence. - Advised to keep appt with [employer] Assessment & Plan (05/08/2022 5:49 PM EST): - Supervisor [employer]: [facility], last visit on 06/15/20 - Current replacement: levothyroxine 200 mcg daily - Most recent thyroid function test: 09/24/21 TSH 23.42 - 08/13/20 TSH 26.67, Free T4 0.9 - 10/22/19 TSH 48.28; Free T4 0.44 - Requested to repeat lab today. - Encouraged to improve adherence. - Advised to keep appt with [employer] Assessment & Plan (04/12/2022 7:32 PM EST): - Supervisor [employer]: [facility], last visit on 06/15/20 - Current replacement: levothyroxine 200 mcg daily - Most recent thyroid function test: 09/24/21 TSH 23.42 - 08/13/20 TSH 26.67, Free T4 0.9 - 10/22/19 TSH 48.28; Free T4 0.44 - Requested to repeat lab today. - Encouraged to improve adherence. - Advised to keep appt with [employer]visor [employer] Cirrhosis, alcoholic 01/07/2015 024 Assessment & Plan (05/31/2023 4:21 PM EST): -Followed by [facility], last visit on 09/24/21 -Hepatitis profile: [...] Plan (04/12/2022 7:38 PM EST): -Followed by [facility], last visit on 09/24/21 -Hepatitis profile: [...] & Plan (12/24/2022 3:41 PM EDT): - Colleter: Ashly, last seen on 04/15/22 - Severe exacerbation 1-2 per year, none in [id number] - Most recent exacerbation today, 12/22/22. - Last hospitalization Feb 2020. [facility]. Rx ceftriaxone, steroid, discharged with prednisone burst. - Hospitalization in Mar 2019. Dx COPD exacerbation. Rx prednisone and doxycycline - Exacerbation in Jan 2019, hospitalized 02/05/19- 02/07/19, Dx COPD exacerbation, CAP, Tx azithromycin - [facility] hospitalization 01/11/19-01/17/19, b/l lower lobe pneumonia, L > R, treated with IV steroid, levofloxacin, and bronchodilators Tx. Discharged with prednisone, benzonatate, levofloxacin. - Continue Symbicort and Incruse as maintenance. Plan to switch to Trelegy per clinical document improvement educator - Continue albuterol HFA prn. - Continue DuoNeb for neb prn Tx. - Continue workin on smoking cessation. - Continue supplemental oxygen 4L - Keep appt with clinical document improvement educator - Strongly encouraged to get COVID vaccine Assessment & Plan (12/05/2022 5:51 AM EDT): - Colleter: Ashly, last seen on 04/15/22 - Severe exacerbation 1-2 per year, none in [id number] - Most recent exacerbation in Feb 2020, required hospitalization at [facility], Rx ceftriaxone, steroid, discharged with prednisone burst. - Hospitalization in Mar 2019. Dx COPD exacerbation. Rx prednisone and doxycycline - Exacerbation in Jan 2019, hospitalized 02/05/19- 02/07/19, Dx COPD exacerbation, CAP, Tx azithromycin - [facility] hospitalization 01/11/19-01/17/19, b/l lower lobe pneumonia, L > R, treated with IV steroid, levofloxacin, and bronchodilators Tx. Discharged with prednisone, benzonatate, levofloxacin. - Continue Symbicort and Incruse as maintenance. Plan to switch to Trelegy per clinical document improvement educator - Continue albuterol HFA prn. - Continue DuoNeb for neb prn Tx. - Continue workin on smoking cessation. - Continue supplemental oxygen 4L - Keep appt with clinical document improvement educator - Strongly encouraged to get COVID vaccine Assessment & Plan (05/08/2022 5:47 PM EST): - Colleter: Ashly, last seen on 04/15/22 - Severe exacerbation 1-2 per year, none in [id number] - Most recent exacerbation in Feb 2020, required hospitalization at [facility], Rx ceftriaxone, steroid, discharged with prednisone burst. - Hospitalization in Mar 2019. Dx COPD exacerbation. Rx prednisone and doxycycline - Exacerbation in Jan 2019, hospitalized 02/05/19- 02/07/19, Dx COPD exacerbation, CAP, Tx azithromycin - [facility] hospitalization 01/11/19-01/17/19, b/l lower lobe pneumonia, L > R, treated with IV steroid, levofloxacin, and bronchodilators Tx. Discharged with prednisone, benzonatate, levofloxacin. - Continue Symbicort and Incruse as maintenance. Plan to switch to Trelegy per clinical document improvement educator - Continue albuterol HFA prn. - Continue DuoNeb for neb prn Tx. - Continue workin on smoking cessation. - Continue supplemental oxygen 4L - Keep appt with clinical document improvement educator - Strongly encouraged to get COVID vaccine Encounters Date Type Department Care Team Description 09/10/2024 [address] [place] [address] Cathleen Mo MD DME Wrist Brace 09/10/[address] [address] Cathleen Mo MD Xray chest 09/09/2024 Orders Only GENERIC EXTERNAL DATA DEPARTMENT Provider, Generic External Data 09/07/2024 Results Follow-Up [address] [address] Cathleen Mo MD XR Knee 3 Views Right 09/04/2024 1:00 PM EDT Office Visit [address] [address] Cathleen Mo MD Type 2 diabetes mellitus without complication, without long-term current use of insulin (CMS/HCC) (Primary Dx); Pneumonia of right lower lobe due to infectious organism; Acute pain of right knee; 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; Dyslipidemia; Primary hypertension; Bilateral carpal tunnel syndrome; Chronic obstructive pulmonary disease, unspecified COPD type (CMS/HCC); Chronic respiratory failure with hypoxia and hypercapnia (CMS/HCC) 09/04/2024 Travel 09/03/2024 Patient Outreach [address] [address] Cathleen Mo MD Care Coordination (Appt reminder) 08/31/[address] [address] Cathleen Mo MD chart prep 08/28/2024 3:20 PM EDT Office Visit [facility] [place] [address] Sandra Hoffman MD Dyspnea on exertion (Primary Dx); COPD exacerbation (CMS/HCC) 08/28/2024 Results Follow-Up [address] [address] Sandra Hoffman MD XR Chest 2 Views 08/28/2024 Orders Only [address] [address] Sandra Hoffman MD 08/27/2024 Patient Outreach [facility] [address] [place] [phone] Cathleen Mo MD Care Coordination (Appt reminder) 08/22/2024 Patient Outreach [address] [address] Cathleen Mo MD Care Coordination ([employer] graduate) 08/22/[address] [address] Cathleen Mo MD Care Management (C3CM- f/u call lvm) 08/15/2024 Patient Outreach [address] [address] Cathleen Mo MD Care Coordination (Appt reminder) 08/14/[address] [address] Cathleen Mo MD Type 2 diabetes mellitus without complication, without long-term current use of insulin ([facility]) 08/14/2024 Patient Outreach [address] [address] Cathleen Mo MD Care Coordination (Appt reminder) 08/10/2024 Refill [facility] [address] [place] [address] Laura Shirley DO 08/10/2024 Patient Outreach [address] [address] Cathleen Mo MD Care Coordination (PT1) 08/09/[address] [address] Cathleen Mo MD Care Management (C3CM- f/u call) 08/09/2024 Population Health Risk Score Community Care [facility] (C3) Department [address] [place] [id number] Provider, Population Health Generic 08/08/2024 Patient Outreach [facility] [address] [place] [phone] Cathleen Mo MD Care Coordination (Appt reminder/pt1) 07/31/[address] [address] Cathleen Mo MD Care Management (C3CM- f/u call) 07/31/[address] [address] Cathleen Mo MD 07/26/2024 3:00 PM EDT Office Visit [facility] [address] [address] Laura Shirley DO COPD with acute exacerbation (CMS/HCC) (Primary Dx) 07/26/2024 Telephone [facility] [address] [address] Laura Shirley DO [facility] 07/26[facility]20[facility] [address] [address] Laura Shirley DO Nurse Triage 07/26/2024 Travel 07/23/2024 Orders Only [address] [address] Cathleen Mo MD Metabolic dysfunction-associate d steatotic liver disease (MASLD) (Primary Dx); Type 2 diabetes mellitus without complication, without long-term current use of insulin (CMS/HCC) 07/19/[address] [address] Cathleen Mo MD Care Management (C3CM- f/u call) 07/11/2024 Patient Outreach [address] [address] Cathleen Mo MD Care Coordination (Appt reminder) 07/10/2024 Telephone [facility] [address] [address] Bert Banegas MD oygen return 07/09/[address] [address] Cathleen Mo MD Care Management (C3CM- f/u call) 07/09/2024 Patient Outreach [address] [address] Cathleen Mo MD Care Coordination (PT1) 07/04/2024 3:20 PM EDT Office Visit [facility] [address] [place] [address] Bert Banegas MD COPD exacerbation ([facility]) (Primary Dx); Chronic respiratory failure with hypoxia and hypercapnia (CMS/HCC) 07/04/[address] [facility] [address], [place] [phone] Cathleen Mo MD 07/03/2024 Patient Outreach [address] [address] Cathleen Mo MD Care Coordination (Appt reminder) 07/02/[address] [address] Elba Jiang RN 07/02/2024 Patient Outreach [address] [address] Cathleen Mo MD Care Coordination (triage) 07/02/[address] [address] Cathleen Mo MD Other specified hypothyroidism 07/01/[address] [phone] Cathleen Mo MD 06/29/2024 Patient Outreach [address] [address] Cathleen Mo MD Care Coordination (Appt reminder) 06/29/[address] [address] Cathleen Mo MD Care Management (C3CM- f/u call lvm) from Last 3 Months Immunizations Immunization [...] Date Smoking Tobacco: Some Days Cigarettes 1.9 36.5 Started: 1988 Passive Smoke Exposure: Current Smokeless [...] 106 09/04/2024 1:17 PM EDT Temperature 36.8 C (98.2 F) 09/04/2024 1:17 PM EDT Respiratory Rate 16 09/04/2024 1:17 PM EDT [...] Description 11/06/2024 1:00 PM EDT Office Visit [facility] [address] [place] [address] Silvia Cameron, OD [address] [place] [address] Health Maintenance Due Date Last Done Comments [...] 07/07/2022 SDOH Screening 09/04/2025 09/04/2024 Tobacco Screening 09/10/2025 09/10/2024 Colorectal Cancer Screening 03/26/2027 FIT DNA/Cologuard 03/26/2027 [...] Procedure Name Priority Date/Time Associated Diagnosis Comments VENOUS BLOOD GAS Routine 09/09/2024 7:28 PM EDT COMPREHENSIVE METABOLIC PANEL Routine 09/09/2024 7:20 PM EDT HIGH SENSITIVITY TROPONIN I Routine 09/09/2024 7:20 PM EDT XR CHEST 1 VIEW Routine 09/09/2024 6:23 PM EDT SLIDE REVIEW Routine 09/09/2024 5:41 PM EDT CBC WITH AUTO DIFFERENTIAL Routine 09/09/2024 5:41 PM EDT B TYPE NATRIURETIC PEPTIDE (BNP) Routine 09/09/2024 5:41 PM EDT LACTIC ACID Routine 09/09/2024 5:41 PM EDT XR KNEE 3 VIEWS RIGHT Routine 09/06/2024 1:10 PM EDT Acute pain of right knee XR CHEST 2 VIEWS Routine 09/06/2024 1:06 PM EDT Pneumonia of right lower lobe due to infectious organism POCT GLYCATED HEMOGLOBIN, TOTAL Routine 09/04/2024 1:19 PM EDT Type 2 diabetes mellitus without complication, without long-term current use of insulin ([facility]) POCT GLUCOSE Routine 09/04/2024 1:19 PM EDT Type 2 diabetes mellitus without complication, without long-term current use of insulin (CMS/HCC) XR CHEST 2 VIEWS Routine 08/28/2024 3:26 PM EDT COPD exacerbation (CMS/HCC) XR CHEST 2 VIEWS STAT 07/26/2024 3:17 PM EDT COPD with acute exacerbation (CMS/HCC) AMB REFERRAL TO AUDIOLOGY Routine 07/12/2024 Sensorineural hearing loss (SNHL) of both ears LIPID PANEL WITH REFLEX TO DIRECT LDL Routine 06/12/2024 2:10 PM EDT Dyslipidemia LAB COLOGUARD COLON CANCER SCREEN Routine 03/26/2024 11:10 AM [...] Relevant to Health Maintenance Results * (ABNORMAL) VENOUS BLOOD GAS (09/09/2024 7:28 PM EDT) VBG pH 7.40 7.32 - 7.43 [facility] Comment:METER #: [id number] additional_comment: Cb fioc VBG PCO2 77 mmHg [facility] Comment:METER #: [id number] additional_comment: Cb fioc VBG PO2 50 mmHg [facility] Comment:METER #: [id number] additional_comment: Cb fioc VBG Base Excess 19.2 mmol/L [facility] Comment:METER #: [id number] additional_comment: Cb fioc VBG HCO3 48(H) 22 - 26 mmol/L [facility] Comment:METER #: [id number] additional_comment: Cb fioc O2 Sat, Juan 83.0 % [facility] Comment:METER #: [id number] additional_comment: Cb fioc 09/09/2024 7:2 8 PM EDT 09/09/2024 7:33 PM EDT us Generic External Data Provider LAB BLOOD ORDERAB LES Final Result Performing Organization Address [facility] Co de Phone Number [facility] [address] [place] [phone] * High Sensitivity Troponin I (09/09/2024 7:20 PM EDT) [facility] TROPONIN I HIGH SENSITIVITY 3.4 <3.5 - 17.0 ng/L [facility] Comment:The [place] high sens itivity Troponin-I results should beused in conjunction with other diagnostic information suchas ECG, clinical observations and information, and patientsymptoms to aid in the diagnosis of [facility]. 09/09/2024 7:20 PM EDT 09/09/2024 7:23 PM EDT us Generic External Data Provider LAB BLOOD ORDERAB LES Final Result Performing Organization Address [facility] Co de Phone Number [facility] [address] [place] [phone] * (ABNORMAL) Comprehensive Metabolic Panel (09/09/2024 7:20 PM EDT) [facility] Sodium 143 135 - 145 mmol/L [facility] Potassium 4.9 3.3 - 5.1 mmol/L [facility] Comment:Slight Hemolysis.Int erpret result with caution. Chloride 94(L) 96 - 108 mmol/L [facility] Carbon Dioxide 40(HH) 22 - 29 mmol/L [facility] Comment:Critical value for t est(s):BIC Results called to and readback by:PEYTON Person calling: BON Date: 09/09/24 Time:1953 Anion Gap 14 12 - 20 [facility] Urea Nitrogen (BUN) 8(L) 9 - 16 mg/dL [facility] Creatinine, Serum 0.70 0.5 - 1.4 mg/dL [facility] Creatinine Clr Calc Pharmacy 93.9 [facility] Comment:Provided height and weight: 165.1 cm,82.3 kg.eGFR (calculated from the MDRD study equation) and eCrCl(calculated from the Cockcroft-Gault equation) are based ondifferent parameters and may not yield comparable results.If eCrCl result is absurd, please check patient'sheight/weight. Estimated Glomerular Filt Rate >60 [facility] Comment:Chronic Kidney Disea se: Estimated GFR < 60 mL/min/1.56w6Ufwbmx Kidney Disease: Estimated GFR < 15 mL/min/1.73m2 Glucose 114 60 - 115 mg/dL [facility] Calcium 9.3 8.4 - 10.2 mg/dL [facility] Bilirubin, Total 0.5 0.0 - 1.0 mg/dL [facility] Aspartate Amino Transferase 31 5 - 31 U/L [facility] Comment:Slight Hemolysis.Int erpret result with caution. Alanine Aminotransferase 15 0 - 31 U/L [facility] Total Protein 7.2 6.5 - 8.0 g/dL [facility] Albumin Level 4.0 3.5 - 5.0 g/dL [facility] Alkaline Phosphatase 83 39 - 117 U/L [facility] 09/09/2024 7:20 PM EDT 09/09/2024 7:23 PM EDT us Generic External Data Provider LAB BLOOD ORDERAB LES Final Result [facility] [address] [place] [phone] * XR Chest 1 View (09/09/2024 6:23 PM EDT) Anatomical Region Laterality Modality Chest Radiographic Evon ging 09/09/2024 6:23 PM EDT Narrative 09/09/2024 6:25 PM EDT [address] [address] XRay Report Signed Patient: Sandra Rose MR# : [id number] : 1965 Acct:[id number] Age/Sex: 58 / F ADM Date: 09/09/24 Loc: HO.ED Attending Dr: Ordering Physician: Joel Roman MD Date of Service: 09/09/24 Procedure(s): XR chest 1V Accession Number(s): [id number] cc: [facility]; Joel Roman MD CLINICAL HISTORY: Shortness of breath 1 view chest x-ray Comparison: CR - XR CHEST 1V - 04/02/24 06:01 EST Findings: No focal lung opacity. Small area of scarring or atelectasis at the right lung base. No effusion or pneumothorax. Mild cardiomegaly. No acute fracture. IMPRESSION: 1. No acute findings. This document has been electronically signed by: Papa Novak MD on 09/09/2024 18:23:11 Dictated By: Papa Novak MD Signed By: <Electronically signed by Papa Novak MD in OV> 09/09/241823 DD/ 22 TD/TT: 09/09/241822 Sr. Vendor Management Associate: Procedure Note Donotuseinterpreter, Image - 09/09/[address] [address] XRay Report Signed Patient: Sandra Rose DMR# : [id number] : 1965Acct:[id number] Age/Sex: 58 / FADM Date: 09/09/24 Loc: HO.ED Attending Dr: Ordering Physician: Joel Roman MD Date of Service: 09/09/24 Procedure(s): XR chest 1V Accession Number(s): [id number] cc: [facility]; Joel Roman MD CLINICAL HISTORY: Shortness of breath 1 view chest x-ray Comparison: CR - XR CHEST 1V - 04/02/24 06:01 EST Findings: No focal lung opacity. Small area of scarring or atelectasis at the right lung base. No effusion or pneumothorax. Mild cardiomegaly. No acute fracture. IMPRESSION: 1. No acute findings. This document has been electronically signed by: Papa Novak MD on 09/09/2024 18:23:11 Dictated By: Papa Novak MD Signed By: <Electronically signed by Papa Novak MD in OV> 09/09/241823 DD/ 22 TD/TT: 09/09/241822 Sr. Vendor Management Associate: [facility] External Provider IMG XR PROCEDURES Edited Result - Final * Slide Review (09/09/2024 5:41 PM EDT) Slide Review VERIFIED [facility] 09/09/2024 5:41 PM EDT 09/09/2024 5:45 PM EDT Generic External Data Provider LAB BLOOD ORDERAB LES Final Result [facility] [address] [place] [phone] * (ABNORMAL) CBC auto differential (09/09/2024 5:41 PM EDT) White Blood Count 9.4 4.8 - 10.8 X10*3/uL [facility] Red Blood Count 4.88 4.20 - 5.50 X10*6/uL [facility] Hemoglobin 14.0 12.0 - 16.0 g/dl [facility] Hematocrit 45.6 37.0 - 47.0 % [facility] Mean Corpuscular Volume 93.4 80.0 - 98.0 fL [facility] Mean Corpuscular Hemoglobin 28.7 27.0 - 33.0 pg [facility] Mean Corpuscular HGB Conc 30.7(L) 31.0 - 35.0 g/dl [facility] Red Cell Distribution Width 14.6 11.0 - 16.0 % [facility] Platelet Count 113(L) 160 - 400 X10*3/uL [facility] Mean Platelet Volume 11.2 9.4 - 12.3 fL [facility] Neutrophils Percent Auto 69.2 45 - 73 % [facility] Imm Gran Pct Auto 0.2 0.0 - 0.4 % [facility] Lymphocytes Percent Auto 22.9 20 - 40 % [facility] Monocytes Percent Auto 5.2 2 - 11 % [facility] Eosinophils Percent Auto 2.0 0 - 4 % [facility] Basophils Percent Auto 0.5 0 - 2 % [facility] NRBC Pct Auto 0.0 0.0 - 0.2 /100WBC [facility] Neutrophils Absolute Auto 6.5 2.0 - 8.3 x10*3/uL [facility] Imm Gran Abs Auto 0.02 0.00 - 0.03 X10*3/uL [facility] Lymphocytes Absolute Auto 2.2 1.2 - 4.9 X10*3/uL [facility] Monocytes Absolute Auto 0.5 0.1 - 1.2 X10*3/uL [facility] Eosinophils Absolute Auto 0.2 0.0 - 0.4 X10*3/uL [facility] Basophils Absolute Auto 0.1 0.0 - 0.2 X10*3/uL [facility] NRBC Abs Auto 0.000 0.0 - 0.012 X10*3/uL [facility] 09/09/2024 5:41 PM EDT 09/09/2024 5:45 PM EDT us Generic External Data Provider LAB BLOOD ORDERAB LES Edited Result - Final Performing Organization Address [facility] Co de Phone Number [facility] [address] [place] [phone] * B Type Natriuretic Peptide (BNP) (09/09/2024 5:41 PM EDT) B Type Natriuretic Peptide <10 <100 pg/mL [facility] 09/09/2024 5:41 PM EDT 09/09/2024 5:45 PM EDT us Generic External Data Provider LAB BLOOD ORDERAB LES Final Result Performing Organization Address [facility] Phone Number [facility] [address] [place] [phone] * Lactic Acid (09/09/2024 5:41 PM EDT) Lactic Acid 0.6 0.5 - 2.0 mmol/L [facility] 09/09/2024 5:41 PM EDT 09/09/2024 5:45 PM EDT us Generic External Data Provider LAB BLOOD ORDERAB LES Final Result Performing Organization Address [facility] de Phone Number [facility] [address] [place] [phone] * XR Knee 3 Views Right (09/06/2024 1:10 PM EDT) Anatomical Region Laterality Modality Lower Extremities, Knee Right Radiogra phic Imaging 09/06/2024 1:10 PM EDT Narrative 09/06/2024 2:38 PM EDT [facility] [address] [place] [address] XRay Report Signed Patient: Sandra Rose D MR# : [id number] : 1965 Acct:[id number] Age/Sex: 58 / F ADM Date: 09/06/24 Loc: HO.HEAVENLYCX Attending Dr: Cathleen Mo MD Ordering Physician: Cathleen Mo MD Date of Service: 09/06/24 Procedure(s): XR knee RT 3V Accession Number(s): [id number] cc: Cathleen Mo MD EXAMINATION: XR KNEE, [...] Jerman Flores MD 09/06/2024 02:35 PM EDT Dictated By: Jerman Louise MD Signed By: <Electronically signed by Jerman Herrera MD in OV> 09/06/24 1435 DD/ 1310 TD/TT: 09/06/24 1400 Sr. Vendor Management Associate: Procedure Note Donotuseinterpreter, Image - 09/06/2024 [place] [address] XRay Report Signed Patient: Sandra Rose DMR# : [id number] : 1965Acct:[id number] Age/Sex: 58 / FADM Date: 09/06/24 Loc: HO.HEAVENLYCX Attending Dr: Cathleen Mo MD Ordering Physician: Cathleen Mo MD Date of Service: 09/06/24 Procedure(s): XR knee RT 3V Accession Number(s): [id number] cc: Cathleen Mo MD EXAMINATION: XR KNEE, [...] 09/06/24 1435 DD/ 1310 TD/TT: 09/06/24 1400 Sr. Vendor Management Associate: us Cathleen Mo MD IMG XR PROCEDURES Final Result * XR Chest 2 Views (09/06/2024 1:06 PM EDT) Only the most recent of3 resultswithin the time period is included. Anatomical Region Laterality Modality Chest Radiographic Evon ging 09/06/2024 1:06 PM EDT Narrative 09/06/2024 2:36 PM EDT [address] [address] XRay Report Signed Patient: Sandra Rose MR# : [id number] : 1965 Acct:[id number] Age/Sex: 58 / F ADM Date: 09/06/24 Loc: .HHCX Attending Dr: Cathleen Mo MD Ordering Physician: Cathleen Mo MD Date of Service: 09/06/24 Procedure(s): XR chest 2V Accession Number(s): [id number] cc: Cathleen Mo MD EXAMINATION: XR CHEST [...] Jerman Flores MD 09/06/2024 02:33 PM EDT RP Dictated By: Jerman Louise MD Signed By: <Electronically signed by Jerman Herrera MD in OV> 09/06/24 1433 DD/ 1306 TD/TT: 09/06/24 1400 Sr. Vendor Management Associate: Procedure Note Donotuseinterpreter, Image - 09/06/[address] [address] XRay Report Signed Patient: Sandra Rose DMR# : [id number] : 1965Acct:[id number] Age/Sex: 58 / FADM Date: 09/06/24 Loc: .HHCX Attending Dr: Cathleen Mo MD Ordering Physician: Cathleen Mo MD Date of Service: 09/06/24 Procedure(s): XR chest 2V Accession Number(s): [id number] cc: Cathleen Mo MD EXAMINATION: XR CHEST [...] Jerman Flores MD 09/06/2024 02:33 PM EDT RP Dictated By: Jerman Louise MD Signed By: <Electronically signed by Jerman Herrera MDin OV> 09/06/24 1433 DD/ 1306 TD/TT: 09/06/24 1400 Sr. Vendor Management Associate: Cathleen Mo MD IMG XR PROCEDURES Final Result * (ABNORMAL) POCT HGB A1C (09/04/2024 1:19 PM EDT) Hemoglobin A1C 6.5(A) 4.0 - 6.0 % QC Media Lot # [id number] Lot# Expiration Date Blood 09/04/2024 1:19 PM EDT Cathleen Mo MD POINT OF CARE TEST ENTER/EDIT OR DERABLES Final Result * (ABNORMAL) POCT Glucose (09/04/2024 1:19 PM EDT) Glucose Blood, POC 55(A) 60 - 200 mg/dL QC Media Lot # [id number] Lot# Expiration Date Blood Capillary blood specimen / Unknown 09/04/2024 1:19 PM EDT Cathleen Mo MD POINT OF CARE TEST ENTER/EDIT OR DERABLES Final Result * Referral to Audiology (07/12/2024) us Cathleen Mo MD OUTPATIENT REFERRAL ORDERABLES F inal Result * (ABNORMAL) Lipid Panel with Reflex to Direct LDL (06/12/2024 2:10 PM EDT) Triglycerides 269(H) <150 mg/dL [facility] Comment:Desirable Triglyceri de: less than 150 mg/dLBorderline High Triglyceride 150-199 mg/dLHigh Triglyceride: 200-499 mg/dLVery High Triglyceride: greater than or equal to 5OO mg/dL Cholesterol 282(H) <200 mg/dL [facility] Comment:Desirable Cholestero l: less than 200 mg/dLBorderline High Cholesterol: 200-239 mg/dLHigh Cholesterol: greater than 239 mg/dL LDL Cholesterol Calculated 182(H) <100 mg/dL [facility] Comment:Desirable LDL: less than 100 mg/dLNear Optimal/Above Optimal LDL: 110- 129 mg/dLBorderline High LDL: 130-159 mg/dLHigh LDL: 160-189 mg/dLVery High LDL: greater than or equal to 190 mg/dL HDL Cholesterol 47 >40 mg/dL [facility] Comment:Desirable HDL: great er than 40 mg/dL Note: This HDL assay may give artificially low results in patients with liver disease. Blood 06/12/2024 2:10 PM EDT 06/12/2024 4:45 PM EDT us Cathleen Mo MD LAB BLOOD ORDERABLES Final Resul t [facility] [address] [place] [phone] [phone] * Cologuard?? colon cancer screening (03/26/2024 11:10 AM EST) Cologuard Result Negative Negative 03/30/19 5:10 PM EST [facility] (CLIA #:[id number]) Comment: NEGATIVE TEST RESULT. A negative Cologuard result indicates a low likelihood that a colorectal cancer (CRC) or advanced adenoma (adenomatous polyps with more advanced pre-malignant features) is present. The chance that a person with a negative Cologuard test has a colorectal cancer is less than 1 in 1500 (negative predictive value >99.9%) or has an advanced adenoma is less than 5.3% (negative predictive value 94.7%). These data are based on a prospective cross-sectional study of 10,000 individuals at average risk for colorectal cancer who were screened with both Cologuard and colonoscopy. (Martha North al, N Engl J Med 2014;370(14):0274-3903) The normal value (reference range) for this assay is negative. COLOGUARD RE-SCREENING RECOMMENDATION: Periodic colorectal cancer screening is an important part of preventive healthcare for asymptomatic individuals at average risk for colorectal cancer. Following a negative Cologuard result, the [place] Cancer Society and U.S. Multi-Society Task Force screening guidelines recommend a Cologuard re-screening interval of 3 years. References: [place] [employer] Guideline for Colorectal Cancer Screening: https://www.cancer.org/cancer/olzfk-euulni-fkraqa/cjvdvmkmr-cttgemqyj-azihpcg/ac s-rec ommendations.html.; Holland DK, Ivis CR, Stalin LarkinK, Colorectal Cancer Screening: Recommendations for Physicians and Patients from the U.S. Multi-Society Task Force on Colorectal Cancer Screening , Am J Gastroenterology 2017; 112:3859-4389. TEST DESCRIPTION: Composite algorithmic analysis of stool DNA-biomarkers with hemoglobin immunoassay. Quantitative values of individual biomarkers are not [...] (Martha North al, N Engl J Med 2014;370(14):2575-7587.) Cologuard may produce a false negative or false positive result (no colorectal cancer or precancerous polyp present at colonoscopy follow up). A negative Cologuard test result does not guarantee the absence of CRC or advanced adenoma (pre-cancer). The current Cologuard screening interval is every 3 years. ([place] Cancer Society and U.S. Multi-Society Task Force). Cologuard performance data in a 10,000 patient pivotal study using colonoscopy as the reference method can be accessed at the following location: www.[employer]results. Additional description of the Cologuard test process, warnings and precautions can be found at www.[employer].com. Stool specimen (specimen) 03/26/2024 11:10 AM EST 03/27/2024 11:53 AM EST Cathleen Mo MD LAB MOLECULAR DIAGNOSTICS ORDERA BLES Final Result [facility] (CLIA #:[id number]) [place] [address], * Albumin, Random Urine W/Creatinine (11/08/2023 1:45 PM EDT) Creatinine, Urine 67.59 mg/dL [facility] Microalbumin Urine <5.0 mg/L [facility] Microalbum Creatinine Ratio Ur TNP <30 ug/mg cr [facility] Comment:Unable to calculate albumin/creatinine ratio due to lowmicroalbumin or creatinine result. Urine 11/08/2023 1:45 PM EDT 11/08/2023 3:56 PM EDT Cathleen Mo MD LAB URINE ORDERABLES Final Resul t Performing Organization Address [facility] Co de Phone Number [facility] [address] [place] [phone] * BI Mammogram Screening Tomosynthesis Bilateral (07/13/2023 11:10 AM EDT) Anatomical Region Laterality Modality Breast Bilateral Mammography 07/13/2023 11:1 0 AM EDT Narrative 07/18/2023 3:46 PM EDT [facility] [address] [place] [address] Mammography Report Signed Patient: Sandra Rose MR# : [id number] : 1965 Acct:[id number] Age/Sex: 57 / F ADM Date: 07/13/23 Loc: LONNIE Attending Dr: Cathleen Mo MD Ordering Physician: Cathleen Mo MD Results: 1Negative Date of Service: 04/17/24 Follow Up: 1 Year From Orig inal Mammogram Procedure(s): MM tomosynthesis screening BI Accession Number(s): [id number] cc: Cathleen Mo MD EXAMINATION: MM SCREENING [...] in OV> 07/18/23 1543 DD/ 1110 TD/TT: Sr. Vendor Management Associate: Procedure Note Donotuseinterpreter, Image - 07/18/2023 [facility] [address] [place] [address] Mammography Report Signed Patient: Sandra Rose [facility]# : [id number] : 1965Acct:[id number] Age/Sex: 57 / FADM Date: 07/13/23 Loc: LONNIE Attending Dr: Cathleen Mo MD Ordering Physician: Cathleen Mo MDResults: 1Negative Date of Service: 07/13/23Follow Up: 1 Year From Orig inal Mammogram Procedure(s): MM tomosynthesis screening BI Accession Number(s): [id number] cc: Cathleen Mo MD EXAMINATION: MM SCREENING [...] in OV> 07/18/23 1543 DD/ 1110 TD/TT: Sr. Vendor Management Associate: us Cathleen Mo MD IMG BI PROCEDURES Final Result * HIV-1/2 Antigen and Antibodies, Fourth Generation, with Reflexes (05/12/2023 11:06 AM EST) HIV AB/AG Nonreactive Nonreactive [facility] Comment:HIV-1 p24 Ag and/or HIV-1/HIV-2 Ab not detected.A test result that is nonreactive does not exclude thepossibility of exposure to or infection with HIV-1 and/orHIV-2. Nonreactive results in this assay for individualswith prior exposure to HIV-1 and/or HIV-2 may be due toantigen and antibody levels that are below the limit ofdetection of this assay.The [employer] HIV Ag/Ab Combo assay result andsupplemental assay results should be interpreted inconjunction with the patient's clinical presentation,history and other laboratory results. If the results areinconsistent with clinical evidence, additional testing issuggested to confirm the result. Blood Venous blood specimen / Unknown 05/12/2023 11:06 AM EST 05/12/2023 1:03 PM EST us Cathleen Mo MD LAB BLOOD ORDERABLES Final Resul t [facility] [address] [place] [address] [phone] * Thinprep TIS PAP And HPV mRNA E6/E7 With Reflex To HPV 16,18/45 (04/29/2022 11:38 AM EST) Clinical Information: ROUTINE PAP [facility] LMP: NONE GIVEN [employer] Prev. PAP: NONE GIVEN [employer] [facility] Diagnost Prev. BX: NONE GIVEN [employer] [facility] [facility] SOURCE: None given [facility] Statement Of Adequacy: [facility] Comment: Satisfactory for evaluation. Endocervical/transformation zone component present. Interpretation/ Result: Negative for intraepithelial lesion or malignancy. [facility] COMMENT: This Pap test has been evaluated with computer assisted technology. [facility] [employer] Cytotechnologis t: [employer] Comment: SXA, CT(ASCP) CT screening location: [place] [address] Review Cytotechnologis t: [facility] [employer] Comment: JNA, CT(ASCP) CT screening location: [place] [address] (Always Message) [employer] Comment: EXPLANATORY NOTE: The Pap is a [...] HPV nRNA E6/E7 Not Detected Not Detected [facility] Comment: Methodology: Legal Paraprofessional-Mediated Amplification This assay detects E6/E7 viral messenger RNA (mRNA) from 14 high-risk HPV types (16,18,31,33,35,39,45,51,52,56,58,59,66,68). Cervical sources are required for HPV testing. If a vaginal source from a patient who has had a total hysterectomy with removal of cervix was submitted, please contact the testing laboratory for alternative testing options. For additional information, please refer to http://education.[employer]ed[employer]is/faq/ZMH017z9 (This link if provided for information/ educational purposes only.) 04/29/2022 11:3 8 AM EST 04/30/2022 9:58 AM EST Narrative [facility] - 05/05/2022 2:36 PM EST FASTING: UNKNOWN Cathleen Mo MD LAB PATHOLOGY ORDERABLES Final R esult [facility] [address], [place] [address] [facility] [address] [facility], ([address]) [place] [address] from Last 3 Months or Most Recently Relevant to Health Maintenance Insurance [facility] ST[facility] Care Teams Dag Sprayer Relationship Specialty Start Date End Date Cathleen Mo MD [address] [place] [address] PCP - General Family Medicine 03/28/18 Tad Baez, LaurenD [address] [place] [address] Pharmacist Internal Medicine 03/16/24 [facility] 05/04/17
== END 2024-08-28 00:01 | disposition home or self-care (01) ==
LOC: HO.XRAY
PROVIDERS: Visit Provider Internal Medicine
DX: J18.9 Pneumonia, unspecified organism (principal); J44.1 Chronic obstructive pulmonary disease with (acute) exacerbation
CPT/HCPCS: 71046

== ENCOUNTER → 2024-08-28 15:26 | Outpatient (BNV) | payer MEDICAID, SELFPAY | PROVIDERS: Visit Provider Radiology Diagnostic Radiology | DX: J18.9 Pneumonia, unspecified organism (principal) | CPT/HCPCS: 71046 ==

== ENCOUNTER 2024-09-06 13:36 | Outpatient (REF) | payer MEDICAID, SELFPAY ==
--- NOTE | ~2024-09-06 | XR_ITS ---
EXAMINATION: XR CHEST CLINICAL INFORMATION: right lower lobe pneumonia, follow-up COMPARISON: August 28, 2024. TECHNIQUE: 2 views of the chest were obtained. FINDINGS: Linear opacities in the right middle lung lobe and lingula. No pleural effusion. No pneumothorax. Cardiomediastinal silhouette size is normal. Mild multilevel thoracic spondylosis. Degenerative changes in the acromioclavicular joints, right greater than the left side. XR/XR chest 2V IMPRESSION: Overall improvement. Electronically signed by: Jerman Flores MD 09/06/2024 02:33 PM EDT
--- NOTE | ~2024-09-06 | XR_ITS ---
EXAMINATION: XR KNEE, RIGHT CLINICAL INFORMATION: right knee pain after a fall COMPARISON: None available. TECHNIQUE: AP oblique and lateral views of the right knee. FINDINGS: No acute cortical disruption or malalignment. Joint space narrowing involving mostly the medial compartment associated sclerosis along the articular surface. No suprapatellar bursa joint effusion. No lytic or blastic lesions. XR/XR knee RT 3V IMPRESSION: No acute fracture or dislocation. Mild osteoarthrosis, medial compartment. Electronically signed by: Jerman Flores MD 09/06/2024 02:35 PM EDT
--- OUTSIDE RECORDS SUMMARY | 2024-09-06 15:54 | XMS_ITS | Clinical Summary ---
Author Organization [employer] Address [address] [place] [address] Care Team Providers [facility] Executive Director Name Role Phone Cathleen Mo MD Primary Care Provider [phone] Tad Baez PharmD Unavailable [phone] Allergies Active Allergy Reactions Criticality Noted Date [...] two times per day 1 kit Active famotidine (Pepcid) 40 MG tablet Take [...] MOUTH AT BEDTIME 90 tablet 3 Active Varenicline Tartrate, Starter, 0.5 [...] hours as needed for cravings. 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 45 tablet 1 Active sertraline (Zoloft) 25 MG tablet Take 25 mg by mouth Once per day. Active levothyroxine (Synthroid, Levoxyl) 25 MCG tabletIndications :Other specified hypothyroidism TAKE 1 TABLET BY MOUTH EVERY MORNING 90 tablet Active amLODIPine (Norvasc) 5 MG tablet TAKE 1 TABLET BY MOUTH EVERYDAY AT NOON 90 tablet Active furosemide (Lasix) 20 MG tablet TAKE 1 TABLET BY MOUTH TWICE DAILY 180 tablet Active cetirizine (ZyrTEC) 10 MG tablet [...] not crush, chew, or split. 30 tablet 2025 Active Alcohol Swabs (Alcohol Prep) 70 % padsIndications:T ype 2 diabetes mellitus without complication, without long-term current use of insulin (CMS/HCC) USE DIRECTED TWICE DAILY 100 each Active glucose blood (FREESTYLE LITE) test stripIndications: Type 2 diabetes mellitus without complication, without long-term current use of insulin (CMS/HCC) TEST BLOOD SUGAR TWICE DAILY 100 strip Active TRUEplus Lancets 33G miscIndications:T ype 2 diabetes mellitus without complication, without long-term current use of insulin (CMS/HCC) TEST BLOOD SUGAR TWICE DAILY 100 each 11 025 Active acetaminophen (Tylenol Extra Strength) 500 MG tabletIndications :COPD exacerbation (CMS/HCC) Take 2 tablets (1,000 mg) by mouth every 8 (eight) hours if needed for mild pain or moderate pain. 180 tablet 025 Active glucose blood test strip Use to check blood sugar two times per day 100 each 12 024 2024 Discontinued FreeStyle lancets 1 each by Other route 2 times daily. Use bid, dx type 2 diabetes 60 each 024 2024 Discontinued Alcohol Swabs pads 1 each 2 times daily. 100 each 024 2024 Discontinued acetaminophen (Tylenol Extra Strength) 500 MG tablet Take 2 tablets (1,000 mg) by mouth every 8 (eight) hours if needed for mild pain or moderate pain. 180 tablet 3 024 2024 Discontinued(R eorder (will not trigger notification to Pharmacy)) azithromycin (Zithromax) 250 MG tablet Take 2 tablets PO daily x one day then 1 tablet PO daily x 4 days 6 tablet 025 2024 Discontinued(T herapy completed) predniSONE (Deltasone) 10 MG tablet Take 6 tabs PO daily x 2 days then 5 tabs PO daily x 2 days then 4 tabs PO daily x 2 days then 3 tabs PO daily x 2 days then 2 tabs PO daily x 2 days then 1 tab PO daily x 2 days then 1/2 tab PO daily x 2 days 43 tablet 025 2024 Discontinued(M ed list cleanup (will not trigger notification to Pharmacy)) predniSONE (Deltasone) 20 MG tabletIndications :COPD exacerbation (CMS/HCC) Take 3 tablets (60 mg) by mouth Once per day for 5 days. 15 tablet 025 2024 azithromycin (Zithromax) 250 MG tabletIndications :COPD exacerbation (CMS/HCC) Take 2 tabs PO daily x 1d then 1 tab PO daily on D2 to D5 6 tablet 025 2024 Discontinued benzonatate (Tessalon Perles) 100 MG capsuleIndication s:COPD exacerbation (CMS/HCC) Take 1 capsule (100 mg) by mouth if needed in the morning, at noon, and at bedtime for cough for up to 7 days. Do not crush or chew. 20 capsule 025 2024 levoFLOXacin (Levaquin) 750 MG tabletIndications :Pneumonia of right lower lobe due to infectious organism Take 1 tablet (750 mg) by mouth Once per day for 7 days. 7 tablet 025 2024 Discontinued(M ed list cleanup (will not trigger notification to Pharmacy)) Active Problems Problem Noted Date Diagnosed Date Carpal tunnel syndrome 09/04/2024 COPD exacerbation 08/28/2024 Assessment & Plan (08/28/2024 3:21 PM EDT): I will prescribe 5 days of Z pack and prednisone 60mg daily I will prescribe tessalon pearls for cough and acetaminophen for general discomfort CXR ordered to r/o underline pneumonia ED precautions reviewed Dyspnea on exertion 08/28/2024 Assessment & Plan (08/28/2024 3:20 PM EDT): I will order echocardiogram I will contact patient back with results Chronic neck pain 06/16/2024 Assessment & Plan [...] leg, and APAP prn - referred to fabric cutter as requested by patient's caregiver - prescribe a cane to offload the weight Assessment & Plan (10/12/2023 11:52 AM EDT): - s/p fall - X-ray on 10/04/23 shows mildly displaced fracture of 2nd distal phalanx - continue off weight, ice, elevate leg, and APAP prn - refer to fabric cutter as requested by patient's caregiver Popliteal cyst, right 10/02/2023 Assessment & Plan (10/11/2023 11:43 AM EDT): -seen on US during recent admission -repeat US Assessment & Plan (10/02/2023 4:46 PM EDT): -seen on US during recent admission -repeat US Abdominal bloating 09/27/2023 Centrilobular emphysema 09/27/2023 Overview (06/16/2024): - Tire Mounter: [facility], last seen on 06/07/24 - Severe exacerbation [...] supplemental oxygen 4L-6L; recommended to discuss with electric vehicle electrician regarding to oxygen concentrator. - Anticipate to start BiPAP 21/7 mmHg - Strongly encouraged to get COVID vaccine - Keep appt with electric vehicle electrician and resume pulmonary rehab. -Treatment Hx: Budesonide - Formoterol (Symbicort) was changed to Wixela in Jan 2023. Plan to try fluticasone / umeclidinium / vilanterol (Trelegy) per electric vehicle electrician. Colon cancer screening 09/27/2023 Assessment & Plan [...] Plan (06/16/2024 6:01 AM EDT): Following with [facility], last seen in Nov 2023 FIB-4 index 1.78 Check the status of US (advised to call the office with healthcare marketer) Avoid hepatotoxic drugs Maintain non-alcohol life Follow up with GI as scheduled Assessment & Plan (05/03/2024 5:15 PM EST): Following with [facility], last seen in Nov 2023 FIB-4 index 1.78 Check the status of US (advised to call the office with healthcare marketer) Avoid hepatotoxic drugs Maintain non-alcohol life Follow up with GI as scheduled Assessment & Plan (03/26/2024 5:03 PM EST): Following with [facility], last seen in Nov 2023 FIB-4 index 1.78 Check the status of US (advised to call the office with healthcare marketer) Avoid hepatotoxic drugs Maintain non-alcohol life Follow up with GI as scheduled Assessment & Plan (02/06/2024 5:37 AM EST): Following with [facility], last seen in Nov 2023 FIB-4 index 1.78 Check the status of US (advised to call the office with healthcare marketer) Avoid hepatotoxic drugs Maintain non-alcohol life Follow up with GI as scheduled Assessment & Plan (11/29/2023 11:32 AM EDT): Following with [facility], last seen in May 2023 FIB-4 index 1.78 Check the status of US Avoid hepatotoxic drugs Maintain non-alcohol life Follow up with GI as scheduled Assessment & Plan (10/11/2023 11:42 AM EDT): Following with [facility], last seen in May 2023 FIB-4 index 1.78 Check the status of US Avoid hepatotoxic drugs Maintain non-alcohol life Follow up with GI as scheduled Assessment & Plan (10/02/2023 4:34 PM EDT): Following with [facility], last seen in May 2023 FIB-4 index 1.78 Check the status of US Avoid hepatotoxic drugs Maintain non-alcohol life Follow up with GI as scheduled Assessment & Plan (08/27/2023 6:55 AM EDT): Following with [facility], last seen in May 2023 FIB-4 [...] & Plan (06/16/2024 5:58 AM EDT): - Tire Mounter: [facility], last seen on 06/07/24 - Severe [...] supplemental oxygen 4L-6L; recommended to discuss with electric vehicle electrician regarding to oxygen concentrator. - Anticipate to start BiPAP 21/7 mmHg - Strongly encouraged to get COVID vaccine - Keep appt with electric vehicle electrician and resume pulmonary rehab. -Treatment Hx: Budesonide - Formoterol (Symbicort) was changed to Wixela in Jan 2023. Plan to try fluticasone / umeclidinium / vilanterol (Trelegy) per electric vehicle electrician. Assessment & Plan (05/03/2024 5:14 PM EST): - Tire Mounter: [facility], last seen on 12/29/23 - Severe [...] supplemental oxygen 4L-6L; recommended to discuss with electric vehicle electrician regarding to oxygen concentrator. - Strongly encouraged to get COVID vaccine - Keep appt with electric vehicle electrician and resume pulmonary rehab. -Treatment Hx: Budesonide - Formoterol (Symbicort) was changed to Wixela in Jan 2023. Plan to try Trelegy. Assessment & Plan (04/02/2024 6:16 AM EST): - Tire Mounter: [facility], last seen on 11/18/23 - Severe [...] supplemental oxygen 4L-6L; recommended to discuss with electric vehicle electrician regarding to oxygen concentrator. - Strongly encouraged to get COVID vaccine - Keep appt with electric vehicle electrician and resume pulmonary rehab. -Treatment Hx: Budesonide - Formoterol (Symbicort) was changed to Wixela in Jan 2023. Plan to try Trelegy. -Since she seldom sees her [facility] electric vehicle electrician, and she is well-known to [facility] electric vehicle electrician / critical medicine teams, we discussed about transferring care to [facility] pulmonology. Patient agreed with the plan initially, but decided to stay with [facility] electric vehicle electrician. Assessment & Plan (02/06/2024 5:34 AM EST): - Tire Mounter: [facility], last seen on 11/18/23 - Severe [...] supplemental oxygen 4L-6L; recommended to discuss with electric vehicle electrician regarding to oxygen concentrator. - Strongly encouraged to get COVID vaccine - Keep appt with electric vehicle electrician and resume pulmonary rehab. -Treatment Hx: Budesonide - Formoterol (Symbicort) was changed to Wixela in Jan 2023. Plan to try Trelegy. -Since she seldom sees her [facility] electric vehicle electrician, and she is well-known to [facility] electric vehicle electrician / critical medicine teams, we discussed about transferring care to [facility] pulmonology. Patient agreed with the plan initially, but decided to stay with [facility] electric vehicle electrician. Assessment & Plan (11/29/2023 11:51 AM EDT): - Tire Mounter: [facility], last seen on 11/18/23 - Severe [...] supplemental oxygen 4L-6L; recommended to discuss with electric vehicle electrician regarding to oxygen concentrator. - Strongly encouraged to get COVID vaccine - Keep appt with electric vehicle electrician -Treatment Hx: Budesonide - Formoterol (Symbicort) was changed to Wixela in Jan 2023. Plan to try Trelegy. Assessment & Plan (10/11/2023 11:41 AM EDT): - Tire Mounter: [facility], last seen on 05/31/23 - Severe [...] supplemental oxygen 4L-6L; recommended to discuss with electric vehicle electrician regarding to oxygen concentrator. - Strongly encouraged to get COVID vaccine - Keep appt with electric vehicle electrician -Treatment Hx: Budesonide - Formoterol (Symbicort) was changed to Wixela in Jan 2023. Plan to try Trelegy. Assessment & Plan (10/04/2023 5:21 PM EDT): - Tire Mounter: [facility], last seen on 05/31/23 - Severe [...] supplemental oxygen 4L-6L; recommended to discuss with electric vehicle electrician regarding to oxygen concentrator. - Strongly encouraged to get COVID vaccine - Keep appt with electric vehicle electrician -Treatment Hx: Budesonide - Formoterol (Symbicort) was changed to Wixela in Jan 2023. Plan to try Trelegy. Assessment & Plan (08/23/2023 3:08 PM EDT): - Tire Mounter: [facility], last seen on 05/31/23 - Severe [...] supplemental oxygen 4L-6L; recommended to discuss with electric vehicle electrician regarding to oxygen concentrator. - Strongly encouraged to get COVID vaccine - Keep appt with electric vehicle electrician -Treatment Hx: Budesonide - Formoterol (Symbicort) was changed to Wixela in Jan 2023. Plan to try Trelegy. Assessment & Plan (05/08/2023 6:27 AM EST): - Tire Mounter: [facility], last seen on 01/28/23 - Acute [...] get COVID vaccine - Keep appt with electric vehicle electrician. Plan at last visit was to do a nocturnal polysomnogram with TCCO2 monitoring to evaluate for nocturnal non-invasive ventilator assessment and chest CT w/o contrast and TTE after polysomnogram Assessment & Plan (03/01/2023 6:50 AM EST): - Tire Mounter: [facility], last seen on 01/28/23 - Severe [...] Dx COPD exacerbation, CAP, Tx azithromycin - [facility] hospitalization 01/11/19-01/17/19, b/l lower lobe pneumonia, L [...] get COVID vaccine - Keep appt with electric vehicle electrician -Treatment Hx: Budesonide - Formoterol (Symbicort) was changed to Wixela in Jan 2023. Plan to try Trelegy. Gastroesophageal reflux disease 09/09/2022 Assessment & Plan (08/23/2023 3:11 PM EDT): [facility], last seen in May 2023 Continue pantoprazole and famotidine History of alcohol use disorder 09/09/2022 History of intravenous drug abuse 09/09/2022 Post-traumatic stress disorder 09/09/2022 COPD (chronic obstructive pulmonary disease) Assessment & Plan (06/16/2024 5:57 AM EDT): - Tire Mounter: [facility], last seen on 06/07/24 - Severe [...] supplemental oxygen 4L-6L; recommended to discuss with electric vehicle electrician regarding to oxygen concentrator. - Anticipate to start BiPAP 21/7 mmHg - Strongly encouraged to get COVID vaccine - Keep appt with electric vehicle electrician and resume pulmonary rehab. -Treatment Hx: Budesonide - Formoterol (Symbicort) was changed to Wixela in Jan 2023. Plan to try fluticasone / umeclidinium / vilanterol (Trelegy) per electric vehicle electrician. Assessment & Plan (05/03/2024 5:06 PM EST): - Tire Mounter: [facility], last seen on 12/29/23 - Severe [...] supplemental oxygen 4L-6L; recommended to discuss with electric vehicle electrician regarding to oxygen concentrator. - Strongly encouraged to get COVID vaccine - Keep appt with electric vehicle electrician and resume pulmonary rehab. -Treatment Hx: Budesonide - Formoterol (Symbicort) was changed to Wixela in Jan 2023. Plan to try fluticasone / umeclidinium / vilanterol (Trelegy) per electric vehicle electrician. Assessment & Plan (04/02/2024 6:16 AM EST): - Tire Mounter: [facility], last seen on 11/18/23 - Severe [...] supplemental oxygen 4L-6L; recommended to discuss with electric vehicle electrician regarding to oxygen concentrator. - Strongly encouraged to get COVID vaccine - Keep appt with electric vehicle electrician and resume pulmonary rehab. -Treatment Hx: Budesonide - Formoterol (Symbicort) was changed to Wixela in Jan 2023. Plan to try Trelegy. -Since she seldom sees her [facility] electric vehicle electrician, and she is well-known to [facility] electric vehicle electrician / critical medicine teams, we discussed about transferring care to [facility] pulmonology. Patient agreed with the plan initially, but decided to stay with [facility] electric vehicle electrician. Assessment & Plan (02/06/2024 5:33 AM EST): - Tire Mounter: [facility], last seen on 11/18/23 - Severe [...] supplemental oxygen 4L-6L; recommended to discuss with electric vehicle electrician regarding to oxygen concentrator. - Strongly encouraged to get COVID vaccine - Keep appt with electric vehicle electrician and resume pulmonary rehab. -Treatment Hx: Budesonide - Formoterol (Symbicort) was changed to Wixela in Jan 2023. Plan to try Trelegy. -Since she seldom sees her [facility] electric vehicle electrician, and she is well-known to [facility] electric vehicle electrician / critical medicine teams, we discussed about transferring care to [facility] pulmonology. Patient agreed with the plan initially, but decided to stay with [facility] electric vehicle electrician. Assessment & Plan (11/29/2023 11:51 AM EDT): - Tire Mounter: [facility], last seen on 11/18/23 - Severe [...] supplemental oxygen 4L-6L; recommended to discuss with electric vehicle electrician regarding to oxygen concentrator. - Strongly encouraged to get COVID vaccine - Keep appt with electric vehicle electrician -Treatment Hx: Budesonide - Formoterol (Symbicort) was changed to Wixela in Jan 2023. Plan to try Trelegy. Assessment & Plan (10/11/2023 11:41 AM EDT): - Tire Mounter: [facility], last seen on 05/31/23 - Severe [...] supplemental oxygen 4L-6L; recommended to discuss with electric vehicle electrician regarding to oxygen concentrator. - Strongly encouraged to get COVID vaccine - Keep appt with electric vehicle electrician -Treatment Hx: Budesonide - Formoterol (Symbicort) was changed to Wixela in Jan 2023. Plan to try Trelegy. Assessment & Plan (10/04/2023 5:20 PM EDT): - Tire Mounter: [facility], last seen on 05/31/23 - Severe [...] supplemental oxygen 4L-6L; recommended to discuss with electric vehicle electrician regarding to oxygen concentrator. - Strongly encouraged to get COVID vaccine - Keep appt with electric vehicle electrician -Treatment Hx: Budesonide - Formoterol (Symbicort) was changed to Wixela in Jan 2023. Plan to try Trelegy. Assessment & Plan (08/23/2023 3:08 PM EDT): - Tire Mounter: [facility], last seen on 05/31/23 - Severe [...] supplemental oxygen 4L-6L; recommended to discuss with electric vehicle electrician regarding to oxygen concentrator. - Strongly encouraged to get COVID vaccine - Keep appt with electric vehicle electrician -Treatment Hx: Budesonide - Formoterol (Symbicort) was changed to Wixela in Jan 2023. Plan to try Trelegy. Assessment & Plan (05/31/2023 4:31 PM EST): - Tire Mounter: [facility], last seen on 01/28/23 - Severe [...] supplemental oxygen 4L-6L; recommended to discuss with electric vehicle electrician regarding to oxygen concentrator. - Strongly encouraged to get COVID vaccine - Keep appt with electric vehicle electrician -Treatment Hx: Budesonide - Formoterol (Symbicort) was changed to Wixela in Jan 2023. Plan to try Trelegy. Assessment & Plan (05/08/2023 6:17 AM EST): - Tire Mounter: [facility], last seen on 01/28/23 - Severe [...] get COVID vaccine - Keep appt with electric vehicle electrician -Treatment Hx: Budesonide - Formoterol (Symbicort) was changed to Wixela in Jan 2023. Plan to try Trelegy. Assessment & Plan (03/01/2023 6:49 AM EST): - Tire Mounter: [facility], last seen on 01/28/23 - Severe [...] Dx COPD exacerbation, CAP, Tx azithromycin - [facility] hospitalization 01/11/19-01/17/19, b/l lower lobe pneumonia, L [...] get COVID vaccine - Keep appt with electric vehicle electrician -Treatment Hx: Budesonide - Formoterol (Symbicort) was changed to Wixela in Jan 2023. Plan to try Trelegy. Assessment & Plan (12/24/2022 3:40 PM EDT): - Tire Mounter: [facility], last seen on 04/15/22 - Severe exacerbation 1-2 per year, none in [id number] - Most recent exacerbation today 12/22/22, Rx prednisone taper and azithromycin - Last hospitalization for COPD exacerbation in Feb 2020, Rx ceftriaxone, steroid, discharged with prednisone burst. - Hospitalization in Mar 2019. Dx COPD exacerbation. Rx prednisone and doxycycline - Exacerbation in Jan 2019, hospitalized 02/05/19- 02/07/19, Dx COPD exacerbation, CAP, Tx azithromycin - [facility] hospitalization 01/11/19-01/17/19, b/l lower lobe pneumonia, L > R, treated with IV steroid, levofloxacin, and bronchodilators Tx. Discharged with prednisone, benzonatate, levofloxacin. - Continue Symbicort and Incruse as maintenance. Plan to switch to Trelegy per electric vehicle electrician - Continue albuterol HFA prn. - Continue DuoNeb for neb prn Tx. - Continue workin on smoking cessation. - Continue supplemental oxygen 4L - Keep appt with electric vehicle electrician - Strongly encouraged to get COVID vaccine Assessment & Plan (12/05/2022 5:51 AM EDT): - Tire Mounter: [facility], last seen on 04/15/22 - Severe exacerbation 1-2 per year, none in [id number] - Most recent exacerbation in Feb 2020, required hospitalization at [facility], Rx ceftriaxone, steroid, discharged with prednisone burst. - Hospitalization in Mar 2019. Dx COPD exacerbation. Rx prednisone and doxycycline - Exacerbation in Jan 2019, hospitalized 02/05/19- 02/07/19, Dx COPD exacerbation, CAP, Tx azithromycin - [facility] hospitalization 01/11/19-01/17/19, b/l lower lobe pneumonia, L > R, treated with IV steroid, levofloxacin, and bronchodilators Tx. Discharged with prednisone, benzonatate, levofloxacin. - Continue Symbicort and Incruse as maintenance. Plan to switch to Trelegy per electric vehicle electrician - Continue albuterol HFA prn. - Continue DuoNeb for neb prn Tx. - Continue workin on smoking cessation. - Continue supplemental oxygen 4L - Keep appt with electric vehicle electrician - Strongly encouraged to get COVID vaccine Assessment & Plan (05/08/2022 5:47 PM EST): - Tire Mounter: [facility], last seen on 04/15/22 - Severe exacerbation 1-2 per year, none in [id number] - Most recent exacerbation in Feb 2020, required hospitalization at [facility], Rx ceftriaxone, steroid, discharged with prednisone burst. - Hospitalization in Mar 2019. Dx COPD exacerbation. Rx prednisone and doxycycline - Exacerbation in Jan 2019, hospitalized 02/05/19- 02/07/19, Dx COPD exacerbation, CAP, Tx azithromycin - [facility] hospitalization 01/11/19-01/17/19, b/l lower lobe pneumonia, L > R, treated with IV steroid, levofloxacin, and bronchodilators Tx. Discharged with prednisone, benzonatate, levofloxacin. - Continue Symbicort and Incruse as maintenance. Plan to switch to Trelegy per electric vehicle electrician - Continue albuterol HFA prn. - Continue DuoNeb for neb prn Tx. - Continue workin on smoking cessation. - Continue supplemental oxygen 4L - Keep appt with electric vehicle electrician - Strongly encouraged to get COVID vaccine Assessment & Plan (04/12/2022 7:28 PM EST): - Tire Mounter: [facility] - Severe exacerbation 1-2 per year, none in [id number] - Most recent exacerbation in Feb 2020, required hospitalization at [facility], Rx ceftriaxone, steroid, discharged with prednisone burst. - Hospitalization in Mar 2019. Dx COPD exacerbation. Rx prednisone and doxycycline - Exacerbation in Jan 2019, hospitalized 02/05/19- 02/07/19, Dx COPD exacerbation, CAP, Tx azithromycin - [facility] hospitalization 01/11/19-01/17/19, b/l lower lobe pneumonia, L > R, treated with IV steroid, levofloxacin, and bronchodilators Tx. Discharged with prednisone, benzonatate, levofloxacin. - Continue Breo and Spiriva as maintenance. Plan to switch to Trelegy per electric vehicle electrician - Continue albuterol HFA prn. - Continue DuoNeb for neb prn Tx. - Continue workin on smoking cessation. - Continue supplemental oxygen 4L - Keep appt with electric vehicle electrician in October. - Strongly encouraged to get COVID vaccine Diabetes mellitus, type 2 04/12/2022 Assessment & Plan (09/04/2024 5:10 PM EDT): - A1C 6.5% 09/04/24, 7.0% on 03/26/24 - in a setting of frequent steroid use for COPD exacerbation - continue working on lifestyle modifications - continue SMBG - continue metformin ER 500 mg twice daily - last eye exam: referred to [facility] eye care - last comprehensive foot exam: 10/04/23, left 2nd toe fracture after a fall - last lipid profile: 06/12/24, TC 282; TG 269; HDL 47; LDL 182 - last microalbumin test: 11/08/23, UACR: TNP Assessment & Plan (06/16/2024 6:04 AM EDT): - A1C 7.0% today, 7.0% on 03/26/24 - in a setting of frequent steroid use for COPD exacerbation - continue working on lifestyle modifications - continue SMBG - continue metformin ER 500 mg twice daily - last eye exam: referred to [facility] - last comprehensive foot exam: 10/04/23, left [...] daily - last eye exam: referred to [facility] eye care - last comprehensive foot [...] daily - last eye exam: referred to [facility] eye care - last comprehensive foot [...] daily - last eye exam: referred to [facility] eye care - last comprehensive foot [...] daily - last eye exam: referred to [facility] eye care - last comprehensive foot [...] daily - last eye exam: referred to [facility] eye care - last comprehensive foot [...] daily - last eye exam: referred to [facility] eye care - last comprehensive foot [...] daily - last eye exam: referred to [facility] eye care - last comprehensive foot exam: - last lipid profile: 12/24/22 - last microalbumin test: Ordered Assessment & Plan (11/28/2023 5:43 AM EDT): >>ASSESSMENT AND PLAN FOR DIABETES MELLITUS, TYPE 2 ([facility]) WRITTEN ON 05/31/2023 4:21 PM BY CATHLEEN MO MD - A1C 6.7% on 05/19/23, likely due to frequent steroid use recently - continue working on lifestyle modifications - start SMBG - start metformin ER 500 mg once daily - refer to [facility] eye care - foot exam at [...] 6:44 AM EST): -Supplier: [employer] -Pt had [id number] visit with Dr. Hart, electric vehicle electrician, on 01/28/23. He recommended supplemental oxygen 4LNC at rest and 6LNC with activity based on last evaluation -Continue as recommended. Assessment & Plan (01/05/2023 5:14 PM EDT): -Continuous supplemental oxygen 4L/m -Supplier: [employer] -Contacted [facility] for oxygen delivery RAN -Pt also needs a rollator as she needs frequent rest when walking. Assessment & Plan (12/05/2022 5:52 AM EDT): -Continuous supplemental oxygen 4L/m -Supplier: [employer] -Contacted [facility] for oxygen delivery RAN Assessment & Plan (05/08/2022 5:44 PM EST): -Continuous supplemental oxygen 4L/m Erythrocytosis 01/07/2015 Assessment & Plan (05/08/2023 6:35 AM EST): - 09/24/21 Hemoglobin 19.0; Hematocrit 59.1 - likely due to hypoxia / COPD - previously referred to refrigerator mover, but pt missed appt Assessment & Plan (12/05/2022 5:49 AM EDT): - 09/24/21 Hemoglobin 19.0; Hematocrit 59.1 - likely due to hypoxia / COPD - previously referred to refrigerator mover, but pt missed appt Assessment & Plan (05/08/2022 5:50 PM EST): - 09/24/21 Hemoglobin 19.0; Hematocrit 59.1 - likely due to hypoxia / COPD - previously referred to refrigerator mover, but pt missed appt Assessment & Plan (04/12/2022 7:51 PM EST): - 09/24/21 Hemoglobin 19.0; Hematocrit 59.1 - likely due to hypoxia / COPD - previously referred to refrigerator mover, but pt missed appt 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 Hepatitis C antibody test positive 01/07/2015 Chronic liver disease 09/03/2014 Assessment & Plan (06/16/2024 6:02 AM EDT): -Likely due to Hx alcohol use disorder -Followed by [facility], last visit on 12/21/23 -Hepatitis profile: [...] to Hx alcohol use disorder -Followed by [facility], last visit on 12/21/23 -Hepatitis profile: [...] to Hx alcohol use disorder -Followed by [facility], last visit on 12/21/23 -Hepatitis profile: [...] to Hx alcohol use disorder -Followed by [facility], last visit on 12/21/23 -Hepatitis profile: [...] to Hx alcohol use disorder -Followed by [facility], last visit on 06/22/23 -Hepatitis profile: [...] to Hx alcohol use disorder -Followed by [facility], last visit on 06/22/23 -Hepatitis profile: [...] to Hx alcohol use disorder -Followed by [facility], last visit on 06/22/23 -Hepatitis profile: [...] to Hx alcohol use disorder -Followed by [facility], last visit on 06/22/23 -Hepatitis profile: [...] to Hx alcohol use disorder -Followed by [facility], last visit on 09/24/21 -Hepatitis profile: [...] to Hx alcohol use disorder -Followed by [facility], last visit on 09/24/21 -Hepatitis profile: [...] to Hx alcohol use disorder -Followed by [facility], last visit on 09/24/21 -Hepatitis profile: [...] to Hx alcohol use disorder -Followed by [facility], last visit on 09/24/21 -Hepatitis profile: [...] to Hx alcohol use disorder -Followed by [facility], last visit on 09/24/21 -Hepatitis profile: [...] to Hx alcohol use disorder -Followed by [facility], last visit on 09/24/21 -Hepatitis profile: [...] staying abstinent Hypertension 02/26/2014 Assessment & Plan (09/04/2024 5:07 PM EDT): -Goal BP < 140/90 per [...] if any problem arises Assessment & Plan (06/12/2024 9:00 AM EDT): [...] mg, but if not approved will prescribe [id number] mg daily -Follow up in 3-6 mo, sooner if any problem arises Assessment & Plan (03/01/2023 6:52 AM EST): -Goal BP < 140/90 per JNC-8 and < 130/80 per ACC/AHA guideline (Treatment threshold >= 140/90 ) -Continue working on lifestyle modifications -Continue Amlodipine 10 mg daily -Recently seen by electric vehicle electrician, Dr. Hart, and was recommended to switch [...] Previous Dx: Depression; PTSD; alcohol-induced mood disorder [facility] provider: [facility], psychiatrist Dr. Cruz Current medications: sertraline 125 mg daily, perphenazine 4 mg daily Previously tried medications: risperidone; hydroxyzine; prazosin pt is depression has worsened with current living condition pt was able to contract her safety today Assessment & Plan (04/02/2024 6:22 AM EST): Previous Dx: Depression; PTSD; alcohol-induced mood disorder [facility] provider: Mumtaz Current medications: sertraline, prazosin 2mg, hydroxyzine, and risperidone. pt is depression has worsened with current living condition pt was able to contract her safety today Assessment & Plan (10/04/2023 9:59 AM EDT): Previous Dx: Depression; PTSD; alcohol-induced mood disorder [facility] provider: HUI Current medications: sertraline, prazosin 2mg, hydroxyzine, and risperidone. pt is depression has worsened with current living condition pt was able to contract her safety today Assessment & Plan (08/18/2023 5:43 AM EDT): Previous Dx: Depression; PTSD; alcohol-induced mood disorder [facility] provider: Mumtaz Current medications: sertraline, prazosin 2mg, hydroxyzine, and risperidone. pt is depression has worsened with current living condition pt was able to contract her safety today Assessment & Plan (05/08/2022 5:53 PM EST): Previous Dx: Depression; PTSD; alcohol-induced mood disorder [facility] provider: Mumtaz Current medications: sertraline, prazosin 2mg, hydroxyzine, and risperidone. pt is depression has worsened with current living condition pt was able to contract her safety today Assessment & Plan (04/12/2022 7:43 PM EST): Previous Dx: Depression; PTSD; alcohol-induced mood disorder [facility] provider: HUI Current medications: sertraline, prazosin 2mg, [...] in Nov 2023 - referred to [facility] Assessment & Plan (04/26/2024 10:32 AM EST): - restarted smoking in August 2023 - previously tried varenicline and nicotine replacement - not candidate for lung cancer screening CT due to severe COPD - continue working on smoking cessation - prescribed varenicline in Nov 2023 - referred to [facility] Assessment & Plan (04/02/2024 6:20 AM EST): - restarted smoking in August 2023 - previously tried varenicline and nicotine replacement - not candidate for lung cancer screening CT due to severe COPD - continue working on smoking cessation - prescribed varenicline in Nov 2023 - referred to [facility] Assessment & Plan (02/06/2024 5:38 AM EST): - restarted smoking in August 2023 - previously tried varenicline and nicotine replacement - not candidate for lung cancer screening CT due to severe COPD - continue working on smoking cessation - prescribed varenicline in Nov 2023 - referred to [facility] Assessment & Plan (11/29/2023 11:53 [...] nicotine replacement Hypothyroidism 10/20/2011 Assessment & Plan (09/04/2024 5:12 PM EDT): - Roofing Plant Supervisor: [facility], last visit on 06/15/20 - Current replacement: levothyroxine 225 mcg daily - Most recent thyroid function test: 0.22 06/12/24 therapeutic range, slightly low - Recheck today Assessment & Plan (06/16/2024 6:02 AM EDT): - Roofing Plant Supervisor: [facility], last visit on 06/15/20 - Current replacement: levothyroxine 225 mcg daily - Most recent thyroid function test: 11/08/23 therapeutic range - Recheck today Assessment & Plan (04/26/2024 10:32 AM EST): - Roofing Plant Supervisor: [facility], last visit on 06/15/20 - Current replacement: levothyroxine 225 mcg daily - Most recent thyroid function test: 11/08/23 therapeutic range Assessment & Plan (03/26/2024 5:03 PM EST): - Roofing Plant Supervisor: [facility], last visit on 06/15/20 - Current replacement: levothyroxine 225 mcg daily - Most recent thyroid function test: 08/03/23 therapeutic range - Requested to repeat lab today. - Encouraged to improve adherence. Assessment & Plan (02/02/2024 2:28 PM EST): - Roofing Plant Supervisor: [facility], last visit on 06/15/20 - Current replacement: levothyroxine 225 mcg daily - Most recent thyroid function test: 08/03/23 therapeutic range - Requested to repeat lab today. - Encouraged to improve adherence. Assessment & Plan (11/29/2023 11:32 AM EDT): - Roofing Plant Supervisor: [facility], last visit on 06/15/20 - Current replacement: levothyroxine 225 mcg daily - Most recent thyroid function test: 08/03/23 therapeutic range - Requested to repeat lab today. - Encouraged to improve adherence. Assessment & Plan (10/11/2023 11:43 AM EDT): - Roofing Plant Supervisor: [facility], last visit on 06/15/20 - Current replacement: levothyroxine 225 mcg daily - Most recent thyroid function test: 08/03/23 therapeutic range - Requested to repeat lab today. - Encouraged to improve adherence. Assessment & Plan (10/02/2023 4:45 PM EDT): - Roofing Plant Supervisor: [facility], last visit on 06/15/20 - Current replacement: levothyroxine 225 mcg daily - Most recent thyroid function test: 08/03/23 therapeutic range - Requested to repeat lab today. - Encouraged to improve adherence. Assessment & Plan (12/05/2022 5:49 AM EDT): - Roofing Plant Supervisor: [facility], last visit on 06/15/20 - Current replacement: levothyroxine 200 mcg daily - Most recent thyroid function test: 09/24/21 TSH 23.42 - 08/13/20 TSH 26.67, Free T4 0.9 - 10/22/19 TSH 48.28; Free T4 0.44 - Requested to repeat lab today. - Encouraged to improve adherence. - Advised to keep appt with Roofing Plant Supervisor Assessment & Plan (04/12/2022 7:31 PM EST): - Roofing Plant Supervisor: [facility], last visit on 06/15/20 - Current replacement: levothyroxine 200 mcg daily - Most recent thyroid function test: 09/24/21 TSH 23.42 - 08/13/20 TSH 26.67, Free T4 0.9 - 10/22/19 TSH 48.28; Free T4 0.44 - Requested to repeat lab today. - Encouraged to improve adherence. - Advised to keep appt with Roofing Plant Supervisor Resolved Problems Problem Noted Date Diagnosed Date [...] & Plan (05/31/2023 4:34 PM EST): - Roofing Plant Supervisor: [facility], last visit on 06/15/20 - Current replacement: levothyroxine 225 mcg daily (recently increased from 212.5 mcg because patient had TSH 5.92 and free T4 0.6) - Most recent thyroid function test: Most recent TSH in Mar 2023 was 5.92 (patient was having acute illness) - Recheck thyroid function Assessment & Plan (05/08/2023 6:34 AM EST): - Roofing Plant Supervisor: [facility], last visit on 06/15/20 - Current replacement: levothyroxine 225 mcg daily (recently increased from 212.5 mcg because patient had TSH 5.92 and free T4 0.6) - Most recent thyroid function test: Most recent TSH in Mar 2023 was 5.92 (patient was having acute illness) - Recheck thyroid function Assessment & Plan (12/24/2022 3:43 PM EDT): - Roofing Plant Supervisor: [facility], last visit on 06/15/20 - Current replacement: levothyroxine 200 mcg daily - Most recent thyroid function test: 12/14/22 TSH 32.45, Free T4 0.57 - Encouraged to improve adherence. Assessment & Plan (12/05/2022 5:53 AM EDT): - Roofing Plant Supervisor: [facility], last visit on 06/15/20 - Current replacement: levothyroxine 200 mcg daily - Most recent thyroid function test: 09/24/21 TSH 23.42 - 08/13/20 TSH 26.67, Free T4 0.9 - 10/22/19 TSH 48.28; Free T4 0.44 - Requested to repeat lab today. - Encouraged to improve adherence. - Advised to keep appt with Roofing Plant Supervisor Assessment & Plan (05/08/2022 5:49 PM EST): - Roofing Plant Supervisor: [facility], last visit on 06/15/20 - Current replacement: levothyroxine 200 mcg daily - Most recent thyroid function test: 09/24/21 TSH 23.42 - 08/13/20 TSH 26.67, Free T4 0.9 - 10/22/19 TSH 48.28; Free T4 0.44 - Requested to repeat lab today. - Encouraged to improve adherence. - Advised to keep appt with Roofing Plant Supervisor Assessment & Plan (04/12/2022 7:32 PM EST): - Roofing Plant Supervisor: [facility], last visit on 06/15/20 - Current replacement: levothyroxine 200 mcg daily - Most recent thyroid function test: 09/24/21 TSH 23.42 - 08/13/20 TSH 26.67, Free T4 0.9 - 10/22/19 TSH 48.28; Free T4 0.44 - Requested to repeat lab today. - Encouraged to improve adherence. - Advised to keep appt with Roofing Plant Supervisor Cirrhosis, alcoholic 01/07/2015 024 Assessment & Plan (05/31/2023 4:21 PM EST): -Followed by [facility], last visit on 09/24/21 -Hepatitis profile: [...] Plan (04/12/2022 7:38 PM EST): -Followed by [facility], last visit on 09/24/21 -Hepatitis profile: [...] & Plan (12/24/2022 3:41 PM EDT): - Tire Mounter: Ash[facility], last seen on 04/15/22 - Severe exacerbation 1-2 per year, none in [id number] - Most recent exacerbation today, 12/22/22. - Last hospitalization Feb 2020. [facility] Rx ceftriaxone, steroid, discharged with prednisone burst. - Hospitalization in Mar 2019. Dx COPD exacerbation. Rx prednisone and doxycycline - Exacerbation in Jan 2019, hospitalized 02/05/19- 02/07/19, Dx COPD exacerbation, CAP, Tx azithromycin - [facility] hospitalization 01/11/19-01/17/19, b/l lower lobe pneumonia, L > R, treated with IV steroid, levofloxacin, and bronchodilators Tx. Discharged with prednisone, benzonatate, levofloxacin. - Continue Symbicort and Incruse as maintenance. Plan to switch to Trelegy per electric vehicle electrician - Continue albuterol HFA prn. - Continue DuoNeb for neb prn Tx. - Continue workin on smoking cessation. - Continue supplemental oxygen 4L - Keep appt with electric vehicle electrician - Strongly encouraged to get COVID vaccine Assessment & Plan (12/05/2022 5:51 AM EDT): - Tire Mounter: Ashly, last seen on 04/15/22 - Severe exacerbation 1-2 per year, none in [id number] - Most recent exacerbation in Feb 2020, required hospitalization at [facility], Rx ceftriaxone, steroid, discharged with prednisone burst. - Hospitalization in Mar 2019. Dx COPD exacerbation. Rx prednisone and doxycycline - Exacerbation in Jan 2019, hospitalized 02/05/19- 02/07/19, Dx COPD exacerbation, CAP, Tx azithromycin - [facility] hospitalization 01/11/19-01/17/19, b/l lower lobe pneumonia, L > R, treated with IV steroid, levofloxacin, and bronchodilators Tx. Discharged with prednisone, benzonatate, levofloxacin. - Continue Symbicort and Incruse as maintenance. Plan to switch to Trelegy per electric vehicle electrician - Continue albuterol HFA prn. - Continue DuoNeb for neb prn Tx. - Continue workin on smoking cessation. - Continue supplemental oxygen 4L - Keep appt with electric vehicle electrician - Strongly encouraged to get COVID vaccine Assessment & Plan (05/08/2022 5:47 PM EST): - Tire Mounter: Ashly, last seen on 04/15/22 - Severe exacerbation 1-2 per year, none in [id number] - Most recent exacerbation in Feb 2020, required hospitalization at [facility], Rx ceftriaxone, steroid, discharged with prednisone burst. - Hospitalization in Mar 2019. Dx COPD exacerbation. Rx prednisone and doxycycline - Exacerbation in Jan 2019, hospitalized 02/05/19- 02/07/19, Dx COPD exacerbation, CAP, Tx azithromycin - [facility] hospitalization 01/11/19-01/17/19, b/l lower lobe pneumonia, L > R, treated with IV steroid, levofloxacin, and bronchodilators Tx. Discharged with prednisone, benzonatate, levofloxacin. - Continue Symbicort and Incruse as maintenance. Plan to switch to Trelegy per electric vehicle electrician - Continue albuterol HFA prn. - Continue DuoNeb for neb prn Tx. - Continue workin on smoking cessation. - Continue supplemental oxygen 4L - Keep appt with electric vehicle electrician - Strongly encouraged to get COVID vaccine Encounters Date Type Department Care Team Description 09/04/2024 1:00 PM EDT Office Visit [facility] [address] [place] [phone] Cathleen Mo MD Type 2 diabetes mellitus without complication, without long-term current use of insulin ([facility]) (Primary Dx); Pneumonia of right lower lobe due to infectious organism; Acute pain of right knee; 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; Dyslipidemia; Primary hypertension; Bilateral carpal tunnel syndrome 09/04/2024 Travel 09/03/2024 Patient Outreach [facility] [address] [place] [phone] Cathleen Mo MD Care Coordination (Appt reminder) 08/31/2024 Telephone [facility] [address] [place] [phone] Cathleen Mo MD chart prep 08/28/2024 3:20 PM EDT Office Visit [facility] [address] [place] [phone] Sandra Hoffman MD Dyspnea on exertion (Primary Dx); COPD exacerbation ([facility]) 08/28/2024 Results Follow-Up [address] [address] Sandra Hoffman MD XR Chest 2 Views 08/28/2024 Orders Only [address] [address] Sandra Hoffman MD 08/27/2024 Patient Outreach [address] [address] Cathleen Mo MD Care Coordination (Appt reminder) 08/22/2024 Patient Outreach [address] [address] Cathleen Mo MD Care Coordination ([facility] graduate) 08/22/[address] [address] Cathleen Mo MD Care Management ([facility]- f/u call lv) 08/15/2024 Patient Outreach [address] [address] Cathleen Mo MD Care Coordination (Appt reminder) 08/14/2024 Refill [facility] [address] [place] [phone] Cathleen Mo MD Type 2 diabetes mellitus without complication, without long-term current use of insulin ([facility]) 08/14/2024 Patient Outreach [address] [address] Cathleen Mo MD Care Coordination (Appt reminder) 08/10/2024 Refill [facility] [address] [place] [phone] Laura Shirley DO 08/10/2024 Patient Outreach [address] [address] Cathleen Mo MD Care Coordination (PT1) 08/09/2024 Telephone [facility] [place] [place] [address] Cathleen Mo MD Care Management (C3- f/u call) 08/09/2024 Population Health Risk Score [facility] () [address] [phone] Provider, Population Health Generic 08/08/2024 Patient Outreach [facility] [facility] [place] [address] Cathleen Mo MD Care Coordination (Appt reminder/pt1) 07/31/2024 Telephone [facility] [place] [address] Cathleen Mo MD Care Management ([facility]- f/u call) 07/31/2024 Telephone [facility] [facility] [place] [address] Cathleen Mo MD 07/26/2024 3:00 PM EDT Office Visit [facility] [facility] [place] [address] Laura Shirley DO COPD with acute exacerbation (CMS/HCC) (Primary Dx) 07/26/2024 Telephone [facility] [facility] [place] [address] Laura Shirley DO Follow-up 07/26/2024 Telephone [facility] [facility] [place] [address] Laura Shirley DO Nurse Triage 07/26/2024 Travel 07/23/2024 Orders Only [facility] [facility] [place] [address] Cathleen Mo MD Metabolic dysfunction-associate d steatotic liver disease (MASLD) (Primary Dx); Type 2 diabetes mellitus without complication, without long-term current use of insulin (CMS/HCC) 07/19/2024 [address] [address] Cathleen Mo MD Care Management ([facility]- f/u call) 07/11/2024 Patient Outreach [address] [address] Cathleen Mo MD Care Coordination (Appt reminder) 07/10/2024 Telephone [facility] [address] [place] [phone] Bert Banegas MD oygen return 07/09/[address] [address] Cathleen Mo MD Care Management ([facility]- f/u call) 07/09/2024 Patient Outreach [address] [address] Cathleen Mo MD Care Coordination (PT1) 07/04/2024 3:20 PM EDT Office Visit [facility] [address] [address] Bert Banegas MD COPD exacerbation (CMS/HCC) (Primary Dx); Chronic respiratory failure with hypoxia and hypercapnia (CMS/HCC) 07/04/2024 Refill [facility] [address] [place] [address] Cathleen Mo MD 07/03/2024 Patient Outreach [address] [address] Cathleen Mo MD Care Coordination (Appt reminder) 07/02/[address] [address] Elba Jiang, BRIANNA 07/02/2024 Patient Outreach [address] [address] Cathleen Mo MD Care Coordination (triage) 07/02/2024 Refill [facility] [address] [place] [phone] Cathleen Mo MD Other specified hypothyroidism 07/01/2024 Refill [facility] [address] [place] [phone] Cathleen Mo MD 06/29/2024 Patient Outreach [address] [address] Cathleen Mo MD Care Coordination (Appt reminder) 06/29/2024 Telephone [facility] [place] [phone] Cathleen Mo MD Care Management ([facility]- f/u call lvm) 06/20/2024 Orders Only [facility] [facility] [address] Cathleen Mo MD Parotid mass (Primary Dx); Sensorineural hearing loss (SNHL) of both ears 06/20/2024 Telephone [facility] [facility] [address] Cathleen Mo MD 06/18/2024 Telephone [facility] [place] [address] Cathleen Mo MD Care Management (C3CM- f/u call) 06/18/2024 Patient Outreach [facility] [place] [address] Cathleen Mo MD Care Coordination (PT1) 06/12/2024 1:15 PM EDT Office Visit [facility] [place] [address] Cathleen Mo MD Chronic obstructive pulmonary disease, [...] sciatica present; Skin lesions 06/12/2024 Orders Only [facility] [place] [address] Cathleen Mo MD 06/12/2024 Travel 06/11/2024 Patient Outreach [facility] [address] [place] [phone] Cathleen Mo MD Care Coordination (Appt reminder) 06/07/[address] [address] Cathleen Mo MD chart prep 06/06/[address] [address] Cathleen Mo MD Care Management (C3CM- f/u call #2 lvm) from Last 3 Months Immunizations Immunization Administration Dates Next Due Hep A / Hep B 10/13/2009,04/08/2009 Hep B, adult 07/14/2010 Influenza injectable quadriv alent preservative free 04/28/2023,04/29/2022,01/12/2019,03/13 Influenza, IIV3, injectable 12/09/2009 Influenza, Split (incl. chaparro fied surface antigen) 04/21/2012 Influenza, seasonal, injecta ble, preservative free 02/02/2024 Pfizer Covid-19 Vaccine 12+ 03/26/2024, 4 Pneumococcal Conjugate PCV 20 04/28/2023 Pneumococcal Polysaccharide [...] Answer Date Recorded Patient Health Questionnaire-9 Score 19 09/04/2024 Patient Health Questionnaire-9 Score 19 09/04/2024 Last PHQ-9: Questionnaire Data Not on file 0 09/04/2024 Housing Stability Answer Date Recorded What is [...] got money to buy more: Never True 09/04/2024 Within the past 12 months,th e food you bought just didn't last and you didn't have enough money to get more: Never True 12/2024 Transportation Answer Date Recorded In the past 12 months, has l ack of transportation kept you from medical appts, meetings, work or from getting things needed for daily living? No 09/04/2024 Utilities Answer Date Recorded In the past 12 months, has t he electric, gas, oil or water company threatened to shut off services in your home? No 01/10/2023 Depression Answer Date Recorded Patient Health Questionnaire-2 Score 6 09/04/2024 Internet Access Answer Date Recorded Internet Access [...] Sign Reading Time Taken Comments Blood Pressure 114/78 09/04/2024 1:17 PM EDT Pulse 106 09/04/2024 1:17 PM EDT Temperature 36.8 ??C (98.2 ??F) 09/04/2024 1:17 PM ED T Respiratory Rate 16 09/04/2024 1:17 PM EDT Oxygen Saturation 93% 09/04/2024 1:17 PM EDT Inhaled Oxygen Concentration - - Weight 80.5 kg (177 lb 6 oz) 09/04/2024 1:17 PM EDT Height 165.1 cm (5' 5 ) 09/04/2024 1:17 PM EDT Body Mass Index 29.52 09/04/2024 1:17 PM EDT Plan of Treatment Upcoming Encounters Date Type Department Care Team (Late st Contact Info) Description 11/06/2024 1:00 PM EDT Office Visit [facility] OPTOMETRY [address] [place] [address] Silvia Cameron, OD [address] [place] [address] Health Maintenance Due Date Last Done Comments CT Colonography 1966 Colonoscopy 1966 Dental Prophylaxis 1966 Dental X-Ray: Bitewings 1966 FIT 1966 FOBT 1966 Sigmoidoscopy 1966 Disability Screening 1966 Eye Exam 1976 Dental Oral Exam 07/22/2016 01/21/2016 Dental X-Ray: Full Mouth 01/21/2019 01/21/2016 Zoster Vaccines (2 of 2) 06/21/2024 04/26/2024 Diabetes: Foot Exam 10/10/2024 10/11/2023, Diabetes: Urine Protein Screening 11/07/2024 11/08/2023 Alcohol/Substance Use Screening 02/01/2025 02/02/2024 Depression Monitoring 03/06/2025 09/04/2024, 025 Diabetes: Hemoglobin A1C 03/06/2025 025, 06/12/2024, 03/26/2024, Additional history exists Pap Smear 04/29/2025 04/29/2022, 02/07/2019 Lipid Panel 06/12/2025 06/12/2024, 08/05/2023, 12/14/2022, Additional history exists Mammogram 07/12/2025 07/13/2023, 07/07/2022 SDOH Screening 09/04/2025 09/04/2024 Tobacco Screening 09/04/2025 09/04/2024 Colorectal Cancer Screening 03/26/2027 FIT DNA/Cologuard 03/26/2027 [...] Name Priority Date/Time Associated Diagnosis Comments XR KNEE 3 VIEWS RIGHT Routine 09/06/2024 1:10 PM EDT Acute pain of right knee XR CHEST 2 VIEWS Routine 09/06/2024 1:06 PM EDT Pneumonia of right lower lobe due to infectious organism POCT GLYCATED HEMOGLOBIN, TOTAL Routine 09/04/2024 1:19 PM EDT Type 2 diabetes mellitus without complication, without long-term current use of insulin ([facility]) POCT GLUCOSE Routine 09/04/2024 1:19 PM EDT Type 2 diabetes mellitus without complication, without long-term current use of insulin ([facility]/HCC) XR CHEST 2 VIEWS Routine 08/28/2024 3:26 PM EDT COPD exacerbation (CMS/HCC) XR CHEST 2 VIEWS STAT 07/26/2024 3:17 [...] complication, without long-term current use of insulin ([facility]/HCC) POCT GLUCOSE Routine 06/12/2024 9:38 AM EDT [...] Relevant to Health Maintenance Results * XR Knee 3 Views Right (09/06/2024 1:10 PM EDT) Anatomical Region Laterality Modality Lower Extremities, Knee Right Radiogra phic Imaging 09/06/2024 1:10 PM EDT Narrative 09/06/2024 2:38 PM EDT ?[facility] ?[address] ?[place] [address] ?XRay Report ? Signed ? Patient: Joseph Mazariegos,Sandra Ambrose ?MR# ?? : [id number] ? : 1965 ?Acct:[id number] ? Age/Sex: 58 / F ?ADM Date: 06/12/25 ? Loc: HO.HHCX ? Attending Dr: Cathleen Mo MD ? Ordering Physician: Cathleen Mo MD ?? Date of Service: 09/06/24 ?? Procedure(s): XR knee RT 3V ?? Accession Number(s): [id number] ? cc: Cathleen Mo MD ? EXAMINATION: ?? XR KNEE, RIGHT ? CLINICAL INFORMATION: ?? right knee pain after a fall ? COMPARISON: ?? None available. ? TECHNIQUE: ?? AP oblique and lateral views of the right knee. ? FINDINGS: ?? No acute cortical disruption or malalignment. Joint space narrowing ?? involving mostly the medial compartment associated sclerosis along the ?? articular surface. No suprapatellar bursa joint effusion. No lytic or ?? blastic lesions. ? XR/XR knee RT 3V ?? IMPRESSION: ?? No acute fracture or dislocation. ?? Mild osteoarthrosis, medial compartment. ? Electronically signed by: ??Jerman Flores MD ??09/06/2024 02:35 PM ?? EDT RP ? Dictated By: ?Jerman Louise MD ? Signed By: ?<Electronically signed by Jerman Herrera MD in OV> ? 09/06/24 1435 ? DD/ 1310 ? TD/TT: 09/06/24 1400 ? Finance Consultant: ? Procedure Note Donmeryter, Image - 09/06/[address] [address] XRay Report Signed Patient: Sandra Rose DMR# : [id number] : 1965Acct:[id number] Age/Sex: 58 / FADM Date: 09/06/24 Loc: HO.HHCX Attending Dr: Cathleen Mo MD Ordering Physician: Cathleen Mo MD Date of Service: 09/06/24 Procedure(s): XR knee RT 3V Accession Number(s): [id number] cc: Cathleen Mo MD EXAMINATION: XR KNEE, RIGHT CLINICAL INFORMATION: right knee pain after a fall COMPARISON: None available. TECHNIQUE: AP oblique and lateral views of the right knee. FINDINGS: No acute cortical disruption or malalignment. Joint space narrowing involving mostly the medial compartment associated sclerosis along the articular surface. No suprapatellar bursa joint effusion. No lytic or blastic lesions. XR/XR knee RT 3V IMPRESSION: No acute fracture or dislocation. Mild osteoarthrosis, medial compartment. Electronically signed by: Jerman Flores MD 09/06/2024 02:35 PM EDT RP Dictated By: Jerman Louise MD Signed By: <Electronically signed by Jerman Herrera MDin OV> 09/06/24 1435 DD/ 1310 TD/TT: 09/06/24 1400 Finance Consultant: us Cathleen Mo MD IMG XR PROCEDURES Final Result * XR Chest 2 Views (09/06/2024 1:06 PM EDT) Only the most recent of3 resultswithin the time period is included. Anatomical Region Laterality Modality Chest Radiographic Evon ging 09/06/2024 1:06 PM EDT Narrative 09/06/2024 2:36 PM EDT ?[facility] ?[address] ?[place] [address] ?XRay Report ? Signed ? Patient: Joseph MazariegosSandra ?MR# ?? : [id number] ? : 1965 ?Acct:[id number] ? Age/Sex: 58 / F ?ADM Date: 09/06/24 ? Loc: HO.HHCX ? Attending Dr: Cathleen Mo MD ? Ordering Physician: Cathleen Mo MD ?? Date of Service: 09/06/24 ?? Procedure(s): XR chest 2V ?? Accession Number(s): [id number] ? cc: Cathleen Mo MD ? EXAMINATION: ?? XR CHEST ? CLINICAL INFORMATION: ?? right lower lobe pneumonia, follow-up ? COMPARISON: ?? August 28, 2024. ? TECHNIQUE: ?? 2 views of the chest were obtained. ? FINDINGS: ?? Linear opacities in the right middle lung lobe and lingula. ?? No pleural effusion. No pneumothorax. Cardiomediastinal silhouette size ?? is normal. Mild multilevel thoracic spondylosis. Degenerative changes ?? in the acromioclavicular joints, right greater than the left side. ? XR/XR chest 2V ?? IMPRESSION: ?? Overall improvement. ? Electronically signed by: ??Jerman Flores MD ??09/06/2024 02:33 PM ?? EDT RP ? Dictated By: ?Jerman Louise MD ? Signed By: ?<Electronically signed by Jerman Herrera MD in OV> ? 09/06/24 1433 ? DD/ 1306 ? TD/TT: 09/06/24 1400 ? Finance Consultant: ? Procedure Note Donotjhoninterpreter, Image - 09/06/2024 [facility] [address] [place] [address] XRay Report Signed Patient: Sandra Rose DMR# : [id number] : 1965Acct:[id number] Age/Sex: 58 / FADM Date: 09/06/24 Loc: .HHCX Attending Dr: Cathleen Mo MD Ordering Physician: Cathleen Mo MD Date of Service: 09/06/24 Procedure(s): XR chest 2V Accession Number(s): [id number] cc: Cathleen Mo MD EXAMINATION: XR CHEST CLINICAL INFORMATION: right lower lobe pneumonia, follow-up COMPARISON: August 28, 2024. TECHNIQUE: 2 views of the chest were obtained. FINDINGS: Linear opacities in the right middle lung lobe and lingula. No pleural effusion. No pneumothorax. Cardiomediastinal silhouette size is normal. Mild multilevel thoracic spondylosis. Degenerative changes in the acromioclavicular joints, right greater than the left side. XR/XR chest 2V IMPRESSION: Overall improvement. Electronically signed by: Jerman Flores MD 09/06/2024 02:33 PM EDT Dictated By: Jerman Louise MD Signed By: <Electronically signed by Jerman Herrera MDin OV> 09/06/24 1433 DD/ 1306 TD/TT: 09/06/24 1400 Finance Consultant: Cathleen Mo MD IMG XR PROCEDURES Final Result * (ABNORMAL) POCT HGB A1C (09/04/2024 1:19 PM EDT) Pathologist [facility] Hemoglobin A1C 6.5(A) 4.0 - 6.0 % QC Media Lot # [id number] Lot# Expiration Date Blood 09/04/2024 1:19 PM EDT us Cathleen Mo MD POINT OF CARE TEST ENTER/EDIT OR DERABLES Final Result * (ABNORMAL) POCT Glucose (09/04/2024 1:19 PM EDT) Only the most recent of2 resultswithin the time period is included. Pathologist [facility] Glucose Blood, POC 55(A) 60 - 200 mg/dL QC Media Lot # [id number] Lot# Expiration Date Blood Capillary blood specimen / Unknown 09/04/2024 1:19 PM EDT Result Poornima Mo MD POINT OF CARE TEST ENTER/EDIT OR DERABLES Final Result * Referral to Audiology (07/12/2024) Result Poornima Mo MD OUTPATIENT REFERRAL ORDERABLES F inal Result * (ABNORMAL) CBC auto differential (06/12/2024 2:40 PM EDT) Pathologist [facility] White Blood Count 6.2 4.8 - 10.8 X10*3/uL [facility] Red Blood Count 5.40 4.20 - 5.50 X10*6/uL [facility] Hemoglobin 15.0 12.0 - 16.0 g/dl [facility] Hematocrit 48.2(H) 37.0 - 47.0 % [facility] Mean Corpuscular Volume 89.3 80.0 - 98.0 fL [facility] Mean Corpuscular Hemoglobin 27.8 27.0 - 33.0 pg [facility] Mean Corpuscular HGB Conc 31.1 31.0 - 35.0 g/dl [facility] Red Cell Distribution Width 14.4 11.0 - 16.0 % [facility] Platelet Count 161 160 - 400 X10*3/uL [facility] Mean Platelet Volume 11.6 9.4 - 12.3 fL [facility] Neutrophils Percent Auto 82.4(H) 45 - 73 % [facility] Imm Gran Pct Auto 0.2 0.0 - 0.4 % [facility] Lymphocytes Percent Auto 15.6(L) 20 - 40 % [facility] Monocytes Percent Auto 1.1(L) 2 - 11 % [facility] Eosinophils Percent Auto 0.2 0 - 4 % [facility] Basophils Percent Auto 0.5 0 - 2 % [facility] NRBC Pct Auto 0.0 0.0 - 0.2 /100WBC [facility] Neutrophils Absolute Auto 5.1 2.0 - 8.3 x10*3/uL [facility] Imm Gran Abs Auto 0.01 0.00 - 0.03 X10*3/uL [facility] Lymphocytes Absolute Auto 1.0(L) 1.2 - 4.9 X10*3/uL [facility] Monocytes Absolute Auto 0.1 0.1 - 1.2 X10*3/uL [facility] Eosinophils Absolute Auto 0.0 0.0 - 0.4 X10*3/uL [facility] Basophils Absolute Auto 0.0 0.0 - 0.2 X10*3/uL [facility] NRBC Abs Auto 0.000 0.0 - 0.012 X10*3/uL [facility] Blood Venous blood specimen / Unknown 06/12/2024 2:40 PM EDT 06/12/2024 4:48 PM EDT us Cathleen Mo MD LAB BLOOD ORDERABLES Final Resul t [facility] [address] [place] [phone] * (ABNORMAL) TSH with Reflex to Free T4 (06/12/2024 2:10 PM EDT) TSH reflex Free T4 0.22(L) 0.32 - 4.0 uIU/mL [facility] Blood 06/12/2024 2:10 PM EDT 06/12/2024 4:45 PM EDT us Cathleen Mo MD LAB BLOOD ORDERABLES Final Resul t Performing Organization Address [facility] Co de Phone Number [facility] [address] [place] [phone] * (ABNORMAL) Lipid Panel with Reflex to Direct LDL (06/12/2024 2:10 PM EDT) Triglycerides 269(H) <150 mg/dL [facility] Comment:Desirable Triglyceri de: less than 150 mg/dLBorderline High Triglyceride 150-199 mg/dLHigh Triglyceride: 200-499 mg/dLVery High Triglyceride: greater than or equal to 5OO mg/dL Cholesterol 282(H) <200 mg/dL [facility] Comment:Desirable Cholestero l: less than 200 mg/dLBorderline High Cholesterol: 200-239 mg/dLHigh Cholesterol: greater than 239 mg/dL LDL Cholesterol Calculated 182(H) <100 mg/dL [facility] Comment:Desirable LDL: less than 100 mg/dLNear Optimal/Above Optimal LDL: 110- 129 mg/dLBorderline High LDL: 130-159 mg/dLHigh LDL: 160-189 mg/dLVery High LDL: greater than or equal to 190 mg/dL HDL Cholesterol 47 >40 mg/dL [facility] Comment:Desirable HDL: great er than 40 mg/dL Note: This HDL assay may give artificially low results in patients with liver disease. Blood 06/12/2024 2:10 PM EDT 06/12/2024 4:45 PM EDT us Cathleen Mo MD LAB BLOOD ORDERABLES Final Resul t [facility] [address] [place] [phone] * Sed Rate by Modified Westergren (06/12/2024 2:10 PM EDT) Erythrocyte Sedimentation Rate 12 0 - 20 MM/HR [facility] Comment:Patients with polycy themia and many hemoglobin abnormalitiesmay have depressed sed rates whereas patients with anemiamay have elevated sed rates. Blood Venous blood specimen / Unknown 06/12/2024 2:10 PM EDT 06/12/2024 4:45 PM EDT Cathleen Mo MD LAB BLOOD ORDERABLES Final Resul t Performing Organization Address [facility] Co de Phone Number [facility] [address] [place] [phone] * C-reactive Protein (06/12/2024 2:10 PM EDT) C Reactive Protein 0.13 < or = 0.50 mg/dL [facility] Blood Venous blood specimen / Unknown 06/12/2024 2:10 PM EDT 06/12/2024 4:45 PM EDT Cathleen Mo MD LAB BLOOD ORDERABLES Final Resul t Performing Organization Address [facility] Co de Phone Number [facility] [address] [place] [phone] * Uric acid (06/12/2024 2:10 PM EDT) Uric Acid 4.4 2.4 - 5.7 mg/dL [facility] Blood Venous blood specimen / Unknown 06/12/2024 2:10 PM EDT 06/12/2024 4:45 PM EDT Cathleen Mo MD LAB BLOOD ORDERABLES Final Resul t Performing Organization Address City/[facility] Co de Phone Number [facility] [address] [place] [phone] * T4, Free (06/12/2024 2:10 PM EDT) Free T4 (Free Thyroxine) 1.13 0.71 - 1.85 ng/dL [facility] 06/12/2024 2:10 PM EDT 06/12/2024 4:45 PM EDT us Cathleen Mo MD LAB BLOOD ORDERABLES Final Resul t [facility] [address] [place] [phone] * (ABNORMAL) Comprehensive Metabolic Panel (06/12/2024 2:10 PM EDT) Pathologist [facility] Sodium 142 135 - 145 mmol/L [facility] Potassium 4.2 3.3 - 5.1 mmol/L [facility] Chloride 98 96 - 108 mmol/L [facility] Carbon Dioxide 33(H) 22 - 29 mmol/L [facility] Anion Gap 15 12 - 20 [facility] Urea Nitrogen (BUN) 15 9 - 16 mg/dL [facility] Creatinine, Serum 0.67 0.5 - 1.4 mg/dL [facility] Estimated Glomerular Filt Rate >60 [facility] Comment:Chronic Kidney Disea se: Estimated GFR < 60 mL/min/1.73y6Kpepkz Kidney Disease: Estimated GFR < 15 mL/min/1.73m2 Glucose 181(H) 60 - 115 mg/dL [facility] Calcium 9.7 8.4 - 10.2 mg/dL [facility] Bilirubin, Total 0.5 0.0 - 1.0 mg/dL [facility] Aspartate Amino Transferase 30 5 - 31 U/L [facility] Alanine Aminotransferase 31 0 - 31 U/L [facility] Total Protein 8.3(H) 6.5 - 8.0 g/dL [facility] Albumin Level 4.3 3.5 - 5.0 g/dL [facility] Alkaline Phosphatase 95 39 - 117 U/L [facility] Blood Venous blood specimen / Unknown 06/12/2024 2:10 PM EDT 06/12/2024 4:45 PM EDT Cathleen Mo MD LAB BLOOD ORDERABLES Final Resul t [facility] [address] [place] [phone] * (ABNORMAL) POCT glycosylated hemoglobin (Hgb A1c) (06/12/2024 9:39 AM EDT) [facility] Hemoglobin A1C 6.8(A) 4.0 - 6.0 % QC Media Lot # [id number] Lot# Expiration Date Blood Capillary blood specimen / Unknown 06/12/2024 9:39 AM EDT Cathleen Mo MD POINT OF CARE TEST ENTER/EDIT OR DERABLES Final Result * Referral to Pulmonology (06/07/2024) Steph PALOMINO OUTPATIENT REFERRAL ORDERABLES F inal Result * Cologuard?? colon cancer screening (03/26/2024 11:10 AM EST) Pathologist [facility] Cologuard Result Negative Negative 03/30/19 5:10 PM EST [facility] (CLIA #:[id number]) Comment: NEGATIVE TEST RESULT. A negative Cologuard [...] cancer. ??Following a negative Cologuard result, the [employer] and U.S. Multi-Society Task Force screening guidelines recommend a Cologuard re-screening interval of 3 years. References: [employer] Guideline for Colorectal Cancer Screening: https://www.cancer.org/cancer/hrpee-crcvyg-nzusgt/yilgoqfyl-ooskputla-renfkzk/ac s-rec ommendations.html.; Holland DK, Ivis PERDOMO, Stalin LarkinK, Colorectal Cancer Screening: Recommendations for Physicians and Patients from the U.S. Multi-Society Task Force on Colorectal Cancer Screening , Am J Gastroenterology 2017; 112:5570-6601. TEST DESCRIPTION: Composite algorithmic analysis of stool [...] with both Cologuard and colonoscopy. (Martha Fiore. zoe al, N Engl J Med 2014;370(14):2499-9004.) Cologuard may produce a false negative or false positive result (no colorectal cancer or precancerous polyp present at colonoscopy follow up). A negative Cologuard test result does not guarantee the absence of CRC or advanced adenoma (pre-cancer). The current Cologuard screening interval is every 3 years. ([employer] and U.S. Multi-Society Task Force). Cologuard performance data in a 10,000 patient pivotal study using colonoscopy as the reference method can be accessed at the following location: www.[employer]/results. Additional description of the Cologuard test process, warnings and precautions can be found at www.cologuard.com. Stool specimen (specimen) 03/26/2024 11:10 AM EST 03/27/2024 11:53 AM EST Cathleen Mo MD LAB MOLECULAR DIAGNOSTICS ORDERA BLES Final Result [facility] (CLIA #:[id number]) [place] [address], * Albumin, Random Urine W/Creatinine (11/08/2023 1:45 PM EDT) Creatinine, Urine 67.59 mg/dL [facility] Microalbumin Urine <5.0 mg/L [facility] Microalbum Creatinine Ratio Ur TNP <30 ug/mg cr [facility] Comment:Unable to calculate albumin/creatinine ratio due to lowmicroalbumin or creatinine result. Urine 11/08/2023 1:45 PM EDT 11/08/2023 3:56 PM EDT Cathleen Mo MD LAB URINE ORDERABLES Final Resul t [facility] [address] [place] [phone] * BI Mammogram Screening Tomosynthesis Bilateral (07/13/2023 11:10 AM EDT) Anatomical Region Laterality Modality Breast Bilateral Mammography 07/13/2023 11:1 0 AM EDT Narrative 07/18/2023 3:46 PM EDT ? [facility] ? [address] ?[place], [place] [address] ? Mammography Report ? Signed ? Patient: Sandra Rose ?MR# ?? : [id number] ? : 1965 ?Acct:[id number] ? Age/Sex: 57 / F ?ADM Date: 07/13/23 ? Loc: HO.MAMMO ? Attending Dr: Cathleen Mo MD ? Ordering Physician: aCthleen Mo MD ?Results: 1Negative ? Date of Service: 07/13/23 ?Follow Up: 1 Year From Orig ?? inal Mammogram ? Procedure(s): MM tomosynthesis screening BI ?? Accession Number(s): [id number] ? cc: Cathleen Mo MD ? EXAMINATION: ?? MM SCREENING DIGITAL BREAST TOMOSYNTHESIS, BILATERAL ? CLINICAL INFORMATION: ? Screening. Asymptomatic. ? COMPARISON: ?? Mammography: This study is compared with prior exams dating back to ?? 2016. ? TECHNIQUE: ?? Digital breast tomosynthesis is [...] 1543 ? DD/ 1110 ? TD/TT: ? Finance Consultant: ? Procedure Note Donmeryter, Image - 07/18/2023 [place] [facility] [address] [place] [address] Mammography Report Signed Patient: Sandra Rose DMR# : [id number] : 1965Acct:[id number] Age/Sex: 57 / FADM Date: 07/13/23 Loc: [facility] Attending Dr: Cathleen Mo MD Ordering Physician: Cathleen Mo MDResults: 1Negative Date of Service: 07/13/23Follow Up: 1 Year From Orig inal Mammogram Procedure(s): MM tomosynthesis screening BI Accession Number(s): [id number] cc: Cathleen Mo MD EXAMINATION: MM SCREENING [...] in OV> 07/18/23 1543 DD/ 1110 TD/TT: Finance Consultant: us Cathleen Mo MD IMG BI PROCEDURES Final Result * HIV-1/2 Antigen and Antibodies, Fourth Generation, with Reflexes (05/12/2023 11:06 AM EST) HIV AB/AG Nonreactive Nonreactive [facility] Comment:HIV-1 p24 Ag and/or HIV-1/HIV-2 Ab not detected.A test result that is nonreactive does not exclude thepossibility of exposure to or infection with HIV-1 and/orHIV-2. Nonreactive results in this assay for individualswith prior exposure to HIV-1 and/or HIV-2 may be due toantigen and antibody levels that are below the limit ofdetection of this assay.The [employer] HIV Ag/Ab Combo assay result andsupplemental assay results should be interpreted inconjunction with the patient's clinical presentation,history and other laboratory results. If the results areinconsistent with clinical evidence, additional testing issuggested to confirm the result. Blood Venous blood specimen / Unknown 05/12/2023 11:06 AM EST 05/12/2023 1:03 PM EST us Cathleen Mo MD LAB BLOOD ORDERABLES Final Resul t [facility] [address] [place] [address] [phone] * Thinprep TIS PAP And HPV mRNA E6/E7 With Reflex To HPV 16,18/45 (04/29/2022 11:38 AM EST) Clinical Information: ROUTINE PAP [facility] [place] [facility] LMP: NONE GIVEN [facility] [place] [employer] Prev. PAP: NONE GIVEN [place] [place] [employer] Prev. BX: NONE GIVEN [place] [place] [employer] SOURCE: None given [facility] [place] [employer] Statement Of Adequacy: [facility] [place] [facility] Comment: Satisfactory for evaluation. Endocervical/transformation zone component present. Interpretation/ Result: Negative for intraepithelial lesion or malignancy. [facility] [place] [facility] COMMENT: This Pap test has been evaluated with computer assisted technology. [facility] [place] Cytotechnologis t: [facility] [place] [facility] Comment: SXA, CT(ASCP) CT screening location: [address] ??[id number] Review Cytotechnologis t: [facility] [place] [employer] Comment: JNA, CT(ASCP) CT screening location: [address] ??[id number] (Always Message) [facility] [place] [facility] Comment: EXPLANATORY NOTE: The Pap is a [...] HPV nRNA E6/E7 Not Detected Not Detected [facility] [place] [facility] Comment: Methodology: University Manager-Mediated Amplification This assay detects E6/E7 viral messenger RNA (mRNA) from 14 high-risk HPV types (16,18,31,33,35,39,45,51,52,56,58,59,66,68). Cervical sources are required for HPV testing. If a vaginal source from a patient who has had a total hysterectomy with removal of cervix was submitted, please contact the testing laboratory for alternative testing options. For additional information, please refer to http://education.W[employer] Online/faq/LTL155n4 (This link if provided for information/ educational purposes only.) 04/29/2022 11:3 8 AM EST 04/30/2022 9:58 AM EST Narrative [facility] - 05/05/2022 2:36 PM EST FASTING: UNKNOWN Cathleen Mo MD LAB PATHOLOGY ORDERABLES Final R esult [facility] [address] [facility], [facility], [place] [address] [facility] [address] [facility], ([address]) [place] [address] from Last 3 Months or Most Recently Relevant to Health Maintenance Insurance [facility] [employer] AD[place] Care Teams Campus Executive Director Relationship Specialty Start Date End Date Cathleen Mo MD [address] [place] [address] PCP - General Family Medicine 03/28/18 Tad Baez, LaurenD [address] [place] [id number] Pharmacist Internal Medicine 03/16/24 [facility] 05/04/17
== END 2024-09-06 13:37 | disposition home or self-care (01) ==
LOC: HO.HHCX 13:36
PROVIDERS: Visit Provider Family Medicine
DX: J18.9 Pneumonia, unspecified organism (principal); M25.561 Pain in right knee
CPT/HCPCS: 71046; 73562

== ENCOUNTER → 2024-09-06 13:37 | Outpatient (BNV) | payer MEDICAID, SELFPAY | PROVIDERS: Visit Provider Radiology Diagnostic Radiology | DX: J18.1 Lobar pneumonia, unspecified organism (principal); M17.11 Unilateral primary osteoarthritis, right knee | CPT/HCPCS: 71046; 73562 ==

== ENCOUNTER 2024-09-06 14:02 | Outpatient (REF) | payer MEDICAID, SELFPAY | END 2024-09-06 14:03 | disposition home or self-care (01) | LOC: HO.HHCL 14:02 | PROVIDERS: Visit Provider Family Medicine | DX: Z13.89 Encounter for screening for other disorder (principal) ==

== ENCOUNTER 2024-09-09 16:26 | Inpatient (IN) | payer MEDICAID, SELFPAY ==
--- NOTE | ~2024-09-09 | XR_ITS ---
CLINICAL HISTORY: Shortness of breath 1 view chest x-ray Comparison: CR - XR CHEST 1V - 04/02/24 06:01 EST Findings: No focal lung opacity. Small area of scarring or atelectasis at the right lung base. No effusion or pneumothorax. Mild cardiomegaly. No acute fracture. IMPRESSION: 1. No acute findings. This document has been electronically signed by: Papa Novak MD on 09/09/2024 18:23:11
[2024-09-09 16:36] VITALS: BP 184/84; PULSE 109; O2SAT 92
[2024-09-09 16:46] VITALS: BP 120/77; PULSE 104; RESP 22; TEMP 37.6; O2SAT 93; BMI 30.2
--- NOTE | 2024-09-09 16:51 | ED_ITS ---
HPI - SOB/Dyspnea General Chief Complaint: Dyspnea Stated Complaint: difficulty breathing, pneumonia copd Time Seen by Provider: 09/09/24 16:43 Source: patient Mode of arrival: EMS Limitations: no limitations History of Present Illness ED Provider: HPI Narrative: 58-year-old female, with a past medical history of chronic hypoxemic respiratory failure due to COPD on 4-6 L supplemental oxygen, hypothyroidism, opiate use disorder, HCV cirrhosis, mood disorder, hypertension, GERD, mixed hyperlipidemia ex-smoker with recent pneumonia in 08/19 as she is still coughing with shortness a breath and weakness with frequent falls no head injury no loss of consciousness patient's diagnose with right lower lobe pneumonia in 08/19 Related Data Home Medications ?Medication ?Instructions ?Recorded ?Confirmed perphenazine 4 mg tablet 4 mg PO BEDTIME 09/24/21 04/02/24 levothyroxine 200 mcg tablet 200 mcg PO DAILY@59910/01/22 04/02/24 sertraline 25 mg tablet 25 mg PO DAILY@119910/01/22 04/02/24 umeclidinium 62.5 mcg/actuation 1 inh inhalation DAILY 10/01/22 04/02/24 blister powder for inhalation (Incruse Ellipta) ipratropium 0.5 mg-albuterol 3 mg 3 ml inhalation QID PRN wheezing 04/20/23 04/02/24 (2.5 mg base)/3 mL nebulization soln sertraline 100 mg tablet 100 mg PO DAILY@119904/20/23 04/02/24 furosemide 20 mg tablet 20 mg PO BID 08/16/23 04/02/24 amlodipine 10 mg tablet 5 mg PO DAILY@119909/03/23 04/02/24 albuterol sulfate 90 mcg/actuation 2 puff inhalation Q6H PRN wheezing 10/06/23 04/02/24 aerosol inhaler (Ventolin HFA) acetaminophen 500 mg tablet 1,000 mg PO Q8H PRN moderate pain 12/08/23 04/02/24 hydroxyzine pamoate 25 mg capsule 25 mg PO Q6H PRN itch 12/08/23 04/02/24 methadone 10 mg/mL oral concentrate 56 mg PO DAILY 01/06/24 04/02/24 levothyroxine 25 mcg tablet 25 mcg PO DAILY@59904/02/24 04/02/24 metformin 500 mg tablet,extended 500 mg PO BID 04/02/24 04/02/24 release 24 hr rosuvastatin 20 mg tablet 20 mg PO DAILY 04/02/24 04/02/24 Previous Rx's ?Medication ?Instructions ?Recorded fluticasone furoate 200 1 inh inhalation DAILY #60 ea 01/09/24 mcg-vilanterol 25 mcg/dose inhalation powder (Breo Ellipta) cefuroxime axetil 500 mg tablet 500 mg PO BID 10 days #20 tabs 04/04/24 prednisone 10 mg tablet See Rx Instructions .Route 04/04/24 .COMPLEX #45 tabs docusate sodium 100 mg capsule 100 mg PO BID PRN Constipation #60 06/20/24 caps famotidine 40 mg tablet 40 mg PO BEDTIME #30 tabs 06/20/24 pantoprazole 40 mg tablet,delayed 40 mg PO DAILY #30 tabs 06/20/24 release sennosides 8.6 mg tablet (senna) 17.2 mg (2 x 8.6 mg) PO BEDTIME 06/20/24 PRN constipation #60 tabs simethicone 180 mg capsule 180 mg PO BIDAC #60 caps 06/20/24 benzonatate 100 mg capsule 100 mg PO TID PRN cough #20 caps 08/09/24 Allergies Allergy/AdvReac Type Severity Reaction Status Date / Time Penicillins [PENICILLINS] Allergy Unknown RED ITCHY Verified 09/09/24 16:46 RASH SEAFOOD Allergy Unknown FEVER Uncoded 04/02/24 05:57 SWELLING Review of Systems 2 Review of Systems: Yes all other systems are reviewed and are negative [facility] Past Medical History Medical History Alcoholic cirrhosis Diabetes type 2 Chronic respiratory failure Opioid use disorder, moderate, in sustained remission Opiate abuse, continuous Diabetes Nausea and vomiting COVID Community acquired pneumonia Colon cancer screening COPD (chronic obstructive pulmonary disease) Methadone dependence Hepatitis C Pulmonary edema Polysubstance abuse Hypertension Acute and chronic respiratory failure Hypotension Respiratory failure Acute respiratory failure, unspecified whether with hypoxia or hypercapnia Hyperlipidemia Psychosis Hypoxia Acute exacerbation of chronic obstructive airways disease HTN (hypertension) Hypothyroid COPD (chronic obstructive pulmonary disease) Family History Family History Father HTN (hypertension) Mother Gastritis Ovarian cancer Arthritis Son Thyroid disease Other Hypothyroid Social History Social History Household Members: Significant Other Household Members Other:: 1 Housing: Apartment Do you presently have visiting nurse or other home services: Yes Alcohol intake: current Alcohol intake frequency: does not drink Comment: refuses bed alarm at times Patient Tobacco Use Status: Current someday Tobacco user Tobacco use type: Cigarette Cigarette Packs Per Day: 1 Cigarettes Per Day: 10 Years Smoked: 30 Smoked in Last 30 Days: Yes e-Cigarette/Vaping Use: Never Used Second Hand Smoke Exposure: No Use of substances other than those prescribed or required for medical reasons: No Substance Use Type: Heroin Advance Directives: Yes Advance Directives on File: Yes Advance Directives Date on File: 08/18/23 Do you have a plan to hurt others: No Plan Patient : No service: No Current occupational status: unemployed Physical Exam 2 Vital Signs: Vital Signs: Last Vital Signs Temp 99.0 F 09/09/24 18:36 Pulse 106 H 09/09/24 20:00 Resp 20 09/09/24 20:00 BP 102/66 09/09/24 20:00 Pulse Ox 91 L 09/09/24 20:00 O2 Del Method Oxymask 09/09/24 20:00 O2 Flow Rate 8 09/09/24 20:00 Oxygen Flow Rate 5 09/09/24 16:46 BMI result Body Mass Index 30.2 Appearance: Alert. Oriented X3. Moderate dyspnea. Eyes: No pallor or icterus ENT: Pharynx normal. Oral Mucosa moist Neck: Normal inspection. Neck supple. CVS: Regular rate and rhythm tachycardic. Pulses normal. Respiratory: No respiratory distress. Equal air entry bilateral, bilateral wheezing and prolonged expiration no crackles Abdomen: Soft and nontender. Bowel sounds are present, no mass palpable, no CVA tenderness Skin: Skin warm and dry. Normal skin color. Normal skin turgor. Extremities: No lower extremity edema. No calf tenderness Neuro: Oriented X 3. No motor deficit. No sensory deficit.No cerebellar signs , cranial nerves II-XII intact Medications Administered Generic Name Dose Route Start Last Admin Trade Name Freq PRN Reason Stop Dose Admin Acetaminophen 650 mg 09/09/24 20:54 09/09/24 22:38 Acetaminophen 325 Mg Tablet PO 650 mg Q6H PRN Administration Pain, Mild 1-3,fever,headache Enoxaparin Sodium 40 mg 09/09/24 21:00 09/09/24 22:19 Enoxaparin Sodium 40 Mg/0.4 Ml Syringe SUBCUT 40 mg Q24H MAYRA Administration Azithromycin 500 mg/ Sodium 250 mls @ 125 mls/hr 09/09/24 22:00 09/09/24 22:18 Chloride IV 125 mls/hr Q24H MAYRA Administration Sodium Chloride 3 ml 09/10/24 00:00 09/09/24 23:16 0.9 % Sodium Chloride Flush 3 Ml Syringe IVFLUSH Not Given QSHIFT MAYRA Discontinued Medications Generic Name Dose Route Start Last Admin Trade Name Freq PRN Reason Stop Dose Admin Albuterol Sulfate 7.5 mg/ 10 mg 09/09/24 19:32 09/09/24 19:34 Albuterol Sulfate 2.5 mg INHALE 09/09/24 19:33 10 mg ONCE ONE Administration Ceftriaxone Sodium 1 gm 09/09/24 20:27 09/09/24 20:38 Ceftriaxone Sodium 1 Gm Vial IVPUSH 09/09/24 20:28 1 gm ONCE ONE Administration Albuterol Sulfate 2.5 mg/ 0 mg 09/09/24 17:44 09/09/24 17:48 Albuterol/Ipratropium 3 ml INHALE 09/09/24 17:45 5 dose ONCE ONE Administration Magnesium Sulfate 2 gm in 50 mls @ 150 mls/hr 09/09/24 20:27 09/09/24 20:38 Magnesium Sulfate/H2o IV 09/09/24 20:46 150 mls/hr ONCE ONE Administration Sodium Chloride 1,000 mls @ 999 mls/hr 09/09/24 20:27 09/09/24 22:16 Ns IV 09/09/24 21:27 999 mls/hr .Q1H1M ONE Administration Methylprednisolone Sodium Succinate 125 mg 09/09/24 17:30 09/09/24 17:59 Methylprednisolone Sod Succ 125 Mg Vial IVPUSH 09/09/24 17:31 125 mg ONCE ONE Administration Medical Decision Making Medical Decision Making MDM Narrative: Patient's COPD acute on chronic hypoxia on home oxygen will admit patient for supportive treatment Differential Diagnosis Differential Diagnoses: The differential diagnosis associated with the presentation includes Pneumonias/pleural effusion/COPD/chronic bronchitis/CHF Admission/Observation Consideration of admission/observation: Escalation of care including admission/observation considered Consult Healthcare Provider Management of the patient was discussed with: Hospitalist Lab Data MDM Lab Attestation statement: I reviewed the patient's lab results. 09/09/24 17:41 09/09/24 19:20 Labs: Lab Results 09/09/24 09/09/24 09/09/24 Range/Units 17:41 19:20 19:28 WBC 9.4 (4.8-10.8) X10*3/uL RBC 4.88 (4.20-5.50) X10*6/uL Hgb 14.0 (12.0-16.0) g/dl Hct 45.6 (37.0-47.0) % MCV 93.4 (80.0-98.0) fL MCH 28.7 (27.0-33.0) pg MCHC 30.7 L (31.0-35.0) g/dl RDW 14.6 (11.0-16.0) % Plt Count 113 L (160-400) X10*3/uL MPV 11.2 (9.4-12.3) fL Immature Gran % (Auto) 0.2 (0.0-0.4) % Neut % (Auto) 69.2 (45-73) % Lymph % (Auto) 22.9 (20-40) % [place] % (Auto) 5.2 (2-11) % Eos % (Auto) 2.0 (0-4) % Baso % (Auto) 0.5 (0-2) % Lymph # (Auto) 2.2 (1.2-4.9) X10*3/uL [place] # (Auto) 0.5 (0.1-1.2) X10*3/uL Eos # (Auto) 0.2 (0.0-0.4) X10*3/uL Baso # (Auto) 0.1 (0.0-0.2) X10*3/uL Abs Immat Gran (auto) 0.02 (0.00-0.03) X10*3/uL Absolute Neuts (auto) 6.5 (2.0-8.3) x10*3/uL Absolute Nucleated RBC 0.000 (0.0-0.012) X10*3/uL Nucleated RBC % (auto) 0.0 (0.0-0.2) /100WBC Smear Tech's Comments VERIFIED VBG pH 7.40 (7.32-7.43) VBG pCO2 77 mmHg VBG pO2 50 mmHg VBG HCO3 48 H (22-26) mmol/L VBG O2 Saturation 83.0 % VBG Base Excess 19.2 mmol/L Sodium 143 (135-145) mmol/L Potassium 4.9 D (3.3-5.1) mmol/L Chloride 94 L (96-108) mmol/L Carbon Dioxide 40 H* (22-29) mmol/L Anion Gap 14 (12-20) BUN 8 L (9-16) mg/dL Creatinine 0.70 (0.5-1.4) mg/dL Estim Creat Clear Calc 93.9 Estimated GFR > 60 Random Glucose 114 (60-115) mg/dL Lactic Acid 0.6 (0.5-2.0) mmol/L Calcium 9.3 (8.4-10.2) mg/dL Total Bilirubin 0.5 (0.0-1.0) mg/dL AST 31 (5-31) U/L ALT 15 (0-31) U/L Alkaline Phosphatase 83 (39-117) U/L Troponin I High Sens 3.4 (<3.5-17.0) ng/L B-Natriuretic Peptide < 10 (<100) pg/mL Total Protein 7.2 (6.5-8.0) g/dL Albumin 4.0 (3.5-5.0) g/dL Independent Interpretation I performed an independent interpretation of an: EKG Interpretation: Sinus tachycardia with heart rate 108 beats per minute left axis deviation no acute ST-T changes no acute ischemia Radiology Impression Discussion of test interpretation with radiology: I have reviewed the radiologist's reading. Radiologist Impression: No acute finding in chest x-ray Discharge Plan Discharge Clinical Impression: Acute respiratory failure with hypoxia, Acute exacerbation of chronic obstructive pulmonary disease (COPD) Patient Disposition: Admitted As Inpatient
--- NOTE | 2024-09-09 16:54 | ECG_ITS ---
Test Reason : SOB Blood Pressure : */* mmHG Vent. Rate : 108 BPM Atrial Rate : 108 BPM P-R Int : 160 ms QRS Dur : 82 ms QT Int : 346 ms P-R-T Axes : 6 -82 33 degrees QTcB Int : 463 ms Sinus tachycardia Left axis deviation Abnormal ECG When compared with ECG of 09-Aug-2024 11:28, No significant change was found Referred By: Joel Roman Electronically Signed By: Johny Velazco
--- NOTE | 2024-09-09 17:05 | PC.NURSE ---
Attempting to start IV on pt. Pt. informed this RN to go away, do not touch me. Informed pt. that she is not well and SOB and that she needs an IV. Pt. refusing to have IV placed at this time. Informed goldie Mohan to have blood drawn.
[2024-09-09] MEDS: Albuterol Sulfate 2.5 MG, Albuterol/Iprat 2.5/0.5MG 3 ML 3 ML INHALE (17:48)
[2024-09-09 17:51] VITALS: PULSE 105; RESP 16; O2SAT 95
[2024-09-09 18:08] LABS: Lactic Acid 0.6 mmol/L (0.5-2.0)
[2024-09-09 18:15] LABS: B Type Natriuretic Peptide < 10 pg/mL (<100)
[2024-09-09 18:26] LABS: Basophils Absolute Auto 0.1 X10*3/uL (0.0-0.2); Basophils Percent Auto 0.5 % (0-2); Eosinophils Absolute Auto 0.2 X10*3/uL (0.0-0.4); Hematocrit 45.6 % (37.0-47.0); Imm Gran Abs Auto 0.02 X10*3/uL (0.00-0.03); Imm Gran Pct Auto 0.2 % (0.0-0.4); Lymphocytes Absolute Auto 2.2 X10*3/uL (1.2-4.9); Lymphocytes Percent Auto 22.9 % (20-40); MANUAL DIFF FLAG SCAN; Mean Corpuscular HGB Conc 30.7 g/dl (31.0-35.0); Mean Corpuscular Hemoglobin 28.7 pg (27.0-33.0); Mean Corpuscular Volume 93.4 fL (80.0-98.0); Mean Platelet Volume 11.2 fL (9.4-12.3); Monocytes Absolute Auto 0.5 X10*3/uL (0.1-1.2); Monocytes Percent Auto 5.2 % (2-11); Neutrophils Absolute Auto 6.5 x10*3/uL (2.0-8.3); Neutrophils Percent Auto 69.2 % (45-73); PLT CLUMP 1; Red Blood Count 4.88 X10*6/uL (4.20-5.50); Red Cell Distribution Width 14.6 % (11.0-16.0); SCAN SMEAR FLAG 1
[2024-09-09 18:36] VITALS: BP 113/76; PULSE 100; RESP 13; TEMP 37.2; O2SAT 93
[2024-09-09 18:48] LABS: Platelet Count 113 X10*3/uL (160-400); White Blood Count 9.4 X10*3/uL (4.8-10.8)
[2024-09-09 18:49] LABS: SLIDE REVIEW VERIFIED
--- NOTE | 2024-09-09 19:21 | PC.NURSE ---
Phlebotomy came and gayle pt. lab work.
[2024-09-09 19:33] LABS: VBG Base Excess 19.2 mmol/L; VBG HCO3 48 mmol/L (22-26); VBG pCO2 77 mmHg; VBG pO2 50 mmHg
[2024-09-09 19:34] VITALS: PULSE 100; RESP 14; O2SAT 90
[2024-09-09] MEDS: Albuterol Sulfate 7.5 MG, Albuterol Sulfate (0.083%) 2.5 MG 10 MG INHALE (19:34)
[2024-09-09 19:51] LABS: Venous Blood Gas Refer to POC result
[2024-09-09 19:53] LABS: Troponin-I High Sensitivity 3.4 ng/L (<3.5-17.0)
[2024-09-09 19:55] LABS: Alanine Aminotransferase 15 U/L (0-31); Alkaline Phosphatase 83 U/L (39-117); Anion Gap 14 (12-20); Aspartate Amino Transferase 31 U/L (5-31); Bilirubin Total 0.5 mg/dL (0.0-1.0); Blood Urea Nitrogen 8 mg/dL (9-16); Calcium 9.3 mg/dL (8.4-10.2); Carbon Dioxide 40 mmol/L (22-29); Chloride 94 mmol/L (96-108); Creatinine Clr Calc Pharmacy 93.9; Estimated Glomerular Filt Rate > 60; Glucose Random 114 mg/dL (60-115); Potassium 4.9 mmol/L (3.3-5.1); Sodium 143 mmol/L (135-145); Total Protein 7.2 g/dL (6.5-8.0)
[2024-09-09 20:00] VITALS: BP 102/66; PULSE 106; RESP 20; O2SAT 91
[2024-09-09] MEDS: cefTRIAXone sodium 1 GM VIAL IVPUSH (20:38)
[2024-09-09] MEDS: Magnesium Sulfate/H2O 2 GM/50 ML PIGGYBACK IV (20:38)
--- NOTE | 2024-09-09 20:40 | PC.NURSE ---
Spoke to provider after giving Rocephin, Provider informed this RN that blood cultures are not needed.
--- NOTE | 2024-09-09 20:51 | PC.NURSE ---
Informed provider of pt's being 89-91% on 8L via oxymask. Provider made aware and okay with pt.
--- NOTE | 2024-09-09 21:08 | PM.IMHP ---
History of Present Illness Date of Service: 09/09/24 Chief Complaint: Dyspnea This is a 58-year-old female with pertinent history of chronic hypoxemic respiratory failure due to COPD on 4-6 L supplemental oxygen, hypothyroidism, opiate use disorder, HCV cirrhosis, mood disorder, hypertension, gastroesophageal reflux disease, mixed hyperlipidemia, tobacco use disorder, NATALIE/OHS noncompliant with NIV who presents to the emergency department for evaluation of dyspnea. Patient states symptoms started few days prior to presentation and has been progressive. She was unable to take it so decided to present to the ER. She has been feeling unwell and has been having dyspnea which is worse with exertion. Also has been having cough with purulent sputum production. Has associated wheezing which is not relieved with home inhaler. No orthopnea. No fever, chills, chest pain, palpitations, abdominal pain, changes in urinary or bowel habits. Denies orthopnea or PND In the emergency department, patient requiring 6 L supplemental oxygen and with wheezing despite multiple DuoNeb treatments. Review of Systems Constitutional: Constitutional: Reports fatigue and Reports malaise Cardiovascular: Cardiovascular: Reports dyspnea on exertion Respiratory: Respiratory: Reports cough, Reports dyspnea on exertion and Reports wheezing Endocrine: Endocrine: Reports fatigue Allergic/Immunologic: Allergic/Immunologic: Reports wheezing [facility] Medical History Alcoholic cirrhosis Diabetes type 2 Chronic respiratory failure Opioid use disorder, moderate, in sustained remission Opiate abuse, continuous Diabetes Nausea and vomiting COVID Community acquired pneumonia Colon cancer screening COPD (chronic obstructive pulmonary disease) Methadone dependence Hepatitis C Pulmonary edema Polysubstance abuse Hypertension Acute and chronic respiratory failure Hypotension Respiratory failure Acute respiratory failure, unspecified whether with hypoxia or hypercapnia Hyperlipidemia Psychosis Hypoxia Acute exacerbation of chronic obstructive airways disease HTN (hypertension) Hypothyroid COPD (chronic obstructive pulmonary disease) Family History Father HTN (hypertension) Mother Gastritis Ovarian cancer Arthritis Son Thyroid disease Other Hypothyroid Social History Household Members: Significant Other Household Members Other:: 1 Housing: Apartment Do you presently have visiting nurse or other home services: Yes Alcohol intake: current Alcohol intake frequency: does not drink Comment: refuses bed alarm at times Patient Tobacco Use Status: Current someday Tobacco user Tobacco use type: Cigarette Cigarette Packs Per Day: 1 Cigarettes Per Day: 10 Years Smoked: 30 Smoked in Last 30 Days: Yes e-Cigarette/Vaping Use: Never Used Second Hand Smoke Exposure: No Use of substances other than those prescribed or required for medical reasons: No Substance Use Type: Heroin Advance Directives: Yes Advance Directives on File: Yes Advance Directives Date on File: 08/18/23 Do you have a plan to hurt others: No Plan Patient : No service: No Current occupational status: unemployed Meds Allergies Allergy/AdvReac Type Severity Reaction Status Date / Time Penicillins [PENICILLINS] Allergy Unknown RED ITCHY Verified 09/09/24 16:46 RASH SEAFOOD Allergy Unknown FEVER Uncoded 04/02/24 05:57 SWELLING Active Medications: Current Medications Acetaminophen (Acetaminophen 325 Mg Tablet) 650 mg PO Q6H PRN PRN Reason: Pain, Mild 1-3,fever,headache Albuterol/Ipratropium (Albuterol/Iprat 2.5/0.5mg 3 Ml Ampul.Neb) 3 ml INHALE Q4H PRN PRN Reason: Shortness of Breath/Wheezing Albuterol/Ipratropium (Albuterol/Iprat 2.5/0.5mg 3 Ml Ampul.Neb) 3 ml INHALE RQ4H WHILE AWAKE MAYRA Benzonatate (Benzonatate 100 Mg Capsule) 100 mg PO TID PRN PRN Reason: Cough Calcium Carbonate (Calcium Carbonate 750 Mg Tab.Chew) 750 mg PO Q4H PRN PRN Reason: Heartburn Enoxaparin Sodium (Enoxaparin Sodium 40 Mg/0.4 Ml Syringe) 40 mg SUBCUT Q24H MAYRA Sodium Chloride (Ns) 1,000 mls @ 999 mls/hr IV .Q1H1M ONE Stop: 09/09/24 21:27 Magnesium Hydroxide (Milk Of Magnesia 30 Ml Oral.Susp) 30 ml PO DAILY PRN PRN Reason: Constipation Melatonin (Melatonin 3 Mg Tablet) 6 mg PO BEDTIME PRN PRN Reason: Insomnia Ondansetron HCl (Ondansetron Hcl 4 Mg/2 Ml Vial) 4 mg IVPUSH Q8H PRN PRN Reason: Nausea and Vomiting Prednisone (Prednisone 20 Mg Tablet) 40 mg PO DAILY MAYRA Sodium Chloride (0.9 % Sodium Chloride Flush 3 Ml Syringe) 3 ml IVFLUSH QSHIFT [facility] Home Medications ?Medication ?Instructions ?Recorded ?Confirmed ?Last Taken ?Type perphenazine 4 mg tablet 4 mg PO BEDTIME 09/24/21 04/02/24 04/02/24 History levothyroxine 200 mcg tablet 200 mcg PO DAILY@0610/01/22 04/02/24 04/02/24 History sertraline 25 mg tablet 25 mg PO DAILY@119910/01/22 04/02/24 04/02/24 History umeclidinium 62.5 mcg/actuation 1 inh inhalation DAILY 10/01/22 04/02/24 04/02/24 History blister powder for inhalation (Incruse Ellipta) ipratropium 0.5 mg-albuterol 3 mg 3 ml inhalation QID PRN wheezing 04/20/23 04/02/24 12/06/23 History (2.5 mg base)/3 mL nebulization soln sertraline 100 mg tablet 100 mg PO DAILY@119904/20/23 04/02/24 04/02/24 History furosemide 20 mg tablet 20 mg PO BID 08/16/23 04/02/24 04/02/24 History amlodipine 10 mg tablet 5 mg PO DAILY@119909/03/23 04/02/24 04/02/24 History albuterol sulfate 90 mcg/actuation 2 puff inhalation Q6H PRN wheezing 10/06/23 04/02/24 12/06/23 History aerosol inhaler (Ventolin HFA) acetaminophen 500 mg tablet 1,000 mg PO Q8H PRN moderate pain 12/08/23 04/02/24 12/06/23 History hydroxyzine pamoate 25 mg capsule 25 mg PO Q6H PRN itch 12/08/23 04/02/24 Unknown History methadone 10 mg/mL oral concentrate 56 mg PO DAILY 01/06/24 04/02/24 04/01/24 History levothyroxine 25 mcg tablet 25 mcg PO DAILY@59904/02/24 04/02/24 04/02/24 History metformin 500 mg tablet,extended 500 mg PO BID 04/02/24 04/02/24 04/02/24 History release 24 hr rosuvastatin 20 mg tablet 20 mg PO DAILY 04/02/24 04/02/24 Unknown History Physical Exam Vital Signs and Narrative: Vital Signs: Last Vital Signs Temp 99.0 F 09/09/24 18:36 Pulse 106 H 09/09/24 20:00 Resp 20 09/09/24 20:00 BP 102/66 09/09/24 20:00 Pulse Ox 91 L 09/09/24 20:00 O2 Del Method Oxymask 09/09/24 20:00 O2 Flow Rate 8 09/09/24 20:00 Oxygen Flow Rate 5 09/09/24 16:46 BMI result Body Mass Index 30.2 Middle-aged female lying in bed in mild distress on supplemental oxygen Neck supple, no JVD Regular rate and rhythm, S1-S2 heard Bilateral wheezing present Abdomen soft nontender, no guarding, no rigidity Patient is awake, alert and oriented to self, place, time and person ; no focal motor deficit Psych: Normal mood No pedal edema Results Labs 09/09/24 17:41 09/09/24 19:20 Labs: Laboratory Results - last 24 hr 09/09/24 09/09/24 09/09/24 17:41 19:20 19:28 MCV 93.4 MCH 28.7 MCHC 30.7 L RDW 14.6 Plt Count 113 L MPV 11.2 Immature Gran % (Auto) 0.2 Neut % (Auto) 69.2 Lymph % (Auto) 22.9 [place] % (Auto) 5.2 Eos % (Auto) 2.0 Baso % (Auto) 0.5 Lymph # (Auto) 2.2 [place] # (Auto) 0.5 Eos # (Auto) 0.2 Baso # (Auto) 0.1 Abs Immat Gran (auto) 0.02 Absolute Neuts (auto) 6.5 Absolute Nucleated RBC 0.000 Nucleated RBC % (auto) 0.0 Smear Tech's Comments VERIFIED VBG pH 7.40 VBG pCO2 77 VBG pO2 50 VBG HCO3 48 H VBG O2 Saturation 83.0 VBG Base Excess 19.2 Anion Gap 14 Estim Creat Clear Calc 93.9 Estimated GFR > 60 Random Glucose 114 Lactic Acid 0.6 Calcium 9.3 Total Bilirubin 0.5 AST 31 ALT 15 Alkaline Phosphatase 83 Troponin I High Sens 3.4 B-Natriuretic Peptide < 10 Total Protein 7.2 Albumin 4.0 Assessment and Plan (1) Acute respiratory failure with hypoxia: Status: Acute (2) Acute exacerbation of chronic obstructive pulmonary disease (COPD): Status: Acute Plan This is a 58-year-old female with pertinent history of chronic hypoxemic respiratory failure due to COPD on 4-6 L supplemental oxygen, hypothyroidism, opiate use disorder, HCV cirrhosis, mood disorder, hypertension, gastroesophageal reflux disease, mixed hyperlipidemia, tobacco use disorder, NATALIE/OHS noncompliant with NIV who presents to the emergency department for evaluation of dyspnea. #. Acute on chronic hypoxic hypercapnic respiratory failure due to acute exacerbation of COPD: Will admit patient with systemic steroids. Scheduled and p.r.n. DuoNebs. Initiating azithromycin for pleiotropic effect. #. Hypothyroid: On Synthroid #. Opiate use disorder: On methadone #. HCV cirrhosis: No decompensation on admission #. Mood disorder: Continue home mood stabilizers #. Hypertension: On amlodipine and furosemide #. Mixed hyperlipidemia: On statin #. Tobacco use disorder: Counseled regarding cessation. Refused nicotine patch in the hospital #. NATALIE/OHS: NIV while in the hospital Med rec pending DVT prophylaxis: Lovenox Full code Admit as inpatient and will require two night minimum hospital stay for supplemental oxygen, monitoring of respiratory status (as above), which is not possible in a lesser acute setting. Quality Stroke Does the patient have a stroke diagnosis?: No VTE Prior VTE?: No VTE Risk Level:: Medical - moderate - high VTE Device Contraindication: Treatment Not Indicated VTE Drug Contraindication: N/A - Med Ordered
--- NOTE | 2024-09-09 21:08 | PC.NURSE ---
Report given to BRIANNA Miller.
[2024-09-09] MEDS: 0.9 % Sodium Chloride 1,000 ML 999 ML IV (22:16)
[2024-09-09] MEDS: Azithromycin 500 MG in 0.9 % Sodium Chloride 250 ML 125 MG IV (22:18)
[2024-09-09] MEDS: Enoxaparin Sodium 40 MG/0.4 ML SYRINGE SUBCUT (22:19)
[2024-09-09 22:29] LABS: Glucose, Whole Blood 192 mg/dL (60-115)
[2024-09-09] MEDS: Acetaminophen 325 MG TABLET 650 MG PO (22:38)
[2024-09-10] VITALS (11 sets, daily range): BP systolic 111–140; BP diastolic 63–89; PULSE 82–98; RESP 13–20; TEMP 36.3–36.5; O2SAT 85–93; BMI 30.2
--- NOTE | 2024-09-10 00:27 | PC.RT ---
Pt refused NOC NIV
[2024-09-10] MEDS: Albuterol/Iprat 2.5/0.5MG 3 ML AMPUL.NEB INHALE ×5 (02:09→18:56)
[2024-09-10 04:56] LABS: MANUAL DIFF FLAG NO
[2024-09-10 05:00] LABS: Basophils Percent Auto 0.2 % (0-2); Hematocrit 42.4 % (37.0-47.0); Hemoglobin 12.8 g/dl (12.0-16.0); Imm Gran Abs Auto 0.02 X10*3/uL (0.00-0.03); Imm Gran Pct Auto 0.3 % (0.0-0.4); Lymphocytes Absolute Auto 0.7 X10*3/uL (1.2-4.9); Lymphocytes Percent Auto 10.7 % (20-40); Mean Corpuscular HGB Conc 30.2 g/dl (31.0-35.0); Mean Corpuscular Hemoglobin 28.6 pg (27.0-33.0); Mean Corpuscular Volume 94.6 fL (80.0-98.0); Mean Platelet Volume 11.7 fL (9.4-12.3); Monocytes Percent Auto 0.5 % (2-11); Neutrophils Absolute Auto 5.6 x10*3/uL (2.0-8.3); Neutrophils Percent Auto 88.3 % (45-73); Platelet Count 112 X10*3/uL (160-400); Red Blood Count 4.48 X10*6/uL (4.20-5.50); Red Cell Distribution Width 14.5 % (11.0-16.0); White Blood Count 6.4 X10*3/uL (4.8-10.8)
[2024-09-10 05:17] LABS: Anion Gap 17 (12-20); Blood Urea Nitrogen 11 mg/dL (9-16); Calcium 8.8 mg/dL (8.4-10.2); Carbon Dioxide 29 mmol/L (22-29); Chloride 97 mmol/L (96-108); Estimated Glomerular Filt Rate > 60; Glucose Random 257 mg/dL (60-115); Sodium 139 mmol/L (135-145)
[2024-09-10] MEDS: predniSONE 20 MG TABLET 40 MG PO (08:40)
--- NOTE | 2024-09-10 10:34 | HE.PHANOTE ---
METHADONE CONFIRMATION SHEET PATIENT TAKES 56MG FROM [facility]. LAST DOSE 09/09 @ 0800
--- NOTE | 2024-09-10 11:33 | MHC.CM.PN ---
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
[2024-09-10 11:40] LABS: Glucose, Whole Blood 175 mg/dL (60-115)
[2024-09-10] MEDS: Insulin Lispro 100 UNIT/ML 3 ML VIAL SUBCUT ×2 (12:01→17:43)
--- NOTE | 2024-09-10 15:15 | PHA.MEDREC ---
Pharmacy Consult ? Medication Reconciliation Pharmacy has completed the medication reconciliation. Spoke to patient via clinical appeals rn to confirm medication list. Patient was able to confirm some meds but not all. Per patient, she uses 3 inhalers, albuterol, Breo and Incruse. She takes levothyroxine 200 mcg daily and sertraline 100 mg daily and prednisone 20 mg daily. She does not use lidocaine patches. For other meds, she said she takes what [facility] fills for her in blister pack. Last dose of medications was tuesday09/09/24 AM.
[2024-09-10 16:10] LABS: Glucose, Whole Blood 258 mg/dL (60-115)
--- NOTE | 2024-09-10 16:53 | HO.PM.IMPN ---
Subjective Subjective Date of Service: 09/10/24 Interval History: copd excerebation Review of Systems sob somewhat improving denies chest pain Review of Systems: Yes all other systems are reviewed and are negative Physical Exam Vital Signs: Vital Signs: Last Vital Signs Temp 97.6 F 09/10/24 15:47 Pulse 97 09/10/24 15:47 Resp 16 09/10/24 15:47 BP 140/76 H 09/10/24 15:47 Pulse Ox 91 L 09/10/24 15:47 O2 Del Method Nasal Cannula 09/10/24 15:47 O2 Flow Rate 3 09/10/24 15:47 Oxygen Flow Rate 5 09/09/24 16:46 BMI result Body Mass Index 30.2 Appearance: Alert.? Oriented X3.? cvs: rrr, [id number]. res: air entry diminshed,has b/l exp wheezing abd: no rebound or guarding ,nt, bs present. ext pulses present , no cyanosis . neuro: axo3 , nonfocal. Objective Data Active Medications Acetaminophen (Acetaminophen 325 Mg Tablet) 650 mg PO Q6H PRN PRN Reason: Pain, Mild 1-3,fever,headache Last Admin: 09/09/24 22:38 Dose: 650 mg Documented By: EFRAIN Albuterol/Ipratropium (Albuterol/Iprat 2.5/0.5mg 3 Ml Ampul.Neb) 3 ml INHALE Q4H PRN PRN Reason: Shortness of Breath/Wheezing Last Admin: 09/10/24 08:14 Dose: 3 ml Documented By: JOSE Albuterol/Ipratropium (Albuterol/Iprat 2.5/0.5mg 3 Ml Ampul.Neb) 3 ml INHALE RQ4H WHILE AWAKE MAYRA Last Admin: 09/10/24 15:03 Dose: 3 ml Documented By: JOSE Benzonatate (Benzonatate 100 Mg Capsule) 100 mg PO TID PRN PRN Reason: Cough Calcium Carbonate (Calcium Carbonate 750 Mg Tab.Chew) 750 mg PO Q4H PRN PRN Reason: Heartburn Dextrose (Dextrose 50 % 25 Gm/50 Ml Syringe) 25 gm IVPUSH Q15M PRN; Protocol PRN Reason: per Hypoglycemia Standing Ord. Enoxaparin Sodium (Enoxaparin Sodium 40 Mg/0.4 Ml Syringe) 40 mg SUBCUT Q24H [facility] Last Admin: 09/09/24 22:19 Dose: 40 mg Documented By: EFRAIN Glucose (Glucose Gel 15 Gm Gel..Gram.) 15 gm PO Q15M PRN; Protocol PRN Reason: per Hypoglycemia Standing Ord. Azithromycin 500 mg/ Sodium (Chloride) 250 mls @ 125 mls/hr IV Q24H [facility] Last Infusion: 09/10/24 00:18 Dose: Infused Documented By: EFRAIN Insulin Human Lispro (Insulin Lispro 100 Unit/Ml 3 Ml Vial) 0 unit SUBCUT QIDACHS [facility]; Protocol Last Admin: 09/10/24 12:01 Dose: 2 unit Documented By: SORIN Magnesium Hydroxide (Milk Of Magnesia 30 Ml Oral.Susp) 30 ml PO DAILY PRN PRN Reason: Constipation Melatonin (Melatonin 3 Mg Tablet) 6 mg PO BEDTIME PRN PRN Reason: Insomnia Nicotine Polacrilex (Nicotine Polacrilex Lozenge 2 Mg Lozenge) 2 mg BUCCAL Q2H PRN PRN Reason: Nicotine Cravings Ondansetron HCl (Ondansetron Hcl 4 Mg/2 Ml Vial) 4 mg IVPUSH Q8H PRN PRN Reason: Nausea and Vomiting Prednisone (Prednisone 20 Mg Tablet) 40 mg PO DAILY [facility] Last Admin: 09/10/24 08:40 Dose: 40 mg Documented By: BALTA Sodium Chloride (0.9 % Sodium Chloride Flush 3 Ml Syringe) 3 ml IVFLUSH QSHIFT [facility] Last Admin: 09/10/24 08:45 Dose: Not Given Documented By: BALTA Non-Admin Reason: IV not functioning Labs 09/10/24 04:42 09/10/24 04:42 Labs: Laboratory Results - last 24 hr 09/09/24 09/09/24 09/09/24 17:41 19:20 19:28 MCV 93.4 MCH 28.7 MCHC 30.7 L RDW 14.6 Plt Count 113 L MPV 11.2 Immature Gran % (Auto) 0.2 Neut % (Auto) 69.2 Lymph % (Auto) 22.9 [place] % (Auto) 5.2 Eos % (Auto) 2.0 Baso % (Auto) 0.5 Lymph # (Auto) 2.2 [place] # (Auto) 0.5 Eos # (Auto) 0.2 Baso # (Auto) 0.1 Abs Immat Gran (auto) 0.02 Absolute Neuts (auto) 6.5 Absolute Nucleated RBC 0.000 Nucleated RBC % (auto) 0.0 Smear Tech's Comments VERIFIED VBG pH 7.40 VBG pCO2 77 VBG pO2 50 VBG HCO3 48 H VBG O2 Saturation 83.0 VBG Base Excess 19.2 Anion Gap 14 Estim Creat Clear Calc 93.9 Estimated GFR > 60 POC Glucose Random Glucose 114 Lactic Acid 0.6 Calcium 9.3 Total Bilirubin 0.5 AST 31 ALT 15 Alkaline Phosphatase 83 Troponin I High Sens 3.4 B-Natriuretic Peptide < 10 Total Protein 7.2 Albumin 4.0 09/09/24 09/10/24 09/10/24 22:24 04:42 11:32 MCV 94.6 MCH 28.6 MCHC 30.2 L RDW 14.5 Plt Count 112 L MPV 11.7 Immature Gran % (Auto) 0.3 Neut % (Auto) 88.3 H Lymph % (Auto) 10.7 L [place] % (Auto) 0.5 L Eos % (Auto) 0.0 Baso % (Auto) 0.2 Lymph # (Auto) 0.7 L [place] # (Auto) 0.0 L Eos # (Auto) 0.0 Baso # (Auto) 0.0 Abs Immat Gran (auto) 0.02 Absolute Neuts (auto) 5.6 Absolute Nucleated RBC 0.000 Nucleated RBC % (auto) 0.0 Smear Tech's Comments VBG pH VBG pCO2 VBG pO2 VBG HCO3 VBG O2 Saturation VBG Base Excess Anion Gap 17 Estim Creat Clear Calc 106.0 Estimated GFR > 60 POC Glucose 192 H 175 H Random Glucose 257 H Lactic Acid Calcium 8.8 Total Bilirubin AST ALT Alkaline Phosphatase Troponin I High Sens B-Natriuretic Peptide Total Protein Albumin 09/10/24 16:06 MCV MCH MCHC RDW Plt Count MPV Immature Gran % (Auto) Neut % (Auto) Lymph % (Auto) [place] % (Auto) Eos % (Auto) Baso % (Auto) Lymph # (Auto) [place] # (Auto) Eos # (Auto) Baso # (Auto) Abs Immat Gran (auto) Absolute Neuts (auto) Absolute Nucleated RBC Nucleated RBC % (auto) Smear Tech's Comments VBG pH VBG pCO2 VBG pO2 VBG HCO3 VBG O2 Saturation VBG Base Excess Anion Gap Estim Creat Clear Calc Estimated GFR POC Glucose 258 H Random Glucose Lactic Acid Calcium Total Bilirubin AST ALT Alkaline Phosphatase Troponin I High Sens B-Natriuretic Peptide Total Protein Albumin Assessment and Plan (1) Acute exacerbation of chronic obstructive pulmonary disease (COPD): Status: Acute (2) Acute respiratory failure with hypoxia: Status: Acute Assessment and Plan: 58-year-old female with pertinent history of chronic hypoxemic respiratory failure due to COPD on 4-6 L supplemental oxygen, hypothyroidism, opiate use disorder, HCV cirrhosis, mood disorder, hypertension, gastroesophageal reflux disease, mixed hyperlipidemia, tobacco use disorder, NATALIE/OHS noncompliant with NIV who presents to the emergency department for evaluation of dyspnea. Acute on chronic hypoxic hypercapnic respiratory failure due to acute exacerbation of COPD: Will admit patient with systemic steroids. Scheduled and p.r.n. DuoNebs. Initiating azithromycin for pleiotropic effect. Hypothyroid: On Synthroid Opiate use disorder: On methadone HCV cirrhosis: No decompensation on admission Mood disorder: Continue home mood stabilizers Hypertension: On amlodipine and furosemide Mixed hyperlipidemia: On statin. Tobacco use disorder: Counseled regarding cessation. Refused nicotine patch in the hospital NATALIE/OHS: NIV. ongoing need for stay:Acute on chronic hypoxic hypercapnic respiratory failure due to acute exacerbation of COPD: Will admit patient with systemic steroids. Scheduled and p.r.n. DuoNebs. Initiating azithromycin. Quality Stroke Does the patient have a stroke diagnosis?: No VTE Prior VTE?: No VTE Risk Level:: Medical - moderate - high VTE Device Contraindication: Treatment Not Indicated VTE Drug Contraindication: N/A - Med Ordered
[2024-09-10] MEDS: 0.9 % Sodium Chloride Flush 3 ML SYRINGE IVFLUSH ×2 (17:09→22:09)
[2024-09-10] MEDS: methADONE HCl 20 MG/2 ML ORAL.CONC 56 MG PO (17:41)
[2024-09-10] MEDS: Levothyroxine Sodium 200 MCG TABLET PO (17:41)
[2024-09-10 20:50] LABS: Glucose, Whole Blood 184 mg/dL (60-115)
[2024-09-10] MEDS: Enoxaparin Sodium 40 MG/0.4 ML SYRINGE SUBCUT (20:57)
[2024-09-10] MEDS: Melatonin 3 MG TABLET 6 MG PO (20:57)
[2024-09-10] MEDS: Famotidine 20 MG TABLET 40 MG PO (20:57)
[2024-09-10] MEDS: hydrOXYzine HCL 25 MG TABLET PO (20:57)
[2024-09-10] MEDS: Furosemide 20 MG TABLET PO (20:57)
[2024-09-10] MEDS: Perphenazine 4 MG TABLET PO (21:02)
[2024-09-10] MEDS: Azithromycin 500 MG in 0.9 % Sodium Chloride 250 ML 125 MG IV (22:05)
[2024-09-11] VITALS (8 sets, daily range): BP systolic 122–138; BP diastolic 61–85; PULSE 72–92; RESP 18–20; TEMP 36–36.9; O2SAT 91–94
[2024-09-11] MEDS: Levothyroxine Sodium 200 MCG TABLET PO (06:00)
[2024-09-11] MEDS: Omeprazole 20 MG CAPSULE.DR PO (06:00)
[2024-09-11 07:35] LABS: Glucose, Whole Blood 97 mg/dL (60-115)
[2024-09-11] MEDS: Albuterol/Iprat 2.5/0.5MG 3 ML AMPUL.NEB INHALE ×4 (07:53→19:34)
[2024-09-11] MEDS: Furosemide 20 MG TABLET PO ×2 (08:23→20:41)
[2024-09-11] MEDS: predniSONE 20 MG TABLET 40 MG PO (08:23)
[2024-09-11] MEDS: Atorvastatin Calcium 80 MG TABLET PO (08:24)
[2024-09-11] MEDS: Loratadine 10 MG TABLET 5 MG PO (08:24)
[2024-09-11] MEDS: methADONE HCl 20 MG/2 ML ORAL.CONC 56 MG PO (08:25)
[2024-09-11] MEDS: 0.9 % Sodium Chloride Flush 3 ML SYRINGE IVFLUSH ×3 (08:27→20:44)
[2024-09-11 11:36] LABS: Glucose, Whole Blood 167 mg/dL (60-115)
[2024-09-11] MEDS: amLODIPine Besylate 5 MG TABLET PO (11:42)
[2024-09-11] MEDS: Sertraline HCL 100 MG TABLET PO (11:43)
[2024-09-11] MEDS: Insulin Lispro 100 UNIT/ML 3 ML VIAL SUBCUT ×3 (11:44→20:40)
--- NOTE | 2024-09-11 14:19 | HO.PM.IMPN ---
Subjective Subjective Date of Service: 09/11/24 Interval History: Still has some sob and congested Physical Exam Vital Signs: Vital Signs: Last Vital Signs Temp 96.8 F 09/11/24 07:22 Pulse 87 09/11/24 11:07 Resp 18 09/11/24 11:07 BP 138/85 09/11/24 07:22 Pulse Ox 92 09/11/24 07:22 O2 Del Method Nasal Cannula 09/11/24 07:22 O2 Flow Rate 4 09/11/24 07:22 Oxygen Flow Rate 5 09/09/24 16:46 BMI result Body Mass Index 30.2 Appearance: Alert.? Oriented X3.? cvs: rrr, [id number]. res: air entry diminshed,has b/l exp wheezing abd: no rebound or guarding ,nt, bs present. ext pulses present , no cyanosis . neuro: axo3 , nonfocal. Objective Data Active Medications Acetaminophen (Acetaminophen 325 Mg Tablet) 650 mg PO Q6H PRN PRN Reason: Pain, Mild 1-3,fever,headache Last Admin: 09/09/24 22:38 Dose: 650 mg Documented By: EFRAIN Acetaminophen (Acetaminophen 325 Mg Tablet) 975 mg PO Q8H PRN PRN Reason: Pain, Moderate(Pain Scale 4-6) Albuterol/Ipratropium (Albuterol/Iprat 2.5/0.5mg 3 Ml Ampul.Neb) 3 ml INHALE Q4H PRN PRN Reason: Shortness of Breath/Wheezing Last Admin: 09/10/24 08:14 Dose: 3 ml Documented By: JOSE Albuterol/Ipratropium (Albuterol/Iprat 2.5/0.5mg 3 Ml Ampul.Neb) 3 ml INHALE RQ4H WHILE AWAKE [facility] Last Admin: 09/11/24 11:06 Dose: 3 ml Documented By: JOSE Amlodipine Besylate (Amlodipine Besylate 5 Mg Tablet) 5 mg PO DAILY@1200 MAYRA; Protocol Last Admin: 09/11/24 11:42 Dose: 5 mg Documented By: SORIN Atorvastatin Calcium (Atorvastatin Calcium 80 Mg Tablet) 80 mg PO DAILY [facility] Last Admin: 09/11/24 08:24 Dose: 80 mg Documented By: SORIN Benzonatate (Benzonatate 100 Mg Capsule) 100 mg PO TID PRN PRN Reason: cough Calcium Carbonate (Calcium Carbonate 750 Mg Tab.Chew) 750 mg PO Q4H PRN PRN Reason: Heartburn Dextrose (Dextrose 50 % 25 Gm/50 Ml Syringe) 25 gm IVPUSH Q15M PRN; Protocol PRN Reason: per Hypoglycemia Standing Ord. Enoxaparin Sodium (Enoxaparin Sodium 40 Mg/0.4 Ml Syringe) 40 mg SUBCUT Q24H [facility] Last Admin: 09/10/24 20:57 Dose: 40 mg Documented By: VIRGINIA Famotidine (Famotidine 20 Mg Tablet) 40 mg PO BEDTIME [facility] Last Admin: 09/10/24 20:57 Dose: 40 mg Documented By: VIRGINIA Furosemide (Furosemide 20 Mg Tablet) 20 mg PO BID [facility]; Protocol Last Admin: 09/11/24 08:23 Dose: 20 mg Documented By: SORIN Glucose (Glucose Gel 15 Gm Gel..Gram.) 15 gm PO Q15M PRN; Protocol PRN Reason: per Hypoglycemia Standing Ord. Hydroxyzine HCl (Hydroxyzine Hcl 25 Mg Tablet) 25 mg PO BEDTIME [facility] Last Admin: 09/10/24 20:57 Dose: 25 mg Documented By: VIRGINIA Hydroxyzine HCl (Hydroxyzine Hcl 50 Mg Tablet) 50 mg PO BID PRN PRN Reason: itch Azithromycin 500 mg/ Sodium (Chloride) 250 mls @ 125 mls/hr IV Q24H [facility] Last Infusion: 09/11/24 00:06 Dose: Infused Documented By: NIYA Insulin Human Lispro (Insulin Lispro 100 Unit/Ml 3 Ml Vial) 0 unit SUBCUT QIDACHS [facility]; Protocol Last Admin: 09/11/24 11:44 Dose: 2 unit Documented By: SORIN Levothyroxine Sodium (Levothyroxine Sodium 200 Mcg Tablet) 200 mcg PO DAILY@0600 [facility] Last Admin: 09/11/24 06:00 Dose: 200 mcg Documented By: ODRISM Loratadine (Loratadine 10 Mg Tablet) 5 mg PO DAILY [facility] Last Admin: 09/11/24 08:24 Dose: 5 mg Documented By: SORIN Magnesium Hydroxide (Milk Of Magnesia 30 Ml Oral.Susp) 30 ml PO DAILY PRN PRN Reason: Constipation Melatonin (Melatonin 3 Mg Tablet) 6 mg PO BEDTIME PRN PRN Reason: Insomnia Last Admin: 09/10/24 20:57 Dose: 6 mg Documented By: VIRGINIA Methadone HCl (Methadone Hcl 20 Mg/2 Ml Oral.Conc) 56 mg PO DAILY [facility] Last Admin: 09/11/24 08:25 Dose: 56 mg Documented By: SORIN Co-signed By: HORTENCIA Nicotine Polacrilex (Nicotine Polacrilex Lozenge 2 Mg Lozenge) 2 mg BUCCAL Q2H PRN PRN Reason: Nicotine Cravings Omeprazole (Omeprazole 20 Mg Capsule.Dr) 20 mg PO DAILY@0630 [facility] Last Admin: 09/11/24 06:00 Dose: 20 mg Documented By: JAISONRISArielle Ondansetron HCl (Ondansetron Hcl 4 Mg/2 Ml Vial) 4 mg IVPUSH Q8H PRN PRN Reason: Nausea and Vomiting Perphenazine (Perphenazine 4 Mg Tablet) 4 mg PO BEDTIME [facility] Last Admin: 09/10/24 21:02 Dose: 4 mg Documented By: VIRGINIA Prednisone (Prednisone 20 Mg Tablet) 40 mg PO DAILY [facility] Last Admin: 09/11/24 08:23 Dose: 40 mg Documented By: SORIN Senna (Sennosides 8.6 Mg Tablet) 17.2 mg PO BEDTIME PRN PRN Reason: constipation Sertraline HCl (Sertraline Hcl 100 Mg Tablet) 100 mg PO DAILY@1200 [facility] Last Admin: 09/11/24 11:43 Dose: 100 mg Documented By: SORIN Sodium Chloride (0.9 % Sodium Chloride Flush 3 Ml Syringe) 3 ml IVFLUSH QSHIFT [facility] Last Admin: 09/11/24 08:27 Dose: 3 ml Documented By: SORIN Labs 09/10/24 04:42 09/10/24 04:42 Labs: Laboratory Results - last 24 hr 09/10/24 09/10/24 09/11/24 16:06 20:37 07:20 POC Glucose 258 H 184 H 97 09/11/24 11:30 POC Glucose 167 H Assessment and Plan (1) Acute exacerbation of chronic obstructive pulmonary disease (COPD): Status: Acute (2) Acute respiratory failure with hypoxia: Status: Acute Assessment and Plan: 58-year-old female with pertinent history of chronic hypoxemic respiratory failure due to COPD on 4-6 L supplemental oxygen, hypothyroidism, opiate use disorder, HCV cirrhosis, mood disorder, hypertension, gastroesophageal reflux disease, mixed hyperlipidemia, tobacco use disorder, NATALIE/OHS noncompliant with NIV who presents to the emergency department for evaluation of dyspnea. Acute on chronic hypoxic hypercapnic respiratory failure due to acute exacerbation of COPD continue PO prednisone bronchodilators by Neb Hypothyroid: On Synthroid Opiate use disorder: On methadone HCV cirrhosis: No decompensation on admission Mood disorder: Continue home mood stabilizers Hypertension: On amlodipine and furosemide Mixed hyperlipidemia: On statin. Tobacco use disorder: Counseled regarding cessation. Refused nicotine patch in the hospital NATALIE/OHS: NIV. ongoing need for stay:Acute on chronic hypoxic hypercapnic respiratory failure due to acute exacerbation of COPD: Will admit patient with systemic steroids. Scheduled and p.r.n. DuDeanbs. Initiating azithromycin. Quality Stroke Does the patient have a stroke diagnosis?: No VTE Prior VTE?: No VTE Risk Level:: Medical - moderate - high VTE Device Contraindication: Treatment Not Indicated VTE Drug Contraindication: N/A - Med Ordered
[2024-09-11 16:08] LABS: Glucose, Whole Blood 187 mg/dL (60-115)
[2024-09-11 20:36] LABS: Glucose, Whole Blood 165 mg/dL (60-115)
[2024-09-11] MEDS: Enoxaparin Sodium 40 MG/0.4 ML SYRINGE SUBCUT (20:40)
[2024-09-11] MEDS: Perphenazine 4 MG TABLET PO (20:41)
[2024-09-11] MEDS: Famotidine 20 MG TABLET 40 MG PO (20:41)
[2024-09-11] MEDS: hydrOXYzine HCL 25 MG TABLET PO (20:41)
[2024-09-11] MEDS: Azithromycin 500 MG in 0.9 % Sodium Chloride 250 ML 125 MG IV (21:58)
[2024-09-11] MEDS: Acetaminophen 325 MG TABLET 650 MG PO (22:07)
[2024-09-12 04:00] VITALS: BP 140/80; PULSE 81; RESP 20; TEMP 36.5; O2SAT 94
[2024-09-12] MEDS: Levothyroxine Sodium 200 MCG TABLET PO (06:24)
[2024-09-12] MEDS: Omeprazole 20 MG CAPSULE.DR PO (06:24)
[2024-09-12 07:32] VITALS: PULSE 81; RESP 20; O2SAT 93
[2024-09-12] MEDS: Albuterol/Iprat 2.5/0.5MG 3 ML AMPUL.NEB INHALE ×2 (07:32→11:24)
[2024-09-12 07:35] VITALS: BP 130/87; PULSE 86; RESP 16; TEMP 36.1; O2SAT 96
[2024-09-12 07:40] LABS: Glucose, Whole Blood 100 mg/dL (60-115)
[2024-09-12] MEDS: Furosemide 20 MG TABLET PO (07:58)
[2024-09-12] MEDS: predniSONE 20 MG TABLET 40 MG PO (07:58)
[2024-09-12] MEDS: Atorvastatin Calcium 80 MG TABLET PO (07:58)
[2024-09-12] MEDS: methADONE HCl 20 MG/2 ML ORAL.CONC 56 MG PO (07:58)
[2024-09-12] MEDS: Acetaminophen 325 MG TABLET 650 MG PO (07:58)
[2024-09-12] MEDS: Loratadine 10 MG TABLET 5 MG PO (07:59)
[2024-09-12] MEDS: 0.9 % Sodium Chloride Flush 3 ML SYRINGE IVFLUSH (07:59)
--- NOTE | 2024-09-12 10:18 | P.DS_ITS ---
DS: Providers Provider Date of Service: 09/12/24 Date of admission: 09/09/24 20:54 Date of discharge: 09/12/24 Primary care physician: Unknown Physician DS: Diagnosis Discharge Diagnosis (1) Acute exacerbation of chronic obstructive pulmonary disease (COPD): Status: Acute (2) Acute respiratory failure with hypoxia: Status: Acute DS: Summary Hospital Course Hospital Course: admission hpi Chief Complaint: Dyspnea This is a 58-year-old female with pertinent history of chronic hypoxemic respiratory failure due to COPD on 4-6 L supplemental oxygen, hypothyroidism, opiate use disorder, HCV cirrhosis, mood disorder, hypertension, gastroesophageal reflux disease, mixed hyperlipidemia, tobacco use disorder, NATALIE/OHS noncompliant with NIV who presents to the emergency department for evaluation of dyspnea. Patient states symptoms started few days prior to presentation and has been progressive. She was unable to take it so decided to present to the ER. She has been feeling unwell and has been having dyspnea which is worse with exertion. Also has been having cough with purulent sputum production. Has associated wheezing which is not relieved with home inhaler. No orthopnea. No fever, chills, chest pain, palpitations, abdominal pain, changes in urinary or bowel habits. Denies orthopnea or PND In the emergency department, patient requiring 6 L supplemental oxygen and with wheezing despite multiple DuoNeb treatments. hospital course: Patient presented with dyspnea, wheezing and more hypoxic than usual using more oxygen and was admitted for copd exacerbation and acute bronchitis, she was treated with bronchodilators by Neb, IV steroid in the Ed and continued on PO prednisone. She has made singnicant recovery, feeling much better and using her home anount of oxygen, her lungs has better air movment, no wheezing, she feels comfortable going home today. She will complete 5 days of 40 mg daily of prednisone and and azithromycin for a total of 5 days. Physical Exam Vital Signs: Vital Signs: Last Vital Signs Temp 96.9 F 09/12/24 07:35 Pulse 86 09/12/24 07:35 Resp 16 09/12/24 07:35 BP 130/87 09/12/24 07:35 Pulse Ox 96 09/12/24 07:35 O2 Del Method Nasal Cannula 09/12/24 07:35 O2 Flow Rate 4 09/12/24 07:35 Oxygen Flow Rate 5 09/09/24 16:46 BMI result Body Mass Index 30.2 General: AO X 3, no acute distress Resp: CTA bilateral CVS: S1,S2,RRR GI: +BS, NT, no distention Skin: No rash Neuro: motor grossly intact Psych: appropriate affect DS: Data Data Completed and Pending Completed studies during hospitalization [Text1]: Procedures Assistance with Respiratory Ventilation, Less than 24 Consecutive Hours, Continuous Positive Airway Pressure (04/03/24) Insertion of Endotracheal Airway into Trachea, Via Natural or Artificial Opening (10/25/23) Insertion of Infusion Device into Superior Vena Cava, Percutaneous Approach (06/30/23) Introduction of Vasopressor into Peripheral Vein, Percutaneous Approach (10/25/23) Respiratory Ventilation, 24-96 Consecutive Hours (10/25/23) Respiratory Ventilation, Less than 24 Consecutive Hours (06/30/23) Ultrasonography of Superior Vena Cava, Guidance (06/30/23) Labs on day of discharge: Laboratory Results - last 24 hr 09/11/24 09/11/24 09/11/24 11:30 16:04 20:21 POC Glucose 167 H 187 H 165 H 09/12/24 07:33 POC Glucose 100 Discharge Plan Discharge Anticipated Discharge Date/Time: 09/12/24 10:11 Patient Disposition: Home, Self-Care Discharge Diagnosis: Acute copd exacerbation Referrals: Physician,Unknown J [Primary Care Provider, Medical] - 1 Week Discharge Medications: New prednisone 20 mg tablet 40 mg PO DAILY Qty: 4 0RF Rx Instructions: next dose 09/13/24 Continued ipratropium-albuterol 0.5 mg-3 mg(2.5 mg base)/3 mL solution for nebulization 3 ml inhalation QID PRN (Reason: wheezing) sertraline 100 mg Tablet 100 mg PO DAILY@1200 benzonatate 100 mg capsule 100 mg PO TID PRN (Reason: cough) Qty: 20 0RF cetirizine 10 mg tablet 5 mg PO DAILY hydroxyzine pamoate 25 mg capsule 25 mg PO BEDTIME prednisone 20 mg Tablet 20 mg PO DAILY furosemide 20 mg tablet 20 mg PO BID amlodipine 10 mg tablet 5 mg PO DAILY@1200 albuterol sulfate [Ventolin HFA] 90 mcg/actuation HFA aerosol inhaler 2 puff INHALATION Q6H PRN (Reason: wheezing) acetaminophen 500 mg tablet 1,000 mg PO Q8H PRN (Reason: moderate pain) hydroxyzine pamoate 25 mg capsule 50 mg PO BID PRN (Reason: itch) methadone 10 mg/mL concentrate 56 mg PO DAILY fluticasone furoate-vilanterol [Breo Ellipta] 200-25 mcg/dose Blister With Device 1 inh inhalation DAILY Qty: 60 0RF metformin 500 mg tablet extended release 24 hr 500 mg PO BID rosuvastatin 20 mg Tablet 20 mg PO DAILY perphenazine 4 mg tablet 4 mg PO BEDTIME Incruse Ellipta 62.5 mcg/actuation blister with device 1 inh inhalation DAILY levothyroxine 200 mcg tablet 200 mcg PO DAILY@0600 sennosides [senna] 8.6 mg tablet 17.2 mg PO BEDTIME PRN (Reason: constipation) Qty: 60 6RF pantoprazole 40 mg tablet,delayed release (DR/EC) 40 mg PO DAILY Qty: 30 6RF famotidine 40 mg tablet 40 mg PO BEDTIME Qty: 30 6RF docusate sodium 100 mg capsule 100 mg PO BID PRN (Reason: Constipation) Qty: 60 6RF Discharge Orders: Discharge Order (Routine); Ordered 09/12/24 Ordered By: Karthikeyan Whitley Diet: Advance to usual diet Activity on Discharge: As tolerated Stand Alone Forms: Patient Portal Discharge page Print Language: Citizen Of [place] Care Plan Goals: recovery from copd exacerbation and prevent rehospitalization Health Concerns: copd, chronic oxygen dependency Plan of Treatment: take prednisone as directed use inhaler as directed use oxygen as directed follow up with your doctor in a week Assessment: see above
--- NOTE | 2024-09-12 10:46 | MHC.CM.PN ---
Addendum entered by Zulay Dowd RN 09/12/24 10:51: Will transport home via [employer]. RN aware. Original Note: Patient medically cleared for dc home w/ resumption of [facility] and [facility] services. Informed [facility] of dc via [facility], also send dc summary and last dose letter. No response. Attempted to notify via telephone and LM with answering service.
[2024-09-12 11:25] VITALS: PULSE 86; RESP 16; O2SAT 94
[2024-09-12 12:13] LABS: Glucose, Whole Blood 265 mg/dL (60-115)
== END 2024-09-12 12:31 | disposition home or self-care (01) | DRG 140 ==
LOC: HO.ED 19:55 → HO.EDOVER 21:08 → HO.S3 09-10 09:09
PROVIDERS: Internal Medicine; Admitting Provider Student in an Organized Health Care Education/Training Program; Emergency Provider Internal Medicine; Visit Provider Internal Medicine
DX: J44.1 Chronic obstructive pulmonary disease with (acute) exacerbation (principal); J96.21 Acute and chronic respiratory failure with hypoxia; K74.69 Other cirrhosis of liver; Z99.81 Dependence on supplemental oxygen; J96.22 Acute and chronic respiratory failure with hypercapnia; F11.20 Opioid dependence, uncomplicated; E66.2 Morbid (severe) obesity with alveolar hypoventilation; Z68.30 Body mass index [BMI] 30.0-30.9, adult; E03.9 Hypothyroidism, unspecified; E78.2 Mixed hyperlipidemia; I10 Essential (primary) hypertension; F17.210 Nicotine dependence, cigarettes, uncomplicated; B19.20 Unspecified viral hepatitis C without hepatic coma; Z71.6 Tobacco abuse counseling; Z91.199 Patient's noncompliance with other medical treatment and regimen due to unspecified reason; Z79.51 Long term (current) use of inhaled steroids; Z79.52 Long term (current) use of systemic steroids; Z79.84 Long term (current) use of oral hypoglycemic drugs; Z79.890 Hormone replacement therapy; Z79.899 Other long term (current) drug therapy
CPT/HCPCS: 36415; 71045; 80048; 80053; 82803; 82947; 83605; 83880; 84484; 85025; 93005; 94640; 94660; 99285; J0456; J0696; J1650; J2919; J3475

== ENCOUNTER → 2024-09-09 16:54 | Outpatient (BNV) | payer MEDICAID, SELFPAY | PROVIDERS: Admitting Provider Student in an Organized Health Care Education/Training Program; Emergency Provider Internal Medicine; Visit Provider Internal Medicine Cardiovascular Disease | DX: R00.0 Tachycardia, unspecified (principal) | CPT/HCPCS: 93010 ==

== ENCOUNTER → 2024-09-09 17:30 | Outpatient (BNV) | payer MEDICAID, SELFPAY | PROVIDERS: Emergency Provider Internal Medicine; Visit Provider Radiology Diagnostic Radiology | DX: J98.11 Atelectasis (principal) | CPT/HCPCS: 71045 ==

== ENCOUNTER → 2024-09-09 20:54 | Outpatient (BNV) | payer MEDICAID, SELFPAY | PROVIDERS: Admitting Provider Student in an Organized Health Care Education/Training Program; Emergency Provider Internal Medicine; Visit Provider Student in an Organized Health Care Education/Training Program | DX: J96.01 Acute respiratory failure with hypoxia (principal); J44.1 Chronic obstructive pulmonary disease with (acute) exacerbation | CPT/HCPCS: 99222 ==

== ENCOUNTER 2025-01-22 10:15 | Outpatient (REF) | payer MEDICAID, SELFPAY ==
--- NOTE | 2025-01-22 | EMG_ITS ---
Chief complaint:?M79.641 M79.642 Bilateral hand pain Reason for referral: Bilateral hand pain Referred by:?Cathleen Anderson MD Procedure done: Bilateral upper extremities NCS/EMG Bilateral median and ulnar motor studies were performed. Bilateral median and ulnar mixed sensory studies were performed and radial sensory studies were performed. EMG needle examination was performed but limited to right side as she did not tolerate this test. Findings: Bilateral median distal latencies are significantly prolonged more than 2-1/2 times of normal with normal amplitudes and conduction velocities. Left median mixed study did not reveal any response while right study revealed significantly delayed distal latencies and velocity of 17 me to per sec. Otherwise no significant abnormality noted. 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 MTDD
--- OUTSIDE RECORDS SUMMARY | 2025-01-22 12:35 | XMS_ITS | Clinical Summary ---
Author Organization [employer] Address [address] [place] [address] Care Team Providers [employer] Name Role Phone Cathleen Mo MD Primary Care Provider [phone] Tad Baez PharmD Unavailable [phone] Sylwia Camarena RN Unavailable [phone] Josey Joy Unavailable Allergies Active Allergy Reactions Criticality Noted [...] mg by mouth Once per day. 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 45 tablet 1 025 Active sertraline (Zoloft) 25 MG tablet Take 25 mg by mouth Once per day. Active guaiFENesin (Mucinex) 600 MG 12 hr tablet Take 1 tablet (600 mg) by mouth if needed in the morning and at bedtime for cough or congestion. Do not crush, chew, or split. 30 tablet 025 2025 Active Alcohol Swabs (Alcohol Prep) 70 % padsIndications:T ype 2 diabetes mellitus without complication, without long-term current use of insulin ([facility]) USE DIRECTED TWICE DAILY 100 each Active glucose blood (FREESTYLE LITE) test stripIndications: Type 2 diabetes mellitus without complication, without long-term current use of insulin ([facility]) TEST BLOOD SUGAR TWICE DAILY 100 strip Active TRUEplus Lancets 33G miscIndications:T ype 2 diabetes mellitus without complication, without long-term current use of insulin ([facility]) TEST BLOOD SUGAR TWICE DAILY 100 each Active acetaminophen (Tylenol Extra Strength) 500 MG tabletIndications :COPD exacerbation ([facility]/HCC) ([facility]) Take 2 tablets (1,000 mg) by mouth every 8 (eight) hours if needed for mild pain or moderate pain. 180 tablet Active hydrocortisone 2.5 % cream Apply pea sized amount to skin bid for 1 week 15 g Active econazole nitrate 1 % cream Apply topically Once per day. 30 g 2 Active Ventolin HFA 108 (90 Base) MCG/ACT inhaler INHALE 2 PUFFS BY MOUTH EVERY 6 HOURS NEEDED FOR WHEEZING 18 g 4 Active amLODIPine (Norvasc) 5 MG tablet TAKE 1 TABLET BY MOUTH EVERYDAY AT NOON 90 tablet 1 Active lidocaine (Lidoderm) 5 % patch Apply 1 patch topically if needed each day for mild pain. Remove & discard patch within 12 hours or as directed by MD.APPLY 1 PATCH TOPICALLY TO SKIN, LEAVE ON FOR 12 HOURS AND OFF FOR 12 HOURS DIRECTED NEEDED FOR PAIN 30 patch Active nystatin (Mycostatin) 643639 UNIT/GM powderIndications :Intertrigo Apply topically 2 times daily. 30 g 025 2025 Active ipratropium-albut lesley (Duo-Neb) 0.5-2.5 mg/3 mL nebulizer solution INHALE 1 AMPULE USING A NEBULIZER FOUR TIMES DAILY NEEDED FOR WHEEZING OR SHORTNESS OF BREATH 180 mL 1 Active furosemide (Lasix) 20 MG tablet TAKE 1 TABLET BY MOUTH TWICE DAILY 180 tablet 1 Active levothyroxine (Synthroid, Levoxyl) 25 MCG tabletIndications :Other specified hypothyroidism TAKE 1 TABLET BY MOUTH EVERY MORNING 90 tablet 1 Active cetirizine (ZyrTEC) 10 MG tablet TAKE 1/2 TABLET BY MOUTH EVERY DAY 45 tablet 1 025 Active rosuvastatin (Crestor) 20 MG tablet TAKE 1 TABLET BY MOUTH AT BEDTIME 90 tablet 3 Active celecoxib (CeleBREX) 100 MG capsule Take 1 capsule (100 mg) by mouth if needed in the morning and at bedtime for mild pain. 60 capsule 2 025 2024 Active Breo Ellipta 200-25 MCG/ACT aerosol powder inhale 1 PUFF BY MOUTH EVERY DAY RINSE MOUTH AFTER USING. 28 each Active fluticasone (Flonase) 50 MCG/ACT nasal spray INSTILL 2 SPRAYS IN EACH NOSTRIL ONCE DAILY 48 g Active Breo Ellipta 200-25 MCG/ACT aerosol powder Inhale 1 puff Once per day. 30 each 11 024 2024 Discontinued fluticasone (Flonase) 50 MCG/ACT nasal spray INSTILL 2 SPRAYS IN EACH NOSTRIL ONCE DAILY 48 g 025 2024 Discontinued doxycycline (Vibra-Tabs) 100 MG tablet Take 1 tablet (100 mg) by mouth 2 times daily for 7 days. Take with a full glass of water and do not lie down for at least 30 minutes after. 14 tablet 025 2024 predniSONE (Deltasone) 10 MG tablet Take 5 tablets (50 mg) by mouth Once per day for 2 days, THEN 4 tablets (40 mg) Once per day for 2 days, THEN 3 tablets (30 mg) Once per day for 2 days, THEN 2 tablets (20 mg) Once per day for 2 days, THEN 1 tablet (10 mg) Once per day for 2 days. 30 tablet 025 2024 Active Problems [...] leg, and APAP prn - referred to leather grader as requested by patient's caregiver - prescribe a cane to offload the weight Assessment & Plan (10/12/2023 11:52 AM EDT): - s/p fall - X-ray on 10/04/23 shows mildly displaced fracture of 2nd distal phalanx - continue off weight, ice, elevate leg, and APAP prn - refer to leather grader as requested by patient's caregiver Popliteal cyst, right 10/02/2023 Assessment & Plan (10/11/2023 11:43 AM EDT): -seen on US during recent admission -repeat US Assessment & Plan (10/02/2023 4:46 PM EDT): -seen on US during recent admission -repeat US Abdominal bloating 09/27/2023 Centrilobular emphysema 09/27/2023 Overview (06/16/2024): - Printing Sales Representative: Ashly, last seen on 06/07/24 - Severe [...] supplemental oxygen 4L-6L; recommended to discuss with technical services manager regarding to oxygen concentrator. - Anticipate to start BiPAP 21/7 mmHg - Strongly encouraged to get COVID vaccine - Keep appt with technical services manager and resume pulmonary rehab. -Treatment Hx: Budesonide - Formoterol (Symbicort) was changed to Wixela in Jan 2023. Plan to try fluticasone / umeclidinium / vilanterol (Trelegy) per technical services manager. Colon cancer screening 09/27/2023 Assessment & Plan [...] 1:21 PM EST): -Will check labs Cirrhosis (CMS/HCC) 03/01/2023 Assessment & Plan (12/29/2024 11:50 PM EDT): Following with [facility], last seen in Nov 2023 FIB-4 index 1.78 Check the status of US (advised to call the office with adult caregiver) Avoid hepatotoxic drugs Maintain non-alcohol life Follow up with GI as scheduled Assessment & Plan (06/16/2024 6:01 AM EDT): Following with [facility], last seen in Nov 2023 FIB-4 index 1.78 Check the status of US (advised to call the office with adult caregiver) Avoid hepatotoxic drugs Maintain non-alcohol life Follow up with GI as scheduled Assessment & Plan (05/03/2024 5:15 PM EST): Following with [facility], last seen in Nov 2023 FIB-4 index 1.78 Check the status of US (advised to call the office with adult caregiver) Avoid hepatotoxic drugs Maintain non-alcohol life Follow up with GI as scheduled Assessment & Plan (03/26/2024 5:03 PM EST): Following with [facility], last seen in Nov 2023 FIB-4 index 1.78 Check the status of US (advised to call the office with adult caregiver) Avoid hepatotoxic drugs Maintain non-alcohol life Follow up with GI as scheduled Assessment & Plan (02/06/2024 5:37 AM EST): Following with [facility], last seen in Nov 2023 FIB-4 index 1.78 Check the status of US (advised to call the office with adult caregiver) Avoid hepatotoxic drugs Maintain non-alcohol life Follow up with GI as scheduled Assessment & Plan (11/29/2023 11:32 AM EDT): Following with [facility], last seen in May 2023 FIB-4 index 1.78 Check the status of US Avoid hepatotoxic drugs Maintain non-alcohol life Follow up with GI as scheduled Assessment & Plan (10/11/2023 11:42 AM EDT): Following with [facility], last seen in May 2023 FIB-4 index 1.78 Check the status of US Avoid hepatotoxic drugs Maintain non-alcohol life Follow up with GI as scheduled Assessment & Plan (10/02/2023 4:34 PM EDT): Following with [facility], last seen in May 2023 FIB-4 index 1.78 Check the status of US Avoid hepatotoxic drugs Maintain non-alcohol life Follow up with GI as scheduled Assessment & Plan (08/27/2023 6:55 AM EDT): Following with [facility], last seen in May 2023 FIB-4 [...] and hyp ercapnia 09/09/2022 Assessment & Plan (12/31/2024 9:22 AM EDT): - Printing Sales Representative: Ashly, last seen on 06/07/24 - Severe exacerbation 1-2 times per month for the last 6 months - Most recent hospitalization for severe COPD exacerbation in Mar 2024. Treated with IV steroid, antibiotic, and BiPAP. - Most recent COPD exacerbation on 12/25/2024, mild. Treat with doxycycline and prednisone. Moderate exacerbation on 08/28/24. Treated with azithromycin and [...] supplemental oxygen 4L-6L; recommended to discuss with technical services manager regarding to oxygen concentrator. - Anticipate to start BiPAP 21/7 mmHg - Strongly encouraged to get COVID vaccine - Keep appt with technical services manager and resume pulmonary rehab. -Treatment Hx: Budesonide - Formoterol (Symbicort) was changed to Wixela in Jan 2023. Plan to try fluticasone / umeclidinium / vilanterol (Trelegy) per technical services manager. Assessment & Plan (09/10/2024 8:56 AM EDT): - Printing Sales Representative: Ashly, last seen on 06/07/24 - Severe [...] supplemental oxygen 4L-6L; recommended to discuss with technical services manager regarding to oxygen concentrator. - Anticipate to start BiPAP 21/7 mmHg - Strongly encouraged to get COVID vaccine - Keep appt with technical services manager and resume pulmonary rehab. -Treatment Hx: Budesonide - Formoterol (Symbicort) was changed to Wixela in Jan 2023. Plan to try fluticasone / umeclidinium / vilanterol (Trelegy) per technical services manager. Assessment & Plan (06/16/2024 5:58 AM EDT): - Printing Sales Representative: Ashly, last seen on 06/07/24 - Severe [...] supplemental oxygen 4L-6L; recommended to discuss with technical services manager regarding to oxygen concentrator. - Anticipate to start BiPAP 21/7 mmHg - Strongly encouraged to get COVID vaccine - Keep appt with technical services manager and resume pulmonary rehab. -Treatment Hx: Budesonide - Formoterol (Symbicort) was changed to Wixela in Jan 2023. Plan to try fluticasone / umeclidinium / vilanterol (Trelegy) per technical services manager. Assessment & Plan (05/03/2024 5:14 PM EST): - Printing Sales Representative: Ashly, last seen on 12/29/23 - Severe [...] supplemental oxygen 4L-6L; recommended to discuss with technical services manager regarding to oxygen concentrator. - Strongly encouraged to get COVID vaccine - Keep appt with technical services manager and resume pulmonary rehab. -Treatment Hx: Budesonide - Formoterol (Symbicort) was changed to Wixela in Jan 2023. Plan to try Trelegy. Assessment & Plan (04/02/2024 6:16 AM EST): - Printing Sales Representative: Ashly, last seen on 11/18/23 - Severe [...] supplemental oxygen 4L-6L; recommended to discuss with technical services manager regarding to oxygen concentrator. - Strongly encouraged to get COVID vaccine - Keep appt with technical services manager and resume pulmonary rehab. -Treatment Hx: Budesonide - Formoterol (Symbicort) was changed to Wixela in Jan 2023. Plan to try Trelegy. -Since she seldom sees her [facility] technical services manager, and she is well-known to [facility] technical services manager / critical medicine teams, we discussed about transferring care to [facility] pulmonology. Patient agreed with the plan initially, but decided to stay with [facility] technical services manager. Assessment & Plan (02/06/2024 5:34 AM EST): - Printing Sales Representative: Ashly, last seen on 11/18/23 - Severe [...] supplemental oxygen 4L-6L; recommended to discuss with technical services manager regarding to oxygen concentrator. - Strongly encouraged to get COVID vaccine - Keep appt with technical services manager and resume pulmonary rehab. -Treatment Hx: Budesonide - Formoterol (Symbicort) was changed to Wixela in Jan 2023. Plan to try Trelegy. -Since she seldom sees her [facility] technical services manager, and she is well-known to [facility] technical services manager / critical medicine teams, we discussed about transferring care to [facility] pulmonology. Patient agreed with the plan initially, but decided to stay with [facility] technical services manager. Assessment & Plan (11/29/2023 11:51 AM EDT): - Printing Sales Representative: Ashly, last seen on 11/18/23 - Severe [...] supplemental oxygen 4L-6L; recommended to discuss with technical services manager regarding to oxygen concentrator. - Strongly encouraged to get COVID vaccine - Keep appt with technical services manager -Treatment Hx: Budesonide - Formoterol (Symbicort) was changed to Wixela in Jan 2023. Plan to try Trelegy. Assessment & Plan (10/11/2023 11:41 AM EDT): - Printing Sales Representative: Ashly, last seen on 05/31/23 - Severe [...] supplemental oxygen 4L-6L; recommended to discuss with technical services manager regarding to oxygen concentrator. - Strongly encouraged to get COVID vaccine - Keep appt with technical services manager -Treatment Hx: Budesonide - Formoterol (Symbicort) was changed to Wixela in Jan 2023. Plan to try Trelegy. Assessment & Plan (10/04/2023 5:21 PM EDT): - Printing Sales Representative: Ashly, last seen on 05/31/23 - Severe [...] supplemental oxygen 4L-6L; recommended to discuss with technical services manager regarding to oxygen concentrator. - Strongly encouraged to get COVID vaccine - Keep appt with technical services manager -Treatment Hx: Budesonide - Formoterol (Symbicort) was changed to Wixela in Jan 2023. Plan to try Trelegy. Assessment & Plan (08/23/2023 3:08 PM EDT): - Printing Sales Representative: Ashly, last seen on 05/31/23 - Severe [...] supplemental oxygen 4L-6L; recommended to discuss with technical services manager regarding to oxygen concentrator. - Strongly encouraged to get COVID vaccine - Keep appt with technical services manager -Treatment Hx: Budesonide - Formoterol (Symbicort) was changed to Wixela in Jan 2023. Plan to try Trelegy. Assessment & Plan (05/08/2023 6:27 AM EST): - Printing Sales Representative: Ashly, last seen on 01/28/23 - Acute [...] get COVID vaccine - Keep appt with technical services manager. Plan at last visit was to do a nocturnal polysomnogram with TCCO2 monitoring to evaluate for nocturnal non-invasive ventilator assessment and chest CT w/o contrast and TTE after polysomnogram Assessment & Plan (03/01/2023 6:50 AM EST): - Printing Sales Representative: Ashly, last seen on 01/28/23 - Severe [...] Dx COPD exacerbation, CAP, Tx azithromycin - [facility] hospitalization 01/11/19-01/17/19, b/l lower lobe pneumonia, L [...] get COVID vaccine - Keep appt with technical services manager -Treatment Hx: Budesonide - Formoterol (Symbicort) was changed to Wixela in Jan 2023. Plan to try Trelegy. Gastroesophageal reflux disease 09/09/2022 Assessment & Plan (08/23/2023 3:11 PM EDT): [facility], last seen in May 2023 Continue pantoprazole and famotidine History of alcohol use disorder 09/09/2022 History of intravenous drug abuse 09/09/2022 Post-traumatic stress disorder 09/09/2022 COPD (chronic obstructive pulmonary disease) Assessment & Plan (12/31/2024 9:22 AM EDT): - Printing Sales Representative: Ashly, last seen on 06/07/24 - Severe exacerbation 1-2 times per month for the last 6 months - Most recent hospitalization for severe COPD exacerbation in Mar 2024. Treated with IV steroid, antibiotic, and BiPAP. - Most recent COPD exacerbation, today, 12/25/2024. Mild. Will treat with doxycycline and prednisone. Last moderate exacerbation on 08/28/24, seen in the walk-in [...] supplemental oxygen 4L-6L; recommended to discuss with technical services manager regarding to oxygen concentrator. - Anticipate to start BiPAP 21/7 mmHg - Strongly encouraged to get COVID vaccine - Keep appt with technical services manager and resume pulmonary rehab. -Treatment Hx: Budesonide - Formoterol (Symbicort) was changed to Wixela in Jan 2023. Plan to try fluticasone / umeclidinium / vilanterol (Trelegy) per technical services manager. Assessment & Plan (09/10/2024 8:55 AM EDT): - Printing Sales Representative: [facility], last seen on 06/07/24 - Severe [...] supplemental oxygen 4L-6L; recommended to discuss with technical services manager regarding to oxygen concentrator. - Anticipate to start BiPAP 21/7 mmHg - Strongly encouraged to get COVID vaccine - Keep appt with technical services manager and resume pulmonary rehab. -Treatment Hx: Budesonide - Formoterol (Symbicort) was changed to Wixela in Jan 2023. Plan to try fluticasone / umeclidinium / vilanterol (Trelegy) per technical services manager. Assessment & Plan (06/16/2024 5:57 AM EDT): - Printing Sales Representative: [facility], last seen on 06/07/24 - Severe [...] supplemental oxygen 4L-6L; recommended to discuss with technical services manager regarding to oxygen concentrator. - Anticipate to start BiPAP 21/7 mmHg - Strongly encouraged to get COVID vaccine - Keep appt with technical services manager and resume pulmonary rehab. -Treatment Hx: Budesonide - Formoterol (Symbicort) was changed to Wixela in Jan 2023. Plan to try fluticasone / umeclidinium / vilanterol (Trelegy) per technical services manager. Assessment & Plan (05/03/2024 5:06 PM EST): - Printing Sales Representative: [facility], last seen on 12/29/23 - Severe exacerbation [...] supplemental oxygen 4L-6L; recommended to discuss with technical services manager regarding to oxygen concentrator. - Strongly encouraged to get COVID vaccine - Keep appt with technical services manager and resume pulmonary rehab. -Treatment Hx: Budesonide - Formoterol (Symbicort) was changed to Wixela in Jan 2023. Plan to try fluticasone / umeclidinium / vilanterol (Trelegy) per technical services manager. Assessment & Plan (04/02/2024 6:16 AM EST): - Printing Sales Representative: Ashly, last seen on 11/18/23 - Severe [...] supplemental oxygen 4L-6L; recommended to discuss with technical services manager regarding to oxygen concentrator. - Strongly encouraged to get COVID vaccine - Keep appt with technical services manager and resume pulmonary rehab. -Treatment Hx: Budesonide - Formoterol (Symbicort) was changed to Wixela in Jan 2023. Plan to try Trelegy. -Since she seldom sees her [facility] technical services manager, and she is well-known to [facility] technical services manager / critical medicine teams, we discussed about transferring care to [facility] pulmonology. Patient agreed with the plan initially, but decided to stay with [facility] technical services manager. Assessment & Plan (02/06/2024 5:33 AM EST): - Printing Sales Representative: Ashly, last seen on 11/18/23 - Severe [...] supplemental oxygen 4L-6L; recommended to discuss with technical services manager regarding to oxygen concentrator. - Strongly encouraged to get COVID vaccine - Keep appt with technical services manager and resume pulmonary rehab. -Treatment Hx: Budesonide - Formoterol (Symbicort) was changed to Wixela in Jan 2023. Plan to try Trelegy. -Since she seldom sees her [facility] technical services manager, and she is well-known to [facility] technical services manager / critical medicine teams, we discussed about transferring care to [facility] pulmonology. Patient agreed with the plan initially, but decided to stay with [facility] technical services manager. Assessment & Plan (11/29/2023 11:51 AM EDT): - Printing Sales Representative: Ashly, last seen on 11/18/23 - Severe [...] supplemental oxygen 4L-6L; recommended to discuss with technical services manager regarding to oxygen concentrator. - Strongly encouraged to get COVID vaccine - Keep appt with technical services manager -Treatment Hx: Budesonide - Formoterol (Symbicort) was changed to Wixela in Jan 2023. Plan to try Trelegy. Assessment & Plan (10/11/2023 11:41 AM EDT): - Printing Sales Representative: Ashly, last seen on 05/31/23 - Severe [...] supplemental oxygen 4L-6L; recommended to discuss with technical services manager regarding to oxygen concentrator. - Strongly encouraged to get COVID vaccine - Keep appt with technical services manager -Treatment Hx: Budesonide - Formoterol (Symbicort) was changed to Wixela in Jan 2023. Plan to try Trelegy. Assessment & Plan (10/04/2023 5:20 PM EDT): - Printing Sales Representative: Ashly, last seen on 05/31/23 - Severe [...] supplemental oxygen 4L-6L; recommended to discuss with technical services manager regarding to oxygen concentrator. - Strongly encouraged to get COVID vaccine - Keep appt with technical services manager -Treatment Hx: Budesonide - Formoterol (Symbicort) was changed to Wixela in Jan 2023. Plan to try Trelegy. Assessment & Plan (08/23/2023 3:08 PM EDT): - Printing Sales Representative: Ashly, last seen on 05/31/23 - Severe [...] supplemental oxygen 4L-6L; recommended to discuss with technical services manager regarding to oxygen concentrator. - Strongly encouraged to get COVID vaccine - Keep appt with technical services manager -Treatment Hx: Budesonide - Formoterol (Symbicort) was changed to Wixela in Jan 2023. Plan to try Trelegy. Assessment & Plan (05/31/2023 4:31 PM EST): - Printing Sales Representative: Ashly, last seen on 01/28/23 - Severe exacerbation 4-5 per year - Most recent exacerbation in March 2023, required hospitalization. Treated with IV steroid and BiPAP. Possible aspiration pneumonia and received azithromycin and ceftriaxone. Discharged with prednisone and levofloxacin. . - Exacerbation in Nov/Dec 2022. Outpatient management. Rx prednisone taper and azithromycin in Nov 2022, and prednisone and levofloxacin 2 weeks later. CXR negative in Nov 2022. - Continue Fluticasone-Salmeterol (Wixela) 500-50mcg 1 puff inhaled twice daily - Continue albuterol HFA prn. - Continue DuoNeb for neb prn Tx. - Continue workin on smoking cessation. - Continue supplemental oxygen 4L-6L; recommended to discuss with technical services manager regarding to oxygen concentrator. - Strongly encouraged to get COVID vaccine - Keep appt with technical services manager -Treatment Hx: Budesonide - Formoterol (Symbicort) was changed to Wixela in Jan 2023. Plan to try Trelegy. Assessment & Plan (05/08/2023 6:17 AM EST): - Printing Sales Representative: Ashly, last seen on 01/28/23 - Severe [...] get COVID vaccine - Keep appt with technical services manager -Treatment Hx: Budesonide - Formoterol (Symbicort) was changed to Wixela in Jan 2023. Plan to try Trelegy. Assessment & Plan (03/01/2023 6:49 AM EST): - Printing Sales Representative: Ashly, last seen on 01/28/23 - Severe [...] Dx COPD exacerbation, CAP, Tx azithromycin - [facility] hospitalization 01/11/19-01/17/19, b/l lower lobe pneumonia, L [...] get COVID vaccine - Keep appt with technical services manager -Treatment Hx: Budesonide - Formoterol (Symbicort) was changed to Wixela in Jan 2023. Plan to try Trelegy. Assessment & Plan (12/24/2022 3:40 PM EDT): - Printing Sales Representative: Ashly, last seen on 04/15/22 - Severe exacerbation 1-2 per year, none in [id number] - Most recent exacerbation today 12/22/22, Rx prednisone taper and azithromycin - Last hospitalization for COPD exacerbation in Feb 2020, Rx ceftriaxone, steroid, discharged with prednisone burst. - Hospitalization in Mar 2019. Dx COPD exacerbation. Rx prednisone and doxycycline - Exacerbation in Jan 2019, hospitalized 02/05/19- 02/07/19, Dx COPD exacerbation, CAP, Tx azithromycin - [facility] hospitalization 01/11/19-01/17/19, b/l lower lobe pneumonia, L > R, treated with IV steroid, levofloxacin, and bronchodilators Tx. Discharged with prednisone, benzonatate, levofloxacin. - Continue Symbicort and Incruse as maintenance. Plan to switch to Trelegy per technical services manager - Continue albuterol HFA prn. - Continue DuoNeb for neb prn Tx. - Continue workin on smoking cessation. - Continue supplemental oxygen 4L - Keep appt with technical services manager - Strongly encouraged to get COVID vaccine Assessment & Plan (12/05/2022 5:51 AM EDT): - Printing Sales Representative: Ashly, last seen on 04/15/22 - Severe exacerbation 1-2 per year, none in [id number] - Most recent exacerbation in Feb 2020, required hospitalization at [facility], Rx ceftriaxone, steroid, discharged with prednisone burst. - Hospitalization in Mar 2019. Dx COPD exacerbation. Rx prednisone and doxycycline - Exacerbation in Jan 2019, hospitalized 02/05/19- 02/07/19, Dx COPD exacerbation, CAP, Tx azithromycin - [facility] hospitalization 01/11/19-01/17/19, b/l lower lobe pneumonia, L > R, treated with IV steroid, levofloxacin, and bronchodilators Tx. Discharged with prednisone, benzonatate, levofloxacin. - Continue Symbicort and Incruse as maintenance. Plan to switch to Trelegy per technical services manager - Continue albuterol HFA prn. - Continue DuoNeb for neb prn Tx. - Continue workin on smoking cessation. 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 - Hospitalization in Mar 2019. Dx COPD exacerbation. Rx prednisone and doxycycline - Exacerbation in Jan 2019, hospitalized 02/05/19- 02/07/19, Dx COPD exacerbation, CAP, Tx azithromycin - [facility] hospitalization 01/11/19-01/17/19, b/l lower lobe pneumonia, L > R, treated with IV steroid, levofloxacin, and bronchodilators Tx. Discharged with prednisone, benzonatate, levofloxacin. - Continue Symbicort and Incruse as maintenance. Plan to switch to Trelegy per technical services manager - Continue albuterol HFA prn. - Continue DuoNeb for neb prn Tx. - Continue workin on smoking cessation. - Continue supplemental oxygen 4L - Keep appt with technical services manager - Strongly encouraged to get COVID vaccine Assessment & Plan (04/12/2022 7:28 PM EST): - Printing Sales Representative: Ashly - Severe exacerbation 1-2 per year, none in [id number] - Most recent exacerbation in Feb 2020, required hospitalization at [facility], Rx ceftriaxone, steroid, discharged with prednisone burst. - Hospitalization in Mar 2019. Dx COPD exacerbation. Rx prednisone and doxycycline - Exacerbation in Jan 2019, hospitalized 02/05/19- 02/07/19, Dx COPD exacerbation, CAP, Tx azithromycin - [facility] hospitalization 01/11/19-01/17/19, b/l lower lobe pneumonia, L > R, treated with IV steroid, levofloxacin, and bronchodilators Tx. Discharged with prednisone, benzonatate, levofloxacin. - Continue Breo and Spiriva as maintenance. Plan to switch to Trelegy per technical services manager - Continue albuterol HFA prn. - Continue DuoNeb for neb prn Tx. - Continue workin on smoking cessation. - Continue supplemental oxygen 4L - Keep appt with technical services manager in October. - Strongly encouraged to get COVID vaccine Diabetes mellitus, type 2 04/12/2022 Assessment & Plan (12/29/2024 11:47 PM EDT): - A1C 6.3% on 12/25/34, improved from 6.5% 09/04/24 - in a setting of frequent steroid use for COPD exacerbation - continue working on lifestyle modifications - continue SMBG - continue metformin ER 500 mg twice daily - last eye exam: referred to [facility] eye care - last comprehensive foot exam: 10/04/23, left 2nd toe fracture after a fall - last lipid profile: 06/12/24, TC 282; TG 269; HDL 47; LDL 182 - last microalbumin test: 11/08/23, UACR: TNP Assessment & Plan (09/04/2024 5:10 PM EDT): - A1C 6.5% 09/04/24, 7.0% on 03/26/24 - in a setting of frequent steroid use for COPD exacerbation - continue working on lifestyle modifications - continue SMBG - continue metformin ER 500 mg twice daily - last eye exam: referred to [facility] eye care - last comprehensive foot [...] daily - last eye exam: referred to [facility] eye care - last comprehensive foot [...] daily - last eye exam: referred to [facility] eye care - last comprehensive foot [...] daily - last eye exam: referred to [facility] eye care - last comprehensive foot [...] daily - last eye exam: referred to [facility] eye care - last comprehensive foot [...] daily - last eye exam: referred to [facility] eye care - last comprehensive foot [...] daily - last eye exam: referred to [facility] eye care - last comprehensive foot [...] daily - last eye exam: referred to [facility] eye care - last comprehensive foot [...] daily - last eye exam: referred to [facility] eye care - last comprehensive foot [...] 500 mg once daily - refer to [facility] eye care - foot exam at [...] on recovery Dyslipidemia 05/24/2016 Assessment & Plan (12/29/2024 11:46 PM EDT): - last lipid profile: 06/12/24 TC 282; TG 269; HDL 47; LDL 182 - Current medication: rosuvastatin 20 mg qhs and omega-3 1g bid - Work on lifestyle modificatioins - Moderate intensity statin therapy is recommended - Monitor LFT; consider decreasing rosuvastatin to 10 mg at bedtime if transaminates worsens. Assessment & Plan (09/06/2024 9:36 PM EDT): [...] on supplemental oxygen 01/07/2015 Assessment & Plan (12/29/2024 11:51 PM EDT): -Continuous supplemental oxygen 4-6 L/m -Supplier: [employer] -Check if she can get a portable oxygen concentrator because her current portable oxygen does not last very long and it is heavy -Avoid smoking around oxygen Assessment & Plan (06/16/2024 5:54 AM EDT): [...] AM EST): -Continuous supplemental oxygen 4L/m -Supplier: [employer] Assessment & Plan (03/01/2023 6:44 AM EST): -Supplier: [employer] -Pt had [id number] visit with Dr. Hart, technical services manager, on 01/28/23. He recommended supplemental oxygen 4LNC [...] [employer] -Contacted [employer] for oxygen delivery RAN Assessment & Plan (05/08/2022 5:44 PM EST): -Continuous supplemental oxygen 4L/m Erythrocytosis 01/07/2015 Assessment & Plan (05/08/2023 6:35 AM EST): - 09/24/21 Hemoglobin 19.0; Hematocrit 59.1 - likely due to hypoxia / COPD - previously referred to portfolio management marketing, but pt missed appt Assessment & Plan (12/05/2022 5:49 AM EDT): - 09/24/21 Hemoglobin 19.0; Hematocrit 59.1 - likely due to hypoxia / COPD - previously referred to portfolio management marketing, but pt missed appt Assessment & Plan (05/08/2022 5:50 PM EST): - 09/24/21 Hemoglobin 19.0; Hematocrit 59.1 - likely due to hypoxia / COPD - previously referred to portfolio management marketing, but pt missed appt Assessment & Plan (04/12/2022 7:51 PM EST): - 09/24/21 Hemoglobin 19.0; Hematocrit 59.1 - likely due to hypoxia / COPD - previously referred to portfolio management marketing, but pt missed appt 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 Hepatitis C antibody test positive 01/07/2015 Chronic liver disease 09/03/2014 Assessment & Plan (06/16/2024 6:02 AM EDT): -Likely due to Hx alcohol use disorder -Followed by [facility], last visit on 12/21/23 -Hepatitis profile: [...] to Hx alcohol use disorder -Followed by [facility], last visit on 12/21/23 -Hepatitis profile: [...] to Hx alcohol use disorder -Followed by [facility], last visit on 12/21/23 -Hepatitis profile: [...] to Hx alcohol use disorder -Followed by [facility], last visit on 12/21/23 -Hepatitis profile: [...] to Hx alcohol use disorder -Followed by [facility], last visit on 06/22/23 -Hepatitis profile: [...] to Hx alcohol use disorder -Followed by [facility], last visit on 06/22/23 -Hepatitis profile: [...] to Hx alcohol use disorder -Followed by [facility], last visit on 06/22/23 -Hepatitis profile: [...] to Hx alcohol use disorder -Followed by [facility], last visit on 06/22/23 -Hepatitis profile: [...] to Hx alcohol use disorder -Followed by [facility], last visit on 09/24/21 -Hepatitis profile: [...] to Hx alcohol use disorder -Followed by [facility], last visit on 09/24/21 -Hepatitis profile: [...] to Hx alcohol use disorder -Followed by [facility], last visit on 09/24/21 -Hepatitis profile: [...] to continue staying abstinent -consider changing to [facility] since pt has a difficulty [...] to Hx alcohol use disorder -Followed by [facility], last visit on 09/24/21 -Hepatitis profile: [...] to continue staying abstinent -consider changing to [facility] since pt has a difficulty getting appt with current GI Assessment & Plan (05/08/2022 5:48 PM EST): -Likely due to Hx alcohol use disorder -Followed by [facility], last visit on 09/24/21 -Hepatitis profile: [...] to Hx alcohol use disorder -Followed by [facility], last visit on 09/24/21 -Hepatitis profile: [...] staying abstinent Hypertension 02/26/2014 Assessment & Plan (12/31/2024 9:20 AM EDT): -Goal BP < 130/80 per ACC/AHA guideline (Treatment threshold [...] if any problem arises Assessment & Plan (09/04/2024 5:07 PM EDT): [...] mg, but if not approved will prescribe [id number] mg daily -Follow up in 3-6 mo, sooner if any problem arises Assessment & Plan (03/01/2023 6:52 AM EST): -Goal BP < 140/90 per JNC-8 and < 130/80 per ACC/AHA guideline (Treatment threshold >= 140/90 ) -Continue working on lifestyle modifications -Continue Amlodipine 10 mg daily -Recently seen by technical services manager, Dr. Hart, and was recommended to switch [...] Previous Dx: Depression; PTSD; alcohol-induced mood disorder [facility] provider: Mumtaz, psychiatrist Dr. Cruz Current medications: sertraline 125 mg daily, perphenazine 4 mg daily Previously tried medications: risperidone; hydroxyzine; prazosin pt is depression has worsened with current living condition pt was able to contract her safety today Assessment & Plan (04/02/2024 6:22 AM EST): Previous Dx: Depression; PTSD; alcohol-induced mood disorder [facility] provider: HUI Current medications: sertraline, prazosin 2mg, hydroxyzine, and risperidone. pt is depression has worsened with current living condition pt was able to contract her safety today Assessment & Plan (10/04/2023 9:59 AM EDT): Previous Dx: Depression; PTSD; alcohol-induced mood disorder [facility] provider: Mumtaz Current medications: sertraline, prazosin 2mg, hydroxyzine, and risperidone. pt is depression has worsened with current living condition pt was able to contract her safety today Assessment & Plan (08/18/2023 5:43 AM EDT): Previous Dx: Depression; PTSD; alcohol-induced mood disorder [facility] provider: Mumtaz Current medications: sertraline, prazosin 2mg, hydroxyzine, and risperidone. pt is depression has worsened with current living condition pt was able to contract her safety today Assessment & Plan (05/08/2022 5:53 PM EST): Previous Dx: Depression; PTSD; alcohol-induced mood disorder [facility] provider: Mumtaz Current medications: sertraline, prazosin 2mg, hydroxyzine, and risperidone. pt is depression has worsened with current living condition pt was able to contract her safety today Assessment & Plan (04/12/2022 7:43 PM EST): Previous Dx: Depression; PTSD; alcohol-induced mood disorder [facility] provider: Mumtaz Current medications: sertraline, prazosin 2mg, hydroxyzine, and risperidone. pt is depression has worsened with current living condition pt was able to contract her safety today Opioid dependence on agonist therapy ([facility]) 0 03/29/2012 Assessment & Plan (06/16/2024 6:05 AM [...] mg Tobacco dependence 03/29/2012 Assessment & Plan (12/29/2024 11:51 PM EDT): - restarted smoking in August 2023 - previously tried varenicline and nicotine replacement - not candidate for lung cancer screening CT due to severe COPD - continue working on smoking cessation - prescribed varenicline in Nov 2023 - referred to [facility] Assessment & Plan (06/12/2024 9:01 AM EDT): [...] nicotine replacement Hypothyroidism 10/20/2011 Assessment & Plan (12/29/2024 11:49 PM EDT): - Ecg Technician: [facility], last visit on 06/15/20 - Current replacement: levothyroxine 225 mcg daily - Most recent thyroid function test: 0.22 06/12/24 therapeutic range, slightly low - Recheck today Assessment & Plan (09/04/2024 5:12 PM EDT): - Ecg Technician: [facility], last visit on 06/15/20 - Current replacement: levothyroxine 225 mcg daily - Most recent thyroid function test: 0.22 06/12/24 therapeutic range, slightly low - Recheck today Assessment & Plan (06/16/2024 6:02 AM EDT): - Ecg Technician: [facility], last visit on 06/15/20 - Current replacement: levothyroxine 225 mcg daily - Most recent thyroid function test: 11/08/23 therapeutic range - Recheck today Assessment & Plan (04/26/2024 10:32 AM EST): - Ecg Technician: [facility], last visit on 06/15/20 - Current replacement: levothyroxine 225 mcg daily - Most recent thyroid function test: 11/08/23 therapeutic range Assessment & Plan (03/26/2024 5:03 PM EST): - Ecg Technician: [facility], last visit on 06/15/20 - Current replacement: levothyroxine 225 mcg daily - Most recent thyroid function test: 08/03/23 therapeutic range - Requested to repeat lab today. - Encouraged to improve adherence. Assessment & Plan (02/02/2024 2:28 PM EST): - Ecg Technician: [facility], last visit on 06/15/20 - Current replacement: levothyroxine 225 mcg daily - Most recent thyroid function test: 08/03/23 therapeutic range - Requested to repeat lab today. - Encouraged to improve adherence. Assessment & Plan (11/29/2023 11:32 AM EDT): - Ecg Technician: [facility], last visit on 06/15/20 - Current replacement: levothyroxine 225 mcg daily - Most recent thyroid function test: 08/03/23 therapeutic range - Requested to repeat lab today. - Encouraged to improve adherence. Assessment & Plan (10/11/2023 11:43 AM EDT): - Ecg Technician: [facility], last visit on 06/15/20 - Current replacement: levothyroxine 225 mcg daily - Most recent thyroid function test: 08/03/23 therapeutic range - Requested to repeat lab today. - Encouraged to improve adherence. Assessment & Plan (10/02/2023 4:45 PM EDT): - Ecg Technician: [facility], last visit on 06/15/20 - Current replacement: levothyroxine 225 mcg daily - Most recent thyroid function test: 08/03/23 therapeutic range - Requested to repeat lab today. - Encouraged to improve adherence. Assessment & Plan (12/05/2022 5:49 AM EDT): - Ecg Technician: [facility], last visit on 06/15/20 - Current replacement: levothyroxine 200 mcg daily - Most recent thyroid function test: 09/24/21 TSH 23.42 - 08/13/20 TSH 26.67, Free T4 0.9 - 10/22/19 TSH 48.28; Free T4 0.44 - Requested to repeat lab today. - Encouraged to improve adherence. - Advised to keep appt with Ecg Technician Assessment & Plan (04/12/2022 7:31 PM EST): - Ecg Technician: [facility], last visit on 06/15/20 - Current replacement: levothyroxine 200 mcg daily - Most recent thyroid function test: 09/24/21 TSH 23.42 - 08/13/20 TSH 26.67, Free T4 0.9 - 10/22/19 TSH 48.28; Free T4 0.44 - Requested to repeat lab today. - Encouraged to improve adherence. - Advised to keep appt with Ecg Technician Resolved Problems Problem Noted Date Diagnosed Date Resolved Date COPD exacerbation ([facility]) 08/28/2024 09/10/2024 Assessment & Plan (08/28/2024 3:21 PM EDT): I will prescribe 5 days of Z pack and prednisone 60mg daily I will prescribe tessalon pearls for cough and acetaminophen for general discomfort CXR ordered to r/o underline pneumonia ED precautions reviewed COPD with acute exacerbation ([facility]) 03/08/2024 03/25/2024 Assessment & Plan (03/08/2024 3:47 [...] Tx for GERD and COPD Aspiration pneumonitis ([facility]) 04/28/2023 08/23/2023 Assessment & Plan (04/28/2023 1:22 PM EST): -Ordered CXR -Will re-evaluate in 4 weeks. 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 04/12/19 23 08/23/2023 Assessment & Plan (05/31/2023 4:34 PM EST): - Ecg Technician: [facility], last visit on 06/15/20 - Current replacement: levothyroxine 225 mcg daily (recently increased from 212.5 mcg because patient had TSH 5.92 and free T4 0.6) - Most recent thyroid function test: Most recent TSH in Mar 2023 was 5.92 (patient was having acute illness) - Recheck thyroid function Assessment & Plan (05/08/2023 6:34 AM EST): - Ecg Technician: [facility], last visit on 06/15/20 - Current replacement: levothyroxine 225 mcg daily (recently increased from 212.5 mcg because patient had TSH 5.92 and free T4 0.6) - Most recent thyroid function test: Most recent TSH in Mar 2023 was 5.92 (patient was having acute illness) - Recheck thyroid function Assessment & Plan (12/24/2022 3:43 PM EDT): - Ecg Technician: [facility], last visit on 06/15/20 - Current replacement: levothyroxine 200 mcg daily - Most recent thyroid function test: 12/14/22 TSH 32.45, Free T4 0.57 - Encouraged to improve adherence. Assessment & Plan (12/05/2022 5:53 AM EDT): - Ecg Technician: [facility], last visit on 06/15/20 - Current replacement: levothyroxine 200 mcg daily - Most recent thyroid function test: 09/24/21 TSH 23.42 - 08/13/20 TSH 26.67, Free T4 0.9 - 10/22/19 TSH 48.28; Free T4 0.44 - Requested to repeat lab today. - Encouraged to improve adherence. - Advised to keep appt with Ecg Technician Assessment & Plan (05/08/2022 5:49 PM EST): - Ecg Technician: [facility], last visit on 06/15/20 - Current replacement: levothyroxine 200 mcg daily - Most recent thyroid function test: 09/24/21 TSH 23.42 - 08/13/20 TSH 26.67, Free T4 0.9 - 10/22/19 TSH 48.28; Free T4 0.44 - Requested to repeat lab today. - Encouraged to improve adherence. - Advised to keep appt with Ecg Technician Assessment & Plan (04/12/2022 7:32 PM EST): - Ecg Technician: [facility], last visit on 06/15/20 - Current replacement: levothyroxine 200 mcg daily - Most recent thyroid function test: 09/24/21 TSH 23.42 - 08/13/20 TSH 26.67, Free T4 0.9 - 10/22/19 TSH 48.28; Free T4 0.44 - Requested to repeat lab today. - Encouraged to improve adherence. 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 - Last hospitalization Feb 2020. [facility]. Rx ceftriaxone, steroid, discharged with prednisone burst. - Hospitalization in Mar 2019. Dx COPD exacerbation. Rx prednisone and doxycycline - Exacerbation in Jan 2019, hospitalized 02/05/19- 02/07/19, Dx COPD exacerbation, CAP, Tx azithromycin - [facility] hospitalization 01/11/19-01/17/19, b/l lower lobe pneumonia, L > R, treated with IV steroid, levofloxacin, and bronchodilators Tx. Discharged with prednisone, benzonatate, levofloxacin. - Continue Symbicort and Incruse as maintenance. Plan to switch to Trelegy per technical services manager - Continue albuterol HFA prn. - Continue DuoNeb for neb prn Tx. - Continue workin on smoking cessation. - Continue supplemental oxygen 4L - Keep appt with technical services manager - Strongly encouraged to get COVID vaccine Assessment & Plan (12/05/2022 5:51 AM EDT): - Printing Sales Representative: Ashly, last seen on 04/15/22 - Severe exacerbation 1-2 per year, none in [id number] - Most recent exacerbation in Feb 2020, required hospitalization at [facility], Rx ceftriaxone, steroid, discharged with prednisone burst. - Hospitalization in Mar 2019. Dx COPD exacerbation. Rx prednisone and doxycycline - Exacerbation in Jan 2019, hospitalized 02/05/19- 02/07/19, Dx COPD exacerbation, CAP, Tx azithromycin - [facility] hospitalization 01/11/19-01/17/19, b/l lower lobe pneumonia, L > R, treated with IV steroid, levofloxacin, and bronchodilators Tx. Discharged with prednisone, benzonatate, levofloxacin. - Continue Symbicort and Incruse as maintenance. Plan to switch to Trelegy per technical services manager - Continue albuterol HFA prn. - Continue DuoNeb for neb prn Tx. - Continue workin on smoking cessation. - Continue supplemental oxygen 4L - Keep appt with technical services manager - Strongly encouraged to get COVID vaccine Assessment & Plan (05/08/2022 5:47 PM EST): - Printing Sales Representative: Ashly, last seen on 04/15/22 - Severe exacerbation 1-2 per year, none in [id number] - Most recent exacerbation in Feb 2020, required hospitalization at [facility], Rx ceftriaxone, steroid, discharged with prednisone burst. - Hospitalization in Mar 2019. Dx COPD exacerbation. Rx prednisone and doxycycline - Exacerbation in Jan 2019, hospitalized 02/05/19- 02/07/19, Dx COPD exacerbation, CAP, Tx azithromycin - [facility] hospitalization 01/11/19-01/17/19, b/l lower lobe pneumonia, L > R, treated with IV steroid, levofloxacin, and bronchodilators Tx. Discharged with prednisone, benzonatate, levofloxacin. - Continue Symbicort and Incruse as maintenance. Plan to switch to Trelegy per technical services manager - Continue albuterol HFA prn. - Continue DuoNeb for neb prn Tx. - Continue workin on smoking cessation. - Continue supplemental oxygen 4L - Keep appt with technical services manager - Strongly encouraged to get COVID vaccine Encounters Date Type Department Care Team Description 01/21/2025 Telephone [facility] [address] [place] [phone] Cathleen Mo MD Care Coordination (Home Health Utilization) 01/21/2025 Patient Outreach [facility] [address] [place] [phone] Cathleen Mo MD Care Coordination ([facility] Josey Joy chart review) 01/21/2025 Patient Outreach [address] [phone] Cathleen Mo MD Care Management ([facility] -CHART REVIEW/) 01/21/2025 Patient Outreach [address] [phone] Cathleen Mo MD 01/21/2025 Telephone [facility] [address] [place] [phone] Cathleen Mo MD Nurse Triage 01/21/[address] [phone] Cathleen Mo MD Care Coordination (Home Care Utilization ) 01/17/2025 Refill [facility] [address] [place] [address] Cathleen Mo MD 01/16/[address] [address] Cathleen Mo MD 01/16/2025 Refill [facility] [address] [place] [phone] Cathleen Mo MD 12/25/2024 11:30 AM EDT Office Visit [address] [address] Cathleen Mo MD Primary hypertension (Primary Dx); Dyslipidemia; Type 2 diabetes mellitus without complication, without long-term current use of insulin (CMS/HCC); Zayra's thyroiditis; 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; Cirrhosis of liver without ascites, unspecified hepatic cirrhosis type (CMS/HCC); Chronic respiratory failure with hypoxia and hypercapnia (CMS/HCC); Chronic obstructive pulmonary disease, unspecified COPD type (CMS/HCC); Dependence on supplemental oxygen; Tobacco dependence; Bilateral hand pain 12/25/2024 Travel 12/24/2024 Telephone [facility] [address] [place] [address] Cathleen Mo MD chart prep 12/17/2024 Patient Outreach [facility] [address] [place] [address] Cathleen Mo MD Pre-visit Planning (SDOH screening was completed on 09/04/2024) 11/29/2024 Refill [facility] [address] [place] [address] Cathleen Mo MD 11/22/2024 Refill [facility] [address] [place] [address] Laura Shirley DO 11/22/2024 Refill [facility] [address] [place] [address] Tegan Johnson MD Other specified hypothyroidism 11/09/2024 Refill [facility] [address] [place] [address] Cathleen Mo MD 11/06/2024 Telephone [facility] [address] [place] [address] Jaun Sosa CNP Chart Prep 10/31/2024 3:45 PM EDT Office Visit [facility] [address] [place] [address] Jaun Sosa CNP Soft tissue infection (Primary Dx); [employer] 10/31/2024 Travel 10/30/2024 Refill [facility] [address] [place] [address] Cathleen Mo MD 10/30/2024 Telephone [facility] [address] [place] [address] Cathleen Mo MD Nurse Triage 10/25/2024 Refill [facility] [address] [place] [address] Tegan Johnson MD 10/22/2024 Refill [facility] [address] [place] [address] Laura Shirley DO from Last 3 Months Immunizations Immunization Administration Dates Next Due Hep A / Hep B 10/13/2009,04/08/2009 Hep B, adult 07/14/2010 Influenza injectable quadriv alent preservative free 04/28/2023,04/29/2022,01/12/2019,03/13 Influenza, IIV3, injectable 12/09/2009 Influenza, Split (incl. chaparro fied surface antigen) 04/21/2012 Influenza, seasonal, injecta ble, preservative free 02/02/2024 Pfizer Covid-19 Vaccine 12+ 03/26/2024, 4 Pneumococcal Conjugate PCV 20 04/28/2023 Pneumococcal Polysaccharide PPSV23 01/12/2019,01 / TD (adult), 2 Lf tetanus tox oid, preservative free, adsorbed 04/29/2022,04/09/2009 Tdap 04/21/2012 Zoster, Recombinant 04/26/2024 Social History Tobacco Use Types Packs/Day Years Used Date Smoking Tobacco: Some Days Cigarettes 1.9 36.8 Started: 1988 Passive Smoke Exposure: Current Smokeless [...] Sign Reading Time Taken Comments Blood Pressure 124/70 12/25/2024 12:06 PM EDT Pulse 96 12/25/2024 12:06 PM EDT Temperature 36.1 C (96.9 F) 12/25/2024 12:06 PM EDT Respiratory Rate 17 12/25/2024 12:06 PM EDT Oxygen Saturation 94% 12/25/2024 12:06 PM EDT Inhaled Oxygen Concentration - - Weight 82.1 kg (181 lb) 12/25/2024 12:06 PM EDT Height 165.1 cm (5' 5 ) 10/31/2024 3:23 PM EDT Body Mass Index 30.12 10/31/2024 3:23 PM EDT Plan of Treatment Upcoming Encounters Date Type Department Care Team (Late st Contact Info) Description 02/26/2025 1:00 PM EST Office Visit [facility] [address] [place] [address] Silvia Cameron, OD [address] [place] [address] Health Maintenance Due Date Last Done Comments CT Colonography 1966 Colonoscopy 1966 Dental Prophylaxis 1966 Dental X-Ray: Bitewings 1966 FIT 1966 Sigmoidoscopy 1966 Eye Exam 1976 Dental Oral Exam 07/22/2016 01/21/2016 Dental X-Ray: Full Mouth 01/21/2019 01/21/2016 Zoster Vaccines (2 of 2) 06/21/2024 04/26/2024 Diabetes: Foot Exam 10/10/2024 10/11/2023, Diabetes: Urine Protein Screening 11/07/2024 11/08/2023 Influenza Vaccine (#1) 2024 4, 04/28/2023, 04/29/2022, Additional history exists Alcohol/Substance Use Screening 02/01/2025 02/02/2024 Depression Monitoring 03/06/2025 09/04/2024, 025 Diabetes: Hemoglobin A1C 03/26/2025 025, 09/04/2024, 06/12/2024, Additional history exists FOBT 03/26/2025 03/26/2024 Pap Smear 04/29/2025 04/29/2022, 02/07/2019 Lipid Panel 06/12/2025 06/12/2024, 10/26, 12/14/2022, Additional history exists Mammogram 07/12/2025 07/13/2023, 07/07/2022 SDOH Screening 09/04/2025 09/04/2024 Tobacco Screening 10/31/2025 10/31/2024 Disability Screening 12/25/2025 12/25/2024 Colorectal Cancer Screening 03/26/2027 FIT DNA/Cologuard 03/26/2027 [...] 04/21/2012 HIV Screening Completed 05/12/2023, 11/26, 10/22/2019 COVID-19 Vaccine Completed 03/26/2024, 03/2023, 06/13/2020 HIB [...] Comments POCT GLYCOSYLATED HEMOGLOBIN (HGB A1C) Routine 12/25/2024 12:09 PM EDT Type 2 diabetes mellitus without complication, without long-term current use of insulin ([facility]) POCT GLUCOSE Routine 12/25/2024 12:08 PM EDT Type 2 diabetes mellitus without complication, without long-term current use of insulin ([facility]) LIPID PANEL WITH REFLEX TO DIRECT LDL Routine 06/12/2024 2:10 PM EDT Dyslipidemia LAB COLOGUARD COLON CANCER SCREEN Routine 03/26/2024 11:10 AM EST Screening for colon cancer ALBUMIN, RANDOM URINE W/CREATININE Routine 11/08/2023 1:45 PM EDT Type 2 diabetes mellitus without complication, without long-term current use of insulin ([facility]) BI MAMMOGRAM SCREENING TOMOSYNTHESIS BILATERAL Routine 07/13/2023 [...] Relevant to Health Maintenance Results * (ABNORMAL) POCT glycosylated hemoglobin (Hgb A1c) (12/25/2024 12:09 PM EDT) Hemoglobin A1C 6.3(A) 4.0 - 5.7 % QC Media Lot # [id number] Lot# Expiration Date Blood Capillary blood specimen / Unknown 12/25/2024 12:09 PM EDT Cathleen Mo MD POINT OF CARE TEST ENTER/EDIT OR DERABLES Final Result * POCT glucose manually resulted (12/25/2024 12:08 PM EDT) Glucose Blood, POC 105 60 - 200 mg/dL QC Media Lot # [id number] Lot# Expiration Date Blood Capillary blood specimen / Unknown 12/25/2024 12:08 PM EDT Cathleen Mo MD POINT OF CARE TEST ENTER/EDIT OR DERABLES Final Result * (ABNORMAL) Lipid Panel with Reflex to Direct LDL (06/12/2024 2:10 PM EDT) Triglycerides 269(H) <150 mg/dL [facility] Comment:Desirable Triglyceri de: less than 150 mg/dLBorderline High Triglyceride 150-199 mg/dLHigh Triglyceride: 200-499 mg/dLVery High Triglyceride: greater than or equal to 5OO mg/dL Cholesterol 282(H) <200 mg/dL [facility] Comment:Desirable Cholestero l: less than 200 mg/dLBorderline High Cholesterol: 200-239 mg/dLHigh Cholesterol: greater than 239 mg/dL LDL Cholesterol Calculated 182(H) <100 mg/dL [facility] Comment:Desirable LDL: less than 100 mg/dLNear Optimal/Above Optimal LDL: 110- 129 mg/dLBorderline High LDL: 130-159 mg/dLHigh LDL: 160-189 mg/dLVery High LDL: greater than or equal to 190 mg/dL HDL Cholesterol 47 >40 mg/dL [facility] Comment:Desirable HDL: great er than 40 mg/dL Note: This HDL assay may give artificially low results in patients with liver disease. Blood 06/12/2024 2:10 PM EDT 06/12/2024 4:45 PM EDT us Cathleen Mo MD LAB BLOOD ORDERABLES Final Resul t [facility] [address] [place] [phone] * Cologuard?? colon cancer screening (03/26/2024 11:10 AM EST) Cologuard Result Negative Negative 03/30/19 5:10 PM EST [employer] (CLIA #:[id number]) Comment: NEGATIVE TEST RESULT. A negative Cologuard [...] Bailey et al, N Engl J Med 2014;370(14):0930-9475) The normal value (reference range) for this assay is negative. COLOGUARD RE-SCREENING RECOMMENDATION: Periodic colorectal cancer screening is an important part of preventive healthcare for asymptomatic individuals at average risk for colorectal cancer. Following a negative Cologuard result, the [place] [employer] Society and U.S. Multi-Society Task Force screening guidelines recommend a Cologuard re-screening interval of 3 years. References: [place] [employer] Guideline for Colorectal Cancer Screening: https://www.cancer.org/cancer/vhubj-svfzrj-udakit/lyutrurcu-jajxyiovo-tgusnde/ac s-rec ommendations.html.; Holland DK, Ivis CR, Stalin LarkinK, Colorectal Cancer Screening: Recommendations for Physicians and Patients from the U.S. Multi-Society Task Force on Colorectal Cancer Screening , Am J Gastroenterology 2017; 112:7446-9711. TEST DESCRIPTION: Composite algorithmic analysis of stool [...] Fiore. et al, N Engl J Med 2014;370(14):0378-2035.) Cologuard may produce a false negative or false positive result (no colorectal cancer or precancerous polyp present at colonoscopy follow up). A negative Cologuard test result does not guarantee the absence of CRC or advanced adenoma (pre-cancer). The current Cologuard screening interval is every 3 years. ([place] [employer] and U.S. Multi-Society Task Force). Cologuard performance data in a 10,000 patient pivotal study using colonoscopy as the reference method can be accessed at the following location: www.[employer].com/results. Additional description of the Cologuard test process, warnings and precautions can be found at www.cologViralyticsrd.com. Stool specimen (specimen) 03/26/2024 11:10 AM EST 03/27/2024 11:53 AM EST us Cathleen Mo MD LAB MOLECULAR DIAGNOSTICS ORDERA BLES Final Result [facility] (CLIA #:[id number]) [place] [address], * Albumin, Random Urine W/Creatinine (11/08/2023 1:45 PM EDT) Creatinine, Urine 67.59 mg/dL [facility] Microalbumin Urine <5.0 mg/L [facility] Microalbum Creatinine Ratio Ur TNP <30 ug/mg cr [facility] Comment:Unable to calculate albumin/creatinine ratio due to lowmicroalbumin or creatinine result. Urine 11/08/2023 1:45 PM EDT 11/08/2023 3:56 PM EDT Cathleen Mo MD LAB URINE ORDERABLES Final Resul t Performing Organization Address City/[facility] Co de Phone Number [facility] [address] [place] [phone] * BI Mammogram Screening Tomosynthesis Bilateral (07/13/2023 11:10 AM EDT) Anatomical Region Laterality Modality Breast Bilateral Mammography 07/13/2023 11:1 0 AM EDT Narrative 07/18/2023 3:46 PM EDT [facility] [address] [place] [address] Mammography Report Signed Patient: Sandra Rose MR# : [id number] : 1965 Acct:[id number] Age/Sex: 57 / F ADM Date: 07/13/23 Loc: [facility] Attending Dr: Cathleen Mo MD Ordering Physician: Cathleen Mo MD Results: 1Negative Date of Service: 07/13/23 Follow Up: 1 Year From Orig inal Mammogram Procedure(s): MM tomosynthesis screening BI Accession Number(s): [id number] cc: Cathleen Mo MD EXAMINATION: MM SCREENING [...] in OV> 07/18/23 1543 DD/ 1110 TD/TT: Washer Operator: Procedure Note Donotuseinterpreter, Image - 07/18/2023 [facility] [address] [place] [address] Mammography Report Signed Patient: Sandra Rose DMR# : [id number] : 1965Acct:[id number] Age/Sex: 57 / FADM Date: 07/13/23 Loc: [facility] Attending Dr: Cathleen Mo MD Ordering Physician: Cathleen Mo MDResults: 1Negative Date of Service: 07/13/23Follow Up: 1 Year From Orig ina Mammogram Procedure(s): MM tomosynthesis screening BI Accession Number(s): [id number] cc: Cathleen Mo MD EXAMINATION: MM SCREENING DIGITAL BREAST TOMOSYNTHESIS, BILATERAL CLINICAL INFORMATION: Screening. Asymptomatic. COMPARISON: Mammography: This study is compared with prior exams dating back to 2015. TECHNIQUE: Digital breast tomosynthesis is performed in [...] in OV> 07/18/23 1543 DD/ 1110 TD/TT: Washer Operator: us Cathleen Mo MD IMG BI PROCEDURES Final Result * HIV-1/2 Antigen and Antibodies, Fourth Generation, with Reflexes (05/12/2023 11:06 AM EST) HIV AB/AG Nonreactive Nonreactive [facility] Comment:HIV-1 p24 Ag and/or HIV-1/HIV-2 Ab not detected.A test result that is nonreactive does not exclude thepossibility of exposure to or infection with HIV-1 and/orHIV-2. Nonreactive results in this assay for individualswith prior exposure to HIV-1 and/or HIV-2 may be due toantigen and antibody levels that are below the limit ofdetection of this assay.The [employer] HIV Ag/Ab Combo assay result andsupplemental assay results should be interpreted inconjunction with the patient's clinical presentation,history and other laboratory results. If the results areinconsistent with clinical evidence, additional testing issuggested to confirm the result. Blood Venous blood specimen / Unknown 05/12/2023 11:06 AM EST 05/12/2023 1:03 PM EST us Cathleen Mo MD LAB BLOOD ORDERABLES Final Resul t [facility] [address] [place] [phone] [phone] * Thinprep TIS PAP And HPV mRNA E6/E7 With Reflex To HPV 16,18/45 (04/29/2022 11:38 AM EST) Clinical Information: ROUTINE PAP [employer] [place] [email or web address] LMP: NONE GIVEN [employer] [place] [facility] Prev. PAP: NONE GIVEN [employer] [place] [facility] Prev. BX: NONE GIVEN [facility] SOURCE: None given [employer] (PICA)t Statement Of Adequacy: [employer] Comment: Satisfactory for evaluation. Endocervical/transformation zone component present. Interpretation/ Result: Negative for intraepithelial lesion or malignancy. [employer] [place] [email or web address] COMMENT: This Pap test has been evaluated with computer assisted technology. [employer] [place] [email or web address] Cytotechnologis t: [employer] [place] [email or web address] Comment: SXA, CT(ASCP) CT screening location: [place] [address] Review Cytotechnologis t: [employer] [place] [facility] Comment: JNA, CT(ASCP) CT screening location: [place] [address] (Always Message) [employer] [place] [email or web address] Comment: EXPLANATORY NOTE: The Pap is a [...] HPV nRNA E6/E7 Not Detected Not Detected [employer] [place] [email or web address] Comment: Methodology: Mining Manager-Mediated Amplification This assay detects E6/E7 viral messenger RNA (mRNA) from 14 high-risk HPV types (16,18,31,33,35,39,45,51,52,56,58,59,66,68). Cervical sources are required for HPV testing. If a vaginal source from a patient who has had a total hysterectomy with removal of cervix was submitted, please contact the testing laboratory for alternative testing options. For additional information, please refer to http://education.Baccarat.Oppten/faq/IVA850s9 (This link if provided for information/ educational purposes only.) 04/29/2022 11:3 8 AM EST 04/30/2022 9:58 AM EST Narrative [facility] - 05/05/2022 2:36 PM EST FASTING: UNKNOWN us Cathleen Mo MD LAB PATHOLOGY ORDERABLES Final R esult [facility] [address] [facility], [place] [address] [employer] [facility] [address] [facility], ([address]) [place] [address] from Last 3 Months or Most Recently Relevant to Health Maintenance Insurance [facility] C3 DENTAL-[facility] MEDICAID STAND ADULT Care Teams [employer] Special Education Teacher Relationship Specialty Start Date End Date Cathleen Mo MD [address] [place] [address] PCP - General Family Medicine 03/28/18 Tad Baez, PharmD [address] [place] [address] Pharmacist Internal Medicine 03/16/24 Sylwia Camarena, BRIANNA [address] [place] [address] Registered Nurse Family Medicine 01/21/25 Josey Joy 01/21/25 [facility] 05/04/17
--- OUTSIDE RECORDS SUMMARY | 2025-01-22 12:35 | XMS_ITS | Encounter Summary ---
Author Organization [employer] Address [address] [facility] 7t [place] [address] Care Team Providers Care Proposal Editor Name Role Phone Cathleen Sears MD Primary Care Provider Tad Baez PharmD Unavailable Bhumi Monroe RN Unavailable [phone] Sylwia Camarena RN Unavailable [phone] Josey Joy Unavailable Reason for Visit * Reason Onset Date Comments Pt1 04/10/2024 Encounter Details Date Type Department Care Team (Late st Contact Info) Description 04/10/2024 Telephone [facility] [address] [place], [place] [phone] Cathleen Sears MD [address] [place], [place] [phone] Pt1 Social History Tobacco Use Types Packs/Day [...] Y/N: Yes Provider name or facility name: [address] [place] [address] [address], [place] [address] [facility] Escort needed: Y/N: No Do you have a wheelchair: Y/N: No If yes- Manual or electric: Visits: (3 x Month) Pt has Apt this Tuesday documented in this encounter Plan of Treatment Upcoming Encounters Date Type Department Care Team (Late st Contact Info) Description 02/26/2025 1:00 PM EST Office Visit [facility] [address] [place], [place] [phone] Silvia Cameron, OD [address] [place] [address] documented as of this encounter Visit Diagnoses Not on filedocumented in this encounter Additional Health Concerns Assessment Noted Time PHQ-9 Depression Total Score: 2 07/22/19 24 10:34 AM EDT documented as of this encounter Care Teams Proposal Editor Relationship Specialty Start Date End Date Cathleen Sears MD [address] [place] [address] PCP - General Family Medicine 03/28/18 Tad Baez, LaurenD [address] [place] [address] Pharmacist Internal Medicine 03/16/24 Bhumi Monroe, BRIANNA [address] [place] [phone] Knockout Machine OperatorMental Health Program Manager 05/21/24 08/21/24 Sylwia Camarena, BRIANNA [address] [place] [address] Registered Nurse Family Medicine 01/21/25 Josey Joy 01/21/25 [facility] 05/04/17 documented as of this encounter
--- OUTSIDE RECORDS SUMMARY | 2025-01-22 12:35 | XMS_ITS | Encounter Summary ---
Author Organization [employer] Address [address] 7t [place] [address] Care Team Providers Care Waste Chopper Name Role Phone Cathleen Sears MD Primary Care Provider Tad Baez PharmD Unavailable [phone] Sylwia Camarena RN Unavailable [phone] Josey Joy Unavailable Encounter Details Date Type Department Care Team (Late st Contact Info) Description 10/18/2024 Orders Only [facility] [address] [place] [address] Cathleen Sears MD [address] [place], [place] [phone] Social History Tobacco Use Types Packs/Day Years [...] Description 02/26/2025 1:00 PM EST Office Visit [facility] [address] [place] [address] Silvia Cameron, OD [address] [place] [address] documented as of this encounter Visit Diagnoses Not on filedocumented in this encounter Additional Health Concerns Assessment Noted Time PHQ-9 Depression Total Score: 19 025 1:21 PM EDT documented as of this encounter Care Teams Waste Chopper Relationship Specialty Start Date End Date Cathleen Sears MD [address] [place] [address] PCP - General Family Medicine 03/28/18 Tad Baez, LaurenD [address] [place], [place] [phone] Pharmacist Internal Medicine 03/16/24 Sylwia Camarena, BRIANNA [address] [place], [place] [phone] Registered Nurse Family Medicine 01/21/25 Josey Joy 01/21/25 [facility] 05/04/17 documented as of this encounter
--- OUTSIDE RECORDS SUMMARY | 2025-01-22 12:35 | XMS_ITS | Encounter Summary ---
Author Organization [employer] Address [address] [facility] 7t [place] [address] Care Team Providers Care Research Leader Name Role Phone Cathleen Sears MD Primary Care Provider Tad Baez PharmD Unavailable Bhumi Monroe RN Unavailable [phone] Sylwia Camarena RN Unavailable [phone] Josey Joy Unavailable Reason for Referral * Imaging (Routine) - Closed Specialty Diagnoses / Procedures Referred By Sina nicolas Referred To Contact Radiology Diagnoses Zayra's thyroiditis Preauricular mass Parotid mass Procedures CT Soft Tissue Neck w/ Contrast Cathleen Sears MD [address] [place] [address] Phone: tel: fax: [address] Phone: tel: fax: Referral ID Status Reason Start Date Expiration Date Visits Re quested Visits Authorized [id number] Closed 02/07/2024 02/06/2025 1 1 Encounter Details Date Type Department Care Team (Late st Contact Info) Description 02/04/2024 Orders Only [facility] [address] [place], [place] [phone] Cathleen Sears MD [address] [place], [place] [phone] Zayra's thyroiditis (Primary Dx); Preauricular mass; Parotid [...] is your housing situation today? I have frahad shelby 01/10/[address] you [...] Description 02/26/2025 1:00 PM EST Office Visit [facility] [address] [place], [place] [phone] Silvia Cameron, OD [address] [place] [address] Scheduled Orders Name Type Priority Associated Diagnoses [...] documented as of this encounter Care Teams Research Leader Relationship Specialty Start Date End Date Cathleen Sears MD [address] [place] [address] PCP - General Family Medicine 03/28/18 Tad Baez, Sanjiv [address] [place] [address] Pharmacist Internal Medicine 03/16/24 Bhumi Monroe, BRIANNA [address] [place] [address] ImagerTyping Secretary 05/21/24 08/21/24 Sylwia Camarena, BRIANNA [address] [place] [address] Registered Nurse Family Medicine 01/21/25 Josey Joy 01/21/25 [facility] 05/04/17 documented as of this encounter
--- OUTSIDE RECORDS SUMMARY | 2025-01-22 12:36 | XMS_ITS | Encounter Summary ---
Author Organization [employer] Address [address] [facility] 7t [place] [address] Care Team Providers Care College Or University Faculty Member Name Role Phone Cathleen Sears MD Primary Care Provider [phone] Tad Baez PharmD Unavailable Sylwia Camarena RN Unavailable [phone] Josey Joy Unavailable Reason for Visit * Reason Comments Care Management C3 -CHART REVIEW Encounter Details Date Type Department Care Team (Late st Contact Info) Description 01/21/2025 Patient Outreach [facility] MEDICINE 230 [place], [place] [phone] Cathleen Sears MD [address] [place], [place] [phone] Care Management (C3 -CHART REVIEW/) Social History Tobacco Use Types Packs/Day Years [...] as of this encounter Progress Notes * Sylwia Camarena RN - 01/21/2025 1:21 PM EDT WILMAR Camarena RN, performed chart review, in anticipation of initial assessment with patient, as patient has stratified for C3 Adult Complex Care through provider referral. History significant for Patient Active Problem List Diagnosis Date Noted Carpal tunnel syndrome 09/04/2024 Dyspnea on exertion 08/28/2024 Chronic neck pain 06/16/2024 Chronic back pain 06/16/2024 Skin lesions 06/16/2024 Metabolic dysfunction-associated steatotic liver disease (MASLD) 10/12/2023 Left foot pain 10/11/2023 Popliteal cyst, right 10/02/2023 Abdominal bloating 09/27/2023 Centrilobular emphysema (HCC) 09/27/2023 Colon cancer screening 09/27/2023 Diarrhea 09/27/2023 Hepatitis C 09/27/2023 Chronic cough 09/27/2023 Sensorineural hearing loss (SNHL) of both ears 05/08/2023 Preauricular mass 05/08/2023 Parotid mass 05/08/2023 Cirrhosis (CMS/HCC) (HCC) 03/01/2023 Urinary incontinence 01/05/2023 Chronic respiratory failure with hypoxia and hypercapnia (HCC) 09/09/2022 Gastroesophageal reflux disease 09/09/2022 History of alcohol use disorder 09/09/2022 History of intravenous drug abuse 09/09/2022 Post-traumatic stress disorder 09/09/2022 COPD (chronic obstructive pulmonary disease) (HCC) 04/12/2022 Diabetes mellitus, type 2 (HCC) 04/12/2022 Alcohol use disorder 10/26/2016 Dyslipidemia 05/24/2016 Umbilical hernia without obstruction and without gangrene 07/07/2015 Dependence on supplemental oxygen 01/07/2015 Erythrocytosis 01/07/2015 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 Hepatitis C antibody test positive 01/07/2015 Chronic liver disease 09/03/2014 Hypertension 02/26/2014 Migraine 08/01/2012 Depression 03/29/2012 Opioid dependence on agonist therapy (CMS/HCC) (HCC) 03/29/2012 Tobacco dependence 03/29/2012 Hypothyroidism 10/20/2011 Constipation due to opioid therapy 04/28/2023 Perspiration excessive 04/28/2023 Specialists include [facility] Audiology , ENT surgeon [facility], [facility], [facility] Pulmonology, [facility] Cardiology, [facility] Orthopedics. No recent ED visits within the last 12 months. Last appointment in PCP office on 12/25/24. No upcoming appointments, on recall for 02/2025 with PCP. documented in this encounter Plan of Treatment Upcoming Encounters Date Type Department Care Team (Late st Contact Info) Description 02/26/2025 1:00 PM EST Office Visit [facility] OPT[facility] [address] [place], [place] [phone] Silvia Cameron, OD [address] [place], [place] [phone] documented as of this encounter Visit Diagnoses Not on filedocumented in this encounter Additional Health Concerns Assessment Noted Time PHQ-9 Depression Total Score: 19 025 1:21 PM EDT documented as of this encounter Care Teams College Or University Faculty Member Relationship Specialty Start Date End Date Cathleen Sears MD [address] [place], [place] [phone] PCP - General Family Medicine 03/28/18 Tad Baez, PharmD [address] [place] [address] [phone] Pharmacist Internal Medicine 03/16/24 Sylwia Camarena, BRIANNA [address] [place] [address] Registered Nurse Family Medicine 01/21/25 Josey Joy 01/21/25 [facility] 05/04/17 documented as of this encounter
--- OUTSIDE RECORDS SUMMARY | 2025-01-22 12:36 | XMS_ITS | Encounter Summary ---
Author Organization [employer] Address [address] [facility] 7t [place] [address] Care Team Providers Care Front End Engineer Name Role Phone Cathleen Sears MD Primary Care Provider [phone] Tad Baez PharmD Unavailable [phone] Bhumi Monroe RN Unavailable [phone] Sylwia Camarena RN Unavailable [phone] Josey Joy Unavailable Reason for Referral * Consultation (Routine) - Closed Specialty Diagnoses / Procedures Referred By Sina nicolas Referred To Contact Otolaryngology Diagnoses Parotid mass Sensorineural hearing loss (SNHL) of both ears Cathleen Sears MD [address] [place] [address] Phone: tel: fax: Referral ID Status Reason Start Date Expiration Date V isits Requested Visits Authorized [id number] Closed Specialty Services Required 06/20/2024 06/20/2025 1 1 Encounter Details Date Type Department Care Team (Late st Contact Info) Description 06/20/2024 Orders Only [facility] MEDICINE [address] [place] [address] [phone] Cathleen Sears MD [address] [place], [place] [phone] Parotid mass (Primary Dx); Sensorineural hearing loss [...] Description 02/26/2025 1:00 PM EST Office Visit [facility] [address] [place] [address] Silvia Cameron, OD [address] [place] [address] Scheduled Referrals Name Type Priority Associated Diagnoses [...] documented as of this encounter Care Teams Front End Engineer Relationship Specialty Start Date End Date Cathleen Sears MD [address] [place] [address] PCP - General Family Medicine 03/28/18 Tad Baez, LaurenD [address] [place] [address] Pharmacist Internal Medicine 03/16/24 Bhumi Monroe, BRIANNA [address] [place] [phone] Safety LeadInstructor Military Science 05/21/24 08/21/24 Sylwia Camarena, BRIANNA [address] [place] [address] Registered Nurse Family Medicine 01/21/25 Josey Joy 01/21/25 [facility] 05/04/17 documented as of this encounter
--- OUTSIDE RECORDS SUMMARY | 2025-01-22 12:36 | XMS_ITS | Encounter Summary ---
Author Organization [employer] Address [address] [facility] [address] 7t [place] [address] Care Team Providers Care Contact Printer Dry Film Name Role Phone Cathleen Sears MD Primary Care Provider [phone] Tad Baez PharmD Unavailable Reason for Visit * Reason Comments Med Refill Encounter Details Date Type Department Care Team (Late st Contact Info) Description 01/17/2025 Refill [facility] 230 [place], [place] [phone] Cathleen Sears MD 230 [place], [place] [phone] Social History Tobacco Use Types Packs/Day Years [...] Description 02/26/2025 1:00 PM EST Office Visit [facility] OPTOMETRY 267 [place], [place] [phone] Silvia Cameron, OD 267 [place] [address] documented as of this encounter Visit Diagnoses Not on filedocumented in this encounter Additional Health Concerns Assessment Noted Time PHQ-9 Depression Total Score: 19 025 1:21 PM EDT documented as of this encounter Care Teams Contact Printer Dry Film Relationship Specialty Start Date End Date Cathleen Sears MD 230 [place] [address] PCP - General Family Medicine 03/28/18 Tad Baez, PharmD [address] [place] [place] [address] Pharmacist Internal Medicine 03/16/24 [facility] 05/04/17 documented as of this encounter
--- OUTSIDE RECORDS SUMMARY | 2025-01-22 12:36 | XMS_ITS | Encounter Summary ---
Author Organization [employer] Address [address] [facility] 7t [place] [address] Care Team Providers Care Family Practice Physician Assistant Name Role Phone Cathleen Sears MD Primary Care Provider Tad Baez PharmD Unavailable [phone] Sylwia Camarena RN Unavailable [phone] Josey Joy Unavailable Reason for Visit * Reason Comments Care Coordination [facility] Encounter Details Date Type Department Care Team (Latest Contact Info) Description 01/21/2025 Patient Outreach [facility] MEDICINE 230 [place], [place] [phone] Cathleen Sears MD 230 [place] [address] Care Coordination (C3 CHETNA Joy chart review) Social History Tobacco Use Types Packs/Day Years [...] as of this encounter Progress Notes * Josey Joy - 01/21/2025 2:10 PM EDT WILMAR Camarena RN, performed chart review, in anticipation of initial assessment with patient, as patient has stratified for Adult Complex Care through provider referral. History [...] therapy 04/28/2023 Perspiration excessive 04/28/2023 Specialists include [facility] Audiology , ENT surgeon [facility], [facility], [facility] Pulmonology, [facility] Cardiology, [facility] Orthopedics. No recent ED visits within the last 12 months. Last appointment in PCP office on 12/25/24. No upcoming appointments, on recall for 02/2025 with PCP. MILVIA Joy reviewed chart review completed by WILMAR Hernandezoh documented in this encounter Plan of Treatment Upcoming Encounters Date Type Department Care Team (Late st Contact Info) Description 02/26/2025 1:00 PM EST Office Visit [facility] 267 [place], [place] [phone] Rakesh Silvia, OD [address] [place] [address] documented as of this encounter Visit Diagnoses Not on filedocumented in this encounter Additional Health Concerns Assessment Noted Time PHQ-9 Depression Total Score: 19 025 1:21 PM EDT documented as of this encounter Care Teams Family Practice Physician Assistant Relationship Specialty Start Date End Date Cathleen Sears MD [address] [place] [address] PCP - General Family Medicine 03/28/18 Tad Baez, Sanjiv [address] [place] [address] Pharmacist Internal Medicine 03/16/24 Sylwia Camarena, BRIANNA [address] [place] [address] Registered Nurse Family Medicine 01/21/25 Josey Joy 01/21/25 [facility] 05/04/17 documented as of this encounter
--- OUTSIDE RECORDS SUMMARY | 2025-01-22 12:36 | XMS_ITS | Encounter Summary ---
Author Organization [employer] Address [address] [facility] 7t [place] [address] Care Team Providers Care Title Coordinator Name Role Phone Cathleen Sears MD Primary Care Provider [phone] Tad Baez PharmD Unavailable [phone] Sylwia Camarena RN Unavailable [phone] Josey Joy Unavailable Reason for Visit * Reason Onset Date Comments Care Coordination 01/21/2025 Home Health Ut ilization Encounter Details Date Type Department Care Team (Late st Contact Info) Description 01/21/2025 Telephone [facility] MEDICINE 230 [place], [place] [phone] Cathleen Sears MD [address] [place], [place] [phone] Care Coordination (Home Health Utilization) Social History Tobacco Use Types Packs/Day Years [...] encounter Miscellaneous Notes * Telephone Encounter - Alida Aguirre LPN - 01/21/2025 3:48 PM EDT Call placed to [facility] ( [employer] agency). [facility] is unable to release specifics for home care use at this time. Patient or [employer] only may provide hours and use of care in the home as per recent care plan. Will attempt contact with [employer] as listed as Mabel Gipson at late time. documented in this encounter Plan of Treatment Upcoming Encounters Date Type Department Care Team (Late st Contact Info) Description 02/26/2025 1:00 PM EST Office Visit [facility] OPTOMETRY [address] [place], [place] [phone] Bearaleigh Silvia, OD [address] [place] [address] documented as of this encounter Visit Diagnoses Not on filedocumented in this encounter Additional Health Concerns Assessment Noted Time PHQ-9 Depression Total Score: 19 025 1:21 PM EDT documented as of this encounter Care Teams Title Coordinator Relationship Specialty Start Date End Date Cathleen Sears MD [address] [place], [place] [phone] PCP - General Family Medicine 03/28/18 Tad Baez, LaurenD [address] [place] [address] Pharmacist Internal Medicine 03/16/24 Sylwia Camarena, BRIANNA [address] [place] [address] Registered Nurse Family Medicine 01/21/25 Josey Joy 01/21/25 [facility] 05/04/17 documented as of this encounter
--- OUTSIDE RECORDS SUMMARY | 2025-01-22 12:36 | XMS_ITS | Encounter Summary ---
Author Organization [employer] Address [address] [facility] 7t [place] [address] Care Team Providers Care Shell Core And Molding Supervisor Name Role Phone Cathleen Sears MD Primary Care Provider Tad Baez PharmD Unavailable [phone] Sylwia Camarena RN Unavailable [phone] Josey Joy Unavailable Reason for Visit * Reason Onset Date Comments Care Coordination 01/21/2025 Home Care Util ization Encounter Details Date Type Department Care Team (Late st Contact Info) Description 01/21/2025 Telephone [facility] MEDICINE 230 [place], [place] [phone] Cathleen Sears MD 230 [place], [place] [phone] Care Coordination (Home Care Utilization ) Social History Tobacco Use Types Packs/Day Years [...] Notes * Sylwia Camarena RN - 01/21/2025 11:30 AM EDT Call from patient transferred to Home Care Utilization [employer] from [facility], this ad copy writer completed call as patient only speaks kinyarwanda. Spoke with patient MANAGER ENVIRONMENTAL Mabel Gipson. States patient was returning a callfrom office. Advised no outgoing calls to patient noted in chart. Call to patient VNA agency to follow up on services provided. Was able to confirm for Home care utilization INSTRUCTOR [employer]IVATE that patient does have prefilled bubble pack for meds from [facility] pharmacy. Patient was not able to confirm if VNA is comingin daily. Patient does have MANAGER ENVIRONMENTAL hours 15 per week Tuesday- Tuesday with [facility]. Patient reporting having some symptoms of pain, Patient and MANAGER ENVIRONMENTAL transferred to Medical line for triage. documented in this encounter Miscellaneous Notes * Telephone Encounter - Alida Aguirre LPN - 01/21/2025 8:11 AM EDT Additional call placed to [facility] at this time. Spoke with Kellie. Message left with Kellie in regards to seeking name and number of roller painter or Pulverizer Tender for this patient. Attempting to obtain status of care in home for patient at this time. Pending return call at this time. documented in this encounter Plan of Treatment Upcoming Encounters Date Type Department Care Team (Late st Contact Info) Description 02/26/2025 1:00 PM EST Office Visit [facility] OPTOMETRY [address] [place] [address] Silvia Cameron, OD [address] [place] [address] documented as of this encounter Visit Diagnoses Not on filedocumented in this encounter Additional Health Concerns Assessment Noted Time PHQ-9 Depression Total Score: 19 025 1:21 PM EDT documented as of this encounter Care Teams Shell Core And Molding Supervisor Relationship Specialty Start Date End Date Cathleen Sears MD 230 [place] [address] PCP - General Family Medicine 03/28/18 Tad Baez, LaurenD 230 [place] [address] Pharmacist Internal Medicine 03/16/24 Sylwia Camarena RN [address] [place] [address] Registered Nurse Family Medicine 01/21/25 Josey Joy 01/21/25 [facility] 05/04/17 documented as of this encounter
--- OUTSIDE RECORDS SUMMARY | 2025-01-22 12:36 | XMS_ITS | Encounter Summary ---
Author Organization [employer] Address [address] [facility] [address] 7t [place] [address] Care Team Providers Care Electrical Cad Designer Name Role Phone Cathleen Sears MD Primary Care Provider Tad Baez PharmD Unavailable [phone] Sylwia Camarena RN Unavailable [phone] Josey Joy Unavailable Encounter Details Date Type Department Care Team (Late st Contact Info) Description 10/18/2024 Orders Only [facility] MEDICINE 230 [place] [address] Cathleen Sears MD 230 [place], [place] [phone] Social History Tobacco Use Types Packs/Day Years [...] Description 02/26/2025 1:00 PM EST Office Visit [facility] OPTOMETRY [address] [place] [address] Silvia Cameron, OD [address] [place] [address] documented as of this encounter Visit Diagnoses Not on filedocumented in this encounter Additional Health Concerns Assessment Noted Time PHQ-9 Depression Total Score: 19 025 1:21 PM EDT documented as of this encounter Care Teams Electrical Cad Designer Relationship Specialty Start Date End Date Cathleen Sears MD 230 [place] [address] PCP - General Family Medicine 03/28/18 Tad Baez, LaurenD 230 [place], [place] [phone] Pharmacist Internal Medicine 03/16/24 Sylwia Camarena, BRIANNA [address] [place], [place] [phone] Registered Nurse Family Medicine 01/21/25 Josey Joy 01/21/25 [facility] 05/04/17 documented as of this encounter
--- OUTSIDE RECORDS SUMMARY | 2025-01-22 12:36 | XMS_ITS | Encounter Summary ---
Author Organization [employer] Address [address] [facility] 7t [place] [address] Care Team Providers Care Emergency Services Director Name Role Phone Cathleen Sears MD Primary Care Provider [phone] Tad Baez PharmD Unavailable [phone] Sylwia Camarena RN Unavailable [phone] Josey Joy Unavailable Reason for Visit * Reason Onset Date Comments Nurse Triage 01/21/2025 Encounter Details Date Type Department Care Team (Late st Contact Info) Description 01/21/2025 Telephone [facility] MEDICINE 230 [place], [place] [phone] Cathleen Sears MD [address] [place], [place] [phone] Nurse Triage Social History Tobacco Use Types [...] encounter Miscellaneous Notes * Telephone Encounter - Valentina Owens RN - 01/21/2025 1:39 PM EDT called pt to triage, spoke to pt through [employer] Master Naval Parachutist. pt states had episode of chest pain yesterday. pt states pain center of chest that radiated to the right side of her jaw. pt denies current chest pain, sob, illness symptoms, cough, or other associated symptoms. pt states felt very gassy and started drinking water which slowly made the gassiness go away and then the pain left. offered several appts this week, declined all as she states has a lot of appts in the next week or so. advised to visit the walk-in center for evaluation as needed, or call back later in the week if she still wants/needs an appt. advised also to seek ER evaluation if the pain returns and does not go away or is severe. pt understands and agrees with plan. advised home care: rest, fluids, antacid if needed, and call back if worsening or new concerns. pt understands and agrees with plan. insurance verified. Protocol Used: Chest Pain (Adult) Protocol-Based Disposition: See in Office or Video Visit Today Video visit offer not recorded Positive Triage Question: * Patient wants to be seen * All higher-acuity triage questions were negative Care Advice Discussed: * Reasons To Call Back - Chest pain increases in frequency, duration or severity - Chest pain lasts over 5 minutes - Chest pains persist over 3 days - Difficulty breathing or unusual sweating occurs - Fever over 100.4 F (38.0 C) - You become worse * Telephone Encounter - Kike Herrera - 01/21/2025 11:47 AM EDT Symptom: Chest Pain - Adult Outcome: Schedule an urgent appointment (within 1 hour) or talk to a nurse or provider soon Reason: Caller denied all higher acuity questions Please contact pt at [phone]. (Sami Speaker) documented in this encounter Plan of Treatment Upcoming Encounters Date Type Department Care Team (Late st Contact Info) Description 02/26/2025 1:00 PM EST Office Visit [facility] OPTOMETRY [address] [place] [address] Silvia Cameron, OD [address] [place] [address] documented as of this encounter Visit Diagnoses Not on filedocumented in this encounter Additional Health Concerns Assessment Noted Time PHQ-9 Depression Total Score: 19 025 1:21 PM EDT documented as of this encounter Care Teams Emergency Services Director Relationship Specialty Start Date End Date Cathleen Sears MD [address] [place] [address] PCP - General Family Medicine 03/28/18 Tad Beaz, Sanjiv [address] [place], [place] [phone] Pharmacist Internal Medicine 03/16/24 Sylwia Camarena, BRIANNA [address] [place], [place] [phone] Registered Nurse Family Medicine 01/21/25 Josey Joy 01/21/25 [facility] 05/04/17 documented as of this encounter
--- OUTSIDE RECORDS SUMMARY | 2025-01-22 12:36 | XMS_ITS | Encounter Summary ---
Author Organization [employer] Address [address] [facility] [address] 7t [place] [address] Care Team Providers Care Recruiting Intern Name Role Phone Cathleen Sears MD Primary Care Provider [phone] Tad Baez PharmD Unavailable [phone] Sylwia Camarena RN Unavailable [phone] Josey Joy Unavailable Encounter Details Date Type Department Care Team (Late st Contact Info) Description 01/21/2025 Patient Outreach [facility] MEDICINE 230 [place] [address] Cathleen Sears MD 230 [place], [place] [phone] Social History Tobacco Use Types Packs/Day Years [...] Description 02/26/2025 1:00 PM EST Office Visit [facility] OPTOMETRY [address] [place] [address] Silvia Cameron, OD 267 [place] [address] documented as of this encounter Visit Diagnoses Not on filedocumented in this encounter Additional Health Concerns Assessment Noted Time PHQ-9 Depression Total Score: 19 025 1:21 PM EDT documented as of this encounter Care Teams Recruiting Intern Relationship Specialty Start Date End Date Cathleen Sears MD 230 [place] [address] PCP - General Family Medicine 03/28/18 Tad Baez, LaurenD [address] [place], [place] [phone] Pharmacist Internal Medicine 03/16/24 Sylwia Camarena, BRIANNA [address] [place], [place] [phone] Registered Nurse Family Medicine 01/21/25 Josey Joy 01/21/25 [facility] 05/04/17 documented as of this encounter
--- OUTSIDE RECORDS SUMMARY | 2025-01-22 12:37 | XMS_ITS ---
Author Organization [employer] Address [address] [facility] [address] 7t [place] [address] Care Team Providers Care Supervisor Wall Mirror Department Name Role Phone Cathleen Sears MD Primary Care Provider Tad Baez PharmD Unavailable [phone] Sylwia Camarena RN Unavailable [phone] Josey Joy Unavailable CM Complex Status:Identified (Enrolling) Start date:01/21/2025 Enrollment reason:Referred by provider Overview Home Health Utilization Referral- Connection for appropriate resources and collaboration for reduction for skilled VNA services. Case Team Name Relationship Phone Sylwia Camarena RN(Responsible Staff) Registered Nurse Continued Care and Services Coordination
--- OUTSIDE RECORDS SUMMARY | 2025-01-22 12:37 | XMS_ITS | Encounter Summary ---
Author Organization [employer] Address [address] [facility] [address] 7t [place] [address] Care Team Providers Care Pattern Keeper Name Role Phone Cathleen Sears MD Primary Care Provider [phone] Tad Baez PharmD Unavailable [phone] Sylwia Camarena RN Unavailable [phone] Josey Joy Unavailable Encounter Details Date Type Department Care Team (Late st Contact Info) Description 08/28/2024 Orders Only [facility] MEDICINE [address] [place], [place] [phone] Sandra Hoffman MD 230 [place], [place] [phone] Social History Tobacco Use Types Packs/Day Years [...] Description 02/26/2025 1:00 PM EST Office Visit [facility] OPTOMETRY [address] [place] [address] Silvia Cameron, OD [address] [place] [address] documented as of this encounter Procedures Procedure Name Priority Date/Time Associated Diagnosis Comments XR CHEST 1 VIEW Routine 09/09/2024 6:23 PM EDT documented in this encounter Results * XR Chest 1 View (09/09/2024 6:23 PM EDT) Anatomical Region Laterality Modality Chest Radiographic Evon ging 09/09/2024 6:23 PM EDT Narrative 09/09/2024 6:25 PM EDT [address] [address] XRay Report Signed Patient: Sandra Rose MR# : [id number] : 1965 Acct:[id number] Age/Sex: 58 / F ADM Date: 09/09/24 Loc: HO.ED Attending Dr: Ordering Physician: Joel Roman MD Date of Service: 09/09/24 Procedure(s): XR chest 1V Accession Number(s): [id number] cc: [facility]; Joel Roman MD CLINICAL HISTORY: Shortness [...] in OV> 09/09/241823 DD/ 22 TD/TT: 09/09/241822 Sales Engineer: Procedure Note Donotuseinterpreter, Image - 09/09/[address] [address] XRay Report Signed Patient: Sandra Rose DMR# : [id number] : 1965Acct:[id number] Age/Sex: 58 / FADM Date: 09/09/24 Loc: .ED Attending Dr: Ordering Physician: Joel Roman MD Date of Service: 09/09/24 Procedure(s): XR chest 1V Accession Number(s): [id number] cc: [facility]; Joel Roman MD CLINICAL HISTORY: Shortness [...] in OV> 09/09/241823 DD/ 22 TD/TT: 09/09/241822 Sales Engineer: [facility] External Provider IMG XR PROCEDURES Edited Result - Final documented in this encounter Visit Diagnoses Not on filedocumented in this encounter Additional Health Concerns Assessment Noted Time PHQ-9 Depression Total Score: 2 07/22/19 24 10:34 AM EDT documented as of this encounter Care Teams Pattern Keeper Relationship Specialty Start Date End Date Cathleen Sears MD [address] [place] [address] PCP - General Family Medicine 03/28/18 Tad Baez, LaurenD [address] [place] [address] Pharmacist Internal Medicine 03/16/24 Sylwia Camarena, BRIANNA [address] [place] [address] Registered Nurse Family Medicine 01/21/25 Josey Joy 01/21/25 [facility] 05/04/17 documented as of this encounter
--- OUTSIDE RECORDS SUMMARY | 2025-01-22 12:37 | XMS_ITS | Encounter Summary ---
Author Organization [email or web address] Address 75 [facility] 7t [place] [address] Care Team Providers Care Docking Saw Operator Name Role Phone Cathleen Sears MD Primary Care Provider Tad Baez PharmD Unavailable Bhumi Monroe RN Unavailable [phone] Sylwia Camarena RN Unavailable [phone] Josey Joy Unavailable Encounter Details Date Type Department Care Team (Late st Contact Info) Description 07/23/2024 Orders Only [facility] MEDICINE 230 [place], [place] [phone] Cathleen Sears MD 230 [place], [place] [phone] Metabolic dysfunction-associated steatotic liver disease (MASLD) (Primary [...] Description 02/26/2025 1:00 PM EST Office Visit [facility] OPTOMETRY 267 [place] [address] Silvia Cameron, OD [address] [place] [address] Scheduled Orders Name Type Priority Associated Diagnoses [...] complication, without long-term current use of insulin (HCC) documented in this encounter Additional Health Concerns Assessment Noted Time PHQ-9 Depression Total Score: 2 07/22/19 10:34 AM EDT documented as of this encounter Care Teams Docking Saw Operator Relationship Specialty Start Date End Date Cathleen Sears MD [address] [place] [address] PCP - General Family Medicine 03/28/18 Tad Baez, LaurenD [address] [place] [address] Pharmacist Internal Medicine 03/16/24 Bhumi Monroe, BRIANNA [address] [place] [address] Beach AttendantCracker Off 05/21/24 08/21/24 Sylwia Camarena, BRIANNA [address] [place] [address] Registered Nurse Family Medicine 01/21/25 Josey Joy 01/21/25 [facility] 05/04/17 documented as of this encounter
--- OUTSIDE RECORDS SUMMARY | 2025-01-22 12:37 | XMS_ITS | Encounter Summary ---
Author Organization [employer] Address [address] [facility] 7t [place] [address] Care Team Providers Care Edge Cutter Name Role Phone Cathleen Sears MD Primary Care Provider Ivett Smith RN Unavailable Unavailable Tad Baez PharmD Unavailable [phone] Bhumi Monroe RN Unavailable [phone] Sylwia Camarena RN Unavailable [phone] Josey Joy Unavailable Encounter Details Date Type Department Care Team (Late st Contact Info) Description 03/19/2022 Orders Only [facility] MED & PEDS [address] [place] [address] Laura Nova LPN Social History Tobacco Use [...] Description 02/26/2025 1:00 PM EST Office Visit [facility] OPTOMETRY [address] [place], [place] [phone] Silvia Cameron, OD 267 [place] [address] documented as of this encounter Visit Diagnoses Not on filedocumented in this encounter Care Teams Edge Cutter Relationship Specialty Start Date End Date Cathleen Sears MD [address] [place] [address] PCP - General Family Medicine 03/28/18 Ivett Smith, RN [address] [place] [address] Registered Nurse Case Management 12/30/22 01/24/24 Tad Baez, LaurenD [address] [place] [address] Pharmacist Internal Medicine 03/16/24 Bhumi Monroe, BRIANNA [address] [place] [address] Environmental Field Services TechnicianTap Dancer 05/21/24 08/21/24 Sylwia Camarena, BRIANNA [address] [place] [address] Registered Nurse Family Medicine 01/21/25 Josey Joy 01/21/25 [facility] 05/04/17 documented as of this encounter
--- OUTSIDE RECORDS SUMMARY | 2025-01-22 12:37 | XMS_ITS | Encounter Summary ---
Author Organization [employer] Address [address] [facility] 7t [place] [address] Care Team Providers Care Floor Steward/Stewardess Name Role Phone Cathleen Sears MD Primary Care Provider [phone] Tad Baez PharmD Unavailable Bhumi Monroe RN Unavailable [phone] Sylwia Camarena RN Unavailable [phone] Josey Joy Unavailable Reason for Visit * Reason Comments Med Refill Encounter Details Date Type Department Care Team (Late st Contact Info) Description 08/10/2024 Refill [facility] 230 [place], [place] [phone] Laura Shirley DO 230 [place], [place] [phone] Social History Tobacco Use Types Packs/Day Years [...] Description 02/26/2025 1:00 PM EST Office Visit [facility] OPT[facility]ET[facility] 267 [place] [address] Silvia Cameron OD 267 [place] [address] documented as of this encounter Visit Diagnoses Not on filedocumented in this encounter Additional Health Concerns Assessment Noted Time PHQ-9 Depression Total Score: 2 07/22/19 24 10:34 AM EDT documented as of this encounter Care Teams Floor Steward/Stewardess Relationship Specialty Start Date End Date Cathleen Sears MD 230 [place] [address] PCP - General Family Medicine 03/28/18 Tad Baez, Sanjiv [address] [place] [address] Pharmacist Internal Medicine 03/16/24 Bhumi Monroe, BRIANNA [address] [place] [address] Pe TeacherCar Repairer 05/21/24 08/21/24 Sylwia Camarena, BRIANNA [address] [place] [address] Registered Nurse Family Medicine 01/21/25 Josey Joy 01/21/25 [facility] 05/04/17 documented as of this encounter
--- OUTSIDE RECORDS SUMMARY | 2025-01-22 12:37 | XMS_ITS | Encounter Summary ---
Author Organization [employer] Address [address] [facility] 7t [place] [address] Care Team Providers Care Lining Parts Sewer Name Role Phone Cathleen Sears MD Primary Care Provider Ivett Smith RN Unavailable Unavailable Tad Baez PharmD Unavailable Bhumi Monroe RN Unavailable [phone] Sylwia Camarena RN Unavailable [phone] Josey Joy Unavailable Encounter Details Date Type Department Care Team (Late st Contact Info) Description 04/29/2022 Orders Only [facility] MEDICINE 230 [place] [address] Cathleen Sears MD [address] [place] [address] Dental decay (Primary Dx) Social History Tobacco [...] Description 02/26/2025 1:00 PM EST Office Visit [facility] OPTOMETRY 267 [place] [address] Bearaleigh Silvia, OD [address] [place] [address] documented as of this encounter Visit Diagnoses Diagnosis Dental decay- Primary Unspecified dental caries documented in this encounter Care Teams Lining Parts Sewer Relationship Specialty Start Date End Date Cathleen Sears MD [address] [place] [address] PCP - General Family Medicine 03/28/18 Ivett Smith, BRIANNA [address] [place] [address] Registered Nurse Case Management 12/30/22 01/24/24 Tad Baez, Sanjiv [address] [place] [address] Pharmacist Internal Medicine 03/16/24 Bhumi Monroe, BRIANNA [address] [place] [address] Metal TesterRig Hand 05/21/24 08/21/24 Sylwia Camarena, BRIANNA [address] [place] [address] Registered Nurse Family Medicine 01/21/25 Josey Joy 01/21/25 [facility] 05/04/17 documented as of this encounter
--- OUTSIDE RECORDS SUMMARY | 2025-01-22 12:37 | XMS_ITS ---
Author Organization [employer] Address 75 [facility] 7t [place] [address] Care Team Providers Care Ivf Embryologist Name Role Phone Cathleen Sears MD Primary Care Provider [phone] Tad Baez PharmD Unavailable [phone] Sylwia Camarena RN Unavailable [phone] Josey Joy Unavailable [facility] Complex Status:Identified (Enrolling) Start date:01/22/2025 Enrollment reason:Referred by provider Overview Home Health Utilization Referral- Please outreach to patient. Case Team Name Relationship Phone Josey Joy(Responsible Staff) Continued Care and Services Coordination
--- OUTSIDE RECORDS SUMMARY | 2025-01-22 12:37 | XMS_ITS | Encounter Summary ---
Author Organization [employer] Address 75 [facility] 7t [place] [address] Care Team Providers Care Bag Builder Name Role Phone Cathleen Sears MD Primary Care Provider [phone] Ivett Smith RN Unavailable Unavailable Tad Baez PharmD Unavailable [phone] Bhumi Monroe RN Unavailable [phone] Sylwia Camarena RN Unavailable [phone] Josey Joy Unavailable Reason for Visit * Reason Onset Date Comments FYI 08/16/2023 Encounter Details Date Type Department Care Team (Late st Contact Info) Description 08/16/2023 Telephone [facility] MEDICINE 230 [place], [place] [phone] Cathleen Sears MD 230 [place], [place] [phone] FYI Social History Tobacco Use Types Packs/Day [...] t he electric, gas, oil or water [employer] threatened to shut off services in your [...] calling to inform pt is currently [facility] [place] to shortness of breath . documented in this encounter Plan of Treatment Upcoming Encounters Date Type Department Care Team ([facility] st Contact Info) Description 02/26/2025 1:00 PM EST Office Visit [facility] OPTOMETRY [address] [place] [address] Silvia Cameron, OD 267 [place] [address] documented as of this encounter Visit Diagnoses Not on filedocumented in this encounter Additional Health Concerns Assessment Noted Time PHQ-9 Depression Total Score: 2 07/22/19 24 10:34 AM EDT documented as of this encounter Care Teams Bag Builder Relationship Specialty Start Date End Date Cathleen Sears MD 230 [place] [address] PCP - General Family Medicine 03/28/18 Ivett Smith, RN 230 [place] [address] Registered Nurse Case Management 12/30/22 01/24/24 Tad Baez, LaurenD 230 [place] [address] Pharmacist Internal Medicine 03/16/24 Bhumi Monroe, BRIANNA [address] [place] [address] Boom Crane OperatorPetroleum Refinery Operator 05/21/24 08/21/24 Sylwia Camarena, BRIANNA [address] [place] [address] Registered Nurse Family Medicine 01/21/25 Josey Joy 01/21/25 [facility] 05/04/17 documented as of this encounter
--- OUTSIDE RECORDS SUMMARY | 2025-01-22 12:37 | XMS_ITS | Encounter Summary ---
Author Organization [employer] Address [address] [facility] 7t [place] [address] Care Team Providers Care Regroover Name Role Phone Cathleen Sears MD Primary Care Provider Ivett Smith RN Unavailable Unavailable Tad Baez PharmD Unavailable Bhumi Monroe RN Unavailable [phone] Sylwia Camarena RN Unavailable [phone] Josey Joy Unavailable Encounter Details Date Type Department Care Team (Late st Contact Info) Description 04/12/2022 Abstract [facility] MEDICINE 230 [place], [place] [phone] Cathleen Sears MD 230 [place], [place] [phone] Social History Tobacco Use Types Packs/Day Years [...] Description 02/26/2025 1:00 PM EST Office Visit [facility] OPTOMETRY [address] [place] [address] Silvia Cameron, OD [address] [place] [address] documented as of this encounter Procedures Procedure Name Priority Date/Time Associated Diagnosis Comments THINPREP PAP AND HPV DNA REFLEX GENOTYPES 16,18 Routine 02/07/2019 12:00 AM EST documented in this encounter Results * Thinprepr PAP And HPV DNA Reflex Genotypes 16,18 (02/07/2019 12:00 AM EST) us Historical Provider MD LAB PATHOLOGY ORDERABLES Final Result [facility] [address] [place] [address] [phone] documented in this encounter Visit Diagnoses Not on filedocumented in this encounter Care Teams Regroover Relationship Specialty Start Date End Date Cathleen Sears MD [address] [place] [address] PCP - General Family Medicine 03/28/18 Ivett Smith RN [address] [place] [address] Registered Nurse Case Management 12/30/22 01/24/24 Tad Baez, LaurenD [address] [place] [address] Pharmacist Internal Medicine 03/16/24 Bhumi Monroe, BRIANNA [address] [place] [address] Entry TechSurgical Assist 05/21/24 08/21/24 Sylwia Camarena, BRIANNA [address] [place] [address] Registered Nurse Family Medicine 01/21/25 Josey Joy 01/21/25 [facility] 05/04/17 documented as of this encounter
--- OUTSIDE RECORDS SUMMARY | 2025-01-22 12:37 | XMS_ITS | Encounter Summary ---
Author Organization [employer] Address [address] [facility] 7t [place] [address] Care Team Providers Care Welder Manufacture Name Role Phone Cathleen Sears MD Primary Care Provider [phone] Ivett Smith RN Unavailable Unavailable Tad Baez PharmD Unavailable [phone] hBumi Monroe RN Unavailable [phone] Sylwia Camarena RN Unavailable [phone] Josey Joy Unavailable Encounter Details Date Type Department Care Team (Late st Contact Info) Description 09/08/2023 Telephone [facility] MEDICINE 230 [place], [place] [phone] Cathleen Sears MD 230 [place], [place] [phone] Social History Tobacco Use Types Packs/Day Years [...] PM EST Office Visit [facility] OPTOMETRY [address] [place] [address] Silvia Cameron, OD [address] [place] [address] documented as of this encounter Visit Diagnoses Not on filedocumented in this encounter Additional Health Concerns Assessment Noted Time PHQ-9 Depression Total Score: 2 07/22/19 24 10:34 AM EDT documented as of this encounter Care Teams Welder Manufacture Relationship Specialty Start Date End Date Cathleen Sears MD [address] [place] [address] PCP - General Family Medicine 03/28/18 Ivett Smith, BRIANNA [address] [place] [address] Registered Nurse Case Management 12/30/22 01/24/24 Tad Baez, LaurenD [address] [place] [address] Pharmacist Internal Medicine 03/16/24 Bhumi Monroe RN [address] [place] [address] Canal Equipment Maintenance SupervisorPhoto Finisher 05/21/24 08/21/24 Sylwia Camarena RN [address] [place] [address] Registered Nurse Family Medicine 01/21/25 Josey Joy 01/21/25 [facility] 05/04/17 documented as of this encounter
--- OUTSIDE RECORDS SUMMARY | 2025-01-22 12:37 | XMS_ITS | Encounter Summary ---
Author Organization [employer] Address 75 [facility] 7t [place] [address] Care Team Providers Care Residential Property Manager Name Role Phone Cathleen Sears MD Primary Care Provider [phone] Ivett Smith RN Unavailable Unavailable Tad Baez PharmD Unavailable [phone] Bhumi Monroe RN Unavailable [phone] Sylwia Camarena RN Unavailable [phone] Josey Joy Unavailable Encounter Details Date Type Department Care Team (Late st Contact Info) Description 07/27/2023 Orders Only [facility] MEDICINE 230 [place], [place] [phone] Cathleen Sears MD 230 [place], [place] [phone] Hypertension associated with diabetes (CMS/HCC) (CMS/HCC) (Primary [...] Description 02/26/2025 1:00 PM EST Office Visit [facility] OPTOMETRY [address] [place] [address] Silvia Cameron, OD 267 [place] [address] documented as of this encounter Procedures Procedure Name Priority Date/Time Associated Diagnosis Comments TSH W/REFLEX TO FT4 Routine 08/03/2023 1 :18 PM EDT Leg swelling BASIC METABOLIC PANEL Routine 08/03/2023 1:18 PM EDT Leg swelling documented in this encounter Results * TSH with Reflex to Free T4 (08/03/2023 1:18 PM EDT) TSH reflex Free T4 0.57 0.32 - 4.0 uIU/mL [facility] Blood 08/03/2023 1:18 PM EDT 08/03/2023 4:15 PM EDT Cathleen Sears MD LAB BLOOD ORDERABLES Final Resul t Performing Organization Address [facility] Co de Phone Number [facility] [address] [place] [address] [phone] * (ABNORMAL) Basic Metabolic Panel (08/03/2023 1:18 PM EDT) Sodium 142 135 - 145 mmol/L [facility] Potassium 3.4 3.3 - 5.1 mmol/L [facility] Chloride 93(L) 96 - 108 mmol/L [facility] Carbon Dioxide 36(H) 22 - 29 mmol/L [facility] Anion Gap 16 12 - 20 [facility] Urea Nitrogen (BUN) 11 9 - 16 mg/dL [facility] Creatinine, Serum 0.62 0.5 - 1.4 mg/dL [facility] Estimated Glomerular Filt Rate >60 [facility] Comment:NOTE: For -Am erican individuals, multiply the result by 1.210.Chronic Kidney Disease: Estimated GFR < 60 mL/min/1.48z1Lcomit Kidney Disease: Estimated GFR < 15 mL/min/1.73m2 Glucose 130(H) 60 - 115 mg/dL [facility] Calcium 10.4(H) 8.4 - 10.2 mg/dL [facility] Blood Venous blood specimen / Unknown 08/03/2023 1:18 PM EDT 08/03/2023 4:15 PM EDT Cathleen Sears MD LAB BLOOD ORDERABLES Final Resul t Performing Organization Address [facility]/ZIP Co de Phone Number [facility] [address] [place] [address] [phone] documented in this encounter Visit Diagnoses Diagnosis Hypertension associated with diabetes (HCC)- Primary Unspecified essential hypertension Leg swelling Swelling of limb documented in this encounter Additional Health Concerns Assessment Noted Time PHQ-9 Depression Total Score: 2 07/22/19 24 10:34 AM EDT documented as of this encounter Care Teams Residential Property Manager Relationship Specialty Start Date End Date Cathleen Sears MD [address] [place] [address] PCP - General Family Medicine 03/28/18 Ivett Smith, RN [address] [place] [address] Registered Nurse Case Management 12/30/22 01/24/24 Tad Baez, LaurenD [address] [place] [address] Pharmacist Internal Medicine 03/16/24 Bhumi Monroe, BRIANNA [address] [place] [address] Acquisition ManagerAmbulatory Service Representative 05/21/24 08/21/24 Sylwia Camarena, BRIANNA [address] [place] [address] Registered Nurse Family Medicine 01/21/25 Josey Joy 01/21/25 [facility] 05/04/17 documented as of this encounter
== END 2025-01-22 10:16 | disposition home or self-care (01) ==
LOC: HO.NEURO 10:15
PROVIDERS: PCP Family Medicine; Visit Provider Family Medicine
DX: M79.641 Pain in right hand (principal); M79.642 Pain in left hand
CPT/HCPCS: 95886; 95911

== ENCOUNTER → 2025-01-22 10:19 | Outpatient (BNV) | payer MEDICAID, SELFPAY | PROVIDERS: PCP Family Medicine; Visit Provider Psychiatry & Neurology Neurology | DX: G56.03 Carpal tunnel syndrome, bilateral upper limbs (principal) | CPT/HCPCS: 95886; 95911 ==

== ENCOUNTER 2025-01-27 21:44 | Inpatient (IN) | payer MEDICAID, SELFPAY ==
--- NOTE | ~2025-01-27 | XR_ITS ---
EXAMINATION: XR CHEST 2 VIEWS HISTORY: follow up prior study COMPARISON: Comparison is made with the prior examination dated 01/27/2025. FINDINGS: PA and lateral views of the chest are submitted. Again seen are opacities at both lung bases compatible with atelectasis or pneumonia. The upper lung zones are clear. There is no pleural effusion, pneumothorax, or pulmonary vascular congestion. The heart is mildly enlarged. The bones are intact. XR/XR chest 2V IMPRESSION: Cardiomegaly. Persistent bibasilar opacities, compatible with atelectasis or pneumonia. Continued follow-up is recommended to document resolution. Electronically signed by: Jackson Mott MD 01/31/2025 11:46 AM EST
--- NOTE | ~2025-01-27 | XR_ITS ---
CLINICAL HISTORY: dyspnea 1 view chest x-ray Comparison: Chest x-ray from 09/09/2024 Findings: New pulmonary lobe pulmonary opacities nonspecific and may reflect pneumonitis/pneumonia given basilar predominance. Mild edema or superimposed edema also considered. Mild cardiomegaly redemonstrated accentuated by AP technique. Small left pleural effusion suggested. No pneumothorax in this portable image. Degenerative changes include imaged AC joints. IMPRESSION: New bibasilar pulmonary opacities concerning for pneumonitis/pneumonia. Recommend attention on follow-up to ensure resolution. This document has been electronically signed by: Seng Gallegos MD on 01/27/2025 23:55:04
[2025-01-27 21:55] VITALS: BP 121/68; BP 159/97; PULSE 100; PULSE 101; RESP 15; TEMP 37.1; O2SAT 94; BMI 29.0
--- NOTE | 2025-01-27 22:32 | ECG_ITS ---
Test Reason : AMS Blood Pressure : */* mmHG Vent. Rate : 96 BPM Atrial Rate : 96 BPM P-R Int : 172 ms QRS Dur : 102 ms QT Int : 378 ms P-R-T Axes : 13 -63 42 degrees QTcB Int : 477 ms Normal sinus rhythm Left axis deviation Nonspecific ST abnormality Abnormal ECG When compared with ECG of 09-Sep-2024 17:05, No significant change was found Referred By: Catalina Gomez Electronically Signed By: Johny Velazco
[2025-01-27 22:59] LABS: IDNOW Serial# 6674DD1D
[2025-01-27 23:00] LABS: Influenza B2 Negative (Negative)
[2025-01-27 23:12] LABS: COVID-19 Test Negative (Negative); IDNOW Serial# 08D9AD1C
[2025-01-28] VITALS (27 sets, daily range): BP systolic 100–152; BP diastolic 53–90; PULSE 81–101; RESP 12–28; TEMP 36.6–37.1; O2SAT 89–97
[2025-01-28 00:23] LABS: Venous Blood Gas Refer to POC result
[2025-01-28 00:24] LABS: Hemoglobin 13.1 g/dl (12.0-16.0); Mean Corpuscular HGB Conc 29.4 g/dl (31.0-35.0); Mean Corpuscular Hemoglobin 27.8 pg (27.0-33.0); NRBC Abs Auto 0.000 X10*3/uL (0.0-0.012); NRBC Pct Auto 0.0 /100WBC (0.0-0.2); PLT CLUMP 1; Red Blood Count 4.72 X10*6/uL (4.20-5.50); SCAN SMEAR FLAG 1
[2025-01-28 00:26] LABS: Hematocrit 44.6 % (37.0-47.0); Imm Gran Abs Auto 0.07 X10*3/uL (0.00-0.03); Imm Gran Pct Auto 0.5 % (0.0-0.4); Lymphocytes Absolute Auto 2.0 X10*3/uL (1.2-4.9); MANUAL DIFF FLAG NO; Mean Corpuscular Volume 94.5 fL (80.0-98.0); Platelet Count 118 X10*3/uL (160-400); White Blood Count 14.6 X10*3/uL (4.8-10.8)
[2025-01-28 00:30] LABS: VBG HCO3 47 mmol/L (22-26); VBG O2 % Saturation 79.0 %
[2025-01-28 00:35] LABS: Ammonia 32 umol/L (13-55)
[2025-01-28 00:59] LABS: Cannabinoid Screen Urine Not Detected (Not Detect)
--- OUTSIDE RECORDS SUMMARY | 2025-01-28 01:04 | XMS_ITS | Clinical Summary ---
Author Organization [employer] Address [address] [facility] [address] [place] [address] Care Team Providers Care Cupola Hoist Operator Name Role Phone Cathleen Mo MD Primary Care Provider [phone] Tad Baez PharmD Unavailable Sylwia Camarena RN Unavailable [phone] Josey Joy Unavailable Allergies Active Allergy [...] complication, without long-term current use of insulin ([facility]) USE DIRECTED TWICE DAILY 100 each Active glucose blood (FREESTYLE LITE) test stripIndications: Type 2 diabetes mellitus without complication, without long-term current use of insulin ([facility]) TEST BLOOD SUGAR TWICE DAILY 100 strip Active TRUEplus Lancets 33G miscIndications:T ype 2 diabetes mellitus without complication, without long-term current use of insulin ([facility]) TEST BLOOD SUGAR TWICE DAILY 100 each Active acetaminophen (Tylenol Extra Strength) 500 MG tabletIndications :COPD exacerbation ([facility]) ([facility]) Take 2 tablets (1,000 mg) by mouth [...] FOR PAIN 30 patch Active nystatin (Mycostatin) 851123 UNIT/GM powderIndications :Intertrigo Apply topically 2 times [...] BY MOUTH EVERY DAY 45 tablet 1 Active rosuvastatin (Crestor) 20 MG tablet TAKE 1 TABLET BY MOUTH AT BEDTIME 90 tablet 3 Active Breo Ellipta 200-25 MCG/ACT aerosol powder inhale 1 PUFF BY MOUTH EVERY DAY RINSE MOUTH AFTER USING. 28 each 11 Active fluticasone (Flonase) 50 MCG/ACT nasal spray [...] at least 30 minutes after. 14 tablet 2024 celecoxib (CeleBREX) 100 MG capsule Take 1 capsule (100 mg) by mouth if needed in the morning and at bedtime for mild pain. 60 capsule 2 025 2024 predniSONE (Deltasone) 10 MG tablet [...] leg, and APAP prn - referred to division chair as requested by patient's caregiver - prescribe a cane to offload the weight Assessment & Plan (10/12/2023 11:52 AM EDT): - s/p fall - X-ray on 10/04/23 shows mildly displaced fracture of 2nd distal phalanx - continue off weight, ice, elevate leg, and APAP prn - refer to division chair as requested by patient's caregiver Popliteal cyst, right 10/02/2023 Assessment & Plan (10/11/2023 11:43 AM EDT): -seen on US during recent admission -repeat US Assessment & Plan (10/02/2023 4:46 PM EDT): -seen on US during recent admission -repeat US Abdominal bloating 09/27/2023 Centrilobular emphysema 09/27/2023 Overview (06/16/2024): - 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 - Anticipate to start BiPAP 21/7 mmHg - Strongly encouraged to get COVID vaccine - Keep appt with passenger locomotive engineer and resume pulmonary rehab. -Treatment Hx: Budesonide - Formoterol (Symbicort) was changed to Wixela in Jan 2023. Plan to try fluticasone / umeclidinium / vilanterol (Trelegy) per passenger locomotive engineer. Colon cancer screening 09/27/2023 Assessment & Plan [...] Plan (12/29/2024 11:50 PM EDT): Following with [facility], last seen in Nov 2023 FIB-4 index 1.78 Check the status of US (advised to call the office with plant care worker) Avoid hepatotoxic drugs Maintain non-alcohol life Follow up with GI as scheduled Assessment & Plan (06/16/2024 6:01 AM EDT): Following with [facility], last seen in Nov 2023 FIB-4 index 1.78 Check the status of US (advised to call the office with plant care worker) Avoid hepatotoxic drugs Maintain non-alcohol life Follow up with GI as scheduled Assessment & Plan (05/03/2024 5:15 PM EST): Following with [facility], last seen in Nov 2023 FIB-4 index 1.78 Check the status of US (advised to call the office with plant care worker) Avoid hepatotoxic drugs Maintain non-alcohol life Follow up with GI as scheduled Assessment & Plan (03/26/2024 5:03 PM EST): Following with [facility], last seen in Nov 2023 FIB-4 index 1.78 Check the status of US (advised to call the office with plant care worker) Avoid hepatotoxic drugs Maintain non-alcohol life Follow up with GI as scheduled Assessment & Plan (02/06/2024 5:37 AM EST): Following with [facility], last seen in Nov 2023 FIB-4 index 1.78 Check the status of US (advised to call the office with plant care worker) Avoid hepatotoxic drugs Maintain non-alcohol life Follow up with GI as scheduled Assessment & Plan (11/29/2023 11:32 AM EDT): Following with [facility], last seen in May 2023 FIB-4 index 1.78 Check the status of US Avoid hepatotoxic drugs Maintain non-alcohol life Follow up with GI as scheduled Assessment & Plan (10/11/2023 11:42 AM EDT): Following with [facility], last seen in May 2023 FIB-4 index 1.78 Check the status of US Avoid hepatotoxic drugs Maintain non-alcohol life Follow up with GI as scheduled Assessment & Plan (10/02/2023 4:34 PM EDT): Following with [facility], last seen in May 2023 FIB-4 index 1.78 Check the status of US Avoid hepatotoxic drugs Maintain non-alcohol life Follow up with GI as scheduled Assessment & Plan (08/27/2023 6:55 AM EDT): Following with [facility], last seen in May [...] & Plan (12/31/2024 9:22 AM EDT): - 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 - Anticipate to start BiPAP 21/7 mmHg - Strongly encouraged to get COVID vaccine - Keep appt with passenger locomotive engineer and resume pulmonary rehab. -Treatment Hx: Budesonide - Formoterol (Symbicort) was changed to Wixela in Jan 2023. Plan to try fluticasone / umeclidinium / vilanterol (Trelegy) per passenger locomotive engineer. Assessment & Plan (09/10/2024 8:56 AM EDT): - 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 - Anticipate to start BiPAP 21/7 mmHg - Strongly encouraged to get COVID vaccine - Keep appt with passenger locomotive engineer and resume pulmonary rehab. -Treatment Hx: Budesonide - Formoterol (Symbicort) was changed to Wixela in Jan 2023. Plan to try fluticasone / umeclidinium / vilanterol (Trelegy) per passenger locomotive engineer. Assessment & Plan (06/16/2024 5:58 AM EDT): - 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 - Anticipate to start BiPAP 21/7 mmHg - Strongly encouraged to get COVID vaccine - Keep appt with passenger locomotive engineer and resume pulmonary rehab. -Treatment Hx: Budesonide - Formoterol (Symbicort) was changed to Wixela in Jan 2023. Plan to try fluticasone / umeclidinium / vilanterol (Trelegy) per passenger locomotive engineer. Assessment & Plan (05/03/2024 5:14 PM EST): - Solar Installation Foreman: Ashly, last seen on 12/29/23 - Severe [...] supplemental oxygen 4L-6L; recommended to discuss with passenger locomotive engineer regarding to oxygen concentrator. - Strongly encouraged to get COVID vaccine - Keep appt with passenger locomotive engineer and resume pulmonary rehab. -Treatment Hx: Budesonide - Formoterol (Symbicort) was changed to Wixela in Jan 2023. Plan to try Trelegy. Assessment & Plan (04/02/2024 6:16 AM EST): - Solar Installation Foreman: Ashly, last seen on 11/18/23 - Severe [...] supplemental oxygen 4L-6L; recommended to discuss with passenger locomotive engineer regarding to oxygen concentrator. - Strongly encouraged to get COVID vaccine - Keep appt with passenger locomotive engineer and resume pulmonary rehab. -Treatment Hx: Budesonide - Formoterol (Symbicort) was changed to Wixela in Jan 2023. Plan to try Trelegy. -Since she seldom sees her [facility] passenger locomotive engineer, and she is well-known to [facility] passenger locomotive engineer / critical medicine teams, we discussed about transferring care to [facility]mon[facility]. Patient agreed with the plan initially, but decided to stay with [facility] passenger locomotive engineer. Assessment & Plan (02/06/2024 5:34 AM EST): - Solar Installation Foreman: Ashly, last seen on 11/18/23 - Severe [...] supplemental oxygen 4L-6L; recommended to discuss with passenger locomotive engineer regarding to oxygen concentrator. - Strongly encouraged to get COVID vaccine - Keep appt with passenger locomotive engineer and resume pulmonary rehab. -Treatment Hx: Budesonide - Formoterol (Symbicort) was changed to Wixela in Jan 2023. Plan to try Trelegy. -Since she seldom sees her [facility] passenger locomotive engineer, and she is well-known to [facility] passenger locomotive engineer / critical medicine teams, we discussed about transferring care to [facility]. Patient agreed with the plan initially, but decided to stay with [facility] passenger locomotive engineer. Assessment & Plan (11/29/2023 11:51 AM EDT): - Solar Installation Foreman: Ashly, last seen on 11/18/23 - Severe [...] supplemental oxygen 4L-6L; recommended to discuss with passenger locomotive engineer regarding to oxygen concentrator. - Strongly encouraged to get COVID vaccine - Keep appt with passenger locomotive engineer -Treatment Hx: Budesonide - Formoterol (Symbicort) was changed to Wixela in Jan 2023. Plan to try Trelegy. Assessment & Plan (10/11/2023 11:41 AM EDT): - Solar Installation Foreman: Ashly, last seen on 05/31/23 - Severe [...] supplemental oxygen 4L-6L; recommended to discuss with passenger locomotive engineer regarding to oxygen concentrator. - Strongly encouraged to get COVID vaccine - Keep appt with passenger locomotive engineer -Treatment Hx: Budesonide - Formoterol (Symbicort) was changed to Wixela in Jan 2023. Plan to try Trelegy. Assessment & Plan (10/04/2023 5:21 PM EDT): - Solar Installation Foreman: Ashly, last seen on 05/31/23 - Severe [...] supplemental oxygen 4L-6L; recommended to discuss with passenger locomotive engineer regarding to oxygen concentrator. - Strongly encouraged to get COVID vaccine - Keep appt with passenger locomotive engineer -Treatment Hx: Budesonide - Formoterol (Symbicort) was changed to Wixela in Jan 2023. Plan to try Trelegy. Assessment & Plan (08/23/2023 3:08 PM EDT): - Solar Installation Foreman: Ashly, last seen on 05/31/23 - Severe [...] supplemental oxygen 4L-6L; recommended to discuss with passenger locomotive engineer regarding to oxygen concentrator. - Strongly encouraged to get COVID vaccine - Keep appt with passenger locomotive engineer -Treatment Hx: Budesonide - Formoterol (Symbicort) was changed to Wixela in Jan 2023. Plan to try Trelegy. Assessment & Plan (05/08/2023 6:27 AM EST): - Solar Installation Foreman: Ashly, last seen on 01/28/23 - Acute [...] get COVID vaccine - Keep appt with passenger locomotive engineer. Plan at last visit was to do a nocturnal polysomnogram with TCCO2 monitoring to evaluate for nocturnal non-invasive ventilator assessment and chest CT w/o contrast and TTE after polysomnogram Assessment & Plan (03/01/2023 6:50 AM EST): - Solar Installation Foreman: Ashly, last seen on 01/28/23 - Severe [...] Dx COPD exacerbation, CAP, Tx azithromycin - [facility] 01/11/19-01/17/19, b/l lower lobe [...] get COVID vaccine - Keep appt with passenger locomotive engineer -Treatment Hx: Budesonide - Formoterol (Symbicort) was changed to Wixela in Jan 2023. Plan to try Trelegy. Gastroesophageal reflux disease 09/09/2022 Assessment & Plan (08/23/2023 3:11 PM EDT): [facility], last seen in May 2023 Continue pantoprazole and famotidine History of alcohol use disorder 09/09/2022 History of intravenous drug abuse 09/09/2022 Post-traumatic stress disorder 09/09/2022 COPD (chronic obstructive pulmonary disease) Assessment & Plan (12/31/2024 9:22 AM EDT): - 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 - Anticipate to start BiPAP 21/7 mmHg - Strongly encouraged to get COVID vaccine - Keep appt with passenger locomotive engineer and resume pulmonary rehab. -Treatment Hx: Budesonide - Formoterol (Symbicort) was changed to Wixela in Jan 2023. Plan to try fluticasone / umeclidinium / vilanterol (Trelegy) per passenger locomotive engineer. Assessment & Plan (09/10/2024 8:55 AM EDT): - Solar Installation Foreman: [facility], last seen on 06/07/24 - Severe [...] supplemental oxygen 4L-6L; recommended to discuss with passenger locomotive engineer regarding to oxygen concentrator. - Anticipate to start BiPAP 21/7 mmHg - Strongly encouraged to get COVID vaccine - Keep appt with passenger locomotive engineer and resume pulmonary rehab. -Treatment Hx: Budesonide - Formoterol (Symbicort) was changed to Wixela in Jan 2023. Plan to try fluticasone / umeclidinium / vilanterol (Trelegy) per passenger locomotive engineer. Assessment & Plan (06/16/2024 5:57 AM EDT): - 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 - Anticipate to start BiPAP 21/7 mmHg - Strongly encouraged to get COVID vaccine - Keep appt with passenger locomotive engineer and resume pulmonary rehab. -Treatment Hx: Budesonide - Formoterol (Symbicort) was changed to Wixela in Jan 2023. Plan to try fluticasone / umeclidinium / vilanterol (Trelegy) per passenger locomotive engineer. Assessment & Plan (05/03/2024 5:06 PM EST): - Solar Installation Foreman: [facility], last seen on 12/29/23 - Severe [...] supplemental oxygen 4L-6L; recommended to discuss with passenger locomotive engineer regarding to oxygen concentrator. - Strongly encouraged to get COVID vaccine - Keep appt with passenger locomotive engineer and resume pulmonary rehab. -Treatment Hx: Budesonide - Formoterol (Symbicort) was changed to Wixela in Jan 2023. Plan to try fluticasone / umeclidinium / vilanterol (Trelegy) per passenger locomotive engineer. Assessment & Plan (04/02/2024 6:16 AM EST): - Solar Installation Foreman: Ashly, last seen on 11/18/23 - Severe [...] supplemental oxygen 4L-6L; recommended to discuss with passenger locomotive engineer regarding to oxygen concentrator. - Strongly encouraged to get COVID vaccine - Keep appt with passenger locomotive engineer and resume pulmonary rehab. -Treatment Hx: Budesonide - Formoterol (Symbicort) was changed to Wixela in Jan 2023. Plan to try Trelegy. -Since she seldom sees her [facility] passenger locomotive engineer, and she is well-known to [facility] passenger locomotive engineer / critical medicine teams, we discussed about transferring care to [facility]. Patient agreed with the plan initially, but decided to stay with [facility] passenger locomotive engineer. Assessment & Plan (02/06/2024 5:33 AM EST): - Solar Installation Foreman: Ashly, last seen on 11/18/23 - Severe [...] supplemental oxygen 4L-6L; recommended to discuss with passenger locomotive engineer regarding to oxygen concentrator. - Strongly encouraged to get COVID vaccine - Keep appt with passenger locomotive engineer and resume pulmonary rehab. -Treatment Hx: Budesonide - Formoterol (Symbicort) was changed to Wixela in Jan 2023. Plan to try Trelegy. -Since she seldom sees her [facility] passenger locomotive engineer, and she is well-known to [facility] passenger locomotive engineer / critical medicine teams, we discussed about transferring care to [facility]. Patient agreed with the plan initially, but decided to stay with [facility] passenger locomotive engineer. Assessment & Plan (11/29/2023 11:51 AM EDT): - Solar Installation Foreman: Ashly, last seen on 11/18/23 - Severe [...] supplemental oxygen 4L-6L; recommended to discuss with passenger locomotive engineer regarding to oxygen concentrator. - Strongly encouraged to get COVID vaccine - Keep appt with passenger locomotive engineer -Treatment Hx: Budesonide - Formoterol (Symbicort) was changed to Wixela in Jan 2023. Plan to try Trelegy. Assessment & Plan (10/11/2023 11:41 AM EDT): - Solar Installation Foreman: Ashly, last seen on 05/31/23 - Severe [...] supplemental oxygen 4L-6L; recommended to discuss with passenger locomotive engineer regarding to oxygen concentrator. - Strongly encouraged to get COVID vaccine - Keep appt with passenger locomotive engineer -Treatment Hx: Budesonide - Formoterol (Symbicort) was changed to Wixela in Jan 2023. Plan to try Trelegy. Assessment & Plan (10/04/2023 5:20 PM EDT): - Solar Installation Foreman: Ashly, last seen on 05/31/23 - Severe [...] supplemental oxygen 4L-6L; recommended to discuss with passenger locomotive engineer regarding to oxygen concentrator. - Strongly encouraged to get COVID vaccine - Keep appt with passenger locomotive engineer -Treatment Hx: Budesonide - Formoterol (Symbicort) was changed to Wixela in Jan 2023. Plan to try Trelegy. Assessment & Plan (08/23/2023 3:08 PM EDT): - Solar Installation Foreman: Ashly, last seen on 05/31/23 - Severe [...] supplemental oxygen 4L-6L; recommended to discuss with passenger locomotive engineer regarding to oxygen concentrator. - Strongly encouraged to get COVID vaccine - Keep appt with passenger locomotive engineer -Treatment Hx: Budesonide - Formoterol (Symbicort) was changed to Wixela in Jan 2023. Plan to try Trelegy. Assessment & Plan (05/31/2023 4:31 PM EST): - Solar Installation Foreman: Ashly, last seen on 01/28/23 - Severe [...] supplemental oxygen 4L-6L; recommended to discuss with passenger locomotive engineer regarding to oxygen concentrator. - Strongly encouraged to get COVID vaccine - Keep appt with passenger locomotive engineer -Treatment Hx: Budesonide - Formoterol (Symbicort) was changed to Wixela in Jan 2023. Plan to try Trelegy. Assessment & Plan (05/08/2023 6:17 AM EST): - Solar Installation Foreman: Ashly, last seen on 01/28/23 - Severe [...] get COVID vaccine - Keep appt with passenger locomotive engineer -Treatment Hx: Budesonide - Formoterol (Symbicort) was changed to Wixela in Jan 2023. Plan to try Trelegy. Assessment & Plan (03/01/2023 6:49 AM EST): - Solar Installation Foreman: Ashly, last seen on 01/28/23 - Severe [...] Dx COPD exacerbation, CAP, Tx azithromycin - [facility] 01/11/19-01/17/19, b/l lower lobe [...] get COVID vaccine - Keep appt with passenger locomotive engineer -Treatment Hx: Budesonide - Formoterol (Symbicort) was changed to Wixela in Jan 2023. Plan to try Trelegy. Assessment & Plan (12/24/2022 3:40 PM EDT): - Solar Installation Foreman: Ashly, last seen on 04/15/22 - Severe exacerbation 1-2 per year, none in [id number] - Most recent exacerbation today 12/22/22, Rx prednisone taper and azithromycin - Last hospitalization for COPD exacerbation in Feb 2020, Rx ceftriaxone, steroid, discharged with prednisone burst. - Hospitalization in Mar 2019. Dx COPD exacerbation. Rx prednisone and doxycycline - Exacerbation in Jan 2019, hospitalized 02/05/19- 02/07/19, Dx COPD exacerbation, CAP, Tx azithromycin - [facility] 01/11/19-01/17/19, b/l lower lobe pneumonia, L > R, treated with IV steroid, levofloxacin, and bronchodilators Tx. Discharged with prednisone, benzonatate, levofloxacin. - Continue Symbicort and Incruse as maintenance. Plan to switch to Trelegy per passenger locomotive engineer - Continue albuterol HFA prn. - Continue DuoNeb for neb prn Tx. - Continue workin on smoking cessation. - Continue supplemental oxygen 4L - Keep appt with passenger locomotive engineer - Strongly encouraged to get COVID vaccine Assessment & Plan (12/05/2022 5:51 AM EDT): - Solar Installation Foreman: Ashly, last seen on 04/15/22 - Severe exacerbation 1-2 per year, none in [id number] - Most recent exacerbation in Feb 2020, required hospitalization at [facility], Rx ceftriaxone, steroid, discharged with prednisone burst. - Hospitalization in Mar 2019. Dx COPD exacerbation. Rx prednisone and doxycycline - Exacerbation in Jan 2019, hospitalized 02/05/19- 02/07/19, Dx COPD exacerbation, CAP, Tx azithromycin - [facility] 01/11/19-01/17/19, b/l lower lobe pneumonia, L > R, treated with IV steroid, levofloxacin, and bronchodilators Tx. Discharged with prednisone, benzonatate, levofloxacin. - Continue Symbicort and Incruse as maintenance. Plan to switch to Trelegy per passenger locomotive engineer - Continue albuterol HFA prn. - Continue DuoNeb for neb prn Tx. - Continue workin on smoking cessation. - Continue supplemental oxygen 4L - Keep appt with passenger locomotive engineer - Strongly encouraged to get COVID vaccine Assessment & Plan (05/08/2022 5:47 PM EST): - Solar Installation Foreman: Ashly, last seen on 04/15/22 - Severe exacerbation 1-2 per year, none in [id number] - Most recent exacerbation in Feb 2020, required hospitalization at [facility], Rx ceftriaxone, steroid, discharged with prednisone burst. - Hospitalization in Mar 2019. Dx COPD exacerbation. Rx prednisone and doxycycline - Exacerbation in Jan 2019, hospitalized 02/05/19- 02/07/19, Dx COPD exacerbation, CAP, Tx azithromycin - [facility] 01/11/19-01/17/19, b/l lower lobe pneumonia, L > R, treated with IV steroid, levofloxacin, and bronchodilators Tx. Discharged with prednisone, benzonatate, levofloxacin. - Continue Symbicort and Incruse as maintenance. Plan to switch to Trelegy per passenger locomotive engineer - Continue albuterol HFA prn. - Continue DuoNeb for neb prn Tx. - Continue workin on smoking cessation. - Continue supplemental oxygen 4L - Keep appt with passenger locomotive engineer - Strongly encouraged to get COVID vaccine Assessment & Plan (04/12/2022 7:28 PM EST): - Solar Installation Foreman: Ashly - Severe exacerbation 1-2 per year, none in [id number] - Most recent exacerbation in Feb 2020, required hospitalization at [facility], Rx ceftriaxone, steroid, discharged with prednisone burst. - Hospitalization in Mar 2019. Dx COPD exacerbation. Rx prednisone and doxycycline - Exacerbation in Jan 2019, hospitalized 02/05/19- 02/07/19, Dx COPD exacerbation, CAP, Tx azithromycin - [facility] 01/11/19-01/17/19, b/l lower lobe pneumonia, L > R, treated with IV steroid, levofloxacin, and bronchodilators Tx. Discharged with prednisone, benzonatate, levofloxacin. - Continue Breo and Spiriva as maintenance. Plan to switch to Trelegy per passenger locomotive engineer - Continue albuterol HFA prn. - Continue DuoNeb for neb prn Tx. - Continue workin on smoking cessation. - Continue supplemental oxygen 4L - Keep appt with passenger locomotive engineer in October. - Strongly encouraged to get [...] daily - last eye exam: referred to [facility] eye care - last comprehensive foot [...] daily - last eye exam: referred to [facility] eye care - last comprehensive foot [...] daily - last eye exam: referred to [facility] eye care - last comprehensive foot [...] daily - last eye exam: referred to [facility] eye care - last comprehensive foot [...] daily - last eye exam: referred to [facility] eye care - last comprehensive foot [...] daily - last eye exam: referred to [facility] eye care - last comprehensive foot [...] daily - last eye exam: referred to [facility] eye care - last comprehensive foot [...] daily - last eye exam: referred to [facility] eye care - last comprehensive foot [...] daily - last eye exam: referred to [facility] eye care - last comprehensive foot [...] daily - last eye exam: referred to [facility] eye care - last comprehensive foot [...] 500 mg once daily - refer to [facility] eye care - foot exam at [...] 6:44 AM EST): -Supplier: [employer] -Pt had [id number] visit with Dr. Hart, passenger locomotive engineer, on 01/28/23. He recommended supplemental oxygen 4LNC at rest and 6LNC with activity based on last evaluation -Continue as recommended. Assessment & Plan (01/05/2023 5:14 PM EDT): -Continuous supplemental oxygen 4L/m -Supplier: [employer] -Contacted [employer] for oxygen delivery RAN -Pt [...] hypoxia / COPD - previously referred to public health informatician, but pt missed appt Assessment & Plan (12/05/2022 5:49 AM EDT): - 09/24/21 Hemoglobin 19.0; Hematocrit 59.1 - likely due to hypoxia / COPD - previously referred to public health informatician, but pt missed appt Assessment & Plan (05/08/2022 5:50 PM EST): - 09/24/21 Hemoglobin 19.0; Hematocrit 59.1 - likely due to hypoxia / COPD - previously referred to public health informatician, but pt missed appt Assessment & Plan (04/12/2022 7:51 PM EST): - 09/24/21 Hemoglobin 19.0; Hematocrit 59.1 - likely due to hypoxia / COPD - previously referred to public health informatician, but pt missed appt 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 Hepatitis C antibody test positive 01/07/2015 Chronic liver disease 09/03/2014 Assessment & Plan (06/16/2024 6:02 AM EDT): -Likely due to Hx alcohol use disorder -Followed by [facility], last visit on 12/21/23 [...] to Hx alcohol use disorder -Followed by [facility], last visit on 12/21/23 [...] to Hx alcohol use disorder -Followed by [facility], last visit on 12/21/23 [...] to Hx alcohol use disorder -Followed by [facility], last visit on 12/21/23 [...] to Hx alcohol use disorder -Followed by [facility], last visit on 06/22/23 [...] to Hx alcohol use disorder -Followed by [facility], last visit on 06/22/23 [...] to Hx alcohol use disorder -Followed by [facility], last visit on 06/22/23 [...] to Hx alcohol use disorder -Followed by [facility], last visit on 06/22/23 [...] to Hx alcohol use disorder -Followed by [facility], last visit on 09/24/21 [...] to Hx alcohol use disorder -Followed by [facility], last visit on 09/24/21 [...] to Hx alcohol use disorder -Followed by [facility], last visit on 09/24/21 [...] to continue staying abstinent -consider changing to [facility] since pt has a difficulty [...] to Hx alcohol use disorder -Followed by [facility], last visit on 09/24/21 [...] to continue staying abstinent -consider changing to [facility] since pt has a difficulty getting appt with current GI Assessment & Plan (05/08/2022 5:48 PM EST): -Likely due to Hx alcohol use disorder -Followed by [facility], last visit on 09/24/21 [...] to Hx alcohol use disorder -Followed by [facility], last visit on 09/24/21 [...] mg, but if not approved will prescribe [id number] mg daily -Follow up in 3-6 mo, sooner if any problem arises Assessment & Plan (03/01/2023 6:52 AM EST): -Goal BP < 140/90 per JNC-8 and < 130/80 per ACC/AHA guideline (Treatment threshold >= 140/90 ) -Continue working on lifestyle modifications -Continue Amlodipine 10 mg daily -Recently seen by passenger locomotive engineer, Dr. Hart, and was recommended to switch [...] Previous Dx: Depression; PTSD; alcohol-induced mood disorder [facility] provider: Mumtaz, psychiatrist Dr. Cruz Current medications: sertraline 125 mg daily, perphenazine 4 mg daily Previously tried medications: risperidone; hydroxyzine; prazosin pt is depression has worsened with current living condition pt was able to contract her safety today Assessment & Plan (04/02/2024 6:22 AM EST): Previous Dx: Depression; PTSD; alcohol-induced mood disorder [facility] provider: HUI Current medications: sertraline, prazosin 2mg, hydroxyzine, and risperidone. pt is depression has worsened with current living condition pt was able to contract her safety today Assessment & Plan (10/04/2023 9:59 AM EDT): Previous Dx: Depression; PTSD; alcohol-induced mood disorder [facility] provider: [facility] Current medications: sertraline, prazosin 2mg, hydroxyzine, and risperidone. pt is depression has worsened with current living condition pt was able to contract her safety today Assessment & Plan (08/18/2023 5:43 AM EDT): Previous Dx: Depression; PTSD; alcohol-induced mood disorder [facility] provider: Mumtaz Current medications: sertraline, prazosin 2mg, hydroxyzine, and risperidone. pt is depression has worsened with current living condition pt was able to contract her safety today Assessment & Plan (05/08/2022 5:53 PM EST): Previous Dx: Depression; PTSD; alcohol-induced mood disorder [facility] provider: N Current medications: sertraline, prazosin 2mg, hydroxyzine, and risperidone. pt is depression has worsened with current living condition pt was able to contract her safety today Assessment & Plan (04/12/2022 7:43 PM EST): Previous Dx: Depression; PTSD; alcohol-induced mood disorder [facility] provider: Mumtaz Current medications: sertraline, prazosin 2mg, hydroxyzine, and risperidone. pt is depression has worsened with current living condition pt was able to contract her safety today Opioid dependence on agonist therapy ([facility]) 0 03/29/2012 Assessment & Plan (06/16/2024 6:05 [...] varenicline in Nov 2023 - referred to [facility] Assessment & Plan (06/12/2024 9:01 AM EDT): - restarted smoking in August 2023 - previously tried varenicline and nicotine replacement - not candidate for lung cancer screening CT due to severe COPD - continue working on smoking cessation - prescribed varenicline in Nov 2023 - referred to [facility] Assessment & Plan (04/26/2024 10:32 AM EST): - restarted smoking in August 2023 - previously tried varenicline and nicotine replacement - not candidate for lung cancer screening CT due to severe COPD - continue working on smoking cessation - prescribed varenicline in Nov 2023 - referred to [facility] Assessment & Plan (04/02/2024 6:20 AM EST): - restarted smoking in August 2023 - previously tried varenicline and nicotine replacement - not candidate for lung cancer screening CT due to severe COPD - continue working on smoking cessation - prescribed varenicline in Nov 2023 - referred to [facility] Assessment & Plan (02/06/2024 5:38 AM EST): - restarted smoking in August 2023 - previously tried varenicline and nicotine replacement - not candidate for lung cancer screening CT due to severe COPD - continue working on smoking cessation - prescribed varenicline in Nov 2023 - referred to [facility] Assessment & Plan (11/29/2023 11:53 AM EDT): [...] & Plan (12/29/2024 11:49 PM EDT): - Die Cutter Diamond: [facility], last visit on 06/15/20 - Current replacement: levothyroxine 225 mcg daily - Most recent thyroid function test: 0.22 06/12/24 therapeutic range, slightly low - Recheck today Assessment & Plan (09/04/2024 5:12 PM EDT): - Die Cutter Diamond: [facility], last visit on 06/15/20 - Current replacement: levothyroxine 225 mcg daily - Most recent thyroid function test: 0.22 06/12/24 therapeutic range, slightly low - Recheck today Assessment & Plan (06/16/2024 6:02 AM EDT): - Die Cutter Diamond: [facility], last visit on 06/15/20 - Current replacement: levothyroxine 225 mcg daily - Most recent thyroid function test: 11/08/23 therapeutic range - Recheck today Assessment & Plan (04/26/2024 10:32 AM EST): - Die Cutter Diamond: [facility], last visit on 06/15/20 - Current replacement: levothyroxine 225 mcg daily - Most recent thyroid function test: 11/08/23 therapeutic range Assessment & Plan (03/26/2024 5:03 PM EST): - Die Cutter Diamond: [facility], last visit on 06/15/20 - Current replacement: levothyroxine 225 mcg daily - Most recent thyroid function test: 08/03/23 therapeutic range - Requested to repeat lab today. - Encouraged to improve adherence. Assessment & Plan (02/02/2024 2:28 PM EST): - Die Cutter Diamond: [facility], last visit on 06/15/20 - Current replacement: levothyroxine 225 mcg daily - Most recent thyroid function test: 08/03/23 therapeutic range - Requested to repeat lab today. - Encouraged to improve adherence. Assessment & Plan (11/29/2023 11:32 AM EDT): - Die Cutter Diamond: [facility], last visit on 06/15/20 - Current replacement: levothyroxine 225 mcg daily - Most recent thyroid function test: 08/03/23 therapeutic range - Requested to repeat lab today. - Encouraged to improve adherence. Assessment & Plan (10/11/2023 11:43 AM EDT): - Die Cutter Diamond: [facility], last visit on 06/15/20 - Current replacement: levothyroxine 225 mcg daily - Most recent thyroid function test: 08/03/23 therapeutic range - Requested to repeat lab today. - Encouraged to improve adherence. Assessment & Plan (10/02/2023 4:45 PM EDT): - Die Cutter Diamond: [facility], last visit on 06/15/20 - Current replacement: levothyroxine 225 mcg daily - Most recent thyroid function test: 08/03/23 therapeutic range - Requested to repeat lab today. - Encouraged to improve adherence. Assessment & Plan (12/05/2022 5:49 AM EDT): - Die Cutter Diamond: [facility], last visit on 06/15/20 - Current replacement: levothyroxine 200 mcg daily - Most recent thyroid function test: 09/24/21 TSH 23.42 - 08/13/20 TSH 26.67, Free T4 0.9 - 10/22/19 TSH 48.28; Free T4 0.44 - Requested to repeat lab today. - Encouraged to improve adherence. - Advised to keep appt with Die Cutter Diamond Assessment & Plan (04/12/2022 7:31 PM EST): - Die Cutter Diamond: [facility], last visit on 06/15/20 - Current replacement: levothyroxine 200 mcg daily - Most recent thyroid function test: 09/24/21 TSH 23.42 - 08/13/20 TSH 26.67, Free T4 0.9 - 10/22/19 TSH 48.28; Free T4 0.44 - Requested to repeat lab today. - Encouraged to improve adherence. - Advised to keep appt with Die Cutter Diamond Resolved Problems Problem Noted Date Diagnosed Date Resolved Date COPD exacerbation ([facility]) 08/28/2024 09/10/2024 Assessment & Plan (08/28/2024 3:21 PM EDT): I will prescribe 5 days of Z pack and prednisone 60mg daily I will prescribe tessalon pearls for cough and acetaminophen for general discomfort CXR ordered to r/o underline pneumonia ED precautions reviewed COPD with acute exacerbation ([facility]) 03/08/2024 03/25/2024 Assessment & Plan (03/08/2024 3:47 [...] Tx for GERD and COPD Aspiration pneumonitis ([facility]) 04/28/2023 08/23/2023 Assessment & Plan (04/28/2023 1:22 PM EST): -Ordered CXR -Will re-evaluate in 4 weeks. 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 04/12/19 23 08/23/2023 Assessment & Plan (05/31/2023 4:34 PM EST): - Die Cutter Diamond: [facility], last visit on 06/15/20 - Current replacement: levothyroxine 225 mcg daily (recently increased from 212.5 mcg because patient had TSH 5.92 and free T4 0.6) - Most recent thyroid function test: Most recent TSH in Mar 2023 was 5.92 (patient was having acute illness) - Recheck thyroid function Assessment & Plan (05/08/2023 6:34 AM EST): - Die Cutter Diamond: [facility], last visit on 06/15/20 - Current replacement: levothyroxine 225 mcg daily (recently increased from 212.5 mcg because patient had TSH 5.92 and free T4 0.6) - Most recent thyroid function test: Most recent TSH in Mar 2023 was 5.92 (patient was having acute illness) - Recheck thyroid function Assessment & Plan (12/24/2022 3:43 PM EDT): - Die Cutter Diamond: [facility], last visit on 06/15/20 - Current replacement: levothyroxine 200 mcg daily - Most recent thyroid function test: 12/14/22 TSH 32.45, Free T4 0.57 - Encouraged to improve adherence. Assessment & Plan (12/05/2022 5:53 AM EDT): - Die Cutter Diamond: [facility], last visit on 06/15/20 - Current replacement: levothyroxine 200 mcg daily - Most recent thyroid function test: 09/24/21 TSH 23.42 - 08/13/20 TSH 26.67, Free T4 0.9 - 10/22/19 TSH 48.28; Free T4 0.44 - Requested to repeat lab today. - Encouraged to improve adherence. - Advised to keep appt with Die Cutter Diamond Assessment & Plan (05/08/2022 5:49 PM EST): - Die Cutter Diamond: [facility], last visit on 06/15/20 - Current replacement: levothyroxine 200 mcg daily - Most recent thyroid function test: 09/24/21 TSH 23.42 - 08/13/20 TSH 26.67, Free T4 0.9 - 10/22/19 TSH 48.28; Free T4 0.44 - Requested to repeat lab today. - Encouraged to improve adherence. - Advised to keep appt with Die Cutter Diamond Assessment & Plan (04/12/2022 7:32 PM EST): - Die Cutter Diamond: [facility], last visit on 06/15/20 - Current replacement: levothyroxine 200 mcg daily - Most recent thyroid function test: 09/24/21 TSH 23.42 - 08/13/20 TSH 26.67, Free T4 0.9 - 10/22/19 TSH 48.28; Free T4 0.44 - Requested to repeat lab today. - Encouraged to improve adherence. 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 - Last hospitalization Feb 2020. [facility] Rx ceftriaxone, steroid, discharged with prednisone burst. - Hospitalization in Mar 2019. Dx COPD exacerbation. Rx prednisone and doxycycline - Exacerbation in Jan 2019, hospitalized 02/05/19- 02/07/19, Dx COPD exacerbation, CAP, Tx azithromycin - [facility] 01/11/19-01/17/19, b/l lower lobe pneumonia, L > R, treated with IV steroid, levofloxacin, and bronchodilators Tx. Discharged with prednisone, benzonatate, levofloxacin. - Continue Symbicort and Incruse as maintenance. Plan to switch to Trelegy per passenger locomotive engineer - Continue albuterol HFA prn. - Continue DuoNeb for neb prn Tx. - Continue workin on smoking cessation. 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 - Hospitalization in Mar 2019. Dx COPD exacerbation. Rx prednisone and doxycycline - Exacerbation in Jan 2019, hospitalized 02/05/19- 02/07/19, Dx COPD exacerbation, CAP, Tx azithromycin - [facility] 01/11/19-01/17/19, b/l lower lobe pneumonia, L > R, treated with IV steroid, levofloxacin, and bronchodilators Tx. Discharged with prednisone, benzonatate, levofloxacin. - Continue Symbicort and Incruse as maintenance. Plan to switch to Trelegy per passenger locomotive engineer - Continue albuterol HFA prn. - Continue DuoNeb for neb prn Tx. - Continue workin on smoking cessation. 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 - Hospitalization in Mar 2019. Dx COPD exacerbation. Rx prednisone and doxycycline - Exacerbation in Jan 2019, hospitalized 02/05/19- 02/07/19, Dx COPD exacerbation, CAP, Tx azithromycin - [facility] 01/11/19-01/17/19, b/l lower lobe pneumonia, L > R, treated with IV steroid, levofloxacin, and bronchodilators Tx. Discharged with prednisone, benzonatate, levofloxacin. - Continue Symbicort and Incruse as maintenance. Plan to switch to Trelegy per passenger locomotive engineer - Continue albuterol HFA prn. - Continue DuoNeb for neb prn Tx. - Continue workin on smoking cessation. - Continue supplemental oxygen 4L - Keep appt with passenger locomotive engineer - Strongly encouraged to get COVID vaccine Encounters Date Type Department Care Team Description 01/28/2025 Orders Only GENERIC EXTERNAL DATA DEPARTMENT Provider, Generic External Data 01/27/2025 Orders Only GENERIC EXTERNAL DATA DEPARTMENT Provider, Generic External Data 01/21/2025 Telephone [facility] [address] [place] [id number] Cathleen Mo MD Care Coordination (Home Health Utilization) 01/21/2025 Patient Outreach [address] [address] Cathleen Mo MD Care Coordination (C3 -[facility] Josey Joy chart review) 01/21/2025 Patient Outreach [address] [address] Cathleen Mo MD Care Management (C3 -CHART REVIEW/) 01/21/2025 Patient Outreach [facility] [place] [address] Cathleen Mo MD 01/21/2025 Telephone [facility] [place] [address] Cathleen Mo MD Nurse Triage 01/21/[address] [phone] Cathleen Mo MD Care Coordination (Home Care Utilization ) 01/17/2025 Refill [facility] [place] [address] Cathleen Mo MD 01/16/2025 Telephone [facility] [place] [address] Cathleen Mo MD 01/16/2025 Refill [facility] [place] [address] Cathleen Mo MD 12/25/2024 11:30 AM EDT Office Visit [facility] [place] [address] Cathleen Mo MD Primary hypertension (Primary Dx); [...] Bilateral hand pain 12/25/2024 Travel 12/24/2024 Telephone [facility] [place] [address] Cathleen Mo MD chart prep 12/17/2024 Patient Outreach [facility] [place] [address] Cathleen Mo MD Pre-visit Planning (SDOH screening was completed on 09/04/2024) 11/29/2024 Refill [facility] [place] [address] Cathleen Mo MD 11/22/2024 Refill [facility] [address] [place] [address] Laura Shirley DO 11/22/2024 Refill [facility] [address] [place] [address] Tegan Johnson MD Other specified hypothyroidism 11/09/2024 Refill [facility] [address] [place] [address] Cathleen Mo MD 11/06/2024 Telephone [facility] [address] [place] [address] Jaun Sosa CNP Chart Prep 10/31/2024 3:45 PM EDT Office Visit [facility] [address] [place] [address] Jaun Sosa CNP Soft tissue infection (Primary Dx); [employer] 10/31/2024 Travel 10/30/2024 Refill [facility] [address] [place], [place] [phone] Cathleen Mo MD 10/30/2024 Telephone [facility] [address] [place], [place] [phone] Cathleen Mo MD Nurse Triage from Last 3 Months Immunizations Immunization Administration [...] Description 02/26/2025 1:00 PM EST Office Visit [facility] [address] [place] [address] BeakaSilvia, OD [address] [place] [address] Health Maintenance Due Date Last Done Comments CT Colonography 1966 Colonoscopy 1966 Dental Prophylaxis 1966 Dental X-Ray: Bitewings 1966 FIT 1966 Sigmoidoscopy 1966 Eye Exam 1976 Dental Oral Exam 07/22/2016 01/21/2016 Dental X-Ray: Full Mouth 01/21/2019 01/21/2016 Zoster Vaccines (2 of 2) 06/21/2024 04/26/2024 Diabetes: Foot Exam 10/10/2024 10/11/2023, Diabetes: Urine Protein Screening 11/07/2024 11/08/2023 Influenza Vaccine (#1) 2024 , 04/28/2023, 04/29/2022, Additional history exists Alcohol/Substance Use [...] Procedure Name Priority Date/Time Associated Diagnosis Comments DRUG MONITOR, PANEL 1, SCREEN, URINE Routine 01/28/2025 12:43 AM EST VENOUS BLOOD GAS Routine 01/28/2025 12:2 4 AM EST AMMONIA (P) Routine 01/28/2025 12:23 AM EST CBC WITH AUTO DIFFERENTIAL Routine 01/28/2025 12:17 AM EST LACTIC ACID Routine 01/28/2025 12:16 AM EST XR CHEST 1 VIEW Routine 01/27/2025 11:55 PM EST COVID-19 ID NOW (NOVAK) Routine 01/27/2025 10:05 PM EST INFLUENZA A B2 ID NOW ([facility]OVAK) Routine 01/27/2025 10:05 PM EST POCT GLYCOSYLATED HEMOGLOBIN (HGB A1C) Routine 12/25/2024 12:09 PM EDT Type 2 diabetes mellitus without complication, without long-term current use of insulin (CMS/HCC) POCT GLUCOSE Routine 12/25/2024 12:08 PM EDT Type 2 diabetes mellitus without complication, without long-term current use of insulin (CMS/HCC) LIPID PANEL WITH REFLEX TO DIRECT LDL [...] Relevant to Health Maintenance Results * (ABNORMAL) Drug Monitoring, Panel 1, Screen, Urine (01/28/2025 12:43 AM EST) Opiate Screen Urine Not Detected Not Detect [facility] Comment:Opiate cut-off is 30 0 ng/mL.Positive results are unconfirmed and should not be used fornon-medical purposes. Barbiturates, Urine Not Detected Not Detect [facility] Comment:Barbiturate cut-off is 200 ng/mL.Positive results are unconfirmed and should not be used fornon-medical purposes. Phencyclidine Screen Urine Not Detected Not Detect [facility] Comment:Phencyclidine cut-of f is 25 ng/mL.Positive results are unconfirmed and should not be used fornon-medical purposes. Amphetamine Screen Urine Not Detected Not Detect [facility] Comment:Amphetamine cut-off is 1000 ng/mL.Positive results are unconfirmed and should not be used fornon-medical purposes. Benzodiazepines Screen Urine Not Detected Not Detect [facility] Comment:Benzodiazepine cut-o ff is 200 ng/mL.Positive results are unconfirmed and should not be used fornon-medical purposes. Cocaine Screen Urine Not Detected Not Detect [facility] Comment:Cocaine cut-off is 3 00 ng/mL.Positive results are unconfirmed and should not be used fornon-medical purposes. Cannabinoid Screen Urine Not Detected Not Detect [facility] Comment:Cannabinoid cut-off is 50 ng/mL.Positive results are unconfirmed and should not be used fornon-medical purposes. Methadone Screen, Urine Positive(A) Not Detect ng/mL [facility] Comment:Methadone cut-off is 300 ng/mL.Positive results are unconfirmed and should not be used fornon-medical purposes. FENTANYL URINE Not Detected Not Detect [facility] Comment:Fentanyl cut-off is 1 ng/mL.Positive results are unconfirmed and should not be used fornon-medical purposes. Oxycodone Urine Screen Not Detected Not Detect ng/mL [facility] Comment:Oxycodone cut-off is 100 ng/mL.Positive results are unconfirmed and should not be used fornon-medical purposes. Buprenorphine Screen Not Detected Not Detect ng/mL [facility] Comment:Buprenorphine cut-of f is 5 ng/mL.Positive results are unconfirmed and should not be used fornon-medical purposes. 01/28/2025 12:4 3 AM EST 01/28/2025 12:46 AM EST us Generic External Data Provider LAB URINE ORDERAB LES Final Result Performing Organization Address City/State/[facility] Co de Phone Number [facility] [address] [place] [phone] * (ABNORMAL) VENOUS BLOOD GAS (01/28/2025 12:24 AM EST) VBG pH 7.32 7.32 - 7.43 [facility] Comment:METER #: [id number] additional_comment: Cb tetreak VBG PCO2 90 mmHg [facility] Comment:METER #: [id number] additional_comment: Cb tetreak VBG PO2 48 mmHg [facility] Comment:METER #: [id number] additional_comment: Cb tetreak VBG Base Excess 16.1 mmol/L [facility] Comment:METER #: [id number] additional_comment: Cb tetreak VBG HCO3 47(H) 22 - 26 mmol/L [facility] Comment:METER #: [id number] additional_comment: Cb thomaseabrenden O2 Sat, Juan 79.0 % [facility] Comment:METER #: [id number] additional_comment: Cb tetreak 01/28/2025 12:2 4 AM EST 01/28/2025 12:28 AM EST us Generic External Data Provider LAB BLOOD ORDERAB LES Final Result Performing Organization Address [facility] Co de Phone Number [facility] [address] [place] [phone] * Ammonia, Plasma (01/28/2025 12:23 AM EST) Pathologist [facility] Ammonia (P) 32 13 - 55 umol/L [facility] Comment:Slight Hemolysis.Int erpret result with caution. 01/28/2025 12:2 3 AM EST 01/28/2025 12:26 AM EST us Generic External Data Provider LAB BLOOD ORDERAB LES Final Result Performing Organization Address [facility] de Phone Number [facility] [address] [place] [phone] * (ABNORMAL) CBC auto differential (01/28/2025 12:17 AM EST) Pathologist [facility] White Blood Count 14.6(H) 4.8 - 10.8 X10*3/uL [facility] Red Blood Count 4.72 4.20 - 5.50 X10*6/uL [facility] Hemoglobin 13.1 12.0 - 16.0 g/dl [facility] Hematocrit 44.6 37.0 - 47.0 % [facility] Mean Corpuscular Volume 94.5 80.0 - 98.0 fL [facility] Mean Corpuscular Hemoglobin 27.8 27.0 - 33.0 pg [facility] Mean Corpuscular HGB Conc 29.4(L) 31.0 - 35.0 g/dl [facility] Red Cell Distribution Width 14.1 11.0 - 16.0 % [facility] Platelet Count 118(L) 160 - 400 X10*3/uL [facility] Mean Platelet Volume 10.9 9.4 - 12.3 fL [facility] Neutrophils Percent Auto 80.1(H) 45 - 73 % [facility] Imm Gran Pct Auto 0.5(H) 0.0 - 0.4 % [facility] Lymphocytes Percent Auto 13.8(L) 20 - 40 % [facility] Monocytes Percent Auto 4.4 2 - 11 % [facility] Eosinophils Percent Auto 0.8 0 - 4 % [facility] Basophils Percent Auto 0.4 0 - 2 % [facility] NRBC Pct Auto 0.0 0.0 - 0.2 /100WBC [facility] Neutrophils Absolute Auto 11.4(H) 2.0 - 8.3 x10*3/uL [facility] Imm Gran Abs Auto 0.07(H) 0.00 - 0.03 X10*3/uL [facility] Lymphocytes Absolute Auto 2.0 1.2 - 4.9 X10*3/uL [facility] Monocytes Absolute Auto 0.6 0.1 - 1.2 X10*3/uL [facility] Eosinophils Absolute Auto 0.1 0.0 - 0.4 X10*3/uL [facility] Basophils Absolute Auto 0.1 0.0 - 0.2 X10*3/uL [facility] NRBC Abs Auto 0.000 0.0 - 0.012 X10*3/uL [facility] 01/28/2025 12:1 7 AM EST 01/28/2025 12:23 AM EST us Generic External Data Provider LAB BLOOD ORDERAB LES Edited Result - Final [facility] [address] [place] [phone] [phone] * Lactic Acid (01/28/2025 12:16 AM EST) Lactic Acid 0.6 0.5 - 2.0 mmol/L [facility] 01/28/2025 12:1 6 AM EST 01/28/2025 12:23 AM EST us Generic External Data Provider LAB BLOOD ORDERAB LES Final Result Performing Organization Address City/State/[facility] Co de Phone Number [facility] [address] [place] [phone] * XR Chest 1 View (01/27/2025 11:55 PM EST) Anatomical Region Laterality Modality Chest Radiographic Evon ging 01/27/2025 11:5 5 PM EST Narrative 01/27/2025 11:56 PM EST [address] [address] XRay Report Signed Patient: Sandra Rose MR# : [id number] : 1965 Acct:[id number] Age/Sex: 59 / F ADM Date: 01/27/25 Loc: HO.ED Attending Dr: Ordering Physician: Catalina Gomez DO Date of Service: 01/27/25 Procedure(s): XR chest 1V Accession Number(s): [id number] cc: Catalina Gomez DO; Cathleen Mo MD Reason for Exam: dyspnea CLINICAL HISTORY: dyspnea 1 view chest x-ray Comparison: Chest x-ray from 09/09/2024 Findings: New pulmonary lobe pulmonary opacities nonspecific and may reflect pneumonitis/pneumonia given basilar predominance. Mild edema or superimposed edema also considered. Mild cardiomegaly redemonstrated accentuated by AP technique. Small left pleural effusion suggested. No pneumothorax in this portable image. Degenerative changes include imaged AC joints. IMPRESSION: New bibasilar pulmonary opacities concerning for pneumonitis/pneumonia. Recommend attention on follow-up to ensure resolution. This document has been electronically signed by: Seng Gallegos MD on 01/27/2025 23:55:04 Dictated By: Seng Gallegos MD Signed By: <Electronically signed by Seng Gallegos MD in OV> 01/27/252355 DD/ 54 TD/TT: 01/27/252354 Rotary Swaging Machine Operator: Procedure Note Donotjhoninterpreter, Image - 01/28/[address] [address] XRay Report Signed Patient: Sandra Rose DMR# : [id number] : 1965Acct:[id number] Age/Sex: 59 / FADM Date: 01/27/25 Loc: HO.ED Attending Dr: Ordering Physician: Catalina Gomez DO Date of Service: 01/27/25 Procedure(s): XR chest 1V Accession Number(s): [id number] cc: Catalina Gomez DO; Cathleen Mo MD Reason for Exam: dyspnea CLINICAL HISTORY: dyspnea 1 view chest x-ray Comparison: Chest x-ray from 09/09/2024 Findings: New pulmonary lobe pulmonary opacities nonspecific and may reflect pneumonitis/pneumonia given basilar predominance. Mild edema or superimposed edema also considered. Mild cardiomegaly redemonstrated accentuated by AP technique. Small left pleural effusion suggested. No pneumothorax in this portable image. Degenerative changes include imaged AC joints. IMPRESSION: New bibasilar pulmonary opacities concerning for pneumonitis/pneumonia. Recommend attention on follow-up to ensure resolution. This document has been electronically signed by: Seng Gallegos MD on 01/27/2025 23:55:04 Dictated By: Seng Gallegos MD Signed By: <Electronically signed by Seng Gallegos MD in OV> 01/27/252355 DD/ 54 TD/TT: 01/27/252354 Rotary Swaging Machine Operator: [facility] External Provider IMG XR PROCEDURES Edited Result - Final * Influenza A B2 ID NOW (Novak) (01/27/2025 10:05 PM EST) IDNOW SERIAL# [id number] [facility] Influenza A Negative Negative [facility] Influenza B2 Negative Negative [facility] Influenza A B2 Note See Note [facility] Comment:The Novak ID NOW In fluenza A B2 test is used for thequalitative detection of influenza A and B from patientswith signs and symptoms of respiratory infection.Negative results do not preclude influenza virus infectionand should not be used as the sole basis for diagnosis,treatment or other patient management decisions.There is a risk of false negative results due to thepresence of variants in the viral targets of the assay, lowlevels of virus in the specimen and co- infection withRespiratory Syncytial Virus. 01/27/2025 10:0 5 PM EST 01/27/2025 10:08 PM EST us Generic External Data Provider LAB MICROBIOLOGY - GENERAL ORDERABLES Final Result [facility] [address] [place] [phone] * COVID-19 ID NOW (NOVAK) (01/27/2025 10:05 PM EST) IDNOW SERIAL# [id number] [facility] COVID-19 TEST Negative Negative [facility] COVID-19 NOTE See Note [facility] Comment: Results are for the identification of SARS-CoV2 RNA. TheSARS-CoV2 RNA is generally detectable in respiratory samplesduring the acute phase of infection. Positive results areindicative of the presence of SARS-CoV-2 RNA; clinicalcorrelation with patient history and other diagnosticinformation is necessary to determine patient infectionstatus. Positive results do not rule out bacterial infectionor co- infection with other viruses.Testing facilities within the [facility] and itsterritories are required to report all positive results tothe appropriate public health authorities.Negative results should be treated as presumptive and, ifinconsistent with clinical signs and symptoms or necessaryfor patient management, should be tested with differentauthorized or cleared molecular tests. Negative results donot preclude SARS-CoV2 RNA infection and should not be usedas the sole basis for patient management decisions. Negativeresults should be considered in the context of a patient'srecent exposures, history and the presence of clinical signsand symptoms consistent with COVID-19.This test has been authorized by the FDA under an EmergencyUse Authorization (EUA) for use by authorized laboratories.Testing performed on the KPA ID NOW utilizing NAAT. 01/27/2025 10:0 5 PM EST 01/27/2025 10:08 PM EST Generic External Data Provider LAB MOLECULAR GISEL GNOSTICS ORDERABLES Final Result [facility] [address] [place] [phone] * (ABNORMAL) POCT glycosylated hemoglobin (Hgb A1c) (12/25/2024 12:09 PM EDT) Pathologist [facility] Hemoglobin A1C 6.3(A) 4.0 - 5.7 % QC Media Lot # [id number] Lot# Expiration Date ,354,160 Blood Capillary blood specimen / Unknown 12/25/2024 12:09 PM EDT Cathleen Mo MD POINT OF CARE TEST ENTER/EDIT OR DERABLES Final Result * POCT glucose manually resulted (12/25/2024 12:08 PM EDT) Pathologist [facility] Glucose Blood, POC 105 60 - 200 mg/dL QC Media Lot # [id number] Lot# Expiration Date 2,141,528 Blood Capillary blood specimen / Unknown 12/25/2024 12:08 PM EDT Cathleen Mo MD POINT OF CARE TEST ENTER/EDIT OR DERABLES Final Result * (ABNORMAL) Lipid Panel with Reflex to Direct LDL (06/12/2024 2:10 PM EDT) Triglycerides 269(H) <150 mg/dL [facility] Comment:Desirable Triglyceri de: less than 150 mg/dLBorderline High Triglyceride 150-199 mg/dLHigh Triglyceride: 200-499 mg/dLVery High Triglyceride: greater than or equal to 5OO mg/dL Cholesterol 282(H) <200 mg/dL [facility] Comment:Desirable Cholestero l: less than 200 mg/dLBorderline High Cholesterol: 200-239 mg/dLHigh Cholesterol: greater than 239 mg/dL LDL Cholesterol Calculated 182(H) <100 mg/dL [facility] Comment:Desirable LDL: less than 100 mg/dLNear Optimal/Above Optimal LDL: 110- 129 mg/dLBorderline High LDL: 130-159 mg/dLHigh LDL: 160-189 mg/dLVery High LDL: greater than or equal to 190 mg/dL HDL Cholesterol 47 >40 mg/dL [facility] Comment:Desirable HDL: great er than 40 mg/dL Note: This HDL assay may give artificially low results in patients with liver disease. Blood 06/12/2024 2:10 PM EDT 06/12/2024 4:45 PM EDT Cathleen Mo MD LAB BLOOD ORDERABLES Final Resul t [facility] [address] [place] [phone] * Cologuard?? colon cancer screening (03/26/2024 11:10 AM EST) Cologuard Result Negative Negative 03/30/19 5:10 PM EST [facility] (CLIA #:[id number]) Comment: NEGATIVE TEST RESULT. A negative Cologuard [...] (Martha North al, N Engl J Med 2014;370(14):5495-1104) The normal value (reference range) for this assay is negative. COLOGUARD RE-SCREENING RECOMMENDATION: Periodic colorectal cancer screening is an important part of preventive healthcare for asymptomatic individuals at average risk for colorectal cancer. Following a negative Cologuard result, the [place] Cancer Society and U.S. Multi-Society Task Force screening guidelines recommend a Cologuard re-screening interval of 3 years. References: [place] [employer] Guideline for Colorectal Cancer Screening: https://www.cancer.org/cancer/gughd-bdmtsv-zlpkug/hswiqqptw-rmfrkewmg-bwfooqq/ac s-rec ommendations.html.; Holland DK, Ivis PERDOMO, Stalin LarkinK, Colorectal Cancer Screening: Recommendations for Physicians and Patients from the U.S. Multi-Society Task Force on Colorectal Cancer Screening , Am J Gastroenterology 2017; 112:8754-7112. TEST DESCRIPTION: Composite algorithmic analysis of stool [...] (Martha North al, N Engl J Med 2014;370(14):2359-5237.) Cologuard may produce a false negative or false positive result (no colorectal cancer or precancerous polyp present at colonoscopy follow up). A negative Cologuard test result does not guarantee the absence of CRC or advanced adenoma (pre-cancer). The current Cologuard screening interval is every 3 years. ([place] [employer] Society and U.S. Multi-Society Task Force). Cologuard performance data in a 10,000 patient pivotal study using colonoscopy as the reference method can be accessed at the following location: www.[employer].Mobivery/results. Additional description of the Cologuard test process, warnings and precautions can be found at www.cologuard.com. Stool specimen (specimen) 03/26/2024 11:10 AM EST 03/27/2024 11:53 AM EST Cathleen Mo MD LAB MOLECULAR DIAGNOSTICS ORDERA BLES Final Result Performing Organization Address City/[facility]/ZIP Co de Phone Number [facility] (CLIA #:[id number]) [place] [address], [place] [phone] * Albumin, Random Urine W/Creatinine (11/08/2023 1:45 PM EDT) Creatinine, Urine 67.59 mg/dL [facility] Microalbumin Urine <5.0 mg/L [facility] Microalbum Creatinine Ratio Ur TNP <30 ug/mg cr [facility] Comment:Unable to calculate albumin/creatinine ratio due to lowmicroalbumin or creatinine result. Urine 11/08/2023 1:45 PM EDT 11/08/2023 3:56 PM EDT Cathleen Mo MD LAB URINE ORDERABLES Final Resul t [facility] [address] [place] [address] [phone] * BI Mammogram Screening Tomosynthesis Bilateral (07/13/2023 11:10 AM EDT) Anatomical Region Laterality Modality Breast Bilateral Mammography 07/13/2023 11:1 0 AM EDT Narrative 07/18/2023 3:46 PM EDT [facility] [address] [place] [address] Mammography Report Signed Patient: Sandra Rose MR# : [id number] : 1965 Acct:[id number] Age/Sex: 57 / F ADM Date: 07/13/23 Loc: LONNIE Attending Dr: Cathleen Mo MD Ordering Physician: Cathleen Mo MD Results: 1Negative Date of Service: 07/13/23 Follow Up: 1 Year From Orig ina Mammogram Procedure(s): MM tomosynthesis screening BI Accession Number(s): [id number] cc: Cathleen Mo MD EXAMINATION: MM SCREENING [...] in OV> 07/18/23 1543 DD/ 1110 TD/TT: Rotary Swaging Machine Operator: Procedure Note Donotuseinterpreter, Image - 07/18/2023 [facility] [address] [place] [address] Mammography Report Signed Patient: Sandra Rose DMR# : [id number] : 1965Acct:[id number] Age/Sex: 57 / FADM Date: 07/13/23 Loc: HO.MAMMO Attending Dr: Cathleen Mo MD Ordering Physician: Cathleen Mo MDResults: 1Negative Date of Service: 07/13/23Follow Up: 1 Year From [facility] ina Mammogram Procedure(s): MM tomosynthesis screening BI Accession Number(s): [id number] cc: Cathleen Mo MD EXAMINATION: MM SCREENING [...] in OV> 07/18/23 1543 DD/ 1110 TD/TT: Rotary Swaging Machine Operator: Cathleen Mo MD [facility] BI PROCEDURES Final Result * HIV-1/2 Antigen and Antibodies, Fourth Generation, with Reflexes (05/12/2023 11:06 AM EST) HIV AB/AG Nonreactive Nonreactive [facility] Comment:HIV-1 p24 Ag and/or HIV-1/HIV-2 Ab not detected.A test result that is nonreactive does not exclude thepossibility of exposure to or infection with HIV-1 and/orHIV-2. Nonreactive results in this assay for individualswith prior exposure to HIV-1 and/or HIV-2 may be due toantigen and antibody levels that are below the limit ofdetection of this assay.The [employer] HIV Ag/Ab Combo assay result andsupplemental assay results should be interpreted inconjunction with the patient's clinical presentation,history and other laboratory results. If the results areinconsistent with clinical evidence, additional testing issuggested to confirm the result. Blood Venous blood specimen / Unknown 05/12/2023 11:06 AM EST 05/12/2023 1:03 PM EST us Cathleen Mo MD LAB BLOOD ORDERABLES Final Resul t [facility] [address] [place] [address] [phone] * Thinprep TIS PAP And HPV mRNA E6/E7 With Reflex To HPV 16,18/45 (04/29/2022 11:38 AM EST) Clinical Information: ROUTINE PAP [facility] LMP: NONE GIVEN [employer] Prev. PAP: NONE GIVEN [employer] Prev. BX: NONE GIVEN [employer] SOURCE: None given [employer] Statement Of Adequacy: [employer] Comment: Satisfactory for evaluation. Endocervical/transformation zone component present. Interpretation/ Result: Negative for intraepithelial lesion or malignancy. [facility] COMMENT: This Pap test has been evaluated with computer assisted technology. [employer]: [facility] Comment: SXA, CT(ASCP) CT screening location: [address] [address] Review [employer] t: [facility] Comment: JNA, CT(ASCP) CT screening location: [place] [address] (Always Message) [employer] Comment: EXPLANATORY NOTE: The Pap is a [...] HPV nRNA E6/E7 Not Detected Not Detected [facility] Comment: Methodology: Chemical Research Technician-Mediated Amplification This assay detects E6/E7 viral messenger RNA (mRNA) from 14 high-risk HPV types (16,18,31,33,35,39,45,51,52,56,58,59,66,68). Cervical sources are required for HPV testing. If a vaginal source from a patient who has had a total hysterectomy with removal of cervix was submitted, please contact the testing laboratory for alternative testing options. For additional information, please refer to http://education.[employer]/faq/FNR960f0 (This link if provided for information/ educational purposes only.) 04/29/2022 11:3 8 AM EST 04/30/2022 9:58 AM EST Narrative [facility] - 05/05/2022 2:36 PM EST FASTING: UNKNOWN Cathleen Mo MD LAB PATHOLOGY ORDERABLES Final R esult [employer] [address], [place] [address] [facility] [address] [facility], ([address]) [place] [address] from Last 3 Months or Most Recently Relevant to Health Maintenance [facility] MEDICAID STAND ADULT Care Teams Cupola Hoist Operator Relationship Specialty Start Date End Date Cathleen Mo MD [address] [place] [address] PCP - General Family Medicine 03/28/18 Tad Baez, LaurenD [address] [place], [place] Pharmacist Internal Medicine 03/16/24 Sylwia Camarena, BRIANNA [address] [place] [address] Registered Nurse Family Medicine 01/21/25 Josey Joy 01/21/25 [facility] 05/04/17
--- OUTSIDE RECORDS SUMMARY | 2025-01-28 01:04 | XMS_ITS | Encounter Summary ---
Author Organization [employer] Address [address] [facility] [address] [place] [address] Care Team Providers Care Barrel Polisher Name Role Phone Cathleen Sears MD Primary Care Provider Ivett Smith RN Unavailable Unavailable Tad Baez PharmD Unavailable [phone] Bhumi Monroe RN Unavailable [phone] Sylwia Camarena RN Unavailable Josey Joy Unavailable Encounter Details Date Type Department Care Team (Late st Contact Info) Description 04/29/2022 Orders Only [facility] MEDICINE [address] [place] [address] Cathleen Sears MD [address] [place] [address] Dental decay (Primary Dx) Social History Tobacco [...] Description 02/26/2025 1:00 PM EST Office Visit [facility] OPTOMETRY [address] [place] [address] Bearaleigh Silvia, OD [address] [place] [address] documented as of this encounter Visit Diagnoses Diagnosis Dental decay- Primary Unspecified dental caries documented in this encounter Care Teams Barrel Polisher Relationship Specialty Start Date End Date Cathleen Sears MD [address] [place] [phone] PCP - General Family Medicine 03/28/18 Ivett Smith, BRIANNA [address] [place] [phone] Registered Nurse Case Management 12/30/22 01/24/24 Tad Baez, Sanjiv [address] [place] [phone] Pharmacist Internal Medicine 03/16/24 Bhumi Monroe, BRIANNA [address] [place] [phone] Flour Blender HelperHuman Geography Instructor 05/21/24 08/21/24 Sylwia Camarena, BRIANNA [address] [place] [phone] Registered Nurse Family Medicine 01/21/25 Josey Joy 01/21/25 [facility] 05/04/17 documented as of this encounter
--- OUTSIDE RECORDS SUMMARY | 2025-01-28 01:04 | XMS_ITS | Encounter Summary ---
Author Organization [employer] Address [address] [facility] 7t [place] [address] Care Team Providers Care Retail Banker Name Role Phone Cathleen Sears MD Primary Care Provider Ivett Smith RN Unavailable Unavailable Tad Baez PharmD Unavailable [phone] Bhumi Monroe RN Unavailable [phone] Sylwia Camarena RN Unavailable Josey Joy Unavailable Encounter Details Date Type Department Care Team (Late st Contact Info) Description 07/27/2023 Orders Only [facility] MEDICINE [address] [place], [place] [phone] Cathleen Sears MD 230 [place], [place] [phone] Hypertension associated with diabetes (CMS/HCC) (CMS/HCC) (Primary [...] Description 02/26/2025 1:00 PM EST Office Visit [facility] OPTOMETRY [address] [place] [address] Silvia Cameron, OD [address] [place] [address] documented as of this encounter Procedures Procedure Name Priority Date/Time Associated Diagnosis Comments TSH W/REFLEX TO FT4 Routine 08/03/2023 1 :18 PM EDT Leg swelling BASIC METABOLIC PANEL Routine 08/03/2023 1:18 PM EDT Leg swelling documented in this encounter Results * TSH with Reflex to Free T4 (08/03/2023 1:18 PM EDT) TSH reflex Free T4 0.57 0.32 - 4.0 uIU/mL [facility] Blood 08/03/2023 1:18 PM EDT 08/03/2023 4:15 PM EDT Cathleen Sears MD LAB BLOOD ORDERABLES Final Resul t Performing Organization Address [place] Co de Phone Number [facility] [address] [place] [address] [phone] * (ABNORMAL) Basic Metabolic Panel (08/03/2023 1:18 PM EDT) Sodium 142 135 - 145 mmol/L [facility] Potassium 3.4 3.3 - 5.1 mmol/L [facility] Chloride 93(L) 96 - 108 mmol/L [facility] Carbon Dioxide 36(H) 22 - 29 mmol/L [facility] Anion Gap 16 12 - 20 [facility] Urea Nitrogen (BUN) 11 9 - 16 mg/dL [facility] Creatinine, Serum 0.62 0.5 - 1.4 mg/dL [facility] Estimated Glomerular Filt Rate >60 [facility] Comment:NOTE: For -Am erican individuals, multiply the result by 1.210.Chronic Kidney Disease: Estimated GFR < 60 mL/min/1.89w3Uaadhz Kidney Disease: Estimated GFR < 15 mL/min/1.73m2 Glucose 130(H) 60 - 115 mg/dL [facility] Calcium 10.4(H) 8.4 - 10.2 mg/dL [facility] Blood Venous blood specimen / Unknown 08/03/2023 1:18 PM EDT 08/03/2023 4:15 PM EDT Cathleen Sears MD LAB BLOOD ORDERABLES Final Resul t Performing Organization Address [facility]/ZIP Co de Phone Number [facility] [address] [place] [address] [phone] documented in this encounter Visit Diagnoses Diagnosis Hypertension associated with diabetes (HCC)- Primary Unspecified essential hypertension Leg swelling Swelling of limb documented in this encounter Additional Health Concerns Assessment Noted Time PHQ-9 Depression Total Score: 2 07/22/19 24 10:34 AM EDT documented as of this encounter Care Teams Retail Banker Relationship Specialty Start Date End Date Cathleen Sears MD [address] [place] [address] PCP - General Family Medicine 03/28/18 Ivett Smith, RN [address] [place] [address] Registered Nurse Case Management 12/30/22 01/24/24 Tad Baez, LaurenD [address] [place] [address] Pharmacist Internal Medicine 03/16/24 Bhumi Monroe, BRIANNA [address] [place] [address] Executive ProducerPipe Line Inspector 05/21/24 08/21/24 Sylwia Camarena, BRIANNA [address] [place] [address] Registered Nurse Family Medicine 01/21/25 Josey Joy 01/21/25 [facility] 05/04/17 documented as of this encounter
--- OUTSIDE RECORDS SUMMARY | 2025-01-28 01:04 | XMS_ITS | Encounter Summary ---
Author Organization [employer] Address [address] [facility] [address] 7t [place] [address] Care Team Providers Care Elementary School Social Worker Name Role Phone Cathleen Sears MD Primary Care Provider [phone] Tad Baez PharmD Unavailable [phone] Sylwia Camarena RN Unavailable [phone] Josey Joy Unavailable Encounter Details Date Type Department Care Team (Late st Contact Info) Description 10/18/2024 Orders Only [facility] MEDICINE 230 [place] [address] Cathleen Sears MD 230 [place], [place] [phone] Social History Tobacco Use Types Packs/Day Years [...] Description 02/26/2025 1:00 PM EST Office Visit [facility] OPTOMETRY 267 [place] [address] Silvia Cameron, OD 267 [place] [address] documented as of this encounter Visit Diagnoses Not on filedocumented in this encounter Additional Health Concerns Assessment Noted Time PHQ-9 Depression Total Score: 19 025 1:21 PM EDT documented as of this encounter Care Teams Elementary School Social Worker Relationship Specialty Start Date End Date Cathleen Sears MD 230 [place] [address] PCP - General Family Medicine 03/28/18 Tad Baez, LaurenD [address] [place], [place] [phone] Pharmacist Internal Medicine 03/16/24 Sylwia Camarena, BRIANNA [address] [place], [place] [phone] Registered Nurse Family Medicine 01/21/25 Josey Joy 01/21/25 [facility] 05/04/17 documented as of this encounter
--- OUTSIDE RECORDS SUMMARY | 2025-01-28 01:04 | XMS_ITS | Encounter Summary ---
Author Organization [employer] Address [address] [facility] [address] 7t [place] [address] Care Team Providers Care Hog Pusher Name Role Phone Cathleen Sears MD Primary Care Provider Tad Baez PharmD Unavailable Sylwia Camarena RN Unavailable [phone] Josey Joy Unavailable Encounter Details Date Type Department Care Team (Late st Contact Info) Description 10/18/2024 Orders Only [facility] MEDICINE 230 [place] [address] Cathleen Sears MD 230 [place], [place] [phone] Social History Tobacco Use Types Packs/Day Years [...] Description 02/26/2025 1:00 PM EST Office Visit [facility] OPTOMETRY [address] [place] [address] Silvia Cameron, OD [address] [place] [address] documented as of this encounter Visit Diagnoses Not on filedocumented in this encounter Additional Health Concerns Assessment Noted Time PHQ-9 Depression Total Score: 19 025 1:21 PM EDT documented as of this encounter Care Teams Hog Pusher Relationship Specialty Start Date End Date Cathleen Sears MD 230 [place] [address] PCP - General Family Medicine 03/28/18 Tad Baez, LaurenD 230 [place], [place] [phone] Pharmacist Internal Medicine 03/16/24 Sylwia Camarena, BRIANNA [address] [place], [place] [phone] Registered Nurse Family Medicine 01/21/25 Josey Joy 01/21/25 [facility] 05/04/17 documented as of this encounter
--- OUTSIDE RECORDS SUMMARY | 2025-01-28 01:04 | XMS_ITS | Encounter Summary ---
Author Organization [employer] Address 75 [facility] 7t [place] [address] Care Team Providers Care Independent Crop Consultant Name Role Phone Cathleen Sears MD Primary Care Provider [phone] Tad Baez PharmD Unavailable Bhumi Monroe RN Unavailable [phone] Sylwia Camarena RN Unavailable [phone] Josey Joy Unavailable Reason for Referral * Imaging (Routine) - Closed Specialty Diagnoses / Procedures Referred By Sina nicolas Referred To Contact Radiology Diagnoses Zayra's thyroiditis Preauricular mass Parotid mass Procedures CT Soft Tissue Neck w/ Contrast Cathleen Sears MD 230 [place] [address] Phone: tel: fax: [address] Phone: tel: fax: Referral ID Status Reason Start Date Expiration Date Visits Re quested Visits Authorized [id number] Closed 02/07/2024 02/06/2025 1 1 Encounter Details Date Type Department Care Team (Late st Contact Info) Description 02/04/2024 Orders Only [facility] MED[facility] 230 [place], [place] [phone] Cathleen Sears MD [address] [place], [place] [phone] Zayra's thyroiditis (Primary Dx); Preauricular mass; Parotid [...] Description 02/26/2025 1:00 PM EST Office Visit [facility] OPTOMETRY [address] [place], [place] [phone] Silvia Cameron, OD [address] [place] [address] Scheduled Orders Name Type Priority Associated Diagnoses [...] documented as of this encounter Care Teams Independent Crop Consultant Relationship Specialty Start Date End Date Cathleen Sears MD 230 [place] [address] PCP - General Family Medicine 03/28/18 Tad Baez, Sanjiv [address] [place] [address] Pharmacist Internal Medicine 03/16/24 Bhumi Monroe, BRIANNA [address] [place] [address] Tests SuperintendentTile Designer 05/21/24 08/21/24 Sylwia Camarena, BRIANNA [address] [place] [address] Registered Nurse Family Medicine 01/21/25 Josey Joy 01/21/25 [facility] 05/04/17 documented as of this encounter
--- OUTSIDE RECORDS SUMMARY | 2025-01-28 01:04 | XMS_ITS | Encounter Summary ---
Author Organization [employer] Address [address] [facility] 7t [place] [address] Care Team Providers Care Speeder Frame Tender Name Role Phone Cathleen Sears MD Primary Care Provider Tad Baez PharmD Unavailable Bhumi Monroe RN Unavailable [phone] Sylwia Camarena RN Unavailable [phone] Josey Joy Unavailable Reason for Visit * Reason Onset Date Comments Pt1 04/10/2024 Encounter Details Date Type Department Care Team (Late st Contact Info) Description 04/10/2024 Telephone [facility] MEDICINE 230 [place], [place] [phone] Cathleen Sears MD [address] [place], [place] [phone] Pt1 Social History Tobacco Use Types Packs/Day [...] Y/N: Yes Provider name or facility name: [address] [place] [address] [address], [place] [address] [facility] Escort needed: Y/N: No Do you have a wheelchair: Y/N: No If yes- Manual or electric: Visits: (3 x Month) Pt has Apt this Tuesday documented in this encounter Plan of Treatment Upcoming Encounters Date Type Department Care Team (Late st Contact Info) Description 02/26/2025 1:00 PM EST Office Visit [facility] OPTOMETRY [address] [place], [place] [phone] Silvia Cameron, OD 267 [place] [address] documented as of this encounter Visit Diagnoses Not on filedocumented in this encounter Additional Health Concerns Assessment Noted Time PHQ-9 Depression Total Score: 2 07/22/19 24 10:34 AM EDT documented as of this encounter Care Teams Speeder Frame Tender Relationship Specialty Start Date End Date Cathleen Sears MD 230 [place] [address] PCP - General Family Medicine 03/28/18 Tad Baez, LaurenD [address] [place] [address] Pharmacist Internal Medicine 03/16/24 Bhumi Monroe, BRIANNA [address] [place] [address] Trench Trimmer FineSoaker 05/21/24 08/21/24 Sylwia Camarena, BRIANNA [address] [place] [address] Registered Nurse Family Medicine 01/21/25 Josey Joy 01/21/25 [facility] 05/04/17 documented as of this encounter
--- OUTSIDE RECORDS SUMMARY | 2025-01-28 01:04 | XMS_ITS | Encounter Summary ---
Author Organization [employer] Address [address] [facility] 7t [place] [address] Care Team Providers Care Regional Training Manager Name Role Phone Cathleen Sears MD Primary Care Provider [phone] Ivett Smith RN Unavailable Unavailable Tad Baez PharmD Unavailable [phone] Bhumi Monroe RN Unavailable [phone] Sylwia Camarena RN Unavailable [phone] Josey Joy Unavailable Encounter Details Date Type Department Care Team (Late st Contact Info) Description 09/08/2023 Telephone [facility] MEDICINE 230 [place], [place] [phone] Cathleen Sears MD 230 [place], [place] [phone] Social History Tobacco Use Types Packs/Day Years [...] PM EST Office Visit [facility] OPTOMETRY [address] [place] [address] Silvia Cameron, OD [address] [place] [address] documented as of this encounter Visit Diagnoses Not on filedocumented in this encounter Additional Health Concerns Assessment Noted Time PHQ-9 Depression Total Score: 2 07/22/19 24 10:34 AM EDT documented as of this encounter Care Teams Regional Training Manager Relationship Specialty Start Date End Date Cathleen Sears MD [address] [place] [address] PCP - General Family Medicine 03/28/18 Ivett Smith, BRIANNA [address] [place] [address] Registered Nurse Case Management 12/30/22 01/24/24 Tad Baez, LaurenD [address] [place] [address] Pharmacist Internal Medicine 03/16/24 Bhumi Monroe RN [address] [place] [address] Connie ScratcherCustomer Complaint Clerk 05/21/24 08/21/24 Sylwia Camarena RN [address] [place] [address] Registered Nurse Family Medicine 01/21/25 Josey Joy 01/21/25 [facility] 05/04/17 documented as of this encounter
--- OUTSIDE RECORDS SUMMARY | 2025-01-28 01:04 | XMS_ITS | Encounter Summary ---
Author Organization [employer] Address [address] [facility] 7t [place] [address] Care Team Providers Care Dental Hygiene Teacher Name Role Phone Cathleen Sears MD Primary Care Provider [phone] Tad Baez PharmD Unavailable [phone] Bhumi Monroe RN Unavailable [phone] Sylwia Camarena RN Unavailable [phone] Josey Joy Unavailable Reason for Referral * Consultation (Routine) - Closed Specialty Diagnoses / Procedures Referred By Sina nicolas Referred To Contact Otolaryngology Diagnoses Parotid mass Sensorineural hearing loss (SNHL) of both ears Cathleen Sears MD 230 [place] [address] Phone: tel: fax: Referral ID Status Reason Start Date Expiration Date V isits Requested Visits Authorized [id number] Closed Specialty Services Required 06/20/2024 06/20/2025 1 1 Encounter Details Date Type Department Care Team (Late st Contact Info) Description 06/20/2024 Orders Only [facility] MEDICINE [address] [place] [address] [phone] Cathleen Sears MD [address] [place], [place] [phone] Parotid mass (Primary Dx); Sensorineural hearing loss [...] PM EST Office Visit [facility] OPTOMETRY [address] [place] [address] Silvia Cameron, OD [address] [place] [address] Scheduled Referrals Name Type Priority Associated Diagnoses [...] documented as of this encounter Care Teams Dental Hygiene Teacher Relationship Specialty Start Date End Date Cathleen Sears MD [address] [place] [address] PCP - General Family Medicine 03/28/18 Tad Baez, LaurenD [address] [place] [address] Pharmacist Internal Medicine 03/16/24 Bhumi Monroe, BRIANNA [address] [place] [address] BiotechnicianFiller Operator 05/21/24 08/21/24 Sylwia Camarena, BRIANNA [address] [place] [address] Registered Nurse Family Medicine 01/21/25 Josey Joy 01/21/25 [facility] 05/04/17 documented as of this encounter
--- OUTSIDE RECORDS SUMMARY | 2025-01-28 01:04 | XMS_ITS | Encounter Summary ---
Author Organization [employer] Address 75 [facility] 7t [place] [address] Care Team Providers Care Stage Electrician Helper Name Role Phone Cathleen Sears MD Primary Care Provider Ivett Smith RN Unavailable Unavailable Tad Baez PharmD Unavailable [phone] Bhumi Monroe RN Unavailable [phone] Sylwia Camarena RN Unavailable Josey Joy Unavailable Encounter Details Date Type Department Care Team (Late st Contact Info) Description 03/19/2022 Orders Only [facility] [address] [place] [address] Laura Nova LPN Social History Tobacco Use [...] Description 02/26/2025 1:00 PM EST Office Visit [facility] OPTOMETRY [address] [place], [place] [phone] Silvia Cameron, OD 267 [place] [address] documented as of this encounter Visit Diagnoses Not on filedocumented in this encounter Care Teams Stage Electrician Helper Relationship Specialty Start Date End Date Cathleen Sears MD [address] [place] [address] PCP - General Family Medicine 03/28/18 Ivett Smith, RN [address] [place] [address] Registered Nurse Case Management 12/30/22 01/24/24 Tad Baez, LaurenD [address] [place] [address] Pharmacist Internal Medicine 03/16/24 Bhumi Monroe, BRIANNA [address] [place] [address] Photoengraving Etcher ApprenticeMachining Department Supervisor 05/21/24 08/21/24 Sylwia Camarena, BRIANNA [address] [place] [address] Registered Nurse Family Medicine 01/21/25 Josey Joy 01/21/25 [facility] 05/04/17 documented as of this encounter
--- OUTSIDE RECORDS SUMMARY | 2025-01-28 01:04 | XMS_ITS | Encounter Summary ---
Author Organization [employer] Address [address] [facility] 7t [place] [address] Care Team Providers Care Clean Room Operator Name Role Phone Cathleen Sears MD Primary Care Provider Ivett Smith RN Unavailable Unavailable Tad Baez PharmD Unavailable [phone] Bhumi Monroe RN Unavailable [phone] Sylwia Camarena RN Unavailable [phone] Josey Joy Unavailable Encounter Details Date Type Department Care Team (Late st Contact Info) Description 04/12/2022 Abstract [facility] MEDICINE 230 [place], [place] [phone] Cathleen Sears MD 230 [place], [place] [phone] Social History Tobacco Use Types Packs/Day Years [...] Office Visit [facility] OPTOMETRY [address] [place] [address] Silvia Cameron, OD [address] [place] [address] documented as of this encounter Procedures Procedure Name Priority Date/Time Associated Diagnosis Comments THINPREP PAP AND HPV DNA REFLEX GENOTYPES 16,18 Routine 02/07/2019 12:00 AM EST documented in this encounter Results * Thinprepr PAP And HPV DNA Reflex Genotypes 16,18 (02/07/2019 12:00 AM EST) us Historical Provider MD LAB PATHOLOGY ORDERABLES Final Result [facility] [address] [place] [address] [phone] documented in this encounter Visit Diagnoses Not on filedocumented in this encounter Care Teams Clean Room Operator Relationship Specialty Start Date End Date Cathleen Sears MD [address] [place] [address] PCP - General Family Medicine 03/28/18 Ivett Smith RN [address] [place] [address] Registered Nurse Case Management 12/30/22 01/24/24 Tad Baez, LaurenD [address] [place] [address] Pharmacist Internal Medicine 03/16/24 Bhumi Monroe, BRIANNA [address] [place] [address] ShotblasterChild And Adolescent Psychiatrist 05/21/24 08/21/24 Sylwia Camarena, BRIANNA [address] [place] [address] Registered Nurse Family Medicine 01/21/25 Josey Joy 01/21/25 [facility] 05/04/17 documented as of this encounter
--- OUTSIDE RECORDS SUMMARY | 2025-01-28 01:05 | XMS_ITS | Encounter Summary ---
Author Organization [employer] Address 75 [facility] 7t [place] [address] Care Team Providers Care Rug Dyer Name Role Phone Cathleen Sears MD Primary Care Provider [phone] Tad Baez PharmD Unavailable Bhumi Monroe RN Unavailable [phone] Sylwia Camarena RN Unavailable [phone] Josey Joy Unavailable Encounter Details Date Type Department Care Team (Late st Contact Info) Description 07/23/2024 Orders Only [facility] MEDICINE 230 [place], [place] [phone] Cathleen Sears MD 230 [place], [place] [phone] Metabolic dysfunction-associated steatotic liver disease (MASLD) (Primary [...] PM EST Office Visit [facility] OPTOMETRY [address] [place] [address] Silvia Cameron, OD 267 [place] [address] Scheduled Orders Name Type Priority Associated Diagnoses [...] documented as of this encounter Care Teams Rug Dyer Relationship Specialty Start Date End Date Cathleen Sears MD [address] [place] [address] PCP - General Family Medicine 03/28/18 Tad Baez, LaurenD [address] [place] [address] Pharmacist Internal Medicine 03/16/24 Bhumi Monroe, BRIANNA [address] [place] [phone] Manager DemandManager Operational 05/21/24 08/21/24 Sylwia Camarena, BRIANNA [address] [place] [address] Registered Nurse Family Medicine 01/21/25 Josey Joy 01/21/25 [facility] 05/04/17 documented as of this encounter
--- OUTSIDE RECORDS SUMMARY | 2025-01-28 01:05 | XMS_ITS | Encounter Summary ---
Author Organization [employer] Address [address] [facility] [place] [address] Care Team Providers Care Physician/Ophthalmologist Name Role Phone Cathleen Sears MD Primary Care Provider [phone] Tad Baez PharmD Unavailable [phone] Sylwia Camarena RN Unavailable [phone] Josey Joy Unavailable Encounter Details Date Type Department Care Team (Late st Contact Info) Description 01/28/2025 Orders Only GENERIC EXTERNAL DATA DEPARTMENT Provider, Generic External Data Social History Tobacco Use Types Packs/Day Years [...] 1:00 PM EST Office Visit [facility] OPTOMETRY [address] [place] [address] Tarka Silvia, OD [address] [place] [address] documented as of this encounter Procedures Procedure Name Priority Date/Time Associated Diagnosis Comments DRUG MONITOR, PANEL 1, SCREEN, URINE Routine 01/28/2025 12:43 AM EST VENOUS BLOOD GAS Routine 01/28/2025 12:2 4 AM EST AMMONIA (P) Routine 01/28/2025 12:23 AM EST CBC WITH AUTO DIFFERENTIAL Routine 01/28/2025 12:17 AM EST LACTIC ACID Routine 01/28/2025 12:16 AM EST documented in this encounter Results * (ABNORMAL) Drug Monitoring, Panel 1, Screen, Urine (01/28/2025 12:43 AM EST) Opiate Screen Urine Not Detected Not Detect [facility] Comment:Opiate cut-off is 30 0 ng/mL.Positive results are unconfirmed and should not be used fornon-medical purposes. Barbiturates, Urine Not Detected Not Detect [facility] Comment:Barbiturate cut-off is 200 ng/mL.Positive results are unconfirmed and should not be used fornon-medical purposes. Phencyclidine Screen Urine Not Detected Not Detect [facility] Comment:Phencyclidine cut-of f is 25 ng/mL.Positive results are unconfirmed and should not be used fornon-medical purposes. Amphetamine Screen Urine Not Detected Not Detect [facility] Comment:Amphetamine cut-off is 1000 ng/mL.Positive results are unconfirmed and should not be used fornon-medical purposes. Benzodiazepines Screen Urine Not Detected Not Detect [facility] Comment:Benzodiazepine cut-o ff is 200 ng/mL.Positive results are unconfirmed and should not be used fornon-medical purposes. Cocaine Screen Urine Not Detected Not Detect [facility] Comment:Cocaine cut-off is 3 00 ng/mL.Positive results are unconfirmed and should not be used fornon-medical purposes. Cannabinoid Screen Urine Not Detected Not Detect [facility] Comment:Cannabinoid cut-off is 50 ng/mL.Positive results are unconfirmed and should not be used fornon-medical purposes. Methadone Screen, Urine Positive(A) Not Detect ng/mL [facility] Comment:Methadone cut-off is 300 ng/mL.Positive results are unconfirmed and should not be used fornon-medical purposes. FENTANYL URINE Not Detected Not Detect [facility] Comment:Fentanyl cut-off is 1 ng/mL.Positive results are unconfirmed and should not be used fornon-medical purposes. Oxycodone Urine Screen Not Detected Not Detect ng/mL [facility] Comment:Oxycodone cut-off is 100 ng/mL.Positive results are unconfirmed and should not be used fornon-medical purposes. Buprenorphine Screen Not Detected Not Detect ng/mL [facility] Comment:Buprenorphine cut-of f is 5 ng/mL.Positive results are unconfirmed and should not be used fornon-medical purposes. 01/28/2025 12:4 3 AM EST 01/28/2025 12:46 AM EST Generic External Data Provider LAB URINE ORDERAB LES Final Result Performing Organization Address [facility] Co de Phone Number [facility] [address] [place] [address] [phone] * (ABNORMAL) VENOUS BLOOD GAS (01/28/2025 12:24 AM EST) VBG pH 7.32 7.32 - 7.43 [facility] Comment:METER #: [id number] additional_comment: Cb tetreak VBG PCO2 90 mmHg [facility] Comment:METER #: [id number] additional_comment: Cb tetreak VBG PO2 48 mmHg [facility] Comment:METER #: [id number] additional_comment: Cb tetreak VBG Base Excess 16.1 mmol/L [facility] Comment:METER #: [id number] additional_comment: Cb tetreak VBG HCO3 47(H) 22 - 26 mmol/L [facility] Comment:METER #: [id number] additional_comment: Cb tetreak O2 Sat, Juan 79.0 % [facility] Comment:METER #: [id number] additional_comment: Cb tetreak 01/28/2025 12:2 4 AM EST 01/28/2025 12:28 AM EST us Generic External Data Provider LAB BLOOD ORDERAB LES Final Result Performing Organization Address [facility] Co de Phone Number [facility] [address] [place] [address] [phone] * Ammonia, Plasma (01/28/2025 12:23 AM EST) Ammonia (P) 32 13 - 55 umol/L [facility] Comment:Slight Hemolysis.Int erpret result with caution. 01/28/2025 12:2 3 AM EST 01/28/2025 12:26 AM EST us Generic External Data Provider LAB BLOOD ORDERAB LES Final Result [facility] [address] [place] [phone] * (ABNORMAL) CBC auto differential (01/28/2025 12:17 AM EST) Pathologist [facility] White Blood Count 14.6(H) 4.8 - 10.8 X10*3/uL [facility] Red Blood Count 4.72 4.20 - 5.50 X10*6/uL [facility] Hemoglobin 13.1 12.0 - 16.0 g/dl [facility] Hematocrit 44.6 37.0 - 47.0 % [facility] Mean Corpuscular Volume 94.5 80.0 - 98.0 fL [facility] Mean Corpuscular Hemoglobin 27.8 27.0 - 33.0 pg [facility] Mean Corpuscular HGB Conc 29.4(L) 31.0 - 35.0 g/dl [facility] Red Cell Distribution Width 14.1 11.0 - 16.0 % [facility] Platelet Count 118(L) 160 - 400 X10*3/uL [facility] Mean Platelet Volume 10.9 9.4 - 12.3 fL [facility] Neutrophils Percent Auto 80.1(H) 45 - 73 % [facility] Imm Gran Pct Auto 0.5(H) 0.0 - 0.4 % [facility] Lymphocytes Percent Auto 13.8(L) 20 - 40 % [facility] Monocytes Percent Auto 4.4 2 - 11 % [facility] Eosinophils Percent Auto 0.8 0 - 4 % [facility] Basophils Percent Auto 0.4 0 - 2 % [facility] NRBC Pct Auto 0.0 0.0 - 0.2 /100WBC [facility] Neutrophils Absolute Auto 11.4(H) 2.0 - 8.3 x10*3/uL [facility] Imm Gran Abs Auto 0.07(H) 0.00 - 0.03 X10*3/uL [facility] Lymphocytes Absolute Auto 2.0 1.2 - 4.9 X10*3/uL [facility] Monocytes Absolute Auto 0.6 0.1 - 1.2 X10*3/uL [facility] Eosinophils Absolute Auto 0.1 0.0 - 0.4 X10*3/uL [facility] Basophils Absolute Auto 0.1 0.0 - 0.2 X10*3/uL [facility] NRBC Abs Auto 0.000 0.0 - 0.012 X10*3/uL [facility] 01/28/2025 12:1 7 AM EST 01/28/2025 12:23 AM EST Generic External Data Provider LAB BLOOD ORDERAB LES Edited Result - Final Performing Organization Address [facility] Co de Phone Number [facility] [address] [place] [phone] * Lactic Acid (01/28/2025 12:16 AM EST) Lactic Acid 0.6 0.5 - 2.0 mmol/L [facility] 01/28/2025 12:1 6 AM EST 01/28/2025 12:23 AM EST Generic External Data Provider LAB BLOOD ORDERAB LES Final Result Performing Organization Address [facility] Co de Phone Number [facility] [address] [place] [phone] documented in this encounter Visit Diagnoses Not on filedocumented in this encounter Additional Health Concerns Assessment Noted Time PHQ-9 Depression Total Score: 19 025 1:21 PM EDT documented as of this encounter Care Teams Physician/Ophthalmologist Relationship Specialty Start Date End Date Cathleen Sears MD [address] [place], [place] [phone] PCP - General Family Medicine 03/28/18 Tad Baez, Sanjiv [address] [place], [place] [phone] Pharmacist Internal Medicine 03/16/24 Sylwia Camarena, BRIANNA [address] [place], [place] [phone] Registered Nurse Family Medicine 01/21/25 Josey Joy 01/21/25 [facility] 05/04/17 documented as of this encounter
--- OUTSIDE RECORDS SUMMARY | 2025-01-28 01:05 | XMS_ITS ---
Author Organization [employer] Address [address] [facility] [address] [place] [address] Care Team Providers Care Electrical Instrument Maker Name Role Phone Cathleen Sears MD Primary Care Provider [phone] Tad Baez PharmD Unavailable [phone] Sylwia Camarena RN Unavailable [phone] Josey Joy Unavailable CM Complex Status:Identified (Enrolling) Start date:01/21/2025 Enrollment reason:Referred by provider Overview Home Health Utilization Referral- Connection for appropriate resources and collaboration for reduction for skilled VNA services. Case Team Name Relationship Phone Sylwia Camarena RN(Responsible Staff) Registered Nurse Continued Care and Services Coordination
--- OUTSIDE RECORDS SUMMARY | 2025-01-28 01:05 | XMS_ITS | Encounter Summary ---
Author Organization [employer] Address [address] [facility] [address]t [place] [address] Care Team Providers Care Person Investigator Name Role Phone Cathleen Sears MD Primary Care Provider [phone] Ivett Smith RN Unavailable Unavailable Tad Baez PharmD Unavailable [phone] Bhumi Monroe RN Unavailable [phone] Sylwia Camarena RN Unavailable [phone] Josey Joy Unavailable Reason for Visit * Reason Onset Date Comments FYI 08/16/2023 Encounter Details Date Type Department Care Team (Late st Contact Info) Description 08/16/[address] [facility] MEDICINE [address] [place], [place] [phone] Cathleen Sears MD [address] [place], [place] [phone] FYI Social History Tobacco Use Types Packs/Day [...] t he electric, gas, oil or water [employer] threatened to shut off services in your [...] calling to inform pt is currently at [facility] due to shortness of breath . documented in this encounter Plan of Treatment Upcoming Encounters Date Type Department Care Team ([facility] st Contact Info) Description 02/26/2025 1:00 PM EST Office Visit [facility] OPTOMETRY [address] [place] [address] Silvia Cameron, OD [address] [place] [address] documented as of this encounter Visit Diagnoses Not on filedocumented in this encounter Additional Health Concerns Assessment Noted Time PHQ-9 Depression Total Score: 2 07/22/19 24 10:34 AM EDT documented as of this encounter Care Teams Person Investigator Relationship Specialty Start Date End Date Cathleen Sears MD [address] [place] [address] PCP - General Family Medicine 03/28/18 Ivett Smith, RN [address] [place] [address] Registered Nurse Case Management 12/30/22 01/24/24 Tad Baez, LaurenD [address] [place] [address] Pharmacist Internal Medicine 03/16/24 Bhumi Monroe, BRIANNA [address] [place] [phone] Treating InspectorMeasurement Psychologist 05/21/24 08/21/24 Sylwia Camarena, BRIANNA [address] [place] [address] Registered Nurse Family Medicine 01/21/25 Josey Joy 01/21/25 [facility] 05/04/17 documented as of this encounter
--- OUTSIDE RECORDS SUMMARY | 2025-01-28 01:05 | XMS_ITS | Encounter Summary ---
Author Organization [employer] Address 75 [facility] 7t [place] [address] Care Team Providers Care Digital Circuit Designer Name Role Phone Cathleen Sears MD Primary Care Provider Tad Baez PharmD Unavailable Bhumi Monroe RN Unavailable [phone] Sylwia Camarena RN Unavailable [phone] Josey Joy Unavailable Reason for Visit * Reason Comments Med Refill Encounter Details Date Type Department Care Team (Late st Contact Info) Description 08/10/2024 Refill [facility] [address] [place], [place] [phone] Laura Shirley DO [address] [place], [place] [phone] Social History Tobacco Use Types Packs/Day Years [...] Description 02/26/2025 1:00 PM EST Office Visit [facility] OPTOMETRY [address] [place] [address] Silvia Cameron OD [address] [place] [address] documented as of this encounter Visit Diagnoses Not on filedocumented in this encounter Additional Health Concerns Assessment Noted Time PHQ-9 Depression Total Score: 2 07/22/19 24 10:34 AM EDT documented as of this encounter Care Teams Digital Circuit Designer Relationship Specialty Start Date End Date Cathleen Sears MD [address] [place] [address] PCP - General Family Medicine 03/28/18 Tad Baez, Sanjiv [address] [place] [address] Pharmacist Internal Medicine 03/16/24 Bhumi Monroe, BRIANNA [address] [place] [address] Mat Cleaning Machine OperatorMachine Veneer Repairer 05/21/24 08/21/24 Sylwia Camarena, BRIANNA [address] [place] [address] Registered Nurse Family Medicine 01/21/25 Josey Joy 01/21/25 [facility] 05/04/17 documented as of this encounter
--- OUTSIDE RECORDS SUMMARY | 2025-01-28 01:05 | XMS_ITS ---
Author Organization [employer] Address 75 [facility] 7t [place] [address] Care Team Providers Care Income Tax Manager Name Role Phone Cathleen Sears MD Primary Care Provider [phone] Tad Baez PharmD Unavailable [phone] Sylwia Camarena RN Unavailable [phone] Josey Joy Unavailable CHW Complex Status:Identified (Enrolling) Start date:01/22/2025 Enrollment reason:Referred by provider Overview Home Health Utilization Referral- Please outreach to patient. Case Team Name Relationship Phone Josey Joy(Responsible Staff) Continued Care and Services Coordination
--- OUTSIDE RECORDS SUMMARY | 2025-01-28 01:05 | XMS_ITS | Encounter Summary ---
Author Organization [employer] Address 75 [facility] [address] [place] [address] Care Team Providers Care Waste Chopper Name Role Phone Cathleen Sears MD Primary Care Provider [phone] Tad Baez PharmD Unavailable [phone] Sylwia Camarena RN Unavailable [phone] Josey Joy Unavailable Encounter Details Date Type Department Care Team (Late st Contact Info) Description 01/27/2025 Orders Only GENERIC EXTERNAL DATA DEPARTMENT [...] Office Visit [facility] OPTOMETRY [address] [place] [address] Tarraleigh Silvia, OD [address] [place] [address] documented as of this encounter Procedures Procedure Name Priority Date/Time Associated Diagnosis Comments XR CHEST 1 VIEW Routine 01/27/2025 11:55 PM EST INFLUENZA A B2 ID NOW (NOVAK) Routine 01/27/2025 10:05 PM EST COVID-19 ID NOW (NOVAK) Routine 01/27/2025 10:05 PM EST documented in this encounter Results * XR Chest 1 View (01/27/2025 11:55 PM EST) Anatomical Region Laterality Modality Chest Radiographic Evon ging 01/27/2025 11:5 5 PM EST Narrative 01/27/2025 11:56 PM EST [address] [address] XRay Report Signed Patient: Sandra Rose MR# : [id number] : 1965 Acct:[id number] Age/Sex: 59 / F ADM Date: 01/27/25 Loc: HO.ED Attending Dr: Ordering Physician: Catalina Gomez DO Date of Service: 01/27/25 Procedure(s): XR chest 1V Accession Number(s): [id number] cc: Catalina Gomez DO; Cathleen Sears MD Reason for Exam: dyspnea CLINICAL HISTORY: [...] in OV> 01/27/252355 DD/ 54 TD/TT: 01/27/252354 Stewarding Supervisor: Procedure Note Donotuseinterpreter, Image - 01/28/[address] [address] XRay Report Signed Patient: Sandra Rose DMR# : [id number] : 1965Acct:[id number] Age/Sex: 59 / FADM Date: 01/27/25 Loc: HO.ED Attending Dr: Ordering Physician: Catalina Gomez DO Date of Service: 01/27/25 Procedure(s): XR chest 1V Accession Number(s): [id number] cc: Catalina Gomez DO; Cathleen Sears MD Reason for Exam: dyspnea CLINICAL HISTORY: [...] in OV> 01/27/252355 DD/ 54 TD/TT: 01/27/252354 Stewarding Supervisor: [facility] External Provider IMG XR PROCEDURES Edited Result - Final * COVID-19 ID NOW (NOVAK) (01/27/2025 10:05 PM EST) IDNOW SERIAL# [id number] [facility] COVID-19 TEST Negative Negative [facility] COVID-19 NOTE See Note [facility] Comment: Results are for the identification of SARS-CoV2 RNA. TheSARS-CoV2 RNA is generally detectable in respiratory samplesduring the acute phase of infection. Positive results areindicative of the presence of SARS-CoV-2 RNA; clinicalcorrelation with patient history and other diagnosticinformation is necessary to determine patient infectionstatus. Positive results do not rule out bacterial infectionor co- infection with other viruses.Testing facilities within the [facility] and itsterritories are required to report all [...] use by authorized laboratories.Testing performed on the Novak ID NOW utilizing NAAT. 01/27/2025 10:0 5 PM EST 01/27/2025 10:08 PM EST Generic External Data Provider LAB MOLECULAR GISEL GNOSTICS ORDERABLES Final Result Performing Organization Address [facility] Co de Phone Number [facility] [address] [place] [phone] * Influenza A B2 ID NOW (Zones) (01/27/2025 10:05 PM EST) IDNOW SERIAL# [id number] [facility] Influenza A Negative Negative [facility] Influenza B2 Negative Negative [facility] Influenza A B2 Note See Note [facility] Comment:The Novak ID NOW In fluenza [...] PM EST Generic External Data Provider LAB MICROBIOLOGY - GENERAL ORDERABLES Final Result Performing Organization Address [facility] Co de Phone Number [facility] [address] [place] [phone] documented in this encounter Visit Diagnoses Not on filedocumented in this encounter Additional Health Concerns Assessment Noted Time PHQ-9 Depression Total Score: 19 025 1:21 PM EDT documented as of this encounter Care Teams Waste Chopper Relationship Specialty Start Date End Date Cathleen Sears MD [address] [place] [address] PCP - General Family Medicine 03/28/18 Tad Baez, LaurenD [address] [place] [address] Pharmacist Internal Medicine 03/16/24 Sylwia Camarena, BRIANNA [address] [place] [address] Registered Nurse Family Medicine 01/21/25 Josey Joy 01/21/25 [facility] 05/04/17 documented as of this encounter
--- OUTSIDE RECORDS SUMMARY | 2025-01-28 01:05 | XMS_ITS | Encounter Summary ---
Author Organization [employer] Address [address] [facility] [address] [place] [address] Care Team Providers Care Hot Dimpling Machine Operator Name Role Phone Cathleen Sears MD Primary Care Provider [phone] Tad Baez PharmD Unavailable Sylwia Camarena RN Unavailable [phone] Josey Joy Unavailable Encounter Details Date Type Department Care Team (Late st Contact Info) Description 08/28/2024 Orders Only [facility] MEDICINE [address] [place] [address] Sandra Hoffman MD [address] [place], [place] [phone] Social History Tobacco Use Types Packs/Day Years [...] Description 02/26/2025 1:00 PM EST Office Visit [facility] OPTOMETRY [address] [place] [address] Silvia Cameron, OD [address] [place] [address] documented as of this encounter Procedures Procedure Name Priority Date/Time Associated Diagnosis Comments XR CHEST 1 VIEW Routine 09/09/2024 6:23 PM EDT documented in this encounter Results * XR Chest 1 View (09/09/2024 6:23 PM EDT) Anatomical Region Laterality Modality Chest Radiographic Evno ging 09/09/2024 6:23 PM EDT Narrative 09/09/2024 6:25 PM EDT [address] [address] XRay Report Signed Patient: Sandra Rose MR# : [id number] : 1965 Acct:[id number] Age/Sex: 58 / F ADM Date: 09/09/24 Loc: HO.ED Attending Dr: Ordering Physician: Joel Roman MD Date of Service: 09/09/24 Procedure(s): XR chest 1V Accession Number(s): [id number] cc: [facility]; Joel Roman MD CLINICAL HISTORY: Shortness [...] in OV> 09/09/241823 DD/ 22 TD/TT: 09/09/241822 Cafeteria Cashier: Procedure Note Donotuseinterpreter, Image - 09/09/[address] [address] XRay Report Signed Patient: Sandra Rose DMR# : [id number] : 1965Acct:[id number] Age/Sex: 58 / FADM Date: 09/09/24 Loc: .ED Attending Dr: Ordering Physician: Joel Roman MD Date of Service: 09/09/24 Procedure(s): XR chest 1V Accession Number(s): [id number] cc: [facility]; Joel Roman MD CLINICAL HISTORY: Shortness [...] in OV> 09/09/241823 DD/ 22 TD/TT: 09/09/241822 Cafeteria Cashier: [facility] External Provider IMG XR PROCEDURES Edited Result - Final documented in this encounter Visit Diagnoses Not on filedocumented in this encounter Additional Health Concerns Assessment Noted Time PHQ-9 Depression Total Score: 2 07/22/19 24 10:34 AM EDT documented as of this encounter Care Teams Hot Dimpling Machine Operator Relationship Specialty Start Date End Date Cathleen Sears MD [address] [place] [address] PCP - General Family Medicine 03/28/18 Tad Baez, LaurenD [address] [place] [address] Pharmacist Internal Medicine 03/16/24 Sylwia Camarena, BRIANNA [address] [place] [address] Registered Nurse Family Medicine 01/21/25 Josey Joy 01/21/25 [facility] 05/04/17 documented as of this encounter
[2025-01-28 01:25] LABS: Troponin-I High Sensitivity < 2.7 ng/L (<3.5-17.0)
[2025-01-28 01:27] LABS: Alanine Aminotransferase 12 U/L (0-31); Albumin Level 4.2 g/dL (3.5-5.0); Alkaline Phosphatase 100 U/L (39-117); Anion Gap 12 (12-20); Aspartate Amino Transferase 28 U/L (5-31); Blood Urea Nitrogen 10 mg/dL (9-16); Calcium 8.9 mg/dL (8.4-10.2); Chloride 94 mmol/L (96-108); Creatinine Clr Calc Pharmacy 104.7; Estimated Glomerular Filt Rate > 60; Magnesium 2.3 mg/dL (1.6-2.6); Potassium 5.3 mmol/L (3.3-5.1); Sodium 141 mmol/L (135-145); Total Protein 7.4 g/dL (6.5-8.0)
[2025-01-28 01:28] LABS: Carbon Dioxide 40 mmol/L (22-29)
[2025-01-28] MEDS: Lactated Ringers 1,000 ML 999 ML IV (05:45)
[2025-01-28 05:51] LABS: Venous Blood Gas Refer to POC result
[2025-01-28 05:54] LABS: VBG HCO3 46 mmol/L (22-26); VBG O2 % Saturation 84.0 %
--- NOTE | 2025-01-28 06:01 | PC.NURSE ---
Addendum entered by Marcela Negrete RN 01/28/25 06:02: error wrong chart Original Note: pt continuing to yell out from room. offered water and pt refuses. asking to leave and go home. have attempted to contact her family and waiting for response
--- NOTE | 2025-01-28 06:27 | ED.AMS ---
HPI - Altered Mental Status General Chief Complaint: Upper Respiratory Symptoms Stated Complaint: Flu-like symptoms x4days Time Seen by Provider: 01/27/25 22:12 Source: EMS, RN notes reviewed and old records reviewed Mode of arrival: EMS Limitations: altered mental status History of Present Illness ED Provider: Dr. Catalina Gomez HPI narrative: 59-year-old female with a history of oxygen-dependent COPD on 6 liters of nasal cannula oxygen at all times, alcoholic liver cirrhosis, GERD presenting with reported shortness of breath, flu-like symptoms, and altered mental status from home. Patient is unable to give any history secondary to her clinical condition. EMS reports they were called by her roommate as she thought she had taken drugs and had given the patient's CPR. Patient reported to EMS that she had taken TheraFlu for her flu-like symptoms that have been ongoing for the last 4 days and this medication makes her sleepy. She ultimately decided to come to the hospital by EMS because of her flu-like symptoms. Related Data Home Medications ?Medication ?Instructions ?Recorded ?Confirmed perphenazine 4 mg tablet 4 mg PO BEDTIME 09/24/21 01/28/25 levothyroxine 200 mcg tablet 200 mcg PO DAILY@0600 10/01/22 01/28/25 umeclidinium 62.5 mcg/actuation 1 inh inhalation DAILY 10/01/22 01/28/25 blister powder for inhalation (Incruse Ellipta) ipratropium 0.5 mg-albuterol 3 mg 3 ml inhalation QID PRN wheezing 04/20/23 01/28/25 (2.5 mg base)/3 mL nebulization soln sertraline 100 mg tablet 100 mg PO DAILY@119904/20/23 01/28/25 furosemide 20 mg tablet 20 mg PO BID 08/16/23 01/28/25 amlodipine 10 mg tablet 5 mg PO DAILY@119909/03/23 01/28/25 albuterol sulfate 90 mcg/actuation 2 puff inhalation Q6H PRN wheezing 10/06/23 01/28/25 aerosol inhaler (Ventolin HFA) acetaminophen 500 mg tablet 1,000 mg PO Q8H PRN moderate pain 12/08/23 01/28/25 methadone 10 mg/mL oral concentrate 56 mg PO DAILY 01/06/24 09/10/24 metformin 500 mg tablet,extended 500 mg PO BID 04/02/24 01/28/25 release 24 hr rosuvastatin 20 mg tablet 20 mg PO DAILY 04/02/24 01/28/25 cetirizine 10 mg tablet 5 mg PO DAILY 09/10/24 01/28/25 hydroxyzine pamoate 25 mg capsule 25 mg PO BEDTIME insomnia 09/10/24 01/28/25 celecoxib 100 mg capsule 100 mg PO BID mild pain 01/28/25 01/28/25 lidocaine 5 % topical patch 1 patch topical DAILY PRN Pain 01/28/25 01/28/25 sertraline 25 mg tablet 25 mg PO DAILY 01/28/25 01/28/25 Previous Rx's ?Medication ?Instructions ?Recorded fluticasone furoate 200 1 inh inhalation DAILY #60 ea 01/09/24 mcg-vilanterol 25 mcg/dose inhalation powder (Breo Ellipta) docusate sodium 100 mg capsule 100 mg PO BID PRN Constipation #60 06/20/24 caps famotidine 40 mg tablet 40 mg PO BEDTIME #30 tabs 06/20/24 pantoprazole 40 mg tablet,delayed 40 mg PO DAILY #30 tabs 06/20/24 release sennosides 8.6 mg tablet (senna) 17.2 mg (2 x 8.6 mg) PO BEDTIME 06/20/24 PRN constipation #60 tabs Allergies Allergy/AdvReac Type Severity Reaction Status Date / Time Penicillins (PENICILLINS) Allergy Unknown RED ITCHY Verified 01/27/25 22:02 RASH SEAFOOD Allergy Unknown FEVER Uncoded 01/27/25 22:02 SWELLING Review of Systems Review of Systems: Yes Unobtainable due to mental status [facility] Past Medical History Medical History (Updated 01/28/25 @ 15:55 by Miki Johnson MD) Diabetes type 2 COPD (chronic obstructive pulmonary disease) Alcoholic cirrhosis Chronic respiratory failure Opioid use disorder, moderate, in sustained remission Opiate abuse, continuous Diabetes Nausea and vomiting COVID Community acquired pneumonia Colon cancer screening COPD (chronic obstructive pulmonary disease) Methadone dependence Hepatitis C Pulmonary edema Polysubstance abuse Hypertension Acute and chronic respiratory failure Hypotension Respiratory failure Acute respiratory failure, unspecified whether with hypoxia or hypercapnia Hyperlipidemia Psychosis Hypoxia Acute exacerbation of chronic obstructive airways disease HTN (hypertension) Hypothyroid Family History Family History Father HTN (hypertension) Mother Gastritis Ovarian cancer Arthritis Son Thyroid disease Other Hypothyroid Social History Social History Household Members: Other Household Members Other:: 1 Housing: Apartment Do you presently have visiting nurse or other home services: Yes ([facility]) Unable to assess alcohol history related to: Unable to respond Alcohol intake: current Alcohol intake frequency: does not drink Comment: refuses bed alarm at times Patient Tobacco Use Status: Current everyday Tobacco user Tobacco use type: Cigarette Cigarette Packs Per Day: 1 Cigarettes Per Day: 10 Years Smoked: 30 e-Cigarette/Vaping Use: Never Used Second Hand Smoke Exposure: No Substance Use Type: Heroin Advance Directives: Yes Advance Directives on File: Yes Advance Directives Date on File: 08/18/23 Do you have a plan to hurt others: No Plan Nutrition Risks: No Nutritional Risk Patient : No : No Poor oral hygiene: No service: No Current occupational status: unemployed Physical Exam ED Exam Exam: GENERAL: Appears intoxicated, GCS 13, eyes open to voice, slurred speech. SKIN: Normal skin color for ethnicity, warm, dry, no rashes noted. HEENT: Normocephalic, atraumatic, no stridor, posterior oropharynx nonerythematous, dentition intact, EOMI, pupils are pinpoint bilaterally, reactive to light. NECK: Soft, supple, no step-offs, no deformities, no lymphadenopathy. CHEST: Heart regular tachycardia, no murmurs, symmetric chest rise and fall. PULMONARY: Clear to auscultation bilaterally, diminished at the bases, no labored breathing, no wheezes/rhales/rhonchi. ABDOMINAL: Soft, nondistended, quiet bowel sounds in all quadrants. : Deferred. MUSCULOSKELETAL: Normal tone, full range of motion, no deformities, no peripheral edema. NEURO: GCS 13, eyes open to voice, slightly slurred speech, CN II through XII intact, equal strength and sensation bilateral upper and lower extremities, no focal neurologic deficits. PSYCHIATRIC: Flat affect, poor eye contact. Vital Signs: Vital Signs - 24 hr 01/28/25 07:04 01/28/25 08:22 01/28/25 08:30 Temperature Pulse Rate 89 95 Respiratory Rate 24 H 24 H 28 H Blood Pressure 120/69 125/74 Pulse Oximetry 92 91 L Oxygen Delivery Method BiPAP BiPAP Fraction of Inspired Oxygen 35 35 01/28/25 10:00 01/28/25 10:57 01/28/25 11:00 Temperature 97.8 F 98 F Pulse Rate 94 96 Respiratory Rate 26 H 26 H 20 Blood Pressure 140/53 H 136/79 Pulse Oximetry 90 L 90 L Oxygen Delivery Method BiPAP BiPAP Fraction of Inspired Oxygen 35 35 BMI result Body Mass Index 29.0 Course Course Course Narrative: Lourdes Momin, DO 01/28/25 07 patient is more alert has been on bipap for 7 hours. no real improvement with gas and still requiring NIPPV. I did let Dr. Johnson know. It appears she received all meds previous to my involvement including abx. I am adding on steroids. 01/28/2025 11:00 Patient remains on BiPAP will be admitted to the ICU to Dr. Alex MOMIN Medications Administered Generic Name Dose Route Start Last Admin Trade Name Freq PRN Reason Stop Dose Admin Albuterol/Ipratropium 3 ml 01/28/25 20:00 01/28/25 19:56 Albuterol/Iprat 2.5/0.5mg 3 Ml Ampul.Neb INHALE 3 ml RQ6H WHILE AWAKE MAYRA Administration Furosemide 20 mg 01/28/25 21:00 01/28/25 20:36 Furosemide 20 Mg Tablet PO 20 mg BID MAYRA Administration Protocol Heparin Sodium (Porcine) 5,000 unit 01/28/25 11:30 01/29/25 05:05 Heparin Sodium,Porcine 5,000 Unit/Ml Vial SUBCUT Not Given Q8H MAYRA Perphenazine 4 mg 01/28/25 21:00 01/28/25 20:36 Perphenazine 4 Mg Tablet PO 4 mg BEDTIME MAYRA Administration Discontinued Medications Generic Name Dose Route Start Last Admin Trade Name Freq PRN Reason Stop Dose Admin Acetazolamide 500 mg 01/28/25 14:12 01/28/25 14:29 Acetazolamide Sodium 500 Mg Vial IVPUSH 01/28/25 14:13 500 mg ONCE ONE Administration Ceftriaxone Sodium 1 gm/ 50 mls @ 100 mls/hr 01/27/25 23:58 01/28/25 02:19 Sodium Chloride IV 01/28/25 00:27 Infused ONCE ONE Infusion Doxycycline Hyclate 100 mg/ 250 mls @ 166.67 mls/hr 01/27/25 23:58 01/28/25 02:19 Sodium Chloride IV 01/28/25 01:27 Infused ONCE ONE Infusion Lactated Ringer's 1,000 mls @ 999 mls/hr 01/28/25 05:04 01/28/25 07:19 Lr IV 01/28/25 06:04 Infused .Q1H1M ONE Infusion Methylprednisolone Sodium Succinate 60 mg 01/28/25 07:27 01/28/25 08:19 Methylprednisolone Sod Succ 125 Mg/2 Ml Vial IVPUSH 01/28/25 07:28 60 mg ONCE ONE Administration Morphine Sulfate 1 mg 01/29/25 01:21 01/29/25 01:48 Morphine Sulfate 4 Mg/Ml Cartridge IVPUSH 01/29/25 01:22 1 mg ONCE ONE Administration Protocol Medical Decision Making Medical Decision Making [facility] Narrative: Patient presents today with a chief complaint of altered mental status. Differential diagnosis for AMS is incredibly broad and includes infection, intracranial process such as hemorrhage, stroke or mass, electrolyte abnormality, hypercarbia, hypoxia, toxic encephalopathy, among many others. Broad-based workup was initiated to further evaluate the etiology of patient's symptoms based on the above exam and history. Apparently patient's roommate thought that she had taken some kind of drugs but the patient arrives with what looks to be either sedative hypnotic toxidrome versus hypercarbia. Her pupils are pinpoint but her respiratory rate is around 16. Clinically does not favor an opioid overdose. I do not feel that adding Narcan would help this patient at this time. She is chronically on methadone and I think this would only exacerbate her issue. I think likely that her underlying COPD accompanied by some kind of sedative is contributing to her symptoms today. That being said, she is maintaining her own airway. We will add on a VBG to evaluate this further. 00:34 AM 01/28/2025 (Dr. Catalina Gomez, D.O.) initial blood work took quite a bit of time to get back. Her VBG is showing some respiratory acidosis with compensation, likely acute on chronic. Initiated BiPAP 16/6 FiO2 of 30 percent, rate of 20. She remains altered though we will arouse to painful stimuli. X-ray showing some evidence of bibasilar infiltrates. We will treat as pneumonia with Rocephin and doxycycline. Blood pressure remained stable. She is not currently septic. 5:58 AM 01/28/2025 (Dr. Catalina Gomez D.O.) repeat blood gases showing some worsening respiratory acidosis. Increased her IPAP as well as her respiratory rate on the BiPAP. She will need ICU level of care at this time. Alcohol level is negative. Drug screen is flagging for methadone only. Given her end-stage lung disease, I think that intubating would be extremely detrimental, she would have a very difficult time coming off of the vent. We will continue to monitor closely, repeat blood gases hourly and attempts admission to the ICU when a bed is available. 7:12 AM 01/28/2025 (Dr. Catalina Gomez D.O.) patient now mentating more appropriately, alert, opening eyes spontaneously and complaining about the BiPAP. We will repeat her blood gas and see how she is doing and I suspect that her acidosis and hypercarbia we will be improving. Signing out to oncoming provider pending repeat blood gas, ICU bed availability. Differential Diagnosis Differential Diagnoses: The differential diagnosis associated with the presentation includes (As above) Admission/Observation Consideration of admission/observation: Escalation of care including admission/observation considered Lab Data MDM Lab Attestation statement: I reviewed the patient's lab results. 01/29/25 05:14 01/29/25 05:14 Labs: Lab Results 01/27/25 01/28/25 01/28/25 Range/Units 22:05 00:16 00:17 WBC 14.6 H (4.8-10.8) X10*3/uL RBC 4.72 (4.20-5.50) X10*6/uL Hgb 13.1 (12.0-16.0) g/dl Hct 44.6 (37.0-47.0) % MCV 94.5 (80.0-98.0) fL MCH 27.8 (27.0-33.0) pg MCHC 29.4 L (31.0-35.0) g/dl RDW 14.1 (11.0-16.0) % Plt Count 118 L (160-400) X10*3/uL MPV 10.9 (9.4-12.3) fL Immature Gran % (Auto) 0.5 H (0.0-0.4) % Neut % (Auto) 80.1 H (45-73) % Lymph % (Auto) 13.8 L (20-40) % [place] % (Auto) 4.4 (2-11) % Eos % (Auto) 0.8 (0-4) % Baso % (Auto) 0.4 (0-2) % Lymph # (Auto) 2.0 (1.2-4.9) X10*3/uL [place] # (Auto) 0.6 (0.1-1.2) X10*3/uL Eos # (Auto) 0.1 (0.0-0.4) X10*3/uL Baso # (Auto) 0.1 (0.0-0.2) X10*3/uL Abs Immat Gran (auto) 0.07 H (0.00-0.03) X10*3/uL Absolute Neuts (auto) 11.4 H (2.0-8.3) x10*3/uL Absolute Nucleated RBC 0.000 (0.0-0.012) X10*3/uL Nucleated RBC % (auto) 0.0 (0.0-0.2) /100WBC VBG pH (7.32-7.43) VBG pCO2 mmHg VBG pO2 mmHg VBG HCO3 (22-26) mmol/L VBG O2 Saturation % VBG Base Excess mmol/L Sodium (135-145) mmol/L Potassium (3.3-5.1) mmol/L Chloride (96-108) mmol/L Carbon Dioxide (22-29) mmol/L Anion Gap (12-20) BUN (9-16) mg/dL Creatinine (0.5-1.4) mg/dL Estim Creat Clear Calc Estimated GFR Random Glucose (60-115) mg/dL Lactic Acid 0.6 (0.5-2.0) mmol/L Calcium (8.4-10.2) mg/dL Magnesium (1.6-2.6) mg/dL Total Bilirubin (0.0-1.0) mg/dL AST (5-31) U/L ALT (0-31) U/L Alkaline Phosphatase (39-117) U/L Ammonia (13-55) umol/L Troponin I High Sens (<3.5-17.0) ng/L Total Protein (6.5-8.0) g/dL Albumin (3.5-5.0) g/dL TSH (0.32-4.0) uIU/mL Urine Opiates Screen (Not Detect) Ur Buprenorphine Scrn (Not Detect) ng/mL Ur Oxycodone Screen (Not Detect) ng/mL Urine Methadone Screen (Not Detect) ng/mL Urine Fentanyl Screen (Not Detect) Ur Barbiturates Screen (Not Detect) Ur Phencyclidine Scrn (Not Detect) Ur Amphetamines Screen (Not Detect) U Benzodiazepines Scrn (Not Detect) Urine Cocaine Screen (Not Detect) U Marijuana (THC) Screen (Not Detect) Ethyl Alcohol mg/dL COVID-19 (TODD) Negative (Negative) COVID-19 Clin Com See Note Influenza Type A (ANN) Negative (Negative) Influenza Type B (ANN) Negative (Negative) Influenza A & B Note See Note 01/28/25 01/28/25 01/28/25 Range/Units 00:23 00:24 00:43 WBC (4.8-10.8) X10*3/uL RBC (4.20-5.50) X10*6/uL Hgb (12.0-16.0) g/dl Hct (37.0-47.0) % MCV (80.0-98.0) fL MCH (27.0-33.0) pg MCHC (31.0-35.0) g/dl RDW (11.0-16.0) % Plt Count (160-400) X10*3/uL MPV (9.4-12.3) fL Immature Gran % (Auto) (0.0-0.4) % Neut % (Auto) (45-73) % Lymph % (Auto) (20-40) % [place] % (Auto) (2-11) % Eos % (Auto) (0-4) % Baso % (Auto) (0-2) % Lymph # (Auto) (1.2-4.9) X10*3/uL [place] # (Auto) (0.1-1.2) X10*3/uL Eos # (Auto) (0.0-0.4) X10*3/uL Baso # (Auto) (0.0-0.2) X10*3/uL Abs Immat Gran (auto) (0.00-0.03) X10*3/uL Absolute Neuts (auto) (2.0-8.3) x10*3/uL Absolute Nucleated RBC (0.0-0.012) X10*3/uL Nucleated RBC % (auto) (0.0-0.2) /100WBC VBG pH 7.32 (7.32-7.43) VBG pCO2 90 mmHg VBG pO2 48 mmHg VBG HCO3 47 H (22-26) mmol/L VBG O2 Saturation 79.0 % VBG Base Excess 16.1 mmol/L Sodium 141 (135-145) mmol/L Potassium 5.3 H D (3.3-5.1) mmol/L Chloride 94 L (96-108) mmol/L Carbon Dioxide 40 H* D (22-29) mmol/L Anion Gap 12 (12-20) BUN 10 (9-16) mg/dL Creatinine 0.63 (0.5-1.4) mg/dL Estim Creat Clear Calc 104.7 Estimated GFR > 60 Random Glucose 133 H (60-115) mg/dL Lactic Acid (0.5-2.0) mmol/L Calcium 8.9 (8.4-10.2) mg/dL Magnesium 2.3 (1.6-2.6) mg/dL Total Bilirubin 0.5 (0.0-1.0) mg/dL AST 28 (5-31) U/L ALT 12 (0-31) U/L Alkaline Phosphatase 100 (39-117) U/L Ammonia 32 (13-55) umol/L Troponin I High Sens < 2.7 (<3.5-17.0) ng/L Total Protein 7.4 (6.5-8.0) g/dL Albumin 4.2 (3.5-5.0) g/dL TSH 2.06 (0.32-4.0) uIU/mL Urine Opiates Screen Not Detected (Not Detect) Ur Buprenorphine Scrn Not Detected (Not Detect) ng/mL Ur Oxycodone Screen Not Detected (Not Detect) ng/mL Urine Methadone Screen Positive H (Not Detect) ng/mL Urine Fentanyl Screen Not Detected (Not Detect) Ur Barbiturates Screen Not Detected (Not Detect) Ur Phencyclidine Scrn Not Detected (Not Detect) Ur Amphetamines Screen Not Detected (Not Detect) U Benzodiazepines Scrn Not Detected (Not Detect) Urine Cocaine Screen Not Detected (Not Detect) U Marijuana (THC) Screen Not Detected (Not Detect) Ethyl Alcohol < 10 mg/dL COVID-19 (TODD) (Negative) COVID-19 Clin Com Influenza Type A (ANN) (Negative) Influenza Type B (ANN) (Negative) Influenza A & B Note 01/28/25 01/28/25 01/28/25 Range/Units 05:50 07:16 10:52 WBC (4.8-10.8) X10*3/uL RBC (4.20-5.50) X10*6/uL Hgb (12.0-16.0) g/dl Hct (37.0-47.0) % MCV (80.0-98.0) fL MCH (27.0-33.0) pg MCHC (31.0-35.0) g/dl RDW (11.0-16.0) % Plt Count (160-400) X10*3/uL MPV (9.4-12.3) fL Immature Gran % (Auto) (0.0-0.4) % Neut % (Auto) (45-73) % Lymph % (Auto) (20-40) % [place] % (Auto) (2-11) % Eos % (Auto) (0-4) % Baso % (Auto) (0-2) % Lymph # (Auto) (1.2-4.9) X10*3/uL [place] # (Auto) (0.1-1.2) X10*3/uL Eos # (Auto) (0.0-0.4) X10*3/uL Baso # (Auto) (0.0-0.2) X10*3/uL Abs Immat Gran (auto) (0.00-0.03) X10*3/uL Absolute Neuts (auto) (2.0-8.3) x10*3/uL Absolute Nucleated RBC (0.0-0.012) X10*3/uL Nucleated RBC % (auto) (0.0-0.2) /100WBC VBG pH 7.29 L 7.30 L 7.32 (7.32-7.43) VBG pCO2 96 97 84 mmHg VBG pO2 56 37 54 mmHg VBG HCO3 46 H 48 H 44 H (22-26) mmol/L VBG O2 Saturation 84.0 57.0 83.0 % VBG Base Excess 15.3 16.4 13.9 mmol/L Sodium (135-145) mmol/L Potassium (3.3-5.1) mmol/L Chloride (96-108) mmol/L Carbon Dioxide (22-29) mmol/L Anion Gap (12-20) BUN (9-16) mg/dL Creatinine (0.5-1.4) mg/dL Estim Creat Clear Calc Estimated GFR Random Glucose (60-115) mg/dL Lactic Acid (0.5-2.0) mmol/L Calcium (8.4-10.2) mg/dL Magnesium (1.6-2.6) mg/dL Total Bilirubin (0.0-1.0) mg/dL AST (5-31) U/L ALT (0-31) U/L Alkaline Phosphatase (39-117) U/L Ammonia (13-55) umol/L Troponin I High Sens (<3.5-17.0) ng/L Total Protein (6.5-8.0) g/dL Albumin (3.5-5.0) g/dL TSH (0.32-4.0) uIU/mL Urine Opiates Screen (Not Detect) Ur Buprenorphine Scrn (Not Detect) ng/mL Ur Oxycodone Screen (Not Detect) ng/mL Urine Methadone Screen (Not Detect) ng/mL Urine Fentanyl Screen (Not Detect) Ur Barbiturates Screen (Not Detect) Ur Phencyclidine Scrn (Not Detect) Ur Amphetamines Screen (Not Detect) U Benzodiazepines Scrn (Not Detect) Urine Cocaine Screen (Not Detect) U Marijuana (THC) Screen (Not Detect) Ethyl Alcohol mg/dL COVID-19 (TODD) (Negative) COVID-19 Clin Com Influenza Type A (ANN) (Negative) Influenza Type B (ANN) (Negative) Influenza A & B Note ABG Data Attestation ABG: I personally reviewed and interpreted this ABG as follows: Interpretation: Acute on chronic respiratory acidosis with superimposed metabolic acidosis Independent Interpretation I performed an independent interpretation of an: EKG Radiology Impression Discussion of test interpretation with radiology: I have reviewed the radiologist's reading. Radiologist Impression: 1 view chest x-ray Comparison: Chest x-ray from 09/09/2024 Findings: New pulmonary lobe pulmonary opacities nonspecific and may reflect pneumonitis/pneumonia given basilar predominance. Mild edema or superimposed edema also considered. Mild cardiomegaly redemonstrated accentuated by AP technique. Small left pleural effusion suggested. No pneumothorax in this portable image. Degenerative changes include imaged AC joints. IMPRESSION: New bibasilar pulmonary opacities concerning for pneumonitis/pneumonia. Recommend attention on follow-up to ensure resolution. Independent Historian Clinical information obtained from an independent historian. History obtained from or confirmed by: EMS External Record Review External record reviewed: Inpatient record Chronic Conditions Patient?s care impacted by: Diabetes, Hypertension and Other (Oxygen-dependent COPD) Social Determinants Patient?s care significantly limited by Social Determinants of Health including: Other Social Determinant of Health Critical Care Time Critical Care Time Critical Care Time: Yes Total Critical Care Time: 55 Attestation: CRITICAL CARE TIME: 55 minutes of critical care time was spent in direct patient care at the bedside or in the immediate area with this patient. Critical care was necessary to treat or prevent imminent or life-threatening deterioration of the following conditions acute hypercapnic respiratory failure due to COPD exacerbation, altered mental status likely toxic versus metabolic encephalopathy. This patient is high risk for decompensation and/or . This time was spent assessing and managing the patient, interpreting labs and imaging, coordinating care with other medical providers, gathering history from either the patient, their representatives, EMS or chart review, and discussing management with ICU. Discharge Plan Discharge Clinical Impression: Acute hypercapnic respiratory failure, Acute metabolic encephalopathy, Community acquired bilateral lower lobe pneumonia Patient Disposition: Admitted As Inpatient Interventions: Admission Worksheet (ED) Last Done: 01/28/25 11:58 Discharge Date/Time: 01/28/25 12:11
--- NOTE | 2025-01-28 07:16 | PC.NURSE ---
This RN resumed care of patient at 0700, pt was remains on Bipap at this time, Pt was attempting to blow her nose, pt mask removed by this RN, oral care and nasal care provided, pt started to perk up at this time, MD at bedside, vitals obtained, O2 remains 88-91% on the 35% FiO2. Pt able to ask for cellphone, helped to be sat up in bed at this time. Pt lungs remain rhales in all lobes. Bilat IVs flushing well. Repeat VBG obtained at this time. Call may within reach.
[2025-01-28 07:18] LABS: Venous Blood Gas Refer to POC result
[2025-01-28 07:19] LABS: VBG HCO3 48 mmol/L (22-26); VBG O2 % Saturation 57.0 %
[2025-01-28 10:59] LABS: Venous Blood Gas Refer to POC result
[2025-01-28 11:00] LABS: VBG HCO3 44 mmol/L (22-26); VBG O2 % Saturation 83.0 %
--- NOTE | 2025-01-28 11:44 | PC.NURSE ---
Received patient from BRIANNA Maria. Pt awake and alert, resting in bed. Remains with BiPAP; settings of 20-6 with 35% FiO2. SPO2 89-92%. Other vitals stable, on full monitoring and evaluation advisor. Pt reports improvement in breathing status. Awaiting ICU admit.
--- NOTE | 2025-01-28 11:57 | PC.NURSE ---
Nurse to nurse given to BRIANNA Sullivan. Pt to go to room 252.
--- NOTE | 2025-01-28 14:06 | MHC.CM.PN ---
Pt presents to ICU w/respiratory failure on NIPPV with a hx of end stage respiratory dz. Pt resides w/significant other and has [employer] for locked med box management. Her dtr is her HCP and assists at times w/transportation. Pt will need BLS transport to home: D/C plan will be reviewed once pt is more clinically stable.
--- NOTE | 2025-01-28 15:07 | PC.NURSE ---
Patient gets Methadone from [facility] on [address] in [place], called clinic and spoke with Autumn RN, per Autumn patient takes Methadone 56mg, unable to verify last dose. Per Autumn patient's methadone is being picked up by [facility] Patient home health agency: [facility] at [address] [place] [address] in [place] [phone]. Called [facility] and spoke with Jeanie, left message asking for call back for the last Methadone dose.
--- NOTE | 2025-01-28 15:28 | PHA.MEDREC ---
Pharmacy Consult ? Medication Reconciliation Pharmacy has completed the medication reconciliation. Spoke to patient at bedside with help for block sealer services. She was a little confused but could tell us most of her medications. She did not remember Sertraline, but has a recent fill for both the 100mg and 25mg for a total dose of 125mg.
--- NOTE | 2025-01-28 15:53 | P.HPCC_ITS ---
History of Present Illness Date of Service: 01/28/25 Chief Complaint: Acute on chronic hypoxic and hypercapnic respiratory failure 59-year-old lady with underlying COPD on 4-6 L of supplemental oxygen, hep C, hypertension, hypothyroidism, substance abuse on methadone presented complaining of shortness of breath. On ER evaluation patient with acute on chronic hypoxic and hypercapnic respiratory failure initially requiring BiPAP support, admitted to the intensive care unit. Review of Systems 2 Constitutional: Constitutional: Denies daytime sleepiness, Denies excessive sweating, Denies fatigue, Denies fever(s), Denies lethargy, Denies malaise, Denies night sweats, Denies snoring and Denies weight loss Eyes: Eyes: Denies blurry vision and Denies itchy eyes ENT: Denies nasal congestion, Denies post nasal drip, Denies sinus pain, Denies sinus pressure and Denies other ( Thrush) Cardiovascular: Cardiovascular: Denies chest pain, Denies pedal edema, Denies dyspnea, Reports dyspnea on exertion, Denies orthopnea and Denies paroxysmal nocturnal dyspnea Respiratory: Respiratory: Denies cough, Denies hemoptysis, Denies excessive phlegm production, Denies dyspnea, Reports dyspnea on exertion, Denies snoring and Denies wheezing Gastrointestinal: Gastrointestinal: Denies abdominal pain and Denies heartburn Musculoskeletal: Musculoskeletal: Denies myalgias, Denies arthralgias and Denies joint swelling Integumentary/Breasts: Skin/Breast: Denies rash Neurologic: Denies memory loss and Denies seizure-like activity Psychiatric: Psychiatric: Denies abnormal sleep pattern, Denies anxiety and Denies memory loss Endocrine: Endocrine: Denies excessive sweating, Denies fatigue and Denies heat intolerance Hematologic/Lymphatic: Hematologic/Lymphatic: Denies easy bruising Allergic/Immunologic: Allergic/Immunologic: Denies itchy eyes, Denies seasonal rhinorrhea and Denies wheezing PMFSH Past Medical History Medical History (Updated 01/28/25 @ 15:55 by Miki Johnson MD) Diabetes type 2 COPD (chronic obstructive pulmonary disease) Alcoholic cirrhosis Chronic respiratory failure Opioid use disorder, moderate, in sustained remission Opiate abuse, continuous Diabetes Nausea and vomiting COVID Community acquired pneumonia Colon cancer screening COPD (chronic obstructive pulmonary disease) Methadone dependence Hepatitis C Pulmonary edema Polysubstance abuse Hypertension Acute and chronic respiratory failure Hypotension Respiratory failure Acute respiratory failure, unspecified whether with hypoxia or hypercapnia Hyperlipidemia Psychosis Hypoxia Acute exacerbation of chronic obstructive airways disease HTN (hypertension) Hypothyroid Family History Family History Father HTN (hypertension) Mother Gastritis Ovarian cancer Arthritis Son Thyroid disease Other Hypothyroid Social History Social History Household Members: Other Household Members Other:: 1 Housing: Apartment Do you presently have visiting nurse or other home services: Yes ([facility]) Unable to assess alcohol history related to: Unable to respond Alcohol intake: current Alcohol intake frequency: does not drink Comment: refuses bed alarm at times Patient Tobacco Use Status: Current everyday Tobacco user Tobacco use type: Cigarette Cigarette Packs Per Day: 1 Cigarettes Per Day: 10 Years Smoked: 30 e-Cigarette/Vaping Use: Never Used Second Hand Smoke Exposure: No Substance Use Type: Heroin Advance Directives: Yes Advance Directives on File: Yes Advance Directives Date on File: 08/18/23 Do you have a plan to hurt others: No Plan Nutrition Risks: No Nutritional Risk Patient : No : No Poor oral hygiene: No service: No Current occupational status: unemployed Meds Allergies Allergy/AdvReac Type Severity Reaction Status Date / Time Penicillins (PENICILLINS) Allergy Unknown RED ITCHY Verified 01/27/25 22:02 RASH SEAFOOD Allergy Unknown FEVER Uncoded 01/27/25 22:02 SWELLING Active Medications: Current Medications Amlodipine Besylate (Amlodipine Besylate 5 Mg Tablet) 5 mg PO DAILY@1200 [facility]; Protocol Fluticasone/Vilanterol (Fluticasone/Vilanterol 200/25 Blst.W.Dev) 1 puff INHALE DAILY [facility] Furosemide (Furosemide 20 Mg Tablet) 20 mg PO BID [facility]; Protocol Heparin Sodium (Porcine) (Heparin Sodium,Porcine 5,000 Unit/Ml Vial) 5,000 unit SUBCUT Q8H [facility] Last Admin: 01/28/25 11:41 Dose: 5,000 unit Levothyroxine Sodium (Levothyroxine Sodium 200 Mcg Tablet) 200 mcg PO DAILY@0600 [facility] Perphenazine (Perphenazine 4 Mg Tablet) 4 mg PO BEDTIME [facility] Home Medications ?Medication ?Instructions ?Recorded ?Confirmed ?Last Taken ?Type perphenazine 4 mg tablet 4 mg PO BEDTIME 09/24/2106/1901/27/25 History levothyroxine 200 mcg tablet 200 mcg PO DAILY@0600 10/1701/28/25 01/27/25 History umeclidinium 62.5 mcg/actuation 1 inh inhalation DAILY 10/01/22 01/28/25 01/27/25 History blister powder for inhalation (Incruse Ellipta) ipratropium 0.5 mg-albuterol 3 mg 3 ml inhalation QID PRN wheezing 04/20/23 01/28/25 01/27/25 History (2.5 mg base)/3 mL nebulization soln sertraline 100 mg tablet 100 mg PO DAILY@1200 4 01/28/25 01/27/25 History furosemide 20 mg tablet 20 mg PO BID 08/16/2301/27/25 History amlodipine 10 mg tablet 5 mg PO DAILY@1200 09/03/23 01/28/25 01/27/25 History albuterol sulfate 90 mcg/actuation 2 puff inhalation Q 6H PRN wheezing 10/06/23 01/28/25 01/27/25 History aerosol inhaler (Ventolin HFA) acetaminophen 500 mg tablet 1,000 mg PO Q8H PRN modera te pain 12/08/23 01/28/25 01/27/25 History methadone 10 mg/mL oral concentrate 56 mg PO DAILY 02/1809/10/24 09/09/24 History metformin 500 mg tablet,extended 500 mg PO BID 5 01/28/25 01/27/25 History release 24 hr rosuvastatin 20 mg tablet 20 mg PO DAILY 04/02/2406/1901/27/25 History cetirizine 10 mg tablet 5 mg PO DAILY 09/10/2401/2801/27/25 History hydroxyzine pamoate 25 mg capsule 25 mg PO BEDTIME ins omnia 09/10/24 01/28/25 01/27/25 History celecoxib 100 mg capsule 100 mg PO BID mild pain 06/1901/28/25 01/27/25 History lidocaine 5 % topical patch 1 patch topical DAILY PRN Pain 01/28/25 01/28/25 01/27/25 History sertraline 25 mg tablet 25 mg PO DAILY 01/28/2506/1901/27/25 History Physical Exam 2 Vital Signs: Vital Signs: Last Vital Signs Temp 98 F 01/28/25 11:00 Pulse 97 01/28/25 15:00 Resp 12 01/28/25 15:00 BP 151/90 H 01/28/25 15:00 Pulse Ox 91 L 01/28/25 14:00 O2 Del Method BiPAP 01/28/25 15:00 FiO2 35 01/28/25 15:00 Oxygen Flow Rate 2 01/28/25 01:51 BMI result Body Mass Index 29.0 Const: General: no acute distress, alert and awake Eyes: Sclerae: sclerae normal EOM: EOMs intact bilaterally Neck: Neck: Yes no lymphadenopathy, Yes trachea midline and Yes supple Resp: Effort & Inspection: normal respiratory effort and no respiratory distress Auscultation: wheezes (Mild expiratory) Cardio: Rate: regular rate Rhythm: regular rhythm Heart sounds: no gallops, no murmurs and no rubs GI: Palpation (GI): Soft to palpation and Other GI palpation findings present ( Nontender) Auscultation: normal bowel sounds Extrem: General: Yes no pedal edema, No clubbing and No cyanosis Results Labs 01/28/25 00:17 01/28/25 00:43 Labs: Laboratory Results - last 24 hr 01/27/25 01/28/25 01/28/25 22:05 00:16 00:17 MCV 94.5 MCH 27.8 MCHC 29.4 L RDW 14.1 Plt Count 118 L MPV 10.9 Immature Gran % (Auto) 0.5 H Neut % (Auto) 80.1 H Lymph % (Auto) 13.8 L [place] % (Auto) 4.4 Eos % (Auto) 0.8 Baso % (Auto) 0.4 Lymph # (Auto) 2.0 [place] # (Auto) 0.6 Eos # (Auto) 0.1 Baso # (Auto) 0.1 Abs Immat Gran (auto) 0.07 H Absolute Neuts (auto) 11.4 H Absolute Nucleated RBC 0.000 Nucleated RBC % (auto) 0.0 VBG pH VBG pCO2 VBG pO2 VBG HCO3 VBG O2 Saturation VBG Base Excess Anion Gap Estim Creat Clear Calc Estimated GFR Random Glucose Lactic Acid 0.6 Calcium Magnesium Total Bilirubin AST ALT Alkaline Phosphatase Ammonia Troponin I High Sens Total Protein Albumin TSH Urine Opiates Screen Ur Buprenorphine Scrn Ur Oxycodone Screen Urine Methadone Screen Urine Fentanyl Screen Ur Barbiturates Screen Ur Phencyclidine Scrn Ur Amphetamines Screen U Benzodiazepines Scrn Urine Cocaine Screen U Marijuana (THC) Screen Ethyl Alcohol COVID-19 (TODD) Negative COVID-19 Clin Com See Note Influenza Type A (ANN) Negative Influenza Type B (ANN) Negative Influenza A & B Note See Note 01/28/25 01/28/25 01/28/25 00:23 00:24 00:43 MCV MCH MCHC RDW Plt Count MPV Immature Gran % (Auto) Neut % (Auto) Lymph % (Auto) [place] % (Auto) Eos % (Auto) Baso % (Auto) Lymph # (Auto) [place] # (Auto) Eos # (Auto) Baso # (Auto) Abs Immat Gran (auto) Absolute Neuts (auto) Absolute Nucleated RBC Nucleated RBC % (auto) VBG pH 7.32 VBG pCO2 90 VBG pO2 48 VBG HCO3 47 H VBG O2 Saturation 79.0 VBG Base Excess 16.1 Anion Gap 12 Estim Creat Clear Calc 104.7 Estimated GFR > 60 Random Glucose 133 H Lactic Acid Calcium 8.9 Magnesium 2.3 Total Bilirubin 0.5 AST 28 ALT 12 Alkaline Phosphatase 100 Ammonia 32 Troponin I High Sens < 2.7 Total Protein 7.4 Albumin 4.2 TSH 2.06 Urine Opiates Screen Not Detected Ur Buprenorphine Scrn Not Detected Ur Oxycodone Screen Not Detected Urine Methadone Screen Positive H Urine Fentanyl Screen Not Detected Ur Barbiturates Screen Not Detected Ur Phencyclidine Scrn Not Detected Ur Amphetamines Screen Not Detected U Benzodiazepines Scrn Not Detected Urine Cocaine Screen Not Detected U Marijuana (THC) Screen Not Detected Ethyl Alcohol < 10 COVID-19 (TODD) COVID-19 Clin Com Influenza Type A (ANN) Influenza Type B (ANN) Influenza A & B Note 01/28/25 01/28/25 01/28/25 05:50 07:16 10:52 MCV MCH MCHC RDW Plt Count MPV Immature Gran % (Auto) Neut % (Auto) Lymph % (Auto) [place] % (Auto) Eos % (Auto) Baso % (Auto) Lymph # (Auto) [place] # (Auto) Eos # (Auto) Baso # (Auto) Abs Immat Gran (auto) Absolute Neuts (auto) Absolute Nucleated RBC Nucleated RBC % (auto) VBG pH 7.29 L 7.30 L 7.32 VBG pCO2 96 97 84 VBG pO2 56 37 54 VBG HCO3 46 H 48 H 44 H VBG O2 Saturation 84.0 57.0 83.0 VBG Base Excess 15.3 16.4 13.9 Anion Gap Estim Creat Clear Calc Estimated GFR Random Glucose Lactic Acid Calcium Magnesium Total Bilirubin AST ALT Alkaline Phosphatase Ammonia Troponin I High Sens Total Protein Albumin TSH Urine Opiates Screen Ur Buprenorphine Scrn Ur Oxycodone Screen Urine Methadone Screen Urine Fentanyl Screen Ur Barbiturates Screen Ur Phencyclidine Scrn Ur Amphetamines Screen U Benzodiazepines Scrn Urine Cocaine Screen U Marijuana (THC) Screen Ethyl Alcohol COVID-19 (TODD) COVID-19 Clin Com Influenza Type A (ANN) Influenza Type B (ANN) Influenza A & B Note Assessment and Plan (1) Acute hypercapnic respiratory failure: Status: Acute (2) CO2 retention: Status: Acute (3) COPD (chronic obstructive pulmonary disease): Status: Acute (4) Hypothyroid: Status: Acute (5) Diabetes type 2: Qualifiers: Diabetes mellitus fpc insulin use: without terminal make up operator use Diabetes mellitus complication status: with other specified complication Qualified Code(s): E11.69 - Type 2 diabetes mellitus with other specified complication Status: Acute Plan Assessment: 59-year-old lady with underlying advanced COPD on 4-6 L of supplemental oxygen and CO2 retention admitted with acute chronic hypoxic and hypercapnic respiratory failure initially requiring BiPAP support. Plan: Neuro: No acute issues. Cardiac: No acute issues. Pulmonary: Acute on chronic hypoxic and hypercapnic respiratory failure initially requiring BiPAP support, continue to titrate off as tolerated. Continue nebulized bronchodilators. Renal: No acute issues. Endo: No acute issues. Subcutaneous insulin protocol for underlying diabetes mellitus. GI: No acute issues. ID: No acute issues Heme/Onc: No acute issues. Psych: Underlying history of psychosis/schizophrenia, continue home perphenazine. Miscellaneous: No acute issues. Prophylaxis: Heparin Diet: Regular
[2025-01-28 16:25] LABS: MANUAL DIFF FLAG NO
[2025-01-28 16:31] LABS: VBG HCO3 42 mmol/L (22-26); VBG O2 % Saturation 96.0 %
[2025-01-28 16:33] LABS: Venous Blood Gas Refer to POC result
[2025-01-28 16:37] LABS: Hematocrit 42.5 % (37.0-47.0); Hemoglobin 12.6 g/dl (12.0-16.0); Imm Gran Abs Auto 0.06 X10*3/uL (0.00-0.03); Imm Gran Pct Auto 0.6 % (0.0-0.4); Lymphocytes Absolute Auto 1.3 X10*3/uL (1.2-4.9); Mean Corpuscular HGB Conc 29.6 g/dl (31.0-35.0); Mean Corpuscular Hemoglobin 27.8 pg (27.0-33.0); Mean Corpuscular Volume 93.8 fL (80.0-98.0); NRBC Abs Auto 0.000 X10*3/uL (0.0-0.012); NRBC Pct Auto 0.0 /100WBC (0.0-0.2); Platelet Count 98 X10*3/uL (160-400); Red Blood Count 4.53 X10*6/uL (4.20-5.50); White Blood Count 10.8 X10*3/uL (4.8-10.8)
[2025-01-28 16:45] LABS: Anion Gap 8 (12-20); Blood Urea Nitrogen 11 mg/dL (9-16); Calcium 8.9 mg/dL (8.4-10.2); Carbon Dioxide 36 mmol/L (22-29); Chloride 99 mmol/L (96-108); Creatinine Clr Calc Pharmacy 119.9; Estimated Glomerular Filt Rate > 60; Potassium 3.9 mmol/L (3.3-5.1); Sodium 139 mmol/L (135-145)
--- NOTE | 2025-01-28 17:32 | PC.NURSE ---
Per patient, ok to speak to son Brant [phone]
[2025-01-28] MEDS: Albuterol/Iprat 2.5/0.5MG 3 ML AMPUL.NEB INHALE (19:56)
[2025-01-29] VITALS (25 sets, daily range): BP systolic 116–149; BP diastolic 64–97; PULSE 82–104; RESP 12–82; TEMP 36.1–37.1; O2SAT 85–96; BMI 29.0
[2025-01-29 05:26] LABS: VBG HCO3 40 mmol/L (22-26); VBG O2 % Saturation 93.0 %
[2025-01-29 05:27] LABS: Venous Blood Gas Refer to POC result
[2025-01-29 05:35] LABS: MANUAL DIFF FLAG NO
--- NOTE | 2025-01-29 05:40 | PC.NURSE ---
assumed care 1900 pt a&O x4, sr on tele nc @ 6 L baseline home 02, on bipap at 2300 by RT off at 0100 requesting break from bipap okay per rubber and pounder, c/o back pain 1mg morphine for pain, 0500 vbg worsening back on bipap per rubber and pounder will recheck vbg at 0800. plan of care continues. pt repo self in bed. rings for commode as needed.
[2025-01-29 05:49] LABS: Hematocrit 45.4 % (37.0-47.0); Hemoglobin 13.6 g/dl (12.0-16.0); Imm Gran Abs Auto 0.04 X10*3/uL (0.00-0.03); Imm Gran Pct Auto 0.5 % (0.0-0.4); Lymphocytes Absolute Auto 2.2 X10*3/uL (1.2-4.9); Mean Corpuscular HGB Conc 30.0 g/dl (31.0-35.0); Mean Corpuscular Hemoglobin 27.8 pg (27.0-33.0); Mean Corpuscular Volume 92.8 fL (80.0-98.0); NRBC Abs Auto 0.000 X10*3/uL (0.0-0.012); NRBC Pct Auto 0.0 /100WBC (0.0-0.2); Platelet Count 122 X10*3/uL (160-400); Red Blood Count 4.89 X10*6/uL (4.20-5.50); White Blood Count 8.4 X10*3/uL (4.8-10.8)
[2025-01-29 05:56] LABS: Albumin Level 3.8 g/dL (3.5-5.0); Anion Gap 10 (12-20); Blood Urea Nitrogen 16 mg/dL (9-16); Calcium 8.8 mg/dL (8.4-10.2); Carbon Dioxide 36 mmol/L (22-29); Chloride 100 mmol/L (96-108); Creatinine Clr Calc Pharmacy 95.6; Estimated Glomerular Filt Rate > 60; Magnesium 2.4 mg/dL (1.6-2.6); Potassium 3.6 mmol/L (3.3-5.1); Sodium 142 mmol/L (135-145)
[2025-01-29 08:15] LABS: VBG HCO3 40 mmol/L (22-26); VBG O2 % Saturation 93.0 %
[2025-01-29] MEDS: Albuterol/Iprat 2.5/0.5MG 3 ML AMPUL.NEB INHALE ×3 (08:19→19:16)
[2025-01-29 08:41] LABS: Venous Blood Gas Refer to POC result
[2025-01-29] MEDS: Potassium Chloride Packet 20 MEQ PACKET 40 MEQ PO (09:21)
--- NOTE | 2025-01-29 09:22 | P.CDIM_ITS ---
PROVIDER RESPONSE TEXT: To clarify, the appropriate diagnosis supported by the clinical indicators: Diagnosis was ruled out QUERY TEXT: PHYSICIAN'S DOCUMENTATION REQUEST Date of Query: 01/29/2025 08:23 AM EST Patient Name: Sandra Rose Admit Date: 01/28/2025 Dear Miki Johnson MD, A review of the medical record indicates additional documentation may be needed. Please review below and update the documentation accordingly. Clinical Indicators: ED 01/28/2025 - Clinical impression: Community acquired bilateral lower lobe pneumonia. Xray - Impression: New bibasilar pulmonary opacities concerning for pneumonitis/pneumonia. ICU H&P - Dyspnea on exertion, underlying COPD on 4-6 L of supplemental oxygen. Admitted with acute on chronic hypoxic and hypercapnic respiratory failure initially requiring BIPAP support. The diagnosis of Pneumonia was documented on 01/28/25 but is not consistently noted in subsequent documentation. Please clarify the following: Diagnosis was present on admission and is now resolved Diagnosis was present on admission and is still being monitored, evaluated, or treated Diagnosis was ruled out Diagnosis is still a likely, suspected, probable diagnosis Other (explain) Clinically unable to determine (explain) Thank you, Naomi Alcala, CCS, CDIS Use of terms such as suspected, likely, concern for, or probable (associated with a specific diagnosis that is being evaluated, monitored, or treated as if it exists) are acceptable and can be coded in the inpatient setting, when documented at the time of discharge. Please use your independent medical judgment in providing your response. THIS QUERY IS PART OF THE PERMANENT MEDICAL RECORD
--- NOTE | 2025-01-29 09:36 | P.PNCC_ITS ---
Subjective Subjective Date of Service: 01/29/25 Interval History: 59-year-old lady with underlying COPD on 4-6 L of supplemental oxygen, hep C, hypertension, hypothyroidism, substance abuse on methadone presented complaining of shortness of breath. On ER evaluation patient with acute on chronic hypoxic and hypercapnic respiratory failure initially requiring BiPAP support, admitted to the intensive care unit. No events overnight. Titrated off BiPAP support. Critical Care Time (minutes): 0 Physical Exam 2 Vital Signs: Vital Signs: Last Vital Signs Temp 97.3 F 01/29/25 09:00 Pulse 95 01/29/25 09:00 Resp 16 01/29/25 09:00 BP 132/67 01/29/25 09:00 Pulse Ox 90 L 01/29/25 09:00 O2 Del Method BiPAP 01/29/25 09:00 O2 Flow Rate 35 01/29/25 09:00 FiO2 35 01/29/25 08:00 Oxygen Flow Rate 2 01/28/25 01:51 BMI result Body Mass Index 29.0 Const: General: no acute distress, alert and awake Eyes: Sclerae: sclerae normal EOM: EOMs intact bilaterally Neck: Neck: Yes no lymphadenopathy, Yes trachea midline and Yes supple Resp: Effort & Inspection: normal respiratory effort and no respiratory distress Auscultation: clear to auscultation bilaterally Cardio: Rate: regular rate Rhythm: regular rhythm Heart sounds: no gallops, no murmurs and no rubs GI: Palpation (GI): Soft to palpation and Other GI palpation findings present ( Nontender) Auscultation: normal bowel sounds Extrem: General: Yes no pedal edema, No clubbing and No cyanosis Objective Data Labs 01/29/25 05:14 01/29/25 05:14 Labs: Laboratory Results - last 24 hr 01/28/25 01/28/25 01/28/25 10:52 16:20 16:25 WBC 10.8 RBC 4.53 Hgb 12.6 Hct 42.5 MCV 93.8 MCH 27.8 MCHC 29.6 L RDW 14.2 Plt Count 98 L MPV 11.9 Immature Gran % (Auto) 0.6 H Neut % (Auto) 86.7 H Lymph % (Auto) 11.7 L [place] % (Auto) 0.7 L Eos % (Auto) 0.0 Baso % (Auto) 0.3 Lymph # (Auto) 1.3 [place] # (Auto) 0.1 Eos # (Auto) 0.0 Baso # (Auto) 0.0 Abs Immat Gran (auto) 0.06 H Absolute Neuts (auto) 9.3 H Absolute Nucleated RBC 0.000 Nucleated RBC % (auto) 0.0 VBG pH 7.32 7.36 VBG pCO2 84 73 VBG pO2 54 73 VBG HCO3 44 H 42 H VBG O2 Saturation 83.0 96.0 VBG Base Excess 13.9 13.2 Sodium 139 Potassium 3.9 D Chloride 99 Carbon Dioxide 36 H Anion Gap 8 L BUN 11 Creatinine 0.55 Estim Creat Clear Calc 119.9 Estimated GFR > 60 Random Glucose 152 H Calcium 8.9 Phosphorus Magnesium Albumin 01/29/25 01/29/25 01/29/25 05:14 05:22 08:11 WBC 8.4 RBC 4.89 Hgb 13.6 Hct 45.4 MCV 92.8 MCH 27.8 MCHC 30.0 L RDW 14.4 Plt Count 122 L MPV 12.6 H Immature Gran % (Auto) 0.5 H Neut % (Auto) 64.2 Lymph % (Auto) 26.3 [place] % (Auto) 7.4 Eos % (Auto) 1.2 Baso % (Auto) 0.4 Lymph # (Auto) 2.2 [place] # (Auto) 0.6 Eos # (Auto) 0.1 Baso # (Auto) 0.0 Abs Immat Gran (auto) 0.04 H Absolute Neuts (auto) 5.4 Absolute Nucleated RBC 0.000 Nucleated RBC % (auto) 0.0 VBG pH 7.28 L 7.32 VBG pCO2 83 76 VBG pO2 71 74 VBG HCO3 40 H 40 H VBG O2 Saturation 93.0 93.0 VBG Base Excess 9.6 10.9 Sodium 142 Potassium 3.6 Chloride 100 Carbon Dioxide 36 H Anion Gap 10 L BUN 16 Creatinine 0.69 Estim Creat Clear Calc 95.6 Estimated GFR > 60 Random Glucose 129 H Calcium 8.8 Phosphorus 2.8 Magnesium 2.4 Albumin 3.8 Microbiology Microbiology Results: Microbiology 01/28/25 00:17 Blood - Venous Blood Culture - Preliminary No growth after 24 hours. 01/28/25 00:15 Blood - Venous Blood Culture - Preliminary No growth after 24 hours. Progress Note: A&P Assessment and plan (1) Diabetes type 2: Status: Acute (2) Hypothyroid: Status: Acute (3) CO2 retention: Status: Acute (4) COPD (chronic obstructive pulmonary disease): Status: Acute (5) Acute hypercapnic respiratory failure: Status: Acute Plan Assessment: 59-year-old lady with underlying advanced COPD on 4-6 L of supplemental oxygen and CO2 retention admitted with acute chronic hypoxic and hypercapnic respiratory failure initially requiring BiPAP support. Plan: Neuro: No acute issues. Cardiac: No acute issues. Pulmonary: Acute on chronic hypoxic and hypercapnic respiratory failure initially requiring BiPAP support, now titrated off daytime BiPAP support. Continue nebulized bronchodilators. Continue acetazolamide. Renal: No acute issues. Endo: No acute issues. Subcutaneous insulin protocol for underlying diabetes mellitus. GI: No acute issues. ID: No acute issues Heme/Onc: No acute issues. Psych: Underlying history of psychosis/schizophrenia, continue home perphenazine. Miscellaneous: No acute issues. Prophylaxis: Heparin Diet: Regular Quality Stroke Does the patient have a stroke diagnosis?: No VTE Prior VTE?: No VTE Risk Level:: Medical - moderate - high VTE Device Contraindication: Treatment Not Indicated VTE Drug Contraindication: N/A - Med Ordered
--- NOTE | 2025-01-29 10:20 | PC.NURSE ---
Assume Care @ 0700? ?Alert & Oriented. On 4L-6L NC, expiratory Wheezing. Sinus Rhythm on tele Voiding at bedside commode. Skin: Intact Plan: Transfer to [facility] . No longer requiring ICU-level care.
[2025-01-29] MEDS: Fluticasone/Vilanterol 200/25 BLST.W.DEV 1 PUFF INHALE (11:31)
--- NOTE | 2025-01-29 11:34 | PC.RT ---
RT found pt off bipap, time of transition to nasal cannula not known, RT unaware. Pt noted 7.32 with pco2 of 76 @ 08:09.
[2025-01-29 11:35] LABS: Glucose, Whole Blood 174 mg/dL (60-115)
--- NOTE | 2025-01-29 16:05 | PC.NURSE ---
This RN called [facility]. Cait from call center picked up phone and left message to home care agent. Provided [facility] phone number and extension to call back.
[2025-01-29 16:22] LABS: Glucose, Whole Blood 159 mg/dL (60-115)
--- NOTE | 2025-01-29 16:38 | HE.PHANOTE ---
METHADONE CONFIRMATION SHEET PATIENT TAKES 56 MG FROM [facility]. LAST DOSE 01/27 930
[2025-01-29 20:31] LABS: Glucose, Whole Blood 123 mg/dL (60-115)
[2025-01-30] VITALS (10 sets, daily range): BP systolic 106–131; BP diastolic 58–84; PULSE 66–101; RESP 16–20; TEMP 36.1–36.6; O2SAT 86–93
[2025-01-30 06:14] LABS: Venous Blood Gas Refer to POC result
[2025-01-30 06:16] LABS: VBG HCO3 36 mmol/L (22-26); VBG O2 % Saturation 96.0 %
[2025-01-30 07:05] LABS: MANUAL DIFF FLAG NO
[2025-01-30 07:08] LABS: Hematocrit 45.5 % (37.0-47.0); Hemoglobin 13.5 g/dl (12.0-16.0); Imm Gran Abs Auto 0.03 X10*3/uL (0.00-0.03); Imm Gran Pct Auto 0.5 % (0.0-0.4); Lymphocytes Absolute Auto 2.4 X10*3/uL (1.2-4.9); Mean Corpuscular HGB Conc 29.7 g/dl (31.0-35.0); Mean Corpuscular Hemoglobin 27.7 pg (27.0-33.0); Mean Corpuscular Volume 93.2 fL (80.0-98.0); NRBC Abs Auto 0.000 X10*3/uL (0.0-0.012); NRBC Pct Auto 0.0 /100WBC (0.0-0.2); Platelet Count 137 X10*3/uL (160-400); Red Blood Count 4.88 X10*6/uL (4.20-5.50); White Blood Count 6.3 X10*3/uL (4.8-10.8)
[2025-01-30 07:26] LABS: Albumin Level 4.0 g/dL (3.5-5.0); Anion Gap 12 (12-20); Blood Urea Nitrogen 16 mg/dL (9-16); Calcium 8.7 mg/dL (8.4-10.2); Carbon Dioxide 33 mmol/L (22-29); Chloride 103 mmol/L (96-108); Creatinine Clr Calc Pharmacy 104.7; Estimated Glomerular Filt Rate > 60; Magnesium 2.3 mg/dL (1.6-2.6); Potassium 4.0 mmol/L (3.3-5.1); Sodium 144 mmol/L (135-145)
[2025-01-30 07:34] LABS: Glucose, Whole Blood 131 mg/dL (60-115)
[2025-01-30] MEDS: Albuterol/Iprat 2.5/0.5MG 3 ML AMPUL.NEB INHALE ×3 (07:38→20:32)
[2025-01-30] MEDS: Fluticasone/Vilanterol 200/25 BLST.W.DEV 1 PUFF INHALE (08:06)
[2025-01-30] MEDS: methADONE HCl 20 MG/2 ML ORAL.CONC 56 MG PO (08:32)
--- NOTE | 2025-01-30 10:13 | MHC.CM.PN ---
Per ROUNDS discussion, Patient is not yet medically cleared for dc (ICU downgrade); home/resume services is the tentative plan and CM will continue to follow.
--- NOTE | 2025-01-30 10:16 | P.PNIM_ITS ---
Subjective Subjective Date of Service: 01/30/25 Interval History: f/u on copd exacerbation, post ICU for bipap use has rib pain with cough and coughing with yellow sputum Physical Exam 2 Vital Signs: Vital Signs: Last Vital Signs Temp 97.9 F 01/30/25 07:33 Pulse 96 01/30/25 07:39 Resp 20 01/30/25 07:39 BP 130/76 01/30/25 07:33 Pulse Ox 92 01/30/25 07:33 O2 Del Method Nasal Cannula 01/30/25 07:33 O2 Flow Rate 2 01/30/25 07:33 FiO2 35 01/29/25 08:00 Oxygen Flow Rate 2 01/28/25 01:51 BMI result Body Mass Index 29.0 Objective Data Active Medications Acetazolamide (Acetazolamide Sodium 500 Mg Vial) 500 mg IVPUSH BID [facility] Stop: 01/31/25 21:01 Last Admin: 01/30/25 08:31 Dose: 500 mg Documented By: LIO Albuterol/Ipratropium (Albuterol/Iprat 2.5/0.5mg 3 Ml Ampul.Neb) 3 ml INHALE RQ6H WHILE AWAKE [facility] Last Admin: 01/30/25 07:38 Dose: 3 ml Documented By: LYNNE Amlodipine Besylate (Amlodipine Besylate 5 Mg Tablet) 5 mg PO DAILY@1200 MAYRA; Protocol Last Admin: 01/29/25 12:04 Dose: 5 mg Documented By: DARNELL Atorvastatin Calcium (Atorvastatin Calcium 80 Mg Tablet) 80 mg PO DAILY [facility] Last Admin: 01/30/25 08:32 Dose: 80 mg Documented By: LIO Fluticasone/Vilanterol (Fluticasone/Vilanterol 200/25 Blst.W.Dev) 1 puff INHALE RDAILY [facility] Last Admin: 01/30/25 08:06 Dose: 1 puff Documented By: LINETTE Furosemide (Furosemide 20 Mg Tablet) 20 mg PO BID [facility]; Protocol Last Admin: 01/30/25 08:31 Dose: 20 mg Documented By: LIO Heparin Sodium (Porcine) (Heparin Sodium,Porcine 5,000 Unit/Ml Vial) 5,000 unit SUBCUT Q8H [facility] Last Admin: 01/30/25 03:07 Dose: 5,000 unit Documented By: FORTINO Hydroxyzine HCl (Hydroxyzine Hcl 25 Mg Tablet) 25 mg PO BEDTIME [facility] Last Admin: 01/29/25 22:04 Dose: 25 mg Documented By: FORTINO Insulin Human Lispro (Insulin Lispro 100 Unit/Ml 3 Ml Vial) 0 unit SUBCUT QIDACHS [facility]; Protocol Last Admin: 01/30/25 07:44 Dose: Not Given Documented By: LIO Non-Admin Reason: No Insulin Coverage Levothyroxine Sodium (Levothyroxine Sodium 200 Mcg Tablet) 200 mcg PO DAILY@0600 [facility] Last Admin: 01/30/25 05:55 Dose: 200 mcg Documented By: FORTINO Metformin HCl (Metformin Hcl Er 500 Mg Tab.Er.24h) 500 mg PO BIDWM [facility] Last Admin: 01/30/25 08:31 Dose: 500 mg Documented By: LIO Methadone HCl (Methadone Hcl 20 Mg/2 Ml Oral.Conc) 56 mg PO DAILY [facility] Last Admin: 01/30/25 08:32 Dose: 56 mg Documented By: LIO Co-signed By: JONG Omeprazole (Omeprazole 20 Mg Capsule.Dr) 20 mg PO DAILY@0630 [facility] Last Admin: 01/30/25 05:55 Dose: 20 mg Documented By: FORTINO Perphenazine (Perphenazine 4 Mg Tablet) 4 mg PO BEDTIME [facility] Last Admin: 01/29/25 22:04 Dose: 4 mg Documented By: FORTINO Sertraline HCl (Sertraline Hcl 100 Mg Tablet) 100 mg PO DAILY@1200 [facility] Sertraline HCl (Sertraline Hcl 25 Mg Tablet) 25 mg PO DAILY [facility] Last Admin: 01/30/25 08:32 Dose: 25 mg Documented By: LIO Labs 01/30/25 06:08 01/30/25 06:08 Labs: Laboratory Results - last 24 hr 01/29/25 01/29/25 01/29/25 11:23 16:18 20:24 MCV MCH MCHC RDW Plt Count MPV Immature Gran % (Auto) Neut % (Auto) Lymph % (Auto) Lynn % (Auto) Eos % (Auto) Baso % (Auto) Lymph # (Auto) Lynn # (Auto) Eos # (Auto) Baso # (Auto) Abs Immat Gran (auto) Absolute Neuts (auto) Absolute Nucleated RBC Nucleated RBC % (auto) VBG pH VBG pCO2 VBG pO2 VBG HCO3 VBG O2 Saturation VBG Base Excess Anion Gap Estim Creat Clear Calc Estimated GFR POC Glucose 174 H 159 H 123 H Random Glucose Calcium Phosphorus Magnesium Albumin 01/30/25 01/30/25 01/30/25 06:08 06:11 07:17 MCV 93.2 MCH 27.7 MCHC 29.7 L RDW 14.5 Plt Count 137 L MPV 12.1 Immature Gran % (Auto) 0.5 H Neut % (Auto) 50.1 Lymph % (Auto) 38.7 Lynn % (Auto) 7.0 Eos % (Auto) 3.2 Baso % (Auto) 0.5 Lymph # (Auto) 2.4 Lynn # (Auto) 0.4 Eos # (Auto) 0.2 Baso # (Auto) 0.0 Abs Immat Gran (auto) 0.03 Absolute Neuts (auto) 3.1 Absolute Nucleated RBC 0.000 Nucleated RBC % (auto) 0.0 VBG pH 7.34 VBG pCO2 68 VBG pO2 81 VBG HCO3 36 H VBG O2 Saturation 96.0 VBG Base Excess 8.1 Anion Gap 12 Estim Creat Clear Calc 104.7 Estimated GFR > 60 POC Glucose 131 H Random Glucose 101 Calcium 8.7 Phosphorus 3.1 Magnesium 2.3 Albumin 4.0 Microbiology Microbiology Results: Microbiology 01/28/25 00:17 Blood Culture - Preliminary Blood - Venous No growth after 48 hours. 01/28/25 00:15 Blood Culture - Preliminary Blood - Venous No growth after 48 hours. Assessment and Plan (1) Acute exacerbation of chronic obstructive pulmonary disease (COPD): Status: Acute (2) Acute respiratory failure with hypoxia: Status: Acute Assessment and Plan: 58-year-old female with pertinent history of chronic hypoxemic respiratory failure due to COPD on 4-6 L supplemental oxygen, hypothyroidism, opiate use disorder, HCV cirrhosis, mood disorder, hypertension, gastroesophageal reflux disease, mixed hyperlipidemia, tobacco use disorder, NATALIE/OHS noncompliant with NIV admittted through ICU for acute hypoxic and hypercarbic resp failure requiring bipap Acute on chronic hypoxic hypercapnic respiratory failure due to acute exacerbation of COPD, required Bipap in ICU, continue to have sob, cough and rib pain continue IV steroid, bronchodilators by Neb, and add empiric doxycyline, mucinex Metabolic alkalosis from compensation for resp acidosis diamox Hypothyroid: On Synthroid Opiate use disorder: On methadone HCV cirrhosis: No decompensation on admission Mood disorder: Continue home mood stabilizers Hypertension: On amlodipine and furosemide Mixed hyperlipidemia: On statin. NATALIE/OHS: NIV. Quality Stroke Does the patient have a stroke diagnosis?: No VTE Prior VTE?: No VTE Risk Level:: Medical - moderate - high VTE Device Contraindication: Treatment Not Indicated VTE Drug Contraindication: N/A - Med Ordered
[2025-01-30] MEDS: guaiFENesin LA 600 MG TAB.ER.12H PO ×2 (11:38→20:21)
[2025-01-30 11:50] LABS: Glucose, Whole Blood 142 mg/dL (60-115)
[2025-01-30 17:24] LABS: Glucose, Whole Blood 193 mg/dL (60-115)
[2025-01-30 20:16] LABS: Glucose, Whole Blood 197 mg/dL (60-115)
[2025-01-31 03:58] VITALS: BP 120/72; PULSE 91; RESP 18; TEMP 36.1; O2SAT 93
[2025-01-31 06:13] LABS: Creatinine Clr Calc Pharmacy 92.9; Estimated Glomerular Filt Rate > 60
[2025-01-31 07:13] VITALS: BP 133/75; PULSE 83; RESP 16; TEMP 36.1; O2SAT 92
[2025-01-31 07:23] LABS: Glucose, Whole Blood 129 mg/dL (60-115)
[2025-01-31] MEDS: Albuterol/Iprat 2.5/0.5MG 3 ML AMPUL.NEB INHALE (08:08)
[2025-01-31 08:09] VITALS: PULSE 93; RESP 16; O2SAT 94
[2025-01-31] MEDS: methADONE HCl 20 MG/2 ML ORAL.CONC 56 MG PO (09:10)
[2025-01-31] MEDS: guaiFENesin LA 600 MG TAB.ER.12H PO (09:11)
--- NOTE | 2025-01-31 09:54 | P.DS_ITS ---
DS: Providers Provider Date of Service: 01/31/25 Date of admission: 01/28/25 11:30 Date of discharge: 01/31/25 Primary care physician: Cathleen Sears MD DS: Diagnosis Discharge Diagnosis (1) Acute exacerbation of chronic obstructive pulmonary disease (COPD): Status: Acute (2) Acute respiratory failure with hypoxia: Status: Acute DS: Summary Hospital Course Hospital Course: Chief Complaint: Acute on chronic hypoxic and hypercapnic respiratory failure 59-year-old lady with underlying COPD on 4-6 L of supplemental oxygen, hep C, hypertension, hypothyroidism, substance abuse on methadone presented complaining of shortness of breath. On ER evaluation patient with acute on chronic hypoxic and hypercapnic respiratory failure initially requiring BiPAP support, admitted to the intensive care unit. Hospital course: The patient presented with dyspnea and found to be acute on chronic hypoxic respriatory failure with hypercarbia and required rescue BiPAP in the ICU, additionally treated with IV sterid and empiric Doxycyline. CXR showed basilar opacity. At discharge will be transition to oral prednisone tappor and to complete 7 days of doxycyline and outpatient pulmonology follow up Time Attestation Discharge Coordination Time (in mins): 40 Quality: Safe Use of Opioids Does Pt have an Active Cancer Diagnosis on the Problem List?: No Quality: Stroke Does the patient have a stroke diagnosis?: No Physical Exam Vital Signs: Vital Signs: Last Vital Signs Temp 97.0 F 01/31/25 07:13 Pulse 93 01/31/25 08:09 Resp 16 01/31/25 08:09 BP 133/75 01/31/25 07:13 Pulse Ox 92 01/31/25 07:13 O2 Del Method Nasal Cannula 01/31/25 07:13 O2 Flow Rate 5 01/31/25 07:13 FiO2 35 01/29/25 08:00 Oxygen Flow Rate 2 01/28/25 01:51 BMI result Body Mass Index 29.0 Const: Other: General: AO X 3, no acute distress Resp: CTA bilateral CVS: S1,S2,RRR GI: +BS, NT, no distention Skin: No rash Neuro: motor grossly intact Psych: appropriate affect DS: Data Data Completed and Pending Labs on day of discharge: Laboratory Results - last 24 hr 01/30/25 01/30/25 01/30/25 11:28 16:32 20:03 Hold Purple Top Creatinine Estim Creat Clear Calc Estimated GFR POC Glucose 142 H 193 H 197 H 01/31/25 01/31/25 05:11 07:11 Hold Purple Top SEE NOTE Creatinine 0.71 Estim Creat Clear Calc 92.9 Estimated GFR > 60 POC Glucose 129 H Preliminary micro results at discharge 01/28/25 00:17 Blood Culture - Preliminary Blood - Venous No growth after 48 hours. 01/28/25 00:15 Blood Culture - Preliminary Blood - Venous No growth after 48 hours. Discharge Plan Discharge Anticipated Discharge Date/Time: 01/31/25 09:56 Patient Disposition: Home, Self-Care Discharge Diagnosis: COPD exacerbation Referrals: Phil [Outside] - 1 Day Referral Note: resume services Cathleen Sears MD [Primary Care Provider, Internal Medicine] - 1 Week Discharge Medications: New doxycycline monohydrate 100 mg Capsule 100 mg PO Q12H Qty: 10 0RF prednisone 10 mg tablet See Taper PO DIRECTED Qty: 20 0RF Taper: Prednisone 40 mg daily for 3 Days and 0 Hour 30 mg daily for 3 Days and 0 Hour 20 mg daily for 3 Days and 0 Hour 10 mg daily for 3 Days and 0 Hour Rx Instructions: see taper instructions Continued ipratropium-albuterol 0.5 mg-3 mg(2.5 mg base)/3 mL solution for nebulization 3 ml inhalation QID PRN (Reason: wheezing) sertraline 100 mg Tablet 100 mg PO DAILY@1200 cetirizine 10 mg tablet 5 mg PO DAILY hydroxyzine pamoate 25 mg capsule 25 mg PO BEDTIME furosemide 20 mg tablet 20 mg PO BID amlodipine 10 mg tablet 5 mg PO DAILY@1200 albuterol sulfate [Ventolin HFA] 90 mcg/actuation HFA aerosol inhaler 2 puff INHALATION Q6H PRN (Reason: wheezing) acetaminophen 500 mg tablet 1,000 mg PO Q8H PRN (Reason: moderate pain) methadone 10 mg/mL concentrate 56 mg PO DAILY fluticasone furoate-vilanterol [Breo Ellipta] 200-25 mcg/dose Blister With Device 1 inh inhalation DAILY Qty: 60 0RF metformin 500 mg tablet extended release 24 hr 500 mg PO BID rosuvastatin 20 mg Tablet 20 mg PO DAILY lidocaine 5 % adhesive patch,medicated 1 patch topical DAILY PRN (Reason: Pain) sertraline 25 mg tablet 25 mg PO DAILY celecoxib 100 mg capsule 100 mg PO BID perphenazine 4 mg tablet 4 mg PO BEDTIME Incruse Ellipta 62.5 mcg/actuation blister with device 1 inh inhalation DAILY levothyroxine 200 mcg tablet 200 mcg PO DAILY@0600 sennosides [senna] 8.6 mg tablet 17.2 mg PO BEDTIME PRN (Reason: constipation) Qty: 60 6RF pantoprazole 40 mg tablet,delayed release (DR/EC) 40 mg PO DAILY Qty: 30 6RF famotidine 40 mg tablet 40 mg PO BEDTIME Qty: 30 6RF docusate sodium 100 mg capsule 100 mg PO BID PRN (Reason: Constipation) Qty: 60 6RF Discharge Orders: Discharge Order (Routine); Ordered 01/31/25 Ordered By: Karthikeyan Whitley Diet: Diabetic diet Activity on Discharge: As tolerated Stand Alone Forms: Patient Portal Discharge page Print Language: Pakistani Care Plan Goals: recovery from copd exacerbation Health Concerns: chronic respriatory failure due to copd exacerbation and possible bronchitis Plan of Treatment: continue inhalers as before use Prednisone as directed follow up with your doctor in a week, call for appointment Assessment: See above Discharge Date/Time: 01/31/25 13:46
[2025-01-31 10:41] VITALS: BP 122/73; PULSE 92; RESP 18; TEMP 36; O2SAT 100
[2025-01-31] MEDS: Fluticasone/Vilanterol 200/25 BLST.W.DEV 1 PUFF INHALE (11:00)
--- NOTE | 2025-01-31 11:22 | MHC.CM.PN ---
Per MD, patient medically cleared for dc home w/ resumption of [facility]. Patient requesting BLS transport. Scheduled for 12:30. , RN and patient aware. DC summary and last dose letter sent to [facility] via [employer]. No response rec'd. Called and spoke w/ [employer] - they are aware of dc and that documents are in [employer].
[2025-01-31 11:24] LABS: Glucose, Whole Blood 157 mg/dL (60-115)
[2025-01-31 12:00] VITALS: BP 120/72; PULSE 108; RESP 16; TEMP 36; O2SAT 92
== END 2025-01-31 13:46 | disposition home or self-care (01) | DRG 140 ==
LOC: HO.ED 01-28 01:02 → HO.EDOVER 01-28 11:42 → HO.ICU 01-28 11:57 → HO.IMC 01-29 13:40 → HO.S3 01-30 15:33
PROVIDERS: Emergency Medicine; Registered Nurse Community Health; Admitting Provider Internal Medicine Pulmonary Disease; Emergency Provider Emergency Medicine; PCP Family Medicine; Visit Provider Internal Medicine
DX: J44.1 Chronic obstructive pulmonary disease with (acute) exacerbation (principal); J96.21 Acute and chronic respiratory failure with hypoxia; K74.69 Other cirrhosis of liver; Z99.81 Dependence on supplemental oxygen; E11.9 Type 2 diabetes mellitus without complications; J96.22 Acute and chronic respiratory failure with hypercapnia; E03.9 Hypothyroidism, unspecified; F11.20 Opioid dependence, uncomplicated; F17.210 Nicotine dependence, cigarettes, uncomplicated; Z20.822 Contact with and (suspected) exposure to COVID-19; Z71.6 Tobacco abuse counseling; Z86.19 Personal history of other infectious and parasitic diseases; Z79.51 Long term (current) use of inhaled steroids; Z79.84 Long term (current) use of oral hypoglycemic drugs; Z79.890 Hormone replacement therapy; Z79.899 Other long term (current) drug therapy
CPT/HCPCS: 36415; 71045; 71046; 80048; 80053; 80307; 82040; 82140; 82565; 82803; 82947; 83605; 83735; 84100; 84443; 84484; 85025; 87040; 87502; 87635; 93005; 94640; 94660; 99285; J0461; J0696; J1120; J1171; J1271; J1644; J2270; J2919; J7120

== ENCOUNTER → 2025-01-27 22:32 | Outpatient (BNV) | payer MEDICAID, SELFPAY | PROVIDERS: Admitting Provider Internal Medicine Pulmonary Disease; Emergency Provider Emergency Medicine; PCP Family Medicine; Visit Provider Internal Medicine Cardiovascular Disease | DX: R94.31 Abnormal electrocardiogram [ECG] [EKG] (principal); R41.82 Altered mental status, unspecified | CPT/HCPCS: 93010 ==

== ENCOUNTER → 2025-01-27 22:32 | Outpatient (BNV) | payer MEDICAID, SELFPAY | PROVIDERS: Emergency Provider Emergency Medicine; PCP Family Medicine; Visit Provider Radiology Neuroradiology | DX: R91.8 Other nonspecific abnormal finding of lung field (principal) | CPT/HCPCS: 71045 ==

== ENCOUNTER 2025-01-28 11:30 | Outpatient (BNV) | payer MEDICAID, SELFPAY | END 2025-01-31 10:23 | PROVIDERS: Admitting Provider Internal Medicine Pulmonary Disease; Emergency Provider Emergency Medicine; PCP Family Medicine; Visit Provider Radiology Diagnostic Radiology | DX: I51.7 Cardiomegaly (principal); R91.8 Other nonspecific abnormal finding of lung field | CPT/HCPCS: 71046 ==

== ENCOUNTER → 2025-01-28 11:30 | Outpatient (BNV) | payer MEDICAID, SELFPAY | PROVIDERS: Admitting Provider Internal Medicine Pulmonary Disease; Emergency Provider Emergency Medicine; PCP Family Medicine; Visit Provider Internal Medicine Pulmonary Disease | DX: J44.9 Chronic obstructive pulmonary disease, unspecified (principal); E11.69 Type 2 diabetes mellitus with other specified complication; E03.9 Hypothyroidism, unspecified; E87.29 Other acidosis; J96.02 Acute respiratory failure with hypercapnia | CPT/HCPCS: 99223; 99232 ==

== ENCOUNTER → 2025-01-28 11:30 | Outpatient (BNV) | payer MEDICAID, SELFPAY | PROVIDERS: Admitting Provider Internal Medicine Pulmonary Disease; Emergency Provider Emergency Medicine; PCP Family Medicine; Visit Provider Internal Medicine | DX: J44.1 Chronic obstructive pulmonary disease with (acute) exacerbation (principal); J96.01 Acute respiratory failure with hypoxia | CPT/HCPCS: 99232; 99239 ==

== ENCOUNTER 2025-03-05 05:40 | Inpatient (IN) | payer MEDICAID, SELFPAY ==
[2025-03-05] VITALS (50 sets, daily range): BP systolic 71–178; BP diastolic 34–119; PULSE 18–141; RESP 18–29; TEMP 33–37.5; O2SAT 87–100; BMI 30.5; BMI 32.6
--- NOTE | 2025-03-05 | ECG_ITS ---
Test Reason : DIZZINESS Blood Pressure : */* mmHG Vent. Rate : 93 BPM Atrial Rate : 93 BPM P-R Int : 152 ms QRS Dur : 92 ms QT Int : 378 ms P-R-T Axes : 79 -64 60 degrees QTcB Int : 469 ms Sinus rhythm with Premature atrial complexes Left axis deviation Abnormal ECG When compared with ECG of 27-Jan-2025 22:54, Premature atrial complexes are now Present Referred By: Iglesia Knight Electronically Signed By: SEBASTIAN VAN MD
--- NOTE | ~2025-03-05 | CT_ITS ---
EXAMINATION: CT ABDOMEN PELVIS WITH IV CONTRAST HISTORY: Respiratory failure, distended abdomen, evaluate f COMPARISON: Previous chest CT angiogram from earlier the same day and prior CT of the abdomen and pelvis from 2019 TECHNIQUE: CT scan of the abdomen and pelvis was performed following administration of Omnipaque 350 using standard departmental protocol. Unknown dose due to IV and saline infiltrate Coronal and sagittal reformatted images were generated and reviewed. This CT exam was performed with one or more of the following dose reduction techniques: automated exposure control, adjustment of the mA and/or kV according to patient size, use of iterative reconstruction technique. DLP: 1252 mGy-cm FINDINGS: Suboptimal intravenous contrast enhancement/delayed imaging due to IV infiltration. LOWER CHEST: Scarring or subsegmental atelectasis in the peripheral or subpleural posterior right lower lobe. There is no pleural effusion. CARDIOVASCULATURE: The heart is normal in size. There is no pericardial effusion. LIVER: The liver is slightly, right lobe measuring 18 cm in length. Question slightly lobular liver contour and prominent left lobe and caudate lobe. Clinically correlate for mild cirrhosis. No liver mass is identified. The portal and hepatic veins are patent. GALLBLADDER / BILE DUCTS: The gallbladder is unremarkable. There is no intra or extrahepatic biliary ductal dilatation. SPLEEN: The spleen is normal in size. No focal splenic lesion is identified. PANCREAS: The pancreas is unremarkable in appearance. ADRENAL GLANDS: Within normal limits. KIDNEYS/RETROPERITONEUM: There is excreted contrast in the collecting systems which lowers sensitivity for detection of renal stone. No renal stone appreciated. There is no hydronephrosis. No renal masses are identified. LYMPH NODES: No enlarged lymph nodes. Shotty portacaval and retroperitoneal lymph nodes. VASCULATURE: No abdominal aortic aneurysm. Mild atherosclerotic disease. Prominent main portal vein measuring 1.8 cm actionable for portal hypertension. Retroaortic left renal vein. Prominent left ovarian vein. There is air seen in the left groin in the region of the left common femoral vein. This may be related to recent venous access. Clinical correlation recommended. MESENTERY/PERITONEUM: No free fluid. No masses. There is no free intraperitoneal gas. STOMACH: Nasogastric tube with tip in the proximal stomach. SMALL BOWEL: Slightly distended fluid-filled small bowel. No transition zone seen to suggest mechanical obstruction. No wall thickening or pneumatosis. COLON: There is air filled slightly distended large bowel. There is focal apparent wall thickening and luminal narrowing of the proximal left colon for example axial image 22 series 17, coronal reconstructed image 45 and sagittal reconstructed image 12. Is uncertain whether this represents an annular lesion in the colon or is related to peristalsis/contraction. APPENDIX: Normal. URINARY BLADDER/PELVIC ORGANS: Tanner catheter in the bladder. The bladder is empty. Uterus and adnexa are unremarkable. BONES / SOFT TISSUES: Small bilateral inguinal and helical hernias containing fat. Mild degenerative changes of the spine and hips. CT/CT abdomen pelvis w IV con IMPRESSION: Suboptimal intravenous contrast enhancement/delayed imaging due to IV infiltration. Fluid-filled slightly distended small bowel. Air filled slightly distended large bowel. This probably represents an ileus. Focal segment narrowing and circumferential wall thickening of the proximal left:. Question annular constricting lesion versus changes due to peristalsis/contraction. Imaging or colonoscopy follow-up recommended to exclude a colon lesion. Slightly enlarged liver and question mild cirrhotic change and portal hypertension. Small amount of air in the left groin and adjacent to the left common femoral vein. This may be related to recent venous access. Clinical correlation recommended. Electronically signed by: Annelise Medeiros MD 03/05/2025 10:31 AM JENIFFER
--- NOTE | ~2025-03-05 | XR_ITS ---
EXAMINATION: XR CHEST CLINICAL INFORMATION: ETT advanced, rechecked ETT place COMPARISON: Previous chest x-ray most recent from earlier the same day TECHNIQUE: Frontal view of the chest was obtained. FINDINGS: Endotracheal tube tip 4.8 cm above the jeffry. Nasogastric tube projects over the proximal stomach, tip not seen. Bibasilar atelectasis or small infiltrates. This appears improved from earlier exam. No pleural effusion or pneumothorax. Cardiac and mediastinal contours are stable. Mild degenerative changes of the spine. XR/XR chest 1V IMPRESSION: Endotracheal tube tip 4.8 cm above the jeffry. Bibasilar atelectasis or small infiltrates which appear improved from earlier exam. Electronically signed by: Annelise Medeiros MD 03/05/2025 08:54 AM [facility]
--- NOTE | ~2025-03-05 | XR_ITS ---
EXAMINATION: XR CHEST 1 VIEW HISTORY: Confirm Central Line Placement COMPARISON: Comparison is made with the prior examination dated 03/05/2025. FINDINGS: Two AP portable views of the chest performed at 11:12 AM are submitted. Endotracheal and orogastric tubes are unchanged in position. There has been interval placement of a right internal jugular central venous catheter with its tip in the region of the proximal superior vena cava. The lungs are hyperinflated consistent with COPD. The lungs are clear. There is no pleural effusion, pneumothorax, or pulmonary vascular congestion. The heart is normal in size. The bones are intact. XR/XR chest 1V IMPRESSION: 1. Lines and tubes in place as described. 2. COPD. The lungs are clear. Electronically signed by: Jackson Mott MD 03/05/2025 11:27 AM [facility]
--- NOTE | ~2025-03-05 | CT_ITS ---
EXAMINATION: CT FACIAL BONES WITHOUT CONTRAST CLINICAL INFORMATION: Status post fall. Change in mental status. COMPARISON: None available. TECHNIQUE: Contiguous axial images through the maxillofacial bones using 3 mm collimation with bone and soft tissue algorithm. Sagittal and coronal reformatted images acquired. This CT examination was performed using dose optimization techniques as appropriate, variously including the following: *Automated exposure control *Adjustment of mA and/or kV according to patient size (this includes techniques or standardized protocols for targeted exams where dose is matched to indication/reason for exam; i.e. extremities or head) *Use of iterative reconstruction technique DLP: 374 mGy-cm FINDINGS: Comminuted cortical disruption is in the nasal bones. Nasal septum and vomer are grossly intact. Orbital rims, orbital fissures and orbital apices are intact. The eyeballs are intact. No hematoma, intraconal or extraconal compartments of the orbits. No acute cortical disruptions, zygomatic arcs. Cortical irregularity at the base of the anterior nasal spine maxilla. Pterygoid plates are intact. Mandible is intact. Temporomandibular joints are intact. Edentulous. Mucosal thickening, paranasal sinuses. No air-fluid levels in the left saphenous sinus. Tympanic cavities and mastoid cells are aerated. There is an endotracheal tube placed through the oral cavity. There is an NG tube placed via oral cavity. CT/CT facial bones wo IV con IMPRESSION: Acute comminuted displaced nasal bone fractures. Fracture anterior nasal spine spine maxilla. Acute on chronic paranasal sinus disease.. Electronically signed by: Jerman Flores MD 03/05/2025 08:16 AM [facility]
--- NOTE | ~2025-03-05 | XR_ITS ---
EXAMINATION: XR CHEST CLINICAL INFORMATION: Check ETT placement COMPARISON: January 31, 2025. TECHNIQUE: AP portable upright view of the chest was obtained. FINDINGS: The endotracheal tube and its 5 cm above jeffry. There is an NG tube in the stomach region. Pulmonary reticular pattern with prominence of the interstitial lung markings and linear opacities mostly in the right hemithorax. No gross pneumothorax. Cardiomediastinal silhouette size is normal. XR/XR chest 1V IMPRESSION: Endotracheal tube ends 5 cm above jeffry. Status post NG tube placement in the stomach region. Chronic interstitial lung disease with superimposed mild interstitial lung edema versus less likely acute inflammatory small airway disease. Electronically signed by: Jerman Flores MD 03/05/2025 07:13 AM [facility]
--- NOTE | ~2025-03-05 | CT_ITS ---
EXAMINATION: CT CERVICAL SPINE WITHOUT CONTRAST CLINICAL INFORMATION: Status post fall. Change in mental status. COMPARISON: January 02, 2024. TECHNIQUE: Contiguous axial images through the cervical spine using 3 mm collimation with bone and soft tissue algorithm. Sagittal and coronal reformatted images acquired. This CT examination was performed using dose optimization techniques as appropriate, variously including the following: *Automated exposure control *Adjustment of mA and/or kV according to patient size (this includes techniques or standardized protocols for targeted exams where dose is matched to indication/reason for exam; i.e. extremities or head) *Use of iterative reconstruction technique DLP: 464.9 mGy-cm FINDINGS: Craniocervical junction is intact with normal alignment between the occipital condyles and lateral masses of C1. Degenerative changes in the periodontal C1 region. Marginal osteophyte formation and endplate sclerosis subchondral cyst formation decreased intervertebral disc height and vacuum phenomenon at C5-6. Similar findings without vacuum phenomenon at C6-7. Bilateral facet joint hypertrophy with incomplete fusion facet joints at C2-3, bilaterally. C1 is intact. C2 is intact. C3 is intact. C4 is intact. C5 is intact. C6 is intact. C3 7 is intact. No prevertebral compartment hematoma. Central spinal canal stenosis on a degenerative basis at C5-6 and to a lesser extent C6-7. There is an NG tube towards the esophagus. There is an endotracheal tube towards the trachea no fully included in the [id number]. Centrilobular and paraseptal emphysematous changes. Tympanic cavities and mastoid cells are aerated. Air-fluid levels in the left sphenoid sinus. CT/CT cervical spine wo IV con IMPRESSION: Multilevel cervical spondylosis pronounced at C5-6 and C6-7 without acute fracture or trauma-related listhesis. Acute on chronic left saphenous sinus disease. Centrilobular and paraseptal emphysematous changes. Fleischner guidelines were followed. Electronically signed by: Jerman Flores MD 03/05/2025 08:09 AM [facility]
--- NOTE | ~2025-03-05 | XR_ITS ---
EXAMINATION: XR ABDOMEN KUB CLINICAL INDICATION: Distended, NG tube reinserted, check placement COMPARISON: None available. TECHNIQUE: AP view of the abdomen. FINDINGS: Nasogastric tube coiled in the proximal stomach. Air-filled distended loops of small and large bowel. No free air. No suspicious calcifications. Mild degenerative changes of the lower lumbar spine. XR/XR abdomen 1V IMPRESSION: Nasogastric tube tip coiled over the proximal stomach. Air-filled distended loops of small and large bowel. Electronically signed by: Annelise Medeiros MD 03/05/2025 08:56 AM EST
--- NOTE | ~2025-03-05 | CT_ITS ---
EXAMINATION: CT HEAD WITHOUT CONTRAST CLINICAL INFORMATION: Fall, yesterday, altered mental status COMPARISON: January 02, 2024. TECHNIQUE: Contiguous axial imaging was performed from the skull base to vertex without intravenous administration of contrast. This CT examination was performed using dose optimization techniques as appropriate, variously including the following: *Automated exposure control *Adjustment of mA and/or kV according to patient size (this includes techniques or standardized protocols for targeted exams where dose is matched to indication/reason for exam; i.e. extremities or head) *Use of iterative reconstruction technique DLP: 801.50 mGy-cm FINDINGS: Small soft tissue contusion, forehead. No acute cortical disruption in the bony calvarium. Cortical disruption, nasal bones. No acute intracranial hemorrhage, mass effect, midline shift, hydrocephalus or herniation. Plummer-white matter differentiation is normal. Posterior cranial fossa contents demonstrated no acute hemorrhage or mass effect. Normal position of the cerebellar tonsils. Sellar/suprasellar region demonstrated no gross masses. Mucosal thickening without air-fluid levels in the ethmoid cells and frontal sinuses. Tympanic cavities and mastoid cells are aerated. There is an NG tube in the nasopharynx no fully evaluated.. CT/CT head/brain wo IV con IMPRESSION: No visible fractures. Soft tissue contusion, forehead. No acute fracture, bony calvarium. No acute intracranial hemorrhage. Electronically signed by: Jerman Flores MD 03/05/2025 08:03 AM [facility] [place]
--- NOTE | ~2025-03-05 | CT_ITS ---
EXAMINATION: CT ANGIOGRAM CHEST CLINICAL INFORMATION: 59-year-old female. Respiratory arrest, three-minute cardiac arrest, intubated, rule out PE/rule out pneumonia. COMPARISON: 10/31/2023 CTPA 10/25/2023 CT chest 07/01/2023 CT chest. TECHNIQUE: Multiple axial images were obtained through the chest after the administration of 85 mL of Omnipaque 350 intravenous contrast. Extensive vascular post-processing including two-dimensional and three-dimensional reformatted images were created and reviewed on an independent workstation. This CT examination was performed using dose optimization techniques as appropriate, variously including the following: *Automated exposure control *Adjustment of mA and/or kV according to patient size (this includes techniques or standardized protocols for targeted exams where dose is matched to indication/reason for exam; i.e. extremities or head) *Use of iterative reconstruction technique FINDINGS: SUPPORT DEVICES: Endotracheal tube is in good position, lying approximately 4 cm above the jeffry. Orogastric tube is in good position, with tip and sidehole in the stomach. Tip terminates in the gastric antrum. VASCULAR: Study is mildly suboptimal due to suboptimal bolus enhancement of the main pulmonary arterial system and mild respiratory motion degradation. (A portion of the bolus extravasated into the patient's left arm). There is positive segmental and subsegmental pulmonary embolus identified in the left upper lobe pulmonary arteries, and there is subsegmental suspected pulmonary emboli in the bilateral lower lobes. There is no central pulmonary embolus identified. Clot burden is mild to moderate, mainly in the left upper lobe pulmonary arteries. There is mild ventricular septal flattening without septal bowing, with increased right ventricle/left ventricular ratio. Cannot exclude a mild amount of right heart strain although there is no contrast reflux into the SVC or hepatic veins. There is enlargement of the main pulmonary artery, with the pulmonary trunk diameter of 3.6 cm. The aorta enhances normally without evidence of aneurysm or acute aortic syndrome. There is minimal atheromatous plaque. The great vessels branch normally and are patent. The heart size is borderline enlarged. There is no pericardial effusion. There is prominence of the right ventricle and right atrium. Findings may indicate increased right heart pressures. LUNGS: There is mild to moderate respiratory motion degradation. Lungs demonstrate moderate to severe changes of centrilobular and paraseptal emphysema, with upper lobe predominance, and upper lobe subpleural blebbing and bulla. There is linear type discoid atelectasis in the posterior right upper lobe, right middle lobe, and to a lesser degree the bilateral dependent lower lobes. There is no discrete consolidated pneumonia appreciated. Mosaic attenuation of the lung parenchyma is most likely on the basis of air trapping and underlying PE. Mild thickening of the small airways is noted, suggestive of chronic bronchitis. There is no pneumothorax or effusion. There are a few scattered pulmonary nodules measuring up to 4 mm, which are nonspecific and statistically benign. PLEURA: There is no pleural effusion. No pleural mass or thickening. MEDIASTINUM: The thyroid was not included in the imaging. No mediastinal pathologic lymphadenopathy or mass. There is a partially calcified right paratracheal station 4R lymph node, in keeping with prior granulomatous exposure. Orogastric tube seen in a normal appearing esophagus. See above for vascular structures. AXILLA/CHEST WALL: No mass or abnormal lymph nodes. UPPER ABDOMEN: Refer to the dedicated CT abdomen and pelvis performed concurrently. OSSEOUS STRUCTURES: No definite acute findings. No displaced rib fractures. No suspicious lytic or blastic bone lesions. CT/CT angio chest PE protocol IMPRESSION: 1. POSITIVE examination for pulmonary embolus, with segmental and subsegmental involvement mainly in the left upper lobe. There is mild to moderate clot burden present. Examination does not meet strict criteria for submassive PE, although a mild amount of right heart strain may be present. There is abnormal enlargement of the main pulmonary trunk. 2. No evidence of acute aortic syndrome or aortic aneurysm. 3. ET tube and OG tube in good position. 4. Moderate to severe emphysema with apical bullous changes. There is linear type atelectasis in the right middle lobe, and lower lobes. There is no definite pneumonia appreciated. There are no effusions. 4. Ancillary findings as discussed in the body of the report. Above findings discussed with Dr. Knight of the [facility] via phone call at 10:06 AM, 03/05/2025, with findings understood. Electronically signed by: Navdeep Arguello MD 03/05/2025 10:27 AM [facility] [place]
--- NOTE | 2025-03-05 06:00 | ED.AMS ---
HPI - Altered Mental Status General Chief Complaint: General Medical Stated Complaint: syncope Time Seen by Provider: 03/05/25 05:55 Source: other (ED nurse reports) Mode of arrival: EMS Limitations: no limitations History of Present Illness ED Provider: Dr. Iglesia Knight HPI narrative: 59-year-old female with a history of COPD oxygen dependent on 5-6 L via nasal cannula, diabetes, opiate use disorder, diabetes, community-acquired pneumonia, methadone dependence, hepatitis-C, pulmonary edema, hypertension, hypothyroidism who brought to emergency department by ambulance for altered mental status. According to the patient's CV nurse, the patient fell yesterday at around 19:00 hours and there is no other information available on the patient. When I evaluated the patient she was altered, not responding to verbal questions and minimally responsive to painful stimuli. Pupils were pinpoint. Patient has bilateral periorbital ecchymosis and ecchymosis to her nasal bridge. Patient also had an elevated respiratory rate of 28 and appeared to be dyspneic. I did review the patient's admission discharge note from 01/31/2025. Patient presented with dyspnea and was found to have acute on chronic hypoxic respiratory failure with hypercarbia requiring rescue BiPAP and ICU admission I using [facility] quality review trainer and contacted the patient's son Pablo Ruiz at and the quality review trainer left a voicemail asking in the son in a call the emergency department. Related Data Home Medications ?Medication ?Instructions ?Recorded ?Confirmed perphenazine 4 mg tablet 4 mg PO BEDTIME 09/24/21 01/28/25 levothyroxine 200 mcg tablet 200 mcg PO DAILY@0600 10/01/22 01/28/25 umeclidinium 62.5 mcg/actuation 1 inh inhalation DAILY 10/01/22 01/28/25 blister powder for inhalation (Incruse Ellipta) ipratropium 0.5 mg-albuterol 3 mg 3 ml inhalation QID PRN wheezing 04/20/23 01/28/25 (2.5 mg base)/3 mL nebulization soln sertraline 100 mg tablet 100 mg PO DAILY@1200 04/20/23 01/28/25 furosemide 20 mg tablet 20 mg PO BID 08/16/23 01/28/25 albuterol sulfate 90 mcg/actuation 2 puff inhalation Q6H PRN wheezing 10/06/23 01/28/25 aerosol inhaler (Ventolin HFA) acetaminophen 500 mg tablet 1,000 mg PO Q8H PRN moderate pain 12/08/23 01/28/25 methadone 10 mg/mL oral concentrate 56 mg PO DAILY 01/06/24 01/29/25 metformin 500 mg tablet,extended 500 mg PO BID 04/02/24 01/28/25 release 24 hr rosuvastatin 20 mg tablet 20 mg PO DAILY 04/02/24 01/28/25 cetirizine 10 mg tablet 5 mg PO DAILY 09/10/24 01/28/25 hydroxyzine pamoate 25 mg capsule 25 mg PO BEDTIME insomnia 09/10/24 01/28/25 celecoxib 100 mg capsule 100 mg PO BID mild pain 01/28/25 01/28/25 lidocaine 5 % topical patch 1 patch topical DAILY Pain 01/28/25 01/28/25 sertraline 25 mg tablet 25 mg PO DAILY 01/28/25 01/28/25 amlodipine 5 mg tablet 5 mg PO DAILY 03/05/25 fluticasone propionate 50 2 spray intranasal DAILY 03/05/25 mcg/actuation nasal spray,suspension levothyroxine 25 mcg tablet 25 mcg PO DAILY@0600 03/05/25 pantoprazole 40 mg tablet,delayed 40 mg PO DAILY@1200 03/05/25 release simethicone 180 mg capsule (Gas 180 mg PO BID 03/05/25 Relief (simethicone)) Previous Rx's ?Medication ?Instructions ?Recorded fluticasone furoate 200 1 inh inhalation DAILY #60 ea 01/09/24 mcg-vilanterol 25 mcg/dose inhalation powder (Breo Ellipta) docusate sodium 100 mg capsule 100 mg PO BID PRN Constipation #60 06/20/24 caps famotidine 40 mg tablet 40 mg PO BEDTIME #30 tabs 06/20/24 sennosides 8.6 mg tablet (senna) 17.2 mg (2 x 8.6 mg) PO BEDTIME 06/20/24 PRN constipation #60 tabs Allergies Allergy/AdvReac Type Severity Reaction Status Date / Time Penicillins (PENICILLINS) Allergy Unknown RED ITCHY Verified 03/05/25 06:00 RASH SEAFOOD Allergy Unknown FEVER Uncoded 01/27/25 22:02 SWELLING PMFSH Past Medical History Medical History (Updated 03/05/25 @ 08:52 by Iglesia Knight MD) CO2 retention Diabetes type 2 COPD (chronic obstructive pulmonary disease) Alcoholic cirrhosis Chronic respiratory failure Opioid use disorder, moderate, in sustained remission Opiate abuse, continuous Diabetes Nausea and vomiting COVID Community acquired pneumonia Colon cancer screening COPD (chronic obstructive pulmonary disease) Methadone dependence Hepatitis C Pulmonary edema Polysubstance abuse Hypertension Acute and chronic respiratory failure Hypotension Respiratory failure Acute respiratory failure, unspecified whether with hypoxia or hypercapnia Hyperlipidemia Psychosis Hypoxia Acute exacerbation of chronic obstructive airways disease HTN (hypertension) Hypothyroid Family History Family History Father HTN (hypertension) Mother Gastritis Ovarian cancer Arthritis Son Thyroid disease Other Hypothyroid Social History Social History Household Members: Other Household Members Other:: 1 Housing: Apartment Do you presently have visiting nurse or other home services: Yes ([facility]) Alcohol intake: current Alcohol intake frequency: does not drink Comment: refuses bed alarm at times Patient Tobacco Use Status: Current everyday Tobacco user Tobacco use type: Cigarette Cigarette Packs Per Day: 1 Cigarettes Per Day: 10 Years Smoked: 30 e-Cigarette/Vaping Use: Never Used Second Hand Smoke Exposure: No Substance Use Type: Heroin Advance Directives: Yes Advance Directives on File: Yes Advance Directives Date on File: 08/18/23 Do you have a plan to hurt others: No Plan service: No Current occupational status: unemployed Physical Exam ED Vital Signs: Vital Signs - 24 hr 03/05/25 05:49 03/05/25 05:49 03/05/25 06:02 Temperature 98.5 F 99.5 F Pulse Rate 92 92 93 Respiratory Rate 28 H 23 H Blood Pressure 99/63 136/91 H 136/82 Pulse Oximetry 92 92 Oxygen Delivery Method Nasal Cannula Nasal Cannula Oxygen Flow Rate 4 Fraction of Inspired Oxygen 03/05/25 06:03 03/05/25 06:55 03/05/25 06:59 Temperature Pulse Rate 92 141 H Respiratory Rate 28 H Blood Pressure 118/76 174/119 H Pulse Oximetry 97 Oxygen Delivery Method Oxygen Flow Rate Fraction of Inspired Oxygen 100 03/05/25 07:51 03/05/25 08:00 03/05/25 08:09 Temperature Pulse Rate 101 H Respiratory Rate 29 H 28 H 28 H Blood Pressure 94/61 Pulse Oximetry 94 Oxygen Delivery Method Oxygen Flow Rate Fraction of Inspired Oxygen 03/05/25 08:14 03/05/25 08:14 03/05/25 08:25 Temperature Pulse Rate 101 H 96 Respiratory Rate 28 H Blood Pressure 86/58 L 96/54 L Pulse Oximetry Oxygen Delivery Method Oxygen Flow Rate Fraction of Inspired Oxygen 50 03/05/25 08:27 03/05/25 08:31 03/05/25 08:35 Temperature Pulse Rate 93 93 Respiratory Rate 29 H Blood Pressure 88/53 L 111/70 Pulse Oximetry Oxygen Delivery Method Oxygen Flow Rate Fraction of Inspired Oxygen 03/05/25 08:58 03/05/25 09:03 Temperature Pulse Rate 94 Respiratory Rate Blood Pressure 76/48 L 90/57 L Pulse Oximetry Oxygen Delivery Method Oxygen Flow Rate Fraction of Inspired Oxygen BMI result Body Mass Index 32.6 Vital signs revealed an elevated respiratory rate of 28, O2 saturation was 92% on 4 L of oxygen via nasal cannula Exam: General: Awake, alert in no distress Head: Normocephalic, atraumatic EENT: PERRL, sclera and conjunctiva are normal, mouth with no erythema or exudates Neck: Supple, no adenopathy Lung: breath sounds symmetric, no wheezing, no rales and no rhonchi Chest: symmetric movement, nontender Heart: regular rate and rhythm, normal S1, S2 no murmurs or rubs Abdomen: soft, non-tender, nondistended, normal bowel sounds Back: no vertebral tenderness, no CVAT Extremities: no deformities, moves all extremities symmetrically, no edema Neuro: Awake, alert, oriented, normal speech, cranial nerves 2-12 intact, moves all extremities symmetrically Psych: Pleasant, cooperative Medications Administered Generic Name Dose Route Start Last Admin Trade Name Freq PRN Reason Stop Dose Admin Enoxaparin Sodium 90 mg 03/05/25 11:00 03/05/25 10:48 Enoxaparin Sodium 100 Mg/Ml Syringe 1 mg/kg (90 mg) 90 mg SUBCUT Administration Q12H MAYRA Propofol 1,000 mg in 100 mls @ 0 mls/hr 03/05/25 06:45 03/05/25 08:25 Diprivan IVCONT 50 mcg/kg/min .Q0M MAYRA 25.71 mls/hr Protocol Titration Per Protocol Norepinephrine Bitartrate 8 mg in 250 mls @ 0 mls/hr 03/05/25 08:30 03/05/25 08:58 Levophed IVCONT 0.07 mcg/kg/min .Q0M MAYRA 11.25 mls/hr Protocol Titration Per Protocol Discontinued Medications Generic Name Dose Route Start Last Admin Trade Name Papo PRN Reason Stop Dose Admin Fentanyl 100 mcg 03/05/25 07:46 03/05/25 07:51 Fentanyl Citrate/Pf 100 Mcg/2 Ml Vial IVPUSH 03/05/25 07:47 100 mcg ONCE ONE Administration Protocol Fentanyl 100 mcg 03/05/25 07:54 03/05/25 08:00 Fentanyl Citrate/Pf 100 Mcg/2 Ml Vial IVPUSH 03/05/25 07:55 100 mcg ONCE ONE Administration Protocol Fentanyl 100 mcg 03/05/25 07:59 03/05/25 08:35 Fentanyl Citrate/Pf 100 Mcg/2 Ml Vial IVPUSH 03/05/25 08:00 100 mcg ONCE ONE Administration Protocol Sodium Chloride 1,000 mls @ 999 mls/hr 03/05/25 05:56 03/05/25 06:12 Ns IV 03/05/25 06:56 999 mls/hr .Q1H1M STA Administration Norepinephrine Bitartrate 8 mg in 250 mls @ 0 mls/hr 03/05/25 08:15 03/05/25 08:27 Levophed IVCONT 0.07 mcg/kg/min .Q0M MAYRA 11.25 mls/hr Protocol Titration Per Protocol Iohexol 100 ml 03/05/25 09:47 03/05/25 09:47 Iohexol 350 Mg/Ml 100 Ml Infus..Btl IV 03/05/25 09:48 85 ml ONCE ONE Administration Ketamine HCl 80 mg 03/05/25 06:44 03/05/25 06:52 Ketamine Hcl/Ns 50 Mg/5 Ml Syringe IVPUSH 03/05/25 06:45 80 mg ONCE ONE Administration Ketamine HCl 80 mg 03/05/25 06:45 03/05/25 06:52 Ketamine Hcl/Ns 50 Mg/5 Ml Syringe IVPUSH 03/05/25 06:46 80 mg ONCE ONE Administration Naloxone HCl 2 mg 03/05/25 05:59 03/05/25 06:11 Naloxone Hcl 2 Mg/2 Ml Syringe IVPUSH 03/05/25 06:00 2 mg ONCE ONE Administration Rocuronium Willard 40 mg 03/05/25 06:42 03/05/25 06:51 Rocuronium Willard 50 Mg/5 Ml Vial IVPUSH 03/05/25 06:43 40 mg ONCE ONE Administration Rocuronium Willard 40 mg 03/05/25 06:51 03/05/25 06:55 Rocuronium Willard 50 Mg/5 Ml Vial IVPUSH 03/05/25 06:52 40 mg ONCE ONE Administration Rocuronium [place]ard 50 mg 03/05/25 08:47 03/05/25 08:52 Rocuronium Willard 50 Mg/5 Ml Vial IVPUSH 03/05/25 08:48 50 mg ONCE ONE Administration Medical Decision Making Medical Decision Making [facility] Narrative: 59-year-old female with a history of COPD oxygen dependent on 5-6 L via nasal cannula, diabetes, opiate use disorder, diabetes, community-acquired pneumonia, methadone dependence, hepatitis-C, pulmonary edema, hypertension, hypothyroidism who brought to emergency department by ambulance for altered mental status with a reported fall last night at around 19:00 hours with no other information available. On presentation the patient appeared ill. When I evaluated the patient she was altered, not responding to verbal questions and minimally responsive to painful stimuli. Stacia's tachypneic with respiratory rate of 28 and otherwise normal vital signs. Pupils were pinpoint. Patient has bilateral periorbital ecchymosis and ecchymosis to her nasal bridge. Patient also had an elevated respiratory rate of 28 and appeared to be dyspneic. 08:01 Differential diagnosis: ?Includes but is not limited to chronic lung disease exacerbation, CO2 retention, pneumonia, aspiration pneumonia closed head injury, skull fracture, intracranial bleed, cervical fracture, facial fractures, pneumonia, anemia, electrolyte abnormalities Course: 08:01 My interpretation patient's laboratory evaluation is as follows: WBC elevated 12,000. H&H elevated 14.8 and 51.2-most likely secondary to chronic hypoxia. Bicarb elevated 41. Glucose elevated 137. Troponin below detectable limits. TSH elevated 16.18, T4 pending. Ethanol below detectable limits. Drug screen urine urinalysis pending collection. Ammonia elevated 89. Lactic acid elevated 5.4-most likely secondary to hyperventilation during cardiac arrest. Initially, the patient appeared to be significant altered with tachypnea, given her pinpoint pupils in her history of opiate use disorder and taking methadone, she was given Narcan 2 mg IV. Patient became more awake, she was moaning Eduardo still was altered. The patient then developed further respiratory distress while I was in the room re-evaluated her she lost her pulse and was in a narrow complex tachycardia and was in PEA. Code blue was called. CPR was started. Two interest in his lines were established into IV guided lines were established by nursing. Patient was given ketamine 80 mg IV and rocuronium 40 mg interosseous however it was unclear if the patient got these medications therefore these doses were repeated. On my initial attempt to intubate the patient she had significant secretions and emesis in her posterior pharynx with swelling of her posterior pharyngeal tissue. The patient then began actively vomiting which was suctioned using and car catheter. Patient's respirations were supported by bag-valve mask and her O2 saturation remained above 92%. Patient was then intubated on the 3rd attempt with a 7.5 endotracheal tube. I was able to visualize the tube going through the cords. Patient had CPR for proximally 3 minutes and had return of spontaneous circulation. I placed an NG-tube low wall suction and the patient had a proximally 400 cc of yellowish thick material suctioned from her stomach. Chest x-ray revealed the endotracheal tube was roughly 5 cm above the jeffry, respiratory therapy advance the tube. NG tube appeared to be in place. Patient's abdomen appeared to be very distended therefore I changed out the NG tube and ordered a two view abdomen x-ray. The initial chest x-ray is concerning for possible right lower lobe infiltrate and I suspect that the patient may have an aspiration pneumonia. The patient is penicillin allergic therefore I ordered cefepime 2 g IV. 08:15 The patient became hypotensive, I ordered a norepinephrine drip as per protocol. I also ordered a 30 cc/kilogram normal saline bolus. The patient is obese with a an elevated BMI of 32 point 6 kilograms/meters squared therefore I ordered the normal saline bolus based on the patient's ideal body weight. Patient is now moving, given her hypotension however I did not go up on the propofol drip and ordered fentanyl 100 mcg IV x2 doses. I also ordered norepinephrine drip. 08:43 hours I did discuss the patient's presentation with our covering usability architect, Dr. Lois Wilhelm and she did accept the patient into the ICU for further treatment. She requested that we do a scan of the patient's chest abdomen pelvis prior to bringing the patient to the ICU, therefore I ordered these studies. Patient had a good response with the IV ketamine. Patient was given rocuronium 50 mg IV prior to the study to ensure that we can get good imaging. She remains on the propofol drip for sedation. 10:27 I did discuss the patient's CT pulmonary angio PE protocol result with the covering radiologist, Dr. Navdeep Arguello. The scan was positive for segmental and subsegmental pulmonary emboli in the left upper lobe with mild to moderate burden present with a mild amount of right heart strain. Patient was also noted to have significant emphysema with no acute pneumonia. CT abdomen pelvis IV contrast was limited however no clear obstruction was noted and radiologist noted fluid-filled, slightly distended small bowel with slight distention of the large bowel. The radiologist felt that this has more consistent with a an ileus. I did communicate these results to the covering usability architect, Dr. Wilhelm. Differential Diagnosis Differential Diagnoses: The differential diagnosis associated with the presentation includes (See above) Admission/Observation Consideration of admission/observation: Escalation of care including admission/observation considered (Yes) Consult Healthcare Provider Management of the patient was discussed with: Buccaro (Air Analysis Engineering Technician) Lab Data MDM Lab Attestation statement: I reviewed the patient's lab results. 03/05/25 10:22 03/05/25 06:22 Labs: Lab Results 03/05/25 03/05/25 03/05/25 Range/Units 05:45 06:02 06:22 WBC 12.0 H (4.8-10.8) X10*3/uL RBC 5.36 (4.20-5.50) X10*6/uL Hgb 14.8 (12.0-16.0) g/dl Hct 51.2 H (37.0-47.0) % MCV 95.5 (80.0-98.0) fL MCH 27.6 (27.0-33.0) pg MCHC 28.9 L (31.0-35.0) g/dl RDW 14.8 (11.0-16.0) % Plt Count 164 (160-400) X10*3/uL MPV 10.8 (9.4-12.3) fL Immature Gran % (Auto) 0.8 H (0.0-0.4) % Neut % (Auto) 53.3 (45-73) % Lymph % (Auto) 39.9 (20-40) % [place] % (Auto) 3.7 (2-11) % Eos % (Auto) 1.7 (0-4) % Baso % (Auto) 0.6 (0-2) % Lymph # (Auto) 4.8 (1.2-4.9) X10*3/uL [place] # (Auto) 0.5 (0.1-1.2) X10*3/uL Eos # (Auto) 0.2 (0.0-0.4) X10*3/uL Baso # (Auto) 0.1 (0.0-0.2) X10*3/uL Abs Immat Gran (auto) 0.10 H (0.00-0.03) X10*3/uL Absolute Neuts (auto) 6.4 (2.0-8.3) x10*3/uL Absolute Nucleated RBC 0.020 H (0.0-0.012) X10*3/uL Nucleated RBC % (auto) 0.2 (0.0-0.2) /100WBC PT 11.2 (11.2-13.5) SEC INR 0.9 (0.9-1.1) APTT 30.5 (26.7-34.1) SEC O2 Saturation % ABG pH at Pt Temp (7.35-7.45) ABG pCO2 at Pt Temp (32-45) mmHg ABG pO2 at Pt Temp (83-108) mmHg ABG HCO3 (22-26) mmol/L ABG Base Excess (Actual) mmol/L Sodium 143 (135-145) mmol/L Potassium 4.4 (3.3-5.1) mmol/L Chloride 94 L (96-108) mmol/L Carbon Dioxide 41 H* D (22-29) mmol/L Anion Gap 12 (12-20) BUN 8 L (9-16) mg/dL Creatinine 0.66 (0.5-1.4) mg/dL Estim Creat Clear Calc 102.4 Estimated GFR > 60 Random Glucose 137 H (60-115) mg/dL Lactic Acid 5.4 H* (0.5-2.0) mmol/L Calcium 9.4 D (8.4-10.2) mg/dL Magnesium 2.3 (1.6-2.6) mg/dL Total Bilirubin 0.4 (0.0-1.0) mg/dL AST 19 (5-31) U/L ALT 14 (0-31) U/L Alkaline Phosphatase 93 (39-117) U/L Ammonia 89 H (13-55) umol/L Total Creatine Kinase 75 (26-140) U/L Troponin I High Sens < 2.7 (<3.5-17.0) ng/L Total Protein 7.6 (6.5-8.0) g/dL Albumin 4.3 (3.5-5.0) g/dL Lipase 36 (8-78) U/L TSH 16.18 H (0.32-4.0) uIU/mL Free T4 0.66 L (0.71-1.85) ng/dL Urine Color Urine Appearance Urine pH (5.0-9.0) Ur Specific [place] (1.005-1.025) Urine Protein (Neg-Trace) mg/dL Urine Glucose (UA) (Negative) mg/dL Urine Ketones (Negative) mg/dL Urine Blood (Negative) Urine Nitrite (Negative) Ur Leukocyte Esterase (Negative) Urine RBC (0-2) /HPF Urine WBC (0-5) /HPF Ur Squamous Epith Cells (0-2) /HPF Urine Bacteria (None Seen) Hyaline Casts (0-2) /LPF Urine Opiates Screen (Not Detect) Ur Buprenorphine Scrn (Not Detect) ng/mL Ur Oxycodone Screen (Not Detect) ng/mL Urine Methadone Screen (Not Detect) ng/mL Urine Fentanyl Screen (Not Detect) Ur Barbiturates Screen (Not Detect) Ur Phencyclidine Scrn (Not Detect) Ur Amphetamines Screen (Not Detect) U Benzodiazepines Scrn (Not Detect) Urine Cocaine Screen (Not Detect) U Marijuana (THC) Screen (Not Detect) Ethyl Alcohol < 10 mg/dL 03/05/25 03/05/25 Range/Units 07:49 08:01 WBC (4.8-10.8) X10*3/uL RBC (4.20-5.50) X10*6/uL Hgb (12.0-16.0) g/dl Hct (37.0-47.0) % MCV (80.0-98.0) fL MCH (27.0-33.0) pg MCHC (31.0-35.0) g/dl RDW (11.0-16.0) % Plt Count (160-400) X10*3/uL MPV (9.4-12.3) fL Immature Gran % (Auto) (0.0-0.4) % Neut % (Auto) (45-73) % Lymph % (Auto) (20-40) % [place] % (Auto) (2-11) % Eos % (Auto) (0-4) % Baso % (Auto) (0-2) % Lymph # (Auto) (1.2-4.9) X10*3/uL [place] # (Auto) (0.1-1.2) X10*3/uL Eos # (Auto) (0.0-0.4) X10*3/uL Baso # (Auto) (0.0-0.2) X10*3/uL Abs Immat Gran (auto) (0.00-0.03) X10*3/uL Absolute Neuts (auto) (2.0-8.3) x10*3/uL Absolute Nucleated RBC (0.0-0.012) X10*3/uL Nucleated RBC % (auto) (0.0-0.2) /100WBC PT (11.2-13.5) SEC INR (0.9-1.1) APTT (26.7-34.1) SEC O2 Saturation 99.0 % ABG pH at Pt Temp 7.33 L (7.35-7.45) ABG pCO2 at Pt Temp 76 H* (32-45) mmHg ABG pO2 at Pt Temp 321 H (83-108) mmHg ABG HCO3 41 H (22-26) mmol/L ABG Base Excess (Actual) 10.9 mmol/L Sodium (135-145) mmol/L Potassium (3.3-5.1) mmol/L Chloride (96-108) mmol/L Carbon Dioxide (22-29) mmol/L Anion Gap (12-20) BUN (9-16) mg/dL Creatinine (0.5-1.4) mg/dL Estim Creat Clear Calc Estimated GFR Random Glucose (60-115) mg/dL Lactic Acid (0.5-2.0) mmol/L Calcium (8.4-10.2) mg/dL Magnesium (1.6-2.6) mg/dL Total Bilirubin (0.0-1.0) mg/dL AST (5-31) U/L ALT (0-31) U/L Alkaline Phosphatase (39-117) U/L Ammonia (13-55) umol/L Total Creatine Kinase (26-140) U/L Troponin I High Sens (<3.5-17.0) ng/L Total Protein (6.5-8.0) g/dL Albumin (3.5-5.0) g/dL Lipase (8-78) U/L TSH (0.32-4.0) uIU/mL Free T4 (0.71-1.85) ng/dL Urine Color Yellow Urine Appearance Clear Urine pH 6.5 (5.0-9.0) Ur Specific [place] 1.015 (1.005-1.025) Urine Protein 300 (3+) H (Neg-Trace) mg/dL Urine Glucose (UA) 500 H (Negative) mg/dL Urine Ketones Negative (Negative) mg/dL Urine Blood Moderate (2+) H (Negative) Urine Nitrite Negative (Negative) Ur Leukocyte Esterase Negative (Negative) Urine RBC 11-20 H (0-2) /HPF Urine WBC 0-5 (0-5) /HPF Ur Squamous Epith Cells 0-2 (0-2) /HPF Urine Bacteria None Seen (None Seen) Hyaline Casts 0-2 (0-2) /LPF Urine Opiates Screen Not Detected (Not Detect) Ur Buprenorphine Scrn Not Detected (Not Detect) ng/mL Ur Oxycodone Screen Not Detected (Not Detect) ng/mL Urine Methadone Screen Positive H (Not Detect) ng/mL Urine Fentanyl Screen Not Detected (Not Detect) Ur Barbiturates Screen Not Detected (Not Detect) Ur Phencyclidine Scrn Not Detected (Not Detect) Ur Amphetamines Screen Not Detected (Not Detect) U Benzodiazepines Scrn Not Detected (Not Detect) Urine Cocaine Screen Not Detected (Not Detect) U Marijuana (THC) Screen Not Detected (Not Detect) Ethyl Alcohol mg/dL Independent Interpretation I performed an independent interpretation of an: EKG Interpretation: My independent interpretation patient's 12 EKG done on 03/05/2025 at 05:58 hours is as follows: Normal sinus rhythm with a rate of 93, normal WI interval, QRS duration QTC interval, no ST segment elevation, no ST segment depression, no significant T-wave abnormalities, no PACs, no PVCs. My independent interpretation of the patient's one-view chest x-ray is as follows: Right lower lobe infiltrate, endotracheal tube is 5 cm above the jeffry. Repeat chest x-ray reveals that the tube is in a good position. My interpretation of the one-view abdominal flat plate x-ray is as follows: Significant amount of bowel gas in both the large and small bowel. Radiology Impression Discussion of test interpretation with radiology: I have reviewed the radiologist's reading. Radiologist Impression: CT head/brain wo IV con IMPRESSION: No visible fractures. Soft tissue contusion, forehead. No acute fracture, bony calvarium. No acute intracranial hemorrhage. Electronically signed by: Jerman Flores MD 03/05/2025 08:[address] cervical spine wo IV con IMPRESSION: Multilevel cervical spondylosis pronounced at C5-6 and C6-7 without acute fracture or trauma-related listhesis. Acute on chronic left saphenous sinus disease. Centrilobular and paraseptal emphysematous changes. Fleischner guidelines were followed. Electronically signed by: Jerman Flores MD 03/05/2025 08:[address] facial bones wo IV con IMPRESSION: Acute comminuted displaced nasal bone fractures. Fracture anterior nasal spine spine maxilla. Acute on chronic paranasal sinus disease.. Electronically signed by: Jerman Flores MD 03/05/2025 08:16 AM XR chest 2V IMPRESSION: Cardiomegaly. Persistent bibasilar opacities, compatible with atelectasis or pneumonia. Continued follow-up is recommended to document resolution. Electronically signed by: Jackson Mott MD 01/31/2025 11:46 AM EST Procedures Procedure Narrative Procedure Narrative: Oral gastric tube insertion: Initially placed an orogastric tube without any difficulty, proximally 400 cc of thick yellowish gastric material was suctioned out of the tube. Patient appeared to be more distended therefore I changed out the tube and put in an 18 Italian endotracheal tube, position was checked with auscultation and gastric contracts was aspirated from the tube. Tube was also checked by repeat chest x-ray and abdominal x-rays, tip of the tube appears to be in the stomach. Intubation Intubation Type:: Endotracheal Tube Insertion Intubation Date:: 03/05/25 Time out performed: No sedative: Ketamine Mg Given: 80 paralytic: Rocuronium Mg Given: 40 Laryngoscope: other Assist Device Used: fiber optic device (Craig scope with 3.0 blade) ET Tube Size: 7.5 ET Tube Uncuffed: Yes Tube Secured Depth (cm): 26 Tube Secured Location: lips Tube Placement Confirmation: visualized tube passing through cords and confirmation by capnometry (End-tidal CO2 cap had a positive color change) Additional Comments: On initial intubation the patient had a large amount of emesis in the posterior pharynx, the patient's posterior pharyngeal tissue was swollen and edematous. That has unable to pass the endotracheal tube through the cords on the 1st attempt, 2nd attempt was aborted secondary to significant amount of emesis in the posterior pharynx and on the 3rd attempt the patient was easily intubated with a 7.5 endotracheal tube, visualized it passing through the cords. Endotracheal tube position was checked with chest x-ray and needed to be advanced several cm by respiratory therapy. NG tube appears to be in his stomach. Critical Care Time Critical Care Time Critical Care Time: Yes Total Critical Care Time: 120 Attestation: Critical Care: The patient was critically ill with a high probability of imminent or life threatening deterioration. I spent greater than 30 minutes of discontinuous time evaluating the patient,delivering critical care at the bedside, discussing and evaluating pertinent data with consultants. Critical care time does not include time spent performing separately billable procedures or teaching. Total time spent performing critical care was 120 minutes. Discharge Plan Discharge Clinical Impression: Fall, Aspiration pneumonia, Respiratory failure requiring intubation, PEA (Pulseless electrical activity), Closed head injury, Closed fracture nasal bone, Serum ammonia increased Patient Disposition: Admitted As Inpatient Discharge Date/Time: 03/05/25 09:52
--- OUTSIDE RECORDS SUMMARY | 2025-03-05 06:40 | XMS_ITS | Encounter Summary ---
Author Organization [employer] Address [address] [facility] [address] [place] [address] Care Team Providers Care Methods Specialist Engineer Name Role Phone Cathleen Sears MD Primary Care Provider [phone] Tad Baez PharmD Unavailable Sylwia Camarena RN Unavailable [phone] Josey Joy Unavailable Reason for Visit * Reason Comments Care Management C3CM- FOLLOW UP CALL - LVM Encounter Details Date Type Department Care Team ([facility] st Contact Info) Description 03/04/2025 Patient Outreach [facility] MEDICINE [address] [place], [place] [phone] Cathleen Sears MD [address] [place], [place] [phone] Care Management (C3CM- FOLLOW UP CALL - LVM) Social History Tobacco Use Types Packs/Day Years Used Date Smoking Tobacco: Some Days Cigarettes 1.9 36.9 Started: 1988 Passive Smoke Exposure: Current Smokeless [...] Answer Date Recorded Patient Health Questionnaire-9 Score 20 02/18/2025 Patient Health Questionnaire-9 Score 20 02/18/2025 Last PHQ-9: Questionnaire Data Not on file 1 04/20/2024 Housing Stability Answer Date Recorded What is [...] Date Recorded Patient Health Questionnaire-2 Score 6 02/18/2025 Internet Access Answer Date Recorded Internet Access [...] Progress Notes * Sylwia Camarena RN - 03/04/2025 11:51 AM EST CM Sylwia Camarena RN placed outbound call to patient for follow up call. No answer at this time. LVM introducing herself from [facility] CM Department. Requested call back. CM reinforced direct contact information or CHW for any additional questions or concerns. Education provided on [facility] Ur[facility] Care located in Lobby of [facility]. Patient provided with after-hours line for [facility], , which offer night time triage service and option to transfer to oncall provider if needed. CM will attempt another follow up call within 10 days. documented in this encounter Plan of Treatment Upcoming Encounters Date Type Department Care Team (Late st Contact Info) Description 03/19/2025 11:15 AM EST Office Visit [facility] MEDICINE [address] [place] [address] Cathleen Sears MD [address] [place] [address] 05/10/2025 2:00 PM EST Office Visit [facility] OPTOMETRY [address] [place] [address] Silvia Cameron, OD [address] [place] [address] documented as of this encounter Goals Goal Patient Goal Type Associated Problems Recent Progress Patient-Stated? Author Help patients manage their type 2 diabetes Care Plan Help patients manage their type 2 diabetes No Weekly blood pressure task Care Plan Weekly blood pressure task No Help patients manage their type 2 diabetes Care Plan Help patients manage their type 2 diabetes No Patient has chronic kidney disease Care Plan Patient has chronic kidney disease No Weekly blood pressure task Care Plan Weekly blood pressure task No Patient has chronic kidney disease Care Plan Patient has chronic kidney disease No Weekly blood pressure task Care Plan Weekly blood pressure task No Josey Joy Weekly blood pressure task Care Plan Weekly blood pressure task No Josey Joy Patient has chronic kidney disease Care Plan Patient has chronic kidney disease No Josey Joy Patient has chronic kidney disease Care Plan Patient has chronic kidney disease No Josey Joy Weekly blood pressure task Care Plan Weekly blood pressure task No Sylwia Camarena, RN Weekly blood pressure task Care Plan Weekly blood pressure task No Sylwia Camarena, RN Patient has chronic kidney disease Care Plan Patient has chronic kidney disease No Sylwia Camarena, RN Patient has chronic kidney disease Care Plan Patient has chronic kidney disease No Sylwia Camarena RN Weekly blood pressure task Care Plan Weekly blood pressure task No Josey Joy Weekly blood pressure task Care Plan Weekly blood pressure task No Josey Joy Patient has chronic kidney disease Care Plan Patient has chronic kidney disease No Josey Joy Patient has chronic kidney disease Care Plan Patient has chronic kidney disease No Josey Joy Weekly blood pressure task Care Plan Weekly blood pressure task No Teressa Perez MA Weekly blood pressure task Care Plan Weekly blood pressure task No Teressa Perez MA Patient has chronic kidney disease Care Plan Patient has chronic kidney disease No Teressa Perez MA Patient has chronic kidney disease Care Plan Patient has chronic kidney disease No Teressa Perez MA Weekly blood pressure task Care Plan Weekly blood pressure task No Binu Kasper MD Weekly blood pressure task Care Plan Weekly blood pressure task No Binu Kasper MD Patient has chronic kidney disease Care Plan Patient has chronic kidney disease No Binu Kasper MD Patient has chronic kidney disease Care Plan Patient has chronic kidney disease No Binu Kasper MD Weekly blood pressure task Care Plan Weekly blood pressure task No Josey Joy Weekly blood pressure task Care Plan Weekly blood pressure task No Josey Joy Patient has chronic kidney disease Care Plan Patient has chronic kidney disease No Josey Joy Patient has chronic kidney disease Care Plan Patient has chronic kidney disease No Josey Joy Weekly blood pressure task Care Plan Weekly blood pressure task No Marie Monroe MA Weekly blood pressure task Care Plan Weekly blood pressure task No Marie Monroe MA Patient has chronic kidney disease Care Plan Patient has chronic kidney disease No Marie Monroe MA Patient has chronic kidney disease Care Plan Patient has chronic kidney disease No Marie Monroe MA Weekly blood pressure task Care Plan Weekly blood pressure task No Sylwia Camarena RN Weekly blood pressure task Care Plan Weekly blood pressure task No Sylwia Camarena RN Patient has chronic kidney disease Care Plan Patient has chronic kidney disease No Sylwia Camarena, BRIANNA Patient has chronic kidney disease Care Plan Patient has chronic kidney disease No Sylwia Camarena RN Weekly blood pressure task Care Plan Weekly blood pressure task No Sylwia Camarena RN Weekly blood pressure task Care Plan Weekly blood pressure task No Sylwia Camarena, BRIANNA Patient has chronic kidney disease Care Plan Patient has chronic kidney disease No Sylwia Camarena RN Patient has chronic kidney disease Care Plan Patient has chronic kidney disease No Sylwia Camarena RN Weekly blood pressure task Care Plan Weekly blood pressure task No Josey Joy Weekly blood pressure task Care Plan Weekly blood pressure task No Josey Joy Patient has chronic kidney disease Care Plan Patient has chronic kidney disease No Josey Joy Patient has chronic kidney disease Care Plan Patient has chronic kidney disease No Josey Joy documented as of this encounter Visit Diagnoses Not on filedocumented in this encounter Additional Health Concerns Active Problems Noted Date Diagnosed Date Help patients manage their type 2 diabetes 02/06 Weekly blood pressure task 02/06/2025 Help patients manage their type 2 diabetes 02/06 Patient has chronic kidney disease 02/06/2025 Weekly blood pressure task 02/06/2025 Patient has chronic kidney disease 02/06/2025 Weekly blood pressure task 02/11/2025 Weekly blood pressure task 02/11/2025 Patient has chronic kidney disease 02/11/2025 Patient has chronic kidney disease 02/11/2025 Weekly blood pressure task 02/12/2025 Weekly blood pressure task 02/12/2025 Patient has chronic kidney disease 02/12/2025 Patient has chronic kidney disease 02/12/2025 Weekly blood pressure task 02/13/2025 Weekly blood pressure task 02/13/2025 Patient has chronic kidney disease 02/13/2025 Patient has chronic kidney disease 02/13/2025 Weekly blood pressure task 02/13/2025 Weekly blood pressure task 02/13/2025 Patient has chronic kidney disease 02/13/2025 Patient has chronic kidney disease 02/13/2025 Weekly blood pressure task 02/14/2025 Weekly blood pressure task 02/14/2025 Patient has chronic kidney disease 02/14/2025 Patient has chronic kidney disease 02/14/2025 Weekly blood pressure task 02/14/2025 Weekly blood pressure task 02/14/2025 Patient has chronic kidney disease 02/14/2025 Patient has chronic kidney disease 02/14/2025 Weekly blood pressure task 02/15/2025 Weekly blood pressure task 02/15/2025 Patient has chronic kidney disease 02/15/2025 Patient has chronic kidney disease 02/15/2025 Weekly blood pressure task 02/18/2025 Weekly blood pressure task 02/18/2025 Patient has chronic kidney disease 02/18/2025 Patient has chronic kidney disease 02/18/2025 Weekly blood pressure task 03/04/2025 Weekly blood pressure task 03/04/2025 Patient has chronic kidney disease 03/04/2025 Patient has chronic kidney disease 03/04/2025 Weekly blood pressure task 03/04/2025 Weekly blood pressure task 03/04/2025 Patient has chronic kidney disease 03/04/2025 Patient has chronic kidney disease 03/04/2025 Assessment Noted Time PHQ-9 Depression Total Score: 20 025 2:26 PM EST documented as of this encounter Care Teams Methods Specialist Engineer Relationship Specialty Start Date End Date Cathleen Sears MD [address] [place] [phone] PCP - General Family Medicine 03/28/18 Tad Baez, LaurenD [address] [place] [address] Pharmacist Internal Medicine 03/16/24 Sylwia Camarena, BRIANNA [address] [place] [address] Registered Nurse Family Medicine 01/21/25 Josey Joy 01/21/25 [facility] Department 05/04/17 documented as of this encounter
--- OUTSIDE RECORDS SUMMARY | 2025-03-05 06:40 | XMS_ITS | Clinical Summary ---
Author Organization [employer] Address [address] [place] [address] Care Team Providers Care Systems Support Officer Name Role Phone Cathleen Mo MD Primary Care Provider [phone] Tad Baez PharmD Unavailable Sylwia Camarena RN Unavailable [phone] Josey Joy Unavailable Allergies Active Allergy [...] mg by mouth Once per day. 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 Active Alcohol Swabs (Alcohol Prep) 70 % padsIndications:T ype 2 diabetes mellitus without complication, without long-term current use of insulin ([facility]) USE DIRECTED TWICE DAILY 100 each 11 Active glucose blood (FREESTYLE LITE) test stripIndications: Type 2 diabetes mellitus without complication, without long-term current use of insulin ([facility]) TEST BLOOD SUGAR TWICE DAILY 100 strip Active TRUEplus Lancets 33G miscIndications:T ype 2 diabetes mellitus without complication, without long-term current use of insulin ([facility]) TEST BLOOD SUGAR TWICE DAILY 100 each 11 Active acetaminophen (Tylenol Extra Strength) 500 MG tabletIndications :COPD exacerbation (CMS/HCC) ([facility]) Take 2 tablets (1,000 mg) by mouth every 8 (eight) hours if needed for mild pain or moderate pain. 180 tablet Active Ventolin HFA 108 (90 Base) MCG/ACT [...] HOURS DIRECTED NEEDED FOR PAIN 30 patch 02/19/20 11:28 AM EST Active ipratropium-albut lesley (Duo-Neb) 0.5-2.5 mg/3 mL nebulizer solution INHALE 1 AMPULE USING A NEBULIZER FOUR TIMES DAILY NEEDED FOR WHEEZING OR SHORTNESS OF BREATH 180 mL 1 02/20/20 12:12 PM EST Active furosemide (Lasix) 20 MG tablet TAKE 1 TABLET BY MOUTH TWICE DAILY 180 tablet 1 02/19/20 11:28 AM EST Active levothyroxine (Synthroid, Levoxyl) 25 MCG tabletIndications :Other specified hypothyroidism TAKE 1 TABLET BY MOUTH EVERY MORNING 90 tablet 1 Active cetirizine (ZyrTEC) 10 MG tablet TAKE 1/2 TABLET BY MOUTH EVERY DAY 45 tablet 1 02/19/20 11:28 AM EST Active rosuvastatin (Crestor) 20 MG tablet TAKE 1 TABLET BY MOUTH AT BEDTIME 90 tablet 3 Active celecoxib (CeleBREX) 100 MG capsule Take 1 capsule (100 mg) by mouth if needed in the morning and at bedtime for mild pain. 60 capsule 2 02/19/20 11:28 AM EST 025 2024 Active Breo Ellipta 200-25 MCG/ACT aerosol powder inhale 1 PUFF BY MOUTH EVERY DAY RINSE MOUTH AFTER USING. 28 each 02/19/20 11:28 AM EST Active fluticasone (Flonase) 50 MCG/ACT nasal spray INSTILL 2 SPRAYS IN EACH NOSTRIL ONCE DAILY 48 g 02/19/20 11:28 AM EST 025 Active celecoxib (CeleBREX) 100 MG capsule Take 1 capsule by mouth if needed in the morning and at bedtime for mild pain. Active metFORMIN XR (Glucophage-XR) 500 MG 24 hr tablet TAKE 1 TABLET BY MOUTH TWICE DAILY AT NOON AND IN THE EVENING WITH BREAKFAST AND WITH DINNER DO NOT BREAK, CRUSH, DISSOLVE OR CHEW 180 tablet 3 02/19/20 11:28 AM EST Active Varenicline Tartrate, Starter, 0.5 MG X 11 & 1 MG X 42 tablet therapy pack Take 1 tablet by mouth 2 times daily. 0.5 mg once daily for 3 days, then 0.5 mg twice daily for 3 days, then 1 mg twice daily. 1 each 024 2024 Discontinued(M ed list cleanup (will not trigger notification to Pharmacy)) hydrocortisone (Anusol-HC) 2.5 % rectal cream INSERT 1 APPLICATORFUL RECTALLY TWICE DAILY FOR HEMORRHOIDS 2024 Discontinued(M ed list cleanup (will not trigger notification to Pharmacy)) metFORMIN XR (Glucophage-XR) 500 MG 24 hr tablet Take 1 tablet (500 mg) by mouth with breakfast and with evening meal. Do not crush, chew, or split. 180 tablet 3 2024 Discontinued nicotine polacrilex (Nicorette) 4 MG gumIndications:To bacco dependence Chew 1 piece of gum every 1-2 hours as needed for cravings. 110 each 024 2024 Discontinued(M ed list cleanup (will not trigger notification to Pharmacy)) methocarbamol (Robaxin) 750 MG tablet Take 1 tablet (750 mg) by mouth every 8 (eight) hours if needed for muscle spasms (pain). 45 tablet 1 2024 Discontinued(M ed list cleanup (will not trigger notification to Pharmacy)) guaiFENesin (Mucinex) 600 MG 12 hr tablet Take 1 tablet (600 mg) by mouth if needed in the morning and at bedtime for cough or congestion. Do not crush, chew, or split. 30 tablet 2024 Discontinued(M ed list cleanup (will not trigger notification to Pharmacy)) hydrocortisone 2.5 % cream Apply pea sized amount to skin bid for 1 week 15 g 2024 Discontinued(M ed list cleanup (will not trigger notification to Pharmacy)) econazole nitrate 1 % cream Apply topically Once per day. 30 g 2 025 2024 Discontinued(M ed list cleanup (will not trigger notification to Pharmacy)) nystatin (Mycostatin) 428277 UNIT/GM powderIndications :Intertrigo Apply topically 2 times daily. 30 g 025 2024 Discontinued(M ed list cleanup (will not trigger notification to Pharmacy)) predniSONE (Deltasone) 20 MG tabletIndications :Asthma Take 2 tablets (40 mg) by mouth Once per day for 3 days, THEN 1 tablet (20 mg) Once per day for 2 days, THEN 0.5 tablets (10 mg) Once per day for 2 days. 9 tablet 02/16/20 4:34 PM EST 025 2024 Active Problems Problem Noted Date Diagnosed Date Hospital discharge follow-up 02/14/2025 Assessment & Plan (02/14/2025 2:42 PM EST): Patient of Dr Mo, Here for a HDF. Pt was admitted to [facility] from 01/28/25 until 01/31/25. Patient with history of COPD, hypertension, hepatitis C, hypothyroidism, and substance abuse on methadone presented to the ER with shortness of breath. Admitted to the ICU for acute on chronic hypoxic and hypercapnic respiratory failure, initially requiring BiPAP support. Chest x-ray showed basilar opacity. Treated with IV steroid and empiric doxycyline. Pt was eventually discharged home on oral prednisone taper and to complete 7 days of doxycyline. To Follow up with pulmonology. On exam, there are mild expiratory wheezes. Reports compliance with her inhalers Breo and Incruse. Uses Ventolin PRN and is Oxygen dependent - Recent hospitalization reviewed. No evidence of active infection. No fever. No purulent sputum. Cough attributed to pulmonary tightness. - Prescribed prednisone 20 mg tablets, 2 tablets daily for 3 days, then 1 tablet daily for 2 days, then half tablet daily for 2 days. Pharmacy order placed for immediate pickup. Reinforced use of inhalers and oxygen as previously directed. Noted upcoming appointment with fructose loader on February 15, 2025. 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 to clay mine cutting machine operator as requested by patient's caregiver - prescribe a cane to offload the weight Assessment & Plan (10/12/2023 11:52 AM EDT): - s/p fall - X-ray on 10/04/23 shows mildly displaced fracture of 2nd distal phalanx - continue off weight, ice, elevate leg, and APAP prn - refer to clay [employer] cutting machine operator as requested by patient's caregiver Popliteal cyst, right 10/02/2023 Assessment & Plan (10/11/2023 11:43 AM EDT): -seen on US during recent admission -repeat US Assessment & Plan (10/02/2023 4:46 PM EDT): -seen on US during recent admission -repeat US Abdominal bloating 09/27/2023 Centrilobular emphysema 09/27/2023 Overview (06/16/2024): - Airport Maintenance Chief: Ashly, last seen on 06/07/24 - Severe [...] supplemental oxygen 4L-6L; recommended to discuss with fructose loader regarding to oxygen concentrator. - Anticipate to start BiPAP 21/7 mmHg - Strongly encouraged to get COVID vaccine - Keep appt with fructose loader and resume pulmonary rehab. -Treatment Hx: Budesonide - Formoterol (Symbicort) was changed to Wixela in Jan 2023. Plan to try fluticasone / umeclidinium / vilanterol (Trelegy) per fructose loader. Colon cancer screening 09/27/2023 Assessment & Plan [...] Plan (12/29/2024 11:50 PM EDT): Following with [facility], last seen in Nov 2023 FIB-4 index 1.78 Check the status of US (advised to call the office with home care attendant) Avoid hepatotoxic drugs Maintain non-alcohol life Follow up with GI as scheduled Assessment & Plan (06/16/2024 6:01 AM EDT): Following with [facility], last seen in Nov 2023 FIB-4 index 1.78 Check the status of US (advised to call the office with home care attendant) Avoid hepatotoxic drugs Maintain non-alcohol life Follow up with GI as scheduled Assessment & Plan (05/03/2024 5:15 PM EST): Following with [facility], last seen in Nov 2023 FIB-4 index 1.78 Check the status of US (advised to call the office with home care attendant) Avoid hepatotoxic drugs Maintain non-alcohol life Follow up with GI as scheduled Assessment & Plan (03/26/2024 5:03 PM EST): Following with [facility], last seen in Nov 2023 FIB-4 index 1.78 Check the status of US (advised to call the office with home care attendant) Avoid hepatotoxic drugs Maintain non-alcohol life Follow up with GI as scheduled Assessment & Plan (02/06/2024 5:37 AM EST): Following with [facility], last seen in Nov 2023 FIB-4 index 1.78 Check the status of US (advised to call the office with home care attendant) Avoid hepatotoxic drugs Maintain non-alcohol life Follow up with GI as scheduled Assessment & Plan (11/29/2023 11:32 AM EDT): Following with [facility], last seen in May 2023 FIB-4 index 1.78 Check the status of US Avoid hepatotoxic drugs Maintain non-alcohol life Follow up with GI as scheduled Assessment & Plan (10/11/2023 11:42 AM EDT): Following with [facility], last seen in May 2023 FIB-4 index 1.78 Check the status of US Avoid hepatotoxic drugs Maintain non-alcohol life Follow up with GI as scheduled Assessment & Plan (10/02/2023 4:34 PM EDT): Following with [facility], last seen in May 2023 FIB-4 index 1.78 Check the status of US Avoid hepatotoxic drugs Maintain non-alcohol life Follow up with GI as scheduled Assessment & Plan (08/27/2023 6:55 AM EDT): Following with [facility], last seen in May 2023 FIB-4 [...] & Plan (12/31/2024 9:22 AM EDT): - Airport Maintenance Chief: Ashly, last seen on 06/07/24 - Severe [...] supplemental oxygen 4L-6L; recommended to discuss with fructose loader regarding to oxygen concentrator. - Anticipate to start BiPAP 21/7 mmHg - Strongly encouraged to get COVID vaccine - Keep appt with fructose loader and resume pulmonary rehab. -Treatment Hx: Budesonide - Formoterol (Symbicort) was changed to Wixela in Jan 2023. Plan to try fluticasone / umeclidinium / vilanterol (Trelegy) per fructose loader. Assessment & Plan (09/10/2024 8:56 AM EDT): - Airport Maintenance Chief: Ashly, last seen on 06/07/24 - Severe [...] supplemental oxygen 4L-6L; recommended to discuss with fructose loader regarding to oxygen concentrator. - Anticipate to start BiPAP 21/7 mmHg - Strongly encouraged to get COVID vaccine - Keep appt with fructose loader and resume pulmonary rehab. -Treatment Hx: Budesonide - Formoterol (Symbicort) was changed to Wixela in Jan 2023. Plan to try fluticasone / umeclidinium / vilanterol (Trelegy) per fructose loader. Assessment & Plan (06/16/2024 5:58 AM EDT): - Airport Maintenance Chief: Ashly, last seen on 06/07/24 - Severe [...] supplemental oxygen 4L-6L; recommended to discuss with fructose loader regarding to oxygen concentrator. - Anticipate to start BiPAP 21/7 mmHg - Strongly encouraged to get COVID vaccine - Keep appt with fructose loader and resume pulmonary rehab. -Treatment Hx: Budesonide - Formoterol (Symbicort) was changed to Wixela in Jan 2023. Plan to try fluticasone / umeclidinium / vilanterol (Trelegy) per fructose loader. Assessment & Plan (05/03/2024 5:14 PM EST): - Airport Maintenance Chief: Ashly, last seen on 12/29/23 - Severe [...] supplemental oxygen 4L-6L; recommended to discuss with fructose loader regarding to oxygen concentrator. - Strongly encouraged to get COVID vaccine - Keep appt with fructose loader and resume pulmonary rehab. -Treatment Hx: Budesonide - Formoterol (Symbicort) was changed to Wixela in Jan 2023. Plan to try Trelegy. Assessment & Plan (04/02/2024 6:16 AM EST): - Airport Maintenance Chief: Ashly, last seen on 11/18/23 - Severe [...] supplemental oxygen 4L-6L; recommended to discuss with fructose loader regarding to oxygen concentrator. - Strongly encouraged to get COVID vaccine - Keep appt with fructose loader and resume pulmonary rehab. -Treatment Hx: Budesonide - Formoterol (Symbicort) was changed to Wixela in Jan 2023. Plan to try Trelegy. -Since she seldom sees her [facility] fructose loader, and she is well-known to [facility] fructose loader / critical medicine teams, we discussed about transferring care to [facility]. Patient agreed with the plan initially, but decided to stay with [facility] fructose loader. Assessment & Plan (02/06/2024 5:34 AM EST): - Airport Maintenance Chief: Ashly, last seen on 11/18/23 - Severe [...] supplemental oxygen 4L-6L; recommended to discuss with fructose loader regarding to oxygen concentrator. - Strongly encouraged to get COVID vaccine - Keep appt with fructose loader and resume pulmonary rehab. -Treatment Hx: Budesonide - Formoterol (Symbicort) was changed to Wixela in Jan 2023. Plan to try Trelegy. -Since she seldom sees her [facility] fructose loader, and she is well-known to [facility] fructose loader / critical medicine teams, we discussed about transferring care to [facility]. Patient agreed with the plan initially, but decided to stay with [facility] fructose loader. Assessment & Plan (11/29/2023 11:51 AM EDT): - Airport Maintenance Chief: Ashly, last seen on 11/18/23 - Severe [...] supplemental oxygen 4L-6L; recommended to discuss with fructose loader regarding to oxygen concentrator. - Strongly encouraged to get COVID vaccine - Keep appt with fructose loader -Treatment Hx: Budesonide - Formoterol (Symbicort) was changed to Wixela in Jan 2023. Plan to try Trelegy. Assessment & Plan (10/11/2023 11:41 AM EDT): - Airport Maintenance Chief: [facility], last seen on 05/31/23 - Severe exacerbation [...] supplemental oxygen 4L-6L; recommended to discuss with fructose loader regarding to oxygen concentrator. - Strongly encouraged to get COVID vaccine - Keep appt with fructose loader -Treatment Hx: Budesonide - Formoterol (Symbicort) was changed to Wixela in Jan 2023. Plan to try Trelegy. Assessment & Plan (10/04/2023 5:21 PM EDT): - Airport Maintenance Chief: [facility], last seen on 05/31/23 - Severe exacerbation [...] supplemental oxygen 4L-6L; recommended to discuss with fructose loader regarding to oxygen concentrator. - Strongly encouraged to get COVID vaccine - Keep appt with fructose loader -Treatment Hx: Budesonide - Formoterol (Symbicort) was changed to Wixela in Jan 2023. Plan to try Trelegy. Assessment & Plan (08/23/2023 3:08 PM EDT): - Airport Maintenance Chief: Ashly, last seen on 05/31/23 - Severe [...] supplemental oxygen 4L-6L; recommended to discuss with fructose loader regarding to oxygen concentrator. - Strongly encouraged to get COVID vaccine - Keep appt with fructose loader -Treatment Hx: Budesonide - Formoterol (Symbicort) was changed to Wixela in Jan 2023. Plan to try Trelegy. Assessment & Plan (05/08/2023 6:27 AM EST): - Airport Maintenance Chief: Ashly, last seen on 01/28/23 - Acute [...] get COVID vaccine - Keep appt with fructose loader. Plan at last visit was to do a nocturnal polysomnogram with TCCO2 monitoring to evaluate for nocturnal non-invasive ventilator assessment and chest CT w/o contrast and TTE after polysomnogram Assessment & Plan (03/01/2023 6:50 AM EST): - Airport Maintenance Chief: Ashly, last seen on 01/28/23 - Severe [...] Dx COPD exacerbation, CAP, Tx azithromycin - [facility] 01/11/19-01/17/19, b/l lower lobe pneumonia, L [...] get COVID vaccine - Keep appt with fructose loader -Treatment Hx: Budesonide - Formoterol (Symbicort) was changed to Wixela in Jan 2023. Plan to try Trelegy. Gastroesophageal reflux disease 09/09/2022 Assessment & Plan (08/23/2023 3:11 PM EDT): [facility], last seen in May 2023 Continue pantoprazole and famotidine History of alcohol use disorder 09/09/2022 History of intravenous drug abuse 09/09/2022 Post-traumatic stress disorder 09/09/2022 COPD (chronic obstructive pulmonary disease) Assessment & Plan (12/31/2024 9:22 AM EDT): - Airport Maintenance Chief: Ashly, last seen on 06/07/24 - Severe [...] supplemental oxygen 4L-6L; recommended to discuss with fructose loader regarding to oxygen concentrator. - Anticipate to start BiPAP 21/7 mmHg - Strongly encouraged to get COVID vaccine - Keep appt with fructose loader and resume pulmonary rehab. -Treatment Hx: Budesonide - Formoterol (Symbicort) was changed to Wixela in Jan 2023. Plan to try fluticasone / umeclidinium / vilanterol (Trelegy) per fructose loader. Assessment & Plan (09/10/2024 8:55 AM EDT): - Airport Maintenance Chief: Ashly, last seen on 06/07/24 - Severe [...] supplemental oxygen 4L-6L; recommended to discuss with fructose loader regarding to oxygen concentrator. - Anticipate to start BiPAP 21/7 mmHg - Strongly encouraged to get COVID vaccine - Keep appt with fructose loader and resume pulmonary rehab. -Treatment Hx: Budesonide - Formoterol (Symbicort) was changed to Wixela in Jan 2023. Plan to try fluticasone / umeclidinium / vilanterol (Trelegy) per fructose loader. Assessment & Plan (06/16/2024 5:57 AM EDT): - Airport Maintenance Chief: Ashly, last seen on 06/07/24 - Severe [...] supplemental oxygen 4L-6L; recommended to discuss with fructose loader regarding to oxygen concentrator. - Anticipate to start BiPAP 21/7 mmHg - Strongly encouraged to get COVID vaccine - Keep appt with fructose loader and resume pulmonary rehab. -Treatment Hx: Budesonide - Formoterol (Symbicort) was changed to Wixela in Jan 2023. Plan to try fluticasone / umeclidinium / vilanterol (Trelegy) per fructose loader. Assessment & Plan (05/03/2024 5:06 PM EST): - Airport Maintenance Chief: Ashly, last seen on 12/29/23 - Severe [...] supplemental oxygen 4L-6L; recommended to discuss with fructose loader regarding to oxygen concentrator. - Strongly encouraged to get COVID vaccine - Keep appt with fructose loader and resume pulmonary rehab. -Treatment Hx: Budesonide - Formoterol (Symbicort) was changed to Wixela in Jan 2023. Plan to try fluticasone / umeclidinium / vilanterol (Trelegy) per fructose loader. Assessment & Plan (04/02/2024 6:16 AM EST): - Airport Maintenance Chief: Ashly, last seen on 11/18/23 - Severe [...] supplemental oxygen 4L-6L; recommended to discuss with fructose loader regarding to oxygen concentrator. - Strongly encouraged to get COVID vaccine - Keep appt with fructose loader and resume pulmonary rehab. -Treatment Hx: Budesonide - Formoterol (Symbicort) was changed to Wixela in Jan 2023. Plan to try Trelegy. -Since she seldom sees her [facility] fructose loader, and she is well-known to [facility] fructose loader / critical medicine teams, we discussed about transferring care to [facility]. Patient agreed with the plan initially, but decided to stay with [facility] fructose loader. Assessment & Plan (02/06/2024 5:33 AM EST): - Airport Maintenance Chief: Ashly, last seen on 11/18/23 - Severe [...] supplemental oxygen 4L-6L; recommended to discuss with fructose loader regarding to oxygen concentrator. - Strongly encouraged to get COVID vaccine - Keep appt with fructose loader and resume pulmonary rehab. -Treatment Hx: Budesonide - Formoterol (Symbicort) was changed to Wixela in Jan 2023. Plan to try Trelegy. -Since she seldom sees her [facility] fructose loader, and she is well-known to [facility] fructose loader / critical medicine teams, we discussed about transferring care to [facility]. Patient agreed with the plan initially, but decided to stay with [facility] fructose loader. Assessment & Plan (11/29/2023 11:51 AM EDT): - Airport Maintenance Chief: Ashly, last seen on 11/18/23 - Severe [...] supplemental oxygen 4L-6L; recommended to discuss with fructose loader regarding to oxygen concentrator. - Strongly encouraged to get COVID vaccine - Keep appt with fructose loader -Treatment Hx: Budesonide - Formoterol (Symbicort) was changed to Wixela in Jan 2023. Plan to try Trelegy. Assessment & Plan (10/11/2023 11:41 AM EDT): - Airport Maintenance Chief: Ashly, last seen on 05/31/23 - Severe [...] supplemental oxygen 4L-6L; recommended to discuss with fructose loader regarding to oxygen concentrator. - Strongly encouraged to get COVID vaccine - Keep appt with fructose loader -Treatment Hx: Budesonide - Formoterol (Symbicort) was changed to Wixela in Jan 2023. Plan to try Trelegy. Assessment & Plan (10/04/2023 5:20 PM EDT): - Airport Maintenance Chief: Ashly, last seen on 05/31/23 - Severe [...] supplemental oxygen 4L-6L; recommended to discuss with fructose loader regarding to oxygen concentrator. - Strongly encouraged to get COVID vaccine - Keep appt with fructose loader -Treatment Hx: Budesonide - Formoterol (Symbicort) was changed to Wixela in Jan 2023. Plan to try Trelegy. Assessment & Plan (08/23/2023 3:08 PM EDT): - Airport Maintenance Chief: Ashly, last seen on 05/31/23 - Severe [...] supplemental oxygen 4L-6L; recommended to discuss with fructose loader regarding to oxygen concentrator. - Strongly encouraged to get COVID vaccine - Keep appt with fructose loader -Treatment Hx: Budesonide - Formoterol (Symbicort) was changed to Wixela in Jan 2023. Plan to try Trelegy. Assessment & Plan (05/31/2023 4:31 PM EST): - Airport Maintenance Chief: Ashly, last seen on 01/28/23 - Severe [...] supplemental oxygen 4L-6L; recommended to discuss with fructose loader regarding to oxygen concentrator. - Strongly encouraged to get COVID vaccine - Keep appt with fructose loader -Treatment Hx: Budesonide - Formoterol (Symbicort) was changed to Wixela in Jan 2023. Plan to try Trelegy. Assessment & Plan (05/08/2023 6:17 AM EST): - Airport Maintenance Chief: Ashly, last seen on 01/28/23 - Severe [...] get COVID vaccine - Keep appt with fructose loader -Treatment Hx: Budesonide - Formoterol (Symbicort) was changed to Wixela in Jan 2023. Plan to try Trelegy. Assessment & Plan (03/01/2023 6:49 AM EST): - Airport Maintenance Chief: Ashly, last seen on 01/28/23 - Severe [...] Dx COPD exacerbation, CAP, Tx azithromycin - [facility] [place] 01/11/19-01/17/19, b/l lower lobe pneumonia, L [...] get COVID vaccine - Keep appt with fructose loader -Treatment Hx: Budesonide - Formoterol (Symbicort) was changed to Wixela in Jan 2023. Plan to try Trelegy. Assessment & Plan (12/24/2022 3:40 PM EDT): - Airport Maintenance Chief: Ashly, last seen on 04/15/22 - Severe exacerbation 1-2 per year, none in [id number] - Most recent exacerbation today 12/22/22, Rx prednisone taper and azithromycin - Last hospitalization for COPD exacerbation in Feb 2020, Rx ceftriaxone, steroid, discharged with prednisone burst. - Hospitalization in Mar 2019. Dx COPD exacerbation. Rx prednisone and doxycycline - Exacerbation in Jan 2019, hospitalized 02/05/19- 02/07/19, Dx COPD exacerbation, CAP, Tx azithromycin - [facility] [place] 01/11/19-01/17/19, b/l lower lobe pneumonia, L > R, treated with IV steroid, levofloxacin, and bronchodilators Tx. Discharged with prednisone, benzonatate, levofloxacin. - Continue Symbicort and Incruse as maintenance. Plan to switch to Trelegy per fructose loader - Continue albuterol HFA prn. - Continue DuoNeb for neb prn Tx. - Continue workin on smoking cessation. - Continue supplemental oxygen 4L - Keep appt with fructose loader - Strongly encouraged to get COVID vaccine Assessment & Plan (12/05/2022 5:51 AM EDT): - Airport Maintenance Chief: Ashly, last seen on 04/15/22 - Severe exacerbation 1-2 per year, none in [id number] - Most recent exacerbation in Feb 2020, [place] [facility] ceftriaxone, steroid, discharged with prednisone burst. - Hospitalization in Mar 2019. Dx COPD exacerbation. Rx prednisone and doxycycline - Exacerbation in Jan 2019, hospitalized 02/05/19- 02/07/19, Dx COPD exacerbation, CAP, Tx azithromycin - [facility] [place] 01/11/19-01/17/19, b/l lower lobe pneumonia, L > R, treated with IV steroid, levofloxacin, and bronchodilators Tx. Discharged with prednisone, benzonatate, levofloxacin. - Continue Symbicort and Incruse as maintenance. Plan to switch to Trelegy per fructose loader - Continue albuterol HFA prn. - Continue DuoNeb for neb prn Tx. - Continue workin on smoking cessation. 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 - Hospitalization in Mar 2019. Dx COPD exacerbation. Rx prednisone and doxycycline - Exacerbation in Jan 2019, hospitalized 02/05/19- 02/07/19, Dx COPD exacerbation, CAP, Tx azithromycin - [facility] [place] 01/11/19-01/17/19, b/l lower lobe pneumonia, L > R, treated with IV steroid, levofloxacin, and bronchodilators Tx. Discharged with prednisone, benzonatate, levofloxacin. - Continue Symbicort and Incruse as maintenance. Plan to switch to Trelegy per fructose loader - Continue albuterol HFA prn. - Continue DuoNeb for neb prn Tx. - Continue workin on smoking cessation. 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 - Hospitalization in Mar 2019. Dx COPD exacerbation. Rx prednisone and doxycycline - Exacerbation in Jan 2019, hospitalized 02/05/19- 02/07/19, Dx COPD exacerbation, CAP, Tx azithromycin - [facility] [place] 01/11/19-01/17/19, b/l lower lobe pneumonia, L > R, treated with IV steroid, levofloxacin, and bronchodilators Tx. Discharged with prednisone, benzonatate, levofloxacin. - Continue Breo and Spiriva as maintenance. Plan to switch to Trelegy per fructose loader - Continue albuterol HFA prn. - Continue DuoNeb for neb prn Tx. - Continue workin on smoking cessation. - Continue supplemental oxygen 4L - Keep appt with fructose loader in October. - Strongly encouraged to get [...] exam: referred to [facility] - last comprehensive foot exam: [...] 6:44 AM EST): -Supplier: [employer] -Pt had [id number] visit with Dr. Hart, fructose loader, on 01/28/23. He recommended supplemental oxygen 4LNC at rest and 6LNC with activity based on last evaluation -Continue as recommended. Assessment & Plan (01/05/2023 5:14 PM EDT): -Continuous supplemental oxygen 4L/m -Supplier: [employer] -Contacted [facility] for oxygen delivery RAN -Pt also needs a rollator as she needs frequent rest when walking. Assessment & Plan (12/05/2022 5:52 AM EDT): -Continuous supplemental oxygen 4L/m -Supplier: [facility] -Contacted [facility] for oxygen delivery RAN Assessment & Plan (05/08/2022 5:44 PM EST): -Continuous supplemental oxygen 4L/m Erythrocytosis 01/07/2015 Assessment & Plan (05/08/2023 6:35 AM EST): - 09/24/21 Hemoglobin 19.0; Hematocrit 59.1 - likely due to hypoxia / COPD - previously referred to fowl blood tester, but pt missed appt Assessment & Plan (12/05/2022 5:49 AM EDT): - 09/24/21 Hemoglobin 19.0; Hematocrit 59.1 - likely due to hypoxia / COPD - previously referred to fowl blood tester, but pt missed appt Assessment & Plan (05/08/2022 5:50 PM EST): - 09/24/21 Hemoglobin 19.0; Hematocrit 59.1 - likely due to hypoxia / COPD - previously referred to fowl blood tester, but pt missed appt Assessment & Plan (04/12/2022 7:51 PM EST): - 09/24/21 Hemoglobin 19.0; Hematocrit 59.1 - likely due to hypoxia / COPD - previously referred to fowl blood tester, but pt missed appt 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 Hepatitis C antibody test positive 01/07/2015 Chronic liver disease 09/03/2014 Assessment & Plan (06/16/2024 6:02 AM EDT): -Likely due to Hx alcohol use disorder -Followed by [facility], last visit on 12/21/23 -Hepatitis profile: [...] to Hx alcohol use disorder -Followed by [facility], last visit on 12/21/23 -Hepatitis profile: [...] to Hx alcohol use disorder -Followed by [facility], last visit on 12/21/23 -Hepatitis profile: [...] to Hx alcohol use disorder -Followed by [facility], last visit on 12/21/23 -Hepatitis profile: [...] to Hx alcohol use disorder -Followed by [facility], last visit on 06/22/23 -Hepatitis profile: [...] to Hx alcohol use disorder -Followed by [facility], last visit on 06/22/23 -Hepatitis profile: [...] to Hx alcohol use disorder -Followed by [facility], last visit on 06/22/23 -Hepatitis profile: [...] to Hx alcohol use disorder -Followed by [facility], last visit on 06/22/23 -Hepatitis profile: [...] to Hx alcohol use disorder -Followed by [facility], last visit on 09/24/21 -Hepatitis profile: [...] to Hx alcohol use disorder -Followed by [facility], last visit on 09/24/21 -Hepatitis profile: [...] to Hx alcohol use disorder -Followed by [facility], last visit on 09/24/21 -Hepatitis profile: [...] to Hx alcohol use disorder -Followed by [facility], last visit on 09/24/21 -Hepatitis profile: [...] to Hx alcohol use disorder -Followed by [facility], last visit on 09/24/21 -Hepatitis profile: [...] to Hx alcohol use disorder -Followed by [facility], last visit on 09/24/21 -Hepatitis profile: [...] mg, but if not approved will prescribe [id number] mg daily -Follow up in 3-6 mo, sooner if any problem arises Assessment & Plan (03/01/2023 6:52 AM EST): -Goal BP < 140/90 per JNC-8 and < 130/80 per ACC/AHA guideline (Treatment threshold >= 140/90 ) -Continue working on lifestyle modifications -Continue Amlodipine 10 mg daily -Recently seen by fructose loader, Dr. Hart, and was recommended to switch [...] Previous Dx: Depression; PTSD; alcohol-induced mood disorder [facility] provider: [facility], psychiatrist Dr. Cruz Current medications: sertraline 125 mg daily, perphenazine 4 mg daily Previously tried medications: risperidone; hydroxyzine; prazosin pt is depression has worsened with current living condition pt was able to contract her safety today Assessment & Plan (04/02/2024 6:22 AM EST): Previous Dx: Depression; PTSD; alcohol-induced mood disorder [facility] provider: Mumtaz Current medications: sertraline, prazosin 2mg, hydroxyzine, and risperidone. pt is depression has worsened with current living condition pt was able to contract her safety today Assessment & Plan (10/04/2023 9:59 AM EDT): Previous Dx: Depression; PTSD; alcohol-induced mood disorder [facility] provider: Mumtaz Current medications: sertraline, prazosin 2mg, hydroxyzine, and risperidone. pt is depression has worsened with current living condition pt was able to contract her safety today Assessment & Plan (08/18/2023 5:43 AM EDT): Previous Dx: Depression; PTSD; alcohol-induced mood disorder [facility] provider: Mumtaz Current medications: sertraline, prazosin 2mg, hydroxyzine, and risperidone. pt is depression has worsened with current living condition pt was able to contract her safety today Assessment & Plan (05/08/2022 5:53 PM EST): Previous Dx: Depression; PTSD; alcohol-induced mood disorder [facility] provider: Mumtaz Current medications: sertraline, prazosin 2mg, hydroxyzine, and risperidone. pt is depression has worsened with current living condition pt was able to contract her safety today Assessment & Plan (04/12/2022 7:43 PM EST): Previous Dx: Depression; PTSD; alcohol-induced mood disorder [facility] provider: Mumtaz Current medications: sertraline, prazosin 2mg, hydroxyzine, and risperidone. pt is depression has worsened with current living condition pt was able to contract her safety today Opioid dependence on agonist therapy ([facility]) 0 03/29/2012 Assessment & Plan (06/16/2024 6:05 [...] varenicline in Nov 2023 - referred to [facility] Assessment & Plan (06/12/2024 9:01 AM EDT): - restarted smoking in August 2023 - previously tried varenicline and nicotine replacement - not candidate for lung cancer screening CT due to severe COPD - continue working on smoking cessation - prescribed varenicline in Nov 2023 - referred to [facility] Assessment & Plan (04/26/2024 10:32 AM EST): - restarted smoking in August 2023 - previously tried varenicline and nicotine replacement - not candidate for lung cancer screening CT due to severe COPD - continue working on smoking cessation - prescribed varenicline in Nov 2023 - referred to [facility] Assessment & Plan (04/02/2024 6:20 AM EST): - restarted smoking in August 2023 - previously tried varenicline and nicotine replacement - not candidate for lung cancer screening CT due to severe COPD - continue working on smoking cessation - prescribed varenicline in Nov 2023 - referred to [facility] Assessment & Plan (02/06/2024 5:38 AM EST): - restarted smoking in August 2023 - previously tried varenicline and nicotine replacement - not candidate for lung cancer screening CT due to severe COPD - continue working on smoking cessation - prescribed varenicline in Nov 2023 - referred to [facility] Assessment & Plan (11/29/2023 11:53 AM [...] & Plan (12/29/2024 11:49 PM EDT): - Fringe Knotter: [facility], last visit on 06/15/20 - Current replacement: levothyroxine 225 mcg daily - Most recent thyroid function test: 0.22 06/12/24 therapeutic range, slightly low - Recheck today Assessment & Plan (09/04/2024 5:12 PM EDT): - Fringe Knotter: [facility], last visit on 06/15/20 - Current replacement: levothyroxine 225 mcg daily - Most recent thyroid function test: 0.22 06/12/24 therapeutic range, slightly low - Recheck today Assessment & Plan (06/16/2024 6:02 AM EDT): - Fringe Knotter: [facility], last visit on 06/15/20 - Current replacement: levothyroxine 225 mcg daily - Most recent thyroid function test: 11/08/23 therapeutic range - Recheck today Assessment & Plan (04/26/2024 10:32 AM EST): - Fringe Knotter: [facility], last visit on 06/15/20 - Current replacement: levothyroxine 225 mcg daily - Most recent thyroid function test: 11/08/23 therapeutic range Assessment & Plan (03/26/2024 5:03 PM EST): - Fringe Knotter: [facility], last visit on 06/15/20 - Current replacement: levothyroxine 225 mcg daily - Most recent thyroid function test: 08/03/23 therapeutic range - Requested to repeat lab today. - Encouraged to improve adherence. Assessment & Plan (02/02/2024 2:28 PM EST): - Fringe Knotter: [facility], last visit on 06/15/20 - Current replacement: levothyroxine 225 mcg daily - Most recent thyroid function test: 08/03/23 therapeutic range - Requested to repeat lab today. - Encouraged to improve adherence. Assessment & Plan (11/29/2023 11:32 AM EDT): - Fringe Knotter: [facility], last visit on 06/15/20 - Current replacement: levothyroxine 225 mcg daily - Most recent thyroid function test: 08/03/23 therapeutic range - Requested to repeat lab today. - Encouraged to improve adherence. Assessment & Plan (10/11/2023 11:43 AM EDT): - Fringe Knotter: [facility], last visit on 06/15/20 - Current replacement: levothyroxine 225 mcg daily - Most recent thyroid function test: 08/03/23 therapeutic range - Requested to repeat lab today. - Encouraged to improve adherence. Assessment & Plan (10/02/2023 4:45 PM EDT): - Fringe Knotter: [facility], last visit on 06/15/20 - Current replacement: levothyroxine 225 mcg daily - Most recent thyroid function test: 08/03/23 therapeutic range - Requested to repeat lab today. - Encouraged to improve adherence. Assessment & Plan (12/05/2022 5:49 AM EDT): - Fringe Knotter: [facility], last visit on 06/15/20 - Current replacement: levothyroxine 200 mcg daily - Most recent thyroid function test: 09/24/21 TSH 23.42 - 08/13/20 TSH 26.67, Free T4 0.9 - 10/22/19 TSH 48.28; Free T4 0.44 - Requested to repeat lab today. - Encouraged to improve adherence. - Advised to keep appt with Fringe Knotter Assessment & Plan (04/12/2022 7:31 PM EST): - Fringe Knotter: [facility], last visit on 06/15/20 - Current replacement: levothyroxine 200 mcg daily - Most recent thyroid function test: 09/24/21 TSH 23.42 - 08/13/20 TSH 26.67, Free T4 0.9 - 10/22/19 TSH 48.28; Free T4 0.44 - Requested to repeat lab today. - Encouraged to improve adherence. - Advised to keep appt with Fringe Knotter Resolved Problems Problem Noted Date Diagnosed Date Resolved Date COPD exacerbation ([facility]/HCC) 08/28/2024 09/10/2024 Assessment & Plan (08/28/2024 3:21 PM EDT): I will prescribe 5 days of Z pack and prednisone 60mg daily I will prescribe tessalon pearls for cough and acetaminophen for general discomfort CXR ordered to r/o underline pneumonia ED precautions reviewed COPD with acute exacerbation [place] 03/08/2024 03/25/2024 Assessment & Plan (03/08/2024 3:47 [...] Tx for GERD and COPD Aspiration pneumonitis ([facility]) 04/28/2023 08/23/2023 Assessment & Plan (04/28/2023 1:22 PM EST): -Ordered CXR -Will re-evaluate in 4 weeks. 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 04/12/19 23 08/23/2023 Assessment & Plan (05/31/2023 4:34 PM EST): - Fringe Knotter: [facility], last visit on 06/15/20 - Current replacement: levothyroxine 225 mcg daily (recently increased from 212.5 mcg because patient had TSH 5.92 and free T4 0.6) - Most recent thyroid function test: Most recent TSH in Mar 2023 was 5.92 (patient was having acute illness) - Recheck thyroid function Assessment & Plan (05/08/2023 6:34 AM EST): - Fringe Knotter: [facility], last visit on 06/15/20 - Current replacement: levothyroxine 225 mcg daily (recently increased from 212.5 mcg because patient had TSH 5.92 and free T4 0.6) - Most recent thyroid function test: Most recent TSH in Mar 2023 was 5.92 (patient was having acute illness) - Recheck thyroid function Assessment & Plan (12/24/2022 3:43 PM EDT): - Fringe Knotter: [facility], last visit on 06/15/20 - Current replacement: levothyroxine 200 mcg daily - Most recent thyroid function test: 12/14/22 TSH 32.45, Free T4 0.57 - Encouraged to improve adherence. Assessment & Plan (12/05/2022 5:53 AM EDT): - Fringe Knotter: [facility], last visit on 06/15/20 - Current replacement: levothyroxine 200 mcg daily - Most recent thyroid function test: 09/24/21 TSH 23.42 - 08/13/20 TSH 26.67, Free T4 0.9 - 10/22/19 TSH 48.28; Free T4 0.44 - Requested to repeat lab today. - Encouraged to improve adherence. - Advised to keep appt with Fringe Knotter Assessment & Plan (05/08/2022 5:49 PM EST): - Fringe Knotter: [facility], last visit on 06/15/20 - Current replacement: levothyroxine 200 mcg daily - Most recent thyroid function test: 09/24/21 TSH 23.42 - 08/13/20 TSH 26.67, Free T4 0.9 - 10/22/19 TSH 48.28; Free T4 0.44 - Requested to repeat lab today. - Encouraged to improve adherence. - Advised to keep appt with Fringe Knotter Assessment & Plan (04/12/2022 7:32 PM EST): - Fringe Knotter: [facility], last visit on 06/15/20 - Current replacement: levothyroxine 200 mcg daily - Most recent thyroid function test: 09/24/21 TSH 23.42 - 08/13/20 TSH 26.67, Free T4 0.9 - 10/22/19 TSH 48.28; Free T4 0.44 - Requested to repeat lab today. - Encouraged to improve adherence. 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 - Last hospitalization Feb 2020. [facility] Rx ceftriaxone, steroid, discharged with prednisone burst. - Hospitalization in Mar 2019. Dx COPD exacerbation. Rx prednisone and doxycycline - Exacerbation in Jan 2019, hospitalized 02/05/19- 02/07/19, Dx COPD exacerbation, CAP, Tx azithromycin - [facility] [place] 01/11/19-01/17/19, b/l lower lobe pneumonia, L > R, treated with IV steroid, levofloxacin, and bronchodilators Tx. Discharged with prednisone, benzonatate, levofloxacin. - Continue Symbicort and Incruse as maintenance. Plan to switch to Trelegy per fructose loader - Continue albuterol HFA prn. - Continue DuoNeb for neb prn Tx. - Continue workin on smoking cessation. 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 - Hospitalization in Mar 2019. Dx COPD exacerbation. Rx prednisone and doxycycline - Exacerbation in Jan 2019, hospitalized 02/05/19- 02/07/19, Dx COPD exacerbation, CAP, Tx azithromycin - [facility] [place] 01/11/19-01/17/19, b/l lower lobe pneumonia, L > R, treated with IV steroid, levofloxacin, and bronchodilators Tx. Discharged with prednisone, benzonatate, levofloxacin. - Continue Symbicort and Incruse as maintenance. Plan to switch to Trelegy per fructose loader - Continue albuterol HFA prn. - Continue DuoNeb for neb prn Tx. - Continue workin on smoking cessation. 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 - Hospitalization in Mar 2019. Dx COPD exacerbation. Rx prednisone and doxycycline - Exacerbation in Jan 2019, hospitalized 02/05/19- 02/07/19, Dx COPD exacerbation, CAP, Tx azithromycin - [facility] [place] 01/11/19-01/17/19, b/l lower lobe pneumonia, L > R, treated with IV steroid, levofloxacin, and bronchodilators Tx. Discharged with prednisone, benzonatate, levofloxacin. - Continue Symbicort and Incruse as maintenance. Plan to switch to Trelegy per fructose loader - Continue albuterol HFA prn. - Continue DuoNeb for neb prn Tx. - Continue workin on smoking cessation. - Continue supplemental oxygen 4L - Keep appt with fructose loader - Strongly encouraged to get COVID vaccine Encounters Date Type Department Care Team Description 03/04/2025 Patient Outreach [address] [address] Cathleen Mo MD 03/04/2025 Patient Outreach [address] [address] Cathleen Mo MD Care Management (C3- FOLLOW UP CALL - LVM) 02/19/2025 Plan of Care Documentation [address] [address] 02/18/2025 Plan of Care Documentation [address] [address] 02/18/2025 Patient Outreach [address] [address] Cathleen Mo MD Care Management (C3 COMPLEX INITIAL ASSESSMENT/ ENROLLMENT/) 02/15/[address] [address] Cathleen Mo MD 02/14/2025 1:30 PM EST Office Visit [address] [address] Binu Kasper MD Hospital discharge follow-up (Primary Dx); Chronic obstructive pulmonary disease, unspecified COPD type (CMS/HCC) (HCC); Type 2 diabetes mellitus without complication, without long-term current use of insulin (HCC) 02/14/2025 Travel 02/14/2025 Patient Outreach [address] [address] Cathleen Mo MD Care Coordination (C3 [facility] telephone call outreach) 02/13/[address] [address] Cathleen Mo MD Chart prep 02/13/2025 Patient Outreach [address] [address] Cathleen Mo MD 02/13/[address] [address] Cathleen Mo MD 02/11/2025 Patient Outreach [address] [address] Cathleen Mo MD Care Coordination (C3 [facility] telephone call outreach) 02/04/2025 Patient Outreach [address] [address] Cathleen Mo MD Care Coordination (C3 [facility] telephone call outreach) 02/04/2025 Patient Outreach [address] [address] Cathleen Mo MD 02/01/2025 Patient Outreach [address] [address] Cathleen Mo MD Transition Of Care (Tcm) (HDF- scheduled) 01/28/2025 Orders Only GENERIC EXTERNAL DATA DEPARTMENT Provider, Generic External Data 01/27/2025 Orders Only GENERIC EXTERNAL DATA DEPARTMENT Provider, Generic External Data 01/21/[address] [address] Cathleen Mo MD Care Coordination (Home Health Utilization) 01/21/2025 Patient Outreach [address] [address] Cathleen Mo MD Care Coordination (C3 -[facility] Josey Joy chart review) 01/21/2025 Patient Outreach [address] [address] Cathleen Mo MD Care Management (C3 -CHART REVIEW/) 01/21/2025 Patient Outreach [address] [address] Cathleen Mo MD 01/21/[address] [address] Cathleen Mo MD Nurse Triage 01/21/[address] [address] Cathleen Mo MD Care Coordination (Home Care Utilization ) 01/17/2025 Refill [facility] [address] [place] [address] Cathleen Mo MD 01/16/[address] [address] Cathleen Mo MD 01/16/2025 Refill [facility] [address] [place] [id number] Cathleen Mo MD 12/25/2024 11:30 AM EDT Office Visit [address] [address] Cathleen Mo MD Primary hypertension (Primary Dx); Dyslipidemia; Type 2 diabetes mellitus without complication, without long-term current use of insulin (CMS/HCC); Zayra's thyroiditis; 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 [facility] Dependence on supplemental oxygen; Tobacco dependence; Bilateral hand pain 12/25/2024 Travel 12/24/2024 Telephone [facility] [address] [place] [phone] Cathleen Mo MD chart prep 12/17/2024 Patient Outreach [facility] [address] [place] [address] Cathleen Mo MD Pre-visit Planning ([facility] screening was completed on 09/04/2024) from Last 3 Months Immunizations Immunization Administration [...] Sign Reading Time Taken Comments Blood Pressure 118/66 02/14/2025 1:37 PM EST Pulse 98 02/14/2025 1:45 PM EST Temperature 36.9 C (98.5 F) 02/14/2025 1:37 PM EST Respiratory Rate 20 02/14/2025 1:37 PM EST Oxygen Saturation 93% 02/14/2025 1:45 PM EST Inhaled Oxygen Concentration - - Weight 80.8 kg (178 lb 3.2 oz) 02/14/2025 1:37 P M EST Height 165.1 cm (5' 5 ) 02/14/2025 1:37 PM EST Body Mass Index 29.65 02/14/2025 1:37 PM EST Plan of Treatment Upcoming Encounters Date Type Department Care Team (Late st Contact Info) Description 03/19/2025 11:15 AM EST Office Visit [facility] [address] [place] [address] Cathleen Mo MD [address] [place], [place] [phone] 05/10/2025 2:00 PM EST Office Visit [facility] [address] [place], [place] [phone] Silvia Cameron, OD [address] [place], [place] [phone] Health Maintenance Due Date Last Done Comments CT Colonography 1966 Colonoscopy 1966 Dental Prophylaxis 1966 Dental X-Ray: Bitewings 1966 FIT 1966 Sigmoidoscopy 1966 Eye Exam 1976 Dental Oral Exam 07/22/2016 01/21/2016 RSV Patients and Patients Aged 60 years or older (1 - Risk 50-74 years 1-dose series) 2016 Zoster Vaccines (2 of 2) 06/21/2024 04/26/2024 Diabetes: Foot Exam 10/10/2024 10/11/2023, Diabetes: Urine Protein Screening 11/07/2024 11/08/2023 COVID-19 Vaccine ( season) 2024 03/26/2024, 04/28/2023, 06/13/2020 Influenza Vaccine (#1) 2024 4, 04/28/2023, 04/29/2022, Additional history exists Diabetes: Hemoglobin A1C 03/26/2025 025, 09/04/2024, 06/12/2024, Additional history exists FOBT 03/26/2025 03/26/2024 Pap Smear 04/29/2025 04/29/2022, 02/07/2019 Lipid Panel 06/12/2025 06/12/2024, 10/26, 12/14/2022, Additional history exists Mammogram 07/12/2025 07/13/2023, 07/07/2022 Depression Monitoring 08/18/2025 02/18/2025, 025 SDOH Screening 09/04/2025 09/04/2024 Disability Screening 12/25/2025 12/25/2024 Alcohol/Substance Use Screening 02/14/2026 02/14/2025 Tobacco Screening 02/14/2026 02/14/2025 Dental X-Ray: Full Mouth 02/15/2027 02/15/2024, 12/27 Colorectal Cancer Screening 03/26/2027 FIT DNA/Cologuard 03/26/2027 03/26/2024 Cervical Cancer Screening 04/29/2027 HPV/Cotest 04/29/2027 04/29/2022, 01/26, 01/23/2019 DTaP/Tdap/Td Vaccines (3 - Td or Tdap) 04/29/2032 04/29/2022, 04/21/2012, 04/09/2009 Hepatitis A Vaccines Discontinued 10/13/2009, 04/08/19 10 Hepatitis B Vaccines Completed 07/14/2010, 10/13/2009, 04/08/2009 Pneumococcal Vaccine: 50+ Years Completed 04/28/2023, 01/12/2019, 04/21/2012 HIV Screening Completed 05/12/2023, 11/26, 10/22/2019 Lung Cancer Screening Discontinued 10/25/2023, 024 HIB Vaccines Aged Out No longer eligi ble based on patient's age to complete this topic HPV Vaccines Aged Out No longer eligi ble based on patient's age to complete this topic IPV Vaccines Aged Out No longer eligi ble based on patient's age to complete this topic Meningococcal B Vaccine Aged Out No l [...] on patient's age to complete this topic Goals Goal Patient Goal Type Associated Problems [...] Plan Weekly blood pressure task No Sylwia Camarnea RN Weekly blood pressure task Care Plan [...] has chronic kidney disease No Josey Joy Procedures Procedure Name Priority Date/Time Associated Diagnosis Comments POCT GLUCOSE Routine 02/14/2025 2:10 PM EST Type 2 diabetes mellitus without complication, without long-term current use of insulin (HCC) XR CHEST 2 VIEWS Routine 01/31/2025 11:3 5 AM EST VENOUS BLOOD GAS Routine 01/28/2025 10:5 2 AM EST VENOUS BLOOD GAS Routine 01/28/2025 7:16 AM EST VENOUS BLOOD GAS Routine 01/28/2025 5:50 AM EST ETHANOL Routine 01/28/2025 12:43 AM EST TSH W/REFLEX TO FT4 Routine 01/28/2025 1 2:43 AM EST MAGNESIUM Routine 01/28/2025 12:43 AM EST COMPREHENSIVE METABOLIC PANEL Routine 01/28/2025 12:43 AM EST HIGH SENSITIVITY TROPONIN I Routine 01/28/2025 12:43 AM EST DRUG MONITOR, PANEL 1, SCREEN, URINE Routine [...] complication, without long-term current use of insulin ([facility]) POCT GLUCOSE Routine 12/25/2024 12:08 PM EDT [...] Recently Relevant to Health Maintenance Results * POCT Glucose (02/14/2025 2:10 PM EST) Only the most recent of2 resultswithin the time period is included. Glucose Blood, POC 135 60 - 200 mg/dL QC Media Lot # [id number] Lot# Expiration Date [id number] Blood Capillary blood specimen / Unknown 02/14/2025 2:10 PM EST us Binu Carty MD POINT OF CARE TEST EN TER/EDIT ORDERABLES Final Result * XR Chest 2 Views (01/31/2025 11:35 AM EST) Anatomical Region Laterality Modality Chest Radiographic Evon ging 01/31/2025 11:3 5 AM EST Narrative 01/31/2025 11:48 AM EST [address] [address] XRay Report Signed Patient: Sandra Rose MR# : [id number] : 1965 Acct:[id number] Age/Sex: 59 / F ADM Date: 01/28/25 Loc: HO.S3 371-[address]: Karthikeyan Whitley MD Ordering Physician: Karthikeyan Whitley MD Date of Service: 01/31/25 Procedure(s): XR chest 2V Accession Number(s): [id number] cc: Karthikeyan Whitley MD; Cathleen Mo MD Reason for Exam: follow up prior study EXAMINATION: XR CHEST 2 VIEWS HISTORY: follow up prior study COMPARISON: Comparison is made with the prior examination dated 01/27/2025. FINDINGS: PA and lateral views of the chest are submitted. Again seen are opacities at both lung bases compatible with atelectasis or pneumonia. The upper lung zones are clear. There is no pleural effusion, pneumothorax, or pulmonary vascular congestion. The heart is mildly enlarged. The bones are intact. XR/XR chest 2V IMPRESSION: Cardiomegaly. Persistent bibasilar opacities, compatible with atelectasis or pneumonia. Continued follow-up is recommended to document resolution. Electronically signed by: Jackson Mott MD 01/31/2025 11:46 AM EST Dictated By: Jackson Mott MD Signed By: <Electronically signed by Jackson Mott MD in OV> 01/31/25 1146 DD/ 1135 TD/TT: 01/31/25 1144 Data Entry Email Processor: Procedure Note Donotuseinterpreter, Image - 01/31/[address] [address] XRay Report Signed Patient: Sandra Rose DMR# : [id number] : 1965Acct:[id number] Age/Sex: 59 / FADM Date: 01/28/25 Loc: HO.S3 371-[address]: Karthikeyan Whitley MD Ordering Physician: Karthikeyan Whitley MD Date of Service: 01/31/25 Procedure(s): XR chest 2V Accession Number(s): [id number] cc: Karthikeyan Whitley MD; Cathleen Mo MD Reason for Exam: follow up prior study EXAMINATION: XR CHEST 2 VIEWS HISTORY: follow up prior study COMPARISON: Comparison is made with the prior examination dated 01/27/2025. FINDINGS: PA and lateral views of the chest are submitted. Again seen are opacities at both lung bases compatible with atelectasis or pneumonia. The upper lung zones are clear. There is no pleural effusion, pneumothorax, or pulmonary vascular congestion. The heart is mildly enlarged. The bones are intact. XR/XR chest 2V IMPRESSION: Cardiomegaly. Persistent bibasilar opacities, compatible with atelectasis or pneumonia. Continued follow-up is recommended to document resolution. Electronically signed by: Jackson Mott MD 01/31/2025 11:46 AM EST Dictated By: Jackson Mott MD Signed By: <Electronically signed by Jackson Mott MD in OV> 01/31/25 1146 DD/ 1135 TD/TT: 01/31/25 1144 Data Entry Email Processor: [facility] External Provider IMG XR PROCEDURES Final Result * (ABNORMAL) VENOUS BLOOD GAS (01/28/2025 10:52 AM EST) Only the most recent of4 resultswithin the time period is included. VBG pH 7.32 7.32 - 7.43 [facility] Comment:METER #: [id number] additional_comment: Cb lynsey VBG PCO2 84 mmHg [facility] Comment:METER #: [id number] additional_comment: Cb lynsey VBG PO2 54 mmHg [facility] Comment:METER #: [id number] additional_comment: Link menon VBG Base Excess 13.9 mmol/L [facility] Comment:METER #: [id number] additional_comment: Link menon VBG HCO3 44(H) 22 - 26 mmol/L [facility] Comment:METER #: [id number] additional_comment: Link menon O2 Sat, Juan 83.0 % [facility] Comment:METER #: [id number] additional_comment: Link menon 01/28/2025 10:5 2 AM EST 01/28/2025 10:59 AM EST Generic External Data Provider LAB BLOOD ORDERAB LES Final Result Performing Organization Address [facility] Co de Phone Number [facility] [address] [place] [phone] * High Sensitivity Troponin I (01/28/2025 12:43 AM EST) [facility] TROPONIN I HIGH SENSITIVITY <2.7 <3.5 - 17.0 ng/L [facility] Comment:The Novak high sens itivity Troponin-I results should beused in conjunction with other diagnostic information suchas ECG, clinical observations and information, and patientsymptoms to aid in the diagnosis of MD. 01/28/2025 12:4 3 AM EST 01/28/2025 12:46 AM EST Generic External Data Provider LAB BLOOD ORDERAB LES Final Result Performing Organization Address [facility] Co de Phone Number [facility] [address] [place] [phone] * Ethanol (01/28/2025 12:43 AM EST) ETHANOL (MG/DL) IN SER/PLAS <10 mg/dL [facility] Comment:Serum/plasma ethanol results are to be used formedical/treatment purposes only. 01/28/2025 12:4 3 AM EST 01/28/2025 12:46 AM EST us Generic External Data Provider LAB BLOOD ORDERAB LES Final Result Performing Organization Address City/[facility]/ZIP Co de Phone Number [facility] [address] [place] [phone] * TSH with Reflex to Free T4 (01/28/2025 12:43 AM EST) TSH reflex Free T4 2.06 0.32 - 4.0 uIU/mL [facility] 01/28/2025 12:4 3 AM EST 01/28/2025 12:46 AM EST [facility] External Data Provider LAB BLOOD ORDERAB LES Final Result Performing Organization Address [facility] Co de Phone Number [facility] [address] [place] [phone] * (ABNORMAL) Drug Monitoring, Panel 1, Screen, Urine (01/28/2025 12:43 AM EST) Opiate Screen Urine Not Detected Not Detect [facility] Comment:Opiate cut-off is 30 0 ng/mL.Positive results are unconfirmed and should not be used fornon-medical purposes. Barbiturates, Urine Not Detected Not Detect [facility] Comment:Barbiturate cut-off is 200 ng/mL.Positive results are unconfirmed and should not be used fornon-medical purposes. Phencyclidine Screen Urine Not Detected Not Detect [facility] Comment:Phencyclidine cut-of f is 25 ng/mL.Positive results are unconfirmed and should not be used fornon-medical purposes. Amphetamine Screen Urine Not Detected Not Detect [facility] Comment:Amphetamine cut-off is 1000 ng/mL.Positive results are unconfirmed and should not be used fornon-medical purposes. Benzodiazepines Screen Urine Not Detected Not Detect [facility] Comment:Benzodiazepine cut-o ff is 200 ng/mL.Positive results are unconfirmed and should not be used fornon-medical purposes. Cocaine Screen Urine Not Detected Not Detect [facility] Comment:Cocaine cut-off is 3 00 ng/mL.Positive results are unconfirmed and should not be used fornon-medical purposes. Cannabinoid Screen Urine Not Detected Not Detect [facility] Comment:Cannabinoid cut-off is 50 ng/mL.Positive results are unconfirmed and should not be used fornon-medical purposes. Methadone Screen, Urine Positive(A) Not Detect ng/mL [facility] Comment:Methadone cut-off is 300 ng/mL.Positive results are unconfirmed and should not be used fornon-medical purposes. FENTANYL URINE Not Detected Not Detect [facility] Comment:Fentanyl cut-off is 1 ng/mL.Positive results are unconfirmed and should not be used fornon-medical purposes. Oxycodone Urine Screen Not Detected Not Detect ng/mL [facility] Comment:Oxycodone cut-off is 100 ng/mL.Positive results are unconfirmed and should not be used fornon-medical purposes. Buprenorphine Screen Not Detected Not Detect ng/mL [facility] Comment:Buprenorphine cut-of f is 5 ng/mL.Positive results are unconfirmed and should not be used fornon-medical purposes. 01/28/2025 12:4 3 AM EST 01/28/2025 12:46 AM EST Generic External Data Provider LAB URINE ORDERAB LES Final Result Performing Organization Address [facility] Co de Phone Number [facility] [address] [place] [phone] * Magnesium (01/28/2025 12:43 AM EST) Magnesium 2.3 1.6 - 2.6 mg/dL [facility] 01/28/2025 12:4 3 AM EST 01/28/2025 12:46 AM EST Generic External Data Provider LAB BLOOD ORDERAB LES Final Result Performing Organization Address [facility] Co de Phone Number [facility] [address] [place] [phone] * (ABNORMAL) Comprehensive Metabolic Panel (01/28/2025 12:43 AM EST) Sodium 141 135 - 145 mmol/L [facility] Potassium 5.3(H) 3.3 - 5.1 mmol/L [facility] Comment:Slight Hemolysis.Int erpret result with caution. Chloride 94(L) 96 - 108 mmol/L [facility] Carbon Dioxide 40(HH) 22 - 29 mmol/L [facility] Comment:Critical value for t est(s): CO2 Results called to and readback by: GABBY Person calling: IDRISRossolini Date: 01/28/25 Time:01:26AM Anion Gap 12 12 - 20 [facility] Urea Nitrogen (BUN) 10 9 - 16 mg/dL [facility] Creatinine, Serum 0.63 0.5 - 1.4 mg/dL [facility] Creatinine Clr Calc Pharmacy 104.7 [facility] Comment:Provided height and weight: 167.64 cm,81.5 kg.eGFR (calculated from the MDRD study equation) and eCrCl(calculated from the Cockcroft-Gault equation) are based ondifferent parameters and may not yield comparable results.If eCrCl result is absurd, please check patient'sheight/weight. Estimated Glomerular Filt Rate >60 [facility] Comment:Chronic Kidney Disea se: Estimated GFR < 60 mL/min/1.24r9Zbagdl Kidney Disease: Estimated GFR < 15 mL/min/1.73m2 Glucose 133(H) 60 - 115 mg/dL [facility] Calcium 8.9 8.4 - 10.2 mg/dL [facility] Bilirubin, Total 0.5 0.0 - 1.0 mg/dL [facility] Aspartate Amino Transferase 28 5 - 31 U/L [facility] Comment:Slight Hemolysis.Int erpret result with caution. Alanine Aminotransferase 12 0 - 31 U/L [facility] Total Protein 7.4 6.5 - 8.0 g/dL [facility] Albumin Level 4.2 3.5 - 5.0 g/dL [facility] Alkaline Phosphatase 100 39 - 117 U/L [facility] 01/28/2025 12:4 3 AM EST 01/28/2025 12:46 AM EST us Generic External Data Provider LAB BLOOD ORDERAB LES Edited Result - Final Performing Organization Address [facility]/ZIP Co de Phone Number [facility] [address] [place] [phone] * Ammonia, Plasma (01/28/2025 12:23 AM EST) Pathologist [facility] Ammonia (P) 32 13 - 55 umol/L [facility] Comment:Slight Hemolysis.Int erpret result with caution. 01/28/2025 12:2 3 AM EST 01/28/2025 12:26 AM EST us Generic External Data Provider LAB BLOOD ORDERAB LES Final Result Performing Organization Address [facility] Co de Phone Number [facility] [address] [place] [phone] * (ABNORMAL) CBC auto differential (01/28/2025 12:17 AM EST) [facility] White Blood Count 14.6(H) 4.8 - 10.8 X10*3/uL [facility] Red Blood Count 4.72 4.20 - 5.50 X10*6/uL [facility] Hemoglobin 13.1 12.0 - 16.0 g/dl [facility] Hematocrit 44.6 37.0 - 47.0 % [facility] Mean Corpuscular Volume 94.5 80.0 - 98.0 fL [facility] Mean Corpuscular Hemoglobin 27.8 27.0 - 33.0 pg [facility] Mean Corpuscular HGB Conc 29.4(L) 31.0 - 35.0 g/dl [facility] Red Cell Distribution Width 14.1 11.0 - 16.0 % [facility] Platelet Count 118(L) 160 - 400 X10*3/uL [facility] Mean Platelet Volume 10.9 9.4 - 12.3 fL [facility] Neutrophils Percent Auto 80.1(H) 45 - 73 % [facility] Imm Gran Pct Auto 0.5(H) 0.0 - 0.4 % [facility] Lymphocytes Percent Auto 13.8(L) 20 - 40 % [facility] Monocytes Percent Auto 4.4 2 - 11 % [facility] Eosinophils Percent Auto 0.8 0 - 4 % [facility] Basophils Percent Auto 0.4 0 - 2 % [facility] NRBC Pct Auto 0.0 0.0 - 0.2 /100WBC [facility] Neutrophils Absolute Auto 11.4(H) 2.0 - 8.3 x10*3/uL [facility] Imm Gran Abs Auto 0.07(H) 0.00 - 0.03 X10*3/uL [facility] Lymphocytes Absolute Auto 2.0 1.2 - 4.9 X10*3/uL [facility] Monocytes Absolute Auto 0.6 0.1 - 1.2 X10*3/uL [facility] Eosinophils Absolute Auto 0.1 0.0 - 0.4 X10*3/uL [facility] Basophils Absolute Auto 0.1 0.0 - 0.2 X10*3/uL [facility] NRBC Abs Auto 0.000 0.0 - 0.012 X10*3/uL [facility] 01/28/2025 12:1 7 AM EST 01/28/2025 12:23 AM EST us Generic External Data Provider LAB BLOOD ORDERAB LES Edited Result - Final [facility] [address] [place], [place] [phone] * Lactic Acid (01/28/2025 12:16 AM EST) Lactic Acid 0.6 0.5 - 2.0 mmol/L [facility] 01/28/2025 12:1 6 AM EST 01/28/2025 12:23 AM EST us Generic External Data Provider LAB BLOOD ORDERAB LES Final Result [facility] [address] [place] [phone] * XR Chest 1 View (01/27/2025 11:55 PM EST) Anatomical Region Laterality Modality Chest Radiographic Evon ging 01/27/2025 11:5 5 PM EST Narrative 01/27/2025 11:56 PM EST [address] [address] XRay Report Signed Patient: Sandra Rose MR# : [id number] : 1965 Acct:[id number] Age/Sex: 59 / F ADM Date: 01/27/25 Loc: HO.ED Attending Dr: Ordering Physician: Catalina Gomez DO Date of Service: 01/27/25 Procedure(s): XR chest 1V Accession Number(s): [id number] cc: Catalina Gomez DO; Cathleen Mo MD [...] in OV> 01/27/252355 DD/ 54 TD/TT: 01/27/252354 Data Entry Email Processor: Procedure Note Donotuseinterpreter, Image - 01/28/2025 [address] [place] [address] XRay Report Signed Patient: Sandra Rose DMR# : [id number] : 1965Acct:[id number] Age/Sex: 59 / FADM Date: 01/27/25 Loc: HO.ED Attending Dr: Ordering Physician: Catalina Gomez DO Date of Service: 01/27/25 Procedure(s): XR chest 1V Accession Number(s): [id number] cc: Catalina Gomez DO; Cathleen Mo MD [...] in OV> 01/27/252355 DD/ 54 TD/TT: 01/27/252354 Data Entry Email Processor: [facility] External Provider IMG XR PROCEDURES Edited Result - Final * Influenza A B2 ID NOW (Novak) (01/27/2025 10:05 PM EST) IDNOW SERIAL# [id number] [facility] Influenza A Negative Negative [facility] Influenza B2 Negative Negative [facility] Influenza A B2 Note See Note [facility] Comment:The Novak ID NOW In fluenza [...] LAB MICROBIOLOGY - GENERAL ORDERABLES Final Result [facility] [address] [place] [phone] * COVID-19 ID NOW (PagerDuty) (01/27/2025 10:05 PM EST) IDNOW SERIAL# [id number] [facility] COVID-19 TEST Negative Negative [facility] COVID-19 NOTE See Note [facility] Comment: Results are for the identification of SARS-CoV2 RNA. TheSARS-CoV2 RNA is generally detectable in respiratory samplesduring the acute phase of infection. Positive results areindicative of the presence of SARS-CoV-2 RNA; clinicalcorrelation with patient history and other diagnosticinformation is necessary to determine patient infectionstatus. Positive results do not rule out bacterial infectionor co- infection with other viruses.Testing facilities within the [facility] and [facility] are required to report all positive results [...] use by authorized laboratories.Testing performed on the [employer] ID NOW utilizing NAAT. 01/27/2025 10:0 5 PM EST 01/27/2025 10:08 PM EST us Generic External Data Provider LAB MOLECULAR GISEL GNOSTICS ORDERABLES Final Result [facility] [address] [place] [phone] * (ABNORMAL) POCT glycosylated hemoglobin (Hgb A1c) (12/25/2024 12:09 PM EDT) Hemoglobin A1C 6.3(A) 4.0 - 5.7 % QC Media Lot # [id number] Lot# Expiration Date ,606,584 Blood Capillary blood specimen / Unknown 12/25/2024 12:09 PM EDT Cathleen Mo MD POINT OF CARE TEST ENTER/EDIT OR DERABLES Final Result * (ABNORMAL) Lipid Panel with Reflex to Direct LDL (06/12/2024 2:10 PM EDT) Triglycerides 269(H) <150 mg/dL [facility] Comment:Desirable Triglyceri de: less than 150 mg/dLBorderline High Triglyceride 150-199 mg/dLHigh Triglyceride: 200-499 mg/dLVery High Triglyceride: greater than or equal to 5OO mg/dL Cholesterol 282(H) <200 mg/dL [facility] Comment:Desirable Cholestero l: less than 200 mg/dLBorderline High Cholesterol: 200-239 mg/dLHigh Cholesterol: greater than 239 mg/dL LDL Cholesterol Calculated 182(H) <100 mg/dL [facility] Comment:Desirable LDL: less than 100 mg/dLNear Optimal/Above Optimal LDL: 110- 129 mg/dLBorderline High LDL: 130-159 mg/dLHigh LDL: 160-189 mg/dLVery High LDL: greater than or equal to 190 mg/dL HDL Cholesterol 47 >40 mg/dL [facility] Comment:Desirable HDL: great er than 40 mg/dL Note: This HDL assay may give artificially low results in patients with liver disease. Blood 06/12/2024 2:10 PM EDT 06/12/2024 4:45 PM EDT us Cathleen Mo MD LAB BLOOD ORDERABLES Final Resul t [facility] [address] [place] [phone] * Cologuard?? colon cancer screening (03/26/2024 11:10 AM EST) Cologuard Result Negative Negative 03/30/19 5:10 PM EST [facility] (CLIA #:[id number]) Comment: NEGATIVE TEST RESULT. A negative Cologuard [...] Bailey et al, N Engl J Med 2014;370(14):5326-6506) The normal value (reference range) for this assay is negative. COLOGUARD RE-SCREENING RECOMMENDATION: Periodic colorectal cancer screening is an important part of preventive healthcare for asymptomatic individuals at average risk for colorectal cancer. Following a negative Cologuard result, the [place] [employer] and U.S. Multi-Society Task Force screening guidelines recommend a Cologuard re-screening interval of 3 years. References: [place] [place] [employer] Guideline for Colorectal Cancer Screening: https://www.cancer.org/cancer/lxfrz-nrerww-wvcyfx/lfiyxvnzz-uohghcvul-qijuuxn/ac s-rec ommendations.html.; Holland DK, Ivis CR, Stalin ARMAS, Colorectal Cancer Screening: Recommendations for Physicians and Patients from the U.S. Multi-Society Task Force on Colorectal Cancer Screening , Am J Gastroenterology 2017; 112:9374-4998. TEST DESCRIPTION: Composite algorithmic analysis of stool [...] (Martha North al, N Engl J Med 2014;370(14):4819-2646.) Cologuard may produce a false negative or false positive result (no colorectal cancer or precancerous polyp present at colonoscopy follow up). A negative Cologuard test result does not guarantee the absence of CRC or advanced adenoma (pre-cancer). The current Cologuard screening interval is every 3 years. ([place] [employer] and U.S. Multi-Society Task Force). Cologuard performance data in a 10,000 patient pivotal study using colonoscopy as the reference method can be accessed at the following location: www.Remark.com/results. Additional description of the Cologuard test process, warnings and precautions can be found at www.[employer] Grouprd.com. Stool specimen (specimen) 03/26/2024 11:10 AM EST 03/27/2024 11:53 AM EST us Cathleen Mo MD LAB MOLECULAR DIAGNOSTICS ORDERA BLES Final Result [facility] (CLIA #:[id number]) [place] [address], * Albumin, Random Urine W/Creatinine (11/08/2023 1:45 PM EDT) Creatinine, Urine 67.59 mg/dL [facility] Microalbumin Urine <5.0 mg/L [facility] Microalbum Creatinine Ratio Ur TNP <30 ug/mg cr [facility] Comment:Unable to calculate albumin/creatinine ratio due to lowmicroalbumin or creatinine result. Urine 11/08/2023 1:45 PM EDT 11/08/2023 3:56 PM EDT Cathleen Mo MD LAB URINE ORDERABLES Final Resul t Performing Organization Address City/[facility] Co de Phone Number [facility] [address] [place] [phone] * BI Mammogram Screening Tomosynthesis Bilateral (07/13/2023 11:10 AM EDT) Anatomical Region Laterality Modality Breast Bilateral Mammography 07/13/2023 11:1 0 AM EDT Narrative 07/18/2023 3:46 PM EDT [address] [place] [address] Mammography Report Signed Patient: Sandra Rose MR# : [id number] : 1965 Acct:[id number] Age/Sex: 57 / F ADM Date: 07/13/23 Loc: [facility] Attending Dr: Cathleen Mo MD Ordering Physician: Cathleen Mo MD Results: 1Negative Date of Service: 07/13/23 Follow Up: 1 Year From Orig ina Mammogram Procedure(s): MM tomosynthesis screening BI Accession Number(s): [id number] cc: Cathleen Mo MD EXAMINATION: MM SCREENING [...] in OV> 07/18/23 1543 DD/ 1110 TD/TT: Data Entry Email Processor: Procedure Note Donotuseinterpreter, Image - 07/18/2023 [facility] [address] [place], [place] [address] Mammography Report Signed Patient: Sandra Rose DMR# : [id number] : 1965Acct:[id number] Age/Sex: 57 / FADM Date: 07/13/23 Loc: [facility] Attending Dr: Cathleen Mo MD Ordering Physician: Cathleen Mo MDResults: 1Negative Date of Service: 07/13/23Follow Up: 1 Year From [facility] ina Mammogram Procedure(s): MM tomosynthesis screening BI Accession Number(s): [id number] cc: Cathleen Mo MD EXAMINATION: MM SCREENING [...] in OV> 07/18/23 1543 DD/ 1110 TD/TT: Data Entry Email Processor: Cathleen Mo MD IMG BI PROCEDURES Final Result * HIV-1/2 Antigen and Antibodies, Fourth Generation, with Reflexes (05/12/2023 11:06 AM EST) HIV AB/AG Nonreactive Nonreactive [facility] Comment:HIV-1 p24 Ag and/or HIV-1/HIV-2 Ab not detected.A test result that is nonreactive does not exclude thepossibility of exposure to or infection with HIV-1 and/orHIV-2. Nonreactive results in this assay for individualswith prior exposure to HIV-1 and/or HIV-2 may be due toantigen and antibody levels that are below the limit ofdetection of this assay.The Power Fingerprinting HIV Ag/Ab Combo assay result andsupplemental assay results should be interpreted inconjunction with the patient's clinical presentation,history and other laboratory results. If the results areinconsistent with clinical evidence, additional testing issuggested to confirm the result. Blood Venous blood specimen / Unknown 05/12/2023 11:06 AM EST 05/12/2023 1:03 PM EST us Cathleen Mo MD LAB BLOOD ORDERABLES Final Resul t [facility] [address] [place] [phone] * Thinprep TIS PAP And HPV mRNA E6/E7 With Reflex To HPV 16,18/45 (04/29/2022 11:38 AM EST) Clinical Information: ROUTINE PAP [employer] LMP: NONE GIVEN [employer] Prev. PAP: NONE GIVEN [employer] Prev. BX: NONE GIVEN [employer] SOURCE: None given [facility] Statement Of Adequacy: [employer] Comment: Satisfactory for evaluation. Endocervical/transformation zone component present. Interpretation/ Result: Negative for intraepithelial lesion or malignancy. [employer] Comment: This Pap test has been evaluated with computer assisted technology. [employer] [place] [employer] Cytotechnologis t: [employer] Comment: SXA, CT(ASCP) CT screening location: [place] [address] Review Cytotechnologis t: [employer] [place] [employer] Comment: JNA, CT(ASCP) CT screening location: [place] [address] (Always Message) [employer] Comment: EXPLANATORY NOTE: The Pap is a [...] HPV nRNA E6/E7 Not Detected Not Detected [employer] Comment: Methodology: Grocery Clerk Marking-Mediated Amplification This assay detects E6/E7 viral messenger RNA (mRNA) from 14 high-risk HPV types (16,18,31,33,35,39,45,51,52,56,58,59,66,68). Cervical sources are required for HPV testing. If a vaginal source from a patient who has had a total hysterectomy with removal of cervix was submitted, please contact the testing laboratory for alternative testing options. For additional information, please refer to http://education.Closely/faq/XEK504c1 (This link if provided for information/ educational purposes only.) 04/29/2022 11:3 8 AM EST 04/30/2022 9:58 AM EST Narrative [facility] - 05/05/2022 2:36 PM EST FASTING: UNKNOWN us Cathleen Mo MD LAB PATHOLOGY ORDERABLES Final R esult [facility] [address], [place] [address] [employer] [facility] [address] [facility], ([address]) [place] [address] from Last 3 Months or Most Recently Relevant to Health Maintenance Additional Health Concerns Active Problems Noted Date [...] 03/04/2025 Patient has chronic kidney disease 03/04/2025 [facility] [place] [address] Care Teams Systems Support Officer Relationship Specialty Start Date End Date Cathleen Mo MD [address] [place] [address] PCP - General Family Medicine 03/28/18 Tad Baez, PharmD [address] [place] [address] Pharmacist Internal Medicine 03/16/24 Sylwia Camarena, BRIANNA [address] [place] [address] Registered Nurse Family Medicine 01/21/25 Josey Joy 01/21/25 [facility] 05/04/17
--- OUTSIDE RECORDS SUMMARY | 2025-03-05 06:40 | XMS_ITS | Encounter Summary ---
Author Organization [employer] Address [address] 7t [place] [address] Care Team Providers Care City Solicitor Name Role Phone Cathleen Sears MD Primary Care Provider [phone] Tad Baez PharmD Unavailable Sylwia Camarena RN Unavailable [phone] Josey Joy Unavailable Encounter Details Date Type Department Care Team (Late st Contact Info) Description 03/04/2025 Patient Outreach [facility] 230 [place] [address] Cathleen Sears MD 230 [place], [place] [phone] Social History Tobacco Use Types Packs/Day Years [...] Description 03/19/2025 11:15 AM EST Office Visit [facility] 230 [place] [address] Cathleen Sears MD 230 [place] [address] 05/10/2025 2:00 PM EST Office Visit [facility] 267 [place] [address] Silvia Cameron, GERARDO [address] [place] [address] documented as of this encounter Goals Goal [...] documented as of this encounter Care Teams City Solicitor Relationship Specialty Start Date End Date Cathleen Sears MD [address] [place] [address] [phone] PCP - General Family Medicine 03/28/18 Tad Baez, LaurenD 230 [place], [place] [phone] Pharmacist Internal Medicine 03/16/24 Sylwia Camarena, BRIANNA 230 [place], [place] [phone] Registered Nurse Family Medicine 01/21/25 Josey Joy 01/21/25 [facility] 05/04/17 documented as of this encounter
--- OUTSIDE RECORDS SUMMARY | 2025-03-05 06:40 | XMS_ITS | Encounter Summary ---
Author Organization [employer] Address [address] 7t [place] [address] Care Team Providers Care Conflicts Analyst Name Role Phone Cathleen Sears MD Primary Care Provider Tad Baez PharmD Unavailable Sylwia Camarena RN Unavailable [phone] Josey Joy Unavailable Encounter Details Date Type Department Care Team (Late st Contact Info) Description 10/18/2024 Orders Only [facility] [address] [place] [address] Cathleen Sears MD 230 [place], [place] [phone] Social History Tobacco Use Types Packs/Day Years [...] Description 03/19/2025 11:15 AM EST Office Visit [facility] [address] [place] [address] Cathleen Sears MD 230 [place] [address] 05/10/2025 2:00 PM EST Office Visit [facility] OPT[facility]ETRY 267 [place] [address] Silvia Cameron, OD 267 [place] [address] documented as of this encounter Visit Diagnoses Not on filedocumented in this encounter Additional Health Concerns Assessment Noted Time PHQ-9 Depression Total Score: 19 025 1:21 PM EDT documented as of this encounter Care Teams Conflicts Analyst Relationship Specialty Start Date End Date Cathleen Sears MD 230 [place] [address] PCP - General Family Medicine 03/28/18 Tad Baez, LaurenD [address] [place] [address] Pharmacist Internal Medicine 03/16/24 Sylwia Camarena, BRIANNA [address] [place] [address] Registered Nurse Family Medicine 01/21/25 Josey Joy 01/21/25 [facility] 05/04/17 documented as of this encounter
--- OUTSIDE RECORDS SUMMARY | 2025-03-05 06:40 | XMS_ITS | Encounter Summary ---
Author Organization [employer] Address [address] [facility] 7t [place] [address] Care Team Providers Care Director Of Dementia Operations Name Role Phone Cathleen Sears MD Primary Care Provider [phone] Tad Baez PharmD Unavailable [phone] Bhumi Monroe RN Unavailable [phone] Sylwia Camarena RN Unavailable [phone] Josey Joy Unavailable Reason for Referral * Consultation (Routine) - Closed Specialty Diagnoses / Procedures Referred By Sina nicolas Referred To Contact Otolaryngology Diagnoses Parotid mass Sensorineural hearing loss (SNHL) of both ears Cathleen Sears MD 230 [place] [address] Phone: tel: fax: Referral ID Status Reason Start Date Expiration Date V isits Requested Visits Authorized [id number] Closed Specialty Services Required 06/20/2024 06/20/2025 1 1 Encounter Details Date Type Department Care Team (Late st Contact Info) Description 06/20/2024 Orders Only [facility] [address] [place] [address] [phone] Cathleen Sears MD [address] [place], [place] [phone] Parotid mass (Primary Dx); Sensorineural hearing loss [...] Description 03/19/2025 11:15 AM EST Office Visit [facility] [address] [place] [address] Cathleen Sears MD [address] [place], [place] 05/10/2025 2:00 PM EST Office Visit [facility] OPTOMETRY 267 [place] [address] Tarka, Silvia, OD 267 [place] [address] Scheduled Referrals Name Type Priority Associated Diagnoses [...] of this encounter Care Teams Director Of Dementia Operations Relationship Specialty Start Date End Date Cathleen Sears MD [address] [place] [address] PCP - General Family Medicine 03/28/18 Tad Baez, LaurenD [address] [place] [address] Pharmacist Internal Medicine 03/16/24 Bhumi Monroe RN [address] [place] [address] Cigarette Machines MechanicEngineering And Operations Director 05/21/24 08/21/24 Sylwia Camarena RN [address] [place] [address] Registered Nurse Family Medicine 01/21/25 Josey Joy 01/21/25 [facility] 05/04/17 documented as of this encounter
--- OUTSIDE RECORDS SUMMARY | 2025-03-05 06:40 | XMS_ITS | Encounter Summary ---
Author Organization [employer] Address [address] [facility] 7t [place] [address] Care Team Providers Care Sales Representative Name Role Phone Cathleen Sears MD Primary Care Provider Tad Baez PharmD Unavailable Bhumi Monroe RN Unavailable [phone] Sylwia Camarena RN Unavailable [phone] Josey Joy Unavailable Reason for Visit * Reason Onset Date Comments Pt1 04/10/2024 Encounter Details Date Type Department Care Team (Late st Contact Info) Description 04/10/2024 Telephone [facility] 230 [place], [place] [phone] Cathleen Sears MD 230 [place], [place] [phone] Pt1 Social History Tobacco Use Types Packs/Day [...] Yes Provider name or facility name: [address] [place] [address] [address], [place] [address] [facility] Escort needed: Y/N: No Do you have a wheelchair: Y/N: No If yes- Manual or electric: Visits: (3 x Month) Pt has Apt this Tuesday documented in this encounter Plan of Treatment Upcoming Encounters Date Type Department Care Team (Late st Contact Info) Description 03/19/2025 11:15 AM EST Office Visit [facility] 230 [place] [address] Cathleen Sears MD 230 [place] [address] 05/10/2025 2:00 PM EST Office Visit [facility] OPTOMETRY 267 [place] [address] Tarka, Silvia, OD 267 [place] [address] documented as of this encounter Visit Diagnoses Not on filedocumented in this encounter Additional Health Concerns Assessment Noted Time PHQ-9 Depression Total Score: 2 07/22/19 24 10:34 AM EDT documented as of this encounter Care Teams Sales Representative Relationship Specialty Start Date End Date Cathleen Sears MD [address] [place] [address] PCP - General Family Medicine 03/28/18 Tad Baez, LaurenD [address] [place] [address] Pharmacist Internal Medicine 03/16/24 Bhumi Monroe, BRIANNA [address] [place] [address] Ultimate Hoops RefereeSpeech Writer 05/21/24 08/21/24 Sylwia Camarena, BRIANNA [address] [place] [address] Registered Nurse Family Medicine 01/21/25 Josey Joy 01/21/25 [facility] 05/04/17 documented as of this encounter
--- OUTSIDE RECORDS SUMMARY | 2025-03-05 06:40 | XMS_ITS | Encounter Summary ---
Author Organization [employer] Address [address] 7t [place] [address] Care Team Providers Care Wildland Firefighter Name Role Phone Cathleen Sears MD Primary Care Provider Tad Baez PharmD Unavailable Sylwia Camarena RN Unavailable [phone] Josey Joy Unavailable Encounter Details Date Type Department Care Team (Late st Contact Info) Description 10/18/2024 Orders Only [facility] 230 [place] [address] Cathleen Sears MD 230 [place], [place] [phone] Social History Tobacco Use Types Packs/Day Years [...] Description 03/19/2025 11:15 AM EST Office Visit [facility] [address] [place] [address] Cathleen Sears MD 230 [place] [address] 05/10/2025 2:00 PM EST Office Visit [facility] OPTOMETRY [address] [place] [address] Silvia Cameron, OD 267 [place] [address] documented as of this encounter Visit Diagnoses Not on filedocumented in this encounter Additional Health Concerns Assessment Noted Time PHQ-9 Depression Total Score: 19 025 1:21 PM EDT documented as of this encounter Care Teams Wildland Firefighter Relationship Specialty Start Date End Date Cathleen Sears MD 230 [place] [address] PCP - General Family Medicine 03/28/18 Tad Baez, LaurenD [address] [place] [address] Pharmacist Internal Medicine 03/16/24 Sylwia Camarena, BRIANNA [address] [place] [address] Registered Nurse Family Medicine 01/21/25 Josey Joy 01/21/25 [facility] 05/04/17 documented as of this encounter
--- OUTSIDE RECORDS SUMMARY | 2025-03-05 06:40 | XMS_ITS | Encounter Summary ---
Author Organization [employer] Address [address] [facility] 7t [place] [address] Care Team Providers Care Textile Supervisor Name Role Phone Cathleen Sears MD Primary Care Provider Tad Baez PharmD Unavailable Bhumi Monroe RN Unavailable [phone] Sylwia Camarena RN Unavailable [phone] Josey Joy Unavailable Reason for Referral * Imaging (Routine) - Closed Specialty Diagnoses / Procedures Referred By Sina nicolas Referred To Contact Radiology Diagnoses Zayra's thyroiditis Preauricular mass Parotid mass Procedures CT Soft Tissue Neck w/ Contrast Cathleen Sears MD 230 [place] [address] Phone: tel: fax: [facility] [address] [place] [phone] Phone: tel: fax: Referral ID Status Reason Start Date Expiration Date Visits Re quested Visits Authorized [id number] Closed 02/07/2024 02/06/2025 1 1 Encounter Details Date Type Department Care Team (Late st Contact Info) Description 02/04/2024 Orders Only [facility] [address] [place], [place] [phone] Cathleen Sears MD [address] [place], [place] [phone] Zayra's thyroiditis (Primary Dx); Preauricular mass; Parotid [...] Description 03/19/2025 11:15 AM EST Office Visit [facility] 230 [place] [address] Cathleen Sears MD [address] [place] [address] 05/10/2025 2:00 PM EST Office Visit [facility] OPTOMETRY [address] [place] [address] TarSilvia storey, OD 267 [place] [address] Scheduled Orders Name Type Priority Associated Diagnoses [...] documented as of this encounter Care Teams Textile Supervisor Relationship Specialty Start Date End Date Cathleen Sears MD [address] [place] [address] PCP - General Family Medicine 03/28/18 Tad Baez, LaurenD [address] [place] [address] Pharmacist Internal Medicine 03/16/24 Bhumi Monroe RN [address] [place] [address] Clock And Watch AssemblerTopper Packer 05/21/24 08/21/24 Sylwia Camarena, BRIANNA [address] [place] [address] Registered Nurse Family Medicine 01/21/25 Josey Joy 01/21/25 [facility] 05/04/17 documented as of this encounter
--- OUTSIDE RECORDS SUMMARY | 2025-03-05 06:41 | XMS_ITS | Encounter Summary ---
Author Organization [employer] Address [address] [facility] 7t [place] [address] Care Team Providers Care Overhauler Helper Name Role Phone Cathleen Sears MD Primary Care Provider [phone] Tad Baez PharmD Unavailable Bhumi Monroe RN Unavailable [phone] Sylwia Camarena RN Unavailable [phone] Josey Joy Unavailable Reason for Visit * Reason Comments Med Refill Encounter Details Date Type Department Care Team (Late st Contact Info) Description 08/10/2024 Refill [facility] 230 [place], [place] [phone] Laura Shirley DO 230 [place], [place] [phone] Social History Tobacco Use Types Packs/Day Years [...] Description 03/19/2025 11:15 AM EST Office Visit [facility] 230 [place] [address] Cathleen Sears MD [address] [place] [address] 05/10/2025 2:00 PM EST Office Visit [facility] OPTOMETRY 267 [place] [address] Silvia Cameron, OD 267 [place] [address] documented as of this encounter Visit Diagnoses Not on filedocumented in this encounter Additional Health Concerns Assessment Noted Time PHQ-9 Depression Total Score: 2 07/22/19 24 10:34 AM EDT documented as of this encounter Care Teams Overhauler Helper Relationship Specialty Start Date End Date Cathleen Sears MD 230 [place] [address] PCP - General Family Medicine 03/28/18 Tad Baez, LaurenD [address] [place] [address] Pharmacist Internal Medicine 03/16/24 Bhumi Monroe, BRIANNA [address] [place] [address] FarmworkersCommodities Clerk 05/21/24 08/21/24 Sylwia Camarena, BRIANNA 230 [place] [address] Registered Nurse Family Medicine 01/21/25 Josey Joy 01/21/25 [facility] 05/04/17 documented as of this encounter
--- OUTSIDE RECORDS SUMMARY | 2025-03-05 06:41 | XMS_ITS | Encounter Summary ---
Author Organization [employer] Address [address] [facility] 7t [place] [address] Care Team Providers Care Clinical Pharmacologist Name Role Phone Cathleen Sears MD Primary Care Provider [phone] Ivett Smith RN Unavailable Unavailable Tad Baez PharmD Unavailable [phone] Bhumi Monroe RN Unavailable Sylwia Camarena RN Unavailable [phone] Josey Joy Unavailable Encounter Details Date Type Department Care Team (Late st Contact Info) Description 03/19/[address] [facility] [address] [place] [address] Laura Nova LPN Social History Tobacco Use [...] Description 03/19/2025 11:15 AM EST Office [facility] 230 [place], [place] [phone] Cathleen Sears MD 230 [place], [place] [phone] 05/10/2025 2:00 PM EST Office Visit [facility] OPT[facility]RY 267 [place] [address] Silvia Cameron, OD 267 [place] [address] documented as of this encounter Visit Diagnoses Not on filedocumented in this encounter Care Teams Clinical Pharmacologist Relationship Specialty Start Date End Date Cathleen Sears MD [address] [place] [address] PCP - General Family Medicine 03/28/18 Ivett Smith, BRIANNA [address] [place] [address] Registered Nurse Case Management 12/30/22 01/24/24 Tad Baez, LaurenD [address] [place] [address] Pharmacist Internal Medicine 03/16/24 Bhumi Monroe, BRIANNA [address] [place] [address] Panel Saw OperatorDry Cleaning Machine Operator 05/21/24 08/21/24 Sylwia Camarena, RN [address] [place] [address] Registered Nurse Family Medicine 01/21/25 Josey Joy 01/21/25 [facility] 05/04/17 documented as of this encounter
--- OUTSIDE RECORDS SUMMARY | 2025-03-05 06:41 | XMS_ITS | Encounter Summary ---
Author Organization [employer] Address 75 [facility] 7t [place] [address] Care Team Providers Care Laundry Tub Maker Name Role Phone Cathleen Sears MD Primary Care Provider Ivett Smith RN Unavailable Unavailable Tad Baez PharmD Unavailable Bhumi Monroe RN Unavailable [phone] Sylwia Camarena RN Unavailable [phone] Josey Joy Unavailable Encounter Details Date Type Department Care Team (Late st Contact Info) Description 04/29/2022 Orders Only [facility] MEDICINE [address] [place] [address] Cathleen Sears MD [address] [place] [address] Dental decay (Primary Dx) Social History Tobacco [...] Description 03/19/2025 11:15 AM EST Office Visit [facility] MEDICINE [address] [place] [address] Cathleen Sears MD [address] [place] [address] 05/10/2025 2:00 PM EST Office Visit [facility] OPTOMETRY [address] [place] [address] TarSilvia storey, OD [address] [place] [address] documented as of this encounter Visit Diagnoses Diagnosis Dental decay- Primary Unspecified dental caries documented in this encounter Care Teams Laundry Tub Maker Relationship Specialty Start Date End Date Cathleen Sears MD [address] [place] [address] PCP - General Family Medicine 03/28/18 Ivett Smith, BRIANNA [address] [place] [address] Registered Nurse Case Management 12/30/22 01/24/24 Tad Baez, LaurenD [address] [place] [address] Pharmacist Internal Medicine 03/16/24 Bhumi Monroe, RN [address] [place] [address] Audiology DirectorDirector Of Primary 05/21/24 08/21/24 Sylwia Camarena, BRIANNA [address] [place] [address] Registered Nurse Family Medicine 01/21/25 Josey Joy 01/21/25 [facility] 05/04/17 documented as of this encounter
--- OUTSIDE RECORDS SUMMARY | 2025-03-05 06:41 | XMS_ITS | Encounter Summary ---
Author Organization [employer] Address 75 [facility] 7t [place] [address] Care Team Providers Care National Facilities Manager Name Role Phone Cathleen Sears MD Primary Care Provider Ivett Smith RN Unavailable Unavailable Tad Baez PharmD Unavailable [phone] Bhumi Monroe RN Unavailable [phone] Sylwia Camarena RN Unavailable [phone] Josey Joy Unavailable Encounter Details Date Type Department Care Team (Late st Contact Info) Description 04/12/2022 Abstract [facility] MEDICINE [address] [place], [place] [phone] Cathleen Sears MD [address] [place], [place] [phone] Social History Tobacco Use Types Packs/Day Years [...] Description 03/19/2025 11:15 AM EST Office Visit [facility] MEDICINE [address] [place] [address] Cathleen Sears MD [address] [place] [address] 05/10/2025 2:00 PM EST Office Visit [facility] OPTOMETRY [address] [place] [address] Rakesh Silvia, OD [address] [place] [address] documented as of this encounter Procedures Procedure Name Priority Date/Time Associated Diagnosis Comments THINPREP PAP AND HPV DNA REFLEX GENOTYPES 16,18 Routine 02/07/2019 12:00 AM EST documented in this encounter Results * Thinprepr PAP And HPV DNA Reflex Genotypes 16,18 (02/07/2019 12:00 AM EST) us Historical Provider LAB PATHOLOGY ORDERABLES Final Result Performing Organization Address City/State/[facility] de Phone Number [facility] [address] [place] [phone] documented in this encounter Visit Diagnoses Not on filedocumented in this encounter Care Teams National Facilities Manager Relationship Specialty Start Date End Date Cathleen Sears MD [address] [place] [address] PCP - General Family Medicine 03/28/18 Ivett Smith, BRIANNA [address] [place] [address] Registered Nurse Case Management 12/30/22 01/24/24 Tad Baez, LaurenD [address] [place] [address] Pharmacist Internal Medicine 03/16/24 Bhumi Monroe, BRIANNA [address] [place] [address] Legal Entity ControllerRepair Service Dispatcher 05/21/24 08/21/24 Sylwia Camarena RN [address] [place] [address] Registered Nurse Family Medicine 01/21/25 Josey Joy 01/21/25 [facility] 05/04/17 documented as of this encounter
--- OUTSIDE RECORDS SUMMARY | 2025-03-05 06:41 | XMS_ITS ---
Author Organization [employer] Address [address] [facility] [address] 7t [place] [address] Care Team Providers Care Cocoa Butter Filter Operator Name Role Phone Cathleen Sears MD Primary Care Provider Tad Baez PharmD Unavailable Sylwia Camarena RN Unavailable [phone] Josey Joy Unavailable CM Complex Status:Enrolled (Active) Start date:01/21/2025 Enrollment date:02/18/2025 Enrollment reason:Referred by provider Overview Home Health Utilization Referral- Connection for appropriate resources and collaboration for reduction for skilled VNA services. Case Team Name Relationship Phone Sylwia Camarena RN(Responsible Staff) Registered Nurse Continued Care and Services Coordination
--- OUTSIDE RECORDS SUMMARY | 2025-03-05 06:41 | XMS_ITS | Encounter Summary ---
Author Organization [employer] Address [address] [facility] [address] 7t [place] [address] Care Team Providers Care Install Technician Name Role Phone Cathleen Sears MD Primary Care Provider Tad Baez PharmD Unavailable [phone] Sylwia Camarena RN Unavailable [phone] Josey Joy Unavailable Encounter Details Date Type Department Care Team (Late st Contact Info) Description 08/28/2024 Orders Only [facility] MEDICINE [address] [place] [address] Sandra Hoffman MD [address] [place], [place] [phone] Social History Tobacco Use Types Packs/Day Years [...] 11:15 AM EST Office Visit [facility] MEDICINE [address] [place] [address] Cathleen Sears MD [address] [place] [address] 05/10/2025 2:00 PM EST Office Visit [facility] OPTOMETRY [address] [place] [address] Silvia Cameron, OD 267 [place] [address] documented as of this encounter Procedures Procedure Name Priority Date/Time Associated Diagnosis Comments XR CHEST 1 VIEW Routine 09/09/2024 6:23 PM EDT documented in this encounter Results * XR Chest 1 View (09/09/2024 6:23 PM EDT) Anatomical Region Laterality Modality Chest Radiographic Evon ging 09/09/2024 6:23 PM EDT Narrative 09/09/2024 6:25 PM EDT [address] [address] XRay Report Signed Patient: Sandra Rose MR# : [id number] : 1965 Acct:[id number] Age/Sex: 58 / F ADM Date: 09/09/24 Loc: .ED Attending Dr: Ordering Physician: Joel Roman MD Date of Service: 09/09/24 Procedure(s): XR chest 1V Accession Number(s): [id number] cc: [facility]; Joel Roman MD CLINICAL HISTORY: Shortness [...] in OV> 09/09/241823 DD/ 22 TD/TT: 09/09/241822 Fuel Cell Battery Technician: Procedure Note Donotuseinterpreter, Image - 09/09/[address] [address] XRay Report Signed Patient: Sandra Rose DMR# : [id number] : 1965Acct:[id number] Age/Sex: 58 / FADM Date: 09/09/24 Loc: HO.ED Attending Dr: Ordering Physician: Joel Roman MD Date of Service: 09/09/24 Procedure(s): XR chest 1V Accession Number(s): [id number] cc: [facility]; Joel Roman MD CLINICAL HISTORY: Shortness [...] in OV> 09/09/241823 DD/ 22 TD/TT: 09/09/241822 Fuel Cell Battery Technician: [facility] External Provider IMG XR PROCEDURES Edited Result - Final documented in this encounter Visit Diagnoses Not on filedocumented in this encounter Additional Health Concerns Assessment Noted Time PHQ-9 Depression Total Score: 2 07/22/19 24 10:34 AM EDT documented as of this encounter Care Teams Install Technician Relationship Specialty Start Date End Date Cathleen Sears MD [address] [place] [address] PCP - General Family Medicine 03/28/18 Tad Baez, PharmD [address] [place], [place] [phone] Pharmacist Internal Medicine 03/16/24 Sylwia Camarena, BRIANNA [address] [place] [address] Registered Nurse Family Medicine 01/21/25 Josey Joy 01/21/25 [facility] 05/04/17 documented as of this encounter
--- OUTSIDE RECORDS SUMMARY | 2025-03-05 06:41 | XMS_ITS | Encounter Summary ---
Author Organization [employer] Address 75 [facility] 7t [place] [address] Care Team Providers Care Manager Internal Name Role Phone Cathleen Sears MD Primary Care Provider Ivett Smith RN Unavailable Unavailable Tad Baez PharmD Unavailable [phone] Bhumi Monroe RN Unavailable [phone] Sylwia Camarena RN Unavailable [phone] Josey Joy Unavailable Encounter Details Date Type Department Care Team (Late st Contact Info) Description 07/27/2023 Orders Only [facility] MEDICINE [address] [place], [place] [phone] Cathleen Sears MD 230 [place], [place] [phone] Hypertension associated with diabetes (CMS/HCC) (CMS/HCC) (Primary [...] Description 03/19/2025 11:15 AM EST Office Visit [facility] MEDICINE [address] [place] [address] Cathleen Sears MD [address] [place] [address] 05/10/2025 2:00 PM EST Office Visit [facility] OPTOMETRY [address] [place] [address] Silvia Cameron, OD [address] [place] [address] documented as of this encounter Procedures Procedure Name Priority Date/Time Associated Diagnosis Comments TSH W/REFLEX TO FT4 Routine 08/03/2023 1 :18 PM EDT Leg swelling BASIC METABOLIC PANEL Routine 08/03/2023 1:18 PM EDT Leg swelling documented in this encounter Results * TSH with Reflex to Free T4 (08/03/2023 1:18 PM EDT) TSH reflex Free T4 0.57 0.32 - 4.0 uIU/mL [facility] Blood 08/03/2023 1:18 PM EDT 08/03/2023 4:15 PM EDT Cathleen Sears MD LAB BLOOD ORDERABLES Final Resul t Performing Organization Address [facility] [[email or web address]] de Phone Number [facility] [address] [place] [phone] * (ABNORMAL) Basic Metabolic Panel (08/03/2023 1:18 PM EDT) Sodium 142 135 - 145 mmol/L [facility] Potassium 3.4 3.3 - 5.1 mmol/L [facility] Chloride 93(L) 96 - 108 mmol/L [facility] Carbon Dioxide 36(H) 22 - 29 mmol/L [facility] Anion Gap 16 12 - 20 [facility] Urea Nitrogen (BUN) 11 9 - 16 mg/dL [facility] Creatinine, Serum 0.62 0.5 - 1.4 mg/dL [facility] Estimated Glomerular Filt Rate >60 [facility] Comment:NOTE: For -Am erican individuals, multiply the result by 1.210.Chronic Kidney Disease: Estimated GFR < 60 mL/min/1.24c8Namgnu Kidney Disease: Estimated GFR < 15 mL/min/1.73m2 Glucose 130(H) 60 - 115 mg/dL [facility] Calcium 10.4(H) 8.4 - 10.2 mg/dL [facility] Blood Venous blood specimen / Unknown 08/03/2023 1:18 PM EDT 08/03/2023 4:15 PM EDT Cathleen Sears MD LAB BLOOD ORDERABLES Final Resul t Performing Organization Address City/[facility] Co de Phone Number [facility] [address] [place] [address] [phone] documented in this encounter Visit Diagnoses Diagnosis Hypertension associated with diabetes (HCC)- Primary Unspecified essential hypertension Leg swelling Swelling of limb documented in this encounter Additional Health Concerns Assessment Noted Time PHQ-9 Depression Total Score: 2 07/22/19 24 10:34 AM EDT documented as of this encounter Care Teams Manager Internal Relationship Specialty Start Date End Date Cathleen Sears MD [address] [place] [address] PCP - General Family Medicine 03/28/18 Ivett Smith, BRIANNA [address] [place] [address] Registered Nurse Case Management 12/30/22 01/24/24 Tad Baez, LaurenD [address] [place] [address] Pharmacist Internal Medicine 03/16/24 Bhumi Monroe, BRIANNA [address] [place] [address] Document Control AssociateTrimmer Machine Operator 05/21/24 08/21/24 Sylwia Camarena, RN [address] [place] [address] Registered Nurse Family Medicine 01/21/25 Josey Joy 01/21/25 [facility] 05/04/17 documented as of this encounter
--- OUTSIDE RECORDS SUMMARY | 2025-03-05 06:41 | XMS_ITS | Encounter Summary ---
Author Organization [employer] Address 75 [facility] 7t [place] [address] Care Team Providers Care Pipefitter Name Role Phone Cathleen Sears MD Primary Care Provider [phone] Ivett Smith RN Unavailable Unavailable Tad Baez PharmD Unavailable [phone] Bhumi Monroe RN Unavailable [phone] Sylwia Camarena RN Unavailable [phone] Josey Joy Unavailable Reason for Visit * Reason Onset Date Comments FYI 08/16/2023 Encounter Details Date Type Department Care Team (Late st Contact Info) Description 08/16/2023 Telephone [facility] MEDICINE [address] [place], [place] [phone] Cathleen Sears MD [address] [place], [place] [phone] FYI Social History Tobacco Use Types Packs/Day [...] t he electric, gas, oil or water On The Net Yet threatened to shut off services in your [...] calling to inform pt is currently at [facility] due to shortness of breath . documented in this encounter Plan of Treatment Upcoming Encounters Date Type Department Care Team ([facility] st Contact Info) Description 03/19/2025 11:15 AM EST Office Visit [facility] MEDICINE [address] [place] [address] Cathleen Sears MD [address] [place] [address] 05/10/2025 2:00 PM EST Office Visit [facility] OPTOMETRY [address] [place] [address] Silvia Cameron, OD [address] [place] [address] documented as of this encounter Visit Diagnoses Not on filedocumented in this encounter Additional Health Concerns Assessment Noted Time PHQ-9 Depression Total Score: 2 07/22/19 10:34 AM EDT documented as of this encounter Care Teams Pipefitter Relationship Specialty Start Date End Date Cathleen Sears MD [address] [place] [address] PCP - General Family Medicine 03/28/18 Ivett Smith, BRIANNA [address] [place] [address] Registered Nurse Case Management 12/30/22 01/24/24 Tad Baez, Sanjiv [address] [place] [address] Pharmacist Internal Medicine 03/16/24 Bhumi Monroe RN [address] [place] [address] Janitorial Account ManagerHead Athletic Trainer/Strength Coach 05/21/24 08/21/24 Sylwia Camarena, BRIANNA [address] [place] [address] Registered Nurse Family Medicine 01/21/25 Josey Joy 01/21/25 [facility] 05/04/17 documented as of this encounter
--- OUTSIDE RECORDS SUMMARY | 2025-03-05 06:41 | XMS_ITS | Encounter Summary ---
Author Organization [employer] Address 75 [facility] 7t [place] [address] Care Team Providers Care Distiller Name Role Phone Cathleen eSars MD Primary Care Provider [phone] Tad Baez PharmD Unavailable Bhumi Monroe RN Unavailable [phone] Sylwia Camarena RN Unavailable [phone] Josey Joy Unavailable Encounter Details Date Type Department Care Team (Late st Contact Info) Description 07/23/2024 Orders Only [facility] MEDICINE [address] [place], [place] [phone] Cathleen Sears MD [address] [place], [place] [phone] Metabolic dysfunction-associated steatotic liver disease (MASLD) (Primary [...] Description 03/19/2025 11:15 AM EST Office Visit [facility] MEDICINE [address] [place], [place] [phone] Cathleen Sears MD [address] [place] [address] 05/10/2025 2:00 PM EST Office Visit [facility] OPTOMETRY [address] [place] [address] Silvia Cameron, OD [address] [place] [address] Scheduled Orders Name Type Priority Associated Diagnoses [...] documented as of this encounter Care Teams Distiller Relationship Specialty Start Date End Date Cathleen Sears MD [address] [place] [address] PCP - General Family Medicine 03/28/18 Tad Baez PharmD [address] [place] [address] Pharmacist Internal Medicine 03/16/24 Bhumi Monroe, BRIANNA [address] [place] [address] Certified Athletic TrainerSubstation Operator Automatic 05/21/24 08/21/24 Sylwia Camarena, BRIANNA [address] [place] [address] Registered Nurse Family Medicine 01/21/25 Josey Joy 01/21/25 [facility] 05/04/17 documented as of this encounter
--- OUTSIDE RECORDS SUMMARY | 2025-03-05 06:41 | XMS_ITS ---
Author Organization [employer] Address [address] [facility] [address] 7t [place] [address] Care Team Providers Care Rn Neonatal Icu Name Role Phone Cathleen Sears MD Primary Care Provider [phone] Tad Baez PharmD Unavailable [phone] Sylwia Camarena RN Unavailable [phone] Josey Joy Unavailable [facility] Complex Status:Enrolled (Active) Start date:01/22/2025 Enrollment date:02/14/2025 Enrollment reason:Referred by provider Overview Home Health Utilization Referral- Please outreach to patient. Case Team Name Relationship Phone Josey Joy(Responsible Staff) Continued Care and Services Coordination
--- OUTSIDE RECORDS SUMMARY | 2025-03-05 06:41 | XMS_ITS | Encounter Summary ---
Author Organization [employer] Address 75 [facility] 7t [place] [address] Care Team Providers Care Pre Sales Technical Consultant Name Role Phone Cathleen Sears MD Primary Care Provider Ivett Smith RN Unavailable Unavailable Tad Baez PharmD Unavailable [phone] Bhumi Monroe RN Unavailable [phone] Sylwia Camarena RN Unavailable [phone] Josey Joy Unavailable Encounter Details Date Type Department Care Team (Late st Contact Info) Description 09/08/2023 Telephone [facility] MEDICINE 230 [place], [place] [phone] Cathleen Sears MD [address] [place], [place] [phone] Social History Tobacco Use Types Packs/Day Years [...] Description 03/19/2025 11:15 AM EST Office Visit [facility] MEDICINE [address] [place] [address] Cathleen Sears MD [address] [place] [address] 05/10/2025 2:00 PM EST Office Visit [facility] OPTOMETRY [address] [place], [place] [phone] Silvia Cameron, OD [address] [place] [address] documented as of this encounter Visit Diagnoses Not on filedocumented in this encounter Additional Health Concerns Assessment Noted Time PHQ-9 Depression Total Score: 2 07/22/19 24 10:34 AM EDT documented as of this encounter Care Teams Pre Sales Technical Consultant Relationship Specialty Start Date End Date Cathleen Sears MD [address] [place] [address] PCP - General Family Medicine 03/28/18 Ivett Smith, RN [address] [place] [address] Registered Nurse Case Management 12/30/22 01/24/24 Tad Baez, LaurenD [address] [place] [address] Pharmacist Internal Medicine 03/16/24 Bhumi Monroe RN [address] [place] [address] Design Printer BalloonLogistics Team Lead 05/21/24 08/21/24 Sylwia Camarena, BRIANNA [address] [place] [address] Registered Nurse Family Medicine 01/21/25 Josey Joy 01/21/25 [facility] 05/04/17 documented as of this encounter
[2025-03-05] MEDS: Ketamine HCl/NS 50 MG/5 ML SYRINGE 80 MG IVPUSH ×2 (06:52)
[2025-03-05 06:56] LABS: INTERNATIONAL NORM RATIO 0.9 (0.9-1.1); Prothrombin Time 11.2 SEC (11.2-13.5)
[2025-03-05 06:59] LABS: Partial Thromboplastin Time 30.5 SEC (26.7-34.1)
--- NOTE | 2025-03-05 07:03 | PC.NURSE ---
Triage, pt not able to answer questions, medicated per mar, pt awoken yelling, pt foaming at the mouth agonal breathing, notified, provider, provider came to assess at bed time, pt loss pulse, code blue page over head, please see code blue sheet for documentation. Verbal report given to BRIANNA Naylor.
--- NOTE | 2025-03-05 07:18 | PC.NURSE ---
0624 pt noted to be agonally breathing per primary RN Anisha, providers called to bedside, PEA on monitor, CPR initiated 0627 Long (yellow) IO inserted to right promixal tibia per Dr. Knight 0628 pulse check, sinus on the monitor, 93 BPM 0629 pt being bagged 46%, preparing for intubation 0630 BP 189/101 0631 80mg ketamine through right proximal tibia IO, difficult push per Anisha RN 0632 HR 111, O2: 95%, 215/113 0634 40 mg Rocuronium given to right proximal tibia, still difficult push per Anisha RN. 0636 Adult (blue) IO inserted per Dr. Gomez to left proximal tibia 0637 Pt remains difficult to visualize airway. Additional 40 mg Rocuronium given per left proximal tibia. [address] Knight bagging at this time. 0639 #20 ultrasound guided PIV placed to right forearm. 0640 Pt successfully intubated with 7.5 ETT +colorimetry; Additional 80mg Ketamine given through PIV to right forearm 0640 ETCO2 80 0642 Bloody, frothy, sputum noted to ETT, being suctionned at this time, ?flash pulmonary edema, fluids paused per Dr. Gomez 0644 141/97 0645 Propofol infusion initiated at 30 mcg/kg/min 0645 #20 ultrasound guided PIV initiated to left forearm.
[2025-03-05 07:19] LABS: MANUAL DIFF FLAG NO
[2025-03-05 07:21] LABS: Hematocrit 51.2 % (37.0-47.0); Hemoglobin 14.8 g/dl (12.0-16.0); Imm Gran Abs Auto 0.10 X10*3/uL (0.00-0.03); Imm Gran Pct Auto 0.8 % (0.0-0.4); Lymphocytes Absolute Auto 4.8 X10*3/uL (1.2-4.9); Mean Corpuscular HGB Conc 28.9 g/dl (31.0-35.0); Mean Corpuscular Hemoglobin 27.6 pg (27.0-33.0); Mean Corpuscular Volume 95.5 fL (80.0-98.0); NRBC Abs Auto 0.020 X10*3/uL (0.0-0.012); NRBC Pct Auto 0.2 /100WBC (0.0-0.2); Platelet Count 164 X10*3/uL (160-400); Red Blood Count 5.36 X10*6/uL (4.20-5.50); White Blood Count 12.0 X10*3/uL (4.8-10.8)
[2025-03-05 07:29] LABS: Troponin-I High Sensitivity < 2.7 ng/L (<3.5-17.0)
[2025-03-05 07:47] LABS: Alanine Aminotransferase 14 U/L (0-31); Albumin Level 4.3 g/dL (3.5-5.0); Alkaline Phosphatase 93 U/L (39-117); Anion Gap 12 (12-20); Aspartate Amino Transferase 19 U/L (5-31); Blood Urea Nitrogen 8 mg/dL (9-16); Calcium 9.4 mg/dL (8.4-10.2); Chloride 94 mmol/L (96-108); Creatinine Clr Calc Pharmacy 102.4; Estimated Glomerular Filt Rate > 60; Lipase 36 U/L (8-78); Magnesium 2.3 mg/dL (1.6-2.6); Potassium 4.4 mmol/L (3.3-5.1); Sodium 143 mmol/L (135-145); Total Protein 7.6 g/dL (6.5-8.0)
[2025-03-05 07:50] LABS: Ammonia 89 umol/L (13-55)
[2025-03-05 07:53] LABS: ABG HCO3 41 mmol/L (22-26); ABG O2 % Saturation 99.0 %
[2025-03-05 08:09] LABS: Appearance Urine Clear; Glucose Urine UA 500 mg/dL (Negative); PH 6.5 (5.0-9.0); Specific Gravity - Urine 1.015 (1.005-1.025); UMIC TRIGGER UACC YES
[2025-03-05 08:18] LABS: Carbon Dioxide 41 mmol/L (22-29)
[2025-03-05 08:18] LABS: Cannabinoid Screen Urine Not Detected (Not Detect)
[2025-03-05] MEDS: Ketamine HCl/NS 50 MG/5 ML SYRINGE 100 MG IVPUSH (08:31)
[2025-03-05 08:44] LABS: Free T4 (Free Thyroxine) 0.66 ng/dL (0.71-1.85)
[2025-03-05 09:19] LABS: Reflex Lactate? Lactic Acid Added
--- NOTE | 2025-03-05 09:46 | PC.NURSE ---
Pt with labile BPs since I took pt over at 7am Pt given more sedation as she was waking up and fighting the vent. Good effect after Rocuronium. [id number] CT done and pt transferred to ICU. Bedside report given. IV lines X2 infiltrated and pt only has 1 access that works for fluid bolus but Norepi and Prop are running in that line. Attempts to infuse through existing IO did not work either. Thought here is blood return and it flushes. PROGRAM OFFICER will start new US access (he started one in ED to replace 1 blown line- other line was accidentally pulled out during IV CT contrast set up. Third line previously inserted infiltrated AFTER CT contrast infused. Pt has received only 500 mL of sepsis bolus as of this note- ICU provider and PROGRAM OFFICER aware - BPs stabilized on Norepi. Pt in NAD on transfer. OG still draining thick yellow/brown and F/C draining large amounts clr yellow. OGT is at 65 at the lip and Endo is 25 at the lip.
[2025-03-05] MEDS: iohexoL 350 MG/ML 100 ML INFUS..BTL IV (09:47)
--- NOTE | 2025-03-05 10:03 | MHC.CM.PN ---
Pt arrived to ED unresponsive and had a Code Blue in the ED. Pt now intubated in ICU and unable to participate in CM assessment. Pt known to [facility] from past admissions: Message left for son/HCP to call CM to review d/c planning needs. CM to follow. HCP on file
--- NOTE | 2025-03-05 10:06 | PM.CCHP ---
History of Present Illness Date of Service: 03/05/25 Attending physician on admission: Lois Wilhelm Chief Complaint: Cardiac Arrest Patient is a 57 Y F with hypertension, hyperlipidemia, hypothyroidism, substance misuse on methadone, hepatitis C c/b cirrhosis, and COPD c/b chronic mixed respiratory failure on 4-6L NC baseline, presenting to ED on 03/05 s/p reported fall on 03/04; patient found to be somnolent, given narcan w/o significant improvement; patient subsequently suffered PEA arrest w/ ROSC after 2 minutes; ED trauma work-up grossly unremarkable; CTA C, CT A/P demonstrating segmental PEs and ileus Review of Systems Review of Systems: Yes unobtainable due to endotracheal tube and Unobtainable due to mental condition FOR[facility] Past Medical History Medical History (Updated 03/05/25 @ 11:12 by Lois Wilhelm MD) Acute and chronic respiratory failure CO2 retention Diabetes type 2 COPD (chronic obstructive pulmonary disease) Alcoholic cirrhosis Chronic respiratory failure Opioid use disorder, moderate, in sustained remission Opiate abuse, continuous Diabetes Nausea and vomiting COVID Community acquired pneumonia Colon cancer screening COPD (chronic obstructive pulmonary disease) Methadone dependence Hepatitis C Pulmonary edema Polysubstance abuse Hypertension Hypotension Respiratory failure Acute respiratory failure, unspecified whether with hypoxia or hypercapnia Hyperlipidemia Psychosis Hypoxia Acute exacerbation of chronic obstructive airways disease HTN (hypertension) Hypothyroid Family History Family History Father HTN (hypertension) Mother Gastritis Ovarian cancer Arthritis Son Thyroid disease Other Hypothyroid Social History Social History Household Members: Other Household Members Other:: 1 Housing: Apartment Do you presently have visiting nurse or other home services: Yes ([facility]) Alcohol intake: current Alcohol intake frequency: does not drink Comment: refuses bed alarm at times Patient Tobacco Use Status: Current everyday Tobacco user Tobacco use type: Cigarette Cigarette Packs Per Day: 1 Cigarettes Per Day: 10 Years Smoked: 30 e-Cigarette/Vaping Use: Never Used Second Hand Smoke Exposure: No Substance Use Type: Heroin Advance Directives: Yes Advance Directives on File: Yes Advance Directives Date on File: 08/18/23 Do you have a plan to hurt others: No Plan service: No Current occupational status: unemployed Meds Allergies Allergy/AdvReac Type Severity Reaction Status Date / Time Penicillins (PENICILLINS) Allergy Unknown RED ITCHY Verified 03/05/25 06:00 RASH SEAFOOD Allergy Unknown FEVER Uncoded 01/27/25 22:02 SWELLING Active Medications: Current Medications Albuterol/Ipratropium (Albuterol/Iprat 2.5/0.5mg 3 Ml Ampul.Neb) 3 ml INHALE RQ4H PRN PRN Reason: Wheezing Enoxaparin Sodium (Enoxaparin Sodium 40 Mg/0.4 Ml Syringe) 40 mg SUBCUT Q24H [facility]RA Propofol (Diprivan) 1,000 mg in 100 mls @ 0 mls/hr IVCONT .Q0M [facility]RA; Protocol Last Titration: 03/05/25 08:25 Dose: 50 mcg/kg/min, 25.71 mls/hr Sodium Chloride (Ns) 1,000 mls @ 250 mls/hr IV .Q4H STA Stop: 03/05/25 11:32 Norepinephrine Bitartrate (Levophed) 8 mg in 250 mls @ 0 mls/hr IVCONT .Q0M [facility]; Protocol Last Titration: 03/05/25 08:58 Dose: 0.07 mcg/kg/min, 11.25 mls/hr Cefepime HCl (Maxipime) 2 gm in 50 mls @ 100 mls/hr IV Q8H MAYRA Vancomycin HCl (Vancomycin/Ns) 2,000 mg in 500 mls @ 250 mls/hr IV ONCE ONE Stop: 03/05/25 11:59 Levothyroxine Sodium (Levothyroxine Sodium 100 Mcg/5 Ml Vial) 100 mcg IVPUSH DAILY@0600 [facility] Pantoprazole Sodium (Pantoprazole Sodium 40 Mg/10 Ml Vial) 40 mg IVPUSH DAILY@0630 [facility] Pharmacy Consult (Consult Rx Vancomycin Dosing) 1 each MISCELLANE DAILY PRN PRN Reason: Consult order Home Medications ?Medication ?Instructions ?Recorded ?Confirmed ?Last Taken ?Type perphenazine 4 mg tablet 4 mg PO BEDTIME 09/24/21 01/28/25 01/27/25 History levothyroxine 200 mcg tablet 200 mcg PO DAILY@0600 10/01/22 01/28/25 01/27/25 History umeclidinium 62.5 mcg/actuation 1 inh inhalation DAILY 10/01/22 01/28/25 01/27/25 History blister powder for inhalation (Incruse Ellipta) ipratropium 0.5 mg-albuterol 3 mg 3 ml inhalation QID PRN wheezing 04/20/23 01/28/25 01/27/25 History (2.5 mg base)/3 mL nebulization soln sertraline 100 mg tablet 100 mg PO DAILY@1200 04/20/23 01/28/25 01/27/25 History furosemide 20 mg tablet 20 mg PO BID 08/16/23 01/28/25 01/27/25 History albuterol sulfate 90 mcg/actuation 2 puff inhalation Q6H PRN wheezing 10/06/23 01/28/25 01/27/25 History aerosol inhaler (Ventolin HFA) acetaminophen 500 mg tablet 1,000 mg PO Q8H PRN moderate pain 12/08/23 01/28/25 01/27/25 History methadone 10 mg/mL oral concentrate 56 mg PO DAILY 01/06/24 01/29/25 09/09/24 History metformin 500 mg tablet,extended 500 mg PO BID 04/02/24 01/28/25 01/27/25 History release 24 hr rosuvastatin 20 mg tablet 20 mg PO DAILY 04/02/24 01/28/25 01/27/25 History cetirizine 10 mg tablet 5 mg PO DAILY 09/10/24 01/28/25 01/27/25 History hydroxyzine pamoate 25 mg capsule 25 mg PO BEDTIME insomnia 09/10/24 01/28/25 01/27/25 History celecoxib 100 mg capsule 100 mg PO BID mild pain 01/28/25 01/28/25 01/27/25 History lidocaine 5 % topical patch 1 patch topical DAILY Pain 01/28/25 01/28/25 01/27/25 History sertraline 25 mg tablet 25 mg PO DAILY 01/28/25 01/28/25 01/27/25 History amlodipine 5 mg tablet 5 mg PO DAILY 03/05/25 Unknown History fluticasone propionate 50 2 spray intranasal DAILY 03/05/25 Unknown History mcg/actuation nasal spray,suspension levothyroxine 25 mcg tablet 25 mcg PO DAILY@0600 03/05/25 Unknown History pantoprazole 40 mg tablet,delayed 40 mg PO DAILY@1200 03/05/25 Unknown History release simethicone 180 mg capsule (Gas 180 mg PO BID 03/05/25 Unknown History Relief (simethicone)) Physical Exam Vital Signs: Vital Signs: Last Vital Signs Temp 99.5 F 03/05/25 05:49 Pulse 90 03/05/25 09:50 Resp 20 03/05/25 09:50 BP 130/88 03/05/25 09:50 Pulse Ox 100 03/05/25 09:50 O2 Del Method Mechanical Ventil ation 03/05/25 09:50 O2 Flow Rate 4 03/05/25 05:49 FiO2 50 03/05/25 09:50 Oxygen Flow Rate 6 03/05/25 05:49 BMI result Body Mass Index 32.6 Const: Other: intubated, sedated; appreciable spontaneous movements General: no acute distress and well developed HEENT: Other: appreciable oswaldo-orbital ecchymoses Eyes: General: appearance normal, both eyes and all related structures Neck: Neck: Yes normal visual inspection, Yes full ROM, Yes no meningeal signs, Yes trachea midline and Yes supple Chest: Chest palpation & inspection: normal inspection of the chest Resp: Other: diminished breath sounds throughout; no appreciable overt rales, rhonchi, wheezing Effort & Inspection: normal respiratory effort Cardio: Rate: regular rate Rhythm: regular rhythm GI: Inspection: No Abdominal wall edema and Yes distended Palpation (GI): Soft to palpation, not firm, nontender, no guarding and not rigid Skin: General skin exam: no rashes or lesions noted Neuro: General: tone normal, moves all extremities and no meningeal signs Extrem: General: Yes normal to inspection, Yes full ROM, Yes capillary refill normal and Yes no clubbing, cyanosis or edema Psych: Other: unable to assess Results Labs 03/05/25 05:45 03/05/25 06:22 Labs: Laboratory Results - last 24 hr 03/05/25 03/05/25 03/05/25 05:45 06:02 06:22 MCV 95.5 MCH 27.6 MCHC 28.9 L RDW 14.8 Plt Count 164 MPV 10.8 Immature Gran % (Auto) 0.8 H Neut % (Auto) 53.3 Lymph % (Auto) 39.9 [place] % (Auto) 3.7 Eos % (Auto) 1.7 Baso % (Auto) 0.6 Lymph # (Auto) 4.8 [place] # (Auto) 0.5 Eos # (Auto) 0.2 Baso # (Auto) 0.1 Abs Immat Gran (auto) 0.10 H Absolute Neuts (auto) 6.4 Absolute Nucleated RBC 0.020 H Nucleated RBC % (auto) 0.2 PT 11.2 INR 0.9 APTT 30.5 O2 Saturation ABG pH at Pt Temp ABG pCO2 at Pt Temp ABG pO2 at Pt Temp ABG HCO3 ABG Base Excess (Actual) Anion Gap 12 Estim Creat Clear Calc 102.4 Estimated GFR > 60 Random Glucose 137 H Lactic Acid 5.4 H* Calcium 9.4 D Magnesium 2.3 Total Bilirubin 0.4 AST 19 ALT 14 Alkaline Phosphatase 93 Ammonia 89 H Total Creatine Kinase 75 Troponin I High Sens < 2.7 Total Protein 7.6 Albumin 4.3 Lipase 36 TSH 16.18 H Free T4 0.66 L Urine Color Urine Appearance Urine pH Ur Specific [place] Urine Protein Urine Glucose (UA) Urine Ketones Urine Blood Urine Nitrite Ur Leukocyte Esterase Urine RBC Urine WBC Ur Squamous Epith Cells Urine Bacteria Hyaline Casts Urine Opiates Screen Ur Buprenorphine Scrn Ur Oxycodone Screen Urine Methadone Screen Urine Fentanyl Screen Ur Barbiturates Screen Ur Phencyclidine Scrn Ur Amphetamines Screen U Benzodiazepines Scrn Urine Cocaine Screen U Marijuana (THC) Screen Ethyl Alcohol < 10 03/05/25 03/05/25 07:49 08:01 MCV MCH MCHC RDW Plt Count MPV Immature Gran % (Auto) Neut % (Auto) Lymph % (Auto) [place] % (Auto) Eos % (Auto) Baso % (Auto) Lymph # (Auto) [place] # (Auto) Eos # (Auto) Baso # (Auto) Abs Immat Gran (auto) Absolute Neuts (auto) Absolute Nucleated RBC Nucleated RBC % (auto) PT INR APTT O2 Saturation 99.0 ABG pH at Pt Temp 7.33 L ABG pCO2 at Pt Temp 76 H* ABG pO2 at Pt Temp 321 H ABG HCO3 41 H ABG Base Excess (Actual) 10.9 Anion Gap Estim Creat Clear Calc Estimated GFR Random Glucose Lactic Acid Calcium Magnesium Total Bilirubin AST ALT Alkaline Phosphatase Ammonia Total Creatine Kinase Troponin I High Sens Total Protein Albumin Lipase TSH Free T4 Urine Color Yellow Urine Appearance Clear Urine pH 6.5 Ur Specific [place] 1.015 Urine Protein 300 (3+) H Urine Glucose (UA) 500 H Urine Ketones Negative Urine Blood Moderate (2+) H Urine Nitrite Negative Ur Leukocyte Esterase Negative Urine RBC 11-20 H Urine WBC 0-5 Ur Squamous Epith Cells 0-2 Urine Bacteria None Seen Hyaline Casts 0-2 Urine Opiates Screen Not Detected Ur Buprenorphine Scrn Not Detected Ur Oxycodone Screen Not Detected Urine Methadone Screen Positive H Urine Fentanyl Screen Not Detected Ur Barbiturates Screen Not Detected Ur Phencyclidine Scrn Not Detected Ur Amphetamines Screen Not Detected U Benzodiazepines Scrn Not Detected Urine Cocaine Screen Not Detected U Marijuana (THC) Screen Not Detected Ethyl Alcohol Imaging Radiologist's Impressions: Impressions Chest X-Ray 03/05/25 06:59 IMPRESSION: Endotracheal tube ends 5 cm above jeffry. Status post NG tube placement in the stomach region. Chronic interstitial lung disease with superimposed mild interstitial lung edema versus less likely acute inflammatory small airway disease. Electronically signed by: Jerman Flores MD 03/05/2025 07:13 AM EST RP Cervical Spine CT 03/05/25 07:18 IMPRESSION: Multilevel cervical spondylosis pronounced at C5-6 and C6-7 without acute fracture or trauma-related listhesis. Acute on chronic left saphenous sinus disease. Centrilobular and paraseptal emphysematous changes. Fleischner guidelines were followed. Electronically signed by: Jerman Flores MD 03/05/2025 08:09 AM EST RP Face CT 03/05/25 07:18 IMPRESSION: Acute comminuted displaced nasal bone fractures. Fracture anterior nasal spine spine maxilla. Acute on chronic paranasal sinus disease.. Electronically signed by: Jerman Flores MD 03/05/2025 08:16 AM EST RP Head CT 03/05/25 07:18 IMPRESSION: No visible fractures. Soft tissue contusion, forehead. No acute fracture, bony calvarium. No acute intracranial hemorrhage. Electronically signed by: Jerman Flores MD 03/05/2025 08:03 AM EST RP Abdomen X-Ray 03/05/25 08:30 IMPRESSION: Nasogastric tube tip coiled over the proximal stomach. Air-filled distended loops of small and large bowel. Electronically signed by: Annelise Medeiros MD 03/05/2025 08:56 AM EST RP Chest X-Ray 03/05/25 08:37 IMPRESSION: Endotracheal tube tip 4.8 cm above the jeffry. Bibasilar atelectasis or small infiltrates which appear improved from earlier exam. Electronically signed by: Annelise Medeiros MD 03/05/2025 08:54 AM EST RP Assessment and Plan (1) Cardiac arrest: Status: Acute (2) Acute and chronic respiratory failure: Status: Acute Plan Patient is a 57 Y F with hypertension, hyperlipidemia, hypothyroidism, substance misuse on methadone, hepatitis C c/b cirrhosis, and COPD c/b chronic mixed respiratory failure on 4-6L NC baseline, presenting to ED on 03/05 s/p reported fall on 03/04; patient found to be somnolent, given narcan w/o significant improvement; patient subsequently suffered PEA arrest w/ ROSC after 2 minutes; ED trauma work-up grossly unremarkable; CTA C, CT A/P demonstrating MENDY segmental PEs and ileus N: intubated, sedated w/ propofol, fentanyl gtts, wean as tolerated CV: s/p PEA arrest, unclear etiology, some hypotension, norepinephrine gtt, wean as tolerated R: acute on chronic hypercapneic respiratory failure, intubated, wean as tolerated; of note, MENDY segmental PEs though w/o savita hypotension GI: NPO : no acute issues; to monitor renal indices/electrolytes H: segmental PEs, treatment-dose enoxaparin ID: empiric vanc/cefepime, follow-up BCx 03/05 E: hypothyroidism, not well-managed, home levothyroxine P: no acute issues S: daily updates given to son
--- NOTE | 2025-03-05 10:15 | CA_ITS ---
Transthoracic Echocardiogram Patient (Last, First, Middle): Joseph Mazariegos Arnol Flores Gender: Female Date of : 1965 Age: 59 Procedure Date: 03/05/2025 Procedure Type: Transthoracic Echocardiogram Location: ICU Height: 167.64 cm Weight: 91.17 kg BSA: 2.00 m2 Heart Rate: 87 bpm BP: 162 / 80 mmHg Clerk Cashier: VAMSHI Referring MD: Lois Wilhelm MD Senior Backup Administrator: Rick Viramontes MD Symptoms: Please Assess RH Function, Known PE, S/P PEA arrest Study Quality: Technically Difficult w/Contrats ECG Rhythm: Sinus Conclusions: - 1. Normal LV ejection fraction of 65-70% with impaired relaxation filling pattern 2. Moderately dilated right ventricle with severely reduced RV systolic function by TAPSE 3. Cardiac valvular Dopplers within normal limits 4. Right ventricular systolic pressure not calculated on this study 5. No gross pericardial effusion Findings Procedure Information Contrast agent, definity, is being given per protocol without apparent complications. Left Ventricle Normal left ventricular size, thickness, and systolic function. The visually estimated ejection fraction is between 65-70%. There is a flattened septum in systole consistent with right ventricular pressure overload. Spectral Doppler is indicative of an impaired relaxation filling pattern. Right Ventricle Moderately increased right ventricular cavity size. There is severely decreased right ventricular systolic function. Atria The left atrium was not well visualized. There is no evidence of interatrial shunt. The right atrium was not well visualized. Aortic Valve The aortic valve structure and function is likely normal. There is no aortic valve stenosis. There is no aortic valve regurgitation. Mitral Valve Likely normal mitral valve structure and function. There is trace mitral valve regurgitation. There is no mitral valve stenosis. Pulmonic Valve The pulmonic valve was not well visualized. Tricuspid Valve The right ventricular systolic pressure is not calculated. Indeterminate right atrial pressure. Great Vessels The aorta was not well visualized. The pulmonary artery was not well visualized. Venous The inferior vena cava is moderately dilated and does not collapse with inspiration. Patient on positive pressure ventilation and therefore accurate determination of right atrial pressures are difficult on this study Pericardium/Pleural There is no evidence of pericardial effusion. Measurements 2D Linear Measurements IVSd: 0.98 0.6-0.9/0.6-1.0 cm LVIDd: 4.56 3.9-5.3/4.2-5.9 cm LVIDd Index: 2.28 2.4-3.2/2.2-3.1 cm/m2 LVIDs: 2.66 2.0-3.6 cm LVPWd: 1.07 0.7-1.1 cm LA Diam: 2.80 2.7-3.8/3.0-4.0 cm LAIDs Index: 1.40 1.5-2.3 cm/m2 LV Mass: 201.88 67-162/88-224 g LV Mass Index: 100.94 43-95/49-115 g/m2 LVOT Diam: 2.00 3.0+(-)1.3 cm 2D Systolic Function EF 4C: 65.20 >55% EF 2C: 67.70 >55% EF BiP: 67.60 >55% Mitral Valve MV Pk E: 0.48 MV PK A: 0.51 MV Decel Time: 200.00 E/A: 0.90 E'Lateral: 7.46 E'Medial: 5.92 E/E' Med: 8.20 E/E' Lat: 6.50 PHT: 59.00 MVA PHT: 3.73 Decel Owen: 2.42 Aortic Valve AoV Pk Niles: 0.90 AoV Mn Niles: 0.65 AoV VTI: 0.15 AoV Pk Grad: 3.00 Aov Mn Grad: 2.00 ALBAN Cont.VTI: 2.87 LVOT LVOT Pk Niles: 0.89 LVOT Mn Niles: 0.58 LVOT VTI: 0.14 LVOT Pk Grad: 3.00 LVOT Mn Grad: 2.00 LVOT Diam: 2.00 LVOT Area: 3.14 Diastolic Function MV Pk E: 0.48 MV Pk A: 0.51 E/A: 0.90 E'Medial: 5.92 E/E' Med: 8.20 E' Laterial: 7.46 E/E' Lat: 6.50 Right Ventricle TAPSE (mm): 9.77 TVS' Niles: 4.87 Tricuspid Valve TR Pk Niles: 1.63 TR Pk Grad: 11.00 Great Vessels Aorta Sinus of Valsalva: 3.30 2.0-3.5 cm Ao Asc: 2.90 2.1-3.4 cm Pulmonary Valve PV Pk Niles: 0.78 Peak PV Grad: 2.00 Updated in Other Vendor System with Status of Final Rick Viramontes MD electronically signed on 03/05/2025 4:06:51 PM with status of Final
[2025-03-05 10:34] LABS: MANUAL DIFF FLAG NO
[2025-03-05] MEDS: cefEPime HCl/D5W 2 GM/50 ML PIGGYBACK IV ×2 (10:37→17:41)
[2025-03-05 10:38] LABS: Hematocrit 49.9 % (37.0-47.0); Hemoglobin 14.6 g/dl (12.0-16.0); Imm Gran Abs Auto 0.08 X10*3/uL (0.00-0.03); Imm Gran Pct Auto 0.5 % (0.0-0.4); Lymphocytes Absolute Auto 1.2 X10*3/uL (1.2-4.9); Mean Corpuscular HGB Conc 29.3 g/dl (31.0-35.0); Mean Corpuscular Hemoglobin 27.2 pg (27.0-33.0); Mean Corpuscular Volume 93.1 fL (80.0-98.0); NRBC Abs Auto 0.000 X10*3/uL (0.0-0.012); NRBC Pct Auto 0.0 /100WBC (0.0-0.2); Platelet Count 153 X10*3/uL (160-400); Red Blood Count 5.36 X10*6/uL (4.20-5.50); White Blood Count 14.7 X10*3/uL (4.8-10.8)
[2025-03-05 10:39] LABS: Venous Blood Gas Refer to POC result
[2025-03-05 10:40] LABS: VBG HCO3 46 mmol/L (22-26); VBG O2 % Saturation 84.0 %
[2025-03-05] MEDS: fentaNYL citrate/NS 1,000 MCG/100 ML PLAST..BAG 10 MCG IVCONT (10:45)
[2025-03-05 10:51] LABS: ~Lactic Acid-LAB USE ONLY 1.5 mmol/L (0.5-2.0)
[2025-03-05 10:55] LABS: Anion Gap 10 (12-20); Blood Urea Nitrogen 9 mg/dL (9-16); Calcium 9.2 mg/dL (8.4-10.2); Carbon Dioxide 42 mmol/L (22-29); Chloride 91 mmol/L (96-108); Creatinine Clr Calc Pharmacy 87.4; Estimated Glomerular Filt Rate > 60; Magnesium 2.2 mg/dL (1.6-2.6); Potassium 4.2 mmol/L (3.3-5.1); Sodium 139 mmol/L (135-145)
[2025-03-05 10:56] LABS: Acetaminophen LAB < 3 mcg/mL (<30); Salicylate < 5.0 mg/dL (15-30)
--- NOTE | 2025-03-05 11:14 | W.PM.CCHP ---
Procedures Date of Service Date of Service: 03/05/25 Central Line Placement Right IJ: Time out performed: Yes Sterile Technique Used: Yes Patient placed on monitor/pulse ox: Yes MD prep: mask, gown and gloves Ultrasound used for placement: Yes Central line lumen inserted: triple Post procedure: sutured in place, good blood return, all ports aspirated, flushed, capped and sterile dressing applied Post procedure x-ray: other (awaiting chest x-ray) Patient tolerated procedure: well and no complications
--- NOTE | 2025-03-05 12:13 | PC.NURSE ---
Due to difficulty obtaining quality IV access, central line placed by provider. Confimed with CXR. Bolus sepsis fluids infused per MAY.
[2025-03-05] MEDS: Potassium Phosphate/NS 15 MMOL/250 ML PLAST..BAG 62.5 MMOL IV (12:46)
[2025-03-05] MEDS: vancomycin/NS 2,000 MG/500 ML PLAST..BAG 250 MG IV (12:52)
--- NOTE | 2025-03-05 13:37 | PHA.MEDREC ---
Addendum entered by Bekah Nunes RPh 03/06/25 12:35: Called [facility] 4 times at 1008, 1045, 1214, 1227. Left 3 voicemails, have no heard back. Addendum entered by Bekah Nunes RPh 03/05/25 14:11: Reviewed by [facility]. Son could not provide any information. Utilized claims and discharge packet from 01/31/25. Will update med list once we get in contact with [facility] ([phone]). Original Note: Pharmacy Consult ? Medication Reconciliation Pharmacy has completed the medication reconciliation. Unable to speak with pt due to intubation. Spoke with pt son over the phone about pt meds and he was unable to help confirm any medications but stated pt has a nurse from [facility] to come help her everyday; called [facility] and left a voicemail to call back with pt nurse or have nurse call us at our pharmacy #. Utilized claims and recent Dc packet from 01/31; claims match DC PK but for Levothyroxine 25mcg once daily (kept in med rec, LF 02/14 for 90 days), Fluticasone Propionate 2 sprays daily (kept on med rec, LF 02/12 for 90) and Simethicone 1 cap BID (Kept on med rec, LF 02/12 for 30 days). Will update med rec if we get an update from [facility]
[2025-03-05] MEDS: Lactulose 320 GM/480 ML SOLUTION 200 GM PR (13:50)
[2025-03-05 14:17] LABS: Resp Syncy Virus RNA Qual PCR NEGATIVE (Negative); SARS COV2 PCR INHOUSE NEGATIVE (Negative)
[2025-03-05] MEDS: fentaNYL citrate/NS 1,000 MCG/100 ML PLAST..BAG 20 MCG IVCONT ×2 (14:53→19:52)
[2025-03-05 16:39] LABS: Glucose, Whole Blood 105 mg/dL (60-115)
--- NOTE | 2025-03-05 19:19 | PC.NURSE ---
Today in ICU, provider obtained central line to right IJ. Also, ultrasound IV access also obtained. Echo with definity performed. Meds given per MAR, and sedation adjusted for vent synchrony. Restraints in place, see paper charting. Blood pressure oscillating with patient level of consciousness related to activity. See MAR for titrations to pressor. Additionally, Fentanyl for sedation added when patient was not at RASS goal and restless in bed.
[2025-03-05] MEDS: Chlorhexidine Gluc Oral Rinse 15 ML MOUTHWASH BUCCAL (22:11)
[2025-03-05 23:50] LABS: Glucose, Whole Blood 121 mg/dL (60-115)
[2025-03-06] VITALS (41 sets, daily range): BP systolic 91–154; BP diastolic 52–118; PULSE 81–101; RESP 15–26; TEMP 34.8–37.7; O2SAT 87–93; BMI 29.6
[2025-03-06] MEDS: Albuterol/Iprat 2.5/0.5MG 3 ML AMPUL.NEB INHALE ×2 (00:41→20:12)
[2025-03-06] MEDS: fentaNYL citrate/NS 1,000 MCG/100 ML PLAST..BAG 20 MCG IVCONT (01:07)
[2025-03-06] MEDS: cefEPime HCl/D5W 2 GM/50 ML PIGGYBACK IV ×3 (01:32→17:15)
[2025-03-06 04:16] LABS: VBG HCO3 39 mmol/L (22-26); VBG O2 % Saturation 69.0 %
[2025-03-06 04:33] LABS: MANUAL DIFF FLAG NO
[2025-03-06 04:35] LABS: Hematocrit 38.6 % (37.0-47.0); Hemoglobin 11.9 g/dl (12.0-16.0); Imm Gran Abs Auto 0.06 X10*3/uL (0.00-0.03); Imm Gran Pct Auto 0.6 % (0.0-0.4); Lymphocytes Absolute Auto 2.3 X10*3/uL (1.2-4.9); Mean Corpuscular HGB Conc 30.8 g/dl (31.0-35.0); Mean Corpuscular Hemoglobin 28.1 pg (27.0-33.0); Mean Corpuscular Volume 91.0 fL (80.0-98.0); NRBC Abs Auto 0.000 X10*3/uL (0.0-0.012); NRBC Pct Auto 0.0 /100WBC (0.0-0.2); Platelet Count 131 X10*3/uL (160-400); Red Blood Count 4.24 X10*6/uL (4.20-5.50); White Blood Count 10.2 X10*3/uL (4.8-10.8)
[2025-03-06 04:42] LABS: Albumin Level 3.3 g/dL (3.5-5.0)
[2025-03-06 04:49] LABS: Anion Gap 11 (12-20); Blood Urea Nitrogen 10 mg/dL (9-16); Calcium 8.2 mg/dL (8.4-10.2); Carbon Dioxide 34 mmol/L (22-29); Chloride 102 mmol/L (96-108); Creatinine Clr Calc Pharmacy 85.3; Estimated Glomerular Filt Rate > 60; Magnesium 1.7 mg/dL (1.6-2.6); Potassium 3.5 mmol/L (3.3-5.1); Sodium 143 mmol/L (135-145)
[2025-03-06 05:06] LABS: Venous Blood Gas Refer to POC result
[2025-03-06] MEDS: Potassium Phosphate/NS 15 MMOL/250 ML PLAST..BAG 62.5 MMOL IV ×2 (06:21→10:11)
[2025-03-06] MEDS: fentaNYL citrate/NS 1,000 MCG/100 ML PLAST..BAG 15 MCG IVCONT (06:34)
--- NOTE | 2025-03-06 06:40 | PC.NURSE ---
Patient remains intubated and sedated, continues to require high dose of Propofol and Fentanyl gtt d/t agitation and vent asynchrony. Patient is arousable, mostly to verbal stimuli but does not follow commands and lacks understanding of her conditions and surroundings. Patient remains on small dose of vasopressor to maintain goal MAP >65. Hygiene care and repositioning as tolerated. Albuterol treatment and regular suctioning to optimize breathing.
[2025-03-06] MEDS: Chlorhexidine Gluc Oral Rinse 15 ML MOUTHWASH BUCCAL ×3 (07:53→20:30)
--- NOTE | 2025-03-06 08:31 | PM.CCPN ---
Subjective Subjective Date of Service: 03/06/25 Interval History: no significant overnight events Critical Care Time (minutes): 60 Physical Exam Vital Signs: Vital Signs: Last Vital Signs Temp 98.9 F 03/06/25 08:00 Pulse 93 03/06/25 08:00 Resp 26 H 03/06/25 08:00 BP 110/66 03/06/25 08:00 Pulse Ox 91 L 03/06/25 08:00 O2 Del Method Mechanical Ventil ation 03/06/25 08:00 O2 Flow Rate 4 03/05/25 05:49 FiO2 50 03/06/25 08:00 Oxygen Flow Rate 6 03/05/25 05:49 BMI result Body Mass Index 29.6 Const: Other: intubated, sedated, no acute distress; appreciable spotaneous movements General: no acute distress and well developed HEENT: Head: Yes normal to inspection, Yes normocephalic and Yes atraumatic Eyes: General: appearance normal, both eyes and all related structures Neck: Neck: Yes normal visual inspection, Yes full ROM, Yes trachea midline and Yes supple Chest: Chest palpation & inspection: normal inspection of the chest Resp: Other: diminished breath sounds throughout; some appreciable wheezing and rhonchi; no appreciable overt rales Effort & Inspection: normal respiratory effort Cardio: Rate: regular rate Rhythm: regular rhythm GI: Inspection: Yes normal to inspection, No Abdominal wall edema and No distended Palpation (GI): Soft to palpation, not firm, nontender, no guarding and not rigid Skin: General skin exam: no rashes or lesions noted Neuro: General: tone normal and moves all extremities Extrem: Other: appreciable 1+ pitting edema to bilateral shins General: Yes normal to inspection, Yes full ROM and Yes capillary refill normal Psych: Other: unable to assess Objective Data Labs 03/06/25 04:03 03/06/25 04:03 Labs: Laboratory Results - last 24 hr 03/05/25 03/05/25 03/05/25 06:22 10:22 10:22 WBC 14.7 H Cancelled RBC 5.36 Hgb Hct MCV MCH MCHC RDW Plt Count MPV Immature Gran % (Auto) Neut % (Auto) Lymph % (Auto) [place] % (Auto) Eos % (Auto) Baso % (Auto) Lymph # (Auto) [place] # (Auto) Eos # (Auto) Baso # (Auto) Abs Immat Gran (auto) Absolute Neuts (auto) Absolute Nucleated RBC Nucleated RBC % (auto) VBG pH VBG pCO2 VBG pO2 VBG HCO3 VBG O2 Saturation VBG Base Excess Sodium Potassium Chloride Carbon Dioxide Anion Gap BUN Creatinine Estim Creat Clear Calc Estimated GFR POC Glucose Random Glucose Lactic Acid F/U @ 2Hr Calcium Phosphorus Magnesium Albumin Free T4 0.66 L Salicylates Acetaminophen Ethyl Alcohol Influenza Type A (PCR) Influenza Type B (PCR) RSV RNA Qual (PCR) SARS-CoV-2 RNA (RT-PCR) 03/05/25 03/05/25 03/05/25 10:22 10:22 10:22 WBC RBC Cancelled Hgb 14.6 Cancelled Hct 49.9 H Cancelled MCV 93.1 MCH MCHC RDW Plt Count MPV Immature Gran % (Auto) Neut % (Auto) Lymph % (Auto) [place] % (Auto) Eos % (Auto) Baso % (Auto) Lymph # (Auto) [place] # (Auto) Eos # (Auto) Baso # (Auto) Abs Immat Gran (auto) Absolute Neuts (auto) Absolute Nucleated RBC Nucleated RBC % (auto) VBG pH VBG pCO2 VBG pO2 VBG HCO3 VBG O2 Saturation VBG Base Excess Sodium Potassium Chloride Carbon Dioxide Anion Gap BUN Creatinine Estim Creat Clear Calc Estimated GFR POC Glucose Random Glucose Lactic Acid F/U @ 2Hr Calcium Phosphorus Magnesium Albumin Free T4 Salicylates Acetaminophen Ethyl Alcohol Influenza Type A (PCR) Influenza Type B (PCR) RSV RNA Qual (PCR) SARS-CoV-2 RNA (RT-PCR) 03/05/25 03/05/25 03/05/25 10:22 10:22 10:22 WBC RBC Hgb Hct MCV Cancelled MCH 27.2 Cancelled MCHC 29.3 L Cancelled RDW 14.7 Plt Count MPV Immature Gran % (Auto) Neut % (Auto) Lymph % (Auto) [place] % (Auto) Eos % (Auto) Baso % (Auto) Lymph # (Auto) [place] # (Auto) Eos # (Auto) Baso # (Auto) Abs Immat Gran (auto) Absolute Neuts (auto) Absolute Nucleated RBC Nucleated RBC % (auto) VBG pH VBG pCO2 VBG pO2 VBG HCO3 VBG O2 Saturation VBG Base Excess Sodium Potassium Chloride Carbon Dioxide Anion Gap BUN Creatinine Estim Creat Clear Calc Estimated GFR POC Glucose Random Glucose Lactic Acid F/U @ 2Hr Calcium Phosphorus Magnesium Albumin Free T4 Salicylates Acetaminophen Ethyl Alcohol Influenza Type A (PCR) Influenza Type B (PCR) RSV RNA Qual (PCR) SARS-CoV-2 RNA (RT-PCR) 03/05/25 03/05/25 03/05/25 10:22 10:22 10:22 WBC RBC Hgb Hct MCV MCH MCHC RDW Cancelled Plt Count 153 L Cancelled MPV 10.9 Cancelled Immature Gran % (Auto) 0.5 H Neut % (Auto) 85.3 H Lymph % (Auto) 8.2 L [place] % (Auto) 5.5 Eos % (Auto) 0.2 Baso % (Auto) 0.3 Lymph # (Auto) 1.2 [place] # (Auto) 0.8 Eos # (Auto) 0.0 Baso # (Auto) 0.1 Abs Immat Gran (auto) 0.08 H Absolute Neuts (auto) 12.5 H Absolute Nucleated RBC 0.000 Nucleated RBC % (auto) VBG pH VBG pCO2 VBG pO2 VBG HCO3 VBG O2 Saturation VBG Base Excess Sodium Potassium Chloride Carbon Dioxide Anion Gap BUN Creatinine Estim Creat Clear Calc Estimated GFR POC Glucose Random Glucose Lactic Acid F/U @ 2Hr Calcium Phosphorus Magnesium Albumin Free T4 Salicylates Acetaminophen Ethyl Alcohol Influenza Type A (PCR) Influenza Type B (PCR) RSV RNA Qual (PCR) SARS-CoV-2 RNA (RT-PCR) 03/05/25 03/05/25 03/05/25 10:22 10:22 10:22 WBC RBC Hgb Hct MCV MCH MCHC RDW Plt Count MPV Immature Gran % (Auto) Neut % (Auto) Lymph % (Auto) [place] % (Auto) Eos % (Auto) Baso % (Auto) Lymph # (Auto) [place] # (Auto) Eos # (Auto) Baso # (Auto) Abs Immat Gran (auto) Absolute Neuts (auto) Absolute Nucleated RBC Cancelled Nucleated RBC % (auto) 0.0 Cancelled VBG pH VBG pCO2 VBG pO2 VBG HCO3 VBG O2 Saturation VBG Base Excess Sodium 139 Potassium 4.2 Chloride 91 L Carbon Dioxide 42 H* Anion Gap 10 L BUN 9 Cancelled Creatinine 0.80 Estim Creat Clear Calc Estimated GFR POC Glucose Random Glucose Lactic Acid F/U @ 2Hr Calcium Phosphorus Magnesium Albumin Free T4 Salicylates Acetaminophen Ethyl Alcohol Influenza Type A (PCR) Influenza Type B (PCR) RSV RNA Qual (PCR) SARS-CoV-2 RNA (RT-PCR) 03/05/25 03/05/25 03/05/25 10:22 10:22 10:22 WBC RBC Hgb Hct MCV MCH MCHC RDW Plt Count MPV Immature Gran % (Auto) Neut % (Auto) Lymph % (Auto) [place] % (Auto) Eos % (Auto) Baso % (Auto) Lymph # (Auto) [place] # (Auto) Eos # (Auto) Baso # (Auto) Abs Immat Gran (auto) Absolute Neuts (auto) Absolute Nucleated RBC Nucleated RBC % (auto) VBG pH VBG pCO2 VBG pO2 VBG HCO3 VBG O2 Saturation VBG Base Excess Sodium Potassium Chloride Carbon Dioxide Anion Gap BUN Creatinine Cancelled Estim Creat Clear Calc 87.4 Cancelled Estimated GFR > 60 Cancelled POC Glucose Random Glucose 144 H Lactic Acid F/U @ 2Hr 1.5 Calcium 9.2 Phosphorus 2.1 L Magnesium 2.2 Albumin Free T4 Salicylates < 5.0 L Acetaminophen < 3 Ethyl Alcohol < 10 Influenza Type A (PCR) Influenza Type B (PCR) RSV RNA Qual (PCR) SARS-CoV-2 RNA (RT-PCR) 03/05/25 03/05/25 03/05/25 10:35 13:18 16:35 WBC RBC Hgb Hct MCV MCH MCHC RDW Plt Count MPV Immature Gran % (Auto) Neut % (Auto) Lymph % (Auto) [place] % (Auto) Eos % (Auto) Baso % (Auto) Lymph # (Auto) [place] # (Auto) Eos # (Auto) Baso # (Auto) Abs Immat Gran (auto) Absolute Neuts (auto) Absolute Nucleated RBC Nucleated RBC % (auto) VBG pH 7.36 VBG pCO2 81 VBG pO2 51 VBG HCO3 46 H VBG O2 Saturation 84.0 VBG Base Excess 16.0 Sodium Potassium Chloride Carbon Dioxide Anion Gap BUN Creatinine Estim Creat Clear Calc Estimated GFR POC Glucose 105 Random Glucose Lactic Acid F/U @ 2Hr Calcium Phosphorus Magnesium Albumin Free T4 Salicylates Acetaminophen Ethyl Alcohol Influenza Type A (PCR) NEGATIVE Influenza Type B (PCR) NEGATIVE RSV RNA Qual (PCR) NEGATIVE SARS-CoV-2 RNA (RT-PCR) NEGATIVE 03/05/25 03/06/25 03/06/25 23:45 04:03 04:11 WBC 10.2 RBC 4.24 D Hgb 11.9 L Hct 38.6 D MCV 91.0 MCH 28.1 MCHC 30.8 L RDW 14.9 Plt Count 131 L MPV 11.0 Immature Gran % (Auto) 0.6 H Neut % (Auto) 68.2 Lymph % (Auto) 22.3 [place] % (Auto) 6.9 Eos % (Auto) 1.5 Baso % (Auto) 0.5 Lymph # (Auto) 2.3 [place] # (Auto) 0.7 Eos # (Auto) 0.2 Baso # (Auto) 0.1 Abs Immat Gran (auto) 0.06 H Absolute Neuts (auto) 7.0 Absolute Nucleated RBC 0.000 Nucleated RBC % (auto) 0.0 VBG pH 7.51 H VBG pCO2 49 VBG pO2 44 VBG HCO3 39 H VBG O2 Saturation 69.0 VBG Base Excess 14.7 Sodium 143 Potassium 3.5 Chloride 102 Carbon Dioxide 34 H Anion Gap 11 L BUN 10 Creatinine 0.82 Estim Creat Clear Calc 85.3 Estimated GFR > 60 POC Glucose 121 H Random Glucose 118 H Lactic Acid F/U @ 2Hr Calcium 8.2 L D Phosphorus 2.4 L Magnesium 1.7 Albumin 3.3 L Free T4 Salicylates Acetaminophen Ethyl Alcohol Influenza Type A (PCR) Influenza Type B (PCR) RSV RNA Qual (PCR) SARS-CoV-2 RNA (RT-PCR) Progress Note: A&P Assessment and plan (1) Cardiac arrest: Status: Acute (2) Acute and chronic respiratory failure: Status: Acute Plan Patient is a 57 Y F with hypertension, hyperlipidemia, hypothyroidism, substance misuse on methadone, hepatitis C c/b cirrhosis, and COPD c/b chronic mixed respiratory failure on 4-6L NC baseline, presenting to ED on 03/05 s/p reported fall on 03/04; patient found to be somnolent, given narcan w/o significant improvement; patient subsequently suffered PEA arrest w/ ROSC after 2 minutes; ED trauma work-up grossly unremarkable; CTA C, CT A/P demonstrating MENDY segmental PEs and ileus N: intubated, sedated w/ propofol, fentanyl gtts, wean as tolerated CV: s/p PEA arrest, unclear etiology, some hypotension, norepinephrine gtt, wean as tolerated R: acute on chronic hypercapneic respiratory failure, intubated, wean as tolerated; of note, MENDY segmental PEs though w/o savita hypotension GI: NPO : no acute issues; to monitor renal indices/electrolytes H: segmental PEs, treatment-dose enoxaparin ID: empiric vanc/cefepime, follow-up BCx 03/05 E: hypothyroidism, not well-managed, home levothyroxine P: no acute issues S: daily updates given to son Quality Stroke Does the patient have a stroke diagnosis?: No VTE Prior VTE?: Yes VTE Risk Level:: Medical - moderate - high VTE Device Contraindication: N/A - Device Ordered VTE Drug Contraindication: N/A - Med Ordered
[2025-03-06] MEDS: Albumin Human 25 % 50 ML 100 ML IV (10:11)
[2025-03-06] MEDS: Calcium Gluconate/NaCl,Iso-Osm 1 GM/50 ML PLAST..BAG IV (10:12)
[2025-03-06] MEDS: Furosemide 20 MG/2 ML VIAL 10 MG IVPUSH (10:12)
--- NOTE | 2025-03-06 11:31 | HE.PHANOTE ---
ANDRE Keeping dosing the same, and getting another trough tomorrow 03/07 to make sure pt stays in range. Predicted trough 16.5, AUC 513.
[2025-03-06 11:40] LABS: Glucose, Whole Blood 143 mg/dL (60-115)
--- NOTE | 2025-03-06 12:20 | MHC.CM.PN ---
Patient remains intubated in ICU. Attempted to contact niece/HCP Karen to complete CM assessment. No awswer and no VM box. Son, Pablo, at bedside and able to answer questions. Patient lives in an apt w/ S.O. 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 Home O2. Lock box/methadone through [facility]. PCP @ [facility] CM will follow for dc planning. Will likely require PT eval once extubated/able to transfer to medical floor. Son requesting resources for housing, as patient lives in 3rd floor apt and he feels she needs a 1st floor. Resource guide provided.
--- NOTE | 2025-03-06 12:26 | MHC.CLN ---
NUTRITION DIET RX: NPO PATIENT IS INTUBATED AND SEDATED ILEUS PRESENT. NO TUBE FEEDING AT THIS TIME SEDATION PROVIDING 679 KCALS FOLLOW FOR GI STATUS AND POSSIBLE ALTERNATE NUTRITION SEE CLINICAL NUTRITION ASSESSMENT
[2025-03-06 18:29] LABS: Glucose, Whole Blood 113 mg/dL (60-115)
--- NOTE | 2025-03-06 18:34 | PC.NURSE ---
Assumed care of patient 0700. Patient started on spontaneous awakening trial approx 09:30AM. Approx 10AM, respiratory therapy to bedside for PSV trial. PSV 10/ PEEP 8.0/ FiO2 60%. SaO2 90-91%. Vick Pablo updated at bedside by MD and visited patient 09:30-17:00. Case management spoke with son at bedside per son request regarding eventual discharge planning. Patient unable to wean on ventillator settings to FiO2 <50% or PEEP to <8.0. Patient remained intubated with SAT and SBT until approx 16:30. At 16:30 patient turned and repositioned and had increased respiratory effort, RR 25. Per MD, patient re-sedated and vent settings changed by RT back to ACVC+ 18/360/8.0/60%. Patient provided bed bath and hair washed 17:00. High fall precautions in place.
[2025-03-07] VITALS (34 sets, daily range): BP systolic 103–146; BP diastolic 63–92; PULSE 82–102; RESP 15–25; TEMP 35–36.9; O2SAT 87–95; BMI 28.2
[2025-03-07] MEDS: cefEPime HCl/D5W 2 GM/50 ML PIGGYBACK IV ×3 (01:17→17:53)
[2025-03-07] MEDS: fentaNYL citrate/NS 1,000 MCG/100 ML PLAST..BAG 7.5 MCG IVCONT (03:12)
[2025-03-07 05:44] LABS: VBG HCO3 32 mmol/L (22-26); VBG O2 % Saturation 95.0 %
[2025-03-07 05:53] LABS: Venous Blood Gas Refer to POC result
[2025-03-07 05:59] LABS: Albumin Level 3.2 g/dL (3.5-5.0); Anion Gap 14 (12-20); Blood Urea Nitrogen 10 mg/dL (9-16); Calcium 8.3 mg/dL (8.4-10.2); Carbon Dioxide 28 mmol/L (22-29); Chloride 103 mmol/L (96-108); Creatinine Clr Calc Pharmacy 99.5; Estimated Glomerular Filt Rate > 60; Magnesium 1.8 mg/dL (1.6-2.6); Potassium 4.1 mmol/L (3.3-5.1); Sodium 141 mmol/L (135-145)
[2025-03-07 06:31] LABS: Hematocrit 37.2 % (37.0-47.0); Hemoglobin 11.9 g/dl (12.0-16.0); Imm Gran Abs Auto 0.02 X10*3/uL (0.00-0.03); Imm Gran Pct Auto 0.3 % (0.0-0.4); Lymphocytes Absolute Auto 3.1 X10*3/uL (1.2-4.9); MANUAL DIFF FLAG SCAN; Mean Corpuscular HGB Conc 32.0 g/dl (31.0-35.0); Mean Corpuscular Hemoglobin 28.3 pg (27.0-33.0); Mean Corpuscular Volume 88.4 fL (80.0-98.0); NRBC Abs Auto 0.000 X10*3/uL (0.0-0.012); NRBC Pct Auto 0.0 /100WBC (0.0-0.2); PLT CLUMP 1; Red Blood Count 4.21 X10*6/uL (4.20-5.50); SCAN SMEAR FLAG 1
[2025-03-07 06:32] LABS: Platelet Count 117 X10*3/uL (160-400); White Blood Count 7.8 X10*3/uL (4.8-10.8)
[2025-03-07] MEDS: Furosemide 20 MG/2 ML VIAL 10 MG IVPUSH (07:49)
[2025-03-07] MEDS: Chlorhexidine Gluc Oral Rinse 15 ML MOUTHWASH BUCCAL ×3 (07:49→21:08)
--- NOTE | 2025-03-07 08:41 | PM.CCPN ---
Subjective Subjective Date of Service: 03/07/25 Interval History: no significant overnight events Critical Care Time (minutes): 60 Physical Exam Vital Signs: Vital Signs: Last Vital Signs Temp 97.1 F 03/07/25 08:00 Pulse 88 03/07/25 08:00 Resp 16 03/07/25 08:00 BP 118/76 03/07/25 08:00 Pulse Ox 91 L 03/07/25 08:00 O2 Del Method Mechanical Ventil ation 03/07/25 08:00 O2 Flow Rate 4 03/05/25 05:49 FiO2 60 03/07/25 08:01 Oxygen Flow Rate 6 03/05/25 05:49 BMI result Body Mass Index 28.2 Const: Other: intubated, sedated; appreciable spontaneous movements General: comfortable, no acute distress and well developed HEENT: Other: appreciable ecchymoses eyes and nose Eyes: General: appearance normal, both eyes and all related structures Neck: Neck: Yes normal visual inspection, Yes full ROM, Yes no meningeal signs, Yes trachea midline and Yes supple Chest: Chest palpation & inspection: normal inspection of the chest Resp: Other: no appreciable overt rales, rhonchi, wheezing Effort & Inspection: normal respiratory effort Cardio: Rate: regular rate Rhythm: regular rhythm GI: Inspection: Yes normal to inspection, No Abdominal wall edema and No distended Palpation (GI): Soft to palpation, not firm, nontender, no guarding and not rigid Skin: General skin exam: no rashes or lesions noted Neuro: General: tone normal, moves all extremities and no meningeal signs Extrem: Other: appreciable trace pitting edema to bilateral shins General: Yes normal to inspection, Yes full ROM and Yes capillary refill normal Psych: Other: unable to assess Objective Data Labs 03/07/25 05:07 03/07/25 05:07 Labs: Laboratory Results - last 24 hr 03/06/25 03/06/25 03/06/25 10:51 11:30 18:25 WBC RBC Hgb Hct MCV MCH MCHC RDW Plt Count MPV Immature Gran % (Auto) Neut % (Auto) Lymph % (Auto) [place] % (Auto) Eos % (Auto) Baso % (Auto) Lymph # (Auto) [place] # (Auto) Eos # (Auto) Baso # (Auto) Abs Immat Gran (auto) Absolute Neuts (auto) Absolute Nucleated RBC Nucleated RBC % (auto) Smear Tech's Comments VBG pH VBG pCO2 VBG pO2 VBG HCO3 VBG O2 Saturation VBG Base Excess Sodium Potassium Chloride Carbon Dioxide Anion Gap BUN Creatinine Estim Creat Clear Calc Estimated GFR POC Glucose 143 H 113 Random Glucose Calcium Phosphorus Magnesium Albumin Random Vancomycin 14.7 L 03/07/25 03/07/25 05:07 05:39 WBC 7.8 RBC 4.21 Hgb 11.9 L Hct 37.2 MCV 88.4 MCH 28.3 MCHC 32.0 RDW 15.4 Plt Count 117 L MPV 12.5 H Immature Gran % (Auto) 0.3 Neut % (Auto) 49.7 Lymph % (Auto) 40.3 H [place] % (Auto) 7.0 Eos % (Auto) 2.3 Baso % (Auto) 0.4 Lymph # (Auto) 3.1 [place] # (Auto) 0.5 Eos # (Auto) 0.2 Baso # (Auto) 0.0 Abs Immat Gran (auto) 0.02 Absolute Neuts (auto) 3.9 Absolute Nucleated RBC 0.000 Nucleated RBC % (auto) 0.0 Smear Tech's Comments VERIFIED VBG pH 7.68 H* VBG pCO2 27 VBG pO2 66 VBG HCO3 32 H VBG O2 Saturation 95.0 VBG Base Excess 12.3 Sodium 141 Potassium 4.1 Chloride 103 Carbon Dioxide 28 Anion Gap 14 BUN 10 Creatinine 0.67 Estim Creat Clear Calc 99.5 Estimated GFR > 60 POC Glucose Random Glucose 105 Calcium 8.3 L Phosphorus 3.7 Magnesium 1.8 Albumin 3.2 L Random Vancomycin Microbiology Microbiology Results: Microbiology 03/05/25 05:45 Blood - Venous Blood Culture - Preliminary No growth after 24 hours. 03/05/25 06:22 Blood - Venous Blood Culture - Preliminary No growth after 24 hours. Progress Note: A&P Assessment and plan (1) Cardiac arrest: Status: Acute (2) Respiratory failure: Status: Acute Plan Patient is a 57 Y F with hypertension, hyperlipidemia, hypothyroidism, substance misuse on methadone, hepatitis C c/b cirrhosis, and COPD c/b chronic mixed respiratory failure on 4-6L NC baseline, presenting to ED on 03/05 s/p reported fall on 03/04; patient found to be somnolent, given narcan w/o significant improvement; patient subsequently suffered PEA arrest w/ ROSC after 2 minutes; ED trauma work-up grossly unremarkable; CTA C, CT A/P demonstrating MENDY segmental PEs and ileus N: intubated, sedated w/ propofol, fentanyl gtts, wean as tolerated CV: s/p PEA arrest, likely d/t hypoxia; hypotension, likely d/t sedation, norepinephrine gtt, wean as tolerated R: acute on chronic hypercapneic respiratory failure, intubated, wean as tolerated; of note, MENDY segmental PEs though w/o saivta hypotension GI: NPO : c/f volume overload, furosemide gtt; to monitor renal indices/electrolytes H: segmental PEs, treatment-dose enoxaparin ID: empiric vanc/cefepime, follow-up BCx 03/05 E: hypothyroidism, not well-managed, home levothyroxine P: no acute issues S: daily updates given to son Quality Stroke Does the patient have a stroke diagnosis?: No VTE Prior VTE?: Yes VTE Risk Level:: Medical - moderate - high VTE Device Contraindication: N/A - Device Ordered VTE Drug Contraindication: N/A - Med Ordered
[2025-03-07] MEDS: Furosemide 200 MG in 0.9 % Sodium Chloride 80 ML IVCONT (10:02)
--- NOTE | 2025-03-07 10:59 | MHC.CLN ---
F/U PT REMAINS INTUBATED AND SEDATED CURRENTLY NPO IF TF NEEDED; RECOMMEND GLUCERNA 1.2 AT MAX GOAL RATE 35ML/HR WITH 300ML FREE WATER FLUSHES Q 6 HRS TO PROVIDE 1008KCALS (1687KCALS WITH SEDATION; 25KCALS/KG), 50G PROTEIN, 1876ML TOTAL FREE WATER FROM FORMULA AND FLUSHES (28ML/KG) MONITOR TOLERANCE AND LYTES CAN START TRICKLE FEED AT 20ML/HR IF NEEDED FOLLOWING FOR DIET ADVANCEMENT
[2025-03-07 11:48] LABS: Glucose, Whole Blood 124 mg/dL (60-115)
[2025-03-07] MEDS: Lidocaine 4 % Patch ADH..PATCH 2 PATCH TRANSDERMA (13:53)
--- NOTE | 2025-03-07 13:55 | MHC.CM.PN ---
Pt continues care in ICU: remains intubated following arrest: Pt originally from home w/family support. CM to follow for finalization of d/c planning needs
[2025-03-07 18:07] LABS: Glucose, Whole Blood 116 mg/dL (60-115)
--- NOTE | 2025-03-07 18:28 | PC.NURSE ---
Upon initial assessment pt sedated/Intubated. Extubated approx 1330. Now A&O x4, on HFNC, Sinus on tele.Laxis gtt per MAY. Tanner catheter patent/draining, NPO, Active BS, Rectal tube in place. Katalina orbital bruises.? TLC to Right IJ & peripheral IVs.
[2025-03-07 18:43] LABS: Anion Gap 18 (12-20); Blood Urea Nitrogen 10 mg/dL (9-16); Calcium 8.9 mg/dL (8.4-10.2); Carbon Dioxide 38 mmol/L (22-29); Chloride 93 mmol/L (96-108); Creatinine Clr Calc Pharmacy 82.4; Estimated Glomerular Filt Rate > 60; Magnesium 1.6 mg/dL (1.6-2.6); Potassium 3.1 mmol/L (3.3-5.1); Sodium 146 mmol/L (135-145)
--- NOTE | 2025-03-07 18:55 | MHC.SLORD ---
Speech Language Pathology Order Status: Per MD note/order, patient to be evaluated by HERB GROWER 03/08/25.
[2025-03-07] MEDS: Potassium Chloride/H20 10 MEQ/100 ML PIGGYBACK 100 MEQ IV (21:08)
[2025-03-07] MEDS: Potassium Chloride/H20 40 MEQ/100 ML PIGGYBACK 50 MEQ IV (22:13)
[2025-03-08] VITALS (32 sets, daily range): BP systolic 103–148; BP diastolic 64–98; PULSE 73–111; RESP 13–25; TEMP 36.5–37; O2SAT 86–96; BMI 26.1
[2025-03-08] MEDS: Furosemide 200 MG in 0.9 % Sodium Chloride 80 ML IVCONT ×2 (00:14→19:50)
[2025-03-08 00:16] LABS: Glucose, Whole Blood 115 mg/dL (60-115)
[2025-03-08] MEDS: cefEPime HCl/D5W 2 GM/50 ML PIGGYBACK IV ×3 (01:12→18:15)
[2025-03-08 05:10] LABS: VBG HCO3 49 mmol/L (22-26); VBG O2 % Saturation 60.0 %
[2025-03-08 05:19] LABS: MANUAL DIFF FLAG NO
[2025-03-08 05:32] LABS: Hematocrit 46.6 % (37.0-47.0); Hemoglobin 14.3 g/dl (12.0-16.0); Imm Gran Abs Auto 0.03 X10*3/uL (0.00-0.03); Imm Gran Pct Auto 0.4 % (0.0-0.4); Lymphocytes Absolute Auto 1.4 X10*3/uL (1.2-4.9); Mean Corpuscular HGB Conc 30.7 g/dl (31.0-35.0); Mean Corpuscular Hemoglobin 27.4 pg (27.0-33.0); Mean Corpuscular Volume 89.3 fL (80.0-98.0); NRBC Abs Auto 0.000 X10*3/uL (0.0-0.012); NRBC Pct Auto 0.0 /100WBC (0.0-0.2); Platelet Count 125 X10*3/uL (160-400); Red Blood Count 5.22 X10*6/uL (4.20-5.50); White Blood Count 7.9 X10*3/uL (4.8-10.8)
[2025-03-08 05:35] LABS: Venous Blood Gas Refer to POC result
[2025-03-08 05:46] LABS: Albumin Level 4.2 g/dL (3.5-5.0); Anion Gap 18 (12-20); Blood Urea Nitrogen 11 mg/dL (9-16); Calcium 8.9 mg/dL (8.4-10.2); Carbon Dioxide 39 mmol/L (22-29); Chloride 93 mmol/L (96-108); Creatinine Clr Calc Pharmacy 79.4; Estimated Glomerular Filt Rate > 60; Magnesium 1.8 mg/dL (1.6-2.6); Potassium 3.2 mmol/L (3.3-5.1); Sodium 147 mmol/L (135-145)
[2025-03-08 05:56] LABS: Glucose, Whole Blood 123 mg/dL (60-115)
[2025-03-08] MEDS: Potassium Chloride/H20 40 MEQ/100 ML PIGGYBACK 50 MEQ IV (06:26)
--- NOTE | 2025-03-08 07:02 | PC.NURSE ---
CARE ASSUMED 7PM..ALERT..ORIENTED X3...TREVINO...REMAINS HI-ZULEIMA CANNULA 30-40 L/M AND FIO2 60%..SAO2 89-91%...(SAO2 [id number]% PER PROVIDER)....LASIX DRIP 10 MG/HR..CABALLERO DRAINING CLEAR YELLOW URINE...RECTAL TUBE W/O OUTPUT..RECTAL TUBE D/C'D INTACT PER ICU WORKERS COMPENSATION LEGAL SECRETARY YVETTE CEDILLO....KCL REPLACEMENTS IV PER MAY...ATTEMPTED BIPAP 18/5 AND FIO2 60% PER ICU WORKERS COMPENSATION LEGAL SECRETARY...RT PLACED UNDER THE NOSE PILLOW MASK BUT PATIENT ABLE TO TOLERATE BIPAP FOR ONLY 10 ..RETURNED TO PREVIOUS HIFLO CANNULA....PROVIDER AWARE...PRN DILAUDID GIVEN PER MAY FOR COMPLAINTS OF RIB PAIN WITH EFFECT...BENADRYL 12.5 MG IV X1 OVERNIGHT FOR COMPLAINT OF INABILITY TO SLEEP...RESTFUL AFTER BENADRYL
--- NOTE | 2025-03-08 08:24 | P.PNCC_ITS ---
Subjective Subjective Date of Service: 03/08/25 Interval History: no significant overnight events; uneventfully extubated 03/07 Critical Care Time (minutes): 60 Physical Exam 2 Vital Signs: Vital Signs: Last Vital Signs Temp 98.1 F 03/08/25 04:00 Pulse 93 03/08/25 07:00 Resp 19 03/08/25 07:33 BP 143/91 H 03/08/25 07:00 Pulse Ox 93 03/08/25 07:00 O2 Del Method High Flow Nasal C annula 03/08/25 07:00 O2 Flow Rate 30 03/08/25 07:00 FiO2 60 03/08/25 07:00 Oxygen Flow Rate 6 03/05/25 05:49 BMI result Body Mass Index 26.1 Const: General: cooperative, healthy appearing, comfortable, no acute distress, well developed, alert, awake and Physically active O rientation/consciousness: patient oriented x3 HEENT: Other: appreciable ecchymoses eyes and nose, stable Eyes: General: appearance normal, both eyes and all related structures Neck: Neck: Yes normal visual inspection, Yes full ROM, Yes no meningeal signs, Yes trachea midline and Yes supple Chest: Chest palpation & inspection: normal inspection of the chest Resp: Other: breath sounds diminished throughout; some appreciable rales and wheezing; no appreciable overt rhonchi Effort & Inspection: normal respiratory effort Cardio: Rate: regular rate Rhythm: regular rhythm GI: Other: abdomen midly distended, though soft, compressible; no appreciable tenderness throughout Inspection: Yes normal to inspection and No Abdominal wall edema P alpation (GI): not firm, nontender, no guarding and not rigid Skin: General skin exam: no rashes or lesions noted Neuro: General: patient oriented x3, tone normal, moves all extremities, no meningeal signs and no focal motor deficits Extrem: Other: appreciable trace pitting edema to bilateral shins General: Yes normal to inspection, Yes full ROM and Yes capillary refill normal Psych: Appearance: grossly normal Objective Data Labs 03/08/25 05:05 03/08/25 05:05 Labs: Laboratory Results - last 24 hr 03/07/25 03/07/25 03/07/25 10:53 11:42 18:00 WBC RBC Hgb Hct MCV MCH MCHC RDW Plt Count MPV Immature Gran % (Auto) Neut % (Auto) Lymph % (Auto) [place] % (Auto) Eos % (Auto) Baso % (Auto) Lymph # (Auto) [place] # (Auto) Eos # (Auto) Baso # (Auto) Abs Immat Gran (auto) Absolute Neuts (auto) Absolute Nucleated RBC Nucleated RBC % (auto) VBG pH VBG pCO2 VBG pO2 VBG HCO3 VBG O2 Saturation VBG Base Excess Sodium Potassium Chloride Carbon Dioxide Anion Gap BUN Creatinine Estim Creat Clear Calc Estimated GFR POC Glucose 124 H 116 H Fasting Glucose Calcium Phosphorus Magnesium Albumin Random Vancomycin 13.4 L 03/07/25 03/08/25 03/08/25 18:10 00:09 05:05 WBC 7.9 RBC 5.22 D Hgb 14.3 D Hct 46.6 D MCV 89.3 MCH 27.4 MCHC 30.7 L RDW 15.1 Plt Count 125 L MPV 11.1 Immature Gran % (Auto) 0.4 Neut % (Auto) 73.4 H Lymph % (Auto) 17.3 L [place] % (Auto) 5.6 Eos % (Auto) 2.8 Baso % (Auto) 0.5 Lymph # (Auto) 1.4 [place] # (Auto) 0.4 Eos # (Auto) 0.2 Baso # (Auto) 0.0 Abs Immat Gran (auto) 0.03 Absolute Neuts (auto) 5.8 Absolute Nucleated RBC 0.000 Nucleated RBC % (auto) 0.0 VBG pH VBG pCO2 VBG pO2 VBG HCO3 VBG O2 Saturation VBG Base Excess Sodium 146 H 147 H Potassium 3.1 L D 3.2 L Chloride 93 L 93 L Carbon Dioxide 38 H 39 H Anion Gap 18 18 BUN 10 11 Creatinine 0.79 0.82 Estim Creat Clear Calc 82.4 79.4 Estimated GFR > 60 > 60 POC Glucose 115 Fasting Glucose 122 H 112 H Calcium 8.9 D 8.9 Phosphorus 4.3 4.2 Magnesium 1.6 1.8 Albumin 4.2 Random Vancomycin 03/08/25 03/08/25 05:06 05:52 WBC RBC Hgb Hct MCV MCH MCHC RDW Plt Count MPV Immature Gran % (Auto) Neut % (Auto) Lymph % (Auto) [place] % (Auto) Eos % (Auto) Baso % (Auto) Lymph # (Auto) [place] # (Auto) Eos # (Auto) Baso # (Auto) Abs Immat Gran (auto) Absolute Neuts (auto) Absolute Nucleated RBC Nucleated RBC % (auto) VBG pH 7.46 H VBG pCO2 68 VBG pO2 43 VBG HCO3 49 H VBG O2 Saturation 60.0 VBG Base Excess 21.0 Sodium Potassium Chloride Carbon Dioxide Anion Gap BUN Creatinine Estim Creat Clear Calc Estimated GFR POC Glucose 123 H Fasting Glucose Calcium Phosphorus Magnesium Albumin Random Vancomycin Microbiology Microbiology Results: Microbiology 03/05/25 05:45 Blood - Venous Blood Culture - Preliminary No growth after 48 hours. 03/05/25 06:22 Blood - Venous Blood Culture - Preliminary No growth after 48 hours. Progress Note: A&P Assessment and plan (1) Cardiac arrest: Status: Acute (2) Acute and chronic respiratory failure: Status: Acute Plan Patient is a 57 Y F with hypertension, hyperlipidemia, hypothyroidism, substance misuse on methadone, hepatitis C c/b cirrhosis, and COPD c/b chronic mixed respiratory failure on 4-6L NC baseline, presenting to ED on 03/05 s/p reported fall on 03/04; patient found to be somnolent, given narcan w/o significant improvement; ED course c/b aspiration, hypoxia, and subsequent PEA arrest w/ ROSC after 2 minutes; ED trauma work-up w/ nasal fractures; CTA C, CT A/P demonstrating MENDY segmental PEs and ileus N: no acute issues CV: s/p PEA arrest, likely d/t hypoxia d/t aspiration R: acute on chronic hypercapneic respiratory failure, intubated 03/05, extubated 03/07; of note, MENDY segmental PEs though w/o savita hypotension GI: NPO, speech/swallow advance as tolerated : c/f volume overload, furosemide gtt; to monitor renal indices/electrolytes H: segmental PEs, treatment-dose enoxaparin ID: empiric vanc/cefepime, follow-up BCx 03/05 E: hypothyroidism, not well-managed, home levothyroxine MSK: nasal fractures P: no acute issues S: daily updates given to son Quality Stroke Does the patient have a stroke diagnosis?: No VTE Prior VTE?: Yes VTE Risk Level:: Medical - moderate - high VTE Device Contraindication: N/A - Device Ordered VTE Drug Contraindication: N/A - Med Ordered
[2025-03-08] MEDS: Chlorhexidine Gluc Oral Rinse 15 ML MOUTHWASH BUCCAL (08:42)
[2025-03-08] MEDS: Lidocaine 4 % Patch ADH..PATCH 2 PATCH TRANSDERMA (08:42)
--- NOTE | 2025-03-08 09:36 | MHC.CLN ---
F/U PT EXTUBATED REMAINS NPO PAINTER TUMBLING BARREL TO FOLLOW UP TODAY FOR DIET CONSISTENCY WHEN DIET TO ADVANCE, RECOMMEND 1800DM DIET IN ADDITION TO PAINTER TUMBLING BARREL RECOMMENDATIONS FOLLOWING FOR DIET ADVANCEMENT RD CAN BE REACHED DURING OFF HOURS VIA TIGER CONNECT IF NEEDED
[2025-03-08 11:58] LABS: Glucose, Whole Blood 119 mg/dL (60-115)
--- NOTE | 2025-03-08 13:27 | HE.PHANOTE ---
METHADONE VERIFICATION FORM RECEIVED, PATIENT DOSE 56 MG FROM 02/21 TO MAR 06. CLINIC NAME [facility]
--- NOTE | 2025-03-08 13:52 | MHC.CM.PN ---
Pt extubated today and on n/c O2. Pt originally from home w/[employer]PRESENTATIVE [employer] care but may require STR following her arrest and ICU stay. PT eval to be ordered when appropriate. Broad SNF referrals placed in the event she requires placement. CM to follow.
[2025-03-08] MEDS: Albuterol/Iprat 2.5/0.5MG 3 ML AMPUL.NEB INHALE ×2 (15:06→20:57)
--- NOTE | 2025-03-08 17:47 | MHC.SL.SWA ---
Speech Pathologist Impression: Risk of Aspiration, Mild Oral Phase Dysphagia Risk of Aspiration Due to: Recent Extubation Dysphasia Diet Status: Start on NDD1/THIN Liquid Consistency and Strategies for Safe Swallow: Liquid Intake Recommendation: Thin Solid Food Consistency: Dietary Recommendations: Grnd/Mech Altered (NDD2) Additional Modifications to Solid Foods: Patient w/ mild oral phase dysphagia d/t missing bottom dentures, risk of aspiration associated w/ recent extubation. On clinical swallow evaluation, no overt s/s aspiration and good oral clearance. Recommend START on GROUND/MECH ALTERED solids (NDD2) and THIN liquids, pills WHOLE with LIQUID. Patient is able to feed self but may need assistance w/ tray set up, opening of containers, etc. Oral Medication Intake: Whole with Liquid Please contact the pharmacy regarding appropriate crushable or liquid drug formulations that are available whenever modified delivery is recommended. Supervision While Eating and Drinking for Safe Swallow: Tray Set Up Recommendation for Speech: Inpatient Speech Therapy Comment: TREE TRIMMER HELPER will continue to follow daily M-F while inpatient, re-assess for potential upgrade when lower dentures are located Frequency/Duration: M-F Date Range for Service Req: Timeline to reassess: Distribution Dispatcher Clinican/Clinical Fellow: No Supervisory Statement: I have reviewed and agree with the student/clinical fellow's documentation: N/A Speech Language Pathologist: Janneth Barreto M.A., CCC-TREE TRIMMER HELPER
[2025-03-08 18:25] LABS: Glucose, Whole Blood 117 mg/dL (60-115)
--- NOTE | 2025-03-08 19:25 | PC.NURSE ---
A&O x4, on 10L [place] NC, Sinus Rhythm-Tachy on tele. Laxis gtt per MAY. Tanner catheter patent/draining,? LBM: 03/08, Active BS, Katalina orbital bruises.? TLC to Right IJ & peripheral IVs.
[2025-03-08 20:05] LABS: Glucose, Whole Blood 150 mg/dL (60-115)
[2025-03-08 23:29] LABS: Anion Gap 15 (12-20); Blood Urea Nitrogen 15 mg/dL (9-16); Calcium 7.9 mg/dL (8.4-10.2); Carbon Dioxide 33 mmol/L (22-29); Chloride 101 mmol/L (96-108); Creatinine Clr Calc Pharmacy 80.5; Estimated Glomerular Filt Rate > 60; Magnesium 1.7 mg/dL (1.6-2.6); Potassium 2.7 mmol/L (3.3-5.1); Sodium 146 mmol/L (135-145)
[2025-03-09] VITALS (12 sets, daily range): BP systolic 106–132; BP diastolic 57–81; PULSE 95–110; RESP 18–24; TEMP 36.1–37.1; O2SAT 89–94; BMI 28.8
[2025-03-09] MEDS: Potassium Chloride Packet 20 MEQ PACKET 40 MEQ PO (00:01)
[2025-03-09] MEDS: Potassium Chloride/H20 10 MEQ/100 ML PIGGYBACK 100 MEQ IV ×2 (00:07→00:58)
[2025-03-09] MEDS: Albuterol/Iprat 2.5/0.5MG 3 ML AMPUL.NEB INHALE ×5 (00:36→20:23)
[2025-03-09] MEDS: cefEPime HCl/D5W 2 GM/50 ML PIGGYBACK IV ×3 (02:04→17:44)
--- NOTE | 2025-03-09 04:24 | PC.NURSE ---
Addendum entered by Chung Chang RN 03/09/25 05:08: Per patient request, new Health Care Proxy form completed utilizing [employer]. This RN and FIRE EXTINGUISHER TESTER Kira Leija as witness. Patient appointed Joshua Coombs as new HCP, . New HCP form added to chart. Original Note: Upon initial assessment at approximately 1900- (Patient mostly Bahamian speaking, air transport professionals utilized for assessment) Patient A+Ox4, tracks speaker, follows commands, TREVINO. Family member at bedside. Sinus tach on tele, HR 100s. SBP >100. Lasix gtt infusing per MAY. Adventitious lung sounds. Loose productive cough. SpO2> 88% on 10L NC. Denies any SOB. Complaining of headache and left sided chest pain with coughing, PRN Dilaudid given with good effect. Abd large, soft. Atnner in place. Skin overall intact, protective foam to coccyx. At approx. 2230, orders to be transferred to [place] in place. Right IJ TLC removed without incident, xeroform and gauze dressing applied. Tanner catheter removed at 2300 without incident, purewick in place, due to void by 0500 03/09. Report given to BRIANNA Freed and patient transferred to [place] with telemonitor in place at 2330. Patient belongings sent with patient- including cellphone, top dentures, watch, slippers and clothes.
--- NOTE | 2025-03-09 06:12 | PC.NURSE ---
Patient due to void, unable to do so on own. Bladder scanned for 593cc. Provider production lead notified, straight cath order obtained. Straight cath'ed for 550cc clear dena urine. Patient tolerated well.
[2025-03-09] MEDS: methADONE HCl 20 MG/2 ML ORAL.CONC 30 MG PO (07:49)
[2025-03-09] MEDS: Lidocaine 4 % Patch ADH..PATCH 2 PATCH TRANSDERMA (07:51)
[2025-03-09 08:04] LABS: Glucose, Whole Blood 142 mg/dL (60-115)
[2025-03-09 08:09] LABS: Venous Blood Gas Refer to POC result
[2025-03-09 08:10] LABS: Albumin Level 4.3 g/dL (3.5-5.0)
[2025-03-09 08:10] LABS: VBG HCO3 45 mmol/L (22-26); VBG O2 % Saturation 99.0 %
[2025-03-09 08:17] LABS: Blood Urea Nitrogen 21 mg/dL (9-16); Creatinine Clr Calc Pharmacy 70.0; Estimated Glomerular Filt Rate > 60; Magnesium 2.1 mg/dL (1.6-2.6)
[2025-03-09 08:24] LABS: Anion Gap 16 (12-20); Calcium 9.7 mg/dL (8.4-10.2); Carbon Dioxide 35 mmol/L (22-29); Chloride 96 mmol/L (96-108); Potassium 4.0 mmol/L (3.3-5.1); Sodium 143 mmol/L (135-145)
[2025-03-09 10:57] LABS: Glucose, Whole Blood 200 mg/dL (60-115)
[2025-03-09 11:00] LABS: Hematocrit 48.3 % (37.0-47.0); Hemoglobin 14.9 g/dl (12.0-16.0); Imm Gran Abs Auto 0.03 X10*3/uL (0.00-0.03); Imm Gran Pct Auto 0.4 % (0.0-0.4); Lymphocytes Absolute Auto 1.6 X10*3/uL (1.2-4.9); MANUAL DIFF FLAG SCAN; Mean Corpuscular HGB Conc 30.8 g/dl (31.0-35.0); Mean Corpuscular Hemoglobin 27.5 pg (27.0-33.0); Mean Corpuscular Volume 89.3 fL (80.0-98.0); NRBC Abs Auto 0.000 X10*3/uL (0.0-0.012); NRBC Pct Auto 0.0 /100WBC (0.0-0.2); PLT CLUMP 1; Red Blood Count 5.41 X10*6/uL (4.20-5.50); SCAN SMEAR FLAG 1
[2025-03-09 11:07] LABS: White Blood Count 7.0 X10*3/uL (4.8-10.8)
[2025-03-09 11:29] LABS: Platelet Count 132 X10*3/uL (160-400)
--- NOTE | 2025-03-09 11:43 | HE.PHANOTE ---
RE: VANCO DOSING Trough came back as 25.2 mg/L, renal function is worsening. Hold dose, another trough is scheduled @2100 and pended dose of 1500 mg q24h post trough.
--- NOTE | 2025-03-09 15:15 | HO.PM.IMPN ---
Subjective Subjective Date of Service: 03/09/25 Interval History: No acute issues overnight. Continues to improve per patient Review of Systems (son translating) Denies chest pain Denies shortness of breath Denies nausea vomiting diarrhea Denies fever chills Physical Exam Vital Signs: Vital Signs: Last Vital Signs Temp 97.1 F 03/09/25 15:13 Pulse 97 03/09/25 15:13 Resp 20 03/09/25 15:13 BP 121/65 03/09/25 15:13 Pulse Ox 91 L 03/09/25 15:13 O2 Del Method Nasal Cannula 03/09/25 15:13 O2 Flow Rate 7 03/09/25 15:13 FiO2 50 03/08/25 10:00 Oxygen Flow Rate 6 03/05/25 05:49 BMI result Body Mass Index 28.8 Const: Other: Awake alert no acute distress Resp: Other: Clear to auscultation bilaterally no rales rhonchi or wheezes Cardio: Other: No S4; positive S1-S2; no S3 murmurs rubs or gallops GI: Other: Soft nontender nondistended normoactive bowel sounds Extrem: Other: No edema bilaterally Objective Data Active Medications Albuterol/Ipratropium (Albuterol/Iprat 2.5/0.5mg 3 Ml Ampul.Neb) 3 ml INHALE RQ4H [facility] Last Admin: 03/09/25 11:12 Dose: 3 ml Documented By: YURI Dextrose (Dextrose 50 % 25 Gm/50 Ml Syringe) 25 gm IVPUSH Q15M PRN; Protocol PRN Reason: per Hypoglycemia Standing Ord. Enoxaparin Sodium (Enoxaparin Sodium 100 Mg/Ml Syringe) 90 mg 1 mg/kg (90 mg) SUBCUT Q12H [facility] Last Admin: 03/09/25 10:00 Dose: 90 mg Documented By: BERNADETTE Glucose (Glucose Gel 15 Gm Gel..Gram.) 15 gm PO Q15M PRN; Protocol PRN Reason: per Hypoglycemia Standing Ord. Hydromorphone HCl (Hydromorphone Hcl 1 Mg/Ml Syringe) 1 mg IVPUSH Q2H PRN; Protocol PRN Reason: Pain, Moderate(Pain Scale 4-6) Last Admin: 03/09/25 12:48 Dose: 1 mg Documented By: BERNADETTE Cefepime HCl (Maxipime) 2 gm in 50 mls @ 100 mls/hr IV Q8H [facility] Last Infusion: 03/09/25 10:31 Dose: Infused Documented By: BERNADETTE Furosemide 200 mg/ Sodium (Chloride) 100 mls @ 5 mls/hr IVCONT .Q20H [facility] Last Admin: 03/08/25 19:50 Dose: 10 mg/hr, 5 mls/hr Documented By: ALAYNA Vancomycin HCl 1,500 mg/ (Sodium Chloride) 500 mls @ 333.333 mls/hr IV Q24H [facility] Insulin Human Lispro (Insulin Lispro 100 Unit/Ml 3 Ml Vial) 0 unit SUBCUT QIDACHS [facility]; Protocol Levothyroxine Sodium (Levothyroxine Sodium 100 Mcg/5 Ml Vial) 150 mcg IVPUSH DAILY@0600 [facility] Last Admin: 03/09/25 05:19 Dose: 150 mcg Documented By: BLAIRSIHUSSAIN Lidocaine (Lidocaine 4 % Patch Adh..Patch) 2 patch TRANSDERMA DAILY [facility]; Protocol Last Admin: 03/09/25 07:51 Dose: 2 patch Documented By: BERNADETTE Methadone HCl (Methadone Hcl 20 Mg/2 Ml Oral.Conc) 30 mg PO DAILY@0800 [facility] Last Admin: 03/09/25 07:49 Dose: 30 mg Documented By: BERNADETTE Co-signed By: ELIZABETH Naloxone HCl (Naloxone Hcl 0.4 Mg/Ml Vial) 0.2 mg IVPUSH Q2M PRN PRN Reason: Excessive sedation or RR < 8 Pharmacy Consult (Consult Rx Vancomycin Dosing) 1 each MISCELLANE DAILY PRN PRN Reason: Consult order Sodium Chloride (0.9 % Sodium Chloride Flush 3 Ml Syringe) 3 ml IVFLUSH QSHIFT [facility] Last Admin: 03/09/25 15:08 Dose: Not Given Documented By: BERNADETTE Non-Admin Reason: IV Running Labs 03/09/25 10:53 03/09/25 07:47 Labs: Laboratory Results - last 24 hr 03/08/25 03/08/25 03/08/25 17:41 18:22 20:00 MCV MCH MCHC RDW Plt Count MPV Immature Gran % (Auto) Neut % (Auto) Lymph % (Auto) [place] % (Auto) Eos % (Auto) Baso % (Auto) Lymph # (Auto) [place] # (Auto) Eos # (Auto) Baso # (Auto) Abs Immat Gran (auto) Absolute Neuts (auto) Absolute Nucleated RBC Nucleated RBC % (auto) Smear Tech's Comments VBG pH VBG pCO2 VBG pO2 VBG HCO3 VBG O2 Saturation VBG Base Excess Anion Gap 15 Estim Creat Clear Calc 80.5 Estimated GFR > 60 POC Glucose 117 H 150 H Fasting Glucose 98 Calcium 7.9 L D Phosphorus 2.4 L Magnesium 1.7 Albumin Random Vancomycin 03/09/25 03/09/25 03/09/25 07:47 07:53 08:00 MCV MCH MCHC RDW Plt Count MPV Immature Gran % (Auto) Neut % (Auto) Lymph % (Auto) [place] % (Auto) Eos % (Auto) Baso % (Auto) Lymph # (Auto) [place] # (Auto) Eos # (Auto) Baso # (Auto) Abs Immat Gran (auto) Absolute Neuts (auto) Absolute Nucleated RBC Nucleated RBC % (auto) Smear Tech's Comments VBG pH 7.64 H* VBG pCO2 41 VBG pO2 87 VBG HCO3 45 H VBG O2 Saturation 99.0 VBG Base Excess 21.6 Anion Gap 16 Estim Creat Clear Calc 70.0 Estimated GFR > 60 POC Glucose 142 H Fasting Glucose 136 H Calcium 9.7 D Phosphorus 2.9 Magnesium 2.1 Albumin 4.3 Random Vancomycin 03/09/25 03/09/25 10:49 10:53 MCV 89.3 MCH 27.5 MCHC 30.8 L RDW 15.5 Plt Count 132 L MPV 11.4 Immature Gran % (Auto) 0.4 Neut % (Auto) 66.5 Lymph % (Auto) 23.0 [place] % (Auto) 7.0 Eos % (Auto) 2.7 Baso % (Auto) 0.4 Lymph # (Auto) 1.6 [place] # (Auto) 0.5 Eos # (Auto) 0.2 Baso # (Auto) 0.0 Abs Immat Gran (auto) 0.03 Absolute Neuts (auto) 4.6 Absolute Nucleated RBC 0.000 Nucleated RBC % (auto) 0.0 Smear Tech's Comments VERIFIED VBG pH VBG pCO2 VBG pO2 VBG HCO3 VBG O2 Saturation VBG Base Excess Anion Gap Estim Creat Clear Calc Estimated GFR POC Glucose 200 H Fasting Glucose Calcium Phosphorus Magnesium Albumin Random Vancomycin 25.2 H* Assessment and Plan (1) Cardiac arrest: Status: Acute (2) PEA (Pulseless electrical activity): Status: Acute (3) Community acquired bilateral lower lobe pneumonia: Status: Acute Plan Patient is a 57 Y F with hypertension, hyperlipidemia, hypothyroidism, substance misuse on methadone, hepatitis C c/b cirrhosis, and COPD c/b chronic mixed respiratory failure on 4-6L NC baseline, presenting to ED on 03/05 s/p reported fall on 03/04; patient found to be somnolent, given narcan w/o significant improvement; ED course c/b aspiration, hypoxia, and subsequent PEA arrest w/ ROSC after 2 minutes; ED trauma work-up w/ nasal fractures; CTA C, CT A/P demonstrating MENDY segmental PEs and ileus 1. PE a cardiac arrest -stable since transfer out of ICU -monitor without acute dysrhythmias -check 2D echo to verify LVEF 2. Subsegmental pulmonary embolus -Lovenox 1 milligram/kilograms q.12 hours -if stable overnight we will consider switch to Eliquis -titrate O2 to maintain sats greater than equal to 92% 3.HTN -acceptable control on current therapies -adjust as indicated 4.Pneumonia -cefipime/vanco(5) -switch to p.o. when appropriate 4. Polysubstance abuse -continue methadone as ordered Full code Lovenox Requires ongoing hospitalization to treat pulmonary emboli and to follow on telemetry status post cardiac arrest Quality Stroke Does the patient have a stroke diagnosis?: No VTE Prior VTE?: Yes VTE Risk Level:: Medical - moderate - high VTE Device Contraindication: N/A - Device Ordered VTE Drug Contraindication: N/A - Med Ordered
[2025-03-09] MEDS: Furosemide 200 MG in 0.9 % Sodium Chloride 80 ML IVCONT (16:14)
[2025-03-09 16:23] LABS: Glucose, Whole Blood 153 mg/dL (60-115)
[2025-03-09 18:54] LABS: Anion Gap 19 (12-20); Blood Urea Nitrogen 25 mg/dL (9-16); Calcium 9.2 mg/dL (8.4-10.2); Carbon Dioxide 33 mmol/L (22-29); Chloride 94 mmol/L (96-108); Creatinine Clr Calc Pharmacy 54.7; Estimated Glomerular Filt Rate 46; Magnesium 1.8 mg/dL (1.6-2.6); Potassium 4.6 mmol/L (3.3-5.1); Sodium 141 mmol/L (135-145)
[2025-03-09 20:41] LABS: Glucose, Whole Blood 152 mg/dL (60-115)
[2025-03-10] VITALS (16 sets, daily range): BP systolic 115–133; BP diastolic 65–77; PULSE 90–104; RESP 14–20; TEMP 36.1–37.1; O2SAT 88–94; BMI 28.3
[2025-03-10] MEDS: Albuterol/Iprat 2.5/0.5MG 3 ML AMPUL.NEB INHALE ×5 (00:40→19:28)
[2025-03-10] MEDS: 0.9 % Sodium Chloride Flush 3 ML SYRINGE IVFLUSH (01:22)
[2025-03-10] MEDS: cefEPime HCl/D5W 2 GM/50 ML PIGGYBACK IV ×3 (03:39→17:15)
--- NOTE | 2025-03-10 04:14 | HO.SKINPHOTO ---
Location: Chest Category: Bruise
[2025-03-10 06:54] LABS: MANUAL DIFF FLAG NO
[2025-03-10 07:20] LABS: Glucose, Whole Blood 137 mg/dL (60-115)
[2025-03-10 07:21] LABS: Blood Urea Nitrogen 22 mg/dL (9-16); Calcium 9.5 mg/dL (8.4-10.2); Creatinine Clr Calc Pharmacy 64.5; Estimated Glomerular Filt Rate 56; Hematocrit 47.0 % (37.0-47.0); Hemoglobin 14.3 g/dl (12.0-16.0); Imm Gran Abs Auto 0.02 X10*3/uL (0.00-0.03); Imm Gran Pct Auto 0.3 % (0.0-0.4); Lymphocytes Absolute Auto 2.4 X10*3/uL (1.2-4.9); Magnesium 1.8 mg/dL (1.6-2.6); Mean Corpuscular HGB Conc 30.4 g/dl (31.0-35.0); Mean Corpuscular Hemoglobin 27.2 pg (27.0-33.0); Mean Corpuscular Volume 89.4 fL (80.0-98.0); NRBC Abs Auto 0.000 X10*3/uL (0.0-0.012); NRBC Pct Auto 0.0 /100WBC (0.0-0.2); Platelet Count 157 X10*3/uL (160-400); Red Blood Count 5.26 X10*6/uL (4.20-5.50); White Blood Count 7.1 X10*3/uL (4.8-10.8)
[2025-03-10 07:29] LABS: Anion Gap 15 (12-20); Carbon Dioxide 37 mmol/L (22-29); Chloride 92 mmol/L (96-108); Potassium 3.3 mmol/L (3.3-5.1); Sodium 141 mmol/L (135-145)
[2025-03-10] MEDS: methADONE HCl 20 MG/2 ML ORAL.CONC 30 MG PO (08:28)
[2025-03-10] MEDS: Lidocaine 4 % Patch ADH..PATCH 2 PATCH TRANSDERMA (08:28)
[2025-03-10 11:00] LABS: Glucose, Whole Blood 169 mg/dL (60-115)
--- NOTE | 2025-03-10 13:30 | HO.PM.IMPN ---
Subjective Subjective Date of Service: 03/10/25 Interval History: No acute issues overnight. Continues to improve Review of Systems (son translating) Denies chest pain Denies shortness of breath Denies nausea vomiting diarrhea Denies fever chills Physical Exam Vital Signs: Vital Signs: Last Vital Signs Temp 98.8 F 03/10/25 11:05 Pulse 101 H 03/10/25 11:12 Resp 18 03/10/25 11:12 BP 133/74 03/10/25 11:05 Pulse Ox 92 03/10/25 11:05 O2 Del Method Nasal Cannula 03/10/25 11:05 O2 Flow Rate 5 03/10/25 11:05 FiO2 50 03/08/25 10:00 Oxygen Flow Rate 6 03/05/25 05:49 BMI result Body Mass Index 28.3 Const: Other: Awake alert no acute distress Resp: Other: Clear to auscultation bilaterally no rales rhonchi or wheezes Cardio: Other: No S4; positive S1-S2; no S3 murmurs rubs or gallops GI: Other: Soft nontender nondistended normoactive bowel sounds Extrem: Other: No edema bilaterally Objective Data Active Medications Albuterol/Ipratropium (Albuterol/Iprat 2.5/0.5mg 3 Ml Ampul.Neb) 3 ml INHALE RQ4H [facility] Last Admin: 03/10/25 11:10 Dose: 3 ml Documented By: ANASTASIIA Dextrose (Dextrose 50 % 25 Gm/50 Ml Syringe) 25 gm IVPUSH Q15M PRN; Protocol PRN Reason: per Hypoglycemia Standing Ord. Enoxaparin Sodium (Enoxaparin Sodium 100 Mg/Ml Syringe) 90 mg 1 mg/kg (90 mg) SUBCUT Q12H [facility] Last Admin: 03/10/25 11:23 Dose: 90 mg Documented By: SAMUELOPEHANS Fluticasone/Vilanterol (Fluticasone/Vilanterol 200/25 Blst.W.Dev) 1 puff INHALE RDAILY [facility] Furosemide (Furosemide 20 Mg Tablet) 20 mg PO BID [facility]; Protocol Last Admin: 03/10/25 09:36 Dose: 20 mg Documented By: BERNADETTE Glucose (Glucose Gel 15 Gm Gel..Gram.) 15 gm PO Q15M PRN; Protocol PRN Reason: per Hypoglycemia Standing Ord. Hydromorphone HCl (Hydromorphone Hcl 1 Mg/Ml Syringe) 1 mg IVPUSH Q2H PRN; Protocol PRN Reason: Pain, Moderate(Pain Scale 4-6) Last Admin: 03/10/25 13:09 Dose: 1 mg Documented By: BERNADETTE Hydroxyzine HCl (Hydroxyzine Hcl 25 Mg Tablet) 25 mg PO BEDTIME [facility] Cefepime HCl (Maxipime) 2 gm in 50 mls @ 100 mls/hr IV Q8H [facility] Last Infusion: 03/10/25 10:09 Dose: Infused Documented By: BERNADETTE Vancomycin HCl 1,500 mg/ (Sodium Chloride) 500 mls @ 333.333 mls/hr IV Q24H [facility] Last Infusion: 03/10/25 03:36 Dose: Infused Documented By: ALAYNA Insulin Human Lispro (Insulin Lispro 100 Unit/Ml 3 Ml Vial) 0 unit SUBCUT QIDACHS [facility]; Protocol Last Admin: 03/10/25 11:23 Dose: 2 unit Documented By: BERNADETTE Levothyroxine Sodium (Levothyroxine Sodium 25 Mcg Tablet) 25 mcg PO DAILY@0600 [facility] Levothyroxine Sodium (Levothyroxine Sodium 200 Mcg Tablet) 200 mcg PO DAILY@0600 [facility] Lidocaine (Lidocaine 4 % Patch Adh..Patch) 2 patch TRANSDERMA DAILY [facility]; Protocol Last Admin: 03/10/25 08:28 Dose: 2 patch Documented By: BERNADETTE Metformin HCl (Metformin Hcl Er 500 Mg Tab.Er.24h) 500 mg PO BID [facility] Last Admin: 03/10/25 09:36 Dose: 500 mg Documented By: BERNADETTE Methadone HCl (Methadone Hcl 20 Mg/2 Ml Oral.Conc) 30 mg PO DAILY@0800 [facility] Last Admin: 03/10/25 08:28 Dose: 30 mg Documented By: BERNADETTE Co-signed By: JATINDER Naloxone HCl (Naloxone Hcl 0.4 Mg/Ml Vial) 0.2 mg IVPUSH Q2M PRN PRN Reason: Excessive sedation or RR < 8 Omeprazole (Omeprazole 20 Mg Capsule.Dr) 20 mg PO DAILY@1200 [facility] Last Admin: 03/10/25 11:23 Dose: 20 mg Documented By: BERNADETTE Pharmacy Consult (Consult Rx Vancomycin Dosing) 1 each MISCELLANE DAILY PRN PRN Reason: Consult order Sertraline HCl (Sertraline Hcl 100 Mg Tablet) 100 mg PO DAILY@1200 [facility] Last Admin: 03/10/25 11:23 Dose: 100 mg Documented By: BERNADETTE Sertraline HCl (Sertraline Hcl 25 Mg Tablet) 25 mg PO DAILY [facility] Last Admin: 03/10/25 09:36 Dose: 25 mg Documented By: BERNADETTE Sodium Chloride (0.9 % Sodium Chloride Flush 3 Ml Syringe) 3 ml IVFLUSH QSHIFT [facility] Last Admin: 03/10/25 08:20 Dose: Not Given Documented By: BERNADETTE Non-Admin Reason: IV Running Labs 03/10/25 06:01 03/10/25 06:01 Labs: Laboratory Results - last 24 hr 03/09/25 03/09/25 03/09/25 16:17 17:59 20:34 MCV MCH MCHC RDW Plt Count MPV Immature Gran % (Auto) Neut % (Auto) Lymph % (Auto) [place] % (Auto) Eos % (Auto) Baso % (Auto) Lymph # (Auto) [place] # (Auto) Eos # (Auto) Baso # (Auto) Abs Immat Gran (auto) Absolute Neuts (auto) Absolute Nucleated RBC Nucleated RBC % (auto) Anion Gap 19 Estim Creat Clear Calc 54.7 Estimated GFR 46 POC Glucose 153 H 152 H Fasting Glucose 164 H Calcium 9.2 Phosphorus 2.8 Magnesium 1.8 Random Vancomycin 03/09/25 03/10/25 03/10/25 21:11 06:01 07:05 MCV 89.4 MCH 27.2 MCHC 30.4 L RDW 15.4 Plt Count 157 L MPV 11.9 Immature Gran % (Auto) 0.3 Neut % (Auto) 51.3 Lymph % (Auto) 34.2 [place] % (Auto) 9.6 Eos % (Auto) 4.0 Baso % (Auto) 0.6 Lymph # (Auto) 2.4 [place] # (Auto) 0.7 Eos # (Auto) 0.3 Baso # (Auto) 0.0 Abs Immat Gran (auto) 0.02 Absolute Neuts (auto) 3.6 Absolute Nucleated RBC 0.000 Nucleated RBC % (auto) 0.0 Anion Gap 15 Estim Creat Clear Calc 64.5 Estimated GFR 56 POC Glucose 137 H Fasting Glucose 138 H Calcium 9.5 Phosphorus 3.4 Magnesium 1.8 Random Vancomycin 14.9 L 03/10/25 10:49 MCV MCH MCHC RDW Plt Count MPV Immature Gran % (Auto) Neut % (Auto) Lymph % (Auto) [place] % (Auto) Eos % (Auto) Baso % (Auto) Lymph # (Auto) [place] # (Auto) Eos # (Auto) Baso # (Auto) Abs Immat Gran (auto) Absolute Neuts (auto) Absolute Nucleated RBC Nucleated RBC % (auto) Anion Gap Estim Creat Clear Calc Estimated GFR POC Glucose 169 H Fasting Glucose Calcium Phosphorus Magnesium Random Vancomycin Microbiology Microbiology Results: Microbiology 03/05/25 05:45 Blood Culture - Final Blood - Venous No growth after 5 days. 03/05/25 06:22 Blood Culture - Final Blood - Venous No growth after 5 days. Assessment and Plan (1) PEA (Pulseless electrical activity): Status: Acute (2) Pulmonary embolism: Status: Acute Plan Patient is a 57 Y F with hypertension, hyperlipidemia, hypothyroidism, substance misuse on methadone, hepatitis C c/b cirrhosis, and COPD c/b chronic mixed respiratory failure on 4-6L NC baseline, presenting to ED on 03/05 s/p reported fall on 03/04; patient found to be somnolent, given narcan w/o significant improvement; ED course c/b aspiration, hypoxia, and subsequent PEA arrest w/ ROSC after 2 minutes; ED trauma work-up w/ nasal fractures; CTA C, CT A/P demonstrating MENDY segmental PEs and ileus 1. PEA cardiac arrest -stable since transfer out of ICU -monitor without acute dysrhythmias -check 2D echo to verify LVEF..am 2. Subsegmental pulmonary embolus -DC Lovenox -Eliquis 10 mg BID x 14 days...them 5 mg BID -titrate O2 to maintain sats greater than equal to 92% 3.HTN -acceptable control on current therapies -adjust as indicated 4.Pneumonia -cefipime/vanco(6) -switch to p.o. when appropriate 4. Polysubstance abuse -continue methadone as ordered Full code Eliquis Requires ongoing hospitalization to treat pulmonary emboli and to follow on telemetry status post cardiac arrest Quality Stroke Does the patient have a stroke diagnosis?: No VTE Prior VTE?: Yes VTE Risk Level:: Medical - moderate - high VTE Device Contraindication: N/A - Device Ordered VTE Drug Contraindication: N/A - Med Ordered
[2025-03-10 16:10] LABS: Glucose, Whole Blood 109 mg/dL (60-115)
[2025-03-10 20:35] LABS: Glucose, Whole Blood 139 mg/dL (60-115)
[2025-03-10 21:11] LABS: Anion Gap 16 (12-20); Blood Urea Nitrogen 29 mg/dL (9-16); Calcium 9.9 mg/dL (8.4-10.2); Carbon Dioxide 37 mmol/L (22-29); Chloride 92 mmol/L (96-108); Creatinine Clr Calc Pharmacy 53.0; Estimated Glomerular Filt Rate 45; Magnesium 2.0 mg/dL (1.6-2.6); Potassium 3.6 mmol/L (3.3-5.1); Sodium 141 mmol/L (135-145)
[2025-03-11] VITALS (10 sets, daily range): BP systolic 105–130; BP diastolic 58–92; PULSE 89–98; RESP 16–20; TEMP 36–36.3; O2SAT 90–94; BMI 31.4
[2025-03-11] MEDS: 0.9 % Sodium Chloride Flush 3 ML SYRINGE IVFLUSH ×2 (00:04→08:05)
[2025-03-11] MEDS: Albuterol/Iprat 2.5/0.5MG 3 ML AMPUL.NEB INHALE ×4 (00:42→11:06)
[2025-03-11] MEDS: cefEPime HCl/D5W 2 GM/50 ML PIGGYBACK IV ×2 (00:59→09:13)
[2025-03-11 06:40] LABS: MANUAL DIFF FLAG NO
[2025-03-11 06:44] LABS: Hematocrit 45.4 % (37.0-47.0); Hemoglobin 13.9 g/dl (12.0-16.0); Imm Gran Abs Auto 0.03 X10*3/uL (0.00-0.03); Imm Gran Pct Auto 0.5 % (0.0-0.4); Lymphocytes Absolute Auto 2.0 X10*3/uL (1.2-4.9); Mean Corpuscular HGB Conc 30.6 g/dl (31.0-35.0); Mean Corpuscular Hemoglobin 27.3 pg (27.0-33.0); Mean Corpuscular Volume 89.2 fL (80.0-98.0); NRBC Abs Auto 0.000 X10*3/uL (0.0-0.012); NRBC Pct Auto 0.0 /100WBC (0.0-0.2); Platelet Count 155 X10*3/uL (160-400); Red Blood Count 5.09 X10*6/uL (4.20-5.50); White Blood Count 5.9 X10*3/uL (4.8-10.8)
[2025-03-11 07:00] LABS: Anion Gap 13 (12-20); Blood Urea Nitrogen 31 mg/dL (9-16); Calcium 9.5 mg/dL (8.4-10.2); Carbon Dioxide 38 mmol/L (22-29); Chloride 95 mmol/L (96-108); Creatinine Clr Calc Pharmacy 66.6; Estimated Glomerular Filt Rate 58; Magnesium 1.9 mg/dL (1.6-2.6); Potassium 3.5 mmol/L (3.3-5.1); Sodium 142 mmol/L (135-145)
[2025-03-11] MEDS: Fluticasone/Vilanterol 200/25 BLST.W.DEV 1 PUFF INHALE (07:35)
[2025-03-11 07:58] LABS: Glucose, Whole Blood 151 mg/dL (60-115)
[2025-03-11] MEDS: Lidocaine 4 % Patch ADH..PATCH 2 PATCH TRANSDERMA (09:13)
[2025-03-11] MEDS: methADONE HCl 20 MG/2 ML ORAL.CONC 30 MG PO (09:14)
--- NOTE | 2025-03-11 10:35 | MHC.CM.PN ---
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 and her Son is willing to stay with her as well. Patient also plans to contact [employer] to be eval'd for increased [employer] SALES ASSISTANT hours.MD is aware.
[2025-03-11 11:49] LABS: Glucose, Whole Blood 132 mg/dL (60-115)
--- NOTE | 2025-03-11 13:55 | P.DS_ITS ---
DS: Providers Provider Date of admission: 03/05/25 09:09 Date of discharge: 03/11/25 Primary care physician: Cathleen Sears MD DS: Diagnosis Discharge Diagnosis (1) PEA (Pulseless electrical activity): Status: Acute (2) Pulmonary embolism: Status: Acute DS: Summary Hospital Course Hospital Course: 57 Y F with hypertension, hyperlipidemia, hypothyroidism, substance misuse on methadone, hepatitis C c/b cirrhosis, and COPD c/b chronic mixed respiratory failure on 4-6L NC baseline, presenting to ED on 03/05 s/p reported fall on 03/04; patient found to be somnolent, given narcan w/o significant improvement; patient subsequently suffered PEA arrest w/ ROSC after 2 minutes; ED trauma work-up grossly unremarkable; CTA C, CT A/P demonstrating segmental PEs and ileus. [facility] Patient intubated and transferred to ICU. Over the course of the next 5 days she was treated with empiric vancomycin and cefepime along with Lovenox 1 milligram/kilogram twice daily for clots. She was successfully extubated and transferred to telemetry. Her O2 was titrated back to her baseline. Echocardiogram essentially showed a normal LVEF. Patient was seen by Physical therapy who recommended rehab however patient would have to go to [facility] facility given her methadone use. Discussed with patient and son; patient's son states they will take patient home and continue with her care. VNA for nursing and home PT has been requested Time Attestation Discharge Coordination Time (in mins): 35 Quality: Safe Use of Opioids Does Pt have an Active Cancer Diagnosis on the Problem List?: No Quality: Stroke Does the patient have a stroke diagnosis?: No Physical Exam Vital Signs: Vital Signs: Last Vital Signs Temp 97.4 F 03/11/25 12:00 Pulse 98 03/11/25 12:00 Resp 20 03/11/25 12:00 BP 105/58 L 03/11/25 12:00 Pulse Ox 90 L 03/11/25 12:00 O2 Del Method Nasal Cannula 03/11/25 12:00 O2 Flow Rate 5 03/11/25 12:00 FiO2 40 03/11/25 03:57 Oxygen Flow Rate 6 03/05/25 05:49 BMI result Body Mass Index 31.4 Const: Other: Awake alert no acute distress Resp: Other: Clear to auscultation bilaterally no rales rhonchi or wheezes Cardio: Other: No S4; positive S1-S2; no S3 murmurs rubs or gallops GI: Other: Soft nontender nondistended normoactive bowel sounds Extrem: Other: No edema bilaterally DS: Data Data Completed and Pending Completed studies during hospitalization [Text1]: Procedures Assistance with Respiratory Ventilation, Less than 24 Consecutive Hours, Continuous Positive Airway Pressure (01/28/25) Insertion of Endotracheal Airway into Trachea, Via Natural or Artificial Opening (10/25/23) Insertion of Infusion Device into Superior Vena Cava, Percutaneous Approach (06/30/23) Introduction of Vasopressor into Peripheral Vein, Percutaneous Approach (10/25/23) Respiratory Ventilation, 24-96 Consecutive Hours (10/25/23) Respiratory Ventilation, Less than 24 Consecutive Hours (06/30/23) Ultrasonography of Superior Vena Cava, Guidance (06/30/23) Labs on day of discharge: Laboratory Results - last 24 hr 03/10/25 03/10/25 03/10/25 16:03 20:28 20:41 WBC RBC Hgb Hct MCV MCH MCHC RDW Plt Count MPV Immature Gran % (Auto) Neut % (Auto) Lymph % (Auto) [place] % (Auto) Eos % (Auto) Baso % (Auto) Lymph # (Auto) [place] # (Auto) Eos # (Auto) Baso # (Auto) Abs Immat Gran (auto) Absolute Neuts (auto) Absolute Nucleated RBC Nucleated RBC % (auto) Sodium 141 Potassium 3.6 Chloride 92 L Carbon Dioxide 37 H Anion Gap 16 BUN 29 H Creatinine 1.23 Estim Creat Clear Calc 53.0 Estimated GFR 45 POC Glucose 109 139 H Fasting Glucose 132 H Calcium 9.9 Phosphorus 3.7 Magnesium 2.0 Random Vancomycin 16.7 03/11/25 03/11/25 03/11/25 06:22 07:53 11:41 WBC 5.9 RBC 5.09 Hgb 13.9 Hct 45.4 MCV 89.2 MCH 27.3 MCHC 30.6 L RDW 15.1 Plt Count 155 L MPV 11.5 Immature Gran % (Auto) 0.5 H Neut % (Auto) 49.8 Lymph % (Auto) 34.4 [place] % (Auto) 9.4 Eos % (Auto) 5.4 H Baso % (Auto) 0.5 Lymph # (Auto) 2.0 [place] # (Auto) 0.6 Eos # (Auto) 0.3 Baso # (Auto) 0.0 Abs Immat Gran (auto) 0.03 Absolute Neuts (auto) 2.9 Absolute Nucleated RBC 0.000 Nucleated RBC % (auto) 0.0 Sodium 142 Potassium 3.5 Chloride 95 L Carbon Dioxide 38 H Anion Gap 13 BUN 31 H Creatinine 0.98 Estim Creat Clear Calc 66.6 Estimated GFR 58 POC Glucose 151 H 132 H Fasting Glucose 137 H Calcium 9.5 Phosphorus 3.1 Magnesium 1.9 Random Vancomycin Discharge Plan Discharge Anticipated Discharge Date/Time: 03/11/25 13:46 Patient Disposition: Home Health Service Discharge Diagnosis: Status post cardiac arrest Referrals: Cathleen Sears MD [Primary Care Provider, Internal Medicine] - 1 Week Discharge Medications: New cefuroxime axetil 500 mg tablet 500 mg PO BID Qty: 14 0RF oxycodone 10 mg tablet 10 mg PO QID PRN (Reason: pain) Qty: 20 0RF Rx Instructions: Partial Fill upon patient request. Eliquis DVT-PE Treat 30D Start 5 mg (74 tabs) tablets,dose pack 5 mg PO BID Qty: 74 0RF Rx Instructions: Two tabs (10 mg) twice daily for 2 weeks followed by 1 tab (5 mg) twice daily Continued ipratropium-albuterol 0.5 mg-3 mg(2.5 mg base)/3 mL solution for nebulization 3 ml inhalation QID PRN (Reason: wheezing) sertraline 100 mg Tablet 100 mg PO DAILY@1200 cetirizine 10 mg tablet 5 mg PO DAILY hydroxyzine pamoate 25 mg capsule 25 mg PO BEDTIME simethicone [Gas Relief (simethicone)] 180 mg capsule 180 mg PO BID amlodipine 5 mg tablet 5 mg PO DAILY levothyroxine 25 mcg tablet 25 mcg PO DAILY@0600 fluticasone propionate 50 mcg/actuation spray,suspension 2 spray intranasal DAILY pantoprazole 40 mg tablet,delayed release (DR/EC) 40 mg PO DAILY@1200 furosemide 20 mg tablet 20 mg PO BID albuterol sulfate [Ventolin HFA] 90 mcg/actuation HFA aerosol inhaler 2 puff INHALATION Q6H PRN (Reason: wheezing) acetaminophen 500 mg tablet 1,000 mg PO Q8H PRN (Reason: moderate pain) methadone 10 mg/mL concentrate 56 mg PO DAILY fluticasone furoate-vilanterol [Breo Ellipta] 200-25 mcg/dose Blister With Device 1 inh inhalation DAILY Qty: 60 0RF metformin 500 mg tablet extended release 24 hr 500 mg PO BID rosuvastatin 20 mg Tablet 20 mg PO DAILY lidocaine 5 % adhesive patch,medicated 1 patch topical DAILY MDD 12 hrs on & 12 hrs off PRN (Reason: Pain) sertraline 25 mg tablet 25 mg PO DAILY celecoxib 100 mg capsule 100 mg PO BID PRN (Reason: mild pain) perphenazine 4 mg tablet 4 mg PO BEDTIME Incruse Ellipta 62.5 mcg/actuation blister with device 1 inh inhalation DAILY levothyroxine 200 mcg tablet 200 mcg PO DAILY@0600 sennosides [senna] 8.6 mg tablet 17.2 mg PO BEDTIME PRN (Reason: constipation) Qty: 60 6RF famotidine 40 mg tablet 40 mg PO BEDTIME Qty: 30 6RF docusate sodium 100 mg capsule 100 mg PO BID PRN (Reason: Constipation) Qty: 60 6RF Discharge Orders: Discharge Order (Routine); Ordered 03/11/25 Ordered By: Julio Cobb Diet: Advance to usual diet Activity on Discharge: As tolerated Stand Alone Forms: Patient Portal Discharge page Print Language: Trinidadian Care Plan Goals: Complete course of Ceftin twice daily for 10 days and utilize oxycodone for pain. He will be started on Eliquis for blood clots in your lungs. Finish the starter kit as outlined and then call your physician for further refills. You will be on this for at least 6 months or as per primary care decides Health Concerns: Resume all other medications as taken prior to hospitalization Plan of Treatment: Follow up with the PCP 1-2 weeks Assessment: See discharge summary
--- NOTE | 2025-03-11 14:17 | MHC.CM.PN ---
Patient has been medically cleared for dc to home today with services. Patient is active with Phil [facility]BLEDOA, who has been notified of today's dc.[employer] [employer] will transport.
== END 2025-03-11 15:58 | disposition home health service (06) | DRG 134 ==
LOC: HO.ED 08:52 → HO.EDOVER 09:20 → HO.ICU 09:23 → HO.IMC 03-08 22:42
PROVIDERS: Nurse Practitioner Family; Admitting Provider Internal Medicine Critical Care Medicine; Emergency Provider Emergency Medicine Emergency Medical Services; PCP Family Medicine; Visit Provider Hospitalist
DX: I26.99 Other pulmonary embolism without acute cor pulmonale (principal); I46.9 Cardiac arrest, cause unspecified; J18.9 Pneumonia, unspecified organism; J44.0 Chronic obstructive pulmonary disease with (acute) lower respiratory infection; Z99.81 Dependence on supplemental oxygen; E03.9 Hypothyroidism, unspecified; F11.20 Opioid dependence, uncomplicated; F17.210 Nicotine dependence, cigarettes, uncomplicated; S02.2XXA Fracture of nasal bones, initial encounter for closed fracture; K74.60 Unspecified cirrhosis of liver; F19.10 Other psychoactive substance abuse, uncomplicated; W19.XXXA Unspecified fall, initial encounter; Z71.6 Tobacco abuse counseling; Z20.822 Contact with and (suspected) exposure to COVID-19; Z79.51 Long term (current) use of inhaled steroids; Z79.84 Long term (current) use of oral hypoglycemic drugs; Z79.899 Other long term (current) drug therapy
CPT/HCPCS: 36415; 70450; 70486; 71045; 71275; 72125; 74018; 74177; 80048; 80053; 80143; 80179; 80202; 80307; 81001; 82040; 82140; 82550; 82803; 82947; 83605; 83690; 83735; 84100; 84439; 84443; 84484; 85025; 85610; 85730; 87040; 87637; 92610; 93005; 93306; 94002; 94003; 94640; 94660; 97116; 97162; 97166; 97530; 97535; 99284; J0613; J0651; J0692; J1171; J1200; J1650; J1938; J2250; J2312; J2405; J2470; J2704; J3010; J3373; J3374; J3480; P9047; Q9957; Q9967

== ENCOUNTER → 2025-03-05 05:58 | Outpatient (BNV) | payer MEDICAID, SELFPAY | PROVIDERS: Emergency Provider Emergency Medicine Emergency Medical Services; Visit Provider Internal Medicine Cardiovascular Disease | DX: I50.9 Heart failure, unspecified (principal); I51.7 Cardiomegaly; I49.1 Atrial premature depolarization | CPT/HCPCS: 93010; 93306 ==

== ENCOUNTER → 2025-03-05 06:42 | Outpatient (BNV) | payer MEDICAID, SELFPAY | PROVIDERS: Emergency Provider Emergency Medicine Emergency Medical Services; Visit Provider Radiology Diagnostic Radiology | DX: R41.82 Altered mental status, unspecified (principal); M47.812 Spondylosis without myelopathy or radiculopathy, cervical region; J43.2 Centrilobular emphysema; J43.8 Other emphysema; J18.9 Pneumonia, unspecified organism; J43.9 Emphysema, unspecified; J96.90 Respiratory failure, unspecified, unspecified whether with hypoxia or hypercapnia; S02.2XXA Fracture of nasal bones, initial encounter for closed fracture; J32.9 Chronic sinusitis, unspecified; S00.83XA Contusion of other part of head, initial encounter; Z04.3 Encounter for examination and observation following other accident; Z45.2 Encounter for adjustment and management of vascular access device; J44.9 Chronic obstructive pulmonary disease, unspecified; R14.0 Abdominal distension (gaseous) | CPT/HCPCS: 70450; 70486; 71045; 71275; 72125; 74018; 74177 ==

== ENCOUNTER → 2025-03-05 09:09 | Outpatient (BNV) | payer MEDICAID, SELFPAY | PROVIDERS: Admitting Provider Internal Medicine Critical Care Medicine; Emergency Provider Emergency Medicine Emergency Medical Services; Visit Provider Internal Medicine Critical Care Medicine | DX: I46.9 Cardiac arrest, cause unspecified (principal); J96.22 Acute and chronic respiratory failure with hypercapnia | CPT/HCPCS: 36556; 99223; 99291 ==

== ENCOUNTER → 2025-03-05 09:09 | Outpatient (BNV) | payer MEDICAID, SELFPAY | PROVIDERS: Admitting Provider Internal Medicine Critical Care Medicine; Emergency Provider Emergency Medicine Emergency Medical Services; PCP Family Medicine; Visit Provider Hospitalist | DX: I46.9 Cardiac arrest, cause unspecified (principal); I26.99 Other pulmonary embolism without acute cor pulmonale | CPT/HCPCS: 99233; 99239 ==